=== PATIENT | male | born 1970 | race Caucasian/White ===

== ENCOUNTER → 2016-06-01 | Outpatient (CLI) | payer BC, MEDICARE ==
[2015-04-01 10:45] VITALS: BP 130/62
[~2016-06-01] MED LIST: BENA1TAB5 PO; CLON0.5T PO; DOXE50CA PO; FERR-26 PO; FLUO40CA2 PO; HYDR-2762 PO; INSU100C4 SQ; INSU100V13 SQ; LEVO100T PO; LEVO25TA2 PO; LITH150C PO; LITH450T PO; META800T21 PO; OXYC-244 PO; POTA20TA12 PO; SITA1TAB11 PO; TIZA4CAP3 PO; WARF2TAB7 PO; ZIPR20CA2 PO; ZIPR40CA2 PO; doxipen; doxipen PO; flexeril; geodon PO; hydrocodone
--- NOTE | 2016-06-02 13:56 | PAIN ---
DATE OF SERVICE: 06/01/2016 DIAGNOSES: Lumbar degenerative disk disease, lumbar spinal stenosis and spondylosis. HISTORY OF PRESENT ILLNESS: The patient is a 46-year-old male who returns for followup, status post medication management with oxycodone and Zanaflex. The patient reports he is doing very well with this, still has some days it worsen, most days doing well, reports about 80% improvement with medications on his own without side effects. The patient reports some worse pain with sitting across, low back into the hips primarily, but it is 8 on a scale of 10 with sitting. The patient reports no new motor or sensory deficits. No new bowel or bladder incontinence or other complaints. He has been doing very well on his medication regimen with oxycodone up to 4 days again without side effects and has had appropriate K-TRACS reporting today and appropriate urinalysis today. PHYSICAL EXAMINATION: VITAL SIGNS: The patient's blood pressure 134/88, pulse 66, respirations 18, temperature is 97.4 degrees Fahrenheit. Weight is 298 pounds. GENERAL: The patient is awake, alert, oriented, appropriate, very pleasant demeanor. HEENT: Head shows normocephalic, atraumatic. Extraocular movements are intact, symmetrical. Oral cavity, mucous membranes are moist and pink. Dentition is intact. NECK: Shows anterior throat supple without palpable lymphadenopathy. Swallow reflex is symmetrical. Neck shows full rotation and motion of cervical spine without difficulty or tenderness including extension and flexion. CHEST: Shows normal inspection. Breath sounds are clear to auscultation bilaterally. HEART: Shows S1, S2 clear. No murmurs auscultated. ABDOMEN: Soft, nontender, nondistended, obese without ___ rebound or guarding demonstrate. BACK: The patient's back shows spine grossly midline. ____ thoracic kyphosis. Mild flattening ____ lumbar lordotic curve. No previous bruises, lesions, rashes or scars noted. Lumbar paraspinous musculature appears roughly symmetrical on inspection. With palpation it is moderately tender in the middle ____ distribution of the paraspinous muscles bilaterally, but without radiation. No tenderness over the spinous process, sacrum or sacroiliac regions. The patient has good rotation and motion ____ extension and flexion without significant pain reported. Lower extremity show deep tendon reflexes 1+ in the patellar and tendo calcaneus tendons. Motor exam is strong with 5/5 dorsiflexion and extension, quadriceps and hamstring flexion is intact. Peripheral pulses are 1+ posterior tibial and dorsalis pedis pulses. No peripheral edema is noted bilaterally. Options were discussed with the patient. The patient's old chart was reviewed as his current medication regimen and updated. Current review of systems updated today as well. We will refill the patient's oxycodone 7.5 mg with instructions, side effects to be aware of, also Zanaflex 1-2 tablets 4 mg as needed up to 3 times daily. The patient was cautioned as to the side effects of the medications, was also encouraged to maintain hydration and avoid any constipation issues as he is not reporting any at this time, but also encouraged to increase heat and stretching with his low back and walking and stretching as well as tolerated and exercise as tolerated. The patient understands and agrees. We will follow up in approximately 90 days or sooner if necessary. KOFI BYRD MD DR: AIDEN/ritesh JOB#: [id number] / [id number]
== END | disposition home or self-care (01) ==
LOC: PNCL 11:10
PROVIDERS: ATTEND Anesthesiology
DX: M51.36 Other intervertebral disc degeneration, lumbar region (principal); M48.06 Spinal stenosis, lumbar region; M47.896 Other spondylosis, lumbar region
CPT/HCPCS: G0463

== ENCOUNTER → 2016-08-16 | Outpatient (CLI) | payer BC, MEDICARE ==
[2015-04-01 10:45] VITALS: BP 130/62
[~2016-08-16] MED LIST changes: -LEVO25TA2 PO; +LEVO25TA55 PO
--- NOTE | 2016-08-16 16:48 | KCIC ---
PROCEDURE MR of the right shoulder HISTORY Right shoulder pain. Limited range of motion and stiffness. TECHNIQUE Routine multiplanar sequences are obtained. COMPARISON None FINDINGS The acromioclavicular joint is mildly degenerative. There is mild to moderate motion degradation. Diffuse thickening and increased signal of the rotator cuff compatible with tendinosis. Small undersurface tear of the anterior supraspinatus tendon footprint about 30 percent deep and 12 mm AP diameter. No full-thickness rotator cuff tear. Mild partial tearing at the upper subscapularis tendon attachment. No significant subdeltoid bursal effusion. Trace glenohumeral joint fluid. Severe glenohumeral joint primary osteoarthritis. Tearing of the superior, posterior, anterior and probably inferior labrum. Biceps tendinosis with thickening and signal. Partial tearing at the bicipital groove entrance but no complete rupture. Small intraosseous cyst at the greater tuberosity. No evidence acute macro fracture or aggressive bone destruction. IMPRESSION 1. Rotator cuff tendinosis. Small partial undersurface tear of the anterior supraspinatus footprint. Partial tear of upper subscapularis tendon insertion. 2. Circumferential or nearly circumferential labral tear. 3. Severe primary osteoarthritis at the glenohumeral joint. 4. Biceps tendinosis with partial tear. Electronically signed by: Adam Mills MD (August 16, 2016 16:46:47)
== END | disposition home or self-care (01) ==
LOC: KCIC MRI 15:40
PROVIDERS: ATTEND Nurse Practitioner Family
DX: M19.011 Primary osteoarthritis, right shoulder (principal)
CPT/HCPCS: 73221

== ENCOUNTER → 2016-08-19 | Outpatient (CLI) | payer BC, MEDICARE ==
[2015-04-01 10:45] VITALS: BP 130/62
--- NOTE | 2016-08-19 11:54 | PAIN ---
DATE OF SERVICE: 08/19/2016 DIAGNOSES: Lumbar degenerative disk disease with lumbar spinal stenosis and spondylosis. HISTORY OF PRESENT ILLNESS: The patient is a 46-year-old male, who returns for followup status post medication management with both oxycodone and Zanaflex. The patient reports he is doing very well with this, been on very stable regimen, with some increased pain in his right shoulder. He is having then evaluated again with his orthopedic surgeon next week and they are potentially causing surgery depending on his MRI results, which he does not have back yet. The patient reports he is doing fairly well as his low back pain and his bilateral knee pain. The patient reports the pain is at 8-9 on a scale of 10, that is associated with shoulder, low back, pain about 2-3 on a scale 10 with medication. The patient reports no side effects with the medications, doing very well, staying hydrated, has actually lost 7 pounds since his last visit. He has been trying to eat smaller meals and ____ eats more specifically. The patient reports no new motor or sensory deficits, no new bowel or bladder incontinence or other complaints. Reports pain in his low back and legs, sharp shooting pain in his right shoulder, constant severe unbearable pain. PHYSICAL EXAMINATION: VITAL SIGNS: The patient's blood pressure 129/63, pulse 60, respirations are 18, temperature 98.2 degrees Fahrenheit, height is 5 feet 7 inches, weight is 285 pounds. GENERAL: The patient is awake, alert, oriented, appropriate, very pleasant demeanor. HEENT: Head shows normocephalic, atraumatic. Extraocular movements are intact and symmetrical. Oral cavity, mucous membranes are moist and pink. Dentition is intact. NECK: Shows anterior throat supple without palpable lymphadenopathy noted. Swallow reflex is symmetrical. CHEST: Shows normal on inspection. Breath sounds clear to auscultation bilaterally. HEART: Shows S1 and S2 clear. ABDOMEN: Soft, nontender, nondistended, obese, but without rebound or guarding demonstrated. BACK: Shows spine grossly midline. Slight exaggeration of thoracic kyphosis and mild flattening of lumbar lordotic curvature. Lumbar paraspinous muscle shows diffuse tenderness with palpation in the middle and lower lumbar distribution bilaterally without radiation. No tenderness over the sacrum and sacroiliac regions. The patient shows good rotational motion both laterally as well as extension and flexion of lumbar spine without difficulty. LOWER EXTREMITIES: Showed deep tendon reflexes 1+ in the patellar and tendo calcaneus tendons are equal. Motor exam is strong with 5/5 dorsiflexion, extension, quadriceps and hamstring flexion and equal. Options were discussed with the patient and the patient's old chart was reviewed as his current medication regimen updated. Current review of systems updated today as well. We will refill the patient's oxycodone as well as Zanaflex with instructions and side effects to aware. The patient has had appropriate K-TRACS reporting today as well as appropriate urinalysis to date. I encouraged to continue weight loss as well with the patient and he will follow up with his orthopedic surgery on Tuesday regarding his right shoulder and ____ surgery is being scheduled. KOFI BYRD MD DR: AIDEN/ritesh JOB#: [id number] / [id number]
== END | disposition home or self-care (01) ==
LOC: PNCL 10:04
PROVIDERS: ATTEND Anesthesiology
DX: M51.36 Other intervertebral disc degeneration, lumbar region (principal); M48.06 Spinal stenosis, lumbar region; M47.896 Other spondylosis, lumbar region
CPT/HCPCS: 99212

== ENCOUNTER → 2016-10-14 | Outpatient (CLI) | payer BC, MEDICARE ==
[2015-04-01 10:45] VITALS: BP 130/62
[~2016-10-14] MED LIST changes: +META-21 PO; -META800T21 PO; -OXYC-244 PO; +OXYC-327 PO
== END | disposition home or self-care (01) ==
LOC: PNCL 10:16
PROVIDERS: ATTEND Anesthesiology
DX: M48.06 Spinal stenosis, lumbar region (principal); M51.36 Other intervertebral disc degeneration, lumbar region
CPT/HCPCS: 99212

== ENCOUNTER → 2016-11-05 | Outpatient (CLI) | payer BC, MEDICARE ==
[2015-04-01 10:45] VITALS: BP 130/62
--- NOTE | 2016-11-05 13:57 | KCIC ---
Three-view left ankle radiographs 11/05/2016 CLINICAL HISTORY: Left ankle pain for last several days. AP, lateral and oblique radiographs of the left ankle were obtained. The left ankle mortise is intact. No fracture or dislocation is seen. Mild degenerative changes are seen involving the left ankle joint. Mild to moderate enthesophyte formation is seen involving the posterior left calcaneus. Calcification of the left posterior tibial artery is noted. IMPRESSION: Degenerative changes are seen on the left ankle as above. No acute osseous abnormality is seen. Electronically signed by: Kaveh Murdock MD (11/05/2016 1:54 PM) [facility]-KC[facility]
== END | disposition home or self-care (01) ==
LOC: KCIC 12:27
PROVIDERS: ATTEND Nurse Practitioner Family
DX: M19.072 Primary osteoarthritis, left ankle and foot (principal)
CPT/HCPCS: 73610

== ENCOUNTER → 2016-12-09 | Outpatient (CLI) | payer BC, MEDICARE ==
[2015-04-01 10:45] VITALS: BP 130/62
--- NOTE | 2016-12-09 18:18 | PAIN ---
DATE OF SERVICE: 12/09/2016 DIAGNOSES: Lumbar degenerative disk disease, lumbar spinal stenosis, lumbar spondylosis. HISTORY OF PRESENT ILLNESS: The patient is a 46-year-old male who returns for followup status post medication management ____ Zanaflex. The patient reports he has been doing quite well with this approximately ____ pounds. He feels better. He reports he is getting ready to have a left total knee replacement in the next 1 or 2 months. He has not scheduled this with his orthopedist, Dru. He is in the process of doing this. The patient reports that otherwise he is doing very well, he is getting around fairly well, his left knee has been giving some trouble, but otherwise his low back, mid back pain has been giving some problems but well controlled with the current medication regimen. The patient reports pain as a 9 on a scale of 10 at its worse mostly in the left knee, 8 on average, is about 7 on a scale of 10 at its least. The patient reports he does not sleep well at night, but reports that the knee has been most painful. His back does not usually awaken him from sleep, but he does report some cold on his knee and he changes positions. The patient reports he does not think that the pain is from his back as he ____ sleeping, but occasionally he awaken up with his knee, throbbing on the left side. The patient reports the pain in his back is tight stabbing and radiating constant. We discussed interventional techniques with the patient. He reports he has had these in the past. He is not interested in this as has done quite well on this medication regimen, has had appropriate K-TRACS reporting as well as appropriate urinalysis to date as well. PHYSICAL EXAMINATION: VITAL SIGNS: Today, the patient's blood pressure is 145/85, pulse 85, respirations are 18, temperature 98.3 degrees Fahrenheit, weight is 283 pounds. GENERAL: The patient is awake, alert, oriented, appropriate, very pleasant demeanor. HEENT: Head shows normocephalic, atraumatic. Extraocular movements are intact, symmetrical. Oral cavity, mucous membranes are moist and pink. Dentition is intact. NECK: Shows anterior throat supple. Swallow reflex is symmetrical. Neck shows full rotational motion of the cervical spine without difficulty or tenderness or limitation. CHEST: Shows normal on inspection. Breath sounds are clear to auscultation bilaterally. HEART: Shows S1 and S2 clear. No murmurs auscultated. ABDOMEN: Soft, obese, nontender, nondistended. No palpable organomegaly. No rebound or guarding demonstrated. BACK: Shows spine grossly midline. Normal appearing thoracic kyphosis and lumbar lordotic curvature. Lumbar paraspinous muscle shows some mild tenderness with palpation throughout the upper, middle and lower distribution, more prominent in lower distribution of the paraspinous muscles, again diffusely without radiation. No tenderness over the spinous processes, sacrum or sacroiliac regions. LOWER EXTREMITIES: Show deep tendon reflexes at 1+ in the patellar and tendo calcaneus tendons. Motor exam is strong with dorsiflexion and extension rated at 5/5 as quadriceps and hamstring flexion. Peripheral pulses are 1+ posterior tibial bilaterally. Options were discussed with the patient and the patient's old chart was reviewed as his current medication regimen updated. Current review of systems updated today as well. We will proceed with refilling the patient's oxycodone for a 2-month prescription, also Zanaflex with instructions, side effects to be aware of discussed with use of this medication. The patient also encouraged to increase his activity as tolerated. He was counseled as weight loss with better dietary habits. The patient reports he is making strides towards this, also hydration. Discussed the risk of constipation with his pain medication as well. The patient understands and will follow up as scheduled. KOFI BYRD MD DR: AIDEN/ritesh JOB#: [id number] / [id number]
== END | disposition home or self-care (01) ==
LOC: PNCL 11:17
PROVIDERS: ATTEND Anesthesiology
DX: M51.16 Intervertebral disc disorders with radiculopathy, lumbar region (principal); M48.06 Spinal stenosis, lumbar region; M47.9 Spondylosis, unspecified
CPT/HCPCS: 99212

== ENCOUNTER → 2016-12-21 | Outpatient (CLI) | payer BC, MEDICARE ==
[2015-04-01 10:45] VITALS: BP 130/62
--- NOTE | 2016-12-21 14:00 | EKG ---
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
[2016-12-21 14:14] LABS: BASO % 1 % (0-3); EOS % 2 % (0-3); HEMATOCRIT 41.8 % (39.0-53.0); HEMOGLOBIN 13.8 g/dL (13.0-17.5); LYMPH # 1.5 x10^3/uL (1.0-4.8); LYMPH % 29 % (24-48); MEAN CORPUSCULAR HEMOGLOBIN 28 pg (25-35); MEAN CORPUSCULAR HGB CONC 33 g/dL (31-37); MEAN CORPUSCULAR VOLUME 85 fL (79-100); MONO % 9 % (0-9); NEUT % 60 % (31-73); PLATELET COUNT 183 x10^3/uL (140-400); RED BLOOD COUNT 4.94 x10^6/uL (4.30-5.70); RED CELL DISTRIBUTION WIDTH 13.9 % (11.5-14.5); WHITE BLOOD COUNT 5.3 x10^3/uL (4.0-11.0)
[2016-12-21 14:18] LABS: ALBUMIN 3.9 g/dL (3.4-5.0); BILIRUBIN,URINE NEGATIVE (NEG); CALCIUM 9.6 mg/dL (8.5-10.1); CREATININE 0.9 mg/dL (0.7-1.3); GFR 90.4; GLUCOSE,URINE NEGATIVE (NEG); NITRITE,URINE NEGATIVE (NEG); POTASSIUM 3.5 mmol/L (3.5-5.1); PROTEIN,URINE NEGATIVE (NEG-TRACE); UROBILINOGEN,URINE 0.2 mg/dL (0.2 mg/dL)
[2016-12-21 14:25] LABS: BACTERIA,URINE 0 /HPF (0-FEW); RBC,URINE 0 /HPF (0-2); SQUAMOUS EPITHELIAL CELL,UR OCC /LPF; WBC,URINE 0 /HPF (0-4)
[2016-12-21 14:28] LABS: PROTHROMBIN TIME PATIENT 12.8 SEC (11.7-14.0)
--- NOTE | 2016-12-21 14:28 | RAD ---
Chest, 2 views, 12/21/2016: History: Preop evaluation for knee surgery Comparison is made to a study from 04/01/2015. The heart is at the upper limits of normal in size. The pulmonary vascularity is normal. No pulmonary infiltrates are seen. There is no evidence of pleural fluid. Mild spurring is present in the spine. IMPRESSION: No acute cardiopulmonary abnormality is detected.
== END | disposition home or self-care (01) ==
LOC: SURGPAT 13:09
PROVIDERS: ATTEND Orthopaedic Surgery
DX: Z01.818 Encounter for other preprocedural examination (principal); S83.422D Sprain of lateral collateral ligament of left knee, subsequent encounter; Z96.652 Presence of left artificial knee joint; X58.XXXD Exposure to other specified factors, subsequent encounter
CPT/HCPCS: 36415; 71020; 80048; 81001; 82040; 83036; 85025; 85610; 85651; 85730; 87641; 93005

== ENCOUNTER → 2017-01-03 | Outpatient (CLI) | payer BC, MEDICARE ==
[2015-04-01 10:45] VITALS: BP 130/62
[~2017-01-03] MED LIST changes: +CELE200C PO; +DEXAMETHASONE SOD PHOS 20 MG/5 ML VIAL. ONE; +GLYCOPYRROLATE 1 MG/5 ML VIAL. ONE; +LABETALOL 20 MG/4 ML DISP.SYRIN. ONE; +LIDOCAINE 2% PF Vial for OR 5 ML VIAL. ONE; +MIDAZOLAM HCL/PF 2 MG/2 ML VIAL. ONE; +NEOSTIGMINE METHYLSULFATE 5 MG/5 ML SYRINGE. ONE; +ONDANSETRON PF 4 MG/2 ML VIAL. ONE; +PROPOFOL 20 ML IV ONE; +SEVOFLURANE > 120 MINUTES. IH ONE; +VECURONIUM BOLUS 10 MG VIAL. IV ONE; +WARF-78 PO; +fentaNYL PF VIAL 250 MCG/5 ML VIAL ONE
--- NOTE | 2017-01-03 13:55 | CARD ---
APPROVED REPORT EXAM: Two-dimensional and M-mode echocardiogram with Doppler and color Doppler. Other Information Quality : GoodHR: 89bpm Rhythm : NSR INDICATION Pre-Op Cardiac clearance RISK FACTORS Hypertension Obesity 2D DIMENSIONS RVDd3.4 (2.9-3.5cm)Left Atrium(2D)3.7 (1.6-4.0cm) IVSd0.9 (0.7-1.1cm)Aortic Root(2D)3.4 (2.0-3.7cm) LVDd4.8 (3.9-5.9cm)LVOT Diameter2.5 (1.8-2.4cm) PWd0.9 (0.7-1.1cm)LVDs2.8 (2.5-4.0cm) FS (%) 42.4 %SV78.7 ml LVEF(%)73.0 (>50%) Aortic Valve AoV Peak Freddie.172.4cm/sAoV VTI25.5cm AO Peak GR.11.9mmHgLVOT Peak Freddie.109.8cm/s AO Mean GR.6mmHgAVA (VMAX)3.01cm2 Mitral Valve MV E Dzqighzx95.2cm/sMV E Peak Gr.10mmHg MV DECEL [id number] A Sspjuefn37.7cm/s MV E Mean Gr.2mmHgE/A Ratio0.7 MV A [id number] Pulmonary Valve PV Peak Bmwuyldk958.9cm/s Pulmonary Vein S1 Muvrttpt71.3cm/sD2 Mybgllab98.9cm/s PVa [id number] LEFT VENTRICLE The left ventricle is normal size. There is normal left ventricular wall thickness. The left ventricu lar systolic function is normal and the ejection fraction is within normal range. The Ejection Fracti on is 73 %. There is normal LV segmental wall motion. Transmitral Doppler flow pattern is Grade I-abn ormal relaxation pattern. RIGHT VENTRICLE The right ventricle is normal size. There is normal right ventricular wall thickness. The right ventr icular systolic function is normal. ATRIA The left atrium size is normal. The right atrium size is normal. The interatrial septum is intact wit h no evidence for an atrial septal defect or patent foramen ovale as noted on 2-D or Doppler imaging. AORTIC VALVE The aortic valve is normal in structure and function. The aortic valve is trileaflet. Doppler and Col or Flow revealed no significant aortic regurgitation. There is no significant aortic valvular stenosi s. MITRAL VALVE The mitral valve is normal in structure and function. There is no evidence of mitral valve prolapse. There is no mitral valve stenosis. Doppler and Color Flow revealed no mitral valve regurgitation note d. TRICUSPID VALVE Doppler and Color Flow revealed no tricuspid valve regurgitation noted. There is no pulmonary hyperte nsion. PULMONIC VALVE The pulmonic valve is not well visualized but appears to open adequately. Doppler and Color Flow reve aled no pulmonic valvular regurgitation. There is no pulmonic valvular stenosis by spectral Doppler. GREAT VESSELS The aortic root is normal in size. The ascending aorta is normal in size. The pulmonary artery is nor mal. The IVC is normal in size and collapses >50% with inspiration. PERICARDIAL EFFUSION There is no evidence of significant pericardial effusion. Critical Notification Critical Value: No <Conclusion> The left ventricular systolic function is normal and the ejection fraction is within normal range. The Ejection Fraction is 73 %. Transmitral Doppler flow pattern is Grade I-abnormal relaxation pattern. The left atrium size is normal. The right atrium size is normal. The aortic valve is normal in structure and function. The aortic valve is trileaflet. The mitral valve is normal in structure and function. Doppler and Color Flow revealed no tricuspid valve regurgitation noted. There is no pulmonary hypertension. The pulmonic valve is not well visualized but appears to open adequately. Doppler and Color Flow revealed no pulmonic valvular regurgitation. There is no pulmonic valvular stenosis by spectral Doppler. There is no evidence of significant pericardial effusion.
== END | disposition home or self-care (01) ==
LOC: ECHO 12:18
PROVIDERS: ATTEND Internal Medicine Cardiovascular Disease
DX: Z01.810 Encounter for preprocedural cardiovascular examination (principal); Z82.49 Family history of ischemic heart disease and other diseases of the circulatory system
CPT/HCPCS: 93306; J1100; J2250; J2405; J2704; J2710; J3010; J3490; J2001

== ENCOUNTER 2017-01-04 06:30 | Inpatient (IN) | payer BC, MEDICARE ==
[~2017-01-04] VITALS: Ht 170.2 cm; Wt 127.9 kg
[2017-01-04] VITALS (10 sets, daily range): BP systolic 97–145; BP diastolic 67–97
[~2017-01-04 06:30] MED LIST changes: -CELE200C PO; +CELECOXIB 200 MG CAPSULE. PO PRN; -DEXAMETHASONE SOD PHOS 20 MG/5 ML VIAL. ONE; -GLYCOPYRROLATE 1 MG/5 ML VIAL. ONE; +HYDROcodone/APAP 7.5/325MG 1 TAB TABLET PO PRN; -LABETALOL 20 MG/4 ML DISP.SYRIN. ONE; -LIDOCAINE 2% PF Vial for OR 5 ML VIAL. ONE; -MIDAZOLAM HCL/PF 2 MG/2 ML VIAL. ONE; +MORPHINE SULFATE 5 MG, KETOROLAC 30 MG, ROPIVacaine 0.5% PF 60 ML, EPINEPHrine 0.5 MG i... INT ART ONE; -NEOSTIGMINE METHYLSULFATE 5 MG/5 ML SYRINGE. ONE; -ONDANSETRON PF 4 MG/2 ML VIAL. ONE; -PROPOFOL 20 ML IV ONE; -SEVOFLURANE > 120 MINUTES. IH ONE; +TRANEXAMIC ACID 1,000 MG in IV NS 50ML -- 1ST BAG INJ ONE; -VECURONIUM BOLUS 10 MG VIAL. IV ONE; -WARF-78 PO; -fentaNYL PF VIAL 250 MCG/5 ML VIAL ONE
[2017-01-04] MEDS ORDERED: WARF-78 PO (06:51)
[2017-01-04] MEDS ORDERED: CELE200C PO (06:52)
[2017-01-04] MEDS ORDERED: MORPHINE SULFATE 2 MG/ML DISP.SYRIN. IV PRN (07:00)
[2017-01-04] MEDS ORDERED: IV RINGERS,LACTATED 1000ML 1,000 ML IV SCH (07:00)
[2017-01-04] MEDS ORDERED: PROCHLORPERAZINE 10 MG/2 ML VIAL. IV PRN (07:00)
[2017-01-04] MEDS ORDERED: ONDANSETRON PF 4 MG/2 ML VIAL. IV PRN (07:00)
[2017-01-04] MEDS ORDERED: LIDOCAINE 1% PF 2 ML VIAL. ID PRN (07:00)
[2017-01-04] MEDS ORDERED: HYDROmorphone 2 MG/ML VIAL IV PRN (07:00)
[2017-01-04] MEDS ORDERED: fentaNYL PF VIAL 100 MCG/2 ML VIAL IV PRN ×3 (07:00→10:15)
[2017-01-04 07:42] LABS: PROTHROMBIN TIME PATIENT 12.5 SEC (11.7-14.0)
[2017-01-04] MEDS ORDERED: TRANEXAMIC ACID 1,000 MG in IV NS 50ML -- 2ND BAG INJ ONE (08:00)
[2017-01-04] MEDS ORDERED: traMADol 50 MG TABLET PO PRN ×2 (10:15)
[2017-01-04] MEDS ORDERED: oxyCODONE/APAP 5/325 1 TAB TABLET PO PRN (10:15)
[2017-01-04] MEDS ORDERED: diphenhydrAMINE 50 MG/ML VIAL IV PRN (10:15)
[2017-01-04] MEDS ORDERED: 0.9 % SODIUM CHLORIDE 10 ML DISP.SYRIN. IV PRN (10:15)
[2017-01-04] MEDS ORDERED: ACETAMINOPHEN 325 MG TABLET. PO PRN (10:15)
[2017-01-04] MEDS ORDERED: DEXTROSE 50% 25 GM / 50ML DISP.SYRIN. IV PRN ×2 (10:15→18:45)
[2017-01-04] MEDS ORDERED: MORPHINE SULFATE 4 MG/ML DISP.SYRIN. IV PRN ×2 (10:15)
[2017-01-04] MEDS ORDERED: ZOLPIDEM 5 MG TABLET. PO PRN (10:15)
[2017-01-04] MEDS ORDERED: clonazePAM 0.5 MG TABLET PO PRN (10:15)
[2017-01-04] MEDS ORDERED: oxyCODONE/APAP 7.5/325 1 TAB TABLET PO PRN ×2 (10:15)
[2017-01-04] MEDS ORDERED: CALCIUM CARBONATE 500 MG TAB.CHEW PO PRN (10:15)
--- NOTE | 2017-01-04 10:38 | PDOC4 ---
Operative Note Operative Note Date of surgery: 01/04/2017 Preoperative diagnosis painful left unicondylar knee arthroplasty with lateral degenerative change and insufficient ACL Postoperative diagnosis: Same Procedure: Revision unicondylar left knee arthroplasty to total knee arthroplasty Surgeon: Margarita Assist: Anuradha Anesthesia: Gen. endotracheal Estimated blood loss: 350 mL Complications: None Specimens: Cartilage surfaces to pathology Operative indications: Patient reports increasing left knee pain and instability with a remote unicondylar knee arthroplasty with clinically signs of lateral compartment where on x-ray and ACL insufficiency on clinical exam. I had covered with him risks benefits postoperative course of the suggested conversion to a total knee arthroplasty in the rationale for that procedure. The possible infection nerve or blood vessel damage premature wear or loosening medical or other anesthetic complications among others associated with the procedure. All his questions were answered he wants proceed with surgical evaluation and treatment Operative text: Patient was identified procedure verified patient placed in the supine position on the operating table. After adequate amounts of general endotracheal anesthesia were administered a thigh tourniquet was placed on the left lower extremity and the left lower extremity was prepped and draped in standard sterile fashion. After timeout was performed patient procedure identified and verified, a midline incision was made along the previous incision medial parapatellar approach was carried out patella was everted fat pad was excised ACL insufficiency and lateral where were verified femur was drilled for the intramedullary guide which was placed in standard position with a standard distal cut after the femoral component was removed with the no significant bone loss. Sizing was carried out at a size 4 and alignment carried out according to the epicondylar axis to avoid any malrotation. AP lateral chamfer cuts were then made ACL and PCL were excised and tibial cut was made with the extra medullary cutting jig following removal of the medial tibial component. Again no significant tibial bone loss occurred removing the tibial component and the cut allowed for a 13 mm flexion and extension gaps that were well-balanced. A size 4 femoral component cruciate stabilized and a size 4 tibial component were placed and trial fit patella was medialized and reamed with a size 32 mm trial patella lateral patellar bone was excised and trimmed to avoid any impingement excellent alignment ligament balance and stability were observed throughout tibia was drilled and broached and the following [employer] components were cemented in place with polymethylmethacrylate cement consisting of a size 4 tibial baseplate a size 4 cruciate stabilized Oxinium femur and a 13 mm cruciate stabilized spacer and a 32 mm patellar button were cemented in place excess cement was curetted away knee was held in extension following additional trial verification thorough irrigation carried out normal saline solution and a cruciate stabilized 13 mm polyethylene was snapped in place excellent flexion and extension stability patellofemoral tracking and ligament balance were noted throughout. Hemovac drain and pain catheter were placed pain catheter mixture was injected throughout the joint capsule area retinaculum was closed with a combination of interrupted #2 Ethibond suture and reinforced with a running #1 PDS strata fix suture. Subcutaneous closure with buried Vicryl suture subcuticular closure with #3 Monocryl strata fix and a yeimy dressing was placed patient was returned to recovery room in stable condition having tolerated procedure well tourniquet was not used during the procedure. Ashely aceves was present for the procedure and assisted in prepping draping retraction and skin closure THEE GOMEZ MD Jan 04, 2017 10:35
[2017-01-04] MEDS: fentaNYL PF VIAL 100 MCG/2 ML VIAL IV PRN ×4 (10:56→11:42)
--- NOTE | 2017-01-04 11:06 | RAD ---
Examination: 2 views of the left knee. History: History of postoperative placement. Comparison: 10/20/2016 Findings: Total knee arthroplasty changes in normal alignment. A drain is identified in the knee joint. 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
[2017-01-04] MEDS ORDERED: INSULIN ASPART 100 UNIT/ML 10ML VIAL. SQ STA (11:15)
--- NOTE | 2017-01-04 11:56 | HP ---
ADMIT DATE: 01/04/2017 CHIEF COMPLAINT: Left knee pain and instability. HISTORY OF PRESENT ILLNESS: The patient had a unicondylar knee arthroplasty medially done about 10 years ago and has had increased pain recently and instability. He has been unresponsive to attempted brace treatment for the instability and is noted to have some lateral compartment wear present. PAST MEDICAL HISTORY: Significant for hypertension, obesity, bipolar disorder, anxiety, chronic back pain, obstructive sleep disorder, prediabetes. PAST SURGICAL HISTORY: Significant for bilateral unicondylar knee arthroplasties and tonsil and adenoidectomy as well as previous knee arthroscopy. FAMILY HISTORY: Significant for his father , had bipolar disorder, hypertension, heart disease and cancer; uncle with mental illness; and mother alive with DJD. SOCIAL HISTORY: He is an infrequent smoker. Denies drug use. , with 3 children and is on disability. MEDICATIONS: List is reviewed. ALLERGIES: He has no known drug allergies. REVIEW OF SYSTEMS: Denies any chest pain, shortness of breath, fever, chills, recent illness, radiating pain, numbness, tingling. Positive for some left elbow pain. PHYSICAL EXAMINATION: VITAL SIGNS: Per his admission sheet. HEENT: Atraumatic, normocephalic. HEART: Regular rate and rhythm. LUNGS: Clear to auscultation bilaterally. ABDOMEN: Obese, benign. EXTREMITIES: Examination of lower extremities reveals laxity of the ACL and lateral compartment tenderness on the left knee, slight MCL laxity on the right knee, full range of motion on both normal hip and ankle alignment and stability bilaterally with intact motor function, distal pulses, sensation, reflexes, skin in both lower extremities throughout. IMAGING: X-rays show some lateral compartment wear in the left knee and otherwise well positioned unicondylar knee arthroplasty. IMPRESSION: Left knee pain status post previous unicondylar arthroplasty with lateral compartment wear and ACL insufficiency. TREATMENT PLAN: I had previously gone over with him in the clinic treatment options associated with this and recommended conversion to a total knee arthroplasty. All his questions were answered regarding this procedure and he wishes to proceed with surgical evaluation and treatment with [facility] admission to follow. THEE GOMEZ MD DR: KADE/ritesh JOB#: [id number] / [id number] FABIO Salinas MD
[2017-01-04] MEDS: IV DEXTROSE 5 %-0.45 % NACL 1,000 ML IV SCH ×2 (13:07→22:00)
[2017-01-04] MEDS: tiZANidine 4 MG TABLET. PO SCH ×2 (13:07→21:42)
[2017-01-04] MEDS: HYDROcodone/APAP 7.5/325MG 1 TAB TABLET PO PRN ×3 (13:08→21:46)
[2017-01-04] MEDS ORDERED: WARFARIN 7.5 MG TABLET. PO ONE (16:00)
[2017-01-04] MEDS: FERROUS SULFATE 325 MG TABLET. PO SCH (16:40)
[2017-01-04] MEDS: KETOROLAC 30 MG, BUPIVACAINE MPF 0.25% 20 ML, EPINEPHrine 0.5 MG in TOTAL VOLUME SYRING... INT ART SCH (17:52)
[2017-01-04] MEDS: INSULIN ASPART 300 UNITS/3 ML INSULN.PEN SQ SCH (19:31)
[2017-01-04] MEDS ORDERED: NON FORMULARY ITEM (Sitagliptin Phos/Metformin Hcl (Janumet 50-1,000 Mg Tablet) 1 TAB) PO SCH (21:00)
[2017-01-04] MEDS: DOXEPIN 150 MG PO SCH (21:41)
[2017-01-04] MEDS: LITHIUM CARBONATE ER 300 MG TABLET.ER PO SCH (21:42)
[2017-01-04] MEDS: CELECOXIB 200 MG CAPSULE. PO SCH (21:42)
[2017-01-05 02:30] VITALS: BP 148/83
[2017-01-05] MEDS: HYDROcodone/APAP 10/325 1 TAB TABLET PO PRN ×4 (03:06→21:19)
[2017-01-05] MEDS: PROCHLORPERAZINE 10 MG/2 ML VIAL. IV PRN ×3 (04:05→12:34)
[2017-01-05 05:34] LABS: HEMATOCRIT 32.9 % (39.0-53.0); HEMOGLOBIN 11.5 g/dL (13.0-17.5)
[2017-01-05 05:39] LABS: INR 1.3 (0.8-1.1)
[2017-01-05] MEDS: KETOROLAC 30 MG, BUPIVACAINE MPF 0.25% 20 ML, EPINEPHrine 0.5 MG in TOTAL VOLUME SYRING... INT ART SCH (05:54)
[2017-01-05] MEDS ORDERED: MAGNESIUM HYDROXIDE 2,400 MG/30 ML ORAL.SUSP. PO PRN (06:00)
[2017-01-05 06:05] VITALS: BP 152/94
[2017-01-05 06:06] VITALS: BP 130/85
[2017-01-05] MEDS: LEVOTHYROXINE 100 MCG TABLET PO SCH (07:15)
[2017-01-05] MEDS: INSULIN ASPART 300 UNITS/3 ML INSULN.PEN SQ SCH ×3 (08:00→17:09)
[2017-01-05] MEDS: IV DEXTROSE 5 %-0.45 % NACL 1,000 ML IV SCH (08:00)
[2017-01-05] MEDS: FERROUS SULFATE 325 MG TABLET. PO SCH ×2 (08:30→17:00)
[2017-01-05] MEDS: CELECOXIB 200 MG CAPSULE. PO SCH ×2 (08:30→21:14)
[2017-01-05] MEDS: tiZANidine 4 MG TABLET. PO SCH ×3 (08:30→21:14)
[2017-01-05] MEDS: MULTIVITAMIN with MINERAL TABLET. PO SCH (08:31)
[2017-01-05] MEDS: SENNOSIDES/DOCUSATE 8.6/50MG TABLET. PO SCH (08:32)
[2017-01-05] MEDS ORDERED: LINAGLIPTIN 5 MG TABLET PO SCH (09:00)
[2017-01-05] MEDS ORDERED: ONDANSETRON ODT 4 MG TAB.RAPDIS. PO PRN (15:00)
[2017-01-05] MEDS ORDERED: BISACODYL 10 MG SUPP.RECT. PR PRN (16:00)
[2017-01-05] MEDS ORDERED: WARFARIN 5 MG TABLET. PO ONE (16:00)
--- NOTE | 2017-01-05 17:59 | PDOC ---
PROGRESS NOTES Subjective Subjective Problems overnight: Doing well pain controlled, he says he actually is getting around better now than from either of his previous partial knee replacements Objective Vital Signs Vital Signs Date Time Temp Pulse Resp B/P (MAP) Pulse Ox O2 Delivery O2 Flow Rate FiO2 01/05/17 13:30 16 Room Air 01/05/17 06:06 68 130/85 (100) 01/05/17 06:05 98.2 97 98.2 01/04/17 13:45 2.0 Physical Exam Incision clean dry intact excellent motion and good strength distal neurovascular status intact Labs Laboratory Tests Test 01/04/17 06:55 01/04/17 07:05 01/04/17 10:28 01/04/17 16:25 Prothrombin Time 12.5 SEC (11.7-14.0) Prothromb Time International Ratio 1.0 (0.8-1.1) Activated Partial Thromboplast Time 34 SEC (24-38) Glucose (Fingerstick) 164 mg/dL (70-99) 256 mg/dL (70-99) 363 mg/dL (70-99) Test 01/04/17 19:24 01/04/17 21:00 01/05/17 04:55 01/05/17 06:31 Glucose (Fingerstick) 291 mg/dL (70-99) 255 mg/dL (70-99) 186 mg/dL (70-99) Hemoglobin 11.5 g/dL (13.0-17.5) Hematocrit 32.9 % (39.0-53.0) Mean Corpuscular Hemoglobin Concent 35 g/dL (31-37) Prothrombin Time 15.0 SEC (11.7-14.0) Prothromb Time International Ratio 1.3 (0.8-1.1) Test 01/05/17 11:39 01/05/17 16:49 Glucose (Fingerstick) 237 mg/dL (70-99) 209 mg/dL (70-99) Laboratory Tests Test 01/04/17 19:24 01/04/17 21:00 01/05/17 04:55 01/05/17 06:31 Glucose (Fingerstick) 291 mg/dL (70-99) 255 mg/dL (70-99) 186 mg/dL (70-99) Hemoglobin 11.5 g/dL (13.0-17.5) Hematocrit 32.9 % (39.0-53.0) Mean Corpuscular Hemoglobin Concent 35 g/dL (31-37) Prothrombin Time 15.0 SEC (11.7-14.0) Prothromb Time International Ratio 1.3 (0.8-1.1) Test 01/05/17 11:39 01/05/17 16:49 Glucose (Fingerstick) 237 mg/dL (70-99) 209 mg/dL (70-99) Assessment Assessment POD# [1], S/P [revision unicondylar to total knee arthroplasty left] Problems: Plan Plan of Care Continue mobilize with physical therapy Coumadin per anticoagulation clinic Home when stable and safe with therapy with planned home health versus outpatient THEE GOMEZ MD Jan 05, 2017 17:59
[2017-01-05 18:35] VITALS: BP 136/93
[2017-01-05] MEDS: DOXEPIN 150 MG PO SCH (21:13)
[2017-01-05] MEDS: LITHIUM CARBONATE ER 300 MG TABLET.ER PO SCH (21:14)
[2017-01-06] MEDS: HYDROcodone/APAP 7.5/325MG 1 TAB TABLET PO PRN (01:16)
[2017-01-06 05:00] VITALS: BP 108/56
[2017-01-06 05:02] LABS: HEMOGLOBIN 10.8 g/dL (13.0-17.5)
[2017-01-06] MEDS: HYDROcodone/APAP 10/325 1 TAB TABLET PO PRN ×3 (05:05→12:03)
[2017-01-06 05:10] LABS: INR 1.3 (0.8-1.1); PROTHROMBIN TIME PATIENT 15.4 SEC (11.7-14.0)
[2017-01-06] MEDS: SENNOSIDES/DOCUSATE 8.6/50MG TABLET. PO SCH (07:29)
[2017-01-06] MEDS: FERROUS SULFATE 325 MG TABLET. PO SCH (07:52)
[2017-01-06] MEDS: CELECOXIB 200 MG CAPSULE. PO SCH (07:52)
[2017-01-06] MEDS: MULTIVITAMIN with MINERAL TABLET. PO SCH (07:52)
[2017-01-06] MEDS: LEVOTHYROXINE 100 MCG TABLET PO SCH (07:52)
[2017-01-06] MEDS: tiZANidine 4 MG TABLET. PO SCH ×2 (07:52→14:44)
[2017-01-06] MEDS: INSULIN ASPART 300 UNITS/3 ML INSULN.PEN SQ SCH ×2 (07:59→12:00)
[2017-01-06] MEDS ORDERED: FERR-26 PO (11:10)
[2017-01-06] MEDS ORDERED: SENN1TAB21 PO (11:11)
[2017-01-06] MEDS ORDERED: WARFARIN 7.5 MG TABLET. PO ONE (13:00)
[2017-01-06 13:09] VITALS: BP 105/68
--- NOTE | 2017-01-06 14:16 | PDOC ---
ORTHO PROGRESS NOTES Subjective Patient is doing well. Pain is controlled. He anticipates discharging home today. His pain management doctor, Dr. Anibal Johnson Already has scripts written for him. No concerns or questions Post-op Day: 2 (left total knee revision) Vitals Vital Signs Date Time Temp Pulse Resp B/P (MAP) Pulse Ox O2 Delivery O2 Flow Rate FiO2 01/06/17 13:09 97.3 74 18 105/68 (80) 99 Room Air 97.3 Labs Laboratory Tests Test 01/04/17 16:25 01/04/17 19:24 01/04/17 21:00 01/05/17 04:55 Glucose (Fingerstick) 363 mg/dL (70-99) 291 mg/dL (70-99) 255 mg/dL (70-99) Hemoglobin 11.5 g/dL (13.0-17.5) Hematocrit 32.9 % (39.0-53.0) Mean Corpuscular Hemoglobin Concent 35 g/dL (31-37) Prothrombin Time 15.0 SEC (11.7-14.0) Prothromb Time International Ratio 1.3 (0.8-1.1) Test 01/05/17 06:31 01/05/17 11:39 01/05/17 16:49 01/05/17 20:54 Glucose (Fingerstick) 186 mg/dL (70-99) 237 mg/dL (70-99) 209 mg/dL (70-99) 230 mg/dL (70-99) Test 01/06/17 04:44 01/06/17 06:48 01/06/17 11:58 Hemoglobin 10.8 g/dL (13.0-17.5) Hematocrit 32.0 % (39.0-53.0) Mean Corpuscular Hemoglobin Concent 34 g/dL (31-37) Prothrombin Time 15.4 SEC (11.7-14.0) Prothromb Time International Ratio 1.3 (0.8-1.1) Glucose (Fingerstick) 197 mg/dL (70-99) 190 mg/dL (70-99) Laboratory Tests Test 01/05/17 16:49 01/05/17 20:54 01/06/17 04:44 01/06/17 06:48 Glucose (Fingerstick) 209 mg/dL (70-99) 230 mg/dL (70-99) 197 mg/dL (70-99) Hemoglobin 10.8 g/dL (13.0-17.5) Hematocrit 32.0 % (39.0-53.0) Mean Corpuscular Hemoglobin Concent 34 g/dL (31-37) Prothrombin Time 15.4 SEC (11.7-14.0) Prothromb Time International Ratio 1.3 (0.8-1.1) Test 01/06/17 11:58 Glucose (Fingerstick) 190 mg/dL (70-99) Notes patient is awake and alert sitting up in bed. Breathing unlabored, no acute distress. Incision covered with dressing, dressing is intact no drainage. Moderate localized edema. Neurovascular intact left lower extremity Problems: (1) History of arthroplasty of left knee (2) Degenerative arthritis of left knee Assessment and Plan Home today Pain med scripts per Dr. Johnson already written Follow up two weeks Problem Qualifiers (1) Degenerative arthritis of left knee: Osteoarthritis type: primary Qualified Codes: M17.12 - Unilateral primary osteoarthritis, left knee AARON BECKER APRN Jan 06, 2017 14:16
--- NOTE | 2017-01-07 08:21 | PATHOLOGY ---
PATHOLOGY REPORT * * * * * * * * FINAL DIAGNOSIS: "Left knee bone and tissue", removal: - Degenerative osteoarthritis. ([facility]; 01/06/2017) REPORT ELECTRONICALLY SIGNED BY: Raymond Rivera M.D. DATE/TIME: 01/07/2017 08:20 * * * * * * * * GROSS PATHOLOGY: Received in formalin labeled "Anastacia Reyes Jr., left knee bone and tissue," are multiple segments of bone, including tibial plateau, measuring 13.2 x 12.0 x 2.1 cm in aggregate dimensions admixed with soft tissue; meniscus is present. Upon extensive sectioning, eburnation of the articulating surfaces is not grossly evident. Reflow Operator sections of bone and soft tissue are submitted in cassette A1, following decalcification. ([facility]; 01/05/2017) INITIAL CPT CODE(S): A; 35744, 00524 Professional services [place] [facility] [place] [address] Technical services performed by [facility] at [address] [place] [address]. SPECIMEN(S) RECEIVED: A.Left knee bone and tissue CLINICAL HISTORY: Left knee pain and instability PATIENT: ANASTACIA REYES JR /AGE: 12 1970 (Age: 46) PATIENT #: [id number] ALT CASE #: SPECIMEN COLLECTION DATE: 01/04/2017 SPECIMEN RECEIVED DATE: 01/04/2017 [facility] - [address] [place] [address] - PHONE: [phone] * * * END OF REPORT * * *
== END 2017-01-06 15:11 | disposition home or self-care (01) | DRG 467 ==
LOC: OPSVCIP 06:30 → 4 SOUTHEST 12:11
PROVIDERS: ADMIT Orthopaedic Surgery; ATTEND Orthopaedic Surgery
PROC: 0SRD0J9 Replacement of Left Knee Joint with Synthetic Substitute, Cemented, Open Approach (ICD-10-PCS; 2017-01-04)
PROC: 0SPD0JZ Removal of Synthetic Substitute from Left Knee Joint, Open Approach (ICD-10-PCS; principal; 2017-01-04 07:30)
DX: M17.12 Unilateral primary osteoarthritis, left knee (principal); Z68.41 Body mass index [BMI] 40.0-44.9, adult; I10 Essential (primary) hypertension; F17.200 Nicotine dependence, unspecified, uncomplicated; F31.9 Bipolar disorder, unspecified; Z80.9 Family history of malignant neoplasm, unspecified; Z82.49 Family history of ischemic heart disease and other diseases of the circulatory system; E66.9 Obesity, unspecified; F41.9 Anxiety disorder, unspecified; G47.9 Sleep disorder, unspecified; G89.29 Other chronic pain
CPT/HCPCS: 36415; 73560; 82962; 85014; 85018; 85610; 85730; 86850; 86900; 86901; 88305; 88311; C1713; J0171; J0690; J0780; J1815; J1885; J2270; J2795; J3010; J3490; J7030; J7120; Q0162; 97116; 97150; 97530; C1769

== ENCOUNTER → 2017-02-03 | Outpatient (CLI) | payer BC, MEDICARE ==
[2017-01-06 13:09] VITALS: BP 105/68
[~2017-02-03] MED LIST changes: +CELE200C PO; -CELECOXIB 200 MG CAPSULE. PO PRN; -HYDROcodone/APAP 7.5/325MG 1 TAB TABLET PO PRN; -MORPHINE SULFATE 5 MG, KETOROLAC 30 MG, ROPIVacaine 0.5% PF 60 ML, EPINEPHrine 0.5 MG i... INT ART ONE; +SENN1TAB21 PO; -TRANEXAMIC ACID 1,000 MG in IV NS 50ML -- 1ST BAG INJ ONE; +WARF-78 PO
--- NOTE | 2017-02-03 20:30 | PAIN ---
DATE OF SERVICE: 02/03/2017 DIAGNOSES: Lumbar spinal stenosis with degenerative disk disease and lumbar spondylosis. HISTORY OF PRESENT ILLNESS: The patient is a 46-year-old male, who returns for followup status post medication management with oxycodone 7.5 mg and Zanaflex. The patient about 3 weeks ago had his left knee replaced and is doing quite well. He has had good recovery. We covered his pain medication for his postop period, which he reports worked fairly well. Reports still significant pain in the low back, mid back, and upper back, but is an 8 on a scale of 10 at its worst, 6 on average, is a 5 at its least, and is a 5 today. The patient reports it is tingling, constant, severe. Again, his knee is feeling much better and he has got good rehab and increased use and motion of it. The patient reports no new motor or sensory deficits, no new bowel or bladder incontinence or other complaints. The patient has been on very stable regimen with his medications, but reports that the oxycodone is not helping quite as much as it used to, is about a 50%; however, normally it be about a 70-80% level. PHYSICAL EXAMINATION: VITAL SIGNS: The patient's blood pressure 132/82, pulse 81, respirations 18, temperature 97.4 degrees Fahrenheit, height is 5 feet 7 inches, weighs 270 pounds. GENERAL: The patient is awake, alert, oriented, appropriate, very pleasant demeanor. HEENT: Shows normocephalic, atraumatic. Extraocular movements are intact and symmetrical. Oral cavity shows mucous membranes moist and pink. Dentition is intact. NECK: Shows anterior throat supple without palpable lymphadenopathy noted. Swallow reflex is symmetrical. CHEST: Shows normal on inspection. Breath sounds are clear to auscultation bilaterally. HEART: Shows S1 and S2 clear. ABDOMEN: Soft, nontender, nondistended. No palpable organomegaly. There is no rebound or guarding demonstrated. BACK: Shows spine grossly in midline. Normal appearing thoracic kyphosis, lumbar lordotic curvature. Paraspinous musculature in the lumbar distribution is moderately tender with palpation, but only diffusely, but firm musculature bilaterally and tender in middle and lower distribution, more than the upper distribution of paraspinous muscles in the lumbar distribution. No tenderness over the spinous processes, sacrum or sacroiliac regions. LOWER EXTREMITIES: Showed deep tendon reflexes 1+ in the patellar and tendo calcaneus tendons. Well healed surgical scar is noted over the left knee. Motor exam is approximately 4 on a scale of 5 on the left with some pain reported with his left knee with quadriceps and hamstring flexion, but intact 5/5 on the right. Peripheral pulses are 1+ posterior tibial and dorsalis pedis pulses. No peripheral edema is noted. No clubbing, no cyanosis. Options were discussed with the patient. The patient's old chart was reviewed as was his current medication regimen and updated. Current review of systems is updated today as well. We will refill the patient's medications, but change to hydrocodone as he seems to be developing some physiologic tolerance to the oxycodone. The patient was given instruction as well as side effects to be aware of with the medication, also refill Zanaflex with instructions and side effects discussed as well. The patient is encouraged to increase activity, stretching and strengthening exercises, also encourage weight loss and offered to set up for physical therapy or water therapy. The patient would like to wait on this and see what he can do on his own first. We will have him followup, was given a 2-month prescription. We will have him follow up in 2 months as scheduled or sooner if necessary. KOFI BYRD MD DR: AIDEN/ritesh JOB#: [id number] / [id number]
== END | disposition home or self-care (01) ==
LOC: PNCL 11:05
PROVIDERS: ATTEND Anesthesiology
DX: M51.16 Intervertebral disc disorders with radiculopathy, lumbar region (principal); M47.896 Other spondylosis, lumbar region; M48.061 Spinal stenosis, lumbar region without neurogenic claudication
CPT/HCPCS: 99212

== ENCOUNTER → 2017-03-31 | Outpatient (CLI) | payer BC, MEDICARE ==
--- NOTE | 2017-04-01 02:13 | PAIN ---
DATE OF SERVICE: 03/31/2017 PROGRESS NOTE FOR PAIN CLINIC DIAGNOSES: Lumbar degenerative disk disease, lumbar spinal stenosis and lumbar spondylosis. HISTORY OF PRESENT ILLNESS: The patient is a 47-year-old male who returns for followup status post medication management with hydrocodone. The patient reports he has been doing fairly well with this but over the past month or so, the pain has been increased significantly without as much decrease in pain with the use of the medication. The patient appears to be developing some physiologic tolerance to it. Reports that he is still taking the medication but is not doing really well, only about a 30%-40% decrease in pain whereas normally 50 or better. The patient reports still pain in the low back, bilateral lower extremities, hips as well as the base of neck and shoulders. He reports waking her sleep about 4 times at night now when he lays on his right side, left side, back or on his stomach. The patient reports that the pain is 8 on a scale 10 at its worst, 8 on average and 8 at its least and is 8 today. The patient reports sharp, aching, radiating and constant and becoming more constant in the low back, especially. The patient reports no new motor or sensory deficits and no new bowel or bladder incontinence or other complaints. PHYSICAL EXAMINATION: VITAL SIGNS: The patient's blood pressure 173/107, pulse 78, respirations are 20, temperature 97.7 degrees Fahrenheit, 5 feet 7 inches and weight is 273 pounds. GENERAL: The patient is awake, alert, oriented, appropriate and very pleasant demeanor. HEENT: Head shows normocephalic and atraumatic. Extraocular movements are intact, symmetrical. Oral cavity: Mucous membranes moist and pink. Dentition is intact. NECK: Shows anterior throat supple without palpable lymphadenopathy is noted. Swallow reflex symmetrical. CHEST: Shows normal with inspection. Breath sounds clear to auscultation bilaterally. HEART: Shows S1 and S2 clear. No murmurs auscultated. ABDOMEN: Obese, soft, nontender and nondistended. No palpable organomegaly is noted. No rebound or guarding demonstrated. BACK: Shows spine grossly in the midline. Cervical paraspinous muscle shows some moderate tenderness with palpation but is symmetrical. Good rotational motion of cervical spine, however, both laterally as well as extension and flexion without difficulty. Thoracic paraspinous musculature is supple without significant tenderness. Lumbar paraspinous musculature, however, shows significant tenderness in the upper, middle and lower distribution of the paraspinous muscles bilaterally without radiation, without trigger points but diffusely tender to moderate extent. The patient shows some mild tenderness over the sacrum and now the sacroiliac regions. Good rotational motion both laterally as well as extension and flexion without exacerbation of pain significantly. LOWER EXTREMITIES: Show deep tendon reflexes 1+ in the patellar and tendo-calcaneus tendons. Motor exam is 5/5 with dorsiflexion, extension, quadriceps and hamstring flexion and are symmetrical. Peripheral pulses are 1+. No edema bilaterally. Options were discussed with the patient. The patient's old chart was used as well as his current medication regimen updated. Current review of systems updated today as well and we will change the patient's hydrocodone to oxycodone 7.5 mg. He tolerated this very well in the past and seems to be developing some physiologic tolerance to the hydrocodone. We will change the medication and the patient was given instruction as well as side effects to be aware of with the medication. Also discussed his blood pressure is significantly high and has been on previous visit and he will follow up with his primary care physician regarding this as well. The patient was encouraged to increase activity, also discussed some weight loss techniques with diet and exercise. Encouraged the patient to walk daily if possible as he normally does this but is not recently because of the increased pain. The patient will follow up in roughly 2 months was given 2-month prescription for refill and follow up sooner if necessary. KOFI BYRD MD DR: AIDEN/ritesh JOB#: [id number] / [id number]
== END | disposition home or self-care (01) ==
LOC: PNCL 10:24
PROVIDERS: ATTEND Anesthesiology
DX: M51.36 Other intervertebral disc degeneration, lumbar region (principal); M48.061 Spinal stenosis, lumbar region without neurogenic claudication; M47.896 Other spondylosis, lumbar region
CPT/HCPCS: G0463

== ENCOUNTER → 2017-05-26 | Outpatient (CLI) | payer BC, MEDICARE | END | disposition home or self-care (01) | LOC: PNCL 10:59 | DX: M51.36 Other intervertebral disc degeneration, lumbar region (principal); M48.061 Spinal stenosis, lumbar region without neurogenic claudication; M47.896 Other spondylosis, lumbar region | CPT/HCPCS: 99212 ==

== ENCOUNTER → 2017-07-21 | Outpatient (CLI) | payer BC, MEDICARE | END | disposition home or self-care (01) | LOC: PNCL 11:28 | DX: M51.36 Other intervertebral disc degeneration, lumbar region (principal); M48.061 Spinal stenosis, lumbar region without neurogenic claudication; M47.896 Other spondylosis, lumbar region | CPT/HCPCS: 99212 ==

== ENCOUNTER → 2017-09-15 | Outpatient (CLI) | payer BC, MEDICARE | END | disposition home or self-care (01) | LOC: PNCL 11:19 | DX: M51.36 Other intervertebral disc degeneration, lumbar region (principal); M48.061 Spinal stenosis, lumbar region without neurogenic claudication; M47.896 Other spondylosis, lumbar region | CPT/HCPCS: 99212 ==

== ENCOUNTER → 2017-11-10 | Outpatient (CLI) | payer BC, MEDICARE | END | disposition home or self-care (01) | LOC: PNCL 11:28 | DX: M51.36 Other intervertebral disc degeneration, lumbar region (principal); M47.896 Other spondylosis, lumbar region; M48.061 Spinal stenosis, lumbar region without neurogenic claudication; I10 Essential (primary) hypertension; E11.9 Type 2 diabetes mellitus without complications; F32.9 Major depressive disorder, single episode, unspecified; F41.9 Anxiety disorder, unspecified; Z87.891 Personal history of nicotine dependence; Z96.652 Presence of left artificial knee joint; Z90.49 Acquired absence of other specified parts of digestive tract; Z80.8 Family history of malignant neoplasm of other organs or systems | CPT/HCPCS: G0463 ==

== ENCOUNTER → 2018-01-05 | Outpatient (CLI) | payer BC, MEDICARE ==
[~2018-01-05] MED LIST changes: -FERR-26 PO; +FERR325T14 PO; +LISI2.5T PO; -WARF2TAB7 PO; +WARF2TAB96 PO
--- NOTE | 2018-01-05 13:58 | PAIN ---
DATE OF SERVICE: 01/05/2018 PROGRESS NOTE FOR PAIN CLINIC DIAGNOSES: Lumbar spondylosis, lumbar spinal stenosis and lumbar degenerative disk disease. HISTORY OF PRESENT ILLNESS: The patient is a 47-year-old male who returns for followup status post medication management with hydrocodone and also Zanaflex and Lidoderm patches. The patient reports he is doing quite well with this, about a 75% improvement overall and sometimes better than that even 80%-85% on some days. Recently has had some rainy weather and the patient has had increased pain in the joints and his low back as well as hips. The patient also has gained some weight since the last visit and is somewhat disappointed about that. The patient reports his pain is mainly in the low back, mid back and at the bilateral lower extremities and in the knees and hips as well with sharp pain that is tight, shooting, cramping, stabbing and becoming more constant, more significant over time with weightbearing and worse with standing, walking and changing positions. The patient rates the pain as a 9 on a scale of 10 at its worst, 7 on average, 6 at its least and is a 7 today. The patient reports no new motor or sensory deficits, much better with sitting or lying down, sleeps 6-7 hours a night, does not awaken him from sleep mostly. The patient reports all of his joints are aching as with some rainy weather again, otherwise doing fairly well. No side effects with the medication and no constipation, itching, nausea or sedation. PHYSICAL EXAMINATION: VITAL SIGNS: The patient's blood pressure 114/76, pulse 66, respirations 16, temperature 97.6 degrees Fahrenheit, height is 5 feet 7 inches and weight is 279 pounds. GENERAL: The patient is awake, alert, oriented, appropriate and very pleasant demeanor. HEENT: Head shows normocephalic and atraumatic. Extraocular movements intact and symmetrical. Oral cavity: Mucous membranes moist and pink. Dentition is intact. NECK: Shows anterior throat supple without palpable lymphadenopathy noted. Swallow reflex is symmetrical. CHEST: Shows normal on inspection. Breath sounds clear to auscultation bilaterally. HEART: Shows S1 and S2 clear. No murmurs auscultated. ABDOMEN: Obese, soft, nontender and nondistended. No palpable organomegaly is noted. No rebound or guarding demonstrated. BACK: The patient's back shows spine grossly in the midline. Slight exaggeration of the thoracic kyphosis and some mild flattening of lumbar lordotic curvature. Lumbar paraspinous muscle shows symmetrical on inspection and palpation shows some moderate tenderness bilaterally but only diffusely without radiation. EXTREMITIES: The patient's lower extremities show deep tendon reflexes at 1+ in the patellar and tendo-calcaneus tendons are equal. Motor exam is strong with approximately 4 on a scale of 5 but equal and symmetrical dorsiflexion, extension, quadriceps and hamstring flexion. Peripheral pulses are 1+. No peripheral edema is noted. Options were discussed with the patient. The patient's old chart was reviewed as well as his current medication regimen updated. Current review of systems updated today as well. We will proceed with a refill of the patient's hydrocodone for 2 months prescription as well as Zanaflex and Lidoderm patches as he does well with these on his low back. The patient had appropriate K-TRACS reporting as well as appropriate urinalysis to date. The patient will follow up in approximately 2 months as scheduled, was given instructions as well as side effects to be aware of each of the medications. KOFI BYRD MD DR: AIDEN/ritesh JOB#: [id number] / [id number]
== END | disposition home or self-care (01) ==
LOC: PNCL 11:26
PROVIDERS: ATTEND Anesthesiology
DX: M51.36 Other intervertebral disc degeneration, lumbar region (principal); M48.061 Spinal stenosis, lumbar region without neurogenic claudication; M47.896 Other spondylosis, lumbar region; I10 Essential (primary) hypertension; E11.9 Type 2 diabetes mellitus without complications; M19.011 Primary osteoarthritis, right shoulder; M19.072 Primary osteoarthritis, left ankle and foot; E03.9 Hypothyroidism, unspecified; Z88.8 Allergy status to other drugs, medicaments and biological substances; Z96.652 Presence of left artificial knee joint; Z87.891 Personal history of nicotine dependence; Z82.49 Family history of ischemic heart disease and other diseases of the circulatory system; Z80.8 Family history of malignant neoplasm of other organs or systems
CPT/HCPCS: 99212

== ENCOUNTER → 2018-01-30 | Outpatient (CLI) | payer BC, MEDICARE ==
[2018-01-30 13:54] LABS: BF COLOR YELLOW; BF SOURCE SYNOVIAL
[2018-01-30 13:55] LABS: BF CLARITY HAZY; BF MON % 100 %; BF RBC COUNT 3250 /cmm; BF WBC COUNT 40 /cmm
== END | disposition home or self-care (01) ==
LOC: SPEC 12:28
PROVIDERS: ATTEND Orthopaedic Surgery
DX: M25.562 Pain in left knee (principal)
CPT/HCPCS: 87071; 87075; 89050

== ENCOUNTER → 2018-02-24 | Outpatient (CLI) | payer BC, MEDICARE ==
--- NOTE | 2018-02-24 13:48 | EKG ---
[facility] [address] [place] [address] Test Date: 2018-02-24 Test Time: 13:55:59 Pat Name: ANASTACIA RESENDEZ Department: Room: Gender: M Siebel Administrator: : 1970 Requested By: THEE GOMEZ Order Number: [id number] Reading MD: Mateusz Rodrigez MD Measurements Intervals [facility] Rate: 65 P: 35 [place]: 162 QRS: -24 QRSD: 92 T: 22 QT: 392 QTc: 408 Interpretive Statements SINUS RHYTHM Electronically Signed On 02-27-2018 14:16:11 HEALTH CLINICIAN by Mateusz Rodrigez MD
[2018-02-24 14:01] LABS: BASO % 1 % (0-3); EOS # 0.1 x10^3/uL (0.0-0.7); EOS % 2 % (0-3); HEMATOCRIT 38.4 % (39.0-53.0); HEMOGLOBIN 13.4 g/dL (13.0-17.5); LYMPH % 38 % (24-48); MEAN CORPUSCULAR HEMOGLOBIN 29 pg (25-35); MEAN CORPUSCULAR HGB CONC 35 g/dL (31-37); MEAN CORPUSCULAR VOLUME 83 fL (79-100); MONO # 0.4 x10^3/uL (0.0-1.1); MONO % 8 % (0-9); NEUT # 2.7 x10^3uL (1.8-7.7); NEUT % 51 % (31-73); PLATELET COUNT 217 x10^3/uL (140-400); RED BLOOD COUNT 4.66 x10^6/uL (4.30-5.70); RED CELL DISTRIBUTION WIDTH 13.5 % (11.5-14.5); WHITE BLOOD COUNT 5.2 x10^3/uL (4.0-11.0)
[2018-02-24 14:04] LABS: BILIRUBIN,URINE NEGATIVE (NEG); CLARITY,URINE CLEAR; COLOR,URINE YELLOW; NITRITE,URINE NEGATIVE (NEG); PROTEIN,URINE 100 mg/dL (NEG-TRACE)
[2018-02-24 14:10] LABS: PROTHROMBIN TIME PATIENT 13.3 SEC (11.7-14.0)
[2018-02-24 14:16] LABS: ALBUMIN 3.7 g/dL (3.4-5.0); CALCIUM 9.2 mg/dL (8.5-10.1); GFR 79.8; POTASSIUM 3.4 mmol/L (3.5-5.1)
[2018-02-24 14:27] LABS: BACTERIA,URINE 0 /HPF (0-FEW); RBC,URINE 0 /HPF (0-2); SQUAMOUS EPITHELIAL CELL,UR OCC /LPF; WBC,URINE RARE /HPF (0-4)
[2018-02-24 14:28] LABS: HYALINE CASTS, URINE OCCASIONAL /HPF
--- NOTE | 2018-02-24 17:16 | RAD ---
PA and lateral chest radiograph. History: Preoperative left knee surgery, hypertension, diabetes. Comparison: December 21, 2016. Findings: Cardiomediastinal silhouette is at upper limits of normal for size. Bilateral lung baig appear clear without evidence of infiltrate, effusion, or pneumothorax. Impression: 1. No acute cardiopulmonary process. Electronically signed by: Adam Church MD (02/24/2018 5:12 PM) [place] [id number]
== END | disposition home or self-care (01) ==
LOC: SURGPAT 12:33
PROVIDERS: ATTEND Orthopaedic Surgery
DX: Z01.818 Encounter for other preprocedural examination (principal)
CPT/HCPCS: 36415; 71046; 80048; 81001; 82040; 85025; 85610; 85651; 85730; 87641; 93005

== ENCOUNTER → 2018-02-24 | Outpatient (CLI) | payer BC, MEDICARE ==
--- NOTE | 2018-02-24 22:35 | PAIN ---
DATE OF SERVICE: 02/24/2018 PROGRESS NOTE FOR PAIN CLINIC DIAGNOSES: Lumbar degenerative disk disease, lumbar spinal stenosis and lumbar spondylosis. HISTORY OF PRESENT ILLNESS: The patient is a 47-year-old male who returns for followup status post medication management with both Lidoderm patches, Zanaflex and oxycodone 7.5 mg. The patient reports he is doing very well with this, has been on very stable regimen without side effects with about 80% improvement overall, still some low back pain and bilateral lower extremity pain. The patient is having knee surgery next week as his left knee prosthesis is from the tibial component as he is having a revision of this next week. The patient reports the pain in his low back and also, his left knee has constant tingling, aching, sharp, dull but again very controlled significantly by the medication management again without side effects. The patient reports no new motor or sensory deficits and rates his pain as a 9 on a scale of 10 at its worst, 8 on average, 6 at its least and is a 6 today; better with sitting or getting off of his back and his feet. It awakens him from sleep very rarely, usually sleeps through the night about 8 hours. The patient reports no new motor or sensory deficits and no new bowel or bladder incontinence or other complaints. The patient reports the medications allow him to increase his activities of daily living, except for his knee and he has been walking more, tried to exercise some as he has been trying to lose some weight but was not having much success at this point. The patient reports no new changes or other complaints. PHYSICAL EXAMINATION: VITAL SIGNS: The patient's blood pressure is 147/105, pulse 80, respirations 18 and temperature 98.4 degrees Fahrenheit. Height is 5 feet 7 inches and weighs 281 pounds. GENERAL: The patient is awake, alert, oriented, appropriate and very pleasant demeanor. HEENT: Head shows normocephalic and atraumatic. Extraocular movements are intact and symmetrical. Oral cavity: Mucous membranes are moist and pink. Dentition is intact. NECK: Shows anterior throat supple without palpable lymphadenopathy noted. Swallow reflex symmetrical. CHEST: Shows normal on inspection. Breath sounds clear to auscultation bilaterally. HEART: Shows S1 and S2 clear. No murmurs auscultated. ABDOMEN: Obese, soft, nontender and nondistended. No palpable organomegaly is noted. No rebound and guarding demonstrated. BACK: Shows spine grossly in the midline. Normal appearing thoracic kyphosis and lumbar lordotic curvature. Lumbar paraspinous muscle shows symmetrical on inspection, on palpation shows some moderate tenderness bilaterally diffusely but without radiation, without trigger points. The patient has good rotational motion of lumbar spine, both laterally as well as extension and flexion. No tenderness over the sacrum or sacroiliac regions. EXTREMITIES: Lower extremities show deep tendon reflexes at 1+ in the patellar and tendo-calcaneus tendons. Well-healed surgical scar is noted, especially over the left knee, which is nontender with palpation. Peripheral pulses are 1+ posterior tibia. No peripheral edema is noted. Motor exam is strong with approximately 5/5 dorsiflexion, extension and equal bilaterally. Options were discussed with the patient. The patient's old chart was reviewed as well as his current medication regimen updated. Current review of systems updated today as well. We will refill the patient's oxycodone as well as Zanaflex and Lidoderm patches. Also add oxycodone 10 mg 30 tablets for postoperative pain as he is having his knee revision next Tuesday. The patient was given instructions as well as side effects to be aware of with each of the medication. The patient had appropriate K-TRACS reporting as well as appropriate urinalysis to date and we will refill this for 2 months. The patient will follow up as scheduled in 2 months or sooner as necessary. KOFI BYRD MD DR: AIDEN/ritesh JOB#: [id number] / [id number]
== END | disposition home or self-care (01) ==
LOC: PNCL 11:28
PROVIDERS: ATTEND Anesthesiology
DX: M51.36 Other intervertebral disc degeneration, lumbar region (principal); M48.061 Spinal stenosis, lumbar region without neurogenic claudication; M47.896 Other spondylosis, lumbar region
CPT/HCPCS: 99212

== ENCOUNTER → 2018-04-21 | Outpatient (CLI) | payer BC, MEDICARE ==
[~2018-04-21] MED LIST changes: +DAPA5TAB PO; -HYDR-2762 PO; +HYDR-2765 PO; +LITH300T3 PO; +MELO15TA6 PO; -OXYC-327 PO; +OXYC10TA PO; +OXYC1TAB19 PO; +OXYC1TAB8 PO; -SENN1TAB21 PO; +SENN1TAB62 PO; +WARF-31 PO
--- NOTE | 2018-04-21 18:02 | PAIN ---
DATE OF SERVICE: 04/21/2018 DIAGNOSES: Lumbar degenerative disk disease, lumbar spinal stenosis and lumbar spondylosis. HISTORY OF PRESENT ILLNESS: The patient is a 48-year-old male who returns for followup status post medication management with both oxycodone and tizanidine as well as Lidoderm patches. The patient reports he is doing very well, was on a stable regimen. He is scheduled to have his knee replaced after last visit; however, was unable to do so because his blood sugar was too high and his A1c was too high. He is having that reevaluated and will wait on any future surgical interventions secondary to his diabetes, not been in excellent control. The patient will keep us posted on this. The patient reports otherwise he is doing very well, had been on very stable regimen with his oxycodone and tizanidine as well as Lidoderm patches. The patient reports some increased pain in the base of the neck and shoulders, mostly his right shoulder, which he has been told needs surgery as well, but otherwise doing fairly well. No side effects with his medication. The patient reports overall about 80% improvement with his medications without significant side effects. The patient reports no new motor or sensory deficits, no new changes. The patient rates his pain is a 10 on a scale of 10 at its worst, 7 on average, 7 at its least, described as sharp, stabbing, radiating, constant in the base of neck and shoulders on the right side and also significant pain in the right knee, again needing surgery, but waiting for a better diabetic control. PHYSICAL EXAMINATION: VITAL SIGNS: The patient's blood pressure is 148/98, pulse 79, respirations are 16, temperature is 97.8 degrees Fahrenheit, height is 5 feet 7 inches, weight is 283 pounds. GENERAL: The patient is awake, alert, oriented, appropriate, very pleasant demeanor. HEENT: Shows normocephalic, atraumatic. Extraocular movements are intact and symmetrical. Oral cavity: Mucous membranes are moist and pink. Dentition is intact. NECK: Shows anterior throat supple without palpable lymphadenopathy noted. Swallow reflex is symmetrical. CHEST: Shows normal on inspection. Breath sounds are clear to auscultation bilaterally. HEART: Shows S1, S2 clear. No murmurs auscultated. ABDOMEN: Obese, soft, nontender, nondistended. No palpable organomegaly is noted. No rebound or guarding demonstrated. BACK: Shows spine grossly in the midline, slight exaggerated thoracic kyphosis and minor flattening of lumbar lordotic curvature. Lumbar paraspinous muscle shows symmetrical on inspection. On palpation shows some moderate tenderness diffusely bilaterally, but only diffusely without radiation. The patient shows good rotational motion of the lumbar spine without significant increase in pain. EXTREMITIES: The patient's lower extremities show deep tendon reflexes 1+ in the patellar and tendo calcaneus tendons are equal. Motor exam is strong with approximately 4 on a scale of 5, but equal and symmetrical dorsiflexion, extension, quadriceps and hamstring flexion bilaterally. Peripheral pulses are 1+ posterior tibia. No peripheral edema is noted. Options were discussed with the patient. The patient's old chart was reviewed as his current medication regimen updated. Current review of systems is updated today as well and we will refill the patient's oxycodone as well as Zanaflex and Lidoderm patches for a 2-month period. He has had appropriate K-TRACS reporting as well as appropriate urinalysis to date. We will update his narcotic contract today with new copies given to the patient as well, also urinalysis today as routine screening. The patient will return to the clinic in approximately 2 months or sooner as necessary. KOFI BYRD MD DR: AIDEN/ritesh JOB#: [id number] / [id number]
== END | disposition home or self-care (01) ==
LOC: PNCL 10:05
PROVIDERS: ATTEND Anesthesiology
DX: M51.36 Other intervertebral disc degeneration, lumbar region (principal); M48.061 Spinal stenosis, lumbar region without neurogenic claudication; M47.816 Spondylosis without myelopathy or radiculopathy, lumbar region; E11.9 Type 2 diabetes mellitus without complications; M25.561 Pain in right knee; Z79.899 Other long term (current) drug therapy
CPT/HCPCS: G0463

== ENCOUNTER → 2018-06-16 | Outpatient (CLI) | payer BC, MEDICARE ==
--- NOTE | 2018-06-16 23:48 | PAIN ---
DATE OF SERVICE: 06/16/2018 PROGRESS NOTE FOR PAIN CLINIC DIAGNOSES: Lumbar degenerative disk disease, lumbar spinal stenosis and lumbar spondylosis. HISTORY OF PRESENT ILLNESS: The patient is a 48-year-old male who returns for followup status post medication management with oxycodone as well as tizanidine and Lidoderm patches. The patient is doing very well with this. He reports he has had some increased pain over the past few weeks but relates most of these being responsible with recent weather changes that we had and precipitation patterns as these do affect him traditionally. The patient reports otherwise he is doing very with the medication and generally gets about a 70% improvement overall, although again the last few weeks has been more pain in the base of the neck and shoulders and claims the pain in the low back, mid back radiating in the bilateral lower extremities. The patient reports it is 10 on scale 10 at its worst, 8-9 on average, 7 at its least and is 8 today. The patient reports it is tight, stabbing, cramping and becoming more constant and more severe at times. Again, still reduced significantly with the medication but only about 50% level over the past few weeks in stead of more like 70% generally. The patient reports Lidoderm patches do help quite a bit, especially putting on the back in the shoulders and then upper back and lower neck area as well as the lumbar distribution. The patient reports pain in the knees, elbows and shoulders with some arthritic changes as well. Again, worse with recent weather and precipitation. The patient reports it is better at night. It does not awaken him from generally, sleeping about 7 hours a night most times. No new motor or sensory deficits and no new bowel or bladder incontinence. Again, no side effects to his medication and has been on a very stable regimen. PHYSICAL EXAMINATION: VITAL SIGNS: The patient's blood pressure 148/104, pulse 87, respirations 18 and temperature 98.2 degrees Fahrenheit. Height is 5 feet 7 inches and weighs 276 pounds. GENERAL: The patient awake, alert, oriented, appropriate and very pleasant demeanor. HEENT: Head shows normocephalic and atraumatic. Extraocular movements are intact and symmetrical. Oral cavity, mucous membranes are moist and pink. Dentition is intact. NECK: Shows anterior throat supple without palpable lymphadenopathy noted. Swallow reflex symmetrical. CHEST: Shows normal on inspection. Breath sounds clear to auscultation bilaterally. HEART: Shows S1 and S2 clear. No murmurs noted. ABDOMEN: Obese, soft, nontender and nondistended. No palpable organomegaly is noted. No rebound or guarding demonstrated. BACK: Shows spine grossly in the night, slight exaggeration of the thoracic kyphosis and normal cervical lordotic curvature and some flattening of lumbar lordotic curvature as well. Cervical paraspinous musculature symmetrical on inspection and with palpation shows some moderate tenderness diffusely throughout the upper, middle and lower distribution of the paraspinous muscles and into the superior medial and lateral trapezius bilaterally but only diffusely without trigger points. The patient has good rotational motion of the cervical spine, both laterally as well as extension and flexion without significant limitation or pain. Low back shows paraspinous muscular symmetrical on inspection with palpation shows some diffuse tenderness again mainly in the middle and lower distribution of the lumbar paraspinous muscles without radiation, without trigger points. No tenderness over the spinous processes, sacrum or sacroiliac regions. The patient has good rotation of motion both laterally, greater than 10 degrees right and left as well as extension greater than 10 degrees, forward flexion 45 degrees without significant pain reported. EXTREMITIES: The patient's lower extremities show deep tendon reflexes 1+ in the patellar and tendo-calcaneus tendons. Upper extremities are 2+ biceps and triceps tendons. Roving Winder strength is strong at 5/5 and equal. Lower extremities showed approximately 4 on a scale 5 but symmetrical dorsiflexion and extension. Peripheral pulses are 1+ posterior tibial, 2+ radial. No peripheral edema is noted bilaterally in the upper or lower extremities. Options were discussed with the patient. The patient's old chart was reviewed as well as current medication regimen updated. Current review of systems updated today as well and we will refill the patient's oxycodone as well as Lidoderm patches and tizanidine for 2-month prescription. The patient has had appropriate K-TRACS reporting as well as appropriate urinalysis to date. We will have urinalysis done today as routine screening and also reviewed the patient's narcotic contract as done previously. The patient will follow up approximately 2 months or sooner if necessary. The patient was given instructions as well as side effects to be aware with the medications. Also, the patient will continue with weight loss techniques and he had lost about 9 pounds since his last visit and is encouraged by this and we instructed him to do some different exercises, stretching and offered pool therapy and we would like to await until the weather is warmer for this. Also with the patient's blood pressure discussed, covering this with his primary physician as well as it was elevated and has been in the past also. The patient understands and agrees and we will follow up in approximately 2 months or sooner as necessary. KOFI BYRD MD DR: AIDEN/ritesh JOB#: [id number] / [id number]
== END | disposition home or self-care (01) ==
LOC: PNCL 10:05
PROVIDERS: ATTEND Anesthesiology
DX: M51.36 Other intervertebral disc degeneration, lumbar region (principal); M48.061 Spinal stenosis, lumbar region without neurogenic claudication; M47.816 Spondylosis without myelopathy or radiculopathy, lumbar region; M40.294 Other kyphosis, thoracic region
CPT/HCPCS: G0463

== ENCOUNTER → 2018-07-24 | Outpatient (CLI) | payer BC, MEDICARE ==
[~2018-07-24] MED LIST changes: +BUPIVACAINE MPF 0.25% 10 ML VIAL. ONE; +IOHEXOL 180 MG/ML 10 ML VIAL. ONE; +methylPREDNISolone ACETATE 40 MG/ML VIAL. ONE
--- NOTE | 2018-07-25 03:23 | PAIN ---
DATE OF SERVICE: 07/24/2018 DIAGNOSES: 1. Lumbar degenerative disk disease with lumbar spinal stenosis and lumbar spondylosis. 2. Right shoulder joint pain with right biceps tendinitis. HISTORY OF PRESENT ILLNESS: The patient is a 48-year-old male who returns for followup status post medication management, last seen on 06/16/2018. The patient did very well with the oxycodone regimen, has been taking and Zanaflex; however, he has seen his orthopedic surgeon for right shoulder pain and was recommending a biceps tendon injection on the right side. He has significant pain with lifting items, rotation and movement of the shoulder, especially reaching forward or to the side, but not posteriorly. The patient reports it has flared up over the past several weeks, has been getting worse. Again, he has seen his orthopedic surgeon, Dr. Madhav Avila, recommending conservative treatment at this time and bicipital tendon injection. The patient reports doing well with his medication regimen, which does help the pain in the shoulder some, but it is much better for his low back. The patient reports no new motor or sensory deficits, no new bowel or bladder incontinence or any other complaints. PHYSICAL EXAMINATION: VITAL SIGNS: The patient's blood pressure is 125/101, pulse is 70, respirations are 18, temperature is 98.0 degrees Fahrenheit, height is 5 feet 7 inches, weight is 278 pounds. The patient rates his pain as 9 on a scale of 10 at its worse in the shoulder, 8 on average and 7 at its least in the last week. He described it as sharp, tight, shooting and constant. GENERAL: The patient is awake, alert, oriented, appropriate, very pleasant demeanor. HEENT: Normocephalic, atraumatic. Extraocular movements are intact and symmetrical. Oral cavity, mucosa is moist and pink. Dentition is intact. NECK: Shows anterior throat supple without palpable lymphadenopathy noted. Swallow reflex is symmetrical. CHEST: Shows normal on inspection. Breath sounds are clear to auscultation bilaterally. HEAR: Sounds S1, S2 clear. No murmur is auscultated. ABDOMEN: Soft, nontender, nondistended. No palpable organomegaly is noted. No rebound or guarding is demonstrated. BACK: Shows spine grossly in the midline. Normal-appearing cervical lordotic curvature, thoracic kyphotic curvature slightly exaggerated and lumbar lordotic curvature is flattened to a moderate extent. EXTREMITIES: The patient's upper extremities show deep tendon reflexes 2+ at the biceps and triceps tendons. Motor exam is strong with document control manager strength rated at 5/5 as is biceps and triceps flexion bilaterally. The patient's peripheral pulses are 2+ in radial distribution. No peripheral edema is noted bilaterally. The patient's right shoulder shows significant tenderness over the anterior aspect of the humerus in the bicipital tendon groove and inferior to this about 5 cm, but not into the biceps muscle itself. Mild tenderness over the acromioclavicular joint on the right side ____ with deep palpation. The patient does have good rotational motion with some pain with abduction as well as forward reaching and with resisted biceps flexion significant pain in the anterior aspect of the anterior shoulder on the right. Left side shows full range of motion, good strength 5/5 without pain reported. Options were discussed with the patient. The patient's old chart was reviewed as was current medication regimen updated . Current review of systems update today as well. We will proceed with the right biceps tendon injection under sterile prep and drape using fluoroscopic guidance. Risks were discussed including but not limited to bleeding, infection, possibility of intravascular injection sequellae, spread of local anesthetic and numbness, side effects of steroid medication and poor results regarding pain control. The patient understands and wished to proceed. The patient will return to clinic in approximately 2 weeks, regularly scheduled for medication refill. We will review his shoulder pain at that time and further evaluate. DIAGNOSIS: Right biceps tendinitis. PROCEDURE: Right biceps tendon injection under fluoroscopic guidance under sterile prep and drape using local anesthetic. MEDICATION INJECTED: A total of 40 mg Depo-Medrol plus 3 mL of 0.25% bupivacaine and 1 mL of contrast. CONDITION AT DISCHARGE: Stable. The patient tolerated the procedure well, had no complications. KOFI BYRD MD DR: AIDEN/ritesh JOB#: [id number] / [id number]
== END | disposition home or self-care (01) ==
LOC: PNCL 09:23
PROVIDERS: ATTEND Anesthesiology
DX: M75.21 Bicipital tendinitis, right shoulder (principal); M51.36 Other intervertebral disc degeneration, lumbar region; M48.061 Spinal stenosis, lumbar region without neurogenic claudication; M47.816 Spondylosis without myelopathy or radiculopathy, lumbar region; Z88.8 Allergy status to other drugs, medicaments and biological substances
CPT/HCPCS: 20550; 77002; J1030; J3490; Q9965; 20605

== ENCOUNTER → 2018-08-08 | Outpatient (CLI) | payer BC, MEDICARE ==
[~2018-08-08] MED LIST changes: -BUPIVACAINE MPF 0.25% 10 ML VIAL. ONE; -IOHEXOL 180 MG/ML 10 ML VIAL. ONE; -methylPREDNISolone ACETATE 40 MG/ML VIAL. ONE
[2018-08-08 13:54] LABS: BILIRUBIN,URINE NEGATIVE (NEG); CLARITY,URINE CLEAR; COLOR,URINE YELLOW; NITRITE,URINE NEGATIVE (NEG); PH,URINE 6.5; PROTEIN,URINE 30 mg/dL (NEG-TRACE)
[2018-08-08 13:59] LABS: BACTERIA,URINE 0 /HPF (0-FEW); RBC,URINE 0 /HPF (0-2); SQUAMOUS EPITHELIAL CELL,UR OCC /LPF; WBC,URINE 0 /HPF (0-4)
[2018-08-08 14:15] LABS: BASO % 1 % (0-3); EOS # 0.2 x10^3/uL (0.0-0.7); EOS % 3 % (0-3); HEMATOCRIT 41.1 % (39.0-53.0); HEMOGLOBIN 13.6 g/dL (13.0-17.5); LYMPH # 1.6 x10^3/uL (1.0-4.8); LYMPH % 24 % (24-48); MEAN CORPUSCULAR HEMOGLOBIN 28 pg (25-35); MEAN CORPUSCULAR HGB CONC 33 g/dL (31-37); MEAN CORPUSCULAR VOLUME 84 fL (79-100); MONO # 0.4 x10^3/uL (0.0-1.1); MONO % 6 % (0-9); NEUT # 4.4 x10^3uL (1.8-7.7); NEUT % 67 % (31-73); PLATELET COUNT 216 x10^3/uL (140-400); RED BLOOD COUNT 4.91 x10^6/uL (4.30-5.70); RED CELL DISTRIBUTION WIDTH 14.5 % (11.5-14.5); WHITE BLOOD COUNT 6.6 x10^3/uL (4.0-11.0)
[2018-08-08 14:22] LABS: PROTHROMBIN TIME PATIENT 12.5 SEC (11.7-14.0)
[2018-08-08 14:38] LABS: ALBUMIN 3.7 g/dL (3.4-5.0); CALCIUM 9.2 mg/dL (8.5-10.1); GFR 79.4; POTASSIUM 3.5 mmol/L (3.5-5.1)
[2018-08-10 03:10] LABS: HEMOGLOBIN A1C 7.7 % (4.8-5.6)
== END | disposition home or self-care (01) ==
LOC: SURGPAT 13:21
PROVIDERS: ATTEND Orthopaedic Surgery
DX: Z01.818 Encounter for other preprocedural examination (principal)
CPT/HCPCS: 36415; 80048; 81001; 82040; 83036; 85025; 85610; 85651; 85730; 87641

== ENCOUNTER → 2018-08-11 | Outpatient (CLI) | payer BC, MEDICARE ==
--- NOTE | 2018-08-12 00:48 | PAIN ---
DATE OF SERVICE: 08/11/2018 PROGRESS NOTE FOR PAIN CLINIC DIAGNOSES: Lumbar degenerative disk disease with lumbar spinal stenosis and lumbar spondylosis. HISTORY OF PRESENT ILLNESS: The patient is a 48-year-old male who returns for followup status post medication management with oxycodone and Zanaflex, 7.5 mg oxycodone and 4 mg of Zanaflex. The patient reports he has been on a very stable regimen. He still has some significant pain. We tried a biceps tendon injection on his last visit on the right, which helped for a few days, but then the pain returned significantly. The patient reports he does not wish any further injections at this time, doing well with his medication regimen; he is on a very stable regimen. He rates his pain as a 9 on a scale of 10 at its worst, 7 on average, 6 at its least and is a 7 today. The patient reports it is tingling, stabbing in the back, sharp type, shooting at times in the lower extremities. He also has some pain in the left knee where he was having revision on his left knee surgery coming up later this month as well. The patient reports no new bowel or bladder incontinence, no new changes. Better with lying down or sleeping. The patient reports he is trying to be more active, but his knee is limiting him severely. He has put on some weight since his last visit and we discussed this in detail as well. PHYSICAL EXAMINATION: VITAL SIGNS: The patient's blood pressure is 145/91, pulse 70, respirations 18 and temperature 97.8 degrees Fahrenheit. Height 5 feet 7 inches, weight is 280 pounds. GENERAL: The patient is awake, alert, oriented and appropriate. He has a very pleasant demeanor. HEENT EXAMINATION: Shows normocephalic, atraumatic. Extraocular movements are intact and symmetrical. Oral cavity, mucous membranes are moist and pink. Dentition is intact. NECK: Shows anterior throat supple, without palpable lymphadenopathy noted. Swallow reflex is symmetrical. CHEST: Shows normal on inspection. Breath sounds are clear to auscultation bilaterally. HEART: Shows S1, S2 clear. ABDOMEN: Obese, soft, nontender and nondistended. No palpable organomegaly is noted. No rebound or guarding demonstrated. BACK: Shows spine grossly in the midline. Slightly exaggerated thoracic kyphosis and some flattening of the lumbar lordotic curvature. Lumbar paraspinous muscle shows symmetrical on inspection. With palpation, it shows some moderate tenderness throughout the upper, middle and lower distribution of the paraspinous muscles diffusely, but without radiation. The patient has good rotational motion, both laterally as well as extension and flexion of the lumbar spine, without significant limitation or pain reported. EXTREMITIES: The patient's lower extremities show deep tendon reflexes at 1+ in the patellar and tendo calcaneus tendons. Motor exam is 5/5 with dorsiflexion and extension. Peripheral pulses are 1+ posterior tibial. Upper extremities show some mild tenderness still with palpation over the right biceps tendon, but not the left. The patient shows full rotational motion of the right shoulder, without significant limitation. Some pain reported with resistance in biceps flexion on the right side, but less than on previous exam. Options were discussed with the patient. The patient's old chart was reviewed as was his current medication regimen updated. Current review of systems updated today as well. He had appropriate K-TRACS reporting as well as appropriate urinalysis to date. We will refill the patient's oxycodone and Zanaflex for a 2-month period. The patient was given instruction as well as side effects to be aware of each of the medications. We also discussed weight loss and this may be difficult with the upcoming knee surgery; however, discussed that this is significantly increasing, as he is up 2 pounds from his last visit and we will try to get more functional after his knee surgery and rehabilitation as well. The patient will follow up in approximately 2 months as scheduled. He was counseled on activity level as well as side effects to be aware of and again, dietary recommendations and activity recommendations. KOFI BYRD MD DR: AIDEN/ritesh JOB#: [id number] / [id number]
== END | disposition home or self-care (01) ==
LOC: PNCL 10:30
PROVIDERS: ATTEND Anesthesiology
DX: M51.36 Other intervertebral disc degeneration, lumbar region (principal); M48.061 Spinal stenosis, lumbar region without neurogenic claudication; M47.816 Spondylosis without myelopathy or radiculopathy, lumbar region
CPT/HCPCS: G0463

== ENCOUNTER 2018-08-22 05:44 | Inpatient (IN) | payer BC, MEDICARE ==
[~2018-08-22] VITALS: Ht 170.2 cm; Wt 125.2 kg
[2018-08-22] VITALS (8 sets, daily range): BP systolic 146–175; BP diastolic 84–115
[~2018-08-22 05:44] MED LIST changes: -MELO15TA6 PO; -OXYC10TA PO; -OXYC1TAB8 PO; -WARF-31 PO
[2018-08-22] MEDS ORDERED: ceFAZolin SODIUM 3 GM in IV DEXTROSE 5% 100ML 100 ML IV PRN (06:00)
[2018-08-22] MEDS ORDERED: HYDROcodone/APAP 7.5/325MG 1 TAB TABLET PO PRN (06:00)
[2018-08-22] MEDS ORDERED: CELECOXIB 100 MG CAPSULE. PO PRN (06:00)
[2018-08-22] MEDS ORDERED: MORPHINE SULFATE 5 MG, KETOROLAC 30MG VIAL 30 MG, ROPIVacaine 0.5% PF 60 ML, EPINEPHrin... INT ART ONE ×5 (06:00)
[2018-08-22] MEDS ORDERED: TRANEXAMIC ACID 1,000 MG in IV NS 50ML -- 1ST BAG INJ ONE (06:00)
[2018-08-22] MEDS ORDERED: WARF-78 PO (06:27)
[2018-08-22] MEDS ORDERED: MELO15TA6 PO (06:28)
[2018-08-22] MEDS ORDERED: ROCURONIUM 50 MG/5 ML VIAL. ONE (06:45)
[2018-08-22] MEDS ORDERED: LIDOCAINE 2% PF 5 ML VIAL. ONE (06:46)
[2018-08-22] MEDS ORDERED: PROPOFOL 20 ML IV ONE (06:46)
[2018-08-22] MEDS ORDERED: fentaNYL PF VIAL 100 MCG/2 ML VIAL ONE ×2 (06:46→08:05)
[2018-08-22] MEDS ORDERED: ONDANSETRON PF 4 MG/2 ML VIAL. ONE (06:46)
[2018-08-22] MEDS ORDERED: PHENYLEPHRINE in 0.9% NACL PF 1 MG/10 ML SYRINGE. IV ONE (06:46)
[2018-08-22] MEDS ORDERED: DEXAMETHASONE SOD PHOS 4 MG/ML VIAL ONE (06:46)
[2018-08-22] MEDS ORDERED: SEVOFLURANE > 120 MINUTES. IH ONE ×2 (06:46→08:09)
[2018-08-22] MEDS ORDERED: LIDOCAINE 1% PF 2 ML VIAL. ID PRN (07:00)
[2018-08-22] MEDS ORDERED: IV RINGERS,LACTATED 1000ML 1,000 ML IV SCH (07:00)
[2018-08-22] MEDS ORDERED: MORPHINE SULFATE 2 MG/ML VIAL. IV PRN ×2 (07:00→07:45)
[2018-08-22] MEDS ORDERED: HYDROmorphone 2 MG/ML VIAL IV PRN (07:00)
[2018-08-22] MEDS ORDERED: PROCHLORPERAZINE 10 MG/2 ML VIAL. IV PRN (07:00)
[2018-08-22] MEDS ORDERED: fentaNYL PF VIAL 100 MCG/2 ML VIAL IV PRN ×3 (07:00→07:45)
[2018-08-22] MEDS ORDERED: ONDANSETRON PF 4 MG/2 ML VIAL. IV PRN (07:00)
[2018-08-22 07:08] LABS: PROTHROMBIN TIME PATIENT 12.9 SEC (11.7-14.0)
[2018-08-22] MEDS ORDERED: ePHEDrine PF IN SALINE 50 MG/10 ML SYRINGE. IV ONE (07:15)
[2018-08-22] MEDS ORDERED: MIDAZOLAM HCL/PF 2 MG/2 ML VIAL. ONE (07:16)
[2018-08-22] MEDS ORDERED: SUCCINYLCHOLINE 200 MG/10 ML VIAL. ONE (07:35)
[2018-08-22] MEDS ORDERED: ZOLPIDEM 5 MG TABLET. PO PRN (07:45)
[2018-08-22] MEDS ORDERED: oxyCODONE IR 5 MG TABLET PO PRN (07:45)
[2018-08-22] MEDS ORDERED: DEXTROSE 50% 25 GM / 50ML DISP.SYRIN. IV PRN (07:45)
[2018-08-22] MEDS ORDERED: diphenhydrAMINE 50 MG/ML VIAL IV PRN (07:45)
[2018-08-22] MEDS ORDERED: CALCIUM CARBONATE 500 MG TAB.CHEW PO PRN (07:45)
[2018-08-22] MEDS ORDERED: 0.9 % SODIUM CHLORIDE 10 ML DISP.SYRIN. IV PRN (07:45)
[2018-08-22] MEDS ORDERED: PROCHLORPERAZINE 5 MG TABLET. PO PRN (07:45)
[2018-08-22] MEDS ORDERED: TRANEXAMIC ACID 1,000 MG in IV NS 50ML -- 2ND BAG INJ ONE (08:00)
[2018-08-22] MEDS ORDERED: FAMOTIDINE 20 MG/2 ML VIAL ONE (08:01)
[2018-08-22] MEDS ORDERED: IV NORMAL SALINE 1000ML BAG 1,000 ML IV SCH (09:00)
[2018-08-22] MEDS ORDERED: GLYCOPYRROLATE 1 MG/5 ML VIAL. ONE (09:20)
[2018-08-22] MEDS ORDERED: NEOSTIGMINE METHYLSULFATE 5 MG/5 ML SYRINGE. ONE (09:20)
--- NOTE | 2018-08-22 09:32 | HP ---
ADMIT DATE: 08/22/2018 PREOPERATIVE HISTORY AND PHYSICAL CHIEF COMPLAINT: Painful left total knee arthroplasty. HISTORY OF PRESENT ILLNESS: The patient was previously remotely revised from a unicondylar arthroplasty to a total knee replacement. Recently, he began having more pain and a bone scan showed lucency around the tibial components. Aspiration revealed no evidence of any infection. His surgery was initially delayed due to getting his hemoglobin A1c under control, which is now the case. He also has pain management issues and takes pain medicine on a regular basis prescribed by Dr. Johnson. PAST MEDICAL HISTORY: Significant for hypertension; depression, bipolar; anxiety; chronic back pain; obstructive sleep apnea; diabetes, now better controlled. PAST SURGICAL HISTORY: Tonsillectomy and adenoidectomy, right total knee arthroplasty, left knee unicondylar arthroplasty and then revision. FAMILY HISTORY: Arthritis in his mother. Father is , both bipolar disease, hypertension, heart disease and cancer. Mental illness in an uncle. SOCIAL HISTORY: Smokes occasionally, an occasional cigar. Denies alcohol or drug use. Used to chew tobacco, but quit. MEDICATIONS: List is reviewed. ALLERGIES: He has no known drug allergies. REVIEW OF SYSTEMS: Denies any chest pain, shortness of breath, fever, chills, radiating pain in the extremities, numbness, tingling or other constitutional symptoms. PHYSICAL EXAMINATION: VITAL SIGNS: Per admission sheet. Temp afebrile. HEENT: Atraumatic, normocephalic. HEART: Regular rate and rhythm. LUNGS: Clear to auscultation bilaterally. ABDOMEN: Benign. EXTREMITIES: Examination of the left knee reveals good patellofemoral tracking, ligament stability, full range of motion. He has pain on weightbearing, centered primarily over the proximal tibia. No redness, warmth or erythema. Incision is otherwise well-healed. He has a well-healed arthroplasty incision of the right total knee. Good ligament balance, patellofemoral tracking. Normal hip and ankle stability and alignment bilaterally with intact motor function, distal pulses, sensation, reflexes, skin in both lower extremities throughout. PREVIOUS IMAGING STUDIES: Show the bone scan suspicious for tibial component loosening. Again, previous aspiration showed no concern for an infectious etiology. IMPRESSION: Loose tibial component, total knee arthroplasty, left. TREATMENT PLAN: I had gone over with him previously the risks, benefits, postoperative course of revision including the possibility of continued pain, nerve or blood vessel damage, bleeding, infection, medical or other anesthetic complications among others. He wished to proceed with surgical evaluation and treatment with joint center admission plan to follow today. THEE GOMEZ MD DR: KADE/ritesh JOB#: [id number] / [id number]
--- NOTE | 2018-08-22 11:08 | RAD ---
Two-view left knee dated 08/22/2018. Comparison made to 01/30/2018. Clinical indications: Postop knee replacement. FINDINGS: Interval revision of left knee arthroplasty. Femoral component is stable. There is been replacement with a long stem tibial component. Postsurgical changes of the patella. There is diffuse soft tissue swelling and soft tissue gas with suprapatellar drain in place. No periprosthetic fracture or malalignment IMPRESSION: Interval revision of left knee arthroplasty Electronically signed by: Adam Dejesus MD (08/22/2018 11:05 AM) [id number]
[2018-08-22] MEDS ORDERED: INSULIN LISPRO 100 UNIT/ML 3ML VIAL. SQ ONE (12:00)
[2018-08-22] MEDS: INSULIN LISPRO 300 UNITS/3 ML INSULN.PEN. SQ SCH ×2 (12:00→16:33)
[2018-08-22] MEDS: ONDANSETRON PF 4 MG/2 ML VIAL. IV SCH ×3 (12:00→23:49)
[2018-08-22] MEDS: ONDANSETRON ODT 4 MG TAB.RAPDIS. PO SCH ×2 (12:00→17:53)
[2018-08-22] MEDS: oxyCODONE IR 5 MG TABLET PO PRN ×2 (13:13→17:12)
[2018-08-22] MEDS ORDERED: clonazePAM 1 MG TABLET PO PRN (13:15)
--- NOTE | 2018-08-22 13:15 | NUR ---
received from recovery. his blood pressure is elevated; states he has not needed to take his bp last few days; but it is elevated here. he is rating his pain "7". medicated with marielena IR 10 mg to see if helps with blood pressure. home medications renewed (lisinopril) and will be given . he has good pulses, sensation and rom in lower extremities. he has gotten up to void; states he voided large amount
[2018-08-22] MEDS ORDERED: SENNOSIDES/DOCUSATE 8.6/50MG TABLET. PO PRN (13:30)
[2018-08-22] MEDS ORDERED: tiZANidine 4 MG TABLET. PO PRN (13:30)
--- NOTE | 2018-08-22 15:40 | PDOC4 ---
Operative Note Operative Note Date of surgery: 08/22/2018 Preoperative diagnosis: Loose tibial component left total knee arthroplasty Postoperative diagnosis: Same Operative procedure: Revision tibial component left total knee arthroplasty Surgeon: Margarita Anesthesia: GenBear Estimated blood loss: 50 mL Complications: None Operative indications: Please see my preoperative history and physical for detailed operative indications and note that he apparently by bone scan and symptoms has a loose tibial component without evidence of infection. We had talked about risks benefits postoperative course of possible revision and the use of a more constrained stemmed type implant possibility of infection nerve or blood vessel damage continued pain medical or other anesthetic complications among others all his questions were answered he wishes to proceed with surgical evaluation and treatment. Operative text: Patient identified procedure verified patient placed in the supine position on the operating table. After adequate amounts of general anesthesia were administered a tourniquet was placed on the thigh and the left lower extremity was prepped and draped in standard sterile fashion. After timeout was performed patient procedure identified and verified the left or extremity was exsanguinated by Esmarch bandage tourniquet inflated to 350 mmHg a midline incision was made with a medial parapatellar approach. Patella was everted femoral component was noted to be well fixed he did have some synovial irritation which was excised and the tibial component was gently removed with an osteotome after adequate exposure and minimal bone involvement noted. An intramedullary guide was used to do a cleanup cut and a size 4 tibial tray trial was selected and provided excellent balance in flexion extension and varus valgus. Sclerotic bone medially was drilled for better cement penetration thorough irrigation carried out normal saline solution bleeding points controlled by electrocautery in the capsule and a size 4 Legion revision stem with 120 mm stem extension was assembled on the back table and cemented in place with polymethylmethacrylate cement, excess cement was removed and a size 15 posterior stabilized polyethylene insert was locked into place and again excellent range of motion ligament balance patellofemoral tracking were observed pain catheter mixture was injected throughout the joint capsule pain catheter and Hemovac drain were placed retinacular closure accomplished with #2 Ethibond suture and running PDS strata fix suture. Subcutaneous closure with buried Vicryl suture subcuticular 30 strata fix Monocryl and Acticoat with a yeimy dressing were applied patient was returned recovery room in stable condition having tolerated procedure well toes were noted be warm pink following deflation of the tourniquet THEE GOMEZ MD August 22, 2018 15:40
[2018-08-22] MEDS ORDERED: WARFARIN 7.5 MG TABLET. PO ONE (16:00)
[2018-08-22] MEDS: metFORMIN 500 MG TABLET PO SCH (16:27)
[2018-08-22] MEDS: FERROUS SULFATE 325 MG TABLET. PO SCH (16:27)
--- NOTE | 2018-08-22 17:53 | NUR ---
Zofran held, no nausea or vomiting noted
[2018-08-22] MEDS: KETOROLAC 30MG VIAL 30 MG, BUPIVACAINE MPF 0.25% 20 ML, EPINEPHrine 0.5 MG in TOTAL VOL... INT ART SCH (18:21)
[2018-08-22] MEDS: LITHIUM CARBONATE 300 MG CAPSULE PO SCH (20:42)
[2018-08-22] MEDS ORDERED: DOXEPIN HCL 25 MG CAPSULE. PO SCH (21:00)
[2018-08-22] MEDS ORDERED: NON FORMULARY ITEM (Sitagliptin Phos/Metformin Hcl (Janumet 50-1,000 Mg Tablet) 1 TAB) PO SCH (21:00)
[2018-08-23 03:07] VITALS: BP 139/90
[2018-08-23] MEDS: KETOROLAC 30MG VIAL 30 MG, BUPIVACAINE MPF 0.25% 20 ML, EPINEPHrine 0.5 MG in TOTAL VOL... INT ART SCH (05:47)
[2018-08-23] MEDS: traMADol 50 MG TABLET PO SCH ×3 (05:53→17:39)
[2018-08-23] MEDS ORDERED: MAGNESIUM HYDROXIDE 2,400 MG/30 ML ORAL.SUSP. PO PRN (06:00)
[2018-08-23] MEDS: ONDANSETRON ODT 4 MG TAB.RAPDIS. PO SCH ×2 (06:00)
[2018-08-23] MEDS: ONDANSETRON PF 4 MG/2 ML VIAL. IV SCH (06:00)
[2018-08-23] MEDS ORDERED: GABAPENTIN 100 MG CAPSULE. PO SCH (06:00)
[2018-08-23 06:30] VITALS: BP 138/90
[2018-08-23] MEDS: LEVOTHYROXINE 100 MCG TABLET PO SCH (07:22)
--- NOTE | 2018-08-23 07:42 | PDOC ---
ORTHO PROGRESS NOTES Subjective Patient states feeling well with no complaints at this time. Post-op Day: 1 Procedure Revision of Left knee tibial component Total Knee Arthroplasty. Vitals Vital Signs Date Time Temp Pulse Resp B/P (MAP) Pulse Ox O2 Delivery O2 Flow Rate FiO2 08/23/18 06:30 98.0 63 20 138/90 (106) 96 Room Air 98.0 08/22/18 18:15 2.0 Labs Laboratory Tests Test 08/22/18 06:30 08/22/18 10:55 08/22/18 16:12 08/22/18 20:47 Prothrombin Time 12.9 SEC (11.7-14.0) Prothromb Time International Ratio 1.0 (0.8-1.1) Activated Partial Thromboplast Time 34 SEC (24-38) Glucose (Fingerstick) 275 mg/dL (70-99) 244 mg/dL (70-99) 167 mg/dL (70-99) Test 08/23/18 06:34 Glucose (Fingerstick) 107 mg/dL (70-99) Laboratory Tests Test 08/22/18 10:55 08/22/18 16:12 08/22/18 20:47 08/23/18 06:34 Glucose (Fingerstick) 275 mg/dL (70-99) 244 mg/dL (70-99) 167 mg/dL (70-99) 107 mg/dL (70-99) Notes awake and alert sitting up in chair at bedside Assessment and Plan 1st day postop with minimal complaint of pain motor and sensory intact distally dressing dry and intact PT today VALENTINA MELGOZA APRN August 23, 2018 07:42
[2018-08-23 07:53] VITALS: BP 174/109
[2018-08-23] MEDS: LINAGLIPTIN 5 MG TABLET PO SCH (07:56)
[2018-08-23] MEDS: FERROUS SULFATE 325 MG TABLET. PO SCH ×2 (07:56→16:40)
[2018-08-23] MEDS: metFORMIN 500 MG TABLET PO SCH ×2 (07:56→16:40)
[2018-08-23] MEDS: MELOXICAM 7.5 MG TABLET PO SCH (07:56)
[2018-08-23] MEDS: LITHIUM CARBONATE 300 MG CAPSULE PO SCH ×2 (07:56→20:39)
[2018-08-23] MEDS: MULTIVITAMIN with MINERAL TABLET. PO SCH (07:56)
[2018-08-23] MEDS: ACETAMINOPHEN 500 MG TABLET PO SCH ×3 (07:56→20:40)
[2018-08-23] MEDS: INSULIN LISPRO 300 UNITS/3 ML INSULN.PEN. SQ SCH ×3 (07:57→16:45)
[2018-08-23] MEDS: LISINOPRIL 5 MG TABLET. PO SCH (07:57)
[2018-08-23] MEDS ORDERED: SENNOSIDES/DOCUSATE 8.6/50MG TABLET. PO SCH (09:00)
[2018-08-23] MEDS: oxyCODONE IR 5 MG TABLET PO PRN ×3 (09:05→17:39)
--- NOTE | 2018-08-23 09:18 | NUR ---
FOUND IAC CATHETER ON FLOOR, WIRE STILL ATTACHED TO KNEE WILL DISCONTINUE ORDERED
[2018-08-23 09:26] LABS: HEMATOCRIT 40.2 % (39.0-53.0)
[2018-08-23 09:35] LABS: PROTHROMBIN TIME PATIENT 16.3 SEC (11.7-14.0)
--- NOTE | 2018-08-23 10:57 | NUR ---
Pharmacy Warfarin Dosing Note S: Pharmacy consulted to assist with anticoagulation therapy started 08/22/18 O: DIPTIANASTACIA is a 48 year old M with TKA, left LABS: Last INR: 1.3 Last HGB: 13.0 Last HCT: 40.2 Last PLT: - Last dose of 7.5 mg given on 08/22/18 at 1628 Vitamin K given: N Ongoing Drug Interactions: Synthroid A:INR of 1.3 is below desired range. Target range for this patient is: 1.6 - 2.5 P: Warfarin dose: 4 mg Today at 1600 Bridge Therapy: None Next INR due 08/23/18 Pharmacy anticoagulation service will continue to follow. NAHID TOM [facility], 08/23/18 [id number]
[2018-08-23] MEDS ORDERED: ONDANSETRON ODT 4 MG TAB.RAPDIS. PO PRN (12:00)
[2018-08-23] MEDS ORDERED: ONDANSETRON PF 4 MG/2 ML VIAL. IV PRN (12:00)
[2018-08-23 12:27] VITALS: BP 178/119
[2018-08-23 12:28] VITALS: BP_SYST 137; BP_SYST 171; BP_DIAS 110; BP_DIAS 91
--- NOTE | 2018-08-23 12:29 | NUR ---
BLOOD PRESSURE RECHECKED IMPROVED WITH BP CUFF ADJUSTMENT
--- NOTE | 2018-08-23 12:52 | NUR ---
ENCOURAGED TO ELEVATE BLE & APPLY ICE ORDERED
--- NOTE | 2018-08-23 13:04 | NUR ---
DR. GOMEZ HERE TO SEE PT/SPOUSE, OK WITH DISMISSAL TOMORROW, PRESCRIPTION GIVEN TO SPOUSE FOR FILLING, OXYCODONE 10MG 1 PO Q4H PRN PAIN, COPY PLACED IN CHART
--- NOTE | 2018-08-23 15:31 | NUR ---
HEMOVAC & IAC DISCONTINUED PER ORDER, TOLERATED PROCEDURE WELL
[2018-08-23] MEDS ORDERED: WARFARIN 4 MG TABLET. PO ONE (16:00)
[2018-08-23] MEDS ORDERED: BISACODYL 10 MG SUPP.RECT. PR PRN (16:00)
[2018-08-23 17:40] VITALS: BP 102/72
--- NOTE | 2018-08-23 18:19 | PDOC ---
PROGRESS NOTES Subjective Subjective Problems overnight: Doing much better, he says even with surgical pain the knee feels much better getting up and around already Objective Vital Signs Vital Signs Date Time Temp Pulse Resp B/P (MAP) Pulse Ox O2 Delivery O2 Flow Rate FiO2 08/23/18 17:40 97.8 68 16 102/72 (82) 95 Room Air 97.8 08/22/18 18:15 2.0 Physical Exam Lizet dressing intact he has excellent range of motion and excellent stability intact distal neurovascular status Labs Laboratory Tests Test 08/22/18 06:30 08/22/18 10:55 08/22/18 16:12 08/22/18 20:47 Prothrombin Time 12.9 SEC (11.7-14.0) Prothromb Time International Ratio 1.0 (0.8-1.1) Activated Partial Thromboplast Time 34 SEC (24-38) Glucose (Fingerstick) 275 mg/dL (70-99) 244 mg/dL (70-99) 167 mg/dL (70-99) Test 08/23/18 06:34 08/23/18 08:43 08/23/18 11:37 08/23/18 16:09 Glucose (Fingerstick) 107 mg/dL (70-99) 166 mg/dL (70-99) 167 mg/dL (70-99) Hemoglobin 13.0 g/dL (13.0-17.5) Hematocrit 40.2 % (39.0-53.0) Mean Corpuscular Hemoglobin Concent 32 g/dL (31-37) Prothrombin Time 16.3 SEC (11.7-14.0) Prothromb Time International Ratio 1.3 (0.8-1.1) Laboratory Tests Test 08/22/18 20:47 08/23/18 06:34 08/23/18 08:43 08/23/18 11:37 Glucose (Fingerstick) 167 mg/dL (70-99) 107 mg/dL (70-99) 166 mg/dL (70-99) Hemoglobin 13.0 g/dL (13.0-17.5) Hematocrit 40.2 % (39.0-53.0) Mean Corpuscular Hemoglobin Concent 32 g/dL (31-37) Prothrombin Time 16.3 SEC (11.7-14.0) Prothromb Time International Ratio 1.3 (0.8-1.1) Test 08/23/18 16:09 Glucose (Fingerstick) 167 mg/dL (70-99) Imaging Postop x-rays show excellent alignment of the stemmed revision tibial prosthesis Assessment Assessment POD# [1], S/P [revision tibial component left knee] Plan Plan of Care Continue mobilize with physical therapy Coumadin anticoagulation Anticipate discharge tomorrow, Percocet prescription written THEE GOMEZ MD August 23, 2018 18:19
[2018-08-23] MEDS ORDERED: DOXEPIN 150 MG PO SCH (21:00)
[2018-08-24] MEDS: oxyCODONE IR 5 MG TABLET PO PRN ×3 (03:03→16:47)
[2018-08-24] MEDS: ACETAMINOPHEN 500 MG TABLET PO SCH ×4 (03:03→18:50)
[2018-08-24 06:00] VITALS: BP 131/94
[2018-08-24] MEDS: traMADol 50 MG TABLET PO SCH ×4 (06:16→18:00)
[2018-08-24] MEDS: LEVOTHYROXINE 100 MCG TABLET PO SCH (06:16)
[2018-08-24] MEDS: INSULIN LISPRO 300 UNITS/3 ML INSULN.PEN. SQ SCH ×3 (07:27→16:55)
[2018-08-24 08:08] LABS: HEMATOCRIT 39.5 % (39.0-53.0); HEMOGLOBIN 13.2 g/dL (13.0-17.5)
[2018-08-24 08:19] LABS: PROTHROMBIN TIME PATIENT 16.4 SEC (11.7-14.0)
[2018-08-24] MEDS: metFORMIN 500 MG TABLET PO SCH ×2 (08:19→16:55)
[2018-08-24] MEDS: LITHIUM CARBONATE 300 MG CAPSULE PO SCH (08:20)
[2018-08-24] MEDS: LINAGLIPTIN 5 MG TABLET PO SCH (08:20)
[2018-08-24] MEDS: FERROUS SULFATE 325 MG TABLET. PO SCH ×2 (08:20→16:55)
[2018-08-24] MEDS: MELOXICAM 7.5 MG TABLET PO SCH (08:20)
[2018-08-24] MEDS: MULTIVITAMIN with MINERAL TABLET. PO SCH (08:21)
[2018-08-24] MEDS: LISINOPRIL 5 MG TABLET. PO SCH (08:22)
--- NOTE | 2018-08-24 09:45 | NUR ---
Jude is looking forward to going home today after therapy. he has good motion sensation and pulses in bilateral lower extremities. he is rating his back pain an "8" and his knee a three. ice applied. playing on his laptop.
--- NOTE | 2018-08-24 10:26 | NUR ---
Pharmacy Warfarin Dosing Note S:Pharmacy consulted to assist with anticoagulation therapy started 08/22/18 with target INR: 1.6 - 2.5 O:DIPTIANASTACIA Jacome is a 48 year old M with TKA left LABS: Last INR: 1.4 Last HGB: 13.2 Last HCT: 39.5 Last PLT: - Last dose of 4 mg given on 08/23/18 at 1604 Previous Regimen: Vitamin K given: N Drug Interaction Changes: Ongoing Drug Interactions: Synthroid A:INR of 1.4 is below desired range. Target range for this patient is: 1.6 - 2.5 P: Warfarin dose: 5 mg Prior to Discharge Bridge Therapy: None Next INR due 08/28/18 Pharmacy anticoagulation service will continue to follow. DARRIN [facility], 08/24/18 [id number]
[2018-08-24 12:08] VITALS: BP 131/93
[2018-08-24] MEDS ORDERED: OXYC10TA PO (12:55)
[2018-08-24] MEDS ORDERED: WARF-31 PO (12:55)
[2018-08-24] MEDS ORDERED: WARFARIN 5 MG TABLET. PO ONE (14:00)
--- NOTE | 2018-08-24 16:56 | NUR ---
RESTING IN BED. AWAITING DISMISSAL. AT BEDSIDE. STATES HE WEILL EAT AT HOME AND DOESNT WANT ANYTHING EXCEPT PAIN MEDICATION. ORIGINAL yeimy DRESSING REMOVED AND NEW DRESSING APPLIED- GREEN LIGHT ON. CLEANSED WITH CHLOR PREP PRIOR TO APPLYING CHLOR PREP.
--- NOTE | 2018-08-24 19:04 | NUR ---
reviewed discharge instructions with kassie and . reviewed incisional care, follow up and medications and restrictions to activities of daily living.
--- NOTE | 2018-08-24 20:12 | SNU/HH DC ---
DISCHARGE WITH HOME HEALTH DISCHARGE INFORMATION: Condition on Discharge: Stable CODE STATUS: Code Status: Full HOME HEALTH: Face to Face: I certify this patient is under my care and that I, or a nurse practitioner or physician's medical claims assistant working with me, had a face to face encounter that meets the physician face to face encounter requirements with this patient on [08/23/18]. Medical Complications: S/P Joint Replacement Retirement For: Assess/Skilled Observatio RN For Eval/Treatment: Yes Physical Therapy For: Evalulation/Treatment Pt Meets Homebound Status: Limited distance walking POST DISCHARGE ORDERS: Activity Instructions for Disc: Walk in house, Other, see below Weight Bearing Status after Di: No restrictions, Full weight bearing, As tolerated Bathing Instructions: Shower-keep dressing dry, No Tub Bath until see DIET AFTER DISCHARGE: ADA Wound/Incision Care: Ice to area for comfort, Keep wound/cast CDI, Routine catheter care, Other, see below Other wound/incision instructi: remove battery pack tuesday, August 29; remove batteries unscrew tubing tape CHECKS AFTER DISCHARGE: Checks after discharge: Check blood press - daily Comment: PT/INR to be drawn every Tuesday starting 08/28 FOLLOW-UP: Follow Up With: call [phone] for a 2 week post appt with Dr. Avila Warfarin Follow UP: [facility] manage/monitor coumadin ??? call [phone] TREATMENT/EQUIPMENT ORDERS: Adaptive Equipment Issued: None CERTIFICATION STATEMENT: Certification Statement: Certification Statement: Based on the above finding, I certify that this patient is confined to the home and needs intermittent fci care, physical therapy and/or speech therapy, or continues to need occupational therapy.~ This patient is under my care, and I have initiated the establishment of the plan of care.~ This patient will be followed by myself or a community physician who will periodically review the plan of care. Home Meds Reported Medications Oxycodone Hcl (OXYCODONE HCL IMMED.RELEASE) 10 Mg Tablet, 10 MG PO PRN Q4HRS PRN for PAIN, #80 TAB 0 Refills 08/24/18 Warfarin Sodium (WARFARIN SODIUM) 5 Mg Tablet, 5 MG PO DAILY for BLOOD THINNER, #30 TAB 08/24/18 Meloxicam (MOBIC) 15 Mg Tablet, 1 TAB PO DAILY for for surgery, #30 TAB 1 Refill 08/22/18 Warfarin Sodium (COUMADIN) 5 Mg Tablet, 5 MG PO ONCE for blood thinner, #30 TAB 08/22/18 [place] Carbonate (LITHIUM CARBONATE) 300 Mg Tablet, 1 TAB PO BID for BIPOLAR, #60 TAB 1 Refill 08/08/18 Lisinopril (LISINOPRIL) 2.5 Mg Tablet, 5 MG PO DAILY for FOR HYPERTENSION, #30 TAB 0 Refills 05/26/17 Oxycodone/Apap 7.5-325 (PERCOCET 7.5-325 MG TABLET ) 1 Each Tablet, 1 TAB PO PRN Q6HRS PRN for PAIN, TAB 0 Refills 08/25/15 Tizanidine Hcl (ZANAFLEX) 4 Mg Capsule, 1 CAP PO TID PRN for MUSCLE SPASTICITY, #90 CAP 08/25/15 Sitagliptin Phos/Metformin Hcl (JANUMET 50-1,000 MG TABLET) 1 Each Tablet, 1 TAB PO BID for diabetes 01/17/15 Levothyroxine Sodium (SYNTHROID) 100 Mcg Tablet, 100 MCG PO DAILYAC for THYROID 01/17/15 Doxepin Hcl (DOXEPIN HCL) 50 Mg Capsule, 300 MG PO HS for sleep/anxiety 01/17/15 Clonazepam (KLONOPIN) 0.5 Mg Tablet, 1 MG PO PRN DAILY PRN for ANXIETY / AGITATION 03/15/13 THEE AVILA MD August 24, 2018 20:12
--- NOTE | 2018-08-24 20:34 | NUR ---
Final review of discharge meds/orders done w/ patient and spouse. Escorted by SHIV Orr per w/c to private vehicle. Patient in good spirits, ambulates well and has his valuables.
--- NOTE | 2018-08-29 09:48 | DS ---
DATE OF DISCHARGE: 08/24/2018 PRINCIPAL DIAGNOSES: Loose tibial component, left total knee arthroplasty. SURGICAL PROCEDURE: Includes revision tibial component, left total knee arthroplasty. DISPOSITION MEDICATIONS: Include oxycodone 10 mg p.o. q. 4 hours p.r.n. pain, dispensed #80. Warfarin as directed by anticoagulation clinic, current dose 5 mg p.o. daily. Resume home medications. ACTIVITY: Weightbearing as tolerated, standard total knee protocol, maintain DEANA dressing. DISCHARGE INSTRUCTIONS: Report any redness, drainage, fever, chills, drainage outside the dressing, uncontrolled pain or other problems. Follow up with Dr. Avila 2 weeks. BRIEF DESCRIPTION OF HOSPITAL COURSE: The patient underwent an uncomplicated tibial component revision of a total knee arthroplasty that was loose. No signs of infection were noted. He actually noticed some immediate pain relief, getting up and around with the revision. He advanced through physical therapy with safe activities of daily living and was discharged home on postoperative day #2 in stable condition. THEE AVILA MD DR: KADE/nts JOB#: [id number] / [id number]
[2018-09-18] MEDS ORDERED: OXYC1TAB8 PO (16:22)
== END 2018-08-24 20:40 | disposition home health service (06) | DRG 468 ==
LOC: OPSVCIP 05:44 → 4 SOUTHEST 12:29
PROVIDERS: ADMIT Orthopaedic Surgery; ATTEND Orthopaedic Surgery
PROC: 0SWW0JZ Revision of Synthetic Substitute in Left Knee Joint, Tibial Surface, Open Approach (ICD-10-PCS; principal; 2018-08-22 07:30)
DX: T84.033A Mechanical loosening of internal left knee prosthetic joint, initial encounter (principal); I10 Essential (primary) hypertension; G47.33 Obstructive sleep apnea (adult) (pediatric); F31.9 Bipolar disorder, unspecified; F41.9 Anxiety disorder, unspecified; G89.29 Other chronic pain; E11.9 Type 2 diabetes mellitus without complications; F17.290 Nicotine dependence, other tobacco product, uncomplicated; Z96.651 Presence of right artificial knee joint; Y83.1 Surgical operation with implant of artificial internal device as the cause of abnormal reaction of the patient, or of later complication, without mention of misadventure at the time of the procedure; Y92.89 Other specified places as the place of occurrence of the external cause; Z82.61 Family history of arthritis; Z82.49 Family history of ischemic heart disease and other diseases of the circulatory system
CPT/HCPCS: 36415; 73560; 82962; 85014; 85018; 85610; 85730; 86850; 86900; 86901; A7015; C1713; C1776; J0171; J0330; J0696; J1100; J1815; J1885; J2001; J2250; J2270; J2370; J2405; J2704; J2710; J2795; J3010; J3490; J7030; J7120; Q0162; 97116; 97150; 97530; 97535; C1769

== ENCOUNTER 2018-09-19 09:03 | Inpatient (IN) | payer BC, MEDICARE ==
[~2018-09-19] VITALS: Ht 170.2 cm; Wt 122.5 kg
[~2018-09-19 09:03] MED LIST changes: +IV RINGERS,LACTATED 1000ML 1,000 ML IV SCH; +MELO15TA6 PO; +MORPHINE SULFATE 2 MG/ML VIAL. IV PRN; +ONDANSETRON PF 4 MG/2 ML VIAL. IV PRN; +OXYC10TA PO; +OXYC1TAB8 PO; +WARF-31 PO; +fentaNYL PF VIAL 100 MCG/2 ML VIAL IV PRN
[2018-09-19] MEDS ORDERED: ONDANSETRON PF 4 MG/2 ML VIAL. ONE (10:29)
[2018-09-19] MEDS ORDERED: MIDAZOLAM HCL/PF 2 MG/2 ML VIAL. ONE (10:29)
[2018-09-19] MEDS ORDERED: FAMOTIDINE 20 MG/2 ML VIAL ONE (10:29)
[2018-09-19] MEDS ORDERED: LIDOCAINE 2% PF 5 ML VIAL. ONE (10:29)
[2018-09-19] MEDS ORDERED: PROPOFOL 20 ML IV ONE (10:29)
[2018-09-19] MEDS ORDERED: fentaNYL PF VIAL 100 MCG/2 ML VIAL ONE ×3 (10:29→13:38)
[2018-09-19] MEDS ORDERED: VANCOMYCIN 1 GM VIAL. ONE ×2 (10:46→11:20)
[2018-09-19] MEDS ORDERED: DEXAMETHASONE SOD PHOS 4 MG/ML VIAL ONE (11:13)
[2018-09-19] MEDS ORDERED: ROCURONIUM 50 MG/5 ML VIAL. ONE (11:14)
[2018-09-19] MEDS ORDERED: KETAMINE HCL IN NACL, ISO-OSM 50 MG/5 ML SYRINGE ONE (11:43)
[2018-09-19] MEDS ORDERED: METOPROLOL TARTRATE 5 MG/5 ML VIAL. IVP ONE (11:55)
[2018-09-19] MEDS ORDERED: hydrALAZINE 20 MG/ML VIAL. ONE (12:39)
[2018-09-19] MEDS ORDERED: NEOSTIGMINE METHYLSULFATE 5 MG/5 ML SYRINGE. ONE (12:45)
[2018-09-19] MEDS ORDERED: GLYCOPYRROLATE 1 MG/5 ML VIAL. ONE (12:45)
[2018-09-19] MEDS ORDERED: SEVOFLURANE > 120 MINUTES. IH ONE (13:19)
[2018-09-19] MEDS ORDERED: PROCHLORPERAZINE 10 MG/2 ML VIAL. ONE (13:37)
[2018-09-19] MEDS: fentaNYL PF VIAL 100 MCG/2 ML VIAL IV PRN ×3 (13:45→14:30)
[2018-09-19] MEDS: PROCHLORPERAZINE 10 MG/2 ML VIAL. IV PRN ×2 (13:45→14:45)
[2018-09-19] MEDS ORDERED: PROCHLORPERAZINE 5 MG TABLET. PO PRN (14:30)
[2018-09-19] MEDS ORDERED: MORPHINE SULFATE 2 MG/ML VIAL. IV PRN (14:30)
[2018-09-19] MEDS ORDERED: oxyCODONE/APAP 7.5/325 1 TAB TABLET PO PRN (14:30)
[2018-09-19] MEDS ORDERED: diphenhydrAMINE 50 MG/ML VIAL IV PRN (14:30)
[2018-09-19] MEDS ORDERED: DEXTROSE 50% 25 GM / 50ML DISP.SYRIN. IV PRN (14:30)
[2018-09-19] MEDS ORDERED: fentaNYL PF VIAL 100 MCG/2 ML VIAL IV PRN (14:30)
[2018-09-19] MEDS ORDERED: 0.9 % SODIUM CHLORIDE 10 ML DISP.SYRIN. IV PRN (14:30)
[2018-09-19] MEDS ORDERED: ZOLPIDEM 5 MG TABLET. PO PRN (14:30)
[2018-09-19] MEDS ORDERED: CALCIUM CARBONATE 500 MG TAB.CHEW PO PRN (14:30)
[2018-09-19] MEDS ORDERED: HYDROmorphone 2 MG/ML VIAL ONE ×2 (14:38→14:41)
[2018-09-19] MEDS: HYDROmorphone 2 MG/ML VIAL IV PRN ×2 (14:45→16:35)
--- NOTE | 2018-09-19 17:43 | PDOC4 ---
Operative Note Operative Note Date of surgery: 09/19/2018 Preoperative diagnosis: Recent right knee drainage status post initial healing of a surgery for revision tibial component for loosening Postoperative diagnosis: Concern for potential infection and joint involvement Operative procedure: Irrigation debridement and polyethylene exchange left knee Surgeon: Margarita Assist: Anuradha Anesthesia: Gen. Estimated blood loss: 75 mL Complications: None Intraoperative cultures and Gram stain sent, preliminary Gram stain results noting no organisms on either fluid or tissue culture, moderate white blood cells noted in fluid minimal in tissue, some red blood cells noted in both Operative indications: Chang is a 48-year-old male that underwent revision of a tibial component for aseptic loosening and seemed to be healing up relatively uneventfully aside from a small area of scab that occasionally had some small amount of serous drainage. He indicated that it was healing well until his dog jumped on it and seemed to open it up more. Careful wound care was administered and despite ongoing wound care and dressing management he seemed to develop more drainage and I went over with him the desirability of operative exploration and appropriate treatment. We discussed possible seriousness of prosthetic joint infection and possible treatment options associated depending on intraoperative findings. All his questions were answered he wishes to proceed with surgical evaluation and treatment which was set up urgently based on his most recent clinic evaluation. Operative text: Patient was identified procedure verified patient placed in the supine position on the operating table. After adequate amounts of general anesthesia were administered the left lower extremity was prepped and draped in standard sterile fashion. After timeout was performed patient procedure identified and verified the knee joint was first aspirated through a lateral suprapatellar site unrelated to the distal anterior midline incision. Some cloudy concerning appearing fluid was aspirated and sent for initial Gram stain and culture as he was on no preoperative antibiotic nor had he received any other than perioperatively at the time of this index revision procedure. I decided at this point to completely explore debride and perform a polyethylene exchange therefore anterior incision was opened and a medial parapatellar approach was carried out arthrotomy closure was all intact superiorly and the only evidence of potential communication was at the very distal aspect of his wound where there was some fat necrosis and some reactive synovitis throughout the joint capsule that was extensively debrided. No evidence of any bony involvement or softening components were well placed and solidly fixated. Deep tissue was taken for culture from the post area of the distal femur around the femoral implant and likewise sent for Gram stain. Polyethylene was removed to allow access to the posterior aspect of the joint and gutter areas patellar component was well fixated and no abnormal wear noted on any of the components. The size and thickness of the component was noted has a size 3 to 4:15 millimeters thick polyethylene articulating surface. After extensive debridement bleeding points controlled by electrocautery and thorough irrigation with bactisure and then with normal saline solution, a replacement polyethylene component was mistakenly selected for a Legion tibia but obviously did not lock appropriately due to its differing mechanism and the correct journey 2 polyethylene component size 3 to 4:15 millimeters thickness was selected to match the tibial component and was installed without difficulty. A total of 1 g of vancomycin powder was sprinkled throughout the knee joint as well as 1 g vancomycin administered intravenously after cultures were sent. Intraoperative culture results were noted prior to the polyethylene exchange procedure. A Hemovac drain was placed and retinacular closure accomplished with interrupted #1 PDS suture and reinforced with running #1 PDS strata fix suture. Subcutaneous closure with 2-0 PDS suture skin closure with yasmeen. Lizet dressing with Actico at was placed and patient was returned recovery room in stable condition having tolerated procedure well. Anuradha aceves was present for the procedure assisted in the prepping draping retraction and skin closure THEE GOMEZ MD Sep 19, 2018 17:43
[2018-09-19] MEDS ORDERED: INSULIN LISPRO 100 UNIT/ML 3ML VIAL for OP,RR ONLY. SQ PRN (17:45)
[2018-09-19 18:00] VITALS: BP 147/76
[2018-09-19] MEDS: ONDANSETRON ODT 4 MG TAB.RAPDIS. PO SCH (18:00)
--- NOTE | 2018-09-19 18:00 | NUR ---
Pt. here from PACU via bed, at bedside. Rates pain at 4/10, states 4 is tolerable. LLE drsg CDI, Hemovac in tact, Lizet drsg intact.
[2018-09-19] MEDS ORDERED: IV NORMAL SALINE 1000ML BAG 1,000 ML IV SCH (19:00)
[2018-09-19 19:20] VITALS: BP 131/74
[2018-09-19] MEDS: ONDANSETRON PF 4 MG/2 ML VIAL. IV SCH (19:23)
[2018-09-19] MEDS: tiZANidine 4 MG TABLET. PO PRN (19:39)
[2018-09-19] MEDS: clonazePAM 1 MG TABLET PO PRN (21:20)
[2018-09-19] MEDS: LITHIUM CARBONATE 300 MG CAPSULE PO SCH (21:20)
[2018-09-19] MEDS: DOXEPIN HCL 150 MG PO SCH (21:20)
[2018-09-19] MEDS: oxyCODONE IR 5 MG TABLET PO PRN (22:57)
[2018-09-19] MEDS ORDERED: VANCOMYCIN 1 GM in IV NORMAL SALINE 250ML 250 ML IV ONE (23:00)
[2018-09-19 23:18] VITALS: BP 131/72
[2018-09-20] MEDS: oxyCODONE IR 5 MG TABLET PO PRN ×5 (02:43→22:58)
[2018-09-20 03:34] VITALS: BP 156/98
[2018-09-20 04:55] LABS: PROTHROMBIN TIME PATIENT 24.4 SEC (11.7-14.0)
[2018-09-20] MEDS: ONDANSETRON ODT 4 MG TAB.RAPDIS. PO SCH ×3 (05:51→12:00)
[2018-09-20] MEDS: LEVOTHYROXINE 100 MCG TABLET PO SCH (05:51)
[2018-09-20] MEDS ORDERED: MAGNESIUM HYDROXIDE 2,400 MG/30 ML ORAL.SUSP. PO PRN (06:00)
[2018-09-20] MEDS: ONDANSETRON PF 4 MG/2 ML VIAL. IV SCH ×3 (06:00→12:00)
[2018-09-20 07:00] VITALS: BP 157/96
[2018-09-20] MEDS: ACETAMINOPHEN 500 MG TABLET PO SCH ×3 (07:46→20:39)
[2018-09-20] MEDS: MULTIVITAMIN with MINERAL TABLET. PO SCH (07:48)
[2018-09-20] MEDS: MELOXICAM 7.5 MG TABLET PO SCH (07:48)
[2018-09-20] MEDS: LINAGLIPTIN 5 MG TABLET PO SCH (07:48)
[2018-09-20] MEDS: LISINOPRIL 5 MG TABLET. PO SCH (07:48)
[2018-09-20] MEDS: LITHIUM CARBONATE 300 MG CAPSULE PO SCH ×2 (07:48→20:39)
[2018-09-20] MEDS: metFORMIN 500 MG TABLET PO SCH ×2 (07:49→17:49)
[2018-09-20] MEDS: FERROUS SULFATE 325 MG TABLET. PO SCH ×2 (07:49→17:49)
[2018-09-20] MEDS: SENNOSIDES/DOCUSATE 8.6/50MG TABLET. PO SCH (07:49)
--- NOTE | 2018-09-20 09:38 | PDOC ---
Infectious Disease Note Vital Sign Vital Signs Vital Signs Date Time Temp Pulse Resp B/P (MAP) Pulse Ox O2 Delivery O2 Flow Rate FiO2 09/20/18 07:48 84 157/96 09/20/18 07:43 Room Air 09/20/18 07:00 99.1 18 98 99.1 09/19/18 14:45 8.0 Labs Lab Laboratory Tests Test 09/19/18 17:39 09/19/18 21:03 09/20/18 02:50 09/20/18 07:33 Glucose (Fingerstick) 314 mg/dL (70-99) 313 mg/dL (70-99) 190 mg/dL (70-99) Prothrombin Time 24.4 SEC (11.7-14.0) Prothromb Time International Ratio 2.2 (0.8-1.1) Micro Microbiology 09/19/18 Gram Stain - Final, Complete 09/19/18 Gram Stain - Final, Complete Objective Assessment Left TKA infection s/p I and D, polyexchange 09/19/18 HTN DM Hypothyroidism Obesity Plan Plan of Care vanc and zosyn check cultures d/w pt and in detail RUTH DOUGLASS MD Sep 20, 2018 09:38
[2018-09-20] MEDS ORDERED: VANCOMYCIN 2 GM in IV NORMAL SALINE 500ML BAG 500 ML IV ONE (10:00)
[2018-09-20 10:17] LABS: BASO % 0 % (0-3); EOS % 0 % (0-3); HEMATOCRIT 31.8 % (39.0-53.0); HEMOGLOBIN 10.6 g/dL (13.0-17.5); LYMPH # 1.3 x10^3/uL (1.0-4.8); LYMPH % 20 % (24-48); MEAN CORPUSCULAR HEMOGLOBIN 27 pg (25-35); MEAN CORPUSCULAR HGB CONC 33 g/dL (31-37); MEAN CORPUSCULAR VOLUME 81 fL (79-100); MONO # 0.5 x10^3/uL (0.0-1.1); MONO % 8 % (0-9); NEUT # 4.8 x10^3uL (1.8-7.7); NEUT % 72 % (31-73); PLATELET COUNT 431 x10^3/uL (140-400); RED BLOOD COUNT 3.93 x10^6/uL (4.30-5.70); RED CELL DISTRIBUTION WIDTH 14.2 % (11.5-14.5); WHITE BLOOD COUNT 6.7 x10^3/uL (4.0-11.0)
[2018-09-20 10:23] LABS: ALBUMIN 2.7 g/dL (3.4-5.0); ALBUMIN/GLOBULIN RATIO 0.6 (1.0-1.7); CALCIUM 9.4 mg/dL (8.5-10.1); GFR 79.4; POTASSIUM 3.9 mmol/L (3.5-5.1); TOTAL BILIRUBIN 0.5 mg/dL (0.2-1.0); TOTAL PROTEIN 6.9 g/dL (6.4-8.2)
[2018-09-20 11:00] VITALS: BP 159/104
--- NOTE | 2018-09-20 11:18 | NUR ---
SW following for discharge planning. Discussed with RN, pt is from home with and [facility]. RN advised no SW needs at this time. SW will continue to follow.
[2018-09-20] MEDS ORDERED: ONDANSETRON ODT 4 MG TAB.RAPDIS. PO PRN (12:00)
[2018-09-20] MEDS ORDERED: ONDANSETRON PF 4 MG/2 ML VIAL. IV PRN (12:00)
[2018-09-20] MEDS: VANCOMYCIN PER PHARMACY MC PRN (13:13)
--- NOTE | 2018-09-20 13:13 | NUR ---
Pharmacy Vancomycin Dosing Note S: Consulted to monitor and dose vancomycin started 09/19/18. O: FLORECITAYVONNEFLORECITAANASTACIA is a 48 year old M with , INFECTED KNEE . Other Antibiotics: ZOSYN LABS: Last BUN: 12 Last Creatinine: 1.0 Creatinine Clearance: > 100 mL/min Last WBC: 6.7 Tmax (past 24 hours): 99.1 Vancomycin Dosing: Dosing Weight: Actual Target Trough: 10-20 A: Based on: VANCO dosing guidelines P: 1. Begin Vancomycin 2000mg LOAD dose, then 1750 mg IV q12h 2. Follow up Trough level on 09/22/18 at 0030 3. Pharmacy will continue to monitor, follow and adjust therapy as needed. TAWNY SCHAEFER [facility], 09/20/18 [id number]
[2018-09-20] MEDS: PIPERACILLIN/TAZOBACTAM 3.375 GM in IV NORMAL SALINE 50ML 50 ML IV SCH ×3 (14:31→22:59)
[2018-09-20 15:00] VITALS: BP 159/104
[2018-09-20] MEDS ORDERED: BISACODYL 10 MG SUPP.RECT. PR PRN (16:00)
[2018-09-20] MEDS: tiZANidine 4 MG TABLET. PO PRN (17:54)
--- NOTE | 2018-09-20 18:54 | PDOC ---
PROGRESS NOTES Subjective Subjective Problems overnight: Knee is mildly sore but getting up and around reasonably well Objective Vital Signs Vital Signs Date Time Temp Pulse Resp B/P (MAP) Pulse Ox O2 Delivery O2 Flow Rate FiO2 09/20/18 17:54 Room Air 09/20/18 15:00 99.0 88 18 159/104 (122) 99 99.0 09/19/18 14:45 8.0 Physical Exam Dressings are intact distal neurovascular status intact he has good stability Labs Laboratory Tests Test 09/19/18 17:39 09/19/18 21:03 09/20/18 02:45 09/20/18 02:50 Glucose (Fingerstick) 314 mg/dL (70-99) 313 mg/dL (70-99) Nasal Screen MRSA (PCR) Positive (Negative) White Blood Count 6.7 x10^3/uL (4.0-11.0) Red Blood Count 3.93 x10^6/uL (4.30-5.70) Hemoglobin 10.6 g/dL (13.0-17.5) Hematocrit 31.8 % (39.0-53.0) Mean Corpuscular Volume 81 fL (79-100) Mean Corpuscular Hemoglobin 27 pg (25-35) Mean Corpuscular Hemoglobin Concent 33 g/dL (31-37) Red Cell Distribution Width 14.2 % (11.5-14.5) Platelet Count 431 x10^3/uL (140-400) Neutrophils (%) (Auto) 72 % (31-73) Lymphocytes (%) (Auto) 20 % (24-48) Monocytes (%) (Auto) 8 % (0-9) Eosinophils (%) (Auto) 0 % (0-3) Basophils (%) (Auto) 0 % (0-3) Neutrophils # (Auto) 4.8 x10^3uL (1.8-7.7) Lymphocytes # (Auto) 1.3 x10^3/uL (1.0-4.8) Monocytes # (Auto) 0.5 x10^3/uL (0.0-1.1) Eosinophils # (Auto) 0.0 x10^3/uL (0.0-0.7) Basophils # (Auto) 0.0 x10^3/uL (0.0-0.2) Prothrombin Time 24.4 SEC (11.7-14.0) Prothromb Time International Ratio 2.2 (0.8-1.1) Sodium Level 136 mmol/L (136-145) Potassium Level 3.9 mmol/L (3.5-5.1) Chloride Level 100 mmol/L (98-107) Carbon Dioxide Level 22 mmol/L (21-32) Anion Gap 14 (6-14) Blood Urea Nitrogen 12 mg/dL (8-26) Creatinine 1.0 mg/dL (0.7-1.3) Estimated GFR (Cockcroft-Gault) 79.4 BUN/Creatinine Ratio 12 (6-20) Glucose Level 251 mg/dL (70-99) Calcium Level 9.4 mg/dL (8.5-10.1) Total Bilirubin 0.5 mg/dL (0.2-1.0) Aspartate Amino Transf (AST/SGOT) 11 U/L (15-37) Alanine Aminotransferase (ALT/SGPT) 16 U/L (16-63) Alkaline Phosphatase 128 U/L (46-116) Total Protein 6.9 g/dL (6.4-8.2) Albumin 2.7 g/dL (3.4-5.0) Albumin/Globulin Ratio 0.6 (1.0-1.7) Test 09/20/18 07:33 09/20/18 11:37 09/20/18 16:48 Glucose (Fingerstick) 190 mg/dL (70-99) 223 mg/dL (70-99) 248 mg/dL (70-99) Laboratory Tests Test 09/19/18 21:03 09/20/18 02:45 09/20/18 02:50 09/20/18 07:33 Glucose (Fingerstick) 313 mg/dL (70-99) 190 mg/dL (70-99) Nasal Screen MRSA (PCR) Positive (Negative) White Blood Count 6.7 x10^3/uL (4.0-11.0) Red Blood Count 3.93 x10^6/uL (4.30-5.70) Hemoglobin 10.6 g/dL (13.0-17.5) Hematocrit 31.8 % (39.0-53.0) Mean Corpuscular Volume 81 fL (79-100) Mean Corpuscular Hemoglobin 27 pg (25-35) Mean Corpuscular Hemoglobin Concent 33 g/dL (31-37) Red Cell Distribution Width 14.2 % (11.5-14.5) Platelet Count 431 x10^3/uL (140-400) Neutrophils (%) (Auto) 72 % (31-73) Lymphocytes (%) (Auto) 20 % (24-48) Monocytes (%) (Auto) 8 % (0-9) Eosinophils (%) (Auto) 0 % (0-3) Basophils (%) (Auto) 0 % (0-3) Neutrophils # (Auto) 4.8 x10^3uL (1.8-7.7) Lymphocytes # (Auto) 1.3 x10^3/uL (1.0-4.8) Monocytes # (Auto) 0.5 x10^3/uL (0.0-1.1) Eosinophils # (Auto) 0.0 x10^3/uL (0.0-0.7) Basophils # (Auto) 0.0 x10^3/uL (0.0-0.2) Prothrombin Time 24.4 SEC (11.7-14.0) Prothromb Time International Ratio 2.2 (0.8-1.1) Sodium Level 136 mmol/L (136-145) Potassium Level 3.9 mmol/L (3.5-5.1) Chloride Level 100 mmol/L (98-107) Carbon Dioxide Level 22 mmol/L (21-32) Anion Gap 14 (6-14) Blood Urea Nitrogen 12 mg/dL (8-26) Creatinine 1.0 mg/dL (0.7-1.3) Estimated GFR (Cockcroft-Gault) 79.4 BUN/Creatinine Ratio 12 (6-20) Glucose Level 251 mg/dL (70-99) Calcium Level 9.4 mg/dL (8.5-10.1) Total Bilirubin 0.5 mg/dL (0.2-1.0) Aspartate Amino Transf (AST/SGOT) 11 U/L (15-37) Alanine Aminotransferase (ALT/SGPT) 16 U/L (16-63) Alkaline Phosphatase 128 U/L (46-116) Total Protein 6.9 g/dL (6.4-8.2) Albumin 2.7 g/dL (3.4-5.0) Albumin/Globulin Ratio 0.6 (1.0-1.7) Test 09/20/18 11:37 09/20/18 16:48 Glucose (Fingerstick) 223 mg/dL (70-99) 248 mg/dL (70-99) Assessment Assessment POD# [1], S/P [irrigation debridement of knee with exchange of polyethylene spacer] Plan Plan of Care Gram stains negative for any organisms cultures pending, appreciate infectious disease consult noted vancomycin and Zosyn in the interim pending culture results mobilize as tolerated standard total knee protocol weightbearing as tolerated THEE GOMEZ MD Sep 20, 2018 18:54
[2018-09-20 19:00] VITALS: BP 147/89
[2018-09-20] MEDS: DOXEPIN HCL 150 MG PO SCH (20:40)
--- NOTE | 2018-09-20 21:55 | CONS ---
DATE OF CONSULTATION: 09/20/2018 REQUESTING PHYSICIAN: Dr. Avila. REASON FOR CONSULTATION: Infected total knee arthroplasty. HISTORY OF PRESENT ILLNESS: This is a 48-year-old gentleman with a history of multiple medical problems who has had knee replacement done on the left knee 1-1/2 years ago. The patient had pain and loosening and required revision of the knee on 08/22/2018, the revision of the tibial component of the left total knee done. The patient subsequently, in just a couple of days or so, he started draining and he continued to drain from the knee. Hence, the patient was taken to surgery yesterday and I and D and poly exchange was done. Evidently, it was cloudy sticky fluid. So far, Gram stain is negative. The patient is not on any antibiotics. The patient denied any fever. Denied any nausea, vomiting, diarrhea, chest pain, shortness of breath, abdominal pain, urinary symptoms or bowel symptoms. PAST MEDICAL HISTORY: Positive for diabetes mellitus, hypertension, hypothyroidism, osteoarthritis, bipolar disorder, obstructive sleep apnea, has had tonsillectomy, adenoidectomy. He has had right total knee arthroplasty in the past and the left total knee arthroplasty with revision done as I mentioned in the HPI. SOCIAL HISTORY: Smokes occasionally cigar. No alcohol use or drug use. ALLERGIES: No known drug allergies. CURRENT MEDICATIONS: Reviewed. REVIEW OF SYSTEMS: As per HPI, all other systems reviewed are negative. PHYSICAL EXAMINATION: GENERAL: Alert and oriented gentleman, not in any distress. VITAL SIGNS: Stable, T-max is 99.1. HEENT: NAD. NECK: Supple, no JVP, no lymphadenopathy. LUNGS: Clear. HEART: S1, S2 regular. ABDOMEN: Benign. EXTREMITIES: No edema, cyanosis. SKIN: Unremarkable. Post-surgical dressing not opened on the left knee. NEUROLOGIC: The patient is neurologically alert, awake and appropriate. No focal neurologic deficit. LABORATORY DATA: Only hemoglobin was done, but the prior creatinine has been normal and Gram stain from the knee is so far negative. X-ray reviewed. IMPRESSION: 1. Left total knee arthroplasty revision on 08/22/2018, status post drainage and now incision and drainage on 09/19/2018 with poly exchange. 2. Diabetes. 3. Hypertension. 4. Hypothyroidism. 5. Osteoarthritis. RECOMMENDATIONS: We will get CBC and CMP. We will initiate vancomycin and Zosyn, supportive care and detailed discussion done with the patient and the patient's at the bedside. Informed that so far culture and Gram stain is negative. We will wait and we will discuss and decide the long-term strategy after the cultures at least for a couple of days and discussion with Dr. Avila. Supportive care and we will continue to follow. Thank you very much, Dr. Avila, for giving me the opportunity to participate in this patient's care. RUTH DOUGLASS MD DR: LEAH/ritesh JOB#: [id number] / [id number]
--- NOTE | 2018-09-20 22:00 | NUR ---
Hemovac was d/c'd. Pt. began to bleed, pressure was applied for 5 minutes. Dressing was CDI. Will continue to monitor.
[2018-09-20 23:00] VITALS: BP 120/73
[2018-09-21] MEDS: VANCOMYCIN 1.75 GM in IV NORMAL SALINE 500ML BAG 500 ML IV SCH ×2 (00:52→14:18)
[2018-09-21] MEDS: oxyCODONE IR 5 MG TABLET PO PRN ×5 (02:54→21:39)
[2018-09-21 03:00] VITALS: BP 134/78
[2018-09-21] MEDS: ACETAMINOPHEN 500 MG TABLET PO SCH ×4 (03:00→21:38)
[2018-09-21 04:30] LABS: HEMATOCRIT 30.7 % (39.0-53.0); HEMOGLOBIN 10.2 g/dL (13.0-17.5)
[2018-09-21 04:34] LABS: PROTHROMBIN TIME PATIENT 24.2 SEC (11.7-14.0)
[2018-09-21] MEDS: LEVOTHYROXINE 100 MCG TABLET PO SCH (06:14)
[2018-09-21] MEDS: tiZANidine 4 MG TABLET. PO PRN (06:14)
[2018-09-21] MEDS: PIPERACILLIN/TAZOBACTAM 3.375 GM in IV NORMAL SALINE 50ML 50 ML IV SCH ×3 (06:15→18:44)
[2018-09-21 07:00] VITALS: BP 136/82
[2018-09-21] MEDS: clonazePAM 1 MG TABLET PO PRN (07:08)
[2018-09-21] MEDS: LINAGLIPTIN 5 MG TABLET PO SCH (07:48)
[2018-09-21] MEDS: MULTIVITAMIN with MINERAL TABLET. PO SCH (07:48)
[2018-09-21] MEDS: MELOXICAM 7.5 MG TABLET PO SCH (07:48)
[2018-09-21] MEDS: FERROUS SULFATE 325 MG TABLET. PO SCH ×2 (07:49→17:00)
[2018-09-21] MEDS: LITHIUM CARBONATE 300 MG CAPSULE PO SCH ×2 (07:49→21:38)
[2018-09-21] MEDS: metFORMIN 500 MG TABLET PO SCH ×2 (07:49→17:22)
[2018-09-21] MEDS: LISINOPRIL 5 MG TABLET. PO SCH (07:49)
[2018-09-21] MEDS: SENNOSIDES/DOCUSATE 8.6/50MG TABLET. PO SCH (07:50)
--- NOTE | 2018-09-21 08:51 | PDOC ---
Infectious Disease Note Subjective Subjective pt is feeling much better ROS ROS no n/v/d/sob/fever Vital Sign Vital Signs Vital Signs Date Time Temp Pulse Resp B/P (MAP) Pulse Ox O2 Delivery O2 Flow Rate FiO2 09/21/18 07:50 Room Air 09/21/18 07:49 86 134/78 09/21/18 07:00 98.2 18 100 98.2 Physical Exam PHYSICAL EXAM GENERAL: Alert and oriented gentleman, not in any distress. VITAL SIGNS: Stable, HEENT: NAD. NECK: Supple, no JVP, no lymphadenopathy. LUNGS: Clear. HEART: S1, S2 regular. ABDOMEN: Benign. EXTREMITIES: No edema, cyanosis. SKIN: Unremarkable. Post-surgical dressing not opened on the left knee. NEUROLOGIC: The patient is neurologically alert, awake and appropriate. No focal neurologic deficit. Labs Lab Laboratory Tests Test 09/20/18 11:37 09/20/18 16:48 09/20/18 20:27 09/21/18 04:00 Glucose (Fingerstick) 223 mg/dL (70-99) 248 mg/dL (70-99) 283 mg/dL (70-99) Hemoglobin 10.2 g/dL (13.0-17.5) Hematocrit 30.7 % (39.0-53.0) Mean Corpuscular Hemoglobin Concent 33 g/dL (31-37) Prothrombin Time 24.2 SEC (11.7-14.0) Prothromb Time International Ratio 2.2 (0.8-1.1) Test 09/21/18 07:13 Glucose (Fingerstick) 163 mg/dL (70-99) Micro culture neg so far Objective Assessment 1. Left total knee arthroplasty revision on 08/22/2018, status post drainage and now incision and drainage on 09/19/2018 with poly exchange. 2. Diabetes. 3. Hypertension. 4. Hypothyroidism. 5. Osteoarthritis. Plan Plan of Care vanc and zosyn check cultures d/w pt and in detail fungal and AFB stain and culture added RUTH DOUGLASS MD Sep 21, 2018 08:51
--- NOTE | 2018-09-21 09:31 | NUR ---
IP: Pt is again mrsa screen + requiring contact precautions.
[2018-09-21 11:00] VITALS: BP 133/76
--- NOTE | 2018-09-21 11:57 | NUR ---
SW following for discharge planning. Discussed with RN, pt is from home, needing a PICC line as will need IV abx at discharge, but not sure which ones yet. Currently on vanco and zosyn. Pt has [facility] already. SW will continue to follow.
[2018-09-21] MEDS: VANCOMYCIN PER PHARMACY MC PRN (14:18)
[2018-09-21] MEDS ORDERED: CONTRAST GIVEN. MC PRN (14:30)
[2018-09-21 15:00] VITALS: BP 137/82
[2018-09-21 19:00] VITALS: BP 157/89
[2018-09-21] MEDS: DOXEPIN HCL 150 MG PO SCH (21:00)
--- NOTE | 2018-09-21 21:26 | PDOC ---
PROGRESS NOTES Subjective Subjective Problems overnight: Pain controlled getting up and around reasonably well Objective Vital Signs Vital Signs Date Time Temp Pulse Resp B/P (MAP) Pulse Ox O2 Delivery O2 Flow Rate FiO2 09/21/18 19:00 98.5 88 18 157/89 (111) 96 Room Air 98.5 09/19/18 14:45 8.0 Physical Exam No drainage noted on yeimy dressing no surrounding redness mild swelling as expected distal neurovascular status intact Labs Laboratory Tests Test 09/20/18 02:45 09/20/18 02:50 09/20/18 07:33 09/20/18 11:37 Nasal Screen MRSA (PCR) Positive (Negative) White Blood Count 6.7 x10^3/uL (4.0-11.0) Red Blood Count 3.93 x10^6/uL (4.30-5.70) Hemoglobin 10.6 g/dL (13.0-17.5) Hematocrit 31.8 % (39.0-53.0) Mean Corpuscular Volume 81 fL (79-100) Mean Corpuscular Hemoglobin 27 pg (25-35) Mean Corpuscular Hemoglobin Concent 33 g/dL (31-37) Red Cell Distribution Width 14.2 % (11.5-14.5) Platelet Count 431 x10^3/uL (140-400) Neutrophils (%) (Auto) 72 % (31-73) Lymphocytes (%) (Auto) 20 % (24-48) Monocytes (%) (Auto) 8 % (0-9) Eosinophils (%) (Auto) 0 % (0-3) Basophils (%) (Auto) 0 % (0-3) Neutrophils # (Auto) 4.8 x10^3uL (1.8-7.7) Lymphocytes # (Auto) 1.3 x10^3/uL (1.0-4.8) Monocytes # (Auto) 0.5 x10^3/uL (0.0-1.1) Eosinophils # (Auto) 0.0 x10^3/uL (0.0-0.7) Basophils # (Auto) 0.0 x10^3/uL (0.0-0.2) Prothrombin Time 24.4 SEC (11.7-14.0) Prothromb Time International Ratio 2.2 (0.8-1.1) Sodium Level 136 mmol/L (136-145) Potassium Level 3.9 mmol/L (3.5-5.1) Chloride Level 100 mmol/L (98-107) Carbon Dioxide Level 22 mmol/L (21-32) Anion Gap 14 (6-14) Blood Urea Nitrogen 12 mg/dL (8-26) Creatinine 1.0 mg/dL (0.7-1.3) Estimated GFR (Cockcroft-Gault) 79.4 BUN/Creatinine Ratio 12 (6-20) Glucose Level 251 mg/dL (70-99) Calcium Level 9.4 mg/dL (8.5-10.1) Total Bilirubin 0.5 mg/dL (0.2-1.0) Aspartate Amino Transf (AST/SGOT) 11 U/L (15-37) Alanine Aminotransferase (ALT/SGPT) 16 U/L (16-63) Alkaline Phosphatase 128 U/L (46-116) Total Protein 6.9 g/dL (6.4-8.2) Albumin 2.7 g/dL (3.4-5.0) Albumin/Globulin Ratio 0.6 (1.0-1.7) Glucose (Fingerstick) 190 mg/dL (70-99) 223 mg/dL (70-99) Test 09/20/18 16:48 09/20/18 20:27 09/21/18 04:00 09/21/18 07:13 Glucose (Fingerstick) 248 mg/dL (70-99) 283 mg/dL (70-99) 163 mg/dL (70-99) Hemoglobin 10.2 g/dL (13.0-17.5) Hematocrit 30.7 % (39.0-53.0) Mean Corpuscular Hemoglobin Concent 33 g/dL (31-37) Prothrombin Time 24.2 SEC (11.7-14.0) Prothromb Time International Ratio 2.2 (0.8-1.1) Test 09/21/18 11:38 09/21/18 16:38 09/21/18 20:34 Glucose (Fingerstick) 183 mg/dL (70-99) 162 mg/dL (70-99) 165 mg/dL (70-99) Laboratory Tests Test 09/21/18 04:00 09/21/18 07:13 09/21/18 11:38 09/21/18 16:38 Hemoglobin 10.2 g/dL (13.0-17.5) Hematocrit 30.7 % (39.0-53.0) Mean Corpuscular Hemoglobin Concent 33 g/dL (31-37) Prothrombin Time 24.2 SEC (11.7-14.0) Prothromb Time International Ratio 2.2 (0.8-1.1) Glucose (Fingerstick) 163 mg/dL (70-99) 183 mg/dL (70-99) 162 mg/dL (70-99) Test 09/21/18 20:34 Glucose (Fingerstick) 165 mg/dL (70-99) Assessment Assessment POD# [2], S/P [irrigation debridement with polyethylene exchange] Plan Plan of Care Cultures no growth to date AFB and fungal added continue current antibiotics Weightbearing as tolerated standard total knee activity level THEE GOMEZ MD Sep 21, 2018 21:26
[2018-09-21] MEDS: LACTOBACILLUS RHAMNOSUS GG 1 CAPSULE. PO SCH (21:38)
[2018-09-21 23:00] VITALS: BP 114/79
[2018-09-22] MEDS: PIPERACILLIN/TAZOBACTAM 3.375 GM in IV NORMAL SALINE 50ML 50 ML IV SCH ×4 (00:10→12:10)
[2018-09-22 01:07] LABS: VANC TR 20.9 mcg/mL (10.0-20.0)
--- NOTE | 2018-09-22 01:29 | NUR ---
Pharmacy contacted re: vancomycin trough result and vancomycin dose verified at this time w/ pharmacist.
[2018-09-22] MEDS: VANCOMYCIN 1.75 GM in IV NORMAL SALINE 500ML BAG 500 ML IV SCH (01:34)
[2018-09-22 03:00] VITALS: BP 147/94
[2018-09-22] MEDS: ACETAMINOPHEN 500 MG TABLET PO SCH ×3 (03:00→15:00)
[2018-09-22] MEDS: VANCOMYCIN PER PHARMACY MC PRN (03:17)
--- NOTE | 2018-09-22 03:19 | NUR ---
Pharmacy Vancomycin Dosing Note S: Consulted to monitor and dose vancomycin started 09/19/18. O: DIPTIANASTACIA is a 48 year old M with , INFECTED KNEE . Other Antibiotics: ZOSYN LABS: Last BUN: 12 Last Creatinine: 1.0 Creatinine Clearance: > 100 mL/min Last WBC: 6.7 Last Procalcitonin: Tmax (past 24 hours): 99.1 Microbiology: I/O: 180/- Drug Levels: Last Trough level: 20.9 on 09/22/18 at 0030 Last dose given 09/21/18 at 1418 Vancomycin Dosing: Dosing Weight: Actual Target Trough: 10-20 A: Based on: Trough, Actual Wt and CrCl P: 1. 09/22/18 0230 Continue Vancomycin 1750 mg IV q12h 2. Follow up Trough level on 09/23/18 at 1230 3. Pharmacy will continue to monitor, follow and adjust therapy as needed. DAREN WEBBER RPH, 09/22/18 0319 Signed: 09/22/18 at 0320 by DAREN WEBBER RPH PHA
[2018-09-22] MEDS: LEVOTHYROXINE 100 MCG TABLET PO SCH (05:21)
[2018-09-22] MEDS: oxyCODONE IR 5 MG TABLET PO PRN ×3 (05:23→15:38)
[2018-09-22 07:00] VITALS: BP 137/115
[2018-09-22 07:15] LABS: HEMATOCRIT 31.4 % (39.0-53.0); HEMOGLOBIN 10.4 g/dL (13.0-17.5)
[2018-09-22 07:29] LABS: PROTHROMBIN TIME PATIENT 19.4 SEC (11.7-14.0)
[2018-09-22] MEDS: FERROUS SULFATE 325 MG TABLET. PO SCH (08:39)
[2018-09-22] MEDS: MELOXICAM 7.5 MG TABLET PO SCH (08:39)
[2018-09-22] MEDS: LACTOBACILLUS RHAMNOSUS GG 1 CAPSULE. PO SCH (08:39)
[2018-09-22] MEDS: metFORMIN 500 MG TABLET PO SCH (08:40)
[2018-09-22] MEDS: SENNOSIDES/DOCUSATE 8.6/50MG TABLET. PO SCH (08:41)
[2018-09-22] MEDS: MULTIVITAMIN with MINERAL TABLET. PO SCH (08:41)
[2018-09-22] MEDS: LISINOPRIL 5 MG TABLET. PO SCH (08:41)
[2018-09-22] MEDS: LINAGLIPTIN 5 MG TABLET PO SCH (08:41)
[2018-09-22] MEDS: LITHIUM CARBONATE 300 MG CAPSULE PO SCH (08:41)
[2018-09-22 11:00] VITALS: BP 146/92
--- NOTE | 2018-09-22 11:00 | PDOC ---
Infectious Disease Note Subjective Subjective pt is feeling much better ROS ROS no n/v/d/ Vital Sign Vital Signs Vital Signs Date Time Temp Pulse Resp B/P (MAP) Pulse Ox O2 Delivery O2 Flow Rate FiO2 09/22/18 09:41 Room Air 09/22/18 08:41 71 137/115 09/22/18 07:00 97.9 18 100 97.9 Physical Exam PHYSICAL EXAM GENERAL: Alert and oriented gentleman, not in any distress. VITAL SIGNS: Stable, HEENT: NAD. NECK: Supple, no JVP, no lymphadenopathy. LUNGS: Clear. HEART: S1, S2 regular. ABDOMEN: Benign. EXTREMITIES: No edema, cyanosis. SKIN: Unremarkable. Post-surgical dressing not opened on the left knee. NEUROLOGIC: The patient is neurologically alert, awake and appropriate. No focal neurologic deficit. Labs Lab Laboratory Tests Test 09/21/18 11:38 09/21/18 16:38 09/21/18 20:34 09/21/18 23:05 Glucose (Fingerstick) 183 mg/dL (70-99) 162 mg/dL (70-99) 165 mg/dL (70-99) 184 mg/dL (70-99) Test 09/22/18 00:30 09/22/18 06:20 09/22/18 07:48 Vancomycin Level Trough 20.9 mcg/mL (10.0-20.0) Vancomycin Last Dose Date Vancomycin Last Dose Time 1300 Hemoglobin 10.4 g/dL (13.0-17.5) Hematocrit 31.4 % (39.0-53.0) Mean Corpuscular Hemoglobin Concent 33 g/dL (31-37) Prothrombin Time 19.4 SEC (11.7-14.0) Prothromb Time International Ratio 1.7 (0.8-1.1) Glucose (Fingerstick) 170 mg/dL (70-99) Micro culture neg so far Objective Assessment 1. Left total knee arthroplasty revision on 08/22/2018, status post drainage and now incision and drainage on 09/19/2018 with poly exchange. 2. Diabetes. 3. Hypertension. 4. Hypothyroidism. 5. Osteoarthritis. Plan Plan of Care vanc and zosyn,,, change to dapto and invanz ( pt and and mother RN, understands PSA is not covered, she said it did not smell like psa, and is comfortable not covering for her convenience for not doing 4 times a day zosyn ) check cultures d/w pt and in detail fungal and AFB stain and culture added picc complications and failure possibility discussed wkly cbc, bun/cr, sed rate, cpk, fax to [id number] f/u with me in 2 wks RUTH DOUGLASS MD Sep 22, 2018 11:00
--- NOTE | 2018-09-22 11:30 | NUR ---
SW following for discharge planning. Discussed with RN, pt is likely discharging today. Getting a PICC line, needing home infusion. SW met with pt and pt's family, they are agreeable to home infusion and do not have a preference of which agency, just "however takes the insurance and whoever answers first". SW phoned and faxed referral to [facility], they will run benefits to determine if pt will have a copay. SW will continue to follow.
[2018-09-22] MEDS ORDERED: LIDOCAINE WITH 8.4% SOD BICARB 3 ML DISP.SYRIN. ONE (13:04)
[2018-09-22] MEDS ORDERED: LIDOCAINE WITH 8.4% SOD BICARB 3 ML DISP.SYRIN. INJ ONE (13:30)
[2018-09-22] MEDS ORDERED: ERTAPENEM 1GM IVPB (GENERIC) 50 ML IV ONE (14:00)
--- NOTE | 2018-09-22 14:05 | NUR ---
SW following. Pt is covered at 100% for home infusion. Manny will come by before 153 to do the teaching. [facility] Cayla VELAZQUEZ to meet with pt prior to going home. No further SW needs. Addendum: 09/22/18 at 1610 by MONAE GAONA SW Pt does not need home health after discharge. [facility] to provide IV abx when pt gets home today. RN notified.
[2018-09-22] MEDS ORDERED: NORMAL SALINE IV SCH (14:30)
[2018-09-22] MEDS ORDERED: DAPTOMYCIN IV SCH (14:30)
[2018-09-22 15:00] VITALS: BP 171/101
[2018-09-22] MEDS ORDERED: OXYC10TA PO (15:19)
--- NOTE | 2018-09-22 15:21 | DISCH ---
DISCHARGE INSTRUCTIONS Condition on Discharge Condition on Discharge: Stable Activity After Discharge Activity Instructions for Disc: Walk in house, Other, see below Bathing Instructions: Shower-keep dressing dry Lifting Instructions after Dis: No heavy lifting, No pulling or pushing, Do not lift >10 pounds Exercise Instruction after Dis: Exercise per therapy Driving Instructions after Dis: Do not drive Weight Bearing Status after Di: As tolerated Diet after Discharge Diet after Discharge: Diabetic No Calorie Level Diet Texture: Regular Wound Incision Care Wound/Incision Care: Ice to area for comfort, Do not change dressing (maintain yeimy dressing, call if saturated), Routine catheter care, Other, see below Wound Care Equipment: Dressings Contacting the [facility] after DC Call your doctor for: Concerns you may have Follow-Up Follow up with: Dr. Avila 10 days Treatment/Equipment after DC Adaptive Equipment Issued: None THEE AVILA MD Sep 22, 2018 15:21
--- NOTE | 2018-09-22 15:45 | SNU/HH DC ---
DISCHARGE WITH HOME HEALTH DISCHARGE INFORMATION: Discharge Date: Sep 22, 2018 Final Diagnosis: Status post irrigation debridement of knee wound Condition on Discharge: Stable CODE STATUS: Code Status: Full HOME HEALTH: Face to Face: I certify this patient is under my care and that I, or a nurse practitioner or physician's tax accounting assistant working with me, had a face to face encounter that meets the physician face to face encounter requirements with this patient on [09/22/18]. Medical Complications: DM, S/P Joint Replacement RN For Eval/Treatment: Yes Physical Therapy For: Evalulation/Treatment Pt Meets Homebound Status: Limited distance walking POST DISCHARGE ORDERS: Activity Instructions for Disc: Walk in house, Other, see below Weight Bearing Status after Di: As tolerated Bathing Instructions: Shower-keep dressing dry DIET AFTER DISCHARGE: ADA Wound/Incision Care: Ice to area for comfort, Do not change dressing (maintain yeimy dressing, call if saturated) FOLLOW-UP: Follow up with: Dr. Avila 10 days TREATMENT/EQUIPMENT ORDERS: Adaptive Equipment Issued: None CERTIFICATION STATEMENT: Certification Statement: Certification Statement: Based on the above finding, I certify that this patient is confined to the home and needs intermittent shelter care, physical therapy and/or speech therapy, or continues to need occupational therapy.~ This patient is under my care, and I have initiated the establishment of the plan of care.~ This patient will be followed by myself or a community physician who will periodically review the plan of care. Home Meds Active Scripts Oxycodone Hcl (OXYCODONE HCL IMMED.RELEASE) 10 Mg Tablet, 10 MG PO PRN Q4HRS PRN for PAIN, #60 TAB 0 Refills Prov:THEE AVILA MD 09/22/18 Reported Medications Oxycodone Hcl/Acetaminophen (OXYCODON-ACETAMINOPHEN 7.5-325) 1 Each Tablet, 1 EACH PO PRN Q6HRS PRN for PAIN, TAB 0 Refills 09/18/18 Warfarin Sodium (WARFARIN SODIUM) 5 Mg Tablet, 5 MG PO DAILY for BLOOD THINNER, #30 TAB 08/24/18 Meloxicam (MOBIC) 15 Mg Tablet, 1 TAB PO DAILY for for surgery, #30 TAB 1 Refill 08/22/18 [place] Carbonate (LITHIUM CARBONATE) 300 Mg Tablet, 1 TAB PO BID for BIPOLAR, #60 TAB 1 Refill 08/08/18 Lisinopril (LISINOPRIL) 2.5 Mg Tablet, 5 MG PO DAILY for FOR HYPERTENSION, #30 TAB 0 Refills 05/26/17 Tizanidine Hcl (ZANAFLEX) 4 Mg Capsule, 1 CAP PO TID PRN for MUSCLE SPASTICITY, #90 CAP 08/25/15 Sitagliptin Phos/Metformin Hcl (JANUMET 50-1,000 MG TABLET) 1 Each Tablet, 1 TAB PO BID for diabetes 01/17/15 Levothyroxine Sodium (SYNTHROID) 100 Mcg Tablet, 100 MCG PO DAILYAC for THYROID 01/17/15 Doxepin Hcl (DOXEPIN HCL) 50 Mg Capsule, 300 MG PO HS for sleep/anxiety 01/17/15 Clonazepam (KLONOPIN) 0.5 Mg Tablet, 1 MG PO PRN DAILY PRN for ANXIETY / AGITATION 03/15/13 THEE AVILA MD Sep 22, 2018 15:45
--- NOTE | 2018-09-22 16:03 | RAD ---
Exam: Fluoroscopic and ultrasound guided right percutaneous inserted central venous catheter placement 09/22/2018 3:59 PM .Indication: intermediate antibiotics Technique: Informed oral and written consent were obtained. The right upper extremity was prepped and draped using sterile barrier technique. All elements of maximal sterile barrier technique including the use of a cap, mask, sterile gown, sterile gloves, large sterile sheet, appropriate hand hygiene, and 2% chlorhexidine for cutaneous antisepsis (or acceptable alternative antiseptic per current guidelines) were followed for this procedure.. Real-time ultrasound demonstrated a patent right basilic vein. The right upper extremity was prepped and draped in usual sterile fashion. 1% lidocaine used for local anesthesia. Using real-time ultrasound guidance the access needle percutaneously punctured the selected vein. Reference ultrasound images were saved to the medical record. A guidewire was advanced through the needle to the cavoatrial junction, and a peel-away sheath placed. The catheter was cut to length and inserted through the peel-away sheath such that its tip is at the cavoatrial junction. The wire and sheath were removed, and the catheter secured in place, and a sterile dressing was applied. Catheter was found to flush and aspirate normally. No immediate complications are identified. FLUORO TIME: 0.3 DOSE AREA PRODUCT: 1 Gycm2. Impression: Ultrasound and fluoroscopically guided placement of a right upper extremity PICC line.
[2018-09-22] MEDS ORDERED: VANCOMYCIN 1.5 GM in IV NORMAL SALINE 500ML BAG 500 ML IV SCH (17:00)
== END 2018-09-22 17:50 | disposition home or self-care (01) | DRG 486 ==
LOC: OPSVCIP 09:03 → 4 NORTH 18:00
PROVIDERS: ADMIT Orthopaedic Surgery; ATTEND Orthopaedic Surgery
PROC: 0SUW09Z Supplement Left Knee Joint, Tibial Surface with Liner, Open Approach (ICD-10-PCS; 2018-09-19)
PROC: 0SPD09Z Removal of Liner from Left Knee Joint, Open Approach (ICD-10-PCS; principal; 2018-09-19 11:00)
PROC: 02HV33Z Insertion of Infusion Device into Superior Vena Cava, Percutaneous Approach (ICD-10-PCS; 2018-09-22)
PROC: B5181ZA Fluoroscopy of Superior Vena Cava using Low Osmolar Contrast, Guidance (ICD-10-PCS; 2018-09-22)
PROC: B548ZZA Ultrasonography of Superior Vena Cava, Guidance (ICD-10-PCS; 2018-09-22)
DX: T84.54XA Infection and inflammatory reaction due to internal left knee prosthesis, initial encounter (principal); Z68.41 Body mass index [BMI] 40.0-44.9, adult; E03.9 Hypothyroidism, unspecified; E11.9 Type 2 diabetes mellitus without complications; E66.9 Obesity, unspecified; F17.200 Nicotine dependence, unspecified, uncomplicated; F31.9 Bipolar disorder, unspecified; G47.33 Obstructive sleep apnea (adult) (pediatric); I10 Essential (primary) hypertension; M19.90 Unspecified osteoarthritis, unspecified site; Y83.1 Surgical operation with implant of artificial internal device as the cause of abnormal reaction of the patient, or of later complication, without mention of misadventure at the time of the procedure; Z96.653 Presence of artificial knee joint, bilateral
CPT/HCPCS: 36415; 36569; 76937; 77001; 80053; 80202; 82962; 85014; 85018; 85025; 85610; 87071; 87075; 87102; 87116; 87641; A7015; C1713; C1751; C1776; C1892; J0360; J0780; J0878; J1100; J1170; J1335; J1815; J2001; J2250; J2270; J2405; J2543; J2704; J2710; J3010; J3370; J3490; J7030; J7040; J7050; J7120; Q0162; 97110; 97116; 97535; A4461; C1769

== ENCOUNTER → 2018-10-05 | Outpatient (CLI) | payer BC, MEDICARE ==
[2018-09-22 15:00] VITALS: BP 171/101
[~2018-10-05] MED LIST changes: -IV RINGERS,LACTATED 1000ML 1,000 ML IV SCH; -MORPHINE SULFATE 2 MG/ML VIAL. IV PRN; -ONDANSETRON PF 4 MG/2 ML VIAL. IV PRN; -fentaNYL PF VIAL 100 MCG/2 ML VIAL IV PRN
--- NOTE | 2018-10-05 16:09 | PAIN ---
DATE OF SERVICE: 10/05/2018 DIAGNOSES: Lumbar degenerative disk disease, lumbar spondylosis and spinal stenosis. HISTORY OF PRESENT ILLNESS: The patient is a 48-year-old male who returns for followup status post medication management with oxycodone and Zanaflex. The patient reports he is doing fairly well, just had a knee revision last month on his left knee, still with some pain with that, but has been doing rehabilitation with it very well, on physical therapy. The patient reports good results. He still has a PICC line in his right arm for antibiotics, but otherwise doing fairly well. The patient reports his pain is fairly well controlled, however, with the medication oxycodone without significant side effects. The patient has been on very stable regimen with this. He has gotten over the pain from his surgery for the most part. The patient reports his pain is still aching and tingling, neck and shoulders, upper back, mid back, low back, bilateral lower extremities, again the left knee joint. The patient reports it is sharp and shooting, tingling at times, radiating at times as well, better with sitting or lying down, does not awaken him from sleep at night. The patient rates his pain over the past week as a 10 on a scale of 10 at its worst, 7 on average, 5 at its least and is a 7 today. The patient reports no new motor or sensory deficits, no new side effects from medication. PHYSICAL EXAMINATION: VITAL SIGNS: The patient's blood pressure is 129/80, pulse 84, respirations 18, temperature is 98.1 degrees Fahrenheit. Height is 5 feet 7 inches, weighs 259 pounds. GENERAL: The patient is awake, alert, oriented, appropriate, very pleasant demeanor. HEENT: Head shows normocephalic, atraumatic. Extraocular movements are intact and symmetrical. Oral cavity, mucous membranes are moist and pink. Dentition is intact. NECK: Shows anterior throat supple. CHEST: Shows normal on inspection. Breath sounds are clear bilaterally. HEART: Shows S1, S2 clear. ABDOMEN: Obese, soft, nontender, nondistended. No palpable organomegaly is noted. No rebound or guarding demonstrated. BACK: Shows spine grossly in the midline. Normal appearing thoracic kyphosis and minor flattening of lumbar lordotic curvature. Lumbar paraspinous muscle shows symmetrical, but with palpation shows some moderate tenderness throughout the upper, middle and lower distribution of paraspinous muscles diffusely without radiation. The patient's lower extremitas show deep tendon reflexes at 1+ in the patellar tendons. The patient has well-healing surgical scar over the left knee with approximately 1+ edema on the left ankle, but not the right. Motor exam is strong with 5/5 dorsiflexion and extension. Options were discussed with the patient. The patient's old chart was reviewed as his current medication regimen updated. Current review of systems updated today as well. We will refill the patient's oxycodone and Zanaflex for 2-month prescription. The patient has had appropriate K-TRACS reporting as well as appropriate urinalysis to date and we have made this a 2-month refill prescription. The patient was given instruction as well as side effects to be aware of each of the medications and will follow up in approximately 2 months or sooner as necessary. KOFI BYRD MD DR: AIDEN/ritesh JOB#: [id number] / [id number]
== END | disposition home or self-care (01) ==
LOC: PNCL 11:27
PROVIDERS: ATTEND Anesthesiology
DX: M51.36 Other intervertebral disc degeneration, lumbar region (principal); M47.816 Spondylosis without myelopathy or radiculopathy, lumbar region; M48.061 Spinal stenosis, lumbar region without neurogenic claudication; M40.294 Other kyphosis, thoracic region; E66.9 Obesity, unspecified; Z79.2 Long term (current) use of antibiotics
CPT/HCPCS: G0463

== ENCOUNTER → 2018-11-24 | Outpatient (CLI) | payer BC, MEDICARE ==
--- NOTE | 2018-11-24 13:01 | PAIN ---
DATE OF SERVICE: 11/24/2018 PROGRESS NOTE FOR PAIN CLINIC PREOPERATIVE DIAGNOSES: Lumbar degenerative disk disease, lumbar spinal stenosis, and lumbar spondylosis. HISTORY OF PRESENT ILLNESS: The patient is a 48-year-old male who returns for followup status post medication management with oxycodone and Zanaflex. The patient reports he is doing very well with this and has been on a very stable regimen. He reports about 75% improvement in pain or more at times. The patient has had some increased pain in his left knee, however, which has been healing after a total knee replacement and he had some residual infection leftover. He was on a PICC line initially, this has been discontinued now. He is still taking the oral antibiotics. He still reports a fair amount of warmth and swelling sensation in the left knee. The patient reports no new motor or sensory deficits, no new bowel or bladder incontinence, and no side effects with medication. The patient reports he has been losing some weight, still he is down about 3-4 pounds from his last visit but since about the past 4 months, he has been about 20 pounds down. The patient reports his pain is a 10 on a scale of 10 at its worst and primarily with his left knee, 7 on average, 7 at its least, and is a 7 today. The patient reports it is sharp and aching in the low back as it was previously, but he has been able to increase his activity with the help of the medication. Oxycodone significantly decreasing the pain again without any significant side effects. The patient reports he is sleeping better at night and again, his left knee has the worst pain. PHYSICAL EXAMINATION: VITAL SIGNS: The patient's blood pressure is 147/103, pulse 81, respirations are 16, temperature is 97.6 degrees Fahrenheit, height is 5 feet 7 inches, and weight is 257 pounds. GENERAL: The patient is awake, alert, oriented, appropriate, and very pleasant demeanor. HEENT: Exam shows normocephalic and atraumatic. Extraocular movements are intact and symmetrical. Oral cavity shows mucous membranes are moist and pink. NECK: Shows anterior throat supple without palpable lymphadenopathy noted. Swallow reflex symmetrical. CHEST: Shows normal on inspection. Breath sounds are clear bilaterally. HEART: Shows S1 and S2 clear. ABDOMEN: Obese but soft, nontender, and nondistended. BACK: Shows spine grossly in the midline, slight exaggerated thoracic kyphosis, and some minor flattening of lumbar lordotic curvature. Lumbar paraspinous muscle shows symmetrical on inspection with some diffuse tenderness throughout the upper, middle, and lower distribution of paraspinous muscles, but is roughly symmetrical without evidence of atrophy or hypertrophy. The patient has good rotational motion of lumbar spine, both laterally as well as extension and flexion without significant increase in pain. EXTREMITIES: Lower extremities show deep tendon reflexes 1+ in the patellar and tendo-calcaneus tendons. Well-healing surgical scars noted over the left knee and well-healed surgical scars over the right knee. There is some mild swelling both medially and laterally in the knee compartment itself with examination, which is moderately tender with palpation, even with light palpation on both medial and lateral aspect of the left knee. No discharge is noted, no significant erythema, and no temperature difference to touch between the left and the right lower extremities or knees as well. Motor exam is strong with dorsiflexion and extension, rated at 5/5 and equal. Peripheral pulses are 1+ posterior tibial. No peripheral edema is noted bilaterally. Options were discussed with the patient. The patient's old chart was reviewed. His current medication regimen updated. Current review of systems updated today as well. We will refill the patient's medication for 2-month period. The patient had appropriate K-TRACS reporting as well as appropriate urinalysis to date. We will refill the patient's medication for 2-month period. Also, we renewed the patient's narcotic agreement today. The patient is given a copy of this as well and also urinalysis today as routine screening. The patient will return to the clinic in approximately 2 months or sooner as necessary. He was given instructions as well as side effects to be aware of with the medications. KOFI BYRD MD DR: AIDEN/ritesh JOB#: [id number] / [id number]
== END | disposition home or self-care (01) ==
LOC: PNCL 10:43
PROVIDERS: ATTEND Anesthesiology
DX: M51.16 Intervertebral disc disorders with radiculopathy, lumbar region (principal); M47.26 Other spondylosis with radiculopathy, lumbar region; M40.294 Other kyphosis, thoracic region; M40.46 Postural lordosis, lumbar region
CPT/HCPCS: G0463

== ENCOUNTER → 2019-01-19 | Outpatient (CLI) | payer BC, MEDICARE ==
--- NOTE | 2019-01-19 11:22 | PAIN ---
DATE OF SERVICE: 01/19/2019 PROGRESS NOTE FOR PAIN CLINIC DIAGNOSES: Lumbar degenerative disk disease, lumbar spinal stenosis and lumbar spondylosis. HISTORY OF PRESENT ILLNESS: The patient is a 48-year-old male who returns for followup status post medication management with both oxycodone and Zanaflex. The patient reports he has been doing very well with this, he has been on a very stable regimen. He has actually lost about 10 pounds since the last visit and he is trying to lose weight and is feeling better with lower weights. The patient reports he still has some significant pain in low back and into the lower extremities, mostly on the left side but present bilaterally, also some pain in the knees with recent joint effusion on the left side and after knee surgery. The patient reports no new motor or sensory deficits, no new bowel or bladder incontinence or other complaints. The patient reports his pain is in the last week at its worst was 9 on a scale of 10, 7 on average, 6 at its least and is a 6 today. The patient reports it is sharp, radiating, constant, severe at times, worse with walking, standing, changing positions, better with sitting or lying down, does not awaken him from sleep at night. The patient has been functioning well without any specific side effects and reports his reduction in pain with medications alone is about 70%. PHYSICAL EXAMINATION: VITAL SIGNS: The patient's blood pressure 154/100, pulse 81, respirations 16, temperature 98.6 degrees Fahrenheit, height is 5 feet 7 inches, weight is 249 pounds. GENERAL: The patient is awake, alert, oriented, appropriate, very pleasant demeanor. HEENT: Shows normocephalic, atraumatic. Extraocular movements are intact and symmetrical. Oral cavity: Mucous membranes moist and pink. Dentition is intact. NECK: Shows anterior throat supple without palpable lymphadenopathy noted. Swallow reflex symmetrical. CHEST: Shows normal on inspection. Breath sounds clear bilaterally. HEART: Shows S1, S2 clear. No murmurs auscultated. ABDOMEN: Soft, obese, nontender, nondistended. BACK: Shows spine grossly in the midline. Slight exaggeration of thoracic kyphosis and minor flattening of lumbar lordotic curvature. Lumbar paraspinous muscle shows symmetrical on inspection and palpation shows some moderate tenderness diffusely throughout the upper, middle and lower distribution of paraspinous muscles without radiation. The patient has good rotational motion of lumbar spine, both laterally as well as extension and flexion without difficulty. EXTREMITIES: Lower extremities show deep tendon reflexes 1+ in the patellar and tendo calcaneus tendons are equal. Motor exam is strong with approximately 4 on a scale of 5, but symmetrical and equal with dorsiflexion, extension, quadriceps and hamstring flexion. Peripheral pulses are 1+ posterior tibia. No peripheral edema is noted. Options were discussed with the patient. The patient's old chart was reviewed as his current medication regimen updated. Current review of systems updated today as well. We will refill the patient's oxycodone as well as Zanaflex. The patient has had appropriate K-TRACS reporting as well as appropriate urinalysis to date. We will refill this for 2-month period. The patient was given instruction as well as side effects to be aware of each of the medications. We will follow up in approximately 2 months or sooner as necessary. KOFI BYRD MD DR: AIDEN/ritesh JOB#: [id number] / [id number]
== END | disposition home or self-care (01) ==
LOC: PNCL 09:46
PROVIDERS: ATTEND Anesthesiology
DX: M51.36 Other intervertebral disc degeneration, lumbar region (principal); M48.061 Spinal stenosis, lumbar region without neurogenic claudication; M47.816 Spondylosis without myelopathy or radiculopathy, lumbar region; E66.9 Obesity, unspecified
CPT/HCPCS: G0463

== ENCOUNTER → 2019-04-25 | Outpatient (CLI) | payer BC, MEDICARE ==
[2019-04-06 01:25] VITALS: BP 175/92
[~2019-04-25] MED LIST changes: +CLONAZEPAM1 MG PO; +DOXE150C2 PO; +LEVO100T5 PO; +LIDO700A21 TP; +LISI-338 PO; +LITH300C PO; +TIZA4TAB2 PO
== END ==
LOC: OPS 09:42 → MERGE 09:42
PROVIDERS: ATTEND Internal Medicine Infectious Disease
DX: Z45.2 Encounter for adjustment and management of vascular access device (principal)
CPT/HCPCS: 36589

== ENCOUNTER → 2019-04-25 | Outpatient (CLI) | payer BC, MEDICARE ==
[2019-04-06 01:25] VITALS: BP 175/92
--- NOTE | 2019-04-25 10:55 | NUR ---
5F POWERLINE MANUALLY REMOVED BEDSIDE. VENOUS MANUAL PRESSURE FOR 5 MINUTES. HEMOSTASIS ACHIEVED AND STERILE DRESSING APPLIED. RN TO GIVE PATIENT POST CARE INSTRUCTIONS.
--- NOTE | 2019-04-25 11:06 | NUR ---
Tunneled powerline pulled. Post care instructions reviewed with patient and mother. Pt ambulated to exit.
== END ==
LOC: MERGE 10:25 → INTRAD 10:25
PROVIDERS: ATTEND Internal Medicine Infectious Disease
DX: Z45.2 Encounter for adjustment and management of vascular access device (principal)
CPT/HCPCS: 36589

== ENCOUNTER → 2019-05-25 | Outpatient (CLI) | payer BC, MEDICARE ==
[2019-05-25 10:20] LABS: BASO % 1 % (0-3); EOS # 0.2 x10^3/uL (0.0-0.7); EOS % 3 % (0-3); HEMOGLOBIN 11.8 g/dL (13.0-17.5); LYMPH # 1.2 x10^3/uL (1.0-4.8); LYMPH % 21 % (24-48); MEAN CORPUSCULAR HEMOGLOBIN 24 pg (25-35); MEAN CORPUSCULAR HGB CONC 32 g/dL (31-37); MEAN CORPUSCULAR VOLUME 75 fL (79-100); MONO # 0.3 x10^3/uL (0.0-1.1); MONO % 6 % (0-9); NEUT % 70 % (31-73); PLATELET COUNT 313 x10^3/uL (140-400); RED BLOOD COUNT 4.91 x10^6/uL (4.30-5.70); RED CELL DISTRIBUTION WIDTH 17.4 % (11.5-14.5); WHITE BLOOD COUNT 5.8 x10^3/uL (4.0-11.0)
[2019-05-25 10:25] LABS: CALCIUM 9.5 mg/dL (8.5-10.1); GFR 79.1; POTASSIUM 3.6 mmol/L (3.5-5.1)
[2019-05-25 10:35] LABS: PROTHROMBIN TIME PATIENT 14.1 SEC (11.7-14.0)
--- NOTE | 2019-05-25 10:42 | EKG ---
[facility] [address] [place] [address] Test Date: 2019-05-25 Test Time: 10:17:08 Pat Name: ANASTACIA RESENDEZ Department: Room: Gender: Cumulative Effects Analyst: Sofie REESE : 1970 Requested By: THEE GOMEZ Order Number: [id number] Reading MD: Measurements Intervals [place] Rate: 83 P: 31 W[place]: 142 QRS: -34 QRSD: 88 T: 23 QT: 360 QTc: 424 Interpretive Statements SINUS RHYTHM ABNORMAL LEFT AXIS DEVIATION R-S TRANSITION ZONE IN V LEADS DISPLACED TO THE LEFT LEFT ANTERIOR FASCICULAR BLOCK QRS(T) CONTOUR ABNORMALITY CONSIDER ANTEROSEPTAL MYOCARDIAL DAMAGE ABNORMAL ECG RI6.01 No previous ECG available for comparison
--- NOTE | 2019-05-25 14:26 | RAD ---
CHEST PA LATERAL History: Preop right knee surgery Comparison: February 24, 2018 Findings: 2 views of the chest are submitted. There is no infiltrate, pneumothorax, or effusion. Pericardial cardiac silhouette is within normal limits in size. There is mild thoracic spondylosis. Impression: 1. There is no radiographic evidence of acute cardiopulmonary disease. Electronically signed by: Scottie Wright MD (05/25/2019 2:24 PM) [id number]
[2019-05-26 03:08] LABS: HEMOGLOBIN A1C 6.2 % (4.8-5.6)
--- NOTE | 2019-05-28 15:25 | NUR ---
Called patient and explained his MRSA positive results. Confirmed he understands the treatment for MRSA. He will also schedule an appointment to see his PCP regarding his vitamin D level.
== END | disposition home or self-care (01) ==
LOC: SURGPAT 09:05
PROVIDERS: ATTEND Orthopaedic Surgery
DX: Z01.818 Encounter for other preprocedural examination (principal); T84.54XA Infection and inflammatory reaction due to internal left knee prosthesis, initial encounter; I44.4 Left anterior fascicular block
CPT/HCPCS: 36415; 71046; 80048; 82040; 82306; 83036; 85025; 85610; 85651; 85730; 86140; 87641; 93005

== ENCOUNTER → 2019-06-04 | Outpatient (CLI) | payer BC, MEDICARE ==
[2019-04-06 01:25] VITALS: BP 175/92
--- NOTE | 2019-06-04 20:39 | PAIN ---
DATE OF SERVICE: 06/04/2019 PROGRESS NOTE FOR PAIN CLINIC DIAGNOSES: Lumbar degenerative disk disease, lumbar spinal stenosis and lumbar spondylosis. HISTORY OF PRESENT ILLNESS: The patient is a 57-year-old male who returns for followup status post medication management as noted. The patient reports good decrease in pain about 70%-75% improvement with the medications, still using Lidoderm patches on his back. The patient reports he is going on for another knee revision tomorrow on his left knee. We discussed covering the pain medication for the postoperative pain as well. The patient reports otherwise doing well. No new side effects, no constipation. Rates his pain as a 10 on a scale of 10 at its worst in the past week, but mainly from his left knee, 9 on average, 5 at its least and is a 5 today. The patient reports again no side effects with the medication, but looking forward to getting his knee feeling better, so he can be more ambulatory and active. The patient has lost some weight, is down to 243 pounds today and is trying to do this in hopes of rehabing his knee better as well. The patient reports no new motor or sensory deficits, describes the pain as aching and dull, sharp and shooting in the left knee, also dull and aching in the low back and some in the mid back, which is tight, burning as well. The patient's old chart was reviewed as his current medication regimen updated. PHYSICAL EXAMINATION: VITAL SIGNS: The patient's blood pressure 140/88, pulse 69, respirations 18, temperature 98.2 degrees Fahrenheit, height is 5 feet 7 inches, weight is 243 pounds. GENERAL: The patient is awake, alert, oriented, appropriate, very pleasant demeanor. HEENT: Head shows normocephalic, atraumatic. Extraocular movements are intact and symmetrical. Oral cavity shows mucous membranes moist and pink. Dentition is intact. NECK: Shows anterior throat supple without palpable lymphadenopathy noted. Swallow reflex symmetrical. CHEST: Shows normal with inspection. Breath sounds are clear to auscultation bilaterally. HEART: Shows S1, S2 clear. ABDOMEN: Obese, soft, nontender, nondistended. No palpable organomegaly is noted. No rebound or guarding demonstrated. BACK: The patient's back shows spine grossly in midline, some moderate increase in thoracic kyphosis, but some flattening of lumbar lordotic curvature as well. The patient shows good rotational motion of lumbar spine, both laterally as well as extension and flexion. With palpation, there is some moderate tenderness diffusely, but only in the low lumbar distribution without atrophy, hypertrophy, without asymmetry or trigger points. EXTREMITIES: The patient's lower extremities show deep tendon reflexes 1+ in the patellar and tendo calcaneus tendons. Some significant tenderness with palpation over the left knee; however, and with passive and active motion the left knee joint shows very tender, and also has a swollen appearance compared to the right knee without specific edema. Peripheral pulses are 1+ posterior tibia. No peripheral edema is noted. EXTREMITIES: Lower extremity motor is approximately 4 on a scale of 5 on the left and 5/5 on the right. PLAN: Options were discussed with the patient. The patient's old chart was reviewed as her current medication regimen updated. Current review of systems updated today as well. We will refill the patient's medication with addition of oxycodone 10 mg for postoperative pain, 30 tablets with instructions and side effects to be aware of with all the medications. The patient had appropriate K-TRACS reporting as well as appropriate urinalysis to date. We will refill this for 2-month period. The patient will return at that time or sooner as necessary. KOFI BYRD MD DR: AIDEN/ritesh JOB#: [id number] / [id number]
== END ==
LOC: MERGE 13:20 → PNCL 14:03
PROVIDERS: ATTEND Anesthesiology
DX: Z01.818 Encounter for other preprocedural examination (principal); M51.36 Other intervertebral disc degeneration, lumbar region; M47.816 Spondylosis without myelopathy or radiculopathy, lumbar region; M48.061 Spinal stenosis, lumbar region without neurogenic claudication
CPT/HCPCS: G0463

== ENCOUNTER 2019-06-05 07:59 | Inpatient (IN) | payer BC, MEDICARE ==
[~2019-06-05] VITALS: Ht 170.2 cm; Wt 123.7 kg
[2019-06-05] VITALS (13 sets, daily range): BP systolic 135–149; BP diastolic 74–100
[~2019-06-05 07:59] MED LIST changes: +ACETAMINOPHEN 500 MG TABLET PO PRN; +GABAPENTIN 300 MG CAPSULE. PO PRN; +HYDROmorphone 2 MG/ML VIAL IV PRN; +IV RINGERS,LACTATED 1000ML 1,000 ML IV SCH; +MELOXICAM 7.5 MG TABLET PO PRN; +MORPHINE SULFATE 2 MG/ML VIAL. IV PRN; +MORPHINE SULFATE 5 MG, KETOROLAC 30MG VIAL 30 MG, ROPIVacaine 0.5% PF 60 ML, EPINEPHrin... INT ART ONE; +ONDANSETRON PF 4 MG/2 ML VIAL. IV PRN; +PROCHLORPERAZINE 10 MG/2 ML VIAL. IV PRN; +TRANEXAMIC ACID 1,000 MG in IV NS 50ML -- 1ST BAG INJ ONE; +VANCOMYCIN 1 GM in IV NORMAL SALINE 250ML 250 ML IV ONE; +VANCOMYCIN 1GM IVPB FOR OMNI 250 ML IV PRN; +fentaNYL PF VIAL 100 MCG/2 ML VIAL IV PRN
[2019-06-05] MEDS ORDERED: TRANEXAMIC ACID 1,000 MG in IV NS 50ML -- 2ND BAG INJ ONE (08:00)
[2019-06-05] MEDS ORDERED: fentaNYL PF VIAL 100 MCG/2 ML VIAL ONE ×3 (08:48→18:27)
[2019-06-05] MEDS ORDERED: LIDOCAINE 2% PF 5 ML VIAL. ONE (08:48)
[2019-06-05] MEDS ORDERED: PROPOFOL 20 ML IV ONE ×2 (08:48→11:43)
[2019-06-05] MEDS ORDERED: ONDANSETRON PF 4 MG/2 ML VIAL. ONE (08:48)
[2019-06-05] MEDS ORDERED: DEXAMETHASONE SOD PHOS 4 MG/ML VIAL ONE (08:48)
[2019-06-05] MEDS: INSULIN LISPRO 100 UNIT/ML 3ML VIAL for OP,RR ONLY. SQ PRN ×2 (08:55→18:48)
[2019-06-05] MEDS ORDERED: INSULIN LISPRO 100 UNIT/ML 3ML VIAL for OP,RR ONLY. SQ ONE (09:00)
[2019-06-05 09:18] LABS: PROTHROMBIN TIME PATIENT 12.9 SEC (11.7-14.0)
[2019-06-05] MEDS ORDERED: KETAMINE HCL IN NACL, ISO-OSM 50 MG/5 ML SYRINGE ONE (11:30)
[2019-06-05] MEDS ORDERED: KETOROLAC 30 MG/ML VIAL. ONE (11:41)
[2019-06-05] MEDS ORDERED: hydrALAZINE 20 MG/ML VIAL. ONE (11:42)
[2019-06-05] MEDS ORDERED: SEVOFLURANE > 120 MINUTES. IH ONE (11:47)
[2019-06-05] MEDS ORDERED: VANCOMYCIN 1 GM VIAL. ONE ×3 (14:03)
[2019-06-05] MEDS ORDERED: ALBUMIN HUMAN 5% 500 ML IV ONE (14:12)
[2019-06-05] MEDS ORDERED: ePHEDrine PF IN SALINE 50 MG/10 ML SYRINGE. IV ONE (14:47)
[2019-06-05] MEDS ORDERED: WARFARIN 7.5 MG TABLET. PO ONE (16:00)
[2019-06-05] MEDS ORDERED: VANCOMYCIN 1 GM in IV NORMAL SALINE 250ML 250 ML IV ONE (17:30)
[2019-06-05] MEDS ORDERED: PROCHLORPERAZINE 10 MG/2 ML VIAL. ONE (18:28)
[2019-06-05] MEDS ORDERED: MORPHINE SULFATE 2 MG/ML VIAL. ONE (18:28)
[2019-06-05 19:02] LABS: BASO % 0 % (0-3); EOS % 0 % (0-3); HEMATOCRIT 29.9 % (39.0-53.0); HEMOGLOBIN 9.7 g/dL (13.0-17.5); LYMPH # 0.7 x10^3/uL (1.0-4.8); LYMPH % 10 % (24-48); MEAN CORPUSCULAR HEMOGLOBIN 24 pg (25-35); MEAN CORPUSCULAR HGB CONC 33 g/dL (31-37); MEAN CORPUSCULAR VOLUME 75 fL (79-100); MONO # 0.2 x10^3/uL (0.0-1.1); MONO % 2 % (0-9); NEUT # 6.4 x10^3/uL (1.8-7.7); NEUT % 87 % (31-73); PLATELET COUNT 264 x10^3/uL (140-400); RED BLOOD COUNT 3.99 x10^6/uL (4.30-5.70); RED CELL DISTRIBUTION WIDTH 16.7 % (11.5-14.5); WHITE BLOOD COUNT 7.3 x10^3/uL (4.0-11.0)
[2019-06-05 19:36] LABS: % LYMPHS 10 % (24-48); % SEGS 90 % (35-66); HYPOCHROMIA SLIGHT; PLT ESTIMATE ADEQUATE (ADEQUATE)
[2019-06-05] MEDS: IV NORMAL SALINE 1000ML BAG 1,000 ML IV SCH (19:39)
[2019-06-05] MEDS ORDERED: PROCHLORPERAZINE 5 MG TABLET. PO PRN (19:45)
[2019-06-05] MEDS ORDERED: diphenhydrAMINE 50 MG/ML VIAL IV PRN (19:45)
[2019-06-05] MEDS ORDERED: DEXTROSE 50% 25 GM / 50ML DISP.SYRIN. IV PRN (19:45)
[2019-06-05] MEDS ORDERED: oxyCODONE IR 5 MG TABLET PO PRN (19:45)
[2019-06-05] MEDS ORDERED: 0.9 % SODIUM CHLORIDE 10 ML DISP.SYRIN. IV PRN (19:45)
[2019-06-05] MEDS ORDERED: CALCIUM CARBONATE 500 MG TAB.CHEW PO PRN (19:45)
[2019-06-05] MEDS ORDERED: fentaNYL PF VIAL 100 MCG/2 ML VIAL IV PRN ×2 (19:45)
[2019-06-05] MEDS ORDERED: ZOLPIDEM 5 MG TABLET. PO PRN (19:45)
[2019-06-05] MEDS ORDERED: tiZANidine 4 MG TABLET. PO PRN (19:45)
--- NOTE | 2019-06-05 19:50 | NUR ---
pt. arrived on floor at 1950 by bed from PACU. Pt. is A&Ox4 and on room air. Pt. states he is not having any pain at the moment. Admission assessment done at this time. is at bedside. Call light within reach and bed in lowest position. Will continue to monitor.
--- NOTE | 2019-06-05 20:54 | PDOC4 ---
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 The left lower extremity was prepped and draped in standard sterile fashion with a thigh tourniquet. After timeout was performed patient procedure identified and verified the left lower extremity was exsanguinated by Esmarch bandage tourniquet inflated to 350 mmHg and a midline incision was made with a medial parapatellar approach and extensive scar tissue was excised around the patella. There was no evidence of any cloudiness of the joint fluid and initially on broaching the joint a swab of the joint fluid was sent for intraoperative evaluation and culture, and noted to have no organisms seen under Gram stain rare white blood cells plentiful red blood cells. The antibiotic spacers were removed piecemeal by splitting them atraumatically as possible with an osteotome and he was noted to have significant erosion of the lateral femoral condyle as he appeared to be actually moving between the distal femur and the femoral component of the antibiotic spacer. He also was noted to have a crack in the lateral epicondyles initially nondisplaced. Tibial component and tibial cement were removed by drilling and backslapping the cement and the interface of the bone tissue was thoroughly removed and sent for culture of deep tissue separately labeled for the tibia and the femur. After thorough de bridement tibia was sized at a size 3 and tibia was reamed to 12 mm to approximately 160 mm depth providing excellent stability and the size 3 tibial component was well aligned and clean up cuts were made superiorly using the tibial cutting guide with good contact around the tibial bone. Furthermore with the tibial component aligned a sagittal saw was used to prepare for the tibial alignment splines rather than impacting the guide potentially causing a fracture. The distal femur was then prepared with an intramedullary guide over the top of a 15 mm x 120 mm stem that was optimally positioned using the [employer] offset blade grader operator. Rotation was established with the epicondylar axis as reference and due to the bone loss at the distal femur and a 5 mm wedge was required distally on the lateral component 10 mm wedge was required at the posterior condyle laterally and a 5 mm wedge medial condyle attached to the size 5 Legion femoral trial. Ligament balancing carried out with a 15 mm spacer noting excellent ligament balance side to side in in flexion extension following the 4 mm lateral translation of the femoral component with the offset blade grader operator placement trial. The patella was prepared by excising surrounding very thick scar tissue and synovium. A resurfacing 29 mm patella was prepared drilled and trial fit with good tracking. The trial components were all removed thorough irrigation carried out normal saline solution and bleeding points were controlled by electrocautery. The following total knee components were cemented with polymethylmethacrylate cement containing 1 g per packet of cement vancomycin consisting of a size 3 Legion revision tibial baseplate with a straight 12 x 160 mm press-fit stem, and a Legion Oxinium constrained femoral component with a 5 mm distal bike 10 mm posterior lateral femoral wedge and a 5 mm posterior medial femoral wedge with an offset 4 mm blade grader operator with a straight 12 mm x 160 mm Legion press-fit stem. When attempting to trial the articular insert it was noted that the tibial component appeared to be significantly malrotated and in order to remove the tibial component and reposition the femoral component had to be removed and cement retained was removed from the femoral component and it was thoroughly irrigated in Bactisure solution and then thoroughly rinsed. The tibial tray was removed with a minimal amount of bony compromise and adherent cement removed component with a osteotome as replacement components were not available. The tibial stem remained thoroughly fixed and could not be removed without bony destruction yet the Matthew taper was dislodged to allow repositioning of the tibia and re-cementing. It was found that an area of very hard bone impacted the tibial alignment spline medially and resulted in the malrotation. This was corrected by referencing a drop renetta and verifying the tibial guide and alignment using the sagittal saw again to remove the offending bone and make room for the alignment splines in acceptable tibial rotation. After thorough irrigation of the knee with back to assure and 2 L of normal saline solution the tibia was re-cemented and impacted into place to engage the Matthew taper of the tibial stem. The distal femur was then separately cemented with vancomycin infused polymethylmethacrylate cement while holding the lateral epicondyle fracture in place with bone holding forceps. The patella was likewise cemented medially with a 29 mm resurfacing patella with polymethylmethacrylate cement and a buttress plate was placed with a 6 hole one third semitubular plate which was formed to stabilize the lateral condyle fracture with 23.5 screws placed along the shaft to avoid contact with the [place] stem and a locking hole was placed distally to further stabilize the fracture fragment in addition to the buttressing. Excellent and rotation and alignment were noted with a 15 mm Esther II constrained articular insert trial which was then switched out for a 15 mm Esther II constrained articular insert which was locked in place after thorough irrigation with normal saline solution and pulse lavage. Excellent stability throughout full range of motion and rotation equal to the contralateral extremity were noted meticulous closure was accomplished of the retinaculum after the joint capsule and surrounding subcutaneous tissues were infused with the pain catheter mixture. Interrupted Ethibond suture was used backed up with #1 PDS strata fix in a running fashion for a watertight closure. Subcutaneous closure with buried Vicryl suture with #1 PDS strata fix suture in a running fashion. Subcutaneous closure with buried Vicryl suture and meticulous skin closure accomplished with nylon suture 2-0 in a vertical mattress fashion. I elected to place a wound VAC with an Acticoat skin layer. The lateral incision from the operative reduction of fracture was closed at the fascial layer with #1 PDS strata fix suture subcutaneous closure with buried Vicryl and skin closure with yasmeen sterile dressings were applied. Toes were warm and pink following deflation of the tourniquet intraoperatively at about 1- 1/2 hours tourniquet time and patient was returned recovery room in stable condition having tolerated procedure well. Brian Marie nurse practitioner was present for the procedure and assisted in the patient positioning prepping draping retraction and wound closure. THEE GOMEZ MD Jun 05, 2019 20:54
[2019-06-05] MEDS ORDERED: NON FORMULARY ITEM (Sitagliptin Phos/Metformin Hcl (Janumet 50-1,000 Mg Tablet) 1 TAB) PO SCH (21:00)
--- NOTE | 2019-06-05 23:24 | RAD ---
Two-view left knee dated 06/05/2019. Comparison made to August 22, 2018. CLINICAL INDICATION: Postop fracture. FINDINGS: AP and lateral views obtained. There is been interval revision total knee arthroplasty. Femoral and tibial components intact. There is a lateral plate at the distal femur. Alignment anatomic. No periprosthetic fracture. There is diffuse soft tissue swelling and soft tissue gas with overlying skin yasmeen. IMPRESSION: Postop revision of total knee arthroplasty. Electronically signed by: Adam Dejesus MD (06/05/2019 11:22 PM) [id number]
[2019-06-06] VITALS (7 sets, daily range): BP systolic 106–145; BP diastolic 52–89
[2019-06-06] MEDS ORDERED: ONDANSETRON PF 4 MG/2 ML VIAL. IV SCH
[2019-06-06] MEDS: MORPHINE SULFATE 4 MG/ML VIAL. IV PRN (01:12)
[2019-06-06] MEDS: DOXEPIN HCL 150 MG PO SCH ×2 (01:22→21:24)
[2019-06-06] MEDS ORDERED: WARFARIN 7.5 MG TABLET. PO ONE (01:30)
[2019-06-06] MEDS: oxyCODONE IR 5 MG TABLET PO PRN ×2 (01:49→13:52)
--- NOTE | 2019-06-06 02:19 | NUR ---
Pharmacy Warfarin Dosing Note S:Pharmacy consulted to assist with anticoagulation therapy started 06/06/19 with target INR: 1.6 - 2.5 O:DIPTIANASTACIA is a 49 year old M with TOTAL LEFT KNEE POST-OP LABS: Last INR: 1.0 Last HGB: 9.7 Last HCT: 29.9 Last PLT: 264 Last dose of given on 06/06/19 at 0130 Previous Regimen: Vitamin K given: Drug Interaction Changes: Ongoing Drug Interactions: A:INR of 1.0 is below desired range. Target range for this patient is: 1.6 - 2.5 P: Warfarin dose: 7.5 mg 06/06/19 0130 Bridge Therapy: N/A Next INR due 06/06/19 0900 Pharmacy anticoagulation service will continue to follow. DAREN WEBBER RPH, 06/06/19 0219 Signed: 06/06/19 at 0221 by DAREN WEBBER RPH PHA
[2019-06-06] MEDS: GABAPENTIN 100 MG CAPSULE. PO SCH ×3 (05:14→21:22)
[2019-06-06] MEDS: traMADol 50 MG TABLET PO SCH ×3 (05:15→17:24)
[2019-06-06 05:29] LABS: HEMATOCRIT 26.8 % (39.0-53.0); HEMOGLOBIN 8.9 g/dL (13.0-17.5)
[2019-06-06 05:36] LABS: PROTHROMBIN TIME PATIENT 14.5 SEC (11.7-14.0)
[2019-06-06] MEDS ORDERED: MAGNESIUM HYDROXIDE 2,400 MG/30 ML ORAL.SUSP. PO PRN (06:00)
[2019-06-06] MEDS: ONDANSETRON ODT 4 MG TAB.RAPDIS. PO SCH ×4 (06:00→17:24)
--- NOTE | 2019-06-06 08:07 | PDOC ---
ORTHO PROGRESS NOTES Subjective Patient states pain not too bad this morning. Asking for breakfast Post-op Day: 1 Procedure Removal of antibiotic spacer, with operative reduction and internal fixation of lateral epicondyle fracture, Insertion of stemmed tibial and femoral components with reimplantation resu rfacing patella component Vitals Vital Signs Date Time Temp Pulse Resp B/P (MAP) Pulse Ox O2 Delivery O2 Flow Rate FiO2 06/06/19 07:04 97.8 69 18 106/52 (70) 100 Room Air 97.8 06/05/19 18:45 8 Labs Laboratory Tests Test 06/05/19 08:25 06/05/19 18:45 06/05/19 18:55 06/05/19 21:04 Prothrombin Time 12.9 SEC (11.7-14.0) Prothromb Time International Ratio 1.0 (0.8-1.1) Activated Partial Thromboplast Time 31 SEC (24-38) Glucose (Fingerstick) 151 mg/dL (70-99) 270 mg/dL (70-99) 248 mg/dL (70-99) White Blood Count 7.3 x10^3/uL (4.0-11.0) Red Blood Count 3.99 x10^6/uL (4.30-5.70) Hemoglobin 9.7 g/dL (13.0-17.5) Hematocrit 29.9 % (39.0-53.0) Mean Corpuscular Volume 75 fL (79-100) Mean Corpuscular Hemoglobin 24 pg (25-35) Mean Corpuscular Hemoglobin Concent 33 g/dL (31-37) Red Cell Distribution Width 16.7 % (11.5-14.5) Platelet Count 264 x10^3/uL (140-400) Neutrophils (%) (Auto) 87 % (31-73) Lymphocytes (%) (Auto) 10 % (24-48) Monocytes (%) (Auto) 2 % (0-9) Eosinophils (%) (Auto) 0 % (0-3) Basophils (%) (Auto) 0 % (0-3) Neutrophils # (Auto) 6.4 x10^3/uL (1.8-7.7) Lymphocytes # (Auto) 0.7 x10^3/uL (1.0-4.8) Monocytes # (Auto) 0.2 x10^3/uL (0.0-1.1) Eosinophils # (Auto) 0.0 x10^3/uL (0.0-0.7) Basophils # (Auto) 0.0 x10^3/uL (0.0-0.2) Segmented Neutrophils % 90 % (35-66) Lymphocytes % 10 % (24-48) Platelet Estimate Adequate (ADEQUATE) Hypochromasia Slight Test 06/06/19 04:40 Hemoglobin 8.9 g/dL (13.0-17.5) Hematocrit 26.8 % (39.0-53.0) Mean Corpuscular Hemoglobin Concent 33 g/dL (31-37) Prothrombin Time 14.5 SEC (11.7-14.0) Prothromb Time International Ratio 1.2 (0.8-1.1) Laboratory Tests Test 06/05/19 08:25 06/05/19 18:45 06/05/19 18:55 06/05/19 21:04 Prothrombin Time 12.9 SEC (11.7-14.0) Prothromb Time International Ratio 1.0 (0.8-1.1) Activated Partial Thromboplast Time 31 SEC (24-38) Glucose (Fingerstick) 151 mg/dL (70-99) 270 mg/dL (70-99) 248 mg/dL (70-99) White Blood Count 7.3 x10^3/uL (4.0-11.0) Red Blood Count 3.99 x10^6/uL (4.30-5.70) Hemoglobin 9.7 g/dL (13.0-17.5) Hematocrit 29.9 % (39.0-53.0) Mean Corpuscular Volume 75 fL (79-100) Mean Corpuscular Hemoglobin 24 pg (25-35) Mean Corpuscular Hemoglobin Concent 33 g/dL (31-37) Red Cell Distribution Width 16.7 % (11.5-14.5) Platelet Count 264 x10^3/uL (140-400) Neutrophils (%) (Auto) 87 % (31-73) Lymphocytes (%) (Auto) 10 % (24-48) Monocytes (%) (Auto) 2 % (0-9) Eosinophils (%) (Auto) 0 % (0-3) Basophils (%) (Auto) 0 % (0-3) Neutrophils # (Auto) 6.4 x10^3/uL (1.8-7.7) Lymphocytes # (Auto) 0.7 x10^3/uL (1.0-4.8) Monocytes # (Auto) 0.2 x10^3/uL (0.0-1.1) Eosinophils # (Auto) 0.0 x10^3/uL (0.0-0.7) Basophils # (Auto) 0.0 x10^3/uL (0.0-0.2) Segmented Neutrophils % 90 % (35-66) Lymphocytes % 10 % (24-48) Platelet Estimate Adequate (ADEQUATE) Hypochromasia Slight Test 06/06/19 04:40 Hemoglobin 8.9 g/dL (13.0-17.5) Hematocrit 26.8 % (39.0-53.0) Mean Corpuscular Hemoglobin Concent 33 g/dL (31-37) Prothrombin Time 14.5 SEC (11.7-14.0) Prothromb Time International Ratio 1.2 (0.8-1.1) Notes awake and alert sitting up in bed asking for breakfast Assessment and Plan POD # 1 with above listed procedure motor and sensation intact distally calf soft and nontender dressing dry and intact Per RN Hgb 8.4 this morning encourage fluids and redraw Hgb tommorrow Will verify WB status with VALENTINA Lazaro APRN Jun 06, 2019 08:06
[2019-06-06] MEDS: LITHIUM CARBONATE 150 MG CAPSULE. PO SCH ×2 (08:49→21:23)
[2019-06-06] MEDS: SENNOSIDES/DOCUSATE 8.6/50MG TABLET. PO SCH (08:49)
[2019-06-06] MEDS: clonazePAM 0.5 MG TABLET PO SCH ×2 (08:49→21:22)
[2019-06-06] MEDS: ACETAMINOPHEN 500 MG TABLET PO SCH ×3 (08:50→21:23)
[2019-06-06] MEDS: MELOXICAM 7.5 MG TABLET PO SCH (08:50)
[2019-06-06] MEDS: MULTIVITAMIN with MINERAL TABLET. PO SCH (08:50)
[2019-06-06] MEDS: LISINOPRIL 5 MG TABLET. PO SCH (08:50)
[2019-06-06] MEDS: LINAGLIPTIN 5 MG TABLET PO SCH (08:50)
[2019-06-06] MEDS: FERROUS SULFATE 325 MG TABLET. PO SCH ×2 (08:50→17:16)
[2019-06-06] MEDS: metFORMIN 500 MG TABLET PO SCH ×2 (08:51→17:15)
--- NOTE | 2019-06-06 09:21 | NUR ---
IP: Pt has had a hx of mrsa since 2014 with most recent being a + mrsa screen on 05/25/19. Pt to be in contact precautions until there are 2 negative screens 7 days apart.
[2019-06-06] MEDS ORDERED: ONDANSETRON ODT 4 MG TAB.RAPDIS. PO PRN (12:00)
[2019-06-06] MEDS ORDERED: ONDANSETRON PF 4 MG/2 ML VIAL. IV PRN (12:00)
--- NOTE | 2019-06-06 12:35 | NUR ---
SW following. Discussed with RN, pt is from home with . PT/OT ordered. RN advised no SW needs at this time. SW will continue to follow for any discharge planning needs.
--- NOTE | 2019-06-06 14:52 | NUR ---
Pharmacy Warfarin Dosing Note S:Pharmacy consulted to assist with anticoagulation therapy started 06/06/19 with target INR: 1.6 - 2.5 O:ANASTACIA RESENDEZ Naa is a 49 year old M with TKA removal of abx spacer, fracture repair LABS: Last INR: 1.2 Last HGB: 8.9 Last HCT: 26.8 Last PLT: 264 Last dose of 7.5 mg given on 06/06/19 at 0130 Drug Interaction Changes: New Interacting Drug Ongoing Drug Interactions: Meloxicam A:INR of 1.2 is below desired range. Target range for this patient is: 1.6 - 2.5 P: Warfarin dose: 5 mg Today at 1600 Bridge Therapy: None Next INR due 06/07/19 Pharmacy anticoagulation service will continue to follow. [facility], 06/06/19 [id number]
[2019-06-06] MEDS ORDERED: BISACODYL 10 MG SUPP.RECT. PR PRN (16:00)
[2019-06-06] MEDS ORDERED: WARFARIN 5 MG TABLET. PO ONE (16:00)
[2019-06-06] MEDS ORDERED: ANTI-COAG MONITOR BY PHARMACY. MC PRN (16:00)
--- NOTE | 2019-06-06 16:59 | PDOC ---
PROGRESS NOTES Subjective Subjective Problems overnight: Patient is ambulating weightbearing as tolerated and has been walking with walker assistance. He does have some but controllable pain and getting around better than prior to the reimplantation Objective Vital Signs Vital Signs Date Time Temp Pulse Resp B/P (MAP) Pulse Ox O2 Delivery O2 Flow Rate FiO2 06/06/19 15:15 97.7 95 20 134/82 (99) 95 Room Air 97.7 06/05/19 18:45 8 Physical Exam On exam wound VAC is intact with no drainage lateral incision dressing intact Distal neurovascular status intact excellent range of motion and patellofemoral tracking Labs Laboratory Tests Test 06/05/19 08:25 06/05/19 18:45 06/05/19 18:55 06/05/19 21:04 Prothrombin Time 12.9 SEC (11.7-14.0) Prothromb Time International Ratio 1.0 (0.8-1.1) Activated Partial Thromboplast Time 31 SEC (24-38) Glucose (Fingerstick) 151 mg/dL (70-99) 270 mg/dL (70-99) 248 mg/dL (70-99) White Blood Count 7.3 x10^3/uL (4.0-11.0) Red Blood Count 3.99 x10^6/uL (4.30-5.70) Hemoglobin 9.7 g/dL (13.0-17.5) Hematocrit 29.9 % (39.0-53.0) Mean Corpuscular Volume 75 fL (79-100) Mean Corpuscular Hemoglobin 24 pg (25-35) Mean Corpuscular Hemoglobin Concent 33 g/dL (31-37) Red Cell Distribution Width 16.7 % (11.5-14.5) Platelet Count 264 x10^3/uL (140-400) Neutrophils (%) (Auto) 87 % (31-73) Lymphocytes (%) (Auto) 10 % (24-48) Monocytes (%) (Auto) 2 % (0-9) Eosinophils (%) (Auto) 0 % (0-3) Basophils (%) (Auto) 0 % (0-3) Neutrophils # (Auto) 6.4 x10^3/uL (1.8-7.7) Lymphocytes # (Auto) 0.7 x10^3/uL (1.0-4.8) Monocytes # (Auto) 0.2 x10^3/uL (0.0-1.1) Eosinophils # (Auto) 0.0 x10^3/uL (0.0-0.7) Basophils # (Auto) 0.0 x10^3/uL (0.0-0.2) Segmented Neutrophils % 90 % (35-66) Lymphocytes % 10 % (24-48) Platelet Estimate Adequate (ADEQUATE) Hypochromasia Slight Test 06/06/19 04:40 06/06/19 08:06 06/06/19 11:44 06/06/19 16:52 Hemoglobin 8.9 g/dL (13.0-17.5) Hematocrit 26.8 % (39.0-53.0) Mean Corpuscular Hemoglobin Concent 33 g/dL (31-37) Prothrombin Time 14.5 SEC (11.7-14.0) Prothromb Time International Ratio 1.2 (0.8-1.1) Glucose (Fingerstick) 167 mg/dL (70-99) 145 mg/dL (70-99) 150 mg/dL (70-99) Laboratory Tests Test 06/05/19 18:45 06/05/19 18:55 06/05/19 21:04 06/06/19 04:40 Glucose (Fingerstick) 270 mg/dL (70-99) 248 mg/dL (70-99) White Blood Count 7.3 x10^3/uL (4.0-11.0) Red Blood Count 3.99 x10^6/uL (4.30-5.70) Hemoglobin 9.7 g/dL (13.0-17.5) 8.9 g/dL (13.0-17.5) Hematocrit 29.9 % (39.0-53.0) 26.8 % (39.0-53.0) Mean Corpuscular Volume 75 fL (79-100) Mean Corpuscular Hemoglobin 24 pg (25-35) Mean Corpuscular Hemoglobin Concent 33 g/dL (31-37) 33 g/dL (31-37) Red Cell Distribution Width 16.7 % (11.5-14.5) Platelet Count 264 x10^3/uL (140-400) Neutrophils (%) (Auto) 87 % (31-73) Lymphocytes (%) (Auto) 10 % (24-48) Monocytes (%) (Auto) 2 % (0-9) Eosinophils (%) (Auto) 0 % (0-3) Basophils (%) (Auto) 0 % (0-3) Neutrophils # (Auto) 6.4 x10^3/uL (1.8-7.7) Lymphocytes # (Auto) 0.7 x10^3/uL (1.0-4.8) Monocytes # (Auto) 0.2 x10^3/uL (0.0-1.1) Eosinophils # (Auto) 0.0 x10^3/uL (0.0-0.7) Basophils # (Auto) 0.0 x10^3/uL (0.0-0.2) Segmented Neutrophils % 90 % (35-66) Lymphocytes % 10 % (24-48) Platelet Estimate Adequate (ADEQUATE) Hypochromasia Slight Prothrombin Time 14.5 SEC (11.7-14.0) Prothromb Time International Ratio 1.2 (0.8-1.1) Test 06/06/19 08:06 06/06/19 11:44 06/06/19 16:52 Glucose (Fingerstick) 167 mg/dL (70-99) 145 mg/dL (70-99) 150 mg/dL (70-99) Imaging Postop x-rays show excellent alignment of reimplanted total knee hardware and plate and screw fixation lateral femoral epicondyle area Assessment Assessment POD# 1 ORIF lateral epicondyle fracture and reimplantation total knee arthroplasty hardware with a long complicated procedure Plan Plan of Care I went over with he and his mom again how the procedure went the fact that he can continue weightbearing as tolerated, I obtained an infectious disease consultation for some proposed continuation of his antibiotics and the very short-term and pending ID consultation pharmacy will manage vancomycin. He can continue weightbearing as tolerated with walker support at present. Ultimately continue his wound VAC while he is in the hospital transitioning to a Prevena unit on discharge Hemoglobin 9.7 immediately postop and 8.9 today vital signs and clinical picture is stable continue to observe THEE GOMEZ MD Jun 06, 2019 16:58
[2019-06-06] MEDS: VANCOMYCIN PER PHARMACY MC PRN (17:01)
--- NOTE | 2019-06-06 17:05 | NUR ---
Pharmacy Vancomycin Dosing Note S:Consulted to monitor and dose vancomycin started 06/06/19. O:DIPTIANASTACIA Jacome is a 49 year old M with possible TKA infection Height: 5 feet, 7 inches Weight: 116.3 kg Berry Body Weight: 66.10 Adjusted Body Weight: 86.18 Dosing Weight: Actual LABS: Last WBC: 7.3 Tmax (past 24 hours): 97.7 Microbiology: pending I/O: Vancomycin Dosing: Loading Dose: x1 Dosing Weight: Actual Target Trough: 15-20 A: Based on: dosing during last admit P: 1. Begin Vancomycin 1500 mg IV q24h 2. Follow up Trough level on 06/09/19 at 1700 3. Pharmacy will continue to monitor, follow and adjust therapy as needed. Adamaris Watters RPH, 06/06/19 [id number]
[2019-06-06] MEDS: VANCOMYCIN 1.5 GM in IV NORMAL SALINE 500ML BAG 500 ML IV SCH (17:17)
[2019-06-06] MEDS: IV NORMAL SALINE 1000ML BAG 1,000 ML IV SCH (19:39)
[2019-06-06] MEDS: MEROPENEM 1 GM in IV NORMAL SALINE 100ML 100 ML IV SCH (21:23)
[2019-06-06] MEDS: MORPHINE SULFATE 2 MG/ML VIAL. IV PRN (21:35)
[2019-06-07] MEDS: ACETAMINOPHEN 500 MG TABLET PO SCH ×4 (02:30→23:28)
[2019-06-07] MEDS: MORPHINE SULFATE 2 MG/ML VIAL. IV PRN ×2 (04:28→05:59)
[2019-06-07 05:57] LABS: BASO % 1 % (0-3); EOS # 0.5 x10^3/uL (0.0-0.7); EOS % 10 % (0-3); HEMATOCRIT 25.4 % (39.0-53.0); HEMOGLOBIN 8.1 g/dL (13.0-17.5); LYMPH # 0.9 x10^3/uL (1.0-4.8); LYMPH % 19 % (24-48); MEAN CORPUSCULAR HEMOGLOBIN 24 pg (25-35); MEAN CORPUSCULAR HGB CONC 32 g/dL (31-37); MEAN CORPUSCULAR VOLUME 76 fL (79-100); MONO # 0.4 x10^3/uL (0.0-1.1); MONO % 8 % (0-9); NEUT % 62 % (31-73); PLATELET COUNT 207 x10^3/uL (140-400); RED BLOOD COUNT 3.36 x10^6/uL (4.30-5.70); WHITE BLOOD COUNT 4.8 x10^3/uL (4.0-11.0)
[2019-06-07] MEDS: traMADol 50 MG TABLET PO SCH ×4 (05:58→18:02)
[2019-06-07] MEDS: GABAPENTIN 100 MG CAPSULE. PO SCH ×3 (05:58→23:30)
[2019-06-07] MEDS: MEROPENEM 1 GM in IV NORMAL SALINE 100ML 100 ML IV SCH ×2 (05:59→14:13)
[2019-06-07 06:28] LABS: ALBUMIN 2.9 g/dL (3.4-5.0); ALBUMIN/GLOBULIN RATIO 0.9 (1.0-1.7); CALCIUM 8.4 mg/dL (8.5-10.1); CREATININE 1.1 mg/dL (0.7-1.3); GFR 70.9; POTASSIUM 3.3 mmol/L (3.5-5.1); TOTAL BILIRUBIN 0.2 mg/dL (0.2-1.0); TOTAL PROTEIN 6.2 g/dL (6.4-8.2)
[2019-06-07 07:00] VITALS: BP 173/88
[2019-06-07] MEDS: LISINOPRIL 5 MG TABLET. PO SCH (08:53)
[2019-06-07] MEDS: LITHIUM CARBONATE 150 MG CAPSULE. PO SCH ×2 (08:53→23:28)
[2019-06-07] MEDS: SENNOSIDES/DOCUSATE 8.6/50MG TABLET. PO SCH (08:53)
[2019-06-07] MEDS: LINAGLIPTIN 5 MG TABLET PO SCH (08:53)
[2019-06-07] MEDS: MULTIVITAMIN with MINERAL TABLET. PO SCH (08:54)
[2019-06-07] MEDS: FERROUS SULFATE 325 MG TABLET. PO SCH ×2 (08:54→16:20)
[2019-06-07] MEDS: MELOXICAM 7.5 MG TABLET PO SCH (08:54)
[2019-06-07] MEDS: clonazePAM 0.5 MG TABLET PO SCH ×2 (08:54→23:28)
[2019-06-07] MEDS: metFORMIN 500 MG TABLET PO SCH ×2 (08:54→16:20)
[2019-06-07] MEDS: oxyCODONE IR 5 MG TABLET PO PRN ×3 (09:00→19:55)
[2019-06-07] MEDS: VANCOMYCIN PER PHARMACY MC PRN (09:36)
--- NOTE | 2019-06-07 09:40 | NUR ---
Pharmacy Warfarin Dosing Note S:Pharmacy consulted to assist with anticoagulation therapy started 06/06/19 with target INR: 1.6 - 2.5 O:ANASTACIA RESENDEZ Naa is a 49 year old M with TKA removal of abx spacer, fracture repair LABS: Last INR: 1.5 Last HGB: 8.1 Last HCT: 25.4 Last PLT: 207 Last dose of 5 mg given on 06/06/19 at 1503 Drug Interaction Changes: Same Interacting Drug Ongoing Drug Interactions: Meloxicam A:INR of 1.5 is below desired range. Target range for this patient is: 1.6 - 2.5 P: Warfarin dose: 3 mg Today at 1600 Bridge Therapy: None Next INR due 282/0 Pharmacy anticoagulation service will continue to follow. VIVIEN TAN RPH, 06/07/19 0123
--- NOTE | 2019-06-07 09:42 | NUR ---
SW following. Discussed with RN. PT/OT recommending home with home health. Pt has had [facility] in the past, and had [facility] for IV abx last admission. Pt not ready for discharge today. Maria Teresa Kulkarni RN to see pt re home health. SW will continue to follow.
--- NOTE | 2019-06-07 10:47 | PDOC ---
Infectious Disease Note Subjective: Subjective Pt seen and examined ID consult dictated D/W Mother at bedside Cult from 06/05 neg so far Pt underwent synovasure at Dr De La Rosa office as below faxed results reviewed 05/12/19 Results - Left Knee Synovasure Alpha Defnsin PJI: Negative Hemoglobin SF - normal CRP - SF 32.4 RBC [id number] Total Nucleated Cell Count 161 - Neutrophils 40.9% - Mononuclear Cells 59.1% Microbial ID Panel P. Acnes: Negative Staph Panel: Negative Maricruz Panel: Negative Enterococcus Panel: Negative Fluid Culture Screen: Preliminary Results - No growth to date Vital Signs: Vital Signs Vital Signs Date Time Temp Pulse Resp B/P (MAP) Pulse Ox O2 Delivery O2 Flow Rate FiO2 06/07/19 10:00 Room Air 06/07/19 08:53 93 173/88 06/07/19 07:00 98.3 18 96 98.3 Medications: Inpatient Meds: Current Medications Medications (Trade) Dose Ordered Sig/Edilma Start Time Stop Time Status Last Admin Dose Admin Acetaminophen (Tylenol) 1,000 mg Q6H 06/06/19 09:00 06/07/19 09:00 1,000 MG Albumin Human 500 ml @ As Directed STK-MED ONCE 06/05/19 14:12 06/05/19 14:12 DC Bisacodyl (Dulcolax Supp) 10 mg 1X PRN PRN 06/06/19 16:00 06/07/19 15:59 Calcium Carbonate/ Glycine (Tums) 500 mg PRN QID PRN 06/05/19 19:45 Clonazepam (KlonoPIN) 1 mg BID 06/06/19 09:00 06/07/19 08:54 1 MG Dexamethasone Sodium Phosphate (Decadron) 4 mg STK-MED ONCE 06/05/19 08:48 06/05/19 08:48 DC Dextrose (Dextrose 50%-Water Syringe) 12.5 gm PRN Q15MIN PRN 06/05/19 19:45 Diphenhydramine HCl (Benadryl) 25 mg PRN Q6HRS PRN 06/05/19 19:45 Ephedrine Sulfate (ePHEDrine PF IN SALINE SYRINGE) 50 mg STK-MED ONCE 06/05/19 14:47 06/05/19 14:47 DC Fentanyl Citrate (Fentanyl 2ml Vial) 50 mcg PRN Q1HR PRN 06/05/19 19:45 Ferrous Sulfate (Feosol) 325 mg BIDWMEALS 06/06/19 08:00 06/07/19 08:54 325 MG Gabapentin (Neurontin) 100 mg Q8HRS 06/06/19 06:00 06/07/19 05:58 100 MG Hydralazine HCl (Apresoline Inj) 20 mg STK-MED ONCE 06/05/19 11:42 06/05/19 11:42 DC Hydromorphone HCl (Dilaudid) 0.5 mg PRN Q10MIN PRN 06/05/19 07:00 06/06/19 06:59 DC Info (Anti-Coagulation Monitoring By Pharmacy) 1 each PRN DAILY PRN 06/06/19 16:00 06/06/19 14:48 DC Insulin Human Lispro (HumaLOG VIAL for OP,RR ONLY) 100 unit STK-MED ONCE 06/05/19 09:00 06/07/19 08:19 DC Ketamine HCl (Ketamine) 50 mg STK-MED ONCE 06/05/19 11:30 06/05/19 11:30 DC Ketorolac Tromethamine (Toradol 30mg Vial) 30 mg STK-MED ONCE 06/05/19 11:41 06/05/19 11:42 DC Lactobacillus Rhamnosus (Culturelle) 1 cap BID 06/07/19 21:00 Lidocaine HCl (Lidocaine Pf 2% Vial) 5 ml STK-MED ONCE 06/05/19 08:48 06/05/19 08:48 DC Linagliptin (Tradjenta) 5 mg DAILY08 06/06/19 08:00 06/07/19 08:53 5 MG Lisinopril (Prinivil) 5 mg DAILY 06/06/19 09:00 06/07/19 08:53 5 MG Lynden Carbonate (Lynden Carbonate) 300 mg BID 06/06/19 09:00 06/07/19 08:53 300 MG Magnesium Hydroxide (Milk Of Magnesia) 2,400 mg 1X PRN PRN 06/06/19 06:00 06/07/19 05:59 DC Meloxicam (Mobic) 15 mg DAILY 06/06/19 09:00 06/07/19 08:54 15 MG Meropenem 1 gm/ Sodium Chloride 100 ml @ 200 mls/hr Q8HRS 06/06/19 22:00 06/07/19 05:59 200 MLS/HR Metformin HCl (Glucophage) 1,000 mg BIDWMEALS 06/06/19 08:00 06/07/19 08:54 1,000 MG Morphine Sulfate (Morphine Sulfate) 4 mg PRN Q1HR PRN 06/05/19 19:45 06/06/19 01:12 4 MG Morphine Sulfate 5 mg/Ketorolac Tromethamine 30 mg/Ropivacaine 60 ml/Epinephrine HCl 0.5 mg/Sodium Chloride 100 ml @ 100 mls/hr 1X ONCE 06/05/19 06:00 06/05/19 06:59 DC 06/05/19 11:32 Multivitamins (Thera M Plus) 1 tab DAILY 06/06/19 09:00 06/07/19 08:54 1 TAB Non-Formulary Medication (Doxepin Hcl ) 300 mg HS 06/06/19 01:30 06/06/19 21:24 300 MG Non-Formulary Medication (Sitagliptin Phos/Metformin Hcl (Janumet 50-1,000 Mg Tablet)) 1 tab BID 06/05/19 21:00 UNV Ondansetron HCl (Zofran Odt) 4 mg PRN Q6HRS PRN 06/06/19 12:00 Ondansetron HCl (Zofran) 4 mg PRN Q6HRS PRN 06/06/19 12:00 Oxycodone HCl (Roxicodone) 10 mg PRN Q4HRS PRN 06/05/19 19:45 06/07/19 09:00 10 MG Oxycodone/ Acetaminophen (Percocet 7.5/ 325) 1 tab PRN Q6HRS PRN 06/05/19 19:45 Prochlorperazine Edisylate (Compazine) 10 mg STK-MED ONCE 06/05/19 18:28 06/05/19 18:28 DC Prochlorperazine Maleate (Compazine) 10 mg PRN Q4HRS PRN 06/05/19 19:45 Propofol 20 ml @ As Directed STK-MED ONCE 06/05/19 11:43 06/05/19 11:43 DC Ringer's Solution 1,000 ml @ 30 mls/hr Q24H 06/05/19 07:00 06/05/19 18:59 DC 06/05/19 08:49 30 MLS/HR Senna/Docusate Sodium (Senna Plus) 1 tab DAILY 06/06/19 09:00 06/07/19 08:53 1 TAB Sevoflurane (Ultane) 90 ml STK-MED ONCE 06/05/19 11:47 06/05/19 11:47 DC Sodium Chloride (Normal Saline Flush) 10 ml QSHIFT PRN 06/05/19 19:45 Tizanidine HCl (Zanaflex) 4 mg PRN TID PRN 06/05/19 19:45 06/06/19 05:15 4 MG Tramadol HCl (Ultram) 50 mg Q6H 06/06/19 06:00 06/07/19 05:58 50 MG Tranexamic Acid 1000 mg/Sodium Chloride 60 ml @ 60 mls/hr 1X PERIOP ONCE 06/05/19 08:00 06/05/19 08:59 DC 06/05/19 17:12 60 MLS/HR Vancomycin HCl (Vanco Per Pharmacy) 1 each PRN DAILY PRN 06/06/19 17:00 06/07/19 09:36 1 EACH Vancomycin HCl (Vancomycin Trough Level) 1 each 1X ONCE 06/09/19 17:00 06/09/19 17:01 Vancomycin HCl (Vancomycin) 1 gm STK-MED ONCE 06/05/19 14:03 06/05/19 14:03 DC 06/05/19 14:09 1 GM Vancomycin HCl 1.5 gm/Sodium Chloride 500 ml @ 250 mls/hr Q24H 06/06/19 17:30 06/06/19 17:17 250 MLS/HR Vancomycin HCl 1 gm/Sodium Chloride 250 ml @ 250 mls/hr 1X ONCE 06/05/19 01:00 06/06/19 01:11 DC 06/06/19 01:22 250 MLS/HR Warfarin Sodium (Coumadin Per Pharmacy) 1 each PRN DAILY PRN 06/05/19 19:45 06/07/19 09:40 1 EACH Warfarin Sodium (Coumadin) 3 mg 1X WARF ONCE 06/07/19 16:00 06/07/19 16:01 Zolpidem Tartrate (Ambien) 5 mg PRN QHS PRN 06/05/19 19:45 Labs: Lab Laboratory Tests Test 06/06/19 11:44 06/06/19 16:52 06/06/19 20:20 06/07/19 05:10 Glucose (Fingerstick) 145 mg/dL (70-99) 150 mg/dL (70-99) 165 mg/dL (70-99) White Blood Count 4.8 x10^3/uL (4.0-11.0) Red Blood Count 3.36 x10^6/uL (4.30-5.70) Hemoglobin 8.1 g/dL (13.0-17.5) Hematocrit 25.4 % (39.0-53.0) Mean Corpuscular Volume 76 fL (79-100) Mean Corpuscular Hemoglobin 24 pg (25-35) Mean Corpuscular Hemoglobin Concent 32 g/dL (31-37) Red Cell Distribution Width 17.0 % (11.5-14.5) Platelet Count 207 x10^3/uL (140-400) Neutrophils (%) (Auto) 62 % (31-73) Lymphocytes (%) (Auto) 19 % (24-48) Monocytes (%) (Auto) 8 % (0-9) Eosinophils (%) (Auto) 10 % (0-3) Basophils (%) (Auto) 1 % (0-3) Neutrophils # (Auto) 3.0 x10^3/uL (1.8-7.7) Lymphocytes # (Auto) 0.9 x10^3/uL (1.0-4.8) Monocytes # (Auto) 0.4 x10^3/uL (0.0-1.1) Eosinophils # (Auto) 0.5 x10^3/uL (0.0-0.7) Basophils # (Auto) 0.0 x10^3/uL (0.0-0.2) Prothrombin Time 18.0 SEC (11.7-14.0) Prothromb Time International Ratio 1.5 (0.8-1.1) Sodium Level 143 mmol/L (136-145) Potassium Level 3.3 mmol/L (3.5-5.1) Chloride Level 107 mmol/L (98-107) Carbon Dioxide Level 25 mmol/L (21-32) Anion Gap 11 (6-14) Blood Urea Nitrogen 12 mg/dL (8-26) Creatinine 1.1 mg/dL (0.7-1.3) Estimated GFR (Cockcroft-Gault) 70.9 BUN/Creatinine Ratio 11 (6-20) Glucose Level 188 mg/dL (70-99) Calcium Level 8.4 mg/dL (8.5-10.1) Total Bilirubin 0.2 mg/dL (0.2-1.0) Aspartate Amino Transf (AST/SGOT) 10 U/L (15-37) Alanine Aminotransferase (ALT/SGPT) 13 U/L (16-63) Alkaline Phosphatase 78 U/L (46-116) Total Protein 6.2 g/dL (6.4-8.2) Albumin 2.9 g/dL (3.4-5.0) Albumin/Globulin Ratio 0.9 (1.0-1.7) Test 06/07/19 08:06 Glucose (Fingerstick) 134 mg/dL (70-99) Objective: Assessment: S/P Lt knee revision arthroplasty 06/05 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
[2019-06-07 11:00] VITALS: BP 138/43
--- NOTE | 2019-06-07 12:25 | CONS ---
DATE OF CONSULTATION: 06/07/2019 REFERRING PHYSICIAN: Madhav Avila M.D. REASON FOR CONSULTATION Lt Knee revision arthroplasty HPI: Pt well known to our team from previous hospitalization had Left knee prosthetic joint infection status post removal of total knee arthroplasty components with insertion of antibiotic spacer and extensive debridement on 03/13/2019. Intraoperatively, he was treated with vancomycin and tobramycin. Intraoperative cultures remain negative. Swab cultures on 03/11/2019 grew E. faecalis, ampicillin sensitive. Synovial fluid cultures done on 03/07 grew MRSE tetracycline resistant. The patient was discharged home on IV vancomycin and ampicillin, started on 03/17/2019 which he completed on 04/25/2019. The patient had wound VAC in place, which was continued per pt till May 10 2009 He had some kind of an allergic reaction to the local wound treatment after his last visit with some excoriation. He had a cortisol application per wound team physicians, it ultimately healed. He had synovial aspirate done on 05/[address] Avila's office, which has been reported negative per mother and the patient at bedside today. I do not have official results for review at this time. On 06/05/2019 , patient underwent removal of antibiotic spacer, operative reduction and internal fixation of lateral epicondyle fracture, and insertion of stemmed tibial and femoral components with reimplantation resurfacing patellar component on 06/05/2019, which he tolerated well. The patient was started on IV vancomycin. His white count was 7.3 on 06/05/2019, hemoglobin of 9.7, platelets of 264, neutrophil count of 87. CRP was done as outpatient on 05/25 which was 20.4. Last ESR was 21 on 05/25/2019. MRSA nasal screen was positive. Wound cultures were done on 06/05, which shows no organisms, no WBCs seen, many RBCs seen on Gram stain. Intraoperative note reviewed. There were no organisms seen in the Gram stain, rare WBCs, plentiful RBCs. The antibiotic spacers were removed piecemeal. He was noted to have a crack in the lateral epicondyle initially nondisplaced. The patient was started on IV vancomycin empirically. Yesterday, I started him on meropenem. Today, the patient has no complaints. He is ambulating and weightbearing as tolerated. He denies any fevers, chills, nausea, vomiting, diarrhea, abdominal pain, headache, or rash. His pain is under good control with pain medication. He denies any rash. Wound VAC is intact. No drainage. No numbness or tingling. No back pain. No tinnitus or vertigo. No hearing problems. Appetite is good. PAST MEDICAL HISTORY: Diabetes, hypertension, hypothyroidism, osteoarthritis, bipolar disorder, ANALIA, status post tonsillectomy, status post adenoidectomy, right total knee arthroplasty in the past, left knee total arthroplasty on 08/22/2018 status post I and D with polyethylene exchange on 09/19/2018. Cultures from January and 09/2018 negative including AFB and fungal. Left knee total arthroplasty done in 01/2018. History of fall on 02/11/2019 with dislocation of the patellar component of the left knee arthroplasty from the posterior aspect of the patella with surrounding soft tissue swelling and large suprapatellar effusion. Synovial fluid aspirate at Dr. Avila's office on 03/07 with growth of methicillin-resistant Staphylococcus epidermidis, tetracycline resistant. Swab culture during his hospitalization on 03/11/2019 grew E. faecalis, ampicillin sensitive. On 03/13/2019 status post removal of total left knee arthroplasty components with insertion of antibiotic spacer and extensive debridement. Intraoperative vancomycin and tobramycin placement. Intraoperative cultures negative including AFB. ESR was 75, down to 21 on 05/25/2019. SOCIAL HISTORY: Smokes occasional cigar. No alcohol, no drug use. , lives with . ALLERGIES: No known drug allergies. CURRENT MEDICATIONS: Vancomycin and meropenem. Other medications were reviewed in the medication list. REVIEW OF SYSTEMS: Negative except for above in HPI. PHYSICAL EXAMINATION: VITAL SIGNS: Temperature 98.3, pulse 93, respiratory rate 18, blood pressure 173/88, oxygen saturation 96% on room air. GENERAL: Alert and oriented x 3 male in no acute distress, comfortable, working on his computer, mother at bedside. HEENT: Normocephalic, atraumatic, anicteric, and edentulous. No thrush. No oropharyngeal exudate or erythema. NECK: Supple, no JVD, no lymphadenopathy, no thyromegaly. LUNGS: Clear bilaterally. No wheezing. HEART: S1 and S2. No gallops, murmurs, or rubs. ABDOMEN: Soft, nontender, nondistended, no rebound, no guarding. EXTREMITIES: Left knee with wound VAC in place. Mild swelling. Wound VAC not taken down. Dressing intact. No leakage. No surrounding erythema, no purulence. NEUROLOGIC: Alert and oriented x 3, grossly nonfocal. DERMATOLOGIC: Warm and dry. No generalized rash. PIV site looks okay. PSYCHIATRIC: Cooperative, appropriate mood and affect. LABORATORY DATA: WBC 4.8, hemoglobin 8.1, hematocrit 25.4, platelets 207, lymphocytes 19, neutrophil percent 62, ESR 21 on 05/25/2018. Sodium 143, potassium 3.3, chloride 107, bicarb 25, BUN 12, creatinine 1.1, glucose 134, calcium 8.4, total bili 2.2. LFTs: AST and ALT within normal limits. Albumin 2.9. Nasal screen on 05/25/2018, MRSA PCR positive. MICROBIOLOGY: Gram stain, no WBC's, no organisms seen, plentiful RBCs. Culture pending at this time from 06/05/2019. IMAGING: Postoperative knee x-ray on 06/05 shows postoperative revision of left knee arthroplasty. Alignment anatomic. No periprosthetic fracture. There is lateral plate of the distal femur. There is diffuse soft tissue swelling and soft tissue gas with overlying skin yasmeen. Interval revision of total knee arthroplasties noted. Chest x-ray on 05/25/2019, there is no radiographic abnormality. IMPRESSION: Lt aurora revision arthtoplasty 06/05 cults negative Status post 06/05/2019 removal of antibiotic spacer. Operative reduction and internal fixation of lateral epicondyle fracture and insertion of stemmed tibial and femoral components with reimplantation resurfacing patellar component, cultures negative so far. Left knee prosthetic joint infection. Synovial cultures positive for methicillin-resistant Staphylococcus epidermidis on 03/07/2019, tetracycline resistant, swab cultures on 03/11/2019 grew Enterobacter faecalis, ampicillin sensitive. Left prosthetic joint infection status post explant on 03/13/2019, The patient was treated for 6 weeks of IV vancomycin and ampicillin. treated with IV antibiotics. Last dose was on 04/25/2019. Wound dehiscence with wound VAC management up until approximately the end of 04/2019 through wound team with excoriation due to allergic component from wound dressing resolved prior to admission. History of fall with dislocation of the patellar component of left knee arthroplasty from the posterior aspect of patella on 02/11/2019 Status post 08/22/2018, incision and drainage on 09/19/2018 with polyethylene exchange. Cultures from 09/2018 remain negative including acid-fast bacilli, fungal. Left total knee arthroplasty in 01/2018. Diabetes. Bipolar disorder. Anemia. Obstructive sleep apnea. Hypertension. Osteoarthritis. RECOMMENDATIONS: 1. Continue empiric IV vancomycin and meropenem. 2. Monitor renal functions closely. 3. Follow up intraoperative cultures. 4. Continue supportive care. 5. Wound care per Orthopedics. 6. Wound VAC care per Orthopedics. 7. Antimicrobial toxicities explained to the patient. 8. Discussed with the mother at bedside also. 9. We will have nurse call Dr. Avila's office to obtain synovial aspirate results, which were done on 05/07/2019 in outpatient clinic for our review. Thank you, Dr. Avila, for consulting Infectious Disease to participate in this patient's care. If you have any questions, do not hesitate to contact me. KYLAH DOUGLASS MD DR: SREEDHAR/ritesh JOB#: [id number] / [id number] LIAM
[2019-06-07] MEDS ORDERED: LIDOCAINE (700MG/PATCH) PATCH. TD SCH (13:00)
[2019-06-07] MEDS: LIDOCAINE (700MG/PATCH) PATCH. TD SCH (14:12)
[2019-06-07 15:00] VITALS: BP 130/76
[2019-06-07] MEDS ORDERED: WARFARIN 3 MG TABLET. PO ONE (16:00)
[2019-06-07] MEDS: VANCOMYCIN 1.5 GM in IV NORMAL SALINE 500ML BAG 500 ML IV SCH (18:01)
[2019-06-07] MEDS: MORPHINE SULFATE 4 MG/ML VIAL. IV PRN (18:02)
--- NOTE | 2019-06-07 18:02 | PDOC ---
ORTHO PROGRESS NOTES Subjective Patient alert and indicates feeling better today. Pain controlled. Good appetite Post-op Day: 2 Procedure Removal of antibiotic spacer, with operative reduction and internal fixation of lateral epicondyle fracture, Insertion of stemmed tibial and femoral components with reimplantation resurfacing patella component Vitals Vital Signs Date Time Temp Pulse Resp B/P (MAP) Pulse Ox O2 Delivery O2 Flow Rate FiO2 06/07/19 15:12 Room Air 06/07/19 15:00 98.2 96 16 130/76 (94) 100 98.2 06/07/19 14:12 8.0 Labs Laboratory Tests Test 06/05/19 18:45 06/05/19 18:55 06/05/19 21:04 06/06/19 04:40 Glucose (Fingerstick) 270 mg/dL (70-99) 248 mg/dL (70-99) White Blood Count 7.3 x10^3/uL (4.0-11.0) Red Blood Count 3.99 x10^6/uL (4.30-5.70) Hemoglobin 9.7 g/dL (13.0-17.5) 8.9 g/dL (13.0-17.5) Hematocrit 29.9 % (39.0-53.0) 26.8 % (39.0-53.0) Mean Corpuscular Volume 75 fL (79-100) Mean Corpuscular Hemoglobin 24 pg (25-35) Mean Corpuscular Hemoglobin Concent 33 g/dL (31-37) 33 g/dL (31-37) Red Cell Distribution Width 16.7 % (11.5-14.5) Platelet Count 264 x10^3/uL (140-400) Neutrophils (%) (Auto) 87 % (31-73) Lymphocytes (%) (Auto) 10 % (24-48) Monocytes (%) (Auto) 2 % (0-9) Eosinophils (%) (Auto) 0 % (0-3) Basophils (%) (Auto) 0 % (0-3) Neutrophils # (Auto) 6.4 x10^3/uL (1.8-7.7) Lymphocytes # (Auto) 0.7 x10^3/uL (1.0-4.8) Monocytes # (Auto) 0.2 x10^3/uL (0.0-1.1) Eosinophils # (Auto) 0.0 x10^3/uL (0.0-0.7) Basophils # (Auto) 0.0 x10^3/uL (0.0-0.2) Segmented Neutrophils % 90 % (35-66) Lymphocytes % 10 % (24-48) Platelet Estimate Adequate (ADEQUATE) Hypochromasia Slight Prothrombin Time 14.5 SEC (11.7-14.0) Prothromb Time International Ratio 1.2 (0.8-1.1) Test 06/06/19 08:06 06/06/19 11:44 06/06/19 16:52 06/06/19 20:20 Glucose (Fingerstick) 167 mg/dL (70-99) 145 mg/dL (70-99) 150 mg/dL (70-99) 165 mg/dL (70-99) Test 06/07/19 05:10 06/07/19 08:06 06/07/19 11:36 White Blood Count 4.8 x10^3/uL (4.0-11.0) Red Blood Count 3.36 x10^6/uL (4.30-5.70) Hemoglobin 8.1 g/dL (13.0-17.5) Hematocrit 25.4 % (39.0-53.0) Mean Corpuscular Volume 76 fL (79-100) Mean Corpuscular Hemoglobin 24 pg (25-35) Mean Corpuscular Hemoglobin Concent 32 g/dL (31-37) Red Cell Distribution Width 17.0 % (11.5-14.5) Platelet Count 207 x10^3/uL (140-400) Neutrophils (%) (Auto) 62 % (31-73) Lymphocytes (%) (Auto) 19 % (24-48) Monocytes (%) (Auto) 8 % (0-9) Eosinophils (%) (Auto) 10 % (0-3) Basophils (%) (Auto) 1 % (0-3) Neutrophils # (Auto) 3.0 x10^3/uL (1.8-7.7) Lymphocytes # (Auto) 0.9 x10^3/uL (1.0-4.8) Monocytes # (Auto) 0.4 x10^3/uL (0.0-1.1) Eosinophils # (Auto) 0.5 x10^3/uL (0.0-0.7) Basophils # (Auto) 0.0 x10^3/uL (0.0-0.2) Prothrombin Time 18.0 SEC (11.7-14.0) Prothromb Time International Ratio 1.5 (0.8-1.1) Sodium Level 143 mmol/L (136-145) Potassium Level 3.3 mmol/L (3.5-5.1) Chloride Level 107 mmol/L (98-107) Carbon Dioxide Level 25 mmol/L (21-32) Anion Gap 11 (6-14) Blood Urea Nitrogen 12 mg/dL (8-26) Creatinine 1.1 mg/dL (0.7-1.3) Estimated GFR (Cockcroft-Gault) 70.9 BUN/Creatinine Ratio 11 (6-20) Glucose Level 188 mg/dL (70-99) Calcium Level 8.4 mg/dL (8.5-10.1) Total Bilirubin 0.2 mg/dL (0.2-1.0) Aspartate Amino Transf (AST/SGOT) 10 U/L (15-37) Alanine Aminotransferase (ALT/SGPT) 13 U/L (16-63) Alkaline Phosphatase 78 U/L (46-116) Total Protein 6.2 g/dL (6.4-8.2) Albumin 2.9 g/dL (3.4-5.0) Albumin/Globulin Ratio 0.9 (1.0-1.7) Glucose (Fingerstick) 134 mg/dL (70-99) 143 mg/dL (70-99) Laboratory Tests Test 06/06/19 20:20 06/07/19 05:10 06/07/19 08:06 06/07/19 11:36 Glucose (Fingerstick) 165 mg/dL (70-99) 134 mg/dL (70-99) 143 mg/dL (70-99) White Blood Count 4.8 x10^3/uL (4.0-11.0) Red Blood Count 3.36 x10^6/uL (4.30-5.70) Hemoglobin 8.1 g/dL (13.0-17.5) Hematocrit 25.4 % (39.0-53.0) Mean Corpuscular Volume 76 fL (79-100) Mean Corpuscular Hemoglobin 24 pg (25-35) Mean Corpuscular Hemoglobin Concent 32 g/dL (31-37) Red Cell Distribution Width 17.0 % (11.5-14.5) Platelet Count 207 x10^3/uL (140-400) Neutrophils (%) (Auto) 62 % (31-73) Lymphocytes (%) (Auto) 19 % (24-48) Monocytes (%) (Auto) 8 % (0-9) Eosinophils (%) (Auto) 10 % (0-3) Basophils (%) (Auto) 1 % (0-3) Neutrophils # (Auto) 3.0 x10^3/uL (1.8-7.7) Lymphocytes # (Auto) 0.9 x10^3/uL (1.0-4.8) Monocytes # (Auto) 0.4 x10^3/uL (0.0-1.1) Eosinophils # (Auto) 0.5 x10^3/uL (0.0-0.7) Basophils # (Auto) 0.0 x10^3/uL (0.0-0.2) Prothrombin Time 18.0 SEC (11.7-14.0) Prothromb Time International Ratio 1.5 (0.8-1.1) Sodium Level 143 mmol/L (136-145) Potassium Level 3.3 mmol/L (3.5-5.1) Chloride Level 107 mmol/L (98-107) Carbon Dioxide Level 25 mmol/L (21-32) Anion Gap 11 (6-14) Blood Urea Nitrogen 12 mg/dL (8-26) Creatinine 1.1 mg/dL (0.7-1.3) Estimated GFR (Cockcroft-Gault) 70.9 BUN/Creatinine Ratio 11 (6-20) Glucose Level 188 mg/dL (70-99) Calcium Level 8.4 mg/dL (8.5-10.1) Total Bilirubin 0.2 mg/dL (0.2-1.0) Aspartate Amino Transf (AST/SGOT) 10 U/L (15-37) Alanine Aminotransferase (ALT/SGPT) 13 U/L (16-63) Alkaline Phosphatase 78 U/L (46-116) Total Protein 6.2 g/dL (6.4-8.2) Albumin 2.9 g/dL (3.4-5.0) Albumin/Globulin Ratio 0.9 (1.0-1.7) X-Rays [id number] [place] [address] IMAGING REPORT Signed PATIENT: ANASTACIA RESENDEZ ACCOUNT: [id number] : 1970 LOCATION: [address] [place] [address] AGE: 49 SEX: M EXAM STATUS: ADM IN ORD. PHYSICIAN: THEE GOMEZ MD REASON: POST OP 432 PROCEDURE: KNEE LEFT 2V Two-view left knee dated 06/05/2019. Comparison made to August 22, 2018. CLINICAL INDICATION: Postop fracture. FINDINGS: AP and lateral views obtained. There is been interval revision total knee arthroplasty. Femoral and tibial components intact. There is a lateral plate at the distal femur. Alignment anatomic. No periprosthetic fracture. There is diffuse soft tissue swelling and soft tissue gas with overlying skin yasmeen. IMPRESSION: Postop revision of total knee arthroplasty. Electronically signed by: Adam Dejesus MD (06/05/2019 11:22 PM) [id number] DICTATED and SIGNED BY: ADAM DEJESUS MD DATE: 06/05/192321 Notes Pt is A&Ox3 sitting comfortably in bed, eating breakfast. LEFT knee no currently immoblized. Wound vac is in place over anterior incision. No external drainage, blistering, erythema, induration, or other signs of infection. Mild swelling. Calf nontender bilaterally with neg drake's sign bilaterally. No distress. Breathing comfortably. Mood is euthymic . Problems: (1) Periprosthetic fracture around internal prosthetic knee joint (2) S/P revision of total knee (3) History of arthroplasty of left knee Assessment and Plan Continue current treatment plan and medications. Continue wound vac. ICS, WBAT LEFT knee with walker. Continue OT/PT Problem Qualifiers (1) S/P revision of total knee: Laterality: left Qualified Codes: Z96.652 - Presence of left artificial knee joint VALENTINA MCKAY Jr. PAC Jun 07, 2019 6:02 pm
[2019-06-07 19:00] VITALS: BP 152/74
[2019-06-07] MEDS: IV NORMAL SALINE 1000ML BAG 1,000 ML IV SCH (19:39)
[2019-06-07] MEDS: LACTOBACILLUS RHAMNOSUS GG 1 CAPSULE. PO SCH (23:27)
[2019-06-07] MEDS: oxyCODONE/APAP 7.5/325 1 TAB TABLET PO PRN (23:27)
[2019-06-07] MEDS: DOXEPIN HCL 150 MG PO SCH (23:29)
[2019-06-08] VITALS: BP 152/92
[2019-06-08] MEDS: traMADol 50 MG TABLET PO SCH ×3 (00:12→11:59)
[2019-06-08] MEDS: MORPHINE SULFATE 4 MG/ML VIAL. IV PRN (00:12)
[2019-06-08] MEDS: MEROPENEM 1 GM in IV NORMAL SALINE 100ML 100 ML IV SCH ×3 (02:08→13:45)
[2019-06-08 03:00] VITALS: BP 151/93
[2019-06-08] MEDS: ACETAMINOPHEN 500 MG TABLET PO SCH ×3 (03:00→15:00)
[2019-06-08] MEDS: GABAPENTIN 100 MG CAPSULE. PO SCH ×2 (06:33→13:47)
[2019-06-08] MEDS: oxyCODONE IR 5 MG TABLET PO PRN (06:34)
[2019-06-08 07:00] VITALS: BP 154/97
--- NOTE | 2019-06-08 07:10 | PDOC ---
PROGRESS NOTES Subjective Subjective Problems overnight: Chang states that the knee is overall doing well. His biggest problem was antibiotic yesterday where he got multiple sticks trying to get an IV unsuccessfully Objective Vital Signs Vital Signs Date Time Temp Pulse Resp B/P (MAP) Pulse Ox O2 Delivery O2 Flow Rate FiO2 06/08/19 06:34 16 06/08/19 04:26 Room Air 8.0 06/08/19 03:00 98.9 92 151/93 (112) 95 98.9 Physical Exam Wound VAC is intact has no drainage whatsoever dressing from the lateral incision intact good range of motion and stability patellofemoral tracking distal neurovascular status intact Labs Laboratory Tests Test 06/06/19 08:06 06/06/19 11:44 06/06/19 16:52 06/06/19 20:20 Glucose (Fingerstick) 167 mg/dL (70-99) 145 mg/dL (70-99) 150 mg/dL (70-99) 165 mg/dL (70-99) Test 06/07/19 05:10 06/07/19 08:06 06/07/19 11:36 06/07/19 20:15 White Blood Count 4.8 x10^3/uL (4.0-11.0) Red Blood Count 3.36 x10^6/uL (4.30-5.70) Hemoglobin 8.1 g/dL (13.0-17.5) Hematocrit 25.4 % (39.0-53.0) Mean Corpuscular Volume 76 fL (79-100) Mean Corpuscular Hemoglobin 24 pg (25-35) Mean Corpuscular Hemoglobin Concent 32 g/dL (31-37) Red Cell Distribution Width 17.0 % (11.5-14.5) Platelet Count 207 x10^3/uL (140-400) Neutrophils (%) (Auto) 62 % (31-73) Lymphocytes (%) (Auto) 19 % (24-48) Monocytes (%) (Auto) 8 % (0-9) Eosinophils (%) (Auto) 10 % (0-3) Basophils (%) (Auto) 1 % (0-3) Neutrophils # (Auto) 3.0 x10^3/uL (1.8-7.7) Lymphocytes # (Auto) 0.9 x10^3/uL (1.0-4.8) Monocytes # (Auto) 0.4 x10^3/uL (0.0-1.1) Eosinophils # (Auto) 0.5 x10^3/uL (0.0-0.7) Basophils # (Auto) 0.0 x10^3/uL (0.0-0.2) Prothrombin Time 18.0 SEC (11.7-14.0) Prothromb Time International Ratio 1.5 (0.8-1.1) Sodium Level 143 mmol/L (136-145) Potassium Level 3.3 mmol/L (3.5-5.1) Chloride Level 107 mmol/L (98-107) Carbon Dioxide Level 25 mmol/L (21-32) Anion Gap 11 (6-14) Blood Urea Nitrogen 12 mg/dL (8-26) Creatinine 1.1 mg/dL (0.7-1.3) Estimated GFR (Cockcroft-Gault) 70.9 BUN/Creatinine Ratio 11 (6-20) Glucose Level 188 mg/dL (70-99) Calcium Level 8.4 mg/dL (8.5-10.1) Total Bilirubin 0.2 mg/dL (0.2-1.0) Aspartate Amino Transf (AST/SGOT) 10 U/L (15-37) Alanine Aminotransferase (ALT/SGPT) 13 U/L (16-63) Alkaline Phosphatase 78 U/L (46-116) Total Protein 6.2 g/dL (6.4-8.2) Albumin 2.9 g/dL (3.4-5.0) Albumin/Globulin Ratio 0.9 (1.0-1.7) Glucose (Fingerstick) 134 mg/dL (70-99) 143 mg/dL (70-99) 143 mg/dL (70-99) Laboratory Tests Test 06/07/19 08:06 06/07/19 11:36 06/07/19 20:15 Glucose (Fingerstick) 134 mg/dL (70-99) 143 mg/dL (70-99) 143 mg/dL (70-99) Assessment Assessment POD# 3 reimplantation of total knee arthroplasty stemmed with fixation of latera l femoral condyle fracture Plan Plan of Care Intraoperative cultures remain pending Patient strongly prefers oral antibiotics for home as he would rather not have a PICC line Plan discussion later with infectious disease on treatment options He has a contract with pain management for oxycodone which is currently controlling his pain THEE GOMEZ MD Jun 08, 2019 07:10
--- NOTE | 2019-06-08 07:59 | SNU/HH DC ---
DISCHARGE WITH HOME HEALTH DISCHARGE INFORMATION: Condition on Discharge: Stable CODE STATUS: Code Status: Full HOME HEALTH: Face to Face: I certify this patient is under my care and that I, or a nurse practitioner or physician's energy assistant working with me, had a face to face encounter that meets the physician face to face encounter requirements with this patient on [06/08/19]. Medical Complications: S/P Joint Replacement Group Home For: Wound Vac RN For Eval/Treatment: Yes Physical Therapy For: Evalulation/Treatment Pt Meets Homebound Status: Limited distance walking POST DISCHARGE ORDERS: Activity Instructions for Disc: Activity as tolerated Weight Bearing Status after Di: As tolerated Bathing Instructions: Shower-keep dressing dry DIET AFTER DISCHARGE: ADA Wound/Incision Care: Ice to area for comfort, Do not change dressing (maintain Prevena dressing call if drainage increasing) TREATMENT/EQUIPMENT ORDERS: Adaptive Equipment Issued: None CERTIFICATION STATEMENT: Certification Statement: Certification Statement: Based on the above finding, I certify that this patient is confined to the home and needs intermittent nursing home care, physical therapy and/or speech therapy, or continues to need occupational therapy.~ This patient is under my care, and I have initiated the establishment of the plan of care.~ This patient will be followed by myself or a community physician who will periodically review the plan of care. Home Meds Reported Medications Lidocaine (Lidocaine PATCH ) 1 Each Adh..patch, 1 EACH TP DAILY for FOR LOCAL PAIN, PATCH REMOVE AFTER 12 HOURS 03/12/19 Lisinopril (LISINOPRIL) 5 Mg Tablet, 1 TAB PO DAILY for HTN, #30 TAB 5 Refills 03/12/19 Oxycodone/Apap 7.5-325 (PERCOCET 7.5-325 MG TABLET ) 1 Each Tablet, 1 TAB PO PRN Q6HRS PRN for PAIN, TAB 0 Refills 03/12/19 Clonazepam (CLONAZEPAM) 1 Mg Tablet, 1 MG PO BID for FOR ANXIETY, TAB 03/12/19 [place] Carbonate (LITHIUM CARBONATE) 300 Mg Tablet, 1 TAB PO BID for BIPOLAR, #60 TAB 1 Refill 08/08/18 Tizanidine Hcl (ZANAFLEX) 4 Mg Capsule, 1 CAP PO TID PRN for MUSCLE SPASTICITY, #90 CAP 08/25/15 Sitagliptin Phos/Metformin Hcl (JANUMET 50-1,000 MG TABLET) 1 Each Tablet, 1 TAB PO BID for diabetes 01/17/15 Doxepin Hcl (DOXEPIN HCL) 50 Mg Capsule, 300 MG PO HS for sleep/anxiety 01/17/15 Discontinued Reported Medications Sitagliptin Phos/Metformin Hcl (JANUMET 50-1,000 MG TABLET) 1 Each Tablet, 1 TAB PO BID for dm, #60 TAB 5 Refills 03/12/19 THEE GOMEZ MD Jun 08, 2019 07:59
[2019-06-08 08:14] LABS: PROTHROMBIN TIME PATIENT 17.6 SEC (11.7-14.0)
[2019-06-08] MEDS: LITHIUM CARBONATE 150 MG CAPSULE. PO SCH (08:46)
[2019-06-08] MEDS: LACTOBACILLUS RHAMNOSUS GG 1 CAPSULE. PO SCH (08:46)
[2019-06-08] MEDS: clonazePAM 0.5 MG TABLET PO SCH (08:46)
[2019-06-08] MEDS: MELOXICAM 7.5 MG TABLET PO SCH (08:47)
[2019-06-08] MEDS: SENNOSIDES/DOCUSATE 8.6/50MG TABLET. PO SCH (08:47)
[2019-06-08] MEDS: MULTIVITAMIN with MINERAL TABLET. PO SCH (08:47)
[2019-06-08] MEDS: LISINOPRIL 5 MG TABLET. PO SCH (08:47)
[2019-06-08] MEDS: LINAGLIPTIN 5 MG TABLET PO SCH (08:47)
[2019-06-08] MEDS: metFORMIN 500 MG TABLET PO SCH (08:47)
[2019-06-08] MEDS: oxyCODONE/APAP 7.5/325 1 TAB TABLET PO PRN (08:48)
[2019-06-08] MEDS: FERROUS SULFATE 325 MG TABLET. PO SCH (08:48)
[2019-06-08] MEDS: LIDOCAINE (700MG/PATCH) PATCH. TD SCH (08:49)
[2019-06-08] MEDS ORDERED: LIDOCAINE (700MG/PATCH) PATCH. TD SCH (09:00)
--- NOTE | 2019-06-08 09:38 | PDOC ---
Infectious Disease Note Subjective: Subjective Pt says feels much better ,eager to go home today postop pain is under control no issues with vac ROS: ROS no f/c/n/v/d/abdo pain Vital Signs: Vital Signs Vital Signs Date Time Temp Pulse Resp B/P (MAP) Pulse Ox O2 Delivery O2 Flow Rate FiO2 06/08/19 08:48 Room Air 06/08/19 08:47 79 154/97 06/08/19 07:00 98.3 16 100 98.3 06/08/19 04:26 8.0 Physical Exam: PHYSICAL EXAM GENERAL: Alert and oriented x 3 male in no acute distress, comfortable, working on his computer, mother at bedside. HEENT: Normocephalic, atraumatic, anicteric, and edentulous. No thrush. No oropharyngeal exudate or erythema. NECK: Supple, no JVD, no lymphadenopathy, no thyromegaly. LUNGS: Clear bilaterally. No wheezing. HEART: S1 and S2. No gallops, murmurs, or rubs. ABDOMEN: Soft, nontender, nondistended, no rebound, no guarding. EXTREMITIES: Left knee with wound VAC in place. Mild swelling. Wound VAC not taken down. Dressing intact. No leakage. No surrounding erythema, no purulence. NEUROLOGIC: Alert and oriented x 3, grossly nonfocal. DERMATOLOGIC: Warm and dry. No generalized rash. PIV site looks okay. PSYCHIATRIC: Cooperative, appropriate mood and affect. Medications: Inpatient Meds: Current Medications Medications (Trade) Dose Ordered Sig/[facility] Start Time Stop Time Status Last Admin Dose Admin Acetaminophen (Tylenol) 1,000 mg Q6H 06/06/19 09:00 06/07/19 23:28 1,000 MG Albumin Human 500 ml @ As Directed STK-MED ONCE 06/05/19 14:12 06/05/19 14:12 DC Bisacodyl (Dulcolax Supp) 10 mg 1X PRN PRN 06/06/19 16:00 06/07/19 15:59 DC Calcium Carbonate/ Glycine (Tums) 500 mg PRN QID PRN 06/05/19 19:45 Clonazepam (KlonoPIN) 1 mg BID 06/06/19 09:00 06/08/19 08:46 1 MG Dexamethasone Sodium Phosphate (Decadron) 4 mg STK-MED ONCE 06/05/19 08:48 06/05/19 08:48 DC Dextrose (Dextrose 50%-Water Syringe) 12.5 gm PRN Q15MIN PRN 06/05/19 19:45 Diphenhydramine HCl (Benadryl) 25 mg PRN Q6HRS PRN 06/05/19 19:45 Ephedrine Sulfate (ePHEDrine PF IN SALINE SYRINGE) 50 mg STK-MED ONCE 06/05/19 14:47 06/05/19 14:47 DC Fentanyl Citrate (Fentanyl 2ml Vial) 50 mcg PRN Q1HR PRN 06/05/19 19:45 Ferrous Sulfate (Feosol) 325 mg BIDWMEALS 06/06/19 08:00 06/08/19 08:48 325 MG Gabapentin (Neurontin) 100 mg Q8HRS 06/06/19 06:00 06/08/19 06:33 100 MG Hydralazine HCl (Apresoline Inj) 20 mg STK-MED ONCE 06/05/19 11:42 06/05/19 11:42 DC Hydromorphone HCl (Dilaudid) 0.5 mg PRN Q10MIN PRN 06/05/19 07:00 06/06/19 06:59 DC Info (Anti-Coagulation Monitoring By Pharmacy) 1 each PRN DAILY PRN 06/06/19 16:00 06/06/19 14:48 DC Insulin Human Lispro (HumaLOG VIAL for OP,RR ONLY) 100 unit STK-MED ONCE 06/05/19 09:00 06/07/19 08:19 DC Ketamine HCl (Ketamine) 50 mg STK-MED ONCE 06/05/19 11:30 06/05/19 11:30 DC Ketorolac Tromethamine (Toradol 30mg Vial) 30 mg STK-MED ONCE 06/05/19 11:41 06/05/19 11:42 DC Lactobacillus Rhamnosus (Culturelle) 1 cap BID 06/07/19 21:00 06/08/19 08:46 1 CAP Lidocaine (Lidoderm) 2 patch DAILY 06/07/19 14:00 06/07/19 14:12 2 PATCH Lidocaine HCl (Lidocaine Pf 2% Vial) 5 ml STK-MED ONCE 06/05/19 08:48 06/05/19 08:48 DC Linagliptin (Tradjenta) 5 mg DAILY08 06/06/19 08:00 06/08/19 08:47 5 MG Lisinopril (Prinivil) 5 mg DAILY 06/06/19 09:00 06/08/19 08:47 5 MG [place] Carbonate ([place] Carbonate) 300 mg BID 06/06/19 09:00 06/08/19 08:46 300 MG Magnesium Hydroxide (Milk Of Magnesia) 2,400 mg 1X PRN PRN 06/06/19 06:00 06/07/19 05:59 DC Meloxicam (Mobic) 15 mg DAILY 06/06/19 09:00 06/08/19 08:47 15 MG Meropenem 1 gm/ Sodium Chloride 100 ml @ 200 mls/hr Q8HRS 06/06/19 22:00 06/08/19 06:35 200 MLS/HR Metformin HCl (Glucophage) 1,000 mg BIDWMEALS 06/06/19 08:00 06/08/19 08:47 1,000 MG Miscellaneous (Lidoderm Patch Removal) 1 ea QHS 06/08/19 21:00 Morphine Sulfate (Morphine Sulfate) 4 mg PRN Q1HR PRN 06/05/19 19:45 06/08/19 00:12 4 MG Morphine Sulfate 5 mg/Ketorolac Tromethamine 30 mg/Ropivacaine 60 ml/Epinephrine HCl 0.5 mg/Sodium Chloride 100 ml @ 100 mls/hr 1X ONCE 06/05/19 06:00 06/05/19 06:59 DC 06/05/19 11:32 Multivitamins (Thera M Plus) 1 tab DAILY 06/06/19 09:00 06/08/19 08:47 1 TAB Non-Formulary Medication (Doxepin Hcl ) 300 mg HS 06/06/19 01:30 06/07/19 23:29 300 MG Non-Formulary Medication (Sitagliptin Phos/Metformin Hcl (Janumet 50-1,000 Mg Tablet)) 1 tab BID 06/05/19 21:00 UNV Ondansetron HCl (Zofran Odt) 4 mg PRN Q6HRS PRN 06/06/19 12:00 Ondansetron HCl (Zofran) 4 mg PRN Q6HRS PRN 06/06/19 12:00 Oxycodone HCl (Roxicodone) 10 mg PRN Q4HRS PRN 06/05/19 19:45 06/08/19 06:34 10 MG Oxycodone/ Acetaminophen (Percocet 7.5/ 325) 1 tab PRN Q6HRS PRN 06/05/19 19:45 06/08/19 08:48 1 TAB Prochlorperazine Edisylate (Compazine) 10 mg STK-MED ONCE 06/05/19 18:28 06/05/19 18:28 DC Prochlorperazine Maleate (Compazine) 10 mg PRN Q4HRS PRN 06/05/19 19:45 Propofol 20 ml @ As Directed STK-MED ONCE 06/05/19 11:43 06/05/19 11:43 DC Ringer's Solution 1,000 ml @ 30 mls/hr Q24H 06/05/19 07:00 06/05/19 18:59 DC 06/05/19 08:49 30 MLS/HR Senna/Docusate Sodium (Senna Plus) 1 tab DAILY 06/06/19 09:00 06/08/19 08:47 1 TAB Sevoflurane (Ultane) 90 ml STK-MED ONCE 06/05/19 11:47 06/05/19 11:47 DC Sodium Chloride (Normal Saline Flush) 10 ml QSHIFT PRN 06/05/19 19:45 Tizanidine HCl (Zanaflex) 4 mg PRN TID PRN 06/05/19 19:45 06/06/19 05:15 4 MG Tramadol HCl (Ultram) 50 mg Q6H 06/06/19 06:00 06/08/19 06:33 50 MG Tranexamic Acid 1000 mg/Sodium Chloride 60 ml @ 60 mls/hr 1X PERIOP ONCE 06/05/19 08:00 06/05/19 08:59 DC 06/05/19 17:12 60 MLS/HR Vancomycin HCl (Vanco Per Pharmacy) 1 each PRN DAILY PRN 06/06/19 17:00 06/07/19 09:36 1 EACH Vancomycin HCl (Vancomycin Trough Level) 1 each 1X ONCE 06/09/19 22:30 06/09/19 22:31 Vancomycin HCl (Vancomycin) 1 gm STK-MED ONCE 06/05/19 14:03 2/25/20 14:03 DC 06/05/19 14:09 1 GM Vancomycin HCl 1.5 gm/Sodium Chloride 500 ml @ 250 mls/hr Q24H 06/06/19 17:30 06/07/19 18:01 250 MLS/HR Vancomycin HCl 1 gm/Sodium Chloride 250 ml @ 250 mls/hr 1X ONCE 06/05/19 01:00 06/06/19 01:11 DC 06/06/19 01:22 250 MLS/HR Warfarin Sodium (Coumadin Per Pharmacy) 1 each PRN DAILY PRN 06/05/19 19:45 06/07/19 09:40 1 EACH Warfarin Sodium (Coumadin) 3 mg 1X WARF ONCE 06/07/19 16:00 06/07/19 16:01 DC 06/07/19 16:20 3 MG Zolpidem Tartrate (Ambien) 5 mg PRN QHS PRN 06/05/19 19:45 Labs: Lab Laboratory Tests Test 06/07/19 11:36 06/07/19 20:15 06/08/19 07:35 Glucose (Fingerstick) 143 mg/dL (70-99) 143 mg/dL (70-99) Prothrombin Time 17.6 SEC (11.7-14.0) Prothromb Time International Ratio 1.5 (0.8-1.1) Objective: Assessment: Lt aurora revision arthtoplasty 06/05 cults negative Status post 06/05/2019 removal of antibiotic spacer. Operative reduction and internal fixation of lateral epicondyle fracture and insertion of stemmed tibial and femoral components with reimplantation resurfacing patellar component, cultures negative so far. - Left knee prosthetic joint infection. Synovial cultures positive for methicillin-resistant Staphylococcus epidermidis on 03/07/2019, tetracycline resistant, swab cultures on 03/11/2019 grew Enterobacter faecalis, ampicillin sensitive. Left prosthetic joint infection status post explant on 03/13/2019, The patient was treated for 6 weeks of IV vancomycin and ampicillin. treated with IV antibiotics. Last dose was on 04/25/2019. Wound dehiscence with wound VAC management up until approximately the end of 04/2019 through wound team with excoriation due to allergic component from wound dressing resolved prior to admission. History of fall with dislocation of the patellar component of left knee arthroplasty from the posterior aspect of patella on 02/11/2019 Left total knee arthroplasty in 01/2018. Status post 08/22/2018, incision and drainage on 09/19/2018 with polyethylene exchange. Cultures from 09/2018 remain negative including acid-fast bacilli, fungal. Diabetes. Bipolar disorder. Anemia. Obstructive sleep apnea. Hypertension. Osteoarthritis. Plan: Plan of Care DC IV Vanc and merrem d/w Dr Avila ok to dc on augmentin 875mgpo bid and doxycycline 100 mg po bid empiriically for now script in chart s/e of antibiotic discussed wound care and activity per ortho f/u intraop cultures rationale for above d/w pt and mother f/u ID Clinic in 2 weeks d/w DR Avila D/W Mother D/W Nursing staff KYLAH DOUGLASS MD Jun 08, 2019 09:38
[2019-06-08 10:11] LABS: HEMATOCRIT 23.8 % (39.0-53.0); HEMOGLOBIN 7.6 g/dL (13.0-17.5)
[2019-06-08 11:00] VITALS: BP 164/93
--- NOTE | 2019-06-08 11:36 | NUR ---
SW following. Discussed with RN, wound vac, IV abx, cultures pending. Apparently pt does not want to do IV abx upon discharge. [facility] can accept pt back for home health at discharge. SW will continue to follow for abx plan.
--- NOTE | 2019-06-08 15:20 | NUR ---
Wound Care Pt seen for wound vac removal and Prevena placement, per Dr. Avila's order. Vac dressing removed, L knee incision line well approximated, scant serosanguinous drainage present, incision cleaned with chloroprep and dried. Skin prep applied to periwound, Prevena placed over anterior knee incision, vac with strong seal, left lateral incision line dressed with Acticoat, gauze and tegaderm. Instructions to leave dressings in place until next Tuesday and follow up with Dr. Avila, as ordered, and to call Ortho office with any Prevena problems, pt and mother v/u. Hospital consignmt vac taken to [facility] for cleaning.
--- NOTE | 2019-06-08 15:37 | NUR ---
Pt. discharged to home with Rx and [employer] in tact, pt and family verbalized understanding of discharge instructions.
[2019-06-08] MEDS ORDERED: WARFARIN 4 MG TABLET. PO ONE (16:00)
[2019-06-08] MEDS ORDERED: PATCH REMOVAL. MC SCH (21:00)
== END 2019-06-08 15:40 | disposition home health service (06) | DRG 467 ==
LOC: SURG 07:59 → 4 NORTH 22:14
PROVIDERS: ADMIT Orthopaedic Surgery; ATTEND Orthopaedic Surgery
PROC: 0SPD0JZ Removal of Synthetic Substitute from Left Knee Joint, Open Approach (ICD-10-PCS; 2019-06-05)
PROC: 0SRD0JA Replacement of Left Knee Joint with Synthetic Substitute, Uncemented, Open Approach (ICD-10-PCS; 2019-06-05)
PROC: 0SPD08Z Removal of Spacer from Left Knee Joint, Open Approach (ICD-10-PCS; principal; 2019-06-05 10:00)
DX: T84.54XA Infection and inflammatory reaction due to internal left knee prosthesis, initial encounter (principal); T81.31XA Disruption of external operation (surgical) wound, not elsewhere classified, initial encounter; D64.9 Anemia, unspecified; E03.9 Hypothyroidism, unspecified; E11.9 Type 2 diabetes mellitus without complications; F17.290 Nicotine dependence, other tobacco product, uncomplicated; F31.9 Bipolar disorder, unspecified; G47.33 Obstructive sleep apnea (adult) (pediatric); I10 Essential (primary) hypertension; M19.90 Unspecified osteoarthritis, unspecified site; Y83.8 Other surgical procedures as the cause of abnormal reaction of the patient, or of later complication, without mention of misadventure at the time of the procedure; Y92.89 Other specified places as the place of occurrence of the external cause
CPT/HCPCS: 36415; 73560; 76000; 80053; 82962; 85007; 85014; 85018; 85025; 85610; 85730; 86850; 86900; 86901; 87071; 87075; 87116; C1713; C1894; J0171; J0360; J0780; J1100; J1815; J1885; J2001; J2185; J2270; J2405; J2704; J2795; J3010; J3370; J7030; J7040; J7050; P9045; 97110; 97116; C1769; G0378; Q0162

== ENCOUNTER 2019-07-12 07:46 | Day surgery (SDC) | payer BC, MEDICARE ==
[~2019-07-12 07:46] MED LIST changes: -HEPARIN PF 500 UNIT/5 ML DISP.SYRIN. IVP ONE; -LIDOCAINE 1%/EPI 1:100,000 20 ML VIAL. ONE; -VANC750F IV
[2019-07-12] MEDS ORDERED: PROPOFOL 20 ML IV ONE ×2 (07:50→11:41)
[2019-07-12] MEDS ORDERED: LIDOCAINE 2% PF 5 ML VIAL. ONE (07:50)
[2019-07-12] MEDS ORDERED: fentaNYL PF VIAL 100 MCG/2 ML VIAL ONE ×2 (07:50→11:44)
[2019-07-12] MEDS ORDERED: INSULIN LISPRO 100 UNIT/ML 3ML VIAL for OP,RR ONLY. SQ PRN (08:30)
[2019-07-12] MEDS ORDERED: IV RINGERS,LACTATED 1000ML 1,000 ML IV SCH (08:45)
[2019-07-12] MEDS ORDERED: VANCOMYCIN 1GM IVPB FOR OMNI 250 ML IV PRN (09:00)
[2019-07-12] MEDS ORDERED: ONDANSETRON PF 4 MG/2 ML VIAL. ONE (09:15)
[2019-07-12] MEDS ORDERED: SEVOFLURANE 31 TO 60 MINUTES. IH ONE (09:15)
[2019-07-12] MEDS ORDERED: DEXAMETHASONE SOD PHOS 4 MG/ML VIAL ONE (09:15)
--- NOTE | 2019-07-12 12:49 | NUR ---
SS following for discharge planning. SS received script for IV antibiotics for home infusions. SS spoke with Dr. Blake and Elizabeth Reyes, . Elizabeth requesting home infusions with [facility], ; fax [phone]. SS phoned and faxed script and referral to [facility]. SS will continue to follow.
[2019-07-12 14:06] VITALS: BP 156/100
[2019-07-12] MEDS ORDERED: oxyCODONE/APAP 7.5/325 1 TAB TABLET PO ONE ×2 (14:30)
[2019-07-12] MEDS ORDERED: VANC750F IV (14:34)
--- NOTE | 2019-07-12 14:55 | DISCH ---
DISCHARGE INSTRUCTIONS Condition on Discharge Condition on Discharge: Stable Activity After Discharge Activity Instructions for Disc: Activity as tolerated Bathing Instructions: Shower-keep dressing dry Lifting Instructions after Dis: No heavy lifting Exercise Instruction after Dis: Exercise per therapy Driving Instructions after Dis: Do not drive Weight Bearing Status after Di: As tolerated Diet after Discharge Diet after Discharge: Diabetic No Calorie Level Diet Texture: Regular Wound Incision Care Wound/Incision Care: Ice to area for comfort, Do not change dressing (keep wound VAC dressing intact for 1 week change canisters if necessary) Wound Care Equipment: Wound vac Contacting the [facility]Bear after DC Call your doctor for: Concerns you may have Follow-Up Follow up with: Dr. Avila 10 days Treatment/Equipment after DC Adaptive Equipment Issued: None THEE AVILA MD Jul 12, 2019 14:55
--- NOTE | 2019-07-12 15:28 | PDOC4 ---
Operative Note Operative Note Date of surgery: 07/12/2019 Preoperative diagnosis: Left knee wound drainage with history reimplantation total knee arthroplasty Postoperative diagnosis: Same with small superior defect in joint capsule communicating with wound Operative procedure: Irrigation debridement of left knee with polyethylene spacer exchange Surgeon: Margarita Assist: Jay Ortiz mobile sales assistant Anesthesia: Gen. Estimated blood loss: 300 mL Complications: None Cultures: Intraoperative deep tissue cultures sent for aerobic anaerobic Gram stain and acid-fast and fungal cultures Operative indications: Chang has a complicated history but most recently underwent reimplantation of a total knee arthroplasty following removal of an antibiotic spacer and reported relief of his pain and good stability getting around well he's never been febrile but has been developing increasing drainage initially treated with a wound VAC postoperatively and then discontinued and continue follow at the wound care clinic and based on his ongoing drainage I had undergone a aspiration of his knee joint which showed a white cell count of slightly in excess of 2000 and no organisms identified however the aspirate was positive for alpha defensin. Based on these results I discussed with him my recommendation for irrigation debridement and a planned polyethylene exchange due to the presence of this 1 marker for possible infection and the severe consequences possible with deep infection. He reluctantly agreed to proceed as an outpatient and insisted on a tunnel catheter versus a PICC line and reported significant problems with previous antibiotics. I talked to him about the severe consequences of infection and the recommendation of exploration of the knee with cultures likely longer term intravenous antibiotics and ongoing wound care. All his questions were answered he wishes to proceed with surgical evaluation and treatment. Operative text: Patient was identified procedure verified patient placed in the supine position on the operating table. After adequate amounts of general anesthesia were administered the left lower extremity was prepped and draped in standard sterile fashion with a thigh tourniquet and after timeout was performed patient procedure identified and verified a midline incision was made from the distal open wound throughout the extent of his previously superiorly healed incision. There was a small opening in the quadriceps tendon medially that did communicate with the joint. This was connected with a medial parapatellar approach and deep tissue cultures were obtained at the edge of the implant and the polyethylene was removed and very thorough debridement of the joint synovium and bursal tissues and bleeding points controlled by electrocautery. Thorough irrigation was carried out with bactisure for a total of 1 L and a total of 5 L of additional normal saline solution. A 21 mm thickness polyethylene component was replaced corresponding to the size 3 tibial component and resulted in excellent stability in both flexion and extension with full range of motion and the retinaculum was repaired with interrupted #1 PDS suture and a total of 2 running #1 PDS strata fix sutures that were started from proximally and distally in the closure. Subcutaneous closure with buried 2-0 PDS suture and skin closure with a combination of nylon suture in a tension relieving fashion over his initial wound and mattress fashion to daria skin edges and superiorly where there was little tissue tension closed with yasmeen. A Telfa skin barrier layer was then placed with a wound VAC and patient was returned to recovery room in stable condition having tolerated the procedure well and at his request sent to interventional radiology for a tunnel catheter placement to accommodate his expected intravenous antibiotics THEE GOMEZ MD Jul 12, 2019 15:28
--- NOTE | 2019-07-20 21:14 | HP ---
ADMIT DATE: 07/12/2019 HISTORY OF PRESENT ILLNESS: The patient underwent reimplantation of a left total knee arthroplasty after antibiotic spacer removal and was continued on some postoperative antibiotics. Due to the complexity of this procedure, I had requested a wound VAC immediately postoperatively due to some distal drainage. This was not initially implemented by the wound care clinic, but on his followup on 06/18/2019, they did arrange for it to be put on. He developed some separation of the skin and came in about a week ago to the clinic with packing after removal of wound VAC and continued persistent drainage since that time, culminating in a wound care visit today where he continued to have drainage that appeared to be superiorly in his bursa area, which was able to be probed and that did not seem to probe into the joint. However, I did do a Synovasure aspiration on the knee joint and it subsequently did show a positive alpha defensin although low white blood cell count right about 1999. However, just given his concern and ongoing drainage, I elected to bring him in today for an irrigation and debridement of his left knee. PAST MEDICAL HISTORY: Hypertension, depression, bipolar disease, prediabetes, obesity. PAST SURGICAL HISTORY: Partial right knee replacement bilaterally, revision to a total knee arthroplasty and subsequent explantation with reimplantation noted above. FAMILY HISTORY: Arthritis in his mother, and cancer, heart disease, hypertension, bipolar disorder in his dad, some mental illness in an uncle. Family history of lung cancer as well. SOCIAL HISTORY: He is a former smoker and quit a few months ago. No alcohol or drug use. He is disabled. He is and has good family support. MEDICATIONS: List is reviewed. ALLERGIES: He has no known drug allergies. REVIEW OF SYSTEMS: Significant for the ongoing knee drainage. His knee, otherwise, feels good. He is getting up and around well. Denies any fever, chills or significant radiating pain, focal weakness, numbness, tingling. PHYSICAL EXAMINATION: VITAL SIGNS: Per admission sheet. HEENT: Atraumatic, normocephalic. HEART: Regular rate and rhythm. LUNGS: Clear to auscultation bilaterally. ABDOMEN: Benign. EXTREMITIES: Examination of the left knee reveals about a 1 x 1 cm wide x 2.5 cm area long area of the tunnels and to the prepatellar bursa. No obvious communication with the knee joint. However, he continues to have significant drainage and I cannot really rule out some communication somewhere in the capsular area. He has excellent patellar tracking, excellent stability, ligament balance. Distal pulses, sensation are intact. Normal examination of the contralateral knee, bilateral hips and ankles. LABORATORY DATA: Shows a white blood cell count just slightly excess of 2000, positive alpha defensin test and previous labs showed sedimentation rate elevated from his previous measurements. IMPRESSION: Persistent left knee drainage following reimplantation procedure with laboratory testing as above. TREATMENT PLAN: I had gone over with he and his mom the concern for the ongoing drainage and my recommendation for exploration, washout, deep cultures and likely polyethylene exchange in the knee due to the possibility of developing infection if he has a drainage path out. There is certainly a path in as well. He does agree to proceed and verbalizes understanding of the rationale and informed consent was obtained. We will therefore plan on surgical treatment as above today. THEE GOMEZ MD DR: KADE/ritesh JOB#: [id number] / [id number]
== END 2019-07-12 15:14 | disposition home or self-care (01) ==
LOC: SURG 07:46
PROVIDERS: ATTEND Orthopaedic Surgery
DX: T84.54XA Infection and inflammatory reaction due to internal left knee prosthesis, initial encounter (principal); E11.9 Type 2 diabetes mellitus without complications; I10 Essential (primary) hypertension; E66.9 Obesity, unspecified; F17.210 Nicotine dependence, cigarettes, uncomplicated; Z79.84 Long term (current) use of oral hypoglycemic drugs; Z79.2 Long term (current) use of antibiotics; Z79.899 Other long term (current) drug therapy; Z68.35 Body mass index [BMI] 35.0-35.9, adult; Y83.8 Other surgical procedures as the cause of abnormal reaction of the patient, or of later complication, without mention of misadventure at the time of the procedure; Y92.89 Other specified places as the place of occurrence of the external cause; Z91.041 Radiographic dye allergy status
CPT/HCPCS: 27486; 82962; 87071; 87075; 87102; 87116; A7015; J1100; J2405; J2704; J3010; J3370; J7030; J7120; A4461; C1769

== ENCOUNTER → 2019-07-12 | Outpatient (CLI) | payer BC, MEDICARE ==
[~2019-07-12] MED LIST changes: -ACETAMINOPHEN 500 MG TABLET PO PRN; -GABAPENTIN 300 MG CAPSULE. PO PRN; +HEPARIN PF 500 UNIT/5 ML DISP.SYRIN. IVP ONE; -HYDROmorphone 2 MG/ML VIAL IV PRN; -IV RINGERS,LACTATED 1000ML 1,000 ML IV SCH; +LIDOCAINE 1%/EPI 1:100,000 20 ML VIAL. ONE; -MELOXICAM 7.5 MG TABLET PO PRN; -MORPHINE SULFATE 2 MG/ML VIAL. IV PRN; -MORPHINE SULFATE 5 MG, KETOROLAC 30MG VIAL 30 MG, ROPIVacaine 0.5% PF 60 ML, EPINEPHrin... INT ART ONE; -ONDANSETRON PF 4 MG/2 ML VIAL. IV PRN; -PROCHLORPERAZINE 10 MG/2 ML VIAL. IV PRN; -TRANEXAMIC ACID 1,000 MG in IV NS 50ML -- 1ST BAG INJ ONE; +VANC750F IV; -VANCOMYCIN 1 GM in IV NORMAL SALINE 250ML 250 ML IV ONE; -VANCOMYCIN 1GM IVPB FOR OMNI 250 ML IV PRN; -fentaNYL PF VIAL 100 MCG/2 ML VIAL IV PRN
[2019-07-12 08:23] VITALS: BP 121/73
--- NOTE | 2019-07-12 12:43 | PDOC ---
Infectious Disease Note Objective Assessment Left TKA suspected infection, had mechanical defect in fascia s/p I and D 4/ Plan Plan of Care dawna and reid d/w pt in detail d/w mother in detail d/w Dr Avila f/u in 2 wks RUTH DOUGLASS MD Jul 12, 2019 12:43
[2019-07-12] MEDS: LIDOCAINE 1%/EPI 1:100,000 20 ML VIAL. INJ ONE (13:15)
[2019-07-12] MEDS: HEPARIN PF 500 UNIT/5 ML DISP.SYRIN. IVP PRN (13:25)
--- NOTE | 2019-07-12 13:50 | CONS ---
DATE OF CONSULTATION: 07/12/2019 REQUESTING PHYSICIAN: Dr. Avila. REASON FOR CONSULTATION: Antibiotic management for suspected total knee arthroplasty infection. HISTORY OF PRESENT ILLNESS: This is a 49-year-old gentleman who is very well known to us. The patient was admitted by Dr. Avila for surgery after having persistent drainage from the incision of the left total knee and he also outpatient on putting a needle into the joint and cell count was done, which was 625 nucleated cells, 22,000 RBC, but he sent alpha-defensin test, which was positive hence for some reason, I do not know whether he had done another cell count, but he told me verbally that it was 2100 WBC in the knee. With that cell count and alpha-defensin positive and persistent drainage, he decided to take the patient into the surgery today. He found in the surgery, there was facial defect, small hole or opening that was connecting into the joint. There was no purulence seen. There was no other abnormality detected. Revision was done with I and D and new polyethylene exchange. Right now, I am seeing him in the recovery room. He denies any nausea, vomiting, diarrhea, chest pain, shortness of breath, abdominal pain, urinary symptoms or bowel symptoms. The patient had been on oral antibiotics. Now, we are going to convert into IV for him to be aggressively treated with vancomycin and Zosyn. PAST MEDICAL HISTORY: Positive for diabetes mellitus, hypertension, hypothyroidism, osteoarthritis, bipolar disorder, obstructive sleep apnea, has had tonsillectomy, adenoidectomy. On 08/22/2018, the patient had revision of the tibial component of the left total knee arthroplasty for loose tibial component. Then on 09/19/2018, he had irrigation and debridement and polyethylene exchange of the left knee done. Then on 03/13/2019, patient had removal of the total knee arthroplasty done with debridement and antibiotic spacer was placed on 03/13/2019 of the left knee. On 06/05/2019, the patient had removal of the antibiotic spacer, operative reduction and internal fixation of the lateral epicondyle fracture and insertion of the stem tibial and femoral component with reimplantation resurfacing patellar component was done and now I and D and repair of the facial defect was done with poly exchange on 07/12/2019. SOCIAL HISTORY: Negative for smoking, alcohol, illicit drug use. ALLERGIES: The patient had difficulty tolerating daptomycin. He was able to do much better with vancomycin and he refuses to take daptomycin. REVIEW OF SYSTEMS: As per HPI, all other systems reviewed are negative. PHYSICAL EXAMINATION: GENERAL: Alert, oriented gentleman, not in distress. VITAL SIGNS: Stable, afebrile. HEENT: NAD. NECK: Supple, no JVP, no lymphadenopathy. LUNGS: Clear. HEART: S1, S2 regular. ABDOMEN: Benign. EXTREMITIES: No edema, cyanosis. SKIN: Unremarkable. Post-surgical dressing on the left knee, it was not opened. NEUROLOGIC: The patient is alert, awake and appropriate. No focal neurologic deficit. LABORATORY DATA: White count on 06/29/2019 was 5.6, hemoglobin 9.0, platelets are normal. Sed rate on 06/29/2019 was 42, BUN and creatinine has been normal. On 07/10/2019, synovial fluid showed 625 nucleated cells and 22,000 RBC and the culture was done on 07/10/[address] Avila has been so far negative. The patient's culture from 06/05/2019 had been negative. The patient's culture from 03/13/2019 had been negative. The patient's superficial culture from 03/11/2019 had Enterococcus and the patient's culture from 09/19/2018 had been negative. The patient had ultrasound of the knee showed medial superficial complex fluid collection measuring up to 4.4 cm done on 06/29/2019 and the knee x-ray was in May, which was post-revision total knee arthroplasty. IMPRESSION: 1. Left total knee arthroplasty. Mechanical failure with facial defect and persistent leakage, revision I and D done and polyethylene exchange done, although suspected infection with alpha-defensin positive cultures remain so far negative. It was decided by Dr. Avila with me that we will treat aggressively for 6 weeks with broad coverage. 2. Diabetes. 3. Hypertension. 4. Hypothyroidism. 5. Osteoarthritis. 6. Bipolar disorder. 7. Obstructive sleep apnea. RECOMMENDATIONS: Recommend vancomycin and Zosyn since he cannot tolerate daptomycin. A very detailed discussion was done with the patient's mother who is a retired RN for very close monitoring with vancomycin toxicity with any change in his fluid balance can cause renal failure, which was clearly discussed. He refuses to take daptomycin hence do not have a choice but to use vancomycin. She is going to closely monitor the lab work and his daily intake and output. I am going to initially do twice a week vancomycin trough and once stable then we will change to once a week. Rest of the lab would include CBC and chemistry, which will be once a week. Supportive care. We will follow the cultures and we will see him in 2 weeks in the office. Again very detailed discussion done with the patient and the patient's mother including since he has had multiple surgeries on the knee, encouraged him to have a second opinion also they should be welcomed to obtain on Infectious Disease as well as orthopedic surgery. Because with multiple surgeries the bad outcome like amputation is a possibility that again was clearly discussed with them. Thank you very much, Dr. Avila, for giving me the opportunity to participate in this patient's care. RUTH DOUGLASS MD DR: LEAH/ritesh JOB#: [id number] / [id number]
--- NOTE | 2019-07-12 14:56 | RAD ---
07/12/2019 Procedure: Ultrasound and fluoroscopically guided placement of tunnel central venous catheter. 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 Discussion of the risks included, but was not limited to, those that are most frequent and those that are rare but possibly severe or life-threatening, as well as the possibility of unforeseen complications. Sterility: All elements of maximal sterile barrier technique including the use of a cap, mask, sterile gown, sterile gloves, large sterile sheet, appropriate hand hygiene, and 2% chlorhexidine for cutaneous antisepsis (or acceptable alternative antiseptic per current guidelines) were followed for this procedure. Technique and Findings: Following informed consent, the patient was prepped and draped in the usual sterile fashion. Ultrasound interrogation of the right neck revealed patency and compressibility of the right internal jugular vein. A 21-gauge micropuncture was then used to gain access to this vein under ultrasound guidance. A hard copy ultrasound image was recorded. The needle was exchanged over a wire for a sheath. A small incision was made several centimeters inferior to the right clavicle. A power line was trimmed to length, advanced from the small skin incision to the venotomy site, and then advanced through a peel-away sheath to the level of the cavoatrial junction. Catheter was found to flush and aspirate normally. Catheter was secured in place with 2-0 Prolene suture and a sterile dressing was applied. Catheter was packed with heparin per protocol. The neck dermatotomy was closed with Dermabond. No immediate complications were identified. Impression: Successful ultrasound and fluoroscopically guided placement of a right internal jugular tunneled central venous catheter
== END | disposition home or self-care (01) ==
LOC: INTRAD 09:55
PROVIDERS: ATTEND Orthopaedic Surgery
DX: Z45.2 Encounter for adjustment and management of vascular access device (principal); Z91.041 Radiographic dye allergy status
CPT/HCPCS: 36558; 76937; 77001; C1751; C1892; J1642; J3490

== ENCOUNTER → 2019-07-19 | Outpatient (CLI) | payer BC, MEDICARE ==
[2019-07-12 08:23] VITALS: BP 121/73
[~2019-07-19] MED LIST changes: +VANC750F IV
[2019-07-19 09:58] LABS: VANC TR 7.7 mcg/mL (10.0-20.0)
== END ==
LOC: LAB 09:30
PROVIDERS: ATTEND Internal Medicine Infectious Disease
DX: Z51.81 Encounter for therapeutic drug level monitoring (principal); M01.X62 Direct infection of left knee in infectious and parasitic diseases classified elsewhere
CPT/HCPCS: 36415; 80202

== ENCOUNTER → 2019-07-23 | Outpatient (CLI) | payer BC, MEDICARE ==
[~2019-07-23] VITALS: Ht 170.2 cm; Wt 108.9 kg
[~2019-07-23] MED LIST changes: +[UNRECOGNIZED DRUG - CODE] IV
[2019-07-23 14:42] VITALS: BP 132/65
--- NOTE | 2019-07-23 14:55 | PDOC ---
Infectious Disease Note Subjective Subjective Seen in outpatient at [facility] F/C/S/N/V/D/SOA/rash Has chronic back pain Leg has a dull ache and occ pain to 5 or 7 depending on activity Has been draining bloody fluid over the weekend into vac. Canister was changed and has slowed considerable Appetite ok He does not feel ill ROS ROS o/w neg Physical Exam PHYSICAL EXAM GENERAL: Alert and oriented x 3 male in no acute distress, comfortable, working on his computer, mother at bedside. HEENT: Normocephalic, atraumatic, anicteric NECK: Supple, no JVD, no lymphadenopathy, no thyromegaly. LUNGS: Clear bilaterally. No wheezing. HEART: S1 and S2. No gallops, murmurs, or rubs. ABDOMEN: Soft, nontender, nondistended, no rebound, no guarding. mild obese EXTREMITIES: Left knee with wound VAC in place. Mild swelling. Wound VAC not taken down. Dressing intact. No leakage. No surrounding erythema, NEUROLOGIC: Alert and oriented x 3, grossly nonfocal. DERMATOLOGIC: Warm and dry. No generalized rash. PIV site looks okay. PSYCHIATRIC: Cooperative, appropriate mood and affect. PICC to Right chest is clean Labs Lab Laboratory Tests Test 07/23/19 13:00 Hemoglobin 6.3 g/dL (13.0-17.5) Vanc 11.2. Cr 1 Glucose 192 LFTs - ok WBC 4.9/ plat 398 Sed rat 86 Objective Assessment Left TKA suspected infection, had mechanical defect in fascia s/p I and D 07/11 - cults neg report Invosure was + Anemia - likely sec to draining into vac - Currently with min fluid Lt aurora revision arthtoplasty 06/05 cults negative Status post 06/05/2019 removal of antibiotic spacer. Operative reduction and internal fixation of lateral epicondyle fracture and insertion of stemmed tibial and femoral components with reimplantation resurfacing patellar component, cultures negative so far. - Left knee prosthetic joint infection. Synovial cultures positive for methicillin-resistant Staphylococcus epidermidis on 03/07/2019, tetracycline resistant, swab cultures on 03/11/2019 grew Enterobacter faecalis, ampicillin sensitive. Left prosthetic joint infection status post explant on 03/13/2019, The patient was treated for 6 weeks of IV vancomycin and ampicillin. treated with IV antibiotics. Last dose was on 04/25/2019. Wound dehiscence with wound VAC management up until approximately the end of 04/2019 through wound team with excoriation due to allergic component from wound dressing resolved prior to admission. History of fall with dislocation of the patellar component of left knee arthroplasty from the posterior aspect of patella on 02/11/2019 Left total knee arthroplasty in 01/2018. Status post 08/22/2018, incision and drainage on 09/19/2018 with polyethylene exchange. Cultures from 09/2018 remain negative including acid-fast bacilli, fungal. Diabetes. Bipolar disorder. Anemia. Obstructive sleep apnea. Hypertension. Osteoarthritis. Plan Plan of Care Transtuse 1 unit PRBCs today Cont Vanc and Zosyn Repeat H/H 07/24 F/u with Dr. Blake 07/25 D/w mother VELIA NATH MD Jul 23, 2019 14:55
[2019-07-23 16:05] VITALS: BP 145/82
[2019-07-23 17:05] VITALS: BP 159/88
[2019-07-23 17:45] VITALS: BP 165/93
== END | disposition home or self-care (01) ==
LOC: LAB 12:49
PROVIDERS: ATTEND Internal Medicine Infectious Disease
DX: D64.9 Anemia, unspecified (principal); G47.39 Other sleep apnea; I10 Essential (primary) hypertension; M19.90 Unspecified osteoarthritis, unspecified site; F31.9 Bipolar disorder, unspecified; Z98.890 Other specified postprocedural states; Z79.899 Other long term (current) drug therapy; Z79.2 Long term (current) use of antibiotics; Z91.041 Radiographic dye allergy status; Z88.8 Allergy status to other drugs, medicaments and biological substances
CPT/HCPCS: 36415; 36430; 85018; 86850; 86900; 86901; 86920; P9016

== ENCOUNTER 2019-07-27 08:12 | Inpatient (IN) | payer BC, MEDICARE ==
[~2019-07-27] VITALS: Ht 170.2 cm; Wt 117.0 kg
[2019-07-27] MEDS ORDERED: ONDANSETRON PF 4 MG/2 ML VIAL. IVP ONE (09:15)
[2019-07-27 09:27] LABS: BASO % 1 % (0-3); EOS % 0 % (0-3); HEMATOCRIT 29.1 % (39.0-53.0); HEMOGLOBIN 9.1 g/dL (13.0-17.5); LYMPH % 16 % (24-48); MEAN CORPUSCULAR HEMOGLOBIN 23 pg (25-35); MEAN CORPUSCULAR HGB CONC 31 g/dL (31-37); MEAN CORPUSCULAR VOLUME 74 fL (79-100); MONO # 0.5 x10^3/uL (0.0-1.1); MONO % 8 % (0-9); NEUT # 4.5 x10^3/uL (1.8-7.7); NEUT % 75 % (31-73); PLATELET COUNT 439 x10^3/uL (140-400); RED BLOOD COUNT 3.92 x10^6/uL (4.30-5.70); RED CELL DISTRIBUTION WIDTH 18.1 % (11.5-14.5)
[2019-07-27 09:43] LABS: ALBUMIN/GLOBULIN RATIO 0.7 (1.0-1.7); CALCIUM 9.2 mg/dL (8.5-10.1); CREATININE 1.1 mg/dL (0.7-1.3); GFR 70.9; TOTAL BILIRUBIN 0.8 mg/dL (0.2-1.0); TOTAL PROTEIN 7.6 g/dL (6.4-8.2)
[2019-07-27 09:54] LABS: POTASSIUM 2.5 mmol/L (3.5-5.1)
[2019-07-27] MEDS ORDERED: POTASSIUM CHLORIDE 10 MEQ TABLET.ER. PO ONE (10:15)
[2019-07-27] MEDS ORDERED: METOCLOPRAMIDE HCL 10 MG/2 ML VIAL. IVP ONE (10:15)
--- NOTE | 2019-07-27 10:40 | RAD ---
Acute Abdominal Series: Technique: PA view of the chest and supine and upright views of the abdomen were obtained. History: Nausea vomiting and abdominal pain. Comparison: None. Findings: The lungs and pleural margins are clear. There is air scattered throughout portions the colon. There is a paucity small bowel gas. There is no free air. Impression: Nonobstructive bowel gas pattern. Electronically signed by: Gage Faith III, MD (07/27/2019 10:37 AM) [id number]
--- NOTE | 2019-07-27 10:46 | PHYS DOC ---
Past Medical History Past Medical History: Anxiety, Bipolar, Depression, Diabetes-Type II, Hypertension Additional Past Medical Histor: chronic back pain Past Surgical History: Knee Replacement Additional Past Surgical Histo: cardiac cath, skin cancer removal Smoking Status: Light Tobacco Smoker Alcohol Use: None Drug Use: None General Adult EDM: Chief Complaint: NAUSEA/VOMITING HPI: HPI: Patient is a 49 year old male who presents to ER today for evaluation of nausea and vomiting since earlier this morning. Patient denies any fever, no abdominal pain, no cough, no chest pain. Patient is currently under IV antibiotic at home due to infection in his left prosthesis knee joint. Patient also will receive blood transfusion last Tuesday. Patient denies any rectal bleeding, no vomiting blood. Patient denied being on blood thinners at this time. Review of Systems: Review of Systems: Constitutional: Denies fever or chills. [] Eyes: Denies change in visual acuity. [] HENT: Denies nasal congestion or sore throat. [] Respiratory: Denies cough or shortness of breath. [] Cardiovascular: Denies chest pain or edema. [] GI: Denies abdominal pain, Positive for nausea, vomiting , no bloody stools or diarrhea. [] : Denies dysuria. [] Musculoskeletal: Denies back pain or joint pain. [] Integument: Denies rash. [] Neurologic: Denies headache, focal weakness or sensory changes. [] Endocrine: Denies polyuria or polydipsia. [] Lymphatic: Denies swollen glands. [] Psychiatric: Denies depression or anxiety. [] Heart Score: Risk Factors: Risk Factors: DM, Current or recent (<one month) smoker, HTN, HLP, family history of CAD, obesity. Risk Scores: Score 0 - 3: 2.5% MACE over next 6 weeks - Discharge Home Score 4 - 6: 20.3% MACE over next 6 weeks - Admit for Clinical Observation Score 7 - 10: 72.7% MACE over next 6 weeks - Early Invasive Strategies Current Medications: Current Medications Medications (Trade) Dose Ordered Sig/Edilma Start Time Stop Time Status Last Admin Dose Admin Metoclopramide HCl (Reglan Vial) 10 mg 1X ONCE 07/27/19 10:15 07/27/19 10:16 DC 07/27/19 10:17 10 MG Ondansetron HCl (Zofran) 8 mg 1X ONCE 07/27/19 09:15 07/27/19 09:16 DC 07/27/19 08:58 8 MG Potassium Chloride (Klor-Con) 80 meq 1X ONCE 07/27/19 10:15 07/27/19 10:16 DC 07/27/19 10:09 80 MEQ Allergies: Allergies: Allergies Coded Allergies Type Severity Reaction Last Updated Verified daptomycin Allergy Intermediate chills, nausea 07/23/19 Yes I S O L A T I O N *CONTACT* Allergy Unknown 07/12/19 Yes No Known Medication Allergies Allergy Unknown 07/23/19 Yes Physical Exam: PE: Constitutional: Well developed, well nourished, no acute distress, non-toxic appearance. [] HENT: Normocephalic, atraumatic, bilateral external ears normal, oropharynx moist, no oral exudates, nose normal. [] Eyes: PERRLA, EOMI, conjunctiva normal, no discharge. [] Neck: Normal range of motion, no tenderness, supple, no stridor. [] Cardiovascular:Heart rate regular rhythm, no murmur [] Lungs & Thorax: Bilateral breath sounds clear to auscultation [] Abdomen: Bowel sounds normal, soft, no tenderness, no masses, no pulsatile masses. [] Skin: Warm, dry, no erythema, no rash. [] Back: No tenderness, no CVA tenderness. [] Extremities: No tenderness, no cyanosis, no clubbing, ROM intact, no edema. Left knee with open wound, clear drainage present. Neurologic: Alert and oriented X 3, normal motor function, normal sensory function, no focal deficits noted. [] Psychologic: Affect normal, judgement normal, mood normal. [] Current Patient Data: Labs: Laboratory Tests Test 07/27/19 08:25 White Blood Count 6.0 x10^3/uL (4.0-11.0) Red Blood Count 3.92 x10^6/uL (4.30-5.70) L Hemoglobin 9.1 g/dL (13.0-17.5) L Hematocrit 29.1 % (39.0-53.0) L Mean Corpuscular Volume 74 fL (79-100) L Mean Corpuscular Hemoglobin 23 pg (25-35) L Mean Corpuscular Hemoglobin Concent 31 g/dL (31-37) Red Cell Distribution Width 18.1 % (11.5-14.5) H Platelet Count 439 x10^3/uL (140-400) H Neutrophils (%) (Auto) 75 % (31-73) H Lymphocytes (%) (Auto) 16 % (24-48) L Monocytes (%) (Auto) 8 % (0-9) Eosinophils (%) (Auto) 0 % (0-3) Basophils (%) (Auto) 1 % (0-3) Neutrophils # (Auto) 4.5 x10^3/uL (1.8-7.7) Lymphocytes # (Auto) 1.0 x10^3/uL (1.0-4.8) Monocytes # (Auto) 0.5 x10^3/uL (0.0-1.1) Eosinophils # (Auto) 0.0 x10^3/uL (0.0-0.7) Basophils # (Auto) 0.0 x10^3/uL (0.0-0.2) Sodium Level 138 mmol/L (136-145) Potassium Level 2.5 mmol/L (3.5-5.1) *L Chloride Level 100 mmol/L (98-107) Carbon Dioxide Level 19 mmol/L (21-32) L Anion Gap 19 (6-14) H Blood Urea Nitrogen 3 mg/dL (8-26) L Creatinine 1.1 mg/dL (0.7-1.3) Estimated GFR (Cockcroft-Gault) 70.9 BUN/Creatinine Ratio 3 (6-20) L Glucose Level 201 mg/dL (70-99) H Calcium Level 9.2 mg/dL (8.5-10.1) Total Bilirubin 0.8 mg/dL (0.2-1.0) Aspartate Amino Transferase (AST) 11 U/L (15-37) L Alanine Aminotransferase (ALT) 14 U/L (16-63) L Alkaline Phosphatase 122 U/L (46-116) H Total Protein 7.6 g/dL (6.4-8.2) Albumin 3.0 g/dL (3.4-5.0) L Albumin/Globulin Ratio 0.7 (1.0-1.7) L Lipase 99 U/L (73-393) Laboratory Tests 07/27/19 08:25 Laboratory Tests 07/27/19 08:25 Vital Signs: Vital Signs Date Time Temp Pulse Resp B/P (MAP) Pulse Ox O2 Delivery O2 Flow Rate FiO2 07/27/19 09:00 99.1 87 18 191/100 (130) 100 Room Air 99.1 EKG: EKG: [] Radiology/Procedures: Radiology/Procedures: [][facility] [address] [place] [address] IMAGING REPORT Signed PATIENT: ANASTACIA RESENDEZCCOUNT: [id number] : 1970 LOCATION: ER AGE: 49 SEX: M EXAM STATUS: REG ER ORD. PHYSICIAN: NEETU JEREZ DO REASON: nausea, vomiting, abdominal pain PROCEDURE: ACUTE ABDOMEN SERIES Acute Abdominal Series: Technique: PA view of the chest and supine and upright views of the abdomen were obtained. History: Nausea vomiting and abdominal pain. Comparison: None. Findings: The lungs and pleural margins are clear. There is air scattered throughout portions the colon. There is a paucity small bowel gas. There is no free air. Impression: Nonobstructive bowel gas pattern. Electronically signed by: Gina Mcintosh III, MD (07/27/2019 10:37 AM) [id number] DICTATED and SIGNED BY: GINA MCINTOSH III, MD DATE: 07/27/19 1037 Course & Med Decision Making: Course & Med Decision Making Pertinent Labs and Imaging studies reviewed. (See chart for details) Patient was found to have low potassium level. Patient was given 80 MEQ OF KCL PO. He continues to have nausea/vomiting. will admit him to the hospital, orthopedic surgeon, Dr. Avila was contacted about left knee prosthesis wound, will see patient in the hospital. Dragon Disclaimer: Dragon Disclaimer: This electronic medical record was generated, in whole or in part, using a voice recognition dictation system. Departure Departure Impression: Primary Impression: Hypokalemia Additional Impressions: Nausea & vomiting Infection of prosthetic left knee joint Disposition: ADMITTED INPATIENT Admitting Physician: SHANTELLE (Dr. Griffiths) Condition: STABLE Referrals: BAMBI SHEA APRN (PCP) NEETU JEREZ DO Jul 27, 2019 10:46
[2019-07-27] MEDS ORDERED: ONDANSETRON PF 4 MG/2 ML VIAL. IV PRN ×2 (11:15→14:30)
[2019-07-27] MEDS ORDERED: POTASSIUM CL 20MEQ D5-0.45NACL 1,000 ML IV ONE (11:15)
[2019-07-27 12:00] VITALS: BP 159/109
--- NOTE | 2019-07-27 13:12 | PDOC1 ---
History and Physical Date of Admission Date of Admission DATE: 07/27/19 TIME: 13:12 Identification/Chief Complaint Chief Complaint Left knee pain Source Source: Patient History of Present Illness History of Present Illness Mr Reyes is a 49yo M w/ PMHx Anxiety, Bipolar, Depression, Diabetes-Type II, Hypertension, chronic back pain, and left TKR with prior revision who presents to ED 07/27/2019 c/o nausea and vomiting since 07/25 in the afternoon. Patient denies any fever, no abdominal pain, no cough, no chest pain. Patient is currently under IV antibiotic at home due to infection in his left prosthetic knee joint and also c/o leaking from his left knee. Potassium 2.5 in ED. Admitted for further care. Past Medical History Cardiovascular: HTN Heme/Onc: No pertinent hx Hepatobiliary: No pertinent hx Psych: No pertinent hx, Bipolar, Other Musculoskeletal: low back pain Rheumatologic: No pertinent hx Endocrine: Hypothyroidism Past Surgical History Past Surgical History: Total knee replacement Family History Family History: No Significant Social History Smoke: No ALCOHOL: none Drugs: None Current Problem List Problem List Problems Medical Problems: (1) Hypokalemia Status: Acute (2) Infection of prosthetic left knee joint Status: Acute (3) Nausea & vomiting Status: Acute Current Medications Current Medications Current Medications Ondansetron HCl (Zofran) 8 mg 1X ONCE IVP Last administered on 07/27/19at 08:58; Start 07/27/19 at 09:15; Stop 07/27/19 at 09:16; Status DC Potassium Chloride (Klor-Con) 80 meq 1X ONCE PO Last administered on 07/27/19at 10:09; Start 07/27/19 at 10:15; Stop 07/27/19 at 10:16; Status DC Metoclopramide HCl (Reglan Vial) 10 mg 1X ONCE IVP Last administered on 07/27/19at 10:17; Start 07/27/19 at 10:15; Stop 07/27/19 at 10:16; Status DC Ondansetron HCl (Zofran) 4 mg PRN Q8HRS PRN IV NAUSEA/VOMITING; Start 07/27/19 at 11:15; Stop 07/28/19 at 11:14 Potassium Chloride/Dextrose/ Sod Cl 1,000 ml @ 80 mls/hr 1X ONCE IV ; Start 07/27/19 at 11:15; Stop 07/27/19 at 23:44 Active Scripts Active Reported Piperacil-Tazobact 4.5 Gm Vial (Piperacillin Sodium/Tazobactam) 4.5 Gm Vial.port 4.5 Gm IV TID Vancomycin 750 Mg/150 Ml Bag (Vancomycin In Dextrose,Iso-Osm) 750 Mg/150 Ml Froz.piggy 750 Mg IV BID Lidocaine PATCH (Lidocaine) 1 Each Adh..patch 1 Each TP DAILY REMOVE AFTER 12 HOURS Lisinopril 5 Mg Tablet 1 Tab PO DAILY Percocet 7.5-325 Mg Tablet (Oxycodone/Acetaminophen) 1 Each Tablet 1 Tab PO PRN Q6HRS PRN Clonazepam 1 Mg Tablet 1 Mg PO BID [place] Carbonate 300 Mg Tablet 1 Tab PO BID Zanaflex (Tizanidine Hcl) 4 Mg Capsule 1 Cap PO TID PRN Janumet 50-1,000 Mg Tablet (Sitagliptin Phos/Metformin Hcl) 1 Each Tablet 1 Tab PO BID Doxepin Hcl 50 Mg Capsule 300 Mg PO HS Allergies Allergies: Coded Allergies: daptomycin (Verified Allergy, Intermediate, chills, nausea , 07/23/19) I S O L A T I O N *CONTACT* (Verified Allergy, Unknown, 07/12/19) mrsa No Known Medication Allergies (Verified Allergy, Unknown, 07/23/19) ketamine (Verified Allergy, Unknown, 07/27/19) ROS General: No: Chills, Night Sweats, Fatigue, Malaise, Appetite, Other PSYCHOLOGICAL ROS: No: Anxiety, Behavioral Disorder, Concentration difficultie, Decreased libido, Depression, Disorientation, Hallucinations, Hostility, Irritablity, Memory difficulties, Mood Swings, Obsessive thoughts, Physical abuse, Sexual abuse, Sleep disturbances, Suicidal ideation, Other Eyes: No Blurry vision, No Decreased vision, No Double vision, No Dry eyes, No Excessive tearing, No Eye Pain, No Itchy Eyes, No Loss of vision, No Photophobia, No Scotomata, No Uses contacts, No Uses glasses, No Other HEENT: No: Heacaches, Visual Changes, Hearing change, Nasal congestion, Nasal discharge, Oral lesions, Sinus pain, Sore Throat, Epistaxis, Sneezing, Snoring, Tinnitus, Vertigo, Vocal changes, Other ALLERGY AND IMMUNOLOGY: No: Hives, Insect Bite Sensitivity, Itchy/Watery Eyes, Nasal Congestion, Post Nasal Drip, Seasonal Allergies, Other Hematological and Lymphatic: No: Bleeding Problems, Blood Clots, Blood Transfusions, Brusing, Night Sweats, Pallor, Swollen Lymph Nodes, Other ENDOCRINE: No: Breast Changes, Galactorrhea, Hair Pattern Changes, Hot Flashes, Malaise/lethargy, Mood Swings, Palpitations, Polydipsia/polyuria, Skin Changes, Temperature Intolerance, Unexpected Weight Changes, Other Breast: No New/Changing Breast Lumps, No Nipple changes, No Nipple discharge, No Other Respiratory: No: Cough, Hemoptysis, Orthopnea, Pleuritic Pain, Shortness of breath, SOB with excertion, Sputum Changes, Stridor, Tachypnea, Wheezing, Other Cardiovascular: No Chest Pain, No Palpitations, No Orthopnea, No Paroxysmal Noc. Dyspnea, No Edema, No Lt Headedness, No Other Gastrointestinal: Yes Nausea, Yes Vomiting; No Abdominal Pain, No Diarrhea, No Constipation, No Melena, No Hematochezia, No Other Genitourinary: No Dysuria, No Frequency, No Incontinence, No Hematuria, No Retention, No Discharge, No Urgency, No Pain, No Flank Pain, No Other, No , No , No , No , No , No , No Musculoskeletal: Yes Gait Disturbance, Yes Joint Pain; No Joint Stiffness, No Joint Swelling, No Muscle Pain, No Muscular Weakness, No Pain In:, No Swelling In:, No Other Neurological: No Behavorial Changes, No Bowel/Bladder ControlChng, No Confusion, No Dizziness, No Gait Disturbance, No Headaches, No Impaired Coord/balance, No Memory Loss, No Numbness/Tingling, No Seizures, No Speech Problems, No Tremors, No Visual Changes, No Weakness, No Other Skin: No Dry Skin, No Eczema, No Hair Changes, No Lumps, No Mole Changes, No Mottling, No Nail Changes, No Pruritus, No Rash, No Skin Lesion Changes, No Other, No Acne Physical Exam General: Alert, Oriented X3, Cooperative, No acute distress HEENT: Atraumatic, PERRLA, EOMI, Mucous membr. moist/pink Lungs: Clear to auscultation, Normal air movement Heart: S1S2, RRR, no thrills, no rubs, no gallops, no murmurs Abdomen: Normal bowel sounds, Soft, No tenderness, No hepatosplenomegaly, No masses Rectal Exam: not examined Extremities: No clubbing, No cyanosis, No edema, Normal pulses Skin: Other (Left knee with fluid) Neuro: Normal speech, Strength at 5/5 X4 ext, Normal tone, Sensation intact, Cranial nerves 3-12 NL, Reflexes 2+ Psych/Mental Status: Mental status NL, Mood NL Vitals Vitals Vital Signs Date Time Temp Pulse Resp B/P (MAP) Pulse Ox O2 Delivery O2 Flow Rate FiO2 07/27/19 12:00 93 20 168/95 (119) 07/27/19 11:00 100 Room Air 07/27/19 09:00 99.1 99.1 Labs Labs Laboratory Tests Test 07/27/19 08:25 White Blood Count 6.0 x10^3/uL (4.0-11.0) Red Blood Count 3.92 x10^6/uL (4.30-5.70) Hemoglobin 9.1 g/dL (13.0-17.5) Hematocrit 29.1 % (39.0-53.0) Mean Corpuscular Volume 74 fL (79-100) Mean Corpuscular Hemoglobin 23 pg (25-35) Mean Corpuscular Hemoglobin Concent 31 g/dL (31-37) Red Cell Distribution Width 18.1 % (11.5-14.5) Platelet Count 439 x10^3/uL (140-400) Neutrophils (%) (Auto) 75 % (31-73) Lymphocytes (%) (Auto) 16 % (24-48) Monocytes (%) (Auto) 8 % (0-9) Eosinophils (%) (Auto) 0 % (0-3) Basophils (%) (Auto) 1 % (0-3) Neutrophils # (Auto) 4.5 x10^3/uL (1.8-7.7) Lymphocytes # (Auto) 1.0 x10^3/uL (1.0-4.8) Monocytes # (Auto) 0.5 x10^3/uL (0.0-1.1) Eosinophils # (Auto) 0.0 x10^3/uL (0.0-0.7) Basophils # (Auto) 0.0 x10^3/uL (0.0-0.2) Sodium Level 138 mmol/L (136-145) Potassium Level 2.5 mmol/L (3.5-5.1) Chloride Level 100 mmol/L (98-107) Carbon Dioxide Level 19 mmol/L (21-32) Anion Gap 19 (6-14) Blood Urea Nitrogen 3 mg/dL (8-26) Creatinine 1.1 mg/dL (0.7-1.3) Estimated GFR (Cockcroft-Gault) 70.9 BUN/Creatinine Ratio 3 (6-20) Glucose Level 201 mg/dL (70-99) Calcium Level 9.2 mg/dL (8.5-10.1) Total Bilirubin 0.8 mg/dL (0.2-1.0) Aspartate Amino Transf (AST/SGOT) 11 U/L (15-37) Alanine Aminotransferase (ALT/SGPT) 14 U/L (16-63) Alkaline Phosphatase 122 U/L (46-116) Total Protein 7.6 g/dL (6.4-8.2) Albumin 3.0 g/dL (3.4-5.0) Albumin/Globulin Ratio 0.7 (1.0-1.7) Lipase 99 U/L (73-393) Laboratory Tests Test 07/27/19 08:25 White Blood Count 6.0 x10^3/uL (4.0-11.0) Red Blood Count 3.92 x10^6/uL (4.30-5.70) Hemoglobin 9.1 g/dL (13.0-17.5) Hematocrit 29.1 % (39.0-53.0) Mean Corpuscular Volume 74 fL (79-100) Mean Corpuscular Hemoglobin 23 pg (25-35) Mean Corpuscular Hemoglobin Concent 31 g/dL (31-37) Red Cell Distribution Width 18.1 % (11.5-14.5) Platelet Count 439 x10^3/uL (140-400) Neutrophils (%) (Auto) 75 % (31-73) Lymphocytes (%) (Auto) 16 % (24-48) Monocytes (%) (Auto) 8 % (0-9) Eosinophils (%) (Auto) 0 % (0-3) Basophils (%) (Auto) 1 % (0-3) Neutrophils # (Auto) 4.5 x10^3/uL (1.8-7.7) Lymphocytes # (Auto) 1.0 x10^3/uL (1.0-4.8) Monocytes # (Auto) 0.5 x10^3/uL (0.0-1.1) Eosinophils # (Auto) 0.0 x10^3/uL (0.0-0.7) Basophils # (Auto) 0.0 x10^3/uL (0.0-0.2) Sodium Level 138 mmol/L (136-145) Potassium Level 2.5 mmol/L (3.5-5.1) Chloride Level 100 mmol/L (98-107) Carbon Dioxide Level 19 mmol/L (21-32) Anion Gap 19 (6-14) Blood Urea Nitrogen 3 mg/dL (8-26) Creatinine 1.1 mg/dL (0.7-1.3) Estimated GFR (Cockcroft-Gault) 70.9 BUN/Creatinine Ratio 3 (6-20) Glucose Level 201 mg/dL (70-99) Calcium Level 9.2 mg/dL (8.5-10.1) Total Bilirubin 0.8 mg/dL (0.2-1.0) Aspartate Amino Transf (AST/SGOT) 11 U/L (15-37) Alanine Aminotransferase (ALT/SGPT) 14 U/L (16-63) Alkaline Phosphatase 122 U/L (46-116) Total Protein 7.6 g/dL (6.4-8.2) Albumin 3.0 g/dL (3.4-5.0) Albumin/Globulin Ratio 0.7 (1.0-1.7) Lipase 99 U/L (73-393) VTE Prophylaxis Ordered VTE Prophylaxis Devices: Yes VTE Pharmacological Prophylaxi: Yes Assessment/Plan Assessment/Plan A/P: Intractable nausea and vomiting - requiring IV antiemetics. Will continue Hypokalemia - will replace and check mag Anxiety, Bipolar, Depression - will check lithium level given his potassium level and cont meds Diabetes-Type II - basal bolus insulin while inpatient Hypertension - cont lisinopril Chronic back pain - will cont meds Left knee pain - s/p TKR, now with need for likely repeat revision. Would await K at least greater than 3 prior to surgical correction, otherwise no further testing needed FEN - NPO PPX - lovenox FULL CODE Dispo - inpatient MILAD BUSBY MD Jul 27, 2019 13:12
[2019-07-27] MEDS ORDERED: DEXTROSE 50% 25 GM / 50ML DISP.SYRIN. IV PRN (14:30)
[2019-07-27 15:39] VITALS: BP 174/98
[2019-07-27] MEDS ORDERED: clonazePAM 0.5 MG TABLET PO PRN (15:45)
[2019-07-27] MEDS ORDERED: METOCLOPRAMIDE HCL 10 MG/2 ML VIAL. IVP PRN (16:30)
[2019-07-27] MEDS ORDERED: ALTEPLASE 1MG SYRINGE. INT CAT ONE (16:30)
[2019-07-27 17:11] LABS: LI < 0.2 mmol/L (0.6-1.2)
[2019-07-27] MEDS ORDERED: POTASSIUM CHLORIDE 20 MEQ TABLET.ER. PO ONE (17:30)
[2019-07-27] MEDS: POTASSIUM CHLORIDE 10MEQ 100 ML IV SCH ×2 (17:54→19:14)
[2019-07-27] MEDS: oxyCODONE/APAP 7.5/325 1 TAB TABLET PO PRN (17:57)
[2019-07-27] MEDS ORDERED: MAGNESIUM SULFATE 2GM 50 ML IV ONE (18:00)
[2019-07-27] MEDS: INSULIN LISPRO 300 UNITS/3 ML VIAL. SQ SCH ×2 (18:01→22:06)
[2019-07-27] MEDS ORDERED: PIP/TAZO PER PHARMACY MC PRN (18:45)
[2019-07-27] MEDS: VANCOMYCIN PER PHARMACY MC PRN (19:31)
--- NOTE | 2019-07-27 19:31 | NUR ---
Pharmacy Vancomycin Dosing Note S:Consulted to monitor and dose vancomycin started 07/27/19. O:DIPTIANASTACIA Jacome is a 49 year old M with a long-term knee infection. Height: 5 feet, 7 inches Weight: 109.0 kg Dosing Weight: Actual Other Antibiotics: ZOSYN 3.375G IV Q6HRS LABS: Last BUN: 3 Last Creatinine: 1.1 Creatinine Clearance: 94 mL/min Last WBC: 6 Tmax (past 24 hours): 99.1 Microbiology: N/A I/O: Drug Levels: Last Trough level: 11.4 on 07/26/19 at 0915 Last dose given at A: Per patient report, he has been receiving vancomycin 750 mg IV q 12hrs as a home infusion. A trough yesterday was within goal range. His SCr is 1.1 with an eCrCl of 94 ml/min. Will initiate patient reported dose and recheck a VT prior to fourth dose of admission: P: 1. Initiate Vancomycin 750 mg IV q12h (patient's reported home dosing) 2. Follow up Trough level on 07/29/19 at 0830 3. Pharmacy will continue to monitor, follow and adjust therapy as needed. NAHID TOM [facility], 07/27/19 1938
[2019-07-27 19:50] VITALS: BP 159/95
[2019-07-27] MEDS ORDERED: [UNRECOGNIZED DRUG - OTHER] IV SCH (21:00)
[2019-07-27] MEDS ORDERED: VANCOMYCIN IV SCH (21:00)
[2019-07-27] MEDS ORDERED: DEXTROSE IV SCH (21:00)
[2019-07-27] MEDS ORDERED: [UNRECOGNIZED DRUG - OTHER] IV SCH (21:00)
[2019-07-27] MEDS ORDERED: DOXEPIN HCL 25 MG CAPSULE. PO SCH (21:00)
[2019-07-27] MEDS: LITHIUM CARBONATE ER 300 MG TABLET.ER PO SCH (22:14)
[2019-07-27] MEDS: VANCOMYCIN 750 MG in IV NORMAL SALINE 250ML 250 ML IV SCH (22:15)
[2019-07-27 23:28] VITALS: BP_SYST 131; BP_SYST 165; BP_DIAS 67; BP_DIAS 96
[2019-07-28] VITALS (14 sets, daily range): BP systolic 124–177; BP diastolic 72–100
[2019-07-28] MEDS: oxyCODONE/APAP 7.5/325 1 TAB TABLET PO PRN ×2 (00:26→12:29)
[2019-07-28] MEDS: PIPERACILLIN/TAZOBACTAM 3.375 GM in IV NORMAL SALINE 50ML 50 ML IV SCH ×4 (00:27→18:39)
[2019-07-28] MEDS: tiZANidine 4 MG TABLET. PO PRN ×2 (03:12→14:48)
--- NOTE | 2019-07-28 03:22 | NUR ---
This RN took over care for this patient.
[2019-07-28] MEDS ORDERED: LIDOCAINE 2% PF 5 ML VIAL. ONE (06:47)
[2019-07-28] MEDS ORDERED: PROPOFOL 20 ML IV ONE (06:47)
[2019-07-28 06:57] LABS: CALCIUM 8.5 mg/dL (8.5-10.1); CREATININE 0.9 mg/dL (0.7-1.3); GFR 89.3; POTASSIUM 3.4 mmol/L (3.5-5.1)
[2019-07-28] MEDS: INSULIN LISPRO 300 UNITS/3 ML VIAL. SQ SCH ×4 (07:30→21:00)
--- NOTE | 2019-07-28 07:59 | NUR ---
patient left for surgery at 0757 hours.
[2019-07-28] MEDS: POTASSIUM CHLORIDE 20 MEQ TABLET.ER. PO SCH (08:00)
[2019-07-28] MEDS: LISINOPRIL 5 MG TABLET. PO SCH (09:00)
[2019-07-28] MEDS ORDERED: POTASSIUM CHLORIDE 20MEQ 100 ML IV ONE (09:30)
[2019-07-28] MEDS ORDERED: VANCOMYCIN 1 GM VIAL. ONE (09:30)
[2019-07-28] MEDS ORDERED: MAGNESIUM SULFATE 4GM 100 ML IV ONE (09:30)
--- NOTE | 2019-07-28 12:16 | PDOC ---
PROGRESS NOTES Chief Complaint Chief Complaint A/P: Intractable nausea and vomiting - requiring IV antiemetics. Will continue Hypokalemia - will replace Hypomagnesemia will replace Anxiety, Bipolar, Depression - will check lithium level given his potassium level and cont meds Diabetes-Type II - basal bolus insulin while inpatient Hypertension - cont lisinopril Chronic back pain - will cont meds Left knee pain - s/p TKR, now with need for likely repeat revision. Would await K at least greater than 3 prior to surgical correction, otherwise no further testing needed FEN - NPO PPX - lovenox FULL CODE Dispo - inpatient History of Present Illness History of Present Illness Seen postop. No acute events reported overnight, case discussed with nursing staff patient in no acute distress no complaints during my visit Vitals Vitals Vital Signs Date Time Temp Pulse Resp B/P (MAP) Pulse Ox O2 Delivery O2 Flow Rate FiO2 07/28/19 11:20 78 18 136/84 98 Room Air 07/28/19 11:05 97.6 97.6 07/28/19 10:50 8 Physical Exam General: Alert, Oriented X3, Cooperative, No acute distress Lungs: Clear Abdomen: Normal bowel sounds, Soft, No tenderness, No hepatosplenomegaly, No masses Extremities: No clubbing, No cyanosis, No edema, Normal pulses Skin: Other (Left knee with fluid) Labs LABS Laboratory Tests Test 07/27/19 16:20 07/27/19 16:30 07/27/19 20:59 07/28/19 05:40 Potassium Level 2.8 mmol/L (3.5-5.1) 3.4 mmol/L (3.5-5.1) Magnesium Level 1.7 mg/dL (1.8-2.4) Frisbee Level < 0.2 mmol/L (0.6-1.2) Frisbee Last Dose Date 07/26/19 Frisbee Last Dose Time 0900 Glucose (Fingerstick) 160 mg/dL (70-99) 164 mg/dL (70-99) Sodium Level 142 mmol/L (136-145) Chloride Level 106 mmol/L (98-107) Carbon Dioxide Level 24 mmol/L (21-32) Anion Gap 12 (6-14) Blood Urea Nitrogen 3 mg/dL (8-26) Creatinine 0.9 mg/dL (0.7-1.3) Estimated GFR (Cockcroft-Gault) 89.3 Glucose Level 181 mg/dL (70-99) Calcium Level 8.5 mg/dL (8.5-10.1) Test 07/28/19 07:45 07/28/19 10:56 07/28/19 11:50 Glucose (Fingerstick) 196 mg/dL (70-99) 197 mg/dL (70-99) 195 mg/dL (70-99) Assessment and Plan Assessmemt and Plan Problems Medical Problems: (1) Hypokalemia Status: Acute (2) Infection of prosthetic left knee joint Status: Acute (3) Nausea & vomiting Status: Acute Comment Review of Relevant I have reviewed the following items blaze (where applicable) has been applied. Labs Laboratory Tests Test 07/27/19 08:25 07/27/19 16:20 07/27/19 16:30 07/27/19 20:59 White Blood Count 6.0 x10^3/uL (4.0-11.0) Red Blood Count 3.92 x10^6/uL (4.30-5.70) Hemoglobin 9.1 g/dL (13.0-17.5) Hematocrit 29.1 % (39.0-53.0) Mean Corpuscular Volume 74 fL (79-100) Mean Corpuscular Hemoglobin 23 pg (25-35) Mean Corpuscular Hemoglobin Concent 31 g/dL (31-37) Red Cell Distribution Width 18.1 % (11.5-14.5) Platelet Count 439 x10^3/uL (140-400) Neutrophils (%) (Auto) 75 % (31-73) Lymphocytes (%) (Auto) 16 % (24-48) Monocytes (%) (Auto) 8 % (0-9) Eosinophils (%) (Auto) 0 % (0-3) Basophils (%) (Auto) 1 % (0-3) Neutrophils # (Auto) 4.5 x10^3/uL (1.8-7.7) Lymphocytes # (Auto) 1.0 x10^3/uL (1.0-4.8) Monocytes # (Auto) 0.5 x10^3/uL (0.0-1.1) Eosinophils # (Auto) 0.0 x10^3/uL (0.0-0.7) Basophils # (Auto) 0.0 x10^3/uL (0.0-0.2) Sodium Level 138 mmol/L (136-145) Potassium Level 2.5 mmol/L (3.5-5.1) 2.8 mmol/L (3.5-5.1) Chloride Level 100 mmol/L (98-107) Carbon Dioxide Level 19 mmol/L (21-32) Anion Gap 19 (6-14) Blood Urea Nitrogen 3 mg/dL (8-26) Creatinine 1.1 mg/dL (0.7-1.3) Estimated GFR (Cockcroft-Gault) 70.9 BUN/Creatinine Ratio 3 (6-20) Glucose Level 201 mg/dL (70-99) Calcium Level 9.2 mg/dL (8.5-10.1) Total Bilirubin 0.8 mg/dL (0.2-1.0) Aspartate Amino Transf (AST/SGOT) 11 U/L (15-37) Alanine Aminotransferase (ALT/SGPT) 14 U/L (16-63) Alkaline Phosphatase 122 U/L (46-116) Total Protein 7.6 g/dL (6.4-8.2) Albumin 3.0 g/dL (3.4-5.0) Albumin/Globulin Ratio 0.7 (1.0-1.7) Lipase 99 U/L (73-393) Magnesium Level 1.7 mg/dL (1.8-2.4) Frisbee Level < 0.2 mmol/L (0.6-1.2) Frisbee Last Dose Date 07/26/19 Frisbee Last Dose Time 0900 Glucose (Fingerstick) 160 mg/dL (70-99) 164 mg/dL (70-99) Test 07/28/19 05:40 07/28/19 07:45 07/28/19 10:56 07/28/19 11:50 Sodium Level 142 mmol/L (136-145) Potassium Level 3.4 mmol/L (3.5-5.1) Chloride Level 106 mmol/L (98-107) Carbon Dioxide Level 24 mmol/L (21-32) Anion Gap 12 (6-14) Blood Urea Nitrogen 3 mg/dL (8-26) Creatinine 0.9 mg/dL (0.7-1.3) Estimated GFR (Cockcroft-Gault) 89.3 Glucose Level 181 mg/dL (70-99) Calcium Level 8.5 mg/dL (8.5-10.1) Glucose (Fingerstick) 196 mg/dL (70-99) 197 mg/dL (70-99) 195 mg/dL (70-99) Laboratory Tests Test 07/27/19 16:20 07/27/19 16:30 07/27/19 20:59 07/28/19 05:40 Potassium Level 2.8 mmol/L (3.5-5.1) 3.4 mmol/L (3.5-5.1) Magnesium Level 1.7 mg/dL (1.8-2.4) Frisbee Level < 0.2 mmol/L (0.6-1.2) Frisbee Last Dose Date 07/26/19 Frisbee Last Dose Time 0900 Glucose (Fingerstick) 160 mg/dL (70-99) 164 mg/dL (70-99) Sodium Level 142 mmol/L (136-145) Chloride Level 106 mmol/L (98-107) Carbon Dioxide Level 24 mmol/L (21-32) Anion Gap 12 (6-14) Blood Urea Nitrogen 3 mg/dL (8-26) Creatinine 0.9 mg/dL (0.7-1.3) Estimated GFR (Cockcroft-Gault) 89.3 Glucose Level 181 mg/dL (70-99) Calcium Level 8.5 mg/dL (8.5-10.1) Test 07/28/19 07:45 07/28/19 10:56 07/28/19 11:50 Glucose (Fingerstick) 196 mg/dL (70-99) 197 mg/dL (70-99) 195 mg/dL (70-99) Medications Current Medications Ondansetron HCl (Zofran) 8 mg 1X ONCE IVP Last administered on 07/27/19at 08:58; Start 07/27/19 at 09:15; Stop 07/27/19 at 09:16; Status DC Potassium Chloride (Klor-Con) 80 meq 1X ONCE PO Last administered on 07/27/19at 10:09; Start 07/27/19 at 10:15; Stop 07/27/19 at 10:16; Status DC Metoclopramide HCl (Reglan Vial) 10 mg 1X ONCE IVP Last administered on 07/27/19at 10:17; Start 07/27/19 at 10:15; Stop 07/27/19 at 10:16; Status DC Ondansetron HCl (Zofran) 4 mg PRN Q8HRS PRN IV NAUSEA/VOMITING Last administered on 07/27/19at 13:39; Start 07/27/19 at 11:15; Stop 07/27/19 at 14:32; Status DC Potassium Chloride/Dextrose/ Sod Cl 1,000 ml @ 80 mls/hr 1X ONCE IV Last administered on 07/27/19at 13:41; Start 07/27/19 at 11:15; Stop 07/27/19 at 23:45; Status DC Ondansetron HCl (Zofran) 4 mg PRN Q4HRS PRN IV NAUSEA/VOMITING, 1ST CHOICE; Start 07/27/19 at 14:30 Lisinopril (Prinivil) 5 mg DAILY PO ; Start 07/28/19 at 09:00 Oxycodone/ Acetaminophen (Percocet 7.5/ 325) 1 tab PRN Q6HRS PRN PO PAIN Last administered on 07/28/19at 00:26; Start 07/27/19 at 14:30 Doxepin HCl (SINEquan) 300 mg QHS PO Last administered on 07/27/19at 22:15; Start 07/27/19 at 21:00 Insulin Human Lispro (HumaLOG) 0-7 UNITS TIDACHC SQ Last administered on 07/27/19at 18:01; Start 07/27/19 at 16:30 Dextrose (Dextrose 50%-Water Syringe) 12.5 gm PRN Q15MIN PRN IV SEE COMMENTS; Start 07/27/19 at 14:30 Clonazepam (KlonoPIN) 1 mg PRN Q12HRS PRN PO ANXIETY / AGITATION; Start 07/27/19 at 15:45 Frisbee Carbonate (Lithobid) 300 mg BID PO Last administered on 07/27/19at 22:14; Start 07/27/19 at 21:00 Tizanidine HCl (Zanaflex) 4 mg PRN Q6HRS PRN PO MUSCLE SPASMS Last administered on 07/28/19at 03:12; Start 07/27/19 at 15:45 Enoxaparin Sodium (Lovenox 40mg Syringe) 40 mg Q24H SQ ; Start 07/28/19 at 16:00 Alteplase, Recombinant (Cathflo For Central Catheter Clearance) 1 mg 1X ONCE INT CAT ; Start 07/27/19 at 16:30; Stop 07/27/19 at 16:31; Status DC Metoclopramide HCl (Reglan Vial) 5 mg PRN Q6HRS PRN IVP NAUSEA/VOMITING, 2ND CHOICE; Start 07/27/19 at 16:30 Magnesium Sulfate 50 ml @ 25 mls/hr 1X ONCE IV Last administered on 07/27/19at 17:55; Start 07/27/19 at 18:00; Stop 07/27/19 at 19:59; Status DC Potassium Chloride (Klor-Con) 40 meq 1X ONCE PO Last administered on 07/27/19at 18:29; Start 07/27/19 at 17:30; Stop 07/27/19 at 17:31; Status DC Potassium Chloride (Klor-Con) 20 meq DAILYWBKFT PO ; Start 07/28/19 at 08:00 Potassium Chloride/Water 100 ml @ 100 mls/hr Q1H IV Last administered on 07/27/19at 19:14; Start 07/27/19 at 18:00; Stop 07/27/19 at 19:59; Status DC Non-Formulary Medication (Piperacillin Sodium/Tazobactam (Piperacil-Tazobact 4.5 Gm Vial)) 4.5 gm TID IV ; Start 07/27/19 at 21:00; Status UNV Non-Formulary Medication (Vancomycin In Dextrose,Iso-Osm (Vancomycin 750 Mg/150 Ml Bag)) 750 mg BID IV ; Start 07/27/19 at 21:00; Status UNV Piperacillin Sod/ Tazobactam Sod (Zosyn Per Pharmacy) 1 each PRN DAILY PRN MC SEE COMMENTS; Start 07/27/19 at 18:45 Vancomycin HCl (Vanco Per Pharmacy) 1 each PRN DAILY PRN MC SEE COMMENTS Last administered on 07/27/19at 19:31; Start 07/27/19 at 18:45 Piperacillin Sod/ Tazobactam Sod 3.375 gm/Sodium Chloride 50 ml @ 100 mls/hr Q6HRS IV Last administered on 07/28/19at 05:38; Start 07/28/19 at 00:00 Vancomycin HCl 750 mg/Sodium Chloride 250 ml @ 250 mls/hr Q12H IV Last administered on 07/27/19at 22:15; Start 07/27/19 at 21:00 Vancomycin HCl (Vancomycin Trough Level) 1 each 1X ONCE MC ; Start 07/29/19 at 08:30; Stop 07/29/19 at 08:31 Propofol 20 ml @ As Directed STK-MED ONCE IV ; Start 07/28/19 at 06:47; Stop 07/28/19 at 06:48; Status DC Lidocaine HCl (Lidocaine Pf 2% Vial) 5 ml STK-MED ONCE .ROUTE ; Start 07/28/19 at 06:47; Stop 07/28/19 at 06:48; Status DC Vancomycin HCl (Vancomycin) 1 gm STK-MED ONCE .ROUTE Last administered on 07/28/19at 09:35; Start 07/28/19 at 09:30; Stop 07/28/19 at 09:31; Status DC Magnesium Sulfate 100 ml @ 25 mls/hr 1X ONCE IV ; Start 07/28/19 at 09:30; Stop 07/28/19 at 13:29 Potassium Chloride/Water 100 ml @ 50 mls/hr 1X ONCE IV ; Start 07/28/19 at 09:30; Stop 07/28/19 at 11:29; Status DC Active Scripts Active Reported Piperacil-Tazobact 4.5 Gm Vial (Piperacillin Sodium/Tazobactam) 4.5 Gm Vial.port 4.5 Gm IV TID Vancomycin 750 Mg/150 Ml Bag (Vancomycin In Dextrose,Iso-Osm) 750 Mg/150 Ml Froz.piggy 750 Mg IV BID Lidocaine PATCH (Lidocaine) 1 Each Adh..patch 1 Each TP DAILY REMOVE AFTER 12 HOURS Lisinopril 5 Mg Tablet 1 Tab PO DAILY Percocet 7.5-325 Mg Tablet (Oxycodone/Acetaminophen) 1 Each Tablet 1 Tab PO PRN Q6HRS PRN Clonazepam 1 Mg Tablet 1 Mg PO BID Frisbee Carbonate 300 Mg Tablet 1 Tab PO BID Zanaflex (Tizanidine Hcl) 4 Mg Capsule 1 Cap PO TID PRN Janumet 50-1,000 Mg Tablet (Sitagliptin Phos/Metformin Hcl) 1 Each Tablet 1 Tab PO BID Doxepin Hcl 50 Mg Capsule 300 Mg PO HS Vitals/I & O Vital Sign - Last 24 Hours 07/27/19 07/27/19 07/27/19 07/27/19 14:00 15:39 17:57 19:00 Temp 98.6 98.6 Pulse 91 Resp 16 B/P (MAP) 174/98 (123) Pulse Ox 100 O2 Delivery Room Air Room Air Room Air Room Air 07/27/19 07/27/19 07/27/19 07/28/19 19:50 21:15 23:28 03:27 Temp 98.8 99.1 98.3 98.8 99.1 98.3 Pulse 102 93 91 Resp 20 20 20 B/P (MAP) 159/95 (116) 165/96 (119) 177/100 (125) Pulse Ox 99 99 100 O2 Delivery Room Air Room Air Room Air Room Air 07/28/19 07/28/19 07/28/19 07/28/19 07:20 10:50 10:50 11:05 Temp 98.3 97.6 97.6 98.3 97.6 97.6 Pulse 71 81 71 Resp 16 16 16 B/P (MAP) 144/84 (104) 157/91 145/94 Pulse Ox 99 99 100 O2 Delivery Room Air Mask Simple Mask Room Air O2 Flow Rate 8 8 07/28/19 07/28/19 11:16 11:20 Pulse 78 Resp 18 B/P (MAP) 136/84 Pulse Ox 98 O2 Delivery Room Air Room Air Intake and Output 07/27/19 07/27/19 07/28/19 15:00 23:00 07:00 Intake Total 0 ml Output Total 3 ml Balance -3 ml JACOB PAYNE MD Jul 28, 2019 12:16
[2019-07-28] MEDS: LITHIUM CARBONATE ER 300 MG TABLET.ER PO SCH ×2 (12:28→21:24)
[2019-07-28] MEDS: VANCOMYCIN 750 MG in IV NORMAL SALINE 250ML 250 ML IV SCH ×2 (12:30→21:25)
[2019-07-28] MEDS: VANCOMYCIN PER PHARMACY MC PRN (12:53)
[2019-07-28 13:06] LABS: BF COLOR RED; BF SOURCE SYNOVIAL
[2019-07-28 13:07] LABS: BF CLARITY CLOUDY; BF PMN % 100 %; BF RBC COUNT 112500 /cmm (Not Established); BF WBC COUNT 9750 /cmm (Not Established)
--- NOTE | 2019-07-28 14:04 | PDOC ---
Infectious Disease Note Subjective Subjective Known to our service for treatment of left TKA suspected infection. See full consult from 07/11 and last follow-up note from 07/22 for further details. He is awaiting to see THAO calvillo for second opinion. Patient says his knee ws feeling better when he decided to do some cleaning. He thinks he may have overdone it as later in the day his left knee started to hurt, swell and leak some. He was seen by Dr. Avila. Synovial fluid cloudy, cell count 9750, RBC 11,2500. cultures pending He underwent I and D with wound vac placement this morning (op report not available) He remains on vancomycin and Zosyn Currently he is feeling alright, pain controlled. He had some N/V a couple of days ago that has since settled down. He denies change of diet, diarrhea/constipation or cramps. De denies F/C/S/aches ROS ROS per HPI Vital Sign Vital Signs Vital Signs Date Time Temp Pulse Resp B/P (MAP) Pulse Ox O2 Delivery O2 Flow Rate FiO2 07/28/19 12:30 97.6 80 16 151/93 (112) 99 Room Air 97.6 07/28/19 10:50 8 Physical Exam PHYSICAL EXAM GENERAL: Propped up in bed, lalert and joking HENMT: SEVERIANO, Oral cavity clear, no thrush NECK: Supple LINGS: CTAB HEART: S1, S2 ABDOMEN: Obese, soft, nontender, bowel sounds present EXT: Unremarkable. Left knee bandaged. Hinge brace in place. SKIN: Warm to touch. 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 oriented x 3 Right chest CVC without signs of complications Labs Lab Laboratory Tests Test 07/27/19 16:20 07/27/19 16:30 07/27/19 20:59 07/28/19 05:40 Potassium Level 2.8 mmol/L (3.5-5.1) 3.4 mmol/L (3.5-5.1) Magnesium Level 1.7 mg/dL (1.8-2.4) [place] Level < 0.2 mmol/L (0.6-1.2) [place] Last Dose Date 07/26/19 [place] Last Dose Time 0900 Glucose (Fingerstick) 160 mg/dL (70-99) 164 mg/dL (70-99) Sodium Level 142 mmol/L (136-145) Chloride Level 106 mmol/L (98-107) Carbon Dioxide Level 24 mmol/L (21-32) Anion Gap 12 (6-14) Blood Urea Nitrogen 3 mg/dL (8-26) Creatinine 0.9 mg/dL (0.7-1.3) Estimated GFR (Cockcroft-Gault) 89.3 Glucose Level 181 mg/dL (70-99) Calcium Level 8.5 mg/dL (8.5-10.1) Test 07/28/19 07:45 07/28/19 09:18 07/28/19 10:56 07/28/19 11:50 Glucose (Fingerstick) 196 mg/dL (70-99) 197 mg/dL (70-99) 195 mg/dL (70-99) Body Fluid Source Synovial Body Fluid Color Red Body Fluid Clarity Cloudy Body Fluid Nucleated Cells 9750 /cmm (Not Established) Body Fluid Polymorphonuclear Cells 100 % Body Fluid Total RBCs Counted 645304 /cmm (Not Objective Assessment N/V h/o left TKA suspected infection, had mechanical defect in fascia s/p I and D 07/11 - cults neg report Invosure was + h/o left knee revision arthtoplasty 06/05 cults negative -Status post 06/05/2019 removal of antibiotic spacer. Operative reduction and internal fixation of lateral epicondyle fracture and insertion of stemmed tibial and femoral components with reimplantation resurfacing patellar component, cultures neg h/o left knee prosthetic joint infection. Synovial cultures positive MRSE, 03/07/2019, (tetracycline-R) and swab cultures on 03/11/2019 grew Enterobacter faecalis, ampicillin sensitive. s/p explantation on 03/13/2019. Com[pleted 6 weeks IV vancomycin and a mpicillin. Last dose was on 04/25/2019. h/o wound dehiscence with wound VAC management up until approximately the end of 04/2019 through wound team with excoriation due to allergic component from wound dressing resolved prior to admission. History of fall with dislocation of the patellar component of left knee arthroplasty from the posterior aspect of patella on 02/11/2019 Left total knee arthroplasty in 01/2018. Status post 08/22/2018, incision and drainage on 09/19/2018 with polyethylene exchange. Cultures from 09/2018 remain negative including acid-fast bacilli, fungal. Abx intolerance to daptomycin h/o MRSA in nares Diabetes. Bipolar disorder. Anemia. Obstructive sleep apnea. Hypertension. Osteoarthritis. Plan Plan of Care vanc and Zosyn Monitor renal function closely Last trough 16.4 on 07/25. f/u labs and cultures Supportive care Thank you D/w nursing D/w Dr. Avila Seen on Tuesday and felt better after PRBCs Sed rate had improved 07/25 and Hgb stable but began to feel ill with N/V about noon and did not keep appt in office. Office recommended admit but did not report until 07/26. States vac began to leak more and his mother removed the vac 07/25. He did not have any F/c/s/SOA/Diarrhea/Rash and no other ill contacts. He did not have increasing pain in his knee but he presented because of nausea/vomiting. WBC nml and no fever at time of admit Given improved sed rate on 07/25, I cont the Vanc and Zosyn. He is now post op knee surgery but unclear of indication. Awaiting Op note [facility] has records and in process of review per Mr. Reyes and he is awaiting appt NICOLE YOUNG APRN Jul 28, 2019 14:04 VELIA NATH MD Jul 28, 2019 16:51
[2019-07-28] MEDS ORDERED: IV NORMAL SALINE 1000ML BAG 1,000 ML IV SCH (15:37)
[2019-07-28] MEDS ORDERED: fentaNYL PF VIAL 100 MCG/2 ML VIAL IVP PRN (15:45)
[2019-07-28] MEDS ORDERED: MORPHINE SULFATE 2 MG/ML VIAL. IVP PRN (15:45)
[2019-07-28] MEDS ORDERED: 0.9 % SODIUM CHLORIDE 10 ML DISP.SYRIN. IV PRN (15:45)
[2019-07-28] MEDS ORDERED: diphenhydrAMINE 50 MG/ML VIAL IVP PRN (15:45)
[2019-07-28] MEDS ORDERED: CALCIUM CARBONATE 500 MG TAB.CHEW PO PRN (15:45)
[2019-07-28] MEDS ORDERED: DEXTROSE 50% 25 GM / 50ML DISP.SYRIN. IV PRN (15:45)
[2019-07-28] MEDS ORDERED: ZOLPIDEM 5 MG TABLET. PO PRN (15:45)
[2019-07-28] MEDS ORDERED: oxyCODONE IR 5 MG TABLET PO PRN (15:45)
[2019-07-28] MEDS: FERROUS SULFATE 325 MG TABLET. PO SCH (16:57)
[2019-07-28] MEDS: ENOXAPARIN 40 MG/0.4 ML SYRINGE. SQ SCH (16:57)
[2019-07-28] MEDS: ONDANSETRON PF 4 MG/2 ML VIAL. IVP SCH (17:32)
[2019-07-28] MEDS: ONDANSETRON ODT 4 MG TAB.RAPDIS. PO SCH (17:32)
[2019-07-28] MEDS: oxyCODONE IR 5 MG TABLET PO PRN ×2 (18:46→22:51)
--- NOTE | 2019-07-28 19:28 | CONS ---
DATE OF CONSULTATION: 07/27/2019 ORTHOPEDIC CONSULTATION REQUESTING PHYSICIAN: Dr. Griffiths. REASON FOR CONSULTATION: Left knee drainage. HISTORY OF PRESENT ILLNESS: The patient is a 49-year-old male familiar to me from a complicated history of a unicondylar knee arthroplasty done elsewhere that had painfully loosened, was thought to be aseptic in nature. He had undergone due to progression of his arthritis and his pain, conversion to a total knee arthroplasty and somewhat remotely from that procedure as I recall approximately about a year out, developed infection necessitating an explantation of his implant, implantation of antibiotic spacer and had undergone reimplantation recently. He after that procedure, unfortunately had some ongoing drainage and underwent a recent procedure of irrigation and debridement, polyethylene exchange and was doing quite well for a limited amount of time after that procedure. He said the knee felt so good. He was out, underwent quite a bit more activity on one day and had significant swelling and presented to the Wound Clinic with a very swollen knee and drainage. He was initially placed in a postoperative wound VAC after this procedure with no drainage up to that point, but then began to develop additional drainage after the severe episode of swelling and that drainage has continued to this point over about a week period of time. I was actually scheduled to see him in the Wound Clinic the day of admission for evaluation and consideration of ongoing treatment option when he came into the Emergency Department because he was vomiting the night before and was admitted with hypokalemia and the above ongoing drainage from his left knee and was currently undergoing IV antibiotics as he did not have a specific organism growth on cultures, but he did have a positive Synovasure result on aspiration. PAST MEDICAL HISTORY: Significant for hypertension, bipolar disorder, hypothyroidism, low back pain, obesity. PAST SURGICAL HISTORY: The knee surgeries as detailed above. FAMILY HISTORY: Denies any significant family history. SOCIAL HISTORY: Denies smoking, alcohol or drug use. He is helped significantly by his mom who is active in his care. REVIEW OF SYSTEMS: He denies any chest pain or shortness of breath, has had the nausea and vomiting reported as above and the drainage, but no fever, chills and very little knee pain. No focal weakness, numbness, tingling or other constitutional symptoms. PHYSICAL EXAMINATION: On examination of the left knee, the superior part of his incision appears to be healed. The lower part of his midline incision is about 1 cm and has some exudate noted. There is no significant redness or erythema surrounding the wound or the remainder of the incision. Extensor mechanism is intact. He has good ligament stability to the knee and range of motion is not limited. Normal examination of the contralateral knee, bilateral hips and ankles. Intact motor function, distal pulses, sensation, reflexes in both lower extremities throughout. Skin significant for the midline knee wound on the left as noted above. IMPRESSION: History of reimplantation, total knee prosthesis, with wound drainage as above. TREATMENT PLAN: I went over with the patient and his mom the rationale for exploration of his knee at this point because I am concerned with ongoing drainage being a path for potential infection and given the sudden onset of his drainage after the skin and capsule being closed, the possibility of disruption just due to the increased activities that he has had, and we did talk about the seriousness of this if it does develop deep infection that we would certainly want to treat it early and aggressively. We did talk about possible surgical risk and the need if he continues to have poor wound healing, drainage, coverage of additional surgical procedures, even reimplantation or even amputation if infection develops and cannot be cleared. All his questions were answered. He does wish to proceed with surgical evaluation and treatment, which will occur as soon as his electrolytes are corrected as his potassium is currently too low to reasonably support surgical treatment and is being corrected at present. THEE GOMEZ MD DR: KADE/ritesh JOB#: [id number] / [id number]
[2019-07-28] MEDS: LACTOBACILLUS RHAMNOSUS GG 1 CAPSULE. PO SCH (21:00)
[2019-07-28] MEDS: DOXEPIN 150 MG PO SCH (21:29)
[2019-07-29] MEDS: PIPERACILLIN/TAZOBACTAM 3.375 GM in IV NORMAL SALINE 50ML 50 ML IV SCH ×5 (02:34→23:26)
[2019-07-29] MEDS: tiZANidine 4 MG TABLET. PO PRN ×3 (02:37→21:19)
[2019-07-29] MEDS: oxyCODONE IR 5 MG TABLET PO PRN ×4 (02:53→21:20)
[2019-07-29 03:00] VITALS: BP 153/83
[2019-07-29] MEDS ORDERED: MAGNESIUM HYDROXIDE 2,400 MG/30 ML ORAL.SUSP. PO PRN (06:00)
[2019-07-29] MEDS: ONDANSETRON PF 4 MG/2 ML VIAL. IVP SCH ×3 (06:00→12:00)
[2019-07-29] MEDS: ONDANSETRON ODT 4 MG TAB.RAPDIS. PO SCH ×3 (06:00→12:00)
[2019-07-29 07:00] VITALS: BP 148/93
[2019-07-29] MEDS: INSULIN LISPRO 300 UNITS/3 ML VIAL. SQ SCH ×4 (07:30→21:00)
[2019-07-29] MEDS: MULTIVITAMIN with MINERAL TABLET. PO SCH (08:50)
[2019-07-29] MEDS: FERROUS SULFATE 325 MG TABLET. PO SCH ×2 (08:50→17:10)
[2019-07-29] MEDS: LITHIUM CARBONATE ER 300 MG TABLET.ER PO SCH ×2 (08:50→21:14)
[2019-07-29] MEDS: LACTOBACILLUS RHAMNOSUS GG 1 CAPSULE. PO SCH ×2 (08:50→21:14)
[2019-07-29] MEDS: POTASSIUM CHLORIDE 20 MEQ TABLET.ER. PO SCH (08:51)
[2019-07-29] MEDS: LISINOPRIL 5 MG TABLET. PO SCH (08:51)
[2019-07-29] MEDS: ACETAMINOPHEN 500 MG TABLET PO SCH ×3 (08:51→21:00)
[2019-07-29] MEDS: SENNOSIDES/DOCUSATE 8.6/50MG TABLET. PO SCH (08:51)
[2019-07-29 09:33] LABS: VANC TR 12.8 mcg/mL (10.0-20.0)
[2019-07-29] MEDS: VANCOMYCIN PER PHARMACY MC PRN (09:55)
--- NOTE | 2019-07-29 09:57 | NUR ---
Pharmacy Vancomycin Dosing Note S: Consulted to monitor and dose vancomycin started 07/27/19. O: DIPTIANASTACIA Jacome is a 49 year old M with long-term knee infection. Other Antibiotics: ZOSYN 3.375G IV Q6HRS LABS: Last BUN: 3 Last Creatinine: 0.9 Creatinine Clearance: > 100 mL/min Last WBC: 6 Last Procalcitonin: - Tmax (past 24 hours): 97.6 Microbiology: N/A I/O: 760/350 Drug Levels: Last Trough level: 12.8 on 07/29/19 at 0905 Last dose given 07/28/19 at 2125 Vancomycin Dosing: Dosing Weight: Actual Target Trough: 10-20 A: Based on: trough P: 1. Continue Vancomycin 750 mg IV q12h 2. Follow up Trough level in 5-7 days as needed 3. Pharmacy will continue to monitor, follow and adjust therapy as needed. Adamaris Watters RPH, 07/29/19 [id number]
[2019-07-29 11:00] VITALS: BP 152/83
--- NOTE | 2019-07-29 11:24 | PDOC4 ---
Operative Note Operative Note Date of surgery: 07/28/2019 Preoperative diagnosis: Wound dehiscence left knee Postoperative diagnosis: Same Operative procedure: Irrigation debridement left knee with arthrotomy Surgeon: Margarita Anesthesia: General Estimated blood loss: Less than 100 cc Complications: None Operative indications: Please see my dictated orthopedic consult for detailed operative indications, note that patient had undergone irrigation debridement with polyethylene exchange after reimplantation of his total knee arthroplasty as he had some persistent drainage with negative cultures and a positive SynovaSure alpha defensin test and excellent closure was achieved. He was started on empiric antibiotics and remained with a wound VAC and boundary layer that initially exhibited no drainage. Although he was told to really take it easy on his activity he indicated that the knee felt so good that he got up and around on it a lot and was cleaning around the house and outside apparently and on that next Tuesday had very severe swelling of the knee sutures had gapped open somewhat distally and he had developed more drainage. Initially this was treated with a wound VAC and on the day I was to reassess him in the wound care clinic he had developed nausea and vomiting and was admitted through the emergency department. I had gone over with him my concern with the open wound potentially increasing his risk for persistent infection and my recommendation for surgical exploration. He agrees to proceed with that pending correction of his hypokalemia. Operative text: Patient was identified procedure verified patient placed in the supine position on the operating table. After adequate amounts of general anesthesia were administered the left knee was prepped and draped in the standard sterile fashion with a thigh tourniquet. After timeout was performed patient procedure identified and verified a midline incision was extended superiorly to the gapped open wound distally. There was no evidence of gross compromise of the retinacular closure but he did have somewhat of a knee effusion the area outside the retinaculum was thoroughly debrided of some proteinaceous material and I prepped the superior laterally with a ChloraPrep and aspirated the knee joint. Joint fluid appeared to be slightly hemosiderin tinged more so than any cloudiness but it was sent over for aerobic anaerobic cultures Gram stain and cell count intraoperatively. Given the possibility of contamination I elected to perform an arthrotomy and no gross involvement was noted intra-articular nevertheless the polyethylene was dislodged and thorough irrigation was carried out with pulse lavage containing 2 L of bactisure followed by a total of 3 L of normal saline solution. Polyethylene was reinserted and locked and arthrotomy was closed with a total of two #1 PDS sutures running from each direction. Bleeding points controlled by electrocautery and meticulous skin closure after additional thorough irrigation accomplished with 2-0 and 3-0 nylon suture in a vertical mattress fashion to achieve skin eversion which was assisted by some tension relieving #2 nylon trauma sutures that were later removed after the mattress sutures achieved closure. A wound VAC was placed with a boundary layer and achieved excellent suction. A postoperative hinged brace was locked in extension and placed on the leg and patient was returned to recovery room in stable condition having tolerated the procedure well THEE GOMEZ MD Jul 29, 2019 11:24
--- NOTE | 2019-07-29 11:26 | PDOC ---
PROGRESS NOTES Subjective Subjective Problems overnight: Getting up and around well, has minimal pain Objective Vital Signs Vital Signs Date Time Temp Pulse Resp B/P (MAP) Pulse Ox O2 Delivery O2 Flow Rate FiO2 07/29/19 08:51 77 153/83 07/29/19 07:00 97.6 18 97 Room Air 97.6 07/28/19 10:50 8 Physical Exam Wound VAC intact and very minimal drainage, distal neurovascular status intact Labs Laboratory Tests Test 07/27/19 16:20 07/27/19 16:30 07/27/19 20:59 07/28/19 05:40 Potassium Level 2.8 mmol/L (3.5-5.1) 3.4 mmol/L (3.5-5.1) Magnesium Level 1.7 mg/dL (1.8-2.4) [place] Level < 0.2 mmol/L (0.6-1.2) [place] Last Dose Date 07/26/19 [place] Last Dose Time 0900 Glucose (Fingerstick) 160 mg/dL (70-99) 164 mg/dL (70-99) Sodium Level 142 mmol/L (136-145) [place] Level 106 mmol/L (98-107) Carbon Dioxide Level 24 mmol/L (21-32) Anion Gap 12 (6-14) Blood Urea Nitrogen 3 mg/dL (8-26) Creatinine 0.9 mg/dL (0.7-1.3) Estimated GFR (Cockcroft-Gault) 89.3 Glucose Level 181 mg/dL (70-99) Calcium Level 8.5 mg/dL (8.5-10.1) Test 07/28/19 07:45 07/28/19 09:18 07/28/19 10:56 07/28/19 11:50 Glucose (Fingerstick) 196 mg/dL (70-99) 197 mg/dL (70-99) 195 mg/dL (70-99) Body Fluid Source Synovial Body Fluid Color Red Body Fluid Clarity Cloudy Body Fluid Nucleated Cells 9750 /cmm (Not Established) Body Fluid Polymorphonuclear Cells 100 % Body Fluid Total RBCs Counted 833410 /cmm (Not Test 07/28/19 16:32 07/28/19 20:53 07/29/19 08:48 07/29/19 09:05 Glucose (Fingerstick) 252 mg/dL (70-99) 153 mg/dL (70-99) 150 mg/dL (70-99) Vancomycin Level Trough 12.8 mcg/mL (10.0-20.0) Vancomycin Last Dose Date 07/28/19 Vancomycin Last Dose Time 2100 Laboratory Tests Test 07/28/19 11:50 07/28/19 16:32 07/28/19 20:53 07/29/19 08:48 Glucose (Fingerstick) 195 mg/dL (70-99) 252 mg/dL (70-99) 153 mg/dL (70-99) 150 mg/dL (70-99) Test 07/29/19 09:05 Vancomycin Level Trough 12.8 mcg/mL (10.0-20.0) Vancomycin Last Dose Date 07/28/19 Vancomycin Last Dose Time 2100 Assessment Assessment POD#1 irrigation debridement exploration left knee Plan Plan of Care Continue antibiotics per infectious disease Weightbearing as tolerated with knees locked in extension I emphasized again to the patient that we want him up and around for basic acti vities but otherwise elevation and rest to minimize swelling and allow the wound to heal without significant additional stress THEE GOMEZ MD Jul 29, 2019 11:26
--- NOTE | 2019-07-29 11:53 | PDOC ---
Infectious Disease Note Subjective Subjective Patient is walking with a walker, bearing weight as tolerated Denies pain/fever/chills Ate 75% breakfast ROS ROS per HPI Vital Sign Vital Signs Vital Signs Date Time Temp Pulse Resp B/P (MAP) Pulse Ox O2 Delivery O2 Flow Rate FiO2 07/29/19 08:51 77 153/83 07/29/19 07:00 97.6 18 97 Room Air 97.6 07/28/19 10:50 8 Physical Exam PHYSICAL EXAM GENERAL: walking back to bed HENMT: SEVERIANO, Oral cavity clear, no thrush NECK: Supple LINGS: CTAB HEART: S1, S2 ABDOMEN: Obese, soft, nontender, bowel sounds present EXT: Unremarkable. Wound vac left knee with hinge brace in place. SKIN: Warm to touch. 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 Intra-op cultures pending h/o left TKA suspected infection, had mechanical defect in fascia s/p I and D 07/11 - cults neg report Invosure was +. h/o left knee revision arthtoplasty 06/05 cults negative -Status post 06/05/2019 removal of antibiotic spacer. Operative reduction and internal fixation of lateral epicondyle fracture and insertion of stemmed tibial and femoral components with reimplantation resurfacing patellar component, culture s neg h/o left knee prosthetic joint infection. Synovial cultures positive MRSE, 03/07/2019, (tetracycline-R) and swab cultures on 03/11/2019 grew Enterobacter faecalis, ampicillin sensitive. s/p explantation on 03/13/2019. Com[pleted 6 weeks IV vancomycin and ampicillin. Last dose was on 04/25/2019. h/o wound dehiscence with wound VAC management up until approximately the end of 04/2019 through wound team with excoriation due to allergic component from wound dressing resolved prior to admission. History of fall with dislocation of the patellar component of left knee arthroplasty from the posterior aspect of patella on 02/11/2019 Left total knee arthroplasty in 01/2018. Status post 08/22/2018, incision and drainage on 09/19/2018 with polyethylene exchange. Cultures from 09/2018 remain negative including acid-fast bacilli, fungal. Abx intolerance to daptomycin h/o MRSA in nares Diabetes. Bipolar disorder. Anemia. Obstructive sleep apnea. Hypertension. Osteoarthritis. Plan Plan of Care vanc and Zosyn Monitor renal function closely Last trough 12.8 on 07/28. Probiotics f/u intra-op cultures fom 07/27 Supportive care [facility] has records and in process of review per Mr. Reyes and he is awaiting appt D/w Dr. Avila No F/c/s/n/V/D/SOA/rash Line ok. Appetite ok Feeling better. Min pain. op note reviewed. Cults pending. pharmacy managing abx F/u labs Attending Co-Sign Attending Co-Sign The patient was seen and interviewed as well as examined at the bedside. The chart was reviewed. The case was discussed. Agree with the plan of care. NICOLE YOUNG APRN Jul 29, 2019 11:53 VELIA NATH MD Jul 29, 2019 15:40
[2019-07-29] MEDS ORDERED: ONDANSETRON ODT 4 MG TAB.RAPDIS. PO PRN (12:00)
--- NOTE | 2019-07-29 12:24 | PDOC ---
PROGRESS NOTES Chief Complaint Chief Complaint A/P: Intractable nausea and vomiting - requiring IV antiemetics. Will continue Hypokalemia - will replace Hypomagnesemia will replace Anxiety, Bipolar, Depression - will check lithium level given his potassium level and cont meds Diabetes-Type II - basal bolus insulin while inpatient Hypertension - cont lisinopril Chronic back pain - will cont meds Left knee pain - s/p TKR, now with need for likely repeat revision. Patient has had multiple procedures as follows: h/o left TKA suspected infection, had mechanical defect in fascia s/p I and D 07/11 - cults neg report Invosure was +. h/o left knee revision arthtoplasty 06/05 cults negative -Status post 06/05/2019 removal of antibiotic spacer. Operative reduction and internal fixation of lateral epicondyle fracture and insertion of stemmed tibial and femoral components with reimplantation resurfacing patellar component, cultures neg h/o left knee prosthetic joint infection. Synovial cultures positive MRSE, 03/07/2019, (tetracycline-R) and swab cultures on 03/11/2019 grew Enterobacter faecalis, ampicillin sensitive. s/p explantation on 03/13/2019. Com[pleted 6 weeks IV vancomycin and ampicillin. Last dose was on 04/25/2019. h/o wound dehiscence with wound VAC management up until approximately the end of 04/2019 through wound team with excoriation due to allergic component from wound dressing resolved prior to admission. History of fall with dislocation of the patellar component of left knee arthroplasty from the posterior aspect of patella on 02/11/2019 Left total knee arthroplasty in 01/2018. Status post 08/22/2018, incision and drainage on 09/19/2018 with polyethylene exchange. Cultures from 09/2018 remain negative including acid-fast bacilli, fungal. Plan: follow recommendations from ID senior wind energy consultant regarding antibiotic therapy FEN - ADA PPX - lovenox FULL CODE Dispo - inpatient History of Present Illness History of Present Illness No acute events reported overnight, case discussed with nursing staff patient in no acute distress no complaints during my visit Vitals Vitals Vital Signs Date Time Temp Pulse Resp B/P (MAP) Pulse Ox O2 Delivery O2 Flow Rate FiO2 07/29/19 08:51 77 153/83 07/29/19 07:00 97.6 18 97 Room Air 97.6 07/28/19 10:50 8 Physical Exam Physical Exam GENERAL: walking back to bed HENMT: SEVERIANO, Oral cavity clear, no thrush NECK: Supple LINGS: CTAB HEART: S1, S2 ABDOMEN: Obese, soft, nontender, bowel sounds present EXT: Unremarkable. Wound vac left knee with hinge brace in place. SKIN: Warm to touch. 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 and oriented x 3 Right chest CVC without signs of complications General: Alert, Oriented X3, Cooperative, No acute distress Lungs: Clear Abdomen: Normal bowel sounds, Soft, No tenderness, No hepatosplenomegaly, No masses Extremities: No clubbing, No cyanosis, No edema, Normal pulses Skin: Other (Left knee with fluid) Labs LABS Laboratory Tests Test 07/28/19 16:32 07/28/19 20:53 07/29/19 08:48 07/29/19 09:05 Glucose (Fingerstick) 252 mg/dL (70-99) 153 mg/dL (70-99) 150 mg/dL (70-99) Vancomycin Level Trough 12.8 mcg/mL (10.0-20.0) Vancomycin Last Dose Date 07/28/19 Vancomycin Last Dose Time 2100 Test 07/29/19 11:28 Glucose (Fingerstick) 141 mg/dL (70-99) Assessment and Plan Assessmemt and Plan Problems Medical Problems: (1) Hypokalemia Status: Acute (2) Infection of prosthetic left knee joint Status: Acute (3) Nausea & vomiting Status: Acute Comment Review of Relevant I have reviewed the following items blaze (where applicable) has been applied. Labs Laboratory Tests Test 07/27/19 16:20 07/27/19 16:30 07/27/19 20:59 07/28/19 05:40 Potassium Level 2.8 mmol/L (3.5-5.1) 3.4 mmol/L (3.5-5.1) Magnesium Level 1.7 mg/dL (1.8-2.4) Shelton Level < 0.2 mmol/L (0.6-1.2) Shelton Last Dose Date 07/26/19 Shelton Last Dose Time 0900 Glucose (Fingerstick) 160 mg/dL (70-99) 164 mg/dL (70-99) Sodium Level 142 mmol/L (136-145) Chloride Level 106 mmol/L (98-107) Carbon Dioxide Level 24 mmol/L (21-32) Anion Gap 12 (6-14) Blood Urea Nitrogen 3 mg/dL (8-26) Creatinine 0.9 mg/dL (0.7-1.3) Estimated GFR (Cockcroft-Gault) 89.3 Glucose Level 181 mg/dL (70-99) Calcium Level 8.5 mg/dL (8.5-10.1) Test 07/28/19 07:45 07/28/19 09:18 07/28/19 10:56 07/28/19 11:50 Glucose (Fingerstick) 196 mg/dL (70-99) 197 mg/dL (70-99) 195 mg/dL (70-99) Body Fluid Source Synovial Body Fluid Color Red Body Fluid Clarity Cloudy Body Fluid Nucleated Cells 9750 /cmm (Not Established) Body Fluid Polymorphonuclear Cells 100 % Body Fluid Total RBCs Counted 121741 /cmm (Not Test 07/28/19 16:32 07/28/19 20:53 07/29/19 08:48 07/29/19 09:05 Glucose (Fingerstick) 252 mg/dL (70-99) 153 mg/dL (70-99) 150 mg/dL (70-99) Vancomycin Level Trough 12.8 mcg/mL (10.0-20.0) Vancomycin Last Dose Date 07/28/19 Vancomycin Last Dose Time 2100 Test 07/29/19 11:28 Glucose (Fingerstick) 141 mg/dL (70-99) Laboratory Tests Test 07/28/19 16:32 07/28/19 20:53 07/29/19 08:48 07/29/19 09:05 Glucose (Fingerstick) 252 mg/dL (70-99) 153 mg/dL (70-99) 150 mg/dL (70-99) Vancomycin Level Trough 12.8 mcg/mL (10.0-20.0) Vancomycin Last Dose Date 07/28/19 Vancomycin Last Dose Time 2100 Test 07/29/19 11:28 Glucose (Fingerstick) 141 mg/dL (70-99) Medications Current Medications Ondansetron HCl (Zofran) 8 mg 1X ONCE IVP Last administered on 07/27/19at 08:58; Start 07/27/19 at 09:15; Stop 07/27/19 at 09:16; Status DC Potassium Chloride (Klor-Con) 80 meq 1X ONCE PO Last administered on 07/27/19at 10:09; Start 07/27/19 at 10:15; Stop 07/27/19 at 10:16; Status DC Metoclopramide HCl (Reglan Vial) 10 mg 1X ONCE IVP Last administered on 07/27/19at 10:17; Start 07/27/19 at 10:15; Stop 07/27/19 at 10:16; Status DC Ondansetron HCl (Zofran) 4 mg PRN Q8HRS PRN IV NAUSEA/VOMITING Last administered on 07/27/19at 13:39; Start 07/27/19 at 11:15; Stop 07/27/19 at 14:32; Status DC Potassium Chloride/Dextrose/ Sod Cl 1,000 ml @ 80 mls/hr 1X ONCE IV Last administered on 07/27/19at 13:41; Start 07/27/19 at 11:15; Stop 07/27/19 at 23:45; Status DC Ondansetron HCl (Zofran) 4 mg PRN Q4HRS PRN IV NAUSEA/VOMITING, 1ST CHOICE; Start 07/27/19 at 14:30; Status Cancel Lisinopril (Prinivil) 5 mg DAILY PO Last administered on 07/29/19at 08:51; Start 07/28/19 at 09:00 Oxycodone/ Acetaminophen (Percocet 7.5/ 325) 1 tab PRN Q6HRS PRN PO PAIN Last administered on 07/28/19at 12:29; Start 07/27/19 at 14:30; Stop 07/28/19 at 15:50; Status DC Doxepin HCl (SINEquan) 300 mg QHS PO Last administered on 07/27/19at 22:15; Start 07/27/19 at 21:00; Stop 07/28/19 at 16:11; Status DC Insulin Human Lispro (HumaLOG) 0-7 UNITS TIDACHC SQ Last administered on 07/28/19at 17:06; Start 07/27/19 at 16:30 Dextrose (Dextrose 50%-Water Syringe) 12.5 gm PRN Q15MIN PRN IV SEE COMMENTS; Start 07/27/19 at 14:30 Clonazepam (KlonoPIN) 1 mg PRN Q12HRS PRN PO ANXIETY / AGITATION; Start 07/27/19 at 15:45 [place] Carbonate (Lithobid) 300 mg BID PO Last administered on 07/29/19at 08:50; Start 07/27/19 at 21:00 Tizanidine HCl (Zanaflex) 4 mg PRN Q6HRS PRN PO MUSCLE SPASMS Last administered on 07/29/19at 02:37; Start 07/27/19 at 15:45 Enoxaparin Sodium (Lovenox 40mg Syringe) 40 mg Q24H SQ Last administered on 07/28/19at 16:57; Start 07/28/19 at 16:00 Alteplase, Recombinant (Cathflo For Central Catheter Clearance) 1 mg 1X ONCE INT CAT ; Start 07/27/19 at 16:30; Stop 07/27/19 at 16:31; Status DC Metoclopramide HCl (Reglan Vial) 5 mg PRN Q6HRS PRN IVP NAUSEA/VOMITING, 2ND CHOICE; Start 07/27/19 at 16:30 Magnesium Sulfate 50 ml @ 25 mls/hr 1X ONCE IV Last administered on 07/27/19at 17:55; Start 07/27/19 at 18:00; Stop 07/27/19 at 19:59; Status DC Potassium Chloride (Klor-Con) 40 meq 1X ONCE PO Last administered on 07/27/19at 18:29; Start 07/27/19 at 17:30; Stop 07/27/19 at 17:31; Status DC Potassium Chloride (Klor-Con) 20 meq DAILYWBKFT PO Last administered on 07/29/19at 08:51; Start 07/28/19 at 08:00 Potassium Chloride/Water 100 ml @ 100 mls/hr Q1H IV Last administered on 07/27/19at 19:14; Start 07/27/19 at 18:00; Stop 07/27/19 at 19:59; Status DC Non-Formulary Medication (Piperacillin Sodium/Tazobactam (Piperacil-Tazobact 4.5 Gm Vial)) 4.5 gm TID IV ; Start 07/27/19 at 21:00; Status UNV Non-Formulary Medication (Vancomycin In Dextrose,Iso-Osm (Vancomycin 750 Mg/150 Ml Bag)) 750 mg BID IV ; Start 07/27/19 at 21:00; Status UNV Piperacillin Sod/ Tazobactam Sod (Zosyn Per Pharmacy) 1 each PRN DAILY PRN MC SEE COMMENTS; Start 07/27/19 at 18:45 Vancomycin HCl (Vanco Per Pharmacy) 1 each PRN DAILY PRN MC SEE COMMENTS Last administered on 07/29/19at 09:55; Start 07/27/19 at 18:45 Piperacillin Sod/ Tazobactam Sod 3.375 gm/Sodium Chloride 50 ml @ 100 mls/hr Q6HRS IV Last administered on 07/29/19at 05:52; Start 07/28/19 at 00:00 Vancomycin HCl 750 mg/Sodium Chloride 250 ml @ 250 mls/hr Q12H IV Last administered on 07/28/19at 21:25; Start 07/27/19 at 21:00 Vancomycin HCl (Vancomycin Trough Level) 1 each 1X ONCE MC ; Start 07/29/19 at 08:30; Stop 07/29/19 at 08:31; Status DC Propofol 20 ml @ As Directed STK-MED ONCE IV ; Start 07/28/19 at 06:47; Stop 07/28/19 at 06:48; Status DC Lidocaine HCl (Lidocaine Pf 2% Vial) 5 ml STK-MED ONCE .ROUTE ; Start 07/28/19 at 06:47; Stop 07/28/19 at 06:48; Status DC Vancomycin HCl (Vancomycin) 1 gm STK-MED ONCE .ROUTE Last administered on 07/28/19at 09:35; Start 07/28/19 at 09:30; Stop 07/28/19 at 09:31; Status DC Magnesium Sulfate 100 ml @ 25 mls/hr 1X ONCE IV Last administered on 07/28/19at 16:56; Start 07/28/19 at 09:30; Stop 07/28/19 at 13:29; Status DC Potassium Chloride/Water 100 ml @ 50 mls/hr 1X ONCE IV Last administered on 07/28/19at 12:30; Start 07/28/19 at 09:30; Stop 07/28/19 at 11:29; Status DC Lactobacillus Rhamnosus (Culturelle) 1 cap BID PO Last administered on 07/29/19at 08:50; Start 07/28/19 at 21:00 Morphine Sulfate (Morphine Sulfate) 2 mg PRN Q1HR PRN IVP PAIN; Start 07/28/19 at 15:45 Fentanyl Citrate (Fentanyl 2ml Vial) 25 mcg PRN Q1HR PRN IVP PAIN, 2nd CHOICE; Start 07/28/19 at 15:45 Diphenhydramine HCl (Benadryl) 25 mg PRN Q6HRS PRN IVP ITCHING; Start 07/28/19 at 15:45 Multivitamins (Thera M Plus) 1 tab DAILY PO Last administered on 07/29/19at 08:50; Start 07/29/19 at 09:00 Senna/Docusate Sodium (Senna Plus) 1 tab DAILY PO Last administered on 07/29/19at 08:51; Start 07/29/19 at 09:00 Ferrous Sulfate (Feosol) 325 mg BIDWMEALS PO Last administered on 07/29/19at 08:50; Start 07/28/19 at 17:00 Sodium Chloride 1,000 ml @ 40 mls/hr Q24H IV ; Start 07/28/19 at 15:37 Magnesium Hydroxide (Milk Of Magnesia) 2,400 mg 1X PRN PRN PO CONSTIPATION; Start 07/29/19 at 06:00; Stop 07/30/19 at 05:59 Bisacodyl (Dulcolax Supp) 10 mg 1X PRN PRN NE CONSTIPATION; Start 07/29/19 at 16:00; Stop 07/30/19 at 15:59 Zolpidem Tartrate (Ambien) 5 mg PRN QHS PRN PO INSOMNIA, MAY REPEAT IN 1HR; Start 07/28/19 at 15:45 Calcium Carbonate/ Glycine (Tums) 500 mg PRN QID PRN PO INDIGESTION; Start 07/28/19 at 15:45 Sodium Chloride (Normal Saline Flush) 10 ml QSHIFT PRN IV AFTER MEDS AND BLOOD DRAWS; Start 07/28/19 at 15:45 Acetaminophen (Tylenol) 1,000 mg Q6H PO Last administered on 07/29/19at 08:51; Start 07/29/19 at 09:00 Ondansetron HCl (Zofran) 4 mg Q6HRS IVP ; Start 07/28/19 at 18:00; Stop 07/29/19 at 12:01; Status DC Ondansetron HCl (Zofran Odt) 4 mg Q6HRS PO ; Start 07/28/19 at 18:00; Stop 07/29/19 at 12:01; Status DC Ondansetron HCl (Zofran) 4 mg PRN Q6HRS PRN IVP Nausea/vomiting, 1st choice; Start 07/29/19 at 12:00 Ondansetron HCl (Zofran Odt) 4 mg PRN Q6HRS PRN PO Nausea/vomiting, 1st choice; Start 07/29/19 at 12:00 Oxycodone HCl (Roxicodone) 5 mg PRN Q4HRS PRN PO Pain score 4-6; Start 07/28/19 at 15:45 Oxycodone HCl (Roxicodone) 10 mg PRN Q4HRS PRN PO Pain score 7-10 Last administered on 07/29/19at 02:53; Start 07/28/19 at 15:45 Dextrose (Dextrose 50%-Water Syringe) 12.5 gm PRN Q15MIN PRN IV SEE COMMENTS; Start 07/28/19 at 15:45; Status Cancel Non-Formulary Medication 2 ea QHS PO Last administered on 07/28/19at 21:29; Start 07/28/19 at 16:11 Active Scripts Active Reported Piperacil-Tazobact 4.5 Gm Vial (Piperacillin Sodium/Tazobactam) 4.5 Gm Vial.port 4.5 Gm IV TID Vancomycin 750 Mg/150 Ml Bag (Vancomycin In Dextrose,Iso-Osm) 750 Mg/150 Ml Froz.piggy 750 Mg IV BID Lidocaine PATCH (Lidocaine) 1 Each Adh..patch 1 Each TP DAILY REMOVE AFTER 12 HOURS Lisinopril 5 Mg Tablet 1 Tab PO DAILY Percocet 7.5-325 Mg Tablet (Oxycodone/Acetaminophen) 1 Each Tablet 1 Tab PO PRN Q6HRS PRN Clonazepam 1 Mg Tablet 1 Mg PO BID Shelton Carbonate 300 Mg Tablet 1 Tab PO BID Zanaflex (Tizanidine Hcl) 4 Mg Capsule 1 Cap PO TID PRN Janumet 50-1,000 Mg Tablet (Sitagliptin Phos/Metformin Hcl) 1 Each Tablet 1 Tab PO BID Doxepin Hcl 50 Mg Capsule 300 Mg PO HS Vitals/I & O Vital Sign - Last 24 Hours 07/28/19 07/28/19 07/28/1918/20 12:29 12:30 13:00 13:29 Temp 97.6 97.4 97.6 97.4 Pulse 80 72 Resp 16 16 B/P (MAP) 151/93 (112) 156/92 (113) Pulse Ox 100 99 100 O2 Delivery Room Air Room Air Room Air Room Air 07/28/19 07/28/19 07/28/19 07/28/19 13:30 13:30 14:30 15:17 Temp 97.2 98.2 97.9 98.2 97.2 98.2 97.9 98.2 Pulse 76 76 69 68 Resp 16 16 14 16 B/P (MAP) 150/86 (107) 150/86 (107) 141/90 (107) 148/82 (104) Pulse Ox 99 99 100 99 O2 Delivery Room Air Room Air Room Air Room Air 07/28/19 07/28/19 07/28/19 07/28/19 15:31 18:46 19:00 19:50 Temp 97.9 97.9 97.9 97.9 Pulse 68 82 Resp 14 18 B/P (MAP) 150/86 (107) 124/72 (89) Pulse Ox 100 94 O2 Delivery Room Air Room Air Room Air Room Air 07/28/19 07/28/19 07/28/19 07/28/19 22:51 22:55 23:00 23:51 Temp 97.9 97.9 Pulse 71 Resp 18 B/P (MAP) 167/92 (117) Pulse Ox 94 O2 Delivery Room Air Room Air Room Air Room Air 07/29/19 07/29/19 07/29/19 07/29/19 02:53 03:00 07:00 08:51 Temp 97.9 97.6 97.9 97.6 Pulse 77 77 77 Resp 18 18 B/P (MAP) 153/83 (106) 148/93 (111) 153/83 Pulse Ox 93 97 O2 Delivery Room Air Room Air Room Air Intake and Output 07/28/19 07/28/19 07/29/19 14:59 22:59 06:59 Intake Total 200 ml 560 ml Output Total 100 ml 250 ml Balance 100 ml 560 ml -250 ml JACOB PAYNE MD Jul 29, 2019 12:23
[2019-07-29] MEDS: VANCOMYCIN 750 MG in IV NORMAL SALINE 250ML 250 ML IV SCH ×2 (12:40→21:11)
[2019-07-29 15:00] VITALS: BP 144/84
[2019-07-29] MEDS ORDERED: BISACODYL 10 MG SUPP.RECT. PR PRN (16:00)
[2019-07-29] MEDS: ENOXAPARIN 40 MG/0.4 ML SYRINGE. SQ SCH (17:10)
[2019-07-29] MEDS: ONDANSETRON PF 4 MG/2 ML VIAL. IVP PRN ×2 (17:14→21:29)
[2019-07-29 19:00] VITALS: BP 157/78
[2019-07-29] MEDS: DOXEPIN 150 MG PO SCH (21:15)
[2019-07-29 23:00] VITALS: BP 139/79
[2019-07-30] MEDS: oxyCODONE IR 5 MG TABLET PO PRN ×3 (02:19→11:26)
[2019-07-30 03:00] VITALS: BP 154/84
[2019-07-30] MEDS: PIPERACILLIN/TAZOBACTAM 3.375 GM in IV NORMAL SALINE 50ML 50 ML IV SCH ×2 (06:29→11:21)
[2019-07-30] MEDS: ACETAMINOPHEN 650 MG/20.3 ML SOLUTION. PO SCH ×2 (06:30→11:23)
[2019-07-30 06:58] LABS: BASO # 0.1 x10^3/uL (0.0-0.2); BASO % 1 % (0-3); EOS # 0.3 x10^3/uL (0.0-0.7); EOS % 5 % (0-3); HEMATOCRIT 23.2 % (39.0-53.0); HEMOGLOBIN 7.3 g/dL (13.0-17.5); LYMPH # 1.6 x10^3/uL (1.0-4.8); LYMPH % 30 % (24-48); MEAN CORPUSCULAR HEMOGLOBIN 23 pg (25-35); MEAN CORPUSCULAR HGB CONC 32 g/dL (31-37); MEAN CORPUSCULAR VOLUME 73 fL (79-100); MONO # 0.4 x10^3/uL (0.0-1.1); MONO % 8 % (0-9); NEUT % 55 % (31-73); PLATELET COUNT 336 x10^3/uL (140-400); RED BLOOD COUNT 3.18 x10^6/uL (4.30-5.70); RED CELL DISTRIBUTION WIDTH 18.1 % (11.5-14.5); WHITE BLOOD COUNT 5.4 x10^3/uL (4.0-11.0)
[2019-07-30 07:00] VITALS: BP 167/89
[2019-07-30 07:06] LABS: CREATININE 1.1 mg/dL (0.7-1.3); GFR 70.9
[2019-07-30] MEDS: INSULIN LISPRO 300 UNITS/3 ML VIAL. SQ SCH ×2 (07:30→11:21)
[2019-07-30] MEDS: POTASSIUM CHLORIDE 20 MEQ TABLET.ER. PO SCH (07:56)
[2019-07-30] MEDS: LITHIUM CARBONATE ER 300 MG TABLET.ER PO SCH (07:56)
[2019-07-30] MEDS: LISINOPRIL 5 MG TABLET. PO SCH (07:57)
[2019-07-30] MEDS: MULTIVITAMIN with MINERAL TABLET. PO SCH (07:57)
[2019-07-30] MEDS: FERROUS SULFATE 325 MG TABLET. PO SCH (07:57)
[2019-07-30] MEDS: LACTOBACILLUS RHAMNOSUS GG 1 CAPSULE. PO SCH (07:57)
[2019-07-30] MEDS: tiZANidine 4 MG TABLET. PO PRN (08:01)
[2019-07-30] MEDS: SENNOSIDES/DOCUSATE 8.6/50MG TABLET. PO SCH (08:41)
[2019-07-30] MEDS: VANCOMYCIN 750 MG in IV NORMAL SALINE 250ML 250 ML IV SCH (08:41)
--- NOTE | 2019-07-30 09:53 | PDOC ---
Infectious Disease Note Subjective Subjective Patient is walking with a walker, bearing weight as tolerated Denies pain/fever/chills ROS ROS no n/v//d Vital Sign Vital Signs Vital Signs Date Time Temp Pulse Resp B/P (MAP) Pulse Ox O2 Delivery O2 Flow Rate FiO2 07/30/19 08:00 Room Air 07/30/19 07:57 69 167/89 07/30/19 07:31 100 07/30/19 07:00 97.8 16 97.8 Physical Exam PHYSICAL EXAM GENERAL: walking back to bed HENMT: SEVERIANO, Oral cavity clear, no thrush NECK: Supple LINGS: CTAB HEART: S1, S2 ABDOMEN: Obese, soft, nontender, bowel sounds present EXT: Unremarkable. Wound vac left knee with hinge brace in place. SKIN: Warm to touch. 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 x 3 Right chest CVC without signs of complications Labs Lab Laboratory Tests Test 07/29/19 11:28 07/29/19 17:21 07/29/19 20:31 07/30/19 06:38 Glucose (Fingerstick) 141 mg/dL (70-99) 140 mg/dL (70-99) 118 mg/dL (70-99) White Blood Count 5.4 x10^3/uL (4.0-11.0) Red Blood Count 3.18 x10^6/uL (4.30-5.70) Hemoglobin 7.3 g/dL (13.0-17.5) Hematocrit 23.2 % (39.0-53.0) Mean Corpuscular Volume 73 fL (79-100) Mean Corpuscular Hemoglobin 23 pg (25-35) Mean Corpuscular Hemoglobin Concent 32 g/dL (31-37) Red Cell Distribution Width 18.1 % (11.5-14.5) Platelet Count 336 x10^3/uL (140-400) Neutrophils (%) (Auto) 55 % (31-73) Lymphocytes (%) (Auto) 30 % (24-48) Monocytes (%) (Auto) 8 % (0-9) Eosinophils (%) (Auto) 5 % (0-3) Basophils (%) (Auto) 1 % (0-3) Neutrophils # (Auto) 3.0 x10^3/uL (1.8-7.7) Lymphocytes # (Auto) 1.6 x10^3/uL (1.0-4.8) Monocytes # (Auto) 0.4 x10^3/uL (0.0-1.1) Eosinophils # (Auto) 0.3 x10^3/uL (0.0-0.7) Basophils # (Auto) 0.1 x10^3/uL (0.0-0.2) Creatinine 1.1 mg/dL (0.7-1.3) Estimated GFR (Cockcroft-Gault) 70.9 Test 07/30/19 06:47 Glucose (Fingerstick) 134 mg/dL (70-99) Micro culture neg so far culture neg from 07/11 surgery, pt did have coag neg staph from out side culture Dr Avila send it from his office even though PCR (? ) was neg Objective Assessment N/V - better Developed increase pain, swelling and leakage after spending time on feet cleaning s/p irrigation, debridement & exploration on 07/27. Intra-op cultures pending h/o left TKA suspected infection, had mechanical defect in fascia s/p I and D 07/11 - cults neg report Invosure was +. h/o left knee revision arthtoplasty 06/05 cults negative -Status post 06/05/2019 removal of antibiotic spacer. Operative reduction and internal fixation of lateral epicondyle fracture and insertion of stemmed tibial and femoral components with reimplantation resurfacing patellar component, cultures neg h/o left knee prosthetic joint infection. Synovial cultures positive MRSE, 03/07/2019, (tetracycline-R) and swab cultures on 03/11/2019 grew Enterobacter faecalis, ampicillin sensitive. s/p explantation on 03/13/2019. Com[pleted 6 weeks IV vancomycin and am picillin. Last dose was on 04/25/2019. h/o wound dehiscence with wound VAC management up until approximately the end of 04/2019 through wound team with excoriation due to allergic component from wound dressing resolved prior to admission. History of fall with dislocation of the patellar component of left knee arthroplasty from the posterior aspect of patella on 02/11/2019 Left total knee arthroplasty in 01/2018. Status post 08/22/2018, incision and drainage on 09/19/2018 with polyethylene exchange. Cultures from 09/2018 remain negative including acid-fast bacilli, fungal. Abx intolerance to daptomycin h/o MRSA in nares Diabetes. Bipolar disorder. Anemia. Obstructive sleep apnea. Hypertension. Osteoarthritis. Plan Plan of Care vanc and Zosyn Monitor renal function closely Last trough 12.8 on 07/28. Probiotics f/u intra-op cultures fom 07/27 [facility] has records and in process of review per Mr. Reyes and he is awaiting appt again in detail discussion done with pt about his knee, multiple surgeries, culture neg at least here, with coag neg staph at out side lab from Dr De La Rosa office [facility] is pending, pt need that, bad out come ie amputation is possible also antibiotics related complications and picc related complications discussed in detail iv antibiotics 6 wks from 07/11, unless culture is positive from 07/27 and then chronic suppression RUTH DOUGLASS MD Jul 30, 2019 09:52
[2019-07-30 11:00] VITALS: BP 125/79
[2019-07-30] MEDS: VANCOMYCIN PER PHARMACY MC PRN (11:27)
--- NOTE | 2019-07-30 12:35 | PDOC ---
[facility] PROGRESS NOTE Chief Complaint Chief Complaint Intractable nausea and vomiting - requiring IV antiemetics. Will continue Hypokalemia - will replace Hypomagnesemia will replace Anxiety, Bipolar, Depression - will check lithium level given his potassium level and cont meds Diabetes-Type II - basal bolus insulin while inpatient Hypertension - cont lisinopril Chronic back pain - will cont meds Left knee pain - s/p TKR, now with need for likely repeat revision. Patient has had multiple procedures as follows: h/o left TKA suspected infection, had mechanical defect in fascia s/p I and D 07/11 - cults neg report Invosure was +. h/o left knee revision arthtoplasty 06/05 cults negative -Status post 06/05/2019 removal of antibiotic spacer. Operative reduction and internal fixation of lateral epicondyle fracture and insertion of stemmed tibial and femoral components with reimplantation resurfacing patellar component, cultures neg h/o left knee prosthetic joint infection. Synovial cultures positive MRSE, 03/07/2019, (tetracycline-R) and swab cultures on 03/11/2019 grew Enterobacter faecalis, ampicillin sensitive. s/p explantation on 03/13/2019. Com[pleted 6 weeks IV vancomycin and ampicillin. Last dose was on 04/25/2019. h/o wound dehiscence with wound VAC management up until approximately the end of 04/2019 through wound team with excoriation due to allergic component from wound dressing resolved prior to admission. History of fall with dislocation of the patellar component of left knee arthroplasty from the posterior aspect of patella on 02/11/2019 Left total knee arthroplasty in 01/2018. Status post 08/22/2018, incision and drainage on 09/19/2018 with polyethylene exchange. Cultures from 09/2018 remain negative including acid-fast bacilli, fungal. Plan: follow recommendations from ID workforce consultant regarding antibiotic therapy FEN - ADA PPX - lovenox FULL CODE Dispo - inpatient History of Present Illness History of Present Illness 07-30-2019 Patient seen and examined Currently getting IV vancomycin Has a wound VAC Has a brace on the right knee as well No acute events reported overnight, case discussed with nursing staff patient in no acute distress no complaints during my visit Vitals/I&O Vitals/I&O: Vital Signs Date Time Temp Pulse Resp B/P (MAP) Pulse Ox O2 Delivery O2 Flow Rate FiO2 07/30/19 11:26 100 Room Air 07/30/19 11:00 97.5 56 17 125/79 (94) 97.5 I & O 07/29/19 07/29/19 07/30/19 15:00 23:00 07:00 Intake Total 120 ml 490 ml 340 ml Output Total 250 ml Balance -130 ml 490 ml 340 ml Physical Exam Physical Exam: GENERAL: walking back to bed HENMT: SEVERIANO, Oral cavity clear, no thrush NECK: Supple LINGS: CTAB HEART: S1, S2 ABDOMEN: Obese, soft, nontender, bowel sounds present EXT: Unremarkable. Wound vac left knee with hinge brace in place. SKIN: Warm to touch. No signs of rash TRICOT KNITTER: Alert and oriented x 3 Right chest CVC without signs of complications General: Alert, Oriented X3, Cooperative, No acute distress Lungs: Clear Abdomen: Normal bowel sounds, Soft, No tenderness, No hepatosplenomegaly, No masses Extremities: No clubbing, No cyanosis, No edema, Normal pulses Skin: Other (Left knee with fluid) Labs Labs: Laboratory Tests Test 07/29/19 17:21 07/29/19 20:31 07/30/19 06:38 07/30/19 06:47 Glucose (Fingerstick) 140 mg/dL (70-99) 118 mg/dL (70-99) 134 mg/dL (70-99) White Blood Count 5.4 x10^3/uL (4.0-11.0) Red Blood Count 3.18 x10^6/uL (4.30-5.70) Hemoglobin 7.3 g/dL (13.0-17.5) Hematocrit 23.2 % (39.0-53.0) Mean Corpuscular Volume 73 fL (79-100) Mean Corpuscular Hemoglobin 23 pg (25-35) Mean Corpuscular Hemoglobin Concent 32 g/dL (31-37) Red Cell Distribution Width 18.1 % (11.5-14.5) Platelet Count 336 x10^3/uL (140-400) Neutrophils (%) (Auto) 55 % (31-73) Lymphocytes (%) (Auto) 30 % (24-48) Monocytes (%) (Auto) 8 % (0-9) Eosinophils (%) (Auto) 5 % (0-3) Basophils (%) (Auto) 1 % (0-3) Neutrophils # (Auto) 3.0 x10^3/uL (1.8-7.7) Lymphocytes # (Auto) 1.6 x10^3/uL (1.0-4.8) Monocytes # (Auto) 0.4 x10^3/uL (0.0-1.1) Eosinophils # (Auto) 0.3 x10^3/uL (0.0-0.7) Basophils # (Auto) 0.1 x10^3/uL (0.0-0.2) Creatinine 1.1 mg/dL (0.7-1.3) Estimated GFR (Cockcroft-Gault) 70.9 Test 07/30/19 11:04 Glucose (Fingerstick) 168 mg/dL (70-99) Assessment and Plan Assessmemt and Plan Problems Medical Problems: (1) Hypokalemia Status: Acute (2) Infection of prosthetic left knee joint Status: Acute (3) Nausea & vomiting Status: Acute Intractable nausea and vomiting - requiring IV antiemetics. Will continue Hypokalemia - will replace Hypomagnesemia will replace Anxiety, Bipolar, Depression - will check lithium level given his potassium level and cont meds Diabetes-Type II - basal bolus insulin while inpatient Hypertension - cont lisinopril Chronic back pain - will cont meds Left knee pain - s/p TKR, now with need for likely repeat revision. Patient has had multiple procedures as follows: h/o left TKA suspected infection, had mechanical defect in fascia s/p I and D 07/11 - cults neg report Invosure was +. h/o left knee revision arthtoplasty 06/05 cults negative -Status post 06/05/2019 removal of antibiotic spacer. Operative reduction and internal fixation of lateral epicondyle fracture and insertion of stemmed tibial and femoral components with reimplantation resurfacing patellar component, cultures neg h/o left knee prosthetic joint infection. Synovial cultures positive MRSE, 03/07/2019, (tetracycline-R) and swab cultures on 03/11/2019 grew Enterobacter faecalis, ampicillin sensitive. s/p explantation on 03/13/2019. Com[pleted 6 weeks IV vancomycin and ampicillin. Last dose was on 04/25/2019. h/o wound dehiscence with wound VAC management up until approximately the end of 04/2019 through wound team with excoriation due to allergic component from wound dressing resolved prior to admission. History of fall with dislocation of the patellar component of left knee arthro plasty from the posterior aspect of patella on 02/11/2019 Left total knee arthroplasty in 01/2018. Status post 08/22/2018, incision and drainage on 09/19/2018 with polyethylene exchange. Cultures from 09/2018 remain negative including acid-fast bacilli, f ungal. Plan: Wound care IV antibiotics Trend labs Home meds DVT prophylaxis Full follow recommendations from ID workforce consultant regarding antibiotic therapy Comment Review of Relevant I have reviewed the following items blaze (where applicable) has been applied. Medications: Current Medications Medications (Trade) Dose Ordered Sig/Edilma Route PRN Reason Start Time Stop Time Status Last Admin Dose Admin Acetaminophen (Tylenol) 1,000 mg Q6HRS PO 07/30/19 06:00 07/30/19 06:30 VISHAL KATZ III DO Jul 30, 2019 12:35
--- NOTE | 2019-07-30 14:06 | NUR ---
SANDOVAL following. Discussed with RN, pt discharging home today with [facility], which pt was current with prior to this admission. SANDOVAL spoke with pt's mother, who reported they do not need home health as she does all pt's infusions and wound care/ wound vac as she is a retired RN. SANDOVAL faxed scripts and discharge paperwork to [facility]. Discharge being coordinated between pt's mother and RN. RN notified of no home health needed and of scripts faxed to [facility]. SANDOVAL will continue to follow should any other needs arise. Addendum: 07/30/19 at 1617 by MONAE NICK SANDOVAL contacted [facility] to ensure pt everything was received and had been arranged. Rosa at [facility] confirmed everything had been taken care of and they had spoken with pt's mother. No further SW needs. Pt discharged home.
[2019-07-30 14:35] VITALS: BP 136/93
[2019-07-30] MEDS: ENOXAPARIN 40 MG/0.4 ML SYRINGE. SQ SCH (16:00)
--- NOTE | 2019-07-30 16:20 | NUR ---
Patient left around 1615 with his mom. Discharge instructions addressed with his mom over the phone and him in person. Right chest Groshan cath intact and working properly. Wound vac working properly and switched to home wound vac upon transfer to car. Scripts given to the patient for vanco, zokalynn, labs, and a follow up appointment. Meds from med room that he brought from home were given back to the patient. No concerns noted upon discharge.
== END 2019-07-30 16:15 | disposition home or self-care (01) | DRG 486 ==
LOC: ER 08:12 → 4 NORTH 11:00 → ER 12:10
PROVIDERS: ADMIT Internal Medicine; ATTEND Internal Medicine
PROC: 0SBD0ZZ Excision of Left Knee Joint, Open Approach (ICD-10-PCS; principal; 2019-07-28 08:00)
DX: T84.54XA Infection and inflammatory reaction due to internal left knee prosthesis, initial encounter (principal); T81.30XA Disruption of wound, unspecified, initial encounter; Z68.41 Body mass index [BMI] 40.0-44.9, adult; D64.9 Anemia, unspecified; E03.9 Hypothyroidism, unspecified; E11.9 Type 2 diabetes mellitus without complications; E83.42 Hypomagnesemia; E87.6 Hypokalemia; F31.9 Bipolar disorder, unspecified; F41.9 Anxiety disorder, unspecified; G47.33 Obstructive sleep apnea (adult) (pediatric); G89.29 Other chronic pain; I10 Essential (primary) hypertension; M19.90 Unspecified osteoarthritis, unspecified site; Y83.1 Surgical operation with implant of artificial internal device as the cause of abnormal reaction of the patient, or of later complication, without mention of misadventure at the time of the procedure; Z85.828 Personal history of other malignant neoplasm of skin; Z86.14 Personal history of Methicillin resistant Staphylococcus aureus infection; Z87.891 Personal history of nicotine dependence; E66.9 Obesity, unspecified; M54.5 Low back pain; Z88.8 Allergy status to other drugs, medicaments and biological substances; Z79.899 Other long term (current) drug therapy
CPT/HCPCS: 36415; 74022; 80048; 80053; 80178; 80202; 82565; 82962; 83690; 83735; 84132; 85025; 87071; 87075; 87102; 89050; J1200; J1650; J1815; J2405; J2543; J2704; J2765; J2997; J3370; J3475; J3480; J3490; J7030; J7050; J7120; 97116-GP; A4461; G0378

== ENCOUNTER → 2019-08-01 | Outpatient (CLI) | payer BC, MEDICARE ==
[2019-07-30 14:35] VITALS: BP 136/93
--- NOTE | 2019-08-01 11:20 | PAIN ---
DATE OF SERVICE: 08/01/2019 PROGRESS NOTE FOR PAIN CLINIC DIAGNOSES: Lumbar degenerative disk disease, lumbar spinal stenosis and lumbar spondylosis. HISTORY OF PRESENT ILLNESS: The patient is a 49-year-old male who returns for followup status post medication management with oxycodone as well as Zanaflex and Lidoderm patches. The patient reports he is doing fairly well with the medication regimen and has a good decrease in pain by about 75-80%. The patient reports he has had some increased pain lately and he did have surgery on his left knee with a knee replacement. He has since had an infection. He now has a drain in it with also IV antibiotics he is taking only was hospitalized last week for IV antibiotic starting and drain placement for the knee with I and D. The patient reports he is feeling better in the knee, but is still keeping it straight. He has a brace on it with a drain in as well. Today, the patient reports otherwise pain is fairly well controlled from his low back and his medication standpoint by about 75-80% is noted. The patient reports his pain is a 9 on a scale of 10 at its worst over the past week. This generally with his left knee, 7 on average, 6 at its least and with his back and is a 6 today. The patient reports no new motor or sensory deficits, does not aware of bother him from sleep. He is sleeping at night even with the knee pain. PHYSICAL EXAMINATION: VITAL SIGNS: The patient's blood pressure 109/63, pulse 63, respirations 18, temperature 97.7 degrees Fahrenheit, height 5 feet 7 inches, weight is 253 pounds. GENERAL: The patient is awake, alert, oriented, appropriate, very pleasant demeanor. HEENT: Head shows normocephalic, atraumatic. Extraocular movements are intact and symmetrical. Oral cavity: Mucous membranes moist and pink. Dentition is intact. NECK: Shows anterior throat supple without palpable lymphadenopathy noted. Swallow reflex symmetrical. CHEST: Shows normal on inspection. Breath sounds clear bilaterally. HEART: Shows S1, S2 clear. ABDOMEN: Obese, soft, nontender, nondistended. BACK: Shows spine grossly in the midline. Normal appearing thoracic kyphosis and lumbar lordotic curvature slightly flattened. Lumbar paraspinous muscle shows symmetrical on inspection, on palpation shows some moderate tenderness diffusely bilaterally going diffusely without significant radiation. The patient has good rotational motion of lumbar spine with some mild tenderness with extension, but not with forward flexion, right or left lateral rotation. EXTREMITIES: The patient's lower extremities shows well-healed surgical scarring on the right knee as well as fresher surgical scars on the left with a brace in place as well as a surgical drain. The patient has the brace on the left knee, keeping it in a straight position. Dorsiflexion and extension is strong and equal at 5/5 bilaterally. Right quadriceps and hamstring flexion is 5/5. Left side is not evaluated secondary to brace on the patient's leg. Peripheral pulses, however, are easily palpable at 1+ posterior tibial. No peripheral edema is noted bilaterally. Options were discussed with the patient. The patient's old chart was reviewed as his current medication regimen updated. Current review of systems updated today as well and we will refill the patient's oxycodone as well as Lidoderm patches and Zanaflex. The patient was given instruction as well as side effects of these medications. The patient has had appropriate K-TRACS reporting as well as appropriate urinalysis to date and we will refill the patient's medications for 2-month period. The patient was given instruction as well as side effects to be aware of with all the medications and will follow up in approximately 2 months or sooner as necessary. KOFI BYRD MD DR: AIDEN/ritesh JOB#: [id number] / [id number]
== END | disposition home or self-care (01) ==
LOC: PNCL 09:59
PROVIDERS: ATTEND Anesthesiology
DX: M51.36 Other intervertebral disc degeneration, lumbar region (principal); M48.061 Spinal stenosis, lumbar region without neurogenic claudication; M47.816 Spondylosis without myelopathy or radiculopathy, lumbar region
CPT/HCPCS: G0463

== ENCOUNTER 2019-09-08 18:52 | Emergency (ER) | payer BC, MEDICARE ==
[2019-08-09 18:11] VITALS: BP 200/96
[~2019-09-08 18:52] MED LIST changes: +LEVO-101 PO; -LEVO100T PO; -WARF-78 PO; +WARF5TAB2 PO
[2019-09-08] MEDS ORDERED: IV NORMAL SALINE 1000ML BAG 1,000 ML IV ONE (19:30)
[2019-09-08] MEDS ORDERED: ONDANSETRON PF 4 MG/2 ML VIAL. IVP ONE (20:00)
[2019-09-16] MEDS ORDERED: POTA20TA4 PO (14:06)
[2019-09-16] MEDS ORDERED: ALBU2.5V8 NEB (14:06)
[2019-09-16] MEDS ORDERED: DOCU-153 PO (14:06)
[2019-09-16] MEDS ORDERED: LACT1CAP19 PO (14:06)
[2019-09-16] MEDS ORDERED: INSU100I11 SQ (14:06)
[2019-09-16] MEDS ORDERED: PANT40TA77 PO (14:06)
== END 2019-09-08 19:51 | disposition left against medical advice (07) ==
LOC: ER 18:52
DX: R11.2 Nausea with vomiting, unspecified (principal); R19.7 Diarrhea, unspecified; Z53.21 Procedure and treatment not carried out due to patient leaving prior to being seen by health care provider

== ENCOUNTER 2019-09-10 09:27 | Inpatient (IN) | payer BC, MEDICARE ==
[2019-09-10] VITALS (11 sets, daily range): BP systolic 137–176; BP diastolic 78–104
[~2019-09-10] VITALS: Ht 170.2 cm; Wt 103.4 kg
[2019-09-10 10:15] LABS: BASO # 0.1 x10^3/uL (0.0-0.2); BASO % 1 % (0-3); EOS % 0 % (0-3); HEMATOCRIT 36.6 % (39.0-53.0); HEMOGLOBIN 11.6 g/dL (13.0-17.5); LYMPH # 0.8 x10^3/uL (1.0-4.8); LYMPH % 7 % (24-48); MEAN CORPUSCULAR HEMOGLOBIN 22 pg (25-35); MEAN CORPUSCULAR HGB CONC 32 g/dL (31-37); MEAN CORPUSCULAR VOLUME 70 fL (79-100); MONO % 9 % (0-9); NEUT # 9.3 x10^3/uL (1.8-7.7); NEUT % 83 % (31-73); PLATELET COUNT 323 x10^3/uL (140-400); RED BLOOD COUNT 5.24 x10^6/uL (4.30-5.70); RED CELL DISTRIBUTION WIDTH 19.8 % (11.5-14.5); WHITE BLOOD COUNT 11.2 x10^3/uL (4.0-11.0)
[2019-09-10 10:34] LABS: ALBUMIN 2.6 g/dL (3.4-5.0); ALBUMIN/GLOBULIN RATIO 0.6 (1.0-1.7); CREATININE 2.2 mg/dL (0.7-1.3); GFR 31.8; POTASSIUM 3.2 mmol/L (3.5-5.1); TOTAL BILIRUBIN 0.8 mg/dL (0.2-1.0); TOTAL PROTEIN 7.2 g/dL (6.4-8.2)
--- NOTE | 2019-09-10 10:40 | RAD ---
Chest radiograph 09/10/2019 10:18 AM INDICATION: Shortness of breath COMPARISON: 05/25/2019 TECHNIQUE: Frontal and lateral views of the chest are provided. FINDINGS: The cardiomediastinal silhouette is within normal limits. Right IJ central venous catheter is identified with the distal tip projecting over the proximal superior vena cava. There are no pleural effusions. There is no pulmonary vascular congestion. There is no pneumothorax. The lungs are clear. No significant osseous abnormality is identified. IMPRESSION: No acute cardiopulmonary process. Electronically signed by: Angie Arvizu MD (09/10/2019 10:37 AM) [id number]
[2019-09-10 10:45] LABS: ANISOCYTOSIS SLIGHT; PLT ESTIMATE ADEQUATE (ADEQUATE)
[2019-09-10 10:46] LABS: MICROCYTOSIS SLIGHT
[2019-09-10 10:49] LABS: LI < 0.2 mmol/L (0.6-1.2)
[2019-09-10] MEDS ORDERED: IV NORMAL SALINE 1000ML BAG 1,000 ML IV ONE (11:00)
[2019-09-10] MEDS ORDERED: ONDANSETRON PF 4 MG/2 ML VIAL. IVP ONE (11:00)
--- NOTE | 2019-09-10 11:47 | RAD ---
Study: CT abdomen/pelvis without intravenous contrast Indication: Vomiting for the past 2 weeks Comparison: None. Technique: Helical CT imaging performed of the abdomen and pelvis without the use of intravenous contrast. Sagittal and coronal reformats were obtained. One or more of the following individualized dose reduction techniques were utilized for this examination: 1. Automated exposure control 2. Adjustment of the mA and/or kV according to patient size 3. Use of iterative reconstruction technique. Findings: Inherently limited evaluation without intravenous contrast. Additionally, the study is degraded by motion artifact. Chest: Ill-defined infiltrates involving the visualized lingula and left lower lobe. There also is the suggestion of less pronounced infiltrates within the right middle lobe and medial right lower lobe. Circumferential thickening of the distal esophageal wall. There appears to be some fluid within the distal esophageal lumen. Calcific coronary artery disease. Liver: Low-attenuation of the hepatic parenchyma relative to the spleen suggesting a degree of hepatic steatosis. Gallbladder/Biliary Tree: Much of the gallbladder is filled with radiodense gallstones. Noting motion artifact the gallbladder wall does not appear overtly thickened. No definite radiodense stone within the common duct. Pancreas: Inflammatory changes surrounding the pancreas greatest along the body and tail. No discrete fluid collection. Limited assessment for pancreatic necrosis without intravenous contrast. Spleen: Upper limits of normal craniocaudal dimension of the spleen measuring just over 13 cm. Adrenal Glands: Within normal limits. Kidneys/Ureters/Bladder: Small exophytic focus off the medial aspect of the left lower kidney, image 46 series 2, with intrinsic increased density compatible with mineralization. On image 46 this measures 1 cm. Punctate nonobstructing intrarenal stone at the upper pole of the right kidney. No hydroureteronephrosis. Mildly distended urinary bladder without wall thickening. Reproductive Organs: The prostate is prominent size at 5 cm transverse. Mineralization along the left lateral aspect of the prostate. Colon: Mild wall thickening of the colon just distal to the splenic flexure is favored reactive from pancreatitis. Ileocecal valve is located within the left lower quadrant. Mild to moderate volume of formed stool within the proximal colon. Appendix: A portion of the appendix is believed to be seen on image 56 series 2 and is unremarkable. Small Bowel: Nonobstructed. Mild reactive inflammatory changes along the second portion of the duodenum. Stomach: Mildly distended without discrete abnormality. Vasculature: Nonaneurysmal aorta. Mild scattered calcific atherosclerosis. Lymph Nodes: Within normal limits for size. Peritoneum and Body Wall: Inflammatory changes extend from the pancreas to involve the upper/central mesentery. Surgical changes and a small amount of fluid extend along the left paracolic gutter. Bones: No acute or aggressive osseous process. Scattered degenerative changes seen to the greatest degree at L5-S1 more so than L4-L5. Grade 1 anterolisthesis of L4 on L5. Miscellaneous: None. Impression: 1. Degraded study secondary to motion artifact. 2. Peripancreatic inflammatory changes compatible with acute pancreatitis. No fluid collection is identified. No obvious focal parenchymal hypoattenuation to suggest pancreatic necrosis noting the absence of intravenous contrast. Note is made that much of the gallbladder lumen is filled with gallstones and though no stone is definitively seen within the common bile duct, gallstone pancreatitis remains a consideration. 3. Ill-defined infiltrates involving the visualized left lower lung more so than the right. Sequela of aspiration or an atypical pneumonia could have this appearance. 4. Partially mineralized nodule off the medial pole of the left kidney measuring around 1 cm. A calcified cyst would be the most likely etiology but no comparison studies are available to determine stability. Consider 3-6 month ultrasound follow-up to assess for any change. 5. Punctate nonobstructing intrarenal stone at the upper pole of the right kidney. 6. Additional chronic observations as detailed above. Electronically signed by: ELIANE SHARMA MD (09/10/2019 11:44 AM) [id number]
--- NOTE | 2019-09-10 12:45 | RAD ---
ABDOMEN LTD History: Abdominal pain. Elevated for cholecystitis / Spl. Instructions: / History: Comparison: CT September 10, 2019. Technique: Transabdominal ultrasound images are obtained of the right upper quadrant. Findings: Edematous appearance of the pancreas. Liver is increased in echogenicity. Right hepatic lobe measures 17.8 cm. Portal flow is hepatopedal. Cholelithiasis. No gallbladder wall thickening. No pericholecystic fluid. Common bile duct measures 5 mm in diameter. The right kidney measures 4.7 x 5.9 x 4.5 cm. No hydronephrosis. Visualized portions of the aorta and IVC have normal caliber. IMPRESSION: 1. Cholelithiasis. 2. Edematous pancreas compatible with known pancreatitis. 3. Increased hepatic echotexture, may indicate steatosis. Electronically signed by: Shamar Raines DO (09/10/2019 12:42 PM) [id number]
--- NOTE | 2019-09-10 13:05 | PDOC1 ---
History and Physical Date of Admission Date of Admission DATE: 09/10/19 TIME: 13:01 Identification/Chief Complaint Chief Complaint seen in er with 2 wk history of nausea, worse for last 2 days, now with epigastric discomfort, glucose > 700 Past Medical History Past Medical History PMH: PMH: HTN, ANALIA, DM, hypothyroidism, bipolar, MRSA tonsillectomy, bilateral knee replacements, left knee I&D, vascetomy, cardiac cath FH: Family History: No GI cancers, pancreatitis, and GB disease Social History: Smoke: <1 pack per day (occasional cigar - none in three months) ALCOHOL: rare Drugs: None Cardiovascular: HTN Heme/Onc: No pertinent hx Hepatobiliary: No pertinent hx Psych: No pertinent hx, Bipolar, Other Musculoskeletal: low back pain Rheumatologic: No pertinent hx Endocrine: Hypothyroidism Past Surgical History Past Surgical History: Total knee replacement Family History Family History: No Significant, High Cholestrol, Hypertension Social History Smoke: <1 pack per day ALCOHOL: occassional Drugs: None Current Medications Current Medications Current Medications Sodium Chloride 1,000 ml @ 0 mls/hr 1X ONCE IV Last administered on 09/10/19at 11:06; Start 09/10/19 at 11:00; Stop 09/10/19 at 11:01; Status DC Ondansetron HCl (Zofran) 4 mg 1X ONCE IVP Last administered on 09/10/19at 11:06; Start 09/10/19 at 11:00; Stop 09/10/19 at 11:01; Status DC Active Scripts Active Reported Piperacil-Tazobact 4.5 Gm Vial (Piperacillin Sodium/Tazobactam) 4.5 Gm Vial.port 3.375 Gm IV Q6HRS Vancomycin 750 Mg/150 Ml Bag (Vancomycin In Dextrose,Iso-Osm) 750 Mg/150 Ml Froz.piggy 1 Gm IV BID Lidocaine PATCH (Lidocaine) 1 Each Adh..patch 1 Each TP DAILY REMOVE AFTER 12 HOURS Lisinopril 5 Mg Tablet 1 Tab PO DAILY Percocet 7.5-325 Mg Tablet (Oxycodone/Acetaminophen) 1 Each Tablet 1 Tab PO PRN Q6HRS PRN Clonazepam 1 Mg Tablet 1 Mg PO BID [place] Carbonate 300 Mg Tablet 1 Tab PO BID Zanaflex (Tizanidine Hcl) 4 Mg Capsule 1 Cap PO TID PRN Janumet 50-1,000 Mg Tablet (Sitagliptin Phos/Metformin Hcl) 1 Each Tablet 1 Tab PO BID Doxepin Hcl 50 Mg Capsule 300 Mg PO HS Allergies Allergies: Coded Allergies: daptomycin (Verified Allergy, Intermediate, chills, nausea , 08/09/19) I S O L A T I O N *CONTACT* (Verified Allergy, Unknown, Unknown, 08/14/19) mrsa No Known Medication Allergies (Verified Allergy, Unknown, Unknown, 08/14/19) ketamine (Verified Allergy, Unknown, Unknown, 08/14/19) ROS General: YES: Fatigue; No: Chills, Night Sweats, Malaise, Appetite, Other PSYCHOLOGICAL ROS: No: Anxiety, Behavioral Disorder, Concentration difficultie, Decreased libido, Depression, Disorientation, Hallucinations, Hostility, Irritablity, Memory difficulties, Mood Swings, Obsessive thoughts, Physical abuse, Sexual abuse, Sleep disturbances, Suicidal ideation, Other Eyes: Yes Blurry vision; No Decreased vision, No Double vision, No Dry eyes, No Excessive tearing, No Eye Pain, No Itchy Eyes, No Loss of vision, No Photophobia, No Scotomata, No Uses contacts, No Uses glasses, No Other HEENT: No: Heacaches, Visual Changes, Hearing change, Nasal congestion, Nasal discharge, Oral lesions, Sinus pain, Sore Throat, Epistaxis, Sneezing, Snoring, Tinnitus, Vertigo, Vocal changes, Other Hematological and Lymphatic: No: Bleeding Problems, Blood Clots, Blood Transfusions, Brusing, Night Sweats, Pallor, Swollen Lymph Nodes, Other Cardiovascular: No Chest Pain, No Palpitations, No Orthopnea, No Paroxysmal Noc. Dyspnea, No Edema, No Lt Headedness, No Other Gastrointestinal: Yes Nausea, Yes Vomiting, Yes Abdominal Pain Genitourinary: No Dysuria, No Frequency, No Incontinence, No Hematuria, No Retention, No Discharge, No Urgency, No Pain, No Flank Pain, No Other, No , No , No , No , No , No , No Musculoskeletal: Yes Joint Stiffness; No Gait Disturbance, No Joint Pain, No Joint Swelling, No Muscle Pain, No Muscular Weakness, No Pain In:, No Swelling In:, No Other Skin: Yes Dry Skin Physical Exam General: Alert, Oriented X3, Cooperative, mild distress HEENT: Other (mucous membranes dry) Lungs: Clear to auscultation, Normal air movement Heart: RRR Breasts: Not examined Abdomen: No hepatosplenomegaly, Other (ruq tender) Rectal Exam: not examined Extremities: No cyanosis Neuro: Normal speech, Cranial nerves 3-12 NL Psych/Mental Status: Mental status NL, Mood NL Vitals Vitals Vital Signs Date Time Temp Pulse Resp B/P (MAP) Pulse Ox O2 Delivery O2 Flow Rate FiO2 09/10/19 09:38 98.6 106 14 150/81 (104) 96 Room Air 98.6 Labs Labs Laboratory Tests Test 09/10/19 10:05 White Blood Count 11.2 x10^3/uL (4.0-11.0) Red Blood Count 5.24 x10^6/uL (4.30-5.70) Hemoglobin 11.6 g/dL (13.0-17.5) Hematocrit 36.6 % (39.0-53.0) Mean Corpuscular Volume 70 fL (79-100) Mean Corpuscular Hemoglobin 22 pg (25-35) Mean Corpuscular Hemoglobin Concent 32 g/dL (31-37) Red Cell Distribution Width 19.8 % (11.5-14.5) Platelet Count 323 x10^3/uL (140-400) Neutrophils (%) (Auto) 83 % (31-73) Lymphocytes (%) (Auto) 7 % (24-48) Monocytes (%) (Auto) 9 % (0-9) Eosinophils (%) (Auto) 0 % (0-3) Basophils (%) (Auto) 1 % (0-3) Neutrophils # (Auto) 9.3 x10^3/uL (1.8-7.7) Lymphocytes # (Auto) 0.8 x10^3/uL (1.0-4.8) Monocytes # (Auto) 1.0 x10^3/uL (0.0-1.1) Eosinophils # (Auto) 0.0 x10^3/uL (0.0-0.7) Basophils # (Auto) 0.1 x10^3/uL (0.0-0.2) Platelet Estimate Adequate (ADEQUATE) Anisocytosis Slight Microcytosis Slight Sodium Level 128 mmol/L (136-145) Potassium Level 3.2 mmol/L (3.5-5.1) Chloride Level 84 mmol/L (98-107) Carbon Dioxide Level 28 mmol/L (21-32) Anion Gap 16 (6-14) Blood Urea Nitrogen 44 mg/dL (8-26) Creatinine 2.2 mg/dL (0.7-1.3) Estimated GFR (Cockcroft-Gault) 31.8 BUN/Creatinine Ratio 20 (6-20) Glucose Level 711 mg/dL (70-99) Calcium Level 9.0 mg/dL (8.5-10.1) Total Bilirubin 0.8 mg/dL (0.2-1.0) Aspartate Amino Transf (AST/SGOT) 22 U/L (15-37) Alanine Aminotransferase (ALT/SGPT) 31 U/L (16-63) Alkaline Phosphatase 211 U/L (46-116) Total Protein 7.2 g/dL (6.4-8.2) Albumin 2.6 g/dL (3.4-5.0) Albumin/Globulin Ratio 0.6 (1.0-1.7) Lipase 746 U/L (73-393) [place] Level < 0.2 mmol/L (0.6-1.2) [place] Last Dose Date Unknown [place] Last Dose Time Unknown Laboratory Tests Test 09/10/19 10:05 White Blood Count 11.2 x10^3/uL (4.0-11.0) Red Blood Count 5.24 x10^6/uL (4.30-5.70) Hemoglobin 11.6 g/dL (13.0-17.5) Hematocrit 36.6 % (39.0-53.0) Mean Corpuscular Volume 70 fL (79-100) Mean Corpuscular Hemoglobin 22 pg (25-35) Mean Corpuscular Hemoglobin Concent 32 g/dL (31-37) Red Cell Distribution Width 19.8 % (11.5-14.5) Platelet Count 323 x10^3/uL (140-400) Neutrophils (%) (Auto) 83 % (31-73) Lymphocytes (%) (Auto) 7 % (24-48) Monocytes (%) (Auto) 9 % (0-9) Eosinophils (%) (Auto) 0 % (0-3) Basophils (%) (Auto) 1 % (0-3) Neutrophils # (Auto) 9.3 x10^3/uL (1.8-7.7) Lymphocytes # (Auto) 0.8 x10^3/uL (1.0-4.8) Monocytes # (Auto) 1.0 x10^3/uL (0.0-1.1) Eosinophils # (Auto) 0.0 x10^3/uL (0.0-0.7) Basophils # (Auto) 0.1 x10^3/uL (0.0-0.2) Platelet Estimate Adequate (ADEQUATE) Anisocytosis Slight Microcytosis Slight Sodium Level 128 mmol/L (136-145) Potassium Level 3.2 mmol/L (3.5-5.1) Chloride Level 84 mmol/L (98-107) Carbon Dioxide Level 28 mmol/L (21-32) Anion Gap 16 (6-14) Blood Urea Nitrogen 44 mg/dL (8-26) Creatinine 2.2 mg/dL (0.7-1.3) Estimated GFR (Cockcroft-Gault) 31.8 BUN/Creatinine Ratio 20 (6-20) Glucose Level 711 mg/dL (70-99) Calcium Level 9.0 mg/dL (8.5-10.1) Total Bilirubin 0.8 mg/dL (0.2-1.0) Aspartate Amino Transf (AST/SGOT) 22 U/L (15-37) Alanine Aminotransferase (ALT/SGPT) 31 U/L (16-63) Alkaline Phosphatase 211 U/L (46-116) Total Protein 7.2 g/dL (6.4-8.2) Albumin 2.6 g/dL (3.4-5.0) Albumin/Globulin Ratio 0.6 (1.0-1.7) Lipase 746 U/L (73-393) [place] Level < 0.2 mmol/L (0.6-1.2) [place] Last Dose Date Unknown [place] Last Dose Time Unknown Images Images Mitral Valve MV E Velocity 60.2cm/s MV E Peak Gr. 10mmHg MV DECEL TIME 379ms MV A Velocity 82.7cm/s MV E Mean Gr. 2mmHg E/A Ratio 0.7 MV A Duration 101ms Pulmonary Valve PV Peak Velocity 118.9cm/s Pulmonary Vein S1 Velocity 66.3cm/s D2 Velocity 38.9cm/s PVa duration 55msec LEFT VENTRICLE The left ventricle is normal size. There is normal left ventricular wall thickness. The left ventricular systolic function is normal and the ejection fraction is within normal range. The Ejection Fraction is 73 %. There is normal LV segmental wall motion. Transmitral Doppler flow pattern is Grade I-abnormal relaxation pattern. RIGHT VENTRICLE The right ventricle is normal size. There is normal right ventricular wall thickness. The right ventricular systolic function is normal. ATRIA The left atrium size is normal. The right atrium size is normal. The interatrial septum is intact with no evidence for an atrial septal defect or patent foramen ovale as noted on 2-D or Doppler imaging. AORTIC VALVE The aortic valve is normal in structure and function. The aortic valve is trileaflet. Doppler and Color Flow revealed no significant aortic regurgitation. There is no significant aortic valvular stenosis. MITRAL VALVE The mitral valve is normal in structure and function. There is no evidence of mitral valve prolapse. There is no mitral valve stenosis. Doppler and Color Flow revealed no mitral valve regurgitation noted. TRICUSPID VALVE Doppler and Color Flow revealed no tricuspid valve regurgitation noted. There is no pulmonary hypertension. PULMONIC VALVE The pulmonic valve is not well visualized but appears to open adequately. Doppler and Color Flow revealed no pulmonic valvular regurgitation. There is no pulmonic valvular stenosis by spectral Doppler. GREAT VESSELS The aortic root is normal in size. The ascending aorta is normal in size. The pulmonary artery is normal. The IVC is normal in size and collapses >50% with inspiration. PERICARDIAL EFFUSION There is no evidence of significant pericardial effusion. Critical Notification Critical Value: No <Conclusion> The left ventricular systolic function is normal and the ejection fraction is within normal range. The Ejection Fraction is 73 %. Transmitral Doppler flow pattern is Grade I-abnormal relaxation pattern. The left atrium size is normal. The right atrium size is normal. The aortic valve is normal in structure and function. The aortic valve is trileaflet. The mitral valve is normal in structure and function. Doppler and Color Flow revealed no tricuspid valve regurgitation noted. There is no pulmonary hypertension. The pulmonic valve is not well visualized but appears to open adequately. Doppler and Color Flow revealed no pulmonic valvular regurgitation. There is no pulmonic valvular stenosis by spectral Doppler. There is no evidence of significant pericardial effusion. ABDOMEN LTD History: Abdominal pain. Elevated for cholecystitis / Spl. Instructions: / History: Comparison: CT September 10, 2019. Technique: Transabdominal ultrasound images are obtained of the right upper quadrant. Findings: Edematous appearance of the pancreas. Liver is increased in echogenicity. Right hepatic lobe measures 17.8 cm. Portal flow is hepatopedal. Cholelithiasis. No gallbladder wall thickening. No pericholecystic fluid. Common bile duct measures 5 mm in diameter. The right kidney measures 4.7 x 5.9 x 4.5 cm. No hydronephrosis. Visualized portions of the aorta and IVC have normal caliber. IMPRESSION: 1. Cholelithiasis. 2. Edematous pancreas compatible with known pancreatitis. 3. Increased hepatic echotexture, may indicate steatosis. Electronically signed by: Shamar Raines DO (09/10/2019 12:42 PM) [id number] Study: CT abdomen/pelvis without intravenous contrast Indication: Vomiting for the past 2 weeks Comparison: None. Technique: Helical CT imaging performed of the abdomen and pelvis without the use of intravenous contrast. Sagittal and coronal reformats were obtained. One or more of the following individualized dose reduction techniques were utilized for this examination: 1. Automated exposure control 2. Adjustment of the mA and/or kV according to patient size 3. Use of iterative reconstruction technique. Findings: Inherently limited evaluation without intravenous contrast. Additionally, the study is degraded by motion artifact. Chest: Ill-defined infiltrates involving the visualized lingula and left lower lobe. There also is the suggestion of less pronounced infiltrates within the right middle lobe and medial right lower lobe. Circumferential thickening of the distal esophageal wall. There appears to be some fluid within the distal esophageal lumen. Calcific coronary artery disease. Liver: Low-attenuation of the hepatic parenchyma relative to the spleen suggesting a degree of hepatic steatosis. Gallbladder/Biliary Tree: Much of the gallbladder is filled with radiodense gallstones. Noting motion artifact the gallbladder wall does not appear overtly thickened. No definite radiodense stone within the common duct. Pancreas: Inflammatory changes surrounding the pancreas greatest along the body and tail. No discrete fluid collection. Limited assessment for pancreatic necrosis without intravenous contrast. Spleen: Upper limits of normal craniocaudal dimension of the spleen measuring just over 13 cm. Adrenal Glands: Within normal limits. Kidneys/Ureters/Bladder: Small exophytic focus off the medial aspect of the left lower kidney, image 46 series 2, with intrinsic increased density compatible with mineralization. On image 46 this measures 1 cm. Punctate nonobstructing intrarenal stone at the upper pole of the right kidney. No hydroureteronephrosis. Mildly distended urinary bladder without wall thickening. Reproductive Organs: The prostate is prominent size at 5 cm transverse. Mineralization along the left lateral aspect of the prostate. Colon: Mild wall thickening of the colon just distal to the splenic flexure is favored reactive from pancreatitis. Ileocecal valve is located within the left lower quadrant. Mild to moderate volume of formed stool within the proximal colon. Appendix: A portion of the appendix is believed to be seen on image 56 series 2 and is unremarkable. Small Bowel: Nonobstructed. Mild reactive inflammatory changes along the second portion of the duodenum. Stomach: Mildly distended without discrete abnormality. Vasculature: Nonaneurysmal aorta. Mild scattered calcific atherosclerosis. Lymph Nodes: Within normal limits for size. Peritoneum and Body Wall: Inflammatory changes extend from the pancreas to involve the upper/central mesentery. Surgical changes and a small amount of fluid extend along the left paracolic gutter. Bones: No acute or aggressive osseous process. Scattered degenerative changes seen to the greatest degree at L5-S1 more so than L4-L5. Grade 1 anterolisthesis of L4 on L5. Miscellaneous: None. Impression: 1. Degraded study secondary to motion artifact. 2. Peripancreatic inflammatory changes compatible with acute pancreatitis. No fluid collection is identified. No obvious focal parenchymal hypoattenuation to suggest pancreatic necrosis noting the absence of intravenous contrast. Note is made that much of the gallbladder lumen is filled with gallstones and though no stone is definitively seen within the common bile duct, gallstone pancreatitis remains a consideration. 3. Ill-defined infiltrates involving the visualized left lower lung more so than the right. Sequela of aspiration or an atypical pneumonia could have this appearance. 4. Partially mineralized nodule off the medial pole of the left kidney measuring around 1 cm. A calcified cyst would be the most likely etiology but no comparison studies are available to determine stability. Consider 3-6 month ultrasound follow-up to assess for any change. 5. Punctate nonobstructing intrarenal stone at the upper pole of the right kidney. 6. Additional chronic observations as detailed above. Electronically signed by: ELIANE SHARMA MD (09/10/2019 11:44 AM) [id number] DICTATED and SIGNED BY: ELIANE SHARMA MD DATE: 09/10/19 1144 VTE Prophylaxis Ordered VTE Prophylaxis Devices: No VTE Pharmacological Prophylaxi: Yes Assessment/Plan Assessment/Plan impression 1 Peripancreatic inflammatory changes compatible with acute pancreatitis. much of the gallbladder lumen is filled with gallstones and though no stone is definitively seen within the common bile duct, gallstone pancreatitis remains a consideration. 2. Ill-defined infiltrates involving the visualized left lower lung more so than the right. Sequela of aspiration or an atypical pneumonia may have this appearance. 3. mineralized nodule off the medial pole of the left kidney measuring around 1cm //calcified cyst would be the most likely etiology 4. hyperglycemia, uncontrolled nonketotic // diabetes 5. morbid obesity 6. intractable nausea, vomiting 7. JAQUAN 8. Pseudohyponatremia plan ADMIT CONSULT GI Consult gen surgery NPO PULM CONSULT emperic iv zosyn Nephrology consult insulin drip protocol ICU BED iv zofran 4 mg q 4 hrs prn IV FLUID SUPPORT 46 min cc time Justicifation of Admission Dx: Justifications for Admission: Justification of Admission Dx: Yes Comminuty Aquired Pneumonia: Hemodynamic Instability Acute Renal Failure: RF Can't Be Managed Outpt Sepsis: Dehydration Diabetic Urgency: Diabetic Urgency JAMAL MORRIS MD Sep 10, 2019 13:05
[2019-09-10] MEDS ORDERED: DEXTROSE 50% 25 GM / 50ML DISP.SYRIN. IV PRN ×2 (13:15→21:15)
[2019-09-10] MEDS ORDERED: 0.9 % SODIUM CHLORIDE 10 ML DISP.SYRIN. IV PRN (13:15)
[2019-09-10] MEDS ORDERED: ACETAMINOPHEN 650 MG SUPP.RECT. PR PRN (13:15)
[2019-09-10] MEDS ORDERED: DOCUSATE SODIUM 100 MG CAPSULE. PO PRN (13:15)
[2019-09-10] MEDS ORDERED: cloNIDine HCL 0.1 MG TABLET PO PRN (13:15)
[2019-09-10] MEDS ORDERED: IV DEXTROSE 5% 250 ML BAG. IV PRN (13:15)
[2019-09-10] MEDS ORDERED: INSULIN REGULAR IV ONE (13:47)
[2019-09-10] MEDS: IV NORMAL SALINE 1000ML BAG 1,000 ML IV SCH ×2 (13:52→15:01)
[2019-09-10] MEDS: ONDANSETRON PF 4 MG/2 ML VIAL. IV PRN (13:53)
--- NOTE | 2019-09-10 14:38 | PDOC2 ---
GI CONSULT Reason For Consult: gallstone pancreatitis HPI: HPI: 49 y/o male seen in ER. Ill with vomiting x 2 weeks. Denies precipitating events. Sometimes able to hold food or liquids down later in the day but not able to eat much. Describes emesis as "liquid" and usually occurs a couple hours after eating. Fairly constant nausea. Saw a little red blood in emesis yesterday - bleeding has not recurred. Does not have abdominal pain. No diarrhea, hematochezia, or melena. Hasn't stooled since last Tuesday or . Denies constipation. Thinks he's lost a lot of weight in the past few weeks. Voice is hoarse - started today or yesterday. H/o reflux/heartburn in his 20s when he chewed tobacco and didn't spit it all out. Had an EGD then that was reportedly normal. No previous colonoscopy. Denies GB, liver, pancreas, or PUD history. Chronic back pain on Percocet w/ occasional ibuprofen. A1c 6.2 in 05/2019 - hasn't been checking glucose regularly at home lately w/ illness. Chronic microcytic anemia noted on review of chart - iron profile c/w ACD in 2018. Notable labs today include glucose >700 and Cr 2.2. PMH: PMH: HTN, ANALIA, DM, hypothyroidism, bipolar, MRSA tonsillectomy, bilateral knee replacements, left knee I&D, vascetomy, cardiac cath FH: Family History: No pertinent hx (denies GI cancers, pancreatitis, and GB disease) Social History: Smoke: <1 pack per day (occasional cigar - none in three months) ALCOHOL: rare Drugs: None ROS: GEN: Denies fevers, chills, sweats HEENT: +hoarseness CV: Denies chest pain RESP: Denies shortness of air, cough GI: Per HPI : +dark urine ENDO: +weight loss NEURO: Denies confusion, dizziness MSK: +chronic back pain SKIN: Denies jaundice, pruritus Vitals: Vitals: Vital Signs Date Time Temp Pulse Resp B/P (MAP) Pulse Ox O2 Delivery O2 Flow Rate FiO2 09/10/19 09:38 98.6 106 14 150/81 (104) 96 Room Air 98.6 Labs: Labs: Laboratory Tests Test 6/1/20 10:05 09/10/19 13:32 White Blood Count 11.2 x10^3/uL (4.0-11.0) Red Blood Count 5.24 x10^6/uL (4.30-5.70) Hemoglobin 11.6 g/dL (13.0-17.5) Hematocrit 36.6 % (39.0-53.0) Mean Corpuscular Volume 70 fL (79-100) Mean Corpuscular Hemoglobin 22 pg (25-35) Mean Corpuscular Hemoglobin Concent 32 g/dL (31-37) Red Cell Distribution Width 19.8 % (11.5-14.5) Platelet Count 323 x10^3/uL (140-400) Neutrophils (%) (Auto) 83 % (31-73) Lymphocytes (%) (Auto) 7 % (24-48) Monocytes (%) (Auto) 9 % (0-9) Eosinophils (%) (Auto) 0 % (0-3) Basophils (%) (Auto) 1 % (0-3) Neutrophils # (Auto) 9.3 x10^3/uL (1.8-7.7) Lymphocytes # (Auto) 0.8 x10^3/uL (1.0-4.8) Monocytes # (Auto) 1.0 x10^3/uL (0.0-1.1) Eosinophils # (Auto) 0.0 x10^3/uL (0.0-0.7) Basophils # (Auto) 0.1 x10^3/uL (0.0-0.2) Platelet Estimate Adequate (ADEQUATE) Anisocytosis Slight Microcytosis Slight Sodium Level 128 mmol/L (136-145) Potassium Level 3.2 mmol/L (3.5-5.1) Chloride Level 84 mmol/L (98-107) Carbon Dioxide Level 28 mmol/L (21-32) Anion Gap 16 (6-14) Blood Urea Nitrogen 44 mg/dL (8-26) Creatinine 2.2 mg/dL (0.7-1.3) Estimated GFR (Cockcroft-Gault) 31.8 BUN/Creatinine Ratio 20 (6-20) Glucose Level 711 mg/dL (70-99) Calcium Level 9.0 mg/dL (8.5-10.1) Total Bilirubin 0.8 mg/dL (0.2-1.0) Aspartate Amino Transf (AST/SGOT) 22 U/L (15-37) Alanine Aminotransferase (ALT/SGPT) 31 U/L (16-63) Alkaline Phosphatase 211 U/L (46-116) Total Protein 7.2 g/dL (6.4-8.2) Albumin 2.6 g/dL (3.4-5.0) Albumin/Globulin Ratio 0.6 (1.0-1.7) Lipase 746 U/L (73-393) Ajo Level < 0.2 mmol/L (0.6-1.2) Ajo Last Dose Date Unknown [place]jo Last Dose Time Unknown Glucose (Fingerstick) 553 mg/dL (70-99) Allergies: Coded Allergies: daptomycin (Verified Allergy, Intermediate, chills, nausea , 08/09/19) I S O L A T I O N *CONTACT* (Verified Allergy, Unknown, Unknown, 08/14/19) mrsa No Known Medication Allergies (Verified Allergy, Unknown, Unknown, 08/14/19) ketamine (Verified Allergy, Unknown, Unknown, 08/14/19) Medications: Current Medications Medications (Trade) Dose Ordered Sig/Edilma Route PRN Reason Start Time Stop Time Status Last Admin Dose Admin Sodium Chloride 1,000 ml @ 0 mls/hr 1X ONCE IV 09/10/19 11:00 09/10/19 11:01 DC 09/10/19 11:06 Ondansetron HCl (Zofran) 4 mg 1X ONCE IVP 09/10/19 11:00 09/10/19 11:01 DC 09/10/19 11:06 Sodium Chloride (Normal Saline Flush) 3 ml QSHIFT PRN IV AFTER MEDS AND BLOOD DRAWS 09/10/19 13:15 09/10/19 13:54 Sodium Chloride 1,000 ml @ 100 mls/hr Q10H IV 09/10/19 13:05 09/10/19 13:52 Ondansetron HCl (Zofran) 4 mg PRN Q4HRS PRN IV NAUSEA/VOMITING 09/10/19 13:15 09/10/19 13:53 Imaging: Imaging: CXR 09/10/19 IMPRESSION: No acute cardiopulmonary process. CT A/P 09/09 Findings: Inherently limited evaluation without intravenous contrast. Additionally, the study is degraded by motion artifact. Chest: Ill-defined infiltrates involving the visualized lingula and left lower lobe. There also is the suggestion of less pronounced infiltrates within the right middle lobe and medial right lower lobe. Circumferential thickening of the distal esophageal wall. There appears to be some fluid within the distal esophageal lumen. Calcific coronary artery disease. Liver: Low-attenuation of the hepatic parenchyma relative to the spleen suggesting a degree of hepatic steatosis. Gallbladder/Biliary Tree: Much of the gallbladder is filled with radiodense gallstones. Noting motion artifact the gallbladder wall does not appear overtly thickened. No definite radiodense stone within the common duct. Pancreas: Inflammatory changes surrounding the pancreas greatest along the body and tail. No discrete fluid collection. Limited assessment for pancreatic necrosis without intravenous contrast. Spleen: Upper limits of normal craniocaudal dimension of the spleen measuring just over 13 cm. Adrenal Glands: Within normal limits. Kidneys/Ureters/Bladder: Small exophytic focus off the medial aspect of the left lower kidney, image 46 series 2, with intrinsic increased density compatible with mineralization. On image 46 this measures 1 cm. Punctate nonobstructing intrarenal stone at the upper pole of the right kidney. No hydroureteronephrosis. Mildly distended urinary bladder without wall thickening. Reproductive Organs: The prostate is prominent size at 5 cm transverse. Mineralization along the left lateral aspect of the prostate. Colon: Mild wall thickening of the colon just distal to the splenic flexure is favored reactive from pancreatitis. Ileocecal valve is located within the left lower quadrant. Mild to moderate volume of formed stool within the proximal colon. Appendix: A portion of the appendix is believed to be seen on image 56 series 2 and is unremarkable. Small Bowel: Nonobstructed. Mild reactive inflammatory changes along the second portion of the duodenum. Stomach: Mildly distended without discrete abnormality. Vasculature: Nonaneurysmal aorta. Mild scattered calcific atherosclerosis. Lymph Nodes: Within normal limits for size. Peritoneum and Body Wall: Inflammatory changes extend from the pancreas toinvolve the upper/central mesentery. Surgical changes and a small amount of fluid extend along the left paracolic gutter. Bones: No acute or aggressive osseous process. Scattered degenerative changes seen to the greatest degree at L5-S1 more so than L4-L5. Grade 1 anterolisthesis of L4 on L5. Miscellaneous: None. Impression: 1. Degraded study secondary to motion artifact. 2. Peripancreatic inflammatory changes compatible with acute pancreatitis. No fluid collection is identified. No obvious focal parenchymal hypoattenuation to suggest pancreatic necrosis noting the absence of intravenous contrast. Note is made that much of the gallbladderlumen is filled with gallstones and though no stone is definitively seen within the common bile duct, gallstone pancreatitis remains a consideration. 3. Ill-defined infiltrates involving the visualized left lower lung more so than the right. Sequela of aspiration or an atypical pneumonia could have this appearance. 4. Partially mineralized nodule off the medial pole of the left kidney measuring around 1 cm. A calcified cyst would be the most likely etiology but no comparison studies are available to determine stability. Consider 3-6 month ultrasound follow-up to assess for any change. 5. Punctate nonobstructing intrarenal stone at the upper pole of the right kidney. 6. Additional chronic observations as detailed above. RUQ US 09/09 Findings: Edematous appearance of the pancreas. Liver is increased in echogenicity. Right hepatic lobe measures 17.8 cm. Portal flow is hepatopedal. Cholelithiasis. No gallbladder wall thickening. No pericholecystic fluid. Common bile duct measures 5 mm in diameter. The right kidney measures 4.7 x 5.9 x 4.5 cm. No hydronephrosis. Visualized portions of the aorta and IVC have normal caliber. IMPRESSION: 1. Cholelithiasis. 2. Edematous pancreas compatible with known pancreatitis. 3. Increased hepatic echotexture, may indicate steatosis. PE: GEN: NAD HEENT: Atraumatic, PERRL - voice is hoarse LUNGS: clear anteriorly HEART: borderlien tachcyardic ABD: quiet, round, soft, perhaps very mildly tender in epigastrium EXTREMITY: No edema SKIN: No rashes, no jaundice NEURO/PSYCH: A & O 3 A/P: A/P: N/v ACD, hyperglycemia/DM, JAQUAN, hyponatremia, hypokalemia ?pancreatitis, cholelithiasis - denies abdominal pain H/o GERD - none since quit chewing tobacco in his 20s CRC screen - none Hepatic steatosis Chronic pain on Percocet -- Will review w/ Dr. Marrero - n/v main symptom - imaging notes possible pancreatitis and cholelithiasis. 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 Would benefit from outpt 'scopes. Defer glucose control to Dr. Walter. ADAN PEREZ Sep 10, 2019 14:38
[2019-09-10] MEDS: INSULIN REGULAR VIAL 100 UNIT in IV NORMAL SALINE 100ML 100 ML IV PRN ×2 (15:01→21:21)
[2019-09-10 15:33] LABS: BILIRUBIN,URINE NEGATIVE (NEG); CLARITY,URINE CLEAR; COLOR,URINE YELLOW; NITRITE,URINE NEGATIVE (NEG); PH,URINE 5.5 (<5.0-8.0); PROTEIN,URINE 100 mg/dL (NEG-TRACE); UROBILINOGEN,URINE 0.2 mg/dL (0.2 mg/dL)
--- NOTE | 2019-09-10 15:42 | PHYS DOC ---
Past Medical History Past Medical History: Anxiety, Bipolar, Depression, Diabetes-Type II, Hypertension, Other Additional Past Medical Histor: chronic back pain Past Surgical History: Knee Replacement, Other Additional Past Surgical Histo: cardiac cath, skin cancer removal, L KNEE SCOPE Smoking Status: Light Tobacco Smoker Additional Information: CIGAR Alcohol Use: Rarely Drug Use: None General Adult EDM: Chief Complaint: NAUSEA/VOMITING/DIARRHA HPI: HPI: Patient is a 49 year old male who presents with nausea, vomiting, fatigue. Patient states that he is had vomiting for the last 2 weeks. He has had significant decrease in appetite since that started. He denies any abdominal pain with it. He has not had any diarrhea, melena, hemoptysis. He did develop a strained voice and rhinorrhea today. He did not previously have these. He has not found anything that makes his symptoms any better. Review of Systems: Review of Systems: General: Denies fever, chills, sweats. Reports fatigue Eyes: Denies drainage, blurred vision HENT: Reports rhinorrhea, strained voice Respiratory: Denies cough, shortness of breath, wheezing Cardiac: Denies edema, palpitations, chest pain GI: Denies abdominal pain.reports N/V MSK: Denies back pain, neck pain Skin: Denies rash, jaundice Neuro: Denies headache, dizziness Psychiatric: Denies SI/HI Heart Score: Risk Factors: Risk Factors: DM, Current or recent (<one month) smoker, HTN, HLP, family history of CAD, obesity. Risk Scores: Score 0 - 3: 2.5% MACE over next 6 weeks - Discharge Home Score 4 - 6: 20.3% MACE over next 6 weeks - Admit for Clinical Observation Score 7 - 10: 72.7% MACE over next 6 weeks - Early Invasive Strategies Current Medications: Current Medications Medications (Trade) Dose Ordered Sig/Edilma Start Time Stop Time Status Last Admin Dose Admin Ondansetron HCl (Zofran) 4 mg 1X ONCE 09/10/19 11:00 09/10/19 11:01 DC 09/10/19 11:06 4 MG Sodium Chloride 1,000 ml @ 0 mls/hr 1X ONCE 09/10/19 11:00 09/10/19 11:01 DC 09/10/19 11:06 1,000 MLS/HR Allergies: Allergies: Allergies Coded Allergies Type Severity Reaction Last Updated Verified daptomycin Allergy Intermediate chills, nausea 08/09/19 Yes I S O L A T I O N *CONTACT* Allergy Unknown Unknown 08/14/19 Yes No Known Medication Allergies Allergy Unknown Unknown 08/14/19 Yes ketamine Allergy Unknown Unknown 08/14/19 Yes Physical Exam: PE: Constitutional: Well developed, well nourished, Cooperative, NAD, non-toxic appearing HEENT: Normocephalic, atraumatic, oropharynx moist, EOMI, PERRL, no drainage from eyes, normal conjunctiva, strained voice Neck: Supple, normal range of motion, no stridor Cardiovascular: RRR, 2+ radial pulses bilaterally, no edema Respiratory: CTA bilaterally, no respiratory distress, no wheezing/crackles Abdomen: Soft, nontender, nondistended, no masses Skin: Warm, dry, intact Extremities: No obvious deformities Neurologic: Alert and Oriented x3, motor and sensory function grossly normal, no focal deficits Psychologic: Normal affect, normal judgment, normal mood. No SI/HI Current Patient Data: Labs: Laboratory Tests Test 09/10/19 10:05 09/10/19 13:32 09/10/19 14:55 White Blood Count 11.2 x10^3/uL (4.0-11.0) H Red Blood Count 5.24 x10^6/uL (4.30-5.70) Hemoglobin 11.6 g/dL (13.0-17.5) L Hematocrit 36.6 % (39.0-53.0) L Mean Corpuscular Volume 70 fL (79-100) L Mean Corpuscular Hemoglobin 22 pg (25-35) L Mean Corpuscular Hemoglobin Concent 32 g/dL (31-37) Red Cell Distribution Width 19.8 % (11.5-14.5) H Platelet Count 323 x10^3/uL (140-400) Neutrophils (%) (Auto) 83 % (31-73) H Lymphocytes (%) (Auto) 7 % (24-48) L Monocytes (%) (Auto) 9 % (0-9) Eosinophils (%) (Auto) 0 % (0-3) Basophils (%) (Auto) 1 % (0-3) Neutrophils # (Auto) 9.3 x10^3/uL (1.8-7.7) H Lymphocytes # (Auto) 0.8 x10^3/uL (1.0-4.8) L Monocytes # (Auto) 1.0 x10^3/uL (0.0-1.1) Eosinophils # (Auto) 0.0 x10^3/uL (0.0-0.7) Basophils # (Auto) 0.1 x10^3/uL (0.0-0.2) Platelet Estimate Adequate (ADEQUATE) Anisocytosis Slight Microcytosis Slight Sodium Level 128 mmol/L (136-145) L Potassium Level 3.2 mmol/L (3.5-5.1) L Chloride Level 84 mmol/L (98-107) L Carbon Dioxide Level 28 mmol/L (21-32) Anion Gap 16 (6-14) H Blood Urea Nitrogen 44 mg/dL (8-26) H Creatinine 2.2 mg/dL (0.7-1.3) H Estimated GFR (Cockcroft-Gault) 31.8 BUN/Creatinine Ratio 20 (6-20) Glucose Level 711 mg/dL (70-99) *H Calcium Level 9.0 mg/dL (8.5-10.1) Total Bilirubin 0.8 mg/dL (0.2-1.0) Aspartate Amino Transferase (AST) 22 U/L (15-37) Alanine Aminotransferase (ALT) 31 U/L (16-63) Alkaline Phosphatase 211 U/L (46-116) H Total Protein 7.2 g/dL (6.4-8.2) Albumin 2.6 g/dL (3.4-5.0) L Albumin/Globulin Ratio 0.6 (1.0-1.7) L Lipase 746 U/L (73-393) H [place] Level < 0.2 mmol/L (0.6-1.2) L [place] Last Dose Date Unknown [place] Last Dose Time Unknown Glucose (Fingerstick) 553 mg/dL (70-99) *H 555 mg/dL (70-99) *H Laboratory Tests 09/10/19 10:05 Laboratory Tests 09/10/19 10:05 Vital Signs: Vital Signs Date Time Temp Pulse Resp B/P (MAP) Pulse Ox O2 Delivery O2 Flow Rate FiO2 09/10/19 14:00 100 39 98 Nasal Cannula 3.0 09/10/19 09:38 98.6 98.6 EKG: EKG: [] Radiology/Procedures: Radiology/Procedures: [] Course & Med Decision Making: Course & Med Decision Making Pertinent Labs and Imaging studies reviewed. (See chart for details) Patient is a 49-year-old male who presents the emergency room complaining of nausea and vomiting for the last 2 weeks. Patient has a nontender abdomen, however given repetitive episodes of vomiting will order a CT abdomen pelvis to evaluate for pathology including obstruction, pancreatitis, cholecystitis, gas troenteritis, colitis. Abdominal labs including CBC, BMP, UA, lipase, LFTs were ordered. Patient has an elevated lipase. CT shows pancreatitis as well as concern for multiple gallstones. Ultrasound was ordered of the gallbladder to further evaluate for possible cholecystitis. Patient has a significantly elevated glucose. He will be given fluids here in the emergency room to help with dehydration and hyperglycemia. Patient will be admitted for further evaluation. Dragon Disclaimer: Dragon Disclaimer: This electronic medical record was generated, in whole or in part, using a voice recognition dictation system. Departure Departure Impression: Primary Impression: Pancreatitis Additional Impressions: Acute kidney injury Dehydration Disposition: ADMITTED INPATIENT Condition: STABLE Referrals: BAMBI SHEA APRN (PCP) AALIYAH CHAVEZ MD Sep 10, 2019 15:41
[2019-09-10] MEDS ORDERED: PROCHLORPERAZINE 10 MG/2 ML VIAL. IV PRN (15:45)
[2019-09-10] MEDS: ENOXAPARIN 40 MG/0.4 ML SYRINGE. SQ SCH (15:50)
[2019-09-10] MEDS: PIPERACILLIN/TAZOBACTAM 3.375 GM in IV NORMAL SALINE 50ML 50 ML IV SCH (15:51)
[2019-09-10] MEDS ORDERED: IPRATRPIUM/ALBUTEROL 0.5/2.5MG 3 ML NEBU. NEB SCH (16:00)
[2019-09-10 16:14] LABS: BACTERIA,URINE 0 /HPF (0-FEW); RBC,URINE RARE /HPF (0-2); SQUAMOUS EPITHELIAL CELL,UR MOD /LPF; YEAST,URINE PRESENT /HPF
[2019-09-10 17:42] LABS: ALBUMIN 2.5 g/dL (3.4-5.0); CALCIUM 8.9 mg/dL (8.5-10.1); GFR 35.5; PHOSPHORUS 2.3 mg/dL (2.6-4.7)
[2019-09-10 17:45] LABS: POTASSIUM 2.6 mmol/L (3.5-5.1)
--- NOTE | 2019-09-10 17:45 | NUR ---
critical K+ 2.6 reported to MARCUS Carmona
[2019-09-10] MEDS ORDERED: POTASSIUM PHOS,M-BASIC-D-BASIC 13.6 MMOL in IV NORMAL SALINE 250ML 250 ML IV ONE (18:00)
[2019-09-10] MEDS: POTASSIUM CHLORIDE 20MEQ 100 ML IV SCH ×3 (18:20→21:20)
--- NOTE | 2019-09-10 18:26 | NUR ---
Pt admitted to 265 via ADY bentley RN at approximately 1430. Pt admitted to Dr Walter for acute pancreatitis, hyperglycemia. Several consults- calls placed to services. Upon admission, pt A&Ox4, all VSS, complaints of throat soreness and voice is hoarse. Pt blood sugar via fingerstick 555 on arrival, insulin gtt started per glucostabilizer protocol, see IV spreadsheet. Pt noted to have R chest CL from [facility]- pt states was placed several wks ago after several complications with a L total knee replacement- requiring group home IV antibiotics. RN unable to get blood return from either lumen, flushes well. L knee noted to have bandage from recent I&D 07/12/19. Dressing changed, incision pictured. Critical lab value received at 1745, potassium level of 2.6. Dr Walter notified, orders received to replace electrolytes per ICU electrolyte protocol. Pt still on insulin gtt with hourly finger checks, resting peacefully.
[2019-09-10] MEDS ORDERED: ALBUTEROL SULFATE 2.5 MG/3 ML NEBU. NEB PRN (20:00)
[2019-09-10 21:16] LABS: ALBUMIN 2.5 g/dL (3.4-5.0); CALCIUM 8.9 mg/dL (8.5-10.1); CREATININE 1.9 mg/dL (0.7-1.3); GFR 37.7; PHOSPHORUS 2.7 mg/dL (2.6-4.7); POTASSIUM 3.6 mmol/L (3.5-5.1)
[2019-09-11] VITALS (22 sets, daily range): BP systolic 137–181; BP diastolic 74–102
[2019-09-11] MEDS: PIPERACILLIN/TAZOBACTAM 3.375 GM in IV NORMAL SALINE 50ML 50 ML IV SCH ×5 (00:11→23:41)
[2019-09-11] MEDS: IV NORMAL SALINE 1000ML BAG 1,000 ML IV SCH ×2 (03:22→16:01)
[2019-09-11] MEDS: ONDANSETRON PF 4 MG/2 ML VIAL. IV PRN ×3 (03:22→23:41)
[2019-09-11] MEDS: hydrALAZINE 20 MG/ML VIAL. IVP PRN (03:23)
[2019-09-11 04:38] LABS: BASO % 0 % (0-3); EOS % 0 % (0-3); HEMATOCRIT 35.3 % (39.0-53.0); HEMOGLOBIN 11.4 g/dL (13.0-17.5); LYMPH # 1.7 x10^3/uL (1.0-4.8); LYMPH % 14 % (24-48); MEAN CORPUSCULAR HEMOGLOBIN 22 pg (25-35); MEAN CORPUSCULAR HGB CONC 32 g/dL (31-37); MEAN CORPUSCULAR VOLUME 70 fL (79-100); MONO # 1.2 x10^3/uL (0.0-1.1); MONO % 10 % (0-9); NEUT # 9.6 x10^3/uL (1.8-7.7); NEUT % 76 % (31-73); PLATELET COUNT 387 x10^3/uL (140-400); RED BLOOD COUNT 5.08 x10^6/uL (4.30-5.70); RED CELL DISTRIBUTION WIDTH 20.3 % (11.5-14.5); WHITE BLOOD COUNT 12.6 x10^3/uL (4.0-11.0)
[2019-09-11 04:47] LABS: ALBUMIN 2.5 g/dL (3.4-5.0); ALBUMIN/GLOBULIN RATIO 0.5 (1.0-1.7); CALCIUM 8.9 mg/dL (8.5-10.1); CREATININE 2.1 mg/dL (0.7-1.3); GFR 33.6; POTASSIUM 3.1 mmol/L (3.5-5.1); TOTAL BILIRUBIN 0.7 mg/dL (0.2-1.0); TOTAL PROTEIN 7.1 g/dL (6.4-8.2)
[2019-09-11] MEDS: INSULIN LISPRO 300 UNITS/3 ML VIAL. SQ SCH ×4 (08:00→21:15)
[2019-09-11] MEDS: POTASSIUM CHLORIDE 20MEQ 100 ML IV SCH ×2 (08:11→10:05)
[2019-09-11] MEDS: PANTOPRAZOLE IV PUSH 40 MG VIAL. IVP SCH (08:12)
[2019-09-11] MEDS ORDERED: LISINOPRIL 5 MG TABLET. PO PRN (09:45)
[2019-09-11] MEDS ORDERED: tiZANidine 4 MG TABLET. PO PRN (09:45)
--- NOTE | 2019-09-11 09:59 | PDOC2 ---
CONSULT Date of Consult Date of Consult DATE: 09/11/19 TIME: 09:44 Reason for Consult Reason for Consult: JAQUAN Referring Physician Referring Physician: Jose Angel Source Source: Chart review History of Present Illness Reason for Visit: Patient is a 49 year old CM who presents with nausea, vomiting, fatigue. He has had vomiting for the last 2 weeks and significant decrease in appetite since that started. He denies any abdominal pain , no diarrhea, melena He noticed a little red blood in emesis yesterday - bleeding has not recurred. He is c/o rhinorrhea and hoarse voice No cough , fever, chills . Denies CP or SOB . Denies urinary complaints , No UTI symptoms. No Hx of Nephrolithiasis Currently state have some nausea, bringing up phlegm but no vomiting . He takes Advil 400 mg at bedtime for head ache at least 3-4 times per week . No other OTC supplements Denies hx of DR. He has a wound on his Lt Knee- states at least since May of this year but started having issues since his knee replacement last year . Most recently on Doxy and Clinda at home . Past Medical History Cardiovascular: HTN Heme/Onc: No pertinent hx Hepatobiliary: No pertinent hx Psych: No pertinent hx, Bipolar, Other Musculoskeletal: low back pain Rheumatologic: No pertinent hx Endocrine: Hypothyroidism Past Surgical History Past Surgical History: Total knee replacement Family History Family History: No Significant, High Cholestrol, Hypertension Social History <1 pack per day ALCOHOL: occassional Drugs: None Current Problem List Problem List Problems Medical Problems: (1) Acute kidney injury Status: Acute (2) Dehydration Status: Acute Current Medications Current Medications Current Medications Sodium Chloride 1,000 ml @ 0 mls/hr 1X ONCE IV Last administered on 09/10/19at 11:06; Start 09/10/19 at 11:00; Stop 09/10/19 at 11:01; Status DC Ondansetron HCl (Zofran) 4 mg 1X ONCE IVP Last administered on 09/10/19at 11:06; Start 09/10/19 at 11:00; Stop 09/10/19 at 11:01; Status DC Sodium Chloride (Normal Saline Flush) 3 ml QSHIFT PRN IV AFTER MEDS AND BLOOD DRAWS Last administered on 09/10/19at 13:54; Start 09/10/19 at 13:15 Sodium Chloride 1,000 ml @ 100 mls/hr Q10H IV Last administered on 09/11/19at 03:22; Start 09/10/19 at 13:05 Ondansetron HCl (Zofran) 4 mg PRN Q4HRS PRN IV NAUSEA/VOMITING Last administered on 09/11/19at 03:22; Start 09/10/19 at 13:15 Acetaminophen (Tylenol Supp) 650 mg PRN Q4HRS PRN UT TEMP OVER 100.4F OR MILD PAIN; Start 09/10/19 at 13:15 Clonidine HCl (Catapres) 0.1 mg PRN Q6HRS PRN PO SBP>160 OR DBP>90; Start 09/10/19 at 13:15 Docusate Sodium (Colace) 100 mg PRN BID PRN PO HARD STOOLS; Start 09/10/19 at 13:15 Albuterol/ Ipratropium (Duoneb) 3 ml Q4HRS NEB ; Start 09/10/19 at 16:00; Stop 09/10/19 at 19:57; Status DC Enoxaparin Sodium (Lovenox 40mg Syringe) 40 mg Q24H SQ Last administered on 09/10/19at 15:50; Start 09/10/19 at 15:00 Piperacillin Sod/ Tazobactam Sod 3.375 gm/Sodium Chloride 50 ml @ 100 mls/hr Q6HRS IV Last administered on 09/11/19at 06:04; Start 09/10/19 at 16:00 Insulin Human Regular 100 unit/ Sodium Chloride 101 ml @ 0 mls/hr CONT PRN IV SEE I/O RECORD Last administered on 09/10/19at 21:21; Start 09/10/19 at 13:15 Dextrose (Dextrose 50%-Water Syringe) 12.5 gm PRN Q15MIN PRN IV LOW BLOOD SUGAR; Start 09/10/19 at 13:15; Stop 09/10/19 at 21:06; Status DC Dextrose (Iv Dextrose 5%) 250 ml PRN Q15MIN PRN IV LOW BLOOD SUGAR; Start 09/10/19 at 13:15 Insulin Human Regular 0 ml @ As Directed STK-MED ONCE IV ; Start 09/10/19 at 13:47; Stop 09/10/19 at 13:47; Status DC Pantoprazole Sodium (PROTONIX VIAL for IV PUSH) 40 mg DAILYAC IVP Last administered on 09/11/19at 08:12; Start 09/11/19 at 07:30 Prochlorperazine Edisylate (Compazine) 10 mg PRN Q6HRS PRN IV NAUSEA/VOMITING- 2ND CHOICE Last administered on 09/10/19at 15:53; Start 09/10/19 at 15:45 Hydralazine HCl (Apresoline Inj) 10 mg PRN Q4HRS PRN IVP ELEVATED BP, SEE COMMENTS Last administered on 09/11/19at 03:23; Start 09/10/19 at 15:45 Potassium Chloride/Water 100 ml @ 100 mls/hr Q1H IV Last administered on 09/10/19at 21:20; Start 09/10/19 at 18:00; Stop 09/10/19 at 20:59; Status DC Potassium Phosphate 13.6 mmol/Sodium Chloride 254.5333 ml @ 62.5 mls/hr 1X ONCE IV Last administered on 09/10/19at 18:24; Start 09/10/19 at 18:00; Stop 09/10/19 at 22:04; Status DC Albuterol Sulfate (Ventolin Neb Soln) 2.5 mg PRN Q4HRS PRN NEB WHEEZING; Start 09/10/19 at 20:00 Insulin Human Lispro (HumaLOG) 0-7 UNITS TIDWMEALS SQ ; Start 09/11/19 at 08:00 Dextrose (Dextrose 50%-Water Syringe) 12.5 gm PRN Q15MIN PRN IV SEE COMMENTS; Start 09/10/19 at 21:15 Potassium Chloride/Water 100 ml @ 100 mls/hr Q1H IV Last administered on 09/11/19at 08:11; Start 09/11/19 at 07:00; Stop 09/11/19 at 08:59; Status DC Lidocaine (Lidoderm) 1 patch DAILY TP ; Start 09/12/19 at 09:00; Status UNV Lisinopril (Prinivil) 5 mg DAILY PRN PO hypertension; Start 09/11/19 at 09:45; Status UNV Oxycodone/ Acetaminophen (Percocet 7.5/ 325) 1 tab PRN Q6HRS PRN PO PAIN; Start 09/11/19 at 09:45; Status UNV Non-Formulary Medication (Clonazepam ) 1 mg BID PO ; Start 09/11/19 at 21:00; Status UNV Non-Formulary Medication (Doxepin Hcl ) 300 mg HS PO ; Start 09/11/19 at 21:00; Status UNV Non-Formulary Medication ([place] Carbonate ) 1 tab BID PO ; Start 09/11/19 at 21:00; Status UNV Non-Formulary Medication (Sitagliptin Phos/Metformin Hcl (Janumet 50-1,000 Mg Tablet)) 1 tab BID PO ; Start 09/11/19 at 21:00; Status UNV Non-Formulary Medication (Tizanidine Hcl (Zanaflex)) 1 cap TID PRN PO MUSCLE SPASTICITY; Start 09/11/19 at 09:45; Status UNV Active Scripts Active Reported Lidocaine PATCH (Lidocaine) 1 Each Adh..patch 1 Each TP DAILY REMOVE AFTER 12 HOURS Lisinopril 5 Mg Tablet 1 Tab PO DAILY PRN Percocet 7.5-325 Mg Tablet (Oxycodone/Acetaminophen) 1 Each Tablet 1 Tab PO PRN Q6HRS PRN Clonazepam 1 Mg Tablet 1 Mg PO BID [place] Carbonate 300 Mg Tablet 1 Tab PO BID Zanaflex (Tizanidine Hcl) 4 Mg Capsule 1 Cap PO TID PRN Janumet 50-1,000 Mg Tablet (Sitagliptin Phos/Metformin Hcl) 1 Each Tablet 1 Tab PO BID Doxepin Hcl 50 Mg Capsule 300 Mg PO HS Allergies Allergies: Coded Allergies: daptomycin (Verified Allergy, Intermediate, chills, nausea , 08/09/19) I S O L A T I O N *CONTACT* (Verified Allergy, Unknown, Unknown, 08/14/19) mrsa No Known Medication Allergies (Verified Allergy, Unknown, Unknown, 08/14/19) ketamine (Verified Allergy, Unknown, Unknown, 08/14/19) ROS Review of System Per HPI Physical Exam Physical Exam General: NAD HEENT: OM dry Neck Supple Lungs: Clear to auscultation, Non labored Heart: RRR Abdomen: soft Extremities: No cyanosis, No LE edema Neuro: Grossly normal Psych/Mental Status: Mental status NL, Mood NL No barr, No SP or CVA tenderness Vital Signs Vital Signs Date Time Temp Pulse Resp B/P (MAP) Pulse Ox O2 Delivery O2 Flow Rate FiO2 09/11/19 06:00 107 18 152/85 (107) 97 Room Air 09/11/19 04:00 98.6 98.6 09/10/19 14:00 3.0 Assessment & Plan JAQUAN - ATN 2/2 dehydration- Intractable N/V Vomiting Good UOP, UA -no e/o GN Supportive care, IVF, Strict I/O, avoid nephrotoxins HypoKalemia- Replace HypoNatremia- Na corrects for Glucose (700's) at presentation Renal Cyst - Lt kidney per CT report - Partially mineralized nodule off the medial pole of the left kidney measuring around 1 cm. A calcified cyst would be the most likely etiology Consider 3-6 month ultrasound follow-up to assess for any change. Punctate nonobstructing intrarenal stone at the upper pole of the right kidney Acute pancreatitis - Non alcoholic, GI following Cholelithiasis - gallbladder lumen is filled with gallstones on CT Ill-defined infiltrates involving the visualized left lower lung more so than the right. Sequela of aspiration or an atypical pneumonia may have this appearance DM - Uncontrolled , No Diabetic Retinopathy per history UA with Overt proteinuria, suspect 2/2 DM , On Low dose Lisinopril per home meds HTN - antihypertensives Hx of Bipolar- Per Home list on [place], levels <0.2 Labs Labs Laboratory Tests Test 09/10/19 10:05 09/10/19 13:32 09/10/19 14:55 09/10/19 15:00 White Blood Count 11.2 x10^3/uL (4.0-11.0) Red Blood Count 5.24 x10^6/uL (4.30-5.70) Hemoglobin 11.6 g/dL (13.0-17.5) Hematocrit 36.6 % (39.0-53.0) Mean Corpuscular Volume 70 fL (79-100) Mean Corpuscular Hemoglobin 22 pg (25-35) Mean Corpuscular Hemoglobin Concent 32 g/dL (31-37) Red Cell Distribution Width 19.8 % (11.5-14.5) Platelet Count 323 x10^3/uL (140-400) Neutrophils (%) (Auto) 83 % (31-73) Lymphocytes (%) (Auto) 7 % (24-48) Monocytes (%) (Auto) 9 % (0-9) Eosinophils (%) (Auto) 0 % (0-3) Basophils (%) (Auto) 1 % (0-3) Neutrophils # (Auto) 9.3 x10^3/uL (1.8-7.7) Lymphocytes # (Auto) 0.8 x10^3/uL (1.0-4.8) Monocytes # (Auto) 1.0 x10^3/uL (0.0-1.1) Eosinophils # (Auto) 0.0 x10^3/uL (0.0-0.7) Basophils # (Auto) 0.1 x10^3/uL (0.0-0.2) Platelet Estimate Adequate (ADEQUATE) Anisocytosis Slight Microcytosis Slight Sodium Level 128 mmol/L (136-145) Potassium Level 3.2 mmol/L (3.5-5.1) Chloride Level 84 mmol/L (98-107) Carbon Dioxide Level 28 mmol/L (21-32) Anion Gap 16 (6-14) Blood Urea Nitrogen 44 mg/dL (8-26) Creatinine 2.2 mg/dL (0.7-1.3) Estimated GFR (Cockcroft-Gault) 31.8 BUN/Creatinine Ratio 20 (6-20) Glucose Level 711 mg/dL (70-99) Calcium Level 9.0 mg/dL (8.5-10.1) Total Bilirubin 0.8 mg/dL (0.2-1.0) Aspartate Amino Transf (AST/SGOT) 22 U/L (15-37) Alanine Aminotransferase (ALT/SGPT) 31 U/L (16-63) Alkaline Phosphatase 211 U/L (46-116) Total Protein 7.2 g/dL (6.4-8.2) Albumin 2.6 g/dL (3.4-5.0) Albumin/Globulin Ratio 0.6 (1.0-1.7) Lipase 746 U/L (73-393) [place] Level < 0.2 mmol/L (0.6-1.2) [place] Last Dose Date Unknown [place] Last Dose Time Unknown Glucose (Fingerstick) 553 mg/dL (70-99) 555 mg/dL (70-99) Urine Collection Type Unknown Urine Color Yellow Urine Clarity Clear Urine pH 5.5 (<5.0-8.0) Urine Specific [place] >=1.030 (1.000-1.030) Urine Protein 100 mg/dL (NEG-TRACE) Urine Glucose (UA) >=1000 mg/dL (NEG) Urine Ketones (Stick) 15 mg/dL (NEG) Urine Blood Trace (NEG) Urine Nitrite Negative (NEG) Urine Bilirubin Negative (NEG) Urine Urobilinogen Dipstick 0.2 mg/dL (0.2 mg/dL) Urine Leukocyte Esterase Negative (NEG) Urine RBC Rare /HPF (0-2) Urine WBC 1-4 /HPF (0-4) Urine Squamous Epithelial Cells Mod /LPF Urine Bacteria 0 /HPF (0-FEW) Urine Yeast Present /HPF Test 09/10/19 16:11 09/10/19 17:10 09/10/19 19:05 09/10/19 20:10 Glucose (Fingerstick) 448 mg/dL (70-99) 181 mg/dL (70-99) 168 mg/dL (70-99) Sodium Level 135 mmol/L (136-145) Potassium Level 2.6 mmol/L (3.5-5.1) Chloride Level 92 mmol/L (98-107) Carbon Dioxide Level 32 mmol/L (21-32) Anion Gap 11 (6-14) Blood Urea Nitrogen 40 mg/dL (8-26) Creatinine 2.0 mg/dL (0.7-1.3) Estimated GFR (Cockcroft-Gault) 35.5 Glucose Level 369 mg/dL (70-99) Calcium Level 8.9 mg/dL (8.5-10.1) Phosphorus Level 2.3 mg/dL (2.6-4.7) Magnesium Level 2.5 mg/dL (1.8-2.4) Albumin 2.5 g/dL (3.4-5.0) Test 09/10/19 20:45 09/10/19 21:23 09/10/19 22:31 09/10/19 23:26 Sodium Level 137 mmol/L (136-145) Potassium Level 3.6 mmol/L (3.5-5.1) Chloride Level 95 mmol/L (98-107) Carbon Dioxide Level 33 mmol/L (21-32) Anion Gap 9 (6-14) Blood Urea Nitrogen 42 mg/dL (8-26) Creatinine 1.9 mg/dL (0.7-1.3) Estimated GFR (Cockcroft-Gault) 37.7 Glucose Level 167 mg/dL (70-99) Calcium Level 8.9 mg/dL (8.5-10.1) Phosphorus Level 2.7 mg/dL (2.6-4.7) Albumin 2.5 g/dL (3.4-5.0) Glucose (Fingerstick) 143 mg/dL (70-99) 159 mg/dL (70-99) 156 mg/dL (70-99) Test 09/11/19 00:31 09/11/19 01:38 09/11/19 02:39 09/11/19 03:37 Glucose (Fingerstick) 198 mg/dL (70-99) 121 mg/dL (70-99) 79 mg/dL (70-99) 159 mg/dL (70-99) Test 09/11/19 04:14 09/11/19 06:02 09/11/19 07:07 09/11/19 08:09 White Blood Count 12.6 x10^3/uL (4.0-11.0) Red Blood Count 5.08 x10^6/uL (4.30-5.70) Hemoglobin 11.4 g/dL (13.0-17.5) Hematocrit 35.3 % (39.0-53.0) Mean Corpuscular Volume 70 fL (79-100) Mean Corpuscular Hemoglobin 22 pg (25-35) Mean Corpuscular Hemoglobin Concent 32 g/dL (31-37) Red Cell Distribution Width 20.3 % (11.5-14.5) Platelet Count 387 x10^3/uL (140-400) Neutrophils (%) (Auto) 76 % (31-73) Lymphocytes (%) (Auto) 14 % (24-48) Monocytes (%) (Auto) 10 % (0-9) Eosinophils (%) (Auto) 0 % (0-3) Basophils (%) (Auto) 0 % (0-3) Neutrophils # (Auto) 9.6 x10^3/uL (1.8-7.7) Lymphocytes # (Auto) 1.7 x10^3/uL (1.0-4.8) Monocytes # (Auto) 1.2 x10^3/uL (0.0-1.1) Eosinophils # (Auto) 0.0 x10^3/uL (0.0-0.7) Basophils # (Auto) 0.0 x10^3/uL (0.0-0.2) Sodium Level 139 mmol/L (136-145) Potassium Level 3.1 mmol/L (3.5-5.1) Chloride Level 97 mmol/L (98-107) Carbon Dioxide Level 27 mmol/L (21-32) Anion Gap 15 (6-14) Blood Urea Nitrogen 42 mg/dL (8-26) Creatinine 2.1 mg/dL (0.7-1.3) Estimated GFR (Cockcroft-Gault) 33.6 BUN/Creatinine Ratio 20 (6-20) Glucose Level 126 mg/dL (70-99) Calcium Level 8.9 mg/dL (8.5-10.1) Total Bilirubin 0.7 mg/dL (0.2-1.0) Aspartate Amino Transf (AST/SGOT) 30 U/L (15-37) Alanine Aminotransferase (ALT/SGPT) 27 U/L (16-63) Alkaline Phosphatase 192 U/L (46-116) Total Protein 7.1 g/dL (6.4-8.2) Albumin 2.5 g/dL (3.4-5.0) Albumin/Globulin Ratio 0.5 (1.0-1.7) Glucose (Fingerstick) 116 mg/dL (70-99) 128 mg/dL (70-99) 152 mg/dL (70-99) Test 09/11/19 09:11 Glucose (Fingerstick) 155 mg/dL (70-99) Laboratory Tests Test 09/10/19 10:05 09/10/19 13:32 09/10/19 14:55 09/10/19 15:00 White Blood Count 11.2 x10^3/uL (4.0-11.0) Red Blood Count 5.24 x10^6/uL (4.30-5.70) Hemoglobin 11.6 g/dL (13.0-17.5) Hematocrit 36.6 % (39.0-53.0) Mean Corpuscular Volume 70 fL (79-100) Mean Corpuscular Hemoglobin 22 pg (25-35) Mean Corpuscular Hemoglobin Concent 32 g/dL (31-37) Red Cell Distribution Width 19.8 % (11.5-14.5) Platelet Count 323 x10^3/uL (140-400) Neutrophils (%) (Auto) 83 % (31-73) Lymphocytes (%) (Auto) 7 % (24-48) Monocytes (%) (Auto) 9 % (0-9) Eosinophils (%) (Auto) 0 % (0-3) Basophils (%) (Auto) 1 % (0-3) Neutrophils # (Auto) 9.3 x10^3/uL (1.8-7.7) Lymphocytes # (Auto) 0.8 x10^3/uL (1.0-4.8) Monocytes # (Auto) 1.0 x10^3/uL (0.0-1.1) Eosinophils # (Auto) 0.0 x10^3/uL (0.0-0.7) Basophils # (Auto) 0.1 x10^3/uL (0.0-0.2) Platelet Estimate Adequate (ADEQUATE) Anisocytosis Slight Microcytosis Slight Sodium Level 128 mmol/L (136-145) Potassium Level 3.2 mmol/L (3.5-5.1) Chloride Level 84 mmol/L (98-107) Carbon Dioxide Level 28 mmol/L (21-32) Anion Gap 16 (6-14) Blood Urea Nitrogen 44 mg/dL (8-26) Creatinine 2.2 mg/dL (0.7-1.3) Estimated GFR (Cockcroft-Gault) 31.8 BUN/Creatinine Ratio 20 (6-20) Glucose Level 711 mg/dL (70-99) Calcium Level 9.0 mg/dL (8.5-10.1) Total Bilirubin 0.8 mg/dL (0.2-1.0) Aspartate Amino Transf (AST/SGOT) 22 U/L (15-37) Alanine Aminotransferase (ALT/SGPT) 31 U/L (16-63) Alkaline Phosphatase 211 U/L (46-116) Total Protein 7.2 g/dL (6.4-8.2) Albumin 2.6 g/dL (3.4-5.0) Albumin/Globulin Ratio 0.6 (1.0-1.7) Lipase 746 U/L (73-393) [place] Level < 0.2 mmol/L (0.6-1.2) [place] Last Dose Date Unknown [place] Last Dose Time Unknown Glucose (Fingerstick) 553 mg/dL (70-99) 555 mg/dL (70-99) Urine Collection Type Unknown Urine Color Yellow Urine Clarity Clear Urine pH 5.5 (<5.0-8.0) Urine Specific [place] >=1.030 (1.000-1.030) Urine Protein 100 mg/dL (NEG-TRACE) Urine Glucose (UA) >=1000 mg/dL (NEG) Urine Ketones (Stick) 15 mg/dL (NEG) Urine Blood Trace (NEG) Urine Nitrite Negative (NEG) Urine Bilirubin Negative (NEG) Urine Urobilinogen Dipstick 0.2 mg/dL (0.2 mg/dL) Urine Leukocyte Esterase Negative (NEG) Urine RBC Rare /HPF (0-2) Urine WBC 1-4 /HPF (0-4) Urine Squamous Epithelial Cells Mod /LPF Urine Bacteria 0 /HPF (0-FEW) Urine Yeast Present /HPF Test 09/10/19 16:11 09/10/19 17:10 09/10/19 19:05 09/10/19 20:10 Glucose (Fingerstick) 448 mg/dL (70-99) 181 mg/dL (70-99) 168 mg/dL (70-99) Sodium Level 135 mmol/L (136-145) Potassium Level 2.6 mmol/L (3.5-5.1) Chloride Level 92 mmol/L (98-107) Carbon Dioxide Level 32 mmol/L (21-32) Anion Gap 11 (6-14) Blood Urea Nitrogen 40 mg/dL (8-26) Creatinine 2.0 mg/dL (0.7-1.3) Estimated GFR (Cockcroft-Gault) 35.5 Glucose Level 369 mg/dL (70-99) Calcium Level 8.9 mg/dL (8.5-10.1) Phosphorus Level 2.3 mg/dL (2.6-4.7) Magnesium Level 2.5 mg/dL (1.8-2.4) Albumin 2.5 g/dL (3.4-5.0) Test 09/10/19 20:45 09/10/19 21:23 09/10/19 22:31 6/1/20 23:26 Sodium Level 137 mmol/L (136-145) Potassium Level 3.6 mmol/L (3.5-5.1) Chloride Level 95 mmol/L (98-107) Carbon Dioxide Level 33 mmol/L (21-32) Anion Gap 9 (6-14) Blood Urea Nitrogen 42 mg/dL (8-26) Creatinine 1.9 mg/dL (0.7-1.3) Estimated GFR (Cockcroft-Gault) 37.7 Glucose Level 167 mg/dL (70-99) Calcium Level 8.9 mg/dL (8.5-10.1) Phosphorus Level 2.7 mg/dL (2.6-4.7) Albumin 2.5 g/dL (3.4-5.0) Glucose (Fingerstick) 143 mg/dL (70-99) 159 mg/dL (70-99) 156 mg/dL (70-99) Test 09/11/19 00:31 09/11/19 01:38 09/11/19 02:39 09/11/19 03:37 Glucose (Fingerstick) 198 mg/dL (70-99) 121 mg/dL (70-99) 79 mg/dL (70-99) 159 mg/dL (70-99) Test 09/11/19 04:14 09/11/19 06:02 09/11/19 07:07 09/11/19 08:09 White Blood Count 12.6 x10^3/uL (4.0-11.0) Red Blood Count 5.08 x10^6/uL (4.30-5.70) Hemoglobin 11.4 g/dL (13.0-17.5) Hematocrit 35.3 % (39.0-53.0) Mean Corpuscular Volume 70 fL (79-100) Mean Corpuscular Hemoglobin 22 pg (25-35) Mean Corpuscular Hemoglobin Concent 32 g/dL (31-37) Red Cell Distribution Width 20.3 % (11.5-14.5) Platelet Count 387 x10^3/uL (140-400) Neutrophils (%) (Auto) 76 % (31-73) Lymphocytes (%) (Auto) 14 % (24-48) Monocytes (%) (Auto) 10 % (0-9) Eosinophils (%) (Auto) 0 % (0-3) Basophils (%) (Auto) 0 % (0-3) Neutrophils # (Auto) 9.6 x10^3/uL (1.8-7.7) Lymphocytes # (Auto) 1.7 x10^3/uL (1.0-4.8) Monocytes # (Auto) 1.2 x10^3/uL (0.0-1.1) Eosinophils # (Auto) 0.0 x10^3/uL (0.0-0.7) Basophils # (Auto) 0.0 x10^3/uL (0.0-0.2) Sodium Level 139 mmol/L (136-145) Potassium Level 3.1 mmol/L (3.5-5.1) Chloride Level 97 mmol/L (98-107) Carbon Dioxide Level 27 mmol/L (21-32) Anion Gap 15 (6-14) Blood Urea Nitrogen 42 mg/dL (8-26) Creatinine 2.1 mg/dL (0.7-1.3) Estimated GFR (Cockcroft-Gault) 33.6 BUN/Creatinine Ratio 20 (6-20) Glucose Level 126 mg/dL (70-99) Calcium Level 8.9 mg/dL (8.5-10.1) Total Bilirubin 0.7 mg/dL (0.2-1.0) Aspartate Amino Transf (AST/SGOT) 30 U/L (15-37) Alanine Aminotransferase (ALT/SGPT) 27 U/L (16-63) Alkaline Phosphatase 192 U/L (46-116) Total Protein 7.1 g/dL (6.4-8.2) Albumin 2.5 g/dL (3.4-5.0) Albumin/Globulin Ratio 0.5 (1.0-1.7) Glucose (Fingerstick) 116 mg/dL (70-99) 128 mg/dL (70-99) 152 mg/dL (70-99) Test 09/11/19 09:11 Glucose (Fingerstick) 155 mg/dL (70-99) Review All relevant outside records, renal labs, imaging studies, telemetry/EKG's were reviewed. Images Images US abdomen- Liver is increased in echogenicity. Right hepatic lobe measures 17.8 cm. Portal flow is hepatopedal. Cholelithiasis. No gallbladder wall thickening. No pericholecystic fluid. Common bile duct measures 5 mm in diameter. The right kidney measures 4.7 x 5.9 x 4.[address] abdomen/Pelvis w/o Contrast-- Chest: Ill-defined infiltrates involving the visualized lingula and left lower lobe. There also is the suggestion of less pronounced infiltrates within the right middle lobe and medial right lower lobe. Circumferential thickening of the distal esophageal wall. There appears to be some fluid within the distal esophageal lumen. Calcific coronary artery disease. Liver: Low-attenuation of the hepatic parenchyma relative to the spleen suggesting a degree of hepatic steatosis. Gallbladder/Biliary Tree: Much of the gallbladder is filled with radiodense gallstones. Noting motion artifact the gallbladder wall does not appear overtly thickened. No definite radiodense stone within the common duct. Pancreas: Inflammatory changes surrounding the pancreas greatest along the body and tail. No discrete fluid collection. Limited assessment for pancreatic necrosis without intravenous contrast. Spleen: Upper limits of normal craniocaudal dimension of the spleen measuring just over 13 cm. Adrenal Glands: Within normal limits. Kidneys/Ureters/Bladder: Small exophytic focus off the medial aspect of the left lower kidney, image 46 series 2, with intrinsic increased density compatible with mineralization. On image 46 this measures 1 cm. Punctate nonobstructing intrarenal stone at the upper pole of the right kidney. No hydroureteronephrosis. Mildly distended urinary bladder without wall thickening. Reproductive Organs: The prostate is prominent size at 5 cm transverse. Mineralization along the left lateral aspect of the prostate. Colon: Mild wall thickening of the colon just distal to the splenic flexure is favored reactive from pancreatitis. Ileocecal valve is located within the left lower quadrant. Mild to moderate volume of formed stool within the proximal colon. Appendix: A portion of the appendix is believed to be seen on image 56 series 2 and is unremarkable. Small Bowel: Nonobstructed. Mild reactive inflammatory changes along the second portion of the duodenum. Stomach: Mildly distended without discrete abnormality. Vasculature: Nonaneurysmal aorta. Mild scattered calcific atherosclerosis. Lymph Nodes: Within normal limits for size. Peritoneum and Body Wall: Inflammatory changes extend from the pancreas to involve the upper/central mesentery. Surgical changes and a small amount of fluid extend along the left paracolic gutter. Bones: No acute or aggressive osseous process. Scattered degenerative changes seen to the greatest degree at L5-S1 more so than L4-L5. Grade 1 anterolisthesis of L4 on L5. Miscellaneous: None. Impression: 1. Degraded study secondary to motion artifact. 2. Peripancreatic inflammatory changes compatible with acute pancreatitis. No fluid collection is identified. No obvious focal parenchymal hypoattenuation to suggest pancreatic necrosis noting the absence of intravenous contrast. Note is made that much of the gallbladder lumen is filled with gallstones and though no stone is definitively seen within the common bile duct, gallstone pancreatitis remains a consideration. 3. Ill-defined infiltrates involving the visualized left lower lung more so than the right. Sequela of aspiration or an atypical pneumonia could have this appearance. 4. Partially mineralized nodule off the medial pole of the left kidney measuring around 1 cm. A calcified cyst would be the most likely etiology but no comparison studies are available to determine stability. Consider 3-6 month ultrasound follow-up to assess for any change. 5. Punctate nonobstructing intrarenal stone at the upper pole of the right kidney. 6. Additional chronic observations as detailed above. NIALL PAINTER MD Sep 11, 2019 09:59
[2019-09-11] MEDS ORDERED: metFORMIN 500 MG TABLET PO SCH (10:00)
[2019-09-11] MEDS: LINAGLIPTIN 5 MG TABLET PO SCH (10:00)
[2019-09-11] MEDS: oxyCODONE/APAP 7.5/325 1 TAB TABLET PO PRN ×2 (10:04→16:01)
[2019-09-11] MEDS: LIDOCAINE (700MG/PATCH) PATCH. TP SCH (10:04)
[2019-09-11] MEDS: clonazePAM 0.5 MG TABLET PO SCH ×2 (10:04→21:10)
[2019-09-11] MEDS: LITHIUM CARBONATE ER 300 MG TABLET.ER PO SCH ×2 (10:04→21:10)
--- NOTE | 2019-09-11 10:28 | PDOC ---
Subjective: Subjective: Seen earlier this morning - Dr. Melton, nurse, and pt's mother present. Mother relates he DID have right-sided pain - he says no longer has pain. Ongoing nausea but wants something to drink - Dr. Melton d/w surgery - plans for clear liquids. Coughing up phlegm. Objective: Vital Signs: Vital Signs Date Time Temp Pulse Resp B/P (MAP) Pulse Ox O2 Delivery O2 Flow Rate FiO2 09/11/19 06:00 107 18 152/85 (107) 97 Room Air 09/11/19 04:00 98.6 98.6 09/10/19 14:00 3.0 Labs: Laboratory Tests Test 09/10/19 13:32 09/10/19 14:55 09/10/19 15:00 09/10/19 16:11 Glucose (Fingerstick) 553 mg/dL 555 mg/dL 448 mg/dL Urine Collection Type Unknown Urine Color Yellow Urine Clarity Clear Urine pH 5.5 Urine Specific [place] >=1.030 Urine Protein 100 mg/dL Urine Glucose (UA) >=1000 mg/dL Urine Ketones (Stick) 15 mg/dL Urine Blood Trace Urine Nitrite Negative Urine Bilirubin Negative Urine Urobilinogen Dipstick 0.2 mg/dL Urine Leukocyte Esterase Negative Urine RBC Rare /HPF Urine WBC 1-4 /HPF Urine Squamous Epithelial Cells Mod /LPF Urine Bacteria 0 /HPF Urine Yeast Present /HPF Test 09/10/19 17:10 09/10/19 19:05 09/10/19 20:10 09/10/19 20:45 Sodium Level 135 mmol/L 137 mmol/L Potassium Level 2.6 mmol/L 3.6 mmol/L Chloride Level 92 mmol/L 95 mmol/L Carbon Dioxide Level 32 mmol/L 33 mmol/L Anion Gap 11 9 Blood Urea Nitrogen 40 mg/dL 42 mg/dL Creatinine 2.0 mg/dL 1.9 mg/dL Estimated GFR (Cockcroft-Gault) 35.5 37.7 Glucose Level 369 mg/dL 167 mg/dL Calcium Level 8.9 mg/dL 8.9 mg/dL Phosphorus Level 2.3 mg/dL 2.7 mg/dL Magnesium Level 2.5 mg/dL Albumin 2.5 g/dL 2.5 g/dL Glucose (Fingerstick) 181 mg/dL 168 mg/dL Test 09/10/19 21:23 6/1/20 22:31 09/10/19 23:26 09/11/19 00:31 Glucose (Fingerstick) 143 mg/dL 159 mg/dL 156 mg/dL 198 mg/dL Test 09/11/19 01:38 09/11/19 02:39 09/11/19 03:37 09/11/19 04:14 Glucose (Fingerstick) 121 mg/dL 79 mg/dL 159 mg/dL White Blood Count 12.6 x10^3/uL Red Blood Count 5.08 x10^6/uL Hemoglobin 11.4 g/dL Hematocrit 35.3 % Mean Corpuscular Volume 70 fL Mean Corpuscular Hemoglobin 22 pg Mean Corpuscular Hemoglobin Concent 32 g/dL Red Cell Distribution Width 20.3 % Platelet Count 387 x10^3/uL Neutrophils (%) (Auto) 76 % Lymphocytes (%) (Auto) 14 % Monocytes (%) (Auto) 10 % Eosinophils (%) (Auto) 0 % Basophils (%) (Auto) 0 % Neutrophils # (Auto) 9.6 x10^3/uL Lymphocytes # (Auto) 1.7 x10^3/uL Monocytes # (Auto) 1.2 x10^3/uL Eosinophils # (Auto) 0.0 x10^3/uL Basophils # (Auto) 0.0 x10^3/uL Sodium Level 139 mmol/L Potassium Level 3.1 mmol/L Chloride Level 97 mmol/L Carbon Dioxide Level 27 mmol/L Anion Gap 15 Blood Urea Nitrogen 42 mg/dL Creatinine 2.1 mg/dL Estimated GFR (Cockcroft-Gault) 33.6 BUN/Creatinine Ratio 20 Glucose Level 126 mg/dL Calcium Level 8.9 mg/dL Total Bilirubin 0.7 mg/dL Aspartate Amino Transf (AST/SGOT) 30 U/L Alanine Aminotransferase (ALT/SGPT) 27 U/L Alkaline Phosphatase 192 U/L Total Protein 7.1 g/dL Albumin 2.5 g/dL Albumin/Globulin Ratio 0.5 Triglycerides Level 143 mg/dL Test 09/11/19 06:02 09/11/19 07:07 09/11/19 08:09 09/11/19 09:11 Glucose (Fingerstick) 116 mg/dL 128 mg/dL 152 mg/dL 155 mg/dL Test 09/11/19 10:09 Glucose (Fingerstick) 151 mg/dL PE: GEN: NAD LUNGS: clear anteriorly HEART: tachycardic ABD: soft, non-tender NEURO/PSYCH: A & O 3 A/P: N/v DM, ACD, JAQUAN, hypokalemia Pancreatitis, cholelithiasis Chronic pain -- Family relates h/o pain. Plans for clears as above. 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 Justicifation of Admission Dx: Justifications for Admission: Justification of Admission Dx: Yes Comminuty Aquired Pneumonia: Hemodynamic Instability Acute Renal Failure: RF Can't Be Managed Outpt Sepsis: Dehydration ADAN PEREZ Sep 11, 2019 10:28
--- NOTE | 2019-09-11 10:42 | PDOC ---
[facility] PROGRESS NOTE Chief Complaint Chief Complaint 1 Peripancreatic inflammatory changes compatible with acute pancreatitis. much of the gallbladder lumen is filled with gallstones and though no stone is definitively seen within the common bile duct, gallstone pancreatitis remains a consideration. 2. Ill-defined infiltrates involving the visualized left lower lung more so than the right. Sequela of aspiration or an atypical pneumonia may have this a ppearance. 3. mineralized nodule off the medial pole of the left kidney measuring around 1cm //calcified cyst would be the most likely etiology 4. hyperglycemia, uncontrolled nonketotic // diabetes 5. morbid obesity 6. intractable nausea, vomiting 7. JAQUAN 8. Pseudohyponatremia History of Present Illness History of Present Illness 09/11/2019 Patient seen and examined His mother is here helping (MARCUS Johnson) Discussed with RN Chart reviewed Called Dr. Isidro We have all agreed to put the patient on a clear liquid diet so he can take his home meds especially his psych meds Glucose is doing better at 120 Lipase was only 700 Patient clinically is doing okay but little depressed We are also going to consult infectious disease and orthopedics (he has a chronic knee infection and recent knee surgery) GI nurse practitioner Amelia just arrived to examine the patient as well Vitals/I&O Vitals/I&O: Vital Signs Date Time Temp Pulse Resp B/P (MAP) Pulse Ox O2 Delivery O2 Flow Rate FiO2 09/11/19 06:00 107 18 152/85 (107) 97 Room Air 09/11/19 04:00 98.6 98.6 09/10/19 14:00 3.0 I & O 09/10/19 09/10/19 09/11/19 15:00 23:00 07:00 Intake Total 1000 ml 170 ml 1339.4 ml Output Total 2510 ml Balance 1000 ml -2340 ml 1339.4 ml Physical Exam General: Alert, Oriented X3, Cooperative, Other (Seems a little sad but this is often his baseline) Heart: Regular rate, Normal S1 Lungs: Clear Abdomen: No hepatosplenomegaly, Other (ruq tender) Extremities: No cyanosis Skin: No rashes Labs Labs: Laboratory Tests Test 09/10/19 13:32 09/10/19 14:55 09/10/19 15:00 09/10/19 16:11 Glucose (Fingerstick) 553 mg/dL (70-99) 555 mg/dL (70-99) 448 mg/dL (70-99) Urine Collection Type Unknown Urine Color Yellow Urine Clarity Clear Urine pH 5.5 (<5.0-8.0) Urine Specific [place] >=1.030 (1.000-1.030) Urine Protein 100 mg/dL (NEG-TRACE) Urine Glucose (UA) >=1000 mg/dL (NEG) Urine Ketones (Stick) 15 mg/dL (NEG) Urine Blood Trace (NEG) Urine Nitrite Negative (NEG) Urine Bilirubin Negative (NEG) Urine Urobilinogen Dipstick 0.2 mg/dL (0.2 mg/dL) Urine Leukocyte Esterase Negative (NEG) Urine RBC Rare /HPF (0-2) Urine WBC 1-4 /HPF (0-4) Urine Squamous Epithelial Cells Mod /LPF Urine Bacteria 0 /HPF (0-FEW) Urine Yeast Present /HPF Test 09/10/19 17:10 09/10/19 19:05 09/10/19 20:10 09/10/19 20:45 Sodium Level 135 mmol/L (136-145) 137 mmol/L (136-145) Potassium Level 2.6 mmol/L (3.5-5.1) 3.6 mmol/L (3.5-5.1) Chloride Level 92 mmol/L (98-107) 95 mmol/L (98-107) Carbon Dioxide Level 32 mmol/L (21-32) 33 mmol/L (21-32) Anion Gap 11 (6-14) 9 (6-14) Blood Urea Nitrogen 40 mg/dL (8-26) 42 mg/dL (8-26) Creatinine 2.0 mg/dL (0.7-1.3) 1.9 mg/dL (0.7-1.3) Estimated GFR (Cockcroft-Gault) 35.5 37.7 Glucose Level 369 mg/dL (70-99) 167 mg/dL (70-99) Calcium Level 8.9 mg/dL (8.5-10.1) 8.9 mg/dL (8.5-10.1) Phosphorus Level 2.3 mg/dL (2.6-4.7) 2.7 mg/dL (2.6-4.7) Magnesium Level 2.5 mg/dL (1.8-2.4) Albumin 2.5 g/dL (3.4-5.0) 2.5 g/dL (3.4-5.0) Glucose (Fingerstick) 181 mg/dL (70-99) 168 mg/dL (70-99) Test 09/10/19 21:23 09/10/19 22:31 09/10/19 23:26 09/11/19 00:31 Glucose (Fingerstick) 143 mg/dL (70-99) 159 mg/dL (70-99) 156 mg/dL (70-99) 198 mg/dL (70-99) Test 09/11/19 01:38 09/11/19 02:39 09/11/19 03:37 09/11/19 04:14 Glucose (Fingerstick) 121 mg/dL (70-99) 79 mg/dL (70-99) 159 mg/dL (70-99) White Blood Count 12.6 x10^3/uL (4.0-11.0) Red Blood Count 5.08 x10^6/uL (4.30-5.70) Hemoglobin 11.4 g/dL (13.0-17.5) Hematocrit 35.3 % (39.0-53.0) Mean Corpuscular Volume 70 fL (79-100) Mean Corpuscular Hemoglobin 22 pg (25-35) Mean Corpuscular Hemoglobin Concent 32 g/dL (31-37) Red Cell Distribution Width 20.3 % (11.5-14.5) Platelet Count 387 x10^3/uL (140-400) Neutrophils (%) (Auto) 76 % (31-73) Lymphocytes (%) (Auto) 14 % (24-48) Monocytes (%) (Auto) 10 % (0-9) Eosinophils (%) (Auto) 0 % (0-3) Basophils (%) (Auto) 0 % (0-3) Neutrophils # (Auto) 9.6 x10^3/uL (1.8-7.7) Lymphocytes # (Auto) 1.7 x10^3/uL (1.0-4.8) Monocytes # (Auto) 1.2 x10^3/uL (0.0-1.1) Eosinophils # (Auto) 0.0 x10^3/uL (0.0-0.7) Basophils # (Auto) 0.0 x10^3/uL (0.0-0.2) Sodium Level 139 mmol/L (136-145) Potassium Level 3.1 mmol/L (3.5-5.1) Chloride Level 97 mmol/L (98-107) Carbon Dioxide Level 27 mmol/L (21-32) Anion Gap 15 (6-14) Blood Urea Nitrogen 42 mg/dL (8-26) Creatinine 2.1 mg/dL (0.7-1.3) Estimated GFR (Cockcroft-Gault) 33.6 BUN/Creatinine Ratio 20 (6-20) Glucose Level 126 mg/dL (70-99) Calcium Level 8.9 mg/dL (8.5-10.1) Total Bilirubin 0.7 mg/dL (0.2-1.0) Aspartate Amino Transf (AST/SGOT) 30 U/L (15-37) Alanine Aminotransferase (ALT/SGPT) 27 U/L (16-63) Alkaline Phosphatase 192 U/L (46-116) Total Protein 7.1 g/dL (6.4-8.2) Albumin 2.5 g/dL (3.4-5.0) Albumin/Globulin Ratio 0.5 (1.0-1.7) Triglycerides Level 143 mg/dL (0-150) Test 09/11/19 06:02 09/11/19 07:07 09/11/19 08:09 09/11/19 09:11 Glucose (Fingerstick) 116 mg/dL (70-99) 128 mg/dL (70-99) 152 mg/dL (70-99) 155 mg/dL (70-99) Test 09/11/19 10:09 Glucose (Fingerstick) 151 mg/dL (70-99) Review of Systems Review of Systems: Complains of hunger Assessment and Plan Assessmemt and Plan Problems Medical Problems: (1) Acute kidney injury Status: Acute (2) Dehydration Status: Acut Pancreatitis Hyperglycemia Gallstones Obese Intractable nausea vomiting Acute kidney injury Abnormal chest x-ray ( Ill-defined infiltrates involving the visualized left lower lung more so than the right. Sequela of aspiration or an atypical pneumonia may have this appearance.) Diabetes Pseudohyponatremia History of bipolar History of recent knee surgery Plan We have consulted GI general surgery infectious disease pulmonary nephrology and orthopedics Clear liquid diet IV Zosyn Trend his lipase levels Insulin drip protocol ICU BED PRN Zofran IV fluids Home meds DVT prophylaxis Full code Discussed at length with his mother and nurses and other physicians Total time 36 Comment Review of Relevant I have reviewed the following items blaze (where applicable) has been applied. Medications: Current Medications Medications (Trade) Dose Ordered Sig/Edilma Route PRN Reason Start Time Stop Time Status Last Admin Dose Admin Sodium Chloride 1,000 ml @ 0 mls/hr 1X ONCE IV 09/10/19 11:00 09/10/19 11:01 DC 09/10/19 11:06 Ondansetron HCl (Zofran) 4 mg 1X ONCE IVP 09/10/19 11:00 09/10/19 11:01 DC 09/10/19 11:06 Sodium Chloride (Normal Saline Flush) 3 ml QSHIFT PRN IV AFTER MEDS AND BLOOD DRAWS 09/10/19 13:15 09/10/19 13:54 Sodium Chloride 1,000 ml @ 100 mls/hr Q10H IV 09/10/19 13:05 09/11/19 03:22 Ondansetron HCl (Zofran) 4 mg PRN Q4HRS PRN IV NAUSEA/VOMITING 09/10/19 13:15 09/11/19 10:16 Enoxaparin Sodium (Lovenox 40mg Syringe) 40 mg Q24H SQ 09/10/19 15:00 09/10/19 15:50 Piperacillin Sod/ Tazobactam Sod 3.375 gm/Sodium Chloride 50 ml @ 100 mls/hr Q6HRS IV 09/10/19 16:00 09/11/19 06:04 Insulin Human Regular 100 unit/ Sodium Chloride 101 ml @ 0 mls/hr CONT PRN IV SEE I/O RECORD 09/10/19 13:15 09/10/19 21:21 Pantoprazole Sodium (PROTONIX VIAL for IV PUSH) 40 mg DAILYAC IVP 09/11/19 07:30 09/11/19 08:12 Prochlorperazine Edisylate (Compazine) 10 mg PRN Q6HRS PRN IV NAUSEA/VOMITING- 2ND CHOICE 09/10/19 15:45 09/10/19 15:53 Hydralazine HCl (Apresoline Inj) 10 mg PRN Q4HRS PRN IVP ELEVATED BP, SEE COMMENTS 09/10/19 15:45 09/11/19 03:23 Potassium Chloride/Water 100 ml @ 100 mls/hr Q1H IV 09/10/19 18:00 09/10/19 20:59 DC 09/10/19 21:20 Potassium Phosphate 13.6 mmol/Sodium Chloride 254.5333 ml @ 62.5 mls/hr 1X ONCE IV 09/10/19 18:00 09/10/19 22:04 DC 09/10/19 18:24 Potassium Chloride/Water 100 ml @ 100 mls/hr Q1H IV 09/11/19 07:00 09/11/19 08:59 DC 09/11/19 10:05 Lidocaine (Lidoderm) 1 patch DAILY TP 09/11/19 10:00 09/11/19 10:04 Oxycodone/ Acetaminophen (Percocet 7.5/ 325) 1 tab PRN Q6HRS PRN PO MODERATE TO SEVERE PAIN 09/11/19 09:45 09/11/19 10:04 Clonazepam (KlonoPIN) 1 mg BID PO 09/11/19 10:00 09/11/19 10:04 [place] Pena Carbonate (Lithobid) 300 mg BID PO 09/11/19 10:00 09/11/19 10:04 Justicifation of Admission Dx: Justifications for Admission: Justification of Admission Dx: Yes Comminuty Aquired Pneumonia: Hemodynamic Instability Acute Renal Failure: RF Can't Be Managed Outpt Sepsis: Dehydration VISHAL KATZ III DO Sep 11, 2019 10:42
--- NOTE | 2019-09-11 10:58 | NUR ---
SS following for discharge planning. SS reviewed pt chart and discussed with pt RN. Pt is from home with family. Family provides care at home. Pt is currently on room air. Per RN, pt admitted with nausea, vomiting, and high blood sugar. Pt on antibiotics. Currently awaiting consults. SS will continue to follow for discharge planning.
[2019-09-11] MEDS ORDERED: CLIN300C8 PO (11:36)
[2019-09-11] MEDS ORDERED: DOXY100C2 PO (11:36)
--- NOTE | 2019-09-11 11:41 | PDOC ---
Infectious Disease Note Vital Sign Vital Signs Vital Signs Date Time Temp Pulse Resp B/P (MAP) Pulse Ox O2 Delivery O2 Flow Rate FiO2 09/11/19 08:00 Room Air 09/11/19 06:00 107 18 152/85 (107) 97 09/11/19 04:00 98.6 98.6 09/10/19 14:00 3.0 Labs Lab Laboratory Tests Test 09/10/19 13:32 09/10/19 14:55 09/10/19 15:00 09/10/19 16:11 Glucose (Fingerstick) 553 mg/dL (70-99) 555 mg/dL (70-99) 448 mg/dL (70-99) Urine Collection Type Unknown Urine Color Yellow Urine Clarity Clear Urine pH 5.5 (<5.0-8.0) Urine Specific [place] >=1.030 (1.000-1.030) Urine Protein 100 mg/dL (NEG-TRACE) Urine Glucose (UA) >=1000 mg/dL (NEG) Urine Ketones (Stick) 15 mg/dL (NEG) Urine Blood Trace (NEG) Urine Nitrite Negative (NEG) Urine Bilirubin Negative (NEG) Urine Urobilinogen Dipstick 0.2 mg/dL (0.2 mg/dL) Urine Leukocyte Esterase Negative (NEG) Urine RBC Rare /HPF (0-2) Urine WBC 1-4 /HPF (0-4) Urine Squamous Epithelial Cells Mod /LPF Urine Bacteria 0 /HPF (0-FEW) Urine Yeast Present /HPF Test 09/10/19 17:10 09/10/19 19:05 09/10/19 20:10 09/10/19 20:45 Sodium Level 135 mmol/L (136-145) 137 mmol/L (136-145) Potassium Level 2.6 mmol/L (3.5-5.1) 3.6 mmol/L (3.5-5.1) Chloride Level 92 mmol/L (98-107) 95 mmol/L (98-107) Carbon Dioxide Level 32 mmol/L (21-32) 33 mmol/L (21-32) Anion Gap 11 (6-14) 9 (6-14) Blood Urea Nitrogen 40 mg/dL (8-26) 42 mg/dL (8-26) Creatinine 2.0 mg/dL (0.7-1.3) 1.9 mg/dL (0.7-1.3) Estimated GFR (Cockcroft-Gault) 35.5 37.7 Glucose Level 369 mg/dL (70-99) 167 mg/dL (70-99) Calcium Level 8.9 mg/dL (8.5-10.1) 8.9 mg/dL (8.5-10.1) Phosphorus Level 2.3 mg/dL (2.6-4.7) 2.7 mg/dL (2.6-4.7) Magnesium Level 2.5 mg/dL (1.8-2.4) Albumin 2.5 g/dL (3.4-5.0) 2.5 g/dL (3.4-5.0) Glucose (Fingerstick) 181 mg/dL (70-99) 168 mg/dL (70-99) Test 09/10/19 21:23 09/10/19 22:31 09/10/19 23:26 09/11/19 00:31 Glucose (Fingerstick) 143 mg/dL (70-99) 159 mg/dL (70-99) 156 mg/dL (70-99) 198 mg/dL (70-99) Test 09/11/19 01:38 09/11/19 02:39 09/11/19 03:37 09/11/19 04:14 Glucose (Fingerstick) 121 mg/dL (70-99) 79 mg/dL (70-99) 159 mg/dL (70-99) White Blood Count 12.6 x10^3/uL (4.0-11.0) Red Blood Count 5.08 x10^6/uL (4.30-5.70) Hemoglobin 11.4 g/dL (13.0-17.5) Hematocrit 35.3 % (39.0-53.0) Mean Corpuscular Volume 70 fL (79-100) Mean Corpuscular Hemoglobin 22 pg (25-35) Mean Corpuscular Hemoglobin Concent 32 g/dL (31-37) Red Cell Distribution Width 20.3 % (11.5-14.5) Platelet Count 387 x10^3/uL (140-400) Neutrophils (%) (Auto) 76 % (31-73) Lymphocytes (%) (Auto) 14 % (24-48) Monocytes (%) (Auto) 10 % (0-9) Eosinophils (%) (Auto) 0 % (0-3) Basophils (%) (Auto) 0 % (0-3) Neutrophils # (Auto) 9.6 x10^3/uL (1.8-7.7) Lymphocytes # (Auto) 1.7 x10^3/uL (1.0-4.8) Monocytes # (Auto) 1.2 x10^3/uL (0.0-1.1) Eosinophils # (Auto) 0.0 x10^3/uL (0.0-0.7) Basophils # (Auto) 0.0 x10^3/uL (0.0-0.2) Sodium Level 139 mmol/L (136-145) Potassium Level 3.1 mmol/L (3.5-5.1) Chloride Level 97 mmol/L (98-107) Carbon Dioxide Level 27 mmol/L (21-32) Anion Gap 15 (6-14) Blood Urea Nitrogen 42 mg/dL (8-26) Creatinine 2.1 mg/dL (0.7-1.3) Estimated GFR (Cockcroft-Gault) 33.6 BUN/Creatinine Ratio 20 (6-20) Glucose Level 126 mg/dL (70-99) Calcium Level 8.9 mg/dL (8.5-10.1) Total Bilirubin 0.7 mg/dL (0.2-1.0) Aspartate Amino Transf (AST/SGOT) 30 U/L (15-37) Alanine Aminotransferase (ALT/SGPT) 27 U/L (16-63) Alkaline Phosphatase 192 U/L (46-116) Total Protein 7.1 g/dL (6.4-8.2) Albumin 2.5 g/dL (3.4-5.0) Albumin/Globulin Ratio 0.5 (1.0-1.7) Triglycerides Level 143 mg/dL (0-150) Test 09/11/19 06:02 09/11/19 07:07 09/11/19 08:09 09/11/19 09:11 Glucose (Fingerstick) 116 mg/dL (70-99) 128 mg/dL (70-99) 152 mg/dL (70-99) 155 mg/dL (70-99) Test 09/11/19 10:09 09/11/19 11:11 Glucose (Fingerstick) 151 mg/dL (70-99) 163 mg/dL (70-99) Objective Assessment pt seen, consult dictated Plan Plan of Care / RUTH DOUGLASS MD Sep 11, 2019 11:41
--- NOTE | 2019-09-11 12:02 | CONS ---
DATE OF CONSULTATION: PULMONARY CONSULTATION ATTENDING PHYSICIAN: Dr. Walter. REASON FOR CONSULTATION: Abnormal CT chest. HISTORY OF PRESENT ILLNESS: The patient is a 49-year-old male who is obese with a BMI of 32.5. He was brought into the hospital with nausea, vomiting and some fatigue. Apparently, vomiting has been reported for the last 2 weeks. The patient was found to have acute pancreatitis. He underwent imaging study and I have reviewed the patient's CT abdomen, which showed lower sections of the lungs. There were some mild infiltrates, partly ground glass, involving the left lower lobe. His CT abdomen also showed peripancreatic inflammatory changes consistent with acute pancreatitis. The patient states that he has a cough with some brown sputum production. At times, he is unable to a separate emesis from coughing. The mother was on the phone available and she said that he had some sputum blue brown as well. The patient has some mild exertional dyspnea in the last few weeks. He is a nonsmoker. No chest pains. No headaches. No focal weakness. No dysuria. I have been asked to see him for further evaluation. He is currently on room air. GI has been following him. He is currently on Zosyn. PAST MEDICAL HISTORY: Significant for history of bipolar disorder, depression, type 2 diabetes, hypertension, anxiety, chronic back pain. PAST SURGICAL HISTORY: Cardiac catheterization, skin cancer removal, left knee scope. SOCIAL HISTORY: Denies significant tobacco history. ALLERGIES: DAPTOMYCIN, KETAMINE. MEDICATIONS: Reviewed as listed in the MRAD including Zosyn. REVIEW OF SYSTEMS: Ten-point system obtained. Pertinent positives discussed in my history of present illness, otherwise noncontributory. All systems that were negative were reviewed as well. FAMILY HISTORY: Noncontributory to lungs. PHYSICAL EXAMINATION: VITAL SIGNS: Reviewed. Blood pressure 152/85, pulse ox 97% on room air. He is afebrile. NECK: Supple. LUNGS: Clear. CARDIOVASCULAR: With a regular rate. ABDOMEN: Soft, obese. EXTREMITIES: With no pitting edema. LABORATORY DATA: Reviewed. White cell count of 12.6, hemoglobin 11.4, platelets are 387. His BUN and creatinine is 42 and 2.1. His lipase is 746. His glucose on admission was 711. IMPRESSION: 1. Abnormal CT of the abdomen with lower sections of the lungs showing some inflammatory changes involving the left lower lobe. This could be a combination of atelectasis from the abdominal process versus possibility of pneumonitis. The patient has been complaining of some cough with some brownish sputum. 2. No significant tobacco history. 3. Acute pancreatitis, being followed by GI. He is a nonalcoholic. Likely etiology appears to be gallstone pancreatitis. 4. Acute kidney injury, probably on chronic kidney disease. 5. Hyperglycemia, present on admission, improving. RECOMMENDATIONS: 1. Pulmonary status appears to be overall stable. 2. Continue with present Zosyn. 3. Follow GI recommendations. 4. DVT prophylaxis with Lovenox. 5. Discussed with the patient's mother and RN and will be following him. HAMMAD MORILLO MD DR: KYUNG/ritesh JOB#: [id number] / [id number]
--- NOTE | 2019-09-11 12:38 | CONS ---
DATE OF CONSULTATION: 09/11/2019 REQUESTING PHYSICIAN: Dr. Melton. REASON FOR CONSULTATION: Antibiotic management. HISTORY OF PRESENT ILLNESS: This is a 49-year-old gentleman who is very well known to us. The patient had multiple surgeries done on to the left knee and infection and just recently, the patient had finished 6 weeks of IV and he is on oral clindamycin chronic suppressive therapy. The patient came in with about 1 week or so history of nausea, vomiting, not much of abdominal pain. He said just nausea, vomiting and was found to have pancreatitis. The patient does have a gallbladder and gallstones. The patient does not drink alcohol. The patient has been started with conservative therapy. The patient is n.p.o. and he was taking doxycycline that has been changed to Zosyn right now. The patient is alert, awake and appropriate. Denies anymore, nausea, vomiting, or diarrhea. Denies any chest pain, shortness of breath, or abdominal pain. Knee has been feeling good he says. There is a small dehisced wound, which is healing from secondary intention. PAST MEDICAL HISTORY: Positive for diabetes mellitus, hypertension, hypothyroidism, osteoarthritis, bipolar disorder, obstructive sleep apnea, has had tonsillectomy, adenoidectomy. On 08/22/2018, the patient had revision of the tibial component of the left total knee arthroplasty for loose tibial component. Then, on 09/19/2018, he had irrigation and debridement and polyethylene exchange done. Then on 03/13/2019, he had removal of the total knee arthroplasty done with debridement and antibiotic spacer. On 06/05/2019, the patient had removal of the antibiotic spacer, operative reduction and internal fixation of the lateral epicondyle fracture, and insertion of the stem tibial and femoral component with reimplantation of the resurfacing patellar component was done and now again I and D done on 07/12/2019 with a repair of the facial defect and poly exchange, and again he had another surgery done on 07/28/2019. SOCIAL HISTORY: Negative for smoking, alcohol, or illicit drug use. ALLERGIES: No known drug allergies, although he cannot tolerate daptomycin. REVIEW OF SYSTEMS: As per HPI, all other systems reviewed are negative. PHYSICAL EXAMINATION: GENERAL: Alert, oriented gentleman, not in distress. VITAL SIGNS: Stable, afebrile. HEENT: NAD. NECK: Supple, no JVP, no lymphadenopathy. LUNGS: Clear. HEART: S1, S2 regular. ABDOMEN: Benign. EXTREMITIES: No edema, cyanosis. SKIN: Unremarkable except left knee, there is a small wound on to the knee which appears clean, healthy, red granulation tissue and no drainage. NEUROLOGIC: The patient is alert, awake and appropriate. No focal neurologic deficit. LABORATORY DATA: White count is 12.6, hemoglobin 11.4, platelets are normal. His BUN and creatinine is 42 and 2.1. IMPRESSION: 1. Nausea, vomiting, and pancreatitis, unclear etiology. May have been gallstone or CBD stone causing blockage. I have asked for triglyceride levels. The patient does not drink alcohol. 2. Left total knee arthroplasty infection with the last culture only positive was from Dr. Avila's office, which was sent into some outside lab and has coagulase negative Staphylococcus, which was oxacillin resistant and tetracycline resistant. Hence, the patient is on clindamycin. Unfortunately, not a good drug but not much options. 3. Chest x-ray is normal, but the CT showing possible infiltrate, may have aspirated. 4. Diabetes. 5. Hypertension. 6. Bipolar disorder. 7. Renal insufficiency. RECOMMENDATIONS: Zosyn can be switched over to clindamycin, supportive care, hydration. We will continue to follow. Thank you very much, Dr. Melton, for giving me the opportunity to participate in this patient's care. RUTH DOUGLASS MD DR: LEAH/ritesh JOB#: [id number] / [id number]
[2019-09-11 14:24] LABS: CREATININE,RANDOM URINE 91.4 mg/dL (Not Establ.)
--- NOTE | 2019-09-11 15:52 | PDOC2 ---
CONSULT Date of Consult Date of Consult DATE: 09/11/19 TIME: 15:49 History of Present Illness Reason for Visit: The patient is a 49 year old male who was admitted with nausea and vomiting for the last couple of weeks. He reports developing some upper abdominal pain as well, but currently he is pain free. His ER evaluation is consistent with pancreatitis and marked hyperglycemia. Past Medical History Cardiovascular: HTN Heme/Onc: No pertinent hx Hepatobiliary: No pertinent hx Psych: No pertinent hx, Bipolar, Other Musculoskeletal: low back pain Rheumatologic: No pertinent hx Endocrine: Hypothyroidism Past Surgical History Past Surgical History: Total knee replacement Family History Family History: No Significant, High Cholestrol, Hypertension Social History <1 pack per day ALCOHOL: occassional Drugs: None Current Problem List Problem List Problems Medical Problems: (1) Acute kidney injury Status: Acute (2) Dehydration Status: Acute Current Medications Current Medications Current Medications Sodium Chloride 1,000 ml @ 0 mls/hr 1X ONCE IV Last administered on 09/10/19at 11:06; Start 09/10/19 at 11:00; Stop 09/10/19 at 11:01; Status DC Ondansetron HCl (Zofran) 4 mg 1X ONCE IVP Last administered on 09/10/19at 11:06; Start 09/10/19 at 11:00; Stop 09/10/19 at 11:01; Status DC Sodium Chloride (Normal Saline Flush) 3 ml QSHIFT PRN IV AFTER MEDS AND BLOOD DRAWS Last administered on 09/10/19at 13:54; Start 09/10/19 at 13:15 Sodium Chloride 1,000 ml @ 100 mls/hr Q10H IV Last administered on 09/11/19at 03:22; Start 09/10/19 at 13:05 Ondansetron HCl (Zofran) 4 mg PRN Q4HRS PRN IV NAUSEA/VOMITING Last administered on 09/11/19at 10:16; Start 09/10/19 at 13:15 Acetaminophen (Tylenol Supp) 650 mg PRN Q4HRS PRN MN TEMP OVER 100.4F OR MILD PAIN; Start 09/10/19 at 13:15 Clonidine HCl (Catapres) 0.1 mg PRN Q6HRS PRN PO SBP>160 OR DBP>90; Start 09/10/19 at 13:15 Docusate Sodium (Colace) 100 mg PRN BID PRN PO HARD STOOLS; Start 09/10/19 at 13:15 Albuterol/ Ipratropium (Duoneb) 3 ml Q4HRS NEB ; Start 09/10/19 at 16:00; Stop 09/10/19 at 19:57; Status DC Enoxaparin Sodium (Lovenox 40mg Syringe) 40 mg Q24H SQ Last administered on 09/10/19at 15:50; Start 09/10/19 at 15:00 Piperacillin Sod/ Tazobactam Sod 3.375 gm/Sodium Chloride 50 ml @ 100 mls/hr Q6HRS IV Last administered on 09/11/19at 12:12; Start 09/10/19 at 16:00 Insulin Human Regular 100 unit/ Sodium Chloride 101 ml @ 0 mls/hr CONT PRN IV SEE I/O RECORD Last administered on 09/10/19at 21:21; Start 09/10/19 at 13:15 Dextrose (Dextrose 50%-Water Syringe) 12.5 gm PRN Q15MIN PRN IV LOW BLOOD SUGAR; Start 09/10/19 at 13:15; Stop 09/10/19 at 21:06; Status DC Dextrose (Iv Dextrose 5%) 250 ml PRN Q15MIN PRN IV LOW BLOOD SUGAR; Start 09/10/19 at 13:15 Insulin Human Regular 0 ml @ As Directed STK-MED ONCE IV ; Start 09/10/19 at 13:47; Stop 09/10/19 at 13:47; Status DC Pantoprazole Sodium (PROTONIX VIAL for IV PUSH) 40 mg DAILYAC IVP Last administered on 09/11/19at 08:12; Start 09/11/19 at 07:30 Prochlorperazine Edisylate (Compazine) 10 mg PRN Q6HRS PRN IV NAUSEA/VOMITING- 2ND CHOICE Last administered on 09/10/19at 15:53; Start 09/10/19 at 15:45 Hydralazine HCl (Apresoline Inj) 10 mg PRN Q4HRS PRN IVP ELEVATED BP, SEE COMMENTS Last administered on 09/11/19at 03:23; Start 09/10/19 at 15:45 Potassium Chloride/Water 100 ml @ 100 mls/hr Q1H IV Last administered on 09/10/19at 21:20; Start 09/10/19 at 18:00; Stop 09/10/19 at 20:59; Status DC Potassium Phosphate 13.6 mmol/Sodium Chloride 254.5333 ml @ 62.5 mls/hr 1X ONCE IV Last administered on 09/10/19at 18:24; Start 09/10/19 at 18:00; Stop 09/10/19 at 22:04; Status DC Albuterol Sulfate (Ventolin Neb Soln) 2.5 mg PRN Q4HRS PRN NEB WHEEZING; Start 09/10/19 at 20:00 Insulin Human Lispro (HumaLOG) 0-7 UNITS TIDWMEALS SQ ; Start 09/11/19 at 08:00 Dextrose (Dextrose 50%-Water Syringe) 12.5 gm PRN Q15MIN PRN IV SEE COMMENTS; Start 09/10/19 at 21:15 Potassium Chloride/Water 100 ml @ 100 mls/hr Q1H IV Last administered on 09/11/19at 10:05; Start 09/11/19 at 07:00; Stop 09/11/19 at 08:59; Status DC Lidocaine (Lidoderm) 1 patch DAILY TP Last administered on 09/11/19at 10:04; Start 09/11/19 at 10:00 Lisinopril (Prinivil) 5 mg PRN DAILY PRN PO hypertension Last administered on 09/11/19at 12:14; Start 09/11/19 at 09:45 Oxycodone/ Acetaminophen (Percocet 7.5/ 325) 1 tab PRN Q6HRS PRN PO MODERATE TO SEVERE PAIN Last administered on 09/11/19at 10:04; Start 09/11/19 at 09:45 Clonazepam (KlonoPIN) 1 mg BID PO Last administered on 09/11/19at 10:04; Start 09/11/19 at 10:00 Doxepin HCl (SINEquan) 300 mg QHS PO ; Start 09/11/19 at 21:00; Status Cancel [place]ll Carbonate (Lithobid) 300 mg BID PO Last administered on 09/11/19at 10:04; Start 09/11/19 at 10:00 Metformin HCl (Glucophage) 1,000 mg BIDWMEALS PO ; Start 09/11/19 at 10:00; Stop 09/11/19 at 12:45; Status DC Tizanidine HCl (Zanaflex) 1 mg PRN TID PRN PO MUSCLE SPASTICITY; Start 09/11/19 at 09:45 Linagliptin (Tradjenta) 5 mg DAILY PO ; Start 09/11/19 at 10:00 Miscellaneous (Lidoderm Patch Removal) 1 ea QHS MC ; Start 09/11/19 at 21:00 Non-Formulary Medication 2 ea QHS PO ; Start 09/11/19 at 21:00 Active Scripts Active Reported Doxycycline Hyclate 100 Mg Capsule 100 Mg PO BID Clindamycin Hcl 300 Mg Capsule 600 Mg PO BID Lidocaine PATCH (Lidocaine) 1 Each Adh..patch 1 Each TP DAILY REMOVE AFTER 12 HOURS Lisinopril 5 Mg Tablet 1 Tab PO DAILY PRN Percocet 7.5-325 Mg Tablet (Oxycodone/Acetaminophen) 1 Each Tablet 1 Tab PO PRN Q6HRS PRN Clonazepam 1 Mg Tablet 1 Mg PO BID Luttrell Carbonate 300 Mg Tablet 1 Tab PO BID Zanaflex (Tizanidine Hcl) 4 Mg Capsule 1 Cap PO TID PRN Janumet 50-1,000 Mg Tablet (Sitagliptin Phos/Metformin Hcl) 1 Each Tablet 1 Tab PO BID Doxepin Hcl 50 Mg Capsule 300 Mg PO HS Allergies Allergies: Coded Allergies: daptomycin (Verified Allergy, Intermediate, chills, nausea , 08/09/19) I S O L A T I O N *CONTACT* (Verified Allergy, Unknown, Unknown, 08/14/19) mrsa No Known Medication Allergies (Verified Allergy, Unknown, Unknown, 08/14/19) ketamine (Verified Allergy, Unknown, Unknown, 08/14/19) ROS General: No: Chills, Night Sweats, Fatigue, Malaise, Appetite, Other PSYCHOLOGICAL ROS: No: Anxiety, Behavioral Disorder, Concentration difficultie, Decreased libido, Depression, Disorientation, Hallucinations, Hostility, Irritablity, Memory difficulties, Mood Swings, Obsessive thoughts, Physical abuse, Sexual abuse, Sleep disturbances, Suicidal ideation, Other HEENT: No: Heacaches, Visual Changes, Hearing change, Nasal congestion, Nasal discharge, Oral lesions, Sinus pain, Sore Throat, Epistaxis, Sneezing, Snoring, Tinnitus, Vertigo, Vocal changes, Other ALLERGY AND IMMUNOLOGY: No: Hives, Insect Bite Sensitivity, Itchy/Watery Eyes, Nasal Congestion, Post Nasal Drip, Seasonal Allergies, Other Hematological and Lymphatic: No: Bleeding Problems, Blood Clots, Blood Transfusions, Brusing, Night Sweats, Pallor, Swollen Lymph Nodes, Other Respiratory: YES: Cough, Hemoptysis, Orthopnea, Pleuritic Pain, Shortness of breath, SOB with excertion, Sputum Changes, Stridor, Tachypnea, Wheezing, Other Cardiovascular: No Chest Pain, No Palpitations, No Orthopnea, No Paroxysmal Noc. Dyspnea, No Edema, No Lt Headedness, No Other Gastrointestinal: Yes Nausea Genitourinary: No Dysuria, No Frequency, No Incontinence, No Hematuria, No Rete ntion, No Discharge, No Urgency, No Pain, No Flank Pain, No Other, No , No , No , No , No , No , No Musculoskeletal: No Gait Disturbance, No Joint Pain, No Joint Stiffness, No Joint Swelling, No Muscle Pain, No Muscular Weakness, No Pain In:, No Swelling In:, No Other Neurological: No Behavorial Changes, No Bowel/Bladder ControlChng, No Confusion, No Dizziness, No Gait Disturbance, No Headaches, No Impaired Coord/balance, No Memory Loss, No Numbness/Tingling, No Seizures, No Speech Problems, No Tremors, No Visual Changes, No Weakness, No Other Skin: No Dry Skin, No Eczema, No Hair Changes, No Lumps, No Mole Changes, No Mottling, No Nail Changes, No Pruritus, No Rash, No Skin Lesion Changes, No Other, No Acne Physical Exam General: Alert, Oriented X3, Cooperative HEENT: Atraumatic Lungs: Clear to auscultation Abdomen: Soft, No tenderness Extremities: No clubbing, No cyanosis Skin: No rashes Neuro: Normal speech Vitals VITALS Vital Signs Date Time Temp Pulse Resp B/P (MAP) Pulse Ox O2 Delivery O2 Flow Rate FiO2 09/11/19 14:00 104 20 137/95 (109) 97 Room Air 09/11/19 13:00 98.5 98.5 09/10/19 14:00 3.0 Labs Labs Laboratory Tests Test 09/10/19 10:05 09/10/19 13:32 09/10/19 14:55 09/10/19 15:00 White Blood Count 11.2 x10^3/uL (4.0-11.0) Red Blood Count 5.24 x10^6/uL (4.30-5.70) Hemoglobin 11.6 g/dL (13.0-17.5) Hematocrit 36.6 % (39.0-53.0) Mean Corpuscular Volume 70 fL (79-100) Mean Corpuscular Hemoglobin 22 pg (25-35) Mean Corpuscular Hemoglobin Concent 32 g/dL (31-37) Red Cell Distribution Width 19.8 % (11.5-14.5) Platelet Count 323 x10^3/uL (140-400) Neutrophils (%) (Auto) 83 % (31-73) Lymphocytes (%) (Auto) 7 % (24-48) Monocytes (%) (Auto) 9 % (0-9) Eosinophils (%) (Auto) 0 % (0-3) Basophils (%) (Auto) 1 % (0-3) Neutrophils # (Auto) 9.3 x10^3/uL (1.8-7.7) Lymphocytes # (Auto) 0.8 x10^3/uL (1.0-4.8) Monocytes # (Auto) 1.0 x10^3/uL (0.0-1.1) Eosinophils # (Auto) 0.0 x10^3/uL (0.0-0.7) Basophils # (Auto) 0.1 x10^3/uL (0.0-0.2) Platelet Estimate Adequate (ADEQUATE) Anisocytosis Slight Microcytosis Slight Sodium Level 128 mmol/L (136-145) Potassium Level 3.2 mmol/L (3.5-5.1) Chloride Level 84 mmol/L (98-107) Carbon Dioxide Level 28 mmol/L (21-32) Anion Gap 16 (6-14) Blood Urea Nitrogen 44 mg/dL (8-26) Creatinine 2.2 mg/dL (0.7-1.3) Estimated GFR (Cockcroft-Gault) 31.8 BUN/Creatinine Ratio 20 (6-20) Glucose Level 711 mg/dL (70-99) Calcium Level 9.0 mg/dL (8.5-10.1) Total Bilirubin 0.8 mg/dL (0.2-1.0) Aspartate Amino Transf (AST/SGOT) 22 U/L (15-37) Alanine Aminotransferase (ALT/SGPT) 31 U/L (16-63) Alkaline Phosphatase 211 U/L (46-116) Total Protein 7.2 g/dL (6.4-8.2) Albumin 2.6 g/dL (3.4-5.0) Albumin/Globulin Ratio 0.6 (1.0-1.7) Lipase 746 U/L (73-393) Luttrell Level < 0.2 mmol/L (0.6-1.2) Luttrell Last Dose Date Unknown [place]ll Last Dose Time Unknown Glucose (Fingerstick) 553 mg/dL (70-99) 555 mg/dL (70-99) Urine Collection Type Unknown Urine Color Yellow Urine Clarity Clear Urine pH 5.5 (<5.0-8.0) Urine Specific [place] >=1.030 (1.000-1.030) Urine Protein 100 mg/dL (NEG-TRACE) Urine Glucose (UA) >=1000 mg/dL (NEG) Urine Ketones (Stick) 15 mg/dL (NEG) Urine Blood Trace (NEG) Urine Nitrite Negative (NEG) Urine Bilirubin Negative (NEG) Urine Urobilinogen Dipstick 0.2 mg/dL (0.2 mg/dL) Urine Leukocyte Esterase Negative (NEG) Urine RBC Rare /HPF (0-2) Urine WBC 1-4 /HPF (0-4) Urine Squamous Epithelial Cells Mod /LPF Urine Bacteria 0 /HPF (0-FEW) Urine Yeast Present /HPF Test 09/10/19 16:11 09/10/19 17:10 09/10/19 19:05 09/10/19 20:10 Glucose (Fingerstick) 448 mg/dL (70-99) 181 mg/dL (70-99) 168 mg/dL (70-99) Sodium Level 135 mmol/L (136-145) Potassium Level 2.6 mmol/L (3.5-5.1) Chloride Level 92 mmol/L (98-107) Carbon Dioxide Level 32 mmol/L (21-32) Anion Gap 11 (6-14) Blood Urea Nitrogen 40 mg/dL (8-26) Creatinine 2.0 mg/dL (0.7-1.3) Estimated GFR (Cockcroft-Gault) 35.5 Glucose Level 369 mg/dL (70-99) Calcium Level 8.9 mg/dL (8.5-10.1) Phosphorus Level 2.3 mg/dL (2.6-4.7) Magnesium Level 2.5 mg/dL (1.8-2.4) Albumin 2.5 g/dL (3.4-5.0) Test 09/10/19 20:45 09/10/19 21:23 09/10/19 22:31 09/10/19 23:26 Sodium Level 137 mmol/L (136-145) Potassium Level 3.6 mmol/L (3.5-5.1) Chloride Level 95 mmol/L (98-107) Carbon Dioxide Level 33 mmol/L (21-32) Anion Gap 9 (6-14) Blood Urea Nitrogen 42 mg/dL (8-26) Creatinine 1.9 mg/dL (0.7-1.3) Estimated GFR (Cockcroft-Gault) 37.7 Glucose Level 167 mg/dL (70-99) Calcium Level 8.9 mg/dL (8.5-10.1) Phosphorus Level 2.7 mg/dL (2.6-4.7) Albumin 2.5 g/dL (3.4-5.0) Glucose (Fingerstick) 143 mg/dL (70-99) 159 mg/dL (70-99) 156 mg/dL (70-99) Test 09/11/19 00:31 09/11/19 01:38 09/11/19 02:39 09/11/19 03:37 Glucose (Fingerstick) 198 mg/dL (70-99) 121 mg/dL (70-99) 79 mg/dL (70-99) 159 mg/dL (70-99) Test 09/11/19 04:14 09/11/19 06:02 09/11/19 07:07 09/11/19 08:09 White Blood Count 12.6 x10^3/uL (4.0-11.0) Red Blood Count 5.08 x10^6/uL (4.30-5.70) Hemoglobin 11.4 g/dL (13.0-17.5) Hematocrit 35.3 % (39.0-53.0) Mean Corpuscular Volume 70 fL (79-100) Mean Corpuscular Hemoglobin 22 pg (25-35) Mean Corpuscular Hemoglobin Concent 32 g/dL (31-37) Red Cell Distribution Width 20.3 % (11.5-14.5) Platelet Count 387 x10^3/uL (140-400) Neutrophils (%) (Auto) 76 % (31-73) Lymphocytes (%) (Auto) 14 % (24-48) Monocytes (%) (Auto) 10 % (0-9) Eosinophils (%) (Auto) 0 % (0-3) Basophils (%) (Auto) 0 % (0-3) Neutrophils # (Auto) 9.6 x10^3/uL (1.8-7.7) Lymphocytes # (Auto) 1.7 x10^3/uL (1.0-4.8) Monocytes # (Auto) 1.2 x10^3/uL (0.0-1.1) Eosinophils # (Auto) 0.0 x10^3/uL (0.0-0.7) Basophils # (Auto) 0.0 x10^3/uL (0.0-0.2) Sodium Level 139 mmol/L (136-145) Potassium Level 3.1 mmol/L (3.5-5.1) Chloride Level 97 mmol/L (98-107) Carbon Dioxide Level 27 mmol/L (21-32) Anion Gap 15 (6-14) Blood Urea Nitrogen 42 mg/dL (8-26) Creatinine 2.1 mg/dL (0.7-1.3) Estimated GFR (Cockcroft-Gault) 33.6 BUN/Creatinine Ratio 20 (6-20) Glucose Level 126 mg/dL (70-99) Calcium Level 8.9 mg/dL (8.5-10.1) Total Bilirubin 0.7 mg/dL (0.2-1.0) Aspartate Amino Transf (AST/SGOT) 30 U/L (15-37) Alanine Aminotransferase (ALT/SGPT) 27 U/L (16-63) Alkaline Phosphatase 192 U/L (46-116) Total Protein 7.1 g/dL (6.4-8.2) Albumin 2.5 g/dL (3.4-5.0) Albumin/Globulin Ratio 0.5 (1.0-1.7) Triglycerides Level 143 mg/dL (0-150) Glucose (Fingerstick) 116 mg/dL (70-99) 128 mg/dL (70-99) 152 mg/dL (70-99) Test 09/11/19 09:11 09/11/19 10:09 09/11/19 11:11 09/11/19 12:16 Glucose (Fingerstick) 155 mg/dL (70-99) 151 mg/dL (70-99) 163 mg/dL (70-99) 152 mg/dL (70-99) Test 09/11/19 13:43 Urine Random Creatinine 91.4 mg/dL (Not Establ.) Urine Random Total Protein 124.0 mg/dL (Not Establ.) Urine Protein/Creatinine Ratio 1357 mg/g (0-200) Laboratory Tests Test 09/10/19 16:11 09/10/19 17:10 09/10/19 19:05 09/10/19 20:10 Glucose (Fingerstick) 448 mg/dL (70-99) 181 mg/dL (70-99) 168 mg/dL (70-99) Sodium Level 135 mmol/L (136-145) Potassium Level 2.6 mmol/L (3.5-5.1) Chloride Level 92 mmol/L (98-107) Carbon Dioxide Level 32 mmol/L (21-32) Anion Gap 11 (6-14) Blood Urea Nitrogen 40 mg/dL (8-26) Creatinine 2.0 mg/dL (0.7-1.3) Estimated GFR (Cockcroft-Gault) 35.5 Glucose Level 369 mg/dL (70-99) Calcium Level 8.9 mg/dL (8.5-10.1) Phosphorus Level 2.3 mg/dL (2.6-4.7) Magnesium Level 2.5 mg/dL (1.8-2.4) Albumin 2.5 g/dL (3.4-5.0) Test 09/10/19 20:45 09/10/19 21:23 09/10/19 22:31 09/10/19 23:26 Sodium Level 137 mmol/L (136-145) Potassium Level 3.6 mmol/L (3.5-5.1) Chloride Level 95 mmol/L (98-107) Carbon Dioxide Level 33 mmol/L (21-32) Anion Gap 9 (6-14) Blood Urea Nitrogen 42 mg/dL (8-26) Creatinine 1.9 mg/dL (0.7-1.3) Estimated GFR (Cockcroft-Gault) 37.7 Glucose Level 167 mg/dL (70-99) Calcium Level 8.9 mg/dL (8.5-10.1) Phosphorus Level 2.7 mg/dL (2.6-4.7) Albumin 2.5 g/dL (3.4-5.0) Glucose (Fingerstick) 143 mg/dL (70-99) 159 mg/dL (70-99) 156 mg/dL (70-99) Test 09/11/19 00:31 09/11/19 01:38 09/11/19 02:39 09/11/19 03:37 Glucose (Fingerstick) 198 mg/dL (70-99) 121 mg/dL (70-99) 79 mg/dL (70-99) 159 mg/dL (70-99) Test 09/11/19 04:14 09/11/19 06:02 09/11/19 07:07 09/11/19 08:09 White Blood Count 12.6 x10^3/uL (4.0-11.0) Red Blood Count 5.08 x10^6/uL (4.30-5.70) Hemoglobin 11.4 g/dL (13.0-17.5) Hematocrit 35.3 % (39.0-53.0) Mean Corpuscular Volume 70 fL (79-100) Mean Corpuscular Hemoglobin 22 pg (25-35) Mean Corpuscular Hemoglobin Concent 32 g/dL (31-37) Red Cell Distribution Width 20.3 % (11.5-14.5) Platelet Count 387 x10^3/uL (140-400) Neutrophils (%) (Auto) 76 % (31-73) Lymphocytes (%) (Auto) 14 % (24-48) Monocytes (%) (Auto) 10 % (0-9) Eosinophils (%) (Auto) 0 % (0-3) Basophils (%) (Auto) 0 % (0-3) Neutrophils # (Auto) 9.6 x10^3/uL (1.8-7.7) Lymphocytes # (Auto) 1.7 x10^3/uL (1.0-4.8) Monocytes # (Auto) 1.2 x10^3/uL (0.0-1.1) Eosinophils # (Auto) 0.0 x10^3/uL (0.0-0.7) Basophils # (Auto) 0.0 x10^3/uL (0.0-0.2) Sodium Level 139 mmol/L (136-145) Potassium Level 3.1 mmol/L (3.5-5.1) Chloride Level 97 mmol/L (98-107) Carbon Dioxide Level 27 mmol/L (21-32) Anion Gap 15 (6-14) Blood Urea Nitrogen 42 mg/dL (8-26) Creatinine 2.1 mg/dL (0.7-1.3) Estimated GFR (Cockcroft-Gault) 33.6 BUN/Creatinine Ratio 20 (6-20) Glucose Level 126 mg/dL (70-99) Calcium Level 8.9 mg/dL (8.5-10.1) Total Bilirubin 0.7 mg/dL (0.2-1.0) Aspartate Amino Transf (AST/SGOT) 30 U/L (15-37) Alanine Aminotransferase (ALT/SGPT) 27 U/L (16-63) Alkaline Phosphatase 192 U/L (46-116) Total Protein 7.1 g/dL (6.4-8.2) Albumin 2.5 g/dL (3.4-5.0) Albumin/Globulin Ratio 0.5 (1.0-1.7) Triglycerides Level 143 mg/dL (0-150) Glucose (Fingerstick) 116 mg/dL (70-99) 128 mg/dL (70-99) 152 mg/dL (70-99) Test 09/11/19 09:11 09/11/19 10:09 09/11/19 11:11 09/11/19 12:16 Glucose (Fingerstick) 155 mg/dL (70-99) 151 mg/dL (70-99) 163 mg/dL (70-99) 152 mg/dL (70-99) Test 09/11/19 13:43 Urine Random Creatinine 91.4 mg/dL (Not Establ.) Urine Random Total Protein 124.0 mg/dL (Not Establ.) Urine Protein/Creatinine Ratio 1357 mg/g (0-200) Images Images CT abdomen/pelvis: Impression: 1. Degraded study secondary to motion artifact. 2. Peripancreatic inflammatory changes compatible with acute pancreatitis. No fluid collection is identified. No obvious focal parenchymal hypoattenuation to suggest pancreatic necrosis noting the absence of intravenous contrast. Note is made that much of the gallbladder lumen is filled with gallstones and though no stone is definitively seen within the common bile duct, gallstone pancreatitis remains a consideration. 3. Ill-defined infiltrates involving the visualized left lower lung more so than the right. Sequela of aspiration or an atypical pneumonia could have this appearance. 4. Partially mineralized nodule off the medial pole of the left kidney measuring around 1 cm. A calcified cyst would be the most likely etiology but no comparison studies are available to determine stability. Consider 3-6 month ultrasound follow-up to assess for any change. 5. Punctate nonobstructing intrarenal stone at the upper pole of the right kidney. 6. Additional chronic observations as detailed above. Electronically signed by: ELIANE SHARMA MD (09/10/2019 11:44 AM) [id number] Assessment/Plan Assessment/Plan Pancreatitis, gallstones, diabetes; recommend supportive care, hydration, pain control, control of diabetes; would recommend lap itzel when pancreatitis improves; will recheck lipase in am TOMMY THOMPSON MD Sep 11, 2019 15:52
[2019-09-11] MEDS: ENOXAPARIN 40 MG/0.4 ML SYRINGE. SQ SCH (16:02)
--- NOTE | 2019-09-11 16:10 | NUR ---
Wound Care Wound Type/Assessment: L knee dehisced surgical incision-wound bed is slightly dry, pink and red with some granulation tissue present, with a small epithelialized island centrally, edges slightly rolled, periwound clear and intact. Treatment Recommendations/Plan: saline moistened collagen (left in room), cover with contact layer or vasoline gauze, then cover with ABD or gauze and tape, change every 2-3 days. Education provided: to pt re: dressing changes, as well as, blood sugar control. Offloading surface/device: N/A Recommended Referrals/Tests: N/A Discharge Recommendations for dressings: see treatment plan above, or defer to Dr. Avila if he has other recs.
[2019-09-11] MEDS: PATCH REMOVAL. MC SCH (21:00)
[2019-09-11] MEDS ORDERED: DOXEPIN HCL 25 MG CAPSULE. PO SCH (21:00)
[2019-09-11] MEDS: DOXEPIN 150 MG PO SCH (21:10)
--- NOTE | 2019-09-11 21:47 | CONS ---
DATE OF CONSULTATION: 09/11/2019 REQUESTING PHYSICIAN: Dr. Ramiro Walter. REASON FOR CONSULTATION: Left knee wound. HISTORY OF PRESENT ILLNESS: The patient is a 49-year-old male familiar to me from previous knee arthroplasty revision and subsequent difficulties with some wound drainage and healing problems requiring irrigation and debridement. He was undergoing ongoing wound care from me, but was unable to make his recent appointment since he was sick and throwing up. He had been undergoing [id number] localized dressing changes at home and indicates that overall with regard to the knee that he has had much less drainage, little pain and overall felt that was doing well, but he has had vomiting and some nausea really for the past couple of weeks. It is much more severe over the past several days where he has lost maybe 20 pounds and I really cannot stop the nausea and vomiting despite medications. He presented with an extremely elevated glucose measurement and diagnosed with pancreatitis. PAST MEDICAL HISTORY: Significant for bipolar history of methicillin-resistant Staphylococcus aureus, hypertension, hypothyroidism, diabetes mellitus. PAST SURGICAL HISTORY: Knee replacement, vasectomy, cardiac catheterization, tonsillectomy. FAMILY HISTORY: Pancreatic and gallbladder disease. SOCIAL HISTORY: He has not smoked for 3 months, prior to that was 1 pack per day smoker. Rare alcohol use. Denies drug use. MEDICATIONS: List is reviewed. ALLERGIES: INCLUDE DAPTOMYCIN AND KETAMINE. REVIEW OF SYSTEMS: Significant for the recent vomiting. He denies any fever or chills. No knee pain, decreasing drainage is noted above. PHYSICAL EXAMINATION: GENERAL: Pleasant, cooperative 49-year-old male, but he just appears weak and in poor health. EXTREMITIES: Examination of his left knee; distal portion of his incision is filling in and actually granulating in quite well from the sides with skin. The area of his granulation tissue looks healthy and there was only a slight tinge of bloody drainage. The rest of incision is well healed. Knee is stable. Distal neurovascular status is intact. IMPRESSION: 1. Left knee wound with ongoing wound care. 2. Admission for pancreatitis. TREATMENT PLAN: At this point, his wound is coming along so well with the current [id number] dressing changes. Keeping it debrided and granulating well, I think we should keep on with this and happy for a wound care to follow him along in the hospital as well and continue his [id number] dressing changes twice daily at the present time. THEE GOMEZ MD DR: KADE/ritesh JOB#: [id number] / [id number]
[2019-09-12] VITALS (11 sets, daily range): BP systolic 145–171; BP diastolic 68–104
[2019-09-12] MEDS: IV NORMAL SALINE 1000ML BAG 1,000 ML IV SCH ×2 (01:47→15:48)
[2019-09-12 04:38] LABS: CALCIUM 8.5 mg/dL (8.5-10.1); CREATININE 2.1 mg/dL (0.7-1.3); GFR 33.6; POTASSIUM 3.6 mmol/L (3.5-5.1)
[2019-09-12] MEDS: PIPERACILLIN/TAZOBACTAM 3.375 GM in IV NORMAL SALINE 50ML 50 ML IV SCH ×4 (05:34→23:11)
[2019-09-12] MEDS: oxyCODONE/APAP 7.5/325 1 TAB TABLET PO PRN ×2 (05:40→11:29)
--- NOTE | 2019-09-12 07:20 | NUR ---
IP: Pts hx of mrsa is nasal screens. Please initiate Nozin/CHG protocol and remove from contact precautions.
[2019-09-12] MEDS: clonazePAM 0.5 MG TABLET PO SCH ×2 (07:53→20:48)
[2019-09-12] MEDS: LITHIUM CARBONATE ER 300 MG TABLET.ER PO SCH ×2 (07:56→20:48)
[2019-09-12] MEDS: LINAGLIPTIN 5 MG TABLET PO SCH (07:56)
[2019-09-12] MEDS: PANTOPRAZOLE IV PUSH 40 MG VIAL. IVP SCH (07:56)
[2019-09-12] MEDS: LIDOCAINE (700MG/PATCH) PATCH. TP SCH (07:57)
[2019-09-12] MEDS: INSULIN LISPRO 300 UNITS/3 ML VIAL. SQ SCH ×4 (07:58→21:00)
--- NOTE | 2019-09-12 08:25 | PDOC ---
[facility] PROGRESS NOTE Chief Complaint Chief Complaint 1 Peripancreatic inflammatory changes compatible with acute pancreatitis. much of the gallbladder lumen is filled with gallstones and though no stone is definitively seen within the common bile duct, gallstone pancreatitis remains a consideration. 2. Ill-defined infiltrates involving the visualized left lower lung more so than the right. Sequela of aspiration or an atypical pneumonia may have this a ppearance. 3. mineralized nodule off the medial pole of the left kidney measuring around 1cm //calcified cyst would be the most likely etiology 4. hyperglycemia, uncontrolled nonketotic // diabetes 5. morbid obesity 6. intractable nausea, vomiting 7. JAQUAN 8. Pseudohyponatremia History of Present Illness History of Present Illness 09/12/2019 Patient seen and examined in the ICU Chart reviewed Lipase is down into the 400s from the 700s Clinically he looks better 09/11/2019 Patient seen and examined His mother is here helping (MARCUS Johnson) Discussed with RN Chart reviewed Called Dr. Isidro We have all agreed to put the patient on a clear liquid diet so he can take his home meds especially his psych meds Glucose is doing better at 120 Lipase was only 700 Patient clinically is doing okay but little depressed We are also going to consult infectious disease and orthopedics (he has a chronic knee infection and recent knee surgery) GI nurse practitioner Amelia just arrived to examine the patient as well Vitals/I&O Vitals/I&O: Vital Signs Date Time Temp Pulse Resp B/P (MAP) Pulse Ox O2 Delivery O2 Flow Rate FiO2 09/12/19 07:19 20 99 Room Air 09/12/19 07:00 95 152/85 (107) 09/12/19 04:30 98.2 98.2 I & O 09/11/19 09/11/19 09/12/19 15:00 23:00 07:00 Intake Total 150 ml Output Total 300 ml Balance -150 ml Physical Exam General: Alert, Oriented X3, Cooperative Heart: Regular rate, Normal S1 Lungs: Clear Abdomen: Soft, No tenderness Extremities: No clubbing, No cyanosis Skin: No rashes Labs Labs: Laboratory Tests Test 09/11/19 09:11 09/11/19 10:09 09/11/19 11:11 09/11/19 12:16 Glucose (Fingerstick) 155 mg/dL (70-99) 151 mg/dL (70-99) 163 mg/dL (70-99) 152 mg/dL (70-99) Test 09/11/19 13:43 09/11/19 17:04 09/11/19 21:08 09/12/19 03:57 Urine Random Creatinine 91.4 mg/dL (Not Establ.) Urine Random Total Protein 124.0 mg/dL (Not Establ.) Urine Protein/Creatinine Ratio 1357 mg/g (0-200) Glucose (Fingerstick) 271 mg/dL (70-99) 228 mg/dL (70-99) Sodium Level 139 mmol/L (136-145) Potassium Level 3.6 mmol/L (3.5-5.1) Chloride Level 100 mmol/L (98-107) Carbon Dioxide Level 24 mmol/L (21-32) Anion Gap 15 (6-14) Blood Urea Nitrogen 38 mg/dL (8-26) Creatinine 2.1 mg/dL (0.7-1.3) Estimated GFR (Cockcroft-Gault) 33.6 Glucose Level 206 mg/dL (70-99) Calcium Level 8.5 mg/dL (8.5-10.1) Lipase 479 U/L (73-393) Test 09/12/19 07:53 Glucose (Fingerstick) 242 mg/dL (70-99) Assessment and Plan Assessmemt and Plan Problems Medical Problems: (1) Acute kidney injury Status: Acute (2) Dehydration Status: Acute Pancreatitis Hyperglycemia Gallstones Obese Intractable nausea vomiting Acute kidney injury Abnormal chest x-ray ( Ill-defined infiltrates involving the visualized left lower lung more so than the right. Sequela of aspiration or an atypical pneumonia may have this appearance.) Diabetes Pseudohyponatremia History of bipolar History of recent knee surgery Plan GI general surgery infectious disease pulmonary nephrology and orthopedics following Clear liquid diet IV Zosyn Trend his lipase levels (they are down) Dr. Alcantara recommends lap itzel soon once clinically stable and I think he probably is at this point Insulin protocol PRN Zofran IV fluids Home meds DVT prophylaxis Full code Appreciate subspecialist input Comment Review of Relevant I have reviewed the following items blaze (where applicable) has been applied. Medications: Current Medications Medications (Trade) Dose Ordered Sig/Edilma Route PRN Reason Start Time Stop Time Status Last Admin Dose Admin Lidocaine (Lidoderm) 1 patch DAILY TP 09/11/19 10:00 09/12/19 07:57 Lisinopril (Prinivil) 5 mg PRN DAILY PRN PO hypertension 09/11/19 09:45 09/11/19 12:14 Oxycodone/ Acetaminophen (Percocet 7.5/ 325) 1 tab PRN Q6HRS PRN PO MODERATE TO SEVERE PAIN 09/11/19 09:45 09/12/19 05:40 Clonazepam (KlonoPIN) 1 mg BID PO 09/11/19 10:00 09/12/19 07:53 [place] Carbonate (Lithobid) 300 mg BID PO 09/11/19 10:00 09/12/19 07:56 Linagliptin (Tradjenta) 5 mg DAILY PO 09/11/19 10:00 09/12/19 07:56 Miscellaneous (Lidoderm Patch Removal) 1 ea QHS MC 09/11/19 21:00 09/11/19 21:00 Non-Formulary Medication 2 ea QHS PO 09/11/19 21:00 09/11/19 21:10 Insulin Human Lispro (HumaLOG) 0-7 UNITS QIDACHS SQ 09/11/19 21:00 09/12/19 07:58 Justicifation of Admission Dx: Justifications for Admission: Justification of Admission Dx: Yes Comminuty Aquired Pneumonia: Hemodynamic Instability Acute Renal Failure: RF Can't Be Managed Outpt Sepsis: Dehydration VISHAL KATZ III DO Sep 12, 2019 08:25
--- NOTE | 2019-09-12 09:14 | PDOC ---
SUBJECTIVE ROS Denies N/V, c/o Back pain OBJECTIVE Vital Signs Vital Signs Date Time Temp Pulse Resp B/P (MAP) Pulse Ox O2 Delivery O2 Flow Rate FiO2 09/12/19 09:00 99 18 150/79 (102) 96 Room Air 09/12/19 08:00 98.5 98.5 I & 0 Intake and Output 09/12/19 07:00 Intake Total 150 ml Output Total 300 ml Balance -150 ml Intake Oral 150 ml Output Urine Total 300 ml # Voids 4 # Bowel Movements 4 PHYSICAL EXAM Physical Exam General: NAD HEENT: OM dry Neck Supple Lungs: Clear to auscultation, Non labored Heart: RRR Abdomen: soft Extremities: No cyanosis, No LE edema Neuro: Grossly normal Psych/Mental Status: Mental status NL, Mood NL No barr, No SP or CVA tenderness DIAGNOSIS/ASSESSMENT Assessment & Plan JAQUAN - ATN 2/2 dehydration- Intractable N/V Vomiting Good UOP, UA -no e/o GN , stable renal function Supportive care, IVF, Strict I/O, avoid nephrotoxins HypoKalemia- resolved Renal Cyst - Lt kidney per CT report - Partially mineralized nodule off the medial pole of the left kidney measuring around 1 cm. A calcified cyst would be the most likely etiology Consider 3-6 month ultrasound follow-up to assess for any change. Punctate nonobstructing intrarenal stone at the upper pole of the right kidney Acute pancreatitis - Non alcoholic, GI following Cholelithiasis - gallbladder lumen is filled with gallstones on CT DM - Uncontrolled , No Diabetic Retinopathy per history UA with Overt proteinuria, suspect 2/2 DM , On Low dose Lisinopril per home meds , Pr/Cr Non nephrotic 1.3 gms HTN - antihypertensives Hx of Bipolar- Per Home list on [place], levels <0.2 COMMENT/RELEVANT DATA Meds Current Medications Medications (Trade) Dose Ordered Sig/Edilma Start Time Stop Time Status Last Admin Dose Admin Acetaminophen (Tylenol Supp) 650 mg PRN Q4HRS PRN 09/10/19 13:15 Albuterol Sulfate (Ventolin Neb Soln) 2.5 mg PRN Q4HRS PRN 09/10/19 20:00 Albuterol/ Ipratropium (Duoneb) 3 ml Q4HRS 09/10/19 16:00 09/10/19 19:57 DC Clonazepam (KlonoPIN) 1 mg BID 09/11/19 10:00 09/12/19 07:53 1 MG Clonidine HCl (Catapres) 0.1 mg PRN Q6HRS PRN 09/10/19 13:15 Dextrose (Dextrose 50%-Water Syringe) 12.5 gm PRN Q15MIN PRN 09/10/19 21:15 Dextrose (Iv Dextrose 5%) 250 ml PRN Q15MIN PRN 09/10/19 13:15 Docusate Sodium (Colace) 100 mg PRN BID PRN 09/10/19 13:15 Doxepin HCl (SINEquan) 300 mg QHS 09/11/19 21:00 Cancel Enoxaparin Sodium (Lovenox 40mg Syringe) 40 mg Q24H 09/10/19 15:00 09/11/19 16:02 40 MG Hydralazine HCl (Apresoline Inj) 10 mg PRN Q4HRS PRN 09/10/19 15:45 09/11/19 03:23 10 MG Insulin Human Lispro (HumaLOG) 0-7 UNITS QIDACHS 09/11/19 21:00 09/12/19 07:58 2 UNITS Insulin Human Regular 0 ml @ As Directed STK-MED ONCE 09/10/19 13:47 09/10/19 13:47 DC Insulin Human Regular 100 unit/ Sodium Chloride 101 ml @ 0 mls/hr CONT PRN 09/10/19 13:15 09/10/19 21:21 5.4 MLS/HR Lidocaine (Lidoderm) 1 patch DAILY 09/11/19 10:00 09/12/19 07:57 1 PATCH Linagliptin (Tradjenta) 5 mg DAILY 09/11/19 10:00 09/12/19 07:56 5 MG Lisinopril (Prinivil) 5 mg PRN DAILY PRN 09/11/19 09:45 09/11/19 12:14 5 MG [place] Carbonate (Lithobid) 300 mg BID 09/11/19 10:00 09/12/19 07:56 300 MG Metformin HCl (Glucophage) 1,000 mg BIDWMEALS 09/11/19 10:00 09/11/19 12:45 DC Miscellaneous (Lidoderm Patch Removal) 1 ea QHS 09/11/19 21:00 09/11/19 21:00 1 EA Non-Formulary Medication 2 ea QHS 09/11/19 21:00 09/11/19 21:10 2 EA Ondansetron HCl (Zofran) 4 mg PRN Q4HRS PRN 09/10/19 13:15 09/11/19 23:41 4 MG Oxycodone/ Acetaminophen (Percocet 7.5/ 325) 1 tab PRN Q6HRS PRN 09/11/19 09:45 09/12/19 05:40 1 TAB Pantoprazole Sodium (PROTONIX VIAL for IV PUSH) 40 mg DAILYAC 09/11/19 07:30 09/12/19 07:56 40 MG Piperacillin Sod/ Tazobactam Sod 3.375 gm/Sodium Chloride 50 ml @ 100 mls/hr Q6HRS 09/10/19 16:00 09/12/19 05:34 100 MLS/HR Potassium Chloride/Water 100 ml @ 100 mls/hr Q1H 09/11/19 07:00 09/11/19 08:59 DC 09/11/19 10:05 100 MLS/HR Potassium Phosphate 13.6 mmol/Sodium Chloride 254.5333 ml @ 62.5 mls/hr 1X ONCE 09/10/19 18:00 09/10/19 22:04 DC 09/10/19 18:24 62.5 MLS/HR Prochlorperazine Edisylate (Compazine) 10 mg PRN Q6HRS PRN 09/10/19 15:45 09/10/19 15:53 10 MG Sodium Chloride 1,000 ml @ 100 mls/hr Q10H 09/10/19 13:05 09/12/19 01:47 100 MLS/HR Sodium Chloride (Normal Saline Flush) 3 ml QSHIFT PRN 09/10/19 13:15 09/10/19 13:54 3 ML Tizanidine HCl (Zanaflex) 1 mg PRN TID PRN 09/11/19 09:45 Lab Laboratory Tests Test 09/11/19 10:09 09/11/19 11:11 09/11/19 12:16 09/11/19 13:43 Glucose (Fingerstick) 151 mg/dL (70-99) 163 mg/dL (70-99) 152 mg/dL (70-99) Urine Random Creatinine 91.4 mg/dL (Not Establ.) Urine Random Total Protein 124.0 mg/dL (Not Establ.) Urine Protein/Creatinine Ratio 1357 mg/g (0-200) Test 09/11/19 17:04 09/11/19 21:08 09/12/19 03:57 09/12/19 07:53 Glucose (Fingerstick) 271 mg/dL (70-99) 228 mg/dL (70-99) 242 mg/dL (70-99) Sodium Level 139 mmol/L (136-145) Potassium Level 3.6 mmol/L (3.5-5.1) Chloride Level 100 mmol/L (98-107) Carbon Dioxide Level 24 mmol/L (21-32) Anion Gap 15 (6-14) Blood Urea Nitrogen 38 mg/dL (8-26) Creatinine 2.1 mg/dL (0.7-1.3) Estimated GFR (Cockcroft-Gault) 33.6 Glucose Level 206 mg/dL (70-99) Calcium Level 8.5 mg/dL (8.5-10.1) Lipase 479 U/L (73-393) Results All relevant outside records, renal labs, imaging studies, telemetry/EKG's were reviewed. Justicifation of Admission Dx: Justifications for Admission: Justification of Admission Dx: Yes Comminuty Aquired Pneumonia: Hemodynamic Instability Acute Renal Failure: RF Can't Be Managed Outpt Sepsis: Dehydration NIALL PAINTER MD Sep 12, 2019 09:14
--- NOTE | 2019-09-12 10:14 | PDOC ---
Subjective: Subjective: Chronic back pain bothering him today. No nausea, tolerating clears. Objective: Vital Signs: Vital Signs Date Time Temp Pulse Resp B/P (MAP) Pulse Ox O2 Delivery O2 Flow Rate FiO2 09/12/19 09:00 99 18 150/79 (102) 96 Room Air 09/12/19 08:00 98.5 98.5 Labs: Laboratory Tests Test 09/11/19 11:11 09/11/19 12:16 09/11/19 13:43 09/11/19 17:04 Glucose (Fingerstick) 163 mg/dL 152 mg/dL 271 mg/dL Urine Random Creatinine 91.4 mg/dL Urine Random Total Protein 124.0 mg/dL Urine Protein/Creatinine Ratio 1357 mg/g Test 09/11/19 21:08 09/12/19 03:57 09/12/19 07:53 Glucose (Fingerstick) 228 mg/dL 242 mg/dL Sodium Level 139 mmol/L Potassium Level 3.6 mmol/L Chloride Level 100 mmol/L Carbon Dioxide Level 24 mmol/L Anion Gap 15 Blood Urea Nitrogen 38 mg/dL Creatinine 2.1 mg/dL Estimated GFR (Cockcroft-Gault) 33.6 Glucose Level 206 mg/dL Calcium Level 8.5 mg/dL Lipase 479 U/L Imaging: [facility] Bedside Swallow Eval Bedside swallow eval completed. See full rpt in interventions. IMPRESSIONS: No evidence of dysphagia or aspiration. Low suspicion of silent aspiration. Pt denies hx of frequent respiratory infections. Could consider further eval of swallow w/ imaging if desired, following any surgery related to current acute pancreatitis. RECOMMENDATIONS: Diet as indicated per MD. General precautions. LUZ Cabrera. PE: GEN: NAD LUNGS: CTAB HEART: RRR ABD: S/ND/NT NEURO/PSYCH: A & O 3 A/P: Gallstone pancreatitis DM, JAQUAN, chronic pain -- Defer diet/timing of cholecystectomy to surgery. Justicifation of Admission Dx: Justifications for Admission: Justification of Admission Dx: Yes Comminuty Aquired Pneumonia: Hemodynamic Instability Acute Renal Failure: RF Can't Be Managed Outpt Sepsis: Dehydration ADAN PEREZ Sep 12, 2019 10:14
--- NOTE | 2019-09-12 11:16 | PDOC ---
PULMONARY PROGRESS NOTES Subjective no soa Vitals Vital Signs Date Time Temp Pulse Resp B/P (MAP) Pulse Ox O2 Delivery O2 Flow Rate FiO2 09/12/19 09:00 99 18 150/79 (102) 96 Room Air 09/12/19 08:00 98.5 98.5 General: Alert, No acute distress Lungs: Clear Cardiovascular: S1 Abdomen: Soft Neuro Exam: Alert Extremities: No Edema Skin: Warm Labs Laboratory Tests Test 09/10/19 13:32 09/10/19 14:55 09/10/19 15:00 09/10/19 16:11 Glucose (Fingerstick) 553 mg/dL (70-99) 555 mg/dL (70-99) 448 mg/dL (70-99) Urine Collection Type Unknown Urine Color Yellow Urine Clarity Clear Urine pH 5.5 (<5.0-8.0) Urine Specific [place] >=1.030 (1.000-1.030) Urine Protein 100 mg/dL (NEG-TRACE) Urine Glucose (UA) >=1000 mg/dL (NEG) Urine Ketones (Stick) 15 mg/dL (NEG) Urine Blood Trace (NEG) Urine Nitrite Negative (NEG) Urine Bilirubin Negative (NEG) Urine Urobilinogen Dipstick 0.2 mg/dL (0.2 mg/dL) Urine Leukocyte Esterase Negative (NEG) Urine RBC Rare /HPF (0-2) Urine WBC 1-4 /HPF (0-4) Urine Squamous Epithelial Cells Mod /LPF Urine Bacteria 0 /HPF (0-FEW) Urine Yeast Present /HPF Test 09/10/19 17:10 09/10/19 19:05 09/10/19 20:10 09/10/19 20:45 Sodium Level 135 mmol/L (136-145) 137 mmol/L (136-145) Potassium Level 2.6 mmol/L (3.5-5.1) 3.6 mmol/L (3.5-5.1) Chloride Level 92 mmol/L (98-107) 95 mmol/L (98-107) Carbon Dioxide Level 32 mmol/L (21-32) 33 mmol/L (21-32) Anion Gap 11 (6-14) 9 (6-14) Blood Urea Nitrogen 40 mg/dL (8-26) 42 mg/dL (8-26) Creatinine 2.0 mg/dL (0.7-1.3) 1.9 mg/dL (0.7-1.3) Estimated GFR (Cockcroft-Gault) 35.5 37.7 Glucose Level 369 mg/dL (70-99) 167 mg/dL (70-99) Calcium Level 8.9 mg/dL (8.5-10.1) 8.9 mg/dL (8.5-10.1) Phosphorus Level 2.3 mg/dL (2.6-4.7) 2.7 mg/dL (2.6-4.7) Magnesium Level 2.5 mg/dL (1.8-2.4) Albumin 2.5 g/dL (3.4-5.0) 2.5 g/dL (3.4-5.0) Glucose (Fingerstick) 181 mg/dL (70-99) 168 mg/dL (70-99) Test 09/10/19 21:23 09/10/19 22:31 09/10/19 23:26 09/11/19 00:31 Glucose (Fingerstick) 143 mg/dL (70-99) 159 mg/dL (70-99) 156 mg/dL (70-99) 198 mg/dL (70-99) Test 09/11/19 01:38 09/11/19 02:39 09/11/19 03:37 09/11/19 04:14 Glucose (Fingerstick) 121 mg/dL (70-99) 79 mg/dL (70-99) 159 mg/dL (70-99) White Blood Count 12.6 x10^3/uL (4.0-11.0) Red Blood Count 5.08 x10^6/uL (4.30-5.70) Hemoglobin 11.4 g/dL (13.0-17.5) Hematocrit 35.3 % (39.0-53.0) Mean Corpuscular Volume 70 fL (79-100) Mean Corpuscular Hemoglobin 22 pg (25-35) Mean Corpuscular Hemoglobin Concent 32 g/dL (31-37) Red Cell Distribution Width 20.3 % (11.5-14.5) Platelet Count 387 x10^3/uL (140-400) Neutrophils (%) (Auto) 76 % (31-73) Lymphocytes (%) (Auto) 14 % (24-48) Monocytes (%) (Auto) 10 % (0-9) Eosinophils (%) (Auto) 0 % (0-3) Basophils (%) (Auto) 0 % (0-3) Neutrophils # (Auto) 9.6 x10^3/uL (1.8-7.7) Lymphocytes # (Auto) 1.7 x10^3/uL (1.0-4.8) Monocytes # (Auto) 1.2 x10^3/uL (0.0-1.1) Eosinophils # (Auto) 0.0 x10^3/uL (0.0-0.7) Basophils # (Auto) 0.0 x10^3/uL (0.0-0.2) Sodium Level 139 mmol/L (136-145) Potassium Level 3.1 mmol/L (3.5-5.1) Chloride Level 97 mmol/L (98-107) Carbon Dioxide Level 27 mmol/L (21-32) Anion Gap 15 (6-14) Blood Urea Nitrogen 42 mg/dL (8-26) Creatinine 2.1 mg/dL (0.7-1.3) Estimated GFR (Cockcroft-Gault) 33.6 BUN/Creatinine Ratio 20 (6-20) Glucose Level 126 mg/dL (70-99) Calcium Level 8.9 mg/dL (8.5-10.1) Total Bilirubin 0.7 mg/dL (0.2-1.0) Aspartate Amino Transf (AST/SGOT) 30 U/L (15-37) Alanine Aminotransferase (ALT/SGPT) 27 U/L (16-63) Alkaline Phosphatase 192 U/L (46-116) Total Protein 7.1 g/dL (6.4-8.2) Albumin 2.5 g/dL (3.4-5.0) Albumin/Globulin Ratio 0.5 (1.0-1.7) Triglycerides Level 143 mg/dL (0-150) Test 09/11/19 06:02 09/11/19 07:07 09/11/19 08:09 09/11/19 09:11 Glucose (Fingerstick) 116 mg/dL (70-99) 128 mg/dL (70-99) 152 mg/dL (70-99) 155 mg/dL (70-99) Test 09/11/19 10:09 09/11/19 11:11 09/11/19 12:16 09/11/19 13:43 Glucose (Fingerstick) 151 mg/dL (70-99) 163 mg/dL (70-99) 152 mg/dL (70-99) Urine Random Creatinine 91.4 mg/dL (Not Establ.) Urine Random Total Protein 124.0 mg/dL (Not Establ.) Urine Protein/Creatinine Ratio 1357 mg/g (0-200) Test 09/11/19 17:04 09/11/19 21:08 09/12/19 03:57 09/12/19 07:53 Glucose (Fingerstick) 271 mg/dL (70-99) 228 mg/dL (70-99) 242 mg/dL (70-99) Sodium Level 139 mmol/L (136-145) Potassium Level 3.6 mmol/L (3.5-5.1) Chloride Level 100 mmol/L (98-107) Carbon Dioxide Level 24 mmol/L (21-32) Anion Gap 15 (6-14) Blood Urea Nitrogen 38 mg/dL (8-26) Creatinine 2.1 mg/dL (0.7-1.3) Estimated GFR (Cockcroft-Gault) 33.6 Glucose Level 206 mg/dL (70-99) Calcium Level 8.5 mg/dL (8.5-10.1) Lipase 479 U/L (73-393) Laboratory Tests Test 09/11/19 12:16 09/11/19 13:43 09/11/19 17:04 09/11/19 21:08 Glucose (Fingerstick) 152 mg/dL (70-99) 271 mg/dL (70-99) 228 mg/dL (70-99) Urine Random Creatinine 91.4 mg/dL (Not Establ.) Urine Random Total Protein 124.0 mg/dL (Not Establ.) Urine Protein/Creatinine Ratio 1357 mg/g (0-200) Test 09/12/19 03:57 09/12/19 07:53 Sodium Level 139 mmol/L (136-145) Potassium Level 3.6 mmol/L (3.5-5.1) Chloride Level 100 mmol/L (98-107) Carbon Dioxide Level 24 mmol/L (21-32) Anion Gap 15 (6-14) Blood Urea Nitrogen 38 mg/dL (8-26) Creatinine 2.1 mg/dL (0.7-1.3) Estimated GFR (Cockcroft-Gault) 33.6 Glucose Level 206 mg/dL (70-99) Calcium Level 8.5 mg/dL (8.5-10.1) Lipase 479 U/L (73-393) Glucose (Fingerstick) 242 mg/dL (70-99) Medications Active Scripts Medications Dose Route/Sig Max Daily Dose Days Date Category Dose Instructions Doxycycline Hyclate 100 Mg Capsule 100 Mg PO BID 09/11/19 Reported Clindamycin Hcl 300 Mg Capsule 600 Mg PO BID 09/11/19 Reported Lidocaine PATCH (Lidocaine) 1 Each Adh..patch 1 Each TP DAILY 03/12/19 Reported REMOVE AFTER 12 HOURS Lisinopril 5 Mg Tablet 1 Tab PO DAILY PRN 03/12/19 Reported Percocet 7.5-325 Mg Tablet (Oxycodone/Acetaminophen) 1 Each Tablet 1 Tab PO PRN Q6HRS PRN 03/12/19 Reported Clonazepam 1 Mg Tablet 1 Mg PO BID 03/12/19 Reported [place] Carbonate 300 Mg Tablet 1 Tab PO BID 08/08/18 Reported Zanaflex (Tizanidine Hcl) 4 Mg Capsule 1 Cap PO TID PRN 08/25/15 Reported Janumet 50-1,000 Mg Tablet (Sitagliptin Phos/Metformin Hcl) 1 Each Tablet 1 Tab PO BID 01/17/15 Reported Doxepin Hcl 50 Mg Capsule 300 Mg PO HS 01/17/15 Reported Impression . 1. Abnormal CT of the abdomen with lower sections of the lungs showing some inflammatory changes involving the left lower lobe. This could be a combination of atelectasis from the abdominal process versus possibility of pneumonitis. The patient has been complaining of some cough with some brownish sputum. 2. No significant tobacco history. 3. Acute pancreatitis, being followed by GI. He is a nonalcoholic. Likely etiology appears to be gallstone pancreatitis. 4. Acute kidney injury, probably on chronic kidney disease. 5. Hyperglycemia, present on admission, improving. Plan . 1. Pulmonary status appears to be overall stable. 2. Continue with present Zosyn. 3. Follow GI recommendations. 4. DVT prophylaxis with Lovenox. 5. Discussed with the patient's mother and RN and will be following him. HAMMAD MORILLO MD Sep 12, 2019 11:16
--- NOTE | 2019-09-12 11:47 | PDOC ---
Infectious Disease Note Subjective Subjective Feeling better. No nausea vomiting diarrhea or abdominal pain ROS ROS No fever no problem with the knee Vital Sign Vital Signs Vital Signs Date Time Temp Pulse Resp B/P (MAP) Pulse Ox O2 Delivery O2 Flow Rate FiO2 09/12/19 11:29 20 93 Room Air 3.0 09/12/19 09:00 99 150/79 (102) 09/12/19 08:00 98.5 98.5 Physical Exam PHYSICAL EXAM GENERAL: Alert, oriented gentleman, not in distress. VITAL SIGNS: Stable, afebrile. HEENT: NAD. NECK: Supple, no JVP, no lymphadenopathy. LUNGS: Clear. HEART: S1, S2 regular. ABDOMEN: Benign. EXTREMITIES: No edema, cyanosis. SKIN: Unremarkable except left knee, there is a small wound on to the knee which appears clean, healthy, red granulation tissue and no drainage. NEUROLOGIC: The patient is alert, awake and appropriate. No focal neurologic deficit. Labs Lab Laboratory Tests Test 09/11/19 12:16 09/11/19 13:43 09/11/19 17:04 09/11/19 21:08 Glucose (Fingerstick) 152 mg/dL (70-99) 271 mg/dL (70-99) 228 mg/dL (70-99) Urine Random Creatinine 91.4 mg/dL (Not Establ.) Urine Random Total Protein 124.0 mg/dL (Not Establ.) Urine Protein/Creatinine Ratio 1357 mg/g (0-200) Test 09/12/19 03:57 09/12/19 07:53 Sodium Level 139 mmol/L (136-145) Potassium Level 3.6 mmol/L (3.5-5.1) Chloride Level 100 mmol/L (98-107) Carbon Dioxide Level 24 mmol/L (21-32) Anion Gap 15 (6-14) Blood Urea Nitrogen 38 mg/dL (8-26) Creatinine 2.1 mg/dL (0.7-1.3) Estimated GFR (Cockcroft-Gault) 33.6 Glucose Level 206 mg/dL (70-99) Calcium Level 8.5 mg/dL (8.5-10.1) Lipase 479 U/L (73-393) Glucose (Fingerstick) 242 mg/dL (70-99) Micro Microbiology 09/10/19 Blood Culture - Preliminary, Resulted NO GROWTH AFTER 1 DAY Objective Assessment IMPRESSION: 1. Nausea, vomiting, and pancreatitis, unclear etiology. May have been gallstone or CBD stone causing blockage. I have asked for triglyceride levels. The patient does not drink alcohol. 2. Left total knee arthroplasty infection with the last culture only positive was from Dr. Avila's office, which was sent into some outside lab and has coagulase negative Staphylococcus, which was oxacillin resistant and tetracycline resistant. Hence, the patient is on clindamycin. Unfortunately, not a good drug but not much options. 3. Chest x-ray is normal, but the CT showing possible infiltrate, may have aspirated. 4. Diabetes. 5. Hypertension. 6. Bipolar disorder. 7. Renal insufficiency. Plan Plan of Care Continue supportive care. Continue local wound care on the knee. And now patient can be switched over to p.o. clindamycin RUTH DOUGLASS MD Sep 12, 2019 11:47
--- NOTE | 2019-09-12 14:53 | NUR ---
SS following up with discharge planning. SS reviewed pt chart and discussed with pt RN. Pt is currently on room air and IV Zosyn. Pt declining PT/OT. Pt has tentative surgery scheduled for 09/13/2019. Pt COVID19 pending. SS will continue to follow for discharge planning.
--- NOTE | 2019-09-12 15:04 | PDOC ---
PROGRESS NOTES Subjective Subjective Doing "ok", not much pain Objective Objective Vital Signs Date Time Temp Pulse Resp B/P (MAP) Pulse Ox O2 Delivery O2 Flow Rate FiO2 09/12/19 12:29 18 98 Room Air 09/12/19 12:00 98.2 96 159/85 (109) 98.2 09/12/19 11:29 3.0 Intake and Output 09/12/19 07:00 Intake Total 150 ml Output Total 300 ml Balance -150 ml Intake Oral 150 ml Output Urine Total 300 ml # Voids 4 # Bowel Movements 4 Physical Exam Abdomen: Soft, No tenderness Heart: Regular rate Extremities: No clubbing, No cyanosis General: Alert, Oriented X3 Psych/Mental Status: Mental status NL Assessment Assessment Problems Medical Problems: (1) Acute kidney injury Status: Acute (2) Dehydration Status: Acute Plan Plan of Care Lipase coming down, will recheck in AM; poss lap itzel in next 24-48 hour pending OR availability Comment Review of Relevant I have reviewed the following items blaze (where applicable) has been applied. Labs Laboratory Tests Test 09/10/19 16:11 09/10/19 17:10 09/10/19 19:05 09/10/19 20:10 Glucose (Fingerstick) 448 mg/dL (70-99) 181 mg/dL (70-99) 168 mg/dL (70-99) Sodium Level 135 mmol/L (136-145) Potassium Level 2.6 mmol/L (3.5-5.1) Chloride Level 92 mmol/L (98-107) Carbon Dioxide Level 32 mmol/L (21-32) Anion Gap 11 (6-14) Blood Urea Nitrogen 40 mg/dL (8-26) Creatinine 2.0 mg/dL (0.7-1.3) Estimated GFR (Cockcroft-Gault) 35.5 Glucose Level 369 mg/dL (70-99) Calcium Level 8.9 mg/dL (8.5-10.1) Phosphorus Level 2.3 mg/dL (2.6-4.7) Magnesium Level 2.5 mg/dL (1.8-2.4) Albumin 2.5 g/dL (3.4-5.0) Test 09/10/19 20:45 09/10/19 21:23 09/10/19 22:31 09/10/19 23:26 Sodium Level 137 mmol/L (136-145) Potassium Level 3.6 mmol/L (3.5-5.1) Chloride Level 95 mmol/L (98-107) Carbon Dioxide Level 33 mmol/L (21-32) Anion Gap 9 (6-14) Blood Urea Nitrogen 42 mg/dL (8-26) Creatinine 1.9 mg/dL (0.7-1.3) Estimated GFR (Cockcroft-Gault) 37.7 Glucose Level 167 mg/dL (70-99) Calcium Level 8.9 mg/dL (8.5-10.1) Phosphorus Level 2.7 mg/dL (2.6-4.7) Albumin 2.5 g/dL (3.4-5.0) Glucose (Fingerstick) 143 mg/dL (70-99) 159 mg/dL (70-99) 156 mg/dL (70-99) Test 09/11/19 00:31 09/11/19 01:38 09/11/19 02:39 09/11/19 03:37 Glucose (Fingerstick) 198 mg/dL (70-99) 121 mg/dL (70-99) 79 mg/dL (70-99) 159 mg/dL (70-99) Test 09/11/19 04:14 09/11/19 06:02 09/11/19 07:07 09/11/19 08:09 White Blood Count 12.6 x10^3/uL (4.0-11.0) Red Blood Count 5.08 x10^6/uL (4.30-5.70) Hemoglobin 11.4 g/dL (13.0-17.5) Hematocrit 35.3 % (39.0-53.0) Mean Corpuscular Volume 70 fL (79-100) Mean Corpuscular Hemoglobin 22 pg (25-35) Mean Corpuscular Hemoglobin Concent 32 g/dL (31-37) Red Cell Distribution Width 20.3 % (11.5-14.5) Platelet Count 387 x10^3/uL (140-400) Neutrophils (%) (Auto) 76 % (31-73) Lymphocytes (%) (Auto) 14 % (24-48) Monocytes (%) (Auto) 10 % (0-9) Eosinophils (%) (Auto) 0 % (0-3) Basophils (%) (Auto) 0 % (0-3) Neutrophils # (Auto) 9.6 x10^3/uL (1.8-7.7) Lymphocytes # (Auto) 1.7 x10^3/uL (1.0-4.8) Monocytes # (Auto) 1.2 x10^3/uL (0.0-1.1) Eosinophils # (Auto) 0.0 x10^3/uL (0.0-0.7) Basophils # (Auto) 0.0 x10^3/uL (0.0-0.2) Sodium Level 139 mmol/L (136-145) Potassium Level 3.1 mmol/L (3.5-5.1) Chloride Level 97 mmol/L (98-107) Carbon Dioxide Level 27 mmol/L (21-32) Anion Gap 15 (6-14) Blood Urea Nitrogen 42 mg/dL (8-26) Creatinine 2.1 mg/dL (0.7-1.3) Estimated GFR (Cockcroft-Gault) 33.6 BUN/Creatinine Ratio 20 (6-20) Glucose Level 126 mg/dL (70-99) Calcium Level 8.9 mg/dL (8.5-10.1) Total Bilirubin 0.7 mg/dL (0.2-1.0) Aspartate Amino Transf (AST/SGOT) 30 U/L (15-37) Alanine Aminotransferase (ALT/SGPT) 27 U/L (16-63) Alkaline Phosphatase 192 U/L (46-116) Total Protein 7.1 g/dL (6.4-8.2) Albumin 2.5 g/dL (3.4-5.0) Albumin/Globulin Ratio 0.5 (1.0-1.7) Triglycerides Level 143 mg/dL (0-150) Glucose (Fingerstick) 116 mg/dL (70-99) 128 mg/dL (70-99) 152 mg/dL (70-99) Test 09/11/19 09:11 09/11/19 10:09 09/11/19 11:11 09/11/19 12:16 Glucose (Fingerstick) 155 mg/dL (70-99) 151 mg/dL (70-99) 163 mg/dL (70-99) 152 mg/dL (70-99) Test 09/11/19 13:43 09/11/19 17:04 09/11/19 21:08 09/12/19 03:57 Urine Random Creatinine 91.4 mg/dL (Not Establ.) Urine Random Total Protein 124.0 mg/dL (Not Establ.) Urine Protein/Creatinine Ratio 1357 mg/g (0-200) Glucose (Fingerstick) 271 mg/dL (70-99) 228 mg/dL (70-99) Sodium Level 139 mmol/L (136-145) Potassium Level 3.6 mmol/L (3.5-5.1) Chloride Level 100 mmol/L (98-107) Carbon Dioxide Level 24 mmol/L (21-32) Anion Gap 15 (6-14) Blood Urea Nitrogen 38 mg/dL (8-26) Creatinine 2.1 mg/dL (0.7-1.3) Estimated GFR (Cockcroft-Gault) 33.6 Glucose Level 206 mg/dL (70-99) Calcium Level 8.5 mg/dL (8.5-10.1) Lipase 479 U/L (73-393) Test 09/12/19 07:53 09/12/19 12:02 Glucose (Fingerstick) 242 mg/dL (70-99) 182 mg/dL (70-99) Laboratory Tests Test 09/11/19 17:04 09/11/19 21:08 09/12/19 03:57 09/12/19 07:53 Glucose (Fingerstick) 271 mg/dL (70-99) 228 mg/dL (70-99) 242 mg/dL (70-99) Sodium Level 139 mmol/L (136-145) Potassium Level 3.6 mmol/L (3.5-5.1) Chloride Level 100 mmol/L (98-107) Carbon Dioxide Level 24 mmol/L (21-32) Anion Gap 15 (6-14) Blood Urea Nitrogen 38 mg/dL (8-26) Creatinine 2.1 mg/dL (0.7-1.3) Estimated GFR (Cockcroft-Gault) 33.6 Glucose Level 206 mg/dL (70-99) Calcium Level 8.5 mg/dL (8.5-10.1) Lipase 479 U/L (73-393) Test 09/12/19 12:02 Glucose (Fingerstick) 182 mg/dL (70-99) Microbiology 09/10/19 Blood Culture - Preliminary, Resulted NO GROWTH AFTER 2 DAYS Medications Current Medications Sodium Chloride 1,000 ml @ 0 mls/hr 1X ONCE IV Last administered on 09/10/19at 11:06; Start 09/10/19 at 11:00; Stop 09/10/19 at 11:01; Status DC Ondansetron HCl (Zofran) 4 mg 1X ONCE IVP Last administered on 09/10/19at 11:06; Start 09/10/19 at 11:00; Stop 09/10/19 at 11:01; Status DC Sodium Chloride (Normal Saline Flush) 3 ml QSHIFT PRN IV AFTER MEDS AND BLOOD DRAWS Last administered on 09/10/19at 13:54; Start 09/10/19 at 13:15 Sodium Chloride 1,000 ml @ 100 mls/hr Q10H IV Last administered on 09/12/19at 01:47; Start 09/10/19 at 13:05 Ondansetron HCl (Zofran) 4 mg PRN Q4HRS PRN IV NAUSEA/VOMITING Last administered on 09/11/19at 23:41; Start 09/10/19 at 13:15 Acetaminophen (Tylenol Supp) 650 mg PRN Q4HRS PRN PA TEMP OVER 100.4F OR MILD PAIN; Start 09/10/19 at 13:15 Clonidine HCl (Catapres) 0.1 mg PRN Q6HRS PRN PO SBP>160 OR DBP>90; Start 09/10/19 at 13:15 Docusate Sodium (Colace) 100 mg PRN BID PRN PO HARD STOOLS; Start 09/10/19 at 13:15 Albuterol/ Ipratropium (Duoneb) 3 ml Q4HRS NEB ; Start 09/10/19 at 16:00; Stop 09/10/19 at 19:57; Status DC Enoxaparin Sodium (Lovenox 40mg Syringe) 40 mg Q24H SQ Last administered on 09/11/19at 16:02; Start 09/10/19 at 15:00 Piperacillin Sod/ Tazobactam Sod 3.375 gm/Sodium Chloride 50 ml @ 100 mls/hr Q6HRS IV Last administered on 09/12/19at 12:09; Start 09/10/19 at 16:00 Insulin Human Regular 100 unit/ Sodium Chloride 101 ml @ 0 mls/hr CONT PRN IV SEE I/O RECORD Last administered on 09/10/19at 21:21; Start 09/10/19 at 13:15 Dextrose (Dextrose 50%-Water Syringe) 12.5 gm PRN Q15MIN PRN IV LOW BLOOD SUGAR; Start 09/10/19 at 13:15; Stop 09/10/19 at 21:06; Status DC Dextrose (Iv Dextrose 5%) 250 ml PRN Q15MIN PRN IV LOW BLOOD SUGAR; Start 09/10/19 at 13:15 Insulin Human Regular 0 ml @ As Directed STK-MED ONCE IV ; Start 09/10/19 at 13:47; Stop 09/10/19 at 13:47; Status DC Pantoprazole Sodium (PROTONIX VIAL for IV PUSH) 40 mg DAILYAC IVP Last administered on 09/12/19at 07:56; Start 09/11/19 at 07:30; Stop 09/12/19 at 10:15; Status DC Prochlorperazine Edisylate (Compazine) 10 mg PRN Q6HRS PRN IV NAUSEA/VOMITING- 2ND CHOICE Last administered on 09/10/19at 15:53; Start 09/10/19 at 15:45 Hydralazine HCl (Apresoline Inj) 10 mg PRN Q4HRS PRN IVP ELEVATED BP, SEE COMMENTS Last administered on 09/11/19at 03:23; Start 09/10/19 at 15:45 Potassium Chloride/Water 100 ml @ 100 mls/hr Q1H IV Last administered on 09/10/19at 21:20; Start 09/10/19 at 18:00; Stop 09/10/19 at 20:59; Status DC Potassium Phosphate 13.6 mmol/Sodium Chloride 254.5333 ml @ 62.5 mls/hr 1X ONCE IV Last administered on 09/10/19at 18:24; Start 09/10/19 at 18:00; Stop 09/10/19 at 22:04; Status DC Albuterol Sulfate (Ventolin Neb Soln) 2.5 mg PRN Q4HRS PRN NEB WHEEZING; Start 09/10/19 at 20:00 Insulin Human Lispro (HumaLOG) 0-7 UNITS TIDWMEALS SQ Last administered on 09/11/19at 17:07; Start 09/11/19 at 08:00; Stop 09/11/19 at 18:15; Status DC Dextrose (Dextrose 50%-Water Syringe) 12.5 gm PRN Q15MIN PRN IV SEE COMMENTS; Start 09/10/19 at 21:15 Potassium Chloride/Water 100 ml @ 100 mls/hr Q1H IV Last administered on 09/11/19at 10:05; Start 09/11/19 at 07:00; Stop 09/11/19 at 08:59; Status DC Lidocaine (Lidoderm) 1 patch DAILY TP Last administered on 09/12/19 07:57; Start 09/11/19 at 10:00 Lisinopril (Prinivil) 5 mg PRN DAILY PRN PO hypertension Last administered on 09/11/19 12:14; Start 09/11/19 at 09:45 Oxycodone/ Acetaminophen (Percocet 7.5/ 325) 1 tab PRN Q6HRS PRN PO MODERATE TO SEVERE PAIN Last administered on 09/12/19 11:29; Start 09/11/19 at 09:45 Clonazepam (KlonoPIN) 1 mg BID PO Last administered on 09/12/19at 07:53; Start 09/11/19 at 10:00 Doxepin HCl (SINEquan) 300 mg QHS PO ; Start 09/11/19 at 21:00; Status Cancel Strawberry Carbonate (Lithobid) 300 mg BID PO Last administered on 09/12/19at 07:56; Start 09/11/19 at 10:00 Metformin HCl (Glucophage) 1,000 mg BIDWMEALS PO ; Start 09/11/19 at 10:00; Stop 09/11/19 at 12:45; Status DC Tizanidine HCl (Zanaflex) 1 mg PRN TID PRN PO MUSCLE SPASTICITY; Start 09/11/19 at 09:45 Linagliptin (Tradjenta) 5 mg DAILY PO Last administered on 09/12/19at 07:56; Start 09/11/19 at 10:00 Miscellaneous (Lidoderm Patch Removal) 1 ea QHS MC Last administered on 09/11/19at 21:00; Start 09/11/19 at 21:00 Non-Formulary Medication 2 ea QHS PO Last administered on 09/11/19at 21:10; Start 09/11/19 at 21:00 Insulin Human Lispro (HumaLOG) 0-7 UNITS QIDACHS SQ Last administered on 09/12/19at 07:58; Start 09/11/19 at 21:00 Pantoprazole Sodium (Protonix) 40 mg DAILYAC PO ; Start 09/13/19 at 07:30 Lactobacillus Rhamnosus (Culturelle) 1 cap BID PO ; Start 09/12/19 at 21:00 Active Scripts Active Reported Doxycycline Hyclate 100 Mg Capsule 100 Mg PO BID Clindamycin Hcl 300 Mg Capsule 600 Mg PO BID Lidocaine PATCH (Lidocaine) 1 Each Adh..patch 1 Each TP DAILY REMOVE AFTER 12 HOURS Lisinopril 5 Mg Tablet 1 Tab PO DAILY PRN Percocet 7.5-325 Mg Tablet (Oxycodone/Acetaminophen) 1 Each Tablet 1 Tab PO PRN Q6HRS PRN Clonazepam 1 Mg Tablet 1 Mg PO BID Strawberry Carbonate 300 Mg Tablet 1 Tab PO BID Zanaflex (Tizanidine Hcl) 4 Mg Capsule 1 Cap PO TID PRN Janumet 50-1,000 Mg Tablet (Sitagliptin Phos/Metformin Hcl) 1 Each Tablet 1 Tab PO BID Doxepin Hcl 50 Mg Capsule 300 Mg PO HS Vitals/I & O Vital Sign - Last 24 Hours 09/11/19 09/11/19 09/11/19 09/11/19 16:00 16:00 17:00 18:00 Pulse 102 102 102 Resp 20 B/P (MAP) 149/89 (109) 140/84 (102) 139/90 (106) Pulse Ox 97 97 97 O2 Delivery Room Air Room Air Room Air Room Air 09/11/19 09/11/19 09/11/19 09/11/19 19:45 20:25 23:36 23:51 Temp 98.2 97.7 98.2 97.7 Pulse 104 101 100 Resp 21 B/P (MAP) 145/77 (99) 144/74 (97) 140/98 (112) Pulse Ox 98 98 100 O2 Delivery Room Air Room Air Room Air Room Air 09/12/19 09/12/19 09/12/19 09/12/19 00:07 01:00 02:00 03:00 Pulse 100 96 98 Resp B/P (MAP) 147/87 (107) Pulse Ox 98 O2 Delivery Room Air Room Air Room Air 09/12/19 09/12/19 09/12/19 09/12/19 04:06 04:30 05:30 05:40 Temp 98.2 98.2 Pulse 98 98 Resp B/P (MAP) 145/84 (104) 150/90 (110) Pulse Ox 98 98 O2 Delivery Room Air Room Air Room Air Room Air 09/12/19 09/12/19 09/12/19 09/12/19 05:54 07:00 07:19 08:00 Pulse 98 95 Resp B/P (MAP) 158/86 (110) 152/85 (107) Pulse Ox 99 99 99 O2 Delivery Room Air Room Air Room Air Room Air 09/12/19 09/12/19 09/12/19 09/12/19 08:00 09:00 11:29 12:00 Temp 98.5 98.2 98.5 98.2 Pulse 95 99 96 Resp B/P (MAP) 145/82 (103) 150/79 (102) 159/85 (109) Pulse Ox 99 96 93 99 O2 Delivery Room Air Room Air Room Air Room Air O2 Flow Rate 3.0 09/12/19 12:29 Resp 18 Pulse Ox 98 O2 Delivery Room Air Intake and Output 09/11/19 09/11/19 09/12/19 15:00 23:00 07:00 Intake Total 150 ml Output Total 300 ml Balance -150 ml Nutrition Consultation Dietary Evaluation: Recommendations by RD: Dietary education by RD, Increase Calorie Intake, Protein supplementation Comments: Advance diet per surgery, goal diet caridac/ADA w/supplements per pt preference If unable to advance diet within 48-72 hrs, recommend nutrition support (dobhoff for TFs or PPN) Expected Outcomes/Goals: diet advancement Interpretation of weight loss: >7.5% in 3 months Malnutrition Findings: Food and Nutrition Intake (Sev: <50% est energy req 5days Weight Status: Obese TOMMY THOMPSON MD Sep 12, 2019 15:04
[2019-09-12] MEDS: ENOXAPARIN 40 MG/0.4 ML SYRINGE. SQ SCH (15:46)
[2019-09-12] MEDS: DOXEPIN 150 MG PO SCH (20:47)
[2019-09-12] MEDS: PATCH REMOVAL. MC SCH (20:48)
[2019-09-12] MEDS: LACTOBACILLUS RHAMNOSUS GG 1 CAPSULE. PO SCH (20:48)
[2019-09-12] MEDS: hydrALAZINE 20 MG/ML VIAL. IVP PRN (23:07)
[2019-09-13] MEDS: IV NORMAL SALINE 1000ML BAG 1,000 ML IV SCH ×2 (01:05→12:16)
[2019-09-13 03:00] VITALS: BP 146/92
[2019-09-13 04:33] LABS: BASO % 0 % (0-3); EOS % 0 % (0-3); HEMATOCRIT 31.5 % (39.0-53.0); HEMOGLOBIN 9.9 g/dL (13.0-17.5); LYMPH # 0.7 x10^3/uL (1.0-4.8); LYMPH % 8 % (24-48); MEAN CORPUSCULAR HEMOGLOBIN 22 pg (25-35); MEAN CORPUSCULAR HGB CONC 31 g/dL (31-37); MEAN CORPUSCULAR VOLUME 71 fL (79-100); MONO # 0.7 x10^3/uL (0.0-1.1); MONO % 8 % (0-9); NEUT # 6.6 x10^3/uL (1.8-7.7); NEUT % 83 % (31-73); PLATELET COUNT 278 x10^3/uL (140-400); RED BLOOD COUNT 4.47 x10^6/uL (4.30-5.70); RED CELL DISTRIBUTION WIDTH 20.1 % (11.5-14.5); WHITE BLOOD COUNT 7.9 x10^3/uL (4.0-11.0)
[2019-09-13 04:46] LABS: CALCIUM 8.8 mg/dL (8.5-10.1); CREATININE 1.6 mg/dL (0.7-1.3); POTASSIUM 3.6 mmol/L (3.5-5.1)
[2019-09-13] MEDS: PIPERACILLIN/TAZOBACTAM 3.375 GM in IV NORMAL SALINE 50ML 50 ML IV SCH ×3 (05:34→17:29)
[2019-09-13 07:00] VITALS: BP 162/103
[2019-09-13] MEDS: INSULIN LISPRO 300 UNITS/3 ML VIAL. SQ SCH ×4 (07:30→21:15)
[2019-09-13] MEDS: LIDOCAINE (700MG/PATCH) PATCH. TP SCH (09:00)
[2019-09-13] MEDS: LINAGLIPTIN 5 MG TABLET PO SCH (09:04)
[2019-09-13] MEDS: PANTOPRAZOLE 40 MG TABLET.DR. PO SCH (09:04)
[2019-09-13] MEDS: hydrALAZINE 20 MG/ML VIAL. IVP PRN (09:05)
--- NOTE | 2019-09-13 09:15 | NUR ---
SW following. Discussed with RN, pt possibly having a lap itzel today. SW will continue to follow.
--- NOTE | 2019-09-13 09:26 | PDOC ---
Infectious Disease Note Subjective Subjective Feeling better. No nausea vomiting diarrhea or abdominal pain GUEVARA WATERMAN Denies any knee pain or fever Vital Sign Vital Signs Vital Signs Date Time Temp Pulse Resp B/P (MAP) Pulse Ox O2 Delivery O2 Flow Rate FiO2 09/13/19 09:05 100 162/103 09/13/19 07:00 97.8 18 96 Room Air 97.8 09/12/19 11:29 3.0 Physical Exam PHYSICAL EXAM GENERAL: Alert, oriented gentleman, not in distress. VITAL SIGNS: Stable, afebrile. HEENT: NAD. NECK: Supple, no JVP, no lymphadenopathy. LUNGS: Clear. HEART: S1, S2 regular. ABDOMEN: Benign. EXTREMITIES: No edema, cyanosis. SKIN: Unremarkable except left knee, there is a small wound on to the knee which appears clean, healthy, red granulation tissue and no drainage. NEUROLOGIC: The patient is alert, awake and appropriate. No focal neurologic deficit. Labs Lab Laboratory Tests Test 09/12/19 12:02 09/12/19 18:07 09/13/19 03:55 09/13/19 07:11 Glucose (Fingerstick) 182 mg/dL (70-99) 191 mg/dL (70-99) 219 mg/dL (70-99) White Blood Count 7.9 x10^3/uL (4.0-11.0) Red Blood Count 4.47 x10^6/uL (4.30-5.70) Hemoglobin 9.9 g/dL (13.0-17.5) Hematocrit 31.5 % (39.0-53.0) Mean Corpuscular Volume 71 fL (79-100) Mean Corpuscular Hemoglobin 22 pg (25-35) Mean Corpuscular Hemoglobin Concent 31 g/dL (31-37) Red Cell Distribution Width 20.1 % (11.5-14.5) Platelet Count 278 x10^3/uL (140-400) Neutrophils (%) (Auto) 83 % (31-73) Lymphocytes (%) (Auto) 8 % (24-48) Monocytes (%) (Auto) 8 % (0-9) Eosinophils (%) (Auto) 0 % (0-3) Basophils (%) (Auto) 0 % (0-3) Neutrophils # (Auto) 6.6 x10^3/uL (1.8-7.7) Lymphocytes # (Auto) 0.7 x10^3/uL (1.0-4.8) Monocytes # (Auto) 0.7 x10^3/uL (0.0-1.1) Eosinophils # (Auto) 0.0 x10^3/uL (0.0-0.7) Basophils # (Auto) 0.0 x10^3/uL (0.0-0.2) Sodium Level 139 mmol/L (136-145) Potassium Level 3.6 mmol/L (3.5-5.1) Chloride Level 102 mmol/L (98-107) Carbon Dioxide Level 21 mmol/L (21-32) Anion Gap 16 (6-14) Blood Urea Nitrogen 23 mg/dL (8-26) Creatinine 1.6 mg/dL (0.7-1.3) Estimated GFR (Cockcroft-Gault) 46.0 Glucose Level 270 mg/dL (70-99) Calcium Level 8.8 mg/dL (8.5-10.1) Lipase 564 U/L (73-393) Micro Microbiology 09/10/19 Blood Culture - Preliminary, Resulted NO GROWTH AFTER 1 DAY Objective Assessment IMPRESSION: 1. Nausea, vomiting, and pancreatitis, unclear etiology. May have been gallstone or CBD stone causing blockage. I have asked for triglyceride levels. The patient does not drink alcohol. 2. Left total knee arthroplasty infection with the last culture only positive was from Dr. Avila's office, which was sent into some outside lab and has coagulase negative Staphylococcus, which was oxacillin resistant and tetracycline resistant. Hence, the patient is on clindamycin. Unfortunately, not a good drug but not much options. 3. Chest x-ray is normal, but the CT showing possible infiltrate, may have aspirated. 4. Diabetes. 5. Hypertension. 6. Bipolar disorder. 7. Renal insufficiency. Plan Plan of Care Continue supportive care. Continue local wound care on the knee. And now patient can be switched over to p.o. clindamycin Patient is n.p.o. for now and going for gallbladder surgery RUTH DOUGLASS MD Sep 13, 2019 09:26
--- NOTE | 2019-09-13 10:12 | PDOC ---
PROGRESS NOTES Chief Complaint Chief Complaint IMPRESSION 1 Peripancreatic inflammatory changes compatible with acute pancreatitis. much of the gallbladder lumen is filled with gallstones and though no stone is definitively seen within the common bile duct, gallstone pancreatitis remains a consideration. 2. Ill-defined infiltrates involving the visualized left lower lung more so than the right. Sequela of aspiration or an atypical pneumonia may have this appearance. 3. mineralized nodule off the medial pole of the left kidney measuring around 1cm //calcified cyst would be the most likely etiology 4. hyperglycemia, uncontrolled nonketotic // diabetes 5. morbid obesity 6. intractable nausea, vomiting 7. JAQUAN 8. Pseudohyponatremia History of Present Illness History of Present Illness 09/13/2019 Patient seen and examined Chart reviewed Lipase is down into the 400s from the 700s 09/11/2019 Patient seen and examined His mother is here helping (MARCUS Johnson) Discussed with RN Chart reviewed Called Dr. Isidro We have all agreed to put the patient on a clear liquid diet so he can take his home meds especially his psych meds Glucose is doing better at 120 Lipase was only 700 Patient clinically is doing okay but little depressed We are also going to consult infectious disease and orthopedics (he has a chronic knee infection and recent knee surgery) GI nurse practitioner Amelia just arrived to examine the patient as well Vitals Vitals Vital Signs Date Time Temp Pulse Resp B/P (MAP) Pulse Ox O2 Delivery O2 Flow Rate FiO2 09/13/19 09:05 100 162/103 09/13/19 07:00 97.8 18 96 Room Air 97.8 09/12/19 11:29 3.0 Physical Exam Physical Exam GENERAL: Alert, oriented gentleman, not in distress. VITAL SIGNS: Stable, afebrile. HEENT: NAD. NECK: Supple, no JVP, no lymphadenopathy. LUNGS: Clear. HEART: S1, S2 regular. ABDOMEN: Benign. EXTREMITIES: No edema, cyanosis. SKIN: Unremarkable except left knee, there is a small wound on to the knee which appears clean, healthy, red granulation tissue and no drainage. NEUROLOGIC: The patient is alert, awake and appropriate. No focal neurologic deficit. General: Alert, Oriented X3 Heart: Regular rate Lungs: Clear Abdomen: Soft, No tenderness Extremities: No clubbing, No cyanosis Skin: No rashes Labs LABS BRIANNE HAYNES MD,JAMAL Solorzano MD ORDERED: BCULT Procedure Result BLOOD CULTURE Preliminary NO GROWTH AFTER 2 DAYS Laboratory Tests Test 09/12/19 12:02 09/12/19 18:07 09/13/19 03:55 09/13/19 07:11 Glucose (Fingerstick) 182 mg/dL (70-99) 191 mg/dL (70-99) 219 mg/dL (70-99) White Blood Count 7.9 x10^3/uL (4.0-11.0) Red Blood Count 4.47 x10^6/uL (4.30-5.70) Hemoglobin 9.9 g/dL (13.0-17.5) Hematocrit 31.5 % (39.0-53.0) Mean Corpuscular Volume 71 fL (79-100) Mean Corpuscular Hemoglobin 22 pg (25-35) Mean Corpuscular Hemoglobin Concent 31 g/dL (31-37) Red Cell Distribution Width 20.1 % (11.5-14.5) Platelet Count 278 x10^3/uL (140-400) Neutrophils (%) (Auto) 83 % (31-73) Lymphocytes (%) (Auto) 8 % (24-48) Monocytes (%) (Auto) 8 % (0-9) Eosinophils (%) (Auto) 0 % (0-3) Basophils (%) (Auto) 0 % (0-3) Neutrophils # (Auto) 6.6 x10^3/uL (1.8-7.7) Lymphocytes # (Auto) 0.7 x10^3/uL (1.0-4.8) Monocytes # (Auto) 0.7 x10^3/uL (0.0-1.1) Eosinophils # (Auto) 0.0 x10^3/uL (0.0-0.7) Basophils # (Auto) 0.0 x10^3/uL (0.0-0.2) Sodium Level 139 mmol/L (136-145) Potassium Level 3.6 mmol/L (3.5-5.1) Chloride Level 102 mmol/L (98-107) Carbon Dioxide Level 21 mmol/L (21-32) Anion Gap 16 (6-14) Blood Urea Nitrogen 23 mg/dL (8-26) Creatinine 1.6 mg/dL (0.7-1.3) Estimated GFR (Cockcroft-Gault) 46.0 Glucose Level 270 mg/dL (70-99) Calcium Level 8.8 mg/dL (8.5-10.1) Lipase 564 U/L (73-393) Assessment and Plan Assessmemt and Plan Problems Medical Problems: (1) Acute kidney injury Status: Acute (2) Dehydration Status: Acute Comment Review of Relevant I have reviewed the following items blaze (where applicable) has been applied. Labs Laboratory Tests Test 09/11/19 11:11 09/11/19 12:16 09/11/19 13:43 09/11/19 17:04 Glucose (Fingerstick) 163 mg/dL (70-99) 152 mg/dL (70-99) 271 mg/dL (70-99) Urine Random Creatinine 91.4 mg/dL (Not Establ.) Urine Random Total Protein 124.0 mg/dL (Not Establ.) Urine Protein/Creatinine Ratio 1357 mg/g (0-200) Test 09/11/19 20:47 09/11/19 21:08 09/12/19 03:57 09/12/19 07:53 Coronavirus (COVID-19)(PCR) Not detected (NOT DETECT.) Glucose (Fingerstick) 228 mg/dL (70-99) 242 mg/dL (70-99) Sodium Level 139 mmol/L (136-145) Potassium Level 3.6 mmol/L (3.5-5.1) Chloride Level 100 mmol/L (98-107) Carbon Dioxide Level 24 mmol/L (21-32) Anion Gap 15 (6-14) Blood Urea Nitrogen 38 mg/dL (8-26) Creatinine 2.1 mg/dL (0.7-1.3) Estimated GFR (Cockcroft-Gault) 33.6 Glucose Level 206 mg/dL (70-99) Calcium Level 8.5 mg/dL (8.5-10.1) Lipase 479 U/L (73-393) Test 09/12/19 12:02 09/12/19 18:07 09/13/19 03:55 09/13/19 07:11 Glucose (Fingerstick) 182 mg/dL (70-99) 191 mg/dL (70-99) 219 mg/dL (70-99) White Blood Count 7.9 x10^3/uL (4.0-11.0) Red Blood Count 4.47 x10^6/uL (4.30-5.70) Hemoglobin 9.9 g/dL (13.0-17.5) Hematocrit 31.5 % (39.0-53.0) Mean Corpuscular Volume 71 fL (79-100) Mean Corpuscular Hemoglobin 22 pg (25-35) Mean Corpuscular Hemoglobin Concent 31 g/dL (31-37) Red Cell Distribution Width 20.1 % (11.5-14.5) Platelet Count 278 x10^3/uL (140-400) Neutrophils (%) (Auto) 83 % (31-73) Lymphocytes (%) (Auto) 8 % (24-48) Monocytes (%) (Auto) 8 % (0-9) Eosinophils (%) (Auto) 0 % (0-3) Basophils (%) (Auto) 0 % (0-3) Neutrophils # (Auto) 6.6 x10^3/uL (1.8-7.7) Lymphocytes # (Auto) 0.7 x10^3/uL (1.0-4.8) Monocytes # (Auto) 0.7 x10^3/uL (0.0-1.1) Eosinophils # (Auto) 0.0 x10^3/uL (0.0-0.7) Basophils # (Auto) 0.0 x10^3/uL (0.0-0.2) Sodium Level 139 mmol/L (136-145) Potassium Level 3.6 mmol/L (3.5-5.1) Chloride Level 102 mmol/L (98-107) Carbon Dioxide Level 21 mmol/L (21-32) Anion Gap 16 (6-14) Blood Urea Nitrogen 23 mg/dL (8-26) Creatinine 1.6 mg/dL (0.7-1.3) Estimated GFR (Cockcroft-Gault) 46.0 Glucose Level 270 mg/dL (70-99) Calcium Level 8.8 mg/dL (8.5-10.1) Lipase 564 U/L (73-393) Laboratory Tests Test 09/12/19 12:02 09/12/19 18:07 09/13/19 03:55 09/13/19 07:11 Glucose (Fingerstick) 182 mg/dL (70-99) 191 mg/dL (70-99) 219 mg/dL (70-99) White Blood Count 7.9 x10^3/uL (4.0-11.0) Red Blood Count 4.47 x10^6/uL (4.30-5.70) Hemoglobin 9.9 g/dL (13.0-17.5) Hematocrit 31.5 % (39.0-53.0) Mean Corpuscular Volume 71 fL (79-100) Mean Corpuscular Hemoglobin 22 pg (25-35) Mean Corpuscular Hemoglobin Concent 31 g/dL (31-37) Red Cell Distribution Width 20.1 % (11.5-14.5) Platelet Count 278 x10^3/uL (140-400) Neutrophils (%) (Auto) 83 % (31-73) Lymphocytes (%) (Auto) 8 % (24-48) Monocytes (%) (Auto) 8 % (0-9) Eosinophils (%) (Auto) 0 % (0-3) Basophils (%) (Auto) 0 % (0-3) Neutrophils # (Auto) 6.6 x10^3/uL (1.8-7.7) Lymphocytes # (Auto) 0.7 x10^3/uL (1.0-4.8) Monocytes # (Auto) 0.7 x10^3/uL (0.0-1.1) Eosinophils # (Auto) 0.0 x10^3/uL (0.0-0.7) Basophils # (Auto) 0.0 x10^3/uL (0.0-0.2) Sodium Level 139 mmol/L (136-145) Potassium Level 3.6 mmol/L (3.5-5.1) Chloride Level 102 mmol/L (98-107) Carbon Dioxide Level 21 mmol/L (21-32) Anion Gap 16 (6-14) Blood Urea Nitrogen 23 mg/dL (8-26) Creatinine 1.6 mg/dL (0.7-1.3) Estimated GFR (Cockcroft-Gault) 46.0 Glucose Level 270 mg/dL (70-99) Calcium Level 8.8 mg/dL (8.5-10.1) Lipase 564 U/L (73-393) Microbiology 09/10/19 Blood Culture - Preliminary, Resulted NO GROWTH AFTER 2 DAYS Medications Current Medications Sodium Chloride 1,000 ml @ 0 mls/hr 1X ONCE IV Last administered on 09/10/19at 11:06; Start 09/10/19 at 11:00; Stop 09/10/19 at 11:01; Status DC Ondansetron HCl (Zofran) 4 mg 1X ONCE IVP Last administered on 09/10/19at 11:06; Start 09/10/19 at 11:00; Stop 09/10/19 at 11:01; Status DC Sodium Chloride (Normal Saline Flush) 3 ml QSHIFT PRN IV AFTER MEDS AND BLOOD DRAWS Last administered on 09/10/19at 13:54; Start 09/10/19 at 13:15 Sodium Chloride 1,000 ml @ 100 mls/hr Q10H IV Last administered on 09/13/19at 01:05; Start 09/10/19 at 13:05 Ondansetron HCl (Zofran) 4 mg PRN Q4HRS PRN IV NAUSEA/VOMITING Last administ ered on 09/11/19at 23:41; Start 09/10/19 at 13:15 Acetaminophen (Tylenol Supp) 650 mg PRN Q4HRS PRN DE TEMP OVER 100.4F OR MILD PAIN; Start 09/10/19 at 13:15 Clonidine HCl (Catapres) 0.1 mg PRN Q6HRS PRN PO SBP>160 OR DBP>90; Start 09/10/19 at 13:15 Docusate Sodium (Colace) 100 mg PRN BID PRN PO HARD STOOLS; Start 09/10/19 at 13:15 Albuterol/ Ipratropium (Duoneb) 3 ml Q4HRS NEB ; Start 09/10/19 at 16:00; Stop 09/10/19 at 19:57; Status DC Enoxaparin Sodium (Lovenox 40mg Syringe) 40 mg Q24H SQ Last administered on 09/12/19at 15:46; Start 09/10/19 at 15:00 Piperacillin Sod/ Tazobactam Sod 3.375 gm/Sodium Chloride 50 ml @ 100 mls/hr Q6HRS IV Last administered on 09/13/19at 05:34; Start 09/10/19 at 16:00 Insulin Human Regular 100 unit/ Sodium Chloride 101 ml @ 0 mls/hr CONT PRN IV SEE I/O RECORD Last administered on 09/10/19at 21:21; Start 09/10/19 at 13:15 Dextrose (Dextrose 50%-Water Syringe) 12.5 gm PRN Q15MIN PRN IV LOW BLOOD SUGAR; Start 09/10/19 at 13:15; Stop 09/10/19 at 21:06; Status DC Dextrose (Iv Dextrose 5%) 250 ml PRN Q15MIN PRN IV LOW BLOOD SUGAR; Start 09/10/19 at 13:15 Insulin Human Regular 0 ml @ As Directed STK-MED ONCE IV ; Start 09/10/19 at 13:47; Stop 09/10/19 at 13:47; Status DC Pantoprazole Sodium (PROTONIX VIAL for IV PUSH) 40 mg DAILYAC IVP Last adm inistered on 09/12/19at 07:56; Start 09/11/19 at 07:30; Stop 09/12/19 at 10:15; Status DC Prochlorperazine Edisylate (Compazine) 10 mg PRN Q6HRS PRN IV NAUSEA/VOMITING- 2ND CHOICE Last administered on 09/10/19at 15:53; Start 09/10/19 at 15:45 Hydralazine HCl (Apresoline Inj) 10 mg PRN Q4HRS PRN IVP ELEVATED BP, SEE COMMENTS Last administered on 09/13/19at 09:05; Start 09/10/19 at 15:45 Potassium Chloride/Water 100 ml @ 100 mls/hr Q1H IV Last administered on 09/10/19at 21:20; Start 09/10/19 at 18:00; Stop 09/10/19 at 20:59; Status DC Potassium Phosphate 13.6 mmol/Sodium Chloride 254.5333 ml @ 62.5 mls/hr 1X ONCE IV Last administered on 09/10/19at 18:24; Start 09/10/19 at 18:00; Stop 09/10/19 at 22:04; Status DC Albuterol Sulfate (Ventolin Neb Soln) 2.5 mg PRN Q4HRS PRN NEB WHEEZING; Start 09/10/19 at 20:00 Insulin Human Lispro (HumaLOG) 0-7 UNITS TIDWMEALS SQ Last administered on 09/11/19at 17:07; Start 09/11/19 at 08:00; Stop 09/11/19 at 18:15; Status DC Dextrose (Dextrose 50%-Water Syringe) 12.5 gm PRN Q15MIN PRN IV SEE COMMENTS; Start 09/10/19 at 21:15 Potassium Chloride/Water 100 ml @ 100 mls/hr Q1H IV Last administered on 09/11/19at 10:05; Start 09/11/19 at 07:00; Stop 09/11/19 at 08:59; Status DC Lidocaine (Lidoderm) 1 patch DAILY TP Last administered on 09/12/19at 07:57; Start 09/11/19 at 10:00 Lisinopril (Prinivil) 5 mg PRN DAILY PRN PO hypertension Last administered on 09/11/19at 12:14; Start 09/11/19 at 09:45 Oxycodone/ Acetaminophen (Percocet 7.5/ 325) 1 tab PRN Q6HRS PRN PO MODERATE TO SEVERE PAIN Last administered on 09/12/19 11:29; Start 09/11/19 at 09:45 Clonazepam (KlonoPIN) 1 mg BID PO Last administered on 09/12/19 20:48; Start 09/11/19 at 10:00 Doxepin HCl (SINEquan) 300 mg QHS PO ; Start 09/11/19 at 21:00; Status Cancel [place] Carbonate (Lithobid) 300 mg BID PO Last administered on 09/12/19 20:48; Start 09/11/19 at 10:00 Metformin HCl (Glucophage) 1,000 mg BIDWMEALS PO ; Start 09/11/19 at 10:00; Stop 09/11/19 at 12:45; Status DC Tizanidine HCl (Zanaflex) 1 mg PRN TID PRN PO MUSCLE SPASTICITY; Start 09/11/19 at 09:45 Linagliptin (Tradjenta) 5 mg DAILY PO Last administered on 09/13/19 09:04; Start 09/11/19 at 10:00 Miscellaneous (Lidoderm Patch Removal) 1 ea QHS MC Last administered on 09/12/19 20:48; Start 09/11/19 at 21:00 Non-Formulary Medication 2 ea QHS PO Last administered on 09/12/19 20:47; Start 09/11/19 at 21:00 Insulin Human Lispro (HumaLOG) 0-7 UNITS QIDACHS SQ Last administered on 09/12/19 07:58; Start 09/11/19 at 21:00 Pantoprazole Sodium (Protonix) 40 mg DAILYAC PO Last administered on 09/13/19 09:04; Start 09/13/19 at 07:30 Lactobacillus Rhamnosus (Culturelle) 1 cap BID PO Last administered on 09/12/19 20:48; Start 09/12/19 at 21:00 Active Scripts Active Reported Doxycycline Hyclate 100 Mg Capsule 100 Mg PO BID Clindamycin Hcl 300 Mg Capsule 600 Mg PO BID Lidocaine PATCH (Lidocaine) 1 Each Adh..patch 1 Each TP DAILY REMOVE AFTER 12 HOURS Lisinopril 5 Mg Tablet 1 Tab PO DAILY PRN Percocet 7.5-325 Mg Tablet (Oxycodone/Acetaminophen) 1 Each Tablet 1 Tab PO PRN Q6HRS PRN Clonazepam 1 Mg Tablet 1 Mg PO BID [place] Carbonate 300 Mg Tablet 1 Tab PO BID Zanaflex (Tizanidine Hcl) 4 Mg Capsule 1 Cap PO TID PRN Janumet 50-1,000 Mg Tablet (Sitagliptin Phos/Metformin Hcl) 1 Each Tablet 1 Tab PO BID Doxepin Hcl 50 Mg Capsule 300 Mg PO HS Vitals/I & O Vital Sign - Last 24 Hours 09/12/19 09/12/19 09/12/19 09/12/19 11:29 12:00 12:29 15:00 Temp 98.2 97.8 98.2 97.8 Pulse 96 94 Resp 19 B/P (MAP) 159/85 (109) 157/68 (97) Pulse Ox 93 99 98 96 O2 Delivery Room Air Room Air Room Air Room Air O2 Flow Rate 3.0 09/12/19 09/12/19 09/12/19 09/12/19 16:12 19:00 23:00 23:07 Temp 98.0 98.9 98.0 98.9 Pulse 102 101 102 Resp 18 18 B/P (MAP) 171/95 (120) 171/104 (126) 171/95 Pulse Ox 93 94 O2 Delivery Room Air Room Air Room Air 09/13/19 09/13/19 09/13/19 03:00 07:00 09:05 Temp 98.5 97.8 98.5 97.8 Pulse 104 100 100 Resp 18 18 B/P (MAP) 146/92 (110) 162/103 (122) 162/103 Pulse Ox 95 96 O2 Delivery Room Air Room Air Intake and Output 09/12/19 09/12/19 09/13/19 14:59 22:59 06:59 Intake Total 50 ml 0 ml Output Total 0 ml Balance 50 ml 0 ml Nutrition Consultation Dietary Evaluation: Recommendations by RD: Dietary education by RD, Increase Calorie Intake, Protein supplementation Comments: Advance diet per surgery, goal diet caridac/ADA w/supplements per pt preference If unable to advance diet within 48-72 hrs, recommend nutrition support (dobhoff for TFs or PPN) Expected Outcomes/Goals: diet advancement Interpretation of weight loss: >7.5% in 3 months Malnutrition Findings: Food and Nutrition Intake (Sev: <50% est energy req 5days Weight Status: Obese JAMAL MORRIS MD Sep 13, 2019 10:12
--- NOTE | 2019-09-13 10:27 | PDOC ---
SUBJECTIVE ROS No complaints, states feeling hungry, NPO for possible surgery OBJECTIVE Vital Signs Vital Signs Date Time Temp Pulse Resp B/P (MAP) Pulse Ox O2 Delivery O2 Flow Rate FiO2 09/13/19 09:05 100 162/103 09/13/19 07:00 97.8 18 96 Room Air 97.8 09/12/19 11:29 3.0 I & 0 Intake and Output 09/13/19 07:00 Intake Total 50 ml Output Total 0 ml Balance 50 ml Intake Oral 50 ml Output Urine Total 0 ml # Voids 1 PHYSICAL EXAM Physical Exam General: NAD HEENT: OM moist Neck Supple Lungs: Clear to auscultation, Non labored Heart: RRR Abdomen: soft Extremities: No cyanosis, No LE edema Neuro: Grossly normal Psych/Mental Status: Mental status NL, Mood NL No barr, No SP or CVA tenderness DIAGNOSIS/ASSESSMENT Assessment & Plan JAQUAN - ATN 2/2 dehydration- Intractable N/V Vomiting Good UOP, UA -no e/o GN , improving renal function Supportive care, Strict I/O, avoid nephrotoxins HypoKalemia- resolved Renal Cyst - Lt kidney per CT report - Partially mineralized nodule off the medial pole of the left kidney measuring around 1 cm. A calcified cyst would be the most likely etiology Consider 3-6 month ultra sound follow-up to assess for any change. Punctate nonobstructing intrarenal stone at the upper pole of the right kidney Acute pancreatitis - Non alcoholic, GI following Cholelithiasis - gallbladder lumen is filled with gallstones on CT , GS plannin g surgery DM - Uncontrolled , No Diabetic Retinopathy per history UA with Overt proteinuria, suspect 2/2 DM , On Low dose Lisinopril per home meds , Pr/Cr Non nephrotic 1.3 gms HTN - antihypertensives Anemia- Hgb dropped since presentation , per primary Hx of Bipolar- Per Home list on [place], levels <0.2 COMMENT/RELEVANT DATA Meds Current Medications Medications (Trade) Dose Ordered Sig/Edilma Start Time Stop Time Status Last Admin Dose Admin Acetaminophen (Tylenol Supp) 650 mg PRN Q4HRS PRN 09/10/19 13:15 Albuterol Sulfate (Ventolin Neb Soln) 2.5 mg PRN Q4HRS PRN 09/10/19 20:00 Albuterol/ Ipratropium (Duoneb) 3 ml Q4HRS 09/10/19 16:00 09/10/19 19:57 DC Clonazepam (KlonoPIN) 1 mg BID 09/11/19 10:00 09/12/19 20:48 1 MG Clonidine HCl (Catapres) 0.1 mg PRN Q6HRS PRN 09/10/19 13:15 Dextrose (Dextrose 50%-Water Syringe) 12.5 gm PRN Q15MIN PRN 09/10/19 21:15 Dextrose (Iv Dextrose 5%) 250 ml PRN Q15MIN PRN 09/10/19 13:15 Docusate Sodium (Colace) 100 mg PRN BID PRN 09/10/19 13:15 Doxepin HCl (SINEquan) 300 mg QHS 09/11/19 21:00 Cancel Enoxaparin Sodium (Lovenox 40mg Syringe) 40 mg Q24H 09/10/19 15:00 09/12/19 15:46 40 MG Hydralazine HCl (Apresoline Inj) 10 mg PRN Q4HRS PRN 09/10/19 15:45 09/13/19 09:05 10 MG Insulin Human Lispro (HumaLOG) 0-7 UNITS QIDACHS 09/11/19 21:00 09/12/19 07:58 2 UNITS Insulin Human Regular 0 ml @ As Directed STK-MED ONCE 09/10/19 13:47 09/10/19 13:47 DC Insulin Human Regular 100 unit/ Sodium Chloride 101 ml @ 0 mls/hr CONT PRN 09/10/19 13:15 09/10/19 21:21 5.4 MLS/HR Lactobacillus Rhamnosus (Culturelle) 1 cap BID 09/12/19 21:00 09/12/19 20:48 1 CAP Lidocaine (Lidoderm) 1 patch DAILY 09/11/19 10:00 09/12/19 07:57 1 PATCH Linagliptin (Tradjenta) 5 mg DAILY 09/11/19 10:00 09/13/19 09:04 5 MG Lisinopril (Prinivil) 5 mg PRN DAILY PRN 09/11/19 09:45 09/11/19 12:14 5 MG [place] Carbonate (Lithobid) 300 mg BID 09/11/19 10:00 09/12/19 20:48 300 MG Metformin HCl (Glucophage) 1,000 mg BIDWMEALS 09/11/19 10:00 09/11/19 12:45 DC Miscellaneous (Lidoderm Patch Removal) 1 ea QHS 09/11/19 21:00 09/12/19 20:48 1 EA Non-Formulary Medication 2 ea QHS 09/11/19 21:00 09/12/19 20:47 2 EA Ondansetron HCl (Zofran) 4 mg PRN Q4HRS PRN 09/10/19 13:15 09/11/19 23:41 4 MG Oxycodone/ Acetaminophen (Percocet 7.5/ 325) 1 tab PRN Q6HRS PRN 09/11/19 09:45 09/12/19 11:29 1 TAB Pantoprazole Sodium (PROTONIX VIAL for IV PUSH) 40 mg DAILYAC 09/11/19 07:30 09/12/19 10:15 DC 09/12/19 07:56 40 MG Pantoprazole Sodium (Protonix) 40 mg DAILYAC 09/13/19 07:30 09/13/19 09:04 40 MG Piperacillin Sod/ Tazobactam Sod 3.375 gm/Sodium Chloride 50 ml @ 100 mls/hr Q6HRS 09/10/19 16:00 09/13/19 05:34 100 MLS/HR Potassium Chloride/Water 100 ml @ 100 mls/hr Q1H 09/11/19 07:00 09/11/19 08:59 DC 09/11/19 10:05 100 MLS/HR Potassium Phosphate 13.6 mmol/Sodium Chloride 254.5333 ml @ 62.5 mls/hr 1X ONCE 09/10/19 18:00 09/10/19 22:04 DC 09/10/19 18:24 62.5 MLS/HR Prochlorperazine Edisylate (Compazine) 10 mg PRN Q6HRS PRN 09/10/19 15:45 09/10/19 15:53 10 MG Sodium Chloride 1,000 ml @ 100 mls/hr Q10H 09/10/19 13:05 09/13/19 01:05 100 MLS/HR Sodium Chloride (Normal Saline Flush) 3 ml QSHIFT PRN 09/10/19 13:15 09/10/19 13:54 3 ML Tizanidine HCl (Zanaflex) 1 mg PRN TID PRN 09/11/19 09:45 Lab Laboratory Tests Test 09/12/19 12:02 09/12/19 18:07 09/13/19 03:55 09/13/19 07:11 Glucose (Fingerstick) 182 mg/dL (70-99) 191 mg/dL (70-99) 219 mg/dL (70-99) White Blood Count 7.9 x10^3/uL (4.0-11.0) Red Blood Count 4.47 x10^6/uL (4.30-5.70) Hemoglobin 9.9 g/dL (13.0-17.5) Hematocrit 31.5 % (39.0-53.0) Mean Corpuscular Volume 71 fL (79-100) Mean Corpuscular Hemoglobin 22 pg (25-35) Mean Corpuscular Hemoglobin Concent 31 g/dL (31-37) Red Cell Distribution Width 20.1 % (11.5-14.5) Platelet Count 278 x10^3/uL (140-400) Neutrophils (%) (Auto) 83 % (31-73) Lymphocytes (%) (Auto) 8 % (24-48) Monocytes (%) (Auto) 8 % (0-9) Eosinophils (%) (Auto) 0 % (0-3) Basophils (%) (Auto) 0 % (0-3) Neutrophils # (Auto) 6.6 x10^3/uL (1.8-7.7) Lymphocytes # (Auto) 0.7 x10^3/uL (1.0-4.8) Monocytes # (Auto) 0.7 x10^3/uL (0.0-1.1) Eosinophils # (Auto) 0.0 x10^3/uL (0.0-0.7) Basophils # (Auto) 0.0 x10^3/uL (0.0-0.2) Sodium Level 139 mmol/L (136-145) Potassium Level 3.6 mmol/L (3.5-5.1) Chloride Level 102 mmol/L (98-107) Carbon Dioxide Level 21 mmol/L (21-32) Anion Gap 16 (6-14) Blood Urea Nitrogen 23 mg/dL (8-26) Creatinine 1.6 mg/dL (0.7-1.3) Estimated GFR (Cockcroft-Gault) 46.0 Glucose Level 270 mg/dL (70-99) Calcium Level 8.8 mg/dL (8.5-10.1) Lipase 564 U/L (73-393) Results All relevant outside records, renal labs, imaging studies, telemetry/EKG's were reviewed. Justicifation of Admission Dx: Justifications for Admission: Justification of Admission Dx: Yes Comminuty Aquired Pneumonia: Hemodynamic Instability Acute Renal Failure: RF Can't Be Managed Outpt Sepsis: Dehydration NIALL PAINTER MD Sep 13, 2019 10:27
--- NOTE | 2019-09-13 10:31 | PDOC ---
PULMONARY PROGRESS NOTES Subjective no soa Vitals Vital Signs Date Time Temp Pulse Resp B/P (MAP) Pulse Ox O2 Delivery O2 Flow Rate FiO2 09/13/19 09:05 100 162/103 09/13/19 07:00 97.8 18 96 Room Air 97.8 09/12/19 11:29 3.0 General: Alert, No acute distress Lungs: Clear Cardiovascular: S1 Abdomen: Soft Neuro Exam: Alert Extremities: No Edema Skin: Warm Labs Laboratory Tests Test 09/11/19 11:11 09/11/19 12:16 09/11/19 13:43 09/11/19 17:04 Glucose (Fingerstick) 163 mg/dL (70-99) 152 mg/dL (70-99) 271 mg/dL (70-99) Urine Random Creatinine 91.4 mg/dL (Not Establ.) Urine Random Total Protein 124.0 mg/dL (Not Establ.) Urine Protein/Creatinine Ratio 1357 mg/g (0-200) Test 09/11/19 20:47 09/11/19 21:08 09/12/19 03:57 09/12/19 07:53 Coronavirus (COVID-19)(PCR) Not detected (NOT DETECT.) Glucose (Fingerstick) 228 mg/dL (70-99) 242 mg/dL (70-99) Sodium Level 139 mmol/L (136-145) Potassium Level 3.6 mmol/L (3.5-5.1) Chloride Level 100 mmol/L (98-107) Carbon Dioxide Level 24 mmol/L (21-32) Anion Gap 15 (6-14) Blood Urea Nitrogen 38 mg/dL (8-26) Creatinine 2.1 mg/dL (0.7-1.3) Estimated GFR (Cockcroft-Gault) 33.6 Glucose Level 206 mg/dL (70-99) Calcium Level 8.5 mg/dL (8.5-10.1) Lipase 479 U/L (73-393) Test 09/12/19 12:02 09/12/19 18:07 09/13/19 03:55 09/13/19 07:11 Glucose (Fingerstick) 182 mg/dL (70-99) 191 mg/dL (70-99) 219 mg/dL (70-99) White Blood Count 7.9 x10^3/uL (4.0-11.0) Red Blood Count 4.47 x10^6/uL (4.30-5.70) Hemoglobin 9.9 g/dL (13.0-17.5) Hematocrit 31.5 % (39.0-53.0) Mean Corpuscular Volume 71 fL (79-100) Mean Corpuscular Hemoglobin 22 pg (25-35) Mean Corpuscular Hemoglobin Concent 31 g/dL (31-37) Red Cell Distribution Width 20.1 % (11.5-14.5) Platelet Count 278 x10^3/uL (140-400) Neutrophils (%) (Auto) 83 % (31-73) Lymphocytes (%) (Auto) 8 % (24-48) Monocytes (%) (Auto) 8 % (0-9) Eosinophils (%) (Auto) 0 % (0-3) Basophils (%) (Auto) 0 % (0-3) Neutrophils # (Auto) 6.6 x10^3/uL (1.8-7.7) Lymphocytes # (Auto) 0.7 x10^3/uL (1.0-4.8) Monocytes # (Auto) 0.7 x10^3/uL (0.0-1.1) Eosinophils # (Auto) 0.0 x10^3/uL (0.0-0.7) Basophils # (Auto) 0.0 x10^3/uL (0.0-0.2) Sodium Level 139 mmol/L (136-145) Potassium Level 3.6 mmol/L (3.5-5.1) Chloride Level 102 mmol/L (98-107) Carbon Dioxide Level 21 mmol/L (21-32) Anion Gap 16 (6-14) Blood Urea Nitrogen 23 mg/dL (8-26) Creatinine 1.6 mg/dL (0.7-1.3) Estimated GFR (Cockcroft-Gault) 46.0 Glucose Level 270 mg/dL (70-99) Calcium Level 8.8 mg/dL (8.5-10.1) Lipase 564 U/L (73-393) Laboratory Tests Test 09/12/19 12:02 09/12/19 18:07 09/13/19 03:55 09/13/19 07:11 Glucose (Fingerstick) 182 mg/dL (70-99) 191 mg/dL (70-99) 219 mg/dL (70-99) White Blood Count 7.9 x10^3/uL (4.0-11.0) Red Blood Count 4.47 x10^6/uL (4.30-5.70) Hemoglobin 9.9 g/dL (13.0-17.5) Hematocrit 31.5 % (39.0-53.0) Mean Corpuscular Volume 71 fL (79-100) Mean Corpuscular Hemoglobin 22 pg (25-35) Mean Corpuscular Hemoglobin Concent 31 g/dL (31-37) Red Cell Distribution Width 20.1 % (11.5-14.5) Platelet Count 278 x10^3/uL (140-400) Neutrophils (%) (Auto) 83 % (31-73) Lymphocytes (%) (Auto) 8 % (24-48) Monocytes (%) (Auto) 8 % (0-9) Eosinophils (%) (Auto) 0 % (0-3) Basophils (%) (Auto) 0 % (0-3) Neutrophils # (Auto) 6.6 x10^3/uL (1.8-7.7) Lymphocytes # (Auto) 0.7 x10^3/uL (1.0-4.8) Monocytes # (Auto) 0.7 x10^3/uL (0.0-1.1) Eosinophils # (Auto) 0.0 x10^3/uL (0.0-0.7) Basophils # (Auto) 0.0 x10^3/uL (0.0-0.2) Sodium Level 139 mmol/L (136-145) Potassium Level 3.6 mmol/L (3.5-5.1) Chloride Level 102 mmol/L (98-107) Carbon Dioxide Level 21 mmol/L (21-32) Anion Gap 16 (6-14) Blood Urea Nitrogen 23 mg/dL (8-26) Creatinine 1.6 mg/dL (0.7-1.3) Estimated GFR (Cockcroft-Gault) 46.0 Glucose Level 270 mg/dL (70-99) Calcium Level 8.8 mg/dL (8.5-10.1) Lipase 564 U/L (73-393) Medications Active Scripts Medications Dose Route/Sig Max Daily Dose Days Date Category Dose Instructions Doxycycline Hyclate 100 Mg Capsule 100 Mg PO BID 09/11/19 Reported Clindamycin Hcl 300 Mg Capsule 600 Mg PO BID 09/11/19 Reported Lidocaine PATCH (Lidocaine) 1 Each Adh..patch 1 Each TP DAILY 03/12/19 Reported REMOVE AFTER 12 HOURS Lisinopril 5 Mg Tablet 1 Tab PO DAILY PRN 03/12/19 Reported Percocet 7.5-325 Mg Tablet (Oxycodone/Acetaminophen) 1 Each Tablet 1 Tab PO PRN Q6HRS PRN 03/12/19 Reported Clonazepam 1 Mg Tablet 1 Mg PO BID 03/12/19 Reported [place] Carbonate 300 Mg Tablet 1 Tab PO BID 08/08/18 Reported Zanaflex (Tizanidine Hcl) 4 Mg Capsule 1 Cap PO TID PRN 08/25/15 Reported Janumet 50-1,000 Mg Tablet (Sitagliptin Phos/Metformin Hcl) 1 Each Tablet 1 Tab PO BID 01/17/15 Reported Doxepin Hcl 50 Mg Capsule 300 Mg PO HS 01/17/15 Reported Impression . 1. Abnormal CT of the abdomen with lower sections of the lungs showing some inflammatory changes involving the left lower lobe. This could be a combination of atelectasis from the abdominal process versus possibility of pneumonitis. The patient has been complaining of some cough with some brownish sputum. 2. No significant tobacco history. 3. Acute pancreatitis, being followed by GI. He is a nonalcoholic. Likely etiology appears to be gallstone pancreatitis. 4. Acute kidney injury, probably on chronic kidney disease. 5. Hyperglycemia, present on admission, improving. Plan . 1. Pulmonary status appears to be overall stable. 2. Continue with present Zosyn. 3. Follow GI recommendations. 4. DVT prophylaxis with Lovenox. 5. Discussed with the patient's mother and RN and will be following him. 6. f/u GI rec regarding pancreatitis. ? cholicystectomy HAMMAD MORILLO MD Sep 13, 2019 10:31
--- NOTE | 2019-09-13 10:52 | PDOC ---
Subjective: Subjective: No n/v, no abd pain. Hungry - has been NPO, thinks might go to OR today. Objective: Objective: D/w nurse - family has called a lot wondering about surgery plans. Vital Signs: Vital Signs Date Time Temp Pulse Resp B/P (MAP) Pulse Ox O2 Delivery O2 Flow Rate FiO2 09/13/19 09:05 100 162/103 09/13/19 08:00 Room Air 09/13/19 07:00 97.8 18 96 97.8 09/12/19 11:29 3.0 Labs: Laboratory Tests Test 09/12/19 12:02 09/12/19 18:07 09/13/19 03:55 09/13/19 07:11 Glucose (Fingerstick) 182 mg/dL 191 mg/dL 219 mg/dL White Blood Count 7.9 x10^3/uL Red Blood Count 4.47 x10^6/uL Hemoglobin 9.9 g/dL Hematocrit 31.5 % Mean Corpuscular Volume 71 fL Mean Corpuscular Hemoglobin 22 pg Mean Corpuscular Hemoglobin Concent 31 g/dL Red Cell Distribution Width 20.1 % Platelet Count 278 x10^3/uL Neutrophils (%) (Auto) 83 % Lymphocytes (%) (Auto) 8 % Monocytes (%) (Auto) 8 % Eosinophils (%) (Auto) 0 % Basophils (%) (Auto) 0 % Neutrophils # (Auto) 6.6 x10^3/uL Lymphocytes # (Auto) 0.7 x10^3/uL Monocytes # (Auto) 0.7 x10^3/uL Eosinophils # (Auto) 0.0 x10^3/uL Basophils # (Auto) 0.0 x10^3/uL Sodium Level 139 mmol/L Potassium Level 3.6 mmol/L Chloride Level 102 mmol/L Carbon Dioxide Level 21 mmol/L Anion Gap 16 Blood Urea Nitrogen 23 mg/dL Creatinine 1.6 mg/dL Estimated GFR (Cockcroft-Gault) 46.0 Glucose Level 270 mg/dL Calcium Level 8.8 mg/dL Lipase 564 U/L PE: GEN: NAD LUNGS: CTAB HEART: mildly tachcycardic ABD: S/ND/NT NEURO/PSYCH: A & O 3 A/P: Gallstone pancreatitis DM, JAQUAN - better COVID-19 negative -- Lipase remains slightly elevated but symptoms much improved. Timing of cholecystectomy per surgery. Justicifation of Admission Dx: Justifications for Admission: Justification of Admission Dx: Yes Comminuty Aquired Pneumonia: Hemodynamic Instability Acute Renal Failure: RF Can't Be Managed Outpt Sepsis: Dehydration ADAN PEREZ Sep 13, 2019 10:52
[2019-09-13 11:00] VITALS: BP 154/84
[2019-09-13] MEDS: LACTOBACILLUS RHAMNOSUS GG 1 CAPSULE. PO SCH ×2 (12:11→21:06)
[2019-09-13] MEDS: LITHIUM CARBONATE ER 300 MG TABLET.ER PO SCH ×2 (12:11→21:06)
[2019-09-13] MEDS: clonazePAM 0.5 MG TABLET PO SCH ×2 (12:11→21:06)
[2019-09-13] MEDS ORDERED: IOHEXOL 240 MG/ML 50ML VIAL. PO ONE (13:30)
[2019-09-13] MEDS ORDERED: IOHEXOL 300 MG/ML 100ML VIAL. IV ONE (13:30)
[2019-09-13] MEDS ORDERED: CONTRAST GIVEN. MC PRN (13:45)
[2019-09-13 15:00] VITALS: BP 154/82
[2019-09-13] MEDS: ENOXAPARIN 40 MG/0.4 ML SYRINGE. SQ SCH (15:00)
--- NOTE | 2019-09-13 16:25 | RAD ---
EXAM: CT Abdomen and Pelvis with IV contrast INDICATION: Reason: pancreatitis / Spl. Instructions: omni 300 60ml omni 240 30ml / History: TECHNIQUE: Multi-detector row CT images were acquired from the lung bases through the abdomen and pelvis with the use of IV contrast. Sagittal and coronal images were acquired from the transaxial data. All CT scans performed at this facility utilize dose optimization techniques as appropriate to the exam, including the following: Automated exposure control and adjustment of the mA and/or KV according to patient size (this includes techniques or standardized protocols for targeted exams where dose is indication/reason for exam). IV CONTRAST: Administered ORAL CONTRAST: administered COMPARISON: Contrast-enhanced abdomen pelvis CT of 09/10/2019. FINDINGS: LOWER CHEST: Patchy ill-defined ground glass opacities in the left lung are again evident. Distal thoracic esophagus shows mild wall thickening. LIVER: Unremarkable BILIARY SYSTEM: Gallbladder is mildly distended and half filled with multiple tiny stones, similar to prior. No gallbladder wall thickening or pericholecystic stranding shown on CT. Bile ducts are not dilated. PANCREAS: Diffuse peripancreatic soft tissue stranding and mild diffuse pancreatic parenchymal edema is evident. No interval development of a fluid collection or abnormal parenchymal soft tissue gas. With IV contrast, there is relative hypoenhancement in the pancreatic neck. SPLEEN: Unremarkable ADRENALS: Unremarkable KIDNEYS & URETERS: Nonobstructing superior pole right 2 mm nephrolithiasis. Similar-appearing rim calcified exophytic lesion in the midpole left kidney, likely representing a benign, Bosniak 2 cyst. This requires no additional follow-up. Stable lateral midpole left renal fat-containing 1.3 cm mass compatible with an angiomyolipoma. No evidence of acute hemorrhage. Mild bilateral perirenal soft tissue stranding. No hydronephrosis or hydroureter. No ureteral stones identified. BLADDER: Mildly distended. Otherwise unremarkable REPRODUCTIVE ORGANS: Unremarkable GASTROINTESTINAL: The stomach, small bowel, and colon are unremarkable. The appendix is normal. MESENTERY/PERITONEUM/RETROPERITONEUM: No free air, significant free fluid or organized fluid collection. VASCULAR: No vascular thrombosis, aneurysm or occlusion is identified. There is calcification in the splenic artery that likely contributes to artifactual hypodensity in the splenic artery. Images were not acquired in the arterial phase to assess for flow-limiting stenosis or occlusion in the arterial vessels. There are no secondary findings suspicious for active arterial extravasation. LYMPH NODES: Mildly reactive periaortic upper abdominal lymph nodes and mildly enlarged periportal lymph nodes, measuring up to 12 mm. OSSEOUS & SOFT TISSUES: Similar degenerative changes in the lumbar spine with varying degrees of minimal listhesis as described 3 days ago. No acute superimposed findings. IMPRESSION 1. Acute pancreatitis with probable edema at the pancreatic neck. No definite findings of parenchymal necrosis and no evidence of abscess formation on contrast enhanced imaging. 2. Similar patchy airspace opacities in the left lung, favored sequelae of aspiration or atypical pneumonia. Electronically signed by: Davidson Sauer MD (09/13/2019 4:22 PM) [id number]
[2019-09-13] MEDS: guaiFENesin DM 200MG/20MG 10 ML SYRUP PO PRN (17:29)
[2019-09-13] MEDS: oxyCODONE/APAP 7.5/325 1 TAB TABLET PO PRN (17:30)
--- NOTE | 2019-09-13 17:31 | PDOC ---
PROGRESS NOTES Subjective Subjective feels ok, denies pain Objective Objective Vital Signs Date Time Temp Pulse Resp B/P (MAP) Pulse Ox O2 Delivery O2 Flow Rate FiO2 09/13/19 15:00 97.9 98 18 154/82 (106) 99 Room Air 97.9 09/12/19 11:29 3.0 Intake and Output 09/13/19 07:00 Intake Total 50 ml Output Total 0 ml Balance 50 ml Intake Oral 50 ml Output Urine Total 0 ml # Voids 1 Physical Exam Abdomen: Soft, No tenderness Heart: Regular rate General: Alert, Oriented X3 Lungs: Clear to auscultation Assessment Assessment Problems Medical Problems: (1) Acute kidney injury Status: Acute (2) Dehydration Status: Acute Plan Plan of Care Lipase bumped a bit, CT obtained to reassess pancreas; some continue inflammation, no pseudocyst, no necrosis. Will plan lap itzel tomorrow Comment Review of Relevant I have reviewed the following items blaze (where applicable) has been applied. Labs Laboratory Tests Test 09/11/19 20:47 09/11/19 21:08 09/12/19 03:57 09/12/19 07:53 Coronavirus (COVID-19)(PCR) Not detected (NOT DETECT.) Glucose (Fingerstick) 228 mg/dL (70-99) 242 mg/dL (70-99) Sodium Level 139 mmol/L (136-145) Potassium Level 3.6 mmol/L (3.5-5.1) Chloride Level 100 mmol/L (98-107) Carbon Dioxide Level 24 mmol/L (21-32) Anion Gap 15 (6-14) Blood Urea Nitrogen 38 mg/dL (8-26) Creatinine 2.1 mg/dL (0.7-1.3) Estimated GFR (Cockcroft-Gault) 33.6 Glucose Level 206 mg/dL (70-99) Calcium Level 8.5 mg/dL (8.5-10.1) Lipase 479 U/L (73-393) Test 09/12/19 12:02 09/12/19 18:07 09/13/19 03:55 09/13/19 07:11 Glucose (Fingerstick) 182 mg/dL (70-99) 191 mg/dL (70-99) 219 mg/dL (70-99) White Blood Count 7.9 x10^3/uL (4.0-11.0) Red Blood Count 4.47 x10^6/uL (4.30-5.70) Hemoglobin 9.9 g/dL (13.0-17.5) Hematocrit 31.5 % (39.0-53.0) Mean Corpuscular Volume 71 fL (79-100) Mean Corpuscular Hemoglobin 22 pg (25-35) Mean Corpuscular Hemoglobin Concent 31 g/dL (31-37) Red Cell Distribution Width 20.1 % (11.5-14.5) Platelet Count 278 x10^3/uL (140-400) Neutrophils (%) (Auto) 83 % (31-73) Lymphocytes (%) (Auto) 8 % (24-48) Monocytes (%) (Auto) 8 % (0-9) Eosinophils (%) (Auto) 0 % (0-3) Basophils (%) (Auto) 0 % (0-3) Neutrophils # (Auto) 6.6 x10^3/uL (1.8-7.7) Lymphocytes # (Auto) 0.7 x10^3/uL (1.0-4.8) Monocytes # (Auto) 0.7 x10^3/uL (0.0-1.1) Eosinophils # (Auto) 0.0 x10^3/uL (0.0-0.7) Basophils # (Auto) 0.0 x10^3/uL (0.0-0.2) Sodium Level 139 mmol/L (136-145) Potassium Level 3.6 mmol/L (3.5-5.1) Chloride Level 102 mmol/L (98-107) Carbon Dioxide Level 21 mmol/L (21-32) Anion Gap 16 (6-14) Blood Urea Nitrogen 23 mg/dL (8-26) Creatinine 1.6 mg/dL (0.7-1.3) Estimated GFR (Cockcroft-Gault) 46.0 Glucose Level 270 mg/dL (70-99) Calcium Level 8.8 mg/dL (8.5-10.1) Lipase 564 U/L (73-393) Test 09/13/19 11:49 09/13/19 16:39 Glucose (Fingerstick) 219 mg/dL (70-99) 224 mg/dL (70-99) Laboratory Tests Test 09/12/19 18:07 09/13/19 03:55 09/13/19 07:11 09/13/19 11:49 Glucose (Fingerstick) 191 mg/dL (70-99) 219 mg/dL (70-99) 219 mg/dL (70-99) White Blood Count 7.9 x10^3/uL (4.0-11.0) Red Blood Count 4.47 x10^6/uL (4.30-5.70) Hemoglobin 9.9 g/dL (13.0-17.5) Hematocrit 31.5 % (39.0-53.0) Mean Corpuscular Volume 71 fL (79-100) Mean Corpuscular Hemoglobin 22 pg (25-35) Mean Corpuscular Hemoglobin Concent 31 g/dL (31-37) Red Cell Distribution Width 20.1 % (11.5-14.5) Platelet Count 278 x10^3/uL (140-400) Neutrophils (%) (Auto) 83 % (31-73) Lymphocytes (%) (Auto) 8 % (24-48) Monocytes (%) (Auto) 8 % (0-9) Eosinophils (%) (Auto) 0 % (0-3) Basophils (%) (Auto) 0 % (0-3) Neutrophils # (Auto) 6.6 x10^3/uL (1.8-7.7) Lymphocytes # (Auto) 0.7 x10^3/uL (1.0-4.8) Monocytes # (Auto) 0.7 x10^3/uL (0.0-1.1) Eosinophils # (Auto) 0.0 x10^3/uL (0.0-0.7) Basophils # (Auto) 0.0 x10^3/uL (0.0-0.2) Sodium Level 139 mmol/L (136-145) Potassium Level 3.6 mmol/L (3.5-5.1) Chloride Level 102 mmol/L (98-107) Carbon Dioxide Level 21 mmol/L (21-32) Anion Gap 16 (6-14) Blood Urea Nitrogen 23 mg/dL (8-26) Creatinine 1.6 mg/dL (0.7-1.3) Estimated GFR (Cockcroft-Gault) 46.0 Glucose Level 270 mg/dL (70-99) Calcium Level 8.8 mg/dL (8.5-10.1) Lipase 564 U/L (73-393) Test 09/13/19 16:39 Glucose (Fingerstick) 224 mg/dL (70-99) Microbiology 09/10/19 Blood Culture - Preliminary, Resulted NO GROWTH AFTER 3 DAYS Medications Current Medications Sodium Chloride 1,000 ml @ 0 mls/hr 1X ONCE IV Last administered on 09/10/19at 11:06; Start 09/10/19 at 11:00; Stop 09/10/19 at 11:01; Status DC Ondansetron HCl (Zofran) 4 mg 1X ONCE IVP Last administered on 09/10/19at 11:06; Start 09/10/19 at 11:00; Stop 09/10/19 at 11:01; Status DC Sodium Chloride (Normal Saline Flush) 3 ml QSHIFT PRN IV AFTER MEDS AND BLOOD DRAWS Last administered on 09/10/19at 13:54; Start 09/10/19 at 13:15 Sodium Chloride 1,000 ml @ 100 mls/hr Q10H IV Last administered on 09/13/19at 12:16; Start 09/10/19 at 13:05 Ondansetron HCl (Zofran) 4 mg PRN Q4HRS PRN IV NAUSEA/VOMITING Last ad ministered on 09/11/19at 23:41; Start 09/10/19 at 13:15 Acetaminophen (Tylenol Supp) 650 mg PRN Q4HRS PRN CO TEMP OVER 100.4F OR MILD PAIN; Start 09/10/19 at 13:15 Clonidine HCl (Catapres) 0.1 mg PRN Q6HRS PRN PO SBP>160 OR DBP>90; Start 09/10/19 at 13:15 Docusate Sodium (Colace) 100 mg PRN BID PRN PO HARD STOOLS; Start 09/10/19 at 13:15 Albuterol/ Ipratropium (Duoneb) 3 ml Q4HRS NEB ; Start 09/10/19 at 16:00; Stop 09/10/19 at 19:57; Status DC Enoxaparin Sodium (Lovenox 40mg Syringe) 40 mg Q24H SQ Last administered on 09/12/19at 15:46; Start 09/10/19 at 15:00 Piperacillin Sod/ Tazobactam Sod 3.375 gm/Sodium Chloride 50 ml @ 100 mls/hr Q6 HRS IV Last administered on 09/13/19at 12:11; Start 09/10/19 at 16:00 Insulin Human Regular 100 unit/ Sodium Chloride 101 ml @ 0 mls/hr CONT PRN IV SEE I/O RECORD Last administered on 09/10/19at 21:21; Start 09/10/19 at 13:15 Dextrose (Dextrose 50%-Water Syringe) 12.5 gm PRN Q15MIN PRN IV LOW BLOOD SUGAR; Start 09/10/19 at 13:15; Stop 09/10/19 at 21:06; Status DC Dextrose (Iv Dextrose 5%) 250 ml PRN Q15MIN PRN IV LOW BLOOD SUGAR; Start 09/10/19 at 13:15 Insulin Human Regular 0 ml @ As Directed STK-MED ONCE IV ; Start 09/10/19 at 13:47; Stop 09/10/19 at 13:47; Status DC Pantoprazole Sodium (PROTONIX VIAL for IV PUSH) 40 mg DAILYAC IVP Last administered on 09/12/19at 07:56; Start 09/11/19 at 07:30; Stop 09/12/19 at 10:15; Status DC Prochlorperazine Edisylate (Compazine) 10 mg PRN Q6HRS PRN IV NAUSEA/VOMITING- 2ND CHOICE Last administered on 09/10/19at 15:53; Start 09/10/19 at 15:45 Hydralazine HCl (Apresoline Inj) 10 mg PRN Q4HRS PRN IVP ELEVATED BP, SEE COMMENTS Last administered on 09/13/19at 09:05; Start 09/10/19 at 15:45 Potassium Chloride/Water 100 ml @ 100 mls/hr Q1H IV Last administered on 09/10/19at 21:20; Start 09/10/19 at 18:00; Stop 09/10/19 at 20:59; Status DC Potassium Phosphate 13.6 mmol/Sodium Chloride 254.5333 ml @ 62.5 mls/hr 1X ONCE IV Last administered on 09/10/19at 18:24; Start 09/10/19 at 18:00; Stop 09/10/19 at 22:04; Status DC Albuterol Sulfate (Ventolin Neb Soln) 2.5 mg PRN Q4HRS PRN NEB WHEEZING; Start 09/10/19 at 20:00 Insulin Human Lispro (HumaLOG) 0-7 UNITS TIDWMEALS SQ Last administered on 09/11/19at 17:07; Start 09/11/19 at 08:00; Stop 09/11/19 at 18:15; Status DC Dextrose (Dextrose 50%-Water Syringe) 12.5 gm PRN Q15MIN PRN IV SEE COMMENTS; Start 09/10/19 at 21:15 Potassium Chloride/Water 100 ml @ 100 mls/hr Q1H IV Last administered on 09/11/19at 10:05; Start 09/11/19 at 07:00; Stop 09/11/19 at 08:59; Status DC Lidocaine (Lidoderm) 1 patch DAILY TP Last administered on 09/12/19at 07:57; Start 09/11/19 at 10:00 Lisinopril (Prinivil) 5 mg PRN DAILY PRN PO hypertension Last administered on 09/11/19at 12:14; Start 09/11/19 at 09:45 Oxycodone/ Acetaminophen (Percocet 7.5/ 325) 1 tab PRN Q6HRS PRN PO MODERATE TO SEVERE PAIN Last administered on 09/12/19at 11:29; Start 09/11/19 at 09:45 Clonazepam (KlonoPIN) 1 mg BID PO Last administered on 09/13/19at 12:11; Start 09/11/19 at 10:00 Doxepin HCl (SINEquan) 300 mg QHS PO ; Start 09/11/19 at 21:00; Status Cancel [place] Carbonate (Lithobid) 300 mg BID PO Last administered on 09/13/19at 12:11; Start 09/11/19 at 10:00 Metformin HCl (Glucophage) 1,000 mg BIDWMEALS PO ; Start 09/11/19 at 10:00; Stop 09/11/19 at 12:45; Status DC Tizanidine HCl (Zanaflex) 1 mg PRN TID PRN PO MUSCLE SPASTICITY Last adminis tered on 09/13/19at 12:11; Start 09/11/19 at 09:45 Linagliptin (Tradjenta) 5 mg DAILY PO Last administered on 09/13/19at 09:04; Sta rt 09/11/19 at 10:00 Miscellaneous (Lidoderm Patch Removal) 1 ea QHS MC Last administered on 09/12/19at 20:48; Start 09/11/19 at 21:00 Non-Formulary Medication 2 ea QHS PO Last administered on 09/12/19at 20:47; Start 09/11/19 at 21:00 Insulin Human Lispro (HumaLOG) 0-7 UNITS QIDACHS SQ Last administered on 09/13/19at 12:15; Start 09/11/19 at 21:00 Pantoprazole Sodium (Protonix) 40 mg DAILYAC PO Last administered on 09/13/19at 09:04; Start 09/13/19 at 07:30 Lactobacillus Rhamnosus (Culturelle) 1 cap BID PO Last administered on 09/13/19at 12:11; Start 09/12/19 at 21:00 Guaifenesin (Robitussin Dm) 10 ml PRN Q4HRS PRN PO COUGH; Start 09/13/19 at 13 :00 Iohexol (Omnipaque 240 Mg/ml) 30 ml 1X ONCE PO Last administered on 09/13/19at 13:30; Start 09/13/19 at 13:30; Stop 09/13/19 at 13:31; Status DC Iohexol (Omnipaque 300 Mg/ml) 60 ml 1X ONCE IV Last administered on 09/13/19at 13:30; Start 09/13/19 at 13:30; Stop 09/13/19 at 13:31; Status DC Info (CONTRAST GIVEN -- Rx MONITORING) 1 each PRN DAILY PRN MC SEE COMMENTS; Start 09/13/19 at 13:45; Stop 09/15/19 at 13:44 Active Scripts Active Reported Doxycycline Hyclate 100 Mg Capsule 100 Mg PO BID Clindamycin Hcl 300 Mg Capsule 600 Mg PO BID Lidocaine PATCH (Lidocaine) 1 Each Adh..patch 1 Each TP DAILY REMOVE AFTER 12 HOURS Lisinopril 5 Mg Tablet 1 Tab PO DAILY PRN Percocet 7.5-325 Mg Tablet (Oxycodone/Acetaminophen) 1 Each Tablet 1 Tab PO PRN Q6HRS PRN Clonazepam 1 Mg Tablet 1 Mg PO BID [place] Carbonate 300 Mg Tablet 1 Tab PO BID Zanaflex (Tizanidine Hcl) 4 Mg Capsule 1 Cap PO TID PRN Janumet 50-1,000 Mg Tablet (Sitagliptin Phos/Metformin Hcl) 1 Each Tablet 1 Tab PO BID Doxepin Hcl 50 Mg Capsule 300 Mg PO HS Vitals/I & O Vital Sign - Last 24 Hours 09/12/19 09/12/19 09/12/19 09/13/19 19:00 23:00 23:07 03:00 Temp 98.0 98.9 98.5 98.0 98.9 98.5 Pulse 102 101 102 104 Resp 18 18 18 B/P (MAP) 171/95 (120) 171/104 (126) 171/95 146/92 (110) Pulse Ox 93 94 95 O2 Delivery Room Air Room Air Room Air 09/13/19 09/13/19 09/13/19 09/13/19 07:00 08:00 09:05 11:00 Temp 97.8 97.9 97.8 97.9 Pulse 100 100 107 Resp 18 18 B/P (MAP) 162/103 (122) 162/103 154/84 (107) Pulse Ox 96 99 O2 Delivery Room Air Room Air Room Air 09/13/19 15:00 Temp 97.9 97.9 Pulse 98 Resp 18 B/P (MAP) 154/82 (106) Pulse Ox 99 O2 Delivery Room Air Intake and Output 09/12/19 09/12/19 09/13/19 15:00 23:00 07:00 Intake Total 50 ml 0 ml Output Total 0 ml Balance 50 ml 0 ml Nutrition Consultation Dietary Evaluation: Recommendations by RD: Dietary education by RD, Increase Calorie Intake, Protein supplementation Comments: Advance diet per surgery, goal diet caridac/ADA w/supplements per pt preference REC short-term non-oral nutrition (PPN or dobhoff/TFs) if unable to advance diet REC Juaquin, MVI for wound healing (dehisced incision) Expected Outcomes/Goals: diet advancement - not met, goal ongoing Interpretation of weight loss: >7.5% in 3 months Malnutrition Findings: Food and Nutrition Intake (Sev: <50% est energy req 5days Weight Status: Obese TOMMY THOMPSON MD Sep 13, 2019 17:31
--- NOTE | 2019-09-13 17:36 | NUR ---
lovebreonnax held, possible surgery tomorrow
[2019-09-13 19:00] VITALS: BP 174/94
[2019-09-13] MEDS: PATCH REMOVAL. MC SCH (21:00)
[2019-09-13] MEDS: DOXEPIN 150 MG PO SCH (21:06)
[2019-09-13 23:00] VITALS: BP 152/88
[2019-09-14] VITALS (12 sets, daily range): BP systolic 146–172; BP diastolic 83–102
[2019-09-14] MEDS: PIPERACILLIN/TAZOBACTAM 3.375 GM in IV NORMAL SALINE 50ML 50 ML IV SCH ×5 (00:05→23:59)
[2019-09-14] MEDS: IV NORMAL SALINE 1000ML BAG 1,000 ML IV SCH ×3 (02:05→17:05)
[2019-09-14 04:34] LABS: BASO % 0 % (0-3); EOS # 0.2 x10^3/uL (0.0-0.7); EOS % 2 % (0-3); HEMATOCRIT 29.7 % (39.0-53.0); HEMOGLOBIN 9.3 g/dL (13.0-17.5); LYMPH # 0.7 x10^3/uL (1.0-4.8); LYMPH % 10 % (24-48); MEAN CORPUSCULAR HEMOGLOBIN 22 pg (25-35); MEAN CORPUSCULAR HGB CONC 31 g/dL (31-37); MEAN CORPUSCULAR VOLUME 71 fL (79-100); MONO # 0.8 x10^3/uL (0.0-1.1); MONO % 11 % (0-9); NEUT # 5.7 x10^3/uL (1.8-7.7); NEUT % 77 % (31-73); PLATELET COUNT 256 x10^3/uL (140-400); RED BLOOD COUNT 4.18 x10^6/uL (4.30-5.70); RED CELL DISTRIBUTION WIDTH 20.2 % (11.5-14.5); WHITE BLOOD COUNT 7.4 x10^3/uL (4.0-11.0)
[2019-09-14 05:09] LABS: CALCIUM 8.4 mg/dL (8.5-10.1); CREATININE 1.2 mg/dL (0.7-1.3); GFR 64.1; POTASSIUM 3.2 mmol/L (3.5-5.1)
[2019-09-14] MEDS ORDERED: ROCURONIUM 50 MG/5 ML VIAL. ONE ×2 (07:14→07:26)
[2019-09-14] MEDS ORDERED: LIDOCAINE 2% PF 5 ML VIAL. ONE (07:15)
[2019-09-14] MEDS ORDERED: DEXAMETHASONE SOD PHOS 4 MG/ML VIAL ONE (07:15)
[2019-09-14] MEDS ORDERED: SEVOFLURANE > 120 MINUTES. IH ONE (07:15)
[2019-09-14] MEDS ORDERED: PROPOFOL 10 MG/ML (20ML) VIAL. IV ONE (07:15)
[2019-09-14] MEDS ORDERED: ONDANSETRON PF 4 MG/2 ML VIAL. ONE (07:15)
--- NOTE | 2019-09-14 07:15 | NUR ---
Patient left for surgery at approximately 0710.
[2019-09-14] MEDS ORDERED: SURGICEL HEMOSTAT 4X8 EACH. ONE (07:17)
[2019-09-14] MEDS ORDERED: IOHEXOL 300 MG/ML 50 ML VIAL. ONE (07:17)
[2019-09-14] MEDS ORDERED: BUPIVACAINE MPF 0.5% 30 ML VIAL. ONE (07:17)
[2019-09-14] MEDS ORDERED: IV RINGERS,LACTATED 1000ML 1,000 ML IV SCH (07:21)
[2019-09-14] MEDS ORDERED: fentaNYL PF VIAL 100 MCG/2 ML VIAL ONE ×2 (07:27→08:55)
[2019-09-14] MEDS: INSULIN LISPRO 300 UNITS/3 ML VIAL. SQ SCH ×4 (07:30→21:00)
[2019-09-14] MEDS ORDERED: HYDROmorphone 2 MG/ML VIAL IV PRN (07:30)
[2019-09-14] MEDS ORDERED: ONDANSETRON PF 4 MG/2 ML VIAL. IV PRN (07:30)
[2019-09-14] MEDS ORDERED: MORPHINE SULFATE 2 MG/ML VIAL. IV PRN (07:30)
[2019-09-14] MEDS ORDERED: fentaNYL PF VIAL 100 MCG/2 ML VIAL IV PRN ×2 (07:30)
[2019-09-14] MEDS ORDERED: PROCHLORPERAZINE 10 MG/2 ML VIAL. IV PRN (07:30)
[2019-09-14] MEDS ORDERED: GLYCOPYRROLATE 1 MG/5 ML VIAL. ONE (07:31)
[2019-09-14] MEDS ORDERED: NEOSTIGMINE METHYLSULFATE 5 MG/5 ML SYRINGE. ONE (07:31)
[2019-09-14] MEDS ORDERED: PHENYLEPHRINE in 0.9% NACL PF 1 MG/10 ML SYRINGE. IV ONE (08:13)
[2019-09-14] MEDS ORDERED: ePHEDrine PF IN SALINE 50 MG/10 ML SYRINGE. IV ONE (08:16)
[2019-09-14] MEDS ORDERED: VASOPRESSIN 20 UNIT/ML VIAL. ONE (08:17)
--- NOTE | 2019-09-14 08:26 | PDOC ---
Infectious Disease Note Subjective Subjective Feeling better. No nausea vomiting diarrhea or abdominal pain Vital Sign Vital Signs Vital Signs Date Time Temp Pulse Resp B/P (MAP) Pulse Ox O2 Delivery O2 Flow Rate FiO2 09/14/19 03:00 98.0 89 18 172/90 (117) 97 Room Air 98.0 Physical Exam PHYSICAL EXAM GENERAL: Alert, oriented gentleman, not in distress. VITAL SIGNS: Stable, afebrile. HEENT: NAD. NECK: Supple, no JVP, no lymphadenopathy. LUNGS: Clear. HEART: S1, S2 regular. ABDOMEN: Benign. EXTREMITIES: No edema, cyanosis. SKIN: Unremarkable except left knee, there is a small wound on to the knee which appears clean, healthy, red granulation tissue and no drainage. NEUROLOGIC: The patient is alert, awake and appropriate. No focal neurologic deficit. Labs Lab Laboratory Tests Test 09/13/19 11:49 09/13/19 16:39 09/13/19 20:20 09/14/19 03:35 Glucose (Fingerstick) 219 mg/dL (70-99) 224 mg/dL (70-99) 240 mg/dL (70-99) White Blood Count 7.4 x10^3/uL (4.0-11.0) Red Blood Count 4.18 x10^6/uL (4.30-5.70) Hemoglobin 9.3 g/dL (13.0-17.5) Hematocrit 29.7 % (39.0-53.0) Mean Corpuscular Volume 71 fL (79-100) Mean Corpuscular Hemoglobin 22 pg (25-35) Mean Corpuscular Hemoglobin Concent 31 g/dL (31-37) Red Cell Distribution Width 20.2 % (11.5-14.5) Platelet Count 256 x10^3/uL (140-400) Neutrophils (%) (Auto) 77 % (31-73) Lymphocytes (%) (Auto) 10 % (24-48) Monocytes (%) (Auto) 11 % (0-9) Eosinophils (%) (Auto) 2 % (0-3) Basophils (%) (Auto) 0 % (0-3) Neutrophils # (Auto) 5.7 x10^3/uL (1.8-7.7) Lymphocytes # (Auto) 0.7 x10^3/uL (1.0-4.8) Monocytes # (Auto) 0.8 x10^3/uL (0.0-1.1) Eosinophils # (Auto) 0.2 x10^3/uL (0.0-0.7) Basophils # (Auto) 0.0 x10^3/uL (0.0-0.2) Sodium Level 142 mmol/L (136-145) Potassium Level 3.2 mmol/L (3.5-5.1) Chloride Level 105 mmol/L (98-107) Carbon Dioxide Level 22 mmol/L (21-32) Anion Gap 15 (6-14) Blood Urea Nitrogen 13 mg/dL (8-26) Creatinine 1.2 mg/dL (0.7-1.3) Estimated GFR (Cockcroft-Gault) 64.1 Glucose Level 217 mg/dL (70-99) Calcium Level 8.4 mg/dL (8.5-10.1) Lipase 421 U/L (73-393) Test 09/14/19 07:22 Glucose (Fingerstick) 191 mg/dL (70-99) Micro Microbiology 09/10/19 Blood Culture - Preliminary, Resulted NO GROWTH AFTER 1 DAY Objective Assessment IMPRESSION: 1. Nausea, vomiting, and pancreatitis, unclear etiology. May have been gallstone or CBD stone causing blockage. I have asked for triglyceride levels. The patient does not drink alcohol. 2. Left total knee arthroplasty infection with the last culture only positive was from Dr. Avila's office, which was sent into some outside lab and has coagulase negative Staphylococcus, which was oxacillin resistant and tetracycline resistant. Hence, the patient is on clindamycin. Unfortunately, not a good drug but not much options. 3. Chest x-ray is normal, but the CT showing possible infiltrate, may have aspirated. 4. Diabetes. 5. Hypertension. 6. Bipolar disorder. 7. Renal insufficiency. Plan Plan of Care Continue supportive care. Continue local wound care on the knee. And now patient can be switched over to p.o. clindamycin Patient is n.p.o. for now and going for gallbladder surgery RUTH DOUGLASS MD Sep 14, 2019 08:26
--- NOTE | 2019-09-14 09:03 | PDOC4 ---
Operative Note Operative Note Operative Note: Preoperative Diagnosis: Gallstone pancreatitis Postoperative Diagnosis: Same Procedure: Laparoscopic cholecystectomy with intraoperative cholangiogram Surgeons: [employer]: Aron WING Anesthesia: Gen. Estimated Blood Loss: 10 mL Specimen: Gallbladder to pathology Drains: None Complications: None Indications: The patient is a 49-year-old male who was admitted with prominent vomiting and abdominal pain. His evaluation is consistent with gallstone pancreatitis. Surgical treatment was offered by means of a laparoscopic chol ecystectomy. The risks of surgery were discussed which include bleeding, infection, bile duct injury, bile leak, pain, the potential for additional surgeries or procedures. The patient understands and would like to proceed. Description: The patient was taken to the operating room and laid supine on the operating table. General anesthesia was performed. The abdomen was prepped with ChloraPrep and draped in a standard surgical fashion. A small supraumbilical incision was made with a scalpel. The Veress needle was then inserted and a pneumoperitoneum was then created. A 5 mm trocar was then inserted and the laparoscope was introduced. In the upper midabdomen an 11 mm trocar was inserted and in the right upper quadrant two 5 mm trocars were inserted. The gallbladder was retracted cephalad. The cystic duct was dissected free from surrounding tissues. One clip was placed on the duct near the gallbladder junction. An opening was made in the duct and a cholangiocatheter placed within and secured with a clip. Using contrast dye and fluoroscopy an intraoperative cholangiogram was performed that appeared unremarkable. The clip and catheter were then withdrawn. Three clips were placed on the cystic duct and it was divided. The cystic artery was then tiffany ntified, dissected free, doubly clipped and divided as well. The gallbladder was then mobilized away from the liver with cautery. The gallbladder was then placed in an endoscopic bag and extracted at the superior trocar site. The fascia there was closed with an 0 PDS sutures. All blood and irrigation fluid was suctioned and hemostasis was good. The remaining ports were removed and the pneumoperitoneum was relieved. The skin incisions were injected with half percent Marcaine with epinephrine, and all were closed using 4-0 Monocryl suture. Steri-Strips and dressings were then applied. The patient tolerated the procedure well and was sent to the recovery room in stable condition. At the end of the case all counts were correct. TOMMY THOMPSON MD Sep 14, 2019 09:03
--- NOTE | 2019-09-14 09:10 | PDOC ---
PROGRESS NOTES Chief Complaint Chief Complaint IMPRESSION 1 Peripancreatic inflammatory changes compatible with acute pancreatitis. much of the gallbladder lumen is filled with gallstones and though no stone is definitively seen within the common bile duct, gallstone pancreatitis remains a consideration. 2. Ill-defined infiltrates involving the visualized left lower lung more so than the right. Sequela of aspiration or an atypical pneumonia may have this appearance. 3. mineralized nodule off the medial pole of the left kidney measuring around 1cm //calcified cyst would be the most likely etiology 4. hyperglycemia, uncontrolled nonketotic // diabetes 5. morbid obesity 6. intractable nausea, vomiting 7. JAQUAN 8. Pseudohyponatremia History of Present Illness History of Present Illness 09/14/2019 Patient seen and examined Chart reviewed Lipase is down into the 400s from the 700s n.p.o. for now and going for gallbladder surgery // Laparoscopic cholecystectomy with intraoperative cholangiogram Operative Note Operative Note Operative Note Operative Note: Preoperative Diagnosis: Gallstone pancreatitis Postoperative Diagnosis: Same Procedure: Laparoscopic cholecystectomy with intraoperative cholangiogram Surgeons: [facility] [employer] Representative: Aron WING Anesthesia: Gen. Estimated Blood Loss: 10 mL Specimen: Gallbladder to pathology Drains: None Complications: None Indications: The patient is a 49-year-old male who was admitted with prominent vomiting and abdominal pain. 09/11/2019 Patient seen and examined His mother is here helping (MARCUS Johnson) Discussed with RN Chart reviewed Called Dr. Isidro We have all agreed to put the patient on a clear liquid diet so he can take his home meds especially his psych meds Glucose is doing better at 120 Lipase was only 700 Patient clinically is doing okay but little depressed We are also going to consult infectious disease and orthopedics (he has a chronic knee infection and recent knee surgery) GI nurse practitioner Amelia just arrived to examine the patient as well Vitals Vitals Vital Signs Date Time Temp Pulse Resp B/P (MAP) Pulse Ox O2 Delivery O2 Flow Rate FiO2 09/14/19 07:45 98.0 89 15 149/86 97 Room Air 3.0 98.0 Physical Exam Physical Exam GENERAL: Alert, oriented gentleman, not in distress. VITAL SIGNS: Stable, afebrile. HEENT: NAD. NECK: Supple, no JVP, no lymphadenopathy. LUNGS: Clear. HEART: S1, S2 regular. ABDOMEN: Benign. EXTREMITIES: No edema, cyanosis. SKIN: Unremarkable except left knee, there is a small wound on to the knee which appears clean, healthy, red granulation tissue and no drainage. NEUROLOGIC: The patient is alert, awake and appropriate. No focal neurologic deficit. General: Alert, Oriented X3 Heart: Regular rate Lungs: Clear Abdomen: Soft, No tenderness Extremities: No clubbing, No cyanosis Skin: No rashes Labs LABS Laboratory Tests Test 09/13/19 11:49 09/13/19 16:39 09/13/19 20:20 09/14/19 03:35 Glucose (Fingerstick) 219 mg/dL (70-99) 224 mg/dL (70-99) 240 mg/dL (70-99) White Blood Count 7.4 x10^3/uL (4.0-11.0) Red Blood Count 4.18 x10^6/uL (4.30-5.70) Hemoglobin 9.3 g/dL (13.0-17.5) Hematocrit 29.7 % (39.0-53.0) Mean Corpuscular Volume 71 fL (79-100) Mean Corpuscular Hemoglobin 22 pg (25-35) Mean Corpuscular Hemoglobin Concent 31 g/dL (31-37) Red Cell Distribution Width 20.2 % (11.5-14.5) Platelet Count 256 x10^3/uL (140-400) Neutrophils (%) (Auto) 77 % (31-73) Lymphocytes (%) (Auto) 10 % (24-48) Monocytes (%) (Auto) 11 % (0-9) Eosinophils (%) (Auto) 2 % (0-3) Basophils (%) (Auto) 0 % (0-3) Neutrophils # (Auto) 5.7 x10^3/uL (1.8-7.7) Lymphocytes # (Auto) 0.7 x10^3/uL (1.0-4.8) Monocytes # (Auto) 0.8 x10^3/uL (0.0-1.1) Eosinophils # (Auto) 0.2 x10^3/uL (0.0-0.7) Basophils # (Auto) 0.0 x10^3/uL (0.0-0.2) Sodium Level 142 mmol/L (136-145) Potassium Level 3.2 mmol/L (3.5-5.1) Chloride Level 105 mmol/L (98-107) Carbon Dioxide Level 22 mmol/L (21-32) Anion Gap 15 (6-14) Blood Urea Nitrogen 13 mg/dL (8-26) Creatinine 1.2 mg/dL (0.7-1.3) Estimated GFR (Cockcroft-Gault) 64.1 Glucose Level 217 mg/dL (70-99) Calcium Level 8.4 mg/dL (8.5-10.1) Lipase 421 U/L (73-393) Test 09/14/19 07:22 Glucose (Fingerstick) 191 mg/dL (70-99) Assessment and Plan Assessmemt and Plan Problems Medical Problems: (1) Acute kidney injury Status: Acute (2) Dehydration Status: Acute Comment Review of Relevant I have reviewed the following items blaze (where applicable) has been applied. Labs Laboratory Tests Test 09/12/19 12:02 09/12/19 18:07 09/13/19 03:55 09/13/19 07:11 Glucose (Fingerstick) 182 mg/dL (70-99) 191 mg/dL (70-99) 219 mg/dL (70-99) White Blood Count 7.9 x10^3/uL (4.0-11.0) Red Blood Count 4.47 x10^6/uL (4.30-5.70) Hemoglobin 9.9 g/dL (13.0-17.5) Hematocrit 31.5 % (39.0-53.0) Mean Corpuscular Volume 71 fL (79-100) Mean Corpuscular Hemoglobin 22 pg (25-35) Mean Corpuscular Hemoglobin Concent 31 g/dL (31-37) Red Cell Distribution Width 20.1 % (11.5-14.5) Platelet Count 278 x10^3/uL (140-400) Neutrophils (%) (Auto) 83 % (31-73) Lymphocytes (%) (Auto) 8 % (24-48) Monocytes (%) (Auto) 8 % (0-9) Eosinophils (%) (Auto) 0 % (0-3) Basophils (%) (Auto) 0 % (0-3) Neutrophils # (Auto) 6.6 x10^3/uL (1.8-7.7) Lymphocytes # (Auto) 0.7 x10^3/uL (1.0-4.8) Monocytes # (Auto) 0.7 x10^3/uL (0.0-1.1) Eosinophils # (Auto) 0.0 x10^3/uL (0.0-0.7) Basophils # (Auto) 0.0 x10^3/uL (0.0-0.2) Sodium Level 139 mmol/L (136-145) Potassium Level 3.6 mmol/L (3.5-5.1) Chloride Level 102 mmol/L (98-107) Carbon Dioxide Level 21 mmol/L (21-32) Anion Gap 16 (6-14) Blood Urea Nitrogen 23 mg/dL (8-26) Creatinine 1.6 mg/dL (0.7-1.3) Estimated GFR (Cockcroft-Gault) 46.0 Glucose Level 270 mg/dL (70-99) Calcium Level 8.8 mg/dL (8.5-10.1) Lipase 564 U/L (73-393) Test 09/13/19 11:49 09/13/19 16:39 09/13/19 20:20 09/14/19 03:35 Glucose (Fingerstick) 219 mg/dL (70-99) 224 mg/dL (70-99) 240 mg/dL (70-99) White Blood Count 7.4 x10^3/uL (4.0-11.0) Red Blood Count 4.18 x10^6/uL (4.30-5.70) Hemoglobin 9.3 g/dL (13.0-17.5) Hematocrit 29.7 % (39.0-53.0) Mean Corpuscular Volume 71 fL (79-100) Mean Corpuscular Hemoglobin 22 pg (25-35) Mean Corpuscular Hemoglobin Concent 31 g/dL (31-37) Red Cell Distribution Width 20.2 % (11.5-14.5) Platelet Count 256 x10^3/uL (140-400) Neutrophils (%) (Auto) 77 % (31-73) Lymphocytes (%) (Auto) 10 % (24-48) Monocytes (%) (Auto) 11 % (0-9) Eosinophils (%) (Auto) 2 % (0-3) Basophils (%) (Auto) 0 % (0-3) Neutrophils # (Auto) 5.7 x10^3/uL (1.8-7.7) Lymphocytes # (Auto) 0.7 x10^3/uL (1.0-4.8) Monocytes # (Auto) 0.8 x10^3/uL (0.0-1.1) Eosinophils # (Auto) 0.2 x10^3/uL (0.0-0.7) Basophils # (Auto) 0.0 x10^3/uL (0.0-0.2) Sodium Level 142 mmol/L (136-145) Potassium Level 3.2 mmol/L (3.5-5.1) Chloride Level 105 mmol/L (98-107) Carbon Dioxide Level 22 mmol/L (21-32) Anion Gap 15 (6-14) Blood Urea Nitrogen 13 mg/dL (8-26) Creatinine 1.2 mg/dL (0.7-1.3) Estimated GFR (Cockcroft-Gault) 64.1 Glucose Level 217 mg/dL (70-99) Calcium Level 8.4 mg/dL (8.5-10.1) Lipase 421 U/L (73-393) Test 09/14/19 07:22 Glucose (Fingerstick) 191 mg/dL (70-99) Laboratory Tests Test 09/13/19 11:49 09/13/19 16:39 09/13/19 20:20 09/14/19 03:35 Glucose (Fingerstick) 219 mg/dL (70-99) 224 mg/dL (70-99) 240 mg/dL (70-99) White Blood Count 7.4 x10^3/uL (4.0-11.0) Red Blood Count 4.18 x10^6/uL (4.30-5.70) Hemoglobin 9.3 g/dL (13.0-17.5) Hematocrit 29.7 % (39.0-53.0) Mean Corpuscular Volume 71 fL (79-100) Mean Corpuscular Hemoglobin 22 pg (25-35) Mean Corpuscular Hemoglobin Concent 31 g/dL (31-37) Red Cell Distribution Width 20.2 % (11.5-14.5) Platelet Count 256 x10^3/uL (140-400) Neutrophils (%) (Auto) 77 % (31-73) Lymphocytes (%) (Auto) 10 % (24-48) Monocytes (%) (Auto) 11 % (0-9) Eosinophils (%) (Auto) 2 % (0-3) Basophils (%) (Auto) 0 % (0-3) Neutrophils # (Auto) 5.7 x10^3/uL (1.8-7.7) Lymphocytes # (Auto) 0.7 x10^3/uL (1.0-4.8) Monocytes # (Auto) 0.8 x10^3/uL (0.0-1.1) Eosinophils # (Auto) 0.2 x10^3/uL (0.0-0.7) Basophils # (Auto) 0.0 x10^3/uL (0.0-0.2) Sodium Level 142 mmol/L (136-145) Potassium Level 3.2 mmol/L (3.5-5.1) Chloride Level 105 mmol/L (98-107) Carbon Dioxide Level 22 mmol/L (21-32) Anion Gap 15 (6-14) Blood Urea Nitrogen 13 mg/dL (8-26) Creatinine 1.2 mg/dL (0.7-1.3) Estimated GFR (Cockcroft-Gault) 64.1 Glucose Level 217 mg/dL (70-99) Calcium Level 8.4 mg/dL (8.5-10.1) Lipase 421 U/L (73-393) Test 09/14/19 07:22 Glucose (Fingerstick) 191 mg/dL (70-99) Microbiology 09/10/19 Blood Culture - Preliminary, Resulted NO GROWTH AFTER 3 DAYS Medications Current Medications Sodium Chloride 1,000 ml @ 0 mls/hr 1X ONCE IV Last administered on 09/10/19at 11:06; Start 09/10/19 at 11:00; Stop 09/10/19 at 11:01; Status DC Ondansetron HCl (Zofran) 4 mg 1X ONCE IVP Last administered on 09/10/19at 11:06; Start 09/10/19 at 11:00; Stop 09/10/19 at 11:01; Status DC Sodium Chloride (Normal Saline Flush) 3 ml QSHIFT PRN IV AFTER MEDS AND BLOOD DRAWS Last administered on 09/10/19at 13:54; Start 09/10/19 at 13:15 Sodium Chloride 1,000 ml @ 100 mls/hr Q10H IV Last administered on 09/14/19at 02:05; Start 09/10/19 at 13:05 Ondansetron HCl (Zofran) 4 mg PRN Q4HRS PRN IV NAUSEA/VOMITING Last administered on 09/11/19at 23:41; Start 09/10/19 at 13:15 Acetaminophen (Tylenol Supp) 650 mg PRN Q4HRS PRN PA TEMP OVER 100.4F OR MILD PAIN; Start 09/10/19 at 13:15 Clonidine HCl (Catapres) 0.1 mg PRN Q6HRS PRN PO SBP>160 OR DBP>90; Start 09/10/19 at 13:15 Docusate Sodium (Colace) 100 mg PRN BID PRN PO HARD STOOLS; Start 09/10/19 at 13:15 Albuterol/ Ipratropium (Duoneb) 3 ml Q4HRS NEB ; Start 09/10/19 at 16:00; Stop 09/10/19 at 19:57; Status DC Enoxaparin Sodium (Lovenox 40mg Syringe) 40 mg Q24H SQ Last administered on 09/12/19at 15:46; Start 09/10/19 at 15:00 Piperacillin Sod/ Tazobactam Sod 3.375 gm/Sodium Chloride 50 ml @ 100 mls/hr Q6HRS IV Last administered on 09/14/19at 06:16; Start 09/10/19 at 16:00 Insulin Human Regular 100 unit/ Sodium Chloride 101 ml @ 0 mls/hr CONT PRN IV SEE I/O RECORD Last administered on 09/10/19at 21:21; Start 09/10/19 at 13:15 Dextrose (Dextrose 50%-Water Syringe) 12.5 gm PRN Q15MIN PRN IV LOW BLOOD SUGAR; Start 09/10/19 at 13:15; Stop 09/10/19 at 21:06; Status DC Dextrose (Iv Dextrose 5%) 250 ml PRN Q15MIN PRN IV LOW BLOOD SUGAR; Start 09/10/19 at 13:15 Insulin Human Regular 0 ml @ As Directed STK-MED ONCE IV ; Start 09/10/19 at 13:47; Stop 09/10/19 at 13:47; Status DC Pantoprazole Sodium (PROTONIX VIAL for IV PUSH) 40 mg DAILYAC IVP Last administered on 09/12/19at 07:56; Start 09/11/19 at 07:30; Stop 09/12/19 at 10:15; Status DC Prochlorperazine Edisylate (Compazine) 10 mg PRN Q6HRS PRN IV NAUSEA/VOMITING- 2ND CHOICE Last administered on 09/10/19at 15:53; Start 09/10/19 at 15:45 Hydralazine HCl (Apresoline Inj) 10 mg PRN Q4HRS PRN IVP ELEVATED BP, SEE COMMENTS Last administered on 09/13/19at 09:05; Start 09/10/19 at 15:45 Potassium Chloride/Water 100 ml @ 100 mls/hr Q1H IV Last administered on 09/10/19at 21:20; Start 09/10/19 at 18:00; Stop 09/10/19 at 20:59; Status DC Potassium Phosphate 13.6 mmol/Sodium Chloride 254.5333 ml @ 62.5 mls/hr 1X ONCE IV Last administered on 09/10/19at 18:24; Start 09/10/19 at 18:00; Stop 09/10/19 at 22:04; Status DC Albuterol Sulfate (Ventolin Neb Soln) 2.5 mg PRN Q4HRS PRN NEB WHEEZING; Start 09/10/19 at 20:00 Insulin Human Lispro (HumaLOG) 0-7 UNITS TIDWMEALS SQ Last administered on 09/11/19at 17:07; Start 09/11/19 at 08:00; Stop 09/11/19 at 18:15; Status DC Dextrose (Dextrose 50%-Water Syringe) 12.5 gm PRN Q15MIN PRN IV SEE COMMENTS; Start 09/10/19 at 21:15 Potassium Chloride/Water 100 ml @ 100 mls/hr Q1H IV Last administered on 09/11/19at 10:05; Start 09/11/19 at 07:00; Stop 09/11/19 at 08:59; Status DC Lidocaine (Lidoderm) 1 patch DAILY TP Last administered on 09/12/19at 07:57; Start 09/11/19 at 10:00 Lisinopril (Prinivil) 5 mg PRN DAILY PRN PO hypertension Last administered on 09/11/19 12:14; Start 09/11/19 at 09:45 Oxycodone/ Acetaminophen (Percocet 7.5/ 325) 1 tab PRN Q6HRS PRN PO MODERATE TO SEVERE PAIN Last administered on 09/13/19 17:30; Start 09/11/19 at 09:45; Stop 09/14/19 at 09:07; Status DC Clonazepam (KlonoPIN) 1 mg BID PO Last administered on 09/13/19 21:06; Start 09/11/19 at 10:00 Doxepin HCl (SINEquan) 300 mg QHS PO ; Start 09/11/19 at 21:00; Status Cancel [place] Carbonate (Lithobid) 300 mg BID PO Last administered on 09/13/19 21:06; Start 09/11/19 at 10:00 Metformin HCl (Glucophage) 1,000 mg BIDWMEALS PO ; Start 09/11/19 at 10:00; Stop 09/11/19 at 12:45; Status DC Tizanidine HCl (Zanaflex) 1 mg PRN TID PRN PO MUSCLE SPASTICITY Last administered on 09/13/19 12:11; Start 09/11/19 at 09:45 Linagliptin (Tradjenta) 5 mg DAILY PO Last administered on 09/13/19 09:04; Start 09/11/19 at 10:00 Miscellaneous (Lidoderm Patch Removal) 1 ea QHS MC Last administered on 09/13/19 21:00; Start 09/11/19 at 21:00 Non-Formulary Medication 2 ea QHS PO Last administered on 09/13/19 21:06; Start 09/11/19 at 21:00 Insulin Human Lispro (HumaLOG) 0-7 UNITS QIDACHS SQ Last administered on 09/13/19 21:15; Start 09/11/19 at 21:00 Pantoprazole Sodium (Protonix) 40 mg DAILYAC PO Last administered on 09/13/19 09:04; Start 09/13/19 at 07:30 Lactobacillus Rhamnosus (Culturelle) 1 cap BID PO Last administered on 6/4/20at 21:06; Start 09/12/19 at 21:00 Guaifenesin (Robitussin Dm) 10 ml PRN Q4HRS PRN PO COUGH Last administered on 09/13/19at 17:29; Start 09/13/19 at 13:00 Iohexol (Omnipaque 240 Mg/ml) 30 ml 1X ONCE PO Last administered on 09/13/19at 13:30; Start 09/13/19 at 13:30; Stop 09/13/19 at 13:31; Status DC Iohexol (Omnipaque 300 Mg/ml) 60 ml 1X ONCE IV Last administered on 09/13/19at 13:30; Start 09/13/19 at 13:30; Stop 09/13/19 at 13:31; Status DC Info (CONTRAST GIVEN -- Rx MONITORING) 1 each PRN DAILY PRN MC SEE COMMENTS; Start 09/13/19 at 13:45; Stop 09/15/19 at 13:44 Rocuronium [place] (Zemuron) 50 mg STK-MED ONCE .ROUTE ; Start 09/14/19 at 07:14; Stop 09/14/19 at 07:15; Status DC Sevoflurane (Ultane) 90 ml STK-MED ONCE IH ; Start 09/14/19 at 07:15; Stop 09/14/19 at 07:15; Status DC Propofol (Diprivan) 200 mg STK-MED ONCE IV ; Start 09/14/19 at 07:15; Stop 09/14/19 at 07:15; Status DC Ondansetron HCl (Zofran) 4 mg STK-MED ONCE .ROUTE ; Start 09/14/19 at 07:15; Stop 09/14/19 at 07:15; Status DC Lidocaine HCl (Lidocaine Pf 2% Vial) 5 ml STK-MED ONCE .ROUTE ; Start 09/14/19 at 07:15; Stop 09/14/19 at 07:15; Status DC Dexamethasone Sodium Phosphate (Decadron) 4 mg STK-MED ONCE .ROUTE ; Start 09/14/19 at 07:15; Stop 09/14/19 at 07:15; Status DC Iohexol (Omnipaque 300 Mg/ml) 50 ml STK-MED ONCE .ROUTE Last administered on 09/14/19at 08:11; Start 09/14/19 at 07:17; Stop 09/14/19 at 07:17; Status DC Cellulose (Surgicel Hemostat 4x8) 1 each STK-MED ONCE .ROUTE ; Start 09/14/19 at 07:17; Stop 09/14/19 at 07:17; Status DC Bupivacaine HCl (Sensorcaine Mpf 0.5%) 30 ml STK-MED ONCE .ROUTE Last administered on 09/14/19at 08:06; Start 09/14/19 at 07:17; Stop 09/14/19 at 07:18; Status DC Ondansetron HCl (Zofran) 4 mg PRN Q6HRS PRN IV NAUSEA/VOMITING; Start 09/14/19 at 07:30; Stop 09/15/19 at 07:29 Fentanyl Citrate (Fentanyl 2ml Vial) 25 mcg PRN Q5MIN PRN IV MILD PAIN 1-3; Start 09/14/19 at 07:30; Stop 09/15/19 at 07:29 Fentanyl Citrate (Fentanyl 2ml Vial) 50 mcg PRN Q5MIN PRN IV MODERATE TO SEVERE PAIN; Start 09/14/19 at 07:30; Stop 09/15/19 at 07:29 Morphine Sulfate (Morphine Sulfate) 1 mg PRN Q10MIN PRN IV SEVERE PAIN 7-10; Start 09/14/19 at 07:30; Stop 09/15/19 at 07:29 Ringer's Solution 1,000 ml @ 30 mls/hr Q24H IV ; Start 09/14/19 at 07:21; Stop 09/14/19 at 19:20 Hydromorphone HCl (Dilaudid) 0.5 mg PRN Q10MIN PRN IV SEV PAIN, Second choice; Start 09/14/19 at 07:30; Stop 09/15/19 at 07:29 Prochlorperazine Edisylate (Compazine) 5 mg PACU PRN PRN IV NAUSEA, MRX1; Start 09/14/19 at 07:30; Stop 09/15/19 at 07:29 Rocuronium [place] (Zemuron) 50 mg STK-MED ONCE .ROUTE ; Start 09/14/19 at 07:26; Stop 09/14/19 at 07:27; Status DC Fentanyl Citrate (Fentanyl 2ml Vial) 100 mcg STK-MED ONCE .ROUTE ; Start 09/14/19 at 07:27; Stop 09/14/19 at 07:27; Status DC Glycopyrrolate (Robinul) 1 mg STK-MED ONCE .ROUTE ; Start 09/14/19 at 07:31; Stop 09/14/19 at 07:32; Status DC Neostigmine [place] (Neostigmine Methylsulfate) 5 mg STK-MED ONCE .ROUTE ; Start 09/14/19 at 07:31; Stop 09/14/19 at 07:32; Status DC Phenylephrine HCl (PHENYLEPHRINE in 0.9% NACL PF) 1 mg STK-MED ONCE IV ; Start 09/14/19 at 08:13; Stop 09/14/19 at 08:13; Status DC Ephedrine Sulfate (ePHEDrine PF IN SALINE SYRINGE) 50 mg STK-MED ONCE IV ; Start 09/14/19 at 08:16; Stop 09/14/19 at 08:16; Status DC Vasopressin (Vasostrict) 20 unit STK-MED ONCE .ROUTE ; Start 09/14/19 at 08:17; Stop 09/14/19 at 08:18; Status DC Fentanyl Citrate (Fentanyl 2ml Vial) 100 mcg STK-MED ONCE .ROUTE ; Start 09/14/19 at 08:55; Stop 09/14/19 at 08:55; Status DC Oxycodone/ Acetaminophen (Percocet 5/325) 1 tab PRN Q4HRS PRN PO PAIN; Start 09/14/19 at 09:15 Oxycodone/ Acetaminophen (Percocet 5/325) 2 tab PRN Q4HRS PRN PO SEVERE PAIN; Start 09/14/19 at 09:15 Active Scripts Active Reported Doxycycline Hyclate 100 Mg Capsule 100 Mg PO BID Clindamycin Hcl 300 Mg Capsule 600 Mg PO BID Lidocaine PATCH (Lidocaine) 1 Each Adh..patch 1 Each TP DAILY REMOVE AFTER 12 HOURS Lisinopril 5 Mg Tablet 1 Tab PO DAILY PRN Percocet 7.5-325 Mg Tablet (Oxycodone/Acetaminophen) 1 Each Tablet 1 Tab PO PRN Q6HRS PRN Clonazepam 1 Mg Tablet 1 Mg PO BID [place] Carbonate 300 Mg Tablet 1 Tab PO BID Zanaflex (Tizanidine Hcl) 4 Mg Capsule 1 Cap PO TID PRN Janumet 50-1,000 Mg Tablet (Sitagliptin Phos/Metformin Hcl) 1 Each Tablet 1 Tab PO BID Doxepin Hcl 50 Mg Capsule 300 Mg PO HS Vitals/I & O Vital Sign - Last 24 Hours 09/13/19 09/13/19 09/13/19 09/13/19 11:00 15:00 17:30 18:30 Temp 97.9 97.9 97.9 97.9 Pulse 107 98 Resp 18 18 B/P (MAP) 154/84 (107) 154/82 (106) Pulse Ox 99 99 O2 Delivery Room Air Room Air Room Air Room Air 09/13/19 09/13/19 09/14/19 09/14/19 19:00 23:00 03:00 07:45 Temp 98.6 98.1 98.0 98.0 98.6 98.1 98.0 98.0 Pulse 94 96 89 89 Resp 18 18 18 15 B/P (MAP) 174/94 (120) 152/88 (109) 172/90 (117) 149/86 Pulse Ox 96 96 97 97 O2 Delivery Room Air Room Air Room Air Room Air O2 Flow Rate 3.0 Intake and Output 09/13/19 09/13/19 09/14/19 15:00 23:00 07:00 Intake Total 800 ml 2640 ml Balance 800 ml 2640 ml Nutrition Consultation Dietary Evaluation: Recommendations by RD: Dietary education by RD, Increase Calorie Intake, Protein supplementation Comments: Advance diet per surgery, goal diet caridac/ADA w/supplements per pt preference REC short-term non-oral nutrition (PPN or dobhoff/TFs) if unable to advance diet REC J[place], MVI for wound healing (dehisced incision) Expected Outcomes/Goals: diet advancement - not met, goal ongoing Interpretation of weight loss: >7.5% in 3 months Malnutrition Findings: Food and Nutrition Intake (Sev: <50% est energy req 5days Weight Status: Obese JAMAL MORRIS MD Sep 14, 2019 09:10
[2019-09-14] MEDS ORDERED: oxyCODONE/APAP 5/325 1 TAB TABLET PO PRN (09:15)
[2019-09-14] MEDS ORDERED: INSULIN LISPRO 100 UNIT/ML 3ML VIAL for OP,RR ONLY. SQ PRN (09:45)
--- NOTE | 2019-09-14 10:35 | PDOC ---
Objective: Vital Signs: Vital Signs Date Time Temp Pulse Resp B/P (MAP) Pulse Ox O2 Delivery O2 Flow Rate FiO2 09/14/19 09:55 98.6 97 18 144/75 100 Nasal Cannula 2 98.6 Labs: Laboratory Tests Test 09/13/19 11:49 09/13/19 16:39 09/13/19 20:20 09/14/19 03:35 Glucose (Fingerstick) 219 mg/dL 224 mg/dL 240 mg/dL White Blood Count 7.4 x10^3/uL Red Blood Count 4.18 x10^6/uL Hemoglobin 9.3 g/dL Hematocrit 29.7 % Mean Corpuscular Volume 71 fL Mean Corpuscular Hemoglobin 22 pg Mean Corpuscular Hemoglobin Concent 31 g/dL Red Cell Distribution Width 20.2 % Platelet Count 256 x10^3/uL Neutrophils (%) (Auto) 77 % Lymphocytes (%) (Auto) 10 % Monocytes (%) (Auto) 11 % Eosinophils (%) (Auto) 2 % Basophils (%) (Auto) 0 % Neutrophils # (Auto) 5.7 x10^3/uL Lymphocytes # (Auto) 0.7 x10^3/uL Monocytes # (Auto) 0.8 x10^3/uL Eosinophils # (Auto) 0.2 x10^3/uL Basophils # (Auto) 0.0 x10^3/uL Sodium Level 142 mmol/L Potassium Level 3.2 mmol/L Chloride Level 105 mmol/L Carbon Dioxide Level 22 mmol/L Anion Gap 15 Blood Urea Nitrogen 13 mg/dL Creatinine 1.2 mg/dL Estimated GFR (Cockcroft-Gault) 64.1 Glucose Level 217 mg/dL Calcium Level 8.4 mg/dL Lipase 421 U/L Test 09/14/19 07:22 09/14/19 09:28 Glucose (Fingerstick) 191 mg/dL 216 mg/dL Imaging: CT A/P 09/12 IMPRESSION 1. Acute pancreatitis with probable edema at the pancreatic neck. No definite findings of parenchymal necrosis and no evidence of abscess formation on contrast enhanced imaging. 2. Similar patchy airspace opacities in the left lung, favored sequelae of aspiration or atypical pneumonia. IOC 09/13 pending PE: out of room A/P: Gallstone pancreatitis -- Out for cholecystectomy, will follow. Justicifation of Admission Dx: Justifications for Admission: Justification of Admission Dx: Yes Comminuty Aquired Pneumonia: Hemodynamic Instability Acute Renal Failure: RF Can't Be Managed Outpt Sepsis: Dehydration ADAN PEREZ Sep 14, 2019 10:35
--- NOTE | 2019-09-14 10:37 | NUR ---
Patient returned from surgery at approximately 1021.
--- NOTE | 2019-09-14 10:55 | PDOC ---
SUBJECTIVE ROS stable OBJECTIVE Vital Signs Vital Signs Date Time Temp Pulse Resp B/P (MAP) Pulse Ox O2 Delivery O2 Flow Rate FiO2 09/14/19 10:21 98.1 101 20 160/91 (114) 100 Room Air 98.1 09/14/19 09:55 2 I & 0 Intake and Output 09/14/19 07:00 Intake Total 3440 ml Balance 3440 ml Intake Oral 1040 ml IV Total 1200 ml Other 1200 ml # Voids 1 PHYSICAL EXAM Physical Exam General: NAD HEENT: OM moist Neck Supple Lungs: Clear to auscultation, Non labored Heart: RRR Abdomen: soft Extremities: No cyanosis, No LE edema Neuro: Grossly normal Psych/Mental Status: Mental status NL, Mood NL No barr, No SP or CVA tenderness DIAGNOSIS/ASSESSMENT Assessment & Plan JAQUAN - ATN 2/2 dehydration- Intractable N/V Vomiting Good UOP, improving renal function- peaked at 2.2 --> Cr 1.2 Supportive care, Strict I/O, avoid nephrotoxins HypoKalemia-Replace Renal Cyst - Lt kidney per CT report - Partially mineralized nodule off the medial pole of the left kidney measuring around 1 cm. A calcified cyst would be the most likely etiology Consider 3-6 month ultrasound follow-up to assess for any change. Punctate nonobstructing intrarenal stone at the upper pole of the right kidney Acute Gall stone pancreatitis - Non alcoholic, GI following Cholelithiasis - s/p Laparoscopic cholecystectomy with intraoperative cholangiogram earlier today DM - Uncontrolled , No Diabetic Retinopathy per history UA with Overt proteinuria, suspect 2/2 DM , On Low dose Lisinopril per home meds , Pr/Cr Non nephrotic 1.3 gms HTN - antihypertensives Anemia- Hgb dropped since presentation , per primary Hx of Bipolar- Per Home list on [place], levels <0.2 COMMENT/RELEVANT DATA Meds Current Medications Medications (Trade) Dose Ordered Sig/[place]il[place] Start Time Stop Time Status Last Admin Dose Admin Acetaminophen (Tylenol Supp) 650 mg PRN Q4HRS PRN 09/10/19 13:15 Albuterol Sulfate (Ventolin Neb Soln) 2.5 mg PRN Q4HRS PRN 09/10/19 20:00 Albuterol/ Ipratropium (Duoneb) 3 ml Q4HRS 09/10/19 16:00 09/10/19 19:57 DC Bupivacaine HCl (Sensorcaine Mpf 0.5%) 30 ml STK-MED ONCE 09/14/19 07:17 09/14/19 07:18 DC 09/14/19 08:06 10 ML Cellulose (Surgicel Hemostat 4x8) 1 each STK-MED ONCE 09/14/19 07:17 09/14/19 07:17 DC Clonazepam (KlonoPIN) 1 mg BID 09/11/19 10:00 09/13/19 21:06 1 MG Clonidine HCl (Catapres) 0.1 mg PRN Q6HRS PRN 09/10/19 13:15 Dexamethasone Sodium Phosphate (Decadron) 4 mg STK-MED ONCE 09/14/19 07:15 09/14/19 07:15 DC Dextrose (Dextrose 50%-Water Syringe) 12.5 gm PRN Q15MIN PRN 09/10/19 21:15 Dextrose (Iv Dextrose 5%) 250 ml PRN Q15MIN PRN 09/10/19 13:15 Docusate Sodium (Colace) 100 mg PRN BID PRN 09/10/19 13:15 Doxepin HCl (SINEquan) 300 mg QHS 09/11/19 21:00 Cancel Enoxaparin Sodium (Lovenox 40mg Syringe) 40 mg Q24H 09/10/19 15:00 09/12/19 15:46 40 MG Ephedrine Sulfate (ePHEDrine PF IN SALINE SYRINGE) 50 mg STK-MED ONCE 09/14/19 08:16 09/14/19 08:16 DC Fentanyl Citrate (Fentanyl 2ml Vial) 100 mcg STK-MED ONCE 09/14/19 08:55 09/14/19 08:55 DC Glycopyrrolate (Robinul) 1 mg STK-MED ONCE 09/14/19 07:31 09/14/19 07:32 DC Guaifenesin (Robitussin Dm) 10 ml PRN Q4HRS PRN 09/13/19 13:00 09/13/19 17:29 10 ML Hydralazine HCl (Apresoline Inj) 10 mg PRN Q4HRS PRN 09/10/19 15:45 09/13/19 09:05 10 MG Hydromorphone HCl (Dilaudid) 0.5 mg PRN Q10MIN PRN 09/14/19 07:30 09/15/19 07:29 Info (CONTRAST GIVEN -- Rx MONITORING) 1 each PRN DAILY PRN 09/13/19 13:45 09/15/19 13:44 Insulin Human Lispro (HumaLOG VIAL for OP,RR ONLY) 0-10 units PRN Q1HR PRN 09/14/19 09:45 09/15/19 09:44 09/14/19 09:45 6 UNIT Insulin Human Lispro (HumaLOG) 0-7 UNITS QIDACHS 09/11/19 21:00 09/13/19 21:15 2 UNITS Insulin Human Regular 0 ml @ As Directed STK-MED ONCE 09/10/19 13:47 09/10/19 13:47 DC Insulin Human Regular 100 unit/ Sodium Chloride 101 ml @ 0 mls/hr CONT PRN 09/10/19 13:15 09/10/19 21:21 5.4 MLS/HR Iohexol (Omnipaque 240 Mg/ml) 30 ml 1X ONCE 09/13/19 13:30 09/13/19 13:31 DC 09/13/19 13:30 30 ML Iohexol (Omnipaque 300 Mg/ml) 50 ml STK-MED ONCE 09/14/19 07:17 09/14/19 07:17 DC 09/14/19 08:11 2 ML Lactobacillus Rhamnosus (Culturelle) 1 cap BID 09/12/19 21:00 09/13/19 21:06 1 CAP Lidocaine (Lidoderm) 1 patch DAILY 09/11/19 10:00 09/12/19 07:57 1 PATCH Lidocaine HCl (Lidocaine Pf 2% Vial) 5 ml STK-MED ONCE 09/14/19 07:15 09/14/19 07:15 DC Linagliptin (Tradjenta) 5 mg DAILY 09/11/19 10:00 09/13/19 09:04 5 MG Lisinopril (Prinivil) 5 mg PRN DAILY PRN 09/11/19 09:45 09/11/19 12:14 5 MG [place] Carbonate (Lithobid) 300 mg BID 09/11/19 10:00 09/13/19 21:06 300 MG Metformin HCl (Glucophage) 1,000 mg BIDWMEALS 09/11/19 10:00 09/11/19 12:45 DC Miscellaneous (Lidoderm Patch Removal) 1 ea QHS 09/11/19 21:00 09/13/19 21:00 1 EA Morphine Sulfate (Morphine Sulfate) 1 mg PRN Q10MIN PRN 09/14/19 07:30 09/15/19 07:29 Neostigmine [place] (Neostigmine Methylsulfate) 5 mg STK-MED ONCE 09/14/19 07:31 09/14/19 07:32 DC Non-Formulary Medication 2 ea QHS 09/11/19 21:00 09/13/19 21:06 2 EA Ondansetron HCl (Zofran) 4 mg PRN Q6HRS PRN 09/14/19 07:30 09/15/19 07:29 Oxycodone/ Acetaminophen (Percocet 5/325) 2 tab PRN Q4HRS PRN 09/14/19 09:15 Oxycodone/ Acetaminophen (Percocet 7.5/ 325) 1 tab PRN Q6HRS PRN 09/11/19 09:45 09/14/19 09:07 DC 09/13/19 17:30 1 TAB Pantoprazole Sodium (PROTONIX VIAL for IV PUSH) 40 mg DAILYAC 09/11/19 07:30 09/12/19 10:15 DC 09/12/19 07:56 40 MG Pantoprazole Sodium (Protonix) 40 mg DAILYAC 09/13/19 07:30 09/13/19 09:04 40 MG Phenylephrine HCl (PHENYLEPHRINE in 0.9% NACL PF) 1 mg STK-MED ONCE 09/14/19 08:13 09/14/19 08:13 DC Piperacillin Sod/ Tazobactam Sod 3.375 gm/Sodium Chloride 50 ml @ 100 mls/hr Q6HRS 09/10/19 16:00 09/14/19 06:16 100 MLS/HR Potassium Chloride/Water 100 ml @ 100 mls/hr Q1H 09/11/19 07:00 09/11/19 08:59 DC 09/11/19 10:05 100 MLS/HR Potassium Phosphate 13.6 mmol/Sodium Chloride 254.5333 ml @ 62.5 mls/hr 1X ONCE 09/10/19 18:00 09/10/19 22:04 DC 09/10/19 18:24 62.5 MLS/HR Prochlorperazine Edisylate (Compazine) 5 mg PACU PRN PRN 09/14/19 07:30 09/15/19 07:29 Propofol (Diprivan) 200 mg STK-MED ONCE 09/14/19 07:15 09/14/19 07:15 DC Ringer's Solution 1,000 ml @ 30 mls/hr Q24H 09/14/19 07:21 09/14/19 19:20 Rocuronium [place] (Zemuron) 50 mg STK-MED ONCE 09/14/19 07:26 09/14/19 07:27 DC Sevoflurane (Ultane) 90 ml STK-MED ONCE 09/14/19 07:15 09/14/19 07:15 DC Sodium Chloride 1,000 ml @ 100 mls/hr Q10H 09/10/19 13:05 09/14/19 02:05 100 MLS/HR Sodium Chloride (Normal Saline Flush) 3 ml QSHIFT PRN 09/10/19 13:15 09/10/19 13:54 3 ML Tizanidine HCl (Zanaflex) 1 mg PRN TID PRN 09/11/19 09:45 09/13/19 12:11 1 MG Vasopressin (Vasostrict) 20 unit STK-MED ONCE 09/14/19 08:17 09/14/19 08:18 DC Lab Laboratory Tests Test 09/13/19 11:49 09/13/19 16:39 09/13/19 20:20 09/14/19 03:35 Glucose (Fingerstick) 219 mg/dL (70-99) 224 mg/dL (70-99) 240 mg/dL (70-99) White Blood Count 7.4 x10^3/uL (4.0-11.0) Red Blood Count 4.18 x10^6/uL (4.30-5.70) Hemoglobin 9.3 g/dL (13.0-17.5) Hematocrit 29.7 % (39.0-53.0) Mean Corpuscular Volume 71 fL (79-100) Mean Corpuscular Hemoglobin 22 pg (25-35) Mean Corpuscular Hemoglobin Concent 31 g/dL (31-37) Red Cell Distribution Width 20.2 % (11.5-14.5) Platelet Count 256 x10^3/uL (140-400) Neutrophils (%) (Auto) 77 % (31-73) Lymphocytes (%) (Auto) 10 % (24-48) Monocytes (%) (Auto) 11 % (0-9) Eosinophils (%) (Auto) 2 % (0-3) Basophils (%) (Auto) 0 % (0-3) Neutrophils # (Auto) 5.7 x10^3/uL (1.8-7.7) Lymphocytes # (Auto) 0.7 x10^3/uL (1.0-4.8) Monocytes # (Auto) 0.8 x10^3/uL (0.0-1.1) Eosinophils # (Auto) 0.2 x10^3/uL (0.0-0.7) Basophils # (Auto) 0.0 x10^3/uL (0.0-0.2) Sodium Level 142 mmol/L (136-145) Potassium Level 3.2 mmol/L (3.5-5.1) Chloride Level 105 mmol/L (98-107) Carbon Dioxide Level 22 mmol/L (21-32) Anion Gap 15 (6-14) Blood Urea Nitrogen 13 mg/dL (8-26) Creatinine 1.2 mg/dL (0.7-1.3) Estimated GFR (Cockcroft-Gault) 64.1 Glucose Level 217 mg/dL (70-99) Calcium Level 8.4 mg/dL (8.5-10.1) Lipase 421 U/L (73-393) Test 09/14/19 07:22 09/14/19 09:28 Glucose (Fingerstick) 191 mg/dL (70-99) 216 mg/dL (70-99) Results All relevant outside records, renal labs, imaging studies, telemetry/EKG's were reviewed. Justicifation of Admission Dx: Justifications for Admission: Justification of Admission Dx: Yes Comminuty Aquired Pneumonia: Hemodynamic Instability Acute Renal Failure: RF Can't Be Managed Outpt Sepsis: Dehydration NIALL PAINTER MD Sep 14, 2019 10:55
[2019-09-14] MEDS: LACTOBACILLUS RHAMNOSUS GG 1 CAPSULE. PO SCH ×2 (11:15→21:15)
[2019-09-14] MEDS: PANTOPRAZOLE 40 MG TABLET.DR. PO SCH (11:15)
[2019-09-14] MEDS: clonazePAM 0.5 MG TABLET PO SCH ×2 (11:15→21:15)
[2019-09-14] MEDS: LITHIUM CARBONATE ER 300 MG TABLET.ER PO SCH ×2 (11:16→21:15)
[2019-09-14] MEDS: LIDOCAINE (700MG/PATCH) PATCH. TP SCH (11:16)
[2019-09-14] MEDS: LINAGLIPTIN 5 MG TABLET PO SCH (11:16)
[2019-09-14] MEDS: oxyCODONE/APAP 5/325 1 TAB TABLET PO PRN ×2 (11:18→18:02)
[2019-09-14] MEDS: guaiFENesin DM 200MG/20MG 10 ML SYRUP PO PRN (11:25)
--- NOTE | 2019-09-14 11:36 | NUR ---
SW following. Chart reviewed, pt had surgery this morning. Pt on clear liquid diet. Abx can be switched to orals. SW will continue to follow for any discharge planning needs.
--- NOTE | 2019-09-14 13:15 | RAD ---
Intraoperative cholangiogram. INDICATION: Cholecystectomy. COMPARISON: Abdomen pelvis CT with IV contrast of 09/13/2019. FINDINGS: 2 intraoperative views of the right upper quadrant abdomen during cholangiography were obtained. Total fluoroscopy time was 0.2 minutes. They show cannulation of the cystic duct stump. Injection of contrast into the hepatobiliary tree showing no filling defects suspicious for retained stone in the common bile duct. There is drainage of contrast material into the duodenum. IMPRESSION: No residual filling defects in the hepatobiliary tree following cholecystectomy and no evidence of biliary obstruction or extravasation of injected contrast. Electronically signed by: Davidson Sauer MD (09/14/2019 1:12 PM) [id number]
[2019-09-14] MEDS: ENOXAPARIN 40 MG/0.4 ML SYRINGE. SQ SCH (15:00)
[2019-09-14] MEDS: PATCH REMOVAL. MC SCH (21:00)
--- NOTE | 2019-09-14 21:00 | NUR ---
No lidoderm patch on to remove
[2019-09-14] MEDS: DOXEPIN 150 MG PO SCH (21:14)
[2019-09-15 03:00] VITALS: BP 169/96
[2019-09-15] MEDS: PIPERACILLIN/TAZOBACTAM 3.375 GM in IV NORMAL SALINE 50ML 50 ML IV SCH (06:02)
[2019-09-15 07:00] VITALS: BP 136/97
[2019-09-15] MEDS: LIDOCAINE (700MG/PATCH) PATCH. TP SCH (07:44)
[2019-09-15] MEDS: PANTOPRAZOLE 40 MG TABLET.DR. PO SCH (09:02)
[2019-09-15] MEDS: LINAGLIPTIN 5 MG TABLET PO SCH (09:02)
[2019-09-15] MEDS: LACTOBACILLUS RHAMNOSUS GG 1 CAPSULE. PO SCH ×2 (09:02→21:15)
[2019-09-15] MEDS: clonazePAM 0.5 MG TABLET PO SCH ×2 (09:02→21:15)
[2019-09-15] MEDS: LITHIUM CARBONATE ER 300 MG TABLET.ER PO SCH ×2 (09:03→21:15)
[2019-09-15] MEDS: oxyCODONE/APAP 5/325 1 TAB TABLET PO PRN (09:03)
[2019-09-15] MEDS: INSULIN LISPRO 300 UNITS/3 ML VIAL. SQ SCH ×4 (09:11→21:00)
[2019-09-15] MEDS: IV NORMAL SALINE 1000ML BAG 1,000 ML IV SCH ×3 (09:11→22:48)
[2019-09-15 11:00] VITALS: BP 147/100
--- NOTE | 2019-09-15 11:05 | PDOC ---
PROGRESS NOTES Chief Complaint Chief Complaint IMPRESSION 1 Peripancreatic inflammatory changes compatible with acute pancreatitis. much of the gallbladder lumen is filled with gallstones and though no stone is definitively seen within the common bile duct, gallstone pancreatitis remains a consideration. 2. Ill-defined infiltrates involving the visualized left lower lung more so than the right. Sequela of aspiration or an atypical pneumonia may have this appearance. 3. mineralized nodule off the medial pole of the left kidney measuring around 1cm //calcified cyst would be the most likely etiology 4. hyperglycemia, uncontrolled nonketotic // diabetes 5. morbid obesity 6. intractable nausea, vomiting 7. JAQUAN 8. Pseudohyponatremia 9. hypokalemia, on replacement History of Present Illness History of Present Illness 09/15/2019 Patient seen and examined Chart reviewed Lipase is down into the 400s from the 700s 09/13 Laparoscopic cholecystectomy with intraoperative cholangiogram D./W RN Operative Note Operative Note Operative Note Operative Note: Preoperative Diagnosis: Gallstone pancreatitis Postoperative Diagnosis: Same Procedure: Laparoscopic cholecystectomy with intraoperative cholangiogram Surgeons: Quinton Maintenance Trainer: Aron WING Anesthesia: Gen. Estimated Blood Loss: 10 mL Specimen: Gallbladder to pathology Drains: None Complications: None Indications: The patient is a 49-year-old male who was admitted with prominent vomiting and abdominal pain. 09/11/2019 Patient seen and examined His mother is here helping (MARCUS Johnson) Discussed with RN Chart reviewed Called Dr. Isidro We have all agreed to put the patient on a clear liquid diet so he can take his home meds especially his psych meds Glucose is doing better at 120 Lipase was only 700 Patient clinically is doing okay but little depressed We are also going to consult infectious disease and orthopedics (he has a chronic knee infection and recent knee surgery) GI nurse practitioner Amelia just arrived to examine the patient as well Vitals Vitals Vital Signs Date Time Temp Pulse Resp B/P (MAP) Pulse Ox O2 Delivery O2 Flow Rate FiO2 09/15/19 10:03 Room Air 09/15/19 07:00 98.0 100 20 136/97 (110) 100 98.0 09/14/19 09:55 2 Physical Exam Physical Exam GENERAL: Alert, oriented gentleman, not in distress. VITAL SIGNS: Stable, afebrile. HEENT: NAD. NECK: Supple, no JVP, no lymphadenopathy. LUNGS: Clear. HEART: S1, S2 regular. ABDOMEN: Benign. EXTREMITIES: No edema, cyanosis. SKIN: Unremarkable except left knee, there is a small wound on to the knee which appears clean, healthy, red granulation tissue and no drainage. NEUROLOGIC: The patient is alert, awake and appropriate. No focal neurologic deficit. General: Alert, Oriented X3 Heart: Regular rate Lungs: Clear Abdomen: Soft, No tenderness Extremities: No clubbing, No cyanosis Skin: No rashes Labs LABS Laboratory Tests Test 09/14/19 11:27 09/14/19 16:37 09/14/19 21:02 09/15/19 07:26 Glucose (Fingerstick) 227 mg/dL (70-99) 203 mg/dL (70-99) 180 mg/dL (70-99) 174 mg/dL (70-99) Assessment and Plan Assessmemt and Plan Problems Medical Problems: (1) Acute kidney injury Status: Acute (2) Dehydration Status: Acute Comment Review of Relevant I have reviewed the following items blaze (where applicable) has been applied. Labs Laboratory Tests Test 09/13/19 11:49 09/13/19 16:39 09/13/19 20:20 09/14/19 03:35 Glucose (Fingerstick) 219 mg/dL (70-99) 224 mg/dL (70-99) 240 mg/dL (70-99) White Blood Count 7.4 x10^3/uL (4.0-11.0) Red Blood Count 4.18 x10^6/uL (4.30-5.70) Hemoglobin 9.3 g/dL (13.0-17.5) Hematocrit 29.7 % (39.0-53.0) Mean Corpuscular Volume 71 fL (79-100) Mean Corpuscular Hemoglobin 22 pg (25-35) Mean Corpuscular Hemoglobin Concent 31 g/dL (31-37) Red Cell Distribution Width 20.2 % (11.5-14.5) Platelet Count 256 x10^3/uL (140-400) Neutrophils (%) (Auto) 77 % (31-73) Lymphocytes (%) (Auto) 10 % (24-48) Monocytes (%) (Auto) 11 % (0-9) Eosinophils (%) (Auto) 2 % (0-3) Basophils (%) (Auto) 0 % (0-3) Neutrophils # (Auto) 5.7 x10^3/uL (1.8-7.7) Lymphocytes # (Auto) 0.7 x10^3/uL (1.0-4.8) Monocytes # (Auto) 0.8 x10^3/uL (0.0-1.1) Eosinophils # (Auto) 0.2 x10^3/uL (0.0-0.7) Basophils # (Auto) 0.0 x10^3/uL (0.0-0.2) Sodium Level 142 mmol/L (136-145) Potassium Level 3.2 mmol/L (3.5-5.1) Chloride Level 105 mmol/L (98-107) Carbon Dioxide Level 22 mmol/L (21-32) Anion Gap 15 (6-14) Blood Urea Nitrogen 13 mg/dL (8-26) Creatinine 1.2 mg/dL (0.7-1.3) Estimated GFR (Cockcroft-Gault) 64.1 Glucose Level 217 mg/dL (70-99) Calcium Level 8.4 mg/dL (8.5-10.1) Lipase 421 U/L (73-393) Test 09/14/19 07:22 09/14/19 09:28 09/14/19 11:27 09/14/19 16:37 Glucose (Fingerstick) 191 mg/dL (70-99) 216 mg/dL (70-99) 227 mg/dL (70-99) 203 mg/dL (70-99) Test 09/14/19 21:02 09/15/19 07:26 Glucose (Fingerstick) 180 mg/dL (70-99) 174 mg/dL (70-99) Laboratory Tests Test 09/14/19 11:27 09/14/19 16:37 09/14/19 21:02 09/15/19 07:26 Glucose (Fingerstick) 227 mg/dL (70-99) 203 mg/dL (70-99) 180 mg/dL (70-99) 174 mg/dL (70-99) Microbiology 09/10/19 Blood Culture - Preliminary, Resulted NO GROWTH AFTER 4 DAYS Medications Current Medications Sodium Chloride 1,000 ml @ 0 mls/hr 1X ONCE IV Last administered on 09/10/19at 11:06; Start 09/10/19 at 11:00; Stop 09/10/19 at 11:01; Status DC Ondansetron HCl (Zofran) 4 mg 1X ONCE IVP Last administered on 09/10/19at 11:06; Start 09/10/19 at 11:00; Stop 09/10/19 at 11:01; Status DC Sodium Chloride (Normal Saline Flush) 3 ml QSHIFT PRN IV AFTER MEDS AND BLOOD DRAWS Last administered on 09/10/19at 13:54; Start 09/10/19 at 13:15 Sodium Chloride 1,000 ml @ 100 mls/hr Q10H IV Last administered on 09/15/19at 09:11; Start 09/10/19 at 13:05 Ondansetron HCl (Zofran) 4 mg PRN Q4HRS PRN IV NAUSEA/VOMITING Last administered on 09/11/19at 23:41; Start 09/10/19 at 13:15 Acetaminophen (Tylenol Supp) 650 mg PRN Q4HRS PRN TX TEMP OVER 100.4F OR MILD PAIN; Start 09/10/19 at 13:15 Clonidine HCl (Catapres) 0.1 mg PRN Q6HRS PRN PO SBP>160 OR DBP>90; Start 09/10/19 at 13:15 Docusate Sodium (Colace) 100 mg PRN BID PRN PO HARD STOOLS; Start 09/10/19 at 13 :15 Albuterol/ Ipratropium (Duoneb) 3 ml Q4HRS NEB ; Start 09/10/19 at 16:00; Stop 09/10/19 at 19:57; Status DC Enoxaparin Sodium (Lovenox 40mg Syringe) 40 mg Q24H SQ Last administered on 09/12/19at 15:46; Start 09/10/19 at 15:00 Piperacillin Sod/ Tazobactam Sod 3.375 gm/Sodium Chloride 50 ml @ 100 mls/hr Q6HRS IV Last administered on 09/15/19at 06:02; Start 09/10/19 at 16:00; Stop 09/15/19 at 10:48; Status DC Insulin Human Regular 100 unit/ Sodium Chloride 101 ml @ 0 mls/hr CONT PRN IV SEE I/O RECORD Last administered on 09/10/19at 21:21; Start 09/10/19 at 13:15 Dextrose (Dextrose 50%-Water Syringe) 12.5 gm PRN Q15MIN PRN IV LOW BLOOD S UGAR; Start 09/10/19 at 13:15; Stop 09/10/19 at 21:06; Status DC Dextrose (Iv Dextrose 5%) 250 ml PRN Q15MIN PRN IV LOW BLOOD SUGAR; Start 09/10/19 at 13:15 Insulin Human Regular 0 ml @ As Directed STK-MED ONCE IV ; Start 09/10/19 at 13:47; Stop 09/10/19 at 13:47; Status DC Pantoprazole Sodium (PROTONIX VIAL for IV PUSH) 40 mg DAILYAC IVP Last administered on 09/12/19at 07:56; Start 09/11/19 at 07:30; Stop 09/12/19 at 10:15; Status DC Prochlorperazine Edisylate (Compazine) 10 mg PRN Q6HRS PRN IV NAUSEA/VOMITING- 2ND CHOICE Last administered on 09/10/19at 15:53; Start 09/10/19 at 15:45 Hydralazine HCl (Apresoline Inj) 10 mg PRN Q4HRS PRN IVP ELEVATED BP, SEE COMMENTS Last administered on 09/13/19at 09:05; Start 09/10/19 at 15:45 Potassium Chloride/Water 100 ml @ 100 mls/hr Q1H IV Last administered on 09/10/19at 21:20; Start 09/10/19 at 18:00; Stop 09/10/19 at 20:59; Status DC Potassium Phosphate 13.6 mmol/Sodium Chloride 254.5333 ml @ 62.5 mls/hr 1X ONCE IV Last administered on 09/10/19at 18:24; Start 09/10/19 at 18:00; Stop 09/10/19 at 22:04; Status DC Albuterol Sulfate (Ventolin Neb Soln) 2.5 mg PRN Q4HRS PRN NEB WHEEZING; Start 09/10/19 at 20:00 Insulin Human Lispro (HumaLOG) 0-7 UNITS TIDWMEALS SQ Last administered on 09/11/19at 17:07; Start 09/11/19 at 08:00; Stop 09/11/19 at 18:15; Status DC Dextrose (Dextrose 50%-Water Syringe) 12.5 gm PRN Q15MIN PRN IV SEE COMMENTS; Start 09/10/19 at 21:15 Potassium Chloride/Water 100 ml @ 100 mls/hr Q1H IV Last administered on 09/11/19at 10:05; Start 09/11/19 at 07:00; Stop 09/11/19 at 08:59; Status DC Lidocaine (Lidoderm) 1 patch DAILY TP Last administered on 09/12/19at 07:57; Start 09/11/19 at 10:00 Lisinopril (Prinivil) 5 mg PRN DAILY PRN PO hypertension Last administered on 09/11/19at 12:14; Start 09/11/19 at 09:45 Oxycodone/ Acetaminophen (Percocet 7.5/ 325) 1 tab PRN Q6HRS PRN PO MODERATE TO SEVERE PAIN Last administered on 09/13/19at 17:30; Start 09/11/19 at 09:45; Stop 09/14/19 at 09:07; Status DC Clonazepam (KlonoPIN) 1 mg BID PO Last administered on 09/15/19 09:02; Start 09/11/19 at 10:00 Doxepin HCl (SINEquan) 300 mg QHS PO ; Start 09/11/19 at 21:00; Status Cancel [place] Carbonate (Lithobid) 300 mg BID PO Last administered on 09/15/19at 09:03; Start 09/11/19 at 10:00 Metformin HCl (Glucophage) 1,000 mg BIDWMEALS PO ; Start 09/11/19 at 10:00; Stop 09/11/19 at 12:45; Status DC Tizanidine HCl (Zanaflex) 1 mg PRN TID PRN PO MUSCLE SPASTICITY Last administered on 09/13/19at 12:11; Start 09/11/19 at 09:45 Linagliptin (Tradjenta) 5 mg DAILY PO Last administered on 09/15/19at 09:02; Start 09/11/19 at 10:00 Miscellaneous (Lidoderm Patch Removal) 1 ea QHS MC Last administered on 09/13/19at 21:00; Start 09/11/19 at 21:00 Non-Formulary Medication 2 ea QHS PO Last administered on 09/14/19at 21:14; Start 09/11/19 at 21:00 Insulin Human Lispro (HumaLOG) 0-7 UNITS QIDACHS SQ Last administered on 09/15/19at 09:11; Start 09/11/19 at 21:00 Pantoprazole Sodium (Protonix) 40 mg DAILYAC PO Last administered on 09/15/19at 09:02; Start 09/13/19 at 07:30 Lactobacillus Rhamnosus (Culturelle) 1 cap BID PO Last administered on 09/15/19at 09:02; Start 09/12/19 at 21:00 Guaifenesin (Robitussin Dm) 10 ml PRN Q4HRS PRN PO COUGH Last administered on 09/14/19 11:25; Start 09/13/19 at 13:00 Iohexol (Omnipaque 240 Mg/ml) 30 ml 1X ONCE PO Last administered on 09/13/19at 13:30; Start 09/13/19 at 13:30; Stop 09/13/19 at 13:31; Status DC Iohexol (Omnipaque 300 Mg/ml) 60 ml 1X ONCE IV Last administered on 09/13/19at 13:30; Start 09/13/19 at 13:30; Stop 09/13/19 at 13:31; Status DC Info (CONTRAST GIVEN -- Rx MONITORING) 1 each PRN DAILY PRN MC SEE COMMENTS; Start 09/13/19 at 13:45; Stop 09/15/19 at 13:44 Rocuronium [place] (Zemuron) 50 mg STK-MED ONCE .ROUTE ; Start 09/14/19 at 07:14; Stop 09/14/19 at 07:15; Status DC Sevoflurane (Ultane) 90 ml STK-MED ONCE IH ; Start 09/14/19 at 07:15; Stop 0 at 07:15; Status DC Propofol (Diprivan) 200 mg STK-MED ONCE IV ; Start 09/14/19 at 07:15; Stop 09/14/19 at 07:15; Status DC Ondansetron HCl (Zofran) 4 mg STK-MED ONCE .ROUTE ; Start 09/14/19 at 07:15; Stop 09/14/19 at 07:15; Status DC Lidocaine HCl (Lidocaine Pf 2% Vial) 5 ml STK-MED ONCE .ROUTE ; Start 09/14/19 at 07:15; Stop 09/14/19 at 07:15; Status DC Dexamethasone Sodium Phosphate (Decadron) 4 mg STK-MED ONCE .ROUTE ; Start 09/14/19 at 07:15; Stop 09/14/19 at 07:15; Status DC Iohexol (Omnipaque 300 Mg/ml) 50 ml STK-MED ONCE .ROUTE Last administered on 09/14/19at 08:11; Start 09/14/19 at 07:17; Stop 09/14/19 at 07:17; Status DC Cellulose (Surgicel Hemostat 4x8) 1 each STK-MED ONCE .ROUTE ; Start 09/14/19 at 07:17; Stop 09/14/19 at 07:17; Status DC Bupivacaine HCl (Sensorcaine Mpf 0.5%) 30 ml STK-MED ONCE .ROUTE Last administered on 09/14/19at 08:06; Start 09/14/19 at 07:17; Stop 09/14/19 at 07:18; Status DC Ondansetron HCl (Zofran) 4 mg PRN Q6HRS PRN IV NAUSEA/VOMITING; Start 09/14/19 at 07:30; Stop 09/15/19 at 07:29; Status DC Fentanyl Citrate (Fentanyl 2ml Vial) 25 mcg PRN Q5MIN PRN IV MILD PAIN 1-3; Start 09/14/19 at 07:30; Stop 09/15/19 at 07:29; Status DC Fentanyl Citrate (Fentanyl 2ml Vial) 50 mcg PRN Q5MIN PRN IV MODERATE TO SEVERE PAIN; Start 09/14/19 at 07:30; Stop 09/15/19 at 07:29; Status DC Morphine Sulfate (Morphine Sulfate) 1 mg PRN Q10MIN PRN IV SEVERE PAIN 7-10; Start 09/14/19 at 07:30; Stop 09/15/19 at 07:29; Status DC Ringer's Solution 1,000 ml @ 30 mls/hr Q24H IV ; Start 09/14/19 at 07:21; Stop 09/14/19 at 19:20; Status DC Hydromorphone HCl (Dilaudid) 0.5 mg PRN Q10MIN PRN IV SEV PAIN, Second choice; Start 09/14/19 at 07:30; Stop 09/15/19 at 07:29; Status DC Prochlorperazine Edisylate (Compazine) 5 mg PACU PRN PRN IV NAUSEA, MRX1; Start 09/14/19 at 07:30; Stop 09/15/19 at 07:29; Status DC Rocuronium [place] (Zemuron) 50 mg STK-MED ONCE .ROUTE ; Start 09/14/19 at 07:26; Stop 09/14/19 at 07:27; Status DC Fentanyl Citrate (Fentanyl 2ml Vial) 100 mcg STK-MED ONCE .ROUTE ; Start 09/14/19 at 07:27; Stop 09/14/19 at 07:27; Status DC Glycopyrrolate (Robinul) 1 mg STK-MED ONCE .ROUTE ; Start 09/14/19 at 07:31; Stop 09/14/19 at 07:32; Status DC Neostigmine [place] (Neostigmine Methylsulfate) 5 mg STK-MED ONCE .ROUTE ; Start 09/14/19 at 07:31; Stop 09/14/19 at 07:32; Status DC Phenylephrine HCl (PHENYLEPHRINE in 0.9% NACL PF) 1 mg STK-MED ONCE IV ; Start 09/14/19 at 08:13; Stop 09/14/19 at 08:13; Status DC Ephedrine Sulfate (ePHEDrine PF IN SALINE SYRINGE) 50 mg STK-MED ONCE IV ; Start 09/14/19 at 08:16; Stop 09/14/19 at 08:16; Status DC Vasopressin (Vasostrict) 20 unit STK-MED ONCE .ROUTE ; Start 09/14/19 at 08:17; Stop 09/14/19 at 08:18; Status DC Fentanyl Citrate (Fentanyl 2ml Vial) 100 mcg STK-MED ONCE .ROUTE ; Start 09/14/19 at 08:55; Stop 09/14/19 at 08:55; Status DC Oxycodone/ Acetaminophen (Percocet 5/325) 1 tab PRN Q4HRS PRN PO MODERATE PAIN Last administered on 09/14/19at 21:26; Start 09/14/19 at 09:15 Oxycodone/ Acetaminophen (Percocet 5/325) 2 tab PRN Q4HRS PRN PO SEVERE PAIN Last administered on 09/15/19at 09:03; Start 09/14/19 at 09:15 Insulin Human Lispro (HumaLOG VIAL for OP,RR ONLY) 0-10 units PRN Q1HR PRN SQ PER PROTOCOL Last administered on 09/14/19at 09:45; Start 09/14/19 at 09:45; Stop 09/15/19 at 09:44; Status DC Active Scripts Active Reported Doxycycline Hyclate 100 Mg Capsule 100 Mg PO BID Clindamycin Hcl 300 Mg Capsule 600 Mg PO BID Lidocaine PATCH (Lidocaine) 1 Each Adh..patch 1 Each TP DAILY REMOVE AFTER 12 HOURS Lisinopril 5 Mg Tablet 1 Tab PO DAILY PRN Percocet 7.5-325 Mg Tablet (Oxycodone/Acetaminophen) 1 Each Tablet 1 Tab PO PRN Q6HRS PRN Clonazepam 1 Mg Tablet 1 Mg PO BID [place] Carbonate 300 Mg Tablet 1 Tab PO BID Zanaflex (Tizanidine Hcl) 4 Mg Capsule 1 Cap PO TID PRN Janumet 50-1,000 Mg Tablet (Sitagliptin Phos/Metformin Hcl) 1 Each Tablet 1 Tab PO BID Doxepin Hcl 50 Mg Capsule 300 Mg PO HS Vitals/I & O Vital Sign - Last 24 Hours 09/14/19 09/14/19 09/14/19 09/14/19 11:15 11:18 11:22 12:00 Pulse 106 108 101 B/P (MAP) 159/83 (108) 161/95 (117) 162/102 (122) Pulse Ox 99 91 99 O2 Delivery Room Air Room Air Nasal Cannula Room Air 09/14/19 09/14/19 09/14/19 09/14/19 12:18 12:30 13:30 14:25 Pulse 99 99 99 B/P (MAP) 155/98 (117) 146/95 (112) 154/95 (114) Pulse Ox 95 97 99 100 O2 Delivery Nasal Cannula Room Air Room Air 09/14/19 09/14/19 09/14/19 09/14/19 18:02 19:00 19:02 19:50 Temp 97.5 97.5 Pulse 99 Resp 16 B/P (MAP) 147/99 (115) Pulse Ox 100 O2 Delivery Room Air Room Air Room Air 09/14/19 09/14/19 09/14/1909/14/20 21:26 22:26 23:00 03:00 Temp 98.3 97.8 98.3 97.8 Pulse 93 90 Resp 20 20 16 18 B/P (MAP) 149/92 (111) 169/96 (120) Pulse Ox 95 100 O2 Delivery Room Air Room Air 09/15/19 09/15/19 09/15/19 09/15/19 07:00 08:00 09:03 10:03 Temp 98.0 98.0 Pulse 100 Resp 20 B/P (MAP) 136/97 (110) Pulse Ox 100 O2 Delivery Room Air Room Air Room Air Intake and Output 09/14/19 09/14/19 09/15/19 15:00 23:00 07:00 Intake Total 950 ml 1660 ml Output Total 410 ml 700 ml Balance 540 ml 960 ml Nutrition Consultation Dietary Evaluation: Recommendations by RD: Dietary education by RD, Increase Calorie Intake, Protein supplementation Comments: Advance diet per surgery, goal diet caridac/ADA w/supplements per pt preference REC short-term non-oral nutrition (PPN or dobhoff/TFs) if unable to advance diet REC J[place]quin, MVI for wound healing (dehisced incision) Expected Outcomes/Goals: diet advancement - not met, goal ongoing Interpretation of weight loss: >7.5% in 3 months Malnutrition Findings: Food and Nutrition Intake (Sev: <50% est energy req 5days Weight Status: Obese JAMAL MORRIS MD Sep 15, 2019 11:05
--- NOTE | 2019-09-15 11:08 | PDOC ---
Infectious Disease Note Subjective Subjective s/p lap itzel yesterday Brief episode N/V this morning Denies BM Denies F/C/pain/SOA/cough ROS ROS as mentioned above Vital Sign Vital Signs Vital Signs Date Time Temp Pulse Resp B/P (MAP) Pulse Ox O2 Delivery O2 Flow Rate FiO2 09/15/19 10:03 Room Air 09/15/19 07:00 98.0 100 20 136/97 (110) 100 98.0 09/14/19 09:55 2 Physical Exam PHYSICAL EXAM GENERAL: Sitting on the side of the bed, alert in NAD HENT: Oral cavity clear NECK: Supple LUNGS: Clear. HEART: S1, S2 regular. ABDOMEN: Obese,soft, nontender. dressing dry EXTREMITIES: No edema, cyanosis. SKIN: Unremarkable except left knee, there is a small wound on to the knee which appears clean, healthy, red granulation tissue and no drainage. NEUROLOGIC: Alert and appropriate. No focal neurologic deficit. Right-sided CVC without signs of complications Labs Lab Laboratory Tests Test 09/14/19 11:27 09/14/19 16:37 09/14/19 21:02 09/15/19 07:26 Glucose (Fingerstick) 227 mg/dL (70-99) 203 mg/dL (70-99) 180 mg/dL (70-99) 174 mg/dL (70-99) Micro Microbiology 09/10/19 Blood Culture - Preliminary, Resulted NO GROWTH AFTER 4 DAYS Objective Assessment 1. Nausea, vomiting, and pancreatitis, unclear etiology. May have been gallstone or CBD stone causing blockage. s/p lap cholecystectomy, 09/13 2. Left total knee arthroplasty infection with the last culture only positive was from Dr. Avila's office, which was sent into some outside lab and has coagulase negative Staphylococcus, which was oxacillin resistant and tetracycline resistant. Hence, the patient is on clindamycin. Unfortunately, not a good drug but not much options. 3. Chest x-ray is normal, but the CT showing possible infiltrate, may have aspirated. 4. Diabetes. 5. Hypertension. 6. Bipolar disorder. 7. Renal insufficiency. Plan Plan of Care Switch Zosyn back to chronic po clindamyicin 600mg po BID Abx side effects including risk of developing C. diff infection discussed Continue probiotics Local wound care on the knee. Patient seen. Chart reviewed in detail. Case discussed with WIRE HARNESS ASSEMBLER. I agree with above plan.cor-formulated with WIRE HARNESS ASSEMBLER NICOLE YOUNG APRN Sep 15, 2019 11:08 RACHEL NIELSEN MD Sep 15, 2019 22:52
--- NOTE | 2019-09-15 11:31 | PDOC ---
PULMONARY PROGRESS NOTES Subjective POD #1 S/P vianey Denies SOB, report mild cough Vitals Vital Signs Date Time Temp Pulse Resp B/P (MAP) Pulse Ox O2 Delivery O2 Flow Rate FiO2 09/15/19 10:03 Room Air 09/15/19 07:00 98.0 100 20 136/97 (110) 100 98.0 09/14/19 09:55 2 ROS: No Chest Pain, No Abdominal Pain, No Increase Cough General: Alert, No acute distress Lungs: Clear Cardiovascular: S1 Abdomen: Soft, Other (surgical sites, CDI) Neuro Exam: Alert Extremities: No Edema Skin: Warm Labs Laboratory Tests Test 09/13/19 11:49 09/13/19 16:39 09/13/19 20:20 09/14/19 03:35 Glucose (Fingerstick) 219 mg/dL (70-99) 224 mg/dL (70-99) 240 mg/dL (70-99) White Blood Count 7.4 x10^3/uL (4.0-11.0) Red Blood Count 4.18 x10^6/uL (4.30-5.70) Hemoglobin 9.3 g/dL (13.0-17.5) Hematocrit 29.7 % (39.0-53.0) Mean Corpuscular Volume 71 fL (79-100) Mean Corpuscular Hemoglobin 22 pg (25-35) Mean Corpuscular Hemoglobin Concent 31 g/dL (31-37) Red Cell Distribution Width 20.2 % (11.5-14.5) Platelet Count 256 x10^3/uL (140-400) Neutrophils (%) (Auto) 77 % (31-73) Lymphocytes (%) (Auto) 10 % (24-48) Monocytes (%) (Auto) 11 % (0-9) Eosinophils (%) (Auto) 2 % (0-3) Basophils (%) (Auto) 0 % (0-3) Neutrophils # (Auto) 5.7 x10^3/uL (1.8-7.7) Lymphocytes # (Auto) 0.7 x10^3/uL (1.0-4.8) Monocytes # (Auto) 0.8 x10^3/uL (0.0-1.1) Eosinophils # (Auto) 0.2 x10^3/uL (0.0-0.7) Basophils # (Auto) 0.0 x10^3/uL (0.0-0.2) Sodium Level 142 mmol/L (136-145) Potassium Level 3.2 mmol/L (3.5-5.1) Chloride Level 105 mmol/L (98-107) Carbon Dioxide Level 22 mmol/L (21-32) Anion Gap 15 (6-14) Blood Urea Nitrogen 13 mg/dL (8-26) Creatinine 1.2 mg/dL (0.7-1.3) Estimated GFR (Cockcroft-Gault) 64.1 Glucose Level 217 mg/dL (70-99) Calcium Level 8.4 mg/dL (8.5-10.1) Lipase 421 U/L (73-393) Test 09/14/19 07:22 09/14/19 09:28 09/14/19 11:27 09/14/19 16:37 Glucose (Fingerstick) 191 mg/dL (70-99) 216 mg/dL (70-99) 227 mg/dL (70-99) 203 mg/dL (70-99) Test 09/14/19 21:02 09/15/19 07:26 Glucose (Fingerstick) 180 mg/dL (70-99) 174 mg/dL (70-99) Laboratory Tests Test 09/14/19 16:37 09/14/19 21:02 09/15/19 07:26 Glucose (Fingerstick) 203 mg/dL (70-99) 180 mg/dL (70-99) 174 mg/dL (70-99) Medications Active Scripts Medications Dose Route/Sig Max Daily Dose Days Date Category Dose Instructions Doxycycline Hyclate 100 Mg Capsule 100 Mg PO BID 09/11/19 Reported Clindamycin Hcl 300 Mg Capsule 600 Mg PO BID 09/11/19 Reported Lidocaine PATCH (Lidocaine) 1 Each Adh..patch 1 Each TP DAILY 03/12/19 Reported REMOVE AFTER 12 HOURS Lisinopril 5 Mg Tablet 1 Tab PO DAILY PRN 03/12/19 Reported Percocet 7.5-325 Mg Tablet (Oxycodone/Acetaminophen) 1 Each Tablet 1 Tab PO PRN Q6HRS PRN 03/12/19 Reported Clonazepam 1 Mg Tablet 1 Mg PO BID 03/12/19 Reported [place] Carbonate 300 Mg Tablet 1 Tab PO BID 08/08/18 Reported Zanaflex (Tizanidine Hcl) 4 Mg Capsule 1 Cap PO TID PRN 08/25/15 Reported Janumet 50-1,000 Mg Tablet (Sitagliptin Phos/Metformin Hcl) 1 Each Tablet 1 Tab PO BID 01/17/15 Reported Doxepin Hcl 50 Mg Capsule 300 Mg PO HS 01/17/15 Reported Impression . 1. Abnormal CT of the abdomen with lower sections of the lungs showing some inflammatory changes involving the left lower lobe. This could be a combination of atelectasis from the abdominal process versus possibility of pneumonitis. The patient has been complaining of some cough with some brownish sputum. 2. No significant tobacco history. 3. Acute pancreatitis, being followed by GI. He is a nonalcoholic. Likely etiology appears to be gallstone pancreatitis. 4. Acute kidney injury, probably on chronic kidney disease. 5. Hyperglycemia, present on admission, improving. Plan . Pulmonary status appears to be overall stable, remains on room air Continue ABX per ID Follow GI recommendations. Follow surgery recs --S/P choly DVT prophylaxis with Lovenox. Discussed with HAMMAD CANAS MD Sep 15, 2019 11:31
--- NOTE | 2019-09-15 11:46 | PDOC ---
G I PROGRESS NOTE Subjective No complaints. Tolerating diet. Physical Exam Lungs clear. RRR Abdomen soft, tender only at port sites. Review of Relevant I have reviewed the following items blaze (where applicable) has been applied. Labs Laboratory Tests Test 09/13/19 11:49 09/13/19 16:39 09/13/19 20:20 09/14/19 03:35 Glucose (Fingerstick) 219 mg/dL (70-99) 224 mg/dL (70-99) 240 mg/dL (70-99) White Blood Count 7.4 x10^3/uL (4.0-11.0) Red Blood Count 4.18 x10^6/uL (4.30-5.70) Hemoglobin 9.3 g/dL (13.0-17.5) Hematocrit 29.7 % (39.0-53.0) Mean Corpuscular Volume 71 fL (79-100) Mean Corpuscular Hemoglobin 22 pg (25-35) Mean Corpuscular Hemoglobin Concent 31 g/dL (31-37) Red Cell Distribution Width 20.2 % (11.5-14.5) Platelet Count 256 x10^3/uL (140-400) Neutrophils (%) (Auto) 77 % (31-73) Lymphocytes (%) (Auto) 10 % (24-48) Monocytes (%) (Auto) 11 % (0-9) Eosinophils (%) (Auto) 2 % (0-3) Basophils (%) (Auto) 0 % (0-3) Neutrophils # (Auto) 5.7 x10^3/uL (1.8-7.7) Lymphocytes # (Auto) 0.7 x10^3/uL (1.0-4.8) Monocytes # (Auto) 0.8 x10^3/uL (0.0-1.1) Eosinophils # (Auto) 0.2 x10^3/uL (0.0-0.7) Basophils # (Auto) 0.0 x10^3/uL (0.0-0.2) Sodium Level 142 mmol/L (136-145) Potassium Level 3.2 mmol/L (3.5-5.1) Chloride Level 105 mmol/L (98-107) Carbon Dioxide Level 22 mmol/L (21-32) Anion Gap 15 (6-14) Blood Urea Nitrogen 13 mg/dL (8-26) Creatinine 1.2 mg/dL (0.7-1.3) Estimated GFR (Cockcroft-Gault) 64.1 Glucose Level 217 mg/dL (70-99) Calcium Level 8.4 mg/dL (8.5-10.1) Lipase 421 U/L (73-393) Test 09/14/19 07:22 09/14/19 09:28 09/14/19 11:27 09/14/19 16:37 Glucose (Fingerstick) 191 mg/dL (70-99) 216 mg/dL (70-99) 227 mg/dL (70-99) 203 mg/dL (70-99) Test 09/14/19 21:02 09/15/19 07:26 09/15/19 11:41 Glucose (Fingerstick) 180 mg/dL (70-99) 174 mg/dL (70-99) 207 mg/dL (70-99) Laboratory Tests Test 09/14/19 16:37 09/14/19 21:02 09/15/19 07:26 09/15/19 11:41 Glucose (Fingerstick) 203 mg/dL (70-99) 180 mg/dL (70-99) 174 mg/dL (70-99) 207 mg/dL (70-99) Microbiology 09/10/19 Blood Culture - Preliminary, Resulted NO GROWTH AFTER 4 DAYS Vitals/I & O Vital Sign - Last 24 Hours 09/14/19 09/14/19 09/14/19 09/14/19 12:00 12:18 12:30 13:30 Pulse 101 99 99 B/P (MAP) 162/102 (122) 155/98 (117) 146/95 (112) Pulse Ox 99 95 97 99 O2 Delivery Room Air Nasal Cannula Room Air Room Air 09/14/19 09/14/19 09/14/19 09/14/19 14:25 18:02 19:00 19:02 Temp 97.5 97.5 Pulse 99 99 Resp 16 B/P (MAP) 154/95 (114) 147/99 (115) Pulse Ox 100 100 O2 Delivery Room Air Room Air 09/14/19 09/14/19 09/14/19 09/14/19 19:50 21:26 22:26 23:00 Temp 98.3 98.3 Pulse 93 Resp 20 20 16 B/P (MAP) 149/92 (111) Pulse Ox 95 O2 Delivery Room Air Room Air Room Air 09/15/19 09/15/19 09/15/19 09/15/19 03:00 07:00 08:00 09:03 Temp 97.8 98.0 97.8 98.0 Pulse 90 100 Resp 18 20 B/P (MAP) 169/96 (120) 136/97 (110) Pulse Ox 100 100 O2 Delivery Room Air Room Air 09/15/19 10:03 O2 Delivery Room Air Intake and Output 09/14/19 09/14/19 09/15/19 15:00 23:00 07:00 Intake Total 950 ml 1660 ml Output Total 410 ml 700 ml Balance 540 ml 960 ml Problem List Problems Medical Problems: (1) Acute kidney injury Status: Acute (2) Dehydration Status: Acute Assessment Gallstones, maybe secondary pancreatitis, now post-itzel and doing well. Plan of Care Note Continue post-op care. In future needs outpatient 'scopes. Justicifation of Admission Dx: Justifications for Admission: Justification of Admission Dx: Yes Comminuty Aquired Pneumonia: Hemodynamic Instability Acute Renal Failure: RF Can't Be Managed Outpt Sepsis: Dehydration Comments: Gallstone pancreatitis, post-cholecystectomy. BRIANNE HAYNES MD Sep 15, 2019 11:46
--- NOTE | 2019-09-15 12:19 | PDOC ---
Renal-Progress Notes Subjective Notes Notes NO NEW COMPLAINTS History of Present Illness Hx of present illness STABLE Vitals Vitals Vital Signs Date Time Temp Pulse Resp B/P (MAP) Pulse Ox O2 Delivery O2 Flow Rate FiO2 09/15/19 10:03 Room Air 09/15/19 07:00 98.0 100 20 136/97 (110) 100 98.0 09/14/19 09:55 2 Weight Weight [ ] I.O. Intake and Output Intake and Output 09/15/19 07:00 Intake Total 2610 ml Output Total 1110 ml Balance 1500 ml Intake Oral 360 ml IV Total 1950 ml Other 300 ml Output Urine Total 1100 ml Estimated Blood Loss 10 ml Labs Labs Laboratory Tests Test 09/14/19 16:37 09/14/19 21:02 09/15/19 07:26 09/15/19 11:41 Glucose (Fingerstick) 203 mg/dL (70-99) 180 mg/dL (70-99) 174 mg/dL (70-99) 207 mg/dL (70-99) Micro Micro Microbiology 09/10/19 Blood Culture - Preliminary, Resulted NO GROWTH AFTER 4 DAYS Review of Systems Constitutional: yes: alert Ears/Nose/Throat: Yes: no symptom reported Eyes: Yes: no symptom reported Pulmonary: Yes no symptom reported Gastrointestional: Yes: constipation Musculoskeletal: Yes: muscle pain Skin: Yes no symptom reported Psychiatric/Neurological: Yes: no symptom reported Endocrine: Yes: no symptom reported Physical Exam General Appearance: no apparent distress Skin: warm Respiratory: decreased breath sounds Heart: S1S2 Abdomen: soft, bowel sounds present Genitourinary: bladder flat Neurology: alert, oriented Assessment Assessment IMP JAQUAN - RESOLVED LEFT RENAL CYST-PROB CALCIFIED-F/U IN 6 MONTHS HYPOKALEMIA BIPOLAR DM II HTN PLAN REPLACE K CONT HYDRATION ELIZABETH ORTIZ MD Sep 15, 2019 12:19
--- NOTE | 2019-09-15 12:19 | PDOC ---
PROGRESS NOTES Subjective Subjective looks well Objective Objective Vital Signs Date Time Temp Pulse Resp B/P (MAP) Pulse Ox O2 Delivery O2 Flow Rate FiO2 09/15/19 10:03 Room Air 09/15/19 07:00 98.0 100 20 136/97 (110) 100 98.0 09/14/19 09:55 2 Intake and Output 09/15/19 07:00 Intake Total 2610 ml Output Total 1110 ml Balance 1500 ml Intake Oral 360 ml IV Total 1950 ml Other 300 ml Output Urine Total 1100 ml Estimated Blood Loss 10 ml Physical Exam Abdomen: Soft Assessment Assessment Problems Medical Problems: (1) Acute kidney injury Status: Acute (2) Dehydration Status: Acute Plan Plan of Care Doing well; stable for discharge from surgery standpoint Comment Review of Relevant I have reviewed the following items blaze (where applicable) has been applied. Labs Laboratory Tests Test 09/13/19 16:39 09/13/19 20:20 09/14/19 03:35 09/14/19 07:22 Glucose (Fingerstick) 224 mg/dL (70-99) 240 mg/dL (70-99) 191 mg/dL (70-99) White Blood Count 7.4 x10^3/uL (4.0-11.0) Red Blood Count 4.18 x10^6/uL (4.30-5.70) Hemoglobin 9.3 g/dL (13.0-17.5) Hematocrit 29.7 % (39.0-53.0) Mean Corpuscular Volume 71 fL (79-100) Mean Corpuscular Hemoglobin 22 pg (25-35) Mean Corpuscular Hemoglobin Concent 31 g/dL (31-37) Red Cell Distribution Width 20.2 % (11.5-14.5) Platelet Count 256 x10^3/uL (140-400) Neutrophils (%) (Auto) 77 % (31-73) Lymphocytes (%) (Auto) 10 % (24-48) Monocytes (%) (Auto) 11 % (0-9) Eosinophils (%) (Auto) 2 % (0-3) Basophils (%) (Auto) 0 % (0-3) Neutrophils # (Auto) 5.7 x10^3/uL (1.8-7.7) Lymphocytes # (Auto) 0.7 x10^3/uL (1.0-4.8) Monocytes # (Auto) 0.8 x10^3/uL (0.0-1.1) Eosinophils # (Auto) 0.2 x10^3/uL (0.0-0.7) Basophils # (Auto) 0.0 x10^3/uL (0.0-0.2) Sodium Level 142 mmol/L (136-145) Potassium Level 3.2 mmol/L (3.5-5.1) Chloride Level 105 mmol/L (98-107) Carbon Dioxide Level 22 mmol/L (21-32) Anion Gap 15 (6-14) Blood Urea Nitrogen 13 mg/dL (8-26) Creatinine 1.2 mg/dL (0.7-1.3) Estimated GFR (Cockcroft-Gault) 64.1 Glucose Level 217 mg/dL (70-99) Calcium Level 8.4 mg/dL (8.5-10.1) Lipase 421 U/L (73-393) Test 09/14/19 09:28 09/14/19 11:27 09/14/19 16:37 09/14/19 21:02 Glucose (Fingerstick) 216 mg/dL (70-99) 227 mg/dL (70-99) 203 mg/dL (70-99) 180 mg/dL (70-99) Test 09/15/19 07:26 09/15/19 11:41 Glucose (Fingerstick) 174 mg/dL (70-99) 207 mg/dL (70-99) Laboratory Tests Test 09/14/19 16:37 09/14/19 21:02 09/15/19 07:26 09/15/19 11:41 Glucose (Fingerstick) 203 mg/dL (70-99) 180 mg/dL (70-99) 174 mg/dL (70-99) 207 mg/dL (70-99) Microbiology 09/10/19 Blood Culture - Preliminary, Resulted NO GROWTH AFTER 4 DAYS Medications Current Medications Sodium Chloride 1,000 ml @ 0 mls/hr 1X ONCE IV Last administered on 09/10/19at 11:06; Start 09/10/19 at 11:00; Stop 09/10/19 at 11:01; Status DC Ondansetron HCl (Zofran) 4 mg 1X ONCE IVP Last administered on 09/10/19at 11:06; Start 09/10/19 at 11:00; Stop 09/10/19 at 11:01; Status DC Sodium Chloride (Normal Saline Flush) 3 ml QSHIFT PRN IV AFTER MEDS AND BLOOD DRAWS Last administered on 09/10/19at 13:54; Start 09/10/19 at 13:15 Sodium Chloride 1,000 ml @ 100 mls/hr Q10H IV Last administered on 09/15/19at 09:11; Start 09/10/19 at 13:05 Ondansetron HCl (Zofran) 4 mg PRN Q4HRS PRN IV NAUSEA/VOMITING Last administered on 09/11/19at 23:41; Start 09/10/19 at 13:15 Acetaminophen (Tylenol Supp) 650 mg PRN Q4HRS PRN WI TEMP OVER 100.4F OR MILD PAIN; Start 09/10/19 at 13:15 Clonidine HCl (Catapres) 0.1 mg PRN Q6HRS PRN PO SBP>160 OR DBP>90; Start 09/10/19 at 13:15 Docusate Sodium (Colace) 100 mg PRN BID PRN PO HARD STOOLS; Start 09/10/19 at 13:15 Albuterol/ Ipratropium (Duoneb) 3 ml Q4HRS NEB ; Start 09/10/19 at 16:00; Stop 09/10/19 at 19:57; Status DC Enoxaparin Sodium (Lovenox 40mg Syringe) 40 mg Q24H SQ Last administered on 09/12/19at 15:46; Start 09/10/19 at 15:00 Piperacillin Sod/ Tazobactam Sod 3.375 gm/Sodium Chloride 50 ml @ 100 mls/hr Q6HRS IV Last administered on 09/15/19at 06:02; Start 09/10/19 at 16:00; Stop 09/15/19 at 10:48; Status DC Insulin Human Regular 100 unit/ Sodium Chloride 101 ml @ 0 mls/hr CONT PRN IV SEE I/O RECORD Last administered on 09/10/19at 21:21; Start 09/10/19 at 13:15 Dextrose (Dextrose 50%-Water Syringe) 12.5 gm PRN Q15MIN PRN IV LOW BLOOD SUGAR; Start 09/10/19 at 13:15; Stop 09/10/19 at 21:06; Status DC Dextrose (Iv Dextrose 5%) 250 ml PRN Q15MIN PRN IV LOW BLOOD SUGAR; Start 09/10/19 at 13:15 Insulin Human Regular 0 ml @ As Directed STK-MED ONCE IV ; Start 09/10/19 at 13:47; Stop 09/10/19 at 13:47; Status DC Pantoprazole Sodium (PROTONIX VIAL for IV PUSH) 40 mg DAILYAC IVP Last administered on 09/12/19at 07:56; Start 09/11/19 at 07:30; Stop 09/12/19 at 10:15; Status DC Prochlorperazine Edisylate (Compazine) 10 mg PRN Q6HRS PRN IV NAUSEA/VOMITING- 2ND CHOICE Last administered on 09/10/19at 15:53; Start 09/10/19 at 15:45 Hydralazine HCl (Apresoline Inj) 10 mg PRN Q4HRS PRN IVP ELEVATED BP, SEE COMMENTS Last administered on 09/13/19at 09:05; Start 09/10/19 at 15:45 Potassium Chloride/Water 100 ml @ 100 mls/hr Q1H IV Last administered on 09/10/19at 21:20; Start 09/10/19 at 18:00; Stop 09/10/19 at 20:59; Status DC Potassium Phosphate 13.6 mmol/Sodium Chloride 254.5333 ml @ 62.5 mls/hr 1X ONCE IV Last administered on 09/10/19at 18:24; Start 09/10/19 at 18:00; Stop 09/10/19 at 22:04; Status DC Albuterol Sulfate (Ventolin Neb Soln) 2.5 mg PRN Q4HRS PRN NEB WHEEZING; Start 09/10/19 at 20:00 Insulin Human Lispro (HumaLOG) 0-7 UNITS TIDWMEALS SQ Last administered on 09/11/19at 17:07; Start 09/11/19 at 08:00; Stop 09/11/19 at 18:15; Status DC Dextrose (Dextrose 50%-Water Syringe) 12.5 gm PRN Q15MIN PRN IV SEE COMMENTS; Start 09/10/19 at 21:15 Potassium Chloride/Water 100 ml @ 100 mls/hr Q1H IV Last administered on 09/11/19 10:05; Start 09/11/19 at 07:00; Stop 09/11/19 at 08:59; Status DC Lidocaine (Lidoderm) 1 patch DAILY TP Last administered on 09/12/19 07:57; Start 09/11/19 at 10:00 Lisinopril (Prinivil) 5 mg PRN DAILY PRN PO hypertension Last administered on 12:14; Start 09/11/19 at 09:45 Oxycodone/ Acetaminophen (Percocet 7.5/ 325) 1 tab PRN Q6HRS PRN PO MODERATE TO SEVERE PAIN Last administered on 09/13/19 17:30; Start 09/11/19 at 09:45; Stop 09/14/19 at 09:07; Status DC Clonazepam (KlonoPIN) 1 mg BID PO Last administered on 09/15/19 09:02; Start 09/11/19 at 10:00 Doxepin HCl (SINEquan) 300 mg QHS PO ; Start 09/11/19 at 21:00; Status Cancel [place] Carbonate (Lithobid) 300 mg BID PO Last administered on 09/15/19 09:03; Start 09/11/19 at 10:00 Metformin HCl (Glucophage) 1,000 mg BIDWMEALS PO ; Start 09/11/19 at 10:00; Stop 09/11/19 at 12:45; Status DC Tizanidine HCl (Zanaflex) 1 mg PRN TID PRN PO MUSCLE SPASTICITY Last administered on 09/13/19 12:11; Start 09/11/19 at 09:45 Linagliptin (Tradjenta) 5 mg DAILY PO Last administered on 09/15/19 09:02; Start 09/11/19 at 10:00 Miscellaneous (Lidoderm Patch Removal) 1 ea QHS MC Last administered on 09/13/19 21:00; Start 09/11/19 at 21:00 Non-Formulary Medication 2 ea QHS PO Last administered on 09/14/19 21:14; Start 09/11/19 at 21:00 Insulin Human Lispro (HumaLOG) 0-7 UNITS QIDACHS SQ Last administered on 09/15/19 09:11; Start 09/11/19 at 21:00 Pantoprazole Sodium (Protonix) 40 mg DAILYAC PO Last administered on 09/15/19at 09:02; Start 09/13/19 at 07:30 Lactobacillus Rhamnosus (Culturelle) 1 cap BID PO Last administered on 09/15/19at 09:02; Start 09/12/19 at 21:00 Guaifenesin (Robitussin Dm) 10 ml PRN Q4HRS PRN PO COUGH Last administered on 09/14/19at 11:25; Start 09/13/19 at 13:00 Iohexol (Omnipaque 240 Mg/ml) 30 ml 1X ONCE PO Last administered on 09/13/19at 13:30; Start 09/13/19 at 13:30; Stop 09/13/19 at 13:31; Status DC Iohexol (Omnipaque 300 Mg/ml) 60 ml 1X ONCE IV Last administered on 09/13/19at 13:30; Start 09/13/19 at 13:30; Stop 09/13/19 at 13:31; Status DC Info (CONTRAST GIVEN -- Rx MONITORING) 1 each PRN DAILY PRN MC SEE COMMENTS; Start 09/13/19 at 13:45; Stop 09/15/19 at 13:44 Rocuronium [place] (Zemuron) 50 mg STK-MED ONCE .ROUTE ; Start 09/14/19 at 07:14; Stop 09/14/19 at 07:15; Status DC Sevoflurane (Ultane) 90 ml STK-MED ONCE IH ; Start 09/14/19 at 07:15; Stop 09/14/19 at 07:15; Status DC Propofol (Diprivan) 200 mg STK-MED ONCE IV ; Start 09/14/19 at 07:15; Stop 09/14/19 at 07:15; Status DC Ondansetron HCl (Zofran) 4 mg STK-MED ONCE .ROUTE ; Start 09/14/19 at 07:15; Stop 09/14/19 at 07:15; Status DC Lidocaine HCl (Lidocaine Pf 2% Vial) 5 ml STK-MED ONCE .ROUTE ; Start 09/14/19 at 07:15; Stop 09/14/19 at 07:15; Status DC Dexamethasone Sodium Phosphate (Decadron) 4 mg STK-MED ONCE .ROUTE ; Start 09/14/19 at 07:15; Stop 09/14/19 at 07:15; Status DC Iohexol (Omnipaque 300 Mg/ml) 50 ml STK-MED ONCE .ROUTE Last administered on 09/14/19at 08:11; Start 09/14/19 at 07:17; Stop 09/14/19 at 07:17; Status DC Cellulose (Surgicel Hemostat 4x8) 1 each STK-MED ONCE .ROUTE ; Start 09/14/19 at 07:17; Stop 09/14/19 at 07:17; Status DC Bupivacaine HCl (Sensorcaine Mpf 0.5%) 30 ml STK-MED ONCE .ROUTE Last administered on 09/14/19at 08:06; Start 09/14/19 at 07:17; Stop 09/14/19 at 07:18; Status DC Ondansetron HCl (Zofran) 4 mg PRN Q6HRS PRN IV NAUSEA/VOMITING; Start 09/14/19 at 07:30; Stop 09/15/19 at 07:29; Status DC Fentanyl Citrate (Fentanyl 2ml Vial) 25 mcg PRN Q5MIN PRN IV MILD PAIN 1-3; Start 09/14/19 at 07:30; Stop 09/15/19 at 07:29; Status DC Fentanyl Citrate (Fentanyl 2ml Vial) 50 mcg PRN Q5MIN PRN IV MODERATE TO SEVERE PAIN; Start 09/14/19 at 07:30; Stop 09/15/19 at 07:29; Status DC Morphine Sulfate (Morphine Sulfate) 1 mg PRN Q10MIN PRN IV SEVERE PAIN 7-10; Start 09/14/19 at 07:30; Stop 09/15/19 at 07:29; Status DC Ringer's Solution 1,000 ml @ 30 mls/hr Q24H IV ; Start 09/14/19 at 07:21; Stop 09/14/19 at 19:20; Status DC Hydromorphone HCl (Dilaudid) 0.5 mg PRN Q10MIN PRN IV SEV PAIN, Second choice; Start 09/14/19 at 07:30; Stop 09/15/19 at 07:29; Status DC Prochlorperazine Edisylate (Compazine) 5 mg PACU PRN PRN IV NAUSEA, MRX1; Start 09/14/19 at 07:30; Stop 09/15/19 at 07:29; Status DC Rocuronium [place] (Zemuron) 50 mg STK-MED ONCE .ROUTE ; Start 09/14/19 at 07:26; Stop 09/14/19 at 07:27; Status DC Fentanyl Citrate (Fentanyl 2ml Vial) 100 mcg STK-MED ONCE .ROUTE ; Start 09/14/19 at 07:27; Stop 09/14/19 at 07:27; Status DC Glycopyrrolate (Robinul) 1 mg STK-MED ONCE .ROUTE ; Start 09/14/19 at 07:31; Stop 09/14/19 at 07:32; Status DC Neostigmine Spring (Neostigmine Methylsulfate) 5 mg STK-MED ONCE .ROUTE ; Start 09/14/19 at 07:31; Stop 09/14/19 at 07:32; Status DC Phenylephrine HCl (PHENYLEPHRINE in 0.9% NACL PF) 1 mg STK-MED ONCE IV ; Start 09/14/19 at 08:13; Stop 09/14/19 at 08:13; Status DC Ephedrine Sulfate (ePHEDrine PF IN SALINE SYRINGE) 50 mg STK-MED ONCE IV ; Start 09/14/19 at 08:16; Stop 09/14/19 at 08:16; Status DC Vasopressin (Vasostrict) 20 unit STK-MED ONCE .ROUTE ; Start 09/14/19 at 08:17; Stop 09/14/19 at 08:18; Status DC Fentanyl Citrate (Fentanyl 2ml Vial) 100 mcg STK-MED ONCE .ROUTE ; Start 09/14/19 at 08:55; Stop 09/14/19 at 08:55; Status DC Oxycodone/ Acetaminophen (Percocet 5/325) 1 tab PRN Q4HRS PRN PO MODERATE PAIN Last administered on 09/14/19at 21:26; Start 09/14/19 at 09:15 Oxycodone/ Acetaminophen (Percocet 5/325) 2 tab PRN Q4HRS PRN PO SEVERE PAIN Last administered on 09/15/19at 09:03; Start 09/14/19 at 09:15 Insulin Human Lispro (HumaLOG VIAL for OP,RR ONLY) 0-10 units PRN Q1HR PRN SQ PER PROTOCOL Last administered on 09/14/19at 09:45; Start 09/14/19 at 09:45; Stop 09/15/19 at 09:44; Status DC Clindamycin HCl (Cleocin) 600 mg BID PO ; Start 09/15/19 at 12:00 Active Scripts Active Reported Doxycycline Hyclate 100 Mg Capsule 100 Mg PO BID Clindamycin Hcl 300 Mg Capsule 600 Mg PO BID Lidocaine PATCH (Lidocaine) 1 Each Adh..patch 1 Each TP DAILY REMOVE AFTER 12 HOURS Lisinopril 5 Mg Tablet 1 Tab PO DAILY PRN Percocet 7.5-325 Mg Tablet (Oxycodone/Acetaminophen) 1 Each Tablet 1 Tab PO PRN Q6HRS PRN Clonazepam 1 Mg Tablet 1 Mg PO BID [place] Carbonate 300 Mg Tablet 1 Tab PO BID Zanaflex (Tizanidine Hcl) 4 Mg Capsule 1 Cap PO TID PRN Janumet 50-1,000 Mg Tablet (Sitagliptin Phos/Metformin Hcl) 1 Each Tablet 1 Tab PO BID Doxepin Hcl 50 Mg Capsule 300 Mg PO HS Vitals/I & O Vital Sign - Last 24 Hours 09/14/19 09/14/19 09/14/19 09/14/19 12:18 12:30 13:30 14:25 Pulse 99 99 99 B/P (MAP) 155/98 (117) 146/95 (112) 154/95 (114) Pulse Ox 95 97 99 100 O2 Delivery Nasal Cannula Room Air Room Air 09/14/19 09/14/19 09/14/19 09/14/19 18:02 19:00 19:02 19:50 Temp 97.5 97.5 Pulse 99 Resp 16 B/P (MAP) 147/99 (115) Pulse Ox 100 O2 Delivery Room Air Room Air Room Air 09/14/19 09/14/19 09/14/19 09/15/19 21:26 22:26 23:00 03:00 Temp 98.3 97.8 98.3 97.8 Pulse 93 90 Resp 20 20 16 18 B/P (MAP) 149/92 (111) 169/96 (120) Pulse Ox 95 100 O2 Delivery Room Air Room Air 09/15/19 09/15/19 09/15/19 09/15/19 07:00 08:00 09:03 10:03 Temp 98.0 98.0 Pulse 100 Resp 20 B/P (MAP) 136/97 (110) Pulse Ox 100 O2 Delivery Room Air Room Air Room Air Intake and Output 09/14/19 09/14/19 09/15/19 15:00 23:00 07:00 Intake Total 950 ml 1660 ml Output Total 410 ml 700 ml Balance 540 ml 960 ml Nutrition Consultation Dietary Evaluation: Recommendations by RD: Dietary education by RD, Increase Calorie Intake, Protein supplementation Comments: Advance diet per surgery, goal diet caridac/ADA w/supplements per pt preference REC short-term non-oral nutrition (PPN or dobhoff/TFs) if unable to advance diet REC [place], MVI for wound healing (dehisced incision) Expected Outcomes/Goals: diet advancement - not met, goal ongoing Interpretation of weight loss: >7.5% in 3 months Malnutrition Findings: Food and Nutrition Intake (Sev: <50% est energy req 5days Weight Status: Obese TOMMY THOMPSON MD Sep 15, 2019 12:19
[2019-09-15] MEDS ORDERED: POTASSIUM CHLORIDE 20 MEQ TABLET.ER. PO ONE (12:30)
[2019-09-15] MEDS: CLINDAMYCIN HCL 150 MG CAPSULE. PO SCH ×2 (12:50→21:14)
[2019-09-15 15:00] VITALS: BP 158/88
[2019-09-15] MEDS: ENOXAPARIN 40 MG/0.4 ML SYRINGE. SQ SCH (16:01)
--- NOTE | 2019-09-15 17:51 | NUR ---
patient refused lidocaine patch. Patient did not eat much of dinner. No insulin administered. Will continue to monitor.
[2019-09-15] MEDS: ONDANSETRON PF 4 MG/2 ML VIAL. IV PRN (18:22)
[2019-09-15 19:00] VITALS: BP 171/96
[2019-09-15] MEDS: PATCH REMOVAL. MC SCH (21:00)
--- NOTE | 2019-09-15 21:09 | NUR ---
patch came off during surgery.
--- NOTE | 2019-09-15 21:11 | NUR ---
Patch was not administered. Pt thought it fell off
[2019-09-15] MEDS: DOXEPIN 150 MG PO SCH (21:13)
[2019-09-15 23:00] VITALS: BP 137/74
[2019-09-16 03:00] VITALS: BP 137/83
[2019-09-16 07:00] VITALS: BP 152/93
[2019-09-16 07:14] LABS: CALCIUM 8.4 mg/dL (8.5-10.1); CREATININE 1.1 mg/dL (0.7-1.3); GFR 70.9; POTASSIUM 3.1 mmol/L (3.5-5.1)
[2019-09-16 07:15] LABS: MAGNESIUM 1.1 mg/dL (1.8-2.4)
[2019-09-16] MEDS: PANTOPRAZOLE 40 MG TABLET.DR. PO SCH (08:07)
[2019-09-16] MEDS: LACTOBACILLUS RHAMNOSUS GG 1 CAPSULE. PO SCH (08:07)
[2019-09-16] MEDS: clonazePAM 0.5 MG TABLET PO SCH (08:07)
[2019-09-16] MEDS: LIDOCAINE (700MG/PATCH) PATCH. TP SCH (08:07)
[2019-09-16] MEDS: LINAGLIPTIN 5 MG TABLET PO SCH (08:07)
[2019-09-16] MEDS: LITHIUM CARBONATE ER 300 MG TABLET.ER PO SCH (08:07)
[2019-09-16] MEDS: oxyCODONE/APAP 5/325 1 TAB TABLET PO PRN (08:08)
[2019-09-16] MEDS: INSULIN LISPRO 300 UNITS/3 ML VIAL. SQ SCH ×2 (08:14→12:05)
[2019-09-16] MEDS: IV NORMAL SALINE 1000ML BAG 1,000 ML IV SCH (09:05)
[2019-09-16] MEDS: CLINDAMYCIN HCL 150 MG CAPSULE. PO SCH (09:28)
--- NOTE | 2019-09-16 09:29 | PDOC ---
Infectious Disease Note Subjective Subjective Has a little bit metallic taste in mouth N/V settling down Eating + BM Developed a nonpruritic rash over the shoulders/chest area that is now going away Denies F/C/pain/SOA/cough ROS ROS as mentioned above Vital Sign Vital Signs Vital Signs Date Time Temp Pulse Resp B/P (MAP) Pulse Ox O2 Delivery O2 Flow Rate FiO2 09/16/19 08:08 Room Air 09/16/19 07:00 97.3 102 18 152/93 (112) 98 97.3 Physical Exam PHYSICAL EXAM GENERAL: Lying down, alert, appears comfortable HENT: Oral cavity clear NECK: Supple LUNGS: Clear. HEART: S1, S2 regular. ABDOMEN: Obese,soft, nontender. dressing dry EXTREMITIES: No edema, cyanosis. SKIN: Warm to touch. Mild rash over the shoulders A small wound on left knee, granulating, no drainage. NEUROLOGIC: Alert and appropriate. No focal neurologic deficit. Right-sided CVC without signs of complications Labs Lab Laboratory Tests Test 09/15/19 11:41 09/15/19 16:52 09/15/19 20:16 09/16/19 06:15 Glucose (Fingerstick) 207 mg/dL (70-99) 156 mg/dL (70-99) 182 mg/dL (70-99) Sodium Level 141 mmol/L (136-145) Potassium Level 3.1 mmol/L (3.5-5.1) Chloride Level 104 mmol/L (98-107) Carbon Dioxide Level 25 mmol/L (21-32) Anion Gap 12 (6-14) Blood Urea Nitrogen 6 mg/dL (8-26) Creatinine 1.1 mg/dL (0.7-1.3) Estimated GFR (Cockcroft-Gault) 70.9 Glucose Level 243 mg/dL (70-99) Calcium Level 8.4 mg/dL (8.5-10.1) Magnesium Level 1.1 mg/dL (1.8-2.4) Test 09/16/19 07:39 Glucose (Fingerstick) 235 mg/dL (70-99) Micro Microbiology 09/10/19 Blood Culture - Preliminary, Resulted NO GROWTH AFTER 5 DAYS Objective Assessment 1. Nausea, vomiting, and pancreatitis, unclear etiology. May have been gallstone or CBD stone causing blockage. s/p lap cholecystectomy, 09/13 2. Left total knee arthroplasty infection with the last culture only positive was from Dr. Avila's office, which was sent into some outside lab and has coagulase negative Staphylococcus, which was oxacillin resistant and tetracycline resistant. Hence, the patient is on clindamycin. Unfortunately, not a good drug but not much options. 3. Chest x-ray is normal, but the CT showing possible infiltrate, may have aspirated. 4. Diabetes. 5. Hypertension. 6. Bipolar disorder. 7. Renal insufficiency. Plan Plan of Care Continue chronic po clindamyicin 600mg po BID Abx side effects including risk of developing C. diff infection discussed Continue probiotics Local wound care on the knee. Follow-up with in 2 weeks Office # [phone] D/w nursing Patient seen. Chart reviewed. Case discussed with CHERRY CUTTER. Agree with above plan/. NICOLE YOUNG APRN Sep 16, 2019 09:28 RACHEL NIELSEN MD Sep 16, 2019 20:48
--- NOTE | 2019-09-16 09:53 | PDOC ---
PULMONARY PROGRESS NOTES Subjective POD #2 S/P choly Denies SOB,denies cough, ready to D/C home today Vitals Vital Signs Date Time Temp Pulse Resp B/P (MAP) Pulse Ox O2 Delivery O2 Flow Rate FiO2 09/16/19 08:08 Room Air 09/16/19 07:00 97.3 102 18 152/93 (112) 98 97.3 ROS: No Nausea, No Chest Pain, No Abdominal Pain, No Increase Cough General: Alert, No acute distress Lungs: Clear Cardiovascular: S1 Abdomen: Soft, Other (surgical sites, CDI) Neuro Exam: Alert Extremities: No Edema Skin: Warm, Dry Labs Laboratory Tests Test 09/14/19 11:27 09/14/19 16:37 09/14/19 21:02 09/15/19 07:26 Glucose (Fingerstick) 227 mg/dL (70-99) 203 mg/dL (70-99) 180 mg/dL (70-99) 174 mg/dL (70-99) Test 09/15/19 11:41 09/15/19 16:52 09/15/19 20:16 09/16/19 06:15 Glucose (Fingerstick) 207 mg/dL (70-99) 156 mg/dL (70-99) 182 mg/dL (70-99) Sodium Level 141 mmol/L (136-145) Potassium Level 3.1 mmol/L (3.5-5.1) Chloride Level 104 mmol/L (98-107) Carbon Dioxide Level 25 mmol/L (21-32) Anion Gap 12 (6-14) Blood Urea Nitrogen 6 mg/dL (8-26) Creatinine 1.1 mg/dL (0.7-1.3) Estimated GFR (Cockcroft-Gault) 70.9 Glucose Level 243 mg/dL (70-99) Calcium Level 8.4 mg/dL (8.5-10.1) Magnesium Level 1.1 mg/dL (1.8-2.4) Test 09/16/19 07:39 Glucose (Fingerstick) 235 mg/dL (70-99) Laboratory Tests Test 09/15/19 11:41 09/15/19 16:52 09/15/19 20:16 09/16/19 06:15 Glucose (Fingerstick) 207 mg/dL (70-99) 156 mg/dL (70-99) 182 mg/dL (70-99) Sodium Level 141 mmol/L (136-145) Potassium Level 3.1 mmol/L (3.5-5.1) Chloride Level 104 mmol/L (98-107) Carbon Dioxide Level 25 mmol/L (21-32) Anion Gap 12 (6-14) Blood Urea Nitrogen 6 mg/dL (8-26) Creatinine 1.1 mg/dL (0.7-1.3) Estimated GFR (Cockcroft-Gault) 70.9 Glucose Level 243 mg/dL (70-99) Calcium Level 8.4 mg/dL (8.5-10.1) Magnesium Level 1.1 mg/dL (1.8-2.4) Test 09/16/19 07:39 Glucose (Fingerstick) 235 mg/dL (70-99) Medications Active Scripts Medications Dose Route/Sig Max Daily Dose Days Date Category Dose Instructions Doxycycline Hyclate 100 Mg Capsule 100 Mg PO BID 09/11/19 Reported Clindamycin Hcl 300 Mg Capsule 600 Mg PO BID 09/11/19 Reported Lidocaine PATCH (Lidocaine) 1 Each Adh..patch 1 Each TP DAILY 03/12/19 Reported REMOVE AFTER 12 HOURS Lisinopril 5 Mg Tablet 1 Tab PO DAILY PRN 03/12/19 Reported Percocet 7.5-325 Mg Tablet (Oxycodone/Acetaminophen) 1 Each Tablet 1 Tab PO PRN Q6HRS PRN 03/12/19 Reported Clonazepam 1 Mg Tablet 1 Mg PO BID 03/12/19 Reported Luana Carbonate 300 Mg Tablet 1 Tab PO BID 08/08/18 Reported Zanaflex (Tizanidine Hcl) 4 Mg Capsule 1 Cap PO TID PRN 08/25/15 Reported Janumet 50-1,000 Mg Tablet (Sitagliptin Phos/Metformin Hcl) 1 Each Tablet 1 Tab PO BID 01/17/15 Reported Doxepin Hcl 50 Mg Capsule 300 Mg PO HS 01/17/15 Reported Impression . 1. Abnormal CT of the abdomen with lower sections of the lungs showing some inflammatory changes involving the left lower lobe. This could be a combination of atelectasis from the abdominal process versus possibility of pneumonitis. The patient has been complaining of some cough with some brownish sputum. 2. No significant tobacco history. 3. Acute pancreatitis, being followed by GI. He is a nonalcoholic. Likely etiology appears to be gallstone pancreatitis-- S/P choly 4. Acute kidney injury, probably on chronic kidney disease-- resolved 5. Hyperglycemia, present on admission, improving. Plan . Pt. pulmonary status remains stable, remains on room air Continue ABX per ID Follow nephrology recs Follow surgery recs --S/P choly DVT prophylaxis with Lovenox. Discussed with RN Ok to D/C home from our standpoint HAMMAD MORILLO MD Sep 16, 2019 09:53
[2019-09-16 10:51] VITALS: BP 155/93
--- NOTE | 2019-09-16 11:23 | PDOC ---
PROGRESS NOTES Chief Complaint Chief Complaint discharge dx 1 Peripancreatic inflammatory changes compatible with acute pancreatitis. much of the gallbladder lumen is filled with gallstones and though no stone is definitively seen within the common bile duct, gallstone pancreatitis remains a consideration. 2. Ill-defined infiltrates involving the visualized left lower lung more so than the right. Sequela of aspiration or an atypical pneumonia may have this appearance. 3. mineralized nodule off the medial pole of the left kidney measuring around 1cm //calcified cyst would be the most likely etiology 4. hyperglycemia, uncontrolled nonketotic // diabetes 5. morbid obesity 6. intractable nausea, vomiting 7. JAQUAN 8. Pseudohyponatremia 9. hypokalemia, on replacement, PERSISTENT, REPLACING Continue chronic po clindamyicin 600mg po BID History of Present Illness History of Present Illness 09/16/2019 Patient seen and examined Chart reviewed Lipase is down into the 400s from the 700s 6/5 Laparoscopic cholecystectomy with intraoperative cholangiogram miah well POD # 2 67 Continue chronic po clindamyicin 600mg po BID D./W RN D/C PLANNING 34 MIN Operative Note Operative Note Operative Note Operative Note: Preoperative Diagnosis: Gallstone pancreatitis Postoperative Diagnosis: Same Procedure: Laparoscopic cholecystectomy with intraoperative cholangiogram 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 Estimated Blood Loss: 10 mL Specimen: Gallbladder to pathology Drains: None Complications: None Indications: The patient is a 49-year-old male who was admitted with prominent vomiting and abdominal pain. 09/11/2019 Patient seen and examined His mother is here helping (MARCUS Johnson) Discussed with RN Chart reviewed Called Dr. Isidro We have all agreed to put the patient on a clear liquid diet so he can take his home meds especially his psych meds Glucose is doing better at 120 Lipase was only 700 Patient clinically is doing okay but little depressed We are also going to consult infectious disease and orthopedics (he has a chronic knee infection and recent knee surgery) GI nurse practitioner Amelia just arrived to examine the patient as well Vitals Vitals Vital Signs Date Time Temp Pulse Resp B/P (MAP) Pulse Ox O2 Delivery O2 Flow Rate FiO2 09/16/19 10:51 99.0 105 18 155/93 (113) 96 Room Air 99.0 Physical Exam Physical Exam GENERAL: Lying down, alert, appears comfortable HENT: Oral cavity clear NECK: Supple LUNGS: Clear. HEART: S1, S2 regular. ABDOMEN: Obese,soft, nontender. dressing dry EXTREMITIES: No edema, cyanosis. SKIN: Warm to touch. Mild rash over the shoulders A small wound on left knee, granulating, no drainage. NEUROLOGIC: Alert and appropriate. No focal neurologic deficit. Right-sided CVC without signs of complications General: Alert, Oriented X3, Cooperative, No acute distress Heart: Regular rate, Normal S1, Normal S2, No murmurs Lungs: Clear Abdomen: Normal bowel sounds, Soft Extremities: No clubbing, No cyanosis, No edema Skin: No rashes Labs LABS Laboratory Tests Test 09/15/19 11:41 09/15/19 16:52 09/15/19 20:16 09/16/19 06:15 Glucose (Fingerstick) 207 mg/dL (70-99) 156 mg/dL (70-99) 182 mg/dL (70-99) Sodium Level 141 mmol/L (136-145) Potassium Level 3.1 mmol/L (3.5-5.1) Chloride Level 104 mmol/L (98-107) Carbon Dioxide Level 25 mmol/L (21-32) Anion Gap 12 (6-14) Blood Urea Nitrogen 6 mg/dL (8-26) Creatinine 1.1 mg/dL (0.7-1.3) Estimated GFR (Cockcroft-Gault) 70.9 Glucose Level 243 mg/dL (70-99) Calcium Level 8.4 mg/dL (8.5-10.1) Magnesium Level 1.1 mg/dL (1.8-2.4) Test 09/16/19 07:39 Glucose (Fingerstick) 235 mg/dL (70-99) Assessment and Plan Assessmemt and Plan Problems Medical Problems: (1) Acute kidney injury Status: Acute (2) Dehydration Status: Acute Comment Review of Relevant I have reviewed the following items blaze (where applicable) has been applied. Labs Laboratory Tests Test 09/14/19 11:27 09/14/19 16:37 09/14/19 21:02 09/15/19 07:26 Glucose (Fingerstick) 227 mg/dL (70-99) 203 mg/dL (70-99) 180 mg/dL (70-99) 174 mg/dL (70-99) Test 09/15/19 11:41 09/15/19 16:52 09/15/19 20:16 09/16/19 06:15 Glucose (Fingerstick) 207 mg/dL (70-99) 156 mg/dL (70-99) 182 mg/dL (70-99) Sodium Level 141 mmol/L (136-145) Potassium Level 3.1 mmol/L (3.5-5.1) Chloride Level 104 mmol/L (98-107) Carbon Dioxide Level 25 mmol/L (21-32) Anion Gap 12 (6-14) Blood Urea Nitrogen 6 mg/dL (8-26) Creatinine 1.1 mg/dL (0.7-1.3) Estimated GFR (Cockcroft-Gault) 70.9 Glucose Level 243 mg/dL (70-99) Calcium Level 8.4 mg/dL (8.5-10.1) Magnesium Level 1.1 mg/dL (1.8-2.4) Test 09/16/19 07:39 Glucose (Fingerstick) 235 mg/dL (70-99) Laboratory Tests Test 09/15/19 11:41 09/15/19 16:52 09/15/19 20:16 09/16/19 06:15 Glucose (Fingerstick) 207 mg/dL (70-99) 156 mg/dL (70-99) 182 mg/dL (70-99) Sodium Level 141 mmol/L (136-145) Potassium Level 3.1 mmol/L (3.5-5.1) Chloride Level 104 mmol/L (98-107) Carbon Dioxide Level 25 mmol/L (21-32) Anion Gap 12 (6-14) Blood Urea Nitrogen 6 mg/dL (8-26) Creatinine 1.1 mg/dL (0.7-1.3) Estimated GFR (Cockcroft-Gault) 70.9 Glucose Level 243 mg/dL (70-99) Calcium Level 8.4 mg/dL (8.5-10.1) Magnesium Level 1.1 mg/dL (1.8-2.4) Test 09/16/19 07:39 Glucose (Fingerstick) 235 mg/dL (70-99) Microbiology 09/10/19 Blood Culture - Final, Complete NO GROWTH AFTER 5 DAYS Medications Current Medications Sodium Chloride 1,000 ml @ 0 mls/hr 1X ONCE IV Last administered on 09/10/19at 11:06; Start 09/10/19 at 11:00; Stop 09/10/19 at 11:01; Status DC Ondansetron HCl (Zofran) 4 mg 1X ONCE IVP Last administered on 09/10/19at 11:06; Start 09/10/19 at 11:00; Stop 09/10/19 at 11:01; Status DC Sodium Chloride (Normal Saline Flush) 3 ml QSHIFT PRN IV AFTER MEDS AND BLOOD DRAWS Last administered on 09/10/19at 13:54; Start 09/10/19 at 13:15 Sodium Chloride 1,000 ml @ 100 mls/hr Q10H IV Last administered on 09/15/19at 09:11; Start 09/10/19 at 13:05 Ondansetron HCl (Zofran) 4 mg PRN Q4HRS PRN IV NAUSEA/VOMITING Last adm inistered on 09/15/19at 18:22; Start 09/10/19 at 13:15 Acetaminophen (Tylenol Supp) 650 mg PRN Q4HRS PRN IA TEMP OVER 100.4F OR MILD PAIN; Start 09/10/19 at 13:15 Clonidine HCl (Catapres) 0.1 mg PRN Q6HRS PRN PO SBP>160 OR DBP>90; Start 09/10/19 at 13:15 Docusate Sodium (Colace) 100 mg PRN BID PRN PO HARD STOOLS; Start 09/10/19 at 13:15 Albuterol/ Ipratropium (Duoneb) 3 ml Q4HRS NEB ; Start 09/10/19 at 16:00; Stop 09/10/19 at 19:57; Status DC Enoxaparin Sodium (Lovenox 40mg Syringe) 40 mg Q24H SQ Last administered on 09/15/19at 16:01; Start 09/10/19 at 15:00 Piperacillin Sod/ Tazobactam Sod 3.375 gm/Sodium Chloride 50 ml @ 100 mls/hr Q6HRS IV Last administered on 09/15/19at 06:02; Start 09/10/19 at 16:00; Stop 09/15/19 at 10:48; Status DC Insulin Human Regular 100 unit/ Sodium Chloride 101 ml @ 0 mls/hr CONT PRN IV SEE I/O RECORD Last administered on 09/10/19at 21:21; Start 09/10/19 at 13:15 Dextrose (Dextrose 50%-Water Syringe) 12.5 gm PRN Q15MIN PRN IV LOW BLOOD SUGAR; Start 09/10/19 at 13:15; Stop 09/10/19 at 21:06; Status DC Dextrose (Iv Dextrose 5%) 250 ml PRN Q15MIN PRN IV LOW BLOOD SUGAR; Start 09/10/19 at 13:15; Status Cancel Insulin Human Regular 0 ml @ As Directed STK-MED ONCE IV ; Start 09/10/19 at 13:47; Stop 09/10/19 at 13:47; Status DC Pantoprazole Sodium (PROTONIX VIAL for IV PUSH) 40 mg DAILYAC IVP Last administered on 09/12/19at 07:56; Start 09/11/19 at 07:30; Stop 09/12/19 at 10:15; Status DC Prochlorperazine Edisylate (Compazine) 10 mg PRN Q6HRS PRN IV NAUSEA/VOMITING- 2ND CHOICE Last administered on 09/10/19at 15:53; Start 09/10/19 at 15:45 Hydralazine HCl (Apresoline Inj) 10 mg PRN Q4HRS PRN IVP ELEVATED BP, SEE COMMENTS Last administered on 09/13/19at 09:05; Start 09/10/19 at 15:45 Potassium Chloride/Water 100 ml @ 100 mls/hr Q1H IV Last administered on 09/10/19at 21:20; Start 09/10/19 at 18:00; Stop 09/10/19 at 20:59; Status DC Potassium Phosphate 13.6 mmol/Sodium Chloride 254.5333 ml @ 62.5 mls/hr 1X ONCE IV Last administered on 09/10/19at 18:24; Start 09/10/19 at 18:00; Stop 09/10/19 at 22:04; Status DC Albuterol Sulfate (Ventolin Neb Soln) 2.5 mg PRN Q4HRS PRN NEB WHEEZING; Start 09/10/19 at 20:00 Insulin Human Lispro (HumaLOG) 0-7 UNITS TIDWMEALS SQ Last administered on 09/11/19 17:07; Start 09/11/19 at 08:00; Stop 09/11/19 at 18:15; Status DC Dextrose (Dextrose 50%-Water Syringe) 12.5 gm PRN Q15MIN PRN IV SEE COMMENTS; Start 09/10/19 at 21:15 Potassium Chloride/Water 100 ml @ 100 mls/hr Q1H IV Last administered on 09/11/19 10:05; Start 09/11/19 at 07:00; Stop 09/11/19 at 08:59; Status DC Lidocaine (Lidoderm) 1 patch DAILY TP Last administered on 09/16/19 08:07; Start 09/11/19 at 10:00 Lisinopril (Prinivil) 5 mg PRN DAILY PRN PO hypertension Last administered on 09/11/19 12:14; Start 09/11/19 at 09:45 Oxycodone/ Acetaminophen (Percocet 7.5/ 325) 1 tab PRN Q6HRS PRN PO MODERATE TO SEVERE PAIN Last administered on 09/13/19 17:30; Start 09/11/19 at 09:45; Stop 09/14/19 at 09:07; Status DC Clonazepam (KlonoPIN) 1 mg BID PO Last administered on 09/16/19 08:07; Start 09/11/19 at 10:00 Doxepin HCl (SINEquan) 300 mg QHS PO ; Start 09/11/19 at 21:00; Status Cancel Rarden Carbonate (Lithobid) 300 mg BID PO Last administered on 09/16/19 08:07; Start 09/11/19 at 10:00 Metformin HCl (Glucophage) 1,000 mg BIDWMEALS PO ; Start 09/11/19 at 10:00; Stop 09/11/19 at 12:45; Status DC Tizanidine HCl (Zanaflex) 1 mg PRN TID PRN PO MUSCLE SPASTICITY Last administered on 09/13/19 12:11; Start 09/11/19 at 09:45 Linagliptin (Tradjenta) 5 mg DAILY PO Last administered on 09/16/19 08:07; Start 09/11/19 at 10:00 Miscellaneous (Lidoderm Patch Removal) 1 ea QHS MC Last administered on 09/13/19 21:00; Start 09/11/19 at 21:00 Non-Formulary Medication 2 ea QHS PO Last administered on 09/15/19 21:13; Start 09/11/19 at 21:00 Insulin Human Lispro (HumaLOG) 0-7 UNITS QIDACHS SQ Last administered on 09/16/19 08:14; Start 09/11/19 at 21:00 Pantoprazole Sodium (Protonix) 40 mg DAILYAC PO Last administered on 09/16/19 08:07; Start 09/13/19 at 07:30 Lactobacillus Rhamnosus (Culturelle) 1 cap BID PO Last administered on 09/16/19 08:07; Start 09/12/19 at 21:00 Guaifenesin (Robitussin Dm) 10 ml PRN Q4HRS PRN PO COUGH Last administered on 09/14/19 11:25; Start 09/13/19 at 13:00 Iohexol (Omnipaque 240 Mg/ml) 30 ml 1X ONCE PO Last administered on 09/13/19 13:30; Start 09/13/19 at 13:30; Stop 09/13/19 at 13:31; Status DC Iohexol (Omnipaque 300 Mg/ml) 60 ml 1X ONCE IV Last administered on 09/13/19 13:30; Start 09/13/19 at 13:30; Stop 09/13/19 at 13:31; Status DC Info (CONTRAST GIVEN -- Rx MONITORING) 1 each PRN DAILY PRN MC SEE COMMENTS; Start 09/13/19 at 13:45; Stop 09/15/19 at 13:44; Status DC Rocuronium Hailey (Zemuron) 50 mg STK-MED ONCE .ROUTE ; Start 09/14/19 at 07:14; Stop 09/14/19 at 07:15; Status DC Sevoflurane (Ultane) 90 ml STK-MED ONCE IH ; Start 09/14/19 at 07:15; Stop 09/14/19 at 07:15; Status DC Propofol (Diprivan) 200 mg STK-MED ONCE IV ; Start 09/14/19 at 07:15; Stop 09/14/19 at 07:15; Status DC Ondansetron HCl (Zofran) 4 mg STK-MED ONCE .ROUTE ; Start 09/14/19 at 07:15; Stop 09/14/19 at 07:15; Status DC Lidocaine HCl (Lidocaine Pf 2% Vial) 5 ml STK-MED ONCE .ROUTE ; Start 09/14/19 at 07:15; Stop 09/14/19 at 07:15; Status DC Dexamethasone Sodium Phosphate (Decadron) 4 mg STK-MED ONCE .ROUTE ; Start 09/14/19 at 07:15; Stop 09/14/19 at 07:15; Status DC Iohexol (Omnipaque 300 Mg/ml) 50 ml STK-MED ONCE .ROUTE Last administered on 09/14/19at 08:11; Start 09/14/19 at 07:17; Stop 09/14/19 at 07:17; Status DC Cellulose (Surgicel Hemostat 4x8) 1 each STK-MED ONCE .ROUTE ; Start 09/14/19 at 07:17; Stop 09/14/19 at 07:17; Status DC Bupivacaine HCl (Sensorcaine Mpf 0.5%) 30 ml STK-MED ONCE .ROUTE Last administered on 09/14/19at 08:06; Start 09/14/19 at 07:17; Stop 09/14/19 at 07:18; Status DC Ondansetron HCl (Zofran) 4 mg PRN Q6HRS PRN IV NAUSEA/VOMITING; Start 09/14/19 at 07:30; Stop 09/15/19 at 07:29; Status DC Fentanyl Citrate (Fentanyl 2ml Vial) 25 mcg PRN Q5MIN PRN IV MILD PAIN 1-3; Start 09/14/19 at 07:30; Stop 09/15/19 at 07:29; Status DC Fentanyl Citrate (Fentanyl 2ml Vial) 50 mcg PRN Q5MIN PRN IV MODERATE TO SEVERE PAIN; Start 09/14/19 at 07:30; Stop 09/15/19 at 07:29; Status DC Morphine Sulfate (Morphine Sulfate) 1 mg PRN Q10MIN PRN IV SEVERE PAIN 7-10; Start 09/14/19 at 07:30; Stop 09/15/19 at 07:29; Status DC Ringer's Solution 1,000 ml @ 30 mls/hr Q24H IV ; Start 09/14/19 at 07:21; Stop 09/14/19 at 19:20; Status DC Hydromorphone HCl (Dilaudid) 0.5 mg PRN Q10MIN PRN IV SEV PAIN, Second choice; Start 09/14/19 at 07:30; Stop 09/15/19 at 07:29; Status DC Prochlorperazine Edisylate (Compazine) 5 mg PACU PRN PRN IV NAUSEA, MRX1; Start 09/14/19 at 07:30; Stop 09/15/19 at 07:29; Status DC Rocuronium Hailey (Zemuron) 50 mg STK-MED ONCE .ROUTE ; Start 09/14/19 at 07:26; Stop 09/14/19 at 07:27; Status DC Fentanyl Citrate (Fentanyl 2ml Vial) 100 mcg STK-MED ONCE .ROUTE ; Start 09/14/19 at 07:27; Stop 09/14/19 at 07:27; Status DC Glycopyrrolate (Robinul) 1 mg STK-MED ONCE .ROUTE ; Start 09/14/19 at 07:31; Stop 09/14/19 at 07:32; Status DC Neostigmine Hailey (Neostigmine Methylsulfate) 5 mg STK-MED ONCE .ROUTE ; Start 09/14/19 at 07:31; Stop 09/14/19 at 07:32; Status DC Phenylephrine HCl (PHENYLEPHRINE in 0.9% NACL PF) 1 mg STK-MED ONCE IV ; Start 09/14/19 at 08:13; Stop 09/14/19 at 08:13; Status DC Ephedrine Sulfate (ePHEDrine PF IN SALINE SYRINGE) 50 mg STK-MED ONCE IV ; Start 09/14/19 at 08:16; Stop 09/14/19 at 08:16; Status DC Vasopressin (Vasostrict) 20 unit STK-MED ONCE .ROUTE ; Start 09/14/19 at 08:17; Stop 09/14/19 at 08:18; Status DC Fentanyl Citrate (Fentanyl 2ml Vial) 100 mcg STK-MED ONCE .ROUTE ; Start 09/14/19 at 08:55; Stop 09/14/19 at 08:55; Status DC Oxycodone/ Acetaminophen (Percocet 5/325) 1 tab PRN Q4HRS PRN PO MODERATE PAIN Last administered on 09/14/19at 21:26; Start 09/14/19 at 09:15 Oxycodone/ Acetaminophen (Percocet 5/325) 2 tab PRN Q4HRS PRN PO SEVERE PAIN Last administered on 09/16/19at 08:08; Start 09/14/19 at 09:15 Insulin Human Lispro (HumaLOG VIAL for OP,RR ONLY) 0-10 units PRN Q1HR PRN SQ PER PROTOCOL Last administered on 09/14/19at 09:45; Start 09/14/19 at 09:45; Stop 09/15/19 at 09:44; Status DC Clindamycin HCl (Cleocin) 600 mg BID PO Last administered on 09/16/19at 09:28; Start 09/15/19 at 12:00 Potassium Chloride (Klor-Con) 20 meq 1X ONCE PO Last administered on 09/15/19at 12:50; Start 09/15/19 at 12:30; Stop 09/15/19 at 12:31; Status DC Active Scripts Active Reported Doxycycline Hyclate 100 Mg Capsule 100 Mg PO BID Clindamycin Hcl 300 Mg Capsule 600 Mg PO BID Lidocaine PATCH (Lidocaine) 1 Each Adh..patch 1 Each TP DAILY REMOVE AFTER 12 HOURS Lisinopril 5 Mg Tablet 1 Tab PO DAILY PRN Percocet 7.5-325 Mg Tablet (Oxycodone/Acetaminophen) 1 Each Tablet 1 Tab PO PRN Q6HRS PRN Clonazepam 1 Mg Tablet 1 Mg PO BID Rarden Carbonate 300 Mg Tablet 1 Tab PO BID Zanaflex (Tizanidine Hcl) 4 Mg Capsule 1 Cap PO TID PRN Janumet 50-1,000 Mg Tablet (Sitagliptin Phos/Metformin Hcl) 1 Each Tablet 1 Tab PO BID Doxepin Hcl 50 Mg Capsule 300 Mg PO HS Vitals/I & O Vital Sign - Last 24 Hours 09/15/19 09/15/19 09/15/19 09/16/19 15:00 19:00 23:00 03:00 Temp 98.4 98.4 98.2 98.8 98.4 98.4 98.2 98.8 Pulse 99 101 105 98 Resp 18 20 18 20 B/P (MAP) 158/88 (111) 171/96 (121) 137/74 (95) 137/83 (101) Pulse Ox 100 99 94 98 O2 Delivery Room Air Room Air Room Air 09/16/19 09/16/19 09/16/19 09/16/19 07:00 07:46 08:08 09:10 Temp 97.3 97.3 Pulse 102 Resp 18 B/P (MAP) 152/93 (112) Pulse Ox 98 O2 Delivery Room Air Room Air Room Air Room Air 09/16/19 10:51 Temp 99.0 99.0 Pulse 105 Resp 18 B/P (MAP) 155/93 (113) Pulse Ox 96 O2 Delivery Room Air Intake and Output 09/15/19 09/15/19 09/16/19 15:00 23:00 07:00 Intake Total 400 ml 120 ml Balance 400 ml 120 ml Nutrition Consultation Dietary Evaluation: Recommendations by RD: Dietary education by RD, Increase Calorie Intake, Protein supplementation Comments: Advance diet per surgery, goal diet caridac/ADA w/supplements per pt preference REC short-term non-oral nutrition (PPN or dobhoff/TFs) if unable to advance diet REC Juaquin, MVI for wound healing (dehisced incision) Expected Outcomes/Goals: diet advancement - not met, goal ongoing Interpretation of weight loss: >7.5% in 3 months Malnutrition Findings: Food and Nutrition Intake (Sev: <50% est energy req 5days Weight Status: Obese JAMAL MORRIS MD Sep 16, 2019 11:23
[2019-09-16] MEDS ORDERED: POTASSIUM CHLORIDE 20 MEQ TABLET.ER. PO ONE (11:30)
--- NOTE | 2019-09-16 11:57 | PDOC ---
Renal-Progress Notes Subjective Notes Notes NO NEW COMPLAINTS History of Present Illness Hx of present illness STABLE Vitals Vitals Vital Signs Date Time Temp Pulse Resp B/P (MAP) Pulse Ox O2 Delivery O2 Flow Rate FiO2 09/16/19 10:51 99.0 105 18 155/93 (113) 96 Room Air 99.0 Weight Weight [ ] I.O. Intake and Output Intake and Output 09/16/19 07:00 Intake Total 520 ml Balance 520 ml Intake Oral 520 ml # Voids 3 Labs Labs Laboratory Tests Test 09/15/19 16:52 09/15/19 20:16 09/16/19 06:15 09/16/19 07:39 Glucose (Fingerstick) 156 mg/dL (70-99) 182 mg/dL (70-99) 235 mg/dL (70-99) Sodium Level 141 mmol/L (136-145) Potassium Level 3.1 mmol/L (3.5-5.1) Chloride Level 104 mmol/L (98-107) Carbon Dioxide Level 25 mmol/L (21-32) Anion Gap 12 (6-14) Blood Urea Nitrogen 6 mg/dL (8-26) Creatinine 1.1 mg/dL (0.7-1.3) Estimated GFR (Cockcroft-Gault) 70.9 Glucose Level 243 mg/dL (70-99) Calcium Level 8.4 mg/dL (8.5-10.1) Magnesium Level 1.1 mg/dL (1.8-2.4) Test 09/16/19 11:38 Glucose (Fingerstick) 206 mg/dL (70-99) Micro Micro Microbiology 09/10/19 Blood Culture - Final, Complete NO GROWTH AFTER 5 DAYS Review of Systems Constitutional: yes: alert Ears/Nose/Throat: Yes: no symptom reported Eyes: Yes: no symptom reported Pulmonary: Yes no symptom reported Gastrointestional: Yes: constipation Musculoskeletal: Yes: muscle pain Skin: Yes no symptom reported Psychiatric/Neurological: Yes: no symptom reported Endocrine: Yes: no symptom reported Physical Exam General Appearance: no apparent distress Skin: warm Respiratory: decreased breath sounds Heart: S1S2 Abdomen: soft, bowel sounds present Genitourinary: bladder flat Neurology: alert, oriented Assessment Assessment IMP JAQUAN - RESOLVED LEFT RENAL CYST-PROB CALCIFIED-F/U IN 6 MONTHS HYPOKALEMIA HYPOMAGNESEMIA BIPOLAR DM II HTN PLAN REPLACE K AND MG DECREASE IVF ENC PO ELIZABETH ORTIZ MD Sep 16, 2019 11:57
[2019-09-16] MEDS ORDERED: MAGNESIUM SULFATE 2GM 50 ML IV ONE (13:00)
--- NOTE | 2019-09-16 14:00 | PDOC3 ---
Discharge Summary Date of Admission: Sep 10, 2019 Date of Discharge: Sep 16, 2019 Follow-Up: 3-5 days Admitting Diagnosis comment: discharge dx 1 Peripancreatic inflammatory changes compatible with acute pancreatitis. much of the gallbladder lumen is filled with gallstones and though no stone is definitively seen within the common bile duct, gallstone pancreatitis remains a consideration. 2. Ill-defined infiltrates involving the visualized left lower lung more so than the right. Sequela of aspiration or an atypical pneumonia may have this appearance. 3. mineralized nodule off the medial pole of the left kidney measuring around 1cm //calcified cyst would be the most likely etiology 4. hyperglycemia, uncontrolled nonketotic // diabetes 5. morbid obesity 6. intractable nausea, vomiting 7. JAQUAN 8. Pseudohyponatremia 9. hypokalemia, on replacement, PERSISTENT, REPLACING Continue chronic po clindamyicin 600mg po BID History of Present Illness History of Present Illness 09/16/2019 Patient seen and examined Chart reviewed 09/13 Laparoscopic cholecystectomy with intraoperative cholangiogram miah well POD # 2 09/15 Continue chronic po clindamyicin 600mg po BID D./W RN D/C PLANNING 34 MIN Operative Note Operative Note Operative Note Operative Note: Preoperative Diagnosis: Gallstone pancreatitis Postoperative Diagnosis: Same Procedure: Laparoscopic cholecystectomy with intraoperative cholangiogram Surgeons: [employer] Specialist: Aron WING Anesthesia: Gen. Estimated Blood Loss: 10 mL Specimen: Gallbladder to pathology Drains: None Complications: None Indications: The patient is a 49-year-old male who was admitted with prominent vomiting and abdominal pain. 09/11/2019 Patient seen and examined His mother is here helping (MARCUS Johnson) Discussed with RN Chart reviewed Called Dr. Isidro We have all agreed to put the patient on a clear liquid diet so he can take his home meds especially his psych meds Glucose is doing better at 120 Lipase was only 700 Patient clinically is doing okay but little depressed We are also going to consult infectious disease and orthopedics (he has a chronic knee infection and recent knee surgery) GI nurse practitioner Amelia just arrived to examine the patient as well Vitals Vitals Vital Signs Date Time Temp Pulse Resp B/P (MAP) Pulse Ox O2 Delivery O2 Flow Rate FiO2 09/16/19 10:51 99.0 105 18 155/93 (113) 96 Room Air 99.0 Physical Exam Physical Exam GENERAL: Lying down, alert, appears comfortable HENT: Oral cavity clear NECK: Supple LUNGS: Clear. HEART: S1, S2 regular. ABDOMEN: Obese,soft, nontender. dressing dry EXTREMITIES: No edema, cyanosis. SKIN: Warm to touch. Mild rash over the shoulders A small wound on left knee, granulating, no drainage. NEUROLOGIC: Alert and appropriate. No focal neurologic deficit. Right-sided CVC without signs of complications General: Alert, Oriented X3, Cooperative, No acute distress Heart: Regular rate, Normal S1, Normal S2, No murmurs Lungs: Clear Abdomen: Normal bowel sounds, Soft Extremities: No clubbing, No cyanosis, No edema Skin: No rashes FINAL DIAGNOSIS Problems Medical Problems: (1) Acute kidney injury Status: Acute (2) Dehydration Status: Acute Brief Hospital Course Mr. Aggarwal is a 49 old [sex] who presented with [ GALLSTONE PANCREATITIS] CONDITION AT DISCHARGE: Improved Discharge Medications Current Medications Sodium Chloride 1,000 ml @ 0 mls/hr 1X ONCE IV Last administered on 09/10/19at 11:06; Start 09/10/19 at 11:00; Stop 09/10/19 at 11:01; Status DC Ondansetron HCl (Zofran) 4 mg 1X ONCE IVP Last administered on 09/10/19at 11:06; Start 09/10/19 at 11:00; Stop 09/10/19 at 11:01; Status DC Sodium Chloride (Normal Saline Flush) 3 ml QSHIFT PRN IV AFTER MEDS AND BLOOD DRAWS Last administered on 09/10/19at 13:54; Start 09/10/19 at 13:15 Sodium Chloride 1,000 ml @ 60 mls/hr [id number] IV Last administered on 09/15/19at 09:11; Start 09/10/19 at 13:05 Ondansetron HCl (Zofran) 4 mg PRN Q4HRS PRN IV NAUSEA/VOMITING Last admin istered on 09/15/19at 18:22; Start 09/10/19 at 13:15 Acetaminophen (Tylenol Supp) 650 mg PRN Q4HRS PRN CA TEMP OVER 100.4F OR MILD PAIN; Start 09/10/19 at 13:15 Clonidine HCl (Catapres) 0.1 mg PRN Q6HRS PRN PO SBP>160 OR DBP>90; Start 09/10/19 at 13:15 Docusate Sodium (Colace) 100 mg PRN BID PRN PO HARD STOOLS; Start 09/10/19 at 13:15 Albuterol/ Ipratropium (Duoneb) 3 ml Q4HRS NEB ; Start 09/10/19 at 16:00; Stop 09/10/19 at 19:57; Status DC Enoxaparin Sodium (Lovenox 40mg Syringe) 40 mg Q24H SQ Last administered on 09/15/19at 16:01; Start 09/10/19 at 15:00 Piperacillin Sod/ Tazobactam Sod 3.375 gm/Sodium Chloride 50 ml @ 100 mls/hr Q6HRS IV Last administered on 09/15/19at 06:02; Start 09/10/19 at 16:00; Stop 09/15/19 at 10:48; Status DC Insulin Human Regular 100 unit/ Sodium Chloride 101 ml @ 0 mls/hr CONT PRN IV SEE I/O RECORD Last administered on 09/10/19at 21:21; Start 09/10/19 at 13:15 Dextrose (Dextrose 50%-Water Syringe) 12.5 gm PRN Q15MIN PRN IV LOW BLOOD SUGAR; Start 09/10/19 at 13:15; Stop 09/10/19 at 21:06; Status DC Dextrose (Iv Dextrose 5%) 250 ml PRN Q15MIN PRN IV LOW BLOOD SUGAR; Start 09/10/19 at 13:15; Status Cancel Insulin Human Regular 0 ml @ As Directed STK-MED ONCE IV ; Start 09/10/19 at 13:47; Stop 09/10/19 at 13:47; Status DC Pantoprazole Sodium (PROTONIX VIAL for IV PUSH) 40 mg DAILYAC IVP Last administered on 09/12/19at 07:56; Start 09/11/19 at 07:30; Stop 09/12/19 at 10:15; Status DC Prochlorperazine Edisylate (Compazine) 10 mg PRN Q6HRS PRN IV NAUSEA/VOMITING- 2ND CHOICE Last administered on 09/10/19at 15:53; Start 09/10/19 at 15:45 Hydralazine HCl (Apresoline Inj) 10 mg PRN Q4HRS PRN IVP ELEVATED BP, SEE COMMENTS Last administered on 09/13/19 09:05; Start 09/10/19 at 15:45 Potassium Chloride/Water 100 ml @ 100 mls/hr Q1H IV Last administered on at 21:20; Start 09/10/19 at 18:00; Stop 09/10/19 at 20:59; Status DC Potassium Phosphate 13.6 mmol/Sodium Chloride 254.5333 ml @ 62.5 mls/hr 1X ONCE IV Last administered on 09/10/19at 18:24; Start 09/10/19 at 18:00; Stop 09/10/19 at 22:04; Status DC Albuterol Sulfate (Ventolin Neb Soln) 2.5 mg PRN Q4HRS PRN NEB WHEEZING; Start 09/10/19 at 20:00 Insulin Human Lispro (HumaLOG) 0-7 UNITS TIDWMEALS SQ Last administered on 09/11/19at 17:07; Start 09/11/19 at 08:00; Stop 09/11/19 at 18:15; Status DC Dextrose (Dextrose 50%-Water Syringe) 12.5 gm PRN Q15MIN PRN IV SEE COMMENTS; Start 09/10/19 at 21:15 Potassium Chloride/Water 100 ml @ 100 mls/hr Q1H IV Last administered on 09/11/19at 10:05; Start 09/11/19 at 07:00; Stop 09/11/19 at 08:59; Status DC Lidocaine (Lidoderm) 1 patch DAILY TP Last administered on 09/16/19at 08:07; Start 09/11/19 at 10:00 Lisinopril (Prinivil) 5 mg PRN DAILY PRN PO hypertension Last administered on 09/11/19at 12:14; Start 09/11/19 at 09:45 Oxycodone/ Acetaminophen (Percocet 7.5/ 325) 1 tab PRN Q6HRS PRN PO MODERATE TO SEVERE PAIN Last administered on 09/13/19at 17:30; Start 09/11/19 at 09:45; Stop 09/14/19 at 09:07; Status DC Clonazepam (KlonoPIN) 1 mg BID PO Last administered on 09/16/19at 08:07; Start 09/11/19 at 10:00 Doxepin HCl (SINEquan) 300 mg QHS PO ; Start 09/11/19 at 21:00; Status Cancel [place] Carbonate (Lithobid) 300 mg BID PO Last administered on 09/16/19 08:07; Start 09/11/19 at 10:00 Metformin HCl (Glucophage) 1,000 mg BIDWMEALS PO ; Start 09/11/19 at 10:00; Stop 09/11/19 at 12:45; Status DC Tizanidine HCl (Zanaflex) 1 mg PRN TID PRN PO MUSCLE SPASTICITY Last administered on 09/13/19 12:11; Start 09/11/19 at 09:45 Linagliptin (Tradjenta) 5 mg DAILY PO Last administered on 09/16/19 08:07; Start 09/11/19 at 10:00 Miscellaneous (Lidoderm Patch Removal) 1 ea QHS MC Last administered on 09/13/19 21:00; Start 09/11/19 at 21:00 Non-Formulary Medication 2 ea QHS PO Last administered on 09/15/19 21:13; Start 09/11/19 at 21:00 Insulin Human Lispro (HumaLOG) 0-7 UNITS QIDACHS SQ Last administered on 09/16/19 12:05; Start 09/11/19 at 21:00 Pantoprazole Sodium (Protonix) 40 mg DAILYAC PO Last administered on 09/16/19 08:07; Start 09/13/19 at 07:30 Lactobacillus Rhamnosus (Culturelle) 1 cap BID PO Last administered on 09/16/19 08:07; Start 09/12/19 at 21:00 Guaifenesin (Robitussin Dm) 10 ml PRN Q4HRS PRN PO COUGH Last administered on 09/14/19 11:25; Start 09/13/19 at 13:00 Iohexol (Omnipaque 240 Mg/ml) 30 ml 1X ONCE PO Last administered on 09/13/19 13:30; Start 09/13/19 at 13:30; Stop 09/13/19 at 13:31; Status DC Iohexol (Omnipaque 300 Mg/ml) 60 ml 1X ONCE IV Last administered on 6/4/20at 13:30; Start 09/13/19 at 13:30; Stop 09/13/19 at 13:31; Status DC Info (CONTRAST GIVEN -- Rx MONITORING) 1 each PRN DAILY PRN MC SEE COMMENTS; Start 09/13/19 at 13:45; Stop 09/15/19 at 13:44; Status DC Rocuronium [place] (Zemuron) 50 mg STK-MED ONCE .ROUTE ; Start 09/14/19 at 07:14; Stop 09/14/19 at 07:15; Status DC Sevoflurane (Ultane) 90 ml STK-MED ONCE IH ; Start 09/14/19 at 07:15; Stop 09/14/19 at 07:15; Status DC Propofol (Diprivan) 200 mg STK-MED ONCE IV ; Start 09/14/19 at 07:15; Stop 09/14/19 at 07:15; Status DC Ondansetron HCl (Zofran) 4 mg STK-MED ONCE .ROUTE ; Start 09/14/19 at 07:15; Stop 09/14/19 at 07:15; Status DC Lidocaine HCl (Lidocaine Pf 2% Vial) 5 ml STK-MED ONCE .ROUTE ; Start 09/14/19 at 07:15; Stop 09/14/19 at 07:15; Status DC Dexamethasone Sodium Phosphate (Decadron) 4 mg STK-MED ONCE .ROUTE ; Start 09/14/19 at 07:15; Stop 09/14/19 at 07:15; Status DC Iohexol (Omnipaque 300 Mg/ml) 50 ml STK-MED ONCE .ROUTE Last administered on 09/14/19at 08:11; Start 09/14/19 at 07:17; Stop 09/14/19 at 07:17; Status DC Cellulose (Surgicel Hemostat 4x8) 1 each STK-MED ONCE .ROUTE ; Start 09/14/19 at 07:17; Stop 09/14/19 at 07:17; Status DC Bupivacaine HCl (Sensorcaine Mpf 0.5%) 30 ml STK-MED ONCE .ROUTE Last administered on 09/14/19at 08:06; Start 09/14/19 at 07:17; Stop 09/14/19 at 07:18; Status DC Ondansetron HCl (Zofran) 4 mg PRN Q6HRS PRN IV NAUSEA/VOMITING; Start 09/14/19 at 07:30; Stop 09/15/19 at 07:29; Status DC Fentanyl Citrate (Fentanyl 2ml Vial) 25 mcg PRN Q5MIN PRN IV MILD PAIN 1-3; Start 09/14/19 at 07:30; Stop 09/15/19 at 07:29; Status DC Fentanyl Citrate (Fentanyl 2ml Vial) 50 mcg PRN Q5MIN PRN IV MODERATE TO SEVERE PAIN; Start 09/14/19 at 07:30; Stop 09/15/19 at 07:29; Status DC Morphine Sulfate (Morphine Sulfate) 1 mg PRN Q10MIN PRN IV SEVERE PAIN 7-10; Start 09/14/19 at 07:30; Stop 09/15/19 at 07:29; Status DC Ringer's Solution 1,000 ml @ 30 mls/hr Q24H IV ; Start 09/14/19 at 07:21; Stop 09/14/19 at 19:20; Status DC Hydromorphone HCl (Dilaudid) 0.5 mg PRN Q10MIN PRN IV SEV PAIN, Second choice; Start 09/14/19 at 07:30; Stop 09/15/19 at 07:29; Status DC Prochlorperazine Edisylate (Compazine) 5 mg PACU PRN PRN IV NAUSEA, MRX1; Start 09/14/19 at 07:30; Stop 09/15/19 at 07:29; Status DC Rocuronium [place] (Zemuron) 50 mg STK-MED ONCE .ROUTE ; Start 09/14/19 at 07:26; Stop 09/14/19 at 07:27; Status DC Fentanyl Citrate (Fentanyl 2ml Vial) 100 mcg STK-MED ONCE .ROUTE ; Start 09/14/19 at 07:27; Stop 09/14/19 at 07:27; Status DC Glycopyrrolate (Robinul) 1 mg STK-MED ONCE .ROUTE ; Start 09/14/19 at 07:31; Stop 09/14/19 at 07:32; Status DC Neostigmine [place] (Neostigmine Methylsulfate) 5 mg STK-MED ONCE .ROUTE ; Start 09/14/19 at 07:31; Stop 09/14/19 at 07:32; Status DC Phenylephrine HCl (PHENYLEPHRINE in 0.9% NACL PF) 1 mg STK-MED ONCE IV ; Start 09/14/19 at 08:13; Stop 09/14/19 at 08:13; Status DC Ephedrine Sulfate (ePHEDrine PF IN SALINE SYRINGE) 50 mg STK-MED ONCE IV ; Start 09/14/19 at 08:16; Stop 09/14/19 at 08:16; Status DC Vasopressin (Vasostrict) 20 unit STK-MED ONCE .ROUTE ; Start 09/14/19 at 08:17; Stop 09/14/19 at 08:18; Status DC Fentanyl Citrate (Fentanyl 2ml Vial) 100 mcg STK-MED ONCE .ROUTE ; Start 09/14/19 at 08:55; Stop 09/14/19 at 08:55; Status DC Oxycodone/ Acetaminophen (Percocet 5/325) 1 tab PRN Q4HRS PRN PO MODERATE PAIN Last administered on 09/14/19at 21:26; Start 09/14/19 at 09:15 Oxycodone/ Acetaminophen (Percocet 5/325) 2 tab PRN Q4HRS PRN PO SEVERE PAIN Last administered on 09/16/19at 08:08; Start 09/14/19 at 09:15 Insulin Human Lispro (HumaLOG VIAL for OP,RR ONLY) 0-10 units PRN Q1HR PRN SQ PER PROTOCOL Last administered on 09/14/19at 09:45; Start 09/14/19 at 09:45; Stop 09/15/19 at 09:44; Status DC Clindamycin HCl (Cleocin) 600 mg BID PO Last administered on 09/16/19at 09:28; Start 09/15/19 at 12:00 Potassium Chloride (Klor-Con) 20 meq 1X ONCE PO Last administered on 09/15/19at 12:50; Start 09/15/19 at 12:30; Stop 09/15/19 at 12:31; Status DC Potassium Chloride (Klor-Con) 40 meq 1X ONCE PO Last administered on 09/16/19at 12:01; Start 09/16/19 at 11:30; Stop 09/16/19 at 11:31; Status DC Potassium Chloride (Klor-Con) 20 meq DAILYWBKFT PO ; Start 09/17/19 at 08:00 Magnesium Sulfate 50 ml @ 25 mls/hr 1X ONCE IV Last administered on 09/16/19at 12:20; Start 09/16/19 at 13:00; Stop 09/16/19 at 14:59 Active Scripts Active Reported Doxycycline Hyclate 100 Mg Capsule 100 Mg PO BID Clindamycin Hcl 300 Mg Capsule 600 Mg PO BID Lidocaine PATCH (Lidocaine) 1 Each Adh..patch 1 Each TP DAILY REMOVE AFTER 12 HOURS Lisinopril 5 Mg Tablet 1 Tab PO DAILY PRN Percocet 7.5-325 Mg Tablet (Oxycodone/Acetaminophen) 1 Each Tablet 1 Tab PO PRN Q6HRS PRN Clonazepam 1 Mg Tablet 1 Mg PO BID Paton Carbonate 300 Mg Tablet 1 Tab PO BID Zanaflex (Tizanidine Hcl) 4 Mg Capsule 1 Cap PO TID PRN Janumet 50-1,000 Mg Tablet (Sitagliptin Phos/Metformin Hcl) 1 Each Tablet 1 Tab PO BID Doxepin Hcl 50 Mg Capsule 300 Mg PO HS Vital Signs Vital Signs Date Time Temp Pulse Resp B/P (MAP) Pulse Ox O2 Delivery O2 Flow Rate FiO2 09/16/19 10:51 99.0 105 18 155/93 (113) 96 Room Air 99.0 Labs Laboratory Tests Test 09/14/19 16:37 09/14/19 21:02 09/15/19 07:26 09/15/19 11:41 Glucose (Fingerstick) 203 mg/dL (70-99) 180 mg/dL (70-99) 174 mg/dL (70-99) 207 mg/dL (70-99) Test 09/15/19 16:52 09/15/19 20:16 09/16/19 06:15 09/16/19 07:39 Glucose (Fingerstick) 156 mg/dL (70-99) 182 mg/dL (70-99) 235 mg/dL (70-99) Sodium Level 141 mmol/L (136-145) Potassium Level 3.1 mmol/L (3.5-5.1) Chloride Level 104 mmol/L (98-107) Carbon Dioxide Level 25 mmol/L (21-32) Anion Gap 12 (6-14) Blood Urea Nitrogen 6 mg/dL (8-26) Creatinine 1.1 mg/dL (0.7-1.3) Estimated GFR (Cockcroft-Gault) 70.9 Glucose Level 243 mg/dL (70-99) Calcium Level 8.4 mg/dL (8.5-10.1) Magnesium Level 1.1 mg/dL (1.8-2.4) Test 09/16/19 11:38 Glucose (Fingerstick) 206 mg/dL (70-99) Laboratory Tests Test 09/15/19 16:52 09/15/19 20:16 09/16/19 06:15 09/16/19 07:39 Glucose (Fingerstick) 156 mg/dL (70-99) 182 mg/dL (70-99) 235 mg/dL (70-99) Sodium Level 141 mmol/L (136-145) Potassium Level 3.1 mmol/L (3.5-5.1) Chloride Level 104 mmol/L (98-107) Carbon Dioxide Level 25 mmol/L (21-32) Anion Gap 12 (6-14) Blood Urea Nitrogen 6 mg/dL (8-26) Creatinine 1.1 mg/dL (0.7-1.3) Estimated GFR (Cockcroft-Gault) 70.9 Glucose Level 243 mg/dL (70-99) Calcium Level 8.4 mg/dL (8.5-10.1) Magnesium Level 1.1 mg/dL (1.8-2.4) Test 09/16/19 11:38 Glucose (Fingerstick) 206 mg/dL (70-99) Allergies Allergies Coded Allergies Type Severity Reaction Last Updated Verified daptomycin Allergy Intermediate chills, nausea 08/09/19 Yes ketamine Allergy Intermediate 09/13/19 Yes I S O L A T I O N *CONTACT* Allergy Unknown Unknown 08/14/19 Yes No Known Medication Allergies Allergy Unknown Unknown 08/14/19 Yes Disposition/Orders: D/C to Home Justicifation of Admission Dx: Justifications for Admission: Justification of Admission Dx: Yes Comminuty Aquired Pneumonia: Hemodynamic Instability Acute Renal Failure: RF Can't Be Managed Outpt Sepsis: Dehydration JAMAL MORRIS MD Sep 16, 2019 14:00
[2019-09-16] MEDS ORDERED: DOCU-153 PO (14:06)
[2019-09-16] MEDS ORDERED: INSU100I11 SQ (14:06)
[2019-09-16] MEDS ORDERED: POTA20TA4 PO (14:06)
[2019-09-16] MEDS ORDERED: LACT1CAP19 PO (14:06)
[2019-09-16] MEDS ORDERED: PANT40TA77 PO (14:06)
[2019-09-16] MEDS ORDERED: ALBU2.5V8 NEB (14:06)
--- NOTE | 2019-09-16 14:08 | DISCH ---
DISCHARGE INSTRUCTIONS Condition on Discharge Condition on Discharge: Stable Activity After Discharge Activity Instructions for Disc: Activity as tolerated Bathing Instructions: Shower-keep dressing dry, No Tub Bath until see Lifting Instructions after Dis: No heavy lifting Exercise Instruction after Dis: Exercise per therapy, Progress as tolerated Driving Instructions after Dis: Do not drive Weight Bearing Status after Di: As tolerated Diet after Discharge Diet after Discharge: Diabetic No Calorie Level Diet Texture: Regular Swallowing Supervision: None needed Wound Incision Care Wound/Incision Care: Ice to area for comfort, Do not change dressing Wound Care Equipment: Wound vac Checks after Discharge Checks after discharge: Check blood press - daily Contacting the after DC Call your doctor for: If your condition worsens Treatment/Equipment after DC Adaptive Equipment Issued: None Warfarin Follow-Up Warfarin Follow UP: SEE DR DOUGLASS IN 2 WEEKS, SURGERY 1-2 WEEKS JAMAL MORRIS MD Sep 16, 2019 14:08
[2019-09-16 15:00] VITALS: BP 145/90
--- NOTE | 2019-09-16 16:09 | NUR ---
Pt discharged home with self care. Discharge instructions and prescriptions discussed. Pt verbalized understanding. Telfa island dressings removed. Steri strips intact. PICC dressing changed. Wound pics taken of knee and dressing changed. Pt packed belongings himself. Assisted to wheelchair and was taken to ed entrance and secured in car with family.
[2019-09-17] MEDS ORDERED: POTASSIUM CHLORIDE 20 MEQ TABLET.ER. PO SCH (08:00)
--- NOTE | 2019-09-17 16:06 | PATHOLOGY ---
[facility] Accession Number: [id number] . 01 Material submitted: . gallbladder - GALLBLADDER AND CONTENTS . 01 Clinical history: . Cholelithiasis . 02 Diagnosis: Gallbladder, laparoscopic cholecystectomy: - Cholelithiasis. - Chronic cholecystitis. . ([facility]; 09/17/2019) [facility] 09/17/2019 1039 Local . 02 Comment: There is no evidence of malignancy. . ([facility]:mm; 09/17/2019) . 02 Electronically signed: . Darnell Leon MD, Pathologist NPI- [id number] . 01 Gross description: . The specimen is received in formalin, labeled "Chang Reyes Jr., gallbladder and contents". Received is an intact gallbladder measuring 14.8 x 5.4 x 3.2 cm in greatest dimensions displaying a bile-stained serosal surface. Opening the specimen reveals a velvety, bile-stained mucosa with a gallbladder wall thickness of 0.1 cm. Calculi are present displaying a black and multifaceted appearance, and no masses or lesions are noted grossly. Highway Administrative Engineer sections, to include the proximal margin, are submitted in cassette A1. ([facility]; 09/14/2019) [facility]/QA 09/14/2019 1549 Local . 02 Pathologist provided ICD-10: K80.10 . 02 CPT . 448539 Specimen Comment: A courtesy copy of this report has been sent to [phone], [phone] Specimen Comment: [phone], Specimen Comment: Report sent to ,DR MORRIS / DR SHEA Performed at: [address], [place] [id number] MD Glenn Field MD Phone: [phone] Performed at: [address] [id number] MD Darnell Leon MD Phone: [phone]
== END 2019-09-16 15:50 | disposition home or self-care (01) | DRG 853 ==
LOC: ER 09:27 → OBSVTOIN 12:46 → CVICU 12:46 → 4 NORTH 09-12 15:12
PROVIDERS: ADMIT Family Medicine; ATTEND Family Medicine
PROC: BF121ZZ Fluoroscopy of Gallbladder using Low Osmolar Contrast (ICD-10-PCS; 2019-09-14)
PROC: 0FT44ZZ Resection of Gallbladder, Percutaneous Endoscopic Approach (ICD-10-PCS; principal; 2019-09-14 07:30)
DX: A41.9 Sepsis, unspecified organism (principal); J18.9 Pneumonia, unspecified organism; K85.10 Biliary acute pancreatitis without necrosis or infection; K80.10 Calculus of gallbladder with chronic cholecystitis without obstruction; T81.30XA Disruption of wound, unspecified, initial encounter; N17.9 Acute kidney failure, unspecified; E72.51 Non-ketotic hyperglycinemia; F41.9 Anxiety disorder, unspecified; M19.90 Unspecified osteoarthritis, unspecified site; F31.9 Bipolar disorder, unspecified; G89.29 Other chronic pain; E11.65 Type 2 diabetes mellitus with hyperglycemia; E66.01 Morbid (severe) obesity due to excess calories; E83.42 Hypomagnesemia; E86.0 Dehydration; E87.6 Hypokalemia; F17.210 Nicotine dependence, cigarettes, uncomplicated; G47.33 Obstructive sleep apnea (adult) (pediatric); I12.9 Hypertensive chronic kidney disease with stage 1 through stage 4 chronic kidney disease, or unspecified chronic kidney disease; K21.9 Gastro-esophageal reflux disease without esophagitis; N20.0 Calculus of kidney; I10 Essential (primary) hypertension; N28.1 Cyst of kidney, acquired; D50.9 Iron deficiency anemia, unspecified; E03.9 Hypothyroidism, unspecified; Z96.653 Presence of artificial knee joint, bilateral; Z20.828 Contact with and (suspected) exposure to other viral communicable diseases; Y83.8 Other surgical procedures as the cause of abnormal reaction of the patient, or of later complication, without mention of misadventure at the time of the procedure; Z68.35 Body mass index [BMI] 35.0-35.9, adult; Z79.891 Long term (current) use of opiate analgesic; Y92.89 Other specified places as the place of occurrence of the external cause; Z85.828 Personal history of other malignant neoplasm of skin; Z86.14 Personal history of Methicillin resistant Staphylococcus aureus infection; Z88.8 Allergy status to other drugs, medicaments and biological substances; Z82.49 Family history of ischemic heart disease and other diseases of the circulatory system
CPT/HCPCS: 36415; 71046; 74176; 74177; 74300; 76705; 80048; 80053; 80069; 80178; 81001; 82570; 82962; 83690; 83735; 84156; 84478; 85025; 87040; 94760; 96374; A7015; C9113; J0360; J0780; J1100; J1650; J1815; J2370; J2405; J2543; J2704; J2710; J3010; J3475; J3480; J3490; J7030; J7050; Q9966; Q9967; 92610-GN; 97530-GP; 99285-25; G0378; U0003-CS

== ENCOUNTER 2019-09-25 10:45 | Outpatient (CLI) | payer BC, MEDICARE ==
[~2019-09-25] VITALS: Ht 170.2 cm; Wt 90.7 kg
[~2019-09-25 10:45] MED LIST changes: +ALBU2.5V8 NEB; +CLIN300C8 PO; +DOCU-153 PO; +DOXY100C2 PO; +INSU100I11 SQ; +LACT1CAP19 PO; +PANT40TA77 PO; +POTA20TA4 PO
[2019-09-25 11:05] VITALS: BP 140/91
[2019-09-25] MEDS ORDERED: LIDOCAINE WITH 8.4% SOD BICARB 3 ML DISP.SYRIN. ONE (11:26)
[2019-09-25 11:40] VITALS: BP 124/77
[2019-09-25] MEDS ORDERED: LIDOCAINE WITH 8.4% SOD BICARB 3 ML DISP.SYRIN. IJ ONE (11:45)
[2019-09-25 11:47] VITALS: BP 124/77
--- NOTE | 2019-09-25 12:07 | NUR ---
Discharge Note: ANASTACIA RESENDEZ Discharge instructions and discharge home medications reviewed with Patient and mother,a copy given. All questions have been answered and understanding verbalized. The following instructions and handouts were given: incision care. Discontinued lines and drains: right chest power line removed in IR. Patient discharged to home with mother via personal vehicle.
--- NOTE | 2019-09-26 07:44 | RAD ---
09/26/2019 5:39 AM Removal of right internal jugular tunneled central line Indication: No longer requires central venous access Discussion: The risks and benefits of the procedure were discussed the patient. Informed consent was obtained. A timeout procedure was performed. The right chest was prepped and draped using maximum sterile barrier technique. All elements of maximal sterile barrier technique including the use of a cap, mask, sterile gown, sterile gloves, large sterile sheet, appropriate hand hygiene, and 2% chlorhexidine for cutaneous antisepsis (or acceptable alternative antiseptic per current guidelines) were followed for this procedure. Fluoroscopic evaluation demonstrates the right sided power line to be in normal position. Catheter was removed with traction the fluoroscopy. The catheter was removed intact. Manual pressure was held. A sterile dressing was applied. No immediate complications were identified. Fluoroscopy time: 0.5 minutes Dose area product 1 Gycm2 Impression: Removal of right internal jugular tunnel central venous catheter
== END 2019-09-25 12:10 | disposition home or self-care (01) ==
LOC: INTRAD 10:45
PROVIDERS: ATTEND Internal Medicine Infectious Disease
DX: Z45.2 Encounter for adjustment and management of vascular access device (principal)
CPT/HCPCS: 36589; 77001

== ENCOUNTER → 2019-10-11 | Outpatient (CLI) | payer BC, MEDICARE ==
[2019-09-25 11:47] VITALS: BP 124/77
--- NOTE | 2019-10-11 11:41 | PAIN ---
DATE OF SERVICE: 10/11/2019 PROGRESS NOTE FOR PAIN CLINIC DIAGNOSES: Lumbar degenerative disk disease, lumbar spinal stenosis and lumbar spondylosis. HISTORY OF PRESENT ILLNESS: The patient is a 49-year-old male who returns for followup status post medication management with oxycodone, Zanaflex and Lidoderm patches. The patient reports he is doing very well with this, has been on a very stable regimen. He has recently had his gallbladder removed and has had lost several pounds. The patient weighing in at 194 pounds today, most recent visit was at 253 pounds. The patient reports he feels somewhat better with his back also because of the lot of weight loss, but this has been fairly difficult getting his diet back up to a normal range, he is basically eating only very small solid foods and clear liquids at this time on the broth and jello. The patient reports otherwise doing fairly well and slowly is recovering and reports he does feel somewhat better. The patient reports the medication oxycodone is taking care of the rest of the pain for the most part and rates about 80% improvement overall without any significant side effects. The patient is maintaining hydration and has been staying fairly active, still weak from his surgery, but the patient reports he is recovering. The patient reports his pain at 8 on a scale of 10 at its worst in the past week, 7 on average, 6 at its least and is a 6 today in the low back itself and mid back, also in the bilateral knees. The patient reports some tingling pain that becomes constant with activity, but is manageable with the medications and again with some weight loss. He does feel somewhat better. PHYSICAL EXAMINATION: VITAL SIGNS: The patient's blood pressure 122/90, pulse 105, respirations 18, temperature 97.8 degrees Fahrenheit, height is 5 feet 7 inches, weight is 194 pounds. GENERAL: The patient is awake, alert, oriented, appropriate, very pleasant demeanor. HEENT: Shows normocephalic, atraumatic. Extraocular movements are intact and symmetrical. Oral cavity: Mucous membranes moist and pink. Dentition is intact. NECK: Shows anterior throat supple without palpable lymphadenopathy noted. Swallow reflex is symmetrical. Neck shows full rotational motion of cervical spine, both laterally as well as extension and flexion without significant difficulty. CHEST: Shows normal on inspection. Breath sounds clear to auscultation bilaterally. HEART: Shows S1, S2 clear. No murmurs auscultated. ABDOMEN: Soft, nontender, nondistended. No palpable organomegaly is noted. No rebound or guarding demonstrated. BACK: Shows spine grossly in the midline. Slight exaggeration of thoracic kyphosis and minor flattening of lumbar lordotic curvature. Lumbar and thoracic paraspinous muscle shows symmetrical on inspection, with palpation shows some moderate tenderness diffusely bilaterally going diffusely without significant radiation. The patient has good rotational motion of lumbar spine, both laterally as well as extension and flexion without significant difficulty, but with moderate tenderness in the low lumbar distribution, but without trigger points or radiation. PLAN: Options were discussed with the patient. The patient's old chart was reviewed as his current medication regimen updated, current review of systems updated today as well and we will proceed with refill of the patient's medication. He has had appropriate K-TRACS reporting as well as appropriate urinalysis, has been on very stable regimen at this point, we will refill for 2-month period of oxycodone as well as Zanaflex and Lidoderm patches. The patient was given instruction as well as side effects to be aware of each of the medications and will follow up in approximately 2 months or sooner if necessary. KOFI BYRD MD DR: AIDEN/ritesh JOB#: [id number] / [id number]
== END | disposition home or self-care (01) ==
LOC: PNCL 10:32
PROVIDERS: ATTEND Anesthesiology
DX: M48.061 Spinal stenosis, lumbar region without neurogenic claudication (principal); M51.36 Other intervertebral disc degeneration, lumbar region; M47.896 Other spondylosis, lumbar region; Z79.899 Other long term (current) drug therapy
CPT/HCPCS: G0463

== ENCOUNTER 2019-10-30 10:01 | Inpatient (IN) | payer BC, MEDICARE ==
[2019-10-30] VITALS (9 sets, daily range): BP systolic 93–119; BP diastolic 53–86
[~2019-10-30] VITALS: Ht 170.2 cm; Wt 94.8 kg
[2019-10-30] MEDS ORDERED: NOREPINEPHRINE VIAL 8 MG in IV DEXTROSE 5% 250 ML IV ONE (10:25)
[2019-10-30] MEDS ORDERED: SUCCINYLCHOLINE 200 MG/10 ML VIAL. IV ONE (10:30)
[2019-10-30] MEDS ORDERED: MIDAZOLAM HCL 50 MG in IV NORMAL SALINE 50ML 50 ML IV ONE (10:30)
[2019-10-30] MEDS ORDERED: ETOMIDATE 20 MG/10 ML VIAL. IV ONE (10:30)
[2019-10-30] MEDS ORDERED: MIDAZOLAM 100mg/100ml NS BAG 100 ML IV ONE (10:30)
[2019-10-30] MEDS ORDERED: ROCURONIUM 50 MG/5 ML VIAL. IV ONE ×2 (10:45)
[2019-10-30] MEDS ORDERED: IV NORMAL SALINE 1000ML BAG 1,000 ML IV ONE ×3 (10:45→12:15)
[2019-10-30 10:46] LABS: BASO % 0 % (0-3); EOS % 0 % (0-3); HEMATOCRIT 40.2 % (39.0-53.0); HEMOGLOBIN 12.5 g/dL (13.0-17.5); LYMPH # 1.2 x10^3/uL (1.0-4.8); LYMPH % 11 % (24-48); MEAN CORPUSCULAR HEMOGLOBIN 23 pg (25-35); MEAN CORPUSCULAR HGB CONC 31 g/dL (31-37); MEAN CORPUSCULAR VOLUME 75 fL (79-100); MONO # 0.6 x10^3/uL (0.0-1.1); MONO % 5 % (0-9); NEUT # 9.2 x10^3/uL (1.8-7.7); NEUT % 84 % (31-73); PLATELET COUNT 314 x10^3/uL (140-400); RED BLOOD COUNT 5.37 x10^6/uL (4.30-5.70); RED CELL DISTRIBUTION WIDTH 21.2 % (11.5-14.5)
[2019-10-30] MEDS ORDERED: PIPERACILLIN/TAZOBACTAM 3.375 GM in IV NORMAL SALINE 50ML 50 ML IV ONE (11:00)
[2019-10-30 11:10] LABS: ALBUMIN 2.2 g/dL (3.4-5.0); ALBUMIN/GLOBULIN RATIO 0.5 (1.0-1.7); CALCIUM 8.6 mg/dL (8.5-10.1); GFR 22.3; MAGNESIUM 2.4 mg/dL (1.8-2.4); TOTAL BILIRUBIN 0.8 mg/dL (0.2-1.0); TOTAL PROTEIN 6.3 g/dL (6.4-8.2)
[2019-10-30 11:14] LABS: POTASSIUM 2.3 mmol/L (3.5-5.1)
--- NOTE | 2019-10-30 11:15 | RAD ---
Chest radiograph 10/30/2019 10:35 AM INDICATION: Post intubation, respiratory distress COMPARISON: 09/10/2019 TECHNIQUE: Frontal and lateral views of the chest are provided. FINDINGS: The cardiomediastinal silhouette is within normal limits. Endotracheal tube is at the level of court with the distal tip projecting over the right mainstem bronchus. This may be retracted 3 cm. Nasogastric tube is in satisfactory position with the distal tip projecting over the stomach lumen. Left subclavian central venous catheter is identified at the distal tip projecting over the distal superior vena cava. There are no pleural effusions. There is no pulmonary vascular congestion. There is no pneumothorax. The lungs are clear. No significant osseous abnormality is identified. IMPRESSION: Endotracheal tube is identified with the distal tip terminating at the level of the court. This may be retracted 3 cm. No acute cardiopulmonary process. FOR INTERNAL CODING PURPOSES Critical result: Findings discussed with NEETU JEREZ at 10/30/2019 11:07 AM. RESULT CODE: (C) Electronically signed by: Angie Arvizu MD (10/30/2019 11:11 AM) [id number]
--- NOTE | 2019-10-30 11:27 | PHYS DOC ---
Past Medical History Past Medical History: Anxiety, Bipolar, Depression, Diabetes-Type II, Hypertension, Other Additional Past Medical Histor: chronic back pain Past Surgical History: Cholecystectomy, Knee Replacement, Other Additional Past Surgical Histo: cardiac cath, skin cancer removal, L KNEE SCOPE Smoking Status: Light Tobacco Smoker Alcohol Use: Rarely Drug Use: None General Adult EDM: Chief Complaint: ALTERED MENTAL STATUS HPI: HPI: Patient is a 49 year old male who was brought here by EMS from home with altered mental status, respiratory distress, elevated blood sugar. Per family report patient had not been doing well since he had his gallbladder taken out 6 weeks ago. He had trouble swallowing, loss of appetite, associate with nausea and vomiting. His blood sugar has been under control. Patient has history of hypertension and diabetes. Patient is on insulin. Patient declined to seek medical attention with his deteriorated condition. Over the weekend he became weaker, became hallucinated, his blood sugar has been elevated. His mother who worked as an ICU nurse in the past, instructed him to take his insulin. Last night he was confused, his blood sugar was elevated as well but he declined medical attention. This morning when his mom came by to check on him, patient was very confused, having trouble breathing, his blood sugar was elevated again. Therefore EMS was brought to take him here for evaluation. Review of Systems: Review of Systems: Not able to obtain due to condition Heart Score: Risk Factors: Risk Factors: DM, Current or recent (<one month) smoker, HTN, HLP, family history of CAD, obesity. Risk Scores: Score 0 - 3: 2.5% MACE over next 6 weeks - Discharge Home Score 4 - 6: 20.3% MACE over next 6 weeks - Admit for Clinical Observation Score 7 - 10: 72.7% MACE over next 6 weeks - Early Invasive Strategies Current Medications: Current Medications Medications (Trade) Dose Ordered Sig/Edilma Start Time Stop Time Status Last Admin Dose Admin Etomidate (Amidate) 20 mg 1X ONCE 10/30/19 10:30 10/30/19 10:32 DC 10/30/19 10:38 20 MG Midazolam HCl 100 ml @ 1 mls/hr 1X ONCE 10/30/19 10:30 11/03/19 14:29 10/30/19 10:40 5 MLS/HR Midazolam HCl 50 mg/Sodium Chloride 50 ml @ 0 mls/hr 1X ONCE 10/30/19 10:30 10/30/19 10:31 UNV Norepinephrine Bitartrate 8 mg/ Dextrose 258 ml @ 13.177 mls/ hr 1X ONCE 10/30/19 10:25 10/31/19 05:59 10/30/19 10:39 13.177 MLS/HR Piperacillin Sod/ Tazobactam Sod 3.375 gm/Sodium Chloride 50 ml @ 100 mls/hr 1X ONCE 10/30/19 11:00 10/30/19 11:29 10/30/19 10:42 100 MLS/HR Rocuronium Killdeer (Zemuron) 50 mg 1X ONCE 10/30/19 10:45 10/30/19 10:46 DC Sodium Chloride 1,000 ml @ 1,000 mls/hr 1X ONCE 10/30/19 10:45 10/30/19 11:44 10/30/19 10:43 1,000 MLS/HR Succinylcholine Chloride (Anectine) 100 mg 1X ONCE 10/30/19 10:30 10/30/19 10:32 DC 10/30/19 10:38 100 MG Allergies: Allergies: Allergies Coded Allergies Type Severity Reaction Last Updated Verified daptomycin Allergy Intermediate chills, nausea 08/09/19 Yes ketamine Allergy Intermediate 09/13/19 Yes I S O L A T I O N *CONTACT* Allergy Unknown Unknown 08/14/19 Yes Physical Exam: PE: Constitutional: In severe distress, toxic appearing, HENT: Normocephalic, atraumatic, bilateral external ears normal, oropharynx very dry , nose normal. [] Eyes: Pupils are sluggish , conjunctiva normal, no discharge. [] Neck: Normal range of motion, , supple, no stridor. [] Cardiovascular: Sinus tachycardia, regular rhythm, no murmur [] Lungs & Thorax: In severe respiratory distress, agonal breathing, decreased bilateral breath sounds to auscultation [] Abdomen: Bowel sounds normal, soft, no tenderness, no masses, no pulsatile masses. [] Skin: Warm, dry, no erythema, no rash. [] Back: Atraumatic Extremities: Atraumatic, no edema Neurologic: Unresponsive to pain or verbal stimuli, Psychologic: Not able to evaluate due to condition. Current Patient Data: Labs: Laboratory Tests Test 10/30/19 10:17 White Blood Count 11.0 x10^3/uL (4.0-11.0) Red Blood Count 5.37 x10^6/uL (4.30-5.70) Hemoglobin 12.5 g/dL (13.0-17.5) L Hematocrit 40.2 % (39.0-53.0) Mean Corpuscular Volume 75 fL (79-100) L Mean Corpuscular Hemoglobin 23 pg (25-35) L Mean Corpuscular Hemoglobin Concent 31 g/dL (31-37) Red Cell Distribution Width 21.2 % (11.5-14.5) H Platelet Count 314 x10^3/uL (140-400) Neutrophils (%) (Auto) 84 % (31-73) H Lymphocytes (%) (Auto) 11 % (24-48) L Monocytes (%) (Auto) 5 % (0-9) Eosinophils (%) (Auto) 0 % (0-3) Basophils (%) (Auto) 0 % (0-3) Neutrophils # (Auto) 9.2 x10^3/uL (1.8-7.7) H Lymphocytes # (Auto) 1.2 x10^3/uL (1.0-4.8) Monocytes # (Auto) 0.6 x10^3/uL (0.0-1.1) Eosinophils # (Auto) 0.0 x10^3/uL (0.0-0.7) Basophils # (Auto) 0.0 x10^3/uL (0.0-0.2) Platelet Estimate Pending Sodium Level 137 mmol/L (136-145) Potassium Level 2.3 mmol/L (3.5-5.1) *L Chloride Level 90 mmol/L (98-107) L Carbon Dioxide Level 13 mmol/L (21-32) L Anion Gap 34 (6-14) H Blood Urea Nitrogen 37 mg/dL (8-26) H Creatinine 3.0 mg/dL (0.7-1.3) H Estimated GFR (Cockcroft-Gault) 22.3 BUN/Creatinine Ratio 12 (6-20) Glucose Level 545 mg/dL (70-99) *H Lactic Acid Level 12.4 mmol/L (0.4-2.0) *H Calcium Level 8.6 mg/dL (8.5-10.1) Magnesium Level 2.4 mg/dL (1.8-2.4) Total Bilirubin 0.8 mg/dL (0.2-1.0) Aspartate Amino Transferase (AST) 47 U/L (15-37) H Alanine Aminotransferase (ALT) Pending Alkaline Phosphatase 311 U/L (46-116) H SW-Oir-F-Type Natriuretic Peptide 88814 pg/mL (0-124) H Total Protein 6.3 g/dL (6.4-8.2) L Albumin 2.2 g/dL (3.4-5.0) L Albumin/Globulin Ratio 0.5 (1.0-1.7) L Lipase 173 U/L (73-393) Laboratory Tests 10/30/19 10:17 Laboratory Tests 10/30/19 10:17 Vital Signs: Laboratory Tests Test 10/30/19 10:17 10/30/19 10:28 10/30/19 10:45 10/30/19 11:35 White Blood Count 11.0 x10^3/uL Red Blood Count 5.37 x10^6/uL Hemoglobin 12.5 g/dL Hematocrit 40.2 % Mean Corpuscular Volume 75 fL Mean Corpuscular Hemoglobin 23 pg Mean Corpuscular Hemoglobin Concent 31 g/dL Red Cell Distribution Width 21.2 % Platelet Count 314 x10^3/uL Neutrophils (%) (Auto) 84 % Lymphocytes (%) (Auto) 11 % Monocytes (%) (Auto) 5 % Eosinophils (%) (Auto) 0 % Basophils (%) (Auto) 0 % Neutrophils # (Auto) 9.2 x10^3/uL Lymphocytes # (Auto) 1.2 x10^3/uL Monocytes # (Auto) 0.6 x10^3/uL Eosinophils # (Auto) 0.0 x10^3/uL Basophils # (Auto) 0.0 x10^3/uL Platelet Estimate Adequate Anisocytosis Slight Microcytosis Slight Sodium Level 137 mmol/L Potassium Level 2.3 mmol/L Chloride Level 90 mmol/L Carbon Dioxide Level 13 mmol/L Anion Gap 34 Blood Urea Nitrogen 37 mg/dL Creatinine 3.0 mg/dL Estimated GFR (Cockcroft-Gault) 22.3 BUN/Creatinine Ratio 12 Glucose Level 545 mg/dL Lactic Acid Level 12.4 mmol/L Calcium Level 8.6 mg/dL Magnesium Level 2.4 mg/dL Total Bilirubin 0.8 mg/dL Aspartate Amino Transf (AST/SGOT) 47 U/L Alanine Aminotransferase (ALT/SGPT) 38 U/L Alkaline Phosphatase 311 U/L Troponin I Quantitative 0.130 ng/mL VW-Wqt-Q-Type Natriuretic Peptide 73823 pg/mL Total Protein 6.3 g/dL Albumin 2.2 g/dL Albumin/Globulin Ratio 0.5 Lipase 173 U/L Urine Collection Type U cath Urine Color Yolanda Urine Clarity Clear Urine pH Urine Specific Blunt Urine Protein mg/dL Urine Glucose (UA) mg/dL Urine Ketones (Stick) mg/dL Urine Blood Urine Nitrite Urine Bilirubin Urine Urobilinogen Dipstick mg/dL Urine Leukocyte Esterase Urine RBC 6-10 /HPF Urine WBC 11-20 /HPF Urine Squamous Epithelial Cells Occ /LPF Urine Amorphous Sediment Present /HPF Urine Bacteria 0 /HPF Urine Hyaline Casts Few /HPF Urine Mucus Slight /LPF Acetone Level Sm pos O2 Saturation 99 % Arterial Blood pH 7.36 Arterial Blood pCO2 at Patient Temp 24 mmHg Arterial Blood pO2 at Patient Temp 324 mmHg Arterial Blood HCO3 14 mmol/L Arterial Blood Base Excess -10 mmol/L FiO2 60% vent Test 10/30/19 11:50 10/30/19 13:46 10/30/19 14:08 10/30/19 14:50 Prothrombin Time 49.5 SEC Prothromb Time International Ratio 5.3 Activated Partial Thromboplast Time 42 SEC Glucose (Fingerstick) 429 mg/dL 376 mg/dL Lactic Acid Level 5.8 mmol/L Current Medications Medications (Trade) Dose Ordered Sig/Edilma Route PRN Reason Start Time Stop Time Status Last Admin Dose Admin Midazolam HCl 100 ml @ 1 mls/hr 1X ONCE IV 10/30/19 10:30 11/03/19 14:29 10/30/19 10:40 Midazolam HCl 50 mg/Sodium Chloride 50 ml @ 0 mls/hr 1X ONCE IV 10/30/19 10:30 10/30/19 10:31 UNV Etomidate (Amidate) 20 mg 1X ONCE IV 10/30/19 10:30 10/30/19 10:32 DC 10/30/19 10:38 Succinylcholine Chloride (Anectine) 100 mg 1X ONCE IV 10/30/19 10:30 10/30/19 10:32 DC 10/30/19 10:38 Norepinephrine Bitartrate 8 mg/ Dextrose 258 ml @ 13.177 mls/ hr 1X ONCE IV 10/30/19 10:25 10/31/19 05:59 10/30/19 10:39 Piperacillin Sod/ Tazobactam Sod 3.375 gm/Sodium Chloride 50 ml @ 100 mls/hr 1X ONCE IV 10/30/19 11:00 10/30/19 11:29 DC 10/30/19 10:42 Rocuronium Killdeer (Zemuron) 10 mg 1X ONCE IV 10/30/19 10:45 10/30/19 10:46 Cancel Sodium Chloride 1,000 ml @ 1,000 mls/hr 1X ONCE IV 10/30/19 10:45 10/30/19 11:44 DC 10/30/19 10:43 Sodium Chloride 1,000 ml @ 1,000 mls/hr 1X ONCE IV 10/30/19 10:45 10/30/19 11:44 DC 10/30/19 10:43 Rocuronium Killdeer (Zemuron) 50 mg 1X ONCE IV 10/30/19 10:45 10/30/19 10:46 DC 10/30/19 10:45 EKG: EKG: EKG was done at 1039, heart rate of 112 bpm, sinus tachycardia, no ST segment elevation [] Radiology/Procedures: Radiology/Procedures: [][facility] [address] [place] [address] IMAGING REPORT Signed PATIENT: [facility] [id number] : 1970 LOCATION: ER AGE: 49 SEX: M EXAM STATUS: REG ER ORD. PHYSICIAN: NEETU JEREZ DO REASON: post intubation, respiratory distress PROCEDURE: CHEST AP ONLY Chest radiograph 10/30/2019 10:35 AM INDICATION: Post intubation, respiratory distress COMPARISON: 09/10/2019 TECHNIQUE: Frontal and lateral views of the chest are provided. FINDINGS: The cardiomediastinal silhouette is within normal limits. Endotracheal tube is at the level of court with the distal tip projecting over the right mainstem bronchus. This may be retracted 3 cm. Nasogastric tube is in satisfactory position with the distal tip projecting over the stomach lumen. Left subclavian central venous catheter is identified at the distal tip projecting over the distal superior vena cava. There are no pleural effusions. There is no pulmonary vascular congestion. There is no pneumothorax. The lungs are clear. No significant osseous abnormality is identified. IMPRESSION: Endotracheal tube is identified with the distal tip terminating at the level of the court. This may be retracted 3 cm. No acute cardiopulmonary process. FOR INTERNAL CODING PURPOSES Critical result: Findings discussed with NEETU JEREZ at 10/30/2019 11:07 AM. RESULT CODE: (C) Electronically signed by: Madeline Shell MD (10/30/2019 11:11 AM) [id number] DICTATED and SIGNED BY: MADELINE SHELL MD DATE: 10/30/19 1111 Intubation: Indication: Respiratory failure Consent: Unable to give consent due to emergent nature. Medications Used: see nursing note Procedure: The patient was placed in the appropriate position. Intubation was performed , CORD VISUALIZATION BY USING GLIDE SCOPE, ET TUBE # 7.5 was used. ET tube was secured 24 at lip Initial confirmation of placement included bilateral breath sounds, tube fogging, adequate chest rise, adequate pulse oximetry reading. A chest x-ray to verify correct placement of the tube showed appropriate tube position, ET tube was pulled back 3 cm. The patient tolerated the procedure well. Complications: none. Central Venous Catheter placement: Indication: Vascular access Consent: The procedure was done emergently, no consent was obtained. Procedure: The patient was positioned appropriately and the skin over the left chest was prepped and draped in a sterile fashion. No local anesthesia was used. Ultrasound guidance was not utilized. A large bore needle was used to identify the vein. A guide wire was then inserted into the vein through the needle. A triple lumen catheter, 7 FR, was then inserted into the vessel over the guide wire using the Seldinger technique. All ports showed good, free f lowing blood return and were flushed with saline solution. The catheter was then securely fastened to the skin with sutures and covered with a sterile dressing. A post procedure X-ray was ordered. The patient tolerated the procedure well. Complications: none. [] Course & Med Decision Making: Course & Med Decision Making Pertinent Labs and Imaging studies reviewed. (See chart for details) COVID-19 CRITERIA: The patient was evaluated during the global COVID-19 pandemic, and that diagnosis was suspected/considered upon their initial presentation. Their evaluation, treatment and testing was consistent with current guidelines for patients who present with complaints or symptoms that may be related to COVID-19. Patient is a 49-year-old male with history of diabetic was brought here emergently by EMS with respiratory distress and altered mental status elevated blood sugar. Patient was unresponsive on arrival to ER, he was hypotensive, in respiratory distress. Peripheral IV was established, he was given IV fluid, he was intubated urgently by this physician. After intubation, a central venous catheter was placed on the left subclavian vein by this physician. Norepine phrine was initiated. Patient was in severe sepsis, he was given IV fluid accordingly, he was given first dose of Zosyn in the ER. Patient was found to have low potassium. Patient was given potassium supplement in the ER, insulin drip was initiated for DKA. Dr. Melton, hospitalist on-call was called to admit. Patient's mom and were updated about his critical condition. Patient has been in and out of the hospital recently, suspect Covic 19 infection as well. Critical care time was [60] minutes which includes time at bedside, spent in discussion of patient's care with specialist and/or family members, with interpretation of laboratory and/or radiological studies and is exclusive of procedures. Dragon Disclaimer: Dragon Disclaimer: This electronic medical record was generated, in whole or in part, using a voice recognition dictation system. Departure Departure Impression: Primary Impression: DKA (diabetic ketoacidoses) Additional Impressions: Respiratory failure Severe sepsis Hypokalemia Suspected 2018-nCoV infection Disposition: ADMITTED INPATIENT Admitting Physician: [facility] (DR. MELTON) Condition: CRITICAL Referrals: BAMBI SHEA APRN (PCP) Justicifation of Admission Dx: Justifications for Admission: Justification of Admission Dx: Yes Comminuty Aquired Pneumonia: Hemodynamic Instability Acute Renal Failure: RF Can't Be Managed Outpt Sepsis: Altered Mental Status DKA: DKA NEETU JEREZ DO Oct 30, 2019 11:27
[2019-10-30 11:40] LABS: BASE EXCESS ABG -10 mmol/L (-3-3); HCO3 ABG 14 mmol/L (21-28); PCO2 ABG 24 mmHg (35-46); PO2 ABG 324 mmHg (75-108); SAT O2 ABG 99 % (92-99)
[2019-10-30] MEDS: POTASSIUM CHLORIDE 20MEQ 100 ML IV SCH ×2 (11:48→12:56)
[2019-10-30 11:53] LABS: CLARITY,URINE CLEAR
[2019-10-30 11:55] LABS: FIO2 ABG 60% VENT
[2019-10-30] MEDS ORDERED: INSULIN,REGULAR 100 UNIT DRIP 100 ML IV ONE (12:00)
[2019-10-30 12:01] LABS: SQUAMOUS EPITHELIAL CELL,UR OCC /LPF
[2019-10-30 12:02] LABS: AMORPHOUS SEDIMENT,UR PRESENT /HPF; HYALINE CASTS, URINE FEW /HPF
[2019-10-30 12:03] LABS: BACTERIA,URINE 0 /HPF (0-FEW)
[2019-10-30 12:04] LABS: COLOR,URINE AMBER
[2019-10-30 12:19] LABS: PROTHROMBIN TIME PATIENT 49.5 SEC (11.7-14.0)
[2019-10-30] MEDS ORDERED: ONDANSETRON PF 4 MG/2 ML VIAL. IV PRN (12:30)
[2019-10-30 12:56] LABS: ANISOCYTOSIS SLIGHT; MICROCYTOSIS SLIGHT; PLT ESTIMATE ADEQUATE (ADEQUATE)
--- NOTE | 2019-10-30 13:43 | PDOC1 ---
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 with presence of antibiotic-impregnated cement spacer (15) Periprosthetic fracture around internal prosthetic knee joint (16) Pancreatitis (17) Hypokalemia (18) DKA (diabetic ketoacidoses) (19) Respiratory failure (20) Severe sepsis (21) Suspected 2019-nCoV infection Chief Complain: Mental status change not eating well hyperglycemia History of Present Illness: HPI: This is a middle-aged male well-known to my service He had a recent lap itzel His mother is an RN who used to work in our ICU Today the patient has become extremely critically ill He is not eating well His glucose is quite high His blood pressure is quite low We had to give him IV Levophed here in the ER to get his pressures up His potassium was low at 2.3 The ER physician also placed a left subclavian central line It appears the patient is quite septic and has DKA He is getting admitted to the ICU with DKA protocol and we will also be ruling out COVID-19 It should be noted that the patient has now been intubated and we have him on a Versed drip Past Medical/Surgical History: PMH/PSH: Past Medical History: Anxiety, Bipolar, Depression, Diabetes-Type II, Hypertension, Other Additional Past Medical Histor: chronic back pain Past Surgical History: Cholecystectomy, Knee Replacement, Other Additional Past Surgical Histo: cardiac cath, skin cancer removal, L KNEE SCOPE Smoking Status: Light Tobacco Smoker Alcohol Use: Rarely Allergies: Allergies: Coded Allergies: daptomycin (Verified Allergy, Intermediate, chills, nausea , 08/09/19) ketamine (Verified Allergy, Intermediate, 09/13/19) I S O L A T I O N *CONTACT* (Verified Allergy, Unknown, Unknown, 08/14/19) mrsa Family History: Family History: Hypertension Diabetes Social History: Social History: He does not drink smoke or take drugs I believe he lives at home with his mother Current Medications: Current Medications Current Medications Midazolam HCl 100 ml @ 1 mls/hr 1X ONCE IV Last administered on 10/30/19at 10:40; Start 10/30/19 at 10:30; Stop 11/03/19 at 14:29 Midazolam HCl 50 mg/Sodium Chloride 50 ml @ 0 mls/hr 1X ONCE IV ; Start 10/30/19 at 10:30; Stop 10/30/19 at 10:31; Status UNV Etomidate (Amidate) 20 mg 1X ONCE IV Last administered on 10/30/19at 10:38; Start 10/30/19 at 10:30; Stop 10/30/19 at 10:32; Status DC Succinylcholine Chloride (Anectine) 100 mg 1X ONCE IV Last administered on 10/30/19at 10:38; Start 10/30/19 at 10:30; Stop 10/30/19 at 10:32; Status DC Norepinephrine Bitartrate 8 mg/ Dextrose 258 ml @ 13.177 mls/ hr 1X ONCE IV Last administered on 10/30/19at 10:39; Start 10/30/19 at 10:25; Stop 10/31/19 at 05:59 Piperacillin Sod/ Tazobactam Sod 3.375 gm/Sodium Chloride 50 ml @ 100 mls/hr 1X ONCE IV Last administered on 10/30/19at 10:42; Start 10/30/19 at 11:00; Stop 10/30/19 at 11:29; Status DC Rocuronium [place] (Zemuron) 10 mg 1X ONCE IV ; Start 10/30/19 at 10:45; Stop 10/30/19 at 10:46; Status Cancel Sodium Chloride 1,000 ml @ 1,000 mls/hr 1X ONCE IV Last administered on 10/30/19at 10:43; Start 10/30/19 at 10:45; Stop 10/30/19 at 11:44; Status DC Sodium Chloride 1,000 ml @ 1,000 mls/hr 1X ONCE IV Last administered on 10/30/19at 10:43; Start 10/30/19 at 10:45; Stop 10/30/19 at 11:44; Status DC Rocuronium [place] (Zemuron) 50 mg 1X ONCE IV Last administered on 10/30/19at 10:45; Start 10/30/19 at 10:45; Stop 10/30/19 at 10:46; Status DC Potassium Chloride/Water 100 ml @ 100 mls/hr Q1H IV Last administered on 10/30/19at 12:56; Start 10/30/19 at 12:00; Stop 10/30/19 at 13:59 Insulin Human Regular 100 ml @ 0 mls/hr 1X ONCE IV Last administered on 10/30/19at 12:55; Start 10/30/19 at 12:00; Stop 10/30/19 at 12:01; Status DC Sodium Chloride 1,000 ml @ 1,000 mls/hr 1X ONCE IV Last administered on 10/30/19at 12:45; Start 10/30/19 at 12:15; Stop 10/30/19 at 13:14; Status DC Ondansetron HCl (Zofran) 4 mg PRN Q8HRS PRN IV NAUSEA/VOMITING; Start 10/30/19 at 12:30; Stop 10/31/19 at 12:29 Sodium Chloride 1,000 ml @ 125 mls/hr Q8H IV ; Start 10/30/19 at 12:25; Stop 10/31/19 at 12:24 Active Scripts Active Humalog (Insulin Lispro) 100 Unit/1 Ml Insuln.pen 0 Units SQ QIDACHS 14 Days Culturelle (Lactobacillus Rhamnosus Gg) 1 Each Cap.sprink 1 Cap PO BID 30 Days Pantoprazole Sodium (Pantoprazole Sodium) 40 Mg Tablet.dr 40 Mg PO DAILYAC 30 Days Dok (Docusate Sodium) 100 Mg Capsule 100 Mg PO PRN BID PRN 30 Days Klor-Con M20 (Potassium Chloride) 20 Meq Tab.er.prt 20 Meq PO DAILYWBKFT 14 Days Proair Hfa (Albuterol Sulfate) 8.5 Gm Hfa.aer.ad 2.5 Mg NEB PRN Q4HRS PRN 14 Days Reported Clindamycin Hcl 300 Mg Capsule 600 Mg PO BID Lidocaine PATCH (Lidocaine) 1 Each Adh..patch 1 Each TP DAILY REMOVE AFTER 12 HOURS Lisinopril 5 Mg Tablet 1 Tab PO DAILY PRN Clonazepam 1 Mg Tablet 1 Mg PO BID Alex Carbonate 300 Mg Tablet 1 Tab PO BID Zanaflex (Tizanidine Hcl) 4 Mg Capsule 1 Cap PO TID PRN Janumet 50-1,000 Mg Tablet (Sitagliptin Phos/Metformin Hcl) 1 Each Tablet 1 Tab PO BID Doxepin Hcl 50 Mg Capsule 300 Mg PO HS ROS: Review of Systems Unable to obtain the patient is intubated Physical Exam: Vital Signs: Vital Signs Date Time Temp Pulse Resp B/P (MAP) Pulse Ox O2 Delivery O2 Flow Rate FiO2 10/30/19 13:15 100 Ventilator 10/30/19 12:58 118 22 10/30/19 11:03 97.5 97.5 10/30/19 10:01 40/39 (39) 15.0 Physcial Exam: GEN: Intubated and sedated HEENT: Normal cephalic, atraumatic, external auditory canals are patent EYES: No scleral icterus MUSCULOSKELETAL: Well developed , well nourished, good range of motion ENDOCRINE: No thyromegaly was palpated LYMPHATICS: No cervical chain or axillary nodes were noted HEMATOPOIETIC: No bruising NECK: Supple, no JVD, no thyromegaly was noted LUNGS: He has some fine bibasilar crackles HEART: RRR, S!, S2 present. Tachycardic at times ABDOMEN: Soft, nontender decreased bowel sounds EXTREMITIES: Without clubbing, cyanosis, or edema. Pedal pulses intact. Neg ative Homans sign NEUROLOGIC: Sedated PSYCHIATRIC: Sedated SKIN: No ulcerations or rashes, good skin turgor, no jaundice VASCULAR: Good capillary refill, neurovascular bundle appears to be intact Labs: Labs: Laboratory Tests Test 10/30/19 10:17 10/30/19 10:28 10/30/19 10:45 10/30/19 11:35 White Blood Count 11.0 x10^3/uL (4.0-11.0) Red Blood Count 5.37 x10^6/uL (4.30-5.70) Hemoglobin 12.5 g/dL (13.0-17.5) Hematocrit 40.2 % (39.0-53.0) Mean Corpuscular Volume 75 fL (79-100) Mean Corpuscular Hemoglobin 23 pg (25-35) Mean Corpuscular Hemoglobin Concent 31 g/dL (31-37) Red Cell Distribution Width 21.2 % (11.5-14.5) Platelet Count 314 x10^3/uL (140-400) Neutrophils (%) (Auto) 84 % (31-73) Lymphocytes (%) (Auto) 11 % (24-48) Monocytes (%) (Auto) 5 % (0-9) Eosinophils (%) (Auto) 0 % (0-3) Basophils (%) (Auto) 0 % (0-3) Neutrophils # (Auto) 9.2 x10^3/uL (1.8-7.7) Lymphocytes # (Auto) 1.2 x10^3/uL (1.0-4.8) Monocytes # (Auto) 0.6 x10^3/uL (0.0-1.1) Eosinophils # (Auto) 0.0 x10^3/uL (0.0-0.7) Basophils # (Auto) 0.0 x10^3/uL (0.0-0.2) Platelet Estimate Adequate (ADEQUATE) Anisocytosis Slight Microcytosis Slight Sodium Level 137 mmol/L (136-145) Potassium Level 2.3 mmol/L (3.5-5.1) Chloride Level 90 mmol/L (98-107) Carbon Dioxide Level 13 mmol/L (21-32) Anion Gap 34 (6-14) Blood Urea Nitrogen 37 mg/dL (8-26) Creatinine 3.0 mg/dL (0.7-1.3) Estimated GFR (Cockcroft-Gault) 22.3 BUN/Creatinine Ratio 12 (6-20) Glucose Level 545 mg/dL (70-99) Lactic Acid Level 12.4 mmol/L (0.4-2.0) Calcium Level 8.6 mg/dL (8.5-10.1) Magnesium Level 2.4 mg/dL (1.8-2.4) Total Bilirubin 0.8 mg/dL (0.2-1.0) Aspartate Amino Transf (AST/SGOT) 47 U/L (15-37) Alanine Aminotransferase (ALT/SGPT) 38 U/L (16-63) Alkaline Phosphatase 311 U/L (46-116) Troponin I Quantitative 0.130 ng/mL (0.000-0.055) PL-Cjr-N-Type Natriuretic Peptide 28174 pg/mL (0-124) Total Protein 6.3 g/dL (6.4-8.2) Albumin 2.2 g/dL (3.4-5.0) Albumin/Globulin Ratio 0.5 (1.0-1.7) Lipase 173 U/L (73-393) Urine Collection Type U cath Urine Color Yolanda Urine Clarity Clear Urine pH (<5.0-8.0) Urine Specific [place] (1.000-1.030) Urine Protein mg/dL (NEG-TRACE) Urine Glucose (UA) mg/dL (NEG) Urine Ketones (Stick) mg/dL (NEG) Urine Blood (NEG) Urine Nitrite (NEG) Urine Bilirubin (NEG) Urine Urobilinogen Dipstick mg/dL (0.2 mg/dL) Urine Leukocyte Esterase (NEG) Urine RBC 6-10 /HPF (0-2) Urine WBC 11-20 /HPF (0-4) Urine Squamous Epithelial Cells Occ /LPF Urine Amorphous Sediment Present /HPF Urine Bacteria 0 /HPF (0-FEW) Urine Hyaline Casts Few /HPF Urine Mucus Slight /LPF Acetone Level Sm pos (NEG) O2 Saturation 99 % (92-99) Arterial Blood pH 7.36 (7.35-7.45) Arterial Blood pCO2 at Patient Temp 24 mmHg (35-46) Arterial Blood pO2 at Patient Temp 324 mmHg (75-108) Arterial Blood HCO3 14 mmol/L (21-28) Arterial Blood Base Excess -10 mmol/L (-3-3) FiO2 60% vent Test 10/30/19 11:50 Prothrombin Time 49.5 SEC (11.7-14.0) Prothromb Time International Ratio 5.3 (0.8-1.1) Activated Partial Thromboplast Time 42 SEC (24-38) Laboratory Tests Test 10/30/19 10:17 10/30/19 10:28 10/30/19 10:45 10/30/19 11:35 White Blood Count 11.0 x10^3/uL (4.0-11.0) Red Blood Count 5.37 x10^6/uL (4.30-5.70) Hemoglobin 12.5 g/dL (13.0-17.5) Hematocrit 40.2 % (39.0-53.0) Mean Corpuscular Volume 75 fL (79-100) Mean Corpuscular Hemoglobin 23 pg (25-35) Mean Corpuscular Hemoglobin Concent 31 g/dL (31-37) Red Cell Distribution Width 21.2 % (11.5-14.5) Platelet Count 314 x10^3/uL (140-400) Neutrophils (%) (Auto) 84 % (31-73) Lymphocytes (%) (Auto) 11 % (24-48) Monocytes (%) (Auto) 5 % (0-9) Eosinophils (%) (Auto) 0 % (0-3) Basophils (%) (Auto) 0 % (0-3) Neutrophils # (Auto) 9.2 x10^3/uL (1.8-7.7) Lymphocytes # (Auto) 1.2 x10^3/uL (1.0-4.8) Monocytes # (Auto) 0.6 x10^3/uL (0.0-1.1) Eosinophils # (Auto) 0.0 x10^3/uL (0.0-0.7) Basophils # (Auto) 0.0 x10^3/uL (0.0-0.2) Platelet Estimate Adequate (ADEQUATE) Anisocytosis Slight Microcytosis Slight Sodium Level 137 mmol/L (136-145) Potassium Level 2.3 mmol/L (3.5-5.1) Chloride Level 90 mmol/L (98-107) Carbon Dioxide Level 13 mmol/L (21-32) Anion Gap 34 (6-14) Blood Urea Nitrogen 37 mg/dL (8-26) Creatinine 3.0 mg/dL (0.7-1.3) Estimated GFR (Cockcroft-Gault) 22.3 BUN/Creatinine Ratio 12 (6-20) Glucose Level 545 mg/dL (70-99) Lactic Acid Level 12.4 mmol/L (0.4-2.0) Calcium Level 8.6 mg/dL (8.5-10.1) Magnesium Level 2.4 mg/dL (1.8-2.4) Total Bilirubin 0.8 mg/dL (0.2-1.0) Aspartate Amino Transf (AST/SGOT) 47 U/L (15-37) Alanine Aminotransferase (ALT/SGPT) 38 U/L (16-63) Alkaline Phosphatase 311 U/L (46-116) Troponin I Quantitative 0.130 ng/mL (0.000-0.055) SC-Icq-S-Type Natriuretic Peptide 02054 pg/mL (0-124) Total Protein 6.3 g/dL (6.4-8.2) Albumin 2.2 g/dL (3.4-5.0) Albumin/Globulin Ratio 0.5 (1.0-1.7) Lipase 173 U/L (73-393) Urine Collection Type U cath Urine Color Yolanda Urine Clarity Clear Urine pH (<5.0-8.0) Urine Specific [place] (1.000-1.030) Urine Protein mg/dL (NEG-TRACE) Urine Glucose (UA) mg/dL (NEG) Urine Ketones (Stick) mg/dL (NEG) Urine Blood (NEG) Urine Nitrite (NEG) Urine Bilirubin (NEG) Urine Urobilinogen Dipstick mg/dL (0.2 mg/dL) Urine Leukocyte Esterase (NEG) Urine RBC 6-10 /HPF (0-2) Urine WBC 11-20 /HPF (0-4) Urine Squamous Epithelial Cells Occ /LPF Urine Amorphous Sediment Present /HPF Urine Bacteria 0 /HPF (0-FEW) Urine Hyaline Casts Few /HPF Urine Mucus Slight /LPF Acetone Level Sm pos (NEG) O2 Saturation 99 % (92-99) Arterial Blood pH 7.36 (7.35-7.45) Arterial Blood pCO2 at Patient Temp 24 mmHg (35-46) Arterial Blood pO2 at Patient Temp 324 mmHg (75-108) Arterial Blood HCO3 14 mmol/L (21-28) Arterial Blood Base Excess -10 mmol/L (-3-3) FiO2 60% vent Test 10/30/19 11:50 Prothrombin Time 49.5 SEC (11.7-14.0) Prothromb Time International Ratio 5.3 (0.8-1.1) Activated Partial Thromboplast Time 42 SEC (24-38) Images: Images Chest x-ray does not show any acute disease endotracheal tube is identified with the distal tip terminating at the level of the court. This may be retracted 3 cm. Assessment/Plan Assessment/Plan Respiratory failure Sepsis DKA Critical hypotension Possible COVID-19 Plan ICU monitoring IV fluids IV insulin DKA protocol Consult pulmonary Consult infectious disease Replace his potassium Continue sedation with levo fed Trend labs Vent weaning Home meds if possible DVT prophylaxis Full code Prognosis extremely guarded at best Justicifation of Admission Dx: Justifications for Admission: Justification of Admission Dx: Yes Comminuty Aquired Pneumonia: Hemodynamic Instability Acute Renal Failure: RF Can't Be Managed Outpt Sepsis: Altered Mental Status DKA: DKA VISHAL KATZ III DO Oct 30, 2019 13:43
[2019-10-30] MEDS ORDERED: fentaNYL PF VIAL 100 MCG/2 ML VIAL IV PRN (15:00)
[2019-10-30] MEDS ORDERED: IV NORMAL SALINE 500ML BAG 500 ML IV PRN (15:00)
[2019-10-30] MEDS ORDERED: ATROPINE 0.5 MG/5 ML DISP.SYRINGE. IV PRN (15:00)
[2019-10-30] MEDS: DEXMEDETOMIDINE 400 MCG in IV NORMAL SALINE 100ML 96 ML IV PRN ×2 (15:13→20:04)
[2019-10-30] MEDS: IV NORMAL SALINE 1000ML BAG 1,000 ML IV SCH ×2 (15:20→20:25)
[2019-10-30] MEDS: MIDAZOLAM 100mg/100ml NS BAG 100 ML IV PRN (17:03)
[2019-10-30] MEDS ORDERED: PHYTONADIONE 10 MG/ML AMPUL. SQ ONE (18:45)
[2019-10-30] MEDS ORDERED: PANTOPRAZOLE IV PUSH 40 MG VIAL. IVP ONE (18:45)
[2019-10-30 18:56] LABS: CALCIUM 7.8 mg/dL (8.5-10.1); CREATININE 1.9 mg/dL (0.7-1.3); GFR 37.7; MAGNESIUM 2.1 mg/dL (1.8-2.4); PHOSPHORUS 1.4 mg/dL (2.6-4.7)
[2019-10-30 18:57] LABS: POTASSIUM 2.2 mmol/L (3.5-5.1)
--- NOTE | 2019-10-30 19:26 | NUR ---
Patient arrived on unit at 1830 accompanied by ED RN and RT. Patient intubated/sedated, withdrawing to pain. Stat labs and blood glucose ordered and drawn upon arrival, insulin gtt turned off temporarily for blood glucose of 74. D51/2 NS initiated and electrolytes ordered per DKA protocol. OG connected to suction, had brownish blood tinged gastric contents, notified Dr. Walter of blood in gastric contents, received the order to give Protonix IV push, Vitamin K SQ and recheck INR in the morning. MD aware of positive sepsis screen. Family was notified of admission by ED RN.
[2019-10-30] MEDS: IV DEXTROSE 5 %-0.45 % NACL 1,000 ML IV SCH ×2 (19:30→23:30)
--- NOTE | 2019-10-30 21:28 | PDOC ---
FOLLOW UP Brief Hematology-Oncology Note: Noted consult for elevated INR. Patient is a 49 year old male with type 2 diabetes who has been admitted with acute respiratory failure requiring intubation and mechanical ventilation, septic shock and diabetic ketoacidosis. He is not on anticoagulation and has no hx of liver disease or alcohol abuse. INR was noted to be elevated at presentation at 5.3. Hb, platelets are close to prior baseline. Noted nursing note documenting brownish gastric secretions concerning for GI bleed. Suspect DIC vs COVID19 related coagulopathy. Recommendations: - Monitor hemodynamic status closely - Hb Hct every 12 hrs - Agree with VItamin K - Check fibrinogen, d-dimer, INR with mixing studies and APTT with AM labs - Check peripheral smear to evaluate for microangiopathic hemolytic anemia - Maintain low threshold for evaluation of VTE if respiratory status does not improve - If clinically significant bleeding is noted, keep fibrinogen above 100 mg/dl with 5 units cryoprecipitate as needed - Full consult to follow Ant Wilkinson MD Hematology-Oncology Ph: [phone] - OLGA WILKINSON MD Oct 30, 2019 21:28
[2019-10-30] MEDS ORDERED: DAPTOmycin (GENERIC) IVPB 540 MG in IV NORMAL SALINE 50ML 50 ML IV ONE (22:00)
[2019-10-30] MEDS: POTASSIUM PHOS,M-BASIC-D-BASIC 13.6 MMOL in IV NORMAL SALINE 250ML 250 ML IV SCH ×2 (22:00→23:10)
[2019-10-30] MEDS: PIPERACILLIN/TAZOBACTAM 2.25 GM in IV NORMAL SALINE 50ML 50 ML IV SCH (23:55)
[2019-10-31] VITALS (24 sets, daily range): BP systolic 96–140; BP diastolic 71–100
[2019-10-31] MEDS: DEXMEDETOMIDINE 400 MCG in IV NORMAL SALINE 100ML 96 ML IV PRN ×5 (00:10→19:46)
[2019-10-31] MEDS: POTASSIUM CHLORIDE 20MEQ 100 ML IV SCH ×11 (00:12→23:45)
[2019-10-31] MEDS: IV DEXTROSE 5 %-0.45 % NACL 1,000 ML IV SCH ×6 (02:03→22:57)
[2019-10-31 02:30] LABS: CREATININE 1.6 mg/dL (0.7-1.3); MAGNESIUM 1.9 mg/dL (1.8-2.4); PHOSPHORUS 2.6 mg/dL (2.6-4.7); POTASSIUM 3.4 mmol/L (3.5-5.1)
[2019-10-31] MEDS ORDERED: DEXTROSE 50% 25 GM / 50ML DISP.SYRIN. IV PRN (02:30)
[2019-10-31 02:37] LABS: D-DIMER 0.93 ug/mlFEU (0.00-0.50)
--- NOTE | 2019-10-31 02:38 | EKG ---
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
[2019-10-31 02:39] LABS: PROTHROMBIN TIME PATIENT 41.4 SEC (11.7-14.0)
[2019-10-31] MEDS: MIDAZOLAM 100mg/100ml NS BAG 100 ML IV PRN ×2 (02:57→13:34)
[2019-10-31] MEDS: PIPERACILLIN/TAZOBACTAM 2.25 GM in IV NORMAL SALINE 50ML 50 ML IV SCH ×2 (06:07→12:28)
[2019-10-31 06:32] LABS: CREATININE 1.6 mg/dL (0.7-1.3); MAGNESIUM 1.9 mg/dL (1.8-2.4); PHOSPHORUS 3.5 mg/dL (2.6-4.7); POTASSIUM 3.9 mmol/L (3.5-5.1)
--- NOTE | 2019-10-31 06:44 | RAD ---
EXAM: PORTABLE CHEST 1V INDICATION: Reason: Recheck on ETT 116 / Spl. Instructions: / History: . TECHNIQUE: Single view COMPARISON: Chest x-ray 10/30/2019 at 10:43 AM FINDINGS: Patient remains intubated with the ET tube has been slightly retracted, now 5 [address]. Left subclavian approach central line remains present with the tip near the cavoatrial junction. Enteric tube passes below the diaphragms similar to prior. The heart size is normal. The great vessels appear unremarkable. There is no hilar or mediastinal mass. The lungs are clear. There is no pleural effusion or pneumothorax. There are no significant osseous abnormalities. IMPRESSION: Interval repositioning of the endotracheal tube now [address] No acute superimposed process. Electronically signed by: Davidson Sauer MD (10/31/2019 6:41 AM) [facility] [place]
[2019-10-31] MEDS: IV NORMAL SALINE 1000ML BAG 1,000 ML IV SCH (07:03)
[2019-10-31] MEDS ORDERED: PANTOPRAZOLE IV PUSH 40 MG VIAL. IVP SCH (07:30)
[2019-10-31 07:31] LABS: BASO % 0 % (0-3); EOS % 0 % (0-3); HEMATOCRIT 34.3 % (39.0-53.0); HEMOGLOBIN 11.2 g/dL (13.0-17.5); LYMPH # 1.5 x10^3/uL (1.0-4.8); LYMPH % 21 % (24-48); MEAN CORPUSCULAR HEMOGLOBIN 24 pg (25-35); MEAN CORPUSCULAR HGB CONC 33 g/dL (31-37); MEAN CORPUSCULAR VOLUME 73 fL (79-100); MONO # 0.5 x10^3/uL (0.0-1.1); MONO % 7 % (0-9); NEUT # 5.2 x10^3/uL (1.8-7.7); NEUT % 73 % (31-73); PLATELET COUNT 219 x10^3/uL (140-400); RED BLOOD COUNT 4.74 x10^6/uL (4.30-5.70); WHITE BLOOD COUNT 7.1 x10^3/uL (4.0-11.0)
[2019-10-31] MEDS: INSULIN REGULAR VIAL 100 UNIT in IV NORMAL SALINE 100ML 100 ML IV PRN (07:48)
--- NOTE | 2019-10-31 08:00 | NUR ---
Spoke in length with patient's regarding admission questions, apparently patient has had nausea/vomiting since his cholecystectomy. He has had very poor nutritional intake due to vomiting, which has caused dysphagia, therefore he has not taken PO medications. Apparently he has refused to come into the hospital for quite a while until family made him. According to her, he had lost approximately 70 pounds before his cholecystectomy and at a follow up visit on 10/11/19, he weighed 194 lbs and obviously continues to lose weight.
[2019-10-31 08:42] LABS: BASE EXCESS ABG -4 mmol/L (-3-3); HCO3 ABG 17 mmol/L (21-28); PCO2 ABG 22 mmHg (35-46); PO2 ABG 200 mmHg (75-108); SAT O2 ABG 99 % (92-99)
[2019-10-31 08:50] LABS: FIO2 ABG 40 VENT
[2019-10-31 09:09] LABS: CORRECTED PCO2 ABG 22 mmHg; CORRECTED PO2 ABG 204 mmHg
--- NOTE | 2019-10-31 09:47 | PDOC ---
Infectious Disease Note Vital Signs: Vital Signs Vital Signs Date Time Temp Pulse Resp B/P (MAP) Pulse Ox O2 Delivery O2 Flow Rate FiO2 10/31/19 09:00 110 22 112/83 (93) 100 Ventilator 10/31/19 08:00 100.1 100.1 10/31/19 06:08 15.0 Medications: Inpatient Meds: Current Medications Medications (Trade) Dose Ordered Sig/Edilma Start Time Stop Time Status Last Admin Dose Admin Atropine Sulfate (ATROPINE 0.5mg SYRINGE) 0.5 mg PRN Q5MIN PRN 10/30/19 15:00 Daptomycin 540 mg/ Sodium Chloride 50 ml @ 100 mls/hr ONCE ONCE 10/30/19 22:00 10/30/19 22:29 DC 10/30/19 22:09 100 MLS/HR Dexmedetomidine HCl 400 mcg/ Sodium Chloride 100 ml @ 0 mls/hr CONT PRN 10/30/19 15:00 10/31/19 04:47 20 MLS/HR Dextrose (Dextrose 50%-Water Syringe) 25 gm PRN Q10MIN PRN 10/31/19 02:30 10/31/19 02:39 25 GM Dextrose/Sodium Chloride 1,000 ml @ 250 mls/hr Q4H 10/30/19 19:30 10/31/19 07:23 250 MLS/HR Etomidate (Amidate) 20 mg 1X ONCE 10/30/19 10:30 10/30/19 10:32 DC 10/30/19 10:38 20 MG Fentanyl Citrate 30 ml @ 0 mls/hr CONT PRN 10/30/19 19:00 10/31/19 06:08 2.5 MLS/HR Fentanyl Citrate (Fentanyl 2ml Vial) 25 mcg PRN Q1HR PRN 10/30/19 15:00 UNV Insulin Human Regular 100 ml @ 0 mls/hr 1X ONCE 10/30/19 12:00 10/30/19 12:01 DC 10/30/19 12:55 9.7 MLS/HR Insulin Human Regular 100 unit/ Sodium Chloride 101 ml @ 0 mls/hr CONT PRN 10/31/19 03:15 10/31/19 07:48 3.131 MLS/HR Lorazepam (Ativan Inj) 0.5 mg PRN Q2HRS PRN 10/30/19 15:00 UNV Midazolam HCl 100 ml @ 1 mls/hr CONT PRN 10/30/19 17:00 10/31/19 02:57 1 MLS/HR Midazolam HCl 50 mg/Sodium Chloride 50 ml @ 0 mls/hr 1X ONCE 10/30/19 10:30 10/30/19 10:31 UNV Norepinephrine Bitartrate 8 mg/ Dextrose 258 ml @ 17.554 mls/ hr CONT PRN 10/30/19 22:15 Ondansetron HCl (Zofran) 4 mg PRN Q8HRS PRN 10/30/19 12:30 10/31/19 12:29 Pantoprazole Sodium (PROTONIX VIAL for IV PUSH) 40 mg 1X ONCE 10/30/19 18:45 10/30/19 18:47 DC 10/30/19 22:00 40 MG Phytonadione (Vitamin K Ampule) 5 mg 1X ONCE 10/30/19 18:45 10/30/19 18:47 DC 10/30/19 20:01 5 MG Piperacillin Sod/ Tazobactam Sod 2.25 gm/Sodium Chloride 50 ml @ 100 mls/hr Q6HRS 10/31/19 00:00 10/31/19 06:07 100 MLS/HR Piperacillin Sod/ Tazobactam Sod 3.375 gm/Sodium Chloride 50 ml @ 100 mls/hr 1X ONCE 10/30/19 11:00 10/30/19 11:29 DC 10/30/19 10:42 100 MLS/HR Potassium Chloride/Water 100 ml @ 100 mls/hr Q1H 10/31/19 07:30 10/31/19 09:29 DC 10/31/19 08:27 100 MLS/HR Potassium Phosphate 13.6 mmol/Sodium Chloride 254.5333 ml @ 127.... Q2H 10/30/19 20:00 10/30/19 23:59 DC 10/30/19 22:00 127.267 MLS/HR Rocuronium [place] (Zemuron) 50 mg 1X ONCE 10/30/19 10:45 10/30/19 10:46 DC 10/30/19 10:45 50 MG Sodium Chloride 500 ml @ 500 mls/hr 1X PRN PRN 10/30/19 15:00 Succinylcholine Chloride (Anectine) 100 mg 1X ONCE 10/30/19 10:30 10/30/19 10:32 DC 10/30/19 10:38 100 MG Labs: Lab Laboratory Tests Test 10/30/19 10:17 10/30/19 10:28 10/30/19 10:45 10/30/19 11:35 White Blood Count 11.0 x10^3/uL (4.0-11.0) Red Blood Count 5.37 x10^6/uL (4.30-5.70) Hemoglobin 12.5 g/dL (13.0-17.5) Hematocrit 40.2 % (39.0-53.0) Mean Corpuscular Volume 75 fL (79-100) Mean Corpuscular Hemoglobin 23 pg (25-35) Mean Corpuscular Hemoglobin Concent 31 g/dL (31-37) Red Cell Distribution Width 21.2 % (11.5-14.5) Platelet Count 314 x10^3/uL (140-400) Neutrophils (%) (Auto) 84 % (31-73) Lymphocytes (%) (Auto) 11 % (24-48) Monocytes (%) (Auto) 5 % (0-9) Eosinophils (%) (Auto) 0 % (0-3) Basophils (%) (Auto) 0 % (0-3) Neutrophils # (Auto) 9.2 x10^3/uL (1.8-7.7) Lymphocytes # (Auto) 1.2 x10^3/uL (1.0-4.8) Monocytes # (Auto) 0.6 x10^3/uL (0.0-1.1) Eosinophils # (Auto) 0.0 x10^3/uL (0.0-0.7) Basophils # (Auto) 0.0 x10^3/uL (0.0-0.2) Platelet Estimate Adequate (ADEQUATE) Anisocytosis Slight Microcytosis Slight Sodium Level 137 mmol/L (136-145) Potassium Level 2.3 mmol/L (3.5-5.1) Chloride Level 90 mmol/L (98-107) Carbon Dioxide Level 13 mmol/L (21-32) Anion Gap 34 (6-14) Blood Urea Nitrogen 37 mg/dL (8-26) Creatinine 3.0 mg/dL (0.7-1.3) Estimated GFR (Cockcroft-Gault) 22.3 BUN/Creatinine Ratio 12 (6-20) Glucose Level 545 mg/dL (70-99) Lactic Acid Level 12.4 mmol/L (0.4-2.0) Calcium Level 8.6 mg/dL (8.5-10.1) Magnesium Level 2.4 mg/dL (1.8-2.4) Total Bilirubin 0.8 mg/dL (0.2-1.0) Aspartate Amino Transf (AST/SGOT) 47 U/L (15-37) Alanine Aminotransferase (ALT/SGPT) 38 U/L (16-63) Alkaline Phosphatase 311 U/L (46-116) Troponin I Quantitative 0.130 ng/mL (0.000-0.055) [id number]-Type Natriuretic Peptide 25036 pg/mL (0-124) Total Protein 6.3 g/dL (6.4-8.2) Albumin 2.2 g/dL (3.4-5.0) Albumin/Globulin Ratio 0.5 (1.0-1.7) Lipase 173 U/L (73-393) Urine Collection Type U cath Urine Color Yolanda Urine Clarity Clear Urine pH (<5.0-8.0) Urine Specific [place] (1.000-1.030) Urine Protein mg/dL (NEG-TRACE) Urine Glucose (UA) mg/dL (NEG) Urine Ketones (Stick) mg/dL (NEG) Urine Blood (NEG) Urine Nitrite (NEG) Urine Bilirubin (NEG) Urine Urobilinogen Dipstick mg/dL (0.2 mg/dL) Urine Leukocyte Esterase (NEG) Urine RBC 6-10 /HPF (0-2) Urine WBC 11-20 /HPF (0-4) Urine Squamous Epithelial Cells Occ /LPF Urine Amorphous Sediment Present /HPF Urine Bacteria 0 /HPF (0-FEW) Urine Hyaline Casts Few /HPF Urine Mucus Slight /LPF Acetone Level Sm pos (NEG) O2 Saturation 99 % (92-99) Arterial Blood pH 7.36 (7.35-7.45) Arterial Blood pCO2 at Patient Temp 24 mmHg (35-46) Arterial Blood pO2 at Patient Temp 324 mmHg (75-108) Arterial Blood HCO3 14 mmol/L (21-28) Arterial Blood Base Excess -10 mmol/L (-3-3) FiO2 60% vent Test 10/30/19 11:50 10/30/19 13:46 10/30/19 14:08 10/30/19 14:50 Prothrombin Time 49.5 SEC (11.7-14.0) Prothromb Time International Ratio 5.3 (0.8-1.1) Activated Partial Thromboplast Time 42 SEC (24-38) Glucose (Fingerstick) 429 mg/dL (70-99) 376 mg/dL (70-99) Lactic Acid Level 5.8 mmol/L (0.4-2.0) Test 10/30/19 15:56 10/30/19 17:00 10/30/19 18:15 10/30/19 18:25 Glucose (Fingerstick) 303 mg/dL (70-99) 254 mg/dL (70-99) 74 mg/dL (70-99) Sodium Level 144 mmol/L (136-145) Potassium Level 2.2 mmol/L (3.5-5.1) Chloride Level 105 mmol/L (98-107) Carbon Dioxide Level 23 mmol/L (21-32) Anion Gap 16 (6-14) Blood Urea Nitrogen 34 mg/dL (8-26) Creatinine 1.9 mg/dL (0.7-1.3) Estimated GFR (Cockcroft-Gault) 37.7 Glucose Level 77 mg/dL (70-99) Calcium Level 7.8 mg/dL (8.5-10.1) Phosphorus Level 1.4 mg/dL (2.6-4.7) Magnesium Level 2.1 mg/dL (1.8-2.4) Test 10/30/19 20:12 10/30/19 21:19 10/30/19 22:24 10/30/19 23:32 Glucose (Fingerstick) 258 mg/dL (70-99) 158 mg/dL (70-99) 174 mg/dL (70-99) 177 mg/dL (70-99) Test 10/31/19 00:45 10/31/19 01:59 10/31/19 02:00 10/31/19 02:22 Glucose (Fingerstick) 141 mg/dL (70-99) 58 mg/dL (70-99) 47 mg/dL (70-99) Prothrombin Time 41.4 SEC (11.7-14.0) Prothromb Time International Ratio 4.2 (0.8-1.1) Activated Partial Thromboplast Time 56 SEC (24-38) Fibrinogen 431 mg/dL (200-440) D-Dimer (Enedelia) 0.93 ug/mlFEU (0.00-0.50) Sodium Level 146 mmol/L (136-145) Potassium Level 3.4 mmol/L (3.5-5.1) Chloride Level 110 mmol/L (98-107) Carbon Dioxide Level 20 mmol/L (21-32) Anion Gap 16 (6-14) Blood Urea Nitrogen 30 mg/dL (8-26) Creatinine 1.6 mg/dL (0.7-1.3) Estimated GFR (Cockcroft-Gault) 46.0 Glucose Level 35 mg/dL (70-99) Calcium Level 7.0 mg/dL (8.5-10.1) Phosphorus Level 2.6 mg/dL (2.6-4.7) Magnesium Level 1.9 mg/dL (1.8-2.4) Test 10/31/19 02:43 10/31/19 03:48 10/31/19 04:56 10/31/19 06:00 Glucose (Fingerstick) 115 mg/dL (70-99) 129 mg/dL (70-99) 157 mg/dL (70-99) White Blood Count 7.1 x10^3/uL (4.0-11.0) Red Blood Count 4.74 x10^6/uL (4.30-5.70) Hemoglobin 11.2 g/dL (13.0-17.5) Hematocrit 34.3 % (39.0-53.0) Mean Corpuscular Volume 73 fL (79-100) Mean Corpuscular Hemoglobin 24 pg (25-35) Mean Corpuscular Hemoglobin Concent 33 g/dL (31-37) Red Cell Distribution Width 22.0 % (11.5-14.5) Platelet Count 219 x10^3/uL (140-400) Neutrophils (%) (Auto) 73 % (31-73) Lymphocytes (%) (Auto) 21 % (24-48) Monocytes (%) (Auto) 7 % (0-9) Eosinophils (%) (Auto) 0 % (0-3) Basophils (%) (Auto) 0 % (0-3) Neutrophils # (Auto) 5.2 x10^3/uL (1.8-7.7) Lymphocytes # (Auto) 1.5 x10^3/uL (1.0-4.8) Monocytes # (Auto) 0.5 x10^3/uL (0.0-1.1) Eosinophils # (Auto) 0.0 x10^3/uL (0.0-0.7) Basophils # (Auto) 0.0 x10^3/uL (0.0-0.2) Sodium Level 141 mmol/L (136-145) Potassium Level 3.9 mmol/L (3.5-5.1) Chloride Level 104 mmol/L (98-107) Carbon Dioxide Level 18 mmol/L (21-32) Anion Gap 19 (6-14) Blood Urea Nitrogen 31 mg/dL (8-26) Creatinine 1.6 mg/dL (0.7-1.3) Estimated GFR (Cockcroft-Gault) 46.0 Glucose Level 307 mg/dL (70-99) Calcium Level 7.0 mg/dL (8.5-10.1) Phosphorus Level 3.5 mg/dL (2.6-4.7) Magnesium Level 1.9 mg/dL (1.8-2.4) Test 10/31/19 06:04 10/31/19 07:42 10/31/19 08:00 10/31/19 09:18 Glucose (Fingerstick) 291 mg/dL (70-99) 216 mg/dL (70-99) 298 mg/dL (70-99) O2 Saturation 99 % (92-99) Arterial Blood pH 7.52 (7.35-7.45) Arterial Blood pH (Temp corrected) 7.50 Arterial Blood pCO2 at Patient Temp 22 mmHg (35-46) Arterial Blood pCO2 (Temp correct) 22 mmHg Arterial Blood pO2 at Patient Temp 200 mmHg (75-108) Arterial Blood pO2 (Temp corrected) 204 mmHg Arterial Blood HCO3 17 mmol/L (21-28) Arterial Blood Base Excess -4 mmol/L (-3-3) FiO2 40 vent Objective: Assessment: Pt seen and examined ID consult dictated IMP Septic shock DKA Acute hypoxic resp failure Nausea and vomiting coagulopathy recent lap itzel GPC bacteremia 3 bottles H/O LTKA infection JAQUAN on CKD COVID suspect H/O intolerance to dapto with nausea ,has recieved it multiple times for prolonged periods Plan: Plan of Care cont zosyn s/p one dose of dapto f/u gpc in bc obtain ct abdomen and pelvis without critically ill d/w rn total cct 40 mins Thank you [id number] KYLAH DOUGLASS MD Oct 31, 2019 09:47
[2019-10-31 10:28] LABS: CREATININE 1.7 mg/dL (0.7-1.3); GFR 42.9; MAGNESIUM 1.8 mg/dL (1.8-2.4); PHOSPHORUS 1.8 mg/dL (2.6-4.7); POTASSIUM 3.3 mmol/L (3.5-5.1)
[2019-10-31] MEDS: POTASSIUM PHOS,M-BASIC-D-BASIC 13.6 MMOL in IV NORMAL SALINE 250ML 250 ML IV SCH ×2 (11:20→13:18)
--- NOTE | 2019-10-31 11:57 | PDOC ---
PULMONARY PROGRESS NOTES Vitals Vital Signs Date Time Temp Pulse Resp B/P (MAP) Pulse Ox O2 Delivery O2 Flow Rate FiO2 10/31/19 11:23 100 Ventilator 10/31/19 11:00 132 18 113/79 (90) 10/31/19 08:00 100.1 100.1 10/31/19 06:08 15.0 General: Alert, No acute distress Lungs: Clear Cardiovascular: S1 Abdomen: Soft, Other Extremities: No Edema Labs Laboratory Tests Test 10/30/19 10:17 10/30/19 10:28 10/30/19 10:45 10/30/19 11:35 White Blood Count 11.0 x10^3/uL (4.0-11.0) Red Blood Count 5.37 x10^6/uL (4.30-5.70) Hemoglobin 12.5 g/dL (13.0-17.5) Hematocrit 40.2 % (39.0-53.0) Mean Corpuscular Volume 75 fL (79-100) Mean Corpuscular Hemoglobin 23 pg (25-35) Mean Corpuscular Hemoglobin Concent 31 g/dL (31-37) Red Cell Distribution Width 21.2 % (11.5-14.5) Platelet Count 314 x10^3/uL (140-400) Neutrophils (%) (Auto) 84 % (31-73) Lymphocytes (%) (Auto) 11 % (24-48) Monocytes (%) (Auto) 5 % (0-9) Eosinophils (%) (Auto) 0 % (0-3) Basophils (%) (Auto) 0 % (0-3) Neutrophils # (Auto) 9.2 x10^3/uL (1.8-7.7) Lymphocytes # (Auto) 1.2 x10^3/uL (1.0-4.8) Monocytes # (Auto) 0.6 x10^3/uL (0.0-1.1) Eosinophils # (Auto) 0.0 x10^3/uL (0.0-0.7) Basophils # (Auto) 0.0 x10^3/uL (0.0-0.2) Platelet Estimate Adequate (ADEQUATE) Anisocytosis Slight Microcytosis Slight Sodium Level 137 mmol/L (136-145) Potassium Level 2.3 mmol/L (3.5-5.1) Chloride Level 90 mmol/L (98-107) Carbon Dioxide Level 13 mmol/L (21-32) Anion Gap 34 (6-14) Blood Urea Nitrogen 37 mg/dL (8-26) Creatinine 3.0 mg/dL (0.7-1.3) Estimated GFR (Cockcroft-Gault) 22.3 BUN/Creatinine Ratio 12 (6-20) Glucose Level 545 mg/dL (70-99) Lactic Acid Level 12.4 mmol/L (0.4-2.0) Calcium Level 8.6 mg/dL (8.5-10.1) Magnesium Level 2.4 mg/dL (1.8-2.4) Total Bilirubin 0.8 mg/dL (0.2-1.0) Aspartate Amino Transf (AST/SGOT) 47 U/L (15-37) Alanine Aminotransferase (ALT/SGPT) 38 U/L (16-63) Alkaline Phosphatase 311 U/L (46-116) Troponin I Quantitative 0.130 ng/mL (0.000-0.055) KN-Ruq-K-Type Natriuretic Peptide 28932 pg/mL (0-124) Total Protein 6.3 g/dL (6.4-8.2) Albumin 2.2 g/dL (3.4-5.0) Albumin/Globulin Ratio 0.5 (1.0-1.7) Lipase 173 U/L (73-393) Urine Collection Type U cath Urine Color Yolanda Urine Clarity Clear Urine pH (<5.0-8.0) Urine Specific [place] (1.000-1.030) Urine Protein mg/dL (NEG-TRACE) Urine Glucose (UA) mg/dL (NEG) Urine Ketones (Stick) mg/dL (NEG) Urine Blood (NEG) Urine Nitrite (NEG) Urine Bilirubin (NEG) Urine Urobilinogen Dipstick mg/dL (0.2 mg/dL) Urine Leukocyte Esterase (NEG) Urine RBC 6-10 /HPF (0-2) Urine WBC 11-20 /HPF (0-4) Urine Squamous Epithelial Cells Occ /LPF Urine Amorphous Sediment Present /HPF Urine Bacteria 0 /HPF (0-FEW) Urine Hyaline Casts Few /HPF Urine Mucus Slight /LPF Acetone Level Sm pos (NEG) O2 Saturation 99 % (92-99) Arterial Blood pH 7.36 (7.35-7.45) Arterial Blood pCO2 at Patient Temp 24 mmHg (35-46) Arterial Blood pO2 at Patient Temp 324 mmHg (75-108) Arterial Blood HCO3 14 mmol/L (21-28) Arterial Blood Base Excess -10 mmol/L (-3-3) FiO2 60% vent Test 10/30/19 11:50 10/30/19 13:46 10/30/19 14:08 10/30/19 14:50 Prothrombin Time 49.5 SEC (11.7-14.0) Prothromb Time International Ratio 5.3 (0.8-1.1) Activated Partial Thromboplast Time 42 SEC (24-38) Glucose (Fingerstick) 429 mg/dL (70-99) 376 mg/dL (70-99) Lactic Acid Level 5.8 mmol/L (0.4-2.0) Test 10/30/19 15:56 10/30/19 17:00 10/30/19 18:15 10/30/19 18:25 Glucose (Fingerstick) 303 mg/dL (70-99) 254 mg/dL (70-99) 74 mg/dL (70-99) Sodium Level 144 mmol/L (136-145) Potassium Level 2.2 mmol/L (3.5-5.1) Chloride Level 105 mmol/L (98-107) Carbon Dioxide Level 23 mmol/L (21-32) Anion Gap 16 (6-14) Blood Urea Nitrogen 34 mg/dL (8-26) Creatinine 1.9 mg/dL (0.7-1.3) Estimated GFR (Cockcroft-Gault) 37.7 Glucose Level 77 mg/dL (70-99) Calcium Level 7.8 mg/dL (8.5-10.1) Phosphorus Level 1.4 mg/dL (2.6-4.7) Magnesium Level 2.1 mg/dL (1.8-2.4) Test 10/30/19 20:12 10/30/19 21:19 10/30/19 22:24 10/30/19 23:32 Glucose (Fingerstick) 258 mg/dL (70-99) 158 mg/dL (70-99) 174 mg/dL (70-99) 177 mg/dL (70-99) Test 10/31/19 00:45 10/31/19 01:59 10/31/19 02:00 10/31/19 02:22 Glucose (Fingerstick) 141 mg/dL (70-99) 58 mg/dL (70-99) 47 mg/dL (70-99) Prothrombin Time 41.4 SEC (11.7-14.0) Prothromb Time International Ratio 4.2 (0.8-1.1) Activated Partial Thromboplast Time 56 SEC (24-38) Fibrinogen 431 mg/dL (200-440) D-Dimer (Enedelia) 0.93 ug/mlFEU (0.00-0.50) Sodium Level 146 mmol/L (136-145) Potassium Level 3.4 mmol/L (3.5-5.1) Chloride Level 110 mmol/L (98-107) Carbon Dioxide Level 20 mmol/L (21-32) Anion Gap 16 (6-14) Blood Urea Nitrogen 30 mg/dL (8-26) Creatinine 1.6 mg/dL (0.7-1.3) Estimated GFR (Cockcroft-Gault) 46.0 Glucose Level 35 mg/dL (70-99) Calcium Level 7.0 mg/dL (8.5-10.1) Phosphorus Level 2.6 mg/dL (2.6-4.7) Magnesium Level 1.9 mg/dL (1.8-2.4) Test 10/31/19 02:43 10/31/19 03:48 10/31/19 04:56 10/31/19 06:00 Glucose (Fingerstick) 115 mg/dL (70-99) 129 mg/dL (70-99) 157 mg/dL (70-99) White Blood Count 7.1 x10^3/uL (4.0-11.0) Red Blood Count 4.74 x10^6/uL (4.30-5.70) Hemoglobin 11.2 g/dL (13.0-17.5) Hematocrit 34.3 % (39.0-53.0) Mean Corpuscular Volume 73 fL (79-100) Mean Corpuscular Hemoglobin 24 pg (25-35) Mean Corpuscular Hemoglobin Concent 33 g/dL (31-37) Red Cell Distribution Width 22.0 % (11.5-14.5) Platelet Count 219 x10^3/uL (140-400) Neutrophils (%) (Auto) 73 % (31-73) Lymphocytes (%) (Auto) 21 % (24-48) Monocytes (%) (Auto) 7 % (0-9) Eosinophils (%) (Auto) 0 % (0-3) Basophils (%) (Auto) 0 % (0-3) Neutrophils # (Auto) 5.2 x10^3/uL (1.8-7.7) Lymphocytes # (Auto) 1.5 x10^3/uL (1.0-4.8) Monocytes # (Auto) 0.5 x10^3/uL (0.0-1.1) Eosinophils # (Auto) 0.0 x10^3/uL (0.0-0.7) Basophils # (Auto) 0.0 x10^3/uL (0.0-0.2) Sodium Level 141 mmol/L (136-145) Potassium Level 3.9 mmol/L (3.5-5.1) Chloride Level 104 mmol/L (98-107) Carbon Dioxide Level 18 mmol/L (21-32) Anion Gap 19 (6-14) Blood Urea Nitrogen 31 mg/dL (8-26) Creatinine 1.6 mg/dL (0.7-1.3) Estimated GFR (Cockcroft-Gault) 46.0 Glucose Level 307 mg/dL (70-99) Calcium Level 7.0 mg/dL (8.5-10.1) Phosphorus Level 3.5 mg/dL (2.6-4.7) Magnesium Level 1.9 mg/dL (1.8-2.4) Test 10/31/19 06:04 10/31/19 07:42 10/31/19 08:00 10/31/19 09:18 Glucose (Fingerstick) 291 mg/dL (70-99) 216 mg/dL (70-99) 298 mg/dL (70-99) O2 Saturation 99 % (92-99) Arterial Blood pH 7.52 (7.35-7.45) Arterial Blood pH (Temp corrected) 7.50 Arterial Blood pCO2 at Patient Temp 22 mmHg (35-46) Arterial Blood pCO2 (Temp correct) 22 mmHg Arterial Blood pO2 at Patient Temp 200 mmHg (75-108) Arterial Blood pO2 (Temp corrected) 204 mmHg Arterial Blood HCO3 17 mmol/L (21-28) Arterial Blood Base Excess -4 mmol/L (-3-3) FiO2 40 vent Test 10/31/19 10:05 10/31/19 10:07 Sodium Level 143 mmol/L (136-145) Potassium Level 3.3 mmol/L (3.5-5.1) Chloride Level 108 mmol/L (98-107) Carbon Dioxide Level 20 mmol/L (21-32) Anion Gap 15 (6-14) Blood Urea Nitrogen 28 mg/dL (8-26) Creatinine 1.7 mg/dL (0.7-1.3) Estimated GFR (Cockcroft-Gault) 42.9 Glucose Level 290 mg/dL (70-99) Calcium Level 7.0 mg/dL (8.5-10.1) Phosphorus Level 1.8 mg/dL (2.6-4.7) Magnesium Level 1.8 mg/dL (1.8-2.4) Glucose (Fingerstick) 255 mg/dL (70-99) Laboratory Tests Test 10/30/19 13:46 10/30/19 14:08 10/30/19 14:50 10/30/19 15:56 Glucose (Fingerstick) 429 mg/dL (70-99) 376 mg/dL (70-99) 303 mg/dL (70-99) Lactic Acid Level 5.8 mmol/L (0.4-2.0) Test 10/30/19 17:00 10/30/19 18:15 10/30/19 18:25 10/30/19 20:12 Glucose (Fingerstick) 254 mg/dL (70-99) 74 mg/dL (70-99) 258 mg/dL (70-99) Sodium Level 144 mmol/L (136-145) Potassium Level 2.2 mmol/L (3.5-5.1) Chloride Level 105 mmol/L (98-107) Carbon Dioxide Level 23 mmol/L (21-32) Anion Gap 16 (6-14) Blood Urea Nitrogen 34 mg/dL (8-26) Creatinine 1.9 mg/dL (0.7-1.3) Estimated GFR (Cockcroft-Gault) 37.7 Glucose Level 77 mg/dL (70-99) Calcium Level 7.8 mg/dL (8.5-10.1) Phosphorus Level 1.4 mg/dL (2.6-4.7) Magnesium Level 2.1 mg/dL (1.8-2.4) Test 10/30/19 21:19 10/30/19 22:24 10/30/19 23:32 10/31/19 00:45 Glucose (Fingerstick) 158 mg/dL (70-99) 174 mg/dL (70-99) 177 mg/dL (70-99) 141 mg/dL (70-99) Test 10/31/19 01:59 10/31/19 02:00 10/31/19 02:22 10/31/19 02:43 Glucose (Fingerstick) 58 mg/dL (70-99) 47 mg/dL (70-99) 115 mg/dL (70-99) Prothrombin Time 41.4 SEC (11.7-14.0) Prothromb Time International Ratio 4.2 (0.8-1.1) Activated Partial Thromboplast Time 56 SEC (24-38) Fibrinogen 431 mg/dL (200-440) D-Dimer (Enedelia) 0.93 ug/mlFEU (0.00-0.50) Sodium Level 146 mmol/L (136-145) Potassium Level 3.4 mmol/L (3.5-5.1) Chloride Level 110 mmol/L (98-107) Carbon Dioxide Level 20 mmol/L (21-32) Anion Gap 16 (6-14) Blood Urea Nitrogen 30 mg/dL (8-26) Creatinine 1.6 mg/dL (0.7-1.3) Estimated GFR (Cockcroft-Gault) 46.0 Glucose Level 35 mg/dL (70-99) Calcium Level 7.0 mg/dL (8.5-10.1) Phosphorus Level 2.6 mg/dL (2.6-4.7) Magnesium Level 1.9 mg/dL (1.8-2.4) Test 10/31/19 03:48 10/31/19 04:56 10/31/19 06:00 10/31/19 06:04 Glucose (Fingerstick) 129 mg/dL (70-99) 157 mg/dL (70-99) 291 mg/dL (70-99) White Blood Count 7.1 x10^3/uL (4.0-11.0) Red Blood Count 4.74 x10^6/uL (4.30-5.70) Hemoglobin 11.2 g/dL (13.0-17.5) Hematocrit 34.3 % (39.0-53.0) Mean Corpuscular Volume 73 fL (79-100) Mean Corpuscular Hemoglobin 24 pg (25-35) Mean Corpuscular Hemoglobin Concent 33 g/dL (31-37) Red Cell Distribution Width 22.0 % (11.5-14.5) Platelet Count 219 x10^3/uL (140-400) Neutrophils (%) (Auto) 73 % (31-73) Lymphocytes (%) (Auto) 21 % (24-48) Monocytes (%) (Auto) 7 % (0-9) Eosinophils (%) (Auto) 0 % (0-3) Basophils (%) (Auto) 0 % (0-3) Neutrophils # (Auto) 5.2 x10^3/uL (1.8-7.7) Lymphocytes # (Auto) 1.5 x10^3/uL (1.0-4.8) Monocytes # (Auto) 0.5 x10^3/uL (0.0-1.1) Eosinophils # (Auto) 0.0 x10^3/uL (0.0-0.7) Basophils # (Auto) 0.0 x10^3/uL (0.0-0.2) Sodium Level 141 mmol/L (136-145) Potassium Level 3.9 mmol/L (3.5-5.1) Chloride Level 104 mmol/L (98-107) Carbon Dioxide Level 18 mmol/L (21-32) Anion Gap 19 (6-14) Blood Urea Nitrogen 31 mg/dL (8-26) Creatinine 1.6 mg/dL (0.7-1.3) Estimated GFR (Cockcroft-Gault) 46.0 Glucose Level 307 mg/dL (70-99) Calcium Level 7.0 mg/dL (8.5-10.1) Phosphorus Level 3.5 mg/dL (2.6-4.7) Magnesium Level 1.9 mg/dL (1.8-2.4) Test 10/31/19 07:42 10/31/19 08:00 10/31/19 09:18 10/31/19 10:05 Glucose (Fingerstick) 216 mg/dL (70-99) 298 mg/dL (70-99) O2 Saturation 99 % (92-99) Arterial Blood pH 7.52 (7.35-7.45) Arterial Blood pH (Temp corrected) 7.50 Arterial Blood pCO2 at Patient Temp 22 mmHg (35-46) Arterial Blood pCO2 (Temp correct) 22 mmHg Arterial Blood pO2 at Patient Temp 200 mmHg (75-108) Arterial Blood pO2 (Temp corrected) 204 mmHg Arterial Blood HCO3 17 mmol/L (21-28) Arterial Blood Base Excess -4 mmol/L (-3-3) FiO2 40 vent Sodium Level 143 mmol/L (136-145) Potassium Level 3.3 mmol/L (3.5-5.1) Chloride Level 108 mmol/L (98-107) Carbon Dioxide Level 20 mmol/L (21-32) Anion Gap 15 (6-14) Blood Urea Nitrogen 28 mg/dL (8-26) Creatinine 1.7 mg/dL (0.7-1.3) Estimated GFR (Cockcroft-Gault) 42.9 Glucose Level 290 mg/dL (70-99) Calcium Level 7.0 mg/dL (8.5-10.1) Phosphorus Level 1.8 mg/dL (2.6-4.7) Magnesium Level 1.8 mg/dL (1.8-2.4) Test 10/31/19 10:07 Glucose (Fingerstick) 255 mg/dL (70-99) Medications Active Scripts Medications Dose Route/Sig Max Daily Dose Days Date Category Dose Instructions Humalog (Insulin Lispro) 100 Unit/1 Ml Insuln.pen 0 Units SQ QIDACHS 14 09/16/19 Rx Culturelle (Lactobacillus Rhamnosus Gg) 1 Each Cap.sprink 1 Cap PO BID 30 09/16/19 Rx Pantoprazole Sodium (Pantoprazole Sodium) 40 Mg Tablet.dr 40 Mg PO DAILYAC 30 09/16/19 Rx Dok (Docusate Sodium) 100 Mg Capsule 100 Mg PO PRN BID PRN 30 09/16/19 Rx Klor-Con M20 (Potassium Chloride) 20 Meq Tab.er.prt 20 Meq PO DAILYWBKFT 14 09/16/19 Rx Proair Hfa (Albuterol Sulfate) 8.5 Gm Hfa.aer.ad 2.5 Mg NEB PRN Q4HRS PRN 14 09/16/19 Rx Clindamycin Hcl 300 Mg Capsule 600 Mg PO BID 09/11/19 Reported Lidocaine PATCH (Lidocaine) 1 Each Adh..patch 1 Each TP DAILY 03/12/19 Reported REMOVE AFTER 12 HOURS Lisinopril 5 Mg Tablet 1 Tab PO DAILY PRN 03/12/19 Reported Clonazepam 1 Mg Tablet 1 Mg PO BID 03/12/19 Reported Buhl Carbonate 300 Mg Tablet 1 Tab PO BID 08/08/18 Reported Zanaflex (Tizanidine Hcl) 4 Mg Capsule 1 Cap PO TID PRN 08/25/15 Reported Janumet 50-1,000 Mg Tablet (Sitagliptin Phos/Metformin Hcl) 1 Each Tablet 1 Tab PO BID 01/17/15 Reported Doxepin Hcl 50 Mg Capsule 300 Mg PO HS 01/17/15 Reported Impression . Full note dictated Acute respiratory failure secondary to DKA, septic shock. Continue current support KUNAL MAYORGA MD Oct 31, 2019 11:57
[2019-10-31] MEDS ORDERED: PHYTONADIONE 10 MG/ML AMPUL. SQ ONE (12:00)
--- NOTE | 2019-10-31 12:07 | PDOC2 ---
GI CONSULT Reason For Consult: GI bleed, n/v HPI: HPI: 49 y/o male who we saw last month w/ n/v, hyperglycemia (h/o DM), and gallstone pancreatitis. S/p cholecystectomy on 09/14/19 - path w/ cholelithiasis and chronic cholecystitis. IOC normal. Review of notes and d/w nurse indicate ongoing n/v since surgery. To ER yesterday w/ AMS and resp distress. Noted w/ hyperglycemia, hypokalemia, lactic acidosis, and coagulopathy. Currently intubated and sedated in ICU, COVID-19 test pending. Nurse reports some dark blood-tinged contents from NG tube. Per last encounter, h/o reflux in his 20s when he chewed tobacco. Past EGD reportedly normal, no colonoscopy. No liver or PUD history. H/o chronic pain on Percocet and ibuprofen. Chronic microcytic anemia - iron studies c/w ACD. PMH: PMH: HTN, ANALIA, DM, hypothyroidism, bipolar, MRSA, pancreatitis tonsillectomy, bilateral knee replacement, left knee I&D, vasectomy, cardiac cath, cholecystectomy FH: Family History: No pertinent hx (per last encounter denied GI cancers, pancreatitis, GB disease) Social History: Smoke: <1 pack per day ALCOHOL: rare Drugs: None ROS: unable to obtain Vitals: Vitals: Vital Signs Date Time Temp Pulse Resp B/P (MAP) Pulse Ox O2 Delivery O2 Flow Rate FiO2 10/31/19 11:23 100 Ventilator 10/31/19 11:00 132 18 113/79 (90) 10/31/19 08:00 100.1 100.1 10/31/19 06:08 15.0 Labs: Labs: Laboratory Tests Test 10/30/19 13:46 10/30/19 14:08 10/30/19 14:50 10/30/19 15:56 Glucose (Fingerstick) 429 mg/dL (70-99) 376 mg/dL (70-99) 303 mg/dL (70-99) Lactic Acid Level 5.8 mmol/L (0.4-2.0) Test 10/30/19 17:00 10/30/19 18:15 10/30/19 18:25 10/30/19 20:12 Glucose (Fingerstick) 254 mg/dL (70-99) 74 mg/dL (70-99) 258 mg/dL (70-99) Sodium Level 144 mmol/L (136-145) Potassium Level 2.2 mmol/L (3.5-5.1) Chloride Level 105 mmol/L (98-107) Carbon Dioxide Level 23 mmol/L (21-32) Anion Gap 16 (6-14) Blood Urea Nitrogen 34 mg/dL (8-26) Creatinine 1.9 mg/dL (0.7-1.3) Estimated GFR (Cockcroft-Gault) 37.7 Glucose Level 77 mg/dL (70-99) Calcium Level 7.8 mg/dL (8.5-10.1) Phosphorus Level 1.4 mg/dL (2.6-4.7) Magnesium Level 2.1 mg/dL (1.8-2.4) Test 10/30/19 21:19 10/30/19 22:24 10/30/19 23:32 10/31/19 00:45 Glucose (Fingerstick) 158 mg/dL (70-99) 174 mg/dL (70-99) 177 mg/dL (70-99) 141 mg/dL (70-99) Test 10/31/19 01:59 10/31/19 02:00 10/31/19 02:22 10/31/19 02:43 Glucose (Fingerstick) 58 mg/dL (70-99) 47 mg/dL (70-99) 115 mg/dL (70-99) Prothrombin Time 41.4 SEC (11.7-14.0) Prothromb Time International Ratio 4.2 (0.8-1.1) Activated Partial Thromboplast Time 56 SEC (24-38) Fibrinogen 431 mg/dL (200-440) D-Dimer (Enedelia) 0.93 ug/mlFEU (0.00-0.50) Sodium Level 146 mmol/L (136-145) Potassium Level 3.4 mmol/L (3.5-5.1) Chloride Level 110 mmol/L (98-107) Carbon Dioxide Level 20 mmol/L (21-32) Anion Gap 16 (6-14) Blood Urea Nitrogen 30 mg/dL (8-26) Creatinine 1.6 mg/dL (0.7-1.3) Estimated GFR (Cockcroft-Gault) 46.0 Glucose Level 35 mg/dL (70-99) Calcium Level 7.0 mg/dL (8.5-10.1) Phosphorus Level 2.6 mg/dL (2.6-4.7) Magnesium Level 1.9 mg/dL (1.8-2.4) Test 10/31/19 03:48 10/31/19 04:56 10/31/19 06:00 10/31/19 06:04 Glucose (Fingerstick) 129 mg/dL (70-99) 157 mg/dL (70-99) 291 mg/dL (70-99) White Blood Count 7.1 x10^3/uL (4.0-11.0) Red Blood Count 4.74 x10^6/uL (4.30-5.70) Hemoglobin 11.2 g/dL (13.0-17.5) Hematocrit 34.3 % (39.0-53.0) Mean Corpuscular Volume 73 fL (79-100) Mean Corpuscular Hemoglobin 24 pg (25-35) Mean Corpuscular Hemoglobin Concent 33 g/dL (31-37) Red Cell Distribution Width 22.0 % (11.5-14.5) Platelet Count 219 x10^3/uL (140-400) Neutrophils (%) (Auto) 73 % (31-73) Lymphocytes (%) (Auto) 21 % (24-48) Monocytes (%) (Auto) 7 % (0-9) Eosinophils (%) (Auto) 0 % (0-3) Basophils (%) (Auto) 0 % (0-3) Neutrophils # (Auto) 5.2 x10^3/uL (1.8-7.7) Lymphocytes # (Auto) 1.5 x10^3/uL (1.0-4.8) Monocytes # (Auto) 0.5 x10^3/uL (0.0-1.1) Eosinophils # (Auto) 0.0 x10^3/uL (0.0-0.7) Basophils # (Auto) 0.0 x10^3/uL (0.0-0.2) Sodium Level 141 mmol/L (136-145) Potassium Level 3.9 mmol/L (3.5-5.1) Chloride Level 104 mmol/L (98-107) Carbon Dioxide Level 18 mmol/L (21-32) Anion Gap 19 (6-14) Blood Urea Nitrogen 31 mg/dL (8-26) Creatinine 1.6 mg/dL (0.7-1.3) Estimated GFR (Cockcroft-Gault) 46.0 Glucose Level 307 mg/dL (70-99) Calcium Level 7.0 mg/dL (8.5-10.1) Phosphorus Level 3.5 mg/dL (2.6-4.7) Magnesium Level 1.9 mg/dL (1.8-2.4) Test 10/31/19 07:42 10/31/19 08:00 10/31/19 09:18 10/31/19 10:05 Glucose (Fingerstick) 216 mg/dL (70-99) 298 mg/dL (70-99) O2 Saturation 99 % (92-99) Arterial Blood pH 7.52 (7.35-7.45) Arterial Blood pH (Temp corrected) 7.50 Arterial Blood pCO2 at Patient Temp 22 mmHg (35-46) Arterial Blood pCO2 (Temp correct) 22 mmHg Arterial Blood pO2 at Patient Temp 200 mmHg (75-108) Arterial Blood pO2 (Temp corrected) 204 mmHg Arterial Blood HCO3 17 mmol/L (21-28) Arterial Blood Base Excess -4 mmol/L (-3-3) FiO2 40 vent Sodium Level 143 mmol/L (136-145) Potassium Level 3.3 mmol/L (3.5-5.1) Chloride Level 108 mmol/L (98-107) Carbon Dioxide Level 20 mmol/L (21-32) Anion Gap 15 (6-14) Blood Urea Nitrogen 28 mg/dL (8-26) Creatinine 1.7 mg/dL (0.7-1.3) Estimated GFR (Cockcroft-Gault) 42.9 Glucose Level 290 mg/dL (70-99) Calcium Level 7.0 mg/dL (8.5-10.1) Phosphorus Level 1.8 mg/dL (2.6-4.7) Magnesium Level 1.8 mg/dL (1.8-2.4) Test 10/31/19 10:07 Glucose (Fingerstick) 255 mg/dL (70-99) URINE CULTURE Final Final No Growth on 10/31/19 at 0849 BLOOD CULTURE Final GRAM POSITIVE COCCI IN CHAINS, SUGGESTIVE OF STREP, Allergies: Coded Allergies: daptomycin (Verified Allergy, Intermediate, chills, nausea , 08/09/19) ketamine (Verified Allergy, Intermediate, 09/13/19) I S O L A T I O N *CONTACT* (Verified Allergy, Unknown, Unknown, 08/14/19) mrsa Medications: Current Medications Medications (Trade) Dose Ordered Sig/Edilma Route PRN Reason Start Time Stop Time Status Last Admin Dose Admin Potassium Chloride/Water 100 ml @ 100 mls/hr Q1H IV 10/30/19 12:00 10/30/19 13:59 DC 10/30/19 12:56 Insulin Human Regular 100 ml @ 0 mls/hr 1X ONCE IV 10/30/19 12:00 10/30/19 12:01 DC 10/30/19 12:55 Sodium Chloride 1,000 ml @ 1,000 mls/hr 1X ONCE IV 10/30/19 12:15 10/30/19 13:14 DC 10/30/19 12:45 Sodium Chloride 1,000 ml @ 125 mls/hr Q8H IV 10/30/19 12:25 10/31/19 07:13 DC 10/30/19 15:20 Dexmedetomidine HCl 400 mcg/ Sodium Chloride 100 ml @ 0 mls/hr CONT PRN IV SEE COMMENTS 10/30/19 15:00 10/31/19 10:23 Midazolam HCl 100 ml @ 1 mls/hr CONT PRN IV SEE COMMENTS 10/30/19 17:00 10/31/19 02:57 Pantoprazole Sodium (PROTONIX VIAL for IV PUSH) 40 mg DAILYAC IVP 10/31/19 07:30 10/31/19 07:23 Pantoprazole Sodium (PROTONIX VIAL for IV PUSH) 40 mg 1X ONCE IVP 10/30/19 18:45 10/30/19 18:47 DC 10/30/19 22:00 Phytonadione (Vitamin K Ampule) 5 mg 1X ONCE SQ 10/30/19 18:45 10/30/19 18:47 DC 10/30/19 20:01 Fentanyl Citrate 30 ml @ 0 mls/hr CONT PRN IV SEE PROTOCOL 10/30/19 19:00 10/31/19 06:08 Dextrose/Sodium Chloride 1,000 ml @ 250 mls/hr Q4H IV 10/30/19 19:30 10/31/19 07:23 Potassium Phosphate 13.6 mmol/Sodium Chloride 254.5333 ml @ 127.... Q2H IV 10/30/19 20:00 10/30/19 23:59 DC 10/30/19 22:00 Piperacillin Sod/ Tazobactam Sod 2.25 gm/Sodium Chloride 50 ml @ 100 mls/hr Q6HRS IV 10/31/19 00:00 10/31/19 06:07 Daptomycin 540 mg/ Sodium Chloride 50 ml @ 100 mls/hr ONCE ONCE IV 10/30/19 22:00 10/30/19 22:29 DC 10/30/19 22:09 Potassium Chloride/Water 100 ml @ 100 mls/hr Q1H IV 10/30/19 23:30 10/31/19 02:29 DC 10/31/19 01:30 Dextrose (Dextrose 50%-Water Syringe) 25 gm PRN Q10MIN PRN IV HYPOGLYCEMIA 10/31/19 02:30 10/31/19 02:39 Potassium Chloride/Water 100 ml @ 100 mls/hr Q1H IV 10/31/19 03:30 10/31/19 05:29 DC 10/31/19 04:39 Insulin Human Regular 100 unit/ Sodium Chloride 101 ml @ 0 mls/hr CONT PRN IV SEE I/O RECORD 10/31/19 03:15 10/31/19 07:48 Potassium Chloride/Water 100 ml @ 100 mls/hr Q1H IV 10/31/19 07:30 10/31/19 09:29 DC 10/31/19 08:27 Potassium Phosphate 13.6 mmol/Sodium Chloride 254.5333 ml @ 127.... Q2H IV 10/31/19 11:00 10/31/19 14:59 10/31/19 11:20 Imaging: Imaging: CXR 10/30 IMPRESSION: Interval repositioning of the endotracheal tube now [address]. No acute superimposed process. CXR 10/29 IMPRESSION: Endotracheal tube is identified with the distal tip terminating at the level of the court. This may be retracted 3 cm. No acute cardiopulmonary process. PE: GEN: intubated - nurses and RT transporting to HEENT: Atraumatic LUNGS: coarse HEART: tachycardic ABD: soft NEURO/PSYCH: sedated A/P: A/P: Chronic n/v, AMS Resp failure, GPC bacteremia, hyperglycemia/DM, lactic acidosis, coagulopathy, JAQUAN Recent cholecystectomy for gallstone pancreatitis Coffee-ground emesis (from NGT) - Hgb stable H/o GERD Chronic microcytic anemia/ACD CRC screen - none Chronic pain R/o COVID-19 -- Increase PPI to BID. Give more vit K. Await CT. ADAN PEREZ Oct 31, 2019 12:07
--- NOTE | 2019-10-31 12:45 | PDOC ---
[facility] PROGRESS NOTE Chief Complaint Chief Complaint Sepsis respiratory failure DKA History of Present Illness History of Present Illness 10/31/2019 Patient seen and examined in the [place] [id number] ICU He is in respiratory isolation on the ventilator Assist control with 35% FiO2 He is also on IV Levophed and remains critically ill His mother Elizabeth just called me I went through all of the details of his case so far with her (she used to work here in our ICU) Discussed with RN Chart reviewed Vitals/I&O Vitals/I&O: Vital Signs Date Time Temp Pulse Resp B/P (MAP) Pulse Ox O2 Delivery O2 Flow Rate FiO2 10/31/19 11:23 100 Ventilator 10/31/19 11:00 132 18 113/79 (90) 10/31/19 08:00 100.1 100.1 10/31/19 06:08 15.0 I & O 0 10/30/19 10/30/19 10/31/19 15:00 23:00 07:00 Intake Total 2250 ml 1100 ml 2948.5 ml Output Total 240 ml 290 ml Balance 2250 ml 860 ml 2658.5 ml Physical Exam General: Other (Sedated with Versed and Precedex on the ventilator) Heart: Other (Tachycardic) Lungs: Crackles Abdomen: No hepatosplenomegaly Extremities: No clubbing Skin: No rashes Labs Labs: Laboratory Tests Test 10/30/19 13:46 10/30/19 14:08 10/30/19 14:50 10/30/19 15:56 Glucose (Fingerstick) 429 mg/dL (70-99) 376 mg/dL (70-99) 303 mg/dL (70-99) Lactic Acid Level 5.8 mmol/L (0.4-2.0) Test 10/30/19 17:00 10/30/19 18:15 10/30/19 18:25 10/30/19 20:12 Glucose (Fingerstick) 254 mg/dL (70-99) 74 mg/dL (70-99) 258 mg/dL (70-99) Sodium Level 144 mmol/L (136-145) Potassium Level 2.2 mmol/L (3.5-5.1) Chloride Level 105 mmol/L (98-107) Carbon Dioxide Level 23 mmol/L (21-32) Anion Gap 16 (6-14) Blood Urea Nitrogen 34 mg/dL (8-26) Creatinine 1.9 mg/dL (0.7-1.3) Estimated GFR (Cockcroft-Gault) 37.7 Glucose Level 77 mg/dL (70-99) Calcium Level 7.8 mg/dL (8.5-10.1) Phosphorus Level 1.4 mg/dL (2.6-4.7) Magnesium Level 2.1 mg/dL (1.8-2.4) Test 10/30/19 21:19 10/30/19 22:24 10/30/19 23:32 10/31/19 00:45 Glucose (Fingerstick) 158 mg/dL (70-99) 174 mg/dL (70-99) 177 mg/dL (70-99) 141 mg/dL (70-99) Test 10/31/19 01:59 10/31/19 02:00 10/31/19 02:22 10/31/19 02:43 Glucose (Fingerstick) 58 mg/dL (70-99) 47 mg/dL (70-99) 115 mg/dL (70-99) Prothrombin Time 41.4 SEC (11.7-14.0) Prothromb Time International Ratio 4.2 (0.8-1.1) Activated Partial Thromboplast Time 56 SEC (24-38) Fibrinogen 431 mg/dL (200-440) D-Dimer (Enedelia) 0.93 ug/mlFEU (0.00-0.50) Sodium Level 146 mmol/L (136-145) Potassium Level 3.4 mmol/L (3.5-5.1) Chloride Level 110 mmol/L (98-107) Carbon Dioxide Level 20 mmol/L (21-32) Anion Gap 16 (6-14) Blood Urea Nitrogen 30 mg/dL (8-26) Creatinine 1.6 mg/dL (0.7-1.3) Estimated GFR (Cockcroft-Gault) 46.0 Glucose Level 35 mg/dL (70-99) Calcium Level 7.0 mg/dL (8.5-10.1) Phosphorus Level 2.6 mg/dL (2.6-4.7) Magnesium Level 1.9 mg/dL (1.8-2.4) Test 10/31/19 03:48 10/31/19 04:56 10/31/19 06:00 10/31/19 06:04 Glucose (Fingerstick) 129 mg/dL (70-99) 157 mg/dL (70-99) 291 mg/dL (70-99) White Blood Count 7.1 x10^3/uL (4.0-11.0) Red Blood Count 4.74 x10^6/uL (4.30-5.70) Hemoglobin 11.2 g/dL (13.0-17.5) Hematocrit 34.3 % (39.0-53.0) Mean Corpuscular Volume 73 fL (79-100) Mean Corpuscular Hemoglobin 24 pg (25-35) Mean Corpuscular Hemoglobin Concent 33 g/dL (31-37) Red Cell Distribution Width 22.0 % (11.5-14.5) Platelet Count 219 x10^3/uL (140-400) Neutrophils (%) (Auto) 73 % (31-73) Lymphocytes (%) (Auto) 21 % (24-48) Monocytes (%) (Auto) 7 % (0-9) Eosinophils (%) (Auto) 0 % (0-3) Basophils (%) (Auto) 0 % (0-3) Neutrophils # (Auto) 5.2 x10^3/uL (1.8-7.7) Lymphocytes # (Auto) 1.5 x10^3/uL (1.0-4.8) Monocytes # (Auto) 0.5 x10^3/uL (0.0-1.1) Eosinophils # (Auto) 0.0 x10^3/uL (0.0-0.7) Basophils # (Auto) 0.0 x10^3/uL (0.0-0.2) Sodium Level 141 mmol/L (136-145) Potassium Level 3.9 mmol/L (3.5-5.1) Chloride Level 104 mmol/L (98-107) Carbon Dioxide Level 18 mmol/L (21-32) Anion Gap 19 (6-14) Blood Urea Nitrogen 31 mg/dL (8-26) Creatinine 1.6 mg/dL (0.7-1.3) Estimated GFR (Cockcroft-Gault) 46.0 Glucose Level 307 mg/dL (70-99) Calcium Level 7.0 mg/dL (8.5-10.1) Phosphorus Level 3.5 mg/dL (2.6-4.7) Magnesium Level 1.9 mg/dL (1.8-2.4) Test 10/31/19 07:42 10/31/19 08:00 10/31/19 09:18 10/31/19 10:05 Glucose (Fingerstick) 216 mg/dL (70-99) 298 mg/dL (70-99) O2 Saturation 99 % (92-99) Arterial Blood pH 7.52 (7.35-7.45) Arterial Blood pH (Temp corrected) 7.50 Arterial Blood pCO2 at Patient Temp 22 mmHg (35-46) Arterial Blood pCO2 (Temp correct) 22 mmHg Arterial Blood pO2 at Patient Temp 200 mmHg (75-108) Arterial Blood pO2 (Temp corrected) 204 mmHg Arterial Blood HCO3 17 mmol/L (21-28) Arterial Blood Base Excess -4 mmol/L (-3-3) FiO2 40 vent Sodium Level 143 mmol/L (136-145) Potassium Level 3.3 mmol/L (3.5-5.1) Chloride Level 108 mmol/L (98-107) Carbon Dioxide Level 20 mmol/L (21-32) Anion Gap 15 (6-14) Blood Urea Nitrogen 28 mg/dL (8-26) Creatinine 1.7 mg/dL (0.7-1.3) Estimated GFR (Cockcroft-Gault) 42.9 Glucose Level 290 mg/dL (70-99) Calcium Level 7.0 mg/dL (8.5-10.1) Phosphorus Level 1.8 mg/dL (2.6-4.7) Magnesium Level 1.8 mg/dL (1.8-2.4) Test 10/31/19 10:07 10/31/19 12:09 Glucose (Fingerstick) 255 mg/dL (70-99) 123 mg/dL (70-99) Assessment and Plan Assessmemt and Plan Problems Medical Problems: (1) DKA (diabetic ketoacidoses) Status: Acute (2) Hypokalemia Status: Acute (3) Respiratory failure Status: Acute (4) Severe sepsis Status: Acute (5) Suspected 2019-nCoV infection Status: Acute Respiratory failure Sepsis DKA Critical hypotension Possible COVID-19 Plan ICU monitoring Trying to titrate off the Levophed IV fluids IV insulin DKA protocol Infectious disease and pulmonary are following I also consulted hematology and GI Replace his potassium Continue sedation with levo fed Trend labs Vent weaning Home meds if possible DVT prophylaxis Full code Prognosis extremely guarded at best Total time 34-minute Comment Review of Relevant I have reviewed the following items blaze (where applicable) has been applied. Medications: Current Medications Medications (Trade) Dose Ordered Sig/Edilma Route PRN Reason Start Time Stop Time Status Last Admin Dose Admin Dexmedetomidine HCl 400 mcg/ Sodium Chloride 100 ml @ 0 mls/hr CONT PRN IV SEE COMMENTS 10/30/19 15:00 10/31/19 10:23 Midazolam HCl 100 ml @ 1 mls/hr CONT PRN IV SEE COMMENTS 10/30/19 17:00 10/31/19 02:57 Pantoprazole Sodium (PROTONIX VIAL for IV PUSH) 40 mg DAILYAC IVP 10/31/19 07:30 10/31/19 11:55 DC 10/31/19 07:23 Pantoprazole Sodium (PROTONIX VIAL for IV PUSH) 40 mg 1X ONCE IVP 10/30/19 18:45 10/30/19 18:47 DC 10/30/19 22:00 Phytonadione (Vitamin K Ampule) 5 mg 1X ONCE SQ 10/30/19 18:45 10/30/19 18:47 DC 10/30/19 20:01 Fentanyl Citrate 30 ml @ 0 mls/hr CONT PRN IV SEE PROTOCOL 10/30/19 19:00 10/31/19 06:08 Dextrose/Sodium Chloride 1,000 ml @ 250 mls/hr Q4H IV 10/30/19 19:30 10/31/19 07:23 Potassium Phosphate 13.6 mmol/Sodium Chloride 254.5333 ml @ 127.... Q2H IV 10/30/19 20:00 10/30/19 23:59 DC 10/30/19 22:00 Piperacillin Sod/ Tazobactam Sod 2.25 gm/Sodium Chloride 50 ml @ 100 mls/hr Q6HRS IV 10/31/19 00:00 10/31/19 12:28 Daptomycin 540 mg/ Sodium Chloride 50 ml @ 100 mls/hr ONCE ONCE IV 10/30/19 22:00 10/30/19 22:29 DC 10/30/19 22:09 Potassium Chloride/Water 100 ml @ 100 mls/hr Q1H IV 10/30/19 23:30 10/31/19 02:29 DC 10/31/19 01:30 Dextrose (Dextrose 50%-Water Syringe) 25 gm PRN Q10MIN PRN IV HYPOGLYCEMIA 10/31/19 02:30 10/31/19 02:39 Potassium Chloride/Water 100 ml @ 100 mls/hr Q1H IV 10/31/19 03:30 10/31/19 05:29 DC 10/31/19 04:39 Insulin Human Regular 100 unit/ Sodium Chloride 101 ml @ 0 mls/hr CONT PRN IV SEE I/O RECORD 10/31/19 03:15 10/31/19 07:48 Potassium Chloride/Water 100 ml @ 100 mls/hr Q1H IV 10/31/19 07:30 10/31/19 09:29 DC 10/31/19 08:27 Potassium Phosphate 13.6 mmol/Sodium Chloride 254.5333 ml @ 127.... Q2H IV 10/31/19 11:00 10/31/19 14:59 10/31/19 11:20 Phytonadione (Vitamin K Ampule) 10 mg 1X ONCE SQ 10/31/19 12:00 10/31/19 12:01 DC 10/31/19 12:29 Justicifation of Admission Dx: Justifications for Admission: Justification of Admission Dx: Yes Comminuty Aquired Pneumonia: Hemodynamic Instability Acute Renal Failure: RF Can't Be Managed Outpt Sepsis: Altered Mental Status DKA: DKA VISHAL KATZ III DO Oct 31, 2019 12:45
--- NOTE | 2019-10-31 12:48 | RAD ---
EXAM: CT ABDOMEN/PELVIS WITHOUT CONTRAST. HISTORY: Nausea and vomiting, recent cholecystectomy. TECHNIQUE: Computed tomography of the abdomen and pelvis was performed without intravenous contrast. One or more of the following individualized dose reduction techniques were utilized for this examination: 1. Automated exposure control. 2. Adjustment of the mA and/or kV according to patient size. 3. Use of iterative reconstruction technique. COMPARISON: 09/13/2019. FINDINGS: Lung windows through the visualized portions of the bases reveal a small to moderate left pneumothorax anteriorly. There is mild dependent atelectasis. A small amount of pneumoperitoneum is likely included in this small hiatus hernia.. Bone windows reveal no suspicious lesions. A nasogastric tube has its tip in the distal stomach. A fluid collection along the anterior aspect of the pancreatic body measures 6.3 x 4.2 cm and is consistent with a pseudocyst. It exerts mass effect on the body of the stomach. Another fluid collection along the medial aspect of the hepatic caudate lobe measures 5.7 x 3.0 cm and may reflect another pseudocyst. The gallbladder is surgically absent. The liver, spleen, and adrenal glands are unremarkable. There are no pathologically enlarged lymph nodes. The bladder is decompressed by a Strange catheter. There is mild wall thickening along the ascending colon. There is no small bowel obstruction. A rim calcified nodule medially along left renal interpolar region measures 10 x 7 mm. The right kidney is unremarkable. IMPRESSION: 1. Small moderate left pneumothorax, incompletely evaluated. 2. Interval development of a 6.3 cm pseudocyst along the pancreatic body. 3. Another 6 cm fluid collection along the medial aspect of the hepatic caudate lobe also likely reflects a pseudocyst. 4. Right colonic wall thickening. Correlate for colitis. 5. A rim calcified 10 mm mass along the left kidney medially may be a complicated cyst but is indeterminate. Sonographic follow-up could be performed in 6 months. These findings were called to Rosa by Valente Cox on 10/31/2019 at 12:45 PM. Electronically signed by: Aracelis Cox MD (10/31/2019 12:45 PM) [id number]
--- NOTE | 2019-10-31 13:10 | CONS ---
DATE OF CONSULTATION: 10/31/2019 REFERRING PHYSICIAN: Dr. Melton. REASON FOR CONSULTATION: Antibiotic management. HISTORY OF PRESENT ILLNESS: A 49-year-old male brought to the ER from home with respiratory distress and altered mental status. The patient is intubated, currently in ICU. History obtained from chart and medical staff. The patient underwent a laparoscopic cholecystectomy on 09/14/2019 after which he has not been feeling well. He has trouble swallowing, off of appetite, associated nausea and vomiting. The patient declined to seek medical attention despite ongoing symptoms. Over the weekend, he became weaker, had blood sugars which were elevated with hallucination. Upon arrival to the ER, he had trouble breathing. He was intubated, started on pressors. He had lactic acidosis. Potassium was 2.3. He had JAQUAN, hyperglycemia, DKA, metabolic acidosis, and abnormal LFTs. Lipase of 173. He underwent chest x-ray, which showed endotracheal tube is in its place. He underwent a left central line placement. His INR was high. White count was 11; hemoglobin of 12.5, later 11.2; and platelets of 314. INR was 5.3, today morning is 4.2. Fibrinogen is 431. D-dimer is 0.93. UA showed 11-20 wbc's, leukocyte esterase not performed. Urine cultures and blood cultures were done, which are pending at this time. He has mall acetone. The patient was started on Zosyn. Last night, I started him on empiric daptomycin. The patient has history of intolerance to daptomycin, not true allergy with nausea and vomiting in the past, but he had been treated with a prolonged daptomycin as outpatient for knee infection last year. REVIEW OF SYSTEMS: Unable to obtain due to above condition. PAST MEDICAL HISTORY: Anxiety, bipolar, depression, diabetes, hypertension, chronic back pain, and cholecystectomy in 09/2019. Left total knee arthroplasty infection with last culture positive with Dr. Avila's office, which was sent to outside lab with coagulase negative Staph, which was oxacillin resistant, tetracycline resistant. The patient had been on clindamycin, doxycycline as outpatient, diabetes, renal insufficiency, skin cancer removal, cardiac catheterization, multiple surgeries left knee, and right total knee arthroplasty. SOCIAL HISTORY: Light tobacco smoker, ETOH rarely. , lives with . Mother is involved in his care, who is an ICU nurse. ALLERGIES: KETAMINE, DAPTOMYCIN, INTERMEDIATE OCCASIONAL CHILLS AND NAUSEA, BUT HAS TOLERATED THAT WELL IN THE PAST. FAMILY HISTORY: As per HPI. CURRENT MEDICATIONS: Pantoprazole, insulin, piperacillin, norepinephrine, dextrose, fentanyl, midazolam, atropine, ondansetron, midazolam, and one-time dose of daptomycin. PHYSICAL EXAMINATION: VITAL SIGNS: Temperature 100.1, pulse 110, respiratory rate 22, blood pressure 112/82, and oxygen saturation 100% on FiO2 ventilated. GENERAL: Intubated, sedated. HEENT: Normocephalic, atraumatic, anicteric. NECK: Supple, no JVD, no lymphadenopathy, no thyromegaly. LUNGS: Decreased breath sounds at the bases, otherwise, clear. HEART: S1, S2, tachycardia. No murmurs. ABDOMEN: Soft, nontender, bowel sounds present. EXTREMITIES: No cyanosis, no clubbing, no edema. Negative Nestor's sign. MUSCULOSKELETAL: Previous left knee surgery. Incision scar intact. No effusion. No surrounding erythema, no fluctuance. Nestor's negative. DERMATOLOGIC: Warm, dry. No generalized rash. NEUROLOGIC: Sedated. PSYCHIATRIC: Sedated. LINES: Left central line looks clean. PIV looks clean. LABORATORY DATA: WBC 7.1, hemoglobin 11.2, hematocrit 34.3, platelets 219, and lymphocytes 21. Sodium 141, potassium 3.9, chloride 104, bicarbonate 18, BUN 31, creatinine 1.6, glucose 307, magnesium 1.9, calcium 7.0. Acetone small. UA: 11-20 wbc's, leukocyte esterase is not done. INR 4.2, was 5.3, PTT 56. Fibrinogen 431. D-dimer 0.93. COVID-19 pending. MICROBIOLOGY: Urine culture and blood culture pending. IMAGING: Chest x-ray, negative. IMPRESSION: 1. Severe sepsis. Source GI vs other 2. Altered mental status POA 3. Acute hypoxic respiratory failure, status post intubation in ED. 4. Suspect COVID. 5. Lactic acidosis. 6. Acute kidney injury with underlying CKD. 7. Lymphopenia. 8. Diabetic ketoacidosis. 9. Coagulopathy. 10. Encephalopathy. 11. Nausea and vomiting, chronically since last surgery with gallbladder. 12. Recent Pancreatitis, status post laparoscopic cholecystectomy on 09/14/2019. 13. 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 Currently well healed. 14. Diabetes. 15. Hypertension. 16. Bipolar disorder. 17. Possible gastrointestinal bleed. 18. Intolerance to Daptomycin with nausea, tolerated it twice for weeks in the past Last year. RECOMMENDATIONS: 1. Continue Zosyn. We will need renal dosing. 2. Status post one dose of daptomycin yesterday as not much choices due to JAQUAN.. The patient has tolerated it well in the past, had intolerance with nausea and nonspecific chills. 3. Follow up COVID. 4. Maintain isolation, pending COVID results. 5. Follow up cultures and labs. 6. Obtain CT abdomen without. May need CT Chest. 7. Continue supportive care. 8. Condition critical. Discussed with nursing staff. Thank you, Dr. Melton, for consulting Infectious Disease to participate in this patient's care. If you have any questions, do not hesitate to contact me. KYLAH DOUGLASS MD DR: SREEDHAR/ritesh JOB#: [id number] / [id number] LIAM
--- NOTE | 2019-10-31 13:28 | NUR ---
Summary of shift so far: Patient's , Anusha, was updated on patient's condition via telephone contact. Patient went to CT, critical results called to Dr. Foy regarding pneumothorax, no new orders given. Also notified Dr. Chris Blake ([place]) about fever of 102.[address] results, order received to start Zyvox q [address] Marrero and Dr. Johnston of consult. Currently continuing DKA protocol.
--- NOTE | 2019-10-31 13:55 | CONS ---
DATE OF CONSULTATION: 10/31/2019 ATTENDING PHYSICIAN: Alvaro Melton DO REASON FOR CONSULTATION: The patient seen in pulmonary consultation at the request of Dr. Melton for vent management and acute respiratory failure, septic shock. HISTORY OF PRESENT ILLNESS: The patient is a 49-year-old that was brought to the Emergency Room with decreased mental status change, respiratory distress, elevated blood sugars. The patient has comorbidities including anxiety, bipolar disorder, depression, diabetes, hypertension. He last was hospitalized back in early part of September. At that time, he underwent cholecystectomy. The patient was treated for pancreatitis at this time. He was seen in consultation for abnormal CT chest revealing some inflammatory changes in the left lower lobe along with some atelectasis. The patient presents now with altered mental status. Labs were reviewed. Arterial blood gas revealed a pH of 7.36, PaCO2 of 24, pO2 of 324. This was after being intubated. White count was within normal range. His INR was elevated. D-dimer was elevated 0.93. Acetone level was positive. UA was noted. The patient was initially treated for DKA along with possible sepsis. He has been seen in consult by Infectious Disease Service and is currently being treated with Zosyn. He was given 1 dose of daptomycin. His blood cultures so far has revealed gram-positive cocci. He is to undergo CT abdomen and pelvis. PAST MEDICAL HISTORY: As indicated above in history of bipolar disorder, depression, type 2 diabetes, hypertension, anxiety, chronic back pain. PAST SURGICAL HISTORY: During his last hospitalization, he had a cholecystectomy. Otherwise, he has had previous cardiac catheterization and some skin cancers resected. SOCIAL HISTORY: He continues to smoke. ALLERGIES: DAPTOMYCIN AND KETAMINE. CURRENT MEDICATIONS: List was reviewed. REVIEW OF SYSTEMS: Unobtainable secondary to the patient's condition. FAMILY HISTORY: Noncontributory in this matter. PHYSICAL EXAMINATION: VITAL SIGNS: Stable. O2 saturation was greater than 92%. T-max today was 100.1. LUNGS: With scattered rhonchi. CARDIOVASCULAR: Regular rate and rhythm with S1, S2, no S3. ABDOMEN: Soft, nontender, nondistended. EXTREMITIES: No clubbing, cyanosis or edema. NEUROLOGIC: The patient was sedated. LABORATORY DATA: Reviewed as indicated above. Chest x-ray was likewise reviewed. There is no infiltrates, no consolidation, no effusion. IMPRESSION: 1. Acute hypoxemic respiratory failure secondary to acute metabolic acidosis. 2. Diabetic ketoacidosis. 3. Septic shock. 4. Bacteremia, gram-positive cocci, 1/3 bottles. 5. Recent laparoscopic cholecystectomy. 6. Acute on chronic kidney injury. 7. COVID-19, suspect. 8. Tobacco dependent. 9. Chronic obstructive pulmonary disease, unknown FEV1. PLAN: 1. The patient presents with complex medical decision making. He is currently in the intensive care unit receiving support with IV antibiotics, IV Levophed, IV fluids and mechanical support. We will continue current minute ventilation. 2. The patient will undergo CT abdomen and pelvis. 3. Follow up on blood cultures. 4. DVT and GI prophylaxis. Total cumulative critical care time of 50 minutes reviewing data, labs, chest x-ray and formulating the plan. KUNAL MAYORGA MD DR: JESUS/ritesh JOB#: [id number] / [id number]
[2019-10-31] MEDS: NOREPINEPHRINE VIAL 8 MG in IV DEXTROSE 5% 250 ML IV PRN (14:23)
--- NOTE | 2019-10-31 15:42 | NUR ---
SS following for discharge planning. SS reviewed pt chart and discussed with pt RN. pt is from home with family and is currently on the vent. Pt on IV Zosyn and IV Zyvox. COVID19 pending. SS will continue to follow for discharge planning.
[2019-10-31 15:58] LABS: CALCIUM 6.5 mg/dL (8.5-10.1); CREATININE 1.4 mg/dL (0.7-1.3); GFR 53.6; MAGNESIUM 1.6 mg/dL (1.8-2.4); PHOSPHORUS 3.8 mg/dL (2.6-4.7); POTASSIUM 3.5 mmol/L (3.5-5.1)
[2019-10-31] MEDS: ACETAMINOPHEN 650 MG SUPP.RECT. PR PRN (16:04)
[2019-10-31] MEDS ORDERED: MAGNESIUM SULFATE 4GM 100 ML IV ONE (18:00)
[2019-10-31] MEDS ORDERED: PIPERACILLIN/TAZOBACTAM 3.375 GM in IV NORMAL SALINE 50ML 50 ML IV SCH (18:00)
[2019-10-31] MEDS: PANTOPRAZOLE IV PUSH 40 MG VIAL. IVP SCH (19:06)
[2019-10-31 21:42] LABS: CALCIUM 6.9 mg/dL (8.5-10.1); CREATININE 1.4 mg/dL (0.7-1.3); GFR 53.6; MAGNESIUM 2.5 mg/dL (1.8-2.4); PHOSPHORUS 2.6 mg/dL (2.6-4.7)
--- NOTE | 2019-10-31 22:15 | PDOC2 ---
CONSULT Date of Consult Date of Consult DATE: 10/31/19 TIME: 08:02 Reason for Consult Reason for Consult: Coagulopathy Referring Physician Referring Physician: Dr Walter Identification/Chief Complaint Chief Complaint Septic shock Problems: (1) Elevated INR (2) Severe sepsis (3) DKA (diabetic ketoacidoses) Source Source: Chart review History of Present Illness Reason for Visit: Mr Aggarwal is a 49 year old male who has been admitted to the hospital after presenting with altered mental status. He was found to be critically ill with septic shock, DKA and acute respiratory failure from metabolic acidosis and has been admitted to the ICU. He was intubated and sedated at the time of my visit and history was primarily obtained by chart review. He was recently hospitalized in September with presumed gall-stone pancreatitis and underwent a cholecystectomy. Since his hospitalization, he has received treatment for DKA and septic shock. Blood cultures have grown gram positive cocci. His lab studies have also shown elevated INR and hematology consultation has been requested for further recommendations on management. No significant hematocrit drop has been noted since his hospitalization but coffee grounds were documented in nursing note that commented on gastric contents that were suctioned. Past Medical History Cardiovascular: HTN Heme/Onc: No pertinent hx Hepatobiliary: No pertinent hx Psych: No pertinent hx, Bipolar, Other Rheumatologic: No pertinent hx Endocrine: Hypothyroidism Past Surgical History Past Surgical History: Total knee replacement Family History Family History: No Significant, High Cholestrol, Hypertension Social History <1 pack per day ALCOHOL: rare Drugs: None Current Problem List Problem List Problems Medical Problems: (1) DKA (diabetic ketoacidoses) Status: Acute (2) Hypokalemia Status: Acute (3) Respiratory failure Status: Acute (4) Severe sepsis Status: Acute (5) Suspected 2019-nCoV infection Status: Acute Current Medications Current Medications Current Medications Midazolam HCl 100 ml @ 1 mls/hr 1X ONCE IV Last administered on 10/30/19at 10:40; Start 10/30/19 at 10:30; Stop 11/03/19 at 14:29 Midazolam HCl 50 mg/Sodium Chloride 50 ml @ 0 mls/hr 1X ONCE IV ; Start 10/30/19 at 10:30; Stop 10/30/19 at 10:31; Status UNV Etomidate (Amidate) 20 mg 1X ONCE IV Last administered on 10/30/19at 10:38; Start 10/30/19 at 10:30; Stop 10/30/19 at 10:32; Status DC Succinylcholine Chloride (Anectine) 100 mg 1X ONCE IV Last administered on 10/30/19at 10:38; Start 10/30/19 at 10:30; Stop 10/30/19 at 10:32; Status DC Norepinephrine Bitartrate 8 mg/ Dextrose 258 ml @ 13.177 mls/ hr 1X ONCE IV Last administered on 10/30/19at 10:39; Start 10/30/19 at 10:25; Stop 10/31/19 at 05:59; Status DC Piperacillin Sod/ Tazobactam Sod 3.375 gm/Sodium Chloride 50 ml @ 100 mls/hr 1X ONCE IV Last administered on 10/30/19at 10:42; Start 10/30/19 at 11:00; Stop 10/30/19 at 11:29; Status DC Rocuronium [place] (Zemuron) 10 mg 1X ONCE IV ; Start 10/30/19 at 10:45; Stop 10/30/19 at 10:46; Status Cancel Sodium Chloride 1,000 ml @ 1,000 mls/hr 1X ONCE IV Last administered on 10/29at 10:43; Start 10/30/19 at 10:45; Stop 10/30/19 at 11:44; Status DC Sodium Chloride 1,000 ml @ 1,000 mls/hr 1X ONCE IV Last administered on 10/30/19at 10:43; Start 10/30/19 at 10:45; Stop 10/30/19 at 11:44; Status DC Rocuronium [place] (Zemuron) 50 mg 1X ONCE IV Last administered on 10/30/19at 10:45; Start 10/30/19 at 10:45; Stop 10/30/19 at 10:46; Status DC Potassium Chloride/Water 100 ml @ 100 mls/hr Q1H IV Last administered on 10/30/19at 12:56; Start 10/30/19 at 12:00; Stop 10/30/19 at 13:59; Status DC Insulin Human Regular 100 ml @ 0 mls/hr 1X ONCE IV Last administered on 10/30/19at 12:55; Start 10/30/19 at 12:00; Stop 10/30/19 at 12:01; Status DC Sodium Chloride 1,000 ml @ 1,000 mls/hr 1X ONCE IV Last administered on 10/30/19at 12:45; Start 10/30/19 at 12:15; Stop 10/30/19 at 13:14; Status DC Ondansetron HCl (Zofran) 4 mg PRN Q8HRS PRN IV NAUSEA/VOMITING; Start 10/30/19 at 12:30; Stop 10/31/19 at 12:29; Status DC Sodium Chloride 1,000 ml @ 125 mls/hr Q8H IV Last administered on 10/30/19at 15:20; Start 10/30/19 at 12:25; Stop 10/31/19 at 07:13; Status DC Dexmedetomidine HCl 400 mcg/ Sodium Chloride 100 ml @ 0 mls/hr CONT PRN IV SEE COMMENTS Last administered on 10/31/19at 19:46; Start 10/30/19 at 15:00 Fentanyl Citrate (Fentanyl 2ml Vial) 25 mcg PRN Q1HR PRN IV PAIN; Start 10/30/19 at 15:00; Status UNV Lorazepam (Ativan Inj) 0.5 mg PRN Q2HRS PRN IV AGITATION; Start 10/30/19 at 15:00; Status UNV Sodium Chloride 500 ml @ 500 mls/hr 1X PRN PRN IV COMMENTS; Start 10/30/19 at 15:00 Atropine Sulfate (ATROPINE 0.5mg SYRINGE) 0.5 mg PRN Q5MIN PRN IV SEE COMMENTS; Start 10/30/19 at 15:00 Midazolam HCl 100 ml @ 1 mls/hr CONT PRN IV SEE COMMENTS Last administered on 10/31/19at 13:34; Start 10/30/19 at 17:00 Pantoprazole Sodium (PROTONIX VIAL for IV PUSH) 40 mg DAILYAC IVP Last administered on 10/31/19at 07:23; Start 10/31/19 at 07:30; Stop 10/31/19 at 11:55; Status DC Pantoprazole Sodium (PROTONIX VIAL for IV PUSH) 40 mg 1X ONCE IVP Last administered on 10/30/19at 22:00; Start 10/30/19 at 18:45; Stop 10/30/19 at 18:47; Status DC Phytonadione (Vitamin K Ampule) 5 mg 1X ONCE SQ Last administered on 10/30/19at 20:01; Start 10/30/19 at 18:45; Stop 10/30/19 at 18:47; Status DC Fentanyl Citrate 30 ml @ 0 mls/hr CONT PRN IV SEE PROTOCOL Last administered on 10/31/19at 13:34; Start 10/30/19 at 19:00 Dextrose/Sodium Chloride 1,000 ml @ 250 mls/hr Q4H IV Last administered on 10/31/19at 18:06; Start 10/30/19 at 19:30 Potassium Phosphate 13.6 mmol/Sodium Chloride 254.5333 ml @ 127.... Q2H IV Last administered on 10/30/19at 22:00; Start 10/30/19 at 20:00; Stop 10/30/19 at 23:59; Status DC Piperacillin Sod/ Tazobactam Sod 2.25 gm/Sodium Chloride 50 ml @ 100 mls/hr Q6HRS IV Last administered on 10/31/19at 12:28; Start 10/31/19 at 00:00; Stop 10/31/19 at 14:01; Status DC Daptomycin 540 mg/ Sodium Chloride 50 ml @ 100 mls/hr ONCE ONCE IV Last administered on 10/30/19at 22:09; Start 10/30/19 at 22:00; Stop 10/30/19 at 22:29; Status DC Norepinephrine Bitartrate 8 mg/ Dextrose 258 ml @ 17.554 mls/ hr CONT PRN IV PER PROTOCOL Last administered on 10/31/19at 14:23; Start 10/30/19 at 22:15 Potassium Chloride/Water 100 ml @ 100 mls/hr Q1H IV Last administered on 10/31/19at 01:30; Start 10/30/19 at 23:30; Stop 10/31/19 at 02:29; Status DC Dextrose (Dextrose 50%-Water Syringe) 25 gm PRN Q10MIN PRN IV HYPOGLYCEMIA Last administered on 10/31/19at 02:39; Start 10/31/19 at 02:30 Potassium Chloride/Water 100 ml @ 100 mls/hr Q1H IV Last administered on 10/31/19at 04:39; Start 10/31/19 at 03:30; Stop 10/31/19 at 05:29; Status DC Insulin Human Regular 100 unit/ Sodium Chloride 101 ml @ 0 mls/hr CONT PRN IV SEE I/O RECORD Last administered on 10/31/19at 07:48; Start 10/31/19 at 03:15 Potassium Chloride/Water 100 ml @ 100 mls/hr Q1H IV Last administered on 10/31/19at 08:27; Start 10/31/19 at 07:30; Stop 10/31/19 at 09:29; Status DC Potassium Phosphate 13.6 mmol/Sodium Chloride 254.5333 ml @ 127.... Q2H IV Last administered on 10/31/19at 13:18; Start 10/31/19 at 11:00; Stop 10/31/19 at 14:59; Status DC Pantoprazole Sodium (PROTONIX VIAL for IV PUSH) 40 mg [id number] IVP Last administered on 10/31/19at 19:06; Start 10/31/19 at 18:00 Phytonadione (Vitamin K Ampule) 10 mg 1X ONCE SQ Last administered on 10/31/19at 12:29; Start 10/31/19 at 12:00; Stop 10/31/19 at 12:01; Status DC Linezolid/Dextrose 300 ml @ 300 mls/hr Q12HR IV Last administered on 10/31/19at 21:16; Start 10/31/19 at 14:00 Piperacillin Sod/ Tazobactam Sod 3.375 gm/Sodium Chloride 50 ml @ 100 mls/hr Q6HRS IV Last administered on 10/31/19at 18:06; Start 10/31/19 at 18:00; Stop 10/31/19 at 18:32; Status DC Acetaminophen (Tylenol Supp) 650 mg PRN Q6HRS PRN [place] MILD PAIN / TEMP > 100.3'F Last administered on 10/31/19at 16:04; Start 10/31/19 at 16:00 Potassium Chloride/Water 100 ml @ 100 mls/hr Q1H IV Last administered on 10/31/19at 19:07; Start 10/31/19 at 18:00; Stop 10/31/19 at 19:59; Status DC Magnesium Sulfate 100 ml @ 25 mls/hr 1X ONCE IV Last administered on 10/31/19at 18:07; Start 10/31/19 at 18:00; Stop 10/31/19 at 21:59; Status DC Meropenem 500 mg/ Sodium Chloride 50 ml @ 100 mls/hr Q6HRS IV ; Start 11/01/19 at 00:00 Potassium Chloride/Water 100 ml @ 100 mls/hr Q1H IV ; Start 10/31/19 at 22:00; Stop 10/31/19 at 23:59 Active Scripts Active Humalog (Insulin Lispro) 100 Unit/1 Ml Insuln.pen 0 Units SQ QIDACHS 14 Days Culturelle (Lactobacillus Rhamnosus Gg) 1 Each Cap.sprink 1 Cap PO BID 30 Days Pantoprazole Sodium (Pantoprazole Sodium) 40 Mg Tablet.dr 40 Mg PO DAILYAC 30 Days Dok (Docusate Sodium) 100 Mg Capsule 100 Mg PO PRN BID PRN 30 Days Klor-Con M20 (Potassium Chloride) 20 Meq Tab.er.prt 20 Meq PO DAILYWBKFT 14 Days Proair Hfa (Albuterol Sulfate) 8.5 Gm Hfa.aer.ad 2.5 Mg NEB PRN Q4HRS PRN 14 Days Reported Clindamycin Hcl 300 Mg Capsule 600 Mg PO BID Lidocaine PATCH (Lidocaine) 1 Each Adh..patch 1 Each TP DAILY REMOVE AFTER 12 HOURS Lisinopril 5 Mg Tablet 1 Tab PO DAILY PRN Clonazepam 1 Mg Tablet 1 Mg PO BID Carnuel Carbonate 300 Mg Tablet 1 Tab PO BID Zanaflex (Tizanidine Hcl) 4 Mg Capsule 1 Cap PO TID PRN Janumet 50-1,000 Mg Tablet (Sitagliptin Phos/Metformin Hcl) 1 Each Tablet 1 Tab PO BID Doxepin Hcl 50 Mg Capsule 300 Mg PO HS Allergies Allergies: Coded Allergies: daptomycin (Verified Allergy, Intermediate, chills, nausea , 08/09/19) ketamine (Verified Allergy, Intermediate, 09/13/19) I S O L A T I O N *CONTACT* (Verified Allergy, Unknown, Unknown, 08/14/19) mrsa ROS Review of System Unable to obtained due to patient's clinical status Physical Exam General: Other (Intubated and sedated) HEENT: Atraumatic Lungs: Clear to auscultation, Other (mechanical breath sounds) Heart: Regular rate Abdomen: Normal bowel sounds, Soft Extremities: No clubbing Skin: No rashes Neuro: Other (Unable to assess) Psych/Mental Status: Other (Unable to assess) MUSCULOSKELETAL: No swelling Vitals VITALS Vital Signs Date Time Temp Pulse Resp B/P (MAP) Pulse Ox O2 Delivery O2 Flow Rate FiO2 10/31/19 21:00 115 20 109/76 (87) 100 Ventilator 10/31/19 20:00 100.8 100.8 10/31/19 06:08 15.0 Labs Labs Laboratory Tests Test 10/30/19 10:17 10/30/19 10:28 10/30/19 10:45 10/30/19 11:35 White Blood Count 11.0 x10^3/uL (4.0-11.0) Red Blood Count 5.37 x10^6/uL (4.30-5.70) Hemoglobin 12.5 g/dL (13.0-17.5) Hematocrit 40.2 % (39.0-53.0) Mean Corpuscular Volume 75 fL (79-100) Mean Corpuscular Hemoglobin 23 pg (25-35) Mean Corpuscular Hemoglobin Concent 31 g/dL (31-37) Red Cell Distribution Width 21.2 % (11.5-14.5) Platelet Count 314 x10^3/uL (140-400) Neutrophils (%) (Auto) 84 % (31-73) Lymphocytes (%) (Auto) 11 % (24-48) Monocytes (%) (Auto) 5 % (0-9) Eosinophils (%) (Auto) 0 % (0-3) Basophils (%) (Auto) 0 % (0-3) Neutrophils # (Auto) 9.2 x10^3/uL (1.8-7.7) Lymphocytes # (Auto) 1.2 x10^3/uL (1.0-4.8) Monocytes # (Auto) 0.6 x10^3/uL (0.0-1.1) Eosinophils # (Auto) 0.0 x10^3/uL (0.0-0.7) Basophils # (Auto) 0.0 x10^3/uL (0.0-0.2) Platelet Estimate Adequate (ADEQUATE) Anisocytosis Slight Microcytosis Slight Sodium Level 137 mmol/L (136-145) Potassium Level 2.3 mmol/L (3.5-5.1) Chloride Level 90 mmol/L (98-107) Carbon Dioxide Level 13 mmol/L (21-32) Anion Gap 34 (6-14) Blood Urea Nitrogen 37 mg/dL (8-26) Creatinine 3.0 mg/dL (0.7-1.3) Estimated GFR (Cockcroft-Gault) 22.3 BUN/Creatinine Ratio 12 (6-20) Glucose Level 545 mg/dL (70-99) Lactic Acid Level 12.4 mmol/L (0.4-2.0) Calcium Level 8.6 mg/dL (8.5-10.1) Magnesium Level 2.4 mg/dL (1.8-2.4) Total Bilirubin 0.8 mg/dL (0.2-1.0) Aspartate Amino Transf (AST/SGOT) 47 U/L (15-37) Alanine Aminotransferase (ALT/SGPT) 38 U/L (16-63) Alkaline Phosphatase 311 U/L (46-116) Troponin I Quantitative 0.130 ng/mL (0.000-0.055) AP-Nam-D-Type Natriuretic Peptide 87147 pg/mL (0-124) Total Protein 6.3 g/dL (6.4-8.2) Albumin 2.2 g/dL (3.4-5.0) Albumin/Globulin Ratio 0.5 (1.0-1.7) Lipase 173 U/L (73-393) Coronavirus (PCR) Not detected (Not Detected) Urine Collection Type U cath Urine Color Yolanda Urine Clarity Clear Urine pH (<5.0-8.0) Urine Specific [place] (1.000-1.030) Urine Protein mg/dL (NEG-TRACE) Urine Glucose (UA) mg/dL (NEG) Urine Ketones (Stick) mg/dL (NEG) Urine Blood (NEG) Urine Nitrite (NEG) Urine Bilirubin (NEG) Urine Urobilinogen Dipstick mg/dL (0.2 mg/dL) Urine Leukocyte Esterase (NEG) Urine RBC 6-10 /HPF (0-2) Urine WBC 11-20 /HPF (0-4) Urine Squamous Epithelial Cells Occ /LPF Urine Amorphous Sediment Present /HPF Urine Bacteria 0 /HPF (0-FEW) Urine Hyaline Casts Few /HPF Urine Mucus Slight /LPF Acetone Level Sm pos (NEG) O2 Saturation 99 % (92-99) Arterial Blood pH 7.36 (7.35-7.45) Arterial Blood pCO2 at Patient Temp 24 mmHg (35-46) Arterial Blood pO2 at Patient Temp 324 mmHg (75-108) Arterial Blood HCO3 14 mmol/L (21-28) Arterial Blood Base Excess -10 mmol/L (-3-3) FiO2 60% vent Test 10/30/19 11:50 10/30/19 13:46 10/30/19 14:08 10/30/19 14:50 Prothrombin Time 49.5 SEC (11.7-14.0) Prothromb Time International Ratio 5.3 (0.8-1.1) Activated Partial Thromboplast Time 42 SEC (24-38) Glucose (Fingerstick) 429 mg/dL (70-99) 376 mg/dL (70-99) Lactic Acid Level 5.8 mmol/L (0.4-2.0) Test 10/30/19 15:56 10/30/19 17:00 10/30/19 18:15 10/30/19 18:25 Glucose (Fingerstick) 303 mg/dL (70-99) 254 mg/dL (70-99) 74 mg/dL (70-99) Sodium Level 144 mmol/L (136-145) Potassium Level 2.2 mmol/L (3.5-5.1) Chloride Level 105 mmol/L (98-107) Carbon Dioxide Level 23 mmol/L (21-32) Anion Gap 16 (6-14) Blood Urea Nitrogen 34 mg/dL (8-26) Creatinine 1.9 mg/dL (0.7-1.3) Estimated GFR (Cockcroft-Gault) 37.7 Glucose Level 77 mg/dL (70-99) Calcium Level 7.8 mg/dL (8.5-10.1) Phosphorus Level 1.4 mg/dL (2.6-4.7) Magnesium Level 2.1 mg/dL (1.8-2.4) Test 10/30/19 20:12 10/30/19 21:19 10/30/19 22:24 10/30/19 23:32 Glucose (Fingerstick) 258 mg/dL (70-99) 158 mg/dL (70-99) 174 mg/dL (70-99) 177 mg/dL (70-99) Test 10/31/19 00:45 10/31/19 01:59 10/31/19 02:00 10/31/19 02:22 Glucose (Fingerstick) 141 mg/dL (70-99) 58 mg/dL (70-99) 47 mg/dL (70-99) Prothrombin Time 41.4 SEC (11.7-14.0) Prothromb Time International Ratio 4.2 (0.8-1.1) Activated Partial Thromboplast Time 56 SEC (24-38) Fibrinogen 431 mg/dL (200-440) D-Dimer (Enedelia) 0.93 ug/mlFEU (0.00-0.50) Sodium Level 146 mmol/L (136-145) Potassium Level 3.4 mmol/L (3.5-5.1) Chloride Level 110 mmol/L (98-107) Carbon Dioxide Level 20 mmol/L (21-32) Anion Gap 16 (6-14) Blood Urea Nitrogen 30 mg/dL (8-26) Creatinine 1.6 mg/dL (0.7-1.3) Estimated GFR (Cockcroft-Gault) 46.0 Glucose Level 35 mg/dL (70-99) Calcium Level 7.0 mg/dL (8.5-10.1) Phosphorus Level 2.6 mg/dL (2.6-4.7) Magnesium Level 1.9 mg/dL (1.8-2.4) Test 10/31/19 02:43 10/31/19 03:48 10/31/19 04:56 10/31/19 06:00 Glucose (Fingerstick) 115 mg/dL (70-99) 129 mg/dL (70-99) 157 mg/dL (70-99) White Blood Count 7.1 x10^3/uL (4.0-11.0) Red Blood Count 4.74 x10^6/uL (4.30-5.70) Hemoglobin 11.2 g/dL (13.0-17.5) Hematocrit 34.3 % (39.0-53.0) Mean Corpuscular Volume 73 fL (79-100) Mean Corpuscular Hemoglobin 24 pg (25-35) Mean Corpuscular Hemoglobin Concent 33 g/dL (31-37) Red Cell Distribution Width 22.0 % (11.5-14.5) Platelet Count 219 x10^3/uL (140-400) Neutrophils (%) (Auto) 73 % (31-73) Lymphocytes (%) (Auto) 21 % (24-48) Monocytes (%) (Auto) 7 % (0-9) Eosinophils (%) (Auto) 0 % (0-3) Basophils (%) (Auto) 0 % (0-3) Neutrophils # (Auto) 5.2 x10^3/uL (1.8-7.7) Lymphocytes # (Auto) 1.5 x10^3/uL (1.0-4.8) Monocytes # (Auto) 0.5 x10^3/uL (0.0-1.1) Eosinophils # (Auto) 0.0 x10^3/uL (0.0-0.7) Basophils # (Auto) 0.0 x10^3/uL (0.0-0.2) Sodium Level 141 mmol/L (136-145) Potassium Level 3.9 mmol/L (3.5-5.1) Chloride Level 104 mmol/L (98-107) Carbon Dioxide Level 18 mmol/L (21-32) Anion Gap 19 (6-14) Blood Urea Nitrogen 31 mg/dL (8-26) Creatinine 1.6 mg/dL (0.7-1.3) Estimated GFR (Cockcroft-Gault) 46.0 Glucose Level 307 mg/dL (70-99) Calcium Level 7.0 mg/dL (8.5-10.1) Phosphorus Level 3.5 mg/dL (2.6-4.7) Magnesium Level 1.9 mg/dL (1.8-2.4) Test 10/31/19 06:04 10/31/19 07:42 10/31/19 08:00 10/31/19 09:18 Glucose (Fingerstick) 291 mg/dL (70-99) 216 mg/dL (70-99) 298 mg/dL (70-99) O2 Saturation 99 % (92-99) Arterial Blood pH 7.52 (7.35-7.45) Arterial Blood pH (Temp corrected) 7.50 Arterial Blood pCO2 at Patient Temp 22 mmHg (35-46) Arterial Blood pCO2 (Temp correct) 22 mmHg Arterial Blood pO2 at Patient Temp 200 mmHg (75-108) Arterial Blood pO2 (Temp corrected) 204 mmHg Arterial Blood HCO3 17 mmol/L (21-28) Arterial Blood Base Excess -4 mmol/L (-3-3) FiO2 40 vent Test 10/31/19 10:05 10/31/19 10:07 10/31/19 12:09 10/31/19 14:04 Sodium Level 143 mmol/L (136-145) Potassium Level 3.3 mmol/L (3.5-5.1) Chloride Level 108 mmol/L (98-107) Carbon Dioxide Level 20 mmol/L (21-32) Anion Gap 15 (6-14) Blood Urea Nitrogen 28 mg/dL (8-26) Creatinine 1.7 mg/dL (0.7-1.3) Estimated GFR (Cockcroft-Gault) 42.9 Glucose Level 290 mg/dL (70-99) Calcium Level 7.0 mg/dL (8.5-10.1) Phosphorus Level 1.8 mg/dL (2.6-4.7) Magnesium Level 1.8 mg/dL (1.8-2.4) Glucose (Fingerstick) 255 mg/dL (70-99) 123 mg/dL (70-99) 109 mg/dL (70-99) Test 10/31/19 15:39 10/31/19 15:40 10/31/19 18:22 10/31/19 19:55 Glucose (Fingerstick) 279 mg/dL (70-99) 248 mg/dL (70-99) 144 mg/dL (70-99) Sodium Level 142 mmol/L (136-145) Potassium Level 3.5 mmol/L (3.5-5.1) Chloride Level 108 mmol/L (98-107) Carbon Dioxide Level 21 mmol/L (21-32) Anion Gap 13 (6-14) Blood Urea Nitrogen 22 mg/dL (8-26) Creatinine 1.4 mg/dL (0.7-1.3) Estimated GFR (Cockcroft-Gault) 53.6 Glucose Level 311 mg/dL (70-99) Calcium Level 6.5 mg/dL (8.5-10.1) Phosphorus Level 3.8 mg/dL (2.6-4.7) Magnesium Level 1.6 mg/dL (1.8-2.4) Test 7/22/20 21:15 Sodium Level 145 mmol/L (136-145) Potassium Level 3.0 mmol/L (3.5-5.1) Chloride Level 110 mmol/L (98-107) Carbon Dioxide Level 20 mmol/L (21-32) Anion Gap 15 (6-14) Blood Urea Nitrogen 21 mg/dL (8-26) Creatinine 1.4 mg/dL (0.7-1.3) Estimated GFR (Cockcroft-Gault) 53.6 Glucose Level 102 mg/dL (70-99) Calcium Level 6.9 mg/dL (8.5-10.1) Phosphorus Level 2.6 mg/dL (2.6-4.7) Magnesium Level 2.5 mg/dL (1.8-2.4) Laboratory Tests Test 10/30/19 22:24 10/30/19 23:32 10/31/19 00:45 10/31/19 01:59 Glucose (Fingerstick) 174 mg/dL (70-99) 177 mg/dL (70-99) 141 mg/dL (70-99) 58 mg/dL (70-99) Test 10/31/19 02:00 10/31/19 02:22 10/31/19 02:43 10/31/19 03:48 Prothrombin Time 41.4 SEC (11.7-14.0) Prothromb Time International Ratio 4.2 (0.8-1.1) Activated Partial Thromboplast Time 56 SEC (24-38) Fibrinogen 431 mg/dL (200-440) D-Dimer (Enedelia) 0.93 ug/mlFEU (0.00-0.50) Sodium Level 146 mmol/L (136-145) Potassium Level 3.4 mmol/L (3.5-5.1) Chloride Level 110 mmol/L (98-107) Carbon Dioxide Level 20 mmol/L (21-32) Anion Gap 16 (6-14) Blood Urea Nitrogen 30 mg/dL (8-26) Creatinine 1.6 mg/dL (0.7-1.3) Estimated GFR (Cockcroft-Gault) 46.0 Glucose Level 35 mg/dL (70-99) Calcium Level 7.0 mg/dL (8.5-10.1) Phosphorus Level 2.6 mg/dL (2.6-4.7) Magnesium Level 1.9 mg/dL (1.8-2.4) Glucose (Fingerstick) 47 mg/dL (70-99) 115 mg/dL (70-99) 129 mg/dL (70-99) Test 10/31/19 04:56 10/31/19 06:00 10/31/19 06:04 10/31/19 07:42 Glucose (Fingerstick) 157 mg/dL (70-99) 291 mg/dL (70-99) 216 mg/dL (70-99) White Blood Count 7.1 x10^3/uL (4.0-11.0) Red Blood Count 4.74 x10^6/uL (4.30-5.70) Hemoglobin 11.2 g/dL (13.0-17.5) Hematocrit 34.3 % (39.0-53.0) Mean Corpuscular Volume 73 fL (79-100) Mean Corpuscular Hemoglobin 24 pg (25-35) Mean Corpuscular Hemoglobin Concent 33 g/dL (31-37) Red Cell Distribution Width 22.0 % (11.5-14.5) Platelet Count 219 x10^3/uL (140-400) Neutrophils (%) (Auto) 73 % (31-73) Lymphocytes (%) (Auto) 21 % (24-48) Monocytes (%) (Auto) 7 % (0-9) Eosinophils (%) (Auto) 0 % (0-3) Basophils (%) (Auto) 0 % (0-3) Neutrophils # (Auto) 5.2 x10^3/uL (1.8-7.7) Lymphocytes # (Auto) 1.5 x10^3/uL (1.0-4.8) Monocytes # (Auto) 0.5 x10^3/uL (0.0-1.1) Eosinophils # (Auto) 0.0 x10^3/uL (0.0-0.7) Basophils # (Auto) 0.0 x10^3/uL (0.0-0.2) Sodium Level 141 mmol/L (136-145) Potassium Level 3.9 mmol/L (3.5-5.1) Chloride Level 104 mmol/L (98-107) Carbon Dioxide Level 18 mmol/L (21-32) Anion Gap 19 (6-14) Blood Urea Nitrogen 31 mg/dL (8-26) Creatinine 1.6 mg/dL (0.7-1.3) Estimated GFR (Cockcroft-Gault) 46.0 Glucose Level 307 mg/dL (70-99) Calcium Level 7.0 mg/dL (8.5-10.1) Phosphorus Level 3.5 mg/dL (2.6-4.7) Magnesium Level 1.9 mg/dL (1.8-2.4) Test 10/31/19 08:00 10/31/19 09:18 10/31/19 10:05 10/31/19 10:07 O2 Saturation 99 % (92-99) Arterial Blood pH 7.52 (7.35-7.45) Arterial Blood pH (Temp corrected) 7.50 Arterial Blood pCO2 at Patient Temp 22 mmHg (35-46) Arterial Blood pCO2 (Temp correct) 22 mmHg Arterial Blood pO2 at Patient Temp 200 mmHg (75-108) Arterial Blood pO2 (Temp corrected) 204 mmHg Arterial Blood HCO3 17 mmol/L (21-28) Arterial Blood Base Excess -4 mmol/L (-3-3) FiO2 40 vent Glucose (Fingerstick) 298 mg/dL (70-99) 255 mg/dL (70-99) Sodium Level 143 mmol/L (136-145) Potassium Level 3.3 mmol/L (3.5-5.1) Chloride Level 108 mmol/L (98-107) Carbon Dioxide Level 20 mmol/L (21-32) Anion Gap 15 (6-14) Blood Urea Nitrogen 28 mg/dL (8-26) Creatinine 1.7 mg/dL (0.7-1.3) Estimated GFR (Cockcroft-Gault) 42.9 Glucose Level 290 mg/dL (70-99) Calcium Level 7.0 mg/dL (8.5-10.1) Phosphorus Level 1.8 mg/dL (2.6-4.7) Magnesium Level 1.8 mg/dL (1.8-2.4) Test 10/31/19 12:09 10/31/19 14:04 10/31/19 15:39 10/31/19 15:40 Glucose (Fingerstick) 123 mg/dL (70-99) 109 mg/dL (70-99) 279 mg/dL (70-99) Sodium Level 142 mmol/L (136-145) Potassium Level 3.5 mmol/L (3.5-5.1) Chloride Level 108 mmol/L (98-107) Carbon Dioxide Level 21 mmol/L (21-32) Anion Gap 13 (6-14) Blood Urea Nitrogen 22 mg/dL (8-26) Creatinine 1.4 mg/dL (0.7-1.3) Estimated GFR (Cockcroft-Gault) 53.6 Glucose Level 311 mg/dL (70-99) Calcium Level 6.5 mg/dL (8.5-10.1) Phosphorus Level 3.8 mg/dL (2.6-4.7) Magnesium Level 1.6 mg/dL (1.8-2.4) Test 10/31/19 18:22 10/31/19 19:55 10/31/19 21:15 Glucose (Fingerstick) 248 mg/dL (70-99) 144 mg/dL (70-99) Sodium Level 145 mmol/L (136-145) Potassium Level 3.0 mmol/L (3.5-5.1) Chloride Level 110 mmol/L (98-107) Carbon Dioxide Level 20 mmol/L (21-32) Anion Gap 15 (6-14) Blood Urea Nitrogen 21 mg/dL (8-26) Creatinine 1.4 mg/dL (0.7-1.3) Estimated GFR (Cockcroft-Gault) 53.6 Glucose Level 102 mg/dL (70-99) Calcium Level 6.9 mg/dL (8.5-10.1) Phosphorus Level 2.6 mg/dL (2.6-4.7) Magnesium Level 2.5 mg/dL (1.8-2.4) Assessment/Plan Assessment/Plan Assessment: Septic shock with GPC bacteremia Acute respiratory failure requiring MV DKA Elevated INR, likely secondary to DIC DM2 Recent gallstone pancreatitis complicated by pseudocyst Recommendations: - Monitor hemodynamic status closely - Hb Hct every 12 hrs - Agree with VItamin K - Check fibrinogen, d-dimer, INR with mixing studies and APTT with AM labs - Check peripheral smear to evaluate for microangiopathic hemolytic anemia - Maintain low threshold for evaluation of VTE if respiratory status does not improve - If clinically significant bleeding is noted, keep fibrinogen above 100 mg/dl with 5 units cryoprecipitate as needed Thank you for the consult. Ant Wilkinson MD Hematology-Oncology Ph: [phone] - OLGA WILKINSON MD Oct 31, 2019 22:15
[2019-10-31] MEDS: MEROPENEM 500 MG in IV NORMAL SALINE 50ML 50 ML IV SCH (23:40)
[2019-11-01] VITALS (25 sets, daily range): BP systolic 82–137; BP diastolic 61–96
[2019-11-01] MEDS: DEXMEDETOMIDINE 400 MCG in IV NORMAL SALINE 100ML 96 ML IV PRN ×5 (00:22→20:01)
[2019-11-01] MEDS: NOREPINEPHRINE VIAL 8 MG in IV DEXTROSE 5% 250 ML IV PRN (00:23)
[2019-11-01 01:45] LABS: CALCIUM 6.3 mg/dL (8.5-10.1); CREATININE 1.4 mg/dL (0.7-1.3); GFR 53.6; MAGNESIUM 2.1 mg/dL (1.8-2.4); PHOSPHORUS 2.3 mg/dL (2.6-4.7); POTASSIUM 3.9 mmol/L (3.5-5.1)
[2019-11-01] MEDS ORDERED: POTASSIUM PHOS,M-BASIC-D-BASIC 15 MMOL in IV NORMAL SALINE 250ML 250 ML IV ONE (02:45)
[2019-11-01] MEDS: POTASSIUM CHLORIDE 20MEQ 100 ML IV SCH ×2 (02:48→03:45)
[2019-11-01] MEDS: PANTOPRAZOLE IV PUSH 40 MG VIAL. IVP SCH ×2 (05:52→17:45)
--- NOTE | 2019-11-01 06:16 | RAD ---
EXAM: PORTABLE CHEST 1V INDICATION: Reason: L pneumothorax 116 / Spl. Instructions: / History: . TECHNIQUE: Single view COMPARISON: 10/31/2019 chest x-ray FINDINGS: Patient remains intubated with ET tube terminating 5.[address]. Enteric tube remains present passing below the diaphragms. Left subclavian approach central venous catheter with the tip near the cavoatrial junction is present. The heart size is normal. The great vessels appear unremarkable. There is no hilar or mediastinal mass. The lungs are slightly lower in volume but otherwise clear.. There is no pleural effusion or pneumothorax. There are no significant osseous abnormalities. IMPRESSION: Stable lines and tubes with slightly lower lung volumes are otherwise no acute cardiopulmonary process. No pneumothorax shown on this exam. Electronically signed by: Davidson Sauer MD (11/01/2019 6:14 AM) [facility] [place]
[2019-11-01 06:36] LABS: PROTHROMBIN TIME PATIENT 16.7 SEC (11.7-14.0)
[2019-11-01] MEDS: MEROPENEM 500 MG in IV NORMAL SALINE 50ML 50 ML IV SCH ×5 (07:06→23:29)
[2019-11-01 07:38] LABS: CALCIUM 6.2 mg/dL (8.5-10.1); CREATININE 1.2 mg/dL (0.7-1.3); GFR 64.1; MAGNESIUM 1.9 mg/dL (1.8-2.4); PHOSPHORUS 2.7 mg/dL (2.6-4.7); POTASSIUM 4.4 mmol/L (3.5-5.1)
[2019-11-01 07:41] LABS: BASE EXCESS ABG -5 mmol/L (-3-3); HCO3 ABG 18 mmol/L (21-28); PCO2 ABG 25 mmHg (35-46); PO2 ABG 138 mmHg (75-108); SAT O2 ABG 98 % (92-99)
--- NOTE | 2019-11-01 07:43 | PDOC ---
Infectious Disease Note Subjective: Subjective Patient intubated/sedated Low-dose pressors NG tube/ETT bloodstained secretion T-max 102 afebrile this morning Vital Signs: Vital Signs Vital Signs Date Time Temp Pulse Resp B/P (MAP) Pulse Ox O2 Delivery O2 Flow Rate FiO2 11/01/19 07:00 106 18 107/77 (87) 100 Ventilator 11/01/19 04:00 99.8 99.8 11/01/19 00:39 15.0 Physical Exam: PHYSICAL EXAM GENERAL: Intubated, sedated. HEENT: Normocephalic, atraumatic, NGT and ETT with bloodstained drainage NECK: Supple, no JVD, no lymphadenopathy, no thyromegaly. LUNGS: Decreased breath sounds at the bases, otherwise, clear. HEART: S1, S2, tachycardia. No murmurs. ABDOMEN: Soft, nontender, bowel sounds present. EXTREMITIES: No cyanosis, no clubbing, no edema. Negative Nestor's sign. MUSCULOSKELETAL: Previous left knee surgery. Incision scar intact. No effusion. No surrounding erythema, no fluctuance. Nestor's negative. DERMATOLOGIC: Warm, dry. No generalized rash. NEUROLOGIC: Sedated. PSYCHIATRIC: Sedated. LINES: Left central line looks clean. PIV looks clean. Medications: Inpatient Meds: Current Medications Medications (Trade) Dose Ordered Sig/Edilma Start Time Stop Time Status Last Admin Dose Admin Acetaminophen (Tylenol Supp) 650 mg PRN Q6HRS PRN 10/31/19 16:00 10/31/19 16:04 650 MG Atropine Sulfate (ATROPINE 0.5mg SYRINGE) 0.5 mg PRN Q5MIN PRN 10/30/19 15:00 Daptomycin 540 mg/ Sodium Chloride 50 ml @ 100 mls/hr ONCE ONCE 10/30/19 22:00 10/30/19 22:29 DC 10/30/19 22:09 100 MLS/HR Dexmedetomidine HCl 400 mcg/ Sodium Chloride 100 ml @ 0 mls/hr CONT PRN 10/30/19 15:00 11/01/19 04:52 20.3 MLS/HR Dextrose (Dextrose 50%-Water Syringe) 25 gm PRN Q10MIN PRN 10/31/19 02:30 10/31/19 02:39 25 GM Dextrose/Sodium Chloride 1,000 ml @ 250 mls/hr Q4H 10/30/19 19:30 10/31/19 02:03 250 MLS/HR Etomidate (Amidate) 20 mg 1X ONCE 10/30/19 10:30 10/30/19 10:32 DC 10/30/19 10:38 20 MG Fentanyl Citrate 30 ml @ 0 mls/hr CONT PRN 10/30/19 19:00 11/01/19 00:02 2.5 MLS/HR Fentanyl Citrate (Fentanyl 2ml Vial) 25 mcg PRN Q1HR PRN 10/30/19 15:00 UNV Insulin Human Regular 100 ml @ 0 mls/hr 1X ONCE 10/30/19 12:00 10/30/19 12:01 DC 10/30/19 12:55 9.7 MLS/HR Insulin Human Regular 100 unit/ Sodium Chloride 101 ml @ 0 mls/hr CONT PRN 10/31/19 03:15 10/31/19 07:48 3.131 MLS/HR Linezolid/Dextrose 300 ml @ 300 mls/hr Q12HR 10/31/19 14:00 10/31/19 21:16 300 MLS/HR Lorazepam (Ativan Inj) 0.5 mg PRN Q2HRS PRN 10/30/19 15:00 UNV Magnesium Sulfate 100 ml @ 25 mls/hr 1X ONCE 10/31/19 18:00 10/31/19 21:59 DC 10/31/19 18:07 25 MLS/HR Meropenem 500 mg/ Sodium Chloride 50 ml @ 100 mls/hr Q6HRS 11/01/19 00:00 11/01/19 07:06 100 MLS/HR Midazolam HCl 100 ml @ 1 mls/hr CONT PRN 10/30/19 17:00 11/01/19 00:00 10 MLS/HR Midazolam HCl 50 mg/Sodium Chloride 50 ml @ 0 mls/hr 1X ONCE 10/30/19 10:30 10/30/19 10:31 UNV Norepinephrine Bitartrate 8 mg/ Dextrose 258 ml @ 17.554 mls/ hr CONT PRN 10/30/19 22:15 11/01/19 00:23 17.554 MLS/HR Ondansetron HCl (Zofran) 4 mg PRN Q8HRS PRN 10/30/19 12:30 10/31/19 12:29 DC Pantoprazole Sodium (PROTONIX VIAL for IV PUSH) 40 mg [id number] 10/31/19 18:00 11/01/19 05:52 40 MG Phytonadione (Vitamin K Ampule) 10 mg 1X ONCE 10/31/19 12:00 10/31/19 12:01 DC 10/31/19 12:29 10 MG Piperacillin Sod/ Tazobactam Sod 2.25 gm/Sodium Chloride 50 ml @ 100 mls/hr Q6HRS 10/31/19 00:00 10/31/19 14:01 DC 10/31/19 12:28 100 MLS/HR Piperacillin Sod/ Tazobactam Sod 3.375 gm/Sodium Chloride 50 ml @ 100 mls/hr Q6HRS 10/31/19 18:00 10/31/19 18:32 DC 10/31/19 18:06 100 MLS/HR Potassium Chloride/Water 100 ml @ 100 mls/hr Q1H 11/01/19 02:45 11/01/19 04:44 DC 11/01/19 03:45 100 MLS/HR Potassium Phosphate 13.6 mmol/Sodium Chloride 254.5333 ml @ 127.... Q2H 10/31/19 11:00 10/31/19 14:59 DC 10/31/19 13:18 127.267 MLS/HR Potassium Phosphate 15 mmol/ Sodium Chloride 255 ml @ 62.5 mls/hr 1X ONCE 11/01/19 02:45 11/01/19 06:49 DC 11/01/19 02:48 62.5 MLS/HR Rocuronium [place] (Zemuron) 50 mg 1X ONCE 10/30/19 10:45 10/30/19 10:46 DC 10/30/19 10:45 50 MG Sodium Chloride 500 ml @ 500 mls/hr 1X PRN PRN 10/30/19 15:00 Succinylcholine Chloride (Anectine) 100 mg 1X ONCE 10/30/19 10:30 10/30/19 10:32 DC 10/30/19 10:38 100 MG Labs: Lab Laboratory Tests Test 10/31/19 07:42 10/31/19 08:00 10/31/19 09:18 10/31/19 10:05 Glucose (Fingerstick) 216 mg/dL (70-99) 298 mg/dL (70-99) O2 Saturation 99 % (92-99) Arterial Blood pH 7.52 (7.35-7.45) Arterial Blood pH (Temp corrected) 7.50 Arterial Blood pCO2 at Patient Temp 22 mmHg (35-46) Arterial Blood pCO2 (Temp correct) 22 mmHg Arterial Blood pO2 at Patient Temp 200 mmHg (75-108) Arterial Blood pO2 (Temp corrected) 204 mmHg Arterial Blood HCO3 17 mmol/L (21-28) Arterial Blood Base Excess -4 mmol/L (-3-3) FiO2 40 vent Sodium Level 143 mmol/L (136-145) Potassium Level 3.3 mmol/L (3.5-5.1) Chloride Level 108 mmol/L (98-107) Carbon Dioxide Level 20 mmol/L (21-32) Anion Gap 15 (6-14) Blood Urea Nitrogen 28 mg/dL (8-26) Creatinine 1.7 mg/dL (0.7-1.3) Estimated GFR (Cockcroft-Gault) 42.9 Glucose Level 290 mg/dL (70-99) Calcium Level 7.0 mg/dL (8.5-10.1) Phosphorus Level 1.8 mg/dL (2.6-4.7) Magnesium Level 1.8 mg/dL (1.8-2.4) Test 10/31/19 10:07 10/31/19 12:09 10/31/19 14:04 10/31/19 15:39 Glucose (Fingerstick) 255 mg/dL (70-99) 123 mg/dL (70-99) 109 mg/dL (70-99) 279 mg/dL (70-99) Test 10/31/19 15:40 10/31/19 18:22 10/31/19 19:55 10/31/19 21:15 Sodium Level 142 mmol/L (136-145) 145 mmol/L (136-145) Potassium Level 3.5 mmol/L (3.5-5.1) 3.0 mmol/L (3.5-5.1) Chloride Level 108 mmol/L (98-107) 110 mmol/L (98-107) Carbon Dioxide Level 21 mmol/L (21-32) 20 mmol/L (21-32) Anion Gap 13 (6-14) 15 (6-14) Blood Urea Nitrogen 22 mg/dL (8-26) 21 mg/dL (8-26) Creatinine 1.4 mg/dL (0.7-1.3) 1.4 mg/dL (0.7-1.3) Estimated GFR (Cockcroft-Gault) 53.6 53.6 Glucose Level 311 mg/dL (70-99) 102 mg/dL (70-99) Calcium Level 6.5 mg/dL (8.5-10.1) 6.9 mg/dL (8.5-10.1) Phosphorus Level 3.8 mg/dL (2.6-4.7) 2.6 mg/dL (2.6-4.7) Magnesium Level 1.6 mg/dL (1.8-2.4) 2.5 mg/dL (1.8-2.4) Glucose (Fingerstick) 248 mg/dL (70-99) 144 mg/dL (70-99) Test 10/31/19 21:21 10/31/19 22:54 11/01/19 00:13 11/01/19 01:25 Glucose (Fingerstick) 101 mg/dL (70-99) 156 mg/dL (70-99) 133 mg/dL (70-99) 142 mg/dL (70-99) Test 11/01/19 01:30 11/01/19 02:38 11/01/19 04:41 11/01/19 06:00 Sodium Level 143 mmol/L (136-145) Potassium Level 3.9 mmol/L (3.5-5.1) Chloride Level 110 mmol/L (98-107) Carbon Dioxide Level 23 mmol/L (21-32) Anion Gap 10 (6-14) Blood Urea Nitrogen 19 mg/dL (8-26) Creatinine 1.4 mg/dL (0.7-1.3) Estimated GFR (Cockcroft-Gault) 53.6 Glucose Level 147 mg/dL (70-99) Calcium Level 6.3 mg/dL (8.5-10.1) Phosphorus Level 2.3 mg/dL (2.6-4.7) Magnesium Level 2.1 mg/dL (1.8-2.4) Glucose (Fingerstick) 143 mg/dL (70-99) 115 mg/dL (70-99) Prothrombin Time 16.7 SEC (11.7-14.0) Prothromb Time International Ratio 1.4 (0.8-1.1) Objective: Assessment: 1. Severe sepsis. Source GI vs other 2. Altered mental status POA 3. Acute hypoxic respiratory failure, status post intubation in ED. Pneumothorax 4. COVID. Negative 5. Lactic acidosis. DKA 6. Acute kidney injury with underlying CKD. 7. Lymphopenia. 8. Diabetic ketoacidosis. 9. Coagulopathy. Status post vitamin K 10. Encephalopathy. 11. Nausea and vomiting, chronically since last surgery with gallbladder. GI bleed 12. Recent Pancreatitis, status post laparoscopic cholecystectomy on 09/14/2019. 13. 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 Currently well healed. 14. Diabetes. 15. Hypertension. 16. Bipolar disorder. 17. Possible gastrointestinal bleed. 18. Intolerance to Daptomycin with nausea, tolerated it twice for weeks in the past Last year. Gram-positive bacteremia 1 out of 4 bottles present on admission source likely GI Plan: Plan of Care Continue meropenem renal dose Continue linezolid 10/30 Status post one dose of daptomycin 10/29 Follow-up GPC in blood culture Follow-up repeat blood culture from 11/01/2011 Pulmonary ,hematology GI team following Monitor labs Continue supportive care. Critically ill Discussed with nursing staff. KYLAH DOUGLASS MD Nov 01, 2019 07:43
[2019-11-01 07:46] LABS: FIO2 ABG 30%
[2019-11-01] MEDS: IV DEXTROSE 5 %-0.45 % NACL 1,000 ML IV SCH ×3 (08:06→12:40)
[2019-11-01] MEDS ORDERED: POTASSIUM PHOS,M-BASIC-D-BASIC 13.6 MMOL in IV NORMAL SALINE 250ML 250 ML IV ONE ×2 (09:00→13:00)
--- NOTE | 2019-11-01 09:20 | PDOC ---
PULMONARY PROGRESS NOTES Subjective Patient sedated and on assist control ventilation uneventful evening Vitals Vital Signs Date Time Temp Pulse Resp B/P (MAP) Pulse Ox O2 Delivery O2 Flow Rate FiO2 11/01/19 07:29 100 Ventilator 11/01/19 07:00 106 18 107/77 (87) 11/01/19 04:00 99.8 99.8 11/01/19 00:39 15.0 Lungs: Crackles Cardiovascular: S1 Abdomen: Soft, Other Extremities: No Edema Skin: Warm Labs Laboratory Tests Test 10/30/19 10:17 10/30/19 10:28 10/30/19 10:45 10/30/19 11:35 White Blood Count 11.0 x10^3/uL (4.0-11.0) Red Blood Count 5.37 x10^6/uL (4.30-5.70) Hemoglobin 12.5 g/dL (13.0-17.5) Hematocrit 40.2 % (39.0-53.0) Mean Corpuscular Volume 75 fL (79-100) Mean Corpuscular Hemoglobin 23 pg (25-35) Mean Corpuscular Hemoglobin Concent 31 g/dL (31-37) Red Cell Distribution Width 21.2 % (11.5-14.5) Platelet Count 314 x10^3/uL (140-400) Neutrophils (%) (Auto) 84 % (31-73) Lymphocytes (%) (Auto) 11 % (24-48) Monocytes (%) (Auto) 5 % (0-9) Eosinophils (%) (Auto) 0 % (0-3) Basophils (%) (Auto) 0 % (0-3) Neutrophils # (Auto) 9.2 x10^3/uL (1.8-7.7) Lymphocytes # (Auto) 1.2 x10^3/uL (1.0-4.8) Monocytes # (Auto) 0.6 x10^3/uL (0.0-1.1) Eosinophils # (Auto) 0.0 x10^3/uL (0.0-0.7) Basophils # (Auto) 0.0 x10^3/uL (0.0-0.2) Platelet Estimate Adequate (ADEQUATE) Anisocytosis Slight Microcytosis Slight Sodium Level 137 mmol/L (136-145) Potassium Level 2.3 mmol/L (3.5-5.1) Chloride Level 90 mmol/L (98-107) Carbon Dioxide Level 13 mmol/L (21-32) Anion Gap 34 (6-14) Blood Urea Nitrogen 37 mg/dL (8-26) Creatinine 3.0 mg/dL (0.7-1.3) Estimated GFR (Cockcroft-Gault) 22.3 BUN/Creatinine Ratio 12 (6-20) Glucose Level 545 mg/dL (70-99) Lactic Acid Level 12.4 mmol/L (0.4-2.0) Calcium Level 8.6 mg/dL (8.5-10.1) Magnesium Level 2.4 mg/dL (1.8-2.4) Total Bilirubin 0.8 mg/dL (0.2-1.0) Aspartate Amino Transf (AST/SGOT) 47 U/L (15-37) Alanine Aminotransferase (ALT/SGPT) 38 U/L (16-63) Alkaline Phosphatase 311 U/L (46-116) Troponin I Quantitative 0.130 ng/mL (0.000-0.055) SU-Emi-N-Type Natriuretic Peptide 39149 pg/mL (0-124) Total Protein 6.3 g/dL (6.4-8.2) Albumin 2.2 g/dL (3.4-5.0) Albumin/Globulin Ratio 0.5 (1.0-1.7) Lipase 173 U/L (73-393) Coronavirus (PCR) Not detected (Not Detected) Urine Collection Type U cath Urine Color Yolanda Urine Clarity Clear Urine pH (<5.0-8.0) Urine Specific [place] (1.000-1.030) Urine Protein mg/dL (NEG-TRACE) Urine Glucose (UA) mg/dL (NEG) Urine Ketones (Stick) mg/dL (NEG) Urine Blood (NEG) Urine Nitrite (NEG) Urine Bilirubin (NEG) Urine Urobilinogen Dipstick mg/dL (0.2 mg/dL) Urine Leukocyte Esterase (NEG) Urine RBC 6-10 /HPF (0-2) Urine WBC 11-20 /HPF (0-4) Urine Squamous Epithelial Cells Occ /LPF Urine Amorphous Sediment Present /HPF Urine Bacteria 0 /HPF (0-FEW) Urine Hyaline Casts Few /HPF Urine Mucus Slight /LPF Acetone Level Sm pos (NEG) O2 Saturation 99 % (92-99) Arterial Blood pH 7.36 (7.35-7.45) Arterial Blood pCO2 at Patient Temp 24 mmHg (35-46) Arterial Blood pO2 at Patient Temp 324 mmHg (75-108) Arterial Blood HCO3 14 mmol/L (21-28) Arterial Blood Base Excess -10 mmol/L (-3-3) FiO2 60% vent Test 10/30/19 11:50 10/30/19 13:46 10/30/19 14:08 10/30/19 14:50 Prothrombin Time 49.5 SEC (11.7-14.0) Prothromb Time International Ratio 5.3 (0.8-1.1) Activated Partial Thromboplast Time 42 SEC (24-38) Glucose (Fingerstick) 429 mg/dL (70-99) 376 mg/dL (70-99) Lactic Acid Level 5.8 mmol/L (0.4-2.0) Test 10/30/19 15:56 10/30/19 17:00 10/30/19 18:15 10/30/19 18:25 Glucose (Fingerstick) 303 mg/dL (70-99) 254 mg/dL (70-99) 74 mg/dL (70-99) Sodium Level 144 mmol/L (136-145) Potassium Level 2.2 mmol/L (3.5-5.1) Chloride Level 105 mmol/L (98-107) Carbon Dioxide Level 23 mmol/L (21-32) Anion Gap 16 (6-14) Blood Urea Nitrogen 34 mg/dL (8-26) Creatinine 1.9 mg/dL (0.7-1.3) Estimated GFR (Cockcroft-Gault) 37.7 Glucose Level 77 mg/dL (70-99) Calcium Level 7.8 mg/dL (8.5-10.1) Phosphorus Level 1.4 mg/dL (2.6-4.7) Magnesium Level 2.1 mg/dL (1.8-2.4) Test 10/30/19 20:12 10/30/19 21:19 10/30/19 22:24 10/30/19 23:32 Glucose (Fingerstick) 258 mg/dL (70-99) 158 mg/dL (70-99) 174 mg/dL (70-99) 177 mg/dL (70-99) Test 10/31/19 00:45 10/31/19 01:59 10/31/19 02:00 10/31/19 02:22 Glucose (Fingerstick) 141 mg/dL (70-99) 58 mg/dL (70-99) 47 mg/dL (70-99) Prothrombin Time 41.4 SEC (11.7-14.0) Prothromb Time International Ratio 4.2 (0.8-1.1) Activated Partial Thromboplast Time 56 SEC (24-38) Fibrinogen 431 mg/dL (200-440) D-Dimer (Enedelia) 0.93 ug/mlFEU (0.00-0.50) Sodium Level 146 mmol/L (136-145) Potassium Level 3.4 mmol/L (3.5-5.1) Chloride Level 110 mmol/L (98-107) Carbon Dioxide Level 20 mmol/L (21-32) Anion Gap 16 (6-14) Blood Urea Nitrogen 30 mg/dL (8-26) Creatinine 1.6 mg/dL (0.7-1.3) Estimated GFR (Cockcroft-Gault) 46.0 Glucose Level 35 mg/dL (70-99) Calcium Level 7.0 mg/dL (8.5-10.1) Phosphorus Level 2.6 mg/dL (2.6-4.7) Magnesium Level 1.9 mg/dL (1.8-2.4) Test 10/31/19 02:43 10/31/19 03:48 10/31/19 04:56 10/31/19 06:00 Glucose (Fingerstick) 115 mg/dL (70-99) 129 mg/dL (70-99) 157 mg/dL (70-99) White Blood Count 7.1 x10^3/uL (4.0-11.0) Red Blood Count 4.74 x10^6/uL (4.30-5.70) Hemoglobin 11.2 g/dL (13.0-17.5) Hematocrit 34.3 % (39.0-53.0) Mean Corpuscular Volume 73 fL (79-100) Mean Corpuscular Hemoglobin 24 pg (25-35) Mean Corpuscular Hemoglobin Concent 33 g/dL (31-37) Red Cell Distribution Width 22.0 % (11.5-14.5) Platelet Count 219 x10^3/uL (140-400) Neutrophils (%) (Auto) 73 % (31-73) Lymphocytes (%) (Auto) 21 % (24-48) Monocytes (%) (Auto) 7 % (0-9) Eosinophils (%) (Auto) 0 % (0-3) Basophils (%) (Auto) 0 % (0-3) Neutrophils # (Auto) 5.2 x10^3/uL (1.8-7.7) Lymphocytes # (Auto) 1.5 x10^3/uL (1.0-4.8) Monocytes # (Auto) 0.5 x10^3/uL (0.0-1.1) Eosinophils # (Auto) 0.0 x10^3/uL (0.0-0.7) Basophils # (Auto) 0.0 x10^3/uL (0.0-0.2) Sodium Level 141 mmol/L (136-145) Potassium Level 3.9 mmol/L (3.5-5.1) Chloride Level 104 mmol/L (98-107) Carbon Dioxide Level 18 mmol/L (21-32) Anion Gap 19 (6-14) Blood Urea Nitrogen 31 mg/dL (8-26) Creatinine 1.6 mg/dL (0.7-1.3) Estimated GFR (Cockcroft-Gault) 46.0 Glucose Level 307 mg/dL (70-99) Calcium Level 7.0 mg/dL (8.5-10.1) Phosphorus Level 3.5 mg/dL (2.6-4.7) Magnesium Level 1.9 mg/dL (1.8-2.4) Test 10/31/19 06:04 10/31/19 07:42 10/31/19 08:00 10/31/19 09:18 Glucose (Fingerstick) 291 mg/dL (70-99) 216 mg/dL (70-99) 298 mg/dL (70-99) O2 Saturation 99 % (92-99) Arterial Blood pH 7.52 (7.35-7.45) Arterial Blood pH (Temp corrected) 7.50 Arterial Blood pCO2 at Patient Temp 22 mmHg (35-46) Arterial Blood pCO2 (Temp correct) 22 mmHg Arterial Blood pO2 at Patient Temp 200 mmHg (75-108) Arterial Blood pO2 (Temp corrected) 204 mmHg Arterial Blood HCO3 17 mmol/L (21-28) Arterial Blood Base Excess -4 mmol/L (-3-3) FiO2 40 vent Test 10/31/19 10:05 10/31/19 10:07 10/31/19 12:09 10/31/19 14:04 Sodium Level 143 mmol/L (136-145) Potassium Level 3.3 mmol/L (3.5-5.1) Chloride Level 108 mmol/L (98-107) Carbon Dioxide Level 20 mmol/L (21-32) Anion Gap 15 (6-14) Blood Urea Nitrogen 28 mg/dL (8-26) Creatinine 1.7 mg/dL (0.7-1.3) Estimated GFR (Cockcroft-Gault) 42.9 Glucose Level 290 mg/dL (70-99) Calcium Level 7.0 mg/dL (8.5-10.1) Phosphorus Level 1.8 mg/dL (2.6-4.7) Magnesium Level 1.8 mg/dL (1.8-2.4) Glucose (Fingerstick) 255 mg/dL (70-99) 123 mg/dL (70-99) 109 mg/dL (70-99) Test 10/31/19 15:39 10/31/19 15:40 10/31/19 18:22 10/31/19 19:55 Glucose (Fingerstick) 279 mg/dL (70-99) 248 mg/dL (70-99) 144 mg/dL (70-99) Sodium Level 142 mmol/L (136-145) Potassium Level 3.5 mmol/L (3.5-5.1) Chloride Level 108 mmol/L (98-107) Carbon Dioxide Level 21 mmol/L (21-32) Anion Gap 13 (6-14) Blood Urea Nitrogen 22 mg/dL (8-26) Creatinine 1.4 mg/dL (0.7-1.3) Estimated GFR (Cockcroft-Gault) 53.6 Glucose Level 311 mg/dL (70-99) Calcium Level 6.5 mg/dL (8.5-10.1) Phosphorus Level 3.8 mg/dL (2.6-4.7) Magnesium Level 1.6 mg/dL (1.8-2.4) Test 10/31/19 21:15 10/31/19 21:21 10/31/19 22:54 11/01/19 00:13 Sodium Level 145 mmol/L (136-145) Potassium Level 3.0 mmol/L (3.5-5.1) Chloride Level 110 mmol/L (98-107) Carbon Dioxide Level 20 mmol/L (21-32) Anion Gap 15 (6-14) Blood Urea Nitrogen 21 mg/dL (8-26) Creatinine 1.4 mg/dL (0.7-1.3) Estimated GFR (Cockcroft-Gault) 53.6 Glucose Level 102 mg/dL (70-99) Calcium Level 6.9 mg/dL (8.5-10.1) Phosphorus Level 2.6 mg/dL (2.6-4.7) Magnesium Level 2.5 mg/dL (1.8-2.4) Glucose (Fingerstick) 101 mg/dL (70-99) 156 mg/dL (70-99) 133 mg/dL (70-99) Test 11/01/19 01:25 11/01/19 01:30 11/01/19 02:38 11/01/19 04:41 Glucose (Fingerstick) 142 mg/dL (70-99) 143 mg/dL (70-99) 115 mg/dL (70-99) Sodium Level 143 mmol/L (136-145) Potassium Level 3.9 mmol/L (3.5-5.1) Chloride Level 110 mmol/L (98-107) Carbon Dioxide Level 23 mmol/L (21-32) Anion Gap 10 (6-14) Blood Urea Nitrogen 19 mg/dL (8-26) Creatinine 1.4 mg/dL (0.7-1.3) Estimated GFR (Cockcroft-Gault) 53.6 Glucose Level 147 mg/dL (70-99) Calcium Level 6.3 mg/dL (8.5-10.1) Phosphorus Level 2.3 mg/dL (2.6-4.7) Magnesium Level 2.1 mg/dL (1.8-2.4) Test 11/01/19 06:00 11/01/19 06:03 11/01/19 07:35 11/01/19 08:17 Prothrombin Time 16.7 SEC (11.7-14.0) Prothromb Time International Ratio 1.4 (0.8-1.1) Sodium Level 144 mmol/L (136-145) Potassium Level 4.4 mmol/L (3.5-5.1) Chloride Level 111 mmol/L (98-107) Carbon Dioxide Level 21 mmol/L (21-32) Anion Gap 12 (6-14) Blood Urea Nitrogen 17 mg/dL (8-26) Creatinine 1.2 mg/dL (0.7-1.3) Estimated GFR (Cockcroft-Gault) 64.1 Glucose Level 103 mg/dL (70-99) Calcium Level 6.2 mg/dL (8.5-10.1) Phosphorus Level 2.7 mg/dL (2.6-4.7) Magnesium Level 1.9 mg/dL (1.8-2.4) Glucose (Fingerstick) 92 mg/dL (70-99) 173 mg/dL (70-99) O2 Saturation 98 % (92-99) Arterial Blood pH 7.47 (7.35-7.45) Arterial Blood pCO2 at Patient Temp 25 mmHg (35-46) Arterial Blood pO2 at Patient Temp 138 mmHg (75-108) Arterial Blood HCO3 18 mmol/L (21-28) Arterial Blood Base Excess -5 mmol/L (-3-3) FiO2 30% Laboratory Tests Test 10/31/19 10:05 10/31/19 10:07 10/31/19 12:09 10/31/19 14:04 Sodium Level 143 mmol/L (136-145) Potassium Level 3.3 mmol/L (3.5-5.1) Chloride Level 108 mmol/L (98-107) Carbon Dioxide Level 20 mmol/L (21-32) Anion Gap 15 (6-14) Blood Urea Nitrogen 28 mg/dL (8-26) Creatinine 1.7 mg/dL (0.7-1.3) Estimated GFR (Cockcroft-Gault) 42.9 Glucose Level 290 mg/dL (70-99) Calcium Level 7.0 mg/dL (8.5-10.1) Phosphorus Level 1.8 mg/dL (2.6-4.7) Magnesium Level 1.8 mg/dL (1.8-2.4) Glucose (Fingerstick) 255 mg/dL (70-99) 123 mg/dL (70-99) 109 mg/dL (70-99) Test 10/31/19 15:39 10/31/19 15:40 10/31/19 18:22 10/31/19 19:55 Glucose (Fingerstick) 279 mg/dL (70-99) 248 mg/dL (70-99) 144 mg/dL (70-99) Sodium Level 142 mmol/L (136-145) Potassium Level 3.5 mmol/L (3.5-5.1) Chloride Level 108 mmol/L (98-107) Carbon Dioxide Level 21 mmol/L (21-32) Anion Gap 13 (6-14) Blood Urea Nitrogen 22 mg/dL (8-26) Creatinine 1.4 mg/dL (0.7-1.3) Estimated GFR (Cockcroft-Gault) 53.6 Glucose Level 311 mg/dL (70-99) Calcium Level 6.5 mg/dL (8.5-10.1) Phosphorus Level 3.8 mg/dL (2.6-4.7) Magnesium Level 1.6 mg/dL (1.8-2.4) Test 10/31/19 21:15 10/31/19 21:21 10/31/19 22:54 11/01/19 00:13 Sodium Level 145 mmol/L (136-145) Potassium Level 3.0 mmol/L (3.5-5.1) Chloride Level 110 mmol/L (98-107) Carbon Dioxide Level 20 mmol/L (21-32) Anion Gap 15 (6-14) Blood Urea Nitrogen 21 mg/dL (8-26) Creatinine 1.4 mg/dL (0.7-1.3) Estimated GFR (Cockcroft-Gault) 53.6 Glucose Level 102 mg/dL (70-99) Calcium Level 6.9 mg/dL (8.5-10.1) Phosphorus Level 2.6 mg/dL (2.6-4.7) Magnesium Level 2.5 mg/dL (1.8-2.4) Glucose (Fingerstick) 101 mg/dL (70-99) 156 mg/dL (70-99) 133 mg/dL (70-99) Test 11/01/19 01:25 11/01/19 01:30 11/01/19 02:38 11/01/19 04:41 Glucose (Fingerstick) 142 mg/dL (70-99) 143 mg/dL (70-99) 115 mg/dL (70-99) Sodium Level 143 mmol/L (136-145) Potassium Level 3.9 mmol/L (3.5-5.1) Chloride Level 110 mmol/L (98-107) Carbon Dioxide Level 23 mmol/L (21-32) Anion Gap 10 (6-14) Blood Urea Nitrogen 19 mg/dL (8-26) Creatinine 1.4 mg/dL (0.7-1.3) Estimated GFR (Cockcroft-Gault) 53.6 Glucose Level 147 mg/dL (70-99) Calcium Level 6.3 mg/dL (8.5-10.1) Phosphorus Level 2.3 mg/dL (2.6-4.7) Magnesium Level 2.1 mg/dL (1.8-2.4) Test 11/01/19 06:00 11/01/19 06:03 11/01/19 07:35 11/01/19 08:17 Prothrombin Time 16.7 SEC (11.7-14.0) Prothromb Time International Ratio 1.4 (0.8-1.1) Sodium Level 144 mmol/L (136-145) Potassium Level 4.4 mmol/L (3.5-5.1) Chloride Level 111 mmol/L (98-107) Carbon Dioxide Level 21 mmol/L (21-32) Anion Gap 12 (6-14) Blood Urea Nitrogen 17 mg/dL (8-26) Creatinine 1.2 mg/dL (0.7-1.3) Estimated GFR (Cockcroft-Gault) 64.1 Glucose Level 103 mg/dL (70-99) Calcium Level 6.2 mg/dL (8.5-10.1) Phosphorus Level 2.7 mg/dL (2.6-4.7) Magnesium Level 1.9 mg/dL (1.8-2.4) Glucose (Fingerstick) 92 mg/dL (70-99) 173 mg/dL (70-99) O2 Saturation 98 % (92-99) Arterial Blood pH 7.47 (7.35-7.45) Arterial Blood pCO2 at Patient Temp 25 mmHg (35-46) Arterial Blood pO2 at Patient Temp 138 mmHg (75-108) Arterial Blood HCO3 18 mmol/L (21-28) Arterial Blood Base Excess -5 mmol/L (-3-3) FiO2 30% Medications Active Scripts Medications Dose Route/Sig Max Daily Dose Days Date Category Dose Instructions Humalog (Insulin Lispro) 100 Unit/1 Ml Insuln.pen 0 Units SQ QIDACHS 14 09/16/19 Rx Culturelle (Lactobacillus Rhamnosus Gg) 1 Each Cap.sprink 1 Cap PO BID 30 09/16/19 Rx Pantoprazole Sodium (Pantoprazole Sodium) 40 Mg Tablet.dr 40 Mg PO DAILYAC 09/16/19 Rx Dok (Docusate Sodium) 100 Mg Capsule 100 Mg PO PRN BID PRN 30 09/16/19 Rx Klor-Con M20 (Potassium Chloride) 20 Meq Tab.er.prt 20 Meq PO DAILYWBKFT 09/16/19 Rx Proair Hfa (Albuterol Sulfate) 8.5 Gm Hfa.aer.ad 2.5 Mg NEB PRN Q4HRS PRN 14 09/16/19 Rx Clindamycin Hcl 300 Mg Capsule 600 Mg PO BID 09/11/19 Reported Lidocaine PATCH (Lidocaine) 1 Each Adh..patch 1 Each TP DAILY 03/12/19 Reported REMOVE AFTER 12 HOURS Lisinopril 5 Mg Tablet 1 Tab PO DAILY PRN 03/12/19 Reported Clonazepam 1 Mg Tablet 1 Mg PO BID 03/12/[address] [place] Carbonate 300 Mg Tablet 1 Tab PO BID 08/08/18 Reported Zanaflex (Tizanidine Hcl) 4 Mg Capsule 1 Cap PO TID PRN 08/25/15 Reported Janumet 50-1,000 Mg Tablet (Sitagliptin Phos/Metformin Hcl) 1 Each Tablet 1 Tab PO BID 01/17/15 Reported Doxepin Hcl 50 Mg Capsule 300 Mg PO HS 01/17/15 Reported Impression . IMPRESSION: 1. Acute hypoxemic respiratory failure secondary to acute metabolic acidosis. 2. Diabetic ketoacidosis. 3. Septic shock. 4. Bacteremia, gram-positive cocci, 1/3 bottles. 5. Recent laparoscopic cholecystectomy. 6. Acute on chronic kidney injury. 7. COVID-19, suspect. 8. Tobacco dependent. 9. Chronic obstructive pulmonary disease, unknown FEV1. 10. Small left-sided pneumo 11. New pseudocyst fluid collection, seen on CT abdomen, per GI. CT abdomen pelvis IMPRESSION: 1. Small moderate left pneumothorax, incompletely evaluated. 2. Interval development of a 6.3 cm pseudocyst along the pancreatic body. 3. Another 6 cm fluid collection along the medial aspect of the hepatic caudate lobe also likely reflects a pseudocyst. 4. Right colonic wall thickening. Correlate for colitis. 5. A rim calcified 10 mm mass along the left kidney medially may be a complicated cyst but is indeterminate. Sonographic follow-up could be performed in 6 months. Plan . Spoke with mother at the bedside ABG adequately compensated Patient clinically not ready for spontaneous breathing trial Follow GI input IV antibiotics Monitor blood sugars IV levo fed Monitor H&H No need to place chest tube at this time for pneumothorax, chest x-ray shows no pneumothorax Total cumulative critical care time of 30 minutes, reviewing data, chest x-ray, labs, formulating a plan The above was discussed with the mother at the bedside, she indicated that the patient has been sick at home for quite a long time, refused to come in for any assistance KUNAL MAYORGA MD Nov 01, 2019 09:20
[2019-11-01] MEDS: MIDAZOLAM 100mg/100ml NS BAG 100 ML IV PRN ×3 (10:10→20:00)
[2019-11-01 10:22] LABS: BASO % 0 % (0-3); EOS # 0.1 x10^3/uL (0.0-0.7); EOS % 1 % (0-3); HEMATOCRIT 29.4 % (39.0-53.0); HEMOGLOBIN 9.7 g/dL (13.0-17.5); LYMPH # 2.5 x10^3/uL (1.0-4.8); LYMPH % 39 % (24-48); MEAN CORPUSCULAR HEMOGLOBIN 25 pg (25-35); MEAN CORPUSCULAR HGB CONC 33 g/dL (31-37); MEAN CORPUSCULAR VOLUME 75 fL (79-100); MONO # 0.3 x10^3/uL (0.0-1.1); MONO % 5 % (0-9); NEUT # 3.4 x10^3/uL (1.8-7.7); NEUT % 54 % (31-73); PLATELET COUNT 144 x10^3/uL (140-400); RED BLOOD COUNT 3.94 x10^6/uL (4.30-5.70); RED CELL DISTRIBUTION WIDTH 22.3 % (11.5-14.5); WHITE BLOOD COUNT 6.3 x10^3/uL (4.0-11.0)
--- NOTE | 2019-11-01 10:35 | PDOC ---
Objective: Objective: D/w nurse - 500cc from yesterday, another 200 overnight - dark yesterday, now red. Says sick for a long while at home, couldn't be convinced to come to hospital. No stools/hematochezia/melena. Vital Signs: Vital Signs Date Time Temp Pulse Resp B/P (MAP) Pulse Ox O2 Delivery O2 Flow Rate FiO2 11/01/19 09:00 112 18 118/73 (88) 100 Ventilator 11/01/19 08:00 99.8 99.8 11/01/19 00:39 15.0 Labs: Laboratory Tests Test 10/31/19 12:09 10/31/19 14:04 10/31/19 15:39 10/31/19 15:40 Glucose (Fingerstick) 123 mg/dL 109 mg/dL 279 mg/dL Sodium Level 142 mmol/L Potassium Level 3.5 mmol/L Chloride Level 108 mmol/L Carbon Dioxide Level 21 mmol/L Anion Gap 13 Blood Urea Nitrogen 22 mg/dL Creatinine 1.4 mg/dL Estimated GFR (Cockcroft-Gault) 53.6 Glucose Level 311 mg/dL Calcium Level 6.5 mg/dL Phosphorus Level 3.8 mg/dL Magnesium Level 1.6 mg/dL Test 10/31/19 18:22 10/31/19 19:55 10/31/19 21:15 10/31/19 21:21 Glucose (Fingerstick) 248 mg/dL 144 mg/dL 101 mg/dL Sodium Level 145 mmol/L Potassium Level 3.0 mmol/L Chloride Level 110 mmol/L Carbon Dioxide Level 20 mmol/L Anion Gap 15 Blood Urea Nitrogen 21 mg/dL Creatinine 1.4 mg/dL Estimated GFR (Cockcroft-Gault) 53.6 Glucose Level 102 mg/dL Calcium Level 6.9 mg/dL Phosphorus Level 2.6 mg/dL Magnesium Level 2.5 mg/dL Test 10/31/19 22:54 11/01/19 00:13 11/01/19 01:25 11/01/19 01:30 Glucose (Fingerstick) 156 mg/dL 133 mg/dL 142 mg/dL Sodium Level 143 mmol/L Potassium Level 3.9 mmol/L Chloride Level 110 mmol/L Carbon Dioxide Level 23 mmol/L Anion Gap 10 Blood Urea Nitrogen 19 mg/dL Creatinine 1.4 mg/dL Estimated GFR (Cockcroft-Gault) 53.6 Glucose Level 147 mg/dL Calcium Level 6.3 mg/dL Phosphorus Level 2.3 mg/dL Magnesium Level 2.1 mg/dL Test 11/01/19 02:38 11/01/19 04:41 11/01/19 05:00 11/01/19 06:00 Glucose (Fingerstick) 143 mg/dL 115 mg/dL White Blood Count 6.3 x10^3/uL Red Blood Count 3.94 x10^6/uL Hemoglobin 9.7 g/dL Hematocrit 29.4 % Mean Corpuscular Volume 75 fL Mean Corpuscular Hemoglobin 25 pg Mean Corpuscular Hemoglobin Concent 33 g/dL Red Cell Distribution Width 22.3 % Platelet Count 144 x10^3/uL Neutrophils (%) (Auto) 54 % Lymphocytes (%) (Auto) 39 % Monocytes (%) (Auto) 5 % Eosinophils (%) (Auto) 1 % Basophils (%) (Auto) 0 % Neutrophils # (Auto) 3.4 x10^3/uL Lymphocytes # (Auto) 2.5 x10^3/uL Monocytes # (Auto) 0.3 x10^3/uL Eosinophils # (Auto) 0.1 x10^3/uL Basophils # (Auto) 0.0 x10^3/uL Prothrombin Time 16.7 SEC Prothromb Time International Ratio 1.4 Sodium Level 144 mmol/L Potassium Level 4.4 mmol/L Chloride Level 111 mmol/L Carbon Dioxide Level 21 mmol/L Anion Gap 12 Blood Urea Nitrogen 17 mg/dL Creatinine 1.2 mg/dL Estimated GFR (Cockcroft-Gault) 64.1 Glucose Level 103 mg/dL Calcium Level 6.2 mg/dL Phosphorus Level 2.7 mg/dL Magnesium Level 1.9 mg/dL Test 11/01/19 06:03 11/01/19 07:35 11/01/19 08:17 11/01/19 09:49 Glucose (Fingerstick) 92 mg/dL 173 mg/dL 284 mg/dL O2 Saturation 98 % Arterial Blood pH 7.47 Arterial Blood pCO2 at Patient Temp 25 mmHg Arterial Blood pO2 at Patient Temp 138 mmHg Arterial Blood HCO3 18 mmol/L Arterial Blood Base Excess -5 mmol/L FiO2 30% Imaging: CT A/P 10/30 IMPRESSION: 1. Small moderate left pneumothorax, incompletely evaluated. 2. Interval development of a 6.3 cm pseudocyst along the pancreatic body. 3. Another 6 cm fluid collection along the medial aspect of the hepatic caudate lobe also likely reflects a pseudocyst. 4. Right colonic wall thickening. Correlate for colitis. 5. A rim calcified 10 mm mass along the left kidney medially may be a complicated cyst but is indeterminate. Sonographic follow-up could be performed in 6 months. CXR 10/31 IMPRESSION: Stable lines and tubes with slightly lower lung volumes are otherwise no acute cardiopulmonary process. No pneumothorax shown on this exam. PE: GEN: intuabted LUNGS: vent, diminished HEART: tachycardic ABD: soft - NGT now reddish NEURO/PSYCH: sedated A/P: Resp failure, GPC bacteremia, DM Recent gallstone pancreatitis and cholecystectomy, no w/ pseudocyst/fluid collection Blood in OGT - chronic ACD, Hgb drifting but not below baseline Coagulopathy - much better COVID-19 negative 10/30 -- Continue PPI, monitor OG output and Hgb. Will review w/ Dr. Marrero. Justicifation of Admission Dx: Justifications for Admission: Justification of Admission Dx: Yes Comminuty Aquired Pneumonia: Hemodynamic Instability Acute Renal Failure: RF Can't Be Managed Outpt Sepsis: Altered Mental Status DKA: DKA ADAN PEREZ Nov 01, 2019 10:35
[2019-11-01 11:43] LABS: CALCIUM 6.1 mg/dL (8.5-10.1); CREATININE 1.2 mg/dL (0.7-1.3); GFR 64.1; MAGNESIUM 1.8 mg/dL (1.8-2.4); PHOSPHORUS 2.4 mg/dL (2.6-4.7)
[2019-11-01] MEDS: TPN PER PHARMACY MC PRN (12:02)
--- NOTE | 2019-11-01 12:09 | NUR ---
Pharmacy TPN Dosing Note S: FLORECITAYVONNEFLORECITAANASTACIA is a 49 year old M Currently receiving Central Continuous TPN started 11/01/19 B:Pertinent PMH: NPO, critical illness Height: 5 feet, 7 inches Weight: 71.0 kg Current diet: NPO LABS: Sodium: 141 Potassium: 4 Chloride: 110 Calcium: 6.1 Corrected Calcium: 7.54 Magnesium: 1.8 CO2: 17 SCr: 1.2 Glucose: 92-284 Albumin: 2.2 AST: 47 ALT: 38 TPN FORMULA: TPN TYPE: Central Continuous AMINO ACIDS: 75 gm DEXTROSE: 225 gm LIPIDS: 20 gm SODIUM ACETATE: 90 mEq POTASSIUM CHLORIDE: 50 mEq POTASSIUM PHOSPHATE: 13.6 mmol MAGNESIUM: 10 mEq CALCIUM: 10 mEq MULTIPLE VITAMIN: 10 ml TRACE ELEMENTS: 1 ml(s) TPN PLAN: Initiate TPN with macros per ground support equipment fitter rec's. Standard electrolytes except sodium as acetate salt form. Labs in AM. R: Begin TPN Will monitor electrolytes, glucose, and tolerance to TPN. Adamaris Watters RPH, 11/01/19 1210
--- NOTE | 2019-11-01 13:28 | PDOC ---
[facility] PROGRESS NOTE Chief Complaint Chief Complaint Sepsis respiratory failure DKA History of Present Illness History of Present Illness 11/01/2019 Patient seen and examined in ICU He is on the ventilator AC 18/500/30% FiO2, PEEP 5.3 Strange BSD NG tube intermittent suction He is also on IV Levophed and remains critically ill Discussed with RN and patient's mother Chart reviewed Vitals/I&O Vitals/I&O: Vital Signs Date Time Temp Pulse Resp B/P (MAP) Pulse Ox O2 Delivery O2 Flow Rate FiO2 11/01/19 12:00 100.7 114 18 104/76 (85) 100 Ventilator 100.7 11/01/19 00:39 15.0 I & O 10/31/19 10/31/19 11/01/19 15:00 23:00 07:00 Intake Total 806 ml 3676 ml 2844 ml Output Total 885 ml 1100 ml 1250 ml Balance -79 ml 2576 ml 1594 ml Physical Exam Physical Exam: GENERAL: Intubated, sedated. HEENT: Normocephalic, atraumatic, NGT and ETT with bloodstained drainage NECK: Supple, no JVD, no lymphadenopathy, no thyromegaly. LUNGS: Decreased breath sounds at the bases, otherwise, clear. HEART: S1, S2, tachycardia. No murmurs. ABDOMEN: Soft, nontender, bowel sounds present. EXTREMITIES: No cyanosis, no clubbing, no edema. Negative Netsor's sign. MUSCULOSKELETAL: Previous left knee surgery. Incision scar intact. No effusion. No surrounding erythema, no fluctuance. Nestor's negative. DERMATOLOGIC: Warm, dry. No generalized rash. NEUROLOGIC: Sedated. PSYCHIATRIC: Sedated. LINES: Left central line looks clean. PIV looks clean. General: Other (Intubated and sedated) Heart: Other (slightly tachycardic ) Lungs: Crackles Abdomen: Normal bowel sounds, Soft Extremities: No clubbing Skin: No rashes Labs Labs: Laboratory Tests Test 10/31/19 14:04 10/31/19 15:39 10/31/19 15:40 10/31/19 18:22 Glucose (Fingerstick) 109 mg/dL (70-99) 279 mg/dL (70-99) 248 mg/dL (70-99) Sodium Level 142 mmol/L (136-145) Potassium Level 3.5 mmol/L (3.5-5.1) Chloride Level 108 mmol/L (98-107) Carbon Dioxide Level 21 mmol/L (21-32) Anion Gap 13 (6-14) Blood Urea Nitrogen 22 mg/dL (8-26) Creatinine 1.4 mg/dL (0.7-1.3) Estimated GFR (Cockcroft-Gault) 53.6 Glucose Level 311 mg/dL (70-99) Calcium Level 6.5 mg/dL (8.5-10.1) Phosphorus Level 3.8 mg/dL (2.6-4.7) Magnesium Level 1.6 mg/dL (1.8-2.4) Test 10/31/19 19:55 10/31/19 21:15 10/31/19 21:21 10/31/19 22:54 Glucose (Fingerstick) 144 mg/dL (70-99) 101 mg/dL (70-99) 156 mg/dL (70-99) Sodium Level 145 mmol/L (136-145) Potassium Level 3.0 mmol/L (3.5-5.1) Chloride Level 110 mmol/L (98-107) Carbon Dioxide Level 20 mmol/L (21-32) Anion Gap 15 (6-14) Blood Urea Nitrogen 21 mg/dL (8-26) Creatinine 1.4 mg/dL (0.7-1.3) Estimated GFR (Cockcroft-Gault) 53.6 Glucose Level 102 mg/dL (70-99) Calcium Level 6.9 mg/dL (8.5-10.1) Phosphorus Level 2.6 mg/dL (2.6-4.7) Magnesium Level 2.5 mg/dL (1.8-2.4) Test 11/01/19 00:13 11/01/19 01:25 11/01/19 01:30 11/01/19 02:38 Glucose (Fingerstick) 133 mg/dL (70-99) 142 mg/dL (70-99) 143 mg/dL (70-99) Sodium Level 143 mmol/L (136-145) Potassium Level 3.9 mmol/L (3.5-5.1) Chloride Level 110 mmol/L (98-107) Carbon Dioxide Level 23 mmol/L (21-32) Anion Gap 10 (6-14) Blood Urea Nitrogen 19 mg/dL (8-26) Creatinine 1.4 mg/dL (0.7-1.3) Estimated GFR (Cockcroft-Gault) 53.6 Glucose Level 147 mg/dL (70-99) Calcium Level 6.3 mg/dL (8.5-10.1) Phosphorus Level 2.3 mg/dL (2.6-4.7) Magnesium Level 2.1 mg/dL (1.8-2.4) Test 11/01/19 04:41 11/01/19 05:00 11/01/19 06:00 11/01/19 06:03 Glucose (Fingerstick) 115 mg/dL (70-99) 92 mg/dL (70-99) White Blood Count 6.3 x10^3/uL (4.0-11.0) Red Blood Count 3.94 x10^6/uL (4.30-5.70) Hemoglobin 9.7 g/dL (13.0-17.5) Hematocrit 29.4 % (39.0-53.0) Mean Corpuscular Volume 75 fL (79-100) Mean Corpuscular Hemoglobin 25 pg (25-35) Mean Corpuscular Hemoglobin Concent 33 g/dL (31-37) Red Cell Distribution Width 22.3 % (11.5-14.5) Platelet Count 144 x10^3/uL (140-400) Neutrophils (%) (Auto) 54 % (31-73) Lymphocytes (%) (Auto) 39 % (24-48) Monocytes (%) (Auto) 5 % (0-9) Eosinophils (%) (Auto) 1 % (0-3) Basophils (%) (Auto) 0 % (0-3) Neutrophils # (Auto) 3.4 x10^3/uL (1.8-7.7) Lymphocytes # (Auto) 2.5 x10^3/uL (1.0-4.8) Monocytes # (Auto) 0.3 x10^3/uL (0.0-1.1) Eosinophils # (Auto) 0.1 x10^3/uL (0.0-0.7) Basophils # (Auto) 0.0 x10^3/uL (0.0-0.2) Prothrombin Time 16.7 SEC (11.7-14.0) Prothromb Time International Ratio 1.4 (0.8-1.1) Sodium Level 144 mmol/L (136-145) Potassium Level 4.4 mmol/L (3.5-5.1) Chloride Level 111 mmol/L (98-107) Carbon Dioxide Level 21 mmol/L (21-32) Anion Gap 12 (6-14) Blood Urea Nitrogen 17 mg/dL (8-26) Creatinine 1.2 mg/dL (0.7-1.3) Estimated GFR (Cockcroft-Gault) 64.1 Glucose Level 103 mg/dL (70-99) Calcium Level 6.2 mg/dL (8.5-10.1) Phosphorus Level 2.7 mg/dL (2.6-4.7) Magnesium Level 1.9 mg/dL (1.8-2.4) Test 11/01/19 07:35 11/01/19 08:17 11/01/19 09:49 11/01/19 11:07 O2 Saturation 98 % (92-99) Arterial Blood pH 7.47 (7.35-7.45) Arterial Blood pCO2 at Patient Temp 25 mmHg (35-46) Arterial Blood pO2 at Patient Temp 138 mmHg (75-108) Arterial Blood HCO3 18 mmol/L (21-28) Arterial Blood Base Excess -5 mmol/L (-3-3) FiO2 30% Glucose (Fingerstick) 173 mg/dL (70-99) 284 mg/dL (70-99) 189 mg/dL (70-99) Test 11/01/19 11:15 11/01/19 12:21 Sodium Level 141 mmol/L (136-145) Potassium Level 4.0 mmol/L (3.5-5.1) Chloride Level 110 mmol/L (98-107) Carbon Dioxide Level 17 mmol/L (21-32) Anion Gap 14 (6-14) Blood Urea Nitrogen 16 mg/dL (8-26) Creatinine 1.2 mg/dL (0.7-1.3) Estimated GFR (Cockcroft-Gault) 64.1 Glucose Level 254 mg/dL (70-99) Calcium Level 6.1 mg/dL (8.5-10.1) Phosphorus Level 2.4 mg/dL (2.6-4.7) Magnesium Level 1.8 mg/dL (1.8-2.4) Glucose (Fingerstick) 142 mg/dL (70-99) Assessment and Plan Assessmemt and Plan Problems Medical Problems: (1) DKA (diabetic ketoacidoses) Status: Acute (2) Hypokalemia Status: Acute (3) Respiratory failure Status: Acute (4) Severe sepsis Status: Acute (5) Suspected 2019-nCoV infection Status: Acute Assessment: Respiratory failure Sepsis DKA Critical hypotension Plan: ICU monitoring Trying to titrate off the Levophed Versed, fentanyl and precedex for sedation IV fluids IV Zyvox D/c DKA protocol Start scheduled insulin with moderate sliding scale Called pharm to start TPN Trend labs Vent weaning Home meds if possible DVT prophylaxis Infectious disease, pulmonary, hematology, and GI are following Consult ortho Full code He remains critically ill Total time 36 minutes Comment Review of Relevant I have reviewed the following items blaze (where applicable) has been applied. Medications: Current Medications Medications (Trade) Dose Ordered Sig/Edilma Route PRN Reason Start Time Stop Time Status Last Admin Dose Admin Pantoprazole Sodium (PROTONIX VIAL for IV PUSH) 40 mg [id number] IVP 10/31/19 18:00 11/01/19 05:52 Linezolid/Dextrose 300 ml @ 300 mls/hr Q12HR IV 10/31/19 14:00 11/01/19 09:00 Piperacillin Sod/ Tazobactam Sod 3.375 gm/Sodium Chloride 50 ml @ 100 mls/hr Q6HRS IV 10/31/19 18:00 10/31/19 18:32 DC 10/31/19 18:06 Acetaminophen (Tylenol Supp) 650 mg PRN Q6HRS PRN NC MILD PAIN / TEMP > 100.3'F 10/31/19 16:00 10/31/19 16:04 Potassium Chloride/Water 100 ml @ 100 mls/hr Q1H IV 10/31/19 18:00 10/31/19 19:59 DC 10/31/19 19:07 Magnesium Sulfate 100 ml @ 25 mls/hr 1X ONCE IV 10/31/19 18:00 10/31/19 21:59 DC 10/31/19 18:07 Meropenem 500 mg/ Sodium Chloride 50 ml @ 100 mls/hr Q6HRS IV 11/01/19 00:00 11/01/19 11:39 Potassium Chloride/Water 100 ml @ 100 mls/hr Q1H IV 10/31/19 22:00 10/31/19 23:59 DC 10/31/19 23:45 Potassium Chloride/Water 100 ml @ 100 mls/hr Q1H IV 11/01/19 02:45 11/01/19 04:44 DC 11/01/19 03:45 Potassium Phosphate 15 mmol/ Sodium Chloride 255 ml @ 62.5 mls/hr 1X ONCE IV 11/01/19 02:45 11/01/19 06:49 DC 11/01/19 02:48 Potassium Phosphate 13.6 mmol/Sodium Chloride 254.5333 ml @ 127.... 1X ONCE IV 11/01/19 09:00 11/01/19 10:59 DC 11/01/19 09:17 Info (Tpn Per Pharmacy) 1 each PRN DAILY PRN MC SEE COMMENTS 11/01/19 11:00 11/01/19 12:02 Potassium Phosphate 13.6 mmol/Sodium Chloride 254.5333 ml @ 127.... 1X ONCE IV 11/01/19 13:00 11/01/19 14:59 11/01/19 13:06 Justicifation of Admission Dx: Justifications for Admission: Justification of Admission Dx: Yes Comminuty Aquired Pneumonia: Hemodynamic Instability Acute Renal Failure: RF Can't Be Managed Outpt Sepsis: Altered Mental Status DKA: DKA VISHAL KATZ III DO Nov 01, 2019 13:27
--- NOTE | 2019-11-01 14:38 | NUR ---
SS following up with discharge planning. SS reviewed pt chart and discussed with pt RN. Pt remains on the vent at this time. COVID19 negative. Pt on IV Zyvox and IV Meropenem. Pt on TPN. SS will continue to follow for discharge planning.
[2019-11-01] MEDS: INSULIN REGULAR VIAL 100 UNIT in IV NORMAL SALINE 100ML 100 ML IV PRN (14:58)
[2019-11-01] MEDS: ACETAMINOPHEN 650 MG SUPP.RECT. PR PRN (16:09)
[2019-11-01 17:12] LABS: CALCIUM 6.1 mg/dL (8.5-10.1); CREATININE 1.1 mg/dL (0.7-1.3); GFR 70.9; MAGNESIUM 1.6 mg/dL (1.8-2.4); PHOSPHORUS 2.9 mg/dL (2.6-4.7); POTASSIUM 4.2 mmol/L (3.5-5.1)
[2019-11-01] MEDS ORDERED: DEXTROSE 50% 25 GM / 50ML DISP.SYRIN. IV PRN (17:30)
[2019-11-01] MEDS ORDERED: MAGNESIUM SULFATE 4GM 100 ML IV ONE (18:00)
[2019-11-01] MEDS ORDERED: INSULIN GLARGINE SYRINGE. SQ ONE (18:00)
[2019-11-01] MEDS ORDERED: IV NORMAL SALINE 1000ML BAG 1,000 ML IV SCH (18:00)
[2019-11-01] MEDS ORDERED: TOTAL PARENTERAL NUTRITION IV SCH ×10 (22:00)
[2019-11-01] MEDS ORDERED: [UNRECOGNIZED DRUG - OTHER] IV SCH ×10 (22:00)
[2019-11-01] MEDS ORDERED: AMINO ACID IV SCH ×10 (22:00)
[2019-11-01] MEDS ORDERED: DEXTROSE 70% IV SCH ×10 (22:00)
[2019-11-01] MEDS: INSULIN LISPRO 300 UNITS/3 ML VIAL. SQ SCH (23:29)
[2019-11-02] VITALS (23 sets, daily range): BP systolic 82–127; BP diastolic 63–87
[2019-11-02] MEDS: DEXMEDETOMIDINE 400 MCG in IV NORMAL SALINE 100ML 96 ML IV PRN ×4 (00:17→15:53)
[2019-11-02] MEDS: NOREPINEPHRINE VIAL 8 MG in IV DEXTROSE 5% 250 ML IV PRN (00:17)
[2019-11-02] MEDS: ACETAMINOPHEN 650 MG SUPP.RECT. PR PRN ×2 (03:54→18:09)
[2019-11-02] MEDS: INSULIN LISPRO 300 UNITS/3 ML VIAL. SQ SCH ×4 (06:00→23:42)
[2019-11-02] MEDS: PANTOPRAZOLE IV PUSH 40 MG VIAL. IVP SCH ×2 (06:02→18:24)
[2019-11-02] MEDS: MEROPENEM 500 MG in IV NORMAL SALINE 50ML 50 ML IV SCH ×3 (06:02→18:23)
[2019-11-02 06:12] LABS: BASO % 0 % (0-3); EOS # 0.2 x10^3/uL (0.0-0.7); EOS % 3 % (0-3); HEMATOCRIT 29.1 % (39.0-53.0); HEMOGLOBIN 9.3 g/dL (13.0-17.5); LYMPH # 2.3 x10^3/uL (1.0-4.8); LYMPH % 33 % (24-48); MEAN CORPUSCULAR HEMOGLOBIN 24 pg (25-35); MEAN CORPUSCULAR HGB CONC 32 g/dL (31-37); MEAN CORPUSCULAR VOLUME 75 fL (79-100); MONO # 0.2 x10^3/uL (0.0-1.1); MONO % 3 % (0-9); NEUT # 4.1 x10^3/uL (1.8-7.7); NEUT % 61 % (31-73); PLATELET COUNT 114 x10^3/uL (140-400); RED BLOOD COUNT 3.86 x10^6/uL (4.30-5.70); WHITE BLOOD COUNT 6.8 x10^3/uL (4.0-11.0)
[2019-11-02 06:25] LABS: CALCIUM 6.6 mg/dL (8.5-10.1); GFR 79.1; MAGNESIUM 1.9 mg/dL (1.8-2.4); PHOSPHORUS 2.1 mg/dL (2.6-4.7); POTASSIUM 4.9 mmol/L (3.5-5.1)
[2019-11-02] MEDS: MIDAZOLAM 100mg/100ml NS BAG 100 ML IV PRN (08:30)
[2019-11-02] MEDS: INSULIN GLARGINE SYRINGE. SQ SCH ×2 (08:36→21:29)
[2019-11-02 08:41] LABS: BASE EXCESS ABG -3 mmol/L (-3-3); CORRECTED PCO2 ABG 34 mmHg; CORRECTED PH ABG 7.42; CORRECTED PO2 ABG 145 mmHg; HCO3 ABG 21 mmol/L (21-28); PCO2 ABG 31 mmHg (35-46); PO2 ABG 132 mmHg (75-108); SAT O2 ABG 98 % (92-99)
[2019-11-02 08:46] LABS: FIO2 ABG 30
--- NOTE | 2019-11-02 08:49 | PDOC ---
Infectious Disease Note Subjective: Subjective Patient intubated/sedated Low-dose pressors NG tube/ETT T-max 101 On TPN Vital Signs: Vital Signs Vital Signs Date Time Temp Pulse Resp B/P (MAP) Pulse Ox O2 Delivery O2 Flow Rate FiO2 11/02/19 08:16 100 Ventilator 11/02/19 08:00 101.0 118 18 105/70 (82) 101.0 11/01/19 21:23 15.0 Physical Exam: PHYSICAL EXAM GENERAL: Intubated, sedated. HEENT: Normocephalic, atraumatic, NGT and ETT NECK: Supple, no JVD, no lymphadenopathy, no thyromegaly. LUNGS: Decreased breath sounds at the bases, otherwise, clear. HEART: S1, S2, tachycardia. No murmurs. ABDOMEN: Soft, nontender, bowel sounds present. EXTREMITIES: No cyanosis, no clubbing, no edema. Negative Nestor's sign. MUSCULOSKELETAL: Previous left knee surgery. Incision scar intact. No effusion. No surrounding erythema, no fluctuance. Nestor's negative. DERMATOLOGIC: Warm, dry. No generalized rash. NEUROLOGIC: Sedated. PSYCHIATRIC: Sedated. LINES: Left central line looks clean. PIV looks clean. Medications: Inpatient Meds: Current Medications Medications (Trade) Dose Ordered Sig/Edilma Start Time Stop Time Status Last Admin Dose Admin Acetaminophen (Tylenol Supp) 650 mg PRN Q6HRS PRN 10/31/19 16:00 11/02/19 03:54 650 MG Atropine Sulfate (ATROPINE 0.5mg SYRINGE) 0.5 mg PRN Q5MIN PRN 10/30/19 15:00 Daptomycin 540 mg/ Sodium Chloride 50 ml @ 100 mls/hr ONCE ONCE 10/30/19 22:00 10/30/19 22:29 DC 10/30/19 22:09 100 MLS/HR Dexmedetomidine HCl 400 mcg/ Sodium Chloride 100 ml @ 0 mls/hr CONT PRN 10/30/19 15:00 11/02/19 05:04 20 MLS/HR Dextrose (Dextrose 50%-Water Syringe) 12.5 gm PRN Q15MIN PRN 11/01/19 17:30 Dextrose/Sodium Chloride 1,000 ml @ 250 mls/hr Q4H 10/30/19 19:30 11/01/19 17:29 DC 11/01/19 12:40 250 MLS/HR Etomidate (Amidate) 20 mg 1X ONCE 10/30/19 10:30 10/30/19 10:32 DC 10/30/19 10:38 20 MG Fentanyl Citrate 30 ml @ 0 mls/hr CONT PRN 10/30/19 19:00 11/02/19 08:12 2.5 MLS/HR Fentanyl Citrate (Fentanyl 2ml Vial) 25 mcg PRN Q1HR PRN 10/30/19 15:00 UNV Info (Tpn Per Pharmacy) 1 each PRN DAILY PRN 11/01/19 11:00 11/01/19 12:02 1 EACH Insulin Glargine (Lantus Syringe) 20 unit BID 11/02/19 09:00 11/02/19 08:36 20 UNIT Insulin Human Lispro (HumaLOG) 0-7 UNITS Q6HRS 11/02/19 00:00 11/02/19 06:00 6 UNITS Insulin Human Regular 100 ml @ 0 mls/hr 1X ONCE 10/30/19 12:00 10/30/19 12:01 DC 10/30/19 12:55 9.7 MLS/HR Insulin Human Regular 100 unit/ Sodium Chloride 101 ml @ 0 mls/hr CONT PRN 10/31/19 03:15 11/01/19 14:58 2.02 MLS/HR Linezolid/Dextrose 300 ml @ 300 mls/hr Q12HR 10/31/19 14:00 11/02/19 08:13 300 MLS/HR Lorazepam (Ativan Inj) 0.5 mg PRN Q2HRS PRN 10/30/19 15:00 UNV Magnesium Sulfate 100 ml @ 25 mls/hr 1X ONCE 11/01/19 18:00 11/01/19 21:59 DC 11/01/19 17:46 25 MLS/HR Meropenem 500 mg/ Sodium Chloride 50 ml @ 100 mls/hr Q6HRS 11/01/19 00:00 11/02/19 06:02 100 MLS/HR Midazolam HCl 100 ml @ 1 mls/hr CONT PRN 10/30/19 17:00 11/02/19 08:30 10 MLS/HR Midazolam HCl 50 mg/Sodium Chloride 50 ml @ 0 mls/hr 1X ONCE 10/30/19 10:30 10/30/19 10:31 UNV Norepinephrine Bitartrate 8 mg/ Dextrose 258 ml @ 17.554 mls/ hr CONT PRN 10/30/19 22:15 11/02/19 00:17 12.288 MLS/HR Ondansetron HCl (Zofran) 4 mg PRN Q8HRS PRN 10/30/19 12:30 10/31/19 12:29 DC Pantoprazole Sodium (PROTONIX VIAL for IV PUSH) 40 mg [id number] 10/31/19 18:00 11/02/19 06:02 40 MG Phytonadione (Vitamin K Ampule) 10 mg 1X ONCE 10/31/19 12:00 10/31/19 12:01 DC 10/31/19 12:29 10 MG Piperacillin Sod/ Tazobactam Sod 2.25 gm/Sodium Chloride 50 ml @ 100 mls/hr Q6HRS 10/31/19 00:00 10/31/19 14:01 DC 10/31/19 12:28 100 MLS/HR Piperacillin Sod/ Tazobactam Sod 3.375 gm/Sodium Chloride 50 ml @ 100 mls/hr Q6HRS 10/31/19 18:00 10/31/19 18:32 DC 10/31/19 18:06 100 MLS/HR Potassium Chloride/Water 100 ml @ 100 mls/hr Q1H 11/01/19 02:45 11/01/19 04:44 DC 11/01/19 03:45 100 MLS/HR Potassium Phosphate 13.6 mmol/Sodium Chloride 254.5333 ml @ 127.... 1X ONCE 11/01/19 13:00 11/01/19 14:59 DC 11/01/19 13:06 127.267 MLS/HR Potassium Phosphate 15 mmol/ Sodium Chloride 255 ml @ 62.5 mls/hr 1X ONCE 11/01/19 02:45 11/01/19 06:49 DC 11/01/19 02:48 62.5 MLS/HR Rocuronium [place] (Zemuron) 50 mg 1X ONCE 10/30/19 10:45 10/30/19 10:46 DC 10/30/19 10:45 50 MG Sodium Acetate 90 meq/Potassium Chloride 50 meq/ Potassium Phosphate 13.6 mmol/Magnesium Sulfate 10 meq/ Calcium Gluconate 10 meq/ Multivitamins 10 ml/Chromium/ Copper/Manganese/ Seleni/Zn 1 ml/ Total Parenteral Nutrition/Amino Acids/Dextrose/ Fat Emulsion Intravenous 1,512 ml @ 63 mls/hr TPN CONT 11/01/19 22:00 11/02/19 21:59 11/01/19 21:26 63 MLS/HR Sodium Chloride 1,000 ml @ 125 mls/hr Q8H 11/01/19 18:00 Hold 11/01/19 17:45 125 MLS/HR Sodium Phosphate 15 mmol/Sodium Chloride 105 ml @ 105 mls/hr 1X ONCE 11/02/19 09:00 11/02/19 09:59 11/02/19 08:36 105 MLS/HR Succinylcholine Chloride (Anectine) 100 mg 1X ONCE 10/30/19 10:30 10/30/19 10:32 DC 10/30/19 10:38 100 MG Labs: Lab Laboratory Tests Test 11/01/19 09:49 11/01/19 11:07 11/01/19 11:15 11/01/19 12:21 Glucose (Fingerstick) 284 mg/dL (70-99) 189 mg/dL (70-99) 142 mg/dL (70-99) Sodium Level 141 mmol/L (136-145) Potassium Level 4.0 mmol/L (3.5-5.1) Chloride Level 110 mmol/L (98-107) Carbon Dioxide Level 17 mmol/L (21-32) Anion Gap 14 (6-14) Blood Urea Nitrogen 16 mg/dL (8-26) Creatinine 1.2 mg/dL (0.7-1.3) Estimated GFR (Cockcroft-Gault) 64.1 Glucose Level 254 mg/dL (70-99) Calcium Level 6.1 mg/dL (8.5-10.1) Phosphorus Level 2.4 mg/dL (2.6-4.7) Magnesium Level 1.8 mg/dL (1.8-2.4) Test 11/01/19 13:15 11/01/19 14:29 11/01/19 15:58 11/01/19 16:00 Glucose (Fingerstick) 141 mg/dL (70-99) 128 mg/dL (70-99) 131 mg/dL (70-99) Sodium Level 140 mmol/L (136-145) Potassium Level 4.2 mmol/L (3.5-5.1) Chloride Level 110 mmol/L (98-107) Carbon Dioxide Level 20 mmol/L (21-32) Anion Gap 10 (6-14) Blood Urea Nitrogen 14 mg/dL (8-26) Creatinine 1.1 mg/dL (0.7-1.3) Estimated GFR (Cockcroft-Gault) 70.9 Glucose Level 151 mg/dL (70-99) Calcium Level 6.1 mg/dL (8.5-10.1) Phosphorus Level 2.9 mg/dL (2.6-4.7) Magnesium Level 1.6 mg/dL (1.8-2.4) Test 11/01/19 19:18 11/01/19 20:20 11/01/19 23:24 11/02/19 05:57 Glucose (Fingerstick) 115 mg/dL (70-99) 104 mg/dL (70-99) 198 mg/dL (70-99) 265 mg/dL (70-99) Test 11/02/19 06:00 11/02/19 08:34 White Blood Count 6.8 x10^3/uL (4.0-11.0) Red Blood Count 3.86 x10^6/uL (4.30-5.70) Hemoglobin 9.3 g/dL (13.0-17.5) Hematocrit 29.1 % (39.0-53.0) Mean Corpuscular Volume 75 fL (79-100) Mean Corpuscular Hemoglobin 24 pg (25-35) Mean Corpuscular Hemoglobin Concent 32 g/dL (31-37) Red Cell Distribution Width 22.0 % (11.5-14.5) Platelet Count 114 x10^3/uL (140-400) Neutrophils (%) (Auto) 61 % (31-73) Lymphocytes (%) (Auto) 33 % (24-48) Monocytes (%) (Auto) 3 % (0-9) Eosinophils (%) (Auto) 3 % (0-3) Basophils (%) (Auto) 0 % (0-3) Neutrophils # (Auto) 4.1 x10^3/uL (1.8-7.7) Lymphocytes # (Auto) 2.3 x10^3/uL (1.0-4.8) Monocytes # (Auto) 0.2 x10^3/uL (0.0-1.1) Eosinophils # (Auto) 0.2 x10^3/uL (0.0-0.7) Basophils # (Auto) 0.0 x10^3/uL (0.0-0.2) Sodium Level 140 mmol/L (136-145) Potassium Level 4.9 mmol/L (3.5-5.1) Chloride Level 108 mmol/L (98-107) Carbon Dioxide Level 23 mmol/L (21-32) Anion Gap 9 (6-14) Blood Urea Nitrogen 14 mg/dL (8-26) Creatinine 1.0 mg/dL (0.7-1.3) Estimated GFR (Cockcroft-Gault) 79.1 Glucose Level 283 mg/dL (70-99) Calcium Level 6.6 mg/dL (8.5-10.1) Phosphorus Level 2.1 mg/dL (2.6-4.7) Magnesium Level 1.9 mg/dL (1.8-2.4) Triglycerides Level 133 mg/dL (0-150) Glucose (Fingerstick) 307 mg/dL (70-99) Objective: Assessment: Severe sepsis source likely GI Group B strep bacteremia source GI Encephalopathy present on admission Acute respiratory failure status post intubation in the ED, Pneumothorax Lactic acidosis. DKA Acute kidney injury with underlying CKD. Lymphopenia. Diabetic ketoacidosis. Coagulopathy. Status post vitamin K Nausea and vomiting, chronically since last surgery with gallbladder. GI bleed Recent Pancreatitis, status post laparoscopic cholecystectomy on 09/14/2019.;now with pseudocyst/fluid collection Weight loss due to poor p.o. 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 Currently well healed. Hypertension. Bipolar disorder. Intolerance to Daptomycin with nausea, tolerated it twice for weeks in the past Last year. Anemia Thrombocytopenia Abdominal CT on admission Plan: Plan of Care Continue meropenem Start clindamycin DC linezolid Repeat blood culture Pulmonary ,hematology GI team following Monitor labs Continue supportive care. Critically ill Discussed with mother at bedside at length Discussed with nursing staff. KYLAH DOUGLASS MD Nov 02, 2019 08:49
[2019-11-02] MEDS ORDERED: SODIUM PHOSPHATE 15 MMOL in IV NORMAL SALINE 100ML 100 ML IV ONE (09:00)
--- NOTE | 2019-11-02 09:21 | PDOC ---
PROGRESS NOTES Chief Complaint Chief Complaint impression Sepsis respiratory failure DKA Bacteremia, gram-positive cocci, 1/3 bottles. Recent laparoscopic cholecystectomy. Acute on chronic kidney injury. hypophosphatemia Elevated INR, likely secondary to DIC DM2 Small moderate left pneumothorax, incompletely evaluated. Interval development of a 6.3 cm pseudocyst along the pancreatic body. Another 6 cm fluid collection along the medial aspect of the hepatic caudate lobe also likely reflects a pseudocyst. Right colonic wall thickening. Correlate for colitis. rim calcified 10 mm mass along the left kidney medially may be a complicated cyst but is indeterminate. Sonographic follow-up could be performed in 6 months. Plan Continue meropenem iv Start clindamycin iv DC linezolid Repeat blood culture Pulmonary ,hematology GI following Source of bacteremia remains unclear consult DR Alcantara 35 min cc time Operative Note Operative Note Operative Note: Preoperative Diagnosis: Gallstone pancreatitis Postoperative Diagnosis: Same Procedure: Laparoscopic cholecystectomy with intraoperative cholangiogram Surgeons: Quinton Bean Dumper: Aron WING Anesthesia: Gen. Estimated Blood Loss: 10 mL Specimen: Gallbladder to pathology Drains: None Complications: None Indications: The patient is a 49-year-old male who was admitted with prominent vomiting and abdominal pain. History of Present Illness History of Present Illness 11/02/2019 Patient seen and examined in ICU He is on the ventilator AC 18/500/30% FiO2, PEEP 5.3 Strange BSD NG tube intermittent suction He is also on IV Levophed and remains critically ill Discussed with RN and patient's mother Chart reviewed Vitals Vitals Vital Signs Date Time Temp Pulse Resp B/P (MAP) Pulse Ox O2 Delivery O2 Flow Rate FiO2 11/02/19 09:04 100 Ventilator 11/02/19 08:00 101.0 118 18 105/70 (82) 101.0 11/01/19 21:23 15.0 Physical Exam Physical Exam GENERAL: Intubated, sedated. HEENT: Normocephalic, atraumatic, NGT and ETT with bloodstained drainage NECK: Supple, no JVD, no lymphadenopathy, no thyromegaly. LUNGS: Decreased breath sounds at the bases, otherwise, clear. HEART: S1, S2, tachycardia. No murmurs. ABDOMEN: Soft, nontender, bowel sounds present. EXTREMITIES: No cyanosis, no clubbing, no edema. Negative Nestor's sign. MUSCULOSKELETAL: Previous left knee surgery. Incision scar intact. No effusion. No surrounding erythema, no fluctuance. Nestor's negative. DERMATOLOGIC: Warm, dry. No generalized rash. NEUROLOGIC: Sedated. PSYCHIATRIC: Sedated. LINES: Left central line looks clean. PIV looks clean. General: Other (Intubated and sedated) Heart: Other (slightly tachycardic ) Lungs: Crackles Abdomen: Normal bowel sounds, Soft Extremities: No clubbing Skin: No rashes Labs LABS [facility] Accession Number: [id number] . 01 Material submitted: . gallbladder - GALLBLADDER AND CONTENTS . 01 Clinical history: . Cholelithiasis . 02 Diagnosis: Gallbladder, laparoscopic cholecystectomy: - Cholelithiasis. - Chronic cholecystitis. . (MINH:chepe; 09/17/2019) [facility] 09/17/2019 1039 [facility] . 02 Comment: There is no evidence of malignancy. . (MINH:chepe; 09/17/2019) . 02 Electronically signed: . Darnell Leon MD, Pathologist NPI- [id number] SEX: M EXAM STATUS: ADM IN ORD. PHYSICIAN: KYLAH DOUGLASS MD REASON: nausea and vomiting, recent lap itzel-PUI PROCEDURE: CT ABDOMEN PELVIS WO CONTRAST EXAM: CT ABDOMEN/PELVIS WITHOUT CONTRAST. HISTORY: Nausea and vomiting, recent cholecystectomy. TECHNIQUE: Computed tomography of the abdomen and pelvis was performed without intravenous contrast. One or more of the following individualized dose reduction techniques were utilized for this examination: 1. Automated exposure control. 2. Adjustment of the mA and/or kV according to patient size. 3. Use of iterative reconstruction technique. COMPARISON: 09/13/2019. FINDINGS: Lung windows through the visualized portions of the bases reveal a small to moderate left pneumothorax anteriorly. There is mild dependent atelectasis. A small amount of pneumoperitoneum is likely included in this small hiatus hernia.. Bone windows reveal no suspicious lesions. A nasogastric tube has its tip in the distal stomach. A fluid collection along the anterior aspect of the pancreatic body measures 6.3 x 4.2 cm and is consistent with a pseudocyst. It exerts mass effect on the body of the stomach. Another fluid collection along the medial aspect of the hepatic caudate lobe measures 5.7 x 3.0 cm and may reflect another pseudocyst. The gallbladder is surgically absent. The liver, spleen, and adrenal glands are unremarkable. There are no pathologically enlarged lymph nodes. The bladder is decompressed by a Strange catheter. There is mild wall thickening along the ascending colon. There is no small bowel obstruction. A rim calcified nodule medially along left renal interpolar region measures 10 x 7 mm. The right kidney is unremarkable. IMPRESSION: 1. Small moderate left pneumothorax, incompletely evaluated. 2. Interval development of a 6.3 cm pseudocyst along the pancreatic body. 3. Another 6 cm fluid collection along the medial aspect of the hepatic caudate lobe also likely reflects a pseudocyst. 4. Right colonic wall thickening. Correlate for colitis. 5. A rim calcified 10 mm mass along the left kidney medially may be a complicated cyst but is indeterminate. Sonographic follow-up could be performed in 6 months. These findings were called to Rosa by Valente Cox on 10/31/2019 at 12:45 PM. Electronically signed by: Aracelis Cox MD (10/31/2019 12:45 PM) [id number] DICTATED and SIGNED BY: ANGEL COX MD DATE: 10/31/19 1245 EXAM: PORTABLE CHEST 1V INDICATION: Reason: L pneumothorax 116 / Spl. Instructions: / History: . TECHNIQUE: Single view COMPARISON: 10/31/2019 chest x-ray FINDINGS: Patient remains intubated with ET tube terminating 5.[address]. Enteric tube remains present passing below the diaphragms. Left subclavian approach central venous catheter with the tip near the cavoatrial junction is present. The heart size is normal. The great vessels appear unremarkable. There is no hilar or mediastinal mass. The lungs are slightly lower in volume but otherwise clear.. There is no pleural effusion or pneumothorax. There are no significant osseous abnormalities. IMPRESSION: Stable lines and tubes with slightly lower lung volumes are otherwise no acute cardiopulmonary process. No pneumothorax shown on this exam. Electronically signed by: Karen Yepez MD (11/01/2019 6:14 AM) [place] DICTATED and SIGNED BY: KAREN YEPEZ MD DATE: 11/01/19613 Laboratory Tests Test 11/01/19 09:49 11/01/19 11:07 11/01/19 11:15 11/01/19 12:21 Glucose (Fingerstick) 284 mg/dL (70-99) 189 mg/dL (70-99) 142 mg/dL (70-99) Sodium Level 141 mmol/L (136-145) Potassium Level 4.0 mmol/L (3.5-5.1) Chloride Level 110 mmol/L (98-107) Carbon Dioxide Level 17 mmol/L (21-32) Anion Gap 14 (6-14) Blood Urea Nitrogen 16 mg/dL (8-26) Creatinine 1.2 mg/dL (0.7-1.3) Estimated GFR (Cockcroft-Gault) 64.1 Glucose Level 254 mg/dL (70-99) Calcium Level 6.1 mg/dL (8.5-10.1) Phosphorus Level 2.4 mg/dL (2.6-4.7) Magnesium Level 1.8 mg/dL (1.8-2.4) Test 11/01/19 13:15 11/01/19 14:29 11/01/19 15:58 11/01/19 16:00 Glucose (Fingerstick) 141 mg/dL (70-99) 128 mg/dL (70-99) 131 mg/dL (70-99) Sodium Level 140 mmol/L (136-145) Potassium Level 4.2 mmol/L (3.5-5.1) Chloride Level 110 mmol/L (98-107) Carbon Dioxide Level 20 mmol/L (21-32) Anion Gap 10 (6-14) Blood Urea Nitrogen 14 mg/dL (8-26) Creatinine 1.1 mg/dL (0.7-1.3) Estimated GFR (Cockcroft-Gault) 70.9 Glucose Level 151 mg/dL (70-99) Calcium Level 6.1 mg/dL (8.5-10.1) Phosphorus Level 2.9 mg/dL (2.6-4.7) Magnesium Level 1.6 mg/dL (1.8-2.4) Test 11/01/19 19:18 11/01/19 20:20 11/01/19 23:24 11/02/19 05:57 Glucose (Fingerstick) 115 mg/dL (70-99) 104 mg/dL (70-99) 198 mg/dL (70-99) 265 mg/dL (70-99) Test 11/02/19 06:00 11/02/19 08:30 11/02/19 08:34 White Blood Count 6.8 x10^3/uL (4.0-11.0) Red Blood Count 3.86 x10^6/uL (4.30-5.70) Hemoglobin 9.3 g/dL (13.0-17.5) Hematocrit 29.1 % (39.0-53.0) Mean Corpuscular Volume 75 fL (79-100) Mean Corpuscular Hemoglobin 24 pg (25-35) Mean Corpuscular Hemoglobin Concent 32 g/dL (31-37) Red Cell Distribution Width 22.0 % (11.5-14.5) Platelet Count 114 x10^3/uL (140-400) Neutrophils (%) (Auto) 61 % (31-73) Lymphocytes (%) (Auto) 33 % (24-48) Monocytes (%) (Auto) 3 % (0-9) Eosinophils (%) (Auto) 3 % (0-3) Basophils (%) (Auto) 0 % (0-3) Neutrophils # (Auto) 4.1 x10^3/uL (1.8-7.7) Lymphocytes # (Auto) 2.3 x10^3/uL (1.0-4.8) Monocytes # (Auto) 0.2 x10^3/uL (0.0-1.1) Eosinophils # (Auto) 0.2 x10^3/uL (0.0-0.7) Basophils # (Auto) 0.0 x10^3/uL (0.0-0.2) Sodium Level 140 mmol/L (136-145) Potassium Level 4.9 mmol/L (3.5-5.1) Chloride Level 108 mmol/L (98-107) Carbon Dioxide Level 23 mmol/L (21-32) Anion Gap 9 (6-14) Blood Urea Nitrogen 14 mg/dL (8-26) Creatinine 1.0 mg/dL (0.7-1.3) Estimated GFR (Cockcroft-Gault) 79.1 Glucose Level 283 mg/dL (70-99) Calcium Level 6.6 mg/dL (8.5-10.1) Phosphorus Level 2.1 mg/dL (2.6-4.7) Magnesium Level 1.9 mg/dL (1.8-2.4) Triglycerides Level 133 mg/dL (0-150) O2 Saturation 98 % (92-99) Arterial Blood pH 7.45 (7.35-7.45) Arterial Blood pH (Temp corrected) 7.42 Arterial Blood pCO2 at Patient Temp 31 mmHg (35-46) Arterial Blood pCO2 (Temp correct) 34 mmHg Arterial Blood pO2 at Patient Temp 132 mmHg (75-108) Arterial Blood pO2 (Temp corrected) 145 mmHg Arterial Blood HCO3 21 mmol/L (21-28) Arterial Blood Base Excess -3 mmol/L (-3-3) FiO2 30 Glucose (Fingerstick) 307 mg/dL (70-99) Assessment and Plan Assessmemt and Plan Problems Medical Problems: (1) DKA (diabetic ketoacidoses) Status: Acute (2) Hypokalemia Status: Acute (3) Respiratory failure Status: Acute (4) Severe sepsis Status: Acute (5) Suspected 2019-nCoV infection Status: Acute Comment Review of Relevant I have reviewed the following items blaze (where applicable) has been applied. Labs Laboratory Tests Test 10/31/19 10:05 10/31/19 10:07 10/31/19 12:09 10/31/19 14:04 Sodium Level 143 mmol/L (136-145) Potassium Level 3.3 mmol/L (3.5-5.1) Chloride Level 108 mmol/L (98-107) Carbon Dioxide Level 20 mmol/L (21-32) Anion Gap 15 (6-14) Blood Urea Nitrogen 28 mg/dL (8-26) Creatinine 1.7 mg/dL (0.7-1.3) Estimated GFR (Cockcroft-Gault) 42.9 Glucose Level 290 mg/dL (70-99) Calcium Level 7.0 mg/dL (8.5-10.1) Phosphorus Level 1.8 mg/dL (2.6-4.7) Magnesium Level 1.8 mg/dL (1.8-2.4) Glucose (Fingerstick) 255 mg/dL (70-99) 123 mg/dL (70-99) 109 mg/dL (70-99) Test 10/31/19 15:39 10/31/19 15:40 10/31/19 18:22 10/31/19 19:55 Glucose (Fingerstick) 279 mg/dL (70-99) 248 mg/dL (70-99) 144 mg/dL (70-99) Sodium Level 142 mmol/L (136-145) Potassium Level 3.5 mmol/L (3.5-5.1) Chloride Level 108 mmol/L (98-107) Carbon Dioxide Level 21 mmol/L (21-32) Anion Gap 13 (6-14) Blood Urea Nitrogen 22 mg/dL (8-26) Creatinine 1.4 mg/dL (0.7-1.3) Estimated GFR (Cockcroft-Gault) 53.6 Glucose Level 311 mg/dL (70-99) Calcium Level 6.5 mg/dL (8.5-10.1) Phosphorus Level 3.8 mg/dL (2.6-4.7) Magnesium Level 1.6 mg/dL (1.8-2.4) Test 10/31/19 21:15 10/31/19 21:21 10/31/19 22:54 11/01/19 00:13 Sodium Level 145 mmol/L (136-145) Potassium Level 3.0 mmol/L (3.5-5.1) Chloride Level 110 mmol/L (98-107) Carbon Dioxide Level 20 mmol/L (21-32) Anion Gap 15 (6-14) Blood Urea Nitrogen 21 mg/dL (8-26) Creatinine 1.4 mg/dL (0.7-1.3) Estimated GFR (Cockcroft-Gault) 53.6 Glucose Level 102 mg/dL (70-99) Calcium Level 6.9 mg/dL (8.5-10.1) Phosphorus Level 2.6 mg/dL (2.6-4.7) Magnesium Level 2.5 mg/dL (1.8-2.4) Glucose (Fingerstick) 101 mg/dL (70-99) 156 mg/dL (70-99) 133 mg/dL (70-99) Test 11/01/19 01:25 11/01/19 01:30 11/01/19 02:38 11/01/19 04:41 Glucose (Fingerstick) 142 mg/dL (70-99) 143 mg/dL (70-99) 115 mg/dL (70-99) Sodium Level 143 mmol/L (136-145) Potassium Level 3.9 mmol/L (3.5-5.1) Chloride Level 110 mmol/L (98-107) Carbon Dioxide Level 23 mmol/L (21-32) Anion Gap 10 (6-14) Blood Urea Nitrogen 19 mg/dL (8-26) Creatinine 1.4 mg/dL (0.7-1.3) Estimated GFR (Cockcroft-Gault) 53.6 Glucose Level 147 mg/dL (70-99) Calcium Level 6.3 mg/dL (8.5-10.1) Phosphorus Level 2.3 mg/dL (2.6-4.7) Magnesium Level 2.1 mg/dL (1.8-2.4) Test 11/01/19 05:00 11/01/19 06:00 11/01/19 06:03 11/01/19 07:35 White Blood Count 6.3 x10^3/uL (4.0-11.0) Red Blood Count 3.94 x10^6/uL (4.30-5.70) Hemoglobin 9.7 g/dL (13.0-17.5) Hematocrit 29.4 % (39.0-53.0) Mean Corpuscular Volume 75 fL (79-100) Mean Corpuscular Hemoglobin 25 pg (25-35) Mean Corpuscular Hemoglobin Concent 33 g/dL (31-37) Red Cell Distribution Width 22.3 % (11.5-14.5) Platelet Count 144 x10^3/uL (140-400) Neutrophils (%) (Auto) 54 % (31-73) Lymphocytes (%) (Auto) 39 % (24-48) Monocytes (%) (Auto) 5 % (0-9) Eosinophils (%) (Auto) 1 % (0-3) Basophils (%) (Auto) 0 % (0-3) Neutrophils # (Auto) 3.4 x10^3/uL (1.8-7.7) Lymphocytes # (Auto) 2.5 x10^3/uL (1.0-4.8) Monocytes # (Auto) 0.3 x10^3/uL (0.0-1.1) Eosinophils # (Auto) 0.1 x10^3/uL (0.0-0.7) Basophils # (Auto) 0.0 x10^3/uL (0.0-0.2) Prothrombin Time 16.7 SEC (11.7-14.0) Prothromb Time International Ratio 1.4 (0.8-1.1) Sodium Level 144 mmol/L (136-145) Potassium Level 4.4 mmol/L (3.5-5.1) Chloride Level 111 mmol/L (98-107) Carbon Dioxide Level 21 mmol/L (21-32) Anion Gap 12 (6-14) Blood Urea Nitrogen 17 mg/dL (8-26) Creatinine 1.2 mg/dL (0.7-1.3) Estimated GFR (Cockcroft-Gault) 64.1 Glucose Level 103 mg/dL (70-99) Calcium Level 6.2 mg/dL (8.5-10.1) Phosphorus Level 2.7 mg/dL (2.6-4.7) Magnesium Level 1.9 mg/dL (1.8-2.4) Glucose (Fingerstick) 92 mg/dL (70-99) O2 Saturation 98 % (92-99) Arterial Blood pH 7.47 (7.35-7.45) Arterial Blood pCO2 at Patient Temp 25 mmHg (35-46) Arterial Blood pO2 at Patient Temp 138 mmHg (75-108) Arterial Blood HCO3 18 mmol/L (21-28) Arterial Blood Base Excess -5 mmol/L (-3-3) FiO2 30% Test 11/01/19 08:17 11/01/19 09:49 11/01/19 11:07 11/01/19 11:15 Glucose (Fingerstick) 173 mg/dL (70-99) 284 mg/dL (70-99) 189 mg/dL (70-99) Sodium Level 141 mmol/L (136-145) Potassium Level 4.0 mmol/L (3.5-5.1) Chloride Level 110 mmol/L (98-107) Carbon Dioxide Level 17 mmol/L (21-32) Anion Gap 14 (6-14) Blood Urea Nitrogen 16 mg/dL (8-26) Creatinine 1.2 mg/dL (0.7-1.3) Estimated GFR (Cockcroft-Gault) 64.1 Glucose Level 254 mg/dL (70-99) Calcium Level 6.1 mg/dL (8.5-10.1) Phosphorus Level 2.4 mg/dL (2.6-4.7) Magnesium Level 1.8 mg/dL (1.8-2.4) Test 11/01/19 12:21 11/01/19 13:15 11/01/19 14:29 11/01/19 15:58 Glucose (Fingerstick) 142 mg/dL (70-99) 141 mg/dL (70-99) 128 mg/dL (70-99) 131 mg/dL (70-99) Test 11/01/19 16:00 11/01/19 19:18 11/01/19 20:20 11/01/19 23:24 Sodium Level 140 mmol/L (136-145) Potassium Level 4.2 mmol/L (3.5-5.1) Chloride Level 110 mmol/L (98-107) Carbon Dioxide Level 20 mmol/L (21-32) Anion Gap 10 (6-14) Blood Urea Nitrogen 14 mg/dL (8-26) Creatinine 1.1 mg/dL (0.7-1.3) Estimated GFR (Cockcroft-Gault) 70.9 Glucose Level 151 mg/dL (70-99) Calcium Level 6.1 mg/dL (8.5-10.1) Phosphorus Level 2.9 mg/dL (2.6-4.7) Magnesium Level 1.6 mg/dL (1.8-2.4) Glucose (Fingerstick) 115 mg/dL (70-99) 104 mg/dL (70-99) 198 mg/dL (70-99) Test 11/02/19 05:57 11/02/19 06:00 11/02/19 08:30 11/02/19 08:34 Glucose (Fingerstick) 265 mg/dL (70-99) 307 mg/dL (70-99) White Blood Count 6.8 x10^3/uL (4.0-11.0) Red Blood Count 3.86 x10^6/uL (4.30-5.70) Hemoglobin 9.3 g/dL (13.0-17.5) Hematocrit 29.1 % (39.0-53.0) Mean Corpuscular Volume 75 fL (79-100) Mean Corpuscular Hemoglobin 24 pg (25-35) Mean Corpuscular Hemoglobin Concent 32 g/dL (31-37) Red Cell Distribution Width 22.0 % (11.5-14.5) Platelet Count 114 x10^3/uL (140-400) Neutrophils (%) (Auto) 61 % (31-73) Lymphocytes (%) (Auto) 33 % (24-48) Monocytes (%) (Auto) 3 % (0-9) Eosinophils (%) (Auto) 3 % (0-3) Basophils (%) (Auto) 0 % (0-3) Neutrophils # (Auto) 4.1 x10^3/uL (1.8-7.7) Lymphocytes # (Auto) 2.3 x10^3/uL (1.0-4.8) Monocytes # (Auto) 0.2 x10^3/uL (0.0-1.1) Eosinophils # (Auto) 0.2 x10^3/uL (0.0-0.7) Basophils # (Auto) 0.0 x10^3/uL (0.0-0.2) Sodium Level 140 mmol/L (136-145) Potassium Level 4.9 mmol/L (3.5-5.1) Chloride Level 108 mmol/L (98-107) Carbon Dioxide Level 23 mmol/L (21-32) Anion Gap 9 (6-14) Blood Urea Nitrogen 14 mg/dL (8-26) Creatinine 1.0 mg/dL (0.7-1.3) Estimated GFR (Cockcroft-Gault) 79.1 Glucose Level 283 mg/dL (70-99) Calcium Level 6.6 mg/dL (8.5-10.1) Phosphorus Level 2.1 mg/dL (2.6-4.7) Magnesium Level 1.9 mg/dL (1.8-2.4) Triglycerides Level 133 mg/dL (0-150) O2 Saturation 98 % (92-99) Arterial Blood pH 7.45 (7.35-7.45) Arterial Blood pH (Temp corrected) 7.42 Arterial Blood pCO2 at Patient Temp 31 mmHg (35-46) Arterial Blood pCO2 (Temp correct) 34 mmHg Arterial Blood pO2 at Patient Temp 132 mmHg (75-108) Arterial Blood pO2 (Temp corrected) 145 mmHg Arterial Blood HCO3 21 mmol/L (21-28) Arterial Blood Base Excess -3 mmol/L (-3-3) FiO2 30 Laboratory Tests Test 11/01/19 09:49 11/01/19 11:07 11/01/19 11:15 11/01/19 12:21 Glucose (Fingerstick) 284 mg/dL (70-99) 189 mg/dL (70-99) 142 mg/dL (70-99) Sodium Level 141 mmol/L (136-145) Potassium Level 4.0 mmol/L (3.5-5.1) Chloride Level 110 mmol/L (98-107) Carbon Dioxide Level 17 mmol/L (21-32) Anion Gap 14 (6-14) Blood Urea Nitrogen 16 mg/dL (8-26) Creatinine 1.2 mg/dL (0.7-1.3) Estimated GFR (Cockcroft-Gault) 64.1 Glucose Level 254 mg/dL (70-99) Calcium Level 6.1 mg/dL (8.5-10.1) Phosphorus Level 2.4 mg/dL (2.6-4.7) Magnesium Level 1.8 mg/dL (1.8-2.4) Test 11/01/19 13:15 11/01/19 14:29 11/01/19 15:58 11/01/19 16:00 Glucose (Fingerstick) 141 mg/dL (70-99) 128 mg/dL (70-99) 131 mg/dL (70-99) Sodium Level 140 mmol/L (136-145) Potassium Level 4.2 mmol/L (3.5-5.1) Chloride Level 110 mmol/L (98-107) Carbon Dioxide Level 20 mmol/L (21-32) Anion Gap 10 (6-14) Blood Urea Nitrogen 14 mg/dL (8-26) Creatinine 1.1 mg/dL (0.7-1.3) Estimated GFR (Cockcroft-Gault) 70.9 Glucose Level 151 mg/dL (70-99) Calcium Level 6.1 mg/dL (8.5-10.1) Phosphorus Level 2.9 mg/dL (2.6-4.7) Magnesium Level 1.6 mg/dL (1.8-2.4) Test 11/01/19 19:18 11/01/19 20:20 11/01/19 23:24 11/02/19 05:57 Glucose (Fingerstick) 115 mg/dL (70-99) 104 mg/dL (70-99) 198 mg/dL (70-99) 265 mg/dL (70-99) Test 11/02/19 06:00 11/02/19 08:30 11/02/19 08:34 White Blood Count 6.8 x10^3/uL (4.0-11.0) Red Blood Count 3.86 x10^6/uL (4.30-5.70) Hemoglobin 9.3 g/dL (13.0-17.5) Hematocrit 29.1 % (39.0-53.0) Mean Corpuscular Volume 75 fL (79-100) Mean Corpuscular Hemoglobin 24 pg (25-35) Mean Corpuscular Hemoglobin Concent 32 g/dL (31-37) Red Cell Distribution Width 22.0 % (11.5-14.5) Platelet Count 114 x10^3/uL (140-400) Neutrophils (%) (Auto) 61 % (31-73) Lymphocytes (%) (Auto) 33 % (24-48) Monocytes (%) (Auto) 3 % (0-9) Eosinophils (%) (Auto) 3 % (0-3) Basophils (%) (Auto) 0 % (0-3) Neutrophils # (Auto) 4.1 x10^3/uL (1.8-7.7) Lymphocytes # (Auto) 2.3 x10^3/uL (1.0-4.8) Monocytes # (Auto) 0.2 x10^3/uL (0.0-1.1) Eosinophils # (Auto) 0.2 x10^3/uL (0.0-0.7) Basophils # (Auto) 0.0 x10^3/uL (0.0-0.2) Sodium Level 140 mmol/L (136-145) Potassium Level 4.9 mmol/L (3.5-5.1) Chloride Level 108 mmol/L (98-107) Carbon Dioxide Level 23 mmol/L (21-32) Anion Gap 9 (6-14) Blood Urea Nitrogen 14 mg/dL (8-26) Creatinine 1.0 mg/dL (0.7-1.3) Estimated GFR (Cockcroft-Gault) 79.1 Glucose Level 283 mg/dL (70-99) Calcium Level 6.6 mg/dL (8.5-10.1) Phosphorus Level 2.1 mg/dL (2.6-4.7) Magnesium Level 1.9 mg/dL (1.8-2.4) Triglycerides Level 133 mg/dL (0-150) O2 Saturation 98 % (92-99) Arterial Blood pH 7.45 (7.35-7.45) Arterial Blood pH (Temp corrected) 7.42 Arterial Blood pCO2 at Patient Temp 31 mmHg (35-46) Arterial Blood pCO2 (Temp correct) 34 mmHg Arterial Blood pO2 at Patient Temp 132 mmHg (75-108) Arterial Blood pO2 (Temp corrected) 145 mmHg Arterial Blood HCO3 21 mmol/L (21-28) Arterial Blood Base Excess -3 mmol/L (-3-3) FiO2 30 Glucose (Fingerstick) 307 mg/dL (70-99) Microbiology 11/01/19 Blood Culture - Final, Complete 10/30/19 Urine Culture - Final, Complete Medications Current Medications Midazolam HCl 100 ml @ 1 mls/hr 1X ONCE IV Last administered on 10/30/19at 10:40; Start 10/30/19 at 10:30; Stop 11/01/19 at 08:11; Status DC Midazolam HCl 50 mg/Sodium Chloride 50 ml @ 0 mls/hr 1X ONCE IV ; Start 10/30/19 at 10:30; Stop 10/30/19 at 10:31; Status UNV Etomidate (Amidate) 20 mg 1X ONCE IV Last administered on 10/30/19at 10:38; Start 10/30/19 at 10:30; Stop 10/30/19 at 10:32; Status DC Succinylcholine Chloride (Anectine) 100 mg 1X ONCE IV Last administered on 10/30/19at 10:38; Start 10/30/19 at 10:30; Stop 10/30/19 at 10:32; Status DC Norepinephrine Bitartrate 8 mg/ Dextrose 258 ml @ 13.177 mls/ hr 1X ONCE IV Last administered on 10/30/19at 10:39; Start 10/30/19 at 10:25; Stop 10/31/19 at 05:59; Status DC Piperacillin Sod/ Tazobactam Sod 3.375 gm/Sodium Chloride 50 ml @ 100 mls/hr 1X ONCE IV Last administered on 10/30/19at 10:42; Start 10/30/19 at 11:00; Stop 10/30/19 at 11:29; Status DC Rocuronium Bartlett (Zemuron) 10 mg 1X ONCE IV ; Start 10/30/19 at 10:45; Stop 10/30/19 at 10:46; Status Cancel Sodium Chloride 1,000 ml @ 1,000 mls/hr 1X ONCE IV Last administered on 10/30/19at 10:43; Start 10/30/19 at 10:45; Stop 10/30/19 at 11:44; Status DC Sodium Chloride 1,000 ml @ 1,000 mls/hr 1X ONCE IV Last administered on 10/30/19at 10:43; Start 10/30/19 at 10:45; Stop 10/30/19 at 11:44; Status DC Rocuronium Bartlett (Zemuron) 50 mg 1X ONCE IV Last administered on 10/30/19at 10:45; Start 10/30/19 at 10:45; Stop 10/30/19 at 10:46; Status DC Potassium Chloride/Water 100 ml @ 100 mls/hr Q1H IV Last administered on 10/30/19at 12:56; Start 10/30/19 at 12:00; Stop 10/30/19 at 13:59; Status DC Insulin Human Regular 100 ml @ 0 mls/hr 1X ONCE IV Last administered on 10/30/19at 12:55; Start 10/30/19 at 12:00; Stop 10/30/19 at 12:01; Status DC Sodium Chloride 1,000 ml @ 1,000 mls/hr 1X ONCE IV Last administered on 10/30/19at 12:45; Start 10/30/19 at 12:15; Stop 10/30/19 at 13:14; Status DC Ondansetron HCl (Zofran) 4 mg PRN Q8HRS PRN IV NAUSEA/VOMITING; Start 10/30/19 at 12:30; Stop 10/31/19 at 12:29; Status DC Sodium Chloride 1,000 ml @ 125 mls/hr Q8H IV Last administered on 10/30/19at 15:20; Start 10/30/19 at 12:25; Stop 10/31/19 at 07:13; Status DC Dexmedetomidine HCl 400 mcg/ Sodium Chloride 100 ml @ 0 mls/hr CONT PRN IV SEE COMMENTS Last administered on 11/02/19at 05:04; Start 10/30/19 at 15:00 Fentanyl Citrate (Fentanyl 2ml Vial) 25 mcg PRN Q1HR PRN IV PAIN; Start 10/30/19 at 15:00; Status UNV Lorazepam (Ativan Inj) 0.5 mg PRN Q2HRS PRN IV AGITATION; Start 10/30/19 at 15:00; Status UNV Sodium Chloride 500 ml @ 500 mls/hr 1X PRN PRN IV COMMENTS; Start 10/30/19 at 15:00 Atropine Sulfate (ATROPINE 0.5mg SYRINGE) 0.5 mg PRN Q5MIN PRN IV SEE COMMENTS; Start 10/30/19 at 15:00 Midazolam HCl 100 ml @ 1 mls/hr CONT PRN IV SEE COMMENTS Last administered on 11/02/19at 08:30; Start 10/30/19 at 17:00 Pantoprazole Sodium (PROTONIX VIAL for IV PUSH) 40 mg DAILYAC IVP Last administered on 10/31/19at 07:23; Start 10/31/19 at 07:30; Stop 10/31/19 at 11:55; Status DC Pantoprazole Sodium (PROTONIX VIAL for IV PUSH) 40 mg 1X ONCE IVP Last administered on 10/30/19at 22:00; Start 10/30/19 at 18:45; Stop 10/30/19 at 18:47; Status DC Phytonadione (Vitamin K Ampule) 5 mg 1X ONCE SQ Last administered on 10/30/19at 20:01; Start 10/30/19 at 18:45; Stop 10/30/19 at 18:47; Status DC Fentanyl Citrate 30 ml @ 0 mls/hr CONT PRN IV SEE PROTOCOL Last administered on 11/02/19at 08:12; Start 10/30/19 at 19:00 Dextrose/Sodium Chloride 1,000 ml @ 250 mls/hr Q4H IV Last administered on 11/01/19at 12:40; Start 10/30/19 at 19:30; Stop 11/01/19 at 17:29; Status DC Potassium Phosphate 13.6 mmol/Sodium Chloride 254.5333 ml @ 127.... Q2H IV Last administered on 10/30/19at 22:00; Start 10/30/19 at 20:00; Stop 10/30/19 at 23:59; Status DC Piperacillin Sod/ Tazobactam Sod 2.25 gm/Sodium Chloride 50 ml @ 100 mls/hr Q6HRS IV Last administered on 10/31/19at 12:28; Start 10/31/19 at 00:00; Stop 10/31/19 at 14:01; Status DC Daptomycin 540 mg/ Sodium Chloride 50 ml @ 100 mls/hr ONCE ONCE IV Last administered on 10/30/19at 22:09; Start 10/30/19 at 22:00; Stop 10/30/19 at 22:29; Status DC Norepinephrine Bitartrate 8 mg/ Dextrose 258 ml @ 17.554 mls/ hr CONT PRN IV PER PROTOCOL Last administered on 11/02/19at 00:17; Start 10/30/19 at 22:15 Potassium Chloride/Water 100 ml @ 100 mls/hr Q1H IV Last administered on 10/31/19at 01:30; Start 10/30/19 at 23:30; Stop 10/31/19 at 02:29; Status DC Dextrose (Dextrose 50%-Water Syringe) 25 gm PRN Q10MIN PRN IV HYPOGLYCEMIA Last administered on 10/31/19at 02:39; Start 10/31/19 at 02:30 Potassium Chloride/Water 100 ml @ 100 mls/hr Q1H IV Last administered on 10/31/19at 04:39; Start 10/31/19 at 03:30; Stop 10/31/19 at 05:29; Status DC Insulin Human Regular 100 unit/ Sodium Chloride 101 ml @ 0 mls/hr CONT PRN IV SEE I/O RECORD Last administered on 11/01/19at 14:58; Start 10/31/19 at 03:15 Potassium Chloride/Water 100 ml @ 100 mls/hr Q1H IV Last administered on 10/31/19at 08:27; Start 10/31/19 at 07:30; Stop 10/31/19 at 09:29; Status DC Potassium Phosphate 13.6 mmol/Sodium Chloride 254.5333 ml @ 127.... Q2H IV Last administered on 10/31/19at 13:18; Start 10/31/19 at 11:00; Stop 10/31/19 at 14:59; Status DC Pantoprazole Sodium (PROTONIX VIAL for IV PUSH) 40 mg [id number] IVP Last administered on 11/02/19at 06:02; Start 10/31/19 at 18:00 Phytonadione (Vitamin K Ampule) 10 mg 1X ONCE SQ Last administered on 10/31/19at 12:29; Start 10/31/19 at 12:00; Stop 10/31/19 at 12:01; Status DC Linezolid/Dextrose 300 ml @ 300 mls/hr Q12HR IV Last administered on 11/02/19at 08:13; Start 10/31/19 at 14:00; Stop 11/02/19 at 08:50; Status DC Piperacillin Sod/ Tazobactam Sod 3.375 gm/Sodium Chloride 50 ml @ 100 mls/hr Q 6HRS IV Last administered on 10/31/19at 18:06; Start 10/31/19 at 18:00; Stop 10/31/19 at 18:32; Status DC Acetaminophen (Tylenol Supp) 650 mg PRN Q6HRS PRN [place] MILD PAIN / TEMP > 100.3'F Last administered on 11/02/19at 03:54; Start 10/31/19 at 16:00 Potassium Chloride/Water 100 ml @ 100 mls/hr Q1H IV Last administered on 10/31/19at 19:07; Start 10/31/19 at 18:00; Stop 10/31/19 at 19:59; Status DC Magnesium Sulfate 100 ml @ 25 mls/hr 1X ONCE IV Last administered on 10/31/19at 18:07; Start 10/31/19 at 18:00; Stop 10/31/19 at 21:59; Status DC Meropenem 500 mg/ Sodium Chloride 50 ml @ 100 mls/hr Q6HRS IV Last administered on 11/02/19at 06:02; Start 11/01/19 at 00:00 Potassium Chloride/Water 100 ml @ 100 mls/hr Q1H IV Last administered on 10/31/19at 23:45; Start 10/31/19 at 22:00; Stop 10/31/19 at 23:59; Status DC Potassium Chloride/Water 100 ml @ 100 mls/hr Q1H IV Last administered on 11/01/19at 03:45; Start 11/01/19 at 02:45; Stop 11/01/19 at 04:44; Status DC Potassium Phosphate 15 mmol/ Sodium Chloride 255 ml @ 62.5 mls/hr 1X ONCE IV Last administered on 11/01/19at 02:48; Start 11/01/19 at 02:45; Stop 11/01/19 at 06:49; Status DC Potassium Phosphate 13.6 mmol/Sodium Chloride 254.5333 ml @ 127.... 1X ONCE IV Last administered on 11/01/19at 09:17; Start 11/01/19 at 09:00; Stop 11/01/19 at 10:59; Status DC Info (Tpn Per Pharmacy) 1 each PRN DAILY PRN MC SEE COMMENTS Last administered on 11/01/19at 12:02; Start 11/01/19 at 11:00 Sodium Acetate 90 meq/Potassium Chloride 50 meq/ Potassium Phosphate 13.6 mmol/Magnesium Sulfate 10 meq/ Calcium Gluconate 10 meq/ Multivitamins 10 ml/Chromium/ Copper/Manganese/ Seleni/Zn 1 ml/ Total Parenteral Nutrition/Amino Acids/Dextrose/ Fat Emulsion Intravenous 1,512 ml @ 63 mls/hr TPN CONT IV Last administered on 11/01/19at 21:26; Start 11/01/19 at 22:00; Stop 11/02/19 at 21:59 Potassium Phosphate 13.6 mmol/Sodium Chloride 254.5333 ml @ 127.... 1X ONCE IV Last administered on 11/01/19at 13:06; Start 11/01/19 at 13:00; Stop 11/01/19 at 14:59; Status DC Insulin Glargine (Lantus Syringe) 20 unit 1X ONCE SQ Last administered on 11/01/19at 17:45; Start 11/01/19 at 18:00; Stop 11/01/19 at 18:01; Status DC Insulin Glargine (Lantus Syringe) 20 unit BID SQ Last administered on 11/02/19at 08:36; Start 11/02/19 at 09:00 Insulin Human Lispro (HumaLOG) 0-7 UNITS Q6HRS SQ Last administered on 11/02/19at 06:00; Start 11/02/19 at 00:00 Dextrose (Dextrose 50%-Water Syringe) 12.5 gm PRN Q15MIN PRN IV SEE COMMENTS; Start 11/01/19 at 17:30 Magnesium Sulfate 100 ml @ 25 mls/hr 1X ONCE IV Last administered on 11/01/19at 17:46; Start 11/01/19 at 18:00; Stop 11/01/19 at 21:59; Status DC Sodium Chloride 1,000 ml @ 125 mls/hr Q8H IV Last administered on 11/01/19at 17:45; Start 11/01/19 at 18:00; Status Hold Sodium Phosphate 15 mmol/Sodium Chloride 105 ml @ 105 mls/hr 1X ONCE IV Last administered on 11/02/19at 08:36; Start 11/02/19 at 09:00; Stop 11/02/19 at 09:59 Active Scripts Active Humalog (Insulin Lispro) 100 Unit/1 Ml Insuln.pen 0 Units SQ QIDACHS 14 Days Culturelle (Lactobacillus Rhamnosus Gg) 1 Each Cap.sprink 1 Cap PO BID 30 Days Pantoprazole Sodium (Pantoprazole Sodium) 40 Mg Tablet.dr 40 Mg PO DAILYAC 30 Days Dok (Docusate Sodium) 100 Mg Capsule 100 Mg PO PRN BID PRN 30 Days Klor-Con M20 (Potassium Chloride) 20 Meq Tab.er.prt 20 Meq PO DAILYWBKFT 14 Days Proair Hfa (Albuterol Sulfate) 8.5 Gm Hfa.aer.ad 2.5 Mg NEB PRN Q4HRS PRN 14 Days Reported Clindamycin Hcl 300 Mg Capsule 600 Mg PO BID Lidocaine PATCH (Lidocaine) 1 Each Adh..patch 1 Each TP DAILY REMOVE AFTER 12 HOURS Lisinopril 5 Mg Tablet 1 Tab PO DAILY PRN Clonazepam 1 Mg Tablet 1 Mg PO BID [place] Carbonate 300 Mg Tablet 1 Tab PO BID Zanaflex (Tizanidine Hcl) 4 Mg Capsule 1 Cap PO TID PRN Janumet 50-1,000 Mg Tablet (Sitagliptin Phos/Metformin Hcl) 1 Each Tablet 1 Tab PO BID Doxepin Hcl 50 Mg Capsule 300 Mg PO HS Vitals/I & O Vital Sign - Last 24 Hours 11/01/19 11/01/19 11/01/19 11/01/19 10:00 11:00 11:33 12:00 Pulse 112 118 Resp 18 18 B/P (MAP) 128/75 (92) 99/70 (80) Pulse Ox 99 100 100 O2 Delivery Ventilator Ventilator Ventilator Mechanical Ventilator 11/01/19 11/01/19 11/01/19 11/01/19 12:00 13:00 13:19 14:30 Temp 100.7 100.7 Pulse 114 112 Resp 18 18 B/P (MAP) 104/76 (85) 82/61 (68) 96/61 (73) Pulse Ox 100 100 100 O2 Delivery Ventilator Ventilator Ventilator 11/01/19 11/01/19 11/01/19 11/01/19 15:00 16:00 16:00 16:46 Temp 100.4 100.4 Pulse 111 116 Resp 18 18 B/P (MAP) 99/76 (84) 94/71 (79) Pulse Ox 100 100 100 O2 Delivery Ventilator Ventilator Mechanical Ventilator Ventilator 11/01/19 11/01/19 11/01/19 11/01/19 17:00 18:00 19:00 20:00 Temp 99.3 99.3 Pulse 105 115 121 117 Resp 18 18 18 18 B/P (MAP) 112/82 (92) 105/63 (77) 118/81 (93) 96/72 (80) Pulse Ox 100 100 100 100 O2 Delivery Ventilator Ventilator Ventilator Ventilator 11/01/19 11/01/19 11/01/19 11/01/19 20:00 20:09 20:16 21:00 Pulse 112 Resp 20 B/P (MAP) 99/78 (85) Pulse Ox 100 100 100 O2 Delivery Mechanical Ventilator Ventilator Ventilator O2 Flow Rate 15.0 11/01/19 11/01/19 11/01/19 11/01/19 21:23 22:00 23:00 23:59 Pulse 109 110 Resp 19 18 B/P (MAP) 109/74 (86) 105/80 (88) Pulse Ox 100 100 100 O2 Delivery Ventilator Ventilator Mechanical Ventilator O2 Flow Rate 15.0 11/01/19 11/02/19 11/02/19 11/02/19 23:59 00:44 01:00 02:00 Temp 99.1 99.1 Pulse 108 119 123 Resp 18 18 18 B/P (MAP) 105/78 (87) 107/78 (88) 108/81 (90) Pulse Ox 100 100 100 100 O2 Delivery Ventilator Ventilator Ventilator Ventilator 11/02/19 11/02/19 11/02/19 11/02/19 03:00 03:57 04:00 04:00 Temp 101.0 101.0 Pulse 123 110 Resp 18 18 B/P (MAP) 103/81 (88) 101/76 (84) Pulse Ox 100 100 100 O2 Delivery Ventilator Ventilator Mechanical Ventilator Ventilator 11/02/19 11/02/19 11/02/19 11/02/19 05:00 06:00 07:00 08:00 Temp 100.1 100.1 Pulse 119 117 121 Resp 18 18 18 B/P (MAP) 106/81 (89) 108/77 (87) 101/73 (82) Pulse Ox 100 100 100 O2 Delivery Ventilator Ventilator Ventilator Mechanical Ventilator 11/02/19 11/02/19 11/02/19 11/02/19 08:00 08:12 08:16 09:04 Temp 101.0 101.0 Pulse 118 Resp 18 B/P (MAP) 105/70 (82) Pulse Ox 100 100 100 100 O2 Delivery Ventilator Ventilator Ventilator Ventilator Intake and Output 11/01/19 11/01/19 11/02/19 15:00 23:00 07:00 Intake Total 355 ml 3563 ml 1605 ml Output Total 790 ml 1175 ml 950 ml Balance -435 ml 2388 ml 655 ml Nutrition Consultation Dietary Evaluation: Recommendations by RD: Dietary education by RD, Increase Calorie Intake, PPN/TPN Comments: REC intiation of TPN within 24 - 48 hrs of intubation, recommend TPN per followin g dextrose, 75 g AA, 20 g lipids Expected Outcomes/Goals: Initiation of nutrition within 24 - 48 hrs of intubation Interpretation of weight loss: >7.5% in 3 months Malnutrition Findings: Food and Nutrition Intake (Sev: <50% est energy req 5days Weight Status: Appropriate Justicifation of Admission Dx: Justifications for Admission: Justification of Admission Dx: Yes Comminuty Aquired Pneumonia: Hemodynamic Instability Acute Renal Failure: RF Can't Be Managed Outpt Sepsis: Altered Mental Status DKA: DKA JAMAL MORRIS MD Nov 02, 2019 09:21
--- NOTE | 2019-11-02 10:34 | PDOC ---
Subjective: Subjective: Mother (who is a nurse) present. Reports vomiting at home since last discharge, couldn't swallow pills, also hurt to swallow. Objective: Objective: D/w nurse - stable GI-carnes. Tmax 101 On TPN. Vital Signs: Vital Signs Date Time Temp Pulse Resp B/P (MAP) Pulse Ox O2 Delivery O2 Flow Rate FiO2 11/02/19 10:00 100.7 110 18 112/79 (90) 96 Ventilator 100.7 11/01/19 21:23 15.0 Labs: Laboratory Tests Test 11/01/19 11:07 11/01/19 12:21 11/01/19 13:15 11/01/19 14:29 Glucose (Fingerstick) 189 mg/dL (70-99) 142 mg/dL (70-99) 141 mg/dL (70-99) 128 mg/dL (70-99) Test 11/01/19 15:58 11/01/19 19:18 11/01/19 20:20 11/01/19 23:24 Glucose (Fingerstick) 131 mg/dL (70-99) 115 mg/dL (70-99) 104 mg/dL (70-99) 198 mg/dL (70-99) Test 11/02/19 05:57 11/02/19 08:34 Glucose (Fingerstick) 265 mg/dL (70-99) 307 mg/dL (70-99) PE: GEN: intubated, appears chronically ill LUNGS: clear, vent HEART: mildly tachycardic ABD: quiet, soft NEURO/PSYCH: sedated A/P: BETA STREP GROUP B bacteremia, resp failure, DM Pancreatic pseudocyst/fluid collection Blood in OGT - resolved ACD -- Continue PPI. Will review swallowing issues noted by family prior to admission w/ Dr. Marrero. Justicifation of Admission Dx: Justifications for Admission: Justification of Admission Dx: Yes Comminuty Aquired Pneumonia: Hemodynamic Instability Acute Renal Failure: RF Can't Be Managed Outpt Sepsis: Altered Mental Status DKA: ADAN ESTRADA Nov 02, 2019 10:34
[2019-11-02 10:57] LABS: BILIRUBIN,URINE NEGATIVE (NEG); CLARITY,URINE CLEAR; COLOR,URINE YELLOW; NITRITE,URINE NEGATIVE (NEG); PH,URINE 6.5 (<5.0-8.0); PROTEIN,URINE NEGATIVE (NEG-TRACE); UROBILINOGEN,URINE 0.2 mg/dL (0.2 mg/dL)
[2019-11-02 11:28] LABS: BACTERIA,URINE 0 /HPF (0-FEW); SQUAMOUS EPITHELIAL CELL,UR OCC /LPF; YEAST,URINE PRESENT /HPF
--- NOTE | 2019-11-02 11:35 | PDOC ---
PULMONARY PROGRESS NOTES Subjective Patient sedated and on assist control ventilation uneventful night Vitals Vital Signs Date Time Temp Pulse Resp B/P (MAP) Pulse Ox O2 Delivery O2 Flow Rate FiO2 11/02/19 11:00 111 18 114/83 (93) 95 Ventilator 11/02/19 10:00 100.7 100.7 11/01/19 21:23 15.0 Lungs: Clear Cardiovascular: S1 Abdomen: Soft, Other Extremities: No Edema Skin: Warm Labs Laboratory Tests Test 10/31/19 12:09 10/31/19 14:04 10/31/19 15:39 10/31/19 15:40 Glucose (Fingerstick) 123 mg/dL (70-99) 109 mg/dL (70-99) 279 mg/dL (70-99) Sodium Level 142 mmol/L (136-145) Potassium Level 3.5 mmol/L (3.5-5.1) Chloride Level 108 mmol/L (98-107) Carbon Dioxide Level 21 mmol/L (21-32) Anion Gap 13 (6-14) Blood Urea Nitrogen 22 mg/dL (8-26) Creatinine 1.4 mg/dL (0.7-1.3) Estimated GFR (Cockcroft-Gault) 53.6 Glucose Level 311 mg/dL (70-99) Calcium Level 6.5 mg/dL (8.5-10.1) Phosphorus Level 3.8 mg/dL (2.6-4.7) Magnesium Level 1.6 mg/dL (1.8-2.4) Test 10/31/19 18:22 10/31/19 19:55 10/31/19 21:15 10/31/19 21:21 Glucose (Fingerstick) 248 mg/dL (70-99) 144 mg/dL (70-99) 101 mg/dL (70-99) Sodium Level 145 mmol/L (136-145) Potassium Level 3.0 mmol/L (3.5-5.1) Chloride Level 110 mmol/L (98-107) Carbon Dioxide Level 20 mmol/L (21-32) Anion Gap 15 (6-14) Blood Urea Nitrogen 21 mg/dL (8-26) Creatinine 1.4 mg/dL (0.7-1.3) Estimated GFR (Cockcroft-Gault) 53.6 Glucose Level 102 mg/dL (70-99) Calcium Level 6.9 mg/dL (8.5-10.1) Phosphorus Level 2.6 mg/dL (2.6-4.7) Magnesium Level 2.5 mg/dL (1.8-2.4) Test 10/31/19 22:54 11/01/19 00:13 11/01/19 01:25 11/01/19 01:30 Glucose (Fingerstick) 156 mg/dL (70-99) 133 mg/dL (70-99) 142 mg/dL (70-99) Sodium Level 143 mmol/L (136-145) Potassium Level 3.9 mmol/L (3.5-5.1) Chloride Level 110 mmol/L (98-107) Carbon Dioxide Level 23 mmol/L (21-32) Anion Gap 10 (6-14) Blood Urea Nitrogen 19 mg/dL (8-26) Creatinine 1.4 mg/dL (0.7-1.3) Estimated GFR (Cockcroft-Gault) 53.6 Glucose Level 147 mg/dL (70-99) Calcium Level 6.3 mg/dL (8.5-10.1) Phosphorus Level 2.3 mg/dL (2.6-4.7) Magnesium Level 2.1 mg/dL (1.8-2.4) Test 11/01/19 02:38 11/01/19 04:41 11/01/19 05:00 11/01/19 06:00 Glucose (Fingerstick) 143 mg/dL (70-99) 115 mg/dL (70-99) White Blood Count 6.3 x10^3/uL (4.0-11.0) Red Blood Count 3.94 x10^6/uL (4.30-5.70) Hemoglobin 9.7 g/dL (13.0-17.5) Hematocrit 29.4 % (39.0-53.0) Mean Corpuscular Volume 75 fL (79-100) Mean Corpuscular Hemoglobin 25 pg (25-35) Mean Corpuscular Hemoglobin Concent 33 g/dL (31-37) Red Cell Distribution Width 22.3 % (11.5-14.5) Platelet Count 144 x10^3/uL (140-400) Neutrophils (%) (Auto) 54 % (31-73) Lymphocytes (%) (Auto) 39 % (24-48) Monocytes (%) (Auto) 5 % (0-9) Eosinophils (%) (Auto) 1 % (0-3) Basophils (%) (Auto) 0 % (0-3) Neutrophils # (Auto) 3.4 x10^3/uL (1.8-7.7) Lymphocytes # (Auto) 2.5 x10^3/uL (1.0-4.8) Monocytes # (Auto) 0.3 x10^3/uL (0.0-1.1) Eosinophils # (Auto) 0.1 x10^3/uL (0.0-0.7) Basophils # (Auto) 0.0 x10^3/uL (0.0-0.2) Prothrombin Time 16.7 SEC (11.7-14.0) Prothromb Time International Ratio 1.4 (0.8-1.1) Sodium Level 144 mmol/L (136-145) Potassium Level 4.4 mmol/L (3.5-5.1) Chloride Level 111 mmol/L (98-107) Carbon Dioxide Level 21 mmol/L (21-32) Anion Gap 12 (6-14) Blood Urea Nitrogen 17 mg/dL (8-26) Creatinine 1.2 mg/dL (0.7-1.3) Estimated GFR (Cockcroft-Gault) 64.1 Glucose Level 103 mg/dL (70-99) Calcium Level 6.2 mg/dL (8.5-10.1) Phosphorus Level 2.7 mg/dL (2.6-4.7) Magnesium Level 1.9 mg/dL (1.8-2.4) Test 11/01/19 06:03 11/01/19 07:35 11/01/19 08:17 11/01/19 09:49 Glucose (Fingerstick) 92 mg/dL (70-99) 173 mg/dL (70-99) 284 mg/dL (70-99) O2 Saturation 98 % (92-99) Arterial Blood pH 7.47 (7.35-7.45) Arterial Blood pCO2 at Patient Temp 25 mmHg (35-46) Arterial Blood pO2 at Patient Temp 138 mmHg (75-108) Arterial Blood HCO3 18 mmol/L (21-28) Arterial Blood Base Excess -5 mmol/L (-3-3) FiO2 30% Test 11/01/19 11:07 11/01/19 11:15 11/01/19 12:21 11/01/19 13:15 Glucose (Fingerstick) 189 mg/dL (70-99) 142 mg/dL (70-99) 141 mg/dL (70-99) Sodium Level 141 mmol/L (136-145) Potassium Level 4.0 mmol/L (3.5-5.1) Chloride Level 110 mmol/L (98-107) Carbon Dioxide Level 17 mmol/L (21-32) Anion Gap 14 (6-14) Blood Urea Nitrogen 16 mg/dL (8-26) Creatinine 1.2 mg/dL (0.7-1.3) Estimated GFR (Cockcroft-Gault) 64.1 Glucose Level 254 mg/dL (70-99) Calcium Level 6.1 mg/dL (8.5-10.1) Phosphorus Level 2.4 mg/dL (2.6-4.7) Magnesium Level 1.8 mg/dL (1.8-2.4) Test 11/01/19 14:29 11/01/19 15:58 11/01/19 16:00 11/01/19 19:18 Glucose (Fingerstick) 128 mg/dL (70-99) 131 mg/dL (70-99) 115 mg/dL (70-99) Sodium Level 140 mmol/L (136-145) Potassium Level 4.2 mmol/L (3.5-5.1) Chloride Level 110 mmol/L (98-107) Carbon Dioxide Level 20 mmol/L (21-32) Anion Gap 10 (6-14) Blood Urea Nitrogen 14 mg/dL (8-26) Creatinine 1.1 mg/dL (0.7-1.3) Estimated GFR (Cockcroft-Gault) 70.9 Glucose Level 151 mg/dL (70-99) Calcium Level 6.1 mg/dL (8.5-10.1) Phosphorus Level 2.9 mg/dL (2.6-4.7) Magnesium Level 1.6 mg/dL (1.8-2.4) Test 11/01/19 20:20 11/01/19 23:24 7/24/20 05:57 11/02/19 06:00 Glucose (Fingerstick) 104 mg/dL (70-99) 198 mg/dL (70-99) 265 mg/dL (70-99) White Blood Count 6.8 x10^3/uL (4.0-11.0) Red Blood Count 3.86 x10^6/uL (4.30-5.70) Hemoglobin 9.3 g/dL (13.0-17.5) Hematocrit 29.1 % (39.0-53.0) Mean Corpuscular Volume 75 fL (79-100) Mean Corpuscular Hemoglobin 24 pg (25-35) Mean Corpuscular Hemoglobin Concent 32 g/dL (31-37) Red Cell Distribution Width 22.0 % (11.5-14.5) Platelet Count 114 x10^3/uL (140-400) Neutrophils (%) (Auto) 61 % (31-73) Lymphocytes (%) (Auto) 33 % (24-48) Monocytes (%) (Auto) 3 % (0-9) Eosinophils (%) (Auto) 3 % (0-3) Basophils (%) (Auto) 0 % (0-3) Neutrophils # (Auto) 4.1 x10^3/uL (1.8-7.7) Lymphocytes # (Auto) 2.3 x10^3/uL (1.0-4.8) Monocytes # (Auto) 0.2 x10^3/uL (0.0-1.1) Eosinophils # (Auto) 0.2 x10^3/uL (0.0-0.7) Basophils # (Auto) 0.0 x10^3/uL (0.0-0.2) Sodium Level 140 mmol/L (136-145) Potassium Level 4.9 mmol/L (3.5-5.1) Chloride Level 108 mmol/L (98-107) Carbon Dioxide Level 23 mmol/L (21-32) Anion Gap 9 (6-14) Blood Urea Nitrogen 14 mg/dL (8-26) Creatinine 1.0 mg/dL (0.7-1.3) Estimated GFR (Cockcroft-Gault) 79.1 Glucose Level 283 mg/dL (70-99) Calcium Level 6.6 mg/dL (8.5-10.1) Phosphorus Level 2.1 mg/dL (2.6-4.7) Magnesium Level 1.9 mg/dL (1.8-2.4) Triglycerides Level 133 mg/dL (0-150) Test 11/02/19 08:30 11/02/19 08:34 11/02/19 10:30 O2 Saturation 98 % (92-99) Arterial Blood pH 7.45 (7.35-7.45) Arterial Blood pH (Temp corrected) 7.42 Arterial Blood pCO2 at Patient Temp 31 mmHg (35-46) Arterial Blood pCO2 (Temp correct) 34 mmHg Arterial Blood pO2 at Patient Temp 132 mmHg (75-108) Arterial Blood pO2 (Temp corrected) 145 mmHg Arterial Blood HCO3 21 mmol/L (21-28) Arterial Blood Base Excess -3 mmol/L (-3-3) FiO2 30 Glucose (Fingerstick) 307 mg/dL (70-99) Urine Collection Type Unknown Urine Color Yellow Urine Clarity Clear Urine pH 6.5 (<5.0-8.0) Urine Specific [place] 1.020 (1.000-1.030) Urine Protein Negative mg/dL (NEG-TRACE) Urine Glucose (UA) >=1000 mg/dL (NEG) Urine Ketones (Stick) Negative mg/dL (NEG) Urine Blood Negative (NEG) Urine Nitrite Negative (NEG) Urine Bilirubin Negative (NEG) Urine Urobilinogen Dipstick 0.2 mg/dL (0.2 mg/dL) Urine Leukocyte Esterase Negative (NEG) Urine RBC 1-2 /HPF (0-2) Urine WBC 1-4 /HPF (0-4) Urine Squamous Epithelial Cells Occ /LPF Urine Bacteria 0 /HPF (0-FEW) Urine Yeast Present /HPF Laboratory Tests Test 11/01/19 12:21 11/01/19 13:15 11/01/19 14:29 11/01/19 15:58 Glucose (Fingerstick) 142 mg/dL (70-99) 141 mg/dL (70-99) 128 mg/dL (70-99) 131 mg/dL (70-99) Test 11/01/19 16:00 11/01/19 19:18 11/01/19 20:20 11/01/19 23:24 Sodium Level 140 mmol/L (136-145) Potassium Level 4.2 mmol/L (3.5-5.1) Chloride Level 110 mmol/L (98-107) Carbon Dioxide Level 20 mmol/L (21-32) Anion Gap 10 (6-14) Blood Urea Nitrogen 14 mg/dL (8-26) Creatinine 1.1 mg/dL (0.7-1.3) Estimated GFR (Cockcroft-Gault) 70.9 Glucose Level 151 mg/dL (70-99) Calcium Level 6.1 mg/dL (8.5-10.1) Phosphorus Level 2.9 mg/dL (2.6-4.7) Magnesium Level 1.6 mg/dL (1.8-2.4) Glucose (Fingerstick) 115 mg/dL (70-99) 104 mg/dL (70-99) 198 mg/dL (70-99) Test 11/02/19 05:57 11/02/19 06:00 11/02/19 08:30 11/02/19 08:34 Glucose (Fingerstick) 265 mg/dL (70-99) 307 mg/dL (70-99) White Blood Count 6.8 x10^3/uL (4.0-11.0) Red Blood Count 3.86 x10^6/uL (4.30-5.70) Hemoglobin 9.3 g/dL (13.0-17.5) Hematocrit 29.1 % (39.0-53.0) Mean Corpuscular Volume 75 fL (79-100) Mean Corpuscular Hemoglobin 24 pg (25-35) Mean Corpuscular Hemoglobin Concent 32 g/dL (31-37) Red Cell Distribution Width 22.0 % (11.5-14.5) Platelet Count 114 x10^3/uL (140-400) Neutrophils (%) (Auto) 61 % (31-73) Lymphocytes (%) (Auto) 33 % (24-48) Monocytes (%) (Auto) 3 % (0-9) Eosinophils (%) (Auto) 3 % (0-3) Basophils (%) (Auto) 0 % (0-3) Neutrophils # (Auto) 4.1 x10^3/uL (1.8-7.7) Lymphocytes # (Auto) 2.3 x10^3/uL (1.0-4.8) Monocytes # (Auto) 0.2 x10^3/uL (0.0-1.1) Eosinophils # (Auto) 0.2 x10^3/uL (0.0-0.7) Basophils # (Auto) 0.0 x10^3/uL (0.0-0.2) Sodium Level 140 mmol/L (136-145) Potassium Level 4.9 mmol/L (3.5-5.1) Chloride Level 108 mmol/L (98-107) Carbon Dioxide Level 23 mmol/L (21-32) Anion Gap 9 (6-14) Blood Urea Nitrogen 14 mg/dL (8-26) Creatinine 1.0 mg/dL (0.7-1.3) Estimated GFR (Cockcroft-Gault) 79.1 Glucose Level 283 mg/dL (70-99) Calcium Level 6.6 mg/dL (8.5-10.1) Phosphorus Level 2.1 mg/dL (2.6-4.7) Magnesium Level 1.9 mg/dL (1.8-2.4) Triglycerides Level 133 mg/dL (0-150) O2 Saturation 98 % (92-99) Arterial Blood pH 7.45 (7.35-7.45) Arterial Blood pH (Temp corrected) 7.42 Arterial Blood pCO2 at Patient Temp 31 mmHg (35-46) Arterial Blood pCO2 (Temp correct) 34 mmHg Arterial Blood pO2 at Patient Temp 132 mmHg (75-108) Arterial Blood pO2 (Temp corrected) 145 mmHg Arterial Blood HCO3 21 mmol/L (21-28) Arterial Blood Base Excess -3 mmol/L (-3-3) FiO2 30 Test 11/02/19 10:30 Urine Collection Type Unknown Urine Color Yellow Urine Clarity Clear Urine pH 6.5 (<5.0-8.0) Urine Specific [place] 1.020 (1.000-1.030) Urine Protein Negative mg/dL (NEG-TRACE) Urine Glucose (UA) >=1000 mg/dL (NEG) Urine Ketones (Stick) Negative mg/dL (NEG) Urine Blood Negative (NEG) Urine Nitrite Negative (NEG) Urine Bilirubin Negative (NEG) Urine Urobilinogen Dipstick 0.2 mg/dL (0.2 mg/dL) Urine Leukocyte Esterase Negative (NEG) Urine RBC 1-2 /HPF (0-2) Urine WBC 1-4 /HPF (0-4) Urine Squamous Epithelial Cells Occ /LPF Urine Bacteria 0 /HPF (0-FEW) Urine Yeast Present /HPF Medications Active Scripts Medications Dose Route/Sig Max Daily Dose Days Date Category Dose Instructions Humalog (Insulin Lispro) 100 Unit/1 Ml Insuln.pen 0 Units SQ QIDACHS 14 09/16/19 Rx Culturelle (Lactobacillus Rhamnosus Gg) 1 Each Cap.sprink 1 Cap PO BID 30 09/16/19 Rx Pantoprazole Sodium (Pantoprazole Sodium) 40 Mg Tablet.dr 40 Mg PO DAILYAC 30 09/16/19 Rx Dok (Docusate Sodium) 100 Mg Capsule 100 Mg PO PRN BID PRN 30 09/16/19 Rx Klor-Con M20 (Potassium Chloride) 20 Meq Tab.er.prt 20 Meq PO DAILYWBKFT 14 09/16/19 Rx Proair Hfa (Albuterol Sulfate) 8.5 Gm Hfa.aer.ad 2.5 Mg NEB PRN Q4HRS PRN 14 09/16/19 Rx Clindamycin Hcl 300 Mg Capsule 600 Mg PO BID 09/11/19 Reported Lidocaine PATCH (Lidocaine) 1 Each Adh..patch 1 Each TP DAILY 03/12/19 Reported REMOVE AFTER 12 HOURS Lisinopril 5 Mg Tablet 1 Tab PO DAILY PRN 03/12/19 Reported Clonazepam 1 Mg Tablet 1 Mg PO BID 03/12/19 Reported [place] Carbonate 300 Mg Tablet 1 Tab PO BID 08/08/18 Reported Zanaflex (Tizanidine Hcl) 4 Mg Capsule 1 Cap PO TID PRN 08/25/15 Reported Janumet 50-1,000 Mg Tablet (Sitagliptin Phos/Metformin Hcl) 1 Each Tablet 1 Tab PO BID 01/17/15 Reported Doxepin Hcl 50 Mg Capsule 300 Mg PO HS 01/17/15 Reported Comments cxr 10/31 reviewed. no ptx Impression . IMPRESSION: 1. Acute hypoxemic respiratory failure secondary to acute metabolic acidosis. 2. Diabetic ketoacidosis. 3. Septic shock. 4. Bacteremia, gram-positive cocci, 1/3 bottles. 5. Recent laparoscopic cholecystectomy. 6. Acute on chronic kidney injury. 7. COVID-19, suspect. 8. Tobacco dependent. 9. Chronic obstructive pulmonary disease, unknown FEV1. 10. Small left-sided pneumo small seen on ct abd, not seen on f/u cxr 10/31 11. New pseudocyst fluid collection, seen on CT abdomen, per GI. CT abdomen pelvis IMPRESSION: 1. Small moderate left pneumothorax, incompletely evaluated. 2. Interval development of a 6.3 cm pseudocyst along the pancreatic body. 3. Another 6 cm fluid collection along the medial aspect of the hepatic caudate lobe also likely reflects a pseudocyst. 4. Right colonic wall thickening. Correlate for colitis. 5. A rim calcified 10 mm mass along the left kidney medially may be a complicated cyst but is indeterminate. Sonographic follow-up could be performed in 6 months. Plan . Spoke with mother at the bedside AC mode ABG adequately compensated wean sedation spontaneous breathing trial in 24 hrs Follow GI input IV antibiotics Monitor blood sugars IV levo , wean dose Monitor H&H 10/31 chest x-ray shows no pneumothorax Total cumulative critical care time of 30 minutes, reviewing data, chest x-ray, labs, formulating a plan The above was discussed with the mother at the bedside, HAMMAD MORILLO MD Nov 02, 2019 11:35
[2019-11-02] MEDS: TPN PER PHARMACY MC PRN (12:04)
--- NOTE | 2019-11-02 12:15 | NUR ---
Pharmacy TPN Dosing Note S: FLORECITAYVONNEFLORECITAMarcelinaANASTACIA Edouard is a 49 year old M Currently receiving Central Continuous TPN started 11/01/19 B:Pertinent PMH: NPO, critical illness Height: 5 feet, 7 inches Weight: 84.0 kg Current diet: NPO LABS: Sodium: 140 Potassium: 4.9 Chloride: 108 Calcium: 6.6 Corrected Calcium: 8.04 Magnesium: 1.9 CO2: 23 SCr: 1 Glucose: 104-307 Albumin: 2.2 AST: 47 ALT: 38 TPN FORMULA: TPN TYPE: Central Continuous AMINO ACIDS: 75 gm DEXTROSE: 225 gm LIPIDS: 20 gm SODIUM CHLORIDE: - mEq SODIUM ACETATE: 70 mEq SODIUM PHOSPHATE: 18 mmol POTASSIUM CHLORIDE: 50 mEq POTASSIUM ACETATE: - mEq POTASSIUM PHOSPHATE: - mmol MAGNESIUM: 10 mEq CALCIUM: 10 mEq INSULIN: units MULTIPLE VITAMIN: 10 ml TRACE ELEMENTS: 1 ml(s) TPN PLAN: -Macros per collections rep rec's. -Phos low this AM at 2.1. 15 mmol sodium phos bolus given outside of TPN today. Potassium increased from 4 to 4.9. For these reasons will increase phos in TPN slightly and remove KPhos from TPN and change to sodium phos. Additionally, because changing to sodium phos will decrease sodium acetate concentration slightly to maintain about the same amount of sodium in TPN. -Insulin drip and additional insulin being given outside of TPN -BMP, Mag and Phos levels ordered for tomorrow with AM labs R: Continue TPN with adjustments to sodium acetate, increase in sodium phosphate and removal of potassium phosphate. Will monitor electrolytes, glucose, and tolerance to TPN. CHANDLER BRONSON [facility], 11/02/19 [id number]
[2019-11-02] MEDS: CLINDAMYCIN 600MG PREMIX 50 ML IV SCH ×2 (14:06→21:34)
--- NOTE | 2019-11-02 15:49 | NUR ---
SS following up with discharge planning. SS reviewed pt chart and discussed with pt RN. Pt remains on the vent at this time. Pt on IV Meropenem and Clindamycin. COVID19 negative. Pt on TPN. SS will continue to follow for discharge planning.
--- NOTE | 2019-11-02 16:10 | NUR ---
Patient transferred to room 107. Patient transferred without any issues. VSS upon getting settled in room.
[2019-11-02] MEDS ORDERED: AMINO ACID IV SCH ×10 (22:00)
[2019-11-02] MEDS ORDERED: DEXTROSE 70% IV SCH ×10 (22:00)
[2019-11-02] MEDS ORDERED: TOTAL PARENTERAL NUTRITION IV SCH ×10 (22:00)
[2019-11-02] MEDS ORDERED: [UNRECOGNIZED DRUG - OTHER] IV SCH ×10 (22:00)
[2019-11-03] VITALS (24 sets, daily range): BP systolic 95–121; BP diastolic 60–90
[2019-11-03] MEDS: MEROPENEM 500 MG in IV NORMAL SALINE 50ML 50 ML IV SCH ×5 (00:07→23:57)
[2019-11-03] MEDS: NOREPINEPHRINE VIAL 8 MG in IV DEXTROSE 5% 250 ML IV PRN (00:09)
[2019-11-03] MEDS: DEXMEDETOMIDINE 400 MCG in IV NORMAL SALINE 100ML 96 ML IV PRN ×2 (01:19→14:13)
[2019-11-03] MEDS: PANTOPRAZOLE IV PUSH 40 MG VIAL. IVP SCH ×2 (05:43→18:32)
[2019-11-03] MEDS: CLINDAMYCIN 600MG PREMIX 50 ML IV SCH ×3 (05:44→21:16)
[2019-11-03] MEDS: INSULIN LISPRO 300 UNITS/3 ML VIAL. SQ SCH ×4 (05:58→23:58)
[2019-11-03 06:19] LABS: CALCIUM 7.3 mg/dL (8.5-10.1); CREATININE 0.8 mg/dL (0.7-1.3); GFR 102.3; MAGNESIUM 1.8 mg/dL (1.8-2.4); POTASSIUM 4.3 mmol/L (3.5-5.1)
[2019-11-03 06:20] LABS: BASO % 0 % (0-3); EOS # 0.2 x10^3/uL (0.0-0.7); EOS % 3 % (0-3); HEMATOCRIT 26.9 % (39.0-53.0); HEMOGLOBIN 8.7 g/dL (13.0-17.5); LYMPH % 27 % (24-48); MEAN CORPUSCULAR HEMOGLOBIN 24 pg (25-35); MEAN CORPUSCULAR HGB CONC 32 g/dL (31-37); MEAN CORPUSCULAR VOLUME 75 fL (79-100); MONO # 0.3 x10^3/uL (0.0-1.1); MONO % 4 % (0-9); NEUT # 4.7 x10^3/uL (1.8-7.7); NEUT % 65 % (31-73); PLATELET COUNT 89 x10^3/uL (140-400); RED BLOOD COUNT 3.58 x10^6/uL (4.30-5.70); RED CELL DISTRIBUTION WIDTH 21.6 % (11.5-14.5); WHITE BLOOD COUNT 7.2 x10^3/uL (4.0-11.0)
--- NOTE | 2019-11-03 08:00 | PDOC ---
Infectious Disease Note Subjective: Subjective Patient intubated/sedated Low-dose pressors NG tube/ETT T-max 101 On TPN Vital Signs: Vital Signs Vital Signs Date Time Temp Pulse Resp B/P (MAP) Pulse Ox O2 Delivery O2 Flow Rate FiO2 11/03/19 07:49 18 100 Ventilator 11/03/19 07:00 102 104/72 (83) 11/03/19 04:00 98.3 98.3 11/02/19 20:24 15.0 Physical Exam: PHYSICAL EXAM GENERAL: Intubated, sedated. HEENT: Normocephalic, atraumatic, NGT and ETT NECK: Supple, no JVD, no lymphadenopathy, no thyromegaly. LUNGS: Decreased breath sounds at the bases, otherwise, clear. HEART: S1, S2, tachycardia. No murmurs. ABDOMEN: Soft, nontender, bowel sounds present. EXTREMITIES: No cyanosis, no clubbing, no edema. Negative Nestor's sign. MUSCULOSKELETAL: Previous left knee surgery. Incision scar intact. No effusion. No surrounding erythema, no fluctuance. Nestor's negative. DERMATOLOGIC: Warm, dry. No generalized rash. NEUROLOGIC: Sedated. PSYCHIATRIC: Sedated. LINES: Left central line looks clean. PIV looks clean. Medications: Inpatient Meds: Current Medications Medications (Trade) Dose Ordered Sig/Edilma Start Time Stop Time Status Last Admin Dose Admin Acetaminophen (Tylenol Supp) 650 mg PRN Q6HRS PRN 10/31/19 16:00 11/02/19 18:09 650 MG Atropine Sulfate (ATROPINE 0.5mg SYRINGE) 0.5 mg PRN Q5MIN PRN 10/30/19 15:00 Clindamycin Phosphate 50 ml @ 100 mls/hr Q8HRS 11/02/19 14:00 11/03/19 05:44 100 MLS/HR Daptomycin 540 mg/ Sodium Chloride 50 ml @ 100 mls/hr ONCE ONCE 10/30/19 22:00 10/30/19 22:29 DC 10/30/19 22:09 100 MLS/HR Dexmedetomidine HCl 400 mcg/ Sodium Chloride 100 ml @ 0 mls/hr CONT PRN 10/30/19 15:00 11/03/19 01:19 11.3 MLS/HR Dextrose (Dextrose 50%-Water Syringe) 12.5 gm PRN Q15MIN PRN 7/23/20 17:30 Dextrose/Sodium Chloride 1,000 ml @ 250 mls/hr Q4H 10/30/19 19:30 11/01/19 17:29 DC 11/01/19 12:40 250 MLS/HR Etomidate (Amidate) 20 mg 1X ONCE 10/30/19 10:30 10/30/19 10:32 DC 10/30/19 10:38 20 MG Fentanyl Citrate 30 ml @ 0 mls/hr CONT PRN 10/30/19 19:00 11/03/19 07:49 2.5 MLS/HR Fentanyl Citrate (Fentanyl 2ml Vial) 25 mcg PRN Q1HR PRN 10/30/19 15:00 UNV Info (Tpn Per Pharmacy) 1 each PRN DAILY PRN 11/01/19 11:00 11/02/19 12:04 1 EACH Insulin Glargine (Lantus Syringe) 20 unit BID 11/02/19 09:00 11/02/19 21:29 20 UNIT Insulin Human Lispro (HumaLOG) 0-7 UNITS Q6HRS 11/02/19 00:00 11/03/19 05:58 2 UNITS Insulin Human Regular 100 ml @ 0 mls/hr 1X ONCE 10/30/19 12:00 10/30/19 12:01 DC 10/30/19 12:55 9.7 MLS/HR Insulin Human Regular 100 unit/ Sodium Chloride 101 ml @ 0 mls/hr CONT PRN 10/31/19 03:15 11/01/19 14:58 2.02 MLS/HR Linezolid/Dextrose 300 ml @ 300 mls/hr Q12HR 10/31/19 14:00 11/02/19 08:50 DC 11/02/19 08:13 300 MLS/HR Lorazepam (Ativan Inj) 0.5 mg PRN Q2HRS PRN 10/30/19 15:00 UNV Magnesium Sulfate 100 ml @ 25 mls/hr 1X ONCE 11/01/19 18:00 11/01/19 21:59 DC 11/01/19 17:46 25 MLS/HR Meropenem 500 mg/ Sodium Chloride 50 ml @ 100 mls/hr Q6HRS 11/01/19 00:00 11/03/19 05:44 100 MLS/HR Midazolam HCl 100 ml @ 1 mls/hr CONT PRN 10/30/19 17:00 11/02/19 08:30 10 MLS/HR Midazolam HCl 50 mg/Sodium Chloride 50 ml @ 0 mls/hr 1X ONCE 10/30/19 10:30 10/30/19 10:31 UNV Norepinephrine Bitartrate 8 mg/ Dextrose 258 ml @ 17.554 mls/ hr CONT PRN 10/30/19 22:15 11/03/19 00:09 10.1 MLS/HR Ondansetron HCl (Zofran) 4 mg PRN Q8HRS PRN 10/30/19 12:30 10/31/19 12:29 DC Pantoprazole Sodium (PROTONIX VIAL for IV PUSH) 40 mg [id number] 10/31/19 18:00 11/03/19 05:43 40 MG Phytonadione (Vitamin K Ampule) 10 mg 1X ONCE 10/31/19 12:00 10/31/19 12:01 DC 10/31/19 12:29 10 MG Piperacillin Sod/ Tazobactam Sod 2.25 gm/Sodium Chloride 50 ml @ 100 mls/hr Q6HRS 10/31/19 00:00 10/31/19 14:01 DC 10/31/19 12:28 100 MLS/HR Piperacillin Sod/ Tazobactam Sod 3.375 gm/Sodium Chloride 50 ml @ 100 mls/hr Q6HRS 10/31/19 18:00 10/31/19 18:32 DC 10/31/19 18:06 100 MLS/HR Potassium Chloride/Water 100 ml @ 100 mls/hr Q1H 11/01/19 02:45 11/01/19 04:44 DC 11/01/19 03:45 100 MLS/HR Potassium Phosphate 13.6 mmol/Sodium Chloride 254.5333 ml @ 127.... 1X ONCE 11/01/19 13:00 11/01/19 14:59 DC 11/01/19 13:06 127.267 MLS/HR Potassium Phosphate 15 mmol/ Sodium Chloride 255 ml @ 62.5 mls/hr 1X ONCE 11/01/19 02:45 11/01/19 06:49 DC 11/01/19 02:48 62.5 MLS/HR Rocuronium [place] (Zemuron) 50 mg 1X ONCE 10/30/19 10:45 10/30/19 10:46 DC 10/30/19 10:45 50 MG Sodium Acetate 70 meq/Sodium Phosphate 18 mmol/ Potassium Chloride 50 meq/ Magnesium Sulfate 10 meq/Calcium Gluconate 10 meq/ Multivitamins 10 ml/Chromium/ Copper/Manganese/ Seleni/Zn 1 ml/ Total Parenteral Nutrition/Amino Acids/Dextrose/ Fat Emulsion Intravenous 1,512 ml @ 63 mls/hr TPN CONT 11/02/19 22:00 11/03/19 21:59 11/02/19 21:48 63 MLS/HR Sodium Acetate 90 meq/Potassium Chloride 50 meq/ Potassium Phosphate 13.6 mmol/Magnesium Sulfate 10 meq/ Calcium Gluconate 10 meq/ Multivitamins 10 ml/Chromium/ Copper/Manganese/ Seleni/Zn 1 ml/ Total Parenteral Nutrition/Amino Acids/Dextrose/ Fat Emulsion Intravenous 1,512 ml @ 63 mls/hr TPN CONT 11/01/19 22:00 11/02/19 21:59 DC 11/01/19 21:26 63 MLS/HR Sodium Chloride 1,000 ml @ 125 mls/hr Q8H 11/01/19 18:00 Hold 11/01/19 17:45 125 MLS/HR Sodium Phosphate 15 mmol/Sodium Chloride 105 ml @ 105 mls/hr 1X ONCE 11/02/19 09:00 11/02/19 09:59 DC 11/02/19 08:36 105 MLS/HR Succinylcholine Chloride (Anectine) 100 mg 1X ONCE 10/30/19 10:30 10/30/19 10:32 DC 10/30/19 10:38 100 MG Labs: Lab Laboratory Tests Test 11/02/19 08:30 11/02/19 08:34 11/02/19 10:30 11/02/19 12:38 O2 Saturation 98 % (92-99) Arterial Blood pH 7.45 (7.35-7.45) Arterial Blood pH (Temp corrected) 7.42 Arterial Blood pCO2 at Patient Temp 31 mmHg (35-46) Arterial Blood pCO2 (Temp correct) 34 mmHg Arterial Blood pO2 at Patient Temp 132 mmHg (75-108) Arterial Blood pO2 (Temp corrected) 145 mmHg Arterial Blood HCO3 21 mmol/L (21-28) Arterial Blood Base Excess -3 mmol/L (-3-3) FiO2 30 Glucose (Fingerstick) 307 mg/dL (70-99) 339 mg/dL (70-99) Urine Collection Type Unknown Urine Color Yellow Urine Clarity Clear Urine pH 6.5 (<5.0-8.0) Urine Specific [place] 1.020 (1.000-1.030) Urine Protein Negative mg/dL (NEG-TRACE) Urine Glucose (UA) >=1000 mg/dL (NEG) Urine Ketones (Stick) Negative mg/dL (NEG) Urine Blood Negative (NEG) Urine Nitrite Negative (NEG) Urine Bilirubin Negative (NEG) Urine Urobilinogen Dipstick 0.2 mg/dL (0.2 mg/dL) Urine Leukocyte Esterase Negative (NEG) Urine RBC 1-2 /HPF (0-2) Urine WBC 1-4 /HPF (0-4) Urine Squamous Epithelial Cells Occ /LPF Urine Bacteria 0 /HPF (0-FEW) Urine Yeast Present /HPF Test 11/02/19 18:12 11/02/19 23:41 11/03/19 05:58 11/03/19 06:00 Glucose (Fingerstick) 283 mg/dL (70-99) 261 mg/dL (70-99) 240 mg/dL (70-99) White Blood Count 7.2 x10^3/uL (4.0-11.0) Red Blood Count 3.58 x10^6/uL (4.30-5.70) Hemoglobin 8.7 g/dL (13.0-17.5) Hematocrit 26.9 % (39.0-53.0) Mean Corpuscular Volume 75 fL (79-100) Mean Corpuscular Hemoglobin 24 pg (25-35) Mean Corpuscular Hemoglobin Concent 32 g/dL (31-37) Red Cell Distribution Width 21.6 % (11.5-14.5) Platelet Count 89 x10^3/uL (140-400) Neutrophils (%) (Auto) 65 % (31-73) Lymphocytes (%) (Auto) 27 % (24-48) Monocytes (%) (Auto) 4 % (0-9) Eosinophils (%) (Auto) 3 % (0-3) Basophils (%) (Auto) 0 % (0-3) Neutrophils # (Auto) 4.7 x10^3/uL (1.8-7.7) Lymphocytes # (Auto) 2.0 x10^3/uL (1.0-4.8) Monocytes # (Auto) 0.3 x10^3/uL (0.0-1.1) Eosinophils # (Auto) 0.2 x10^3/uL (0.0-0.7) Basophils # (Auto) 0.0 x10^3/uL (0.0-0.2) Sodium Level 144 mmol/L (136-145) Potassium Level 4.3 mmol/L (3.5-5.1) Chloride Level 111 mmol/L (98-107) Carbon Dioxide Level 27 mmol/L (21-32) Anion Gap 6 (6-14) Blood Urea Nitrogen 13 mg/dL (8-26) Creatinine 0.8 mg/dL (0.7-1.3) Estimated GFR (Cockcroft-Gault) 102.3 Glucose Level 254 mg/dL (70-99) Calcium Level 7.3 mg/dL (8.5-10.1) Phosphorus Level 2.0 mg/dL (2.6-4.7) Magnesium Level 1.8 mg/dL (1.8-2.4) Objective: Assessment: Septic shock POA from strep group B bacteremia Group B strep bacteremia POA source likely GI TSS Encephalopathy present on admission Acute respiratory failure status post intubation in the ED, Pneumothorax stable Lactic acidosis. Likely factorial Diabetic ketoacidosis. Acute kidney injury with underlying CKD. Lymphopenia. Coagulopathy. Status post vitamin K Nausea and vomiting, chronically since last surgery with gallbladder. GI bleed Recent Pancreatitis, status post laparoscopic cholecystectomy on 09/14/2019.;now with pseudocyst/fluid collection Weight loss due to poor p.o. 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 Currently well healed. Hypertension. Bipolar disorder. Anemia Thrombocytopenia High BNP and troponin leak Intolerance to Daptomycin with nausea, tolerated it twice for weeks in the past Last year. on chronic suppressive clindamycin Plan: Plan of Care Continue meropenem and clindamycin (11/01) off linezolid f/u repeat blood culture Pulmonary ,hematology GI team following Monitor labs Continue supportive care. Critically ill Discussed with at bedside at length Discussed with nursing staff. KYLAH DOUGLASS MD Nov 03, 2019 08:00
[2019-11-03 08:46] LABS: BASE EXCESS ABG 1 mmol/L (-3-3); CORRECTED PCO2 ABG 34 mmHg; CORRECTED PH ABG 7.46; CORRECTED PO2 ABG 115 mmHg; HCO3 ABG 24 mmol/L (21-28); PCO2 ABG 34 mmHg (35-46); PO2 ABG 113 mmHg (75-108); SAT O2 ABG 98 % (92-99)
--- NOTE | 2019-11-03 09:10 | PDOC2 ---
CONSULT Date of Consult Date of Consult DATE: 11/03/19 TIME: 09:06 Reason for Consult Reason for Consult: Pancreatic cyst with sepsis Referring Physician Referring Physician: Linh Identification/Chief Complaint Chief Complaint Patient intubated and sedated Source Source: Caregiver, Chart review History of Present Illness Reason for Visit: 49-year-old male recently hospitalized with gallstone pancreatitis underwent cholecystectomy at that time early September returns now with overwhelming sepsis and pancreatic cyst likely early pseudocyst by CT scan. Patient currently intubated and sedated is at bedside Past Medical History Cardiovascular: HTN Heme/Onc: No pertinent hx Hepatobiliary: No pertinent hx Psych: No pertinent hx, Bipolar, Other Rheumatologic: No pertinent hx Endocrine: Hypothyroidism Past Surgical History Past Surgical History: Cholecystectomy, Total knee replacement Family History Family History: No Significant, High Cholestrol, Hypertension Social History <1 pack per day ALCOHOL: rare Drugs: None Current Problem List Problem List Problems Medical Problems: (1) DKA (diabetic ketoacidoses) Status: Acute (2) Hypokalemia Status: Acute (3) Respiratory failure Status: Acute (4) Severe sepsis Status: Acute (5) Suspected 2019-nCoV infection Status: Acute Current Medications Current Medications Current Medications Midazolam HCl 100 ml @ 1 mls/hr 1X ONCE IV Last administered on 10/30/19at 10:40; Start 10/30/19 at 10:30; Stop 11/01/19 at 08:11; Status DC Midazolam HCl 50 mg/Sodium Chloride 50 ml @ 0 mls/hr 1X ONCE IV ; Start 10/30/19 at 10:30; Stop 10/30/19 at 10:31; Status UNV Etomidate (Amidate) 20 mg 1X ONCE IV Last administered on 10/30/19at 10:38; Start 10/30/19 at 10:30; Stop 10/30/19 at 10:32; Status DC Succinylcholine Chloride (Anectine) 100 mg 1X ONCE IV Last administered on 10/30/19at 10:38; Start 10/30/19 at 10:30; Stop 10/30/19 at 10:32; Status DC Norepinephrine Bitartrate 8 mg/ Dextrose 258 ml @ 13.177 mls/ hr 1X ONCE IV Last administered on 10/30/19at 10:39; Start 10/30/19 at 10:25; Stop 10/31/19 at 05:59; Status DC Piperacillin Sod/ Tazobactam Sod 3.375 gm/Sodium Chloride 50 ml @ 100 mls/hr 1X ONCE IV Last administered on 10/30/19at 10:42; Start 10/30/19 at 11:00; Stop 10/30/19 at 11:29; Status DC Rocuronium [place] (Zemuron) 10 mg 1X ONCE IV ; Start 10/30/19 at 10:45; Stop 10/30/19 at 10:46; Status Cancel Sodium Chloride 1,000 ml @ 1,000 mls/hr 1X ONCE IV Last administered on 10/30/19at 10:43; Start 10/30/19 at 10:45; Stop 10/30/19 at 11:44; Status DC Sodium Chloride 1,000 ml @ 1,000 mls/hr 1X ONCE IV Last administered on 10/30/19at 10:43; Start 10/30/19 at 10:45; Stop 10/30/19 at 11:44; Status DC Rocuronium [place] (Zemuron) 50 mg 1X ONCE IV Last administered on 10/30/19at 10:45; Start 10/30/19 at 10:45; Stop 10/30/19 at 10:46; Status DC Potassium Chloride/Water 100 ml @ 100 mls/hr Q1H IV Last administered on 10/30/19at 12:56; Start 10/30/19 at 12:00; Stop 10/30/19 at 13:59; Status DC Insulin Human Regular 100 ml @ 0 mls/hr 1X ONCE IV Last administered on 10/30/19at 12:55; Start 10/30/19 at 12:00; Stop 10/30/19 at 12:01; Status DC Sodium Chloride 1,000 ml @ 1,000 mls/hr 1X ONCE IV Last administered on 10/30/19at 12:45; Start 10/30/19 at 12:15; Stop 10/30/19 at 13:14; Status DC Ondansetron HCl (Zofran) 4 mg PRN Q8HRS PRN IV NAUSEA/VOMITING; Start 10/30/19 at 12:30; Stop 10/31/19 at 12:29; Status DC Sodium Chloride 1,000 ml @ 125 mls/hr Q8H IV Last administered on 10/30/19at 15:20; Start 10/30/19 at 12:25; Stop 10/31/19 at 07:13; Status DC Dexmedetomidine HCl 400 mcg/ Sodium Chloride 100 ml @ 0 mls/hr CONT PRN IV SEE COMMENTS Last administered on 11/03/19at 01:19; Start 10/30/19 at 15:00 Fentanyl Citrate (Fentanyl 2ml Vial) 25 mcg PRN Q1HR PRN IV PAIN; Start 10/30/19 at 15:00; Status UNV Lorazepam (Ativan Inj) 0.5 mg PRN Q2HRS PRN IV AGITATION; Start 10/30/19 at 15:00; Status UNV Sodium Chloride 500 ml @ 500 mls/hr 1X PRN PRN IV COMMENTS; Start 10/30/19 at 15:00 Atropine Sulfate (ATROPINE 0.5mg SYRINGE) 0.5 mg PRN Q5MIN PRN IV SEE COMMENTS; Start 10/30/19 at 15:00 Midazolam HCl 100 ml @ 1 mls/hr CONT PRN IV SEE COMMENTS Last administered on 11/02/19at 08:30; Start 10/30/19 at 17:00 Pantoprazole Sodium (PROTONIX VIAL for IV PUSH) 40 mg DAILYAC IVP Last ad ministered on 10/31/19at 07:23; Start 10/31/19 at 07:30; Stop 10/31/19 at 11:55; Status DC Pantoprazole Sodium (PROTONIX VIAL for IV PUSH) 40 mg 1X ONCE IVP Last administered on 10/30/19at 22:00; Start 10/30/19 at 18:45; Stop 10/30/19 at 18:47; Status DC Phytonadione (Vitamin K Ampule) 5 mg 1X ONCE SQ Last administered on 10/30/19at 20:01; Start 10/30/19 at 18:45; Stop 10/30/19 at 18:47; Status DC Fentanyl Citrate 30 ml @ 0 mls/hr CONT PRN IV SEE PROTOCOL Last administered on 11/03/19at 07:49; Start 10/30/19 at 19:00 Dextrose/Sodium Chloride 1,000 ml @ 250 mls/hr Q4H IV Last administered on 11/01/19at 12:40; Start 10/30/19 at 19:30; Stop 11/01/19 at 17:29; Status DC Potassium Phosphate 13.6 mmol/Sodium Chloride 254.5333 ml @ 127.... Q2H IV Last administered on 10/30/19at 22:00; Start 10/30/19 at 20:00; Stop 10/30/19 at 23:59; Status DC Piperacillin Sod/ Tazobactam Sod 2.25 gm/Sodium Chloride 50 ml @ 100 mls/hr Q6HRS IV Last administered on 10/31/19at 12:28; Start 10/31/19 at 00:00; Stop 10/31/19 at 14:01; Status DC Daptomycin 540 mg/ Sodium Chloride 50 ml @ 100 mls/hr ONCE ONCE IV Last administered on 10/30/19at 22:09; Start 10/30/19 at 22:00; Stop 10/30/19 at 22:29; Status DC Norepinephrine Bitartrate 8 mg/ Dextrose 258 ml @ 17.554 mls/ hr CONT PRN IV PER PROTOCOL Last administered on 11/03/19at 00:09; Start 10/30/19 at 22:15 Potassium Chloride/Water 100 ml @ 100 mls/hr Q1H IV Last administered on 10/31/19at 01:30; Start 10/30/19 at 23:30; Stop 10/31/19 at 02:29; Status DC Dextrose (Dextrose 50%-Water Syringe) 25 gm PRN Q10MIN PRN IV HYPOGLYCEMIA Last administered on 10/31/19at 02:39; Start 10/31/19 at 02:30 Potassium Chloride/Water 100 ml @ 100 mls/hr Q1H IV Last administered on 10/31/19at 04:39; Start 10/31/19 at 03:30; Stop 10/31/19 at 05:29; Status DC Insulin Human Regular 100 unit/ Sodium Chloride 101 ml @ 0 mls/hr CONT PRN IV SEE I/O RECORD Last administered on 11/01/19at 14:58; Start 10/31/19 at 03:15 Potassium Chloride/Water 100 ml @ 100 mls/hr Q1H IV Last administered on 10/31/19at 08:27; Start 10/31/19 at 07:30; Stop 10/31/19 at 09:29; Status DC Potassium Phosphate 13.6 mmol/Sodium Chloride 254.5333 ml @ 127.... Q2H IV Last administered on 10/31/19at 13:18; Start 10/31/19 at 11:00; Stop 10/31/19 at 14:59; Status DC Pantoprazole Sodium (PROTONIX VIAL for IV PUSH) 40 mg [id number] IVP Last administered on 11/03/19at 05:43; Start 10/31/19 at 18:00 Phytonadione (Vitamin K Ampule) 10 mg 1X ONCE SQ Last administered on 10/31/19at 12:29; Start 10/31/19 at 12:00; Stop 10/31/19 at 12:01; Status DC Linezolid/Dextrose 300 ml @ 300 mls/hr Q12HR IV Last administered on 11/02/19at 08:13; Start 10/31/19 at 14:00; Stop 11/02/19 at 08:50; Status DC Piperacillin Sod/ Tazobactam Sod 3.375 gm/Sodium Chloride 50 ml @ 100 mls/hr Q6HRS IV Last administered on 10/31/19at 18:06; Start 10/31/19 at 18:00; Stop 10/31/19 at 18:32; Status DC Acetaminophen (Tylenol Supp) 650 mg PRN Q6HRS PRN IA MILD PAIN / TEMP > 100.3'F Last administered on 11/02/19at 18:09; Start 10/31/19 at 16:00 Potassium Chloride/Water 100 ml @ 100 mls/hr Q1H IV Last administered on 10/31/19at 19:07; Start 10/31/19 at 18:00; Stop 10/31/19 at 19:59; Status DC Magnesium Sulfate 100 ml @ 25 mls/hr 1X ONCE IV Last administered on 10/31/19at 18:07; Start 10/31/19 at 18:00; Stop 10/31/19 at 21:59; Status DC Meropenem 500 mg/ Sodium Chloride 50 ml @ 100 mls/hr Q6HRS IV Last administered on 11/03/19at 05:44; Start 11/01/19 at 00:00 Potassium Chloride/Water 100 ml @ 100 mls/hr Q1H IV Last administered on 10/31/19at 23:45; Start 10/31/19 at 22:00; Stop 10/31/19 at 23:59; Status DC Potassium Chloride/Water 100 ml @ 100 mls/hr Q1H IV Last administered on 11/01/19at 03:45; Start 11/01/19 at 02:45; Stop 11/01/19 at 04:44; Status DC Potassium Phosphate 15 mmol/ Sodium Chloride 255 ml @ 62.5 mls/hr 1X ONCE IV Last administered on 11/01/19at 02:48; Start 11/01/19 at 02:45; Stop 11/01/19 at 06:49; Status DC Potassium Phosphate 13.6 mmol/Sodium Chloride 254.5333 ml @ 127.... 1X ONCE IV Last administered on 11/01/19at 09:17; Start 11/01/19 at 09:00; Stop 11/01/19 at 10:59; Status DC Info (Tpn Per Pharmacy) 1 each PRN DAILY PRN MC SEE COMMENTS Last administered on 11/02/19at 12:04; Start 11/01/19 at 11:00 Sodium Acetate 90 meq/Potassium Chloride 50 meq/ Potassium Phosphate 13.6 mmol/Magnesium Sulfate 10 meq/ Calcium Gluconate 10 meq/ Multivitamins 10 ml/Chromium/ Copper/Manganese/ Seleni/Zn 1 ml/ Total Parenteral Nutrition/Amino Acids/Dextrose/ Fat Emulsion Intravenous 1,512 ml @ 63 mls/hr TPN CONT IV Last administered on 11/01/19at 21:26; Start 11/01/19 at 22:00; Stop 11/02/19 at 21:59; Status DC Potassium Phosphate 13.6 mmol/Sodium Chloride 254.5333 ml @ 127.... 1X ONCE IV Last administered on 11/01/19at 13:06; Start 11/01/19 at 13:00; Stop 11/01/19 at 14:59; Status DC Insulin Glargine (Lantus Syringe) 20 unit 1X ONCE SQ Last administered on 11/01/19at 17:45; Start 11/01/19 at 18:00; Stop 11/01/19 at 18:01; Status DC Insulin Glargine (Lantus Syringe) 20 unit BID SQ Last administered on 11/02/19at 21:29; Start 11/02/19 at 09:00 Insulin Human Lispro (HumaLOG) 0-7 UNITS Q6HRS SQ Last administered on 11/03/19at 05:58; Start 11/02/19 at 00:00 Dextrose (Dextrose 50%-Water Syringe) 12.5 gm PRN Q15MIN PRN IV SEE COMMENTS; Start 11/01/19 at 17:30 Magnesium Sulfate 100 ml @ 25 mls/hr 1X ONCE IV Last administered on 11/01/19at 17:46; Start 11/01/19 at 18:00; Stop 11/01/19 at 21:59; Status DC Sodium Chloride 1,000 ml @ 125 mls/hr Q8H IV Last administered on 11/01/19at 17:45; Start 11/01/19 at 18:00; Status Hold Sodium Phosphate 15 mmol/Sodium Chloride 105 ml @ 105 mls/hr 1X ONCE IV Last administered on 11/02/19at 08:36; Start 11/02/19 at 09:00; Stop 11/02/19 at 09:59; Status DC Clindamycin Phosphate 50 ml @ 100 mls/hr Q8HRS IV Last administered on 11/03/19at 05:44; Start 11/02/19 at 14:00 Sodium Acetate 70 meq/Sodium Phosphate 18 mmol/ Potassium Chloride 50 meq/ Magnesium Sulfate 10 meq/Calcium Gluconate 10 meq/ Multivitamins 10 ml/Chromium/ Copper/Manganese/ Seleni/Zn 1 ml/ Total Parenteral Nutrition/Amino Acids/Dextrose/ Fat Emulsion Intravenous 1,512 ml @ 63 mls/hr TPN CONT IV Last administered on 11/02/19at 21:48; Start 11/02/19 at 22:00; Stop 11/03/19 at 21:59 Active Scripts Active Humalog (Insulin Lispro) 100 Unit/1 Ml Insuln.pen 0 Units SQ QIDACHS 14 Days Culturelle (Lactobacillus Rhamnosus Gg) 1 Each Cap.sprink 1 Cap PO BID 30 Days Pantoprazole Sodium (Pantoprazole Sodium) 40 Mg Tablet.dr 40 Mg PO DAILYAC 30 Days Dok (Docusate Sodium) 100 Mg Capsule 100 Mg PO PRN BID PRN 30 Days Klor-Con M20 (Potassium Chloride) 20 Meq Tab.er.prt 20 Meq PO DAILYWBKFT 14 Days Proair Hfa (Albuterol Sulfate) 8.5 Gm Hfa.aer.ad 2.5 Mg NEB PRN Q4HRS PRN 14 Days Reported Clindamycin Hcl 300 Mg Capsule 600 Mg PO BID Lidocaine PATCH (Lidocaine) 1 Each Adh..patch 1 Each TP DAILY REMOVE AFTER 12 HOURS Lisinopril 5 Mg Tablet 1 Tab PO DAILY PRN Clonazepam 1 Mg Tablet 1 Mg PO BID [place] Carbonate 300 Mg Tablet 1 Tab PO BID Zanaflex (Tizanidine Hcl) 4 Mg Capsule 1 Cap PO TID PRN Janumet 50-1,000 Mg Tablet (Sitagliptin Phos/Metformin Hcl) 1 Each Tablet 1 Tab PO BID Doxepin Hcl 50 Mg Capsule 300 Mg PO HS Allergies Allergies: Coded Allergies: daptomycin (Verified Allergy, Intermediate, chills, nausea , 08/09/19) ketamine (Verified Allergy, Intermediate, 09/13/19) I S O L A T I O N *CONTACT* (Verified Allergy, Unknown, Unknown, 08/14/19) mrsa ROS Gastrointestinal: Yes Abdominal Pain Physical Exam General: Other (Sedated and intubated on ventilator) Heart: Regular rate Abdomen: Soft Extremities: Other (Mild generalized edema) Skin: No significant lesion Vitals VITALS Vital Signs Date Time Temp Pulse Resp B/P (MAP) Pulse Ox O2 Delivery O2 Flow Rate FiO2 11/03/19 08:32 100 Ventilator 11/03/19 08:00 99.4 105 18 111/84 (93) 99.4 11/02/19 20:24 15.0 Labs Labs Laboratory Tests Test 11/01/19 09:49 11/01/19 11:07 11/01/19 11:15 11/01/19 12:21 Glucose (Fingerstick) 284 mg/dL (70-99) 189 mg/dL (70-99) 142 mg/dL (70-99) Sodium Level 141 mmol/L (136-145) Potassium Level 4.0 mmol/L (3.5-5.1) Chloride Level 110 mmol/L (98-107) Carbon Dioxide Level 17 mmol/L (21-32) Anion Gap 14 (6-14) Blood Urea Nitrogen 16 mg/dL (8-26) Creatinine 1.2 mg/dL (0.7-1.3) Estimated GFR (Cockcroft-Gault) 64.1 Glucose Level 254 mg/dL (70-99) Calcium Level 6.1 mg/dL (8.5-10.1) Phosphorus Level 2.4 mg/dL (2.6-4.7) Magnesium Level 1.8 mg/dL (1.8-2.4) Test 11/01/19 13:15 11/01/19 14:29 11/01/19 15:58 11/01/19 16:00 Glucose (Fingerstick) 141 mg/dL (70-99) 128 mg/dL (70-99) 131 mg/dL (70-99) Sodium Level 140 mmol/L (136-145) Potassium Level 4.2 mmol/L (3.5-5.1) Chloride Level 110 mmol/L (98-107) Carbon Dioxide Level 20 mmol/L (21-32) Anion Gap 10 (6-14) Blood Urea Nitrogen 14 mg/dL (8-26) Creatinine 1.1 mg/dL (0.7-1.3) Estimated GFR (Cockcroft-Gault) 70.9 Glucose Level 151 mg/dL (70-99) Calcium Level 6.1 mg/dL (8.5-10.1) Phosphorus Level 2.9 mg/dL (2.6-4.7) Magnesium Level 1.6 mg/dL (1.8-2.4) Test 11/01/19 19:18 11/01/19 20:20 11/01/19 23:24 11/02/19 05:57 Glucose (Fingerstick) 115 mg/dL (70-99) 104 mg/dL (70-99) 198 mg/dL (70-99) 265 mg/dL (70-99) Test 11/02/19 06:00 11/02/19 08:30 11/02/19 08:34 11/02/19 10:30 White Blood Count 6.8 x10^3/uL (4.0-11.0) Red Blood Count 3.86 x10^6/uL (4.30-5.70) Hemoglobin 9.3 g/dL (13.0-17.5) Hematocrit 29.1 % (39.0-53.0) Mean Corpuscular Volume 75 fL (79-100) Mean Corpuscular Hemoglobin 24 pg (25-35) Mean Corpuscular Hemoglobin Concent 32 g/dL (31-37) Red Cell Distribution Width 22.0 % (11.5-14.5) Platelet Count 114 x10^3/uL (140-400) Neutrophils (%) (Auto) 61 % (31-73) Lymphocytes (%) (Auto) 33 % (24-48) Monocytes (%) (Auto) 3 % (0-9) Eosinophils (%) (Auto) 3 % (0-3) Basophils (%) (Auto) 0 % (0-3) Neutrophils # (Auto) 4.1 x10^3/uL (1.8-7.7) Lymphocytes # (Auto) 2.3 x10^3/uL (1.0-4.8) Monocytes # (Auto) 0.2 x10^3/uL (0.0-1.1) Eosinophils # (Auto) 0.2 x10^3/uL (0.0-0.7) Basophils # (Auto) 0.0 x10^3/uL (0.0-0.2) Sodium Level 140 mmol/L (136-145) Potassium Level 4.9 mmol/L (3.5-5.1) Chloride Level 108 mmol/L (98-107) Carbon Dioxide Level 23 mmol/L (21-32) Anion Gap 9 (6-14) Blood Urea Nitrogen 14 mg/dL (8-26) Creatinine 1.0 mg/dL (0.7-1.3) Estimated GFR (Cockcroft-Gault) 79.1 Glucose Level 283 mg/dL (70-99) Calcium Level 6.6 mg/dL (8.5-10.1) Phosphorus Level 2.1 mg/dL (2.6-4.7) Magnesium Level 1.9 mg/dL (1.8-2.4) Triglycerides Level 133 mg/dL (0-150) O2 Saturation 98 % (92-99) Arterial Blood pH 7.45 (7.35-7.45) Arterial Blood pH (Temp corrected) 7.42 Arterial Blood pCO2 at Patient Temp 31 mmHg (35-46) Arterial Blood pCO2 (Temp correct) 34 mmHg Arterial Blood pO2 at Patient Temp 132 mmHg (75-108) Arterial Blood pO2 (Temp corrected) 145 mmHg Arterial Blood HCO3 21 mmol/L (21-28) Arterial Blood Base Excess -3 mmol/L (-3-3) FiO2 30 Glucose (Fingerstick) 307 mg/dL (70-99) Urine Collection Type Unknown Urine Color Yellow Urine Clarity Clear Urine pH 6.5 (<5.0-8.0) Urine Specific [place] 1.020 (1.000-1.030) Urine Protein Negative mg/dL (NEG-TRACE) Urine Glucose (UA) >=1000 mg/dL (NEG) Urine Ketones (Stick) Negative mg/dL (NEG) Urine Blood Negative (NEG) Urine Nitrite Negative (NEG) Urine Bilirubin Negative (NEG) Urine Urobilinogen Dipstick 0.2 mg/dL (0.2 mg/dL) Urine Leukocyte Esterase Negative (NEG) Urine RBC 1-2 /HPF (0-2) Urine WBC 1-4 /HPF (0-4) Urine Squamous Epithelial Cells Occ /LPF Urine Bacteria 0 /HPF (0-FEW) Urine Yeast Present /HPF Test 11/02/19 12:38 11/02/19 18:12 11/02/19 23:41 11/03/19 05:58 Glucose (Fingerstick) 339 mg/dL (70-99) 283 mg/dL (70-99) 261 mg/dL (70-99) 240 mg/dL (70-99) Test 11/03/19 06:00 White Blood Count 7.2 x10^3/uL (4.0-11.0) Red Blood Count 3.58 x10^6/uL (4.30-5.70) Hemoglobin 8.7 g/dL (13.0-17.5) Hematocrit 26.9 % (39.0-53.0) Mean Corpuscular Volume 75 fL (79-100) Mean Corpuscular Hemoglobin 24 pg (25-35) Mean Corpuscular Hemoglobin Concent 32 g/dL (31-37) Red Cell Distribution Width 21.6 % (11.5-14.5) Platelet Count 89 x10^3/uL (140-400) Neutrophils (%) (Auto) 65 % (31-73) Lymphocytes (%) (Auto) 27 % (24-48) Monocytes (%) (Auto) 4 % (0-9) Eosinophils (%) (Auto) 3 % (0-3) Basophils (%) (Auto) 0 % (0-3) Neutrophils # (Auto) 4.7 x10^3/uL (1.8-7.7) Lymphocytes # (Auto) 2.0 x10^3/uL (1.0-4.8) Monocytes # (Auto) 0.3 x10^3/uL (0.0-1.1) Eosinophils # (Auto) 0.2 x10^3/uL (0.0-0.7) Basophils # (Auto) 0.0 x10^3/uL (0.0-0.2) Sodium Level 144 mmol/L (136-145) Potassium Level 4.3 mmol/L (3.5-5.1) Chloride Level 111 mmol/L (98-107) Carbon Dioxide Level 27 mmol/L (21-32) Anion Gap 6 (6-14) Blood Urea Nitrogen 13 mg/dL (8-26) Creatinine 0.8 mg/dL (0.7-1.3) Estimated GFR (Cockcroft-Gault) 102.3 Glucose Level 254 mg/dL (70-99) Calcium Level 7.3 mg/dL (8.5-10.1) Phosphorus Level 2.0 mg/dL (2.6-4.7) Magnesium Level 1.8 mg/dL (1.8-2.4) Laboratory Tests Test 11/02/19 10:30 11/02/19 12:38 11/02/19 18:12 11/02/19 23:41 Urine Collection Type Unknown Urine Color Yellow Urine Clarity Clear Urine pH 6.5 (<5.0-8.0) Urine Specific [place] 1.020 (1.000-1.030) Urine Protein Negative mg/dL (NEG-TRACE) Urine Glucose (UA) >=1000 mg/dL (NEG) Urine Ketones (Stick) Negative mg/dL (NEG) Urine Blood Negative (NEG) Urine Nitrite Negative (NEG) Urine Bilirubin Negative (NEG) Urine Urobilinogen Dipstick 0.2 mg/dL (0.2 mg/dL) Urine Leukocyte Esterase Negative (NEG) Urine RBC 1-2 /HPF (0-2) Urine WBC 1-4 /HPF (0-4) Urine Squamous Epithelial Cells Occ /LPF Urine Bacteria 0 /HPF (0-FEW) Urine Yeast Present /HPF Glucose (Fingerstick) 339 mg/dL (70-99) 283 mg/dL (70-99) 261 mg/dL (70-99) Test 11/03/19 05:58 11/03/19 06:00 Glucose (Fingerstick) 240 mg/dL (70-99) White Blood Count 7.2 x10^3/uL (4.0-11.0) Red Blood Count 3.58 x10^6/uL (4.30-5.70) Hemoglobin 8.7 g/dL (13.0-17.5) Hematocrit 26.9 % (39.0-53.0) Mean Corpuscular Volume 75 fL (79-100) Mean Corpuscular Hemoglobin 24 pg (25-35) Mean Corpuscular Hemoglobin Concent 32 g/dL (31-37) Red Cell Distribution Width 21.6 % (11.5-14.5) Platelet Count 89 x10^3/uL (140-400) Neutrophils (%) (Auto) 65 % (31-73) Lymphocytes (%) (Auto) 27 % (24-48) Monocytes (%) (Auto) 4 % (0-9) Eosinophils (%) (Auto) 3 % (0-3) Basophils (%) (Auto) 0 % (0-3) Neutrophils # (Auto) 4.7 x10^3/uL (1.8-7.7) Lymphocytes # (Auto) 2.0 x10^3/uL (1.0-4.8) Monocytes # (Auto) 0.3 x10^3/uL (0.0-1.1) Eosinophils # (Auto) 0.2 x10^3/uL (0.0-0.7) Basophils # (Auto) 0.0 x10^3/uL (0.0-0.2) Sodium Level 144 mmol/L (136-145) Potassium Level 4.3 mmol/L (3.5-5.1) Chloride Level 111 mmol/L (98-107) Carbon Dioxide Level 27 mmol/L (21-32) Anion Gap 6 (6-14) Blood Urea Nitrogen 13 mg/dL (8-26) Creatinine 0.8 mg/dL (0.7-1.3) Estimated GFR (Cockcroft-Gault) 102.3 Glucose Level 254 mg/dL (70-99) Calcium Level 7.3 mg/dL (8.5-10.1) Phosphorus Level 2.0 mg/dL (2.6-4.7) Magnesium Level 1.8 mg/dL (1.8-2.4) Images Images CT as in history of present illness Assessment/Plan Assessment/Plan Sepsis with respiratory failure Evolving pancreatic pseudocyst At this juncture treat medically as per infectious disease May need drainage of pancreatic cyst if condition fails to improve will follow JAMAL ARREDONDO MD Nov 03, 2019 09:10
[2019-11-03 09:11] LABS: FIO2 ABG 30
--- NOTE | 2019-11-03 09:35 | PDOC ---
PROGRESS NOTES Chief Complaint Chief Complaint impression Sepsis respiratory failure DKA Bacteremia, gram-positive cocci, 1/3 bottles. Recent laparoscopic cholecystectomy. Acute on chronic kidney injury. hypophosphatemia Elevated INR, likely secondary to DIC DM2 Small moderate left pneumothorax, incompletely evaluated. Interval development of a 6.3 cm pseudocyst along the pancreatic body. Another 6 cm fluid collection along the medial aspect of the hepatic caudate lobe also likely reflects a pseudocyst. Right colonic wall thickening. Correlate for colitis. rim calcified 10 mm mass along the left kidney medially may be a complicated cyst but is indeterminate. Sonographic follow-up could be performed in 6 months. severe protein-caloric malnutrition Plan Continue meropenem iv Start clindamycin iv DC linezolid Repeat blood culture Pulmonary ,hematology GI following Source of bacteremia remains unclear consult DR Alcantara consider TPN May need drainage of pancreatic cyst if condition fails to improve 38 min cc time SOURCE: BLOOD ENTR: 11/01/19-[address]: VISHAL KATZ III DO [facility]: RUTH DOUGLASS MD,ELIZABETH ROBERTS,KAMERON MAYORGA,KUNAL SHEA,BAMBI HAYNES,BRIANNE Santiago MD ORDERED: BCULT Procedure Result BLOOD CULTURE Final GRAM POSITIVE COCCI IN 1 OF 2 BOTTLES OF A SINGLE SET COLLECTED 11/01/19. CALLED TO DEMETRIA OLIVERA IN ICU 11/02/19 AT 0745 BY Jesus SCHROEDER. CULTURE HAS BEEN SENT FOR FURTHER IDENTIFICATION. Operative Note Operative Note Operative Note: Preoperative Diagnosis: Gallstone pancreatitis Postoperative Diagnosis: Same Procedure: Laparoscopic cholecystectomy with intraoperative cholangiogram Surgeons: Quinton Body Straightener: Aron WING Anesthesia: Gen. Estimated Blood Loss: 10 mL Specimen: Gallbladder to pathology Drains: None Complications: None Indications: The patient is a 49-year-old male who was admitted with prominent vomiting and abdominal pain. History of Present Illness History of Present Illness 11/03/2019 Patient seen and examined in ICU He is on the ventilator AC 18/500/30% FiO2, PEEP 5.3 Strange BSD NG tube intermittent suction remains critically ill Discussed with RN and patient's mother Chart reviewed Vitals Vitals Vital Signs Date Time Temp Pulse Resp B/P (MAP) Pulse Ox O2 Delivery O2 Flow Rate FiO2 11/03/19 09:00 106 16 110/80 (90) 100 Ventilator 11/03/19 08:00 99.4 99.4 11/02/19 20:24 15.0 Physical Exam Physical Exam GENERAL: Intubated, sedated. HEENT: Normocephalic, atraumatic, NGT and ETT NECK: Supple, no JVD, no lymphadenopathy, no thyromegaly. LUNGS: Decreased breath sounds at the bases, otherwise, clear. HEART: S1, S2, tachycardia. No murmurs. ABDOMEN: Soft, nontender, bowel sounds present. EXTREMITIES: No cyanosis, no clubbing, no edema. Negative Nestor's sign. MUSCULOSKELETAL: Previous left knee surgery. Incision scar intact. No effusion. No surrounding erythema, no fluctuance. Nestor's negative. DERMATOLOGIC: Warm, dry. No generalized rash. NEUROLOGIC: Sedated. PSYCHIATRIC: Sedated. LINES: Left central line looks clean. PIV looks clean. General: Cooperative, Other (Sedated and intubated on ventilator) Heart: Regular rate Lungs: Clear Abdomen: Soft Extremities: Other (Mild generalized edema) Skin: No significant lesion Labs LABS Material submitted: . gallbladder - GALLBLADDER AND CONTENTS . 01 Clinical history: . Cholelithiasis . 02 Diagnosis: Gallbladder, laparoscopic cholecystectomy: - Cholelithiasis. - Chronic cholecystitis. . ([facility]:mm; 09/17/2019) [facility] 09/17/2019 1039 Local . 02 Comment: There is no evidence of malignancy. . ([facility]:mm; 09/17/2019) . 02 Electronically signed: . Darnell Leon MD, Pathologist NPI- [id number] SEX: M EXAM STATUS: ADM IN ORD. PHYSICIAN: KYLAH DOUGLASS MD REASON: nausea and vomiting, recent lap itzel-PUI PROCEDURE: CT ABDOMEN PELVIS WO CONTRAST EXAM: CT ABDOMEN/PELVIS WITHOUT CONTRAST. HISTORY: Nausea and vomiting, recent cholecystectomy. TECHNIQUE: Computed tomography of the abdomen and pelvis was performed without intravenous contrast. One or more of the following individualized dose reduction techniques were utilized for this examination: 1. Automated exposure control. 2. Adjustment of the mA and/or kV according to patient size. 3. Use of iterative reconstruction technique. COMPARISON: 09/13/2019. FINDINGS: Lung windows through the visualized portions of the bases reveal a small to moderate left pneumothorax anteriorly. There is mild dependent atelectasis. A small amount of pneumoperitoneum is likely included in this small hiatus hernia.. Bone windows reveal no suspicious lesions. A nasogastric tube has its tip in the distal stomach. A fluid collection along the anterior aspect of the pancreatic body measures 6.3 x 4.2 cm and is consistent with a pseudocyst. It exerts mass effect on the body of the stomach. Another fluid collection along the medial aspect of the hepatic caudate lobe measures 5.7 x 3.0 cm and may reflect another pseudocyst. The gallbladder is surgically absent. The liver, spleen, and adrenal glands are unremarkable. There are no pathologically enlarged lymph nodes. The bladder is decompressed by a Strange catheter. There is mild wall thickening along the ascending colon. There is no small bowel obstruction. A rim calcified nodule medially along left renal interpolar region measures 10 x 7 mm. The right kidney is unremarkable. IMPRESSION: 1. Small moderate left pneumothorax, incompletely evaluated. 2. Interval development of a 6.3 cm pseudocyst along the pancreatic body. 3. Another 6 cm fluid collection along the medial aspect of the hepatic caudate lobe also likely reflects a pseudocyst. 4. Right colonic wall thickening. Correlate for colitis. 5. A rim calcified 10 mm mass along the left kidney medially may be a complicated cyst but is indeterminate. Sonographic follow-up could be performed in 6 months. These findings were called to Rosa by Valente Cox on 10/31/2019 at 12:45 PM. Electronically signed by: Aracelis Cox MD (10/31/2019 12:45 PM) [id number] DICTATED and SIGNED BY: ANGEL COX MD DATE: 10/31/191244 EXAM: PORTABLE CHEST 1V INDICATION: Reason: L pneumothorax 116 / Spl. Instructions: / History: . TECHNIQUE: Single view COMPARISON: 10/31/2019 chest x-ray FINDINGS: Patient remains intubated with ET tube terminating 5.[address]. Enteric tube remains present passing below the diaphragms. Left subclavian approach central venous catheter with the tip near the cavoatrial junction is present. The heart size is normal. The great vessels appear unremarkable. There is no hilar or mediastinal mass. The lungs are slightly lower in volume but otherwise clear.. There is no pleural effusion or pneumothorax. There are no significant osseous abnormalities. IMPRESSION: Stable lines and tubes with slightly lower lung volumes are otherwise no acute cardiopulmonary process. No pneumothorax shown on this exam. Electronically signed by: Davidson Yepez MD (11/01/2019 6:14 AM) [facility] DICTATED and SIGNED BY: DAVIDSON YEPEZ MD DATE: 11/01/19613 KUNAL MAYORGA MD, SANDRA Y APRN THOMPSON, MICHAEL F MD ORDERED: KEN CULT - LC Procedure Result BLOOD CULTURE LC Preliminary Preliminary GRAM POSITIVE COCCI FINAL ID= [STAPHYLOCOCCUS HAEMOLYTICUS] STAPHYLOCOCCUS HAEMOLYTICUS Unless otherwise specified, Testing Performed by: [address] [address] For Inquires, the Physician may contact the Microbiology department at [phone] Laboratory Tests Test 11/02/19 10:30 11/02/19 12:38 11/02/19 18:12 11/02/19 23:41 Urine Collection Type Unknown Urine Color Yellow Urine Clarity Clear Urine pH 6.5 (<5.0-8.0) Urine Specific [place] 1.020 (1.000-1.030) Urine Protein Negative mg/dL (NEG-TRACE) Urine Glucose (UA) >=1000 mg/dL (NEG) Urine Ketones (Stick) Negative mg/dL (NEG) Urine Blood Negative (NEG) Urine Nitrite Negative (NEG) Urine Bilirubin Negative (NEG) Urine Urobilinogen Dipstick 0.2 mg/dL (0.2 mg/dL) Urine Leukocyte Esterase Negative (NEG) Urine RBC 1-2 /HPF (0-2) Urine WBC 1-4 /HPF (0-4) Urine Squamous Epithelial Cells Occ /LPF Urine Bacteria 0 /HPF (0-FEW) Urine Yeast Present /HPF Glucose (Fingerstick) 339 mg/dL (70-99) 283 mg/dL (70-99) 261 mg/dL (70-99) Test 11/03/19 05:58 11/03/19 06:00 11/03/19 08:00 Glucose (Fingerstick) 240 mg/dL (70-99) White Blood Count 7.2 x10^3/uL (4.0-11.0) Red Blood Count 3.58 x10^6/uL (4.30-5.70) Hemoglobin 8.7 g/dL (13.0-17.5) Hematocrit 26.9 % (39.0-53.0) Mean Corpuscular Volume 75 fL (79-100) Mean Corpuscular Hemoglobin 24 pg (25-35) Mean Corpuscular Hemoglobin Concent 32 g/dL (31-37) Red Cell Distribution Width 21.6 % (11.5-14.5) Platelet Count 89 x10^3/uL (140-400) Neutrophils (%) (Auto) 65 % (31-73) Lymphocytes (%) (Auto) 27 % (24-48) Monocytes (%) (Auto) 4 % (0-9) Eosinophils (%) (Auto) 3 % (0-3) Basophils (%) (Auto) 0 % (0-3) Neutrophils # (Auto) 4.7 x10^3/uL (1.8-7.7) Lymphocytes # (Auto) 2.0 x10^3/uL (1.0-4.8) Monocytes # (Auto) 0.3 x10^3/uL (0.0-1.1) Eosinophils # (Auto) 0.2 x10^3/uL (0.0-0.7) Basophils # (Auto) 0.0 x10^3/uL (0.0-0.2) Sodium Level 144 mmol/L (136-145) Potassium Level 4.3 mmol/L (3.5-5.1) Chloride Level 111 mmol/L (98-107) Carbon Dioxide Level 27 mmol/L (21-32) Anion Gap 6 (6-14) Blood Urea Nitrogen 13 mg/dL (8-26) Creatinine 0.8 mg/dL (0.7-1.3) Estimated GFR (Cockcroft-Gault) 102.3 Glucose Level 254 mg/dL (70-99) Calcium Level 7.3 mg/dL (8.5-10.1) Phosphorus Level 2.0 mg/dL (2.6-4.7) Magnesium Level 1.8 mg/dL (1.8-2.4) O2 Saturation 98 % (92-99) Arterial Blood pH 7.47 (7.35-7.45) Arterial Blood pH (Temp corrected) 7.46 Arterial Blood pCO2 at Patient Temp 34 mmHg (35-46) Arterial Blood pCO2 (Temp correct) 34 mmHg Arterial Blood pO2 at Patient Temp 113 mmHg (75-108) Arterial Blood pO2 (Temp corrected) 115 mmHg Arterial Blood HCO3 24 mmol/L (21-28) Arterial Blood Base Excess 1 mmol/L (-3-3) FiO2 30 Assessment and Plan Assessmemt and Plan Problems Medical Problems: (1) DKA (diabetic ketoacidoses) Status: Acute (2) Hypokalemia Status: Acute (3) Respiratory failure Status: Acute (4) Severe sepsis Status: Acute (5) Suspected 2019-nCoV infection Status: Acute Comment Review of Relevant I have reviewed the following items blaze (where applicable) has been applied. Labs Laboratory Tests Test 11/01/19 09:49 11/01/19 11:07 11/01/19 11:15 11/01/19 12:21 Glucose (Fingerstick) 284 mg/dL (70-99) 189 mg/dL (70-99) 142 mg/dL (70-99) Sodium Level 141 mmol/L (136-145) Potassium Level 4.0 mmol/L (3.5-5.1) Chloride Level 110 mmol/L (98-107) Carbon Dioxide Level 17 mmol/L (21-32) Anion Gap 14 (6-14) Blood Urea Nitrogen 16 mg/dL (8-26) Creatinine 1.2 mg/dL (0.7-1.3) Estimated GFR (Cockcroft-Gault) 64.1 Glucose Level 254 mg/dL (70-99) Calcium Level 6.1 mg/dL (8.5-10.1) Phosphorus Level 2.4 mg/dL (2.6-4.7) Magnesium Level 1.8 mg/dL (1.8-2.4) Test 11/01/19 13:15 11/01/19 14:29 11/01/19 15:58 11/01/19 16:00 Glucose (Fingerstick) 141 mg/dL (70-99) 128 mg/dL (70-99) 131 mg/dL (70-99) Sodium Level 140 mmol/L (136-145) Potassium Level 4.2 mmol/L (3.5-5.1) Chloride Level 110 mmol/L (98-107) Carbon Dioxide Level 20 mmol/L (21-32) Anion Gap 10 (6-14) Blood Urea Nitrogen 14 mg/dL (8-26) Creatinine 1.1 mg/dL (0.7-1.3) Estimated GFR (Cockcroft-Gault) 70.9 Glucose Level 151 mg/dL (70-99) Calcium Level 6.1 mg/dL (8.5-10.1) Phosphorus Level 2.9 mg/dL (2.6-4.7) Magnesium Level 1.6 mg/dL (1.8-2.4) Test 11/01/19 19:18 11/01/19 20:20 11/01/19 23:24 11/02/19 05:57 Glucose (Fingerstick) 115 mg/dL (70-99) 104 mg/dL (70-99) 198 mg/dL (70-99) 265 mg/dL (70-99) Test 11/02/19 06:00 11/02/19 08:30 11/02/19 08:34 11/02/19 10:30 White Blood Count 6.8 x10^3/uL (4.0-11.0) Red Blood Count 3.86 x10^6/uL (4.30-5.70) Hemoglobin 9.3 g/dL (13.0-17.5) Hematocrit 29.1 % (39.0-53.0) Mean Corpuscular Volume 75 fL (79-100) Mean Corpuscular Hemoglobin 24 pg (25-35) Mean Corpuscular Hemoglobin Concent 32 g/dL (31-37) Red Cell Distribution Width 22.0 % (11.5-14.5) Platelet Count 114 x10^3/uL (140-400) Neutrophils (%) (Auto) 61 % (31-73) Lymphocytes (%) (Auto) 33 % (24-48) Monocytes (%) (Auto) 3 % (0-9) Eosinophils (%) (Auto) 3 % (0-3) Basophils (%) (Auto) 0 % (0-3) Neutrophils # (Auto) 4.1 x10^3/uL (1.8-7.7) Lymphocytes # (Auto) 2.3 x10^3/uL (1.0-4.8) Monocytes # (Auto) 0.2 x10^3/uL (0.0-1.1) Eosinophils # (Auto) 0.2 x10^3/uL (0.0-0.7) Basophils # (Auto) 0.0 x10^3/uL (0.0-0.2) Sodium Level 140 mmol/L (136-145) Potassium Level 4.9 mmol/L (3.5-5.1) Chloride Level 108 mmol/L (98-107) Carbon Dioxide Level 23 mmol/L (21-32) Anion Gap 9 (6-14) Blood Urea Nitrogen 14 mg/dL (8-26) Creatinine 1.0 mg/dL (0.7-1.3) Estimated GFR (Cockcroft-Gault) 79.1 Glucose Level 283 mg/dL (70-99) Calcium Level 6.6 mg/dL (8.5-10.1) Phosphorus Level 2.1 mg/dL (2.6-4.7) Magnesium Level 1.9 mg/dL (1.8-2.4) Triglycerides Level 133 mg/dL (0-150) O2 Saturation 98 % (92-99) Arterial Blood pH 7.45 (7.35-7.45) Arterial Blood pH (Temp corrected) 7.42 Arterial Blood pCO2 at Patient Temp 31 mmHg (35-46) Arterial Blood pCO2 (Temp correct) 34 mmHg Arterial Blood pO2 at Patient Temp 132 mmHg (75-108) Arterial Blood pO2 (Temp corrected) 145 mmHg Arterial Blood HCO3 21 mmol/L (21-28) Arterial Blood Base Excess -3 mmol/L (-3-3) FiO2 30 Glucose (Fingerstick) 307 mg/dL (70-99) Urine Collection Type Unknown Urine Color Yellow Urine Clarity Clear Urine pH 6.5 (<5.0-8.0) Urine Specific [place] 1.020 (1.000-1.030) Urine Protein Negative mg/dL (NEG-TRACE) Urine Glucose (UA) >=1000 mg/dL (NEG) Urine Ketones (Stick) Negative mg/dL (NEG) Urine Blood Negative (NEG) Urine Nitrite Negative (NEG) Urine Bilirubin Negative (NEG) Urine Urobilinogen Dipstick 0.2 mg/dL (0.2 mg/dL) Urine Leukocyte Esterase Negative (NEG) Urine RBC 1-2 /HPF (0-2) Urine WBC 1-4 /HPF (0-4) Urine Squamous Epithelial Cells Occ /LPF Urine Bacteria 0 /HPF (0-FEW) Urine Yeast Present /HPF Test 11/02/19 12:38 11/02/19 18:12 11/02/19 23:41 11/03/19 05:58 Glucose (Fingerstick) 339 mg/dL (70-99) 283 mg/dL (70-99) 261 mg/dL (70-99) 240 mg/dL (70-99) Test 11/03/19 06:00 11/03/19 08:00 White Blood Count 7.2 x10^3/uL (4.0-11.0) Red Blood Count 3.58 x10^6/uL (4.30-5.70) Hemoglobin 8.7 g/dL (13.0-17.5) Hematocrit 26.9 % (39.0-53.0) Mean Corpuscular Volume 75 fL (79-100) Mean Corpuscular Hemoglobin 24 pg (25-35) Mean Corpuscular Hemoglobin Concent 32 g/dL (31-37) Red Cell Distribution Width 21.6 % (11.5-14.5) Platelet Count 89 x10^3/uL (140-400) Neutrophils (%) (Auto) 65 % (31-73) Lymphocytes (%) (Auto) 27 % (24-48) Monocytes (%) (Auto) 4 % (0-9) Eosinophils (%) (Auto) 3 % (0-3) Basophils (%) (Auto) 0 % (0-3) Neutrophils # (Auto) 4.7 x10^3/uL (1.8-7.7) Lymphocytes # (Auto) 2.0 x10^3/uL (1.0-4.8) Monocytes # (Auto) 0.3 x10^3/uL (0.0-1.1) Eosinophils # (Auto) 0.2 x10^3/uL (0.0-0.7) Basophils # (Auto) 0.0 x10^3/uL (0.0-0.2) Sodium Level 144 mmol/L (136-145) Potassium Level 4.3 mmol/L (3.5-5.1) Chloride Level 111 mmol/L (98-107) Carbon Dioxide Level 27 mmol/L (21-32) Anion Gap 6 (6-14) Blood Urea Nitrogen 13 mg/dL (8-26) Creatinine 0.8 mg/dL (0.7-1.3) Estimated GFR (Cockcroft-Gault) 102.3 Glucose Level 254 mg/dL (70-99) Calcium Level 7.3 mg/dL (8.5-10.1) Phosphorus Level 2.0 mg/dL (2.6-4.7) Magnesium Level 1.8 mg/dL (1.8-2.4) O2 Saturation 98 % (92-99) Arterial Blood pH 7.47 (7.35-7.45) Arterial Blood pH (Temp corrected) 7.46 Arterial Blood pCO2 at Patient Temp 34 mmHg (35-46) Arterial Blood pCO2 (Temp correct) 34 mmHg Arterial Blood pO2 at Patient Temp 113 mmHg (75-108) Arterial Blood pO2 (Temp corrected) 115 mmHg Arterial Blood HCO3 24 mmol/L (21-28) Arterial Blood Base Excess 1 mmol/L (-3-3) FiO2 30 Laboratory Tests Test 11/02/19 10:30 11/02/19 12:38 11/02/19 18:12 11/02/19 23:41 Urine Collection Type Unknown Urine Color Yellow Urine Clarity Clear Urine pH 6.5 (<5.0-8.0) Urine Specific [place] 1.020 (1.000-1.030) Urine Protein Negative mg/dL (NEG-TRACE) Urine Glucose (UA) >=1000 mg/dL (NEG) Urine Ketones (Stick) Negative mg/dL (NEG) Urine Blood Negative (NEG) Urine Nitrite Negative (NEG) Urine Bilirubin Negative (NEG) Urine Urobilinogen Dipstick 0.2 mg/dL (0.2 mg/dL) Urine Leukocyte Esterase Negative (NEG) Urine RBC 1-2 /HPF (0-2) Urine WBC 1-4 /HPF (0-4) Urine Squamous Epithelial Cells Occ /LPF Urine Bacteria 0 /HPF (0-FEW) Urine Yeast Present /HPF Glucose (Fingerstick) 339 mg/dL (70-99) 283 mg/dL (70-99) 261 mg/dL (70-99) Test 11/03/19 05:58 11/03/19 06:00 11/03/19 08:00 Glucose (Fingerstick) 240 mg/dL (70-99) White Blood Count 7.2 x10^3/uL (4.0-11.0) Red Blood Count 3.58 x10^6/uL (4.30-5.70) Hemoglobin 8.7 g/dL (13.0-17.5) Hematocrit 26.9 % (39.0-53.0) Mean Corpuscular Volume 75 fL (79-100) Mean Corpuscular Hemoglobin 24 pg (25-35) Mean Corpuscular Hemoglobin Concent 32 g/dL (31-37) Red Cell Distribution Width 21.6 % (11.5-14.5) Platelet Count 89 x10^3/uL (140-400) Neutrophils (%) (Auto) 65 % (31-73) Lymphocytes (%) (Auto) 27 % (24-48) Monocytes (%) (Auto) 4 % (0-9) Eosinophils (%) (Auto) 3 % (0-3) Basophils (%) (Auto) 0 % (0-3) Neutrophils # (Auto) 4.7 x10^3/uL (1.8-7.7) Lymphocytes # (Auto) 2.0 x10^3/uL (1.0-4.8) Monocytes # (Auto) 0.3 x10^3/uL (0.0-1.1) Eosinophils # (Auto) 0.2 x10^3/uL (0.0-0.7) Basophils # (Auto) 0.0 x10^3/uL (0.0-0.2) Sodium Level 144 mmol/L (136-145) Potassium Level 4.3 mmol/L (3.5-5.1) Chloride Level 111 mmol/L (98-107) Carbon Dioxide Level 27 mmol/L (21-32) Anion Gap 6 (6-14) Blood Urea Nitrogen 13 mg/dL (8-26) Creatinine 0.8 mg/dL (0.7-1.3) Estimated GFR (Cockcroft-Gault) 102.3 Glucose Level 254 mg/dL (70-99) Calcium Level 7.3 mg/dL (8.5-10.1) Phosphorus Level 2.0 mg/dL (2.6-4.7) Magnesium Level 1.8 mg/dL (1.8-2.4) O2 Saturation 98 % (92-99) Arterial Blood pH 7.47 (7.35-7.45) Arterial Blood pH (Temp corrected) 7.46 Arterial Blood pCO2 at Patient Temp 34 mmHg (35-46) Arterial Blood pCO2 (Temp correct) 34 mmHg Arterial Blood pO2 at Patient Temp 113 mmHg (75-108) Arterial Blood pO2 (Temp corrected) 115 mmHg Arterial Blood HCO3 24 mmol/L (21-28) Arterial Blood Base Excess 1 mmol/L (-3-3) FiO2 30 Microbiology 11/01/19 Blood Culture - Final, Complete 10/30/19 Urine Culture - Final, Complete Medications Current Medications Midazolam HCl 100 ml @ 1 mls/hr 1X ONCE IV Last administered on 10/30/19at 10:40; Start 10/30/19 at 10:30; Stop 11/01/19 at 08:11; Status DC Midazolam HCl 50 mg/Sodium Chloride 50 ml @ 0 mls/hr 1X ONCE IV ; Start 10/30/19 at 10:30; Stop 10/30/19 at 10:31; Status UNV Etomidate (Amidate) 20 mg 1X ONCE IV Last administered on 10/30/19at 10:38; Start 10/30/19 at 10:30; Stop 10/30/19 at 10:32; Status DC Succinylcholine Chloride (Anectine) 100 mg 1X ONCE IV Last administered on 10/30/19at 10:38; Start 10/30/19 at 10:30; Stop 10/30/19 at 10:32; Status DC Norepinephrine Bitartrate 8 mg/ Dextrose 258 ml @ 13.177 mls/ hr 1X ONCE IV Last administered on 10/30/19at 10:39; Start 10/30/19 at 10:25; Stop 10/31/19 at 05:59; Status DC Piperacillin Sod/ Tazobactam Sod 3.375 gm/Sodium Chloride 50 ml @ 100 mls/hr 1X ONCE IV Last administered on 10/30/19at 10:42; Start 10/30/19 at 11:00; Stop 10/30/19 at 11:29; Status DC Rocuronium [place] (Zemuron) 10 mg 1X ONCE IV ; Start 10/30/19 at 10:45; Stop 10/30/19 at 10:46; Status Cancel Sodium Chloride 1,000 ml @ 1,000 mls/hr 1X ONCE IV Last administered on 10/30/19at 10:43; Start 10/30/19 at 10:45; Stop 10/30/19 at 11:44; Status DC Sodium Chloride 1,000 ml @ 1,000 mls/hr 1X ONCE IV Last administered on 10/30/19at 10:43; Start 10/30/19 at 10:45; Stop 10/30/19 at 11:44; Status DC Rocuronium [place] (Zemuron) 50 mg 1X ONCE IV Last administered on 10/30/19at 10:45; Start 10/30/19 at 10:45; Stop 10/30/19 at 10:46; Status DC Potassium Chloride/Water 100 ml @ 100 mls/hr Q1H IV Last administered on 10/30/19at 12:56; Start 10/30/19 at 12:00; Stop 10/30/19 at 13:59; Status DC Insulin Human Regular 100 ml @ 0 mls/hr 1X ONCE IV Last administered on 10/30/19at 12:55; Start 10/30/19 at 12:00; Stop 10/30/19 at 12:01; Status DC Sodium Chloride 1,000 ml @ 1,000 mls/hr 1X ONCE IV Last administered on 10/30/19at 12:45; Start 10/30/19 at 12:15; Stop 10/30/19 at 13:14; Status DC Ondansetron HCl (Zofran) 4 mg PRN Q8HRS PRN IV NAUSEA/VOMITING; Start 10/30/19 at 12:30; Stop 10/31/19 at 12:29; Status DC Sodium Chloride 1,000 ml @ 125 mls/hr Q8H IV Last administered on 10/30/19at 15:20; Start 10/30/19 at 12:25; Stop 10/31/19 at 07:13; Status DC Dexmedetomidine HCl 400 mcg/ Sodium Chloride 100 ml @ 0 mls/hr CONT PRN IV SEE COMMENTS Last administered on 11/03/19at 01:19; Start 10/30/19 at 15:00 Fentanyl Citrate (Fentanyl 2ml Vial) 25 mcg PRN Q1HR PRN IV PAIN; Start 10/30/19 at 15:00; Status UNV Lorazepam (Ativan Inj) 0.5 mg PRN Q2HRS PRN IV AGITATION; Start 10/30/19 at 15:00; Status UNV Sodium Chloride 500 ml @ 500 mls/hr 1X PRN PRN IV COMMENTS; Start 10/30/19 at 15:00 Atropine Sulfate (ATROPINE 0.5mg SYRINGE) 0.5 mg PRN Q5MIN PRN IV SEE COMMENTS; Start 10/30/19 at 15:00 Midazolam HCl 100 ml @ 1 mls/hr CONT PRN IV SEE COMMENTS Last administered on 11/02/19at 08:30; Start 10/30/19 at 17:00 Pantoprazole Sodium (PROTONIX VIAL for IV PUSH) 40 mg DAILYAC IVP Last administered on 10/31/19at 07:23; Start 10/31/19 at 07:30; Stop 10/31/19 at 11:55; Status DC Pantoprazole Sodium (PROTONIX VIAL for IV PUSH) 40 mg 1X ONCE IVP Last admini stered on 10/30/19at 22:00; Start 10/30/19 at 18:45; Stop 10/30/19 at 18:47; Status DC Phytonadione (Vitamin K Ampule) 5 mg 1X ONCE SQ Last administered on 10/30/19at 20:01; Start 10/30/19 at 18:45; Stop 10/30/19 at 18:47; Status DC Fentanyl Citrate 30 ml @ 0 mls/hr CONT PRN IV SEE PROTOCOL Last administered on 11/03/19at 07:49; Start 10/30/19 at 19:00 Dextrose/Sodium Chloride 1,000 ml @ 250 mls/hr Q4H IV Last administered on 11/01/19at 12:40; Start 10/30/19 at 19:30; Stop 11/01/19 at 17:29; Status DC Potassium Phosphate 13.6 mmol/Sodium Chloride 254.5333 ml @ 127.... Q2H IV Last administered on 10/30/19at 22:00; Start 10/30/19 at 20:00; Stop 10/30/19 at 23:59; Status DC Piperacillin Sod/ Tazobactam Sod 2.25 gm/Sodium Chloride 50 ml @ 100 mls/hr Q6HRS IV Last administered on 10/31/19at 12:28; Start 10/31/19 at 00:00; Stop 10/31/19 at 14:01; Status DC Daptomycin 540 mg/ Sodium Chloride 50 ml @ 100 mls/hr ONCE ONCE IV Last administered on 10/30/19at 22:09; Start 10/30/19 at 22:00; Stop 10/30/19 at 22: 29; Status DC Norepinephrine Bitartrate 8 mg/ Dextrose 258 ml @ 17.554 mls/ hr CONT PRN IV PER PROTOCOL Last administered on 11/03/19at 00:09; Start 10/30/19 at 22:15 Potassium Chloride/Water 100 ml @ 100 mls/hr Q1H IV Last administered on 10/31/19at 01:30; Start 10/30/19 at 23:30; Stop 10/31/19 at 02:29; Status DC Dextrose (Dextrose 50%-Water Syringe) 25 gm PRN Q10MIN PRN IV HYPOGLYCEMIA Last administered on 10/31/19at 02:39; Start 10/31/19 at 02:30 Potassium Chloride/Water 100 ml @ 100 mls/hr Q1H IV Last administered on 10/31/19at 04:39; Start 10/31/19 at 03:30; Stop 10/31/19 at 05:29; Status DC Insulin Human Regular 100 unit/ Sodium Chloride 101 ml @ 0 mls/hr CONT PRN IV SEE I/O RECORD Last administered on 11/01/19at 14:58; Start 10/31/19 at 03:15 Potassium Chloride/Water 100 ml @ 100 mls/hr Q1H IV Last administered on 10/31/19at 08:27; Start 10/31/19 at 07:30; Stop 10/31/19 at 09:29; Status DC Potassium Phosphate 13.6 mmol/Sodium Chloride 254.5333 ml @ 127.... Q2H IV Last administered on 10/31/19at 13:18; Start 10/31/19 at 11:00; Stop 10/31/19 at 14:59; Status DC Pantoprazole Sodium (PROTONIX VIAL for IV PUSH) 40 mg [id number] IVP Last administered on 11/03/19at 05:43; Start 10/31/19 at 18:00 Phytonadione (Vitamin K Ampule) 10 mg 1X ONCE SQ Last administered on 10/31/19at 12:29; Start 10/31/19 at 12:00; Stop 10/31/19 at 12:01; Status DC Linezolid/Dextrose 300 ml @ 300 mls/hr Q12HR IV Last administered on 11/02/19at 08:13; Start 10/31/19 at 14:00; Stop 11/02/19 at 08:50; Status DC Piperacillin Sod/ Tazobactam Sod 3.375 gm/Sodium Chloride 50 ml @ 100 mls/hr Q6HRS IV Last administered on 10/31/19at 18:06; Start 10/31/19 at 18:00; Stop 10/31/19 at 18:32; Status DC Acetaminophen (Tylenol Supp) 650 mg PRN Q6HRS PRN CA MILD PAIN / TEMP > 100.3'F Last administered on 11/02/19at 18:09; Start 10/31/19 at 16:00 Potassium Chloride/Water 100 ml @ 100 mls/hr Q1H IV Last administered on 10/31/19at 19:07; Start 10/31/19 at 18:00; Stop 10/31/19 at 19:59; Status DC Magnesium Sulfate 100 ml @ 25 mls/hr 1X ONCE IV Last administered on 10/31/19at 18:07; Start 10/31/19 at 18:00; Stop 10/31/19 at 21:59; Status DC Meropenem 500 mg/ Sodium Chloride 50 ml @ 100 mls/hr Q6HRS IV Last administered on 11/03/19at 05:44; Start 11/01/19 at 00:00 Potassium Chloride/Water 100 ml @ 100 mls/hr Q1H IV Last administered on 10/31/19at 23:45; Start 10/31/19 at 22:00; Stop 10/31/19 at 23:59; Status DC Potassium Chloride/Water 100 ml @ 100 mls/hr Q1H IV Last administered on 11/01/19at 03:45; Start 11/01/19 at 02:45; Stop 11/01/19 at 04:44; Status DC Potassium Phosphate 15 mmol/ Sodium Chloride 255 ml @ 62.5 mls/hr 1X ONCE IV Last administered on 11/01/19at 02:48; Start 11/01/19 at 02:45; Stop 11/01/19 at 06:49; Status DC Potassium Phosphate 13.6 mmol/Sodium Chloride 254.5333 ml @ 127.... 1X ONCE IV Last administered on 11/01/19at 09:17; Start 11/01/19 at 09:00; Stop 11/01/19 at 10:59; Status DC Info (Tpn Per Pharmacy) 1 each PRN DAILY PRN MC SEE COMMENTS Last administered on 11/02/19at 12:04; Start 11/01/19 at 11:00 Sodium Acetate 90 meq/Potassium Chloride 50 meq/ Potassium Phosphate 13.6 mmol/Magnesium Sulfate 10 meq/ Calcium Gluconate 10 meq/ Multivitamins 10 ml/Chromium/ Copper/Manganese/ Seleni/Zn 1 ml/ Total Parenteral Nutrition/Amino Acids/Dextrose/ Fat Emulsion Intravenous 1,512 ml @ 63 mls/hr TPN CONT IV Last administered on 11/01/19at 21:26; Start 11/01/19 at 22:00; Stop 11/02/19 at 21:59; Status DC Potassium Phosphate 13.6 mmol/Sodium Chloride 254.5333 ml @ 127.... 1X ONCE IV Last administered on 11/01/19at 13:06; Start 11/01/19 at 13:00; Stop 11/01/19 at 14:59; Status DC Insulin Glargine (Lantus Syringe) 20 unit 1X ONCE SQ Last administered on 11/01/19at 17:45; Start 11/01/19 at 18:00; Stop 11/01/19 at 18:01; Status DC Insulin Glargine (Lantus Syringe) 20 unit BID SQ Last administered on 11/02/19at 21:29; Start 11/02/19 at 09:00 Insulin Human Lispro (HumaLOG) 0-7 UNITS Q6HRS SQ Last administered on 11/03/19at 05:58; Start 11/02/19 at 00:00 Dextrose (Dextrose 50%-Water Syringe) 12.5 gm PRN Q15MIN PRN IV SEE COMMENTS; Start 11/01/19 at 17:30 Magnesium Sulfate 100 ml @ 25 mls/hr 1X ONCE IV Last administered on 11/01/19at 17:46; Start 11/01/19 at 18:00; Stop 11/01/19 at 21:59; Status DC Sodium Chloride 1,000 ml @ 125 mls/hr Q8H IV Last administered on 11/01/19at 1 7:45; Start 11/01/19 at 18:00; Status Hold Sodium Phosphate 15 mmol/Sodium Chloride 105 ml @ 105 mls/hr 1X ONCE IV Last administered on 11/02/19at 08:36; Start 11/02/19 at 09:00; Stop 11/02/19 at 09:59; Status DC Clindamycin Phosphate 50 ml @ 100 mls/hr Q8HRS IV Last administered on 11/03/19at 05:44; Start 11/02/19 at 14:00 Sodium Acetate 70 meq/Sodium Phosphate 18 mmol/ Potassium Chloride 50 meq/ Magnesium Sulfate 10 meq/Calcium Gluconate 10 meq/ Multivitamins 10 ml/Chromium/ Copper/Manganese/ Seleni/Zn 1 ml/ Total Parenteral Nutrition/Amino Acids/Dextrose/ Fat Emulsion Intravenous 1,512 ml @ 63 mls/hr TPN CONT IV Last administered on 11/02/19at 21:48; Start 11/02/19 at 22:00; Stop 11/03/19 at 21:59 Active Scripts Active Humalog (Insulin Lispro) 100 Unit/1 Ml Insuln.pen 0 Units SQ QIDACHS 14 Days Culturelle (Lactobacillus Rhamnosus Gg) 1 Each Cap.sprink 1 Cap PO BID 30 Days Pantoprazole Sodium (Pantoprazole Sodium) 40 Mg Tablet.dr 40 Mg PO DAILYAC 30 Days Dok (Docusate Sodium) 100 Mg Capsule 100 Mg PO PRN BID PRN 30 Days Klor-Con M20 (Potassium Chloride) 20 Meq Tab.er.prt 20 Meq PO DAILYWBKFT 14 Days Proair Hfa (Albuterol Sulfate) 8.5 Gm Hfa.aer.ad 2.5 Mg NEB PRN Q4HRS PRN 14 Days Reported Clindamycin Hcl 300 Mg Capsule 600 Mg PO BID Lidocaine PATCH (Lidocaine) 1 Each Adh..patch 1 Each TP DAILY REMOVE AFTER 12 HOURS Lisinopril 5 Mg Tablet 1 Tab PO DAILY PRN Clonazepam 1 Mg Tablet 1 Mg PO BID [place] Carbonate 300 Mg Tablet 1 Tab PO BID Zanaflex (Tizanidine Hcl) 4 Mg Capsule 1 Cap PO TID PRN Janumet 50-1,000 Mg Tablet (Sitagliptin Phos/Metformin Hcl) 1 Each Tablet 1 Tab PO BID Doxepin Hcl 50 Mg Capsule 300 Mg PO HS Vitals/I & O Vital Sign - Last 24 Hours 11/02/19 11/02/19 11/02/19 11/02/19 10:00 11:00 12:00 12:00 Temp 100.7 100.4 100.7 100.4 Pulse 110 111 98 Resp 18 18 18 B/P (MAP) 112/79 (90) 114/83 (93) 109/79 (89) Pulse Ox 96 95 95 O2 Delivery Ventilator Ventilator Ventilator Mechanical Ventilator 11/02/19 11/02/19 11/02/19 11/02/19 12:01 13:00 14:00 15:00 Pulse 118 115 114 Resp 18 18 18 B/P (MAP) 105/83 (90) 82/64 (70) 102/78 (86) Pulse Ox 100 100 100 100 O2 Delivery Ventilator Ventilator Ventilator Ventilator 11/02/19 11/02/19 11/02/19 11/02/19 15:16 16:00 16:00 17:00 Temp 100.9 100.9 Pulse 104 110 Resp 18 18 B/P (MAP) 96/76 (83) 104/77 (86) Pulse Ox 100 100 100 O2 Delivery Ventilator Ventilator Mechanical Ventilator Ventilator 11/02/19 11/02/19 11/02/19 11/02/19 18:00 19:00 19:54 20:00 Pulse 102 103 Resp 18 18 B/P (MAP) 111/84 (93) 100/74 (83) Pulse Ox 100 100 100 O2 Delivery Ventilator Ventilator Mechanical Ventilator O2 Flow Rate 15.0 11/02/19 11/02/19 11/02/19 11/02/19 20:00 20:24 20:36 21:00 Temp 100.5 100.5 Pulse 103 101 Resp 18 18 B/P (MAP) 103/73 (83) 103/73 (83) Pulse Ox 100 100 100 100 O2 Delivery Ventilator Ventilator Ventilator O2 Flow Rate 15.0 11/02/19 11/02/19 11/02/19 11/03/19 22:00 23:00 23:50 00:00 Pulse 99 104 Resp 18 18 B/P (MAP) 82/63 (69) 84/65 (71) Pulse Ox 100 100 100 O2 Delivery Ventilator Ventilator Ventilator Mechanical Ventilator 11/03/19 11/03/19 11/03/19 11/03/19 00:00 01:00 02:00 03:00 Temp 97.7 97.7 Pulse 101 102 102 103 Resp 18 18 18 18 B/P (MAP) 95/60 (72) 111/81 (91) 105/80 (88) 104/75 (85) Pulse Ox 100 100 100 100 O2 Delivery Ventilator Ventilator Ventilator Ventilator 11/03/19 11/03/19 11/03/19 11/03/19 03:49 04:00 04:12 05:00 Temp 98.3 98.3 Pulse 108 101 Resp 18 18 B/P (MAP) 112/83 (93) 121/81 (94) Pulse Ox 100 100 100 O2 Delivery Ventilator Ventilator Mechanical Ventilator Ventilator 11/03/19 11/03/19 11/03/19 11/03/19 06:00 07:00 07:49 08:00 Temp 99.4 99.4 Pulse 101 102 105 Resp 18 18 18 18 B/P (MAP) 119/90 (100) 104/72 (83) 111/84 (93) Pulse Ox 100 100 100 100 O2 Delivery Ventilator Ventilator Ventilator Ventilator 11/03/19 11/03/19 11/03/19 11/03/19 08:00 08:23 08:32 09:00 Pulse 106 Resp 16 B/P (MAP) 110/80 (90) Pulse Ox 100 100 100 O2 Delivery Mechanical Ventilator Ventilator Ventilator Ventilator Intake and Output 11/02/19 11/02/19 11/03/19 15:00 23:00 07:00 Intake Total 350 ml 1424.6 ml 1029 ml Output Total 1915 ml 1280 ml 670 ml Balance -1565 ml 144.6 ml 359 ml Nutrition Consultation Dietary Evaluation: Recommendations by RD: Dietary education by RD, Increase Calorie Intake, PPN/TPN Comments: Continue w/TPN per following for nutrition support needs while intubated: 75g AA, 225g dextrose, 20g lipids Expected Outcomes/Goals: Initiation of nutrition within 24 - 48 hrs of intubation - met, new goal established New goal 11/01: TPN infusion to meet >65% est needs while intubated Interpretation of weight loss: >7.5% in 3 months Malnutrition Findings: Food and Nutrition Intake (Sev: <50% est energy req 5days Weight Status: Appropriate Justicifation of Admission Dx: Justifications for Admission: Justification of Admission Dx: Yes Comminuty Aquired Pneumonia: Hemodynamic Instability Acute Renal Failure: RF Can't Be Managed Outpt Sepsis: Altered Mental Status DKA: DKA JAMAL MORRIS MD Nov 03, 2019 09:35
[2019-11-03 09:52] LABS: ALBUMIN 1.5 g/dL (3.4-5.0); DIRECT BILIRUBIN 0.2 mg/dL (0.0-0.2); TOTAL BILIRUBIN 0.3 mg/dL (0.2-1.0); TOTAL PROTEIN 4.4 g/dL (6.4-8.2)
--- NOTE | 2019-11-03 10:21 | PDOC ---
PULMONARY PROGRESS NOTES Subjective Patient off sedation and on assist control ventilation. uneventful night Vitals Vital Signs Date Time Temp Pulse Resp B/P (MAP) Pulse Ox O2 Delivery O2 Flow Rate FiO2 11/03/19 09:00 106 16 110/80 (90) 100 Ventilator 11/03/19 08:00 99.4 99.4 11/02/19 20:24 15.0 Lungs: Clear Cardiovascular: S1 Abdomen: Soft, Other Extremities: No Edema Skin: Warm Labs Laboratory Tests Test 11/01/19 11:07 11/01/19 11:15 11/01/19 12:21 11/01/19 13:15 Glucose (Fingerstick) 189 mg/dL (70-99) 142 mg/dL (70-99) 141 mg/dL (70-99) Sodium Level 141 mmol/L (136-145) Potassium Level 4.0 mmol/L (3.5-5.1) Chloride Level 110 mmol/L (98-107) Carbon Dioxide Level 17 mmol/L (21-32) Anion Gap 14 (6-14) Blood Urea Nitrogen 16 mg/dL (8-26) Creatinine 1.2 mg/dL (0.7-1.3) Estimated GFR (Cockcroft-Gault) 64.1 Glucose Level 254 mg/dL (70-99) Calcium Level 6.1 mg/dL (8.5-10.1) Phosphorus Level 2.4 mg/dL (2.6-4.7) Magnesium Level 1.8 mg/dL (1.8-2.4) Test 11/01/19 14:29 11/01/19 15:58 11/01/19 16:00 11/01/19 19:18 Glucose (Fingerstick) 128 mg/dL (70-99) 131 mg/dL (70-99) 115 mg/dL (70-99) Sodium Level 140 mmol/L (136-145) Potassium Level 4.2 mmol/L (3.5-5.1) Chloride Level 110 mmol/L (98-107) Carbon Dioxide Level 20 mmol/L (21-32) Anion Gap 10 (6-14) Blood Urea Nitrogen 14 mg/dL (8-26) Creatinine 1.1 mg/dL (0.7-1.3) Estimated GFR (Cockcroft-Gault) 70.9 Glucose Level 151 mg/dL (70-99) Calcium Level 6.1 mg/dL (8.5-10.1) Phosphorus Level 2.9 mg/dL (2.6-4.7) Magnesium Level 1.6 mg/dL (1.8-2.4) Test 11/01/19 20:20 11/01/19 23:24 11/02/19 05:57 11/02/19 06:00 Glucose (Fingerstick) 104 mg/dL (70-99) 198 mg/dL (70-99) 265 mg/dL (70-99) White Blood Count 6.8 x10^3/uL (4.0-11.0) Red Blood Count 3.86 x10^6/uL (4.30-5.70) Hemoglobin 9.3 g/dL (13.0-17.5) Hematocrit 29.1 % (39.0-53.0) Mean Corpuscular Volume 75 fL (79-100) Mean Corpuscular Hemoglobin 24 pg (25-35) Mean Corpuscular Hemoglobin Concent 32 g/dL (31-37) Red Cell Distribution Width 22.0 % (11.5-14.5) Platelet Count 114 x10^3/uL (140-400) Neutrophils (%) (Auto) 61 % (31-73) Lymphocytes (%) (Auto) 33 % (24-48) Monocytes (%) (Auto) 3 % (0-9) Eosinophils (%) (Auto) 3 % (0-3) Basophils (%) (Auto) 0 % (0-3) Neutrophils # (Auto) 4.1 x10^3/uL (1.8-7.7) Lymphocytes # (Auto) 2.3 x10^3/uL (1.0-4.8) Monocytes # (Auto) 0.2 x10^3/uL (0.0-1.1) Eosinophils # (Auto) 0.2 x10^3/uL (0.0-0.7) Basophils # (Auto) 0.0 x10^3/uL (0.0-0.2) Sodium Level 140 mmol/L (136-145) Potassium Level 4.9 mmol/L (3.5-5.1) Chloride Level 108 mmol/L (98-107) Carbon Dioxide Level 23 mmol/L (21-32) Anion Gap 9 (6-14) Blood Urea Nitrogen 14 mg/dL (8-26) Creatinine 1.0 mg/dL (0.7-1.3) Estimated GFR (Cockcroft-Gault) 79.1 Glucose Level 283 mg/dL (70-99) Calcium Level 6.6 mg/dL (8.5-10.1) Phosphorus Level 2.1 mg/dL (2.6-4.7) Magnesium Level 1.9 mg/dL (1.8-2.4) Triglycerides Level 133 mg/dL (0-150) Test 11/02/19 08:30 11/02/19 08:34 11/02/19 10:30 11/02/19 12:38 O2 Saturation 98 % (92-99) Arterial Blood pH 7.45 (7.35-7.45) Arterial Blood pH (Temp corrected) 7.42 Arterial Blood pCO2 at Patient Temp 31 mmHg (35-46) Arterial Blood pCO2 (Temp correct) 34 mmHg Arterial Blood pO2 at Patient Temp 132 mmHg (75-108) Arterial Blood pO2 (Temp corrected) 145 mmHg Arterial Blood HCO3 21 mmol/L (21-28) Arterial Blood Base Excess -3 mmol/L (-3-3) FiO2 30 Glucose (Fingerstick) 307 mg/dL (70-99) 339 mg/dL (70-99) Urine Collection Type Unknown Urine Color Yellow Urine Clarity Clear Urine pH 6.5 (<5.0-8.0) Urine Specific [place] 1.020 (1.000-1.030) Urine Protein Negative mg/dL (NEG-TRACE) Urine Glucose (UA) >=1000 mg/dL (NEG) Urine Ketones (Stick) Negative mg/dL (NEG) Urine Blood Negative (NEG) Urine Nitrite Negative (NEG) Urine Bilirubin Negative (NEG) Urine Urobilinogen Dipstick 0.2 mg/dL (0.2 mg/dL) Urine Leukocyte Esterase Negative (NEG) Urine RBC 1-2 /HPF (0-2) Urine WBC 1-4 /HPF (0-4) Urine Squamous Epithelial Cells Occ /LPF Urine Bacteria 0 /HPF (0-FEW) Urine Yeast Present /HPF Test 11/02/19 18:12 11/02/19 23:41 11/03/19 05:58 11/03/19 06:00 Glucose (Fingerstick) 283 mg/dL (70-99) 261 mg/dL (70-99) 240 mg/dL (70-99) White Blood Count 7.2 x10^3/uL (4.0-11.0) Red Blood Count 3.58 x10^6/uL (4.30-5.70) Hemoglobin 8.7 g/dL (13.0-17.5) Hematocrit 26.9 % (39.0-53.0) Mean Corpuscular Volume 75 fL (79-100) Mean Corpuscular Hemoglobin 24 pg (25-35) Mean Corpuscular Hemoglobin Concent 32 g/dL (31-37) Red Cell Distribution Width 21.6 % (11.5-14.5) Platelet Count 89 x10^3/uL (140-400) Neutrophils (%) (Auto) 65 % (31-73) Lymphocytes (%) (Auto) 27 % (24-48) Monocytes (%) (Auto) 4 % (0-9) Eosinophils (%) (Auto) 3 % (0-3) Basophils (%) (Auto) 0 % (0-3) Neutrophils # (Auto) 4.7 x10^3/uL (1.8-7.7) Lymphocytes # (Auto) 2.0 x10^3/uL (1.0-4.8) Monocytes # (Auto) 0.3 x10^3/uL (0.0-1.1) Eosinophils # (Auto) 0.2 x10^3/uL (0.0-0.7) Basophils # (Auto) 0.0 x10^3/uL (0.0-0.2) Sodium Level 144 mmol/L (136-145) Potassium Level 4.3 mmol/L (3.5-5.1) Chloride Level 111 mmol/L (98-107) Carbon Dioxide Level 27 mmol/L (21-32) Anion Gap 6 (6-14) Blood Urea Nitrogen 13 mg/dL (8-26) Creatinine 0.8 mg/dL (0.7-1.3) Estimated GFR (Cockcroft-Gault) 102.3 Glucose Level 254 mg/dL (70-99) Calcium Level 7.3 mg/dL (8.5-10.1) Phosphorus Level 2.0 mg/dL (2.6-4.7) Magnesium Level 1.8 mg/dL (1.8-2.4) Total Bilirubin 0.3 mg/dL (0.2-1.0) Direct Bilirubin 0.2 mg/dL (0.0-0.2) Aspartate Amino Transf (AST/SGOT) 39 U/L (15-37) Alanine Aminotransferase (ALT/SGPT) 25 U/L (16-63) Alkaline Phosphatase 138 U/L (46-116) Total Protein 4.4 g/dL (6.4-8.2) Albumin 1.5 g/dL (3.4-5.0) Lipase 235 U/L (73-393) Test 11/03/19 08:00 O2 Saturation 98 % (92-99) Arterial Blood pH 7.47 (7.35-7.45) Arterial Blood pH (Temp corrected) 7.46 Arterial Blood pCO2 at Patient Temp 34 mmHg (35-46) Arterial Blood pCO2 (Temp correct) 34 mmHg Arterial Blood pO2 at Patient Temp 113 mmHg (75-108) Arterial Blood pO2 (Temp corrected) 115 mmHg Arterial Blood HCO3 24 mmol/L (21-28) Arterial Blood Base Excess 1 mmol/L (-3-3) FiO2 30 Laboratory Tests Test 11/02/19 10:30 11/02/19 12:38 11/02/19 18:12 11/02/19 23:41 Urine Collection Type Unknown Urine Color Yellow Urine Clarity Clear Urine pH 6.5 (<5.0-8.0) Urine Specific [place] 1.020 (1.000-1.030) Urine Protein Negative mg/dL (NEG-TRACE) Urine Glucose (UA) >=1000 mg/dL (NEG) Urine Ketones (Stick) Negative mg/dL (NEG) Urine Blood Negative (NEG) Urine Nitrite Negative (NEG) Urine Bilirubin Negative (NEG) Urine Urobilinogen Dipstick 0.2 mg/dL (0.2 mg/dL) Urine Leukocyte Esterase Negative (NEG) Urine RBC 1-2 /HPF (0-2) Urine WBC 1-4 /HPF (0-4) Urine Squamous Epithelial Cells Occ /LPF Urine Bacteria 0 /HPF (0-FEW) Urine Yeast Present /HPF Glucose (Fingerstick) 339 mg/dL (70-99) 283 mg/dL (70-99) 261 mg/dL (70-99) Test 11/03/19 05:58 11/03/19 06:00 11/03/19 08:00 Glucose (Fingerstick) 240 mg/dL (70-99) White Blood Count 7.2 x10^3/uL (4.0-11.0) Red Blood Count 3.58 x10^6/uL (4.30-5.70) Hemoglobin 8.7 g/dL (13.0-17.5) Hematocrit 26.9 % (39.0-53.0) Mean Corpuscular Volume 75 fL (79-100) Mean Corpuscular Hemoglobin 24 pg (25-35) Mean Corpuscular Hemoglobin Concent 32 g/dL (31-37) Red Cell Distribution Width 21.6 % (11.5-14.5) Platelet Count 89 x10^3/uL (140-400) Neutrophils (%) (Auto) 65 % (31-73) Lymphocytes (%) (Auto) 27 % (24-48) Monocytes (%) (Auto) 4 % (0-9) Eosinophils (%) (Auto) 3 % (0-3) Basophils (%) (Auto) 0 % (0-3) Neutrophils # (Auto) 4.7 x10^3/uL (1.8-7.7) Lymphocytes # (Auto) 2.0 x10^3/uL (1.0-4.8) Monocytes # (Auto) 0.3 x10^3/uL (0.0-1.1) Eosinophils # (Auto) 0.2 x10^3/uL (0.0-0.7) Basophils # (Auto) 0.0 x10^3/uL (0.0-0.2) Sodium Level 144 mmol/L (136-145) Potassium Level 4.3 mmol/L (3.5-5.1) Chloride Level 111 mmol/L (98-107) Carbon Dioxide Level 27 mmol/L (21-32) Anion Gap 6 (6-14) Blood Urea Nitrogen 13 mg/dL (8-26) Creatinine 0.8 mg/dL (0.7-1.3) Estimated GFR (Cockcroft-Gault) 102.3 Glucose Level 254 mg/dL (70-99) Calcium Level 7.3 mg/dL (8.5-10.1) Phosphorus Level 2.0 mg/dL (2.6-4.7) Magnesium Level 1.8 mg/dL (1.8-2.4) Total Bilirubin 0.3 mg/dL (0.2-1.0) Direct Bilirubin 0.2 mg/dL (0.0-0.2) Aspartate Amino Transf (AST/SGOT) 39 U/L (15-37) Alanine Aminotransferase (ALT/SGPT) 25 U/L (16-63) Alkaline Phosphatase 138 U/L (46-116) Total Protein 4.4 g/dL (6.4-8.2) Albumin 1.5 g/dL (3.4-5.0) Lipase 235 U/L (73-393) O2 Saturation 98 % (92-99) Arterial Blood pH 7.47 (7.35-7.45) Arterial Blood pH (Temp corrected) 7.46 Arterial Blood pCO2 at Patient Temp 34 mmHg (35-46) Arterial Blood pCO2 (Temp correct) 34 mmHg Arterial Blood pO2 at Patient Temp 113 mmHg (75-108) Arterial Blood pO2 (Temp corrected) 115 mmHg Arterial Blood HCO3 24 mmol/L (21-28) Arterial Blood Base Excess 1 mmol/L (-3-3) FiO2 30 Medications Active Scripts Medications Dose Route/Sig Max Daily Dose Days Date Category Dose Instructions Humalog (Insulin Lispro) 100 Unit/1 Ml Insuln.pen 0 Units SQ QIDACHS 09/16/19 Rx Culturelle (Lactobacillus Rhamnosus Gg) 1 Each Cap.sprink 1 Cap PO BID 09/16/19 Rx Pantoprazole Sodium (Pantoprazole Sodium) 40 Mg Tablet.dr 40 Mg PO DAILYAC 09/16/19 Rx Dok (Docusate Sodium) 100 Mg Capsule 100 Mg PO PRN BID PRN 30 09/16/19 Rx Klor-Con M20 (Potassium Chloride) 20 Meq Tab.er.prt 20 Meq PO DAILYWBKFT 09/16/19 Rx Proair Hfa (Albuterol Sulfate) 8.5 Gm Hfa.aer.ad 2.5 Mg NEB PRN Q4HRS PRN 09/16/19 Rx Clindamycin Hcl 300 Mg Capsule 600 Mg PO BID 09/11/19 Reported Lidocaine PATCH (Lidocaine) 1 Each Adh..patch 1 Each TP DAILY 03/12/19 Reported REMOVE AFTER 12 HOURS Lisinopril 5 Mg Tablet 1 Tab PO DAILY PRN 03/12/19 Reported Clonazepam 1 Mg Tablet 1 Mg PO BID 03/12/19 Reported [place] Carbonate 300 Mg Tablet 1 Tab PO BID 08/08/18 Reported Zanaflex (Tizanidine Hcl) 4 Mg Capsule 1 Cap PO TID PRN 08/25/15 Reported Janumet 50-1,000 Mg Tablet (Sitagliptin Phos/Metformin Hcl) 1 Each Tablet 1 Tab PO BID 01/17/15 Reported Doxepin Hcl 50 Mg Capsule 300 Mg PO HS 01/17/15 Reported Comments cxr 10/31 reviewed. no ptx Impression . IMPRESSION: 1. Acute hypoxemic respiratory failure secondary to acute metabolic acidosis. 2. Diabetic ketoacidosis. 3. Septic shock. 4. Bacteremia, gram-positive cocci, 1/3 bottles. 5. Recent laparoscopic cholecystectomy. 6. Acute on chronic kidney injury. 7. COVID-19, suspect. 8. Tobacco dependent. 9. Chronic obstructive pulmonary disease, unknown FEV1. 10. Small left-sided pneumo small seen on ct abd, not seen on f/u cxr 10/31 11. New pseudocyst fluid collection, seen on CT abdomen, per GI. CT abdomen pelvis IMPRESSION: 1. Small moderate left pneumothorax, incompletely evaluated. 2. Interval development of a 6.3 cm pseudocyst along the pancreatic body. 3. Another 6 cm fluid collection along the medial aspect of the hepatic caudate lobe also likely reflects a pseudocyst. 4. Right colonic wall thickening. Correlate for colitis. 5. A rim calcified 10 mm mass along the left kidney medially may be a complicated cyst but is indeterminate. Sonographic follow-up could be performed in 6 months. Plan . Spoke with at bedside ABG adequately compensated off sedation, not awake yet spontaneous breathing trial in 24 hrs once awake Follow GI input IV antibiotics Monitor blood sugars IV levo , wean dose Monitor H&H 10/31 chest x-ray shows no pneumothorax Total cumulative critical care time of 30 minutes, reviewing data, chest x-ray, labs, formulating a plan The above was discussed with the at the bedside, HAMMAD MORILLO MD Nov 03, 2019 10:21
[2019-11-03] MEDS: INSULIN GLARGINE SYRINGE. SQ SCH ×2 (10:46→21:16)
[2019-11-03] MEDS: TPN PER PHARMACY MC PRN ×2 (12:51→13:07)
--- NOTE | 2019-11-03 13:09 | NUR ---
Pharmacy TPN Dosing Note S: FLORECITAYVONNEFLORECITAANASTACIA is a 49 year old M Currently receiving Central Continuous TPN started 11/01/19 B:Pertinent PMH: NPO, critical illness Height: 5 feet, 7 inches Weight: 88.2 kg Current diet: NPO LABS: Sodium: 144 Potassium: 4.3 Chloride: 111 Calcium: 7.3 Corrected Calcium: 9.30 Magnesium: 1.8 CO2: 27 SCr: 0.8 Glucose: 240-254 Albumin: 1.5 AST: 39 ALT: 25 TPN FORMULA: TPN TYPE: Central Continuous AMINO ACIDS: 75 gm DEXTROSE: 225 gm LIPIDS: 20 gm SODIUM CHLORIDE: - mEq SODIUM ACETATE: 70 mEq SODIUM PHOSPHATE: 24 mmol POTASSIUM CHLORIDE: 50 mEq POTASSIUM ACETATE: - mEq POTASSIUM PHOSPHATE: - mmol MAGNESIUM: 16 mEq CALCIUM: 10 mEq INSULIN: units MULTIPLE VITAMIN: 10 ml TRACE ELEMENTS: 1 ml(s) TPN PLAN: Slightly increase magnesium and Na phos for low plasma mag, phos. Other labs stable, recheck in AM. R: Continue TPN ABOVE. Will monitor electrolytes, glucose, and tolerance to TPN. MICHAEL PEREIRA [facility], 11/03/19 [id number]
[2019-11-03] MEDS: ACETAMINOPHEN 650 MG SUPP.RECT. PR PRN (14:21)
[2019-11-03] MEDS ORDERED: AMINO ACID IV SCH ×10 (22:00)
[2019-11-03] MEDS ORDERED: TOTAL PARENTERAL NUTRITION IV SCH ×10 (22:00)
[2019-11-03] MEDS ORDERED: DEXTROSE 70% IV SCH ×10 (22:00)
[2019-11-03] MEDS ORDERED: [UNRECOGNIZED DRUG - OTHER] IV SCH ×10 (22:00)
[2019-11-04] VITALS (23 sets, daily range): BP systolic 90–146; BP diastolic 61–89
[2019-11-04] MEDS: DEXMEDETOMIDINE 400 MCG in IV NORMAL SALINE 100ML 96 ML IV PRN ×2 (00:01→06:04)
[2019-11-04] MEDS: ACETAMINOPHEN 650 MG SUPP.RECT. PR PRN (00:18)
[2019-11-04 05:22] LABS: BASO % 1 % (0-3); EOS # 0.2 x10^3/uL (0.0-0.7); EOS % 3 % (0-3); HEMATOCRIT 24.9 % (39.0-53.0); LYMPH # 1.5 x10^3/uL (1.0-4.8); LYMPH % 32 % (24-48); MEAN CORPUSCULAR HEMOGLOBIN 24 pg (25-35); MEAN CORPUSCULAR HGB CONC 32 g/dL (31-37); MEAN CORPUSCULAR VOLUME 75 fL (79-100); MONO # 0.5 x10^3/uL (0.0-1.1); MONO % 11 % (0-9); NEUT # 2.6 x10^3/uL (1.8-7.7); NEUT % 54 % (31-73); PLATELET COUNT 70 x10^3/uL (140-400); RED BLOOD COUNT 3.31 x10^6/uL (4.30-5.70); RED CELL DISTRIBUTION WIDTH 21.7 % (11.5-14.5); WHITE BLOOD COUNT 4.7 x10^3/uL (4.0-11.0)
[2019-11-04 05:44] LABS: ALBUMIN 1.5 g/dL (3.4-5.0); ALBUMIN/GLOBULIN RATIO 0.4 (1.0-1.7); CALCIUM 8.1 mg/dL (8.5-10.1); CREATININE 0.7 mg/dL (0.7-1.3); DIRECT BILIRUBIN 0.2 mg/dL (0.0-0.2); GFR 119.4; POTASSIUM 4.3 mmol/L (3.5-5.1); TOTAL BILIRUBIN 0.3 mg/dL (0.2-1.0); TOTAL PROTEIN 5.2 g/dL (6.4-8.2)
[2019-11-04] MEDS: CLINDAMYCIN 600MG PREMIX 50 ML IV SCH (06:05)
[2019-11-04] MEDS: MEROPENEM 500 MG in IV NORMAL SALINE 50ML 50 ML IV SCH ×4 (06:05→23:42)
[2019-11-04] MEDS: PANTOPRAZOLE IV PUSH 40 MG VIAL. IVP SCH (06:07)
[2019-11-04] MEDS: INSULIN LISPRO 300 UNITS/3 ML VIAL. SQ SCH ×4 (06:14→23:43)
--- NOTE | 2019-11-04 06:59 | PDOC ---
Infectious Disease Note Subjective: Subjective Patient intubated/sedated Remains febrile Off pressors since early a.m. NG tube/ETT On TPN Vital Signs: Vital Signs Vital Signs Date Time Temp Pulse Resp B/P (MAP) Pulse Ox O2 Delivery O2 Flow Rate FiO2 11/04/19 06:51 16 100 Ventilator 11/04/19 05:00 103 130/75 (93) 11/04/19 04:00 100.5 100.5 11/03/19 20:17 15.0 Physical Exam: PHYSICAL EXAM GENERAL: Intubated, sedated. HEENT: Normocephalic, atraumatic, NGT and ETT NECK: Supple, no JVD, no lymphadenopathy, no thyromegaly. LUNGS: Decreased breath sounds at the bases, otherwise, clear. HEART: S1, S2, tachycardia. No murmurs. ABDOMEN: Soft, nontender, bowel sounds present. EXTREMITIES: No cyanosis, no clubbing, no edema. Negative Nestor's sign. MUSCULOSKELETAL: Previous left knee surgery. Incision scar intact. No effusion. No surrounding erythema, no fluctuance. Nestor's negative. DERMATOLOGIC: Warm, dry. No generalized rash. NEUROLOGIC: Sedated. PSYCHIATRIC: Sedated. LINES: Left central line looks clean. PIV looks clean. Medications: Inpatient Meds: Current Medications Medications (Trade) Dose Ordered Sig/Edilma Start Time Stop Time Status Last Admin Dose Admin Acetaminophen (Tylenol Supp) 650 mg PRN Q6HRS PRN 10/31/19 16:00 11/04/19 00:18 650 MG Atropine Sulfate (ATROPINE 0.5mg SYRINGE) 0.5 mg PRN Q5MIN PRN 10/30/19 15:00 Clindamycin Phosphate 50 ml @ 100 mls/hr Q8HRS 11/02/19 14:00 11/04/19 06:05 100 MLS/HR Daptomycin 540 mg/ Sodium Chloride 50 ml @ 100 mls/hr ONCE ONCE 10/30/19 22:00 10/30/19 22:29 DC 10/30/19 22:09 100 MLS/HR Dexmedetomidine HCl 400 mcg/ Sodium Chloride 100 ml @ 0 mls/hr CONT PRN 10/30/19 15:00 11/04/19 06:04 11.3 MLS/HR Dextrose (Dextrose 50%-Water Syringe) 12.5 gm PRN Q15MIN PRN 11/01/19 17:30 Dextrose/Sodium Chloride 1,000 ml @ 250 mls/hr Q4H 10/30/19 19:30 11/01/19 17:29 DC 11/01/19 12:40 250 MLS/HR Etomidate (Amidate) 20 mg 1X ONCE 10/30/19 10:30 10/30/19 10:32 DC 10/30/19 10:38 20 MG Fentanyl Citrate 30 ml @ 0 mls/hr CONT PRN 10/30/19 19:00 11/04/19 06:15 2.5 MLS/HR Fentanyl Citrate (Fentanyl 2ml Vial) 25 mcg PRN Q1HR PRN 10/30/19 15:00 UNV Info (Tpn Per Pharmacy) 1 each PRN DAILY PRN 11/01/19 11:00 11/03/19 13:07 1 EACH Insulin Glargine (Lantus Syringe) 20 unit BID 11/02/19 09:00 11/03/19 21:16 20 UNIT Insulin Human Lispro (HumaLOG) 0-7 UNITS Q6HRS 11/02/19 00:00 11/04/19 06:14 4 UNITS Insulin Human Regular 100 ml @ 0 mls/hr 1X ONCE 10/30/19 12:00 10/30/19 12:01 DC 10/30/19 12:55 9.7 MLS/HR Insulin Human Regular 100 unit/ Sodium Chloride 101 ml @ 0 mls/hr CONT PRN 10/31/19 03:15 11/01/19 14:58 2.02 MLS/HR Linezolid/Dextrose 300 ml @ 300 mls/hr Q12HR 10/31/19 14:00 11/02/19 08:50 DC 11/02/19 08:13 300 MLS/HR Lorazepam (Ativan Inj) 0.5 mg PRN Q2HRS PRN 10/30/19 15:00 UNV Magnesium Sulfate 100 ml @ 25 mls/hr 1X ONCE 11/01/19 18:00 11/01/19 21:59 DC 11/01/19 17:46 25 MLS/HR Meropenem 500 mg/ Sodium Chloride 50 ml @ 100 mls/hr Q6HRS 11/01/19 00:00 11/04/19 06:05 100 MLS/HR Midazolam HCl 100 ml @ 1 mls/hr CONT PRN 10/30/19 17:00 11/02/19 08:30 10 MLS/HR Midazolam HCl 50 mg/Sodium Chloride 50 ml @ 0 mls/hr 1X ONCE 10/30/19 10:30 10/30/19 10:31 UNV Norepinephrine Bitartrate 8 mg/ Dextrose 258 ml @ 17.554 mls/ hr CONT PRN 10/30/19 22:15 11/03/19 00:09 10.1 MLS/HR Ondansetron HCl (Zofran) 4 mg PRN Q8HRS PRN 10/30/19 12:30 10/31/19 12:29 DC Pantoprazole Sodium (PROTONIX VIAL for IV PUSH) 40 mg [id number] 10/31/19 18:00 11/04/19 06:07 40 MG Phytonadione (Vitamin K Ampule) 10 mg 1X ONCE 10/31/19 12:00 10/31/19 12:01 DC 10/31/19 12:29 10 MG Piperacillin Sod/ Tazobactam Sod 2.25 gm/Sodium Chloride 50 ml @ 100 mls/hr Q6HRS 10/31/19 00:00 10/31/19 14:01 DC 10/31/19 12:28 100 MLS/HR Piperacillin Sod/ Tazobactam Sod 3.375 gm/Sodium Chloride 50 ml @ 100 mls/hr Q6HRS 10/31/19 18:00 10/31/19 18:32 DC 10/31/19 18:06 100 MLS/HR Potassium Chloride/Water 100 ml @ 100 mls/hr Q1H 11/01/19 02:45 11/01/19 04:44 DC 11/01/19 03:45 100 MLS/HR Potassium Phosphate 13.6 mmol/Sodium Chloride 254.5333 ml @ 127.... 1X ONCE 11/01/19 13:00 11/01/19 14:59 DC 11/01/19 13:06 127.267 MLS/HR Potassium Phosphate 15 mmol/ Sodium Chloride 255 ml @ 62.5 mls/hr 1X ONCE 11/01/19 02:45 11/01/19 06:49 DC 11/01/19 02:48 62.5 MLS/HR Rocuronium [place] (Zemuron) 50 mg 1X ONCE 10/30/19 10:45 10/30/19 10:46 DC 10/30/19 10:45 50 MG Sodium Acetate 70 meq/Sodium Phosphate 18 mmol/ Potassium Chloride 50 meq/ Magnesium Sulfate 10 meq/Calcium Gluconate 10 meq/ Multivitamins 10 ml/Chromium/ Copper/Manganese/ Seleni/Zn 1 ml/ Total Parenteral Nutrition/Amino Acids/Dextrose/ Fat Emulsion Intravenous 1,512 ml @ 63 mls/hr TPN CONT 11/02/19 22:00 11/03/19 21:59 DC 11/02/19 21:48 63 MLS/HR Sodium Acetate 70 meq/Sodium Phosphate 24 mmol/ Potassium Chloride 50 meq/ Magnesium Sulfate 16 meq/Calcium Gluconate 10 meq/ Multivitamins 10 ml/Chromium/ Copper/Manganese/ Seleni/Zn 1 ml/ Total Parenteral Nutrition/Amino Acids/Dextrose/ Fat Emulsion Intravenous 1,512 ml @ 63 mls/hr TPN CONT 11/03/19 22:00 11/04/19 21:59 11/03/19 21:17 63 MLS/HR Sodium Acetate 90 meq/Potassium Chloride 50 meq/ Potassium Phosphate 13.6 mmol/Magnesium Sulfate 10 meq/ Calcium Gluconate 10 meq/ Multivitamins 10 ml/Chromium/ Copper/Manganese/ Seleni/Zn 1 ml/ Total Parenteral Nutrition/Amino Acids/Dextrose/ Fat Emulsion Intravenous 1,512 ml @ 63 mls/hr TPN CONT 11/01/19 22:00 11/02/19 21:59 DC 11/01/19 21:26 63 MLS/HR Sodium Chloride 1,000 ml @ 125 mls/hr Q8H 11/01/19 18:00 Hold 11/01/19 17:45 125 MLS/HR Sodium Phosphate 15 mmol/Sodium Chloride 105 ml @ 105 mls/hr 1X ONCE 11/02/19 09:00 11/02/19 09:59 DC 11/02/19 08:36 105 MLS/HR Succinylcholine Chloride (Anectine) 100 mg 1X ONCE 10/30/19 10:30 10/30/19 10:32 DC 10/30/19 10:38 100 MG Labs: Lab Laboratory Tests Test 11/03/19 08:00 11/03/19 13:24 11/03/19 18:37 7/25/20 23:55 O2 Saturation 98 % (92-99) Arterial Blood pH 7.47 (7.35-7.45) Arterial Blood pH (Temp corrected) 7.46 Arterial Blood pCO2 at Patient Temp 34 mmHg (35-46) Arterial Blood pCO2 (Temp correct) 34 mmHg Arterial Blood pO2 at Patient Temp 113 mmHg (75-108) Arterial Blood pO2 (Temp corrected) 115 mmHg Arterial Blood HCO3 24 mmol/L (21-28) Arterial Blood Base Excess 1 mmol/L (-3-3) FiO2 30 Glucose (Fingerstick) 290 mg/dL (70-99) 294 mg/dL (70-99) 238 mg/dL (70-99) Test 11/04/19 04:40 11/04/19 06:12 White Blood Count 4.7 x10^3/uL (4.0-11.0) Red Blood Count 3.31 x10^6/uL (4.30-5.70) Hemoglobin 8.0 g/dL (13.0-17.5) Hematocrit 24.9 % (39.0-53.0) Mean Corpuscular Volume 75 fL (79-100) Mean Corpuscular Hemoglobin 24 pg (25-35) Mean Corpuscular Hemoglobin Concent 32 g/dL (31-37) Red Cell Distribution Width 21.7 % (11.5-14.5) Platelet Count 70 x10^3/uL (140-400) Neutrophils (%) (Auto) 54 % (31-73) Lymphocytes (%) (Auto) 32 % (24-48) Monocytes (%) (Auto) 11 % (0-9) Eosinophils (%) (Auto) 3 % (0-3) Basophils (%) (Auto) 1 % (0-3) Neutrophils # (Auto) 2.6 x10^3/uL (1.8-7.7) Lymphocytes # (Auto) 1.5 x10^3/uL (1.0-4.8) Monocytes # (Auto) 0.5 x10^3/uL (0.0-1.1) Eosinophils # (Auto) 0.2 x10^3/uL (0.0-0.7) Basophils # (Auto) 0.0 x10^3/uL (0.0-0.2) Sodium Level 147 mmol/L (136-145) Potassium Level 4.3 mmol/L (3.5-5.1) Chloride Level 113 mmol/L (98-107) Carbon Dioxide Level 26 mmol/L (21-32) Anion Gap 8 (6-14) Blood Urea Nitrogen 17 mg/dL (8-26) Creatinine 0.7 mg/dL (0.7-1.3) Estimated GFR (Cockcroft-Gault) 119.4 BUN/Creatinine Ratio 24 (6-20) Glucose Level 244 mg/dL (70-99) Calcium Level 8.1 mg/dL (8.5-10.1) Total Bilirubin 0.3 mg/dL (0.2-1.0) Direct Bilirubin 0.2 mg/dL (0.0-0.2) Aspartate Amino Transf (AST/SGOT) 98 U/L (15-37) Alanine Aminotransferase (ALT/SGPT) 52 U/L (16-63) Alkaline Phosphatase 150 U/L (46-116) Total Protein 5.2 g/dL (6.4-8.2) Albumin 1.5 g/dL (3.4-5.0) Albumin/Globulin Ratio 0.4 (1.0-1.7) Glucose (Fingerstick) 205 mg/dL (70-99) Objective: Assessment: Fever could be from underlying pancreatic pseudocyst Septic shock POA from strep group B bacteremia Group B strep bacteremia POA source likely GI Blood cultures 10/31 staph hemolyticus possible contaminant Encephalopathy present on admission Acute respiratory failure status post intubation in the ED, Pneumothorax stable Lactic acidosis. Likely factorial Diabetic ketoacidosis. Acute kidney injury with underlying CKD. Lymphopenia. Coagulopathy. Status post vitamin K Nausea and vomiting, chronically since last surgery with gallbladder. GI bleed Recent Pancreatitis, status post laparoscopic cholecystectomy on 09/14/2019.;now with pseudocyst/fluid collection Weight loss due to poor p.o. 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 Currently well healed. Hypertension. Bipolar disorder. Anemia Thrombocytopenia High BNP and troponin leak Intolerance to Daptomycin with nausea, tolerated it twice for weeks in the past Last year. on chronic suppressive clindamycin Plan: Plan of Care Continue meropenem DC clindamycin Start linezolid and micafungin f/u repeat blood culture Pulmonary ,hematology GI team following Monitor labs Continue supportive care. Critically ill Discussed with nursing staff. KLYAH DOUGLASS MD Nov 04, 2019 06:59
[2019-11-04 07:51] LABS: BASE EXCESS ABG 1 mmol/L (-3-3); HCO3 ABG 25 mmol/L (21-28); PCO2 ABG 33 mmHg (35-46); PO2 ABG 133 mmHg (75-108); SAT O2 ABG 98 % (92-99)
--- NOTE | 2019-11-04 07:51 | PDOC ---
PROGRESS NOTES Chief Complaint Chief Complaint impression Sepsis respiratory failure DKA Bacteremia, gram-positive cocci, 1/3 bottles. Recent laparoscopic cholecystectomy. Acute on chronic kidney injury. hypophosphatemia Elevated INR, likely secondary to DIC DM2 Small moderate left pneumothorax, incompletely evaluated. Interval development of a 6.3 cm pseudocyst along the pancreatic body. Another 6 cm fluid collection along the medial aspect of the hepatic caudate lobe also likely reflects a pseudocyst. Right colonic wall thickening. Correlate for colitis. rim calcified 10 mm mass along the left kidney medially may be a complicated cyst but is indeterminate. Sonographic follow-up could be performed in 6 months. severe protein-caloric malnutrition Plan Continue meropenem iv , ZYVOX , MICAFUNGIN Repeat blood culture Pulmonary ,hematology GI following Source of bacteremia remains unclear consult DR Alcantara TPN May need drainage of pancreatic cyst if condition fails to improve Dr. Alcantara will be in 11/04 to see 34 min cc time SOURCE: BLOOD ENTR: 11/01/19-[address]: VISHAL KATZ III DO [facility]: RUTH DOUGLASS MD,ELIZABETH ROBERTS,KAMERON MAYORGA,KUNAL SHEA,BAMBI HAYNES,BRIANNE Santiago MD ORDERED: BCULT Procedure Result BLOOD CULTURE Final GRAM POSITIVE COCCI IN 1 OF 2 BOTTLES OF A SINGLE SET COLLECTED 11/01/19. CALLED TO DEMETRIA OLIVERA IN ICU 11/02/19 AT 0745 BY Jesus SCHROEDER. CULTURE HAS BEEN SENT FOR FURTHER IDENTIFICATION. Operative Note Operative Note Operative Note: Preoperative Diagnosis: Gallstone pancreatitis Postoperative Diagnosis: Same Procedure: Laparoscopic cholecystectomy with intraoperative cholangiogram Surgeons: Quinton Redrying Machine Operator: Aron WING Anesthesia: Gen. Estimated Blood Loss: 10 mL Specimen: Gallbladder to pathology Drains: None Complications: None Indications: The patient is a 49-year-old male who was admitted with prominent vomiting and abdominal pain. History of Present Illness History of Present Illness 11/04/2019 Patient seen and examined in ICU He is on the ventilator AC 18/500/30% FiO2, PEEP 5.3 Strange BSD NG tube intermittent suction remains critically ill Discussed with RN and patient's mother Chart reviewed Vitals Vitals Vital Signs Date Time Temp Pulse Resp B/P (MAP) Pulse Ox O2 Delivery O2 Flow Rate FiO2 11/04/19 07:39 100 Ventilator 11/04/19 07:00 102 20 105/65 (78) 11/04/19 04:00 100.5 100.5 11/03/19 20:17 15.0 Physical Exam Physical Exam GENERAL: Intubated, sedated. HEENT: Normocephalic, atraumatic, NGT and ETT NECK: Supple, no JVD, no lymphadenopathy, no thyromegaly. LUNGS: Decreased breath sounds at the bases, otherwise, clear. HEART: S1, S2, tachycardia. No murmurs. ABDOMEN: Soft, nontender, bowel sounds present. EXTREMITIES: No cyanosis, no clubbing, no edema. Negative Nestor's sign. MUSCULOSKELETAL: Previous left knee surgery. Incision scar intact. No effusion. No surrounding erythema, no fluctuance. Nestor's negative. DERMATOLOGIC: Warm, dry. No generalized rash. NEUROLOGIC: Sedated. PSYCHIATRIC: Sedated. LINES: Left central line looks clean. PIV looks clean. General: Cooperative, Other (Sedated and intubated on ventilator) Heart: Regular rate Lungs: Clear Abdomen: Soft Extremities: Other (Mild generalized edema) Skin: No significant lesion Labs LABS Laboratory Tests Test 11/03/19 08:00 11/03/19 13:24 11/03/19 18:37 11/03/19 23:55 O2 Saturation 98 % (92-99) Arterial Blood pH 7.47 (7.35-7.45) Arterial Blood pH (Temp corrected) 7.46 Arterial Blood pCO2 at Patient Temp 34 mmHg (35-46) Arterial Blood pCO2 (Temp correct) 34 mmHg Arterial Blood pO2 at Patient Temp 113 mmHg (75-108) Arterial Blood pO2 (Temp corrected) 115 mmHg Arterial Blood HCO3 24 mmol/L (21-28) Arterial Blood Base Excess 1 mmol/L (-3-3) FiO2 30 Glucose (Fingerstick) 290 mg/dL (70-99) 294 mg/dL (70-99) 238 mg/dL (70-99) Test 11/04/19 04:40 11/04/19 06:12 White Blood Count 4.7 x10^3/uL (4.0-11.0) Red Blood Count 3.31 x10^6/uL (4.30-5.70) Hemoglobin 8.0 g/dL (13.0-17.5) Hematocrit 24.9 % (39.0-53.0) Mean Corpuscular Volume 75 fL (79-100) Mean Corpuscular Hemoglobin 24 pg (25-35) Mean Corpuscular Hemoglobin Concent 32 g/dL (31-37) Red Cell Distribution Width 21.7 % (11.5-14.5) Platelet Count 70 x10^3/uL (140-400) Neutrophils (%) (Auto) 54 % (31-73) Lymphocytes (%) (Auto) 32 % (24-48) Monocytes (%) (Auto) 11 % (0-9) Eosinophils (%) (Auto) 3 % (0-3) Basophils (%) (Auto) 1 % (0-3) Neutrophils # (Auto) 2.6 x10^3/uL (1.8-7.7) Lymphocytes # (Auto) 1.5 x10^3/uL (1.0-4.8) Monocytes # (Auto) 0.5 x10^3/uL (0.0-1.1) Eosinophils # (Auto) 0.2 x10^3/uL (0.0-0.7) Basophils # (Auto) 0.0 x10^3/uL (0.0-0.2) Sodium Level 147 mmol/L (136-145) Potassium Level 4.3 mmol/L (3.5-5.1) Chloride Level 113 mmol/L (98-107) Carbon Dioxide Level 26 mmol/L (21-32) Anion Gap 8 (6-14) Blood Urea Nitrogen 17 mg/dL (8-26) Creatinine 0.7 mg/dL (0.7-1.3) Estimated GFR (Cockcroft-Gault) 119.4 BUN/Creatinine Ratio 24 (6-20) Glucose Level 244 mg/dL (70-99) Calcium Level 8.1 mg/dL (8.5-10.1) Total Bilirubin 0.3 mg/dL (0.2-1.0) Direct Bilirubin 0.2 mg/dL (0.0-0.2) Aspartate Amino Transf (AST/SGOT) 98 U/L (15-37) Alanine Aminotransferase (ALT/SGPT) 52 U/L (16-63) Alkaline Phosphatase 150 U/L (46-116) Total Protein 5.2 g/dL (6.4-8.2) Albumin 1.5 g/dL (3.4-5.0) Albumin/Globulin Ratio 0.4 (1.0-1.7) Glucose (Fingerstick) 205 mg/dL (70-99) Assessment and Plan Assessmemt and Plan Problems Medical Problems: (1) DKA (diabetic ketoacidoses) Status: Acute (2) Hypokalemia Status: Acute (3) Respiratory failure Status: Acute (4) Severe sepsis Status: Acute (5) Suspected 2019-nCoV infection Status: Acute Comment Review of Relevant I have reviewed the following items blaze (where applicable) has been applied. Labs Laboratory Tests Test 11/02/19 08:30 11/02/19 08:34 11/02/19 10:30 11/02/19 12:38 O2 Saturation 98 % (92-99) Arterial Blood pH 7.45 (7.35-7.45) Arterial Blood pH (Temp corrected) 7.42 Arterial Blood pCO2 at Patient Temp 31 mmHg (35-46) Arterial Blood pCO2 (Temp correct) 34 mmHg Arterial Blood pO2 at Patient Temp 132 mmHg (75-108) Arterial Blood pO2 (Temp corrected) 145 mmHg Arterial Blood HCO3 21 mmol/L (21-28) Arterial Blood Base Excess -3 mmol/L (-3-3) FiO2 30 Glucose (Fingerstick) 307 mg/dL (70-99) 339 mg/dL (70-99) Urine Collection Type Unknown Urine Color Yellow Urine Clarity Clear Urine pH 6.5 (<5.0-8.0) Urine Specific [place] 1.020 (1.000-1.030) Urine Protein Negative mg/dL (NEG-TRACE) Urine Glucose (UA) >=1000 mg/dL (NEG) Urine Ketones (Stick) Negative mg/dL (NEG) Urine Blood Negative (NEG) Urine Nitrite Negative (NEG) Urine Bilirubin Negative (NEG) Urine Urobilinogen Dipstick 0.2 mg/dL (0.2 mg/dL) Urine Leukocyte Esterase Negative (NEG) Urine RBC 1-2 /HPF (0-2) Urine WBC 1-4 /HPF (0-4) Urine Squamous Epithelial Cells Occ /LPF Urine Bacteria 0 /HPF (0-FEW) Urine Yeast Present /HPF Test 11/02/19 18:12 11/02/19 23:41 11/03/19 05:58 11/03/19 06:00 Glucose (Fingerstick) 283 mg/dL (70-99) 261 mg/dL (70-99) 240 mg/dL (70-99) White Blood Count 7.2 x10^3/uL (4.0-11.0) Red Blood Count 3.58 x10^6/uL (4.30-5.70) Hemoglobin 8.7 g/dL (13.0-17.5) Hematocrit 26.9 % (39.0-53.0) Mean Corpuscular Volume 75 fL (79-100) Mean Corpuscular Hemoglobin 24 pg (25-35) Mean Corpuscular Hemoglobin Concent 32 g/dL (31-37) Red Cell Distribution Width 21.6 % (11.5-14.5) Platelet Count 89 x10^3/uL (140-400) Neutrophils (%) (Auto) 65 % (31-73) Lymphocytes (%) (Auto) 27 % (24-48) Monocytes (%) (Auto) 4 % (0-9) Eosinophils (%) (Auto) 3 % (0-3) Basophils (%) (Auto) 0 % (0-3) Neutrophils # (Auto) 4.7 x10^3/uL (1.8-7.7) Lymphocytes # (Auto) 2.0 x10^3/uL (1.0-4.8) Monocytes # (Auto) 0.3 x10^3/uL (0.0-1.1) Eosinophils # (Auto) 0.2 x10^3/uL (0.0-0.7) Basophils # (Auto) 0.0 x10^3/uL (0.0-0.2) Sodium Level 144 mmol/L (136-145) Potassium Level 4.3 mmol/L (3.5-5.1) Chloride Level 111 mmol/L (98-107) Carbon Dioxide Level 27 mmol/L (21-32) Anion Gap 6 (6-14) Blood Urea Nitrogen 13 mg/dL (8-26) Creatinine 0.8 mg/dL (0.7-1.3) Estimated GFR (Cockcroft-Gault) 102.3 Glucose Level 254 mg/dL (70-99) Calcium Level 7.3 mg/dL (8.5-10.1) Phosphorus Level 2.0 mg/dL (2.6-4.7) Magnesium Level 1.8 mg/dL (1.8-2.4) Total Bilirubin 0.3 mg/dL (0.2-1.0) Direct Bilirubin 0.2 mg/dL (0.0-0.2) Aspartate Amino Transf (AST/SGOT) 39 U/L (15-37) Alanine Aminotransferase (ALT/SGPT) 25 U/L (16-63) Alkaline Phosphatase 138 U/L (46-116) Total Protein 4.4 g/dL (6.4-8.2) Albumin 1.5 g/dL (3.4-5.0) Lipase 235 U/L (73-393) Test 11/03/19 08:00 11/03/19 13:24 11/03/19 18:37 11/03/19 23:55 O2 Saturation 98 % (92-99) Arterial Blood pH 7.47 (7.35-7.45) Arterial Blood pH (Temp corrected) 7.46 Arterial Blood pCO2 at Patient Temp 34 mmHg (35-46) Arterial Blood pCO2 (Temp correct) 34 mmHg Arterial Blood pO2 at Patient Temp 113 mmHg (75-108) Arterial Blood pO2 (Temp corrected) 115 mmHg Arterial Blood HCO3 24 mmol/L (21-28) Arterial Blood Base Excess 1 mmol/L (-3-3) FiO2 30 Glucose (Fingerstick) 290 mg/dL (70-99) 294 mg/dL (70-99) 238 mg/dL (70-99) Test 11/04/19 04:40 11/04/19 06:12 White Blood Count 4.7 x10^3/uL (4.0-11.0) Red Blood Count 3.31 x10^6/uL (4.30-5.70) Hemoglobin 8.0 g/dL (13.0-17.5) Hematocrit 24.9 % (39.0-53.0) Mean Corpuscular Volume 75 fL (79-100) Mean Corpuscular Hemoglobin 24 pg (25-35) Mean Corpuscular Hemoglobin Concent 32 g/dL (31-37) Red Cell Distribution Width 21.7 % (11.5-14.5) Platelet Count 70 x10^3/uL (140-400) Neutrophils (%) (Auto) 54 % (31-73) Lymphocytes (%) (Auto) 32 % (24-48) Monocytes (%) (Auto) 11 % (0-9) Eosinophils (%) (Auto) 3 % (0-3) Basophils (%) (Auto) 1 % (0-3) Neutrophils # (Auto) 2.6 x10^3/uL (1.8-7.7) Lymphocytes # (Auto) 1.5 x10^3/uL (1.0-4.8) Monocytes # (Auto) 0.5 x10^3/uL (0.0-1.1) Eosinophils # (Auto) 0.2 x10^3/uL (0.0-0.7) Basophils # (Auto) 0.0 x10^3/uL (0.0-0.2) Sodium Level 147 mmol/L (136-145) Potassium Level 4.3 mmol/L (3.5-5.1) Chloride Level 113 mmol/L (98-107) Carbon Dioxide Level 26 mmol/L (21-32) Anion Gap 8 (6-14) Blood Urea Nitrogen 17 mg/dL (8-26) Creatinine 0.7 mg/dL (0.7-1.3) Estimated GFR (Cockcroft-Gault) 119.4 BUN/Creatinine Ratio 24 (6-20) Glucose Level 244 mg/dL (70-99) Calcium Level 8.1 mg/dL (8.5-10.1) Total Bilirubin 0.3 mg/dL (0.2-1.0) Direct Bilirubin 0.2 mg/dL (0.0-0.2) Aspartate Amino Transf (AST/SGOT) 98 U/L (15-37) Alanine Aminotransferase (ALT/SGPT) 52 U/L (16-63) Alkaline Phosphatase 150 U/L (46-116) Total Protein 5.2 g/dL (6.4-8.2) Albumin 1.5 g/dL (3.4-5.0) Albumin/Globulin Ratio 0.4 (1.0-1.7) Glucose (Fingerstick) 205 mg/dL (70-99) Laboratory Tests Test 11/03/19 08:00 11/03/19 13:24 11/03/19 18:37 11/03/19 23:55 O2 Saturation 98 % (92-99) Arterial Blood pH 7.47 (7.35-7.45) Arterial Blood pH (Temp corrected) 7.46 Arterial Blood pCO2 at Patient Temp 34 mmHg (35-46) Arterial Blood pCO2 (Temp correct) 34 mmHg Arterial Blood pO2 at Patient Temp 113 mmHg (75-108) Arterial Blood pO2 (Temp corrected) 115 mmHg Arterial Blood HCO3 24 mmol/L (21-28) Arterial Blood Base Excess 1 mmol/L (-3-3) FiO2 30 Glucose (Fingerstick) 290 mg/dL (70-99) 294 mg/dL (70-99) 238 mg/dL (70-99) Test 11/04/19 04:40 11/04/19 06:12 White Blood Count 4.7 x10^3/uL (4.0-11.0) Red Blood Count 3.31 x10^6/uL (4.30-5.70) Hemoglobin 8.0 g/dL (13.0-17.5) Hematocrit 24.9 % (39.0-53.0) Mean Corpuscular Volume 75 fL (79-100) Mean Corpuscular Hemoglobin 24 pg (25-35) Mean Corpuscular Hemoglobin Concent 32 g/dL (31-37) Red Cell Distribution Width 21.7 % (11.5-14.5) Platelet Count 70 x10^3/uL (140-400) Neutrophils (%) (Auto) 54 % (31-73) Lymphocytes (%) (Auto) 32 % (24-48) Monocytes (%) (Auto) 11 % (0-9) Eosinophils (%) (Auto) 3 % (0-3) Basophils (%) (Auto) 1 % (0-3) Neutrophils # (Auto) 2.6 x10^3/uL (1.8-7.7) Lymphocytes # (Auto) 1.5 x10^3/uL (1.0-4.8) Monocytes # (Auto) 0.5 x10^3/uL (0.0-1.1) Eosinophils # (Auto) 0.2 x10^3/uL (0.0-0.7) Basophils # (Auto) 0.0 x10^3/uL (0.0-0.2) Sodium Level 147 mmol/L (136-145) Potassium Level 4.3 mmol/L (3.5-5.1) Chloride Level 113 mmol/L (98-107) Carbon Dioxide Level 26 mmol/L (21-32) Anion Gap 8 (6-14) Blood Urea Nitrogen 17 mg/dL (8-26) Creatinine 0.7 mg/dL (0.7-1.3) Estimated GFR (Cockcroft-Gault) 119.4 BUN/Creatinine Ratio 24 (6-20) Glucose Level 244 mg/dL (70-99) Calcium Level 8.1 mg/dL (8.5-10.1) Total Bilirubin 0.3 mg/dL (0.2-1.0) Direct Bilirubin 0.2 mg/dL (0.0-0.2) Aspartate Amino Transf (AST/SGOT) 98 U/L (15-37) Alanine Aminotransferase (ALT/SGPT) 52 U/L (16-63) Alkaline Phosphatase 150 U/L (46-116) Total Protein 5.2 g/dL (6.4-8.2) Albumin 1.5 g/dL (3.4-5.0) Albumin/Globulin Ratio 0.4 (1.0-1.7) Glucose (Fingerstick) 205 mg/dL (70-99) Microbiology 11/02/19 Blood Culture - Preliminary, Resulted NO GROWTH AFTER 1 DAY 10/30/19 Urine Culture - Final, Complete Medications Current Medications Midazolam HCl 100 ml @ 1 mls/hr 1X ONCE IV Last administered on 10/30/19at 10:40; Start 10/30/19 at 10:30; Stop 11/01/19 at 08:11; Status DC Midazolam HCl 50 mg/Sodium Chloride 50 ml @ 0 mls/hr 1X ONCE IV ; Start 10/30/19 at 10:30; Stop 10/30/19 at 10:31; Status UNV Etomidate (Amidate) 20 mg 1X ONCE IV Last administered on 10/30/19at 10:38; Start 10/30/19 at 10:30; Stop 10/30/19 at 10:32; Status DC Succinylcholine Chloride (Anectine) 100 mg 1X ONCE IV Last administered on 10/30/19at 10:38; Start 10/30/19 at 10:30; Stop 10/30/19 at 10:32; Status DC Norepinephrine Bitartrate 8 mg/ Dextrose 258 ml @ 13.177 mls/ hr 1X ONCE IV Last administered on 10/30/19at 10:39; Start 10/30/19 at 10:25; Stop 10/31/19 at 05:59; Status DC Piperacillin Sod/ Tazobactam Sod 3.375 gm/Sodium Chloride 50 ml @ 100 mls/hr 1X ONCE IV Last administered on 10/30/19at 10:42; Start 10/30/19 at 11:00; Stop 10/30/19 at 11:29; Status DC Rocuronium [place] (Zemuron) 10 mg 1X ONCE IV ; Start 10/30/19 at 10:45; Stop 10/30/19 at 10:46; Status Cancel Sodium Chloride 1,000 ml @ 1,000 mls/hr 1X ONCE IV Last administered on 10/30/19at 10:43; Start 10/30/19 at 10:45; Stop 10/30/19 at 11:44; Status DC Sodium Chloride 1,000 ml @ 1,000 mls/hr 1X ONCE IV Last administered on 10/30/19at 10:43; Start 10/30/19 at 10:45; Stop 10/30/19 at 11:44; Status DC Rocuronium [place] (Zemuron) 50 mg 1X ONCE IV Last administered on 10/30/19at 10:45; Start 10/30/19 at 10:45; Stop 10/30/19 at 10:46; Status DC Potassium Chloride/Water 100 ml @ 100 mls/hr Q1H IV Last administered on 10/30/19at 12:56; Start 10/30/19 at 12:00; Stop 10/30/19 at 13:59; Status DC Insulin Human Regular 100 ml @ 0 mls/hr 1X ONCE IV Last administered on 10/30/19at 12:55; Start 10/30/19 at 12:00; Stop 10/30/19 at 12:01; Status DC Sodium Chloride 1,000 ml @ 1,000 mls/hr 1X ONCE IV Last administered on 10/30/19at 12:45; Start 10/30/19 at 12:15; Stop 10/30/19 at 13:14; Status DC Ondansetron HCl (Zofran) 4 mg PRN Q8HRS PRN IV NAUSEA/VOMITING; Start 10/30/19 at 12:30; Stop 10/31/19 at 12:29; Status DC Sodium Chloride 1,000 ml @ 125 mls/hr Q8H IV Last administered on 10/30/19at 15:20; Start 10/30/19 at 12:25; Stop 10/31/19 at 07:13; Status DC Dexmedetomidine HCl 400 mcg/ Sodium Chloride 100 ml @ 0 mls/hr CONT PRN IV SEE COMMENTS Last administered on 11/04/19at 06:04; Start 10/30/19 at 15:00 Fentanyl Citrate (Fentanyl 2ml Vial) 25 mcg PRN Q1HR PRN IV PAIN; Start 10/30/19 at 15:00; Status UNV Lorazepam (Ativan Inj) 0.5 mg PRN Q2HRS PRN IV AGITATION; Start 10/30/19 at 15:00; Status UNV Sodium Chloride 500 ml @ 500 mls/hr 1X PRN PRN IV COMMENTS; Start 10/30/19 at 15:00 Atropine Sulfate (ATROPINE 0.5mg SYRINGE) 0.5 mg PRN Q5MIN PRN IV SEE COMMENTS; Start 10/30/19 at 15:00 Midazolam HCl 100 ml @ 1 mls/hr CONT PRN IV SEE COMMENTS Last administered on 11/02/19at 08:30; Start 10/30/19 at 17:00 Pantoprazole Sodium (PROTONIX VIAL for IV PUSH) 40 mg DAILYAC IVP Last administered on 10/31/19at 07:23; Start 10/31/19 at 07:30; Stop 10/31/19 at 11:55; Status DC Pantoprazole Sodium (PROTONIX VIAL for IV PUSH) 40 mg 1X ONCE IVP Last a dministered on 10/30/19at 22:00; Start 10/30/19 at 18:45; Stop 10/30/19 at 18:47; Status DC Phytonadione (Vitamin K Ampule) 5 mg 1X ONCE SQ Last administered on 10/30/19at 20:01; Start 10/30/19 at 18:45; Stop 10/30/19 at 18:47; Status DC Fentanyl Citrate 30 ml @ 0 mls/hr CONT PRN IV SEE PROTOCOL Last administered on 11/04/19at 06:15; Start 10/30/19 at 19:00 Dextrose/Sodium Chloride 1,000 ml @ 250 mls/hr Q4H IV Last administered on 11/01/19at 12:40; Start 10/30/19 at 19:30; Stop 11/01/19 at 17:29; Status DC Potassium Phosphate 13.6 mmol/Sodium Chloride 254.5333 ml @ 127.... Q2H IV Last administered on 10/30/19at 22:00; Start 10/30/19 at 20:00; Stop 10/30/19 at 23:59; Status DC Piperacillin Sod/ Tazobactam Sod 2.25 gm/Sodium Chloride 50 ml @ 100 mls/hr Q6HRS IV Last administered on 10/31/19at 12:28; Start 10/31/19 at 00:00; Stop 10/31/19 at 14:01; Status DC Daptomycin 540 mg/ Sodium Chloride 50 ml @ 100 mls/hr ONCE ONCE IV Last administered on 10/30/19at 22:09; Start 10/30/19 at 22:00; Stop 10/30/19 at 22:29; Status DC Norepinephrine Bitartrate 8 mg/ Dextrose 258 ml @ 17.554 mls/ hr CONT PRN IV PER PROTOCOL Last administered on 11/03/19at 00:09; Start 10/30/19 at 22:15 Potassium Chloride/Water 100 ml @ 100 mls/hr Q1H IV Last administered on 10/31/19at 01:30; Start 10/30/19 at 23:30; Stop 10/31/19 at 02:29; Status DC Dextrose (Dextrose 50%-Water Syringe) 25 gm PRN Q10MIN PRN IV HYPOGLYCEMIA Last administered on 10/31/19at 02:39; Start 10/31/19 at 02:30 Potassium Chloride/Water 100 ml @ 100 mls/hr Q1H IV Last administered on 10/31/19at 04:39; Start 10/31/19 at 03:30; Stop 10/31/19 at 05:29; Status DC Insulin Human Regular 100 unit/ Sodium Chloride 101 ml @ 0 mls/hr CONT PRN IV SEE I/O RECORD Last administered on 11/01/19at 14:58; Start 10/31/19 at 03:15 Potassium Chloride/Water 100 ml @ 100 mls/hr Q1H IV Last administered on 10/31/19at 08:27; Start 10/31/19 at 07:30; Stop 10/31/19 at 09:29; Status DC Potassium Phosphate 13.6 mmol/Sodium Chloride 254.5333 ml @ 127.... Q2H IV Last administered on 10/31/19at 13:18; Start 10/31/19 at 11:00; Stop 10/31/19 at 14:59; Status DC Pantoprazole Sodium (PROTONIX VIAL for IV PUSH) 40 mg [id number] IVP Last administered on 11/04/19at 06:07; Start 10/31/19 at 18:00 Phytonadione (Vitamin K Ampule) 10 mg 1X ONCE SQ Last administered on 10/31/19at 12:29; Start 10/31/19 at 12:00; Stop 10/31/19 at 12:01; Status DC Linezolid/Dextrose 300 ml @ 300 mls/hr Q12HR IV Last administered on 11/02/19at 08:13; Start 10/31/19 at 14:00; Stop 11/02/19 at 08:50; Status DC Piperacillin Sod/ Tazobactam Sod 3.375 gm/Sodium Chloride 50 ml @ 100 mls/hr Q6HRS IV Last administered on 10/31/19at 18:06; Start 10/31/19 at 18:00; Stop 10/31/19 at 18:32; Status DC Acetaminophen (Tylenol Supp) 650 mg PRN Q6HRS PRN [place] MILD PAIN / TEMP > 100.3'F Last administered on 11/04/19at 00:18; Start 10/31/19 at 16:00 Potassium Chloride/Water 100 ml @ 100 mls/hr Q1H IV Last administered on 10/31/19at 19:07; Start 10/31/19 at 18:00; Stop 10/31/19 at 19:59; Status DC Magnesium Sulfate 100 ml @ 25 mls/hr 1X ONCE IV Last administered on 10/31/19at 18:07; Start 10/31/19 at 18:00; Stop 10/31/19 at 21:59; Status DC Meropenem 500 mg/ Sodium Chloride 50 ml @ 100 mls/hr Q6HRS IV Last administered on 11/04/19at 06:05; Start 11/01/19 at 00:00 Potassium Chloride/Water 100 ml @ 100 mls/hr Q1H IV Last administered on 10/31/19at 23:45; Start 10/31/19 at 22:00; Stop 10/31/19 at 23:59; Status DC Potassium Chloride/Water 100 ml @ 100 mls/hr Q1H IV Last administered on 11/01/19at 03:45; Start 11/01/19 at 02:45; Stop 11/01/19 at 04:44; Status DC Potassium Phosphate 15 mmol/ Sodium Chloride 255 ml @ 62.5 mls/hr 1X ONCE IV Last administered on 11/01/19at 02:48; Start 11/01/19 at 02:45; Stop 11/01/19 at 06:49; Status DC Potassium Phosphate 13.6 mmol/Sodium Chloride 254.5333 ml @ 127.... 1X ONCE IV Last administered on 11/01/19at 09:17; Start 11/01/19 at 09:00; Stop 11/01/19 at 10:59; Status DC Info (Tpn Per Pharmacy) 1 each PRN DAILY PRN MC SEE COMMENTS Last administered on 11/03/19at 13:07; Start 11/01/19 at 11:00 Sodium Acetate 90 meq/Potassium Chloride 50 meq/ Potassium Phosphate 13.6 mmol/Magnesium Sulfate 10 meq/ Calcium Gluconate 10 meq/ Multivitamins 10 ml/Chromium/ Copper/Manganese/ Seleni/Zn 1 ml/ Total Parenteral Nutrition/Amino Acids/Dextrose/ Fat Emulsion Intravenous 1,512 ml @ 63 mls/hr TPN CONT IV Last administered on 11/01/19at 21:26; Start 11/01/19 at 22:00; Stop 11/02/19 at 21:59; Status DC Potassium Phosphate 13.6 mmol/Sodium Chloride 254.5333 ml @ 127.... 1X ONCE IV Last administered on 11/01/19at 13:06; Start 11/01/19 at 13:00; Stop 11/01/19 at 14:59; Status DC Insulin Glargine (Lantus Syringe) 20 unit 1X ONCE SQ Last administered on 11/01/19at 17:45; Start 11/01/19 at 18:00; Stop 11/01/19 at 18:01; Status DC Insulin Glargine (Lantus Syringe) 20 unit BID SQ Last administered on 11/03/19at 21:16; Start 11/02/19 at 09:00 Insulin Human Lispro (HumaLOG) 0-7 UNITS Q6HRS SQ Last administered on 11/04/19at 06:14; Start 11/02/19 at 00:00 Dextrose (Dextrose 50%-Water Syringe) 12.5 gm PRN Q15MIN PRN IV SEE COMMENTS; Start 11/01/19 at 17:30 Magnesium Sulfate 100 ml @ 25 mls/hr 1X ONCE IV Last administered on 11/01/19at 17:46; Start 11/01/19 at 18:00; Stop 11/01/19 at 21:59; Status DC Sodium Chloride 1,000 ml @ 125 mls/hr Q8H IV Last administered on 11/01/19at 17:45; Start 11/01/19 at 18:00; Status Hold Sodium Phosphate 15 mmol/Sodium Chloride 105 ml @ 105 mls/hr 1X ONCE IV Last administered on 11/02/19at 08:36; Start 11/02/19 at 09:00; Stop 11/02/19 at 09:59; Status DC Clindamycin Phosphate 50 ml @ 100 mls/hr Q8HRS IV Last administered on 11/04/19at 06:05; Start 11/02/19 at 14:00; Stop 11/04/19 at 06:59; Status DC Sodium Acetate 70 meq/Sodium Phosphate 18 mmol/ Potassium Chloride 50 meq/ Magnesium Sulfate 10 meq/Calcium Gluconate 10 meq/ Multivitamins 10 ml/Chromium/ Copper/Manganese/ Seleni/Zn 1 ml/ Total Parenteral Nutrition/Amino Acids/Dextrose/ Fat Emulsion Intravenous 1,512 ml @ 63 mls/hr TPN CONT IV Last administered on 11/02/19at 21:48; Start 11/02/19 at 22:00; Stop 11/03/19 at 21:59; Status DC Sodium Acetate 70 meq/Sodium Phosphate 24 mmol/ Potassium Chloride 50 meq/ Magnesium Sulfate 16 meq/Calcium Gluconate 10 meq/ Multivitamins 10 ml/Chromium/ Copper/Manganese/ Seleni/Zn 1 ml/ Total Parenteral Nutrition/Amino Acids/Dextrose/ Fat Emulsion Intravenous 1,512 ml @ 63 mls/hr TPN CONT IV Last administered on 11/03/19at 21:17; Start 11/03/19 at 22:00; Stop 11/04/19 at 21:59 Daptomycin 450 mg/ Sodium Chloride 50 ml @ 100 mls/hr Q24H IV ; Start 11/04/19 at 09:00; Stop 11/04/19 at 07:23; Status DC Micafungin Sodium 100 mg/Dextrose 100 ml @ 100 mls/hr Q24H IV ; Start 11/04/19 at 08:00 Linezolid/Dextrose 300 ml @ 300 mls/hr Q12HR IV ; Start 11/04/19 at 09:00 Active Scripts Active Humalog (Insulin Lispro) 100 Unit/1 Ml Insuln.pen 0 Units SQ QIDACHS 14 Days Culturelle (Lactobacillus Rhamnosus Gg) 1 Each Cap.sprink 1 Cap PO BID 30 Days Pantoprazole Sodium (Pantoprazole Sodium) 40 Mg Tablet.dr 40 Mg PO DAILYAC 30 Days Dok (Docusate Sodium) 100 Mg Capsule 100 Mg PO PRN BID PRN 30 Days Klor-Con M20 (Potassium Chloride) 20 Meq Tab.er.prt 20 Meq PO DAILYWBKFT 14 Days Proair Hfa (Albuterol Sulfate) 8.5 Gm Hfa.aer.ad 2.5 Mg NEB PRN Q4HRS PRN 14 Days Reported Clindamycin Hcl 300 Mg Capsule 600 Mg PO BID Lidocaine PATCH (Lidocaine) 1 Each Adh..patch 1 Each TP DAILY REMOVE AFTER 12 HOURS Lisinopril 5 Mg Tablet 1 Tab PO DAILY PRN Clonazepam 1 Mg Tablet 1 Mg PO BID [place] Carbonate 300 Mg Tablet 1 Tab PO BID Zanaflex (Tizanidine Hcl) 4 Mg Capsule 1 Cap PO TID PRN Janumet 50-1,000 Mg Tablet (Sitagliptin Phos/Metformin Hcl) 1 Each Tablet 1 Tab PO BID Doxepin Hcl 50 Mg Capsule 300 Mg PO HS Vitals/I & O Vital Sign - Last 24 Hours 11/03/19 11/03/19 11/03/19 11/03/19 08:00 08:00 08:23 08:32 Temp 99.4 99.4 Pulse 105 Resp 18 B/P (MAP) 111/84 (93) Pulse Ox 100 100 100 O2 Delivery Ventilator Mechanical Ventilator Ventilator Ventilator 11/03/19 11/03/19 11/03/19 11/03/19 09:00 10:00 11:00 11:36 Pulse 106 126 126 Resp 16 19 19 B/P (MAP) 110/80 (90) 120/88 (99) 120/84 (96) Pulse Ox 100 100 100 100 O2 Delivery Ventilator Ventilator Ventilator Ventilator 11/03/19 11/03/19 11/03/19 11/03/19 12:00 12:00 13:00 14:00 Temp 100.6 100.6 Pulse 130 128 136 Resp 16 16 20 B/P (MAP) 114/73 (87) 112/69 (83) 111/75 (87) Pulse Ox 100 100 100 O2 Delivery Mechanical Ventilator Ventilator Ventilator Ventilator 11/03/19 11/03/19 11/03/19 11/03/19 14:12 15:00 16:00 16:00 Temp 100.8 100.8 Pulse 128 118 Resp 17 20 B/P (MAP) 117/84 (95) 107/82 (90) Pulse Ox 100 100 100 O2 Delivery Ventilator Ventilator Ventilator Mechanical Ventilator 11/03/19 11/03/19 11/03/19 11/03/19 16:00 17:00 18:00 18:18 Pulse 109 106 Resp 16 16 B/P (MAP) 121/82 (95) 118/86 (97) Pulse Ox 100 100 100 100 O2 Delivery Ventilator Ventilator Ventilator Ventilator 11/03/19 11/03/19 11/03/19 11/03/19 19:00 19:45 19:47 20:00 Temp 98.7 98.7 Pulse 102 104 Resp 16 16 B/P (MAP) 95/60 (72) 102/69 (80) Pulse Ox 100 100 100 100 O2 Delivery Ventilator Ventilator Ventilator O2 Flow Rate 15.0 11/03/19 11/03/19 11/03/19 11/03/19 20:17 20:30 21:00 22:00 Pulse 100 96 Resp 16 16 B/P (MAP) 107/76 (86) 115/78 (90) Pulse Ox 100 100 100 O2 Delivery Mechanical Ventilator Ventilator Ventilator O2 Flow Rate 15.0 11/03/19 11/04/19 11/04/19 11/04/19 23:00 00:00 00:02 00:22 Temp 100.3 100.3 Pulse 94 97 Resp 16 16 B/P (MAP) 104/68 (80) 106/77 (87) Pulse Ox 100 100 100 O2 Delivery Ventilator Ventilator Mechanical Ventilator Ventilator 11/04/19 11/04/19 11/04/19 11/04/19 01:00 02:00 03:00 03:50 Pulse 98 94 98 Resp 16 16 16 B/P (MAP) 114/83 (93) 105/71 (82) 125/78 (94) Pulse Ox 100 100 100 100 O2 Delivery Ventilator Ventilator Ventilator Ventilator 11/04/19 11/04/19 11/04/19 11/04/19 04:00 04:00 05:00 06:15 Temp 100.5 100.5 Pulse 98 103 Resp 16 16 16 B/P (MAP) 118/78 (91) 130/75 (93) Pulse Ox 100 100 100 O2 Delivery Mechanical Ventilator Ventilator Ventilator Ventilator 11/04/19 11/04/19 11/04/19 06:51 07:00 07:39 Pulse 102 Resp 16 20 B/P (MAP) 105/65 (78) Pulse Ox 100 100 100 O2 Delivery Ventilator Ventilator Ventilator Intake and Output 11/03/19 11/03/19 11/04/19 15:00 23:00 07:00 Intake Total 100 ml 900 ml Output Total 685 ml 585 ml 575 ml Balance -685 ml -485 ml 325 ml Nutrition Consultation Dietary Evaluation: Recommendations by RD: Dietary education by RD, Increase Calorie Intake, PPN/TPN Comments: Continue w/TPN per following for nutrition support needs while intubated: 75g AA, 225g dextrose, 20g lipids Expected Outcomes/Goals: Initiation of nutrition within 24 - 48 hrs of intubation - met, new goal established New goal 11/01: TPN infusion to meet >65% est needs while intubated Interpretation of weight loss: >7.5% in 3 months Malnutrition Findings: Food and Nutrition Intake (Sev: <50% est energy req 5days Weight Status: Appropriate Justicifation of Admission Dx: Justifications for Admission: Justification of Admission Dx: Yes Comminuty Aquired Pneumonia: Hemodynamic Instability Acute Renal Failure: RF Can't Be Managed Outpt Sepsis: Altered Mental Status DKA: DKA JAMAL MORRIS MD Nov 04, 2019 07:51
[2019-11-04 07:54] LABS: FIO2 ABG 30
[2019-11-04] MEDS: MICAFUNGIN 100 MG in IV DEXTROSE 5% 100ML 100 ML IV SCH (08:17)
[2019-11-04] MEDS: INSULIN GLARGINE SYRINGE. SQ SCH ×2 (08:22→21:12)
[2019-11-04 08:42] LABS: MAGNESIUM 1.6 mg/dL (1.8-2.4); PHOSPHORUS 2.8 mg/dL (2.6-4.7)
[2019-11-04] MEDS ORDERED: DAPTOmycin (GENERIC) IVPB 450 MG in IV NORMAL SALINE 50ML 50 ML IV SCH (09:00)
[2019-11-04] MEDS: TPN PER PHARMACY MC PRN (09:00)
--- NOTE | 2019-11-04 09:03 | NUR ---
Pharmacy TPN Dosing Note S: FLORECITAPATTYANASTACIA is a 49 year old M Currently receiving Central Continuous TPN started 11/01/19 B:Pertinent PMH: NPO, critical illness Height: 5 feet, 7 inches Weight: 86.1 kg Current diet: NPO LABS: Sodium: 147 Potassium: 4.3 Chloride: 113 Calcium: 8.1 Corrected Calcium: 10.10 Magnesium: 1.8 CO2: 26 SCr: 0.7 Glucose: 205-244 Albumin: 1.5 AST: 98 ALT: 52 TPN FORMULA: TPN TYPE: Central Continuous AMINO ACIDS: 75 gm DEXTROSE: 225 gm LIPIDS: 20 gm SODIUM CHLORIDE: - mEq SODIUM ACETATE: 70 mEq SODIUM PHOSPHATE: 24 mmol POTASSIUM CHLORIDE: 50 mEq POTASSIUM ACETATE: - mEq POTASSIUM PHOSPHATE: - mmol MAGNESIUM: 16 mEq CALCIUM: 10 mEq INSULIN: units MULTIPLE VITAMIN: 10 ml TRACE ELEMENTS: 1 ml(s) TPN PLAN: Na trending up, no corresponding rise in BUN/SCr or ratio. Increased Na phos yesterday, also less intake. Will increase volume slightly and assess. No other changes. BMP/phos/mag in AM. R: Continue TPN ABOVE Will monitor electrolytes, glucose, and tolerance to TPN. MICHAEL PEREIRA [facility], 11/04/19 0938
--- NOTE | 2019-11-04 09:41 | PDOC ---
PULMONARY PROGRESS NOTES Subjective Patient off sedation and on cpap TRIAL doing well , fully awake Vitals Vital Signs Date Time Temp Pulse Resp B/P (MAP) Pulse Ox O2 Delivery O2 Flow Rate FiO2 11/04/19 09:00 98 11 135/82 (99) 100 Ventilator 11/04/19 08:00 100.7 100.7 11/03/19 20:17 15.0 General: Alert, No acute distress Lungs: Clear Cardiovascular: S1 Abdomen: Soft, Other Extremities: No Edema Skin: Warm Labs Laboratory Tests Test 11/02/19 10:30 11/02/19 12:38 11/02/19 18:12 11/02/19 23:41 Urine Collection Type Unknown Urine Color Yellow Urine Clarity Clear Urine pH 6.5 (<5.0-8.0) Urine Specific [place] 1.020 (1.000-1.030) Urine Protein Negative mg/dL (NEG-TRACE) Urine Glucose (UA) >=1000 mg/dL (NEG) Urine Ketones (Stick) Negative mg/dL (NEG) Urine Blood Negative (NEG) Urine Nitrite Negative (NEG) Urine Bilirubin Negative (NEG) Urine Urobilinogen Dipstick 0.2 mg/dL (0.2 mg/dL) Urine Leukocyte Esterase Negative (NEG) Urine RBC 1-2 /HPF (0-2) Urine WBC 1-4 /HPF (0-4) Urine Squamous Epithelial Cells Occ /LPF Urine Bacteria 0 /HPF (0-FEW) Urine Yeast Present /HPF Glucose (Fingerstick) 339 mg/dL (70-99) 283 mg/dL (70-99) 261 mg/dL (70-99) Test 11/03/19 05:58 11/03/19 06:00 11/03/19 08:00 11/03/19 13:24 Glucose (Fingerstick) 240 mg/dL (70-99) 290 mg/dL (70-99) White Blood Count 7.2 x10^3/uL (4.0-11.0) Red Blood Count 3.58 x10^6/uL (4.30-5.70) Hemoglobin 8.7 g/dL (13.0-17.5) Hematocrit 26.9 % (39.0-53.0) Mean Corpuscular Volume 75 fL (79-100) Mean Corpuscular Hemoglobin 24 pg (25-35) Mean Corpuscular Hemoglobin Concent 32 g/dL (31-37) Red Cell Distribution Width 21.6 % (11.5-14.5) Platelet Count 89 x10^3/uL (140-400) Neutrophils (%) (Auto) 65 % (31-73) Lymphocytes (%) (Auto) 27 % (24-48) Monocytes (%) (Auto) 4 % (0-9) Eosinophils (%) (Auto) 3 % (0-3) Basophils (%) (Auto) 0 % (0-3) Neutrophils # (Auto) 4.7 x10^3/uL (1.8-7.7) Lymphocytes # (Auto) 2.0 x10^3/uL (1.0-4.8) Monocytes # (Auto) 0.3 x10^3/uL (0.0-1.1) Eosinophils # (Auto) 0.2 x10^3/uL (0.0-0.7) Basophils # (Auto) 0.0 x10^3/uL (0.0-0.2) Sodium Level 144 mmol/L (136-145) Potassium Level 4.3 mmol/L (3.5-5.1) Chloride Level 111 mmol/L (98-107) Carbon Dioxide Level 27 mmol/L (21-32) Anion Gap 6 (6-14) Blood Urea Nitrogen 13 mg/dL (8-26) Creatinine 0.8 mg/dL (0.7-1.3) Estimated GFR (Cockcroft-Gault) 102.3 Glucose Level 254 mg/dL (70-99) Calcium Level 7.3 mg/dL (8.5-10.1) Phosphorus Level 2.0 mg/dL (2.6-4.7) Magnesium Level 1.8 mg/dL (1.8-2.4) Total Bilirubin 0.3 mg/dL (0.2-1.0) Direct Bilirubin 0.2 mg/dL (0.0-0.2) Aspartate Amino Transf (AST/SGOT) 39 U/L (15-37) Alanine Aminotransferase (ALT/SGPT) 25 U/L (16-63) Alkaline Phosphatase 138 U/L (46-116) Total Protein 4.4 g/dL (6.4-8.2) Albumin 1.5 g/dL (3.4-5.0) Lipase 235 U/L (73-393) O2 Saturation 98 % (92-99) Arterial Blood pH 7.47 (7.35-7.45) Arterial Blood pH (Temp corrected) 7.46 Arterial Blood pCO2 at Patient Temp 34 mmHg (35-46) Arterial Blood pCO2 (Temp correct) 34 mmHg Arterial Blood pO2 at Patient Temp 113 mmHg (75-108) Arterial Blood pO2 (Temp corrected) 115 mmHg Arterial Blood HCO3 24 mmol/L (21-28) Arterial Blood Base Excess 1 mmol/L (-3-3) FiO2 30 Test 11/03/19 18:37 11/03/19 23:55 11/04/19 04:40 11/04/19 06:12 Glucose (Fingerstick) 294 mg/dL (70-99) 238 mg/dL (70-99) 205 mg/dL (70-99) White Blood Count 4.7 x10^3/uL (4.0-11.0) Red Blood Count 3.31 x10^6/uL (4.30-5.70) Hemoglobin 8.0 g/dL (13.0-17.5) Hematocrit 24.9 % (39.0-53.0) Mean Corpuscular Volume 75 fL (79-100) Mean Corpuscular Hemoglobin 24 pg (25-35) Mean Corpuscular Hemoglobin Concent 32 g/dL (31-37) Red Cell Distribution Width 21.7 % (11.5-14.5) Platelet Count 70 x10^3/uL (140-400) Neutrophils (%) (Auto) 54 % (31-73) Lymphocytes (%) (Auto) 32 % (24-48) Monocytes (%) (Auto) 11 % (0-9) Eosinophils (%) (Auto) 3 % (0-3) Basophils (%) (Auto) 1 % (0-3) Neutrophils # (Auto) 2.6 x10^3/uL (1.8-7.7) Lymphocytes # (Auto) 1.5 x10^3/uL (1.0-4.8) Monocytes # (Auto) 0.5 x10^3/uL (0.0-1.1) Eosinophils # (Auto) 0.2 x10^3/uL (0.0-0.7) Basophils # (Auto) 0.0 x10^3/uL (0.0-0.2) Sodium Level 147 mmol/L (136-145) Potassium Level 4.3 mmol/L (3.5-5.1) Chloride Level 113 mmol/L (98-107) Carbon Dioxide Level 26 mmol/L (21-32) Anion Gap 8 (6-14) Blood Urea Nitrogen 17 mg/dL (8-26) Creatinine 0.7 mg/dL (0.7-1.3) Estimated GFR (Cockcroft-Gault) 119.4 BUN/Creatinine Ratio 24 (6-20) Glucose Level 244 mg/dL (70-99) Calcium Level 8.1 mg/dL (8.5-10.1) Phosphorus Level 2.8 mg/dL (2.6-4.7) Magnesium Level 1.6 mg/dL (1.8-2.4) Total Bilirubin 0.3 mg/dL (0.2-1.0) Direct Bilirubin 0.2 mg/dL (0.0-0.2) Aspartate Amino Transf (AST/SGOT) 98 U/L (15-37) Alanine Aminotransferase (ALT/SGPT) 52 U/L (16-63) Alkaline Phosphatase 150 U/L (46-116) Total Protein 5.2 g/dL (6.4-8.2) Albumin 1.5 g/dL (3.4-5.0) Albumin/Globulin Ratio 0.4 (1.0-1.7) Test 11/04/19 07:45 O2 Saturation 98 % (92-99) Arterial Blood pH 7.49 (7.35-7.45) Arterial Blood pCO2 at Patient Temp 33 mmHg (35-46) Arterial Blood pO2 at Patient Temp 133 mmHg (75-108) Arterial Blood HCO3 25 mmol/L (21-28) Arterial Blood Base Excess 1 mmol/L (-3-3) FiO2 30 Laboratory Tests Test 11/03/19 13:24 11/03/19 18:37 11/03/19 23:55 11/04/19 04:40 Glucose (Fingerstick) 290 mg/dL (70-99) 294 mg/dL (70-99) 238 mg/dL (70-99) White Blood Count 4.7 x10^3/uL (4.0-11.0) Red Blood Count 3.31 x10^6/uL (4.30-5.70) Hemoglobin 8.0 g/dL (13.0-17.5) Hematocrit 24.9 % (39.0-53.0) Mean Corpuscular Volume 75 fL (79-100) Mean Corpuscular Hemoglobin 24 pg (25-35) Mean Corpuscular Hemoglobin Concent 32 g/dL (31-37) Red Cell Distribution Width 21.7 % (11.5-14.5) Platelet Count 70 x10^3/uL (140-400) Neutrophils (%) (Auto) 54 % (31-73) Lymphocytes (%) (Auto) 32 % (24-48) Monocytes (%) (Auto) 11 % (0-9) Eosinophils (%) (Auto) 3 % (0-3) Basophils (%) (Auto) 1 % (0-3) Neutrophils # (Auto) 2.6 x10^3/uL (1.8-7.7) Lymphocytes # (Auto) 1.5 x10^3/uL (1.0-4.8) Monocytes # (Auto) 0.5 x10^3/uL (0.0-1.1) Eosinophils # (Auto) 0.2 x10^3/uL (0.0-0.7) Basophils # (Auto) 0.0 x10^3/uL (0.0-0.2) Sodium Level 147 mmol/L (136-145) Potassium Level 4.3 mmol/L (3.5-5.1) Chloride Level 113 mmol/L (98-107) Carbon Dioxide Level 26 mmol/L (21-32) Anion Gap 8 (6-14) Blood Urea Nitrogen 17 mg/dL (8-26) Creatinine 0.7 mg/dL (0.7-1.3) Estimated GFR (Cockcroft-Gault) 119.4 BUN/Creatinine Ratio 24 (6-20) Glucose Level 244 mg/dL (70-99) Calcium Level 8.1 mg/dL (8.5-10.1) Phosphorus Level 2.8 mg/dL (2.6-4.7) Magnesium Level 1.6 mg/dL (1.8-2.4) Total Bilirubin 0.3 mg/dL (0.2-1.0) Direct Bilirubin 0.2 mg/dL (0.0-0.2) Aspartate Amino Transf (AST/SGOT) 98 U/L (15-37) Alanine Aminotransferase (ALT/SGPT) 52 U/L (16-63) Alkaline Phosphatase 150 U/L (46-116) Total Protein 5.2 g/dL (6.4-8.2) Albumin 1.5 g/dL (3.4-5.0) Albumin/Globulin Ratio 0.4 (1.0-1.7) Test 11/04/19 06:12 11/04/19 07:45 Glucose (Fingerstick) 205 mg/dL (70-99) O2 Saturation 98 % (92-99) Arterial Blood pH 7.49 (7.35-7.45) Arterial Blood pCO2 at Patient Temp 33 mmHg (35-46) Arterial Blood pO2 at Patient Temp 133 mmHg (75-108) Arterial Blood HCO3 25 mmol/L (21-28) Arterial Blood Base Excess 1 mmol/L (-3-3) FiO2 30 Medications Active Scripts Medications Dose Route/Sig Max Daily Dose Days Date Category Dose Instructions Humalog (Insulin Lispro) 100 Unit/1 Ml Insuln.pen 0 Units SQ QIDACHS 14 09/16/19 Rx Culturelle (Lactobacillus Rhamnosus Gg) 1 Each Cap.sprink 1 Cap PO BID 30 09/16/19 Rx Pantoprazole Sodium (Pantoprazole Sodium) 40 Mg Tablet.dr 40 Mg PO DAILYAC 30 09/16/19 Rx Dok (Docusate Sodium) 100 Mg Capsule 100 Mg PO PRN BID PRN 30 09/16/19 Rx Klor-Con M20 (Potassium Chloride) 20 Meq Tab.er.prt 20 Meq PO DAILYWBKFT 14 09/16/19 Rx Proair Hfa (Albuterol Sulfate) 8.5 Gm Hfa.aer.ad 2.5 Mg NEB PRN Q4HRS PRN 14 09/16/19 Rx Clindamycin Hcl 300 Mg Capsule 600 Mg PO BID 09/11/19 Reported Lidocaine PATCH (Lidocaine) 1 Each Adh..patch 1 Each TP DAILY 03/12/19 Reported REMOVE AFTER 12 HOURS Lisinopril 5 Mg Tablet 1 Tab PO DAILY PRN 03/12/19 Reported Clonazepam 1 Mg Tablet 1 Mg PO BID 03/12/19 Reported [place] Carbonate 300 Mg Tablet 1 Tab PO BID 08/08/18 Reported Zanaflex (Tizanidine Hcl) 4 Mg Capsule 1 Cap PO TID PRN 08/25/15 Reported Janumet 50-1,000 Mg Tablet (Sitagliptin Phos/Metformin Hcl) 1 Each Tablet 1 Tab PO BID 01/17/15 Reported Doxepin Hcl 50 Mg Capsule 300 Mg PO HS 01/17/15 Reported Comments cxr 10/31 reviewed. no ptx Impression . IMPRESSION: 1. Acute hypoxemic respiratory failure secondary to acute metabolic acidosis. 2. Diabetic ketoacidosis. 3. Septic shock.resolved 4. Bacteremia, gram-positive cocci, / bottles. 5. Recent laparoscopic cholecystectomy. 6. Acute on chronic kidney injury. 7. COVID-19, suspect. 8. Tobacco dependent. 9. Chronic obstructive pulmonary disease, unknown FEV1. 10. Small left-sided pneumo small seen on ct abd, not seen on f/u cxr 10/31 11. New pseudocyst fluid collection, seen on CT abdomen, per GI. CT abdomen pelvis IMPRESSION: 1. Small moderate left pneumothorax, incompletely evaluated. 2. Interval development of a 6.3 cm pseudocyst along the pancreatic body. 3. Another 6 cm fluid collection along the medial aspect of the hepatic caudate lobe also likely reflects a pseudocyst. 4. Right colonic wall thickening. Correlate for colitis. 5. A rim calcified 10 mm mass along the left kidney medially may be a complicated cyst but is indeterminate. Sonographic follow-up could be performed in 6 months. Plan . Spoke with at bedside ABG adequate this am Doing well on CPAP trial proceed with extubation Follow GI input IV antibiotics Monitor blood sugars IV levo , wean dose Monitor H&H 10/31 chest x-ray shows no pneumothorax Total cumulative critical care time of 30 minutes, reviewing data, chest x-ray, labs, formulating a plan The above was discussed with the at the bedside, HAMMAD MORILLO MD Nov 04, 2019 09:41
--- NOTE | 2019-11-04 09:56 | NUR ---
Verbal order to extubate received at [address] Edwards. Patient extubated at 0945 to 2L NC.
--- NOTE | 2019-11-04 10:31 | PDOC ---
SURGICAL PROGRESS NOTE Subjective Patient sedated and ventilated Vital Signs Vital Signs Date Time Temp Pulse Resp B/P (MAP) Pulse Ox O2 Delivery O2 Flow Rate FiO2 11/04/19 09:00 98 11 135/82 (99) 100 Ventilator 11/04/19 08:00 100.7 100.7 11/03/19 20:17 15.0 I&O Intake and Output 11/04/19 07:00 Intake Total 1000 ml Output Total 1845 ml Balance -845 ml IV Total 1000 ml Output Urine Total 1845 ml PATIENT HAS A RUSSELL: Yes General: Other (Sedated and ventilated) Abdomen: Soft, No tenderness Labs Laboratory Tests Test 11/02/19 10:30 11/02/19 12:38 11/02/19 18:12 11/02/19 23:41 Urine Collection Type Unknown Urine Color Yellow Urine Clarity Clear Urine pH 6.5 (<5.0-8.0) Urine Specific [place] 1.020 (1.000-1.030) Urine Protein Negative mg/dL (NEG-TRACE) Urine Glucose (UA) >=1000 mg/dL (NEG) Urine Ketones (Stick) Negative mg/dL (NEG) Urine Blood Negative (NEG) Urine Nitrite Negative (NEG) Urine Bilirubin Negative (NEG) Urine Urobilinogen Dipstick 0.2 mg/dL (0.2 mg/dL) Urine Leukocyte Esterase Negative (NEG) Urine RBC 1-2 /HPF (0-2) Urine WBC 1-4 /HPF (0-4) Urine Squamous Epithelial Cells Occ /LPF Urine Bacteria 0 /HPF (0-FEW) Urine Yeast Present /HPF Glucose (Fingerstick) 339 mg/dL (70-99) 283 mg/dL (70-99) 261 mg/dL (70-99) Test 11/03/19 05:58 11/03/19 06:00 11/03/19 08:00 11/03/19 13:24 Glucose (Fingerstick) 240 mg/dL (70-99) 290 mg/dL (70-99) White Blood Count 7.2 x10^3/uL (4.0-11.0) Red Blood Count 3.58 x10^6/uL (4.30-5.70) Hemoglobin 8.7 g/dL (13.0-17.5) Hematocrit 26.9 % (39.0-53.0) Mean Corpuscular Volume 75 fL (79-100) Mean Corpuscular Hemoglobin 24 pg (25-35) Mean Corpuscular Hemoglobin Concent 32 g/dL (31-37) Red Cell Distribution Width 21.6 % (11.5-14.5) Platelet Count 89 x10^3/uL (140-400) Neutrophils (%) (Auto) 65 % (31-73) Lymphocytes (%) (Auto) 27 % (24-48) Monocytes (%) (Auto) 4 % (0-9) Eosinophils (%) (Auto) 3 % (0-3) Basophils (%) (Auto) 0 % (0-3) Neutrophils # (Auto) 4.7 x10^3/uL (1.8-7.7) Lymphocytes # (Auto) 2.0 x10^3/uL (1.0-4.8) Monocytes # (Auto) 0.3 x10^3/uL (0.0-1.1) Eosinophils # (Auto) 0.2 x10^3/uL (0.0-0.7) Basophils # (Auto) 0.0 x10^3/uL (0.0-0.2) Sodium Level 144 mmol/L (136-145) Potassium Level 4.3 mmol/L (3.5-5.1) Chloride Level 111 mmol/L (98-107) Carbon Dioxide Level 27 mmol/L (21-32) Anion Gap 6 (6-14) Blood Urea Nitrogen 13 mg/dL (8-26) Creatinine 0.8 mg/dL (0.7-1.3) Estimated GFR (Cockcroft-Gault) 102.3 Glucose Level 254 mg/dL (70-99) Calcium Level 7.3 mg/dL (8.5-10.1) Phosphorus Level 2.0 mg/dL (2.6-4.7) Magnesium Level 1.8 mg/dL (1.8-2.4) Total Bilirubin 0.3 mg/dL (0.2-1.0) Direct Bilirubin 0.2 mg/dL (0.0-0.2) Aspartate Amino Transf (AST/SGOT) 39 U/L (15-37) Alanine Aminotransferase (ALT/SGPT) 25 U/L (16-63) Alkaline Phosphatase 138 U/L (46-116) Total Protein 4.4 g/dL (6.4-8.2) Albumin 1.5 g/dL (3.4-5.0) Lipase 235 U/L (73-393) O2 Saturation 98 % (92-99) Arterial Blood pH 7.47 (7.35-7.45) Arterial Blood pH (Temp corrected) 7.46 Arterial Blood pCO2 at Patient Temp 34 mmHg (35-46) Arterial Blood pCO2 (Temp correct) 34 mmHg Arterial Blood pO2 at Patient Temp 113 mmHg (75-108) Arterial Blood pO2 (Temp corrected) 115 mmHg Arterial Blood HCO3 24 mmol/L (21-28) Arterial Blood Base Excess 1 mmol/L (-3-3) FiO2 30 Test 11/03/19 18:37 11/03/19 23:55 11/04/19 04:40 11/04/19 06:12 Glucose (Fingerstick) 294 mg/dL (70-99) 238 mg/dL (70-99) 205 mg/dL (70-99) White Blood Count 4.7 x10^3/uL (4.0-11.0) Red Blood Count 3.31 x10^6/uL (4.30-5.70) Hemoglobin 8.0 g/dL (13.0-17.5) Hematocrit 24.9 % (39.0-53.0) Mean Corpuscular Volume 75 fL (79-100) Mean Corpuscular Hemoglobin 24 pg (25-35) Mean Corpuscular Hemoglobin Concent 32 g/dL (31-37) Red Cell Distribution Width 21.7 % (11.5-14.5) Platelet Count 70 x10^3/uL (140-400) Neutrophils (%) (Auto) 54 % (31-73) Lymphocytes (%) (Auto) 32 % (24-48) Monocytes (%) (Auto) 11 % (0-9) Eosinophils (%) (Auto) 3 % (0-3) Basophils (%) (Auto) 1 % (0-3) Neutrophils # (Auto) 2.6 x10^3/uL (1.8-7.7) Lymphocytes # (Auto) 1.5 x10^3/uL (1.0-4.8) Monocytes # (Auto) 0.5 x10^3/uL (0.0-1.1) Eosinophils # (Auto) 0.2 x10^3/uL (0.0-0.7) Basophils # (Auto) 0.0 x10^3/uL (0.0-0.2) Sodium Level 147 mmol/L (136-145) Potassium Level 4.3 mmol/L (3.5-5.1) Chloride Level 113 mmol/L (98-107) Carbon Dioxide Level 26 mmol/L (21-32) Anion Gap 8 (6-14) Blood Urea Nitrogen 17 mg/dL (8-26) Creatinine 0.7 mg/dL (0.7-1.3) Estimated GFR (Cockcroft-Gault) 119.4 BUN/Creatinine Ratio 24 (6-20) Glucose Level 244 mg/dL (70-99) Calcium Level 8.1 mg/dL (8.5-10.1) Phosphorus Level 2.8 mg/dL (2.6-4.7) Magnesium Level 1.6 mg/dL (1.8-2.4) Total Bilirubin 0.3 mg/dL (0.2-1.0) Direct Bilirubin 0.2 mg/dL (0.0-0.2) Aspartate Amino Transf (AST/SGOT) 98 U/L (15-37) Alanine Aminotransferase (ALT/SGPT) 52 U/L (16-63) Alkaline Phosphatase 150 U/L (46-116) Total Protein 5.2 g/dL (6.4-8.2) Albumin 1.5 g/dL (3.4-5.0) Albumin/Globulin Ratio 0.4 (1.0-1.7) Test 11/04/19 07:45 O2 Saturation 98 % (92-99) Arterial Blood pH 7.49 (7.35-7.45) Arterial Blood pCO2 at Patient Temp 33 mmHg (35-46) Arterial Blood pO2 at Patient Temp 133 mmHg (75-108) Arterial Blood HCO3 25 mmol/L (21-28) Arterial Blood Base Excess 1 mmol/L (-3-3) FiO2 30 Laboratory Tests Test 11/03/19 13:24 11/03/19 18:37 11/03/19 23:55 11/04/19 04:40 Glucose (Fingerstick) 290 mg/dL (70-99) 294 mg/dL (70-99) 238 mg/dL (70-99) White Blood Count 4.7 x10^3/uL (4.0-11.0) Red Blood Count 3.31 x10^6/uL (4.30-5.70) Hemoglobin 8.0 g/dL (13.0-17.5) Hematocrit 24.9 % (39.0-53.0) Mean Corpuscular Volume 75 fL (79-100) Mean Corpuscular Hemoglobin 24 pg (25-35) Mean Corpuscular Hemoglobin Concent 32 g/dL (31-37) Red Cell Distribution Width 21.7 % (11.5-14.5) Platelet Count 70 x10^3/uL (140-400) Neutrophils (%) (Auto) 54 % (31-73) Lymphocytes (%) (Auto) 32 % (24-48) Monocytes (%) (Auto) 11 % (0-9) Eosinophils (%) (Auto) 3 % (0-3) Basophils (%) (Auto) 1 % (0-3) Neutrophils # (Auto) 2.6 x10^3/uL (1.8-7.7) Lymphocytes # (Auto) 1.5 x10^3/uL (1.0-4.8) Monocytes # (Auto) 0.5 x10^3/uL (0.0-1.1) Eosinophils # (Auto) 0.2 x10^3/uL (0.0-0.7) Basophils # (Auto) 0.0 x10^3/uL (0.0-0.2) Sodium Level 147 mmol/L (136-145) Potassium Level 4.3 mmol/L (3.5-5.1) Chloride Level 113 mmol/L (98-107) Carbon Dioxide Level 26 mmol/L (21-32) Anion Gap 8 (6-14) Blood Urea Nitrogen 17 mg/dL (8-26) Creatinine 0.7 mg/dL (0.7-1.3) Estimated GFR (Cockcroft-Gault) 119.4 BUN/Creatinine Ratio 24 (6-20) Glucose Level 244 mg/dL (70-99) Calcium Level 8.1 mg/dL (8.5-10.1) Phosphorus Level 2.8 mg/dL (2.6-4.7) Magnesium Level 1.6 mg/dL (1.8-2.4) Total Bilirubin 0.3 mg/dL (0.2-1.0) Direct Bilirubin 0.2 mg/dL (0.0-0.2) Aspartate Amino Transf (AST/SGOT) 98 U/L (15-37) Alanine Aminotransferase (ALT/SGPT) 52 U/L (16-63) Alkaline Phosphatase 150 U/L (46-116) Total Protein 5.2 g/dL (6.4-8.2) Albumin 1.5 g/dL (3.4-5.0) Albumin/Globulin Ratio 0.4 (1.0-1.7) Test 11/04/19 06:12 11/04/19 07:45 Glucose (Fingerstick) 205 mg/dL (70-99) O2 Saturation 98 % (92-99) Arterial Blood pH 7.49 (7.35-7.45) Arterial Blood pCO2 at Patient Temp 33 mmHg (35-46) Arterial Blood pO2 at Patient Temp 133 mmHg (75-108) Arterial Blood HCO3 25 mmol/L (21-28) Arterial Blood Base Excess 1 mmol/L (-3-3) FiO2 30 Problem List Problems Medical Problems: (1) DKA (diabetic ketoacidoses) Status: Acute (2) Hypokalemia Status: Acute (3) Respiratory failure Status: Acute (4) Severe sepsis Status: Acute (5) Suspected 2019-nCoV infection Status: Acute Assessment/Plan Sepsis unknown origin He is status post laparoscopic cholecystectomy by Dr. Alcantara who will be in tomorrow to see him No surgical recommendations at this time Justicifation of Admission Dx: Justifications for Admission: Justification of Admission Dx: Yes Comminuty Aquired Pneumonia: Hemodynamic Instability Acute Renal Failure: RF Can't Be Managed Outpt Sepsis: Altered Mental Status DKA: DKA JAMAL ARREDONDO MD Nov 04, 2019 10:30
[2019-11-04] MEDS ORDERED: DOCUSATE SODIUM 100 MG CAPSULE. PO PRN (16:30)
[2019-11-04] MEDS ORDERED: clonazePAM 0.5 MG TABLET PO PRN (16:30)
[2019-11-04] MEDS ORDERED: ALBUTEROL SULFATE 2.5 MG/3 ML NEBU. NEB PRN (16:30)
[2019-11-04] MEDS ORDERED: ACETAMINOPHEN 325 MG TABLET. PO PRN (16:30)
[2019-11-04] MEDS ORDERED: tiZANidine 4 MG TABLET. PO PRN (16:45)
[2019-11-04] MEDS: LITHIUM CARBONATE ER 300 MG TABLET.ER PO SCH ×2 (21:00→21:10)
[2019-11-04] MEDS: DOXEPIN 150 MG PO SCH ×2 (21:00→21:10)
[2019-11-04] MEDS: LACTOBACILLUS RHAMNOSUS GG 1 CAPSULE. PO SCH ×2 (21:00→21:10)
[2019-11-04] MEDS: NYSTATIN TOPICAL POWDER 15GM BOTTLE. TP SCH (21:10)
[2019-11-04] MEDS ORDERED: [UNRECOGNIZED DRUG - OTHER] IV SCH ×10 (22:00)
[2019-11-04] MEDS ORDERED: DEXTROSE 70% IV SCH ×10 (22:00)
[2019-11-04] MEDS ORDERED: AMINO ACID IV SCH ×10 (22:00)
[2019-11-04] MEDS ORDERED: TOTAL PARENTERAL NUTRITION IV SCH ×10 (22:00)
--- NOTE | 2019-11-04 22:00 | NUR ---
Patient given fluids ice chips throughout the day post extubation. This RN attempted to give 2100 meds with sips of water. Patient immediately coughed back up the water, pills, and what appears to be gastric content. Patient says he did not feel nauseous and that the sensation to throw up came on suddenly. Patient educated about holding off on additional PO fluids and having [employer] come in and further investigate swallowing ability.
[2019-11-05] VITALS (17 sets, daily range): BP systolic 132–164; BP diastolic 73–108
[2019-11-05] MEDS: MEROPENEM 500 MG in IV NORMAL SALINE 50ML 50 ML IV SCH ×4 (05:55→23:07)
[2019-11-05] MEDS: INSULIN LISPRO 300 UNITS/3 ML VIAL. SQ SCH ×3 (05:56→18:34)
[2019-11-05 06:36] LABS: BASO % 1 % (0-3); EOS % 1 % (0-3); HEMATOCRIT 25.2 % (39.0-53.0); HEMOGLOBIN 8.2 g/dL (13.0-17.5); LYMPH % 22 % (24-48); MEAN CORPUSCULAR HEMOGLOBIN 24 pg (25-35); MEAN CORPUSCULAR HGB CONC 32 g/dL (31-37); MEAN CORPUSCULAR VOLUME 75 fL (79-100); MONO # 0.5 x10^3/uL (0.0-1.1); MONO % 12 % (0-9); NEUT # 2.8 x10^3/uL (1.8-7.7); NEUT % 64 % (31-73); PLATELET COUNT 117 x10^3/uL (140-400); RED BLOOD COUNT 3.36 x10^6/uL (4.30-5.70); RED CELL DISTRIBUTION WIDTH 21.8 % (11.5-14.5); WHITE BLOOD COUNT 4.4 x10^3/uL (4.0-11.0)
[2019-11-05 06:52] LABS: ALBUMIN 1.7 g/dL (3.4-5.0); ALBUMIN/GLOBULIN RATIO 0.4 (1.0-1.7); CALCIUM 8.3 mg/dL (8.5-10.1); CREATININE 0.8 mg/dL (0.7-1.3); GFR 102.3; MAGNESIUM 1.8 mg/dL (1.8-2.4); PHOSPHORUS 4.1 mg/dL (2.6-4.7); POTASSIUM 4.3 mmol/L (3.5-5.1); TOTAL BILIRUBIN 0.4 mg/dL (0.2-1.0); TOTAL PROTEIN 5.7 g/dL (6.4-8.2)
--- NOTE | 2019-11-05 07:40 | PDOC ---
Infectious Disease Note Subjective Subjective Doing ok. Hungry. No pain No F/C/S/N/V/rash ROS ROS o/w neg Vital Sign Vital Signs Vital Signs Date Time Temp Pulse Resp B/P (MAP) Pulse Ox O2 Delivery O2 Flow Rate FiO2 11/05/19 06:00 114 16 149/88 (108) 98 Room Air 11/05/19 04:00 99.5 99.5 Physical Exam PHYSICAL EXAM GENERAL: Alert and sitting up in bed. NAD HEENT: Normocephalic, atraumatic, nml conj. OC/Op -clear NECK: Supple, no JVD, no lymphadenopathy, no thyromegaly. LUNGS: Decreased breath sounds at the bases, otherwise, clear. HEART: S1, S2, tachycardia. No murmurs. ABDOMEN: Soft, nontender, bowel sounds present. EXTREMITIES: No cyanosis, no clubbing, no edema. Negative Nestor's sign. MUSCULOSKELETAL: Previous left knee surgery. Incision scar intact. No effusion. No surrounding erythema, no fluctuance. Nestor's negative. DERMATOLOGIC: Warm, dry. No generalized rash. NEUROLOGIC: Sedated. PSYCHIATRIC: Sedated. LINES: Left central line looks clean. PIV looks clean. Labs Lab Laboratory Tests Test 11/04/19 07:45 11/04/19 13:10 11/04/19 17:54 11/04/19 21:07 O2 Saturation 98 % (92-99) Arterial Blood pH 7.49 (7.35-7.45) Arterial Blood pCO2 at Patient Temp 33 mmHg (35-46) Arterial Blood pO2 at Patient Temp 133 mmHg (75-108) Arterial Blood HCO3 25 mmol/L (21-28) Arterial Blood Base Excess 1 mmol/L (-3-3) FiO2 30 Glucose (Fingerstick) 245 mg/dL (70-99) 284 mg/dL (70-99) 266 mg/dL (70-99) Test 11/04/19 23:40 11/05/19 05:54 11/05/19 06:00 Glucose (Fingerstick) 312 mg/dL (70-99) 265 mg/dL (70-99) White Blood Count 4.4 x10^3/uL (4.0-11.0) Red Blood Count 3.36 x10^6/uL (4.30-5.70) Hemoglobin 8.2 g/dL (13.0-17.5) Hematocrit 25.2 % (39.0-53.0) Mean Corpuscular Volume 75 fL (79-100) Mean Corpuscular Hemoglobin 24 pg (25-35) Mean Corpuscular Hemoglobin Concent 32 g/dL (31-37) Red Cell Distribution Width 21.8 % (11.5-14.5) Platelet Count 117 x10^3/uL (140-400) Neutrophils (%) (Auto) 64 % (31-73) Lymphocytes (%) (Auto) 22 % (24-48) Monocytes (%) (Auto) 12 % (0-9) Eosinophils (%) (Auto) 1 % (0-3) Basophils (%) (Auto) 1 % (0-3) Neutrophils # (Auto) 2.8 x10^3/uL (1.8-7.7) Lymphocytes # (Auto) 1.0 x10^3/uL (1.0-4.8) Monocytes # (Auto) 0.5 x10^3/uL (0.0-1.1) Eosinophils # (Auto) 0.0 x10^3/uL (0.0-0.7) Basophils # (Auto) 0.0 x10^3/uL (0.0-0.2) Sodium Level 144 mmol/L (136-145) Potassium Level 4.3 mmol/L (3.5-5.1) Chloride Level 111 mmol/L (98-107) Carbon Dioxide Level 25 mmol/L (21-32) Anion Gap 8 (6-14) Blood Urea Nitrogen 20 mg/dL (8-26) Creatinine 0.8 mg/dL (0.7-1.3) Estimated GFR (Cockcroft-Gault) 102.3 BUN/Creatinine Ratio 25 (6-20) Glucose Level 265 mg/dL (70-99) Calcium Level 8.3 mg/dL (8.5-10.1) Phosphorus Level 4.1 mg/dL (2.6-4.7) Magnesium Level 1.8 mg/dL (1.8-2.4) Total Bilirubin 0.4 mg/dL (0.2-1.0) Aspartate Amino Transf (AST/SGOT) 98 U/L (15-37) Alanine Aminotransferase (ALT/SGPT) 86 U/L (16-63) Alkaline Phosphatase 166 U/L (46-116) Total Protein 5.7 g/dL (6.4-8.2) Albumin 1.7 g/dL (3.4-5.0) Albumin/Globulin Ratio 0.4 (1.0-1.7) Micro Microbiology 11/04/19 Blood Culture - Preliminary, Resulted NO GROWTH AFTER 1 DAY 10/30/19 Urine Culture - Final, Complete Objective Assessment Fever - low grade - could be from underlying pancreatic pseudocyst Septic shock POA from strep group B bacteremia Group B strep bacteremia 10/29 POA source likely GI Blood cultures 10/31 staph hemolyticus possible contaminant / Encephalopathy present on admission Acute respiratory failure status post intubation in the ED, Pneumothorax stable Lactic acidosis. Likely factorial Diabetic ketoacidosis. Acute kidney injury with underlying CKD.- better Lymphopenia. Coagulopathy. Status post vitamin K Nausea and vomiting, chronically since last surgery with gallbladder. GI bleed Recent Pancreatitis, status post laparoscopic cholecystectomy on 09/14/2019.;now with pseudocyst/fluid collection Weight loss due to poor p.o. 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 Currently well healed. Hypertension. Bipolar disorder. Anemia Thrombocytopenia High BNP and troponin leak Intolerance to Daptomycin with nausea, tolerated it twice for weeks in the past Last year. on chronic suppressive clindamycin Plan Plan of Care Continue meropenem 10/31 DC Daptomycin 11/03 (allergy) Start linezolid 11/03 and micafungin 11/03 f/u repeat blood culture Pulmonary ,hematology GI team following Monitor labs Continue supportive care. Will need to restart prophylactic abx at discharge Discussed with nursing staff. VELIA NATH MD Nov 05, 2019 07:40
[2019-11-05] MEDS: POTASSIUM CHLORIDE 20 MEQ TABLET.ER. PO SCH (08:00)
[2019-11-05] MEDS: INSULIN GLARGINE SYRINGE. SQ SCH ×2 (08:35→22:33)
[2019-11-05] MEDS: LACTOBACILLUS RHAMNOSUS GG 1 CAPSULE. PO SCH ×3 (09:03→22:28)
[2019-11-05] MEDS: PANTOPRAZOLE 40 MG TABLET.DR. PO SCH (09:03)
[2019-11-05] MEDS: LISINOPRIL 5 MG TABLET. PO SCH (09:03)
[2019-11-05] MEDS: LITHIUM CARBONATE ER 300 MG TABLET.ER PO SCH ×2 (09:03→21:00)
[2019-11-05] MEDS: MICAFUNGIN 100 MG in IV DEXTROSE 5% 100ML 100 ML IV SCH (09:19)
--- NOTE | 2019-11-05 09:39 | PDOC2 ---
CONSULT Date of Consult Date of Consult DATE: 11/05/19 TIME: 09:36 Reason for Consult Reason for Consult: Courtesy, history of multiple surgeries left knee with reimplantation left total knee most recently Referring Physician Referring Physician: Dr. Melton Past Medical History Cardiovascular: HTN Heme/Onc: No pertinent hx Hepatobiliary: No pertinent hx Psych: No pertinent hx, Bipolar, Other Rheumatologic: No pertinent hx Endocrine: Hypothyroidism Past Surgical History Past Surgical History: Cholecystectomy, Total knee replacement Family History Family History: No Significant, High Cholestrol, Hypertension Social History <1 pack per day ALCOHOL: rare Drugs: None Current Problem List Problem List Problems Medical Problems: (1) DKA (diabetic ketoacidoses) Status: Acute (2) Hypokalemia Status: Acute (3) Respiratory failure Status: Acute (4) Severe sepsis Status: Acute (5) Suspected 2019-nCoV infection Status: Acute Current Medications Current Medications Current Medications Midazolam HCl 100 ml @ 1 mls/hr 1X ONCE IV Last administered on 10/30/19at 10: 40; Start 10/30/19 at 10:30; Stop 11/01/19 at 08:11; Status DC Midazolam HCl 50 mg/Sodium Chloride 50 ml @ 0 mls/hr 1X ONCE IV ; Start 10/30/19 at 10:30; Stop 10/30/19 at 10:31; Status UNV Etomidate (Amidate) 20 mg 1X ONCE IV Last administered on 10/30/19at 10:38; Start 10/30/19 at 10:30; Stop 10/30/19 at 10:32; Status DC Succinylcholine Chloride (Anectine) 100 mg 1X ONCE IV Last administered on 10/30/19at 10:38; Start 10/30/19 at 10:30; Stop 10/30/19 at 10:32; Status DC Norepinephrine Bitartrate 8 mg/ Dextrose 258 ml @ 13.177 mls/ hr 1X ONCE IV Last administered on 10/30/19at 10:39; Start 10/30/19 at 10:25; Stop 10/31/19 at 05:59; Status DC Piperacillin Sod/ Tazobactam Sod 3.375 gm/Sodium Chloride 50 ml @ 100 mls/hr 1X ONCE IV Last administered on 10/30/19at 10:42; Start 10/30/19 at 11:00; Stop 10/30/19 at 11:29; Status DC Rocuronium [place] (Zemuron) 10 mg 1X ONCE IV ; Start 10/30/19 at 10:45; Stop 10/30/19 at 10:46; Status Cancel Sodium Chloride 1,000 ml @ 1,000 mls/hr 1X ONCE IV Last administered on 10/30/19at 10:43; Start 10/30/19 at 10:45; Stop 10/30/19 at 11:44; Status DC Sodium Chloride 1,000 ml @ 1,000 mls/hr 1X ONCE IV Last administered on 10/30/19at 10:43; Start 10/30/19 at 10:45; Stop 10/30/19 at 11:44; Status DC Rocuronium [place] (Zemuron) 50 mg 1X ONCE IV Last administered on 10/30/19at 10:45; Start 10/30/19 at 10:45; Stop 10/30/19 at 10:46; Status DC Potassium Chloride/Water 100 ml @ 100 mls/hr Q1H IV Last administered on 10/30/19at 12:56; Start 10/30/19 at 12:00; Stop 10/30/19 at 13:59; Status DC Insulin Human Regular 100 ml @ 0 mls/hr 1X ONCE IV Last administered on 10/30/19at 12:55; Start 10/30/19 at 12:00; Stop 10/30/19 at 12:01; Status DC Sodium Chloride 1,000 ml @ 1,000 mls/hr 1X ONCE IV Last administered on at 12:45; Start 10/30/19 at 12:15; Stop 10/30/19 at 13:14; Status DC Ondansetron HCl (Zofran) 4 mg PRN Q8HRS PRN IV NAUSEA/VOMITING; Start 10/30/19 at 12:30; Stop 10/31/19 at 12:29; Status DC Sodium Chloride 1,000 ml @ 125 mls/hr Q8H IV Last administered on 10/30/19at 15:20; Start 10/30/19 at 12:25; Stop 10/31/19 at 07:13; Status DC Dexmedetomidine HCl 400 mcg/ Sodium Chloride 100 ml @ 0 mls/hr CONT PRN IV SEE COMMENTS Last administered on 11/04/19at 06:04; Start 10/30/19 at 15:00 Fentanyl Citrate (Fentanyl 2ml Vial) 25 mcg PRN Q1HR PRN IV PAIN; Start 10/30/19 at 15:00; Status UNV Lorazepam (Ativan Inj) 0.5 mg PRN Q2HRS PRN IV AGITATION; Start 10/30/19 at 15:00; Status UNV Sodium Chloride 500 ml @ 500 mls/hr 1X PRN PRN IV COMMENTS; Start 10/30/19 at 15:00 Atropine Sulfate (ATROPINE 0.5mg SYRINGE) 0.5 mg PRN Q5MIN PRN IV SEE COMMENTS; Start 10/30/19 at 15:00 Midazolam HCl 100 ml @ 1 mls/hr CONT PRN IV SEE COMMENTS Last administered on 11/02/19at 08:30; Start 10/30/19 at 17:00 Pantoprazole Sodium (PROTONIX VIAL for IV PUSH) 40 mg DAILYAC IVP Last administered on 10/31/19at 07:23; Start 10/31/19 at 07:30; Stop 10/31/19 at 11:55; Status DC Pantoprazole Sodium (PROTONIX VIAL for IV PUSH) 40 mg 1X ONCE IVP Last administered on 10/30/19at 22:00; Start 10/30/19 at 18:45; Stop 10/30/19 at 18:47; Status DC Phytonadione (Vitamin K Ampule) 5 mg 1X ONCE SQ Last administered on 10/30/19at 20:01; Start 10/30/19 at 18:45; Stop 10/30/19 at 18:47; Status DC Fentanyl Citrate 30 ml @ 0 mls/hr CONT PRN IV SEE PROTOCOL Last administered on 11/04/19at 06:15; Start 10/30/19 at 19:00 Dextrose/Sodium Chloride 1,000 ml @ 250 mls/hr Q4H IV Last administered on 11/01/19at 12:40; Start 10/30/19 at 19:30; Stop 11/01/19 at 17:29; Status DC Potassium Phosphate 13.6 mmol/Sodium Chloride 254.5333 ml @ 127.... Q2H IV Last administered on 10/30/19at 22:00; Start 10/30/19 at 20:00; Stop 10/30/19 at 23:59; Status DC Piperacillin Sod/ Tazobactam Sod 2.25 gm/Sodium Chloride 50 ml @ 100 mls/hr Q6HRS IV Last administered on 10/31/19at 12:28; Start 10/31/19 at 00:00; Stop 10/31/19 at 14:01; Status DC Daptomycin 540 mg/ Sodium Chloride 50 ml @ 100 mls/hr ONCE ONCE IV Last administered on 10/30/19at 22:09; Start 10/30/19 at 22:00; Stop 10/30/19 at 22:29; Status DC Norepinephrine Bitartrate 8 mg/ Dextrose 258 ml @ 17.554 mls/ hr CONT PRN IV PER PROTOCOL Last administered on 11/03/19at 00:09; Start 10/30/19 at 22:15 Potassium Chloride/Water 100 ml @ 100 mls/hr Q1H IV Last administered on 10/31/19at 01:30; Start 10/30/19 at 23:30; Stop 10/31/19 at 02:29; Status DC Dextrose (Dextrose 50%-Water Syringe) 25 gm PRN Q10MIN PRN IV HYPOGLYCEMIA Last administered on 10/31/19at 02:39; Start 10/31/19 at 02:30 Potassium Chloride/Water 100 ml @ 100 mls/hr Q1H IV Last administered on 10/31/19at 04:39; Start 10/31/19 at 03:30; Stop 10/31/19 at 05:29; Status DC Insulin Human Regular 100 unit/ Sodium Chloride 101 ml @ 0 mls/hr CONT PRN IV SEE I/O RECORD Last administered on 11/01/19at 14:58; Start 10/31/19 at 03:15; Stop 11/04/19 at 08:38; Status DC Potassium Chloride/Water 100 ml @ 100 mls/hr Q1H IV Last administered on 10/31/19at 08:27; Start 10/31/19 at 07:30; Stop 10/31/19 at 09:29; Status DC Potassium Phosphate 13.6 mmol/Sodium Chloride 254.5333 ml @ 127.... Q2H IV Last administered on 10/31/19at 13:18; Start 10/31/19 at 11:00; Stop 10/31/19 at 14:59; Status DC Pantoprazole Sodium (PROTONIX VIAL for IV PUSH) 40 mg [id number] IVP Last administered on 11/04/19at 06:07; Start 10/31/19 at 18:00; Stop 11/04/19 at 16:29; Status DC Phytonadione (Vitamin K Ampule) 10 mg 1X ONCE SQ Last administered on 10/31/19at 12:29; Start 10/31/19 at 12:00; Stop 10/31/19 at 12:01; Status DC Linezolid/Dextrose 300 ml @ 300 mls/hr Q12HR IV Last administered on 11/02/19at 08:13; Start 10/31/19 at 14:00; Stop 11/02/19 at 08:50; Status DC Piperacillin Sod/ Tazobactam Sod 3.375 gm/Sodium Chloride 50 ml @ 100 mls/hr Q6HRS IV Last administered on 10/31/19at 18:06; Start 10/31/19 at 18:00; Stop 10/31/19 at 18:32; Status DC Acetaminophen (Tylenol Supp) 650 mg PRN Q6HRS PRN VT MILD PAIN / TEMP > 100.3'F Last administered on 11/04/19at 00:18; Start 10/31/19 at 16:00 Potassium Chloride/Water 100 ml @ 100 mls/hr Q1H IV Last administered on 10/31/19at 19:07; Start 10/31/19 at 18:00; Stop 10/31/19 at 19:59; Status DC Magnesium Sulfate 100 ml @ 25 mls/hr 1X ONCE IV Last administered on 10/31/19at 18:07; Start 10/31/19 at 18:00; Stop 10/31/19 at 21:59; Status DC Meropenem 500 mg/ Sodium Chloride 50 ml @ 100 mls/hr Q6HRS IV Last administered on 11/05/19at 05:55; Start 11/01/19 at 00:00 Potassium Chloride/Water 100 ml @ 100 mls/hr Q1H IV Last administered on 10/31/19at 23:45; Start 10/31/19 at 22:00; Stop 10/31/19 at 23:59; Status DC Potassium Chloride/Water 100 ml @ 100 mls/hr Q1H IV Last administered on 11/01/19at 03:45; Start 11/01/19 at 02:45; Stop 11/01/19 at 04:44; Status DC Potassium Phosphate 15 mmol/ Sodium Chloride 255 ml @ 62.5 mls/hr 1X ONCE IV Last administered on 11/01/19at 02:48; Start 11/01/19 at 02:45; Stop 11/01/19 at 06:49; Status DC Potassium Phosphate 13.6 mmol/Sodium Chloride 254.5333 ml @ 127.... 1X ONCE IV Last administered on 11/01/19at 09:17; Start 11/01/19 at 09:00; Stop 11/01/19 at 10:59; Status DC Info (Tpn Per Pharmacy) 1 each PRN DAILY PRN MC SEE COMMENTS Last administered on 11/04/19at 09:00; Start 11/01/19 at 11:00 Sodium Acetate 90 meq/Potassium Chloride 50 meq/ Potassium Phosphate 13.6 mmol/Magnesium Sulfate 10 meq/ Calcium Gluconate 10 meq/ Multivitamins 10 ml/Chromium/ Copper/Manganese/ Seleni/Zn 1 ml/ Total Parenteral Nutrition/Amino Acids/Dextrose/ Fat Emulsion Intravenous 1,512 ml @ 63 mls/hr TPN CONT IV Last administered on 11/01/19at 21:26; Start 11/01/19 at 22:00; Stop 11/02/19 at 21:59; Status DC Potassium Phosphate 13.6 mmol/Sodium Chloride 254.5333 ml @ 127.... 1X ONCE IV Last administered on 11/01/19at 13:06; Start 11/01/19 at 13:00; Stop 11/01/19 at 14:59; Status DC Insulin Glargine (Lantus Syringe) 20 unit 1X ONCE SQ Last administered on 11/01/19at 17:45; Start 11/01/19 at 18:00; Stop 11/01/19 at 18:01; Status DC Insulin Glargine (Lantus Syringe) 20 unit BID SQ Last administered on 11/05/19at 08:35; Start 11/02/19 at 09:00 Insulin Human Lispro (HumaLOG) 0-7 UNITS Q6HRS SQ Last administered on 11/05/19at 05:56; Start 11/02/19 at 00:00 Dextrose (Dextrose 50%-Water Syringe) 12.5 gm PRN Q15MIN PRN IV SEE COMMENTS; Start 11/01/19 at 17:30 Magnesium Sulfate 100 ml @ 25 mls/hr 1X ONCE IV Last administered on 11/01/19at 17:46; Start 11/01/19 at 18:00; Stop 11/01/19 at 21:59; Status DC Sodium Chloride 1,000 ml @ 125 mls/hr Q8H IV Last administered on 11/01/19at 17:45; Start 11/01/19 at 18:00; Status Hold Sodium Phosphate 15 mmol/Sodium Chloride 105 ml @ 105 mls/hr 1X ONCE IV Last administered on 11/02/19at 08:36; Start 11/02/19 at 09:00; Stop 11/02/19 at 09:59; Status DC Clindamycin Phosphate 50 ml @ 100 mls/hr Q8HRS IV Last administered on 11/04/19at 06:05; Start 11/02/19 at 14:00; Stop 11/04/19 at 06:59; Status DC Sodium Acetate 70 meq/Sodium Phosphate 18 mmol/ Potassium Chloride 50 meq/ Magnesium Sulfate 10 meq/Calcium Gluconate 10 meq/ Multivitamins 10 ml/Chromium/ Copper/Manganese/ Seleni/Zn 1 ml/ Total Parenteral Nutrition/Amino Acids/D extrose/ Fat Emulsion Intravenous 1,512 ml @ 63 mls/hr TPN CONT IV Last administered on 11/02/19at 21:48; Start 11/02/19 at 22:00; Stop 11/03/19 at 21:59; Status DC Sodium Acetate 70 meq/Sodium Phosphate 24 mmol/ Potassium Chloride 50 meq/ Magnesium Sulfate 16 meq/Calcium Gluconate 10 meq/ Multivitamins 10 ml/Chromium/ Copper/Manganese/ Seleni/Zn 1 ml/ Total Parenteral Nutrition/Amino Acids/Dextrose/ Fat Emulsion Intravenous 1,512 ml @ 63 mls/hr TPN CONT IV Last administered on 11/03/19at 21:17; Start 11/03/19 at 22:00; Stop 11/04/19 at 21:59; Status DC Daptomycin 450 mg/ Sodium Chloride 50 ml @ 100 mls/hr Q24H IV ; Start 11/04/19 at 09:00; Stop 11/04/19 at 07:23; Status DC Micafungin Sodium 100 mg/Dextrose 100 ml @ 100 mls/hr Q24H IV Last administ ered on 11/05/19at 09:19; Start 11/04/19 at 08:00 Linezolid/Dextrose 300 ml @ 300 mls/hr Q12HR IV Last administered on 11/05/19at 09:19; Start 11/04/19 at 09:00 Sodium Acetate 70 meq/Sodium Phosphate 24 mmol/ Potassium Chloride 50 meq/ Magnesium Sulfate 16 meq/Calcium Gluconate 10 meq/ Multivitamins 10 ml/Chromium/ Copper/Manganese/ Seleni/Zn 1 ml/ Total Parenteral Nutrition/Amino Acids/Dextrose/ Fat Emulsion Intravenous 1,800 ml @ 75 mls/hr TPN CONT IV Last administered on 11/04/19at 21:11; Start 11/04/19 at 22:00; Stop 11/05/19 at 21:59 Albuterol Sulfate (Ventolin Neb Soln) 2.5 mg PRN Q4HRS PRN NEB WHEEZING; Start 11/04/19 at 16:30 Docusate Sodium (Colace) 100 mg PRN BID PRN PO HARD STOOLS; Start 11/04/19 at 16:30 Lactobacillus Rhamnosus (Culturelle) 1 cap BID PO Last administered on 11/05/19at 09:03; Start 11/04/19 at 21:00 Lisinopril (Prinivil) 5 mg DAILY PO Last administered on 11/05/19at 09:03; Start 11/05/19 at 09:00 Pantoprazole Sodium (Protonix) 40 mg DAILYAC PO Last administered on 11/05/19at 09:03; Start 11/05/19 at 07:30 Potassium Chloride (Klor-Con) 20 meq DAILYWBKFT PO ; Start 11/05/19 at 08:00 Non-Formulary Medication (Doxepin Hcl ) 300 mg HS PO ; Start 11/04/19 at 21:00 [place] Carbonate (Lithobid) 300 mg BID PO Last administered on 11/05/19at 09:03; Start 11/04/19 at 21:00 Tizanidine HCl (Zanaflex) 4 mg PRN Q8HRS PRN PO MUSCLE SPASMS; Start 11/04/19 at 16:45 Clonazepam (KlonoPIN) 1 mg PRN BID PRN PO ANXIETY / AGITATION; Start 11/04/19 at 16:30 Acetaminophen (Tylenol) 650 mg PRN Q6HRS PRN PO MILD PAIN / TEMP > 100.3'F; Start 11/04/19 at 16:30 Nystatin (Nystop) 1 [place] BID TP Last administered on 11/04/19at 21:10; Start 11/04/19 at 21:00 Active Scripts Active Humalog (Insulin Lispro) 100 Unit/1 Ml Insuln.pen 0 Units SQ QIDACHS 14 Days Culturelle (Lactobacillus Rhamnosus Gg) 1 Each Cap.sprink 1 Cap PO BID 30 Days Pantoprazole Sodium (Pantoprazole Sodium) 40 Mg Tablet.dr 40 Mg PO DAILYAC 30 Days Dok (Docusate Sodium) 100 Mg Capsule 100 Mg PO PRN BID PRN 30 Days Klor-Con M20 (Potassium Chloride) 20 Meq Tab.er.prt 20 Meq PO DAILYWBKFT 14 Days Proair Hfa (Albuterol Sulfate) 8.5 Gm Hfa.aer.ad 2.5 Mg NEB PRN Q4HRS PRN 14 Days Reported Clindamycin Hcl 300 Mg Capsule 600 Mg PO BID Lidocaine PATCH (Lidocaine) 1 Each Adh..patch 1 Each TP DAILY REMOVE AFTER 12 HOURS Lisinopril 5 Mg Tablet 1 Tab PO DAILY Clonazepam 1 Mg Tablet 1 Mg PO BID [place] Carbonate 300 Mg Tablet 1 Tab PO BID Zanaflex (Tizanidine Hcl) 4 Mg Capsule 1 Cap PO TID PRN Janumet 50-1,000 Mg Tablet (Sitagliptin Phos/Metformin Hcl) 1 Each Tablet 1 Tab PO BID Doxepin Hcl 50 Mg Capsule 300 Mg PO HS Allergies Allergies: Coded Allergies: daptomycin (Verified Allergy, Intermediate, chills, nausea , 08/09/19) ketamine (Verified Allergy, Intermediate, 09/13/19) I S O L A T I O N *CONTACT* (Verified Allergy, Unknown, Unknown, 08/14/19) mrsa Physical Exam General: Other (Recently off ventilator and improved and talking but somewhat drained, says he wants to go home) MUSCULOSKELETAL: No joint tenderness (No redness or erythema of left knee, incision is well-healed and he has no pain or instability on easy range of motion), No deformity Vitals VITALS Vital Signs Date Time Temp Pulse Resp B/P (MAP) Pulse Ox O2 Delivery O2 Flow Rate FiO2 11/05/19 09:03 110 154/95 11/05/19 06:00 16 98 Room Air 11/05/19 04:00 99.5 99.5 Labs Labs Laboratory Tests Test 11/03/19 13:24 11/03/19 18:37 11/03/19 23:55 11/04/19 04:40 Glucose (Fingerstick) 290 mg/dL (70-99) 294 mg/dL (70-99) 238 mg/dL (70-99) White Blood Count 4.7 x10^3/uL (4.0-11.0) Red Blood Count 3.31 x10^6/uL (4.30-5.70) Hemoglobin 8.0 g/dL (13.0-17.5) Hematocrit 24.9 % (39.0-53.0) Mean Corpuscular Volume 75 fL (79-100) Mean Corpuscular Hemoglobin 24 pg (25-35) Mean Corpuscular Hemoglobin Concent 32 g/dL (31-37) Red Cell Distribution Width 21.7 % (11.5-14.5) Platelet Count 70 x10^3/uL (140-400) Neutrophils (%) (Auto) 54 % (31-73) Lymphocytes (%) (Auto) 32 % (24-48) Monocytes (%) (Auto) 11 % (0-9) Eosinophils (%) (Auto) 3 % (0-3) Basophils (%) (Auto) 1 % (0-3) Neutrophils # (Auto) 2.6 x10^3/uL (1.8-7.7) Lymphocytes # (Auto) 1.5 x10^3/uL (1.0-4.8) Monocytes # (Auto) 0.5 x10^3/uL (0.0-1.1) Eosinophils # (Auto) 0.2 x10^3/uL (0.0-0.7) Basophils # (Auto) 0.0 x10^3/uL (0.0-0.2) Sodium Level 147 mmol/L (136-145) Potassium Level 4.3 mmol/L (3.5-5.1) Chloride Level 113 mmol/L (98-107) Carbon Dioxide Level 26 mmol/L (21-32) Anion Gap 8 (6-14) Blood Urea Nitrogen 17 mg/dL (8-26) Creatinine 0.7 mg/dL (0.7-1.3) Estimated GFR (Cockcroft-Gault) 119.4 BUN/Creatinine Ratio 24 (6-20) Glucose Level 244 mg/dL (70-99) Calcium Level 8.1 mg/dL (8.5-10.1) Phosphorus Level 2.8 mg/dL (2.6-4.7) Magnesium Level 1.6 mg/dL (1.8-2.4) Total Bilirubin 0.3 mg/dL (0.2-1.0) Direct Bilirubin 0.2 mg/dL (0.0-0.2) Aspartate Amino Transf (AST/SGOT) 98 U/L (15-37) Alanine Aminotransferase (ALT/SGPT) 52 U/L (16-63) Alkaline Phosphatase 150 U/L (46-116) Total Protein 5.2 g/dL (6.4-8.2) Albumin 1.5 g/dL (3.4-5.0) Albumin/Globulin Ratio 0.4 (1.0-1.7) Test 11/04/19 06:12 11/04/19 07:45 11/04/19 13:10 11/04/19 17:54 Glucose (Fingerstick) 205 mg/dL (70-99) 245 mg/dL (70-99) 284 mg/dL (70-99) O2 Saturation 98 % (92-99) Arterial Blood pH 7.49 (7.35-7.45) Arterial Blood pCO2 at Patient Temp 33 mmHg (35-46) Arterial Blood pO2 at Patient Temp 133 mmHg (75-108) Arterial Blood HCO3 25 mmol/L (21-28) Arterial Blood Base Excess 1 mmol/L (-3-3) FiO2 30 Test 11/04/19 21:07 11/04/19 23:40 11/05/19 05:54 11/05/19 06:00 Glucose (Fingerstick) 266 mg/dL (70-99) 312 mg/dL (70-99) 265 mg/dL (70-99) White Blood Count 4.4 x10^3/uL (4.0-11.0) Red Blood Count 3.36 x10^6/uL (4.30-5.70) Hemoglobin 8.2 g/dL (13.0-17.5) Hematocrit 25.2 % (39.0-53.0) Mean Corpuscular Volume 75 fL (79-100) Mean Corpuscular Hemoglobin 24 pg (25-35) Mean Corpuscular Hemoglobin Concent 32 g/dL (31-37) Red Cell Distribution Width 21.8 % (11.5-14.5) Platelet Count 117 x10^3/uL (140-400) Neutrophils (%) (Auto) 64 % (31-73) Lymphocytes (%) (Auto) 22 % (24-48) Monocytes (%) (Auto) 12 % (0-9) Eosinophils (%) (Auto) 1 % (0-3) Basophils (%) (Auto) 1 % (0-3) Neutrophils # (Auto) 2.8 x10^3/uL (1.8-7.7) Lymphocytes # (Auto) 1.0 x10^3/uL (1.0-4.8) Monocytes # (Auto) 0.5 x10^3/uL (0.0-1.1) Eosinophils # (Auto) 0.0 x10^3/uL (0.0-0.7) Basophils # (Auto) 0.0 x10^3/uL (0.0-0.2) Sodium Level 144 mmol/L (136-145) Potassium Level 4.3 mmol/L (3.5-5.1) Chloride Level 111 mmol/L (98-107) Carbon Dioxide Level 25 mmol/L (21-32) Anion Gap 8 (6-14) Blood Urea Nitrogen 20 mg/dL (8-26) Creatinine 0.8 mg/dL (0.7-1.3) Estimated GFR (Cockcroft-Gault) 102.3 BUN/Creatinine Ratio 25 (6-20) Glucose Level 265 mg/dL (70-99) Calcium Level 8.3 mg/dL (8.5-10.1) Phosphorus Level 4.1 mg/dL (2.6-4.7) Magnesium Level 1.8 mg/dL (1.8-2.4) Total Bilirubin 0.4 mg/dL (0.2-1.0) Aspartate Amino Transf (AST/SGOT) 98 U/L (15-37) Alanine Aminotransferase (ALT/SGPT) 86 U/L (16-63) Alkaline Phosphatase 166 U/L (46-116) Total Protein 5.7 g/dL (6.4-8.2) Albumin 1.7 g/dL (3.4-5.0) Albumin/Globulin Ratio 0.4 (1.0-1.7) Laboratory Tests Test 11/04/19 13:10 11/04/19 17:54 11/04/19 21:07 11/04/19 23:40 Glucose (Fingerstick) 245 mg/dL (70-99) 284 mg/dL (70-99) 266 mg/dL (70-99) 312 mg/dL (70-99) Test 11/05/19 05:54 11/05/19 06:00 Glucose (Fingerstick) 265 mg/dL (70-99) White Blood Count 4.4 x10^3/uL (4.0-11.0) Red Blood Count 3.36 x10^6/uL (4.30-5.70) Hemoglobin 8.2 g/dL (13.0-17.5) Hematocrit 25.2 % (39.0-53.0) Mean Corpuscular Volume 75 fL (79-100) Mean Corpuscular Hemoglobin 24 pg (25-35) Mean Corpuscular Hemoglobin Concent 32 g/dL (31-37) Red Cell Distribution Width 21.8 % (11.5-14.5) Platelet Count 117 x10^3/uL (140-400) Neutrophils (%) (Auto) 64 % (31-73) Lymphocytes (%) (Auto) 22 % (24-48) Monocytes (%) (Auto) 12 % (0-9) Eosinophils (%) (Auto) 1 % (0-3) Basophils (%) (Auto) 1 % (0-3) Neutrophils # (Auto) 2.8 x10^3/uL (1.8-7.7) Lymphocytes # (Auto) 1.0 x10^3/uL (1.0-4.8) Monocytes # (Auto) 0.5 x10^3/uL (0.0-1.1) Eosinophils # (Auto) 0.0 x10^3/uL (0.0-0.7) Basophils # (Auto) 0.0 x10^3/uL (0.0-0.2) Sodium Level 144 mmol/L (136-145) Potassium Level 4.3 mmol/L (3.5-5.1) Chloride Level 111 mmol/L (98-107) Carbon Dioxide Level 25 mmol/L (21-32) Anion Gap 8 (6-14) Blood Urea Nitrogen 20 mg/dL (8-26) Creatinine 0.8 mg/dL (0.7-1.3) Estimated GFR (Cockcroft-Gault) 102.3 BUN/Creatinine Ratio 25 (6-20) Glucose Level 265 mg/dL (70-99) Calcium Level 8.3 mg/dL (8.5-10.1) Phosphorus Level 4.1 mg/dL (2.6-4.7) Magnesium Level 1.8 mg/dL (1.8-2.4) Total Bilirubin 0.4 mg/dL (0.2-1.0) Aspartate Amino Transf (AST/SGOT) 98 U/L (15-37) Alanine Aminotransferase (ALT/SGPT) 86 U/L (16-63) Alkaline Phosphatase 166 U/L (46-116) Total Protein 5.7 g/dL (6.4-8.2) Albumin 1.7 g/dL (3.4-5.0) Albumin/Globulin Ratio 0.4 (1.0-1.7) Assessment/Plan Assessment/Plan In terms of his left knee overall it appears well-healed reasonable range of motion patellofemoral tracking ligament balance distal neurovascular status intact Overall supportive care due to other medical issues, no current orthopedic intervention anticipated THEE GOMEZ MD Nov 05, 2019 09:39
--- NOTE | 2019-11-05 10:09 | PDOC ---
[employer] PROGRESS NOTE Chief Complaint Chief Complaint Sepsis respiratory failure DKA Bacteremia, gram-positive cocci, 1/3 bottles. Recent laparoscopic cholecystectomy about 6 weeks ago Acute on chronic kidney injury. hypophosphatemia Elevated INR, likely secondary to DIC DM2 Small moderate left pneumothorax, incompletely evaluated. Interval development of a 6.3 cm pseudocyst along the pancreatic body. Another 6 cm fluid collection along the medial aspect of the hepatic caudate lobe also likely reflects a pseudocyst. Right colonic wall thickening. Correlate for colitis. rim calcified 10 mm mass along the left kidney medially may be a complicated cyst but is indeterminate. Sonographic follow-up could be performed in 6 months. severe protein-caloric malnutrition Plan Continue meropenem iv , Zyvox , Micafungin Repeat blood culture Pulmonary ,hematology GI following Source of bacteremia remains unclear Appreciate surgery input TPN May need drainage of pancreatic cyst if condition fails to improve Dr. Alcantara will be in 11/04 to see 35 min critical care time SOURCE: BLOOD ENTR: 11/01/19-[address]: VISHAL KATZ III DO [facility]: RUTH DOUGLASS MD,ELIZABETH ROBERTS,KAMERON MAYORGA,KUNAL SHEA,BAMBI HAYNES,BRIANNE Santiago MD ORDERED: BCULT Procedure Result BLOOD CULTURE Final GRAM POSITIVE COCCI IN 1 OF 2 BOTTLES OF A SINGLE SET COLLECTED 11/01/19. CALLED TO DEMETRIA OLIVERA IN ICU 11/02/19 AT 0745 BY Jesus SCHROEDER. CULTURE HAS BEEN SENT FOR FURTHER IDENTIFICATION. Operative Note Operative Note Operative Note: Preoperative Diagnosis: Gallstone pancreatitis Postoperative Diagnosis: Same Procedure: Laparoscopic cholecystectomy with intraoperative cholangiogram Surgeons: Quinton Cubing Machine Tender: Aron WING Anesthesia: Gen. Estimated Blood Loss: 10 mL Specimen: Gallbladder to pathology Drains: None Complications: None Indications: The patient is a 49-year-old male who was admitted with prominent vomiting and abdominal pain. History of Present Illness History of Present Illness 11/05/2019 11/04/2019 Patient seen and examined in ICU Strange BSD NG tube intermittent suction remains critically ill Discussed with RN and patient's mother Chart reviewed Vitals/I&O Vitals/I&O: Vital Signs Date Time Temp Pulse Resp B/P (MAP) Pulse Ox O2 Delivery O2 Flow Rate FiO2 11/05/19 09:03 110 154/95 11/05/19 06:00 16 98 Room Air 11/05/19 04:00 99.5 99.5 I & O 11/04/19 11/04/19 11/05/19 15:00 23:00 07:00 Intake Total 61.87 ml 120 ml 1498 ml Output Total 310 ml 460 ml 1035 ml Balance -248.13 ml -340 ml 463 ml Physical Exam Physical Exam: GENERAL: Alert and sitting up in bed. NAD HEENT: Normocephalic, atraumatic, nml conj. OC/Op -clear NECK: Supple, no JVD, no lymphadenopathy, no thyromegaly. LUNGS: Decreased breath sounds at the bases, otherwise, clear. HEART: S1, S2, tachycardia. No murmurs. ABDOMEN: Soft, nontender, bowel sounds present. EXTREMITIES: No cyanosis, no clubbing, no edema. Negative Nestor's sign. MUSCULOSKELETAL: Previous left knee surgery. Incision scar intact. No effusion. No surrounding erythema, no fluctuance. Nestor's negative. DERMATOLOGIC: Warm, dry. No generalized rash. NEUROLOGIC: Sedated. PSYCHIATRIC: Sedated. LINES: Left central line looks clean. PIV looks clean. General: Other (Recently off ventilator and improved and talking but somewhat drained, says he wants to go home) Heart: Regular rate Lungs: Clear Abdomen: Soft, No tenderness Extremities: Other (Mild generalized edema) Skin: No significant lesion Labs Labs: Laboratory Tests Test 11/04/19 13:10 11/04/19 17:54 11/04/19 21:07 11/04/19 23:40 Glucose (Fingerstick) 245 mg/dL (70-99) 284 mg/dL (70-99) 266 mg/dL (70-99) 312 mg/dL (70-99) Test 11/05/19 05:54 11/05/19 06:00 Glucose (Fingerstick) 265 mg/dL (70-99) White Blood Count 4.4 x10^3/uL (4.0-11.0) Red Blood Count 3.36 x10^6/uL (4.30-5.70) Hemoglobin 8.2 g/dL (13.0-17.5) Hematocrit 25.2 % (39.0-53.0) Mean Corpuscular Volume 75 fL (79-100) Mean Corpuscular Hemoglobin 24 pg (25-35) Mean Corpuscular Hemoglobin Concent 32 g/dL (31-37) Red Cell Distribution Width 21.8 % (11.5-14.5) Platelet Count 117 x10^3/uL (140-400) Neutrophils (%) (Auto) 64 % (31-73) Lymphocytes (%) (Auto) 22 % (24-48) Monocytes (%) (Auto) 12 % (0-9) Eosinophils (%) (Auto) 1 % (0-3) Basophils (%) (Auto) 1 % (0-3) Neutrophils # (Auto) 2.8 x10^3/uL (1.8-7.7) Lymphocytes # (Auto) 1.0 x10^3/uL (1.0-4.8) Monocytes # (Auto) 0.5 x10^3/uL (0.0-1.1) Eosinophils # (Auto) 0.0 x10^3/uL (0.0-0.7) Basophils # (Auto) 0.0 x10^3/uL (0.0-0.2) Sodium Level 144 mmol/L (136-145) Potassium Level 4.3 mmol/L (3.5-5.1) Chloride Level 111 mmol/L (98-107) Carbon Dioxide Level 25 mmol/L (21-32) Anion Gap 8 (6-14) Blood Urea Nitrogen 20 mg/dL (8-26) Creatinine 0.8 mg/dL (0.7-1.3) Estimated GFR (Cockcroft-Gault) 102.3 BUN/Creatinine Ratio 25 (6-20) Glucose Level 265 mg/dL (70-99) Calcium Level 8.3 mg/dL (8.5-10.1) Phosphorus Level 4.1 mg/dL (2.6-4.7) Magnesium Level 1.8 mg/dL (1.8-2.4) Total Bilirubin 0.4 mg/dL (0.2-1.0) Aspartate Amino Transf (AST/SGOT) 98 U/L (15-37) Alanine Aminotransferase (ALT/SGPT) 86 U/L (16-63) Alkaline Phosphatase 166 U/L (46-116) Total Protein 5.7 g/dL (6.4-8.2) Albumin 1.7 g/dL (3.4-5.0) Albumin/Globulin Ratio 0.4 (1.0-1.7) Review of Systems Review of Systems: CONSTITUTIONAL: No fever or chills EYES: No recent changes SKIN: No rash or itching CARDIOVASCULAR: No chest pain, syncope, palpitations, or edema RESPIRATORY: No SOB or cough GASTROINTESTINAL: No nausea, vomiting or abdominal pain NEUROLOGICAL: No headaches or weakness ENDOCRINE: No cold or heat intolerance GENITOURINARY: No urgency or frequency of urination MUSCULOSKELETAL: No back pain or joint pain LYMPHATICS: No enlarged lymph nodes PSYCHIATRIC: No anxiety or depression Assessment and Plan Assessmemt and Plan Problems Medical Problems: (1) DKA (diabetic ketoacidoses) Status: Acute (2) Hypokalemia Status: Acute (3) Respiratory failure Status: Acute (4) Severe sepsis Status: Acute (5) Suspected 2019-nCoV infection Status: Acute Comment Review of Relevant I have reviewed the following items blaze (where applicable) has been applied. Medications: Current Medications Medications (Trade) Dose Ordered Sig/Edilma Route PRN Reason Start Time Stop Time Status Last Admin Dose Admin Sodium Acetate 70 meq/Sodium Phosphate 24 mmol/ Potassium Chloride 50 meq/ Magnesium Sulfate 16 meq/Calcium Gluconate 10 meq/ Multivitamins 10 ml/Chromium/ Copper/Manganese/ Seleni/Zn 1 ml/ Total Parenteral Nutrition/Amino Acids/Dextrose/ Fat Emulsion Intravenous 1,800 ml @ 75 mls/hr TPN CONT IV 11/04/19 22:00 11/05/19 21:59 11/04/19 21:11 Lactobacillus Rhamnosus (Culturelle) 1 cap BID PO 11/04/19 21:00 11/05/19 09:03 Lisinopril (Prinivil) 5 mg DAILY PO 11/05/19 09:00 11/05/19 09:03 Pantoprazole Sodium (Protonix) 40 mg DAILYAC PO 11/05/19 07:30 11/05/19 09:03 [place] Carbonate (Lithobid) 300 mg BID PO 11/04/19 21:00 11/05/19 09:03 Nystatin (Nystop) 1 elmer BID TP 11/04/19 21:00 11/04/19 21:10 Justicifation of Admission Dx: Justifications for Admission: Justification of Admission Dx: Yes Comminuty Aquired Pneumonia: Hemodynamic Instability Acute Renal Failure: RF Can't Be Managed Outpt Sepsis: Altered Mental Status DKA: CHRISTIE GARCIA MD Nov 05, 2019 10:09
--- NOTE | 2019-11-05 11:47 | PDOC ---
PULMONARY PROGRESS NOTES Subjective extubated 11/03 doing well ,on RA Vitals Vital Signs Date Time Temp Pulse Resp B/P (MAP) Pulse Ox O2 Delivery O2 Flow Rate FiO2 11/05/19 09:03 110 154/95 11/05/19 06:00 16 98 Room Air 11/05/19 04:00 99.5 99.5 General: Alert, No acute distress Lungs: Clear Cardiovascular: S1 Abdomen: Soft, Other Extremities: No Edema Skin: Warm Labs Laboratory Tests Test 11/03/19 13:24 11/03/19 18:37 11/03/19 23:55 11/04/19 04:40 Glucose (Fingerstick) 290 mg/dL (70-99) 294 mg/dL (70-99) 238 mg/dL (70-99) White Blood Count 4.7 x10^3/uL (4.0-11.0) Red Blood Count 3.31 x10^6/uL (4.30-5.70) Hemoglobin 8.0 g/dL (13.0-17.5) Hematocrit 24.9 % (39.0-53.0) Mean Corpuscular Volume 75 fL (79-100) Mean Corpuscular Hemoglobin 24 pg (25-35) Mean Corpuscular Hemoglobin Concent 32 g/dL (31-37) Red Cell Distribution Width 21.7 % (11.5-14.5) Platelet Count 70 x10^3/uL (140-400) Neutrophils (%) (Auto) 54 % (31-73) Lymphocytes (%) (Auto) 32 % (24-48) Monocytes (%) (Auto) 11 % (0-9) Eosinophils (%) (Auto) 3 % (0-3) Basophils (%) (Auto) 1 % (0-3) Neutrophils # (Auto) 2.6 x10^3/uL (1.8-7.7) Lymphocytes # (Auto) 1.5 x10^3/uL (1.0-4.8) Monocytes # (Auto) 0.5 x10^3/uL (0.0-1.1) Eosinophils # (Auto) 0.2 x10^3/uL (0.0-0.7) Basophils # (Auto) 0.0 x10^3/uL (0.0-0.2) Sodium Level 147 mmol/L (136-145) Potassium Level 4.3 mmol/L (3.5-5.1) Chloride Level 113 mmol/L (98-107) Carbon Dioxide Level 26 mmol/L (21-32) Anion Gap 8 (6-14) Blood Urea Nitrogen 17 mg/dL (8-26) Creatinine 0.7 mg/dL (0.7-1.3) Estimated GFR (Cockcroft-Gault) 119.4 BUN/Creatinine Ratio 24 (6-20) Glucose Level 244 mg/dL (70-99) Calcium Level 8.1 mg/dL (8.5-10.1) Phosphorus Level 2.8 mg/dL (2.6-4.7) Magnesium Level 1.6 mg/dL (1.8-2.4) Total Bilirubin 0.3 mg/dL (0.2-1.0) Direct Bilirubin 0.2 mg/dL (0.0-0.2) Aspartate Amino Transf (AST/SGOT) 98 U/L (15-37) Alanine Aminotransferase (ALT/SGPT) 52 U/L (16-63) Alkaline Phosphatase 150 U/L (46-116) Total Protein 5.2 g/dL (6.4-8.2) Albumin 1.5 g/dL (3.4-5.0) Albumin/Globulin Ratio 0.4 (1.0-1.7) Test 11/04/19 06:12 11/04/19 07:45 11/04/19 13:10 11/04/19 17:54 Glucose (Fingerstick) 205 mg/dL (70-99) 245 mg/dL (70-99) 284 mg/dL (70-99) O2 Saturation 98 % (92-99) Arterial Blood pH 7.49 (7.35-7.45) Arterial Blood pCO2 at Patient Temp 33 mmHg (35-46) Arterial Blood pO2 at Patient Temp 133 mmHg (75-108) Arterial Blood HCO3 25 mmol/L (21-28) Arterial Blood Base Excess 1 mmol/L (-3-3) FiO2 30 Test 11/04/19 21:07 11/04/19 23:40 11/05/19 05:54 11/05/19 06:00 Glucose (Fingerstick) 266 mg/dL (70-99) 312 mg/dL (70-99) 265 mg/dL (70-99) White Blood Count 4.4 x10^3/uL (4.0-11.0) Red Blood Count 3.36 x10^6/uL (4.30-5.70) Hemoglobin 8.2 g/dL (13.0-17.5) Hematocrit 25.2 % (39.0-53.0) Mean Corpuscular Volume 75 fL (79-100) Mean Corpuscular Hemoglobin 24 pg (25-35) Mean Corpuscular Hemoglobin Concent 32 g/dL (31-37) Red Cell Distribution Width 21.8 % (11.5-14.5) Platelet Count 117 x10^3/uL (140-400) Neutrophils (%) (Auto) 64 % (31-73) Lymphocytes (%) (Auto) 22 % (24-48) Monocytes (%) (Auto) 12 % (0-9) Eosinophils (%) (Auto) 1 % (0-3) Basophils (%) (Auto) 1 % (0-3) Neutrophils # (Auto) 2.8 x10^3/uL (1.8-7.7) Lymphocytes # (Auto) 1.0 x10^3/uL (1.0-4.8) Monocytes # (Auto) 0.5 x10^3/uL (0.0-1.1) Eosinophils # (Auto) 0.0 x10^3/uL (0.0-0.7) Basophils # (Auto) 0.0 x10^3/uL (0.0-0.2) Sodium Level 144 mmol/L (136-145) Potassium Level 4.3 mmol/L (3.5-5.1) Chloride Level 111 mmol/L (98-107) Carbon Dioxide Level 25 mmol/L (21-32) Anion Gap 8 (6-14) Blood Urea Nitrogen 20 mg/dL (8-26) Creatinine 0.8 mg/dL (0.7-1.3) Estimated GFR (Cockcroft-Gault) 102.3 BUN/Creatinine Ratio 25 (6-20) Glucose Level 265 mg/dL (70-99) Calcium Level 8.3 mg/dL (8.5-10.1) Phosphorus Level 4.1 mg/dL (2.6-4.7) Magnesium Level 1.8 mg/dL (1.8-2.4) Total Bilirubin 0.4 mg/dL (0.2-1.0) Aspartate Amino Transf (AST/SGOT) 98 U/L (15-37) Alanine Aminotransferase (ALT/SGPT) 86 U/L (16-63) Alkaline Phosphatase 166 U/L (46-116) Total Protein 5.7 g/dL (6.4-8.2) Albumin 1.7 g/dL (3.4-5.0) Albumin/Globulin Ratio 0.4 (1.0-1.7) Laboratory Tests Test 11/04/19 13:10 11/04/19 17:54 11/04/19 21:07 11/04/19 23:40 Glucose (Fingerstick) 245 mg/dL (70-99) 284 mg/dL (70-99) 266 mg/dL (70-99) 312 mg/dL (70-99) Test 11/05/19 05:54 11/05/19 06:00 Glucose (Fingerstick) 265 mg/dL (70-99) White Blood Count 4.4 x10^3/uL (4.0-11.0) Red Blood Count 3.36 x10^6/uL (4.30-5.70) Hemoglobin 8.2 g/dL (13.0-17.5) Hematocrit 25.2 % (39.0-53.0) Mean Corpuscular Volume 75 fL (79-100) Mean Corpuscular Hemoglobin 24 pg (25-35) Mean Corpuscular Hemoglobin Concent 32 g/dL (31-37) Red Cell Distribution Width 21.8 % (11.5-14.5) Platelet Count 117 x10^3/uL (140-400) Neutrophils (%) (Auto) 64 % (31-73) Lymphocytes (%) (Auto) 22 % (24-48) Monocytes (%) (Auto) 12 % (0-9) Eosinophils (%) (Auto) 1 % (0-3) Basophils (%) (Auto) 1 % (0-3) Neutrophils # (Auto) 2.8 x10^3/uL (1.8-7.7) Lymphocytes # (Auto) 1.0 x10^3/uL (1.0-4.8) Monocytes # (Auto) 0.5 x10^3/uL (0.0-1.1) Eosinophils # (Auto) 0.0 x10^3/uL (0.0-0.7) Basophils # (Auto) 0.0 x10^3/uL (0.0-0.2) Sodium Level 144 mmol/L (136-145) Potassium Level 4.3 mmol/L (3.5-5.1) Chloride Level 111 mmol/L (98-107) Carbon Dioxide Level 25 mmol/L (21-32) Anion Gap 8 (6-14) Blood Urea Nitrogen 20 mg/dL (8-26) Creatinine 0.8 mg/dL (0.7-1.3) Estimated GFR (Cockcroft-Gault) 102.3 BUN/Creatinine Ratio 25 (6-20) Glucose Level 265 mg/dL (70-99) Calcium Level 8.3 mg/dL (8.5-10.1) Phosphorus Level 4.1 mg/dL (2.6-4.7) Magnesium Level 1.8 mg/dL (1.8-2.4) Total Bilirubin 0.4 mg/dL (0.2-1.0) Aspartate Amino Transf (AST/SGOT) 98 U/L (15-37) Alanine Aminotransferase (ALT/SGPT) 86 U/L (16-63) Alkaline Phosphatase 166 U/L (46-116) Total Protein 5.7 g/dL (6.4-8.2) Albumin 1.7 g/dL (3.4-5.0) Albumin/Globulin Ratio 0.4 (1.0-1.7) Medications Active Scripts Medications Dose Route/Sig Max Daily Dose Days Date Category Dose Instructions Humalog (Insulin Lispro) 100 Unit/1 Ml Insuln.pen 0 Units SQ QIDACHS 14 09/16/19 Rx Culturelle (Lactobacillus Rhamnosus Gg) 1 Each Cap.sprink 1 Cap PO BID 30 09/16/19 Rx Pantoprazole Sodium (Pantoprazole Sodium) 40 Mg Tablet.dr 40 Mg PO DAILYAC 30 09/16/19 Rx Dok (Docusate Sodium) 100 Mg Capsule 100 Mg PO PRN BID PRN 30 09/16/19 Rx Klor-Con M20 (Potassium Chloride) 20 Meq Tab.er.prt 20 Meq PO DAILYWBKFT 14 09/16/19 Rx Proair Hfa (Albuterol Sulfate) 8.5 Gm Hfa.aer.ad 2.5 Mg NEB PRN Q4HRS PRN 14 09/16/19 Rx Clindamycin Hcl 300 Mg Capsule 600 Mg PO BID 09/11/19 Reported Lidocaine PATCH (Lidocaine) 1 Each Adh..patch 1 Each TP DAILY 03/12/19 Reported REMOVE AFTER 12 HOURS Lisinopril 5 Mg Tablet 1 Tab PO DAILY PRN 03/12/19 Reported Clonazepam 1 Mg Tablet 1 Mg PO BID 03/12/19 Reported [place] Carbonate 300 Mg Tablet 1 Tab PO BID 08/08/18 Reported Zanaflex (Tizanidine Hcl) 4 Mg Capsule 1 Cap PO TID PRN 08/25/15 Reported Janumet 50-1,000 Mg Tablet (Sitagliptin Phos/Metformin Hcl) 1 Each Tablet 1 Tab PO BID 01/17/15 Reported Doxepin Hcl 50 Mg Capsule 300 Mg PO HS 01/17/15 Reported Comments cxr 10/31 reviewed. no ptx BLOOD CULTURE LC Final Final GRAM POSITIVE COCCI FINAL ID= [STAPHYLOCOCCUS HAEMOLYTICUS MR] STAPHYLOCOCCUS HAEMOLYTICUS MR ANTIMICROBIAL SUSCEPTIBILITY Final Comment POS [place] TYPE 38 STAPHYLOCOCCUS HAEMOLYTICUS MR ANTIBIOTIC RESULT INTERPRETATION AZITHROMYCIN >4 R CLINDAMYCIN >4 R CIPROFLOXACIN >2 R DAPTOMYCIN <=0.5 S ERYTHROMYCIN >4 R GENTAMICIN >8 R LINEZOLID <=1 S LEVOFLOXACIN >4 R OXACILLIN >2 R PENICILLIN >2 R RIFAMPIN <=1 S TRIMETHOPRIM/SULFAMETHOXAZOLE >2/38 R TETRACYCLINE >8 R VANCOMYCIN 1 S Unless otherwise specified, Testing Performed by: [address] [address] For Inquires, the Physician may contact the Microbiology department at [phone] Impression . IMPRESSION: 1. Acute hypoxemic respiratory failure secondary to acute metabolic acidosis. extubated 11/03 2. Diabetic ketoacidosis. resolved 3. Septic shock.resolved 4. Bacteremia, gram-positive cocci, 1/ bottles. FINAL ID= [STAPHYLOCOCCUS HAEMOLYTICUS MR] 5. Recent laparoscopic cholecystectomy. 6. Acute on chronic kidney injury. 7. COVID-19, suspect. 8. Tobacco dependent. 9. Chronic obstructive pulmonary disease, unknown FEV1. 10. Small left-sided pneumo small seen on ct abd, not seen on f/u cxr 10/31 11. New pseudocyst fluid collection, seen on CT abdomen, per GI. CT abdomen pelvis IMPRESSION: 1. Small moderate left pneumothorax, incompletely evaluated. 2. Interval development of a 6.3 cm pseudocyst along the pancreatic body. 3. Another 6 cm fluid collection along the medial aspect of the hepatic caudate lobe also likely reflects a pseudocyst. 4. Right colonic wall thickening. Correlate for colitis. 5. A rim calcified 10 mm mass along the left kidney medially may be a complicated cyst but is indeterminate. Sonographic follow-up could be performed in 6 months. Plan . Spoke with at bedside Doing well since extubated transfer to floor PT/OT/ SPEECH consult Follow GI input IV antibiotics Monitor blood sugars IV levo ,off Monitor H&H 10/31 chest x-ray shows no pneumothorax HAMMAD MORILLO MD Nov 05, 2019 11:47
[2019-11-05] MEDS: NYSTATIN TOPICAL POWDER 15GM BOTTLE. TP SCH ×3 (11:49→23:06)
[2019-11-05] MEDS: TPN PER PHARMACY MC PRN (12:03)
--- NOTE | 2019-11-05 12:35 | PDOC ---
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 11/05/19 1235: SURGICAL PROGRESS NOTE Subjective awake, extubated, swallow eval, some abd pain Vital Signs Vital Signs Date Time Temp Pulse Resp B/P (MAP) Pulse Ox O2 Delivery O2 Flow Rate FiO2 11/05/19 09:03 110 154/95 11/05/19 06:00 16 98 Room Air 11/05/19 04:00 99.5 99.5 I&O Intake and Output 11/05/19 07:00 Intake Total 1679.87 ml Output Total 1805 ml Balance -125.13 ml Intake Oral 155 ml IV Total 1524.87 ml Output Urine Total 1805 ml General: Cooperative, No acute distress Abdomen: Soft, Other (mild LUQ TTP) Labs Laboratory Tests Test 11/03/19 13:24 11/03/19 18:37 11/03/19 23:55 11/04/19 04:40 Glucose (Fingerstick) 290 mg/dL (70-99) 294 mg/dL (70-99) 238 mg/dL (70-99) White Blood Count 4.7 x10^3/uL (4.0-11.0) Red Blood Count 3.31 x10^6/uL (4.30-5.70) Hemoglobin 8.0 g/dL (13.0-17.5) Hematocrit 24.9 % (39.0-53.0) Mean Corpuscular Volume 75 fL (79-100) Mean Corpuscular Hemoglobin 24 pg (25-35) Mean Corpuscular Hemoglobin Concent 32 g/dL (31-37) Red Cell Distribution Width 21.7 % (11.5-14.5) Platelet Count 70 x10^3/uL (140-400) Neutrophils (%) (Auto) 54 % (31-73) Lymphocytes (%) (Auto) 32 % (24-48) Monocytes (%) (Auto) 11 % (0-9) Eosinophils (%) (Auto) 3 % (0-3) Basophils (%) (Auto) 1 % (0-3) Neutrophils # (Auto) 2.6 x10^3/uL (1.8-7.7) Lymphocytes # (Auto) 1.5 x10^3/uL (1.0-4.8) Monocytes # (Auto) 0.5 x10^3/uL (0.0-1.1) Eosinophils # (Auto) 0.2 x10^3/uL (0.0-0.7) Basophils # (Auto) 0.0 x10^3/uL (0.0-0.2) Sodium Level 147 mmol/L (136-145) Potassium Level 4.3 mmol/L (3.5-5.1) Chloride Level 113 mmol/L (98-107) Carbon Dioxide Level 26 mmol/L (21-32) Anion Gap 8 (6-14) Blood Urea Nitrogen 17 mg/dL (8-26) Creatinine 0.7 mg/dL (0.7-1.3) Estimated GFR (Cockcroft-Gault) 119.4 BUN/Creatinine Ratio 24 (6-20) Glucose Level 244 mg/dL (70-99) Calcium Level 8.1 mg/dL (8.5-10.1) Phosphorus Level 2.8 mg/dL (2.6-4.7) Magnesium Level 1.6 mg/dL (1.8-2.4) Total Bilirubin 0.3 mg/dL (0.2-1.0) Direct Bilirubin 0.2 mg/dL (0.0-0.2) Aspartate Amino Transf (AST/SGOT) 98 U/L (15-37) Alanine Aminotransferase (ALT/SGPT) 52 U/L (16-63) Alkaline Phosphatase 150 U/L (46-116) Total Protein 5.2 g/dL (6.4-8.2) Albumin 1.5 g/dL (3.4-5.0) Albumin/Globulin Ratio 0.4 (1.0-1.7) Test 11/04/19 06:12 11/04/19 07:45 11/04/19 13:10 11/04/19 17:54 Glucose (Fingerstick) 205 mg/dL (70-99) 245 mg/dL (70-99) 284 mg/dL (70-99) O2 Saturation 98 % (92-99) Arterial Blood pH 7.49 (7.35-7.45) Arterial Blood pCO2 at Patient Temp 33 mmHg (35-46) Arterial Blood pO2 at Patient Temp 133 mmHg (75-108) Arterial Blood HCO3 25 mmol/L (21-28) Arterial Blood Base Excess 1 mmol/L (-3-3) FiO2 30 Test 7/26/20 21:07 11/04/19 23:40 11/05/19 05:54 11/05/19 06:00 Glucose (Fingerstick) 266 mg/dL (70-99) 312 mg/dL (70-99) 265 mg/dL (70-99) White Blood Count 4.4 x10^3/uL (4.0-11.0) Red Blood Count 3.36 x10^6/uL (4.30-5.70) Hemoglobin 8.2 g/dL (13.0-17.5) Hematocrit 25.2 % (39.0-53.0) Mean Corpuscular Volume 75 fL (79-100) Mean Corpuscular Hemoglobin 24 pg (25-35) Mean Corpuscular Hemoglobin Concent 32 g/dL (31-37) Red Cell Distribution Width 21.8 % (11.5-14.5) Platelet Count 117 x10^3/uL (140-400) Neutrophils (%) (Auto) 64 % (31-73) Lymphocytes (%) (Auto) 22 % (24-48) Monocytes (%) (Auto) 12 % (0-9) Eosinophils (%) (Auto) 1 % (0-3) Basophils (%) (Auto) 1 % (0-3) Neutrophils # (Auto) 2.8 x10^3/uL (1.8-7.7) Lymphocytes # (Auto) 1.0 x10^3/uL (1.0-4.8) Monocytes # (Auto) 0.5 x10^3/uL (0.0-1.1) Eosinophils # (Auto) 0.0 x10^3/uL (0.0-0.7) Basophils # (Auto) 0.0 x10^3/uL (0.0-0.2) Sodium Level 144 mmol/L (136-145) Potassium Level 4.3 mmol/L (3.5-5.1) Chloride Level 111 mmol/L (98-107) Carbon Dioxide Level 25 mmol/L (21-32) Anion Gap 8 (6-14) Blood Urea Nitrogen 20 mg/dL (8-26) Creatinine 0.8 mg/dL (0.7-1.3) Estimated GFR (Cockcroft-Gault) 102.3 BUN/Creatinine Ratio 25 (6-20) Glucose Level 265 mg/dL (70-99) Calcium Level 8.3 mg/dL (8.5-10.1) Phosphorus Level 4.1 mg/dL (2.6-4.7) Magnesium Level 1.8 mg/dL (1.8-2.4) Total Bilirubin 0.4 mg/dL (0.2-1.0) Aspartate Amino Transf (AST/SGOT) 98 U/L (15-37) Alanine Aminotransferase (ALT/SGPT) 86 U/L (16-63) Alkaline Phosphatase 166 U/L (46-116) Total Protein 5.7 g/dL (6.4-8.2) Albumin 1.7 g/dL (3.4-5.0) Albumin/Globulin Ratio 0.4 (1.0-1.7) Test 11/05/19 11:44 Glucose (Fingerstick) 288 mg/dL (70-99) Laboratory Tests Test 11/04/19 13:10 11/04/19 17:54 11/04/19 21:07 11/04/19 23:40 Glucose (Fingerstick) 245 mg/dL (70-99) 284 mg/dL (70-99) 266 mg/dL (70-99) 312 mg/dL (70-99) Test 11/05/19 05:54 11/05/19 06:00 11/05/19 11:44 Glucose (Fingerstick) 265 mg/dL (70-99) 288 mg/dL (70-99) White Blood Count 4.4 x10^3/uL (4.0-11.0) Red Blood Count 3.36 x10^6/uL (4.30-5.70) Hemoglobin 8.2 g/dL (13.0-17.5) Hematocrit 25.2 % (39.0-53.0) Mean Corpuscular Volume 75 fL (79-100) Mean Corpuscular Hemoglobin 24 pg (25-35) Mean Corpuscular Hemoglobin Concent 32 g/dL (31-37) Red Cell Distribution Width 21.8 % (11.5-14.5) Platelet Count 117 x10^3/uL (140-400) Neutrophils (%) (Auto) 64 % (31-73) Lymphocytes (%) (Auto) 22 % (24-48) Monocytes (%) (Auto) 12 % (0-9) Eosinophils (%) (Auto) 1 % (0-3) Basophils (%) (Auto) 1 % (0-3) Neutrophils # (Auto) 2.8 x10^3/uL (1.8-7.7) Lymphocytes # (Auto) 1.0 x10^3/uL (1.0-4.8) Monocytes # (Auto) 0.5 x10^3/uL (0.0-1.1) Eosinophils # (Auto) 0.0 x10^3/uL (0.0-0.7) Basophils # (Auto) 0.0 x10^3/uL (0.0-0.2) Sodium Level 144 mmol/L (136-145) Potassium Level 4.3 mmol/L (3.5-5.1) Chloride Level 111 mmol/L (98-107) Carbon Dioxide Level 25 mmol/L (21-32) Anion Gap 8 (6-14) Blood Urea Nitrogen 20 mg/dL (8-26) Creatinine 0.8 mg/dL (0.7-1.3) Estimated GFR (Cockcroft-Gault) 102.3 BUN/Creatinine Ratio 25 (6-20) Glucose Level 265 mg/dL (70-99) Calcium Level 8.3 mg/dL (8.5-10.1) Phosphorus Level 4.1 mg/dL (2.6-4.7) Magnesium Level 1.8 mg/dL (1.8-2.4) Total Bilirubin 0.4 mg/dL (0.2-1.0) Aspartate Amino Transf (AST/SGOT) 98 U/L (15-37) Alanine Aminotransferase (ALT/SGPT) 86 U/L (16-63) Alkaline Phosphatase 166 U/L (46-116) Total Protein 5.7 g/dL (6.4-8.2) Albumin 1.7 g/dL (3.4-5.0) Albumin/Globulin Ratio 0.4 (1.0-1.7) Problem List Problems Medical Problems: (1) DKA (diabetic ketoacidoses) Status: Acute (2) Hypokalemia Status: Acute (3) Respiratory failure Status: Acute (4) Severe sepsis Status: Acute (5) Suspected 2019-nCoV infection Status: Acute Assessment/Plan supportive measures will review with Dr Alcantara, no surgical indications at this time Justicifation of Admission Dx: Justifications for Admission: Justification of Admission Dx: Yes Comminuty Aquired Pneumonia: Hemodynamic Instability Acute Renal Failure: RF Can't Be Managed Outpt Sepsis: Altered Mental Status DKA: DKA TOMMY ALCANTARA MD 11/06/19 0737: SURGICAL PROGRESS NOTE Assessment/Plan Agree with above 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 Nov 05, 2019 12:35 TOMMY ALCANTARA MD Nov 06, 2019 07:37
--- NOTE | 2019-11-05 13:06 | NUR ---
Pharmacy TPN Dosing Note S: FLORECITAYVONNEFLORECITAMarcelinaANASTACIA Edouard is a 49 year old M Currently receiving Central Continuous TPN started 11/01/19 B:Pertinent PMH: NPO, critical illness Height: 5 feet, 7 inches Weight: 88.4 kg Current diet: NPO LABS: Sodium: 144 Potassium: 4.3 Chloride: 111 Calcium: 8.3 Corrected Calcium: 10.14 Magnesium: 1.8 CO2: 26 SCr: 0.7 Glucose: 288 Albumin: 1.7 AST: 98 ALT: 86 TPN FORMULA: TPN TYPE: Central Continuous AMINO ACIDS: 75 gm DEXTROSE: 225 gm LIPIDS: 20 gm SODIUM CHLORIDE: - mEq SODIUM ACETATE: 70 mEq SODIUM PHOSPHATE: 12 mmol POTASSIUM CHLORIDE: 50 mEq POTASSIUM ACETATE: - mEq POTASSIUM PHOSPHATE: - mmol MAGNESIUM: 16 mEq CALCIUM: 10 mEq INSULIN: 10 units MULTIPLE VITAMIN: 10 ml TRACE ELEMENTS: 1 ml(s) TPN PLAN: phosphate level increased, cut phosphate in 1/2, add 10 units insulin to tpn. R: Continue TPN AT SAME RATE Will monitor electrolytes, glucose, and tolerance to TPN. AXEL NATARAJAN [facility], 11/05/19 [id number]
--- NOTE | 2019-11-05 13:58 | PDOC ---
G I PROGRESS NOTE Subjective Awake. Orients? No real attempt to communicate clearly. Objective Per Mom, didn't really attempt to swallow during [employer] eval. Pocketed substance and spit out. Physical Exam Lungs clear anteriorly. RRR, tachy Abdomen soft, not apparently tender. Review of Relevant I have reviewed the following items blaze (where applicable) has been applied. Labs Laboratory Tests Test 11/03/19 18:37 11/03/19 23:55 11/04/19 04:40 11/04/19 06:12 Glucose (Fingerstick) 294 mg/dL (70-99) 238 mg/dL (70-99) 205 mg/dL (70-99) White Blood Count 4.7 x10^3/uL (4.0-11.0) Red Blood Count 3.31 x10^6/uL (4.30-5.70) Hemoglobin 8.0 g/dL (13.0-17.5) Hematocrit 24.9 % (39.0-53.0) Mean Corpuscular Volume 75 fL (79-100) Mean Corpuscular Hemoglobin 24 pg (25-35) Mean Corpuscular Hemoglobin Concent 32 g/dL (31-37) Red Cell Distribution Width 21.7 % (11.5-14.5) Platelet Count 70 x10^3/uL (140-400) Neutrophils (%) (Auto) 54 % (31-73) Lymphocytes (%) (Auto) 32 % (24-48) Monocytes (%) (Auto) 11 % (0-9) Eosinophils (%) (Auto) 3 % (0-3) Basophils (%) (Auto) 1 % (0-3) Neutrophils # (Auto) 2.6 x10^3/uL (1.8-7.7) Lymphocytes # (Auto) 1.5 x10^3/uL (1.0-4.8) Monocytes # (Auto) 0.5 x10^3/uL (0.0-1.1) Eosinophils # (Auto) 0.2 x10^3/uL (0.0-0.7) Basophils # (Auto) 0.0 x10^3/uL (0.0-0.2) Sodium Level 147 mmol/L (136-145) Potassium Level 4.3 mmol/L (3.5-5.1) Chloride Level 113 mmol/L (98-107) Carbon Dioxide Level 26 mmol/L (21-32) Anion Gap 8 (6-14) Blood Urea Nitrogen 17 mg/dL (8-26) Creatinine 0.7 mg/dL (0.7-1.3) Estimated GFR (Cockcroft-Gault) 119.4 BUN/Creatinine Ratio 24 (6-20) Glucose Level 244 mg/dL (70-99) Calcium Level 8.1 mg/dL (8.5-10.1) Phosphorus Level 2.8 mg/dL (2.6-4.7) Magnesium Level 1.6 mg/dL (1.8-2.4) Total Bilirubin 0.3 mg/dL (0.2-1.0) Direct Bilirubin 0.2 mg/dL (0.0-0.2) Aspartate Amino Transf (AST/SGOT) 98 U/L (15-37) Alanine Aminotransferase (ALT/SGPT) 52 U/L (16-63) Alkaline Phosphatase 150 U/L (46-116) Total Protein 5.2 g/dL (6.4-8.2) Albumin 1.5 g/dL (3.4-5.0) Albumin/Globulin Ratio 0.4 (1.0-1.7) Test 11/04/19 07:45 11/04/19 13:10 11/04/19 17:54 11/04/19 21:07 O2 Saturation 98 % (92-99) Arterial Blood pH 7.49 (7.35-7.45) Arterial Blood pCO2 at Patient Temp 33 mmHg (35-46) Arterial Blood pO2 at Patient Temp 133 mmHg (75-108) Arterial Blood HCO3 25 mmol/L (21-28) Arterial Blood Base Excess 1 mmol/L (-3-3) FiO2 30 Glucose (Fingerstick) 245 mg/dL (70-99) 284 mg/dL (70-99) 266 mg/dL (70-99) Test 11/04/19 23:40 11/05/19 05:54 11/05/19 06:00 11/05/19 11:44 Glucose (Fingerstick) 312 mg/dL (70-99) 265 mg/dL (70-99) 288 mg/dL (70-99) White Blood Count 4.4 x10^3/uL (4.0-11.0) Red Blood Count 3.36 x10^6/uL (4.30-5.70) Hemoglobin 8.2 g/dL (13.0-17.5) Hematocrit 25.2 % (39.0-53.0) Mean Corpuscular Volume 75 fL (79-100) Mean Corpuscular Hemoglobin 24 pg (25-35) Mean Corpuscular Hemoglobin Concent 32 g/dL (31-37) Red Cell Distribution Width 21.8 % (11.5-14.5) Platelet Count 117 x10^3/uL (140-400) Neutrophils (%) (Auto) 64 % (31-73) Lymphocytes (%) (Auto) 22 % (24-48) Monocytes (%) (Auto) 12 % (0-9) Eosinophils (%) (Auto) 1 % (0-3) Basophils (%) (Auto) 1 % (0-3) Neutrophils # (Auto) 2.8 x10^3/uL (1.8-7.7) Lymphocytes # (Auto) 1.0 x10^3/uL (1.0-4.8) Monocytes # (Auto) 0.5 x10^3/uL (0.0-1.1) Eosinophils # (Auto) 0.0 x10^3/uL (0.0-0.7) Basophils # (Auto) 0.0 x10^3/uL (0.0-0.2) Sodium Level 144 mmol/L (136-145) Potassium Level 4.3 mmol/L (3.5-5.1) Chloride Level 111 mmol/L (98-107) Carbon Dioxide Level 25 mmol/L (21-32) Anion Gap 8 (6-14) Blood Urea Nitrogen 20 mg/dL (8-26) Creatinine 0.8 mg/dL (0.7-1.3) Estimated GFR (Cockcroft-Gault) 102.3 BUN/Creatinine Ratio 25 (6-20) Glucose Level 265 mg/dL (70-99) Calcium Level 8.3 mg/dL (8.5-10.1) Phosphorus Level 4.1 mg/dL (2.6-4.7) Magnesium Level 1.8 mg/dL (1.8-2.4) Total Bilirubin 0.4 mg/dL (0.2-1.0) Aspartate Amino Transf (AST/SGOT) 98 U/L (15-37) Alanine Aminotransferase (ALT/SGPT) 86 U/L (16-63) Alkaline Phosphatase 166 U/L (46-116) Total Protein 5.7 g/dL (6.4-8.2) Albumin 1.7 g/dL (3.4-5.0) Albumin/Globulin Ratio 0.4 (1.0-1.7) Laboratory Tests Test 11/04/19 17:54 11/04/19 21:07 11/04/19 23:40 11/05/19 05:54 Glucose (Fingerstick) 284 mg/dL (70-99) 266 mg/dL (70-99) 312 mg/dL (70-99) 265 mg/dL (70-99) Test 11/05/19 06:00 11/05/19 11:44 White Blood Count 4.4 x10^3/uL (4.0-11.0) Red Blood Count 3.36 x10^6/uL (4.30-5.70) Hemoglobin 8.2 g/dL (13.0-17.5) Hematocrit 25.2 % (39.0-53.0) Mean Corpuscular Volume 75 fL (79-100) Mean Corpuscular Hemoglobin 24 pg (25-35) Mean Corpuscular Hemoglobin Concent 32 g/dL (31-37) Red Cell Distribution Width 21.8 % (11.5-14.5) Platelet Count 117 x10^3/uL (140-400) Neutrophils (%) (Auto) 64 % (31-73) Lymphocytes (%) (Auto) 22 % (24-48) Monocytes (%) (Auto) 12 % (0-9) Eosinophils (%) (Auto) 1 % (0-3) Basophils (%) (Auto) 1 % (0-3) Neutrophils # (Auto) 2.8 x10^3/uL (1.8-7.7) Lymphocytes # (Auto) 1.0 x10^3/uL (1.0-4.8) Monocytes # (Auto) 0.5 x10^3/uL (0.0-1.1) Eosinophils # (Auto) 0.0 x10^3/uL (0.0-0.7) Basophils # (Auto) 0.0 x10^3/uL (0.0-0.2) Sodium Level 144 mmol/L (136-145) Potassium Level 4.3 mmol/L (3.5-5.1) Chloride Level 111 mmol/L (98-107) Carbon Dioxide Level 25 mmol/L (21-32) Anion Gap 8 (6-14) Blood Urea Nitrogen 20 mg/dL (8-26) Creatinine 0.8 mg/dL (0.7-1.3) Estimated GFR (Cockcroft-Gault) 102.3 BUN/Creatinine Ratio 25 (6-20) Glucose Level 265 mg/dL (70-99) Calcium Level 8.3 mg/dL (8.5-10.1) Phosphorus Level 4.1 mg/dL (2.6-4.7) Magnesium Level 1.8 mg/dL (1.8-2.4) Total Bilirubin 0.4 mg/dL (0.2-1.0) Aspartate Amino Transf (AST/SGOT) 98 U/L (15-37) Alanine Aminotransferase (ALT/SGPT) 86 U/L (16-63) Alkaline Phosphatase 166 U/L (46-116) Total Protein 5.7 g/dL (6.4-8.2) Albumin 1.7 g/dL (3.4-5.0) Albumin/Globulin Ratio 0.4 (1.0-1.7) Glucose (Fingerstick) 288 mg/dL (70-99) Microbiology 11/04/19 Blood Culture - Preliminary, Resulted NO GROWTH AFTER 1 DAY 10/30/19 Urine Culture - Final, Complete Vitals/I & O Vital Sign - Last 24 Hours 11/04/19 11/04/19 11/04/19 11/04/19 14:00 15:00 16:00 16:00 Temp 98.1 98.1 Pulse 122 115 114 Resp 16 16 14 B/P (MAP) 118/75 (89) 124/81 (95) 111/74 (86) Pulse Ox 100 100 100 O2 Delivery Room Air Room Air Room Air Room Air 11/04/19 11/04/19 11/04/19 11/04/19 17:00 18:00 19:00 20:00 Temp 99.6 99.6 Pulse 116 116 121 116 Resp 14 16 16 16 B/P (MAP) 125/88 (100) 127/82 (97) 136/84 (101) 128/75 (92) Pulse Ox 100 97 98 98 O2 Delivery Room Air Room Air Room Air Room Air 11/04/19 11/04/19 11/04/19 11/04/19 20:00 21:00 22:00 23:00 Pulse 114 114 114 Resp 18 18 18 B/P (MAP) 135/84 (101) 140/89 (106) 146/88 (107) Pulse Ox 98 96 98 O2 Delivery Room Air Room Air Room Air Room Air 11/05/19 11/05/19 11/05/19 11/05/19 00:00 00:00 01:00 02:00 Temp 100.1 100.1 Pulse 115 116 116 Resp 16 18 16 B/P (MAP) 146/87 (106) 140/73 (95) 132/89 (103) Pulse Ox 97 98 98 O2 Delivery Room Air Room Air Room Air Room Air 11/05/19 11/05/19 11/05/19 11/05/19 03:00 04:00 04:00 05:00 Temp 99.5 99.5 Pulse 114 114 113 Resp 16 18 16 B/P (MAP) 154/94 (114) 159/90 (113) 164/94 (117) Pulse Ox 97 99 98 O2 Delivery Room Air Room Air Room Air Room Air 11/05/19 11/05/19 11/05/19 11/05/19 06:00 07:00 08:00 08:00 Temp 98.5 98.5 Pulse 114 112 110 Resp 16 20 16 B/P (MAP) 149/88 (108) 160/93 (115) 153/85 (107) Pulse Ox 98 98 99 O2 Delivery Room Air Room Air Room Air Room Air 11/05/19 11/05/19 11/05/19 11/05/19 09:00 09:03 10:00 11:00 Pulse 108 110 110 108 Resp 16 14 18 B/P (MAP) 154/95 (114) 154/95 147/87 (107) 156/96 (116) Pulse Ox 98 98 99 O2 Delivery Room Air Room Air Room Air 11/05/19 11/05/19 11/05/19 12:00 12:00 13:03 Temp 98.8 98.8 Pulse 110 Resp 20 16 B/P (MAP) 157/95 (115) 135/90 (105) Pulse Ox 99 98 O2 Delivery Room Air Room Air Room Air Intake and Output 11/04/19 11/04/19 11/05/19 15:00 23:00 07:00 Intake Total 61.87 ml 120 ml 1498 ml Output Total 310 ml 460 ml 1035 ml Balance -248.13 ml -340 ml 463 ml Problem List Problems Medical Problems: (1) DKA (diabetic ketoacidoses) Status: Acute (2) Hypokalemia Status: Acute (3) Respiratory failure Status: Acute (4) Severe sepsis Status: Acute (5) Suspected 2019-nCoV infection Status: Acute Assessment Group B strep bacteremia/sepsis, source unclear. Unclear just what GI issues really are. 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 No prior endoscopy we know of. Plan of Care Note Continue support, empiric PPI. Speech to re-eval? Once stronger and hopefully more communicative, explore any GI issues. Justicifation of Admission Dx: Justifications for Admission: Justification of Admission Dx: Yes Comminuty Aquired Pneumonia: Hemodynamic Instability Acute Renal Failure: RF Can't Be Managed Outpt Sepsis: Altered Mental Status DKA: DKA BRIANNE HAYNES MD Nov 05, 2019 13:57
--- NOTE | 2019-11-05 15:05 | NUR ---
1415 Condition improved able to down grade to med surg floor. VSS,extremely weak. PT/OT to initiate care/strengthening in am.Mother reports patient weaker over the course 3 mo w "numerous"medical issues. Overtly depressed. Is non communicative, does not answer mother. Cajoling unsuccessful,sanchez words by parent unsuccessful. Nods YES when questioned if he was down. Repositioned w assist q2H. Cont POC in prep for discharge
--- NOTE | 2019-11-05 15:15 | NUR ---
Transportation here. Assist move to new bed. Phone report,all meds personnel belongings moved w patient. Mother at bedside up to new room w patient
--- NOTE | 2019-11-05 15:19 | NUR ---
SS following up with discharge planning. SS reviewed pt chart and discussed with pt RN. Pt was extubated on 11/04/2019. Pt currently on room air. COVID19 negative. Pt currently NPO and on TPN. Pt on IV Micafungin, IV Meropenem, and IV Zyvox. Pt will need PT/OT orders to assess physical needs. Referral phoned and faxed to [facility], ; fax [phone], to check benefits if LTACH is needed. SS will continue to follow for discharge planning.
[2019-11-05] MEDS: DOXEPIN 150 MG PO SCH ×2 (21:00→22:28)
[2019-11-05] MEDS ORDERED: DEXTROSE 70% IV SCH ×11 (22:00)
[2019-11-05] MEDS ORDERED: [UNRECOGNIZED DRUG - OTHER] IV SCH ×11 (22:00)
[2019-11-05] MEDS ORDERED: AMINO ACID IV SCH ×11 (22:00)
[2019-11-05] MEDS ORDERED: TOTAL PARENTERAL NUTRITION IV SCH ×11 (22:00)
[2019-11-06] MEDS: INSULIN LISPRO 300 UNITS/3 ML VIAL. SQ SCH ×4 (00:23→18:00)
[2019-11-06 03:00] VITALS: BP 157/90
[2019-11-06 04:42] LABS: BASO # 0.1 x10^3/uL (0.0-0.2); BASO % 1 % (0-3); EOS # 0.1 x10^3/uL (0.0-0.7); EOS % 2 % (0-3); HEMATOCRIT 25.4 % (39.0-53.0); HEMOGLOBIN 8.3 g/dL (13.0-17.5); LYMPH # 1.1 x10^3/uL (1.0-4.8); LYMPH % 18 % (24-48); MEAN CORPUSCULAR HEMOGLOBIN 25 pg (25-35); MEAN CORPUSCULAR HGB CONC 33 g/dL (31-37); MEAN CORPUSCULAR VOLUME 75 fL (79-100); MONO # 0.7 x10^3/uL (0.0-1.1); MONO % 12 % (0-9); NEUT % 67 % (31-73); PLATELET COUNT 220 x10^3/uL (140-400); RED BLOOD COUNT 3.38 x10^6/uL (4.30-5.70)
[2019-11-06] MEDS: MEROPENEM 500 MG in IV NORMAL SALINE 50ML 50 ML IV SCH ×4 (05:07→17:44)
[2019-11-06] MEDS: PANTOPRAZOLE 40 MG TABLET.DR. PO SCH (05:32)
[2019-11-06 07:00] VITALS: BP 149/90
[2019-11-06] MEDS: POTASSIUM CHLORIDE 20 MEQ TABLET.ER. PO SCH (08:00)
[2019-11-06] MEDS: MICAFUNGIN 100 MG in IV DEXTROSE 5% 100ML 100 ML IV SCH (08:30)
--- NOTE | 2019-11-06 08:37 | NUR ---
Reweighed patient. Weight 94-8 kg with scd machine off of bed.
--- NOTE | 2019-11-06 08:50 | PDOC ---
PROGRESS NOTES Subjective Subjective denies abdominal pain Objective Objective Vital Signs Date Time Temp Pulse Resp B/P (MAP) Pulse Ox O2 Delivery O2 Flow Rate FiO2 11/06/19 07:00 98.0 108 20 149/90 (109) 100 Room Air 98.0 11/03/19 20:17 15.0 Intake and Output 11/06/19 07:00 Intake Total 1622 ml Output Total 850 ml Balance 772 ml Intake Oral 0 ml IV Total 1622 ml Output Urine Total 850 ml Physical Exam Abdomen: Soft, No tenderness Heart: Regular rate General: Alert, Oriented X3 Lungs: Clear to auscultation Neuro: Normal speech Assessment Assessment Problems Medical Problems: (1) DKA (diabetic ketoacidoses) Status: Acute (2) Hypokalemia Status: Acute (3) Respiratory failure Status: Acute (4) Severe sepsis Status: Acute (5) Suspected 2019-nCoV infection Status: Acute Plan Plan of Care Abdominal exam benign; 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 Comment Review of Relevant I have reviewed the following items blaze (where applicable) has been applied. Labs Laboratory Tests Test 11/04/19 13:10 11/04/19 17:54 11/04/19 21:07 11/04/19 23:40 Glucose (Fingerstick) 245 mg/dL (70-99) 284 mg/dL (70-99) 266 mg/dL (70-99) 312 mg/dL (70-99) Test 11/05/19 05:54 11/05/19 06:00 11/05/19 11:44 11/05/19 18:25 Glucose (Fingerstick) 265 mg/dL (70-99) 288 mg/dL (70-99) 257 mg/dL (70-99) White Blood Count 4.4 x10^3/uL (4.0-11.0) Red Blood Count 3.36 x10^6/uL (4.30-5.70) Hemoglobin 8.2 g/dL (13.0-17.5) Hematocrit 25.2 % (39.0-53.0) Mean Corpuscular Volume 75 fL (79-100) Mean Corpuscular Hemoglobin 24 pg (25-35) Mean Corpuscular Hemoglobin Concent 32 g/dL (31-37) Red Cell Distribution Width 21.8 % (11.5-14.5) Platelet Count 117 x10^3/uL (140-400) Neutrophils (%) (Auto) 64 % (31-73) Lymphocytes (%) (Auto) 22 % (24-48) Monocytes (%) (Auto) 12 % (0-9) Eosinophils (%) (Auto) 1 % (0-3) Basophils (%) (Auto) 1 % (0-3) Neutrophils # (Auto) 2.8 x10^3/uL (1.8-7.7) Lymphocytes # (Auto) 1.0 x10^3/uL (1.0-4.8) Monocytes # (Auto) 0.5 x10^3/uL (0.0-1.1) Eosinophils # (Auto) 0.0 x10^3/uL (0.0-0.7) Basophils # (Auto) 0.0 x10^3/uL (0.0-0.2) Sodium Level 144 mmol/L (136-145) Potassium Level 4.3 mmol/L (3.5-5.1) Chloride Level 111 mmol/L (98-107) Carbon Dioxide Level 25 mmol/L (21-32) Anion Gap 8 (6-14) Blood Urea Nitrogen 20 mg/dL (8-26) Creatinine 0.8 mg/dL (0.7-1.3) Estimated GFR (Cockcroft-Gault) 102.3 BUN/Creatinine Ratio 25 (6-20) Glucose Level 265 mg/dL (70-99) Calcium Level 8.3 mg/dL (8.5-10.1) Phosphorus Level 4.1 mg/dL (2.6-4.7) Magnesium Level 1.8 mg/dL (1.8-2.4) Total Bilirubin 0.4 mg/dL (0.2-1.0) Aspartate Amino Transf (AST/SGOT) 98 U/L (15-37) Alanine Aminotransferase (ALT/SGPT) 86 U/L (16-63) Alkaline Phosphatase 166 U/L (46-116) Total Protein 5.7 g/dL (6.4-8.2) Albumin 1.7 g/dL (3.4-5.0) Albumin/Globulin Ratio 0.4 (1.0-1.7) Test 11/06/19 00:20 11/06/19 03:40 11/06/19 05:25 Glucose (Fingerstick) 265 mg/dL (70-99) 231 mg/dL (70-99) White Blood Count 6.0 x10^3/uL (4.0-11.0) Red Blood Count 3.38 x10^6/uL (4.30-5.70) Hemoglobin 8.3 g/dL (13.0-17.5) Hematocrit 25.4 % (39.0-53.0) Mean Corpuscular Volume 75 fL (79-100) Mean Corpuscular Hemoglobin 25 pg (25-35) Mean Corpuscular Hemoglobin Concent 33 g/dL (31-37) Red Cell Distribution Width 22.0 % (11.5-14.5) Platelet Count 220 x10^3/uL (140-400) Neutrophils (%) (Auto) 67 % (31-73) Lymphocytes (%) (Auto) 18 % (24-48) Monocytes (%) (Auto) 12 % (0-9) Eosinophils (%) (Auto) 2 % (0-3) Basophils (%) (Auto) 1 % (0-3) Neutrophils # (Auto) 4.0 x10^3/uL (1.8-7.7) Lymphocytes # (Auto) 1.1 x10^3/uL (1.0-4.8) Monocytes # (Auto) 0.7 x10^3/uL (0.0-1.1) Eosinophils # (Auto) 0.1 x10^3/uL (0.0-0.7) Basophils # (Auto) 0.1 x10^3/uL (0.0-0.2) Laboratory Tests Test 11/05/19 11:44 11/05/19 18:25 11/06/19 00:20 11/06/19 03:40 Glucose (Fingerstick) 288 mg/dL (70-99) 257 mg/dL (70-99) 265 mg/dL (70-99) White Blood Count 6.0 x10^3/uL (4.0-11.0) Red Blood Count 3.38 x10^6/uL (4.30-5.70) Hemoglobin 8.3 g/dL (13.0-17.5) Hematocrit 25.4 % (39.0-53.0) Mean Corpuscular Volume 75 fL (79-100) Mean Corpuscular Hemoglobin 25 pg (25-35) Mean Corpuscular Hemoglobin Concent 33 g/dL (31-37) Red Cell Distribution Width 22.0 % (11.5-14.5) Platelet Count 220 x10^3/uL (140-400) Neutrophils (%) (Auto) 67 % (31-73) Lymphocytes (%) (Auto) 18 % (24-48) Monocytes (%) (Auto) 12 % (0-9) Eosinophils (%) (Auto) 2 % (0-3) Basophils (%) (Auto) 1 % (0-3) Neutrophils # (Auto) 4.0 x10^3/uL (1.8-7.7) Lymphocytes # (Auto) 1.1 x10^3/uL (1.0-4.8) Monocytes # (Auto) 0.7 x10^3/uL (0.0-1.1) Eosinophils # (Auto) 0.1 x10^3/uL (0.0-0.7) Basophils # (Auto) 0.1 x10^3/uL (0.0-0.2) Test 11/06/19 05:25 Glucose (Fingerstick) 231 mg/dL (70-99) Microbiology 11/04/19 Blood Culture - Preliminary, Resulted NO GROWTH AFTER 2 DAYS 10/30/19 Urine Culture - Final, Complete Medications Current Medications Midazolam HCl 100 ml @ 1 mls/hr 1X ONCE IV Last administered on 10/30/19at 10:40; Start 10/30/19 at 10:30; Stop 11/01/19 at 08:11; Status DC Midazolam HCl 50 mg/Sodium Chloride 50 ml @ 0 mls/hr 1X ONCE IV ; Start 10/30/19 at 10:30; Stop 10/30/19 at 10:31; Status UNV Etomidate (Amidate) 20 mg 1X ONCE IV Last administered on 10/30/19at 10:38; Start 10/30/19 at 10:30; Stop 10/30/19 at 10:32; Status DC Succinylcholine Chloride (Anectine) 100 mg 1X ONCE IV Last administered on 10/30/19at 10:38; Start 10/30/19 at 10:30; Stop 10/30/19 at 10:32; Status DC Norepinephrine Bitartrate 8 mg/ Dextrose 258 ml @ 13.177 mls/ hr 1X ONCE IV Last administered on 10/30/19at 10:39; Start 10/30/19 at 10:25; Stop 10/31/19 at 05:59; Status DC Piperacillin Sod/ Tazobactam Sod 3.375 gm/Sodium Chloride 50 ml @ 100 mls/hr 1X ONCE IV Last administered on 10/30/19at 10:42; Start 10/30/19 at 11:00; Stop 10/30/19 at 11:29; Status DC Rocuronium [place] (Zemuron) 10 mg 1X ONCE IV ; Start 10/30/19 at 10:45; Stop 10/30/19 at 10:46; Status Cancel Sodium Chloride 1,000 ml @ 1,000 mls/hr 1X ONCE IV Last administered on 10/30/19at 10:43; Start 10/30/19 at 10:45; Stop 10/30/19 at 11:44; Status DC Sodium Chloride 1,000 ml @ 1,000 mls/hr 1X ONCE IV Last administered on 10/30/19at 10:43; Start 10/30/19 at 10:45; Stop 10/30/19 at 11:44; Status DC Rocuronium [place] (Zemuron) 50 mg 1X ONCE IV Last administered on 10/30/19at 10:45; Start 10/30/19 at 10:45; Stop 10/30/19 at 10:46; Status DC Potassium Chloride/Water 100 ml @ 100 mls/hr Q1H IV Last administered on at 12:56; Start 10/30/19 at 12:00; Stop 10/30/19 at 13:59; Status DC Insulin Human Regular 100 ml @ 0 mls/hr 1X ONCE IV Last administered on 10/30/19at 12:55; Start 10/30/19 at 12:00; Stop 10/30/19 at 12:01; Status DC Sodium Chloride 1,000 ml @ 1,000 mls/hr 1X ONCE IV Last administered on 10/30/19at 12:45; Start 10/30/19 at 12:15; Stop 10/30/19 at 13:14; Status DC Ondansetron HCl (Zofran) 4 mg PRN Q8HRS PRN IV NAUSEA/VOMITING; Start 10/30/19 at 12:30; Stop 10/31/19 at 12:29; Status DC Sodium Chloride 1,000 ml @ 125 mls/hr Q8H IV Last administered on 10/30/19at 15:20; Start 10/30/19 at 12:25; Stop 10/31/19 at 07:13; Status DC Dexmedetomidine HCl 400 mcg/ Sodium Chloride 100 ml @ 0 mls/hr CONT PRN IV SEE COMMENTS Last administered on 11/04/19at 06:04; Start 10/30/19 at 15:00 Fentanyl Citrate (Fentanyl 2ml Vial) 25 mcg PRN Q1HR PRN IV PAIN; Start 10/30/19 at 15:00; Status UNV Lorazepam (Ativan Inj) 0.5 mg PRN Q2HRS PRN IV AGITATION; Start 10/30/19 at 15:00; Status UNV Sodium Chloride 500 ml @ 500 mls/hr 1X PRN PRN IV COMMENTS; Start 10/30/19 at 15:00 Atropine Sulfate (ATROPINE 0.5mg SYRINGE) 0.5 mg PRN Q5MIN PRN IV SEE COMMENTS; Start 10/30/19 at 15:00 Midazolam HCl 100 ml @ 1 mls/hr CONT PRN IV SEE COMMENTS Last administered on 11/02/19at 08:30; Start 10/30/19 at 17:00 Pantoprazole Sodium (PROTONIX VIAL for IV PUSH) 40 mg DAILYAC IVP Last administered on 10/31/19at 07:23; Start 10/31/19 at 07:30; Stop 10/31/19 at 11:55; Status DC Pantoprazole Sodium (PROTONIX VIAL for IV PUSH) 40 mg 1X ONCE IVP Last administered on 10/30/19at 22:00; Start 10/30/19 at 18:45; Stop 10/30/19 at 18:47; Status DC Phytonadione (Vitamin K Ampule) 5 mg 1X ONCE SQ Last administered on 10/30/19at 20:01; Start 10/30/19 at 18:45; Stop 10/30/19 at 18:47; Status DC Fentanyl Citrate 30 ml @ 0 mls/hr CONT PRN IV SEE PROTOCOL Last administered on 11/04/19at 06:15; Start 10/30/19 at 19:00 Dextrose/Sodium Chloride 1,000 ml @ 250 mls/hr Q4H IV Last administered on 11/01/19at 12:40; Start 10/30/19 at 19:30; Stop 11/01/19 at 17:29; Status DC Potassium Phosphate 13.6 mmol/Sodium Chloride 254.5333 ml @ 127.... Q2H IV Last administered on 10/30/19at 22:00; Start 10/30/19 at 20:00; Stop 10/30/19 at 23:59; Status DC Piperacillin Sod/ Tazobactam Sod 2.25 gm/Sodium Chloride 50 ml @ 100 mls/hr Q6HRS IV Last administered on 10/31/19at 12:28; Start 10/31/19 at 00:00; Stop 10/31/19 at 14:01; Status DC Daptomycin 540 mg/ Sodium Chloride 50 ml @ 100 mls/hr ONCE ONCE IV Last administered on 10/30/19at 22:09; Start 10/30/19 at 22:00; Stop 10/30/19 at 22:29; Status DC Norepinephrine Bitartrate 8 mg/ Dextrose 258 ml @ 17.554 mls/ hr CONT PRN IV PER PROTOCOL Last administered on 11/03/19at 00:09; Start 10/30/19 at 22:15 Potassium Chloride/Water 100 ml @ 100 mls/hr Q1H IV Last administered on 10/31/19at 01:30; Start 10/30/19 at 23:30; Stop 10/31/19 at 02:29; Status DC Dextrose (Dextrose 50%-Water Syringe) 25 gm PRN Q10MIN PRN IV HYPOGLYCEMIA Last administered on 10/31/19at 02:39; Start 10/31/19 at 02:30 Potassium Chloride/Water 100 ml @ 100 mls/hr Q1H IV Last administered on 10/31/19at 04:39; Start 10/31/19 at 03:30; Stop 10/31/19 at 05:29; Status DC Insulin Human Regular 100 unit/ Sodium Chloride 101 ml @ 0 mls/hr CONT PRN IV SEE I/O RECORD Last administered on 11/01/19at 14:58; Start 10/31/19 at 03:15; Stop 11/04/19 at 08:38; Status DC Potassium Chloride/Water 100 ml @ 100 mls/hr Q1H IV Last administered on 10/31/19at 08:27; Start 10/31/19 at 07:30; Stop 10/31/19 at 09:29; Status DC Potassium Phosphate 13.6 mmol/Sodium Chloride 254.5333 ml @ 127.... Q2H IV Last administered on 10/31/19at 13:18; Start 10/31/19 at 11:00; Stop 10/31/19 at 14:59; Status DC Pantoprazole Sodium (PROTONIX VIAL for IV PUSH) 40 mg [id number] IVP Last administered on 11/04/19at 06:07; Start 10/31/19 at 18:00; Stop 11/04/19 at 16:29; Status DC Phytonadione (Vitamin K Ampule) 10 mg 1X ONCE SQ Last administered on 10/31/19at 12:29; Start 10/31/19 at 12:00; Stop 10/31/19 at 12:01; Status DC Linezolid/Dextrose 300 ml @ 300 mls/hr Q12HR IV Last administered on 11/02/19at 08:13; Start 10/31/19 at 14:00; Stop 11/02/19 at 08:50; Status DC Piperacillin Sod/ Tazobactam Sod 3.375 gm/Sodium Chloride 50 ml @ 100 mls/hr Q6HRS IV Last administered on 10/31/19at 18:06; Start 10/31/19 at 18:00; Stop 10/31/19 at 18:32; Status DC Acetaminophen (Tylenol Supp) 650 mg PRN Q6HRS PRN PA MILD PAIN / TEMP > 100.3'F Last administered on 11/04/19at 00:18; Start 10/31/19 at 16:00 Potassium Chloride/Water 100 ml @ 100 mls/hr Q1H IV Last administered on 10/31/19at 19:07; Start 10/31/19 at 18:00; Stop 10/31/19 at 19:59; Status DC Magnesium Sulfate 100 ml @ 25 mls/hr 1X ONCE IV Last administered on 10/31/19at 18:07; Start 10/31/19 at 18:00; Stop 10/31/19 at 21:59; Status DC Meropenem 500 mg/ Sodium Chloride 50 ml @ 100 mls/hr Q6HRS IV Last administered on 11/06/19at 05:07; Start 11/01/19 at 00:00 Potassium Chloride/Water 100 ml @ 100 mls/hr Q1H IV Last administered on 10/31/19at 23:45; Start 10/31/19 at 22:00; Stop 10/31/19 at 23:59; Status DC Potassium Chloride/Water 100 ml @ 100 mls/hr Q1H IV Last administered on 11/01/19at 03:45; Start 11/01/19 at 02:45; Stop 11/01/19 at 04:44; Status DC Potassium Phosphate 15 mmol/ Sodium Chloride 255 ml @ 62.5 mls/hr 1X ONCE IV Last administered on 11/01/19at 02:48; Start 11/01/19 at 02:45; Stop 11/01/19 at 06:49; Status DC Potassium Phosphate 13.6 mmol/Sodium Chloride 254.5333 ml @ 127.... 1X ONCE IV Last administered on 11/01/19at 09:17; Start 11/01/19 at 09:00; Stop 11/01/19 at 10:59; Status DC Info (Tpn Per Pharmacy) 1 each PRN DAILY PRN MC SEE COMMENTS Last administered on 11/05/19at 12:03; Start 11/01/19 at 11:00 Sodium Acetate 90 meq/Potassium Chloride 50 meq/ Potassium Phosphate 13.6 mmol/Magnesium Sulfate 10 meq/ Calcium Gluconate 10 meq/ Multivitamins 10 ml/Chromium/ Copper/Manganese/ Seleni/Zn 1 ml/ Total Parenteral Nutrition/Amino Acids/Dextrose/ Fat Emulsion Intravenous 1,512 ml @ 63 mls/hr TPN CONT IV Last administered on 11/01/19at 21:26; Start 11/01/19 at 22:00; Stop 11/02/19 at 21:59; Status DC Potassium Phosphate 13.6 mmol/Sodium Chloride 254.5333 ml @ 127.... 1X ONCE IV Last administered on 11/01/19at 13:06; Start 11/01/19 at 13:00; Stop 11/01/19 at 14:59; Status DC Insulin Glargine (Lantus Syringe) 20 unit 1X ONCE SQ Last administered on 11/01/19at 17:45; Start 11/01/19 at 18:00; Stop 11/01/19 at 18:01; Status DC Insulin Glargine (Lantus Syringe) 20 unit BID SQ Last administered on 11/05/19at 22:33; Start 11/02/19 at 09:00 Insulin Human Lispro (HumaLOG) 0-7 UNITS Q6HRS SQ Last administered on 11/06/19at 05:32; Start 11/02/19 at 00:00 Dextrose (Dextrose 50%-Water Syringe) 12.5 gm PRN Q15MIN PRN IV SEE COMMENTS; Start 11/01/19 at 17:30 Magnesium Sulfate 100 ml @ 25 mls/hr 1X ONCE IV Last administered on 11/01/19at 17:46; Start 11/01/19 at 18:00; Stop 11/01/19 at 21:59; Status DC Sodium Chloride 1,000 ml @ 125 mls/hr Q8H IV Last administered on 11/01/19at 17:45; Start 11/01/19 at 18:00; Status Hold Sodium Phosphate 15 mmol/Sodium Chloride 105 ml @ 105 mls/hr 1X ONCE IV Last administered on 11/02/19at 08:36; Start 11/02/19 at 09:00; Stop 11/02/19 at 09:59; Status DC Clindamycin Phosphate 50 ml @ 100 mls/hr Q8HRS IV Last administered on 10/10 09/28at 06:05; Start 11/02/19 at 14:00; Stop 11/04/19 at 06:59; Status DC Sodium Acetate 70 meq/Sodium Phosphate 18 mmol/ Potassium Chloride 50 meq/ Magnesium Sulfate 10 meq/Calcium Gluconate 10 meq/ Multivitamins 10 ml/Chromium/ Copper/Manganese/ Seleni/Zn 1 ml/ Total Parenteral Nutrition/Amino Acids/Dextrose/ Fat Emulsion Intravenous 1,512 ml @ 63 mls/hr TPN CONT IV Last administered on 11/02/19at 21:48; Start 11/02/19 at 22:00; Stop 11/03/19 at 21:59; Status DC Sodium Acetate 70 meq/Sodium Phosphate 24 mmol/ Potassium Chloride 50 meq/ Magnesium Sulfate 16 meq/Calcium Gluconate 10 meq/ Multivitamins 10 ml/Chromium/ Copper/Manganese/ Seleni/Zn 1 ml/ Total Parenteral Nutrition/Amino Acids/Dextrose/ Fat Emulsion Intravenous 1,512 ml @ 63 mls/hr TPN CONT IV Last administered on 11/03/19at 21:17; Start 11/03/19 at 22:00; Stop 11/04/19 at 21:59; Status DC Daptomycin 450 mg/ Sodium Chloride 50 ml @ 100 mls/hr Q24H IV ; Start 11/04/19 at 09:00; Stop 11/04/19 at 07:23; Status DC Micafungin Sodium 100 mg/Dextrose 100 ml @ 100 mls/hr Q24H IV Last administered on 11/06/19at 08:30; Start 11/04/19 at 08:00 Linezolid/Dextrose 300 ml @ 300 mls/hr Q12HR IV Last administered on 11/05/19at 22:28; Start 11/04/19 at 09:00 Sodium Acetate 70 meq/Sodium Phosphate 24 mmol/ Potassium Chloride 50 meq/ Magnesium Sulfate 16 meq/Calcium Gluconate 10 meq/ Multivitamins 10 ml/Chromium/ Copper/Manganese/ Seleni/Zn 1 ml/ Total Parenteral Nutrition/Amino Acids/Dextrose/ Fat Emulsion Intravenous 1,800 ml @ 75 mls/hr TPN CONT IV Las t administered on 11/04/19at 21:11; Start 11/04/19 at 22:00; Stop 11/05/19 at 21:59; Status DC Albuterol Sulfate (Ventolin Neb Soln) 2.5 mg PRN Q4HRS PRN NEB WHEEZING; Start 11/04/19 at 16:30 Docusate Sodium (Colace) 100 mg PRN BID PRN PO HARD STOOLS; Start 11/04/19 at 16:30 Lactobacillus Rhamnosus (Culturelle) 1 cap BID PO Last administered on 11/05/19at 09:03; Start 11/04/19 at 21:00 Lisinopril (Prinivil) 5 mg DAILY PO Last administered on 11/05/19at 09:03; Start 11/05/19 at 09:00 Pantoprazole Sodium (Protonix) 40 mg DAILYAC PO Last administered on 11/05/19at 09:03; Start 11/05/19 at 07:30 Potassium Chloride (Klor-Con) 20 meq DAILYWBKFT PO ; Start 11/05/19 at 08:00 Non-Formulary Medication (Doxepin Hcl ) 300 mg HS PO ; Start 11/04/19 at 21:00 [place] Carbonate (Lithobid) 300 mg BID PO Last administered on 11/05/19at 09:03; Start 11/04/19 at 21:00 Tizanidine HCl (Zanaflex) 4 mg PRN Q8HRS PRN PO MUSCLE SPASMS; Start 11/04/19 at 16:45 Clonazepam (KlonoPIN) 1 mg PRN BID PRN PO ANXIETY / AGITATION; Start 11/04/19 at 16:30 Acetaminophen (Tylenol) 650 mg PRN Q6HRS PRN PO MILD PAIN / TEMP > 100.3'F; Start 11/04/19 at 16:30 Nystatin (Nystop) 1 elmer BID TP Last administered on 11/05/19at 23:06; Start 11/04/19 at 21:00 Sodium Acetate 70 meq/Sodium Phosphate 12 mmol/ Potassium Chloride 50 meq/ Magnesium Sulfate 16 meq/Calcium Gluconate 10 meq/ Multivitamins 10 ml/Chromium/ Copper/Manganese/ Seleni/Zn 1 ml/ Insulin Human Regular 10 unit/ Total Parenteral Nutrition/Amino Acids/Dextrose/ Fat Emulsion Intravenous 1,800 ml @ 75 mls/hr TPN CONT IV Last administered on 11/05/19at 22:32; Start 11/05/19 at 22:00; Stop 11/06/19 at 21:59 Active Scripts Active Humalog (Insulin Lispro) 100 Unit/1 Ml Insuln.pen 0 Units SQ QIDACHS 14 Days Culturelle (Lactobacillus Rhamnosus Gg) 1 Each Cap.sprink 1 Cap PO BID 30 Days Pantoprazole Sodium (Pantoprazole Sodium) 40 Mg Tablet.dr 40 Mg PO DAILYAC 30 Days Dok (Docusate Sodium) 100 Mg Capsule 100 Mg PO PRN BID PRN 30 Days Klor-Con M20 (Potassium Chloride) 20 Meq Tab.er.prt 20 Meq PO DAILYWBKFT 14 Days Proair Hfa (Albuterol Sulfate) 8.5 Gm Hfa.aer.ad 2.5 Mg NEB PRN Q4HRS PRN 14 D ays Reported Clindamycin Hcl 300 Mg Capsule 600 Mg PO BID Lidocaine PATCH (Lidocaine) 1 Each Adh..patch 1 Each TP DAILY REMOVE AFTER 12 HOURS Lisinopril 5 Mg Tablet 1 Tab PO DAILY Clonazepam 1 Mg Tablet 1 Mg PO BID [place] Carbonate 300 Mg Tablet 1 Tab PO BID Zanaflex (Tizanidine Hcl) 4 Mg Capsule 1 Cap PO TID PRN Janumet 50-1,000 Mg Tablet (Sitagliptin Phos/Metformin Hcl) 1 Each Tablet 1 Tab PO BID Doxepin Hcl 50 Mg Capsule 300 Mg PO HS Vitals/I & O Vital Sign - Last 24 Hours 11/05/19 11/05/19 11/05/19 11/05/19 09:00 09:03 10:00 11:00 Pulse 108 110 110 108 Resp 16 14 18 B/P (MAP) 154/95 (114) 154/95 147/87 (107) 156/96 (116) Pulse Ox 98 98 99 O2 Delivery Room Air Room Air Room Air 11/05/19 11/05/19 11/05/19 11/05/19 12:00 12:00 13:03 15:20 Temp 98.8 99.2 98.8 99.2 Pulse 110 113 Resp 20 16 18 B/P (MAP) 157/95 (115) 135/90 (105) 136/89 (105) Pulse Ox 99 98 94 O2 Delivery Room Air Room Air Room Air Room Air 11/05/19 11/05/19 11/05/19 11/06/19 19:00 20:00 23:00 03:00 Temp 99.2 99.1 98.8 99.2 99.1 98.8 Pulse 111 107 105 Resp 20 20 18 B/P (MAP) 148/98 (115) 138/108 (118) 157/90 (112) Pulse Ox 97 98 98 O2 Delivery Room Air Room Air Room Air Room Air 11/06/19 07:00 Temp 98.0 98.0 Pulse 108 Resp 20 B/P (MAP) 149/90 (109) Pulse Ox 100 O2 Delivery Room Air Intake and Output 11/05/19 11/05/19 11/06/19 15:00 23:00 07:00 Intake Total 1222 ml 0 ml 400 ml Output Total 550 ml 300 ml Balance 672 ml -300 ml 400 ml Justicifation of Admission Dx: Justifications for Admission: Justification of Admission Dx: Yes Comminuty Aquired Pneumonia: Hemodynamic Instability Acute Renal Failure: RF Can't Be Managed Outpt Sepsis: Altered Mental Status DKA: DKA Nutrition Consultation Dietary Evaluation: Recommendations by RD: Dietary education by RD, Increase Calorie Intake, PPN/TPN Comments: Continue w/TPN per following for nutrition support needs while intubated: 75g AA, 225g dextrose, 20g lipids Expected Outcomes/Goals: Initiation of nutrition within 24 - 48 hrs of intubation - met, new goal established New goal 11/01: TPN infusion to meet >65% est needs while intubated Interpretation of weight loss: >7.5% in 3 months Malnutrition Findings: Food and Nutrition Intake (Sev: <50% est energy req 5days Weight Status: Appropriate TOMMY THOMPSON MD Nov 06, 2019 08:50
[2019-11-06] MEDS: LISINOPRIL 5 MG TABLET. PO SCH (09:00)
[2019-11-06] MEDS: LITHIUM CARBONATE ER 300 MG TABLET.ER PO SCH ×2 (09:00→20:52)
[2019-11-06] MEDS: LACTOBACILLUS RHAMNOSUS GG 1 CAPSULE. PO SCH ×2 (09:00→20:52)
--- NOTE | 2019-11-06 09:18 | PDOC ---
PULMONARY PROGRESS NOTES Subjective extubated 11/03 doing well ,on RA Vitals Vital Signs Date Time Temp Pulse Resp B/P (MAP) Pulse Ox O2 Delivery O2 Flow Rate FiO2 11/06/19 07:00 98.0 108 20 149/90 (109) 100 Room Air 98.0 General: Alert, No acute distress Lungs: Clear Cardiovascular: S1 Abdomen: Soft, Other Extremities: No Edema Skin: Warm Labs Laboratory Tests Test 11/04/19 13:10 11/04/19 17:54 11/04/19 21:07 11/04/19 23:40 Glucose (Fingerstick) 245 mg/dL (70-99) 284 mg/dL (70-99) 266 mg/dL (70-99) 312 mg/dL (70-99) Test 11/05/19 05:54 11/05/19 06:00 11/05/19 11:44 11/05/19 18:25 Glucose (Fingerstick) 265 mg/dL (70-99) 288 mg/dL (70-99) 257 mg/dL (70-99) White Blood Count 4.4 x10^3/uL (4.0-11.0) Red Blood Count 3.36 x10^6/uL (4.30-5.70) Hemoglobin 8.2 g/dL (13.0-17.5) Hematocrit 25.2 % (39.0-53.0) Mean Corpuscular Volume 75 fL (79-100) Mean Corpuscular Hemoglobin 24 pg (25-35) Mean Corpuscular Hemoglobin Concent 32 g/dL (31-37) Red Cell Distribution Width 21.8 % (11.5-14.5) Platelet Count 117 x10^3/uL (140-400) Neutrophils (%) (Auto) 64 % (31-73) Lymphocytes (%) (Auto) 22 % (24-48) Monocytes (%) (Auto) 12 % (0-9) Eosinophils (%) (Auto) 1 % (0-3) Basophils (%) (Auto) 1 % (0-3) Neutrophils # (Auto) 2.8 x10^3/uL (1.8-7.7) Lymphocytes # (Auto) 1.0 x10^3/uL (1.0-4.8) Monocytes # (Auto) 0.5 x10^3/uL (0.0-1.1) Eosinophils # (Auto) 0.0 x10^3/uL (0.0-0.7) Basophils # (Auto) 0.0 x10^3/uL (0.0-0.2) Sodium Level 144 mmol/L (136-145) Potassium Level 4.3 mmol/L (3.5-5.1) Chloride Level 111 mmol/L (98-107) Carbon Dioxide Level 25 mmol/L (21-32) Anion Gap 8 (6-14) Blood Urea Nitrogen 20 mg/dL (8-26) Creatinine 0.8 mg/dL (0.7-1.3) Estimated GFR (Cockcroft-Gault) 102.3 BUN/Creatinine Ratio 25 (6-20) Glucose Level 265 mg/dL (70-99) Calcium Level 8.3 mg/dL (8.5-10.1) Phosphorus Level 4.1 mg/dL (2.6-4.7) Magnesium Level 1.8 mg/dL (1.8-2.4) Total Bilirubin 0.4 mg/dL (0.2-1.0) Aspartate Amino Transf (AST/SGOT) 98 U/L (15-37) Alanine Aminotransferase (ALT/SGPT) 86 U/L (16-63) Alkaline Phosphatase 166 U/L (46-116) Total Protein 5.7 g/dL (6.4-8.2) Albumin 1.7 g/dL (3.4-5.0) Albumin/Globulin Ratio 0.4 (1.0-1.7) Test 11/06/19 00:20 11/06/19 03:40 11/06/19 05:25 Glucose (Fingerstick) 265 mg/dL (70-99) 231 mg/dL (70-99) White Blood Count 6.0 x10^3/uL (4.0-11.0) Red Blood Count 3.38 x10^6/uL (4.30-5.70) Hemoglobin 8.3 g/dL (13.0-17.5) Hematocrit 25.4 % (39.0-53.0) Mean Corpuscular Volume 75 fL (79-100) Mean Corpuscular Hemoglobin 25 pg (25-35) Mean Corpuscular Hemoglobin Concent 33 g/dL (31-37) Red Cell Distribution Width 22.0 % (11.5-14.5) Platelet Count 220 x10^3/uL (140-400) Neutrophils (%) (Auto) 67 % (31-73) Lymphocytes (%) (Auto) 18 % (24-48) Monocytes (%) (Auto) 12 % (0-9) Eosinophils (%) (Auto) 2 % (0-3) Basophils (%) (Auto) 1 % (0-3) Neutrophils # (Auto) 4.0 x10^3/uL (1.8-7.7) Lymphocytes # (Auto) 1.1 x10^3/uL (1.0-4.8) Monocytes # (Auto) 0.7 x10^3/uL (0.0-1.1) Eosinophils # (Auto) 0.1 x10^3/uL (0.0-0.7) Basophils # (Auto) 0.1 x10^3/uL (0.0-0.2) Laboratory Tests Test 11/05/19 11:44 11/05/19 18:25 11/06/19 00:20 11/06/19 03:40 Glucose (Fingerstick) 288 mg/dL (70-99) 257 mg/dL (70-99) 265 mg/dL (70-99) White Blood Count 6.0 x10^3/uL (4.0-11.0) Red Blood Count 3.38 x10^6/uL (4.30-5.70) Hemoglobin 8.3 g/dL (13.0-17.5) Hematocrit 25.4 % (39.0-53.0) Mean Corpuscular Volume 75 fL (79-100) Mean Corpuscular Hemoglobin 25 pg (25-35) Mean Corpuscular Hemoglobin Concent 33 g/dL (31-37) Red Cell Distribution Width 22.0 % (11.5-14.5) Platelet Count 220 x10^3/uL (140-400) Neutrophils (%) (Auto) 67 % (31-73) Lymphocytes (%) (Auto) 18 % (24-48) Monocytes (%) (Auto) 12 % (0-9) Eosinophils (%) (Auto) 2 % (0-3) Basophils (%) (Auto) 1 % (0-3) Neutrophils # (Auto) 4.0 x10^3/uL (1.8-7.7) Lymphocytes # (Auto) 1.1 x10^3/uL (1.0-4.8) Monocytes # (Auto) 0.7 x10^3/uL (0.0-1.1) Eosinophils # (Auto) 0.1 x10^3/uL (0.0-0.7) Basophils # (Auto) 0.1 x10^3/uL (0.0-0.2) Test 11/06/19 05:25 Glucose (Fingerstick) 231 mg/dL (70-99) Medications Active Scripts Medications Dose Route/Sig Max Daily Dose Days Date Category Dose Instructions Humalog (Insulin Lispro) 100 Unit/1 Ml Insuln.pen 0 Units SQ QIDACHS 14 09/16/19 Rx Culturelle (Lactobacillus Rhamnosus Gg) 1 Each Cap.sprink 1 Cap PO BID 30 09/16/19 Rx Pantoprazole Sodium (Pantoprazole Sodium) 40 Mg Tablet.dr 40 Mg PO DAILYAC 30 09/16/19 Rx Dok (Docusate Sodium) 100 Mg Capsule 100 Mg PO PRN BID PRN 30 09/16/19 Rx Klor-Con M20 (Potassium Chloride) 20 Meq Tab.er.prt 20 Meq PO DAILYWBKFT 14 09/16/19 Rx Proair Hfa (Albuterol Sulfate) 8.5 Gm Hfa.aer.ad 2.5 Mg NEB PRN Q4HRS PRN 14 09/16/19 Rx Clindamycin Hcl 300 Mg Capsule 600 Mg PO BID 09/11/19 Reported Lidocaine PATCH (Lidocaine) 1 Each Adh..patch 1 Each TP DAILY 03/12/19 Reported REMOVE AFTER 12 HOURS Lisinopril 5 Mg Tablet 1 Tab PO DAILY PRN 03/12/19 Reported Clonazepam 1 Mg Tablet 1 Mg PO BID 03/12/19 Reported Gamaliel Carbonate 300 Mg Tablet 1 Tab PO BID 08/08/18 Reported Zanaflex (Tizanidine Hcl) 4 Mg Capsule 1 Cap PO TID PRN 08/25/15 Reported Janumet 50-1,000 Mg Tablet (Sitagliptin Phos/Metformin Hcl) 1 Each Tablet 1 Tab PO BID 10/9/15 Reported Doxepin Hcl 50 Mg Capsule 300 Mg PO HS 01/17/15 Reported Comments cxr 10/31 reviewed. no ptx BLOOD CULTURE LC Final Final GRAM POSITIVE COCCI FINAL ID= [STAPHYLOCOCCUS HAEMOLYTICUS MR] STAPHYLOCOCCUS HAEMOLYTICUS MR ANTIMICROBIAL SUSCEPTIBILITY Final Comment POS [place] TYPE 38 STAPHYLOCOCCUS HAEMOLYTICUS MR ANTIBIOTIC RESULT INTERPRETATION AZITHROMYCIN >4 R CLINDAMYCIN >4 R CIPROFLOXACIN >2 R DAPTOMYCIN <=0.5 S ERYTHROMYCIN >4 R GENTAMICIN >8 R LINEZOLID <=1 S LEVOFLOXACIN >4 R OXACILLIN >2 R PENICILLIN >2 R RIFAMPIN <=1 S TRIMETHOPRIM/SULFAMETHOXAZOLE >2/38 R TETRACYCLINE >8 R VANCOMYCIN 1 S Unless otherwise specified, Testing Performed by: [address] [address] For Inquires, the Physician may contact the Microbiology department at [phone] Impression . IMPRESSION: 1. Acute hypoxemic respiratory failure secondary to acute metabolic acidosis. extubated 11/03 2. Diabetic ketoacidosis. resolved 3. Septic shock.resolved 4. Bacteremia, gram-positive cocci, 1/3 bottles. FINAL ID= [STAPHYLOCOCCUS HAEMOLYTICUS MR] 5. Recent laparoscopic cholecystectomy. 6. Acute on chronic kidney injury. 7. COVID-19, suspect. 8. Tobacco dependent. 9. Chronic obstructive pulmonary disease, unknown FEV1. 10. Small left-sided pneumo small seen on ct abd, not seen on f/u cxr 10/31 11. New pseudocyst fluid collection, seen on CT abdomen, per GI. CT abdomen pelvis IMPRESSION: 1. Small moderate left pneumothorax, incompletely evaluated. 2. Interval development of a 6.3 cm pseudocyst along the pancreatic body. 3. Another 6 cm fluid collection along the medial aspect of the hepatic caudate lobe also likely reflects a pseudocyst. 4. Right colonic wall thickening. Correlate for colitis. 5. A rim calcified 10 mm mass along the left kidney medially may be a complicated cyst but is indeterminate. Sonographic follow-up could be performed in 6 months. Plan . Spoke with at bedside Doing well since extubated on RA PT/OT/ SPEECH consult Follow GI input antibiotics per ID Monitor blood sugars Monitor H&H 10/31 chest x-ray shows no pneumothorax stable pulmonary status. will see HAMMAD VASQUEZ MD Nov 06, 2019 09:18
--- NOTE | 2019-11-06 10:26 | PDOC ---
Infectious Disease Note Subjective Subjective Doing ok - bored Hungry. No pain No F/C/S/N/V/rash ROS ROS o/w neg Vital Sign Vital Signs Vital Signs Date Time Temp Pulse Resp B/P (MAP) Pulse Ox O2 Delivery O2 Flow Rate FiO2 11/06/19 07:00 98.0 108 20 149/90 (109) 100 Room Air 98.0 Physical Exam PHYSICAL EXAM GENERAL: Alert and sitting up in bed. NAD HEENT: Normocephalic, atraumatic, nml conj. OC/Op -clear NECK: Supple, no JVD, no lymphadenopathy, no thyromegaly. LUNGS: Decreased breath sounds at the bases, otherwise, clear. HEART: S1, S2, tachycardia. No murmurs. ABDOMEN: Soft, nontender, bowel sounds present. EXTREMITIES: No cyanosis, no clubbing, no edema. Negative Nestor's sign. MUSCULOSKELETAL: Previous left knee surgery. Incision scar intact. No effusion. No surrounding erythema, no fluctuance. Nestor's negative. DERMATOLOGIC: Warm, dry. No generalized rash. NEUROLOGIC: Sedated. PSYCHIATRIC: Sedated. LINES: Left central line looks clean. PIV looks clean. Labs Lab Laboratory Tests Test 11/05/19 11:44 11/05/19 18:25 11/06/19 00:20 11/06/19 03:40 Glucose (Fingerstick) 288 mg/dL (70-99) 257 mg/dL (70-99) 265 mg/dL (70-99) White Blood Count 6.0 x10^3/uL (4.0-11.0) Red Blood Count 3.38 x10^6/uL (4.30-5.70) Hemoglobin 8.3 g/dL (13.0-17.5) Hematocrit 25.4 % (39.0-53.0) Mean Corpuscular Volume 75 fL (79-100) Mean Corpuscular Hemoglobin 25 pg (25-35) Mean Corpuscular Hemoglobin Concent 33 g/dL (31-37) Red Cell Distribution Width 22.0 % (11.5-14.5) Platelet Count 220 x10^3/uL (140-400) Neutrophils (%) (Auto) 67 % (31-73) Lymphocytes (%) (Auto) 18 % (24-48) Monocytes (%) (Auto) 12 % (0-9) Eosinophils (%) (Auto) 2 % (0-3) Basophils (%) (Auto) 1 % (0-3) Neutrophils # (Auto) 4.0 x10^3/uL (1.8-7.7) Lymphocytes # (Auto) 1.1 x10^3/uL (1.0-4.8) Monocytes # (Auto) 0.7 x10^3/uL (0.0-1.1) Eosinophils # (Auto) 0.1 x10^3/uL (0.0-0.7) Basophils # (Auto) 0.1 x10^3/uL (0.0-0.2) Test 11/06/19 05:25 Glucose (Fingerstick) 231 mg/dL (70-99) Micro Microbiology 11/04/19 Blood Culture - Preliminary, Resulted NO GROWTH AFTER 1 DAY 10/30/19 Urine Culture - Final, Complete Objective Assessment Fever - better low grade - could be from underlying pancreatic pseudocyst Septic shock POA from strep group B bacteremia Group B strep bacteremia 10/29 POA source likely GI Blood cultures 10/31 staph hemolyticus possible contaminant / Encephalopathy present on admission Acute respiratory failure status post intubation in the ED, Pneumothorax stable Lactic acidosis. Likely factorial Diabetic ketoacidosis. Acute kidney injury with underlying CKD.- better Lymphopenia. Coagulopathy. Status post vitamin K Nausea and vomiting, chronically since last surgery with gallbladder. GI bleed Recent Pancreatitis, status post laparoscopic cholecystectomy on 09/14/2019.;now with pseudocyst/fluid collection Weight loss due to poor p.o. 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 Currently well healed. Hypertension. Bipolar disorder. Anemia Thrombocytopenia High BNP and troponin leak Intolerance to Daptomycin with nausea, tolerated it twice for weeks in the past Last year. on chronic suppressive clindamycin Plan Plan of Care Continue meropenem 10/31 Started linezolid 11/03 and micafungin 11/03 DC Daptomycin 11/03 (allergy) f/u repeat blood culture Pulmonary ,hematology GI team following Monitor labs Continue supportive care. Will need to restart prophylactic abx at discharge Discussed with nursing staff and family VELIA NATH MD Nov 06, 2019 10:26
[2019-11-06 11:00] VITALS: BP 142/100
--- NOTE | 2019-11-06 11:29 | PDOC ---
[employer] [facility] PROGRESS NOTE Chief Complaint Chief Complaint Sepsis respiratory failure DKA Bacteremia, gram-positive cocci, 1/3 bottles. Recent laparoscopic cholecystectomy about 6 weeks ago Acute on chronic kidney injury. hypophosphatemia Elevated INR, likely secondary to DIC DM2 Small moderate left pneumothorax, incompletely evaluated. Interval development of a 6.3 cm pseudocyst along the pancreatic body. Another 6 cm fluid collection along the medial aspect of the hepatic caudate lobe also likely reflects a pseudocyst. Right colonic wall thickening. Correlate for colitis. rim calcified 10 mm mass along the left kidney medially may be a complicated cyst but is indeterminate. Sonographic follow-up could be performed in 6 months. severe protein-caloric malnutrition Plan Continue meropenem iv , Zyvox , Micafungin Repeat blood culture Pulmonary ,hematology GI following Source of bacteremia remains unclear Appreciate surgery input TPN May need drainage of pancreatic cyst if condition fails to improve Dr. Alcantara will be in 11/04 to see 35 min critical care time SOURCE: BLOOD ENTR: 11/01/19-[address]: VISHAL KATZ III DO [facility]: RUTH DOUGLASS MD,ELIZABETH ROBERTS,KAMERON MAYORGA,KUNAL SHEA,BAMBI HAYNES,BRIANNE Santiago MD ORDERED: BCULT Procedure Result BLOOD CULTURE Final GRAM POSITIVE COCCI IN 1 OF 2 BOTTLES OF A SINGLE SET COLLECTED 11/01/19. CALLED TO DEMETRIA OLIVERA IN ICU 11/02/19 AT 0745 BY Jesus SCHROEDER. CULTURE HAS BEEN SENT FOR FURTHER IDENTIFICATION. Operative Note Operative Note Operative Note: Preoperative Diagnosis: Gallstone pancreatitis Postoperative Diagnosis: Same Procedure: Laparoscopic cholecystectomy with intraoperative cholangiogram Surgeons: [place] [employer] Officer: Aron WING Anesthesia: Gen. Estimated Blood Loss: 10 mL Specimen: Gallbladder to pathology Drains: None Complications: None Indications: The patient is a 49-year-old male who was admitted with prominent vomiting and abdominal pain. History of Present Illness History of Present Illness 11/06/2019 Patient seen and examined Resting in bed Discussed with RN and patient's mother Chart reviewed 11/04/2019 Patient seen and examined in ICU Strange BSD NG tube intermittent suction remains critically ill Discussed with RN and patient's mother Chart reviewed Vitals/I&O Vitals/I&O: Vital Signs Date Time Temp Pulse Resp B/P (MAP) Pulse Ox O2 Delivery O2 Flow Rate FiO2 11/06/19 09:00 108 149/90 11/06/19 07:00 98.0 20 100 Room Air 98.0 I & O 11/05/19 11/05/19 11/06/19 15:00 23:00 07:00 Intake Total 1222 ml 0 ml 400 ml Output Total 550 ml 300 ml Balance 672 ml -300 ml 400 ml Physical Exam Physical Exam: GENERAL: Alert and sitting up in bed. NAD HEENT: Normocephalic, atraumatic, nml conj. OC/Op -clear NECK: Supple, no lymphadenopathy, no thyromegaly. LUNGS: Decreased breath sounds at the bases, otherwise, clear. HEART: S1, S2, tachycardia. No murmurs. ABDOMEN: Soft, nontender. EXTREMITIES: No cyanosis, no clubbing, mild generalized edema. MUSCULOSKELETAL: Previous left knee surgery. Incision scar intact. No effusion. No surrounding erythema, no fluctuance. DERMATOLOGIC: Warm, dry. No generalized rash. NEUROLOGIC: Cooperative. Alert, oriented x1 General: Alert, Cooperative Heart: Normal S1, Normal S2 Lungs: Clear Abdomen: Soft, No tenderness Extremities: Other (Mild generalized edema) Skin: No rashes, No significant lesion Labs Labs: Laboratory Tests Test 11/05/19 11:44 11/05/19 18:25 11/06/19 00:20 11/06/19 03:40 Glucose (Fingerstick) 288 mg/dL (70-99) 257 mg/dL (70-99) 265 mg/dL (70-99) White Blood Count 6.0 x10^3/uL (4.0-11.0) Red Blood Count 3.38 x10^6/uL (4.30-5.70) Hemoglobin 8.3 g/dL (13.0-17.5) Hematocrit 25.4 % (39.0-53.0) Mean Corpuscular Volume 75 fL (79-100) Mean Corpuscular Hemoglobin 25 pg (25-35) Mean Corpuscular Hemoglobin Concent 33 g/dL (31-37) Red Cell Distribution Width 22.0 % (11.5-14.5) Platelet Count 220 x10^3/uL (140-400) Neutrophils (%) (Auto) 67 % (31-73) Lymphocytes (%) (Auto) 18 % (24-48) Monocytes (%) (Auto) 12 % (0-9) Eosinophils (%) (Auto) 2 % (0-3) Basophils (%) (Auto) 1 % (0-3) Neutrophils # (Auto) 4.0 x10^3/uL (1.8-7.7) Lymphocytes # (Auto) 1.1 x10^3/uL (1.0-4.8) Monocytes # (Auto) 0.7 x10^3/uL (0.0-1.1) Eosinophils # (Auto) 0.1 x10^3/uL (0.0-0.7) Basophils # (Auto) 0.1 x10^3/uL (0.0-0.2) Test 11/06/19 05:25 Glucose (Fingerstick) 231 mg/dL (70-99) Assessment and Plan Assessmemt and Plan Problems Medical Problems: (1) DKA (diabetic ketoacidoses) Status: Acute (2) Hypokalemia Status: Acute (3) Respiratory failure Status: Acute (4) Severe sepsis Status: Acute (5) Suspected 2019-nCoV infection Status: Acute ASSESSMENT Sepsis, resolved Respiratory failure, resolved DKA, resolved Bacteremia, gram-positive cocci, 1/2 bottles Recent laparoscopic cholecystectomy, 6 weeks ago Acute on chronic kidney injury. Hypophosphatemia Elevated INR, improved DM2 Interval development of a 6.3 cm pseudocyst along the pancreatic body. Another 6 cm fluid collection along the medial aspect of the hepatic caudate lobe, also likely reflects a pseudocyst. Right colonic wall thickening. Correlate for colitis. Rim calcified 10 mm mass along the left kidney medially may be a complicated cyst but is indeterminate. Sonographic follow-up could be performed in 6 months. Severe protein-caloric malnutrition PLAN I called and talked to the wound care team Continue current care Consult neurology Home meds if possible Awaiting repeat swallow eval tomorrow Trend labs IV antibiotics TPN PT/OT Appreciate subspecialist input DVT prophylaxis Full code Possible [facility] rehab eval Comment Review of Relevant I have reviewed the following items blaze (where applicable) has been applied. Medications: Current Medications Medications (Trade) Dose Ordered Sig/Edilma Route PRN Reason Start Time Stop Time Status Last Admin Dose Admin Sodium Acetate 70 meq/Sodium Phosphate 12 mmol/ Potassium Chloride 50 meq/ Magnesium Sulfate 16 meq/Calcium Gluconate 10 meq/ Multivitamins 10 ml/Chromium/ Copper/Manganese/ Seleni/Zn 1 ml/ Insulin Human Regular 10 unit/ Total Parenteral Nutrition/Amino Acids/Dextrose/ Fat Emulsion Intravenous 1,800 ml @ 75 mls/hr TPN CONT IV 11/05/19 22:00 11/06/19 21:59 11/05/19 22:32 Justicifation of Admission Dx: Justifications for Admission: Justification of Admission Dx: Yes Comminuty Aquired Pneumonia: Hemodynamic Instability Acute Renal Failure: RF Can't Be Managed Outpt Sepsis: Altered Mental Status DKA: DKA VISHAL KATZ III DO Nov 06, 2019 11:29
[2019-11-06] MEDS: INSULIN GLARGINE SYRINGE. SQ SCH ×2 (11:35→21:30)
[2019-11-06] MEDS: NYSTATIN TOPICAL POWDER 15GM BOTTLE. TP SCH ×2 (11:37→21:00)
--- NOTE | 2019-11-06 12:38 | PDOC ---
G I PROGRESS NOTE Subjective Vocalizes very little. Seems to deny pain. 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 Physical Exam Lungs clear anteriorly. RRR Abdomen soft, no apparent tenderness. Review of Relevant I have reviewed the following items blaze (where applicable) has been applied. Labs Laboratory Tests Test 11/04/19 13:10 11/04/19 17:54 11/04/19 21:07 11/04/19 23:40 Glucose (Fingerstick) 245 mg/dL (70-99) 284 mg/dL (70-99) 266 mg/dL (70-99) 312 mg/dL (70-99) Test 11/05/19 05:54 11/05/19 06:00 11/05/19 11:44 11/05/19 18:25 Glucose (Fingerstick) 265 mg/dL (70-99) 288 mg/dL (70-99) 257 mg/dL (70-99) White Blood Count 4.4 x10^3/uL (4.0-11.0) Red Blood Count 3.36 x10^6/uL (4.30-5.70) Hemoglobin 8.2 g/dL (13.0-17.5) Hematocrit 25.2 % (39.0-53.0) Mean Corpuscular Volume 75 fL (79-100) Mean Corpuscular Hemoglobin 24 pg (25-35) Mean Corpuscular Hemoglobin Concent 32 g/dL (31-37) Red Cell Distribution Width 21.8 % (11.5-14.5) Platelet Count 117 x10^3/uL (140-400) Neutrophils (%) (Auto) 64 % (31-73) Lymphocytes (%) (Auto) 22 % (24-48) Monocytes (%) (Auto) 12 % (0-9) Eosinophils (%) (Auto) 1 % (0-3) Basophils (%) (Auto) 1 % (0-3) Neutrophils # (Auto) 2.8 x10^3/uL (1.8-7.7) Lymphocytes # (Auto) 1.0 x10^3/uL (1.0-4.8) Monocytes # (Auto) 0.5 x10^3/uL (0.0-1.1) Eosinophils # (Auto) 0.0 x10^3/uL (0.0-0.7) Basophils # (Auto) 0.0 x10^3/uL (0.0-0.2) Sodium Level 144 mmol/L (136-145) Potassium Level 4.3 mmol/L (3.5-5.1) Chloride Level 111 mmol/L (98-107) Carbon Dioxide Level 25 mmol/L (21-32) Anion Gap 8 (6-14) Blood Urea Nitrogen 20 mg/dL (8-26) Creatinine 0.8 mg/dL (0.7-1.3) Estimated GFR (Cockcroft-Gault) 102.3 BUN/Creatinine Ratio 25 (6-20) Glucose Level 265 mg/dL (70-99) Calcium Level 8.3 mg/dL (8.5-10.1) Phosphorus Level 4.1 mg/dL (2.6-4.7) Magnesium Level 1.8 mg/dL (1.8-2.4) Total Bilirubin 0.4 mg/dL (0.2-1.0) Aspartate Amino Transf (AST/SGOT) 98 U/L (15-37) Alanine Aminotransferase (ALT/SGPT) 86 U/L (16-63) Alkaline Phosphatase 166 U/L (46-116) Total Protein 5.7 g/dL (6.4-8.2) Albumin 1.7 g/dL (3.4-5.0) Albumin/Globulin Ratio 0.4 (1.0-1.7) Test 11/06/19 00:20 11/06/19 03:40 11/06/19 05:25 11/06/19 11:22 Glucose (Fingerstick) 265 mg/dL (70-99) 231 mg/dL (70-99) 187 mg/dL (70-99) White Blood Count 6.0 x10^3/uL (4.0-11.0) Red Blood Count 3.38 x10^6/uL (4.30-5.70) Hemoglobin 8.3 g/dL (13.0-17.5) Hematocrit 25.4 % (39.0-53.0) Mean Corpuscular Volume 75 fL (79-100) Mean Corpuscular Hemoglobin 25 pg (25-35) Mean Corpuscular Hemoglobin Concent 33 g/dL (31-37) Red Cell Distribution Width 22.0 % (11.5-14.5) Platelet Count 220 x10^3/uL (140-400) Neutrophils (%) (Auto) 67 % (31-73) Lymphocytes (%) (Auto) 18 % (24-48) Monocytes (%) (Auto) 12 % (0-9) Eosinophils (%) (Auto) 2 % (0-3) Basophils (%) (Auto) 1 % (0-3) Neutrophils # (Auto) 4.0 x10^3/uL (1.8-7.7) Lymphocytes # (Auto) 1.1 x10^3/uL (1.0-4.8) Monocytes # (Auto) 0.7 x10^3/uL (0.0-1.1) Eosinophils # (Auto) 0.1 x10^3/uL (0.0-0.7) Basophils # (Auto) 0.1 x10^3/uL (0.0-0.2) Laboratory Tests Test 11/05/19 18:25 11/06/19 00:20 11/06/19 03:40 11/06/19 05:25 Glucose (Fingerstick) 257 mg/dL (70-99) 265 mg/dL (70-99) 231 mg/dL (70-99) White Blood Count 6.0 x10^3/uL (4.0-11.0) Red Blood Count 3.38 x10^6/uL (4.30-5.70) Hemoglobin 8.3 g/dL (13.0-17.5) Hematocrit 25.4 % (39.0-53.0) Mean Corpuscular Volume 75 fL (79-100) Mean Corpuscular Hemoglobin 25 pg (25-35) Mean Corpuscular Hemoglobin Concent 33 g/dL (31-37) Red Cell Distribution Width 22.0 % (11.5-14.5) Platelet Count 220 x10^3/uL (140-400) Neutrophils (%) (Auto) 67 % (31-73) Lymphocytes (%) (Auto) 18 % (24-48) Monocytes (%) (Auto) 12 % (0-9) Eosinophils (%) (Auto) 2 % (0-3) Basophils (%) (Auto) 1 % (0-3) Neutrophils # (Auto) 4.0 x10^3/uL (1.8-7.7) Lymphocytes # (Auto) 1.1 x10^3/uL (1.0-4.8) Monocytes # (Auto) 0.7 x10^3/uL (0.0-1.1) Eosinophils # (Auto) 0.1 x10^3/uL (0.0-0.7) Basophils # (Auto) 0.1 x10^3/uL (0.0-0.2) Test 11/06/19 11:22 Glucose (Fingerstick) 187 mg/dL (70-99) Microbiology 11/04/19 Blood Culture - Final, Complete 10/30/19 Urine Culture - Final, Complete Vitals/I & O Vital Sign - Last 24 Hours 11/05/19 11/05/19 11/05/19 11/05/19 13:03 15:20 19:00 20:00 Temp 99.2 99.2 99.2 99.2 Pulse 113 111 Resp 16 18 20 B/P (MAP) 135/90 (105) 136/89 (105) 148/98 (115) Pulse Ox 98 94 97 O2 Delivery Room Air Room Air Room Air Room Air 11/05/19 11/06/19 11/06/19 11/06/19 23:00 03:00 07:00 09:00 Temp 99.1 98.8 98.0 99.1 98.8 98.0 Pulse 107 105 108 108 Resp 20 18 20 B/P (MAP) 138/108 (118) 157/90 (112) 149/90 (109) 149/90 Pulse Ox 98 98 100 O2 Delivery Room Air Room Air Room Air Intake and Output 11/05/19 11/05/19 11/06/19 15:00 23:00 07:00 Intake Total 1222 ml 0 ml 400 ml Output Total 550 ml 300 ml Balance 672 ml -300 ml 400 ml Problem List Problems Medical Problems: (1) DKA (diabetic ketoacidoses) Status: Acute (2) Hypokalemia Status: Acute (3) Respiratory failure Status: Acute (4) Severe sepsis Status: Acute (5) Suspected 2019-nCoV infection Status: Acute Assessment Group B step sepsis, source? Swallowing issues--psych? Pancreatic pseudocysts post-biliary pancreatitis. S/p itzel. Microcytic anemia. Prior iron studies c/w ACD. Thalassemia? Plan of Care: Continue current Tx, Mgmt Plan of Care Note Psych eval? Monitor pseudocysts monthly; if do not resolve, will merit consideration of operative drainage. Continue PPI. Justicifation of Admission Dx: Justifications for Admission: Justification of Admission Dx: Yes Comminuty Aquired Pneumonia: Hemodynamic Instability Acute Renal Failure: RF Can't Be Managed Outpt Sepsis: Altered Mental Status DKA: DKA BRIANNE HAYNES MD Nov 06, 2019 12:38
[2019-11-06] MEDS: TPN PER PHARMACY MC PRN (12:48)
--- NOTE | 2019-11-06 12:51 | NUR ---
Pharmacy TPN Dosing Note S: FLORECITAYVONNEFLORECITAANASTACIA is a 49 year old M Currently receiving Central Continuous TPN started 11/01/19 B:Pertinent PMH: NPO, critical illness Height: 5 feet, 7 inches Weight: 94.8 kg Current diet: NPO LABS: Sodium: 144 Potassium: 4.3 Chloride: 111 Calcium: 8.3 Corrected Calcium: 10.14 Magnesium: 1.8 CO2: 26 SCr: 0.7 Glucose: 187-288 Albumin: 1.7 AST: 98 ALT: 86 TPN FORMULA: TPN TYPE: Central Continuous AMINO ACIDS: 75 gm DEXTROSE: 225 gm LIPIDS: 20 gm SODIUM ACETATE: 70 mEq SODIUM PHOSPHATE: 12 mmol POTASSIUM CHLORIDE: 50 mEq MAGNESIUM: 16 mEq CALCIUM: 10 mEq INSULIN: 15 units MULTIPLE VITAMIN: 10 ml TRACE ELEMENTS: 1 ml(s) TPN PLAN: No BMP today Continued elevated blood glucose - insulin increased to 15 units/bag Labs ordered R: Change TPN per plan and ordered formula. Will monitor electrolytes, glucose, and tolerance to TPN. Adamaris Watters [facility], 11/06/19 [id number]
--- NOTE | 2019-11-06 14:55 | NUR ---
SW following. Spoke with RN and reviewed chart. Pt failed his swallow study and is on TPN. Pt on IV abx x3 and has wound care needs. Spoke with pt's mother Elizabeth who is agreeable to referral to [facility]. SW completed Patient Choice of Vendor form. SANDOVAL coordinated care with Faiza from [facility] and requested that she submit for authorization. SW to continue following.
[2019-11-06 15:00] VITALS: BP 142/90
--- NOTE | 2019-11-06 16:26 | NUR ---
Wound Care Wound Type/Assessment: Stage II pressure ulcer to sacrum, pale pink with non-granulation red tissue, klarissa-wound is scar tissue Treatment Recommendations/Plan: Cleansed area and covered with calazime cream as pt is incontinent of liquid stool and foam dressing was saturated. Education provided: Educated pt and of PU prevention tecniques. Offloading surface/device: Pt turned to left side with wedge and heels floated on pillows Recommended Referrals/Tests: none Discharge Recommendations for dressings: Continue as above noted
[2019-11-06] MEDS ORDERED: hydrALAZINE 20 MG/ML VIAL. IVP PRN (17:00)
--- NOTE | 2019-11-06 18:12 | RAD ---
CT HEAD WO CONTRAST History: Reason: AMS, evaluate for stroke / Spl. Comparison: CT January 25, 2014 and MRI Technique: Noncontrast CT imaging was performed of the head. Exposure: One or more of the following individualized dose reduction techniques were utilized for this examination: 1. Automated exposure control 2. Adjustment of the mA and/or kV according to patient size 3. Use of iterative reconstruction technique. Findings: No intracranial hemorrhage. No mass effect. No hydrocephalus. Mild foci of decreased attenuation within the hemispheric white matter, most often due to chronic microvascular ischemia, unchanged. Imaged orbits are unremarkable. Imaged paranasal sinuses and mastoid air cells are clear. No acute calvarial fracture. Impression: 1. No acute intracranial abnormality. 2. Mild nonspecific white matter changes, most often due to chronic microvascular ischemia, unchanged. Electronically signed by: Shamar Raines DO (11/06/2019 6:09 PM) [facility]
[2019-11-06 19:00] VITALS: BP 138/97
--- NOTE | 2019-11-06 19:07 | CONS ---
DATE OF CONSULTATION: 11/06/2019 REFERRING PHYSICIAN: Dr. Melton. REASON FOR CONSULTATION: Evaluate for stroke. HISTORY OF PRESENT ILLNESS: The patient is a 49-year-old man admitted 10/30/2019 to [facility]. He was brought to the Emergency Room because of mental status change and shaking episode with possible seizure. He was found to have respiratory distress, elevated blood sugars and hypotension. He has had a prolonged hospital course. He was treated for diabetic ketoacidosis and possible sepsis. He had had a recent laparoscopic cholecystectomy. He had not been eating well. He was hypokalemic. He required intubation and ventilation, finally being extubated on 11/04/2019. His family and nurses were concerned that there was ____ at his left face and possibly he might have had a stroke. PAST MEDICAL HISTORY: 1. Anxiety disorder. 2. Bipolar disorder. 3. Depression. 4. Diabetes type 2. 5. Hypertension. 6. Chronic back pain. 7. Cholecystectomy. 8. Knee replacement. 9. Cardiac catheterization. 10. Skin cancer resection. 11. Left knee scope. 12. History of methicillin-resistant Staph aureus. 13. History of pancreatitis. ALLERGIES: DAPTOMYCIN AND KETAMINE. CURRENT MEDICATIONS: TPN, lisinopril 5 mg, potassium chloride 20 mEq, pantoprazole 40 mg, nystatin, lithium carbonate 300 mg twice per day, doxepin 300 mg at night, probiotics, tizanidine 4 mg every 8 hours as needed, Tylenol as needed, clonazepam 1 mg as needed, Colace 100 mg as needed, albuterol by nebulizer as needed, linezolid every 12 hours intravenous, micafungin 100 mg every 24 hours, insulins, meropenem 500 mg every 6 hours. FAMILY HISTORY: Hypertension and diabetes. SOCIAL HISTORY: He does not smoke tobacco, drink alcohol or use recreational drugs. REVIEW OF SYSTEMS: He is a limited historian. He does not complain of pain. He feels weak. He was generally slow with his cognition. He is edentulous. PHYSICAL EXAMINATION: VITAL SIGNS: The blood pressure was 142/90, pulse 101, respirations 18, temperature 97.4 degrees Fahrenheit. Oximetry was 97% on room air. His weight was 94.8 kilograms, height 67 inches with a calculated body mass index of 32.7. GENERAL: He was alert, awake and cooperative. Generally, he was slow to respond. His processing appeared extremely slow. He was hard of hearing. He appeared well groomed and well nourished. He was oriented to place and year, but not month. NEUROLOGIC: Examination of the cranial nerves revealed visual baig were full to confrontation. Extraocular movements were intact. The eyes were conjugate. Pursuit movements were smooth and saccadic eye movements were without dysmetria. Pupils are 3 mm. Facial sensation was intact bilaterally. Muscles of mastication appeared symmetrically powerful. Muscles of facial expression with smile revealed that he smiled well to the left, but there was a delay of initiation on the right. Eye closure was powerful bilaterally. Hearing was intact to finger rub. The palate arched symmetrically and the tongue was midline. Sternocleidomastoid and trapezius were powerful bilaterally. There was no nuchal rigidity. Muscle bulk was symmetric. Tone was not spastic or rigid. Power in the upper extremities was symmetric, but slightly weakened bilaterally. In the lower extremities, he was quite weak, having difficulty even raising his leg off the bed. Hip, knee and dorsi and plantar flexion were weak. Reflexes were 1/4 in the upper extremities, absent in knees and ankles. Toes were downgoing. Coordination testing with [id number] was slow, but without ataxia. Fine motor was slow, but fairly symmetric. He could not do [id number] due to weakness. Sensory exam revealed sensory shading in his legs to pain, cold thermal and vibration. Sensation was well perceived in the upper extremities to pain, light touch, proprioception, graphesthesia to cold thermal and vibration. He could not get the concept of graphesthesia. Gait was not testable. NECK: Auscultation of the carotid arteries did not reveal a bruit. HEART: Rhythm was regular without a murmur. EXTREMITIES: Peripheral pulses were symmetric. There was edema in the hands and the feet. There was no cyanosis. LABORATORY RESULTS: CBC was performed 11/06/2019 revealing a normal white blood cell count. Hemoglobin was low at 8.3, hematocrit 25.4 and platelet count was up to 220. Chemistries revealed normal sodium and potassium on 11/05/2019. Chloride was elevated at 111. BUN was 20 and creatinine 0.8 with a GFR that calculated at 102.3. Glucose was elevated to 265. Calcium was low at 8.3 with phosphorus and magnesium normal. Liver enzymes were elevated. Total protein was low at 5.7, albumin at 1.7. Serology revealed coronavirus was not detected on 10/30/2019. He had a small amount of acetone on 10/30/2019. Urinalysis performed on the revealed 6-10 red cells and 11-20 white cells with occasional squamous epithelial cells. PT/INR measured on 10/30/2019 was elevated to 5.3, is down to 1.4 on 11/01/2019. IMPRESSION: The patient is a 49-year-old man who appears encephalopathic. It is possible he may have had a stroke with delay of initiation of right smile. He is generally weak. I will reevaluate. We will obtain a CT scan of head. Dictation Ends Here SUNITHA MCKOY MD DR: CAROLYN/ritesh JOB#: [id number] / [id number] VIJAYA Rodrigez MD
[2019-11-06] MEDS: DOXEPIN 150 MG PO SCH (20:52)
[2019-11-06] MEDS ORDERED: TOTAL PARENTERAL NUTRITION IV SCH ×11 (22:00)
[2019-11-06] MEDS ORDERED: DEXTROSE 70% IV SCH ×11 (22:00)
[2019-11-06] MEDS ORDERED: AMINO ACID IV SCH ×11 (22:00)
[2019-11-06] MEDS ORDERED: [UNRECOGNIZED DRUG - OTHER] IV SCH ×11 (22:00)
[2019-11-06 23:00] VITALS: BP 160/103
[2019-11-07] MEDS: MEROPENEM 500 MG in IV NORMAL SALINE 50ML 50 ML IV SCH ×4 (00:35→18:26)
[2019-11-07] MEDS: INSULIN LISPRO 300 UNITS/3 ML VIAL. SQ SCH ×4 (00:42→18:00)
[2019-11-07 03:00] VITALS: BP 123/95
[2019-11-07 05:35] LABS: BASO # 0.1 x10^3/uL (0.0-0.2); BASO % 1 % (0-3); EOS # 0.2 x10^3/uL (0.0-0.7); EOS % 3 % (0-3); HEMATOCRIT 27.5 % (39.0-53.0); HEMOGLOBIN 8.7 g/dL (13.0-17.5); LYMPH # 1.1 x10^3/uL (1.0-4.8); LYMPH % 17 % (24-48); MEAN CORPUSCULAR HEMOGLOBIN 24 pg (25-35); MEAN CORPUSCULAR HGB CONC 32 g/dL (31-37); MEAN CORPUSCULAR VOLUME 76 fL (79-100); MONO # 0.8 x10^3/uL (0.0-1.1); MONO % 12 % (0-9); NEUT # 4.4 x10^3/uL (1.8-7.7); NEUT % 68 % (31-73); PLATELET COUNT 363 x10^3/uL (140-400); RED CELL DISTRIBUTION WIDTH 22.5 % (11.5-14.5); WHITE BLOOD COUNT 6.5 x10^3/uL (4.0-11.0)
[2019-11-07 05:44] LABS: ALBUMIN/GLOBULIN RATIO 0.5 (1.0-1.7); CALCIUM 8.4 mg/dL (8.5-10.1); CREATININE 0.9 mg/dL (0.7-1.3); GFR 89.3; MAGNESIUM 2.1 mg/dL (1.8-2.4); POTASSIUM 4.5 mmol/L (3.5-5.1); TOTAL BILIRUBIN 0.4 mg/dL (0.2-1.0); TOTAL PROTEIN 5.8 g/dL (6.4-8.2)
[2019-11-07] MEDS: PANTOPRAZOLE 40 MG TABLET.DR. PO SCH (07:30)
[2019-11-07 07:56] VITALS: BP 174/111
[2019-11-07] MEDS: POTASSIUM CHLORIDE 20 MEQ TABLET.ER. PO SCH (08:00)
[2019-11-07] MEDS: LISINOPRIL 5 MG TABLET. PO SCH (08:06)
[2019-11-07] MEDS: LITHIUM CARBONATE ER 300 MG TABLET.ER PO SCH ×2 (08:06→20:52)
[2019-11-07] MEDS: LACTOBACILLUS RHAMNOSUS GG 1 CAPSULE. PO SCH ×2 (08:06→20:52)
[2019-11-07] MEDS: MICAFUNGIN 100 MG in IV DEXTROSE 5% 100ML 100 ML IV SCH (08:19)
--- NOTE | 2019-11-07 08:46 | PDOC ---
Infectious Disease Note Subjective Subjective Doing better Not Hungry. No pain No F/C/S/N/V/rash + BM ROS ROS o/w neg Vital Sign Vital Signs Vital Signs Date Time Temp Pulse Resp B/P (MAP) Pulse Ox O2 Delivery O2 Flow Rate FiO2 11/07/19 07:56 98.6 105 18 174/111 (132) 100 Room Air 98.6 Physical Exam PHYSICAL EXAM GENERAL: Alert, in bed. NAD HEENT: Normocephalic, atraumatic, nml conj. OC/Op -clear NECK: Supple, no lymphadenopathy, no thyromegaly. LUNGS: Decreased breath sounds at the bases, otherwise, clear. HEART: S1, S2, tachycardia. No murmurs. ABDOMEN: Soft, nontender.Obese EXTREMITIES: No cyanosis, no clubbing, mild generalized edema. MUSCULOSKELETAL: Previous left knee surgery. Incision scar intact. No effusion. No surrounding erythema, no fluctuance. DERMATOLOGIC: Warm, dry. No generalized rash. NEUROLOGIC: Cooperative. Alert, oriented x3 Labs Lab Laboratory Tests Test 11/06/19 11:22 11/06/19 18:36 11/07/19 04:15 11/07/19 06:12 Glucose (Fingerstick) 187 mg/dL (70-99) 156 mg/dL (70-99) 226 mg/dL (70-99) White Blood Count 6.5 x10^3/uL (4.0-11.0) Red Blood Count 3.60 x10^6/uL (4.30-5.70) Hemoglobin 8.7 g/dL (13.0-17.5) Hematocrit 27.5 % (39.0-53.0) Mean Corpuscular Volume 76 fL (79-100) Mean Corpuscular Hemoglobin 24 pg (25-35) Mean Corpuscular Hemoglobin Concent 32 g/dL (31-37) Red Cell Distribution Width 22.5 % (11.5-14.5) Platelet Count 363 x10^3/uL (140-400) Neutrophils (%) (Auto) 68 % (31-73) Lymphocytes (%) (Auto) 17 % (24-48) Monocytes (%) (Auto) 12 % (0-9) Eosinophils (%) (Auto) 3 % (0-3) Basophils (%) (Auto) 1 % (0-3) Neutrophils # (Auto) 4.4 x10^3/uL (1.8-7.7) Lymphocytes # (Auto) 1.1 x10^3/uL (1.0-4.8) Monocytes # (Auto) 0.8 x10^3/uL (0.0-1.1) Eosinophils # (Auto) 0.2 x10^3/uL (0.0-0.7) Basophils # (Auto) 0.1 x10^3/uL (0.0-0.2) Sodium Level 142 mmol/L (136-145) Potassium Level 4.5 mmol/L (3.5-5.1) Chloride Level 109 mmol/L (98-107) Carbon Dioxide Level 21 mmol/L (21-32) Anion Gap 12 (6-14) Blood Urea Nitrogen 20 mg/dL (8-26) Creatinine 0.9 mg/dL (0.7-1.3) Estimated GFR (Cockcroft-Gault) 89.3 BUN/Creatinine Ratio 22 (6-20) Glucose Level 222 mg/dL (70-99) Calcium Level 8.4 mg/dL (8.5-10.1) Phosphorus Level 4.0 mg/dL (2.6-4.7) Magnesium Level 2.1 mg/dL (1.8-2.4) Total Bilirubin 0.4 mg/dL (0.2-1.0) Aspartate Amino Transf (AST/SGOT) 83 U/L (15-37) Alanine Aminotransferase (ALT/SGPT) 121 U/L (16-63) Alkaline Phosphatase 196 U/L (46-116) Total Protein 5.8 g/dL (6.4-8.2) Albumin 2.0 g/dL (3.4-5.0) Albumin/Globulin Ratio 0.5 (1.0-1.7) Micro CT head 11/05 Impression: 1. No acute intracranial abnormality. 2. Mild nonspecific white matter changes, most often due to chronic microvascular ischemia, unchanged. Microbiology 11/04/19 Blood Culture - Preliminary, Resulted NO GROWTH AFTER 1 DAY 10/30/19 Urine Culture - Final, Complete Objective Assessment Fever - resolved- could be from underlying pancreatic pseudocyst Septic shock POA from strep group B bacteremia better Group B strep bacteremia 10/29 POA source likely GI - repeat Blood cult 11/01 and 11/03 neg Blood cultures 10/31 staph hemolyticus possible contaminant 1/2 Encephalopathy present on admission - -Neuro eval 11/05 [facility] eval reviewed - better today knows year and place Acute respiratory failure status post intubation in the ED, - extubated Pneumothorax stable Diabetic ketoacidosis. Acute kidney injury with underlying CKD.- better Coagulopathy. Status post vitamin K Nausea and vomiting, chronically since last surgery with gallbladder. GI bleed Recent Pancreatitis, status post laparoscopic cholecystectomy on 09/14/2019.;now with pseudocyst/fluid collection Weight loss due to poor p.o. 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 Currently well healed. Hypertension. Bipolar disorder. Anemia Thrombocytopenia High BNP and troponin leak Intolerance to Daptomycin with nausea, tolerated it twice for weeks in the past Last year. on chronic suppressive clindamycin Plan Plan of Care Continue meropenem 10/31 Started linezolid 11/03 and micafungin 11/03 DC Daptomycin 11/03 (allergy) f/u repeat blood culture Pulmonary ,hematology GI team following/Neurology Monitor labs Continue supportive care. Will need to restart prophylactic abx at discharge Discussed with nursing staff and family VELIA NATH MD Nov 07, 2019 08:46
[2019-11-07] MEDS: NYSTATIN TOPICAL POWDER 15GM BOTTLE. TP SCH ×2 (09:22→22:01)
[2019-11-07] MEDS: INSULIN GLARGINE SYRINGE. SQ SCH ×2 (09:38→22:13)
--- NOTE | 2019-11-07 09:41 | PDOC ---
[facility] PROGRESS NOTE Chief Complaint Chief Complaint Sepsis respiratory failure DKA Bacteremia, gram-positive cocci, 1/3 bottles. Recent laparoscopic cholecystectomy about 6 weeks ago Acute on chronic kidney injury. hypophosphatemia Elevated INR, likely secondary to DIC DM2 Small moderate left pneumothorax, incompletely evaluated. Interval development of a 6.3 cm pseudocyst along the pancreatic body. Another 6 cm fluid collection along the medial aspect of the hepatic caudate lobe also likely reflects a pseudocyst. Right colonic wall thickening. Correlate for colitis. rim calcified 10 mm mass along the left kidney medially may be a complicated cyst but is indeterminate. Sonographic follow-up could be performed in 6 months. severe protein-caloric malnutrition History of Present Illness History of Present Illness 11/07/2019 Patient seen and examined Resting in bed Strange BSD Discussed with RN and patient's mother Chart reviewed 11/06/2019 Patient seen and examined Resting in bed Discussed with RN and patient's mother Chart reviewed 11/04/2019 Patient seen and examined in ICU Strange BSD NG tube intermittent suction remains critically ill Discussed with RN and patient's mother Chart reviewed Vitals/I&O Vitals/I&O: Vital Signs Date Time Temp Pulse Resp B/P (MAP) Pulse Ox O2 Delivery O2 Flow Rate FiO2 11/07/19 07:56 98.6 105 18 174/111 (132) 100 Room Air 98.6 I & O 11/06/19 11/06/19 11/07/19 15:00 23:00 07:00 Intake Total 0 ml 0 ml Output Total 550 ml 175 ml Balance -550 ml -175 ml 0 ml Physical Exam Physical Exam: GENERAL: Alert, in bed. NAD HEENT: Normocephalic, atraumatic, nml conj. OC/Op -clear NECK: Supple, no lymphadenopathy, no thyromegaly. LUNGS: Decreased breath sounds at the bases, otherwise, clear. HEART: S1, S2, tachycardia. No murmurs. ABDOMEN: Soft, nontender.Obese EXTREMITIES: No cyanosis, no clubbing, mild generalized edema. MUSCULOSKELETAL: Previous left knee surgery. Incision scar intact. No effusion. No surrounding erythema, no fluctuance. DERMATOLOGIC: Warm, dry. No generalized rash. NEUROLOGIC: Cooperative. Alert, oriented x3 General: Alert, Cooperative, No acute distress Heart: Normal S1, Normal S2 Lungs: Clear Abdomen: Soft, No tenderness Extremities: Other (Mild generalized edema) Skin: No rashes, No significant lesion Labs Labs: Laboratory Tests Test 11/06/19 11:22 11/06/19 18:36 11/07/19 04:15 11/07/19 06:12 Glucose (Fingerstick) 187 mg/dL (70-99) 156 mg/dL (70-99) 226 mg/dL (70-99) White Blood Count 6.5 x10^3/uL (4.0-11.0) Red Blood Count 3.60 x10^6/uL (4.30-5.70) Hemoglobin 8.7 g/dL (13.0-17.5) Hematocrit 27.5 % (39.0-53.0) Mean Corpuscular Volume 76 fL (79-100) Mean Corpuscular Hemoglobin 24 pg (25-35) Mean Corpuscular Hemoglobin Concent 32 g/dL (31-37) Red Cell Distribution Width 22.5 % (11.5-14.5) Platelet Count 363 x10^3/uL (140-400) Neutrophils (%) (Auto) 68 % (31-73) Lymphocytes (%) (Auto) 17 % (24-48) Monocytes (%) (Auto) 12 % (0-9) Eosinophils (%) (Auto) 3 % (0-3) Basophils (%) (Auto) 1 % (0-3) Neutrophils # (Auto) 4.4 x10^3/uL (1.8-7.7) Lymphocytes # (Auto) 1.1 x10^3/uL (1.0-4.8) Monocytes # (Auto) 0.8 x10^3/uL (0.0-1.1) Eosinophils # (Auto) 0.2 x10^3/uL (0.0-0.7) Basophils # (Auto) 0.1 x10^3/uL (0.0-0.2) Sodium Level 142 mmol/L (136-145) Potassium Level 4.5 mmol/L (3.5-5.1) Chloride Level 109 mmol/L (98-107) Carbon Dioxide Level 21 mmol/L (21-32) Anion Gap 12 (6-14) Blood Urea Nitrogen 20 mg/dL (8-26) Creatinine 0.9 mg/dL (0.7-1.3) Estimated GFR (Cockcroft-Gault) 89.3 BUN/Creatinine Ratio 22 (6-20) Glucose Level 222 mg/dL (70-99) Calcium Level 8.4 mg/dL (8.5-10.1) Phosphorus Level 4.0 mg/dL (2.6-4.7) Magnesium Level 2.1 mg/dL (1.8-2.4) Total Bilirubin 0.4 mg/dL (0.2-1.0) Aspartate Amino Transf (AST/SGOT) 83 U/L (15-37) Alanine Aminotransferase (ALT/SGPT) 121 U/L (16-63) Alkaline Phosphatase 196 U/L (46-116) Total Protein 5.8 g/dL (6.4-8.2) Albumin 2.0 g/dL (3.4-5.0) Albumin/Globulin Ratio 0.5 (1.0-1.7) Review of Systems Review of Systems: Pertinent as per HPI otherwise 10 point review of system is negative Assessment and Plan Assessmemt and Plan Problems Medical Problems: (1) DKA (diabetic ketoacidoses) Status: Acute (2) Hypokalemia Status: Acute (3) Respiratory failure Status: Acute (4) Severe sepsis Status: Acute (5) Suspected 2019-nCoV infection Status: Acute ASSESSMENT Sepsis respiratory failure DKA Bacteremia, gram-positive cocci, 1/3 bottles. Recent laparoscopic cholecystectomy about 6 weeks ago Acute on chronic kidney injury. hypophosphatemia Elevated INR, likely secondary to DIC DM2 Small moderate left pneumothorax, incompletely evaluated. Interval development of a 6.3 cm pseudocyst along the pancreatic body. Another 6 cm fluid collection along the medial aspect of the hepatic caudate lobe also likely reflects a pseudocyst. Right colonic wall thickening. Correlate for colitis. rim calcified 10 mm mass along the left kidney medially may be a complicated cyst but is indeterminate. Sonographic follow-up could be performed in 6 months. severe protein-caloric malnutrition PLAN Continue IV antibiotics per ID PT/OT Speech therapy TPN Wound care Trend labs DVT prophylaxis Full Code Comment Review of Relevant I have reviewed the following items blaze (where applicable) has been applied. Medications: Current Medications Medications (Trade) Dose Ordered Sig/Edilma Route PRN Reason Start Time Stop Time Status Last Admin Dose Admin Sodium Acetate 70 meq/Sodium Phosphate 12 mmol/ Potassium Chloride 50 meq/ Magnesium Sulfate 16 meq/Calcium Gluconate 10 meq/ Multivitamins 10 ml/Chromium/ Copper/Manganese/ Seleni/Zn 1 ml/ Insulin Human Regular 15 unit/ Total Parenteral Nutrition/Amino Acids/Dextrose/ Fat Emulsion Intravenous 1,800 ml @ 75 mls/hr TPN CONT IV 11/06/19 22:00 11/07/19 21:59 11/07/19 05:55 Justicifation of Admission Dx: Justifications for Admission: Justification of Admission Dx: Yes Comminuty Aquired Pneumonia: Hemodynamic Instability Acute Renal Failure: RF Can't Be Managed Outpt Sepsis: Altered Mental Status DKA: DKA VISHAL KATZ III DO Nov 07, 2019 09:41
[2019-11-07 11:00] VITALS: BP 152/109
--- NOTE | 2019-11-07 11:43 | PDOC ---
PULMONARY PROGRESS NOTES Subjective extubated 11/03 doing well ,on RA Vitals Vital Signs Date Time Temp Pulse Resp B/P (MAP) Pulse Ox O2 Delivery O2 Flow Rate FiO2 11/07/19 07:56 98.6 105 18 174/111 (132) 100 Room Air 98.6 General: Alert, No acute distress Lungs: Clear Cardiovascular: S1 Abdomen: Soft, Other Extremities: No Edema Skin: Warm Labs Laboratory Tests Test 11/05/19 11:44 11/05/19 18:25 11/06/19 00:20 11/06/19 03:40 Glucose (Fingerstick) 288 mg/dL (70-99) 257 mg/dL (70-99) 265 mg/dL (70-99) White Blood Count 6.0 x10^3/uL (4.0-11.0) Red Blood Count 3.38 x10^6/uL (4.30-5.70) Hemoglobin 8.3 g/dL (13.0-17.5) Hematocrit 25.4 % (39.0-53.0) Mean Corpuscular Volume 75 fL (79-100) Mean Corpuscular Hemoglobin 25 pg (25-35) Mean Corpuscular Hemoglobin Concent 33 g/dL (31-37) Red Cell Distribution Width 22.0 % (11.5-14.5) Platelet Count 220 x10^3/uL (140-400) Neutrophils (%) (Auto) 67 % (31-73) Lymphocytes (%) (Auto) 18 % (24-48) Monocytes (%) (Auto) 12 % (0-9) Eosinophils (%) (Auto) 2 % (0-3) Basophils (%) (Auto) 1 % (0-3) Neutrophils # (Auto) 4.0 x10^3/uL (1.8-7.7) Lymphocytes # (Auto) 1.1 x10^3/uL (1.0-4.8) Monocytes # (Auto) 0.7 x10^3/uL (0.0-1.1) Eosinophils # (Auto) 0.1 x10^3/uL (0.0-0.7) Basophils # (Auto) 0.1 x10^3/uL (0.0-0.2) Test 11/06/19 05:25 11/06/19 11:22 11/06/19 18:36 11/07/19 04:15 Glucose (Fingerstick) 231 mg/dL (70-99) 187 mg/dL (70-99) 156 mg/dL (70-99) White Blood Count 6.5 x10^3/uL (4.0-11.0) Red Blood Count 3.60 x10^6/uL (4.30-5.70) Hemoglobin 8.7 g/dL (13.0-17.5) Hematocrit 27.5 % (39.0-53.0) Mean Corpuscular Volume 76 fL (79-100) Mean Corpuscular Hemoglobin 24 pg (25-35) Mean Corpuscular Hemoglobin Concent 32 g/dL (31-37) Red Cell Distribution Width 22.5 % (11.5-14.5) Platelet Count 363 x10^3/uL (140-400) Neutrophils (%) (Auto) 68 % (31-73) Lymphocytes (%) (Auto) 17 % (24-48) Monocytes (%) (Auto) 12 % (0-9) Eosinophils (%) (Auto) 3 % (0-3) Basophils (%) (Auto) 1 % (0-3) Neutrophils # (Auto) 4.4 x10^3/uL (1.8-7.7) Lymphocytes # (Auto) 1.1 x10^3/uL (1.0-4.8) Monocytes # (Auto) 0.8 x10^3/uL (0.0-1.1) Eosinophils # (Auto) 0.2 x10^3/uL (0.0-0.7) Basophils # (Auto) 0.1 x10^3/uL (0.0-0.2) Sodium Level 142 mmol/L (136-145) Potassium Level 4.5 mmol/L (3.5-5.1) Chloride Level 109 mmol/L (98-107) Carbon Dioxide Level 21 mmol/L (21-32) Anion Gap 12 (6-14) Blood Urea Nitrogen 20 mg/dL (8-26) Creatinine 0.9 mg/dL (0.7-1.3) Estimated GFR (Cockcroft-Gault) 89.3 BUN/Creatinine Ratio 22 (6-20) Glucose Level 222 mg/dL (70-99) Calcium Level 8.4 mg/dL (8.5-10.1) Phosphorus Level 4.0 mg/dL (2.6-4.7) Magnesium Level 2.1 mg/dL (1.8-2.4) Total Bilirubin 0.4 mg/dL (0.2-1.0) Aspartate Amino Transf (AST/SGOT) 83 U/L (15-37) Alanine Aminotransferase (ALT/SGPT) 121 U/L (16-63) Alkaline Phosphatase 196 U/L (46-116) Total Protein 5.8 g/dL (6.4-8.2) Albumin 2.0 g/dL (3.4-5.0) Albumin/Globulin Ratio 0.5 (1.0-1.7) Test 11/07/19 06:12 11/07/19 11:37 Glucose (Fingerstick) 226 mg/dL (70-99) 189 mg/dL (70-99) Laboratory Tests Test 11/06/19 18:36 11/07/19 04:15 11/07/19 06:12 11/07/19 11:37 Glucose (Fingerstick) 156 mg/dL (70-99) 226 mg/dL (70-99) 189 mg/dL (70-99) White Blood Count 6.5 x10^3/uL (4.0-11.0) Red Blood Count 3.60 x10^6/uL (4.30-5.70) Hemoglobin 8.7 g/dL (13.0-17.5) Hematocrit 27.5 % (39.0-53.0) Mean Corpuscular Volume 76 fL (79-100) Mean Corpuscular Hemoglobin 24 pg (25-35) Mean Corpuscular Hemoglobin Concent 32 g/dL (31-37) Red Cell Distribution Width 22.5 % (11.5-14.5) Platelet Count 363 x10^3/uL (140-400) Neutrophils (%) (Auto) 68 % (31-73) Lymphocytes (%) (Auto) 17 % (24-48) Monocytes (%) (Auto) 12 % (0-9) Eosinophils (%) (Auto) 3 % (0-3) Basophils (%) (Auto) 1 % (0-3) Neutrophils # (Auto) 4.4 x10^3/uL (1.8-7.7) Lymphocytes # (Auto) 1.1 x10^3/uL (1.0-4.8) Monocytes # (Auto) 0.8 x10^3/uL (0.0-1.1) Eosinophils # (Auto) 0.2 x10^3/uL (0.0-0.7) Basophils # (Auto) 0.1 x10^3/uL (0.0-0.2) Sodium Level 142 mmol/L (136-145) Potassium Level 4.5 mmol/L (3.5-5.1) Chloride Level 109 mmol/L (98-107) Carbon Dioxide Level 21 mmol/L (21-32) Anion Gap 12 (6-14) Blood Urea Nitrogen 20 mg/dL (8-26) Creatinine 0.9 mg/dL (0.7-1.3) Estimated GFR (Cockcroft-Gault) 89.3 BUN/Creatinine Ratio 22 (6-20) Glucose Level 222 mg/dL (70-99) Calcium Level 8.4 mg/dL (8.5-10.1) Phosphorus Level 4.0 mg/dL (2.6-4.7) Magnesium Level 2.1 mg/dL (1.8-2.4) Total Bilirubin 0.4 mg/dL (0.2-1.0) Aspartate Amino Transf (AST/SGOT) 83 U/L (15-37) Alanine Aminotransferase (ALT/SGPT) 121 U/L (16-63) Alkaline Phosphatase 196 U/L (46-116) Total Protein 5.8 g/dL (6.4-8.2) Albumin 2.0 g/dL (3.4-5.0) Albumin/Globulin Ratio 0.5 (1.0-1.7) Medications Active Scripts Medications Dose Route/Sig Max Daily Dose Days Date Category Dose Instructions Humalog (Insulin Lispro) 100 Unit/1 Ml Insuln.pen 0 Units SQ QIDACHS 14 09/16/19 Rx Culturelle (Lactobacillus Rhamnosus Gg) 1 Each Cap.sprink 1 Cap PO BID 30 09/16/19 Rx Pantoprazole Sodium (Pantoprazole Sodium) 40 Mg Tablet.dr 40 Mg PO DAILYAC 09/16/19 Rx Dok (Docusate Sodium) 100 Mg Capsule 100 Mg PO PRN BID PRN 30 09/16/19 Rx Klor-Con M20 (Potassium Chloride) 20 Meq Tab.er.prt 20 Meq PO DAILYWBKFT 14 09/16/19 Rx Proair Hfa (Albuterol Sulfate) 8.5 Gm Hfa.aer.ad 2.5 Mg NEB PRN Q4HRS PRN 14 09/16/19 Rx Clindamycin Hcl 300 Mg Capsule 600 Mg PO BID 09/11/19 Reported Lidocaine PATCH (Lidocaine) 1 Each Adh..patch 1 Each TP DAILY 03/12/19 Reported REMOVE AFTER 12 HOURS Lisinopril 5 Mg Tablet 1 Tab PO DAILY PRN 03/12/19 Reported Clonazepam 1 Mg Tablet 1 Mg PO BID 03/12/19 Reported Clover Carbonate 300 Mg Tablet 1 Tab PO BID 08/08/18 Reported Zanaflex (Tizanidine Hcl) 4 Mg Capsule 1 Cap PO TID PRN 08/25/15 Reported Janumet 50-1,000 Mg Tablet (Sitagliptin Phos/Metformin Hcl) 1 Each Tablet 1 Tab PO BID 01/17/15 Reported Doxepin Hcl 50 Mg Capsule 300 Mg PO HS 01/17/15 Reported Comments cxr 10/31 reviewed. no ptx BLOOD CULTURE LC Final Final GRAM POSITIVE COCCI FINAL ID= [STAPHYLOCOCCUS HAEMOLYTICUS MR] STAPHYLOCOCCUS HAEMOLYTICUS MR ANTIMICROBIAL SUSCEPTIBILITY Final Comment POS [place] TYPE 38 STAPHYLOCOCCUS HAEMOLYTICUS MR ANTIBIOTIC RESULT INTERPRETATION AZITHROMYCIN >4 R CLINDAMYCIN >4 R CIPROFLOXACIN >2 R DAPTOMYCIN <=0.5 S ERYTHROMYCIN >4 R GENTAMICIN >8 R LINEZOLID <=1 S LEVOFLOXACIN >4 R OXACILLIN >2 R PENICILLIN >2 R RIFAMPIN <=1 S TRIMETHOPRIM/SULFAMETHOXAZOLE >2/38 R TETRACYCLINE >8 R VANCOMYCIN 1 S Unless otherwise specified, Testing Performed by: [address] [address] For Inquires, the Physician may contact the Microbiology department at [phone] Impression . IMPRESSION: 1. Acute hypoxemic respiratory failure secondary to acute metabolic acidosis. extubated 11/03 2. Diabetic ketoacidosis. resolved 3. Septic shock.resolved 4. Bacteremia, gram-positive cocci, / bottles. FINAL ID= [STAPHYLOCOCCUS HAEMOLYTICUS MR] 5. Recent laparoscopic cholecystectomy. 6. Acute on chronic kidney injury. 7. COVID-19, suspect. 8. Tobacco dependent. 9. Chronic obstructive pulmonary disease, unknown FEV1. 10. Small left-sided pneumo small seen on ct abd, not seen on f/u cxr 10/31 11. New pseudocyst fluid collection, seen on CT abdomen, per GI. CT abdomen pelvis IMPRESSION: 1. Small moderate left pneumothorax, incompletely evaluated. 2. Interval development of a 6.3 cm pseudocyst along the pancreatic body. 3. Another 6 cm fluid collection along the medial aspect of the hepatic caudate lobe also likely reflects a pseudocyst. 4. Right colonic wall thickening. Correlate for colitis. 5. A rim calcified 10 mm mass along the left kidney medially may be a complicated cyst but is indeterminate. Sonographic follow-up could be performed in 6 months. Plan . Spoke with at bedside Doing well since extubated on RA PT/OT/ SPEECH to follow Follow GI input antibiotics per ID Monitor blood sugars Monitor H&H 10/31 chest x-ray shows no pneumothorax stable pulmonary status. will see HAMMAD VASQUEZ MD Nov 07, 2019 11:43
--- NOTE | 2019-11-07 12:14 | PDOC ---
G I PROGRESS NOTE Subjective Still seems encephalopathic, though marginally more with it. Not swallowing reliably; needs prompting from Mom. Does have some voluntary swallows though occasionally drooling oral secretion. Physical Exam Lungs clear. RRR Abdomen soft, not distended. Review of Relevant I have reviewed the following items blaze (where applicable) has been applied. Labs Laboratory Tests Test 11/05/19 18:25 11/06/19 00:20 11/06/19 03:40 11/06/19 05:25 Glucose (Fingerstick) 257 mg/dL (70-99) 265 mg/dL (70-99) 231 mg/dL (70-99) White Blood Count 6.0 x10^3/uL (4.0-11.0) Red Blood Count 3.38 x10^6/uL (4.30-5.70) Hemoglobin 8.3 g/dL (13.0-17.5) Hematocrit 25.4 % (39.0-53.0) Mean Corpuscular Volume 75 fL (79-100) Mean Corpuscular Hemoglobin 25 pg (25-35) Mean Corpuscular Hemoglobin Concent 33 g/dL (31-37) Red Cell Distribution Width 22.0 % (11.5-14.5) Platelet Count 220 x10^3/uL (140-400) Neutrophils (%) (Auto) 67 % (31-73) Lymphocytes (%) (Auto) 18 % (24-48) Monocytes (%) (Auto) 12 % (0-9) Eosinophils (%) (Auto) 2 % (0-3) Basophils (%) (Auto) 1 % (0-3) Neutrophils # (Auto) 4.0 x10^3/uL (1.8-7.7) Lymphocytes # (Auto) 1.1 x10^3/uL (1.0-4.8) Monocytes # (Auto) 0.7 x10^3/uL (0.0-1.1) Eosinophils # (Auto) 0.1 x10^3/uL (0.0-0.7) Basophils # (Auto) 0.1 x10^3/uL (0.0-0.2) Test 11/06/19 11:22 11/06/19 18:36 11/07/19 04:15 11/07/19 06:12 Glucose (Fingerstick) 187 mg/dL (70-99) 156 mg/dL (70-99) 226 mg/dL (70-99) White Blood Count 6.5 x10^3/uL (4.0-11.0) Red Blood Count 3.60 x10^6/uL (4.30-5.70) Hemoglobin 8.7 g/dL (13.0-17.5) Hematocrit 27.5 % (39.0-53.0) Mean Corpuscular Volume 76 fL (79-100) Mean Corpuscular Hemoglobin 24 pg (25-35) Mean Corpuscular Hemoglobin Concent 32 g/dL (31-37) Red Cell Distribution Width 22.5 % (11.5-14.5) Platelet Count 363 x10^3/uL (140-400) Neutrophils (%) (Auto) 68 % (31-73) Lymphocytes (%) (Auto) 17 % (24-48) Monocytes (%) (Auto) 12 % (0-9) Eosinophils (%) (Auto) 3 % (0-3) Basophils (%) (Auto) 1 % (0-3) Neutrophils # (Auto) 4.4 x10^3/uL (1.8-7.7) Lymphocytes # (Auto) 1.1 x10^3/uL (1.0-4.8) Monocytes # (Auto) 0.8 x10^3/uL (0.0-1.1) Eosinophils # (Auto) 0.2 x10^3/uL (0.0-0.7) Basophils # (Auto) 0.1 x10^3/uL (0.0-0.2) Sodium Level 142 mmol/L (136-145) Potassium Level 4.5 mmol/L (3.5-5.1) Chloride Level 109 mmol/L (98-107) Carbon Dioxide Level 21 mmol/L (21-32) Anion Gap 12 (6-14) Blood Urea Nitrogen 20 mg/dL (8-26) Creatinine 0.9 mg/dL (0.7-1.3) Estimated GFR (Cockcroft-Gault) 89.3 BUN/Creatinine Ratio 22 (6-20) Glucose Level 222 mg/dL (70-99) Calcium Level 8.4 mg/dL (8.5-10.1) Phosphorus Level 4.0 mg/dL (2.6-4.7) Magnesium Level 2.1 mg/dL (1.8-2.4) Total Bilirubin 0.4 mg/dL (0.2-1.0) Aspartate Amino Transf (AST/SGOT) 83 U/L (15-37) Alanine Aminotransferase (ALT/SGPT) 121 U/L (16-63) Alkaline Phosphatase 196 U/L (46-116) Total Protein 5.8 g/dL (6.4-8.2) Albumin 2.0 g/dL (3.4-5.0) Albumin/Globulin Ratio 0.5 (1.0-1.7) Test 11/07/19 11:37 Glucose (Fingerstick) 189 mg/dL (70-99) Laboratory Tests Test 11/06/19 18:36 11/07/19 04:15 11/07/19 06:12 11/07/19 11:37 Glucose (Fingerstick) 156 mg/dL (70-99) 226 mg/dL (70-99) 189 mg/dL (70-99) White Blood Count 6.5 x10^3/uL (4.0-11.0) Red Blood Count 3.60 x10^6/uL (4.30-5.70) Hemoglobin 8.7 g/dL (13.0-17.5) Hematocrit 27.5 % (39.0-53.0) Mean Corpuscular Volume 76 fL (79-100) Mean Corpuscular Hemoglobin 24 pg (25-35) Mean Corpuscular Hemoglobin Concent 32 g/dL (31-37) Red Cell Distribution Width 22.5 % (11.5-14.5) Platelet Count 363 x10^3/uL (140-400) Neutrophils (%) (Auto) 68 % (31-73) Lymphocytes (%) (Auto) 17 % (24-48) Monocytes (%) (Auto) 12 % (0-9) Eosinophils (%) (Auto) 3 % (0-3) Basophils (%) (Auto) 1 % (0-3) Neutrophils # (Auto) 4.4 x10^3/uL (1.8-7.7) Lymphocytes # (Auto) 1.1 x10^3/uL (1.0-4.8) Monocytes # (Auto) 0.8 x10^3/uL (0.0-1.1) Eosinophils # (Auto) 0.2 x10^3/uL (0.0-0.7) Basophils # (Auto) 0.1 x10^3/uL (0.0-0.2) Sodium Level 142 mmol/L (136-145) Potassium Level 4.5 mmol/L (3.5-5.1) Chloride Level 109 mmol/L (98-107) Carbon Dioxide Level 21 mmol/L (21-32) Anion Gap 12 (6-14) Blood Urea Nitrogen 20 mg/dL (8-26) Creatinine 0.9 mg/dL (0.7-1.3) Estimated GFR (Cockcroft-Gault) 89.3 BUN/Creatinine Ratio 22 (6-20) Glucose Level 222 mg/dL (70-99) Calcium Level 8.4 mg/dL (8.5-10.1) Phosphorus Level 4.0 mg/dL (2.6-4.7) Magnesium Level 2.1 mg/dL (1.8-2.4) Total Bilirubin 0.4 mg/dL (0.2-1.0) Aspartate Amino Transf (AST/SGOT) 83 U/L (15-37) Alanine Aminotransferase (ALT/SGPT) 121 U/L (16-63) Alkaline Phosphatase 196 U/L (46-116) Total Protein 5.8 g/dL (6.4-8.2) Albumin 2.0 g/dL (3.4-5.0) Albumin/Globulin Ratio 0.5 (1.0-1.7) Microbiology 11/04/19 Blood Culture - Preliminary, Resulted 10/30/19 Urine Culture - Final, Complete Vitals/I & O Vital Sign - Last 24 Hours 11/06/19 11/06/19 11/06/19 11/06/19 15:00 19:00 20:00 23:00 Temp 97.4 98.5 97.7 97.4 98.5 97.7 Pulse 101 103 98 Resp 18 20 20 B/P (MAP) 142/90 (107) 138/97 (111) 160/103 (122) Pulse Ox 97 96 100 O2 Delivery Room Air Room Air Room Air Room Air 11/07/19 11/07/1920 03:00 07:56 11:00 Temp 98.5 98.6 98.6 98.5 98.6 98.6 Pulse 101 105 98 Resp 20 18 18 B/P (MAP) 123/95 (104) 174/111 (132) 152/109 (123) Pulse Ox 100 100 100 O2 Delivery Room Air Room Air Room Air Intake and Output 11/06/19 11/06/19 11/07/19 15:00 23:00 07:00 Intake Total 0 ml 0 ml Output Total 550 ml 175 ml Balance -550 ml -175 ml [address] head reviewed. Problem List Problems Medical Problems: (1) DKA (diabetic ketoacidoses) Status: Acute (2) Hypokalemia Status: Acute (3) Respiratory failure Status: Acute (4) Severe sepsis Status: Acute (5) Suspected 2019-nCoV infection Status: Acute Assessment Group B strep bacteremia/sepsis, source? Encephalopathic, neurology following. Plan of Care Note Continue support. Hopefully mental status will improve. Justicifation of Admission Dx: Justifications for Admission: Justification of Admission Dx: Yes Comminuty Aquired Pneumonia: Hemodynamic Instability Acute Renal Failure: RF Can't Be Managed Outpt Sepsis: Altered Mental Status DKA: DKA BRIANNE HAYNES MD Nov 07, 2019 12:14
[2019-11-07] MEDS: TPN PER PHARMACY MC PRN (13:09)
--- NOTE | 2019-11-07 13:15 | NUR ---
Pharmacy TPN Dosing Note S: FLORECITAPATTYANASTACIA is a 49 year old M Currently receiving Central Continuous TPN started 11/01/19 B:Pertinent PMH: NPO, critical illness Height: 5 feet, 7 inches Weight: 94.8 kg Current diet: NPO LABS: Sodium: 142 Potassium: 4.5 Chloride: 109 Calcium: 8.4 Corrected Calcium: 10.00 Magnesium: 2.1 CO2: 21 SCr: 0.9 Glucose: 156-226 Albumin: 2.0 AST: 82 ALT: 121 TPN FORMULA: TPN TYPE: Central Continuous AMINO ACIDS: 75 gm DEXTROSE: 225 gm LIPIDS: 20 gm SODIUM ACETATE: 70 mEq SODIUM PHOSPHATE: 12 mmol POTASSIUM CHLORIDE: 50 mEq MAGNESIUM: 16 mEq CALCIUM: 10 mEq INSULIN: 15 units MULTIPLE VITAMIN: 10 ml TRACE ELEMENTS: 1 ml(s) TPN PLAN: Continue same. R: Continue TPN Will monitor electrolytes, glucose, and tolerance to TPN. Adamaris Watters Naa, 11/07/19 [id number]
--- NOTE | 2019-11-07 14:35 | NUR ---
[facility] following. Coordinated care with RN and CM. Reviewed chart. Spoke with Faiza from [facility] and pt's insurance approved LTAC. [facility] is waiting on a bed and Faiza stated it will likely be 11/09/2019. [facility] called pt's mother Elizabeth ([phone]) to update. RN, JOSE LUIS, and Dr. Melton updated on status of discharge plan. SANDOVAL to continue following. Addendum: 11/07/19 at 1444 by MICHOACANO NICK Pt's mother is considering PEG.
[2019-11-07 15:00] VITALS: BP 151/93
--- NOTE | 2019-11-07 17:22 | PDOC ---
PROGRESS NOTES Assessment Problems Medical Problems: (1) DKA (diabetic ketoacidoses)-resolved. He has had a few episodes of hypoglycemia. Status: Acute (2) Hypokalemia Status: Acute (3) Respiratory failure-resolved, no longer requiring mechanical ventilation. Status: Acute (4) Severe sepsis-resolved with appropriate treatment. Status: Acute (5) Suspected 2019-nCoV infection-negative Status: Acute 6. Concern for stroke-exam continues to be nonfocal. Smile appears much more symmetric today. Movements and sensation were symmetric. CT scan of the head was negative. No evidence for stroke. Plan 1. One of the issues is dysphagia and diarrhea. He is currently receiving TPN. He has been working with speech therapy. If the ability to swallow is not improving then I would consider a PEG for enteral feeding if he is able to tolerate. He does not appear to have pancreatitis as the lipase on admission was normal. If he is having more abdominal symptoms then this may need to be repeated. 2. He is cognitively slow likely from his health issues provoking and encephalopathy. He had sepsis syndrome, respiratory failure, kidney failure and prolonged ventilation. He is cognitively slow to respond but is able to respond and answer questions. The CT scan did not reveal structural damage. The encephalopathy can gradually improved. He would be more appropriate for an acute care rehab. 3. It is important to activate him as much as possible. Today he did sit up and was able to bear weight once he got on his feet. Subjective I do not think I am in any pain. I am not sure. Objective Vital Signs Date Time Temp Pulse Resp B/P (MAP) Pulse Ox O2 Delivery O2 Flow Rate FiO2 11/07/19 15:00 98.4 98 20 151/93 (112) 99 Room Air 98.4 Intake and Output 11/07/19 07:00 Intake Total 0 ml Output Total 725 ml Balance -725 ml Intake Oral 0 ml Output Urine Total 725 ml PHYSICAL EXAM He was lying on his side having some spasms of his abdomen. He was alert and awake. He was able to respond to questions and commands but there was a delay. The eyes were conjugate. Visual baig were intact. Pupils were 3 mm and reactive. Facial sensation was intact. Smile was symmetric. Hearing was intact to finger rub. The tongue was midline with full motion. Muscle bulk was symmetric. Tone was not spastic or rigid. Power was fairly symmetric with senior designer. Overall the proximal muscles were generally weak. Sensation was intact to light touch. He withdrew his feet to plantar stimulation symmetrically. Review of Relevant I have reviewed the following items blaze (where applicable) has been applied. Labs Laboratory Tests Test 11/05/19 18:25 11/06/19 00:20 11/06/19 03:40 11/06/19 05:25 Glucose (Fingerstick) 257 mg/dL (70-99) 265 mg/dL (70-99) 231 mg/dL (70-99) White Blood Count 6.0 x10^3/uL (4.0-11.0) Red Blood Count 3.38 x10^6/uL (4.30-5.70) Hemoglobin 8.3 g/dL (13.0-17.5) Hematocrit 25.4 % (39.0-53.0) Mean Corpuscular Volume 75 fL (79-100) Mean Corpuscular Hemoglobin 25 pg (25-35) Mean Corpuscular Hemoglobin Concent 33 g/dL (31-37) Red Cell Distribution Width 22.0 % (11.5-14.5) Platelet Count 220 x10^3/uL (140-400) Neutrophils (%) (Auto) 67 % (31-73) Lymphocytes (%) (Auto) 18 % (24-48) Monocytes (%) (Auto) 12 % (0-9) Eosinophils (%) (Auto) 2 % (0-3) Basophils (%) (Auto) 1 % (0-3) Neutrophils # (Auto) 4.0 x10^3/uL (1.8-7.7) Lymphocytes # (Auto) 1.1 x10^3/uL (1.0-4.8) Monocytes # (Auto) 0.7 x10^3/uL (0.0-1.1) Eosinophils # (Auto) 0.1 x10^3/uL (0.0-0.7) Basophils # (Auto) 0.1 x10^3/uL (0.0-0.2) Test 11/06/19 11:22 11/06/19 18:36 11/07/19 04:15 11/07/19 06:12 Glucose (Fingerstick) 187 mg/dL (70-99) 156 mg/dL (70-99) 226 mg/dL (70-99) White Blood Count 6.5 x10^3/uL (4.0-11.0) Red Blood Count 3.60 x10^6/uL (4.30-5.70) Hemoglobin 8.7 g/dL (13.0-17.5) Hematocrit 27.5 % (39.0-53.0) Mean Corpuscular Volume 76 fL (79-100) Mean Corpuscular Hemoglobin 24 pg (25-35) Mean Corpuscular Hemoglobin Concent 32 g/dL (31-37) Red Cell Distribution Width 22.5 % (11.5-14.5) Platelet Count 363 x10^3/uL (140-400) Neutrophils (%) (Auto) 68 % (31-73) Lymphocytes (%) (Auto) 17 % (24-48) Monocytes (%) (Auto) 12 % (0-9) Eosinophils (%) (Auto) 3 % (0-3) Basophils (%) (Auto) 1 % (0-3) Neutrophils # (Auto) 4.4 x10^3/uL (1.8-7.7) Lymphocytes # (Auto) 1.1 x10^3/uL (1.0-4.8) Monocytes # (Auto) 0.8 x10^3/uL (0.0-1.1) Eosinophils # (Auto) 0.2 x10^3/uL (0.0-0.7) Basophils # (Auto) 0.1 x10^3/uL (0.0-0.2) Sodium Level 142 mmol/L (136-145) Potassium Level 4.5 mmol/L (3.5-5.1) Chloride Level 109 mmol/L (98-107) Carbon Dioxide Level 21 mmol/L (21-32) Anion Gap 12 (6-14) Blood Urea Nitrogen 20 mg/dL (8-26) Creatinine 0.9 mg/dL (0.7-1.3) Estimated GFR (Cockcroft-Gault) 89.3 BUN/Creatinine Ratio 22 (6-20) Glucose Level 222 mg/dL (70-99) Calcium Level 8.4 mg/dL (8.5-10.1) Phosphorus Level 4.0 mg/dL (2.6-4.7) Magnesium Level 2.1 mg/dL (1.8-2.4) Total Bilirubin 0.4 mg/dL (0.2-1.0) Aspartate Amino Transf (AST/SGOT) 83 U/L (15-37) Alanine Aminotransferase (ALT/SGPT) 121 U/L (16-63) Alkaline Phosphatase 196 U/L (46-116) Total Protein 5.8 g/dL (6.4-8.2) Albumin 2.0 g/dL (3.4-5.0) Albumin/Globulin Ratio 0.5 (1.0-1.7) Test 11/07/19 11:37 Glucose (Fingerstick) 189 mg/dL (70-99) Laboratory Tests Test 11/06/19 18:36 11/07/19 04:15 11/07/19 06:12 11/07/19 11:37 Glucose (Fingerstick) 156 mg/dL (70-99) 226 mg/dL (70-99) 189 mg/dL (70-99) White Blood Count 6.5 x10^3/uL (4.0-11.0) Red Blood Count 3.60 x10^6/uL (4.30-5.70) Hemoglobin 8.7 g/dL (13.0-17.5) Hematocrit 27.5 % (39.0-53.0) Mean Corpuscular Volume 76 fL (79-100) Mean Corpuscular Hemoglobin 24 pg (25-35) Mean Corpuscular Hemoglobin Concent 32 g/dL (31-37) Red Cell Distribution Width 22.5 % (11.5-14.5) Platelet Count 363 x10^3/uL (140-400) Neutrophils (%) (Auto) 68 % (31-73) Lymphocytes (%) (Auto) 17 % (24-48) Monocytes (%) (Auto) 12 % (0-9) Eosinophils (%) (Auto) 3 % (0-3) Basophils (%) (Auto) 1 % (0-3) Neutrophils # (Auto) 4.4 x10^3/uL (1.8-7.7) Lymphocytes # (Auto) 1.1 x10^3/uL (1.0-4.8) Monocytes # (Auto) 0.8 x10^3/uL (0.0-1.1) Eosinophils # (Auto) 0.2 x10^3/uL (0.0-0.7) Basophils # (Auto) 0.1 x10^3/uL (0.0-0.2) Sodium Level 142 mmol/L (136-145) Potassium Level 4.5 mmol/L (3.5-5.1) Chloride Level 109 mmol/L (98-107) Carbon Dioxide Level 21 mmol/L (21-32) Anion Gap 12 (6-14) Blood Urea Nitrogen 20 mg/dL (8-26) Creatinine 0.9 mg/dL (0.7-1.3) Estimated GFR (Cockcroft-Gault) 89.3 BUN/Creatinine Ratio 22 (6-20) Glucose Level 222 mg/dL (70-99) Calcium Level 8.4 mg/dL (8.5-10.1) Phosphorus Level 4.0 mg/dL (2.6-4.7) Magnesium Level 2.1 mg/dL (1.8-2.4) Total Bilirubin 0.4 mg/dL (0.2-1.0) Aspartate Amino Transf (AST/SGOT) 83 U/L (15-37) Alanine Aminotransferase (ALT/SGPT) 121 U/L (16-63) Alkaline Phosphatase 196 U/L (46-116) Total Protein 5.8 g/dL (6.4-8.2) Albumin 2.0 g/dL (3.4-5.0) Albumin/Globulin Ratio 0.5 (1.0-1.7) Microbiology 11/04/19 Blood Culture - Preliminary, Resulted 10/30/19 Urine Culture - Final, Complete Medications Current Medications Midazolam HCl 100 ml @ 1 mls/hr 1X ONCE IV Last administered on 10/30/19at 10:40; Start 10/30/19 at 10:30; Stop 11/01/19 at 08:11; Status DC Midazolam HCl 50 mg/Sodium Chloride 50 ml @ 0 mls/hr 1X ONCE IV ; Start 10/30/19 at 10:30; Stop 10/30/19 at 10:31; Status UNV Etomidate (Amidate) 20 mg 1X ONCE IV Last administered on 10/30/19at 10:38; Start 10/30/19 at 10:30; Stop 10/30/19 at 10:32; Status DC Succinylcholine Chloride (Anectine) 100 mg 1X ONCE IV Last administered on 10/30/19at 10:38; Start 10/30/19 at 10:30; Stop 10/30/19 at 10:32; Status DC Norepinephrine Bitartrate 8 mg/ Dextrose 258 ml @ 13.177 mls/ hr 1X ONCE IV Last administered on 10/30/19at 10:39; Start 10/30/19 at 10:25; Stop 10/31/19 at 05:59; Status DC Piperacillin Sod/ Tazobactam Sod 3.375 gm/Sodium Chloride 50 ml @ 100 mls/hr 1X ONCE IV Last administered on 10/30/19at 10:42; Start 10/30/19 at 11:00; Stop 10/30/19 at 11:29; Status DC Rocuronium [place] (Zemuron) 10 mg 1X ONCE IV ; Start 10/30/19 at 10:45; Stop 10/30/19 at 10:46; Status Cancel Sodium Chloride 1,000 ml @ 1,000 mls/hr 1X ONCE IV Last administered on 10/30/19at 10:43; Start 10/30/19 at 10:45; Stop 10/30/19 at 11:44; Status DC Sodium Chloride 1,000 ml @ 1,000 mls/hr 1X ONCE IV Last administered on 10/30/19at 10:43; Start 10/30/19 at 10:45; Stop 10/30/19 at 11:44; Status DC Rocuronium [place] (Zemuron) 50 mg 1X ONCE IV Last administered on 10/30/19at 10:45; Start 10/30/19 at 10:45; Stop 10/30/19 at 10:46; Status DC Potassium Chloride/Water 100 ml @ 100 mls/hr Q1H IV Last administered on 10/30/19at 12:56; Start 10/30/19 at 12:00; Stop 10/30/19 at 13:59; Status DC Insulin Human Regular 100 ml @ 0 mls/hr 1X ONCE IV Last administered on 10/30/19at 12:55; Start 10/30/19 at 12:00; Stop 10/30/19 at 12:01; Status DC Sodium Chloride 1,000 ml @ 1,000 mls/hr 1X ONCE IV Last administered on 10/30/19at 12:45; Start 10/30/19 at 12:15; Stop 10/30/19 at 13:14; Status DC Ondansetron HCl (Zofran) 4 mg PRN Q8HRS PRN IV NAUSEA/VOMITING; Start 10/30/19 at 12:30; Stop 10/31/19 at 12:29; Status DC Sodium Chloride 1,000 ml @ 125 mls/hr Q8H IV Last administered on 10/30/19at 15:20; Start 10/30/19 at 12:25; Stop 10/31/19 at 07:13; Status DC Dexmedetomidine HCl 400 mcg/ Sodium Chloride 100 ml @ 0 mls/hr CONT PRN IV SEE COMMENTS Last administered on 11/04/19at 06:04; Start 10/30/19 at 15:00; Stop 11/06/19 at 11:25; Status DC Fentanyl Citrate (Fentanyl 2ml Vial) 25 mcg PRN Q1HR PRN IV PAIN; Start 10/30/19 at 15:00; Status UNV Lorazepam (Ativan Inj) 0.5 mg PRN Q2HRS PRN IV AGITATION; Start 10/30/19 at 1 5:00; Status UNV Sodium Chloride 500 ml @ 500 mls/hr 1X PRN PRN IV COMMENTS; Start 10/30/19 at 15:00 Atropine Sulfate (ATROPINE 0.5mg SYRINGE) 0.5 mg PRN Q5MIN PRN IV SEE COMMENTS; Start 10/30/19 at 15:00 Midazolam HCl 100 ml @ 1 mls/hr CONT PRN IV SEE COMMENTS Last administered on 11/02/19at 08:30; Start 10/30/19 at 17:00; Stop 11/06/19 at 11:25; Status DC Pantoprazole Sodium (PROTONIX VIAL for IV PUSH) 40 mg DAILYAC IVP Last administered on 10/31/19at 07:23; Start 10/31/19 at 07:30; Stop 10/31/19 at 11:55; Status DC Pantoprazole Sodium (PROTONIX VIAL for IV PUSH) 40 mg 1X ONCE IVP Last administered on 10/30/19at 22:00; Start 10/30/19 at 18:45; Stop 10/30/19 at 18:47; Status DC Phytonadione (Vitamin K Ampule) 5 mg 1X ONCE SQ Last administered on 10/30/19at 20:01; Start 10/30/19 at 18:45; Stop 10/30/19 at 18:47; Status DC Fentanyl Citrate 30 ml @ 0 mls/hr CONT PRN IV SEE PROTOCOL Last administered on 11/04/19at 06:15; Start 10/30/19 at 19:00; Stop 11/06/19 at 11:26; Status DC Dextrose/Sodium Chloride 1,000 ml @ 250 mls/hr Q4H IV Last administered on 11/01/19at 12:40; Start 10/30/19 at 19:30; Stop 11/01/19 at 17:29; Status DC Potassium Phosphate 13.6 mmol/Sodium Chloride 254.5333 ml @ 127.... Q2H IV Last administered on 10/30/19at 22:00; Start 10/30/19 at 20:00; Stop 10/30/19 at 23:59; Status DC Piperacillin Sod/ Tazobactam Sod 2.25 gm/Sodium Chloride 50 ml @ 100 mls/hr Q6HRS IV Last administered on 10/31/19at 12:28; Start 10/31/19 at 00:00; Stop 10/31/19 at 14:01; Status DC Daptomycin 540 mg/ Sodium Chloride 50 ml @ 100 mls/hr ONCE ONCE IV Last administered on 10/30/19at 22:09; Start 10/30/19 at 22:00; Stop 10/30/19 at 22:29; Status DC Norepinephrine Bitartrate 8 mg/ Dextrose 258 ml @ 17.554 mls/ hr CONT PRN IV PER PROTOCOL Last administered on 11/03/19at 00:09; Start 10/30/19 at 22:15; Stop 11/06/19 at 11:26; Status DC Potassium Chloride/Water 100 ml @ 100 mls/hr Q1H IV Last administered on 10/31/19at 01:30; Start 10/30/19 at 23:30; Stop 10/31/19 at 02:29; Status DC Dextrose (Dextrose 50%-Water Syringe) 25 gm PRN Q10MIN PRN IV HYPOGLYCEMIA Last administered on 10/31/19at 02:39; Start 10/31/19 at 02:30 Potassium Chloride/Water 100 ml @ 100 mls/hr Q1H IV Last administered on 10/31/19at 04:39; Start 10/31/19 at 03:30; Stop 10/31/19 at 05:29; Status DC Insulin Human Regular 100 unit/ Sodium Chloride 101 ml @ 0 mls/hr CONT PRN IV SEE I/O RECORD Last administered on 11/01/19at 14:58; Start 10/31/19 at 03:15; Stop 11/04/19 at 08:38; Status DC Potassium Chloride/Water 100 ml @ 100 mls/hr Q1H IV Last administered on 10/31/19at 08:27; Start 10/31/19 at 07:30; Stop 10/31/19 at 09:29; Status DC Potassium Phosphate 13.6 mmol/Sodium Chloride 254.5333 ml @ 127.... Q2H IV Last administered on 10/31/19at 13:18; Start 10/31/19 at 11:00; Stop 10/31/19 at 14:59; Status DC Pantoprazole Sodium (PROTONIX VIAL for IV PUSH) 40 mg [id number] IVP Last administered on 11/04/19at 06:07; Start 10/31/19 at 18:00; Stop 11/04/19 at 16:29; Status DC Phytonadione (Vitamin K Ampule) 10 mg 1X ONCE SQ Last administered on at 12:29; Start 10/31/19 at 12:00; Stop 10/31/19 at 12:01; Status DC Linezolid/Dextrose 300 ml @ 300 mls/hr Q12HR IV Last administered on 11/02/19at 08:13; Start 10/31/19 at 14:00; Stop 11/02/19 at 08:50; Status DC Piperacillin Sod/ Tazobactam Sod 3.375 gm/Sodium Chloride 50 ml @ 100 mls/hr Q6HRS IV Last administered on 10/31/19at 18:06; Start 10/31/19 at 18:00; Stop 10/31/19 at 18:32; Status DC Acetaminophen (Tylenol Supp) 650 mg PRN Q6HRS PRN GA MILD PAIN / TEMP > 100.3'F Last administered on 11/04/19at 00:18; Start 10/31/19 at 16:00 Potassium Chloride/Water 100 ml @ 100 mls/hr Q1H IV Last administered on 10/31/19at 19:07; Start 10/31/19 at 18:00; Stop 10/31/19 at 19:59; Status DC Magnesium Sulfate 100 ml @ 25 mls/hr 1X ONCE IV Last administered on 10/31/19at 18:07; Start 10/31/19 at 18:00; Stop 10/31/19 at 21:59; Status DC Meropenem 500 mg/ Sodium Chloride 50 ml @ 100 mls/hr Q6HRS IV Last administered on 11/07/19at 13:06; Start 11/01/19 at 00:00 Potassium Chloride/Water 100 ml @ 100 mls/hr Q1H IV Last administered on 10/31/19at 23:45; Start 10/31/19 at 22:00; Stop 10/31/19 at 23:59; Status DC Potassium Chloride/Water 100 ml @ 100 mls/hr Q1H IV Last administered on 11/01/19at 03:45; Start 11/01/19 at 02:45; Stop 11/01/19 at 04:44; Status DC Potassium Phosphate 15 mmol/ Sodium Chloride 255 ml @ 62.5 mls/hr 1X ONCE IV Last administered on 11/01/19at 02:48; Start 11/01/19 at 02:45; Stop 11/01/19 at 06:49; Status DC Potassium Phosphate 13.6 mmol/Sodium Chloride 254.5333 ml @ 127.... 1X ONCE IV Last administered on 11/01/19at 09:17; Start 11/01/19 at 09:00; Stop 11/01/19 at 10:59; Status DC Info (Tpn Per Pharmacy) 1 each PRN DAILY PRN MC SEE COMMENTS Last administered on 11/07/19at 13:09; Start 11/01/19 at 11:00 Sodium Acetate 90 meq/Potassium Chloride 50 meq/ Potassium Phosphate 13.6 mmol/Magnesium Sulfate 10 meq/ Calcium Gluconate 10 meq/ Multivitamins 10 ml/Chromium/ Copper/Manganese/ Seleni/Zn 1 ml/ Total Parenteral Nutrition/Amino Acids/Dextrose/ Fat Emulsion Intravenous 1,512 ml @ 63 mls/hr TPN CONT IV Last administered on 11/01/19at 21:26; Start 11/01/19 at 22:00; Stop 11/02/19 at 21:59; Status DC Potassium Phosphate 13.6 mmol/Sodium Chloride 254.5333 ml @ 127.... 1X ONCE IV Last administered on 11/01/19at 13:06; Start 11/01/19 at 13:00; Stop 11/01/19 at 14:59; Status DC Insulin Glargine (Lantus Syringe) 20 unit 1X ONCE SQ Last administered on 11/01/19at 17:45; Start 11/01/19 at 18:00; Stop 11/01/19 at 18:01; Status DC Insulin Glargine (Lantus Syringe) 20 unit BID SQ Last administered on 11/07/19at 09:38; Start 11/02/19 at 09:00 Insulin Human Lispro (HumaLOG) 0-7 UNITS Q6HRS SQ Last administered on 10/10 12/29at 13:15; Start 11/02/19 at 00:00 Dextrose (Dextrose 50%-Water Syringe) 12.5 gm PRN Q15MIN PRN IV SEE COMMENTS; Start 11/01/19 at 17:30 Magnesium Sulfate 100 ml @ 25 mls/hr 1X ONCE IV Last administered on 11/01/19at 17:46; Start 11/01/19 at 18:00; Stop 11/01/19 at 21:59; Status DC Sodium Chloride 1,000 ml @ 125 mls/hr Q8H IV Last administered on 11/01/19at 17:45; Start 11/01/19 at 18:00; Status Hold Sodium Phosphate 15 mmol/Sodium Chloride 105 ml @ 105 mls/hr 1X ONCE IV Last administered on 11/02/19at 08:36; Start 11/02/19 at 09:00; Stop 11/02/19 at 09:59; Status DC Clindamycin Phosphate 50 ml @ 100 mls/hr Q8HRS IV Last administered on 11/04/19at 06:05; Start 11/02/19 at 14:00; Stop 11/04/19 at 06:59; Status DC Sodium Acetate 70 meq/Sodium Phosphate 18 mmol/ Potassium Chloride 50 meq/ Magnesium Sulfate 10 meq/Calcium Gluconate 10 meq/ Multivitamins 10 ml/Chromium/ Copper/Manganese/ Seleni/Zn 1 ml/ Total Parenteral Nutrition/Amino Acids/Dextrose/ Fat Emulsion Intravenous 1,512 ml @ 63 mls/hr TPN CONT IV Last administered on 11/02/19at 21:48; Start 11/02/19 at 22:00; Stop 11/03/19 at 21:59; Status DC Sodium Acetate 70 meq/Sodium Phosphate 24 mmol/ Potassium Chloride 50 meq/ Magnesium Sulfate 16 meq/Calcium Gluconate 10 meq/ Multivitamins 10 ml/Chromium/ Copper/Manganese/ Seleni/Zn 1 ml/ Total Parenteral Nutrition/Amino Acids/Dextrose/ Fat Emulsion Intravenous 1,512 ml @ 63 mls/hr TPN CONT IV Last administered on 11/03/19at 21:17; Start 11/03/19 at 22:00; Stop 11/04/19 at 21:59; Status DC Daptomycin 450 mg/ Sodium Chloride 50 ml @ 100 mls/hr Q24H IV ; Start 11/04/19 at 09:00; Stop 11/04/19 at 07:23; Status DC Micafungin Sodium 100 mg/Dextrose 100 ml @ 100 mls/hr Q24H IV Last administered on 11/07/19at 08:19; Start 11/04/19 at 08:00 Linezolid/Dextrose 300 ml @ 300 mls/hr Q12HR IV Last administered on 11/07/19at 09:22; Start 11/04/19 at 09:00 Sodium Acetate 70 meq/Sodium Phosphate 24 mmol/ Potassium Chloride 50 meq/ Magnesium Sulfate 16 meq/Calcium Gluconate 10 meq/ Multivitamins 10 ml/Chromium/ Copper/Manganese/ Seleni/Zn 1 ml/ Total Parenteral Nutrition/Amino Acids/Dextrose/ Fat Emulsion Intravenous 1,800 ml @ 75 mls/hr TPN CONT IV Last administered on 11/04/19at 21:11; Start 11/04/19 at 22:00; Stop 11/05/19 at 21:59; Status DC Albuterol Sulfate (Ventolin Neb Soln) 2.5 mg PRN Q4HRS PRN NEB WHEEZING; Start 11/04/19 at 16:30 Docusate Sodium (Colace) 100 mg PRN BID PRN PO HARD STOOLS; Start 11/04/19 at 16:30 Lactobacillus Rhamnosus (Culturelle) 1 cap BID PO Last administered on 11/05/19at 09:03; Start 11/04/19 at 21:00 Lisinopril (Prinivil) 5 mg DAILY PO Last administered on 11/05/19at 09:03; Start 11/05/19 at 09:00 Pantoprazole Sodium (Protonix) 40 mg DAILYAC PO Last administered on 11/05/19at 09:03; Start 11/05/19 at 07:30 Potassium Chloride (Klor-Con) 20 meq DAILYWBKFT PO ; Start 11/05/19 at 08:00 Non-Formulary Medication (Doxepin Hcl ) 300 mg HS PO ; Start 11/04/19 at 21:00 Casas Carbonate (Lithobid) 300 mg BID PO Last administered on 11/05/19at 09:03; Start 11/04/19 at 21:00 Tizanidine HCl (Zanaflex) 4 mg PRN Q8HRS PRN PO MUSCLE SPASMS; Start 11/04/19 at 16:45 Clonazepam (KlonoPIN) 1 mg PRN BID PRN PO ANXIETY / AGITATION; Start 11/04/19 at 16:30 Acetaminophen (Tylenol) 650 mg PRN Q6HRS PRN PO MILD PAIN / TEMP > 100.3'F; Start 11/04/19 at 16:30 Nystatin (Nystop) 1 elmer BID TP Last administered on 11/07/19at 09:22; Start 11/04/19 at 21:00 Sodium Acetate 70 meq/Sodium Phosphate 12 mmol/ Potassium Chloride 50 meq/ Magnesium Sulfate 16 meq/Calcium Gluconate 10 meq/ Multivitamins 10 ml/Chromium/ Copper/Manganese/ Seleni/Zn 1 ml/ Insulin Human Regular 10 unit/ Total Parenteral Nutrition/Amino Acids/Dextrose/ Fat Emulsion Intravenous 1,800 ml @ 75 mls/hr TPN CONT IV Last administered on 11/05/19at 22:32; Start 11/05/19 at 22:00; Stop 11/06/19 at 21:59; Status DC Sodium Acetate 70 meq/Sodium Phosphate 12 mmol/ Potassium Chloride 50 meq/ Magnesium Sulfate 16 meq/Calcium Gluconate 10 meq/ Multivitamins 10 ml/Chromium/ Copper/Manganese/ Seleni/Zn 1 ml/ Insulin Human Regular 15 unit/ Total Parenter al Nutrition/Amino Acids/Dextrose/ Fat Emulsion Intravenous 1,800 ml @ 75 mls/hr TPN CONT IV Last administered on 11/07/19at 05:55; Start 11/06/19 at 22:00; Stop 11/07/19 at 21:59 Hydralazine HCl (Apresoline Inj) 10 mg PRN Q6HRS PRN IVP ELEVATED BP, SEE COMMENTS; Start 11/06/19 at 17:00 Sodium Acetate 70 meq/Sodium Phosphate 12 mmol/ Potassium Chloride 50 meq/ Magnesium Sulfate 16 meq/Calcium Gluconate 10 meq/ Multivitamins 10 ml/Chromium/ Copper/Manganese/ Seleni/Zn 1 ml/ Insulin Human Regular 15 unit/ Total Parenteral Nutrition/Amino Acids/Dextrose/ Fat Emulsion Intravenous 1,800 ml @ 75 mls/hr TPN CONT IV ; Start 11/07/19 at 22:00; Stop 11/08/19 at 21:59 Active Scripts Active Humalog (Insulin Lispro) 100 Unit/1 Ml Insuln.pen 0 Units SQ QIDACHS 14 Days Culturelle (Lactobacillus Rhamnosus Gg) 1 Each Cap.sprink 1 Cap PO BID 30 Days Pantoprazole Sodium (Pantoprazole Sodium) 40 Mg Tablet.dr 40 Mg PO DAILYAC 30 Days Dok (Docusate Sodium) 100 Mg Capsule 100 Mg PO PRN BID PRN 30 Days Klor-Con M20 (Potassium Chloride) 20 Meq Tab.er.prt 20 Meq PO DAILYWBKFT 14 Days Proair Hfa (Albuterol Sulfate) 8.5 Gm Hfa.aer.ad 2.5 Mg NEB PRN Q4HRS PRN 14 Days Reported Clindamycin Hcl 300 Mg Capsule 600 Mg PO BID Lidocaine PATCH (Lidocaine) 1 Each Adh..patch 1 Each TP DAILY REMOVE AFTER 12 HOURS Lisinopril 5 Mg Tablet 1 Tab PO DAILY Clonazepam 1 Mg Tablet 1 Mg PO BID [place] Carbonate 300 Mg Tablet 1 Tab PO BID Zanaflex (Tizanidine Hcl) 4 Mg Capsule 1 Cap PO TID PRN Janumet 50-1,000 Mg Tablet (Sitagliptin Phos/Metformin Hcl) 1 Each Tablet 1 Tab PO BID Doxepin Hcl 50 Mg Capsule 300 Mg PO HS Vitals/I & O Vital Sign - Last 24 Hours 11/06/19 11/06/19 11/06/19 11/07/19 19:00 20:00 23:00 03:00 Temp 98.5 97.7 98.5 98.5 97.7 98.5 Pulse 103 98 101 Resp 20 20 20 B/P (MAP) 138/97 (111) 160/103 (122) 123/95 (104) Pulse Ox 96 100 100 O2 Delivery Room Air Room Air Room Air Room Air 11/07/19 11/07/19 11/07/19 11/07/19 07:56 08:00 11:00 15:00 Temp 98.6 98.6 98.4 98.6 98.6 98.4 Pulse 105 98 98 Resp 18 18 20 B/P (MAP) 174/111 (132) 152/109 (123) 151/93 (112) Pulse Ox 100 100 99 O2 Delivery Room Air Room Air Room Air Room Air Intake and Output 11/06/19 11/06/19 11/07/19 15:00 23:00 07:00 Intake Total 0 ml 0 ml Output Total 550 ml 175 ml Balance -550 ml -175 ml 0 ml Justicifation of Admission Dx: Justifications for Admission: Justification of Admission Dx: Yes Comminuty Aquired Pneumonia: Hemodynamic Instability Acute Renal Failure: RF Can't Be Managed Outpt Sepsis: Altered Mental Status DKA: SUNITHA WINTER MD Nov 07, 2019 17:22
[2019-11-07 19:00] VITALS: BP 156/111
[2019-11-07] MEDS: DOXEPIN 150 MG PO SCH (20:52)
[2019-11-07] MEDS ORDERED: TOTAL PARENTERAL NUTRITION IV SCH ×11 (22:00)
[2019-11-07] MEDS ORDERED: AMINO ACID IV SCH ×11 (22:00)
[2019-11-07] MEDS ORDERED: DEXTROSE 70% IV SCH ×11 (22:00)
[2019-11-07] MEDS ORDERED: [UNRECOGNIZED DRUG - OTHER] IV SCH ×11 (22:00)
[2019-11-07] MEDS: MORPHINE SULFATE 4 MG/ML VIAL. IV PRN (22:15)
[2019-11-07 23:00] VITALS: BP 165/99
[2019-11-08] MEDS: MEROPENEM 500 MG in IV NORMAL SALINE 50ML 50 ML IV SCH ×4 (00:53→18:33)
[2019-11-08] MEDS: INSULIN LISPRO 300 UNITS/3 ML VIAL. SQ SCH ×4 (00:58→18:31)
[2019-11-08 03:00] VITALS: BP 162/110
[2019-11-08] MEDS: MORPHINE SULFATE 4 MG/ML VIAL. IV PRN ×4 (03:52→23:10)
[2019-11-08 07:00] VITALS: BP 135/108
[2019-11-08] MEDS: PANTOPRAZOLE 40 MG TABLET.DR. PO SCH (07:30)
[2019-11-08] MEDS: POTASSIUM CHLORIDE 20 MEQ TABLET.ER. PO SCH (08:00)
[2019-11-08] MEDS: NYSTATIN TOPICAL POWDER 15GM BOTTLE. TP SCH ×2 (08:24→23:15)
[2019-11-08] MEDS: MICAFUNGIN 100 MG in IV DEXTROSE 5% 100ML 100 ML IV SCH (08:25)
--- NOTE | 2019-11-08 08:46 | PDOC ---
Infectious Disease Note Subjective Subjective Cont to improve. a litte Hungry. No pain No F/C/S/N/V/rash + BM ROS ROS o/w neg Vital Sign Vital Signs Vital Signs Date Time Temp Pulse Resp B/P (MAP) Pulse Ox O2 Delivery O2 Flow Rate FiO2 11/08/19 04:30 99 Room Air 11/08/19 03:00 98.0 98 18 162/110 (127) 98.0 Physical Exam PHYSICAL EXAM GENERAL: Alert, in bed. NAD - lloks better HEENT: Normocephalic, atraumatic, nml conj. OC/Op -clear NECK: Supple, no lymphadenopathy, no thyromegaly. LUNGS: Decreased breath sounds at the bases, otherwise, clear. HEART: S1, S2, tachycardia. No murmurs. ABDOMEN: Soft, nontender.Obese EXTREMITIES: No cyanosis, no clubbing, mild generalized edema. MUSCULOSKELETAL: Previous left knee surgery. Incision scar intact. No effusion. No surrounding erythema, no fluctuance. DERMATOLOGIC: Warm, dry. No generalized rash. NEUROLOGIC: Cooperative. Alert, oriented x3 Left subclavian - clean Labs Lab Laboratory Tests Test 11/07/19 11:37 11/07/19 21:57 11/08/19 06:27 11/08/19 08:25 Glucose (Fingerstick) 189 mg/dL (70-99) 158 mg/dL (70-99) 158 mg/dL (70-99) 167 mg/dL (70-99) Micro CT head 11/05 Impression: 1. No acute intracranial abnormality. 2. Mild nonspecific white matter changes, most often due to chronic microvascular ischemia, unchanged. Microbiology 11/04/19 Blood Culture - Preliminary, Resulted NO GROWTH AFTER 1 DAY 10/30/19 Urine Culture - Final, Complete Objective Assessment Fever - resolved- could be from underlying pancreatic pseudocyst Septic shock POA from strep group B bacteremia better Group B strep bacteremia 10/29 POA source likely GI - repeat Blood cult 11/01 and 11/03 neg Blood cultures 10/31 staph hemolyticus possible contaminant 1/2 Encephalopathy present on admission - -Neuro eval 11/05 [employer] eval reviewed - better today knows year and place Acute respiratory failure status post intubation in the ED, - extubated Pneumothorax stable Diabetic ketoacidosis. Acute kidney injury with underlying CKD.- better Coagulopathy. Status post vitamin K Nausea and vomiting, chronically since last surgery with gallbladder. GI bleed Recent Pancreatitis, status post laparoscopic cholecystectomy on 09/14/2019.;now with pseudocyst/fluid collection Weight loss due to poor p.o. 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 Currently well healed. Hypertension. Bipolar disorder. Anemia Thrombocytopenia High BNP and troponin leak Intolerance to Daptomycin with nausea, tolerated it twice for weeks in the past Last year. on chronic suppressive clindamycin Plan Plan of Care Continue meropenem 10/31 Started linezolid 11/03 and micafungin 11/03 DC Daptomycin 11/03 (allergy) f/u repeat blood culture Pulmonary ,hematology GI team following/Neurology Monitor labs Continue supportive care. Will need to restart prophylactic abx at discharge Discussed with nursing staff and family VELIA NATH MD Nov 08, 2019 08:46
[2019-11-08] MEDS: LISINOPRIL 5 MG TABLET. PO SCH (08:47)
[2019-11-08] MEDS: LACTOBACILLUS RHAMNOSUS GG 1 CAPSULE. PO SCH ×2 (08:47→20:38)
[2019-11-08] MEDS: LITHIUM CARBONATE ER 300 MG TABLET.ER PO SCH ×2 (08:47→20:38)
[2019-11-08] MEDS: INSULIN GLARGINE SYRINGE. SQ SCH ×2 (09:41→23:09)
[2019-11-08 11:00] VITALS: BP 156/110
[2019-11-08] MEDS: TPN PER PHARMACY MC PRN (11:17)
--- NOTE | 2019-11-08 11:57 | PDOC ---
[facility] PROGRESS NOTE Chief Complaint Chief Complaint Sepsis respiratory failure DKA Bacteremia, gram-positive cocci, 1/3 bottles. Recent laparoscopic cholecystectomy about 6 weeks ago Acute on chronic kidney injury. hypophosphatemia Elevated INR, likely secondary to DIC DM2 Small moderate left pneumothorax, incompletely evaluated. Interval development of a 6.3 cm pseudocyst along the pancreatic body. Another 6 cm fluid collection along the medial aspect of the hepatic caudate lobe also likely reflects a pseudocyst. Right colonic wall thickening. Correlate for colitis. rim calcified 10 mm mass along the left kidney medially may be a complicated cyst but is indeterminate. Sonographic follow-up could be performed in 6 months. severe protein-caloric malnutrition History of Present Illness History of Present Illness 11/08/2019 Patient seen and examined Resting in bed Strange BSD TPN Discussed with RN and patient's mother Discussed with states YONATAN patient seems to be improving Chart reviewed 11/07/2019 Patient seen and examined Resting in bed Strange BSD Discussed with RN and patient's mother Chart reviewed 11/06/2019 Patient seen and examined Resting in bed Discussed with RN and patient's mother Chart reviewed 11/04/2019 Patient seen and examined in ICU Strange BSD NG tube intermittent suction remains critically ill Discussed with RN and patient's mother Chart reviewed Vitals/I&O Vitals/I&O: Vital Signs Date Time Temp Pulse Resp B/P (MAP) Pulse Ox O2 Delivery O2 Flow Rate FiO2 11/08/19 11:00 98.3 97 16 156/110 (125) 99 Room Air 98.3 I & O 11/07/19 11/07/19 11/08/19 15:00 23:00 07:00 Intake Total 0 ml 0 ml Output Total 900 ml 1000 ml Balance 0 ml -900 ml -1000 ml Physical Exam Physical Exam: GENERAL: Alert, in bed. NAD - lloks better HEENT: Normocephalic, atraumatic, nml conj. OC/Op -clear NECK: Supple, no lymphadenopathy, no thyromegaly. LUNGS: Decreased breath sounds at the bases, otherwise, clear. HEART: S1, S2, tachycardia. No murmurs. ABDOMEN: Soft, nontender.Obese EXTREMITIES: No cyanosis, no clubbing, mild generalized edema. MUSCULOSKELETAL: Previous left knee surgery. Incision scar intact. No effusion. No surrounding erythema, no fluctuance. DERMATOLOGIC: Warm, dry. No generalized rash. NEUROLOGIC: Cooperative. Alert, oriented x3 Left subclavian - clean General: Alert, Cooperative, No acute distress Heart: Normal S1, Normal S2 Lungs: Clear Abdomen: Soft, No tenderness, No masses Extremities: No clubbing, No cyanosis, Other (Mild generalized edema) Skin: No rashes, No significant lesion Labs Labs: Laboratory Tests Test 11/07/19 21:57 11/08/19 06:27 11/08/19 08:25 Glucose (Fingerstick) 158 mg/dL (70-99) 158 mg/dL (70-99) 167 mg/dL (70-99) Assessment and Plan Assessmemt and Plan Problems Medical Problems: (1) DKA (diabetic ketoacidoses) Status: Acute (2) Hypokalemia Status: Acute (3) Respiratory failure Status: Acute (4) Severe sepsis Status: Acute (5) Suspected 2019-nCoV infection Status: Acute ASSESSMENT Sepsis respiratory failure DKA Bacteremia, gram-positive cocci, 1/3 bottles. Recent laparoscopic cholecystectomy about 6 weeks ago Acute on chronic kidney injury. hypophosphatemia Elevated INR, likely secondary to DIC DM2 Small moderate left pneumothorax, incompletely evaluated. Interval development of a 6.3 cm pseudocyst along the pancreatic body. Another 6 cm fluid collection along the medial aspect of the hepatic caudate lobe also likely reflects a pseudocyst. Right colonic wall thickening. Correlate for colitis. rim calcified 10 mm mass along the left kidney medially may be a complicated cyst but is indeterminate. Sonographic follow-up could be performed in 6 months. severe protein-caloric malnutrition PLAN [facility] Continue IV antibiotics per ID PT/OT/ST TPN Hoping to advance diet soon pending recommendations by Wound care Trend labs DVT prophylaxis Full Code Comment Review of Relevant I have reviewed the following items blaze (where applicable) has been applied. Medications: Current Medications Medications (Trade) Dose Ordered Sig/Edilma Route PRN Reason Start Time Stop Time Status Last Admin Dose Admin Sodium Acetate 70 meq/Sodium Phosphate 12 mmol/ Potassium Chloride 50 meq/ Magnesium Sulfate 16 meq/Calcium Gluconate 10 meq/ Multivitamins 10 ml/Chromium/ Copper/Manganese/ Seleni/Zn 1 ml/ Insulin Human Regular 15 unit/ Total Parenteral Nutrition/Amino Acids/Dextrose/ Fat Emulsion Intravenous 1,800 ml @ 75 mls/hr TPN CONT IV 11/07/19 22:00 11/08/19 21:59 11/07/19 22:00 Morphine Sulfate (Morphine Sulfate) 4 mg PRN Q2HR PRN IV PAIN 11/07/19 18:45 11/08/19 03:52 Justicifation of Admission Dx: Justifications for Admission: Justification of Admission Dx: Yes Comminuty Aquired Pneumonia: Hemodynamic Instability Acute Renal Failure: RF Can't Be Managed Outpt Sepsis: Altered Mental Status DKA: DKA VISHAL KATZ III DO Nov 08, 2019 11:57
--- NOTE | 2019-11-08 12:00 | SNU/HH DC ---
DISCHARGE ORDERS DISCHARGE INFORMATION: FINAL DIAGNOSIS Problems Medical Problems: (1) DKA (diabetic ketoacidoses) Status: Acute (2) Hypokalemia Status: Acute (3) Respiratory failure Status: Acute (4) Severe sepsis Status: Acute (5) Suspected 2019-nCoV infection Status: Acute CONDITION ON DISCHARGE: Stable CODE STATUS: Code Status: Full HALF-WAY: SNF STAY <30 DAYS: No HOSPICE: HOSPICE: No HOSPICE EVAL & TREAT: No LTAC: ADMIT TO LTAC: Yes POST DISCHARGE ORDERS: ACTIVITY ORDERS: Activity as tolerated WEIGHT BEARING STATUS: No restrictions BATHING ORDERS: No Tub Bath until see DIET AFTER DISCHARGE: ADA WOUND/INCISION CARE: Keep wound/cast CDI CHECKS AFTER DISCHARGE: CHECKS AFTER DISCHARGE: Check blood press - daily TREATMENT/EQUIPMENT ORDERS: ADAPTIVE EQUIPMENT NEEDED: None Physical Therapy For: Evalulation/Treatment Occupational Therapy For: Evaluation/Treatment DISCHARGE MEDICATIONS: Home Meds Active Scripts Insulin Lispro (HUMALOG) 100 Unit/1 Ml Insuln.pen, 0 UNITS SQ QIDACHS for DIABETES for 14 Days, #1 EACH Prov:JAMAL MORRIS MD 09/16/19 Lactobacillus Rhamnosus Gg (CULTURELLE) 1 Each Cap.sprink, 1 CAP PO BID for SUPPLEMENT for 30 Days, #60 CAP Prov:JAMAL MORRIS MD 09/16/19 Pantoprazole Sodium (PANTOPRAZOLE SODIUM ) 40 Mg Tablet.dr, 40 MG PO DAILYAC for GERD for 30 Days, #30 TAB.SR Prov:JAMAL MORRIS MD 09/16/19 Docusate Sodium (DOK) 100 Mg Capsule, 100 MG PO PRN BID PRN for HARD STOOLS for 30 Days, #30 CAP Prov:JAMAL MORRIS MD 09/16/19 Potassium Chloride (KLOR-CON M20) 20 Meq Tab.er.prt, 20 MEQ PO DAILYWBKFT for SUPPLEMENT for 14 Days, #14 TAB.SR Prov:JAMAL MORRIS MD 09/16/19 Albuterol Sulfate (Proair Hfa) 8.5 Gm Hfa.aer.ad, 2.5 MG NEB PRN Q4HRS PRN for WHEEZING for 14 Days, #1 INHALER Prov:JAMAL MORRIS MD 09/16/19 Reported Medications Clindamycin Hcl (CLINDAMYCIN HCL) 300 Mg Capsule, 600 MG PO BID for knee infection, CAP 09/11/19 Lidocaine (Lidocaine PATCH ) 1 Each Adh..patch, 1 EACH TP DAILY for FOR LOCAL PAIN, PATCH REMOVE AFTER 12 HOURS 03/12/19 Lisinopril (LISINOPRIL) 5 Mg Tablet, 1 TAB PO DAILY, #30 TAB 5 Refills 03/12/19 Clonazepam (CLONAZEPAM) 1 Mg Tablet, 1 MG PO BID for FOR ANXIETY, TAB 03/12/19 Blanchard Carbonate (LITHIUM CARBONATE) 300 Mg Tablet, 1 TAB PO BID for BIPOLAR, #60 TAB 1 Refill 08/08/18 Tizanidine Hcl (ZANAFLEX) 4 Mg Capsule, 1 CAP PO TID PRN for MUSCLE SPASTICITY, #90 CAP 08/25/15 Sitagliptin Phos/Metformin Hcl (JANUMET 50-1,000 MG TABLET) 1 Each Tablet, 1 TAB PO BID for diabetes 01/17/15 Doxepin Hcl (DOXEPIN HCL) 50 Mg Capsule, 300 MG PO HS for sleep/anxiety 01/17/15 VISHAL KATZ III DO Nov 08, 2019 11:59
--- NOTE | 2019-11-08 12:28 | PDOC ---
[facility] PROGRESS NOTE Subjective Indicates may try to eat. Mom says has been doing better. Objective Speech thinks progressing. Physical Exam Lungs clear RRR Abdomen soft, not tender nor distended. Review of Relevant I have reviewed the following items blaze (where applicable) has been applied. Labs Laboratory Tests Test 11/06/19 18:36 11/06/19 20:57 11/07/19 00:28 11/07/19 04:15 Glucose (Fingerstick) 156 mg/dL (70-99) 198 mg/dL (70-99) 205 mg/dL (70-99) White Blood Count 6.5 x10^3/uL (4.0-11.0) Red Blood Count 3.60 x10^6/uL (4.30-5.70) Hemoglobin 8.7 g/dL (13.0-17.5) Hematocrit 27.5 % (39.0-53.0) Mean Corpuscular Volume 76 fL (79-100) Mean Corpuscular Hemoglobin 24 pg (25-35) Mean Corpuscular Hemoglobin Concent 32 g/dL (31-37) Red Cell Distribution Width 22.5 % (11.5-14.5) Platelet Count 363 x10^3/uL (140-400) Neutrophils (%) (Auto) 68 % (31-73) Lymphocytes (%) (Auto) 17 % (24-48) Monocytes (%) (Auto) 12 % (0-9) Eosinophils (%) (Auto) 3 % (0-3) Basophils (%) (Auto) 1 % (0-3) Neutrophils # (Auto) 4.4 x10^3/uL (1.8-7.7) Lymphocytes # (Auto) 1.1 x10^3/uL (1.0-4.8) Monocytes # (Auto) 0.8 x10^3/uL (0.0-1.1) Eosinophils # (Auto) 0.2 x10^3/uL (0.0-0.7) Basophils # (Auto) 0.1 x10^3/uL (0.0-0.2) Sodium Level 142 mmol/L (136-145) Potassium Level 4.5 mmol/L (3.5-5.1) Chloride Level 109 mmol/L (98-107) Carbon Dioxide Level 21 mmol/L (21-32) Anion Gap 12 (6-14) Blood Urea Nitrogen 20 mg/dL (8-26) Creatinine 0.9 mg/dL (0.7-1.3) Estimated GFR (Cockcroft-Gault) 89.3 BUN/Creatinine Ratio 22 (6-20) Glucose Level 222 mg/dL (70-99) Calcium Level 8.4 mg/dL (8.5-10.1) Phosphorus Level 4.0 mg/dL (2.6-4.7) Magnesium Level 2.1 mg/dL (1.8-2.4) Total Bilirubin 0.4 mg/dL (0.2-1.0) Aspartate Amino Transf (AST/SGOT) 83 U/L (15-37) Alanine Aminotransferase (ALT/SGPT) 121 U/L (16-63) Alkaline Phosphatase 196 U/L (46-116) Total Protein 5.8 g/dL (6.4-8.2) Albumin 2.0 g/dL (3.4-5.0) Albumin/Globulin Ratio 0.5 (1.0-1.7) Test 11/07/19 06:12 11/07/19 11:37 11/07/19 21:57 11/08/19 06:27 Glucose (Fingerstick) 226 mg/dL (70-99) 189 mg/dL (70-99) 158 mg/dL (70-99) 158 mg/dL (70-99) Test 11/08/19 08:25 11/08/19 12:01 Glucose (Fingerstick) 167 mg/dL (70-99) 205 mg/dL (70-99) Laboratory Tests Test 11/07/19 21:57 11/08/19 06:27 11/08/19 08:25 11/08/19 12:01 Glucose (Fingerstick) 158 mg/dL (70-99) 158 mg/dL (70-99) 167 mg/dL (70-99) 205 mg/dL (70-99) Microbiology 11/04/19 Blood Culture - Final, Complete 11/04/19 Antimicrobic Susceptibility - Final, Complete 10/30/19 Urine Culture - Final, Complete Vitals/I & O Vital Sign - Last 24 Hours 11/07/19 11/07/19 11/07/19 11/07/19 15:00 19:00 19:30 22:15 Temp 98.4 98.5 98.4 98.5 Pulse 98 97 Resp 20 18 B/P (MAP) 151/93 (112) 156/111 (126) Pulse Ox 99 99 99 O2 Delivery Room Air Room Air Room Air Room Air 11/07/19 11/07/19 11/08/19 11/08/19 23:00 23:00 03:00 03:52 Temp 98.2 98.0 98.2 98.0 Pulse 99 98 Resp 18 18 B/P (MAP) 165/99 (121) 162/110 (127) Pulse Ox 99 96 99 99 O2 Delivery Room Air Room Air Room Air Room Air 11/08/19 11/08/19 11/08/19 11/08/19 04:30 07:00 11:00 11:53 Temp 98.1 98.3 98.1 98.3 Pulse 99 97 Resp 18 16 B/P (MAP) 135/108 (117) 156/110 (125) Pulse Ox 99 100 99 O2 Delivery Room Air Room Air Room Air Room Air Intake and Output 11/07/19 11/07/19 11/08/19 15:00 23:00 07:00 Intake Total 0 ml 0 ml Output Total 900 ml 1000 ml Balance 0 ml -900 ml -1000 ml Problem List Problems Medical Problems: (1) DKA (diabetic ketoacidoses) Status: Acute (2) Hypokalemia Status: Acute (3) Respiratory failure Status: Acute (4) Severe sepsis Status: Acute (5) Suspected 2019-nCoV infection Status: Acute Assessment Group B strep sepsis--source? Pancreatic pseudocysts--need to monitor/address if do not resolve spontaneously. Chronic anemia, felt ACD. Plan of Care Note Continue support. If still here in one week, re-CT. Justicifation of Admission Dx: Justifications for Admission: Justification of Admission Dx: Yes Comminuty Aquired Pneumonia: Hemodynamic Instability Acute Renal Failure: RF Can't Be Managed Outpt Sepsis: Altered Mental Status DKA: DKA BRIANNE HAYNES MD Nov 08, 2019 12:28
[2019-11-08 15:00] VITALS: BP 130/88
--- NOTE | 2019-11-08 16:34 | NUR ---
Pharmacy TPN Dosing Note S: FLORECITAYVONNEFLORECITAANASTACIA is a 49 year old M Currently receiving Central Continuous TPN started 11/01/19 B:Pertinent PMH: NPO, critical illness Height: 5 feet, 7 inches Weight: 94.8 kg Current diet: NPO LABS: Sodium: 142 (11/06) Potassium: 4.5 (11/06) Chloride: 109 (11/06) Calcium: 8.4 Corrected Calcium: 10.00 Magnesium: 2.1 (11/06) CO2: 21 SCr: 0.9 Glucose: 158-167 Albumin: 2.0 AST: 83 (11/06) ALT: 121 (11/06) TPN FORMULA: TPN TYPE: Central Continuous AMINO ACIDS: 75 gm DEXTROSE: 225 gm LIPIDS: 20 gm SODIUM CHLORIDE: - mEq SODIUM ACETATE: 70 mEq SODIUM PHOSPHATE: 12 mmol POTASSIUM CHLORIDE: 50 mEq POTASSIUM ACETATE: - mEq POTASSIUM PHOSPHATE: - mmol MAGNESIUM: 16 mEq CALCIUM: 10 mEq INSULIN: 15 units MULTIPLE VITAMIN: 10 ml TRACE ELEMENTS: 1 ml(s) TPN PLAN: -Continue macros per admitting counselor recommendations -No BMP today due to stability. BG 158-167. -Plan for no changes in TPN today. -BMP, Mag and Phos ordered for 11/09/19. R: Continue current TPN formulation with no changes at this time. Will monitor electrolytes, glucose, and tolerance to TPN. CHANDLER BRONSON, [facility], 11/08/19 [id number]
--- NOTE | 2019-11-08 16:54 | PDOC ---
PROGRESS NOTES Assessment Problems Medical Problems: 1. Encephalopathy-he is processing appears to be gradually improving. The delay with question to response is shorter. 2. History of pancreatitis-the lipase was not elevated on this admission. Once he regains his swallowing a trial of eating is reasonable. Speech therapy is working with him. 3. Sepsis syndrome-resolved 4. Respiratory failure-resolved 5. Nutritional deficiency-currently receiving TPN. If he was able to regain the swallowing ability or the use of his gut for enteral feeding that he could potentially go to a acute rehab instead of an LTAC. Plan 1. Speech therapy may attempt feeding tomorrow. 2. Encephalopathy will hopefully improve as activity is gradually increased. I encouraged him to increase his activity even in the bed. 3. Continue with physical and occupational therapy efforts at increasing activity. 4. No evidence for stroke. Subjective I hurt all over. My belly does not hurt. Objective Vital Signs Date Time Temp Pulse Resp B/P (MAP) Pulse Ox O2 Delivery O2 Flow Rate FiO2 11/08/19 16:23 Room Air 11/08/19 15:00 98.0 99 20 130/88 (102) 99 98.0 Intake and Output 11/08/19 06:59 Intake Total 0 ml Output Total 1900 ml Balance -1900 ml Intake Oral 0 ml Output Urine Total 1900 ml PHYSICAL EXAM He was alert, awake and cooperative. There was a delay when I would verbalize until he responded. He was able to follow commands reliably. The eyes were conjugate and face symmetric. Movements were symmetric and well coordinated with [id number] and fine tapping. There was no arm drift. Review of Relevant I have reviewed the following items blaze (where applicable) has been applied. Labs Laboratory Tests Test 11/06/19 18:36 11/06/19 20:57 11/07/19 00:28 11/07/19 04:15 Glucose (Fingerstick) 156 mg/dL (70-99) 198 mg/dL (70-99) 205 mg/dL (70-99) White Blood Count 6.5 x10^3/uL (4.0-11.0) Red Blood Count 3.60 x10^6/uL (4.30-5.70) Hemoglobin 8.7 g/dL (13.0-17.5) Hematocrit 27.5 % (39.0-53.0) Mean Corpuscular Volume 76 fL (79-100) Mean Corpuscular Hemoglobin 24 pg (25-35) Mean Corpuscular Hemoglobin Concent 32 g/dL (31-37) Red Cell Distribution Width 22.5 % (11.5-14.5) Platelet Count 363 x10^3/uL (140-400) Neutrophils (%) (Auto) 68 % (31-73) Lymphocytes (%) (Auto) 17 % (24-48) Monocytes (%) (Auto) 12 % (0-9) Eosinophils (%) (Auto) 3 % (0-3) Basophils (%) (Auto) 1 % (0-3) Neutrophils # (Auto) 4.4 x10^3/uL (1.8-7.7) Lymphocytes # (Auto) 1.1 x10^3/uL (1.0-4.8) Monocytes # (Auto) 0.8 x10^3/uL (0.0-1.1) Eosinophils # (Auto) 0.2 x10^3/uL (0.0-0.7) Basophils # (Auto) 0.1 x10^3/uL (0.0-0.2) Sodium Level 142 mmol/L (136-145) Potassium Level 4.5 mmol/L (3.5-5.1) Chloride Level 109 mmol/L (98-107) Carbon Dioxide Level 21 mmol/L (21-32) Anion Gap 12 (6-14) Blood Urea Nitrogen 20 mg/dL (8-26) Creatinine 0.9 mg/dL (0.7-1.3) Estimated GFR (Cockcroft-Gault) 89.3 BUN/Creatinine Ratio 22 (6-20) Glucose Level 222 mg/dL (70-99) Calcium Level 8.4 mg/dL (8.5-10.1) Phosphorus Level 4.0 mg/dL (2.6-4.7) Magnesium Level 2.1 mg/dL (1.8-2.4) Total Bilirubin 0.4 mg/dL (0.2-1.0) Aspartate Amino Transf (AST/SGOT) 83 U/L (15-37) Alanine Aminotransferase (ALT/SGPT) 121 U/L (16-63) Alkaline Phosphatase 196 U/L (46-116) Total Protein 5.8 g/dL (6.4-8.2) Albumin 2.0 g/dL (3.4-5.0) Albumin/Globulin Ratio 0.5 (1.0-1.7) Test 11/07/19 06:12 11/07/19 11:37 11/07/19 21:57 11/08/19 06:27 Glucose (Fingerstick) 226 mg/dL (70-99) 189 mg/dL (70-99) 158 mg/dL (70-99) 158 mg/dL (70-99) Test 11/08/19 08:25 11/08/19 12:01 Glucose (Fingerstick) 167 mg/dL (70-99) 205 mg/dL (70-99) Laboratory Tests Test 11/07/19 21:57 11/08/19 06:27 11/08/19 08:25 11/08/19 12:01 Glucose (Fingerstick) 158 mg/dL (70-99) 158 mg/dL (70-99) 167 mg/dL (70-99) 205 mg/dL (70-99) Microbiology 11/04/19 Blood Culture - Final, Complete 11/04/19 Antimicrobic Susceptibility - Final, Complete 10/30/19 Urine Culture - Final, Complete Medications Current Medications Midazolam HCl 100 ml @ 1 mls/hr 1X ONCE IV Last administered on 10/30/19at 10:40; Start 10/30/19 at 10:30; Stop 11/01/19 at 08:11; Status DC Midazolam HCl 50 mg/Sodium Chloride 50 ml @ 0 mls/hr 1X ONCE IV ; Start 10/30/19 at 10:30; Stop 10/30/19 at 10:31; Status UNV Etomidate (Amidate) 20 mg 1X ONCE IV Last administered on 10/30/19at 10:38; Start 10/30/19 at 10:30; Stop 10/30/19 at 10:32; Status DC Succinylcholine Chloride (Anectine) 100 mg 1X ONCE IV Last administered on 10/30/19at 10:38; Start 10/30/19 at 10:30; Stop 10/30/19 at 10:32; Status DC Norepinephrine Bitartrate 8 mg/ Dextrose 258 ml @ 13.177 mls/ hr 1X ONCE IV Last administered on 10/30/19at 10:39; Start 10/30/19 at 10:25; Stop 10/31/19 at 05:59; Status DC Piperacillin Sod/ Tazobactam Sod 3.375 gm/Sodium Chloride 50 ml @ 100 mls/hr 1X ONCE IV Last administered on 10/30/19at 10:42; Start 10/30/19 at 11:00; Stop 10/30/19 at 11:29; Status DC Rocuronium [place] (Zemuron) 10 mg 1X ONCE IV ; Start 10/30/19 at 10:45; Stop 10/30/19 at 10:46; Status Cancel Sodium Chloride 1,000 ml @ 1,000 mls/hr 1X ONCE IV Last administered on 10/30/19at 10:43; Start 10/30/19 at 10:45; Stop 10/30/19 at 11:44; Status DC Sodium Chloride 1,000 ml @ 1,000 mls/hr 1X ONCE IV Last administered on 10/30/19at 10:43; Start 10/30/19 at 10:45; Stop 10/30/19 at 11:44; Status DC Rocuronium [place] (Zemuron) 50 mg 1X ONCE IV Last administered on 10/30/19at 10:45; Start 10/30/19 at 10:45; Stop 10/30/19 at 10:46; Status DC Potassium Chloride/Water 100 ml @ 100 mls/hr Q1H IV Last administered on 10/30/19at 12:56; Start 10/30/19 at 12:00; Stop 10/30/19 at 13:59; Status DC Insulin Human Regular 100 ml @ 0 mls/hr 1X ONCE IV Last administered on 10/30/19at 12:55; Start 10/30/19 at 12:00; Stop 10/30/19 at 12:01; Status DC Sodium Chloride 1,000 ml @ 1,000 mls/hr 1X ONCE IV Last administered on 10/30/19at 12:45; Start 10/30/19 at 12:15; Stop 10/30/19 at 13:14; Status DC Ondansetron HCl (Zofran) 4 mg PRN Q8HRS PRN IV NAUSEA/VOMITING; Start 10/30/19 at 12:30; Stop 10/31/19 at 12:29; Status DC Sodium Chloride 1,000 ml @ 125 mls/hr Q8H IV Last administered on 10/30/19at 15:20; Start 10/30/19 at 12:25; Stop 10/31/19 at 07:13; Status DC Dexmedetomidine HCl 400 mcg/ Sodium Chloride 100 ml @ 0 mls/hr CONT PRN IV SEE COMMENTS Last administered on 11/04/19at 06:04; Start 10/30/19 at 15:00; Stop 11/06/19 at 11:25; Status DC Fentanyl Citrate (Fentanyl 2ml Vial) 25 mcg PRN Q1HR PRN IV PAIN; Start 10/30/19 at 15:00; Status UNV Lorazepam (Ativan Inj) 0.5 mg PRN Q2HRS PRN IV AGITATION; Start 10/30/19 at 15:00; Status UNV Sodium Chloride 500 ml @ 500 mls/hr 1X PRN PRN IV COMMENTS; Start 10/30/19 at 15:00 Atropine Sulfate (ATROPINE 0.5mg SYRINGE) 0.5 mg PRN Q5MIN PRN IV SEE COMMENTS; Start 10/30/19 at 15:00 Midazolam HCl 100 ml @ 1 mls/hr CONT PRN IV SEE COMMENTS Last administered on 11/02/19at 08:30; Start 10/30/19 at 17:00; Stop 11/06/19 at 11:25; Status DC Pantoprazole Sodium (PROTONIX VIAL for IV PUSH) 40 mg DAILYAC IVP Last administered on 10/31/19at 07:23; Start 10/31/19 at 07:30; Stop 10/31/19 at 11:55; Status DC Pantoprazole Sodium (PROTONIX VIAL for IV PUSH) 40 mg 1X ONCE IVP Last admini stered on 10/30/19at 22:00; Start 10/30/19 at 18:45; Stop 10/30/19 at 18:47; Status DC Phytonadione (Vitamin K Ampule) 5 mg 1X ONCE SQ Last administered on 10/30/19at 20:01; Start 10/30/19 at 18:45; Stop 10/30/19 at 18:47; Status DC Fentanyl Citrate 30 ml @ 0 mls/hr CONT PRN IV SEE PROTOCOL Last administered on 11/04/19at 06:15; Start 10/30/19 at 19:00; Stop 11/06/19 at 11:26; Status DC Dextrose/Sodium Chloride 1,000 ml @ 250 mls/hr Q4H IV Last administered on 11/01/19at 12:40; Start 10/30/19 at 19:30; Stop 11/01/19 at 17:29; Status DC Potassium Phosphate 13.6 mmol/Sodium Chloride 254.5333 ml @ 127.... Q2H IV Last administered on 10/30/19at 22:00; Start 10/30/19 at 20:00; Stop 10/30/19 at 23:59; Status DC Piperacillin Sod/ Tazobactam Sod 2.25 gm/Sodium Chloride 50 ml @ 100 mls/hr Q6HRS IV Last administered on 10/31/19at 12:28; Start 10/31/19 at 00:00; Stop 10/31/19 at 14:01; Status DC Daptomycin 540 mg/ Sodium Chloride 50 ml @ 100 mls/hr ONCE ONCE IV Last administered on 10/30/19at 22:09; Start 10/30/19 at 22:00; Stop 10/30/19 at 22:29; Status DC Norepinephrine Bitartrate 8 mg/ Dextrose 258 ml @ 17.554 mls/ hr CONT PRN IV PER PROTOCOL Last administered on 11/03/19at 00:09; Start 10/30/19 at 22:15; Stop 11/06/19 at 11:26; Status DC Potassium Chloride/Water 100 ml @ 100 mls/hr Q1H IV Last administered on 10/31/19at 01:30; Start 10/30/19 at 23:30; Stop 10/31/19 at 02:29; Status DC Dextrose (Dextrose 50%-Water Syringe) 25 gm PRN Q10MIN PRN IV HYPOGLYCEMIA Last administered on 10/31/19at 02:39; Start 10/31/19 at 02:30 Potassium Chloride/Water 100 ml @ 100 mls/hr Q1H IV Last administered on 10/31/19at 04:39; Start 10/31/19 at 03:30; Stop 10/31/19 at 05:29; Status DC Insulin Human Regular 100 unit/ Sodium Chloride 101 ml @ 0 mls/hr CONT PRN IV SEE I/O RECORD Last administered on 11/01/19at 14:58; Start 10/31/19 at 03:15; Stop 11/04/19 at 08:38; Status DC Potassium Chloride/Water 100 ml @ 100 mls/hr Q1H IV Last administered on 10/31/19at 08:27; Start 10/31/19 at 07:30; Stop 10/31/19 at 09:29; Status DC Potassium Phosphate 13.6 mmol/Sodium Chloride 254.5333 ml @ 127.... Q2H IV Last administered on 10/31/19at 13:18; Start 10/31/19 at 11:00; Stop 10/31/19 at 14:59; Status DC Pantoprazole Sodium (PROTONIX VIAL for IV PUSH) 40 mg [id number] IVP Last administ ered on 11/04/19at 06:07; Start 10/31/19 at 18:00; Stop 11/04/19 at 16:29; Status DC Phytonadione (Vitamin K Ampule) 10 mg 1X ONCE SQ Last administered on 10/31/19at 12:29; Start 10/31/19 at 12:00; Stop 10/31/19 at 12:01; Status DC Linezolid/Dextrose 300 ml @ 300 mls/hr Q12HR IV Last administered on 11/02/19at 08:13; Start 10/31/19 at 14:00; Stop 11/02/19 at 08:50; Status DC Piperacillin Sod/ Tazobactam Sod 3.375 gm/Sodium Chloride 50 ml @ 100 mls/hr Q6HRS IV Last administered on 10/31/19at 18:06; Start 10/31/19 at 18:00; Stop 10/31/19 at 18:32; Status DC Acetaminophen (Tylenol Supp) 650 mg PRN Q6HRS PRN ND MILD PAIN / TEMP > 100.3'F Last administered on 11/04/19at 00:18; Start 10/31/19 at 16:00 Potassium Chloride/Water 100 ml @ 100 mls/hr Q1H IV Last administered on 10/31/19at 19:07; Start 10/31/19 at 18:00; Stop 10/31/19 at 19:59; Status DC Magnesium Sulfate 100 ml @ 25 mls/hr 1X ONCE IV Last administered on 10/31/19at 18:07; Start 10/31/19 at 18:00; Stop 10/31/19 at 21:59; Status DC Meropenem 500 mg/ Sodium Chloride 50 ml @ 100 mls/hr Q6HRS IV Last administered on 11/08/19at 11:52; Start 11/01/19 at 00:00 Potassium Chloride/Water 100 ml @ 100 mls/hr Q1H IV Last administered on 10/31/19at 23:45; Start 10/31/19 at 22:00; Stop 10/31/19 at 23:59; Status DC Potassium Chloride/Water 100 ml @ 100 mls/hr Q1H IV Last administered on 11/01/19at 03:45; Start 11/01/19 at 02:45; Stop 11/01/19 at 04:44; Status DC Potassium Phosphate 15 mmol/ Sodium Chloride 255 ml @ 62.5 mls/hr 1X ONCE IV Last administered on 11/01/19at 02:48; Start 11/01/19 at 02:45; Stop 11/01/19 at 06:49; Status DC Potassium Phosphate 13.6 mmol/Sodium Chloride 254.5333 ml @ 127.... 1X ONCE IV Last administered on 11/01/19at 09:17; Start 11/01/19 at 09:00; Stop 11/01/19 at 10:59; Status DC Info (Tpn Per Pharmacy) 1 each PRN DAILY PRN MC SEE COMMENTS Last administered on 11/08/19at 11:17; Start 11/01/19 at 11:00 Sodium Acetate 90 meq/Potassium Chloride 50 meq/ Potassium Phosphate 13.6 mmol/Magnesium Sulfate 10 meq/ Calcium Gluconate 10 meq/ Multivitamins 10 ml/Chromium/ Copper/Manganese/ Seleni/Zn 1 ml/ Total Parenteral Nutrition/Amino Acids/Dextrose/ Fat Emulsion Intravenous 1,512 ml @ 63 mls/hr TPN CONT IV Last administered on 11/01/19at 21:26; Start 11/01/19 at 22:00; Stop 11/02/19 at 21:59; Status DC Potassium Phosphate 13.6 mmol/Sodium Chloride 254.5333 ml @ 127.... 1X ONCE IV Last administered on 11/01/19at 13:06; Start 11/01/19 at 13:00; Stop 11/01/19 at 14:59; Status DC Insulin Glargine (Lantus Syringe) 20 unit 1X ONCE SQ Last administered on 11/01/19at 17:45; Start 11/01/19 at 18:00; Stop 11/01/19 at 18:01; Status DC Insulin Glargine (Lantus Syringe) 20 unit BID SQ Last administered on 11/08/19at 09:41; Start 11/02/19 at 09:00 Insulin Human Lispro (HumaLOG) 0-7 UNITS Q6HRS SQ Last administered on 11/08/19at 12:05; Start 11/02/19 at 00:00 Dextrose (Dextrose 50%-Water Syringe) 12.5 gm PRN Q15MIN PRN IV SEE COMMENTS; Start 11/01/19 at 17:30 Magnesium Sulfate 100 ml @ 25 mls/hr 1X ONCE IV Last administered on 11/01/19at 17:46; Start 11/01/19 at 18:00; Stop 11/01/19 at 21:59; Status DC Sodium Chloride 1,000 ml @ 125 mls/hr Q8H IV Last administered on 11/01/19at 17:45; Start 11/01/19 at 18:00; Status Hold Sodium Phosphate 15 mmol/Sodium Chloride 105 ml @ 105 mls/hr 1X ONCE IV Last administered on 11/02/19at 08:36; Start 11/02/19 at 09:00; Stop 11/02/19 at 09:59; Status DC Clindamycin Phosphate 50 ml @ 100 mls/hr Q8HRS IV Last administered on 11/04/19at 06:05; Start 11/02/19 at 14:00; Stop 11/04/19 at 06:59; Status DC Sodium Acetate 70 meq/Sodium Phosphate 18 mmol/ Potassium Chloride 50 meq/ Magnesium Sulfate 10 meq/Calcium Gluconate 10 meq/ Multivitamins 10 ml/Chromium/ Copper/Manganese/ Seleni/Zn 1 ml/ Total Parenteral Nutrition/Amino Acids/Dextrose/ Fat Emulsion Intravenous 1,512 ml @ 63 mls/hr TPN CONT IV Last administered on 11/02/19at 21:48; Start 11/02/19 at 22:00; Stop 11/03/19 at 21:59; Status DC Sodium Acetate 70 meq/Sodium Phosphate 24 mmol/ Potassium Chloride 50 meq/ Magnesium Sulfate 16 meq/Calcium Gluconate 10 meq/ Multivitamins 10 ml/Chromium/ Copper/Manganese/ Seleni/Zn 1 ml/ Total Parenteral Nutrition/Amino Acids/Dextrose/ Fat Emulsion Intravenous 1,512 ml @ 63 mls/hr TPN CONT IV Last administered on 11/03/19at 21:17; Start 11/03/19 at 22:00; Stop 11/04/19 at 21:59; Status DC Daptomycin 450 mg/ Sodium Chloride 50 ml @ 100 mls/hr Q24H IV ; Start 11/04/19 at 09:00; Stop 11/04/19 at 07:23; Status DC Micafungin Sodium 100 mg/Dextrose 100 ml @ 100 mls/hr Q24H IV Last administered on 11/08/19at 08:25; Start 11/04/19 at 08:00 Linezolid/Dextrose 300 ml @ 300 mls/hr Q12HR IV Last administered on 11/08/19at 09:36; Start 11/04/19 at 09:00 Sodium Acetate 70 meq/Sodium Phosphate 24 mmol/ Potassium Chloride 50 meq/ Magnesium Sulfate 16 meq/Calcium Gluconate 10 meq/ Multivitamins 10 ml/Chromium/ Copper/Manganese/ Seleni/Zn 1 ml/ Total Parenteral Nutrition/Amino Acids/Dextrose/ Fat Emulsion Intravenous 1,800 ml @ 75 mls/hr TPN CONT IV Last administered on 11/04/19at 21:11; Start 11/04/19 at 22:00; Stop 11/05/19 at 21:59; Status DC Albuterol Sulfate (Ventolin Neb Soln) 2.5 mg PRN Q4HRS PRN NEB WHEEZING; Start 11/04/19 at 16:30 Docusate Sodium (Colace) 100 mg PRN BID PRN PO HARD STOOLS; Start 11/04/19 at 16:30 Lactobacillus Rhamnosus (Culturelle) 1 cap BID PO Last administered on 11/05/19at 09:03; Start 11/04/19 at 21:00 Lisinopril (Prinivil) 5 mg DAILY PO Last administered on 11/05/19at 09:03; Start 11/05/19 at 09:00 Pantoprazole Sodium (Protonix) 40 mg DAILYAC PO Last administered on 11/05/19at 09:03; Start 11/05/19 at 07:30 Potassium Chloride (Klor-Con) 20 meq DAILYWBKFT PO ; Start 11/05/19 at 08:00 Non-Formulary Medication (Doxepin Hcl ) 300 mg HS PO ; Start 11/04/19 at 21:00 [place] Carbonate (Lithobid) 300 mg BID PO Last administered on 11/05/19at 09:03; Start 11/04/19 at 21:00 Tizanidine HCl (Zanaflex) 4 mg PRN Q8HRS PRN PO MUSCLE SPASMS; Start 11/04/19 at 16:45 Clonazepam (KlonoPIN) 1 mg PRN BID PRN PO ANXIETY / AGITATION; Start 11/04/19 at 16:30 Acetaminophen (Tylenol) 650 mg PRN Q6HRS PRN PO MILD PAIN / TEMP > 100.3'F; Start 11/04/19 at 16:30 Nystatin (Nystop) 1 [place] BID TP Last administered on 11/08/19at 08:24; Start 11/04/19 at 21:00 Sodium Acetate 70 meq/Sodium Phosphate 12 mmol/ Potassium Chloride 50 meq/ Magnesium Sulfate 16 meq/Calcium Gluconate 10 meq/ Multivitamins 10 ml/Chromium/ Copper/Manganese/ Seleni/Zn 1 ml/ Insulin Human Regular 10 unit/ Total Parenteral Nutrition/Amino Acids/Dextrose/ Fat Emulsion Intravenous 1,800 ml @ 75 mls/hr TPN CONT IV Last administered on 11/05/19at 22:32; Start 11/05/19 at 22:00; Stop 11/06/19 at 21:59; Status DC Sodium Acetate 70 meq/Sodium Phosphate 12 mmol/ Potassium Chloride 50 meq/ M agnesium Sulfate 16 meq/Calcium Gluconate 10 meq/ Multivitamins 10 ml/Chromium/ Copper/Manganese/ Seleni/Zn 1 ml/ Insulin Human Regular 15 unit/ Total Parenteral Nutrition/Amino Acids/Dextrose/ Fat Emulsion Intravenous 1,800 ml @ 75 mls/hr TPN CONT IV Last administered on 11/07/19at 05:55; Start 11/06/19 at 22:00; Stop 11/07/19 at 21:59; Status DC Hydralazine HCl (Apresoline Inj) 10 mg PRN Q6HRS PRN IVP ELEVATED BP, SEE COMMENTS; Start 11/06/19 at 17:00 Sodium Acetate 70 meq/Sodium Phosphate 12 mmol/ Potassium Chloride 50 meq/ Magnesium Sulfate 16 meq/Calcium Gluconate 10 meq/ Multivitamins 10 ml/Chromium/ Copper/Manganese/ Seleni/Zn 1 ml/ Insulin Human Regular 15 unit/ Total Parenteral Nutrition/Amino Acids/Dextrose/ Fat Emulsion Intravenous 1,800 ml @ 75 mls/hr TPN CONT IV Last administered on 11/07/19at 22:00; Start 11/07/19 at 22:00; Stop 11/08/19 at 21:59 Morphine Sulfate (Morphine Sulfate) 4 mg PRN Q2HR PRN IV PAIN Last administered on 11/08/19at 16:23; Start 11/07/19 at 18:45 Sodium Acetate 70 meq/Sodium Phosphate 12 mmol/ Potassium Chloride 50 meq/ Magnesium Sulfate 16 meq/Calcium Gluconate 10 meq/ Multivitamins 10 ml/Chromium/ Copper/Manganese/ Seleni/Zn 1 ml/ Insulin Human Regular 15 unit/ Total Parenteral Nutrition/Amino Acids/Dextrose/ Fat Emulsion Intravenous 1,800 ml @ 75 mls/hr TPN CONT IV ; Start 11/08/19 at 22:00; Stop 11/09/19 at 21:59 Active Scripts Active Humalog (Insulin Lispro) 100 Unit/1 Ml Insuln.pen 0 Units SQ QIDACHS 14 Days Culturelle (Lactobacillus Rhamnosus Gg) 1 Each Cap.sprink 1 Cap PO BID 30 Days Pantoprazole Sodium (Pantoprazole Sodium) 40 Mg Tablet.dr 40 Mg PO DAILYAC 30 Days Dok (Docusate Sodium) 100 Mg Capsule 100 Mg PO PRN BID PRN 30 Days Klor-Con M20 (Potassium Chloride) 20 Meq Tab.er.prt 20 Meq PO DAILYWBKFT 14 Days Proair Hfa (Albuterol Sulfate) 8.5 Gm Hfa.aer.ad 2.5 Mg NEB PRN Q4HRS PRN 14 Days Reported Clindamycin Hcl 300 Mg Capsule 600 Mg PO BID Lidocaine PATCH (Lidocaine) 1 Each Adh..patch 1 Each TP DAILY REMOVE AFTER 12 HOURS Lisinopril 5 Mg Tablet 1 Tab PO DAILY Clonazepam 1 Mg Tablet 1 Mg PO BID [place] Carbonate 300 Mg Tablet 1 Tab PO BID Zanaflex (Tizanidine Hcl) 4 Mg Capsule 1 Cap PO TID PRN Janumet 50-1,000 Mg Tablet (Sitagliptin Phos/Metformin Hcl) 1 Each Tablet 1 Tab PO BID Doxepin Hcl 50 Mg Capsule 300 Mg PO HS Vitals/I & O Vital Sign - Last 24 Hours 11/07/19 11/07/19 11/07/19 11/07/19 19:00 19:30 22:15 23:00 Temp 98.5 98.5 Pulse 97 Resp 18 B/P (MAP) 156/111 (126) Pulse Ox 99 99 99 O2 Delivery Room Air Room Air Room Air Room Air 11/07/19 11/08/19 11/08/19 11/08/19 23:00 03:00 03:52 04:30 Temp 98.2 98.0 98.2 98.0 Pulse 99 98 Resp 18 18 B/P (MAP) 165/99 (121) 162/110 (127) Pulse Ox 96 99 99 99 O2 Delivery Room Air Room Air Room Air Room Air 11/08/19 11/08/19 11/08/19 11/08/19 07:00 07:55 11:00 11:53 Temp 98.1 98.3 98.1 98.3 Pulse 99 97 Resp 18 16 B/P (MAP) 135/108 (117) 156/110 (125) Pulse Ox 100 99 O2 Delivery Room Air Room Air Room Air Room Air 11/08/19 11/08/19 11/08/19 12:25 15:00 16:23 Temp 98.0 98.0 Pulse 99 Resp 20 B/P (MAP) 130/88 (102) Pulse Ox 99 O2 Delivery Room Air Room Air Room Air Intake and Output 11/07/19 11/07/19 11/08/19 14:59 22:59 06:59 Intake Total 0 ml 0 ml Output Total 900 ml 1000 ml Balance 0 ml -900 ml -1000 ml Justicifation of Admission Dx: Justifications for Admission: Justification of Admission Dx: Yes Comminuty Aquired Pneumonia: Hemodynamic Instability Acute Renal Failure: RF Can't Be Managed Outpt Sepsis: Altered Mental Status DKA: SUNITHA WINTER MD Nov 08, 2019 16:54
--- NOTE | 2019-11-08 16:56 | NUR ---
SANDOVAL following. Coordinated care with RN and reviewed chart. SANDOVAL faxed updated clinicals to Faiza at [facility]. SANDOVAL waiting on a bed and Faiza stated a bed will likely be available tomorrow, 11/09/2019. SANDOVAL to continue following. Addendum: 11/08/19 at 1711 by IMCHOACANO NICK SANDOVAL contacted by pt's asking about insurance approval for LTACH. SANDOVAL provided contact number for [facility].
[2019-11-08 19:00] VITALS: BP 131/94
[2019-11-08] MEDS: DOXEPIN 150 MG PO SCH (20:38)
[2019-11-08] MEDS ORDERED: TOTAL PARENTERAL NUTRITION IV SCH ×11 (22:00)
[2019-11-08] MEDS ORDERED: AMINO ACID IV SCH ×11 (22:00)
[2019-11-08] MEDS ORDERED: [UNRECOGNIZED DRUG - OTHER] IV SCH ×11 (22:00)
[2019-11-08] MEDS ORDERED: DEXTROSE 70% IV SCH ×11 (22:00)
[2019-11-08 23:00] VITALS: BP 122/84
[2019-11-09] MEDS: MEROPENEM 500 MG in IV NORMAL SALINE 50ML 50 ML IV SCH ×5 (00:36→23:24)
[2019-11-09 03:00] VITALS: BP 132/82
[2019-11-09] MEDS: MORPHINE SULFATE 4 MG/ML VIAL. IV PRN ×7 (04:20→23:25)
[2019-11-09 04:28] LABS: CALCIUM 8.1 mg/dL (8.5-10.1); CREATININE 0.8 mg/dL (0.7-1.3); GFR 102.3; MAGNESIUM 2.3 mg/dL (1.8-2.4); PHOSPHORUS 3.8 mg/dL (2.6-4.7); POTASSIUM 3.7 mmol/L (3.5-5.1)
[2019-11-09] MEDS: INSULIN LISPRO 300 UNITS/3 ML VIAL. SQ SCH ×4 (06:29→17:11)
[2019-11-09 07:15] VITALS: BP 148/96
[2019-11-09] MEDS: PANTOPRAZOLE 40 MG TABLET.DR. PO SCH (07:30)
[2019-11-09] MEDS: POTASSIUM CHLORIDE 20 MEQ TABLET.ER. PO SCH (08:00)
[2019-11-09] MEDS: MICAFUNGIN 100 MG in IV DEXTROSE 5% 100ML 100 ML IV SCH (08:34)
[2019-11-09] MEDS: LACTOBACILLUS RHAMNOSUS GG 1 CAPSULE. PO SCH ×2 (08:45→20:09)
[2019-11-09] MEDS: LISINOPRIL 5 MG TABLET. PO SCH (08:45)
[2019-11-09] MEDS: LITHIUM CARBONATE ER 300 MG TABLET.ER PO SCH ×2 (08:45→20:09)
[2019-11-09] MEDS: NYSTATIN TOPICAL POWDER 15GM BOTTLE. TP SCH ×2 (09:56→20:17)
[2019-11-09] MEDS: INSULIN GLARGINE SYRINGE. SQ SCH ×2 (10:03→20:27)
--- NOTE | 2019-11-09 10:45 | PDOC ---
PULMONARY PROGRESS NOTES Subjective extubated 11/03 doing well ,on RA Vitals Vital Signs Date Time Temp Pulse Resp B/P (MAP) Pulse Ox O2 Delivery O2 Flow Rate FiO2 11/09/19 09:15 Room Air 11/09/19 07:15 98.1 93 18 148/96 (113) 100 98.1 General: Alert, No acute distress Lungs: Clear Cardiovascular: S1 Abdomen: Soft, Other Extremities: No Edema Skin: Warm Labs Laboratory Tests Test 11/07/19 11:37 11/07/19 21:57 11/08/19 06:27 11/08/19 08:25 Glucose (Fingerstick) 189 mg/dL (70-99) 158 mg/dL (70-99) 158 mg/dL (70-99) 167 mg/dL (70-99) Test 11/08/19 12:01 11/08/19 18:16 11/09/19 00:31 11/09/19 03:30 Glucose (Fingerstick) 205 mg/dL (70-99) 121 mg/dL (70-99) 181 mg/dL (70-99) Sodium Level 133 mmol/L (136-145) Potassium Level 3.7 mmol/L (3.5-5.1) Chloride Level 107 mmol/L (98-107) Carbon Dioxide Level 17 mmol/L (21-32) Anion Gap 9 (6-14) Blood Urea Nitrogen 21 mg/dL (8-26) Creatinine 0.8 mg/dL (0.7-1.3) Estimated GFR (Cockcroft-Gault) 102.3 Glucose Level 179 mg/dL (70-99) Calcium Level 8.1 mg/dL (8.5-10.1) Phosphorus Level 3.8 mg/dL (2.6-4.7) Magnesium Level 2.3 mg/dL (1.8-2.4) Test 11/09/19 06:20 11/09/19 09:31 Glucose (Fingerstick) 152 mg/dL (70-99) 138 mg/dL (70-99) Laboratory Tests Test 11/08/19 12:01 11/08/19 18:16 11/09/19 00:31 11/09/19 03:30 Glucose (Fingerstick) 205 mg/dL (70-99) 121 mg/dL (70-99) 181 mg/dL (70-99) Sodium Level 133 mmol/L (136-145) Potassium Level 3.7 mmol/L (3.5-5.1) Chloride Level 107 mmol/L (98-107) Carbon Dioxide Level 17 mmol/L (21-32) Anion Gap 9 (6-14) Blood Urea Nitrogen 21 mg/dL (8-26) Creatinine 0.8 mg/dL (0.7-1.3) Estimated GFR (Cockcroft-Gault) 102.3 Glucose Level 179 mg/dL (70-99) Calcium Level 8.1 mg/dL (8.5-10.1) Phosphorus Level 3.8 mg/dL (2.6-4.7) Magnesium Level 2.3 mg/dL (1.8-2.4) Test 11/09/19 06:20 11/09/19 09:31 Glucose (Fingerstick) 152 mg/dL (70-99) 138 mg/dL (70-99) Medications Active Scripts Medications Dose Route/Sig Max Daily Dose Days Date Category Dose Instructions Humalog (Insulin Lispro) 100 Unit/1 Ml Insuln.pen 0 Units SQ QIDACHS 09/16/19 Rx Culturelle (Lactobacillus Rhamnosus Gg) 1 Each Cap.sprink 1 Cap PO BID 30 09/16/19 Rx Pantoprazole Sodium (Pantoprazole Sodium) 40 Mg Tablet.dr 40 Mg PO DAILYAC 30 09/16/19 Rx Dok (Docusate Sodium) 100 Mg Capsule 100 Mg PO PRN BID PRN 30 09/16/19 Rx Klor-Con M20 (Potassium Chloride) 20 Meq Tab.er.prt 20 Meq PO DAILYWBKFT 14 09/16/19 Rx Proair Hfa (Albuterol Sulfate) 8.5 Gm Hfa.aer.ad 2.5 Mg NEB PRN Q4HRS PRN 09/16/19 Rx Clindamycin Hcl 300 Mg Capsule 600 Mg PO BID 09/11/19 Reported Lidocaine PATCH (Lidocaine) 1 Each Adh..patch 1 Each TP DAILY 03/12/19 Reported REMOVE AFTER 12 HOURS Lisinopril 5 Mg Tablet 1 Tab PO DAILY PRN 03/12/19 Reported Clonazepam 1 Mg Tablet 1 Mg PO BID 03/12/19 Reported Chardon Carbonate 300 Mg Tablet 1 Tab PO BID 08/08/18 Reported Zanaflex (Tizanidine Hcl) 4 Mg Capsule 1 Cap PO TID PRN 08/25/15 Reported Janumet 50-1,000 Mg Tablet (Sitagliptin Phos/Metformin Hcl) 1 Each Tablet 1 Tab PO BID 01/17/15 Reported Doxepin Hcl 50 Mg Capsule 300 Mg PO HS 01/17/15 Reported Comments cxr 10/31 reviewed. no ptx BLOOD CULTURE LC Final Final GRAM POSITIVE COCCI FINAL ID= [STAPHYLOCOCCUS HAEMOLYTICUS MR] STAPHYLOCOCCUS HAEMOLYTICUS MR ANTIMICROBIAL SUSCEPTIBILITY Final Comment POS ARIANA TYPE 38 STAPHYLOCOCCUS HAEMOLYTICUS MR ANTIBIOTIC RESULT INTERPRETATION AZITHROMYCIN >4 R CLINDAMYCIN >4 R CIPROFLOXACIN >2 R DAPTOMYCIN <=0.5 S ERYTHROMYCIN >4 R GENTAMICIN >8 R LINEZOLID <=1 S LEVOFLOXACIN >4 R OXACILLIN >2 R PENICILLIN >2 R RIFAMPIN <=1 S TRIMETHOPRIM/SULFAMETHOXAZOLE >2 R TETRACYCLINE >8 R VANCOMYCIN 1 S Unless otherwise specified, Testing Performed by: [address] [address] For Inquires, the Physician may contact the Microbiology department at [phone] Impression . IMPRESSION: 1. Acute hypoxemic respiratory failure secondary to acute metabolic acidosis. extubated 11/03 2. Diabetic ketoacidosis. resolved 3. Septic shock.resolved 4. Bacteremia, gram-positive cocci, 1/3 bottles. FINAL ID= [STAPHYLOCOCCUS HAEMOLYTICUS MR] 5. Recent laparoscopic cholecystectomy. 6. Acute on chronic kidney injury. 7. COVID-19, suspect. 8. Tobacco dependent. 9. Chronic obstructive pulmonary disease, unknown FEV1. 10. Small left-sided pneumo small seen on ct abd, not seen on f/u cxr 10/31 11. New pseudocyst fluid collection, seen on CT abdomen, per GI. CT abdomen pelvis IMPRESSION: 1. Small moderate left pneumothorax, incompletely evaluated. 2. Interval development of a 6.3 cm pseudocyst along the pancreatic body. 3. Another 6 cm fluid collection along the medial aspect of the hepatic caudate lobe also likely reflects a pseudocyst. 4. Right colonic wall thickening. Correlate for colitis. 5. A rim calcified 10 mm mass along the left kidney medially may be a complicated cyst but is indeterminate. Sonographic follow-up could be performed in 6 months. Plan . Spoke with at bedside Doing well since extubated on RA PT/OT/ SPEECH to follow Follow GI input antibiotics per ID Monitor blood sugars Monitor H&H 10/31 chest x-ray shows no pneumothorax stable pulmonary status. will see HAMMAD VASQUEZ MD Nov 09, 2019 10:44
--- NOTE | 2019-11-09 10:52 | PDOC ---
Infectious Disease Note Subjective Subjective Cont to improve. Improving Appetite. No pain Eating better No F/C/S/N/V/rash + BM ROS ROS o/w neg Vital Sign Vital Signs Vital Signs Date Time Temp Pulse Resp B/P (MAP) Pulse Ox O2 Delivery O2 Flow Rate FiO2 11/09/19 09:15 Room Air 11/09/19 07:15 98.1 93 18 148/96 (113) 100 98.1 Physical Exam PHYSICAL EXAM GENERAL: Alert, in bed. NAD - looks better HEENT: Normocephalic, atraumatic, nml conj. OC/Op -clear NECK: Supple, no lymphadenopathy, no thyromegaly. LUNGS: Decreased breath sounds at the bases, otherwise, clear. HEART: S1, S2, tachycardia. No murmurs. ABDOMEN: Soft, nontender.Obese EXTREMITIES: No cyanosis, no clubbing, mild generalized edema. MUSCULOSKELETAL: Previous left knee surgery. Incision scar intact. No effusion. No surrounding erythema, no fluctuance. DERMATOLOGIC: Warm, dry. No generalized rash. NEUROLOGIC: Cooperative. Alert, oriented x3 Left subclavian - clean Labs Lab Laboratory Tests Test 11/08/19 12:01 11/08/19 18:16 11/09/19 00:31 11/09/19 03:30 Glucose (Fingerstick) 205 mg/dL (70-99) 121 mg/dL (70-99) 181 mg/dL (70-99) Sodium Level 133 mmol/L (136-145) Potassium Level 3.7 mmol/L (3.5-5.1) Chloride Level 107 mmol/L (98-107) Carbon Dioxide Level 17 mmol/L (21-32) Anion Gap 9 (6-14) Blood Urea Nitrogen 21 mg/dL (8-26) Creatinine 0.8 mg/dL (0.7-1.3) Estimated GFR (Cockcroft-Gault) 102.3 Glucose Level 179 mg/dL (70-99) Calcium Level 8.1 mg/dL (8.5-10.1) Phosphorus Level 3.8 mg/dL (2.6-4.7) Magnesium Level 2.3 mg/dL (1.8-2.4) Test 11/09/19 06:20 11/09/19 09:31 Glucose (Fingerstick) 152 mg/dL (70-99) 138 mg/dL (70-99) Micro CT head 11/05 Impression: 1. No acute intracranial abnormality. 2. Mild nonspecific white matter changes, most often due to chronic microvascular ischemia, unchanged. 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 Acute kidney injury with underlying CKD.- better Coagulopathy. Status post vitamin K Nausea and vomiting, chronically since last surgery with gallbladder. GI bleed Recent Pancreatitis, status post laparoscopic cholecystectomy on 09/14/2019.;now with pseudocyst/fluid collection Weight loss due to poor p.o. 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 Currently well healed. Hypertension. Bipolar disorder. Anemia Thrombocytopenia High BNP and troponin leak Intolerance to Daptomycin with nausea, tolerated it twice for weeks in the past Last year. on chronic suppressive clindamycin Plan Plan of Care Continue meropenem 10/31 through 11/10 Started linezolid 11/03 change to po continue through 11/13 and micafungin 11/03 through 11/16 DC Daptomycin 11/03 (allergy) f/u repeat blood culture Pulmonary ,hematology GI team following/Neurology Monitor labs Continue supportive care. Will need to restart prophylactic abx after IV discontinued Discussed with nursing staff and family VELIA NATH MD Nov 09, 2019 10:52
[2019-11-09 11:04] VITALS: BP 123/87
--- NOTE | 2019-11-09 11:20 | PDOC ---
[facility] PROGRESS NOTE Chief Complaint Chief Complaint Sepsis respiratory failure DKA Bacteremia, gram-positive cocci, 1/3 bottles. Recent laparoscopic cholecystectomy about 6 weeks ago Acute on chronic kidney injury. hypophosphatemia Elevated INR, likely secondary to DIC DM2 Small moderate left pneumothorax, incompletely evaluated. Interval development of a 6.3 cm pseudocyst along the pancreatic body. Another 6 cm fluid collection along the medial aspect of the hepatic caudate lobe also likely reflects a pseudocyst. Right colonic wall thickening. Correlate for colitis. rim calcified 10 mm mass along the left kidney medially may be a complicated cyst but is indeterminate. Sonographic follow-up could be performed in 6 months. severe protein-caloric malnutrition History of Present Illness History of Present Illness 11/09/2019 Patient seen and examined Resting in bed Strange BSD Speech seems to be improving Diet has advanced to Dysphagia III per ST Discussed with RN and patient's mother Chart reviewed 11/08/2019 Patient seen and examined Resting in bed Strange BSD TPN Discussed with RN and patient's mother Discussed with ST, states patient seems to be improving Chart reviewed 11/07/2019 Patient seen and examined Resting in bed Strange BSD Discussed with RN and patient's mother Chart reviewed 11/06/2019 Patient seen and examined Resting in bed Discussed with RN and patient's mother Chart reviewed 11/04/2019 Patient seen and examined in ICU Strange BSD NG tube intermittent suction remains critically ill Discussed with RN and patient's mother Chart reviewed Vitals/I&O Vitals/I&O: Vital Signs Date Time Temp Pulse Resp B/P (MAP) Pulse Ox O2 Delivery O2 Flow Rate FiO2 11/09/19 11:04 98.0 94 16 123/87 (99) 100 Room Air 98.0 I & O 11/08/19 11/08/19 11/09/19 15:00 23:00 07:00 Intake Total 0 ml Output Total 1400 ml 1000 ml Balance -1400 ml 0 ml -1000 ml Physical Exam Physical Exam: GENERAL: Alert, in bed. NAD - looks better HEENT: Normocephalic, atraumatic, nml conj. OC/Op -clear NECK: Supple, no lymphadenopathy, no thyromegaly. LUNGS: Decreased breath sounds at the bases, otherwise, clear. HEART: S1, S2, tachycardia. No murmurs. ABDOMEN: Soft, nontender.Obese EXTREMITIES: No cyanosis, no clubbing, mild generalized edema. MUSCULOSKELETAL: Previous left knee surgery. Incision scar intact. No effusion. No surrounding erythema, no fluctuance. DERMATOLOGIC: Warm, dry. No generalized rash. NEUROLOGIC: Cooperative. Alert, oriented x3 Left subclavian - clean General: Alert, Cooperative, No acute distress Heart: Normal S1, Normal S2 Lungs: Clear Abdomen: Soft, No tenderness, No masses Extremities: No clubbing, No cyanosis, No tenderness/swelling Skin: No rashes, No significant lesion Labs Labs: Laboratory Tests Test 11/08/19 12:01 11/08/19 18:16 11/09/19 00:31 11/09/19 03:30 Glucose (Fingerstick) 205 mg/dL (70-99) 121 mg/dL (70-99) 181 mg/dL (70-99) Sodium Level 133 mmol/L (136-145) Potassium Level 3.7 mmol/L (3.5-5.1) Chloride Level 107 mmol/L (98-107) Carbon Dioxide Level 17 mmol/L (21-32) Anion Gap 9 (6-14) Blood Urea Nitrogen 21 mg/dL (8-26) Creatinine 0.8 mg/dL (0.7-1.3) Estimated GFR (Cockcroft-Gault) 102.3 Glucose Level 179 mg/dL (70-99) Calcium Level 8.1 mg/dL (8.5-10.1) Phosphorus Level 3.8 mg/dL (2.6-4.7) Magnesium Level 2.3 mg/dL (1.8-2.4) Test 11/09/19 06:20 11/09/19 09:31 Glucose (Fingerstick) 152 mg/dL (70-99) 138 mg/dL (70-99) Assessment and Plan Assessmemt and Plan Problems Medical Problems: (1) DKA (diabetic ketoacidoses) Status: Acute (2) Hypokalemia Status: Acute (3) Respiratory failure Status: Acute (4) Severe sepsis Status: Acute (5) Suspected 2019-nCoV infection Status: Acute ASSESSMENT Sepsis respiratory failure DKA Bacteremia, gram-positive cocci, 1/3 bottles. Recent laparoscopic cholecystectomy about 6 weeks ago Acute on chronic kidney injury. hypophosphatemia Elevated INR, likely secondary to DIC DM2 Small moderate left pneumothorax, incompletely evaluated. Interval development of a 6.3 cm pseudocyst along the pancreatic body. Another 6 cm fluid collection along the medial aspect of the hepatic caudate lobe also likely reflects a pseudocyst. Right colonic wall thickening. Correlate for colitis. rim calcified 10 mm mass along the left kidney medially may be a complicated cyst but is indeterminate. Sonographic follow-up could be performed in 6 months. severe protein-caloric malnutrition PLAN [facility] Continue IV antibiotics per ID PT/OT/ST TPN Dysphagia III diet Encourage PO intake Wound care DVT prophylaxis Full Code Appreciate subspecialty input Comment Review of Relevant I have reviewed the following items blaze (where applicable) has been applied. Medications: Current Medications Medications (Trade) Dose Ordered Sig/Edilma Route PRN Reason Start Time Stop Time Status Last Admin Dose Admin Sodium Acetate 70 meq/Sodium Phosphate 12 mmol/ Potassium Chloride 50 meq/ Magnesium Sulfate 16 meq/Calcium Gluconate 10 meq/ Multivitamins 10 ml/Chromium/ Copper/Manganese/ Seleni/Zn 1 ml/ Insulin Human Regular 15 unit/ Total Parenteral Nutrition/Amino Acids/Dextrose/ Fat Emulsion Intravenous 1,800 ml @ 75 mls/hr TPN CONT IV 11/08/19 22:00 11/09/19 21:59 11/08/19 23:09 Justicifation of Admission Dx: Justifications for Admission: Justification of Admission Dx: Yes Comminuty Aquired Pneumonia: Hemodynamic Instability Acute Renal Failure: RF Can't Be Managed Outpt Sepsis: Altered Mental Status DKA: DKA VISHAL KATZ III DO Nov 09, 2019 11:20
[2019-11-09] MEDS: TPN PER PHARMACY MC PRN (13:25)
--- NOTE | 2019-11-09 14:01 | PDOC ---
G I PROGRESS NOTE Subjective Mom says trying to eat. No complaints. Physical Exam Lungs clear anteriorly. RRR Abdomen soft, not tender nor distended. Review of Relevant I have reviewed the following items blaze (where applicable) has been applied. Labs Laboratory Tests Test 11/07/19 21:57 11/08/19 06:27 11/08/19 08:25 11/08/19 12:01 Glucose (Fingerstick) 158 mg/dL (70-99) 158 mg/dL (70-99) 167 mg/dL (70-99) 205 mg/dL (70-99) Test 11/08/19 18:16 11/09/19 00:31 11/09/19 03:30 11/09/19 06:20 Glucose (Fingerstick) 121 mg/dL (70-99) 181 mg/dL (70-99) 152 mg/dL (70-99) Sodium Level 133 mmol/L (136-145) Potassium Level 3.7 mmol/L (3.5-5.1) Chloride Level 107 mmol/L (98-107) Carbon Dioxide Level 17 mmol/L (21-32) Anion Gap 9 (6-14) Blood Urea Nitrogen 21 mg/dL (8-26) Creatinine 0.8 mg/dL (0.7-1.3) Estimated GFR (Cockcroft-Gault) 102.3 Glucose Level 179 mg/dL (70-99) Calcium Level 8.1 mg/dL (8.5-10.1) Phosphorus Level 3.8 mg/dL (2.6-4.7) Magnesium Level 2.3 mg/dL (1.8-2.4) Test 11/09/19 09:31 11/09/19 12:22 Glucose (Fingerstick) 138 mg/dL (70-99) 167 mg/dL (70-99) Laboratory Tests Test 11/08/19 18:16 11/09/19 00:31 11/09/19 03:30 11/09/19 06:20 Glucose (Fingerstick) 121 mg/dL (70-99) 181 mg/dL (70-99) 152 mg/dL (70-99) Sodium Level 133 mmol/L (136-145) Potassium Level 3.7 mmol/L (3.5-5.1) Chloride Level 107 mmol/L (98-107) Carbon Dioxide Level 17 mmol/L (21-32) Anion Gap 9 (6-14) Blood Urea Nitrogen 21 mg/dL (8-26) Creatinine 0.8 mg/dL (0.7-1.3) Estimated GFR (Cockcroft-Gault) 102.3 Glucose Level 179 mg/dL (70-99) Calcium Level 8.1 mg/dL (8.5-10.1) Phosphorus Level 3.8 mg/dL (2.6-4.7) Magnesium Level 2.3 mg/dL (1.8-2.4) Test 11/09/19 09:31 11/09/19 12:22 Glucose (Fingerstick) 138 mg/dL (70-99) 167 mg/dL (70-99) Microbiology 11/04/19 Blood Culture - Final, Complete 11/04/19 Antimicrobic Susceptibility - Final, Complete 10/30/19 Urine Culture - Final, Complete Vitals/I & O Vital Sign - Last 24 Hours 11/08/19 11/08/19 11/08/19 11/08/19 15:00 16:23 17:00 19:00 Temp 98.0 98.1 98.0 98.1 Pulse 99 88 Resp 20 18 B/P (MAP) 130/88 (102) 131/94 (106) Pulse Ox 99 100 O2 Delivery Room Air Room Air Room Air Room Air 11/08/19 11/08/19 11/08/19 11/08/19 20:00 23:00 23:10 23:42 Temp 98.0 98.0 Pulse 96 Resp 18 B/P (MAP) 122/84 (97) Pulse Ox 100 O2 Delivery Room Air Room Air Room Air Room Air 11/09/19 11/09/19 11/09/19 11/09/19 03:00 04:20 04:52 07:15 Temp 98.3 98.1 98.3 98.1 Pulse 91 93 Resp 18 18 B/P (MAP) 132/82 (99) 148/96 (113) Pulse Ox 99 100 O2 Delivery Room Air Room Air Room Air Room Air 11/09/19 11/09/19 11/09/19 11/09/19 08:34 09:15 10:55 11:04 Temp 98.0 98.0 Pulse 94 Resp 16 B/P (MAP) 123/87 (99) Pulse Ox 100 O2 Delivery Room Air Room Air Room Air Room Air 11/09/19 11/09/19 11:30 13:01 O2 Delivery Room Air Room Air Intake and Output 11/08/19 11/08/19 11/09/19 15:00 23:00 07:00 Intake Total 0 ml Output Total 1400 ml 1000 ml Balance -1400 ml 0 ml -1000 ml Problem List Problems Medical Problems: (1) DKA (diabetic ketoacidoses) Status: Acute (2) Hypokalemia Status: Acute (3) Respiratory failure Status: Acute (4) Severe sepsis Status: Acute (5) Suspected 2019-nCoV infection Status: Acute Assessment Group B strep sepsis, source? DKA, resolved. Pancreatic pseudocysts. Plan of Care Note Encourage PO. CT in 3-4 weeks. Justicifation of Admission Dx: Justifications for Admission: Justification of Admission Dx: Yes Comminuty Aquired Pneumonia: Hemodynamic Instability Acute Renal Failure: RF Can't Be Managed Outpt Sepsis: Altered Mental Status DKA: DKA BRIANNE HAYNES MD Nov 09, 2019 14:01
--- NOTE | 2019-11-09 14:45 | NUR ---
Wound/Ostomy Care Wound Type/Assessment: sacrum pressure ulcer stage II Treatment Recommendations/Plan: cleanse wound and continue to apply calazime TID PRN, turn Q2, P-500 Education provided: offloading wound by turning to side if tolerated Offloading surface/device: wc cushion Discharge Recommendations for dressings: will re-eval on 11/18
[2019-11-09 15:15] VITALS: BP 105/78
--- NOTE | 2019-11-09 15:54 | NUR ---
SW following. Coordinated care with RN and CM. Reviewed chart. Spoke with Faiza from [facility] and [facility] SANDOVAL coordinated care with Dr. Melton. Discharge orders phoned and faxed to Faiza with [facility], , (fax). SANDOVAL arranged for wc transport via [facility]. SANDOVAL phoned and faxed completed medical necessity form, , (fax). SANDOVAL updated packet of clinicals to send with pt. Spoke with pt's mom who is agreeable to the discharge. RN to call report. No further SW needs at this time. Addendum: 11/09/19 at 1605 by MICHOACANO NICK Faiza from [facility] called to say that the patient that was to discharge did not and that they now do not have a bed for patient. SANDOVAL notified RN and pt's mom of cancelled discharge per no bed availability at [facility]. SW cancelled transportation with [facility]. Pt added to the weekend discharge list. Faiza from [facility] has all discharge paperwork needed and can arrange for transportation.
[2019-11-09 19:00] VITALS: BP 98/68
[2019-11-09] MEDS: LINEZOLID 600 MG TABLET PO SCH (20:09)
[2019-11-09] MEDS: DOXEPIN 150 MG PO SCH (20:15)
--- NOTE | 2019-11-09 20:54 | DS ---
DATE OF DISCHARGE: 11/09/2019 ADMISSION DIAGNOSES: Diabetic ketoacidosis, respiratory failure, sepsis, metabolic encephalopathy. DISCHARGE DIAGNOSES: Resolving diabetic ketoacidosis, resolving metabolic encephalopathy, resolving dysphagia, malnutrition, resolving sepsis. HOSPITAL COURSE: The patient is a pleasant 49-year-old male who presented with DKA with sepsis. He was quite sick. He went to the ICU. We gave him IV antibiotics and fluids and insulin and eventually was able to go to the ICU, but he was very encephalopathic for quite some time. He actually was having difficulty with swallowing. He failed a swallow study several times. Over the past 48 hours, he has suddenly gotten a lot better. We have been giving him TPN, but today he has been eating some. He has now passed his swallow study. I saw and examined him. Heart tones are normal. Lungs are clear. We plan to discharge to [facility] for continued rehabilitation. DISPOSITION: [facility]. ACTIVITY: As tolerated. DIET: Soft mechanical. MEDICATIONS: Please see the MRAD. TOTAL TIME: 34 minutes. VISHAL KATZ DO DR: FRAN/ritesh JOB#: [id number] / [id number]
[2019-11-09 23:00] VITALS: BP 90/64
[2019-11-10] MEDS: MORPHINE SULFATE 4 MG/ML VIAL. IV PRN ×4 (02:06→15:02)
[2019-11-10 03:00] VITALS: BP 92/54
[2019-11-10] MEDS: PANTOPRAZOLE 40 MG TABLET.DR. PO SCH (05:14)
[2019-11-10] MEDS: MEROPENEM 500 MG in IV NORMAL SALINE 50ML 50 ML IV SCH ×2 (05:14→11:37)
[2019-11-10 07:00] VITALS: BP 111/67
[2019-11-10] MEDS: INSULIN LISPRO 300 UNITS/3 ML VIAL. SQ SCH ×3 (07:30→16:30)
[2019-11-10] MEDS: INSULIN GLARGINE SYRINGE. SQ SCH (08:22)
--- NOTE | 2019-11-10 08:27 | PDOC ---
Infectious Disease Note Subjective Subjective Cont to improve. Improving Appetite. No pain No loose stool Eating better No F/C/S/N/V/rash + BM Vital Sign Vital Signs Vital Signs Date Time Temp Pulse Resp B/P (MAP) Pulse Ox O2 Delivery O2 Flow Rate FiO2 11/10/19 05:43 18 96 Room Air 15.0 11/10/19 03:00 98.1 93 92/54 (67) 98.1 Physical Exam PHYSICAL EXAM GENERAL: Alert, in bed. NAD - looks better HEENT: Normocephalic, atraumatic, nml conj. OC/Op -clear NECK: Supple, no lymphadenopathy, no thyromegaly. LUNGS: Decreased breath sounds at the bases, otherwise, clear. HEART: S1, S2, tachycardia. No murmurs. ABDOMEN: Soft, nontender.Obese EXTREMITIES: No cyanosis, no clubbing, mild generalized edema. MUSCULOSKELETAL: Previous left knee surgery. Incision scar intact. No effusion. No surrounding erythema, no fluctuance. DERMATOLOGIC: Warm, dry. No generalized rash. NEUROLOGIC: Cooperative. Alert, oriented x3 Left subclavian - clean Labs Lab Laboratory Tests Test 11/09/19 09:31 11/09/19 12:22 11/09/19 17:04 11/09/19 20:22 Glucose (Fingerstick) 138 mg/dL (70-99) 167 mg/dL (70-99) 92 mg/dL (70-99) 78 mg/dL (70-99) Test 11/10/19 08:17 Glucose (Fingerstick) 52 mg/dL (70-99) Micro CT head 11/05 Impression: 1. No acute intracranial abnormality. 2. Mild nonspecific white matter changes, most often due to chronic microvascular ischemia, unchanged. 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 Acute kidney injury with underlying CKD.- better Coagulopathy. Status post vitamin K Nausea and vomiting, chronically since last surgery with gallbladder. GI bleed Recent Pancreatitis, status post laparoscopic cholecystectomy on 09/14/2019.;now with pseudocyst/fluid collection Weight loss due to poor p.o. 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 Currently well heale d. Hypertension. Bipolar disorder. Anemia Thrombocytopenia High BNP and troponin leak Intolerance to Daptomycin with nausea, tolerated it twice for weeks in the past Last year. on chronic suppressive clindamycin Plan Plan of Care Continue meropenem 10/31 through 11/10 Started linezolid 11/03 change to po continue through 11/13 and micafungin 11/03 through 11/16 DC Daptomycin 11/03 (allergy) f/u repeat blood culture Pulmonary ,hematology GI team following/Neurology Monitor labs Continue supportive care. Will need to restart prophylactic abx after IV discontinued Discussed with nursing staff and family VELIA NATH MD Nov 10, 2019 08:27
[2019-11-10] MEDS: LACTOBACILLUS RHAMNOSUS GG 1 CAPSULE. PO SCH (08:34)
[2019-11-10] MEDS: LINEZOLID 600 MG TABLET PO SCH (08:34)
[2019-11-10] MEDS: LITHIUM CARBONATE ER 300 MG TABLET.ER PO SCH (08:35)
[2019-11-10] MEDS: LISINOPRIL 5 MG TABLET. PO SCH (08:35)
[2019-11-10] MEDS: POTASSIUM CHLORIDE 20 MEQ TABLET.ER. PO SCH (08:35)
[2019-11-10] MEDS: NYSTATIN TOPICAL POWDER 15GM BOTTLE. TP SCH (08:36)
[2019-11-10] MEDS: MICAFUNGIN 100 MG in IV DEXTROSE 5% 100ML 100 ML IV SCH (08:36)
[2019-11-10 11:00] VITALS: BP 99/60
--- NOTE | 2019-11-10 11:20 | PDOC ---
[facility] PROGRESS NOTE Chief Complaint Chief Complaint Sepsis respiratory failure DKA Bacteremia, gram-positive cocci, 1/3 bottles. Recent laparoscopic cholecystectomy about 6 weeks ago Acute on chronic kidney injury. hypophosphatemia Elevated INR, likely secondary to DIC DM2 Small moderate left pneumothorax, incompletely evaluated. Interval development of a 6.3 cm pseudocyst along the pancreatic body. Another 6 cm fluid collection along the medial aspect of the hepatic caudate lobe also likely reflects a pseudocyst. Right colonic wall thickening. Correlate for colitis. rim calcified 10 mm mass along the left kidney medially may be a complicated cyst but is indeterminate. Sonographic follow-up could be performed in 6 months. severe protein-caloric malnutrition History of Present Illness History of Present Illness 11/10/2019 Patient seen and examined Patient ate some breakfast this morning Diet has advanced to Dysphagia III per ST Discussed with patient's and mother Ready to discharge today Discussed with RN Chart reviewed 11/09/2019 Patient seen and examined Resting in bed Strange BSD Speech seems to be improving Diet has advanced to Dysphagia III per ST Discussed with RN and patient's mother Chart reviewed 11/08/2019 Patient seen and examined Resting in bed Strange BSD TPN Discussed with RN and patient's mother Discussed with ST, states patient seems to be improving Chart reviewed 11/07/2019 Patient seen and examined Resting in bed Strange BSD Discussed with RN and patient's mother Chart reviewed 11/06/2019 Patient seen and examined Resting in bed Discussed with RN and patient's mother Chart reviewed 11/04/2019 Patient seen and examined in ICU Strange BSD NG tube intermittent suction remains critically ill Discussed with RN and patient's mother Chart reviewed Vitals/I&O Vitals/I&O: Vital Signs Date Time Temp Pulse Resp B/P (MAP) Pulse Ox O2 Delivery O2 Flow Rate FiO2 11/10/19 10:13 Room Air 11/10/19 08:35 80 111/67 11/10/19 07:00 16 93 11/10/19 05:43 15.0 11/10/19 03:00 98.1 98.1 I & O 11/09/19 11/09/19 11/10/19 15:00 23:00 07:00 Intake Total 240 ml 480 ml Output Total 400 ml Balance -160 ml 480 ml Physical Exam Physical Exam: GENERAL: Alert, in bed. NAD - looks better HEENT: Normocephalic, atraumatic, nml conj. OC/Op -clear NECK: Supple, no lymphadenopathy, no thyromegaly. LUNGS: Decreased breath sounds at the bases, otherwise, clear. HEART: S1, S2, tachycardia. No murmurs. ABDOMEN: Soft, nontender.Obese EXTREMITIES: No cyanosis, no clubbing, mild generalized edema. MUSCULOSKELETAL: Previous left knee surgery. Incision scar intact. No effusion. No surrounding erythema, no fluctuance. DERMATOLOGIC: Warm, dry. No generalized rash. NEUROLOGIC: Cooperative. Alert, oriented x3 Left subclavian - clean General: Alert, Oriented X3, Cooperative, No acute distress Heart: Normal S1, Normal S2 Lungs: Clear Abdomen: Soft, No tenderness, No masses Extremities: No clubbing, No cyanosis, No tenderness/swelling Skin: No rashes, No significant lesion Labs Labs: Laboratory Tests Test 11/09/19 12:22 11/09/19 17:04 11/09/19 20:22 11/10/19 08:17 Glucose (Fingerstick) 167 mg/dL (70-99) 92 mg/dL (70-99) 78 mg/dL (70-99) 52 mg/dL (70-99) Test 11/10/19 11:04 Glucose (Fingerstick) 83 mg/dL (70-99) Assessment and Plan Assessmemt and Plan Problems Medical Problems: (1) DKA (diabetic ketoacidoses) Status: Acute (2) Hypokalemia Status: Acute (3) Respiratory failure Status: Acute (4) Severe sepsis Status: Acute (5) Suspected 2019-nCoV infection Status: Acute ASSESSMENT Sepsis respiratory failure DKA Bacteremia, gram-positive cocci, 1/3 bottles. Recent laparoscopic cholecystectomy about 6 weeks ago Acute on chronic kidney injury. hypophosphatemia Elevated INR, likely secondary to DIC DM2 Small moderate left pneumothorax, incompletely evaluated. Interval development of a 6.3 cm pseudocyst along the pancreatic body. Another 6 cm fluid collection along the medial aspect of the hepatic caudate lobe also likely reflects a pseudocyst. Right colonic wall thickening. Correlate for colitis. rim calcified 10 mm mass along the left kidney medially may be a complicated cyst but is indeterminate. Sonographic follow-up could be performed in 6 months. severe protein-caloric malnutrition PLAN Plan [facility] PT/OT/ST Dysphagia III diet Encourage PO intake Monitor blood sugar Wound care DVT prophylaxis Full Code Appreciate subspecialty input Comment Review of Relevant I have reviewed the following items blaze (where applicable) has been applied. Medications: Current Medications Medications (Trade) Dose Ordered Sig/Edilma Route PRN Reason Start Time Stop Time Status Last Admin Dose Admin Linezolid (Zyvox) 600 mg BID PO 11/09/19 21:00 11/10/19 08:34 Justicifation of Admission Dx: Justifications for Admission: Justification of Admission Dx: Yes Comminuty Aquired Pneumonia: Hemodynamic Instability Acute Renal Failure: RF Can't Be Managed Outpt Sepsis: Altered Mental Status DKA: DKA VISHAL KATZ III DO Nov 10, 2019 11:20
--- NOTE | 2019-11-10 11:21 | PDOC ---
PULMONARY PROGRESS NOTES Subjective extubated 11/03 doing well, denies sob, cough, on RA Vitals Vital Signs Date Time Temp Pulse Resp B/P (MAP) Pulse Ox O2 Delivery O2 Flow Rate FiO2 11/10/19 11:00 97.6 92 16 99/60 (73) 100 Room Air 97.6 11/10/19 05:43 15.0 General: Alert, No acute distress Lungs: Clear Cardiovascular: S1 Abdomen: Soft, Other Extremities: No Edema Skin: Warm Labs Laboratory Tests Test 11/08/19 12:01 11/08/19 18:16 11/09/19 00:31 11/09/19 03:30 Glucose (Fingerstick) 205 mg/dL (70-99) 121 mg/dL (70-99) 181 mg/dL (70-99) Sodium Level 133 mmol/L (136-145) Potassium Level 3.7 mmol/L (3.5-5.1) Chloride Level 107 mmol/L (98-107) Carbon Dioxide Level 17 mmol/L (21-32) Anion Gap 9 (6-14) Blood Urea Nitrogen 21 mg/dL (8-26) Creatinine 0.8 mg/dL (0.7-1.3) Estimated GFR (Cockcroft-Gault) 102.3 Glucose Level 179 mg/dL (70-99) Calcium Level 8.1 mg/dL (8.5-10.1) Phosphorus Level 3.8 mg/dL (2.6-4.7) Magnesium Level 2.3 mg/dL (1.8-2.4) Test 11/09/19 06:20 11/09/19 09:31 11/09/19 12:22 11/09/19 17:04 Glucose (Fingerstick) 152 mg/dL (70-99) 138 mg/dL (70-99) 167 mg/dL (70-99) 92 mg/dL (70-99) Test 11/09/19 20:22 11/10/19 08:17 11/10/19 11:04 Glucose (Fingerstick) 78 mg/dL (70-99) 52 mg/dL (70-99) 83 mg/dL (70-99) Laboratory Tests Test 11/09/19 12:22 11/09/19 17:04 11/09/19 20:22 11/10/19 08:17 Glucose (Fingerstick) 167 mg/dL (70-99) 92 mg/dL (70-99) 78 mg/dL (70-99) 52 mg/dL (70-99) Test 11/10/19 11:04 Glucose (Fingerstick) 83 mg/dL (70-99) Medications Active Scripts Medications Dose Route/Sig Max Daily Dose Days Date Category Dose Instructions Humalog (Insulin Lispro) 100 Unit/1 Ml Insuln.pen 0 Units SQ QIDACHS 09/16/19 Rx Culturelle (Lactobacillus Rhamnosus Gg) 1 Each Cap.sprink 1 Cap PO BID 30 09/16/19 Rx Pantoprazole Sodium (Pantoprazole Sodium) 40 Mg Tablet.dr 40 Mg PO DAILYAC 09/16/19 Rx Dok (Docusate Sodium) 100 Mg Capsule 100 Mg PO PRN BID PRN 09/16/19 Rx Klor-Con M20 (Potassium Chloride) 20 Meq Tab.er.prt 20 Meq PO DAILYWBKFT 09/16/19 Rx Proair Hfa (Albuterol Sulfate) 8.5 Gm Hfa.aer.ad 2.5 Mg NEB PRN Q4HRS PRN 09/16/19 Rx Clindamycin Hcl 300 Mg Capsule 600 Mg PO BID 09/11/19 Reported Lidocaine PATCH (Lidocaine) 1 Each Adh..patch 1 Each TP DAILY 03/12/19 Reported REMOVE AFTER 12 HOURS Lisinopril 5 Mg Tablet 1 Tab PO DAILY PRN 03/12/19 Reported Clonazepam 1 Mg Tablet 1 Mg PO BID 03/12/19 Reported [place] Carbonate 300 Mg Tablet 1 Tab PO BID 08/08/18 Reported Zanaflex (Tizanidine Hcl) 4 Mg Capsule 1 Cap PO TID PRN 08/25/15 Reported Janumet 50-1,000 Mg Tablet (Sitagliptin Phos/Metformin Hcl) 1 Each Tablet 1 Tab PO BID 01/17/15 Reported Doxepin Hcl 50 Mg Capsule 300 Mg PO HS 01/17/15 Reported Comments cxr 10/31 reviewed. no ptx BLOOD CULTURE LC Final Final GRAM POSITIVE COCCI FINAL ID= [STAPHYLOCOCCUS HAEMOLYTICUS MR] STAPHYLOCOCCUS HAEMOLYTICUS MR ANTIMICROBIAL SUSCEPTIBILITY Final Comment POS [place] TYPE 38 STAPHYLOCOCCUS HAEMOLYTICUS MR ANTIBIOTIC RESULT INTERPRETATION AZITHROMYCIN >4 R CLINDAMYCIN >4 R CIPROFLOXACIN >2 R DAPTOMYCIN <=0.5 S ERYTHROMYCIN >4 R GENTAMICIN >8 R LINEZOLID <=1 S LEVOFLOXACIN >4 R OXACILLIN >2 R PENICILLIN >2 R RIFAMPIN <=1 S TRIMETHOPRIM/SULFAMETHOXAZOLE >2/38 R TETRACYCLINE >8 R VANCOMYCIN 1 S Unless otherwise specified, Testing Performed by: [facility] [address] [place] [address] For Inquires, the Physician may contact the Microbiology department at [phone] Impression . IMPRESSION: 1. Acute hypoxemic respiratory failure secondary to acute metabolic acidosis. extubated 11/03 2. Diabetic ketoacidosis. resolved 3. Septic shock.resolved 4. Bacteremia, gram-positive cocci, 04/13 bottles. FINAL ID= [STAPHYLOCOCCUS HAEM OLYTICUS MR] 5. Recent laparoscopic cholecystectomy. 6. Acute on chronic kidney injury. 7. COVID-19, suspect. 8. Tobacco dependent. 9. Chronic obstructive pulmonary disease, unknown FEV1. 10. Small left-sided pneumo small seen on ct abd, not seen on f/u cxr 10/31 11. New pseudocyst fluid collection, seen on CT abdomen, per GI. CT abdomen pelvis IMPRESSION: 1. Small moderate left pneumothorax, incompletely evaluated. 2. Interval development of a 6.3 cm pseudocyst along the pancreatic body. 3. Another 6 cm fluid collection along the medial aspect of the hepatic caudate lobe also likely reflects a pseudocyst. 4. Right colonic wall thickening. Correlate for colitis. 5. A rim calcified 10 mm mass along the left kidney medially may be a complicated cyst but is indeterminate. Sonographic follow-up could be performed in 6 months. Plan . discussed w his mother and Doing well since extubated on RA PT/OT/ SPEECH to follow Follow GI input antibiotics per ID Monitor blood sugars Monitor H&H 10/31 chest x-ray shows no pneumothorax stable pulmonary status. to [facility] CHARLETTE LANGFORD MD Nov 10, 2019 11:21
--- NOTE | 2019-11-10 11:58 | PDOC ---
[facility] PROGRESS NOTE Subjective Sleeping, did not awaken. MOM says needs much encouragement to eat. Objective Ate better yesterday. Physical Exam No PE Review of Relevant I have reviewed the following items blaze (where applicable) has been applied. Labs Laboratory Tests Test 11/08/19 12:01 11/08/19 18:16 11/09/19 00:31 11/09/19 03:30 Glucose (Fingerstick) 205 mg/dL (70-99) 121 mg/dL (70-99) 181 mg/dL (70-99) Sodium Level 133 mmol/L (136-145) Potassium Level 3.7 mmol/L (3.5-5.1) Chloride Level 107 mmol/L (98-107) Carbon Dioxide Level 17 mmol/L (21-32) Anion Gap 9 (6-14) Blood Urea Nitrogen 21 mg/dL (8-26) Creatinine 0.8 mg/dL (0.7-1.3) Estimated GFR (Cockcroft-Gault) 102.3 Glucose Level 179 mg/dL (70-99) Calcium Level 8.1 mg/dL (8.5-10.1) Phosphorus Level 3.8 mg/dL (2.6-4.7) Magnesium Level 2.3 mg/dL (1.8-2.4) Test 11/09/19 06:20 11/09/19 09:31 11/09/19 12:22 11/09/19 17:04 Glucose (Fingerstick) 152 mg/dL (70-99) 138 mg/dL (70-99) 167 mg/dL (70-99) 92 mg/dL (70-99) Test 11/09/19 20:22 11/10/19 08:17 11/10/19 11:04 Glucose (Fingerstick) 78 mg/dL (70-99) 52 mg/dL (70-99) 83 mg/dL (70-99) Laboratory Tests Test 11/09/19 12:22 11/09/19 17:04 11/09/19 20:22 11/10/19 08:17 Glucose (Fingerstick) 167 mg/dL (70-99) 92 mg/dL (70-99) 78 mg/dL (70-99) 52 mg/dL (70-99) Test 11/10/19 11:04 Glucose (Fingerstick) 83 mg/dL (70-99) Microbiology 11/04/19 Blood Culture - Final, Complete 11/04/19 Antimicrobic Susceptibility - Final, Complete 10/30/19 Urine Culture - Final, Complete Vitals/I & O Vital Sign - Last 24 Hours 11/09/19 11/09/19 11/09/19 11/09/19 13:01 13:45 15:15 15:33 Temp 97.8 97.8 Pulse 102 Resp 18 B/P (MAP) 105/78 (87) Pulse Ox 95 O2 Delivery Room Air Room Air Room Air Room Air 11/09/19 11/09/19 11/09/19 11/09/19 16:15 19:00 19:00 20:00 Temp 98.1 98.1 98.1 98.1 Pulse 94 94 Resp 18 18 B/P (MAP) 98/68 (78) 98/68 (78) Pulse Ox 97 97 O2 Delivery Room Air Room Air Room Air 11/09/19 11/09/19 11/09/19 11/09/19 20:10 20:40 23:00 23:25 Temp 97.8 97.8 Pulse 94 Resp 18 18 16 18 B/P (MAP) 90/64 (73) Pulse Ox 95 95 96 95 O2 Delivery Room Air Room Air Room Air Room Air O2 Flow Rate 15.0 15.0 11/09/19 11/10/19 11/10/19 11/10/19 23:55 02:06 02:36 03:00 Temp 98.1 98.1 Pulse 93 Resp 18 18 18 18 B/P (MAP) 92/54 (67) Pulse Ox 95 95 95 96 O2 Delivery Room Air Room Air Room Air O2 Flow Rate 15.0 11/10/19 11/10/19 11/10/19 11/10/19 05:13 05:43 07:00 08:00 Pulse 80 Resp 18 18 16 B/P (MAP) 111/67 (82) Pulse Ox 96 96 93 O2 Delivery Room Air Room Air Room Air Room Air O2 Flow Rate 15.0 15.0 11/10/19 11/10/19 11/10/19 11/10/19 08:35 09:21 10:13 11:00 Temp 97.6 97.6 Pulse 80 92 Resp 16 B/P (MAP) 111/67 99/60 (73) Pulse Ox 100 O2 Delivery Room Air Room Air Room Air Intake and Output 11/09/19 11/09/19 11/10/19 15:00 23:00 07:00 Intake Total 240 ml 480 ml Output Total 400 ml Balance -160 ml 480 ml Problem List Problems Medical Problems: (1) DKA (diabetic ketoacidoses) Status: Acute (2) Hypokalemia Status: Acute (3) Respiratory failure Status: Acute (4) Severe sepsis Status: Acute (5) Suspected 2019-nCoV infection Status: Acute Assessment DKA, resolved. Group B Strep sepsis--source? Chronic anemia--ACD by numbers. Mental status wavers. Plan of Care Note Continue support. Encourage PO. Justicifation of Admission Dx: Justifications for Admission: Justification of Admission Dx: Yes Comminuty Aquired Pneumonia: Hemodynamic Instability Acute Renal Failure: RF Can't Be Managed Outpt Sepsis: Altered Mental Status DKA: DKA BRIANNE HAYNES MD Nov 10, 2019 11:58
[2019-11-10 15:00] VITALS: BP 89/65
--- NOTE | 2019-11-10 17:17 | NUR ---
Discharge Note: PT DISCHARGED TO [facility]. PT LEFT FACILITY VIA EMS TRANSPORT AT 1650. PT STABLE AND ALERT UPON DISCHARGE. PT DISCHARGED WITH TL CENTRAL LINE TO L SUBCLAV., DRESSING WAS C/D/I AND PORTS WERE CAPPED AND PATENT. REPORT CALLED TO SYLVIE VELAZQUEZ AT [facility]. ALL QUESTIONS ANSWERED. PT DISCHARGED WITH HOME MEDICATION WITH EMS AND HOSPITAL PACKET WITH DISCHARGE INSTRUCTIONS, DISCHARGE MEDICATIONS, AND FOLLOW-UP CARE. PT LEFT WITH ALL PERSONAL BELONGINGS WITH MOTHER. ANASTACIA RESENDEZ Discharge instructions and discharge home medications reviewed with Patient and a copy given. All questions have been answered and understanding verbalized.
[2019-11-10] MEDS ORDERED: INSULIN GLARGINE SYRINGE. SQ SCH (21:00)
== END 2019-11-10 16:50 | disposition home or self-care (01) | DRG 870 ==
LOC: ER 10:01 → ED HOLD 11:26 → 1 WEST ICU 12:49 → 5 NORTH 11-05 15:47
PROVIDERS: ADMIT Internal Medicine; ATTEND Internal Medicine
PROC: 5A1955Z Respiratory Ventilation, Greater than 96 Consecutive Hours (ICD-10-PCS; principal; 2019-10-30)
PROC: 0BH17EZ Insertion of Endotracheal Airway into Trachea, Via Natural or Artificial Opening (ICD-10-PCS; 2019-10-30)
DX: A40.9 Streptococcal sepsis, unspecified (principal); J96.01 Acute respiratory failure with hypoxia; E11.10 Type 2 diabetes mellitus with ketoacidosis without coma; E43 Unspecified severe protein-calorie malnutrition; G93.41 Metabolic encephalopathy; J18.9 Pneumonia, unspecified organism; R65.21 Severe sepsis with septic shock; J44.0 Chronic obstructive pulmonary disease with (acute) lower respiratory infection; N17.9 Acute kidney failure, unspecified; D68.9 Coagulation defect, unspecified; B96.89 Other specified bacterial agents as the cause of diseases classified elsewhere; D50.9 Iron deficiency anemia, unspecified; D72.810 Lymphocytopenia; E03.9 Hypothyroidism, unspecified; E11.22 Type 2 diabetes mellitus with diabetic chronic kidney disease; Z68.32 Body mass index [BMI] 32.0-32.9, adult; E83.39 Other disorders of phosphorus metabolism; E87.6 Hypokalemia; F17.210 Nicotine dependence, cigarettes, uncomplicated; F31.9 Bipolar disorder, unspecified; F41.9 Anxiety disorder, unspecified; G47.33 Obstructive sleep apnea (adult) (pediatric); I12.9 Hypertensive chronic kidney disease with stage 1 through stage 4 chronic kidney disease, or unspecified chronic kidney disease; M17.0 Bilateral primary osteoarthritis of knee; N18.9 Chronic kidney disease, unspecified; R13.10 Dysphagia, unspecified; Z20.828 Contact with and (suspected) exposure to other viral communicable diseases; Z79.891 Long term (current) use of opiate analgesic; Z82.49 Family history of ischemic heart disease and other diseases of the circulatory system; Z83.3 Family history of diabetes mellitus; Z85.828 Personal history of other malignant neoplasm of skin; Z86.14 Personal history of Methicillin resistant Staphylococcus aureus infection; Z90.49 Acquired absence of other specified parts of digestive tract; Z96.653 Presence of artificial knee joint, bilateral; G89.29 Other chronic pain; K21.9 Gastro-esophageal reflux disease without esophagitis; Z88.8 Allergy status to other drugs, medicaments and biological substances; D69.6 Thrombocytopenia, unspecified
CPT/HCPCS: 31500; 36415; 36556; 36600; 51702; 70450; 71045; 74176; 80048; 80053; 80076; 81001; 82010; 82248; 82805; 82962; 83605; 83690; 83735; 83880; 84100; 84478; 84484; 85025; 85379; 85384; 85610; 85730; 87040; 87077; 87086; 87186; 87205; 87493; 93005; 94002; 94003; 94760; 96361; 96365; 96368; 96375; C9113; J0330; J0610; J0878; J1815; J2020; J2185; J2248; J2250; J2270; J2543; J3010; J3430; J3475; J3480; J3490; J7030; J7042; J7050; J7060; 92526-GN; 92610-GN; 97110-GP; 97116-GP; 97530-GO; 97530-GP; 99291-25; G0378; U0003-CS

== ENCOUNTER → 2020-04-16 | Outpatient (CLI) | payer BC, MEDICARE ==
[~2020-04-16] MED LIST changes: +APIX2.5T PO; -CLIN300C8 PO; +CLIN300C9 PO; +ONDA4TAB7 PO
--- NOTE | 2020-04-16 12:02 | PDOC ---
Progress Note - Pain Clinic Date of Service: DOS: DATE: 04/16/20 TIME: 11:56 Diagnosis: Dx: Lumbar degenerative disc disease with lumbar spinal stenosis and lumbar spondylosis History or Present Illness: HPI: 50-year-old male returns to follow-up status post medication management patient not been seen since October 2019 as he has been hospitalized with pancreatitis and received a common duct stent which was removed about 1 month ago. Patient reports he been in and out of the hospital so frequently he did not have any ability to follow-up on any outpatient appointments as he has been taking medication chronically oxycodone as well as Zanaflex and using Lidoderm patches. Patient reports while he was in the hospital however they were able to take care of these needs with inpatient pharmacies and he has made what he had from October last until recently. Patient reports he is feeling somewhat better but still has significant pain in the low back and especially the knees. Patient has had a significant weight loss secondary to his inability to eat secondary to his pancreatitis and treatment associated with that however his diabetes has changed and resolved to a moderate extent and he is no longer taking some of his psychiatric medications and reports he feels clearer mentally. Patient reports no side effects with his medication and about a 75% improvement with the medications overall without any significant side effects. Reports still significant pain in the low back bilateral hips and lower extremities with walking weightbearing and changing positions. Patient reports he is doing physical therapy 3 times a week currently and continues this as well as he does have some significant fatigue from hospitalization and some atrophy. Physical Exam: VS: Blood pressure is 100/65 pulse 80 respirations 16 temperature 98.4 F weight is 156 pounds PE: PHYSICAL EXAMINATION: GENERAL: The patient is awake, alert, oriented, appropriate, very pleasant demeanor HEENT: Shows normocephalic, atraumatic. Extraocular movements are intact and symmetrical. Oral cavity: Mucous membranes moist and pink. NECK: Shows anterior throat supple without palpable lymphadenopathy noted. Swallow reflex symmetrical. CHEST: Shows normal on inspection. Breath sounds are clear bilaterally, distant but no rales rhonchi or wheezes auscultated. HEART: Shows S1, S2 clear. No murmurs auscultated. ABDOMEN: Soft, nontender, nondistended, obese. No palpable organomegaly is noted. No rebound or guarding demonstrated. BACK: Shows spine grossly in the midline. Normal-appearing cervical lordotic curvature. There is slightly increased thoracic kyphosis, some minor flattening of the lumbar lordotic curvature. Lumbar paraspinous muscles show symmetrical on inspection, on palpation shows some moderate tenderness diffusely throughout the upper, middle and lower distribution of the paraspinous muscles bilaterally, but without specific trigger points, without radiation of pain. The patient has good rotational motion of the lumbar spine, both laterally as well as extension and flexion without significant difficulty. No tenderness over the spinous processes, sacrum or sacroiliac regions. EXTREMITIES: Lower extremities show deep tendon reflexes 1+ in the patellar and tendo calcaneus tendons. Motor exam is 4 on a scale of 5 with right dorsiflexion, extension, quadriceps and hamstring flexion and 4/5 on the left. Peripheral pulses are 1+ posterior tibial. No peripheral edema is noted bilaterally. Patient's left knee shows larger in size compared to the right with well-healed surgical scars over each knee. SKIN: Shows warm and dry, good turgor. No edema. No sores, rashes or bruising throughout. Procedure: Procedure: Options were discussed with the patient. Patient chart reviewed as her current medication regimen updated current review of systems updated today as well. We will refill patient's medication oxycodone as well as Zanaflex and Lidoderm patches with instructions side effects were discussed with each medication. She has had appropriate K tracts reporting appropriate urinalyses to date. We will renew patient's narcotic contract today. Patient will follow up in approximately 2 months or sooner as necessary. Medication Injected: Med Injected: None Condition at Discharge: Condition at Discharge: Condition at discharge is stable. KFOI BYRD MD Apr 16, 2020 12:02
== END | disposition home or self-care (01) ==
LOC: PNCL 11:03
PROVIDERS: ATTEND Anesthesiology
DX: M51.36 Other intervertebral disc degeneration, lumbar region (principal); M47.816 Spondylosis without myelopathy or radiculopathy, lumbar region; M48.061 Spinal stenosis, lumbar region without neurogenic claudication; Z98.890 Other specified postprocedural states; Z91.041 Radiographic dye allergy status; Z88.8 Allergy status to other drugs, medicaments and biological substances
CPT/HCPCS: G0463

== ENCOUNTER 2020-04-22 19:07 | Inpatient (IN) | payer BC, MEDICARE ==
[~2020-04-22] VITALS: Ht 170.2 cm; Wt 61.2 kg
[~2020-04-22 19:07] MED LIST changes: -LISI-338 PO; +LISI-517 PO
[2020-04-22] MEDS ORDERED: IV RINGERS,LACTATED 500ML 500 ML IV ONE (19:15)
--- NOTE | 2020-04-22 19:49 | ED.ADGEN ---
Past Medical History Past Medical History: Anxiety, Bipolar, Depression, Diabetes-Type II, Hypertension, Other Additional Past Medical Histor: chronic back pain Past Surgical History: Cholecystectomy, Knee Replacement, Other Additional Past Surgical Histo: cardiac cath, skin cancer removal, L KNEE SCOPE Smoking Status: Never Smoker Alcohol Use: Rarely Drug Use: None General Adult EDM: Chief Complaint: ABDOMINAL PAIN HPI: HPI: Patient is a 50 year old male brought in by EMS for nausea, vomiting and diarrhea since yesterday. His emesis has been brown but denies any blood. Diarrhea is nonbloody nonbilious. Denies any fevers. Was tested for Covid but has not had it yet. Denies any positive contacts but knows people he has not been in contact who tested positive. Denies any fevers, cough. Has a history of pancreatitis and stents placed. Review of Systems: Review of Systems: All other systems within normal limits except for as noted in the HPI Current Medications: Current Medications Medications (Trade) Dose Ordered Sig/Edilma Start Time Stop Time Status Last Admin Dose Admin Diphenhydramine HCl (Benadryl) 25 mg 1X ONCE 04/22/20 22:45 04/22/20 22:46 DC 04/22/20 22:39 25 MG Lorazepam (Ativan Inj) 2 mg 1X ONCE 04/22/20 20:30 04/22/20 20:31 DC 04/22/20 20:36 2 MG Ondansetron HCl (Zofran) 4 mg 1X ONCE 04/22/20 19:15 04/22/20 19:17 DC 04/22/20 20:33 4 MG Potassium Chloride/Sodium Chloride 1,000 ml @ 125 mls/hr Q8H ONCE 04/22/20 21:45 04/23/20 05:44 04/22/20 21:46 125 MLS/HR Prochlorperazine Edisylate (Compazine) 10 mg 1X ONCE 04/22/20 21:45 04/22/20 21:46 DC 04/22/20 21:45 10 MG Ringer's Solution 500 ml @ 500 mls/hr 1X ONCE 04/22/20 19:15 04/22/20 20:14 DC 04/22/20 19:15 500 MLS/HR Sodium Chloride 1,000 ml @ 1,000 mls/hr 1X ONCE 04/22/20 21:45 04/22/20 22:44 DC 04/22/20 21:52 1,000 MLS/HR Allergies: Allergies: Allergies Coded Allergies Type Severity Reaction Last Updated Verified daptomycin Allergy Intermediate chills, nausea 08/09/19 Yes ketamine Allergy Intermediate 09/13/19 Yes I S O L A T I O N *CONTACT* Allergy Unknown Unknown 08/14/19 Yes Physical Exam: PE: Constitutional: Well developed, well nourished,acute distress, non-toxic appearance, cachectic. [] HENT: Normocephalic, atraumatic, bilateral external ears normal, nose normal. [] Eyes: PERRLA, conjunctiva normal, no discharge. [] Neck: No rigidity, supple, no stridor. [] Cardiovascular: Tachycardic, regular rhythm, brisk cap refill [] Lungs & Thorax: Tachypnea [] Abdomen: Soft, nondistended generalized tenderness. Skin: Warm, dry, no erythema, no rash. [] Back: No tenderness, no CVA tenderness. [] Extremities: No deformities, range of motion grossly intact, no lower extremity edema [] Neurologic: Alert and oriented X 3, no focal deficits noted. [] Psychologic: Affect normal, judgement normal, mood normal. [] Current Patient Data: Labs: Laboratory Tests Test 04/22/20 19:14 04/22/20 19:50 Sodium Level 135 mmol/L (136-145) L Potassium Level 2.8 mmol/L (3.5-5.1) *L Chloride Level 97 mmol/L (98-107) L Carbon Dioxide Level 18 mmol/L (21-32) L Anion Gap 20 (6-14) H Blood Urea Nitrogen 19 mg/dL (8-26) Creatinine 2.1 mg/dL (0.7-1.3) H Estimated GFR (Cockcroft-Gault) 33.5 BUN/Creatinine Ratio 9 (6-20) Glucose Level 205 mg/dL (70-99) H Calcium Level 9.2 mg/dL (8.5-10.1) Phosphorus Level 5.2 mg/dL (2.6-4.7) H Magnesium Level 2.1 mg/dL (1.8-2.4) Total Bilirubin 0.9 mg/dL (0.2-1.0) Aspartate Amino Transferase (AST) 29 U/L (15-37) Alanine Aminotransferase (ALT) 13 U/L (16-63) L Alkaline Phosphatase 222 U/L (46-116) H Total Protein 6.6 g/dL (6.4-8.2) Albumin 2.2 g/dL (3.4-5.0) L Albumin/Globulin Ratio 0.5 (1.0-1.7) L Lipase 38 U/L (73-393) L White Blood Count 13.5 x10^3/uL (4.0-11.0) H Red Blood Count 4.79 x10^6/uL (4.30-5.70) Hemoglobin 12.7 g/dL (13.0-17.5) L Hematocrit 38.7 % (39.0-53.0) L Mean Corpuscular Volume 81 fL (79-100) Mean Corpuscular Hemoglobin 27 pg (25-35) Mean Corpuscular Hemoglobin Concent 33 g/dL (31-37) Red Cell Distribution Width 17.5 % (11.5-14.5) H Platelet Count 442 x10^3/uL (140-400) H Neutrophils (%) (Auto) 92 % (31-73) H Lymphocytes (%) (Auto) 5 % (24-48) L Monocytes (%) (Auto) 3 % (0-9) Eosinophils (%) (Auto) 0 % (0-3) Basophils (%) (Auto) 0 % (0-3) Neutrophils # (Auto) 12.4 x10^3/uL (1.8-7.7) H Lymphocytes # (Auto) 0.7 x10^3/uL (1.0-4.8) L Monocytes # (Auto) 0.4 x10^3/uL (0.0-1.1) Eosinophils # (Auto) 0.0 x10^3/uL (0.0-0.7) Basophils # (Auto) 0.0 x10^3/uL (0.0-0.2) Segmented Neutrophils % 93 % (35-66) H Lymphocytes % 5 % (24-48) L Monocytes % 2 % (0-10) Platelet Estimate Increased (ADEQUATE) Anisocytosis Slight Lactic Acid Level 8.5 mmol/L (0.4-2.0) *H Troponin I Quantitative 0.115 ng/mL (0.000-0.055) Ethyl Alcohol Level < 10 mg/dL (0-10) Laboratory Tests 04/22/20 19:50 Laboratory Tests 04/22/20 19:14 Vital Signs: Vital Signs Date Time Temp Pulse Resp B/P (MAP) Pulse Ox O2 Delivery O2 Flow Rate FiO2 04/22/20 23:30 118 20 107/72 (84) 100 Room Air 04/22/20 22:30 2.0 04/22/20 19:10 97.7 97.7 EKG: EKG: Sinus tach cardia, heart rate 120 bpm, indeterminate axis, no ST elevation or depression, no ectopy, normal intervals. [] Heart Score: Risk Factors: Risk Factors: DM, Current or recent (<one month) smoker, HTN, HLP, family history of CAD, obesity. Risk Scores: Score 0 - 3: 2.5% MACE over next 6 weeks - Discharge Home Score 4 - 6: 20.3% MACE over next 6 weeks - Admit for Clinical Observation Score 7 - 10: 72.7% MACE over next 6 weeks - Early Invasive Strategies Radiology/Procedures: Radiology/Procedures: EXAM: CT Abdomen and Pelvis without IV contrast CLINICAL HISTORY: Vomiting COMPARISON: 10/31/2019 TECHNIQUE: Helical CT of the abdomen and pelvis without intravenous contrast. Axial, coronal and sagittal reformatted images were generated. PQRS compliance statement - One or more of the following individualized dose reduction techniques were utilized for this study: 1. Automated exposure control 2. Adjustment of the mA and/or kV according to patient size 3. Use of iterative reconstruction technique FINDINGS: Lack of intravenous contrast limits evaluation of solid organs, vasculature, and lymph nodes. Examination is limited by motion artifact as well. Lower chest: Lung bases are clear. Trace pericardial effusion. Abdomen and Pelvis: Hepatic hypoattenuation, likely fatty liver. Cholecystectomy clips are seen. No biliary ductal dilatation. Pancreas is unremarkable. Spleen is normal in appearance. Adrenal glands are unremarkable. Calcified left interpolar renal lesion is seen. Punctate nonobstructing left interpolar renal calculus. No hydronephrosis or hydroureter. Bladder is unremarkable. Left common iliac vein stent is seen. Atherosclerotic calcifications of aorta and iliacs, particularly the internal iliac arteries. Appendix is not seen. Mild colonic stool content. No small or large bowel dilatation. No bowel obstruction. No abdominal or pelvic ascites. Left common femoral iliac chain lymph node measures 1.8 x 1.2 cm. Prominent retroperitoneal lymph nodes are seen. Small fat-containing left inguinal hernia. Bones: Degenerative changes of the spine are seen. Hip joint degenerative changes are noted. IMPRESSION: Marked hepatic hypoattenuation, fatty liver. Pelvic lymphadenopathy, uncertain clinical significance, possibly reactive. No bowel obstruction. [] Course & Med Decision Making: Course & Med Decision Making Pertinent Labs and Imaging studies reviewed. (See chart for details) [] Dragon Disclaimer: Dragon Disclaimer: This electronic medical record was generated, in whole or in part, using a voice recognition dictation system. Departure Departure Impression: Primary Impression: Dehydration Additional Impressions: Person under investigation for COVID-19 Nausea vomiting and diarrhea Disposition: ADMITTED INPT THIS HOSP Admitting Physician: SHANTELLE Condition: GUARDED Referrals: BAMBI SHEA APRN (PCP) Problem Qualifiers GRACE DYE MD Apr 22, 2020 19:48
[2020-04-22 20:27] LABS: BASO % 0 % (0-3); EOS % 0 % (0-3); HEMATOCRIT 38.7 % (39.0-53.0); HEMOGLOBIN 12.7 g/dL (13.0-17.5); LYMPH # 0.7 x10^3/uL (1.0-4.8); LYMPH % 5 % (24-48); MEAN CORPUSCULAR HEMOGLOBIN 27 pg (25-35); MEAN CORPUSCULAR HGB CONC 33 g/dL (31-37); MEAN CORPUSCULAR VOLUME 81 fL (79-100); MONO # 0.4 x10^3/uL (0.0-1.1); MONO % 3 % (0-9); NEUT # 12.4 x10^3/uL (1.8-7.7); NEUT % 92 % (31-73); PLATELET COUNT 442 x10^3/uL (140-400); RED BLOOD COUNT 4.79 x10^6/uL (4.30-5.70); RED CELL DISTRIBUTION WIDTH 17.5 % (11.5-14.5); WHITE BLOOD COUNT 13.5 x10^3/uL (4.0-11.0)
[2020-04-22] MEDS: ONDANSETRON PF 4 MG/2 ML VIAL. IVP ONE ×2 (20:32→20:33)
[2020-04-22 20:58] LABS: % LYMPHS 5 % (24-48); % MONOS 2 % (0-10); % SEGS 93 % (35-66); ANISOCYTOSIS SLIGHT; PLT ESTIMATE INCREASED (ADEQUATE)
[2020-04-22 21:00] LABS: ALBUMIN 2.2 g/dL (3.4-5.0); ALBUMIN/GLOBULIN RATIO 0.5 (1.0-1.7); CALCIUM 9.2 mg/dL (8.5-10.1); CREATININE 2.1 mg/dL (0.7-1.3); GFR 33.5; MAGNESIUM 2.1 mg/dL (1.8-2.4); PHOSPHORUS 5.2 mg/dL (2.6-4.7); TOTAL BILIRUBIN 0.9 mg/dL (0.2-1.0); TOTAL PROTEIN 6.6 g/dL (6.4-8.2)
[2020-04-22 21:13] LABS: POTASSIUM 2.8 mmol/L (3.5-5.1)
[2020-04-22] MEDS ORDERED: IV NORMAL SALINE 1000ML BAG 1,000 ML IV ONE (21:45)
[2020-04-22] MEDS ORDERED: PROCHLORPERAZINE 10 MG/2 ML VIAL. IV ONE (21:45)
[2020-04-22] MEDS ORDERED: diphenhydrAMINE 50 MG/ML VIAL IVP ONE (22:45)
--- NOTE | 2020-04-22 23:02 | RAD ---
EXAM: CT Abdomen and Pelvis without IV contrast CLINICAL HISTORY: Vomiting COMPARISON: 10/31/2019 TECHNIQUE: Helical CT of the abdomen and pelvis without intravenous contrast. Axial, coronal and sagi ttal reformatted images were generated. PQRS compliance statement - One or more of the following individualized dose reduction techniques wer e utilized for this study: 1. Automated exposure control 2. Adjustment of the mA and/or kV according to patient size 3. Use of iterative reconstruction technique FINDINGS: Lack of intravenous contrast limits evaluation of solid organs, vasculature, and lymph nodes. Examina tion is limited by motion artifact as well. Lower chest: Lung bases are clear. Trace pericardial effusion. Abdomen and Pelvis: Hepatic hypoattenuation, likely fatty liver. Cholecystectomy clips are seen. No biliary ductal dilata tion. Pancreas is unremarkable. Spleen is normal in appearance. Adrenal glands are unremarkable. Calcified left interpolar renal lesion is seen. Punctate nonobstructing left interpolar renal calculu s. No hydronephrosis or hydroureter. Bladder is unremarkable. Left common iliac vein stent is seen. A therosclerotic calcifications of aorta and iliacs, particularly the internal iliac arteries. Appendix is not seen. Mild colonic stool content. No small or large bowel dilatation. No bowel obstru ction. No abdominal or pelvic ascites. Left common femoral iliac chain lymph node measures 1.8 x 1.2 cm. Pro minent retroperitoneal lymph nodes are seen. Small fat-containing left inguinal hernia. Bones: Degenerative changes of the spine are seen. Hip joint degenerative changes are noted. IMPRESSION: Marked hepatic hypoattenuation, fatty liver. Pelvic lymphadenopathy, uncertain clinical significance, possibly reactive. No bowel obstruction. Electronically signed by: Jose Khoury MD (04/22/2020 11:00 PM) YUDY
[2020-04-22] MEDS ORDERED: POTASSIUM CHLORIDE 20MEQ 100 ML IV ONE (23:45)
[2020-04-22] MEDS ORDERED: IV RINGERS,LACTATED 1000ML 1,000 ML IV ONE (23:45)
[2020-04-22] MEDS ORDERED: ONDANSETRON PF 4 MG/2 ML VIAL. IV PRN (23:45)
[2020-04-22] MEDS ORDERED: ACETAMINOPHEN 325 MG TABLET. PO PRN (23:45)
[2020-04-22] MEDS ORDERED: fentaNYL PF VIAL 100 MCG/2 ML VIAL IV PRN (23:45)
[2020-04-23 02:51] VITALS: BP 93/54
--- NOTE | 2020-04-23 03:07 | NUR ---
ADMIT: RECEIVED PT FROM ED PT ALERT AND ORIENTED X4 , PT VERY WEAK UNABLE TO MOVE FROM GURNEY TO BED. PLACED CONTINUITY CLERK ON PT SHOWS ST. NO FEVER NOTED IV FLUID INFUSING WITH KCL REPLACEMENT. ORIENTED PT TO ROOM . PLACED PT ON FALL RISK STATUS AND EDUCATED PT ON POC, PT VERBALIZED UNDERSTANDING. PT C/O NAUSEA , EMESIS NOT NOTED AT TIME OF THIS ADMIT.
[2020-04-23] MEDS: ONDANSETRON PF 4 MG/2 ML VIAL. IVP PRN ×2 (03:29→08:18)
[2020-04-23] MEDS: MORPHINE SULFATE 4 MG/ML VIAL. IV PRN ×4 (03:38→18:03)
--- NOTE | 2020-04-23 04:06 | EKG ---
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
--- NOTE | 2020-04-23 05:58 | NUR ---
ULTRA SOUND COMPLETED OF LOWER EXTREMITIES , PT POSITIVE FRO DVT OF LEFT LEG. CALLED PLACED TO DR KATZ TO INFORM OF RESULTS, ANSWERING SERVICE CALLED AT 0600, WAITING FOR CALL BACK.
[2020-04-23 07:00] VITALS: BP_SYST 151; BP_SYST 98; BP_DIAS 106; BP_DIAS 63
--- NOTE | 2020-04-23 07:14 | RAD ---
Left Lower Extremity Venous Doppler Ultrasound History: Swelling, previous DVT, patient on Eliquis Comparison: None Procedure: Color flow, duplex, spectral analysis and 2D images are obtained with and without compress ion in the area of the common femoral vein, superficial femoral vein - femoral vein junction, main fe moral vein (superficial femoral vein) and popliteal vein. Veins of the proximal calf are also imaged. Findings: There is occlusive thrombus throughout the left lower extremity. Impression: Extensive occlusive left lower extremity deep venous thrombosis. Electronically signed by: Gage Faith III, MD (04/23/2020 7:12 AM) [facility]
[2020-04-23 09:17] LABS: CREATININE 1.9 mg/dL (0.7-1.3); GFR 37.6; POTASSIUM 3.1 mmol/L (3.5-5.1)
[2020-04-23 09:26] LABS: PROTHROMBIN TIME PATIENT 18.4 SEC (11.7-14.0)
[2020-04-23 10:19] LABS: LI 0.7 mmol/L (0.6-1.2)
--- NOTE | 2020-04-23 10:53 | PDOC2 ---
CONSULT Date of Service Date of Service DATE: 04/23/20 TIME: 10:44 Reason for Consult Reason for Consult: Left leg swelling, deep vein thrombosis Referring Physician Referring Physician: Dr. Melton Identification/Chief Complaint Chief Complaint Vomiting and diarrhea Left leg swelling Source Source: Patient History of Present Illness Reason for Visit: This is a 50 year old male brought in by EMS for nausea, vomiting and diarrhea since yesterday. He was noted to have left leg swelling upon admission. Venous Ultrasound suggest occlusive thrombus throughout the left lower extremity. CT shows left iliac vein stent, he states this was placed 4 months ago. He is uncertain how long his leg has been swollen. He denies any discomfort. He currently takes Eliquis at home. Past Medical History Cardiovascular: HTN Heme/Onc: No pertinent hx Hepatobiliary: No pertinent hx Psych: No pertinent hx, Bipolar, Other Rheumatologic: No pertinent hx Endocrine: Hypothyroidism Past Surgical History Past Surgical History: Cholecystectomy, Total knee replacement Family History Family History: No Significant, High Cholestrol, Hypertension Social History ALCOHOL: rare Drugs: None Current Problem List Problem List Problems Medical Problems: (1) Dehydration Status: Acute (2) Nausea vomiting and diarrhea Status: Acute (3) Person under investigation for COVID-19 Status: Acute Current Medications Current Medications Current Medications Ringer's Solution 500 ml @ 500 mls/hr 1X ONCE IV Last administered on 04/22/20at 19:15; Start 04/22/20 at 19:15; Stop 04/22/20 at 20:14; Status DC Ondansetron HCl (Zofran) 4 mg 1X ONCE IVP Last administered on 04/22/20at 20:33; Start 04/22/20 at 19:15; Stop 04/22/20 at 19:17; Status DC Lorazepam (Ativan Inj) 2 mg 1X ONCE IVP Last administered on 04/22/20at 20:36; Start 04/22/20 at 20:30; Stop 04/22/20 at 20:31; Status DC Prochlorperazine Edisylate (Compazine) 10 mg 1X ONCE IV Last administered on 04/22/20at 21:45; Start 04/22/20 at 21:45; Stop 04/22/20 at 21:46; Status DC Sodium Chloride 1,000 ml @ 1,000 mls/hr 1X ONCE IV Last administered on at 21:52; Start 04/22/20 at 21:45; Stop 04/22/20 at 22:44; Status DC Potassium Chloride/Sodium Chloride 1,000 ml @ 125 mls/hr Q8H ONCE IV Last administered on 04/22/20at 21:46; Start 04/22/20 at 21:45; Stop 04/23/20 at 05:44; Status DC Diphenhydramine HCl (Benadryl) 25 mg 1X ONCE IVP Last administered on 04/22/20at 22:39; Start 04/22/20 at 22:45; Stop 04/22/20 at 22:46; Status DC Ondansetron HCl (Zofran) 4 mg PRN Q8HRS PRN IV NAUSEA/VOMITING Last administered on 04/22/20at 23:46; Start 04/22/20 at 23:45; Stop 04/23/20 at 02:11; Status DC Morphine Sulfate (Morphine Sulfate) 4 mg PRN Q2HR PRN IV PAIN Last administered on 04/23/20at 03:38; Start 04/22/20 at 23:45; Stop 04/23/20 at 23:44 Fentanyl Citrate (Fentanyl 2ml Vial) 50 mcg PRN Q1HR PRN IV PAIN; Start 04/22/20 at 23:45; Stop 04/23/20 at 23:44 Acetaminophen (Tylenol) 650 mg PRN Q4HRS PRN PO FEVER > 100.3'F; Start 04/22/20 at 23:45; Stop 04/23/20 at 23:44 Ringer's Solution 1,000 ml @ 125 mls/hr 1X ONCE IV Last administered on 04/23/20at 03:29; Start 04/22/20 at 23:45; Stop 04/23/20 at 07:44; Status DC Potassium Chloride/Water 100 ml @ 50 mls/hr 1X ONCE IV Last administered on 04/23/20at 00:04; Start 04/22/20 at 23:45; Stop 04/23/20 at 01:44; Status DC Lorazepam (Ativan Inj) 1 mg PRN Q4HRS PRN IVP ANXIETY / AGITATION Last administered on 04/23/20at 01:48; Start 04/22/20 at 23:45 Ondansetron HCl (Zofran) 4 mg PRN Q4HRS PRN IVP NAUSEA/VOMITING Last administered on 04/23/20at 08:18; Start 04/23/20 at 02:15 Enoxaparin Sodium (Lovenox 60mg Syringe) 60 mg Q12HR SQ Last administered on 04/23/20at 08:18; Start 04/23/20 at 09:00 Apixaban (Eliquis) 2.5 mg DAILY PO ; Start 04/24/20 at 09:00; Status UNV Active Scripts Active Proair Hfa (Albuterol Sulfate) 8.5 Gm Hfa.aer.ad 2.5 Mg NEB PRN Q4HRS PRN 14 Days Reported Percocet 7.5-325 Mg Tablet (Oxycodone/Acetaminophen) 1 Each Tablet 1 Tab PO PRN Q6HRS PRN Zofran (Ondansetron Hcl) 4 Mg Tablet 1 Tab PO Q6HRS Eliquis (Apixaban) 2.5 Mg Tablet Unknown Dose PO UNK Lidocaine PATCH (Lidocaine) 1 Each Adh..patch 1 Each TP DAILY REMOVE AFTER 12 HOURS Clonazepam 1 Mg Tablet 1 Mg PO BID [place] Carbonate 300 Mg Tablet 1 Tab PO BID Zanaflex (Tizanidine Hcl) 4 Mg Capsule 1 Cap PO TID PRN Allergies Allergies: Coded Allergies: daptomycin (Verified Allergy, Intermediate, chills, nausea , 08/09/19) ketamine (Verified Allergy, Intermediate, 09/13/19) I S O L A T I O N *CONTACT* (Verified Allergy, Unknown, Unknown, 08/14/19) mrsa ROS Review of System Constitutional: Denies fever or chills Eyes: Denies any visual disturbances HENT: Denies nasal congestion or sore throat Respiratory: Denies cough or shortness of breath Cardiovascular: Denies any palpitations or chest pain GI: Positive for nausea, vomiting, and diarrhea : Denies dysuria or hematuria Musculoskeletal: As per HPI Integument: As per HPI Neurologic: No gross deficits Physical Exam Physical Exam Gen.: Alert and oriented -3. Cardiac: Heart rate regular. Normal carotid pulses. Lungs: CTA, nonlabored respirations. Abdomen: Soft, nontender, nondistended, no palpable masses. Extremities:2+ palpable femoral pulses, triphasic distal pulses bilaterally. Skin: Mild cyanotic appearance of bilateral toes. Moderate swelling with erythema left calf and foot. Neurological: Motor and sensation intact Vitals VITALS Vital Signs Date Time Temp Pulse Resp B/P (MAP) Pulse Ox O2 Delivery O2 Flow Rate FiO2 04/23/20 08:00 Room Air 04/23/20 07:00 98.6 83 19 98/63 (75) 90 98.6 04/22/20 22:30 2.0 Labs Labs Laboratory Tests Test 04/22/20 19:14 04/22/20 19:50 04/22/20 23:40 04/23/20 02:25 Sodium Level 135 mmol/L (136-145) Potassium Level 2.8 mmol/L (3.5-5.1) Chloride Level 97 mmol/L (98-107) Carbon Dioxide Level 18 mmol/L (21-32) Anion Gap 20 (6-14) Blood Urea Nitrogen 19 mg/dL (8-26) Creatinine 2.1 mg/dL (0.7-1.3) Estimated GFR (Cockcroft-Gault) 33.5 BUN/Creatinine Ratio 9 (6-20) Glucose Level 205 mg/dL (70-99) Calcium Level 9.2 mg/dL (8.5-10.1) Phosphorus Level 5.2 mg/dL (2.6-4.7) Magnesium Level 2.1 mg/dL (1.8-2.4) Total Bilirubin 0.9 mg/dL (0.2-1.0) Aspartate Amino Transf (AST/SGOT) 29 U/L (15-37) Alanine Aminotransferase (ALT/SGPT) 13 U/L (16-63) Alkaline Phosphatase 222 U/L (46-116) Total Protein 6.6 g/dL (6.4-8.2) Albumin 2.2 g/dL (3.4-5.0) Albumin/Globulin Ratio 0.5 (1.0-1.7) Lipase 38 U/L (73-393) White Blood Count 13.5 x10^3/uL (4.0-11.0) Red Blood Count 4.79 x10^6/uL (4.30-5.70) Hemoglobin 12.7 g/dL (13.0-17.5) Hematocrit 38.7 % (39.0-53.0) Mean Corpuscular Volume 81 fL (79-100) Mean Corpuscular Hemoglobin 27 pg (25-35) Mean Corpuscular Hemoglobin Concent 33 g/dL (31-37) Red Cell Distribution Width 17.5 % (11.5-14.5) Platelet Count 442 x10^3/uL (140-400) Neutrophils (%) (Auto) 92 % (31-73) Lymphocytes (%) (Auto) 5 % (24-48) Monocytes (%) (Auto) 3 % (0-9) Eosinophils (%) (Auto) 0 % (0-3) Basophils (%) (Auto) 0 % (0-3) Neutrophils # (Auto) 12.4 x10^3/uL (1.8-7.7) Lymphocytes # (Auto) 0.7 x10^3/uL (1.0-4.8) Monocytes # (Auto) 0.4 x10^3/uL (0.0-1.1) Eosinophils # (Auto) 0.0 x10^3/uL (0.0-0.7) Basophils # (Auto) 0.0 x10^3/uL (0.0-0.2) Segmented Neutrophils % 93 % (35-66) Lymphocytes % 5 % (24-48) Monocytes % 2 % (0-10) Platelet Estimate Increased (ADEQUATE) Anisocytosis Slight Lactic Acid Level 8.5 mmol/L (0.4-2.0) 0.8 mmol/L (0.4-2.0) Troponin I Quantitative 0.115 ng/mL (0.000-0.055) 0.136 ng/mL (0.000-0.055) Ethyl Alcohol Level < 10 mg/dL (0-10) Test 04/23/20 08:20 Prothrombin Time 18.4 SEC (11.7-14.0) Prothromb Time International Ratio 1.6 (0.8-1.1) Sodium Level 141 mmol/L (136-145) Potassium Level 3.1 mmol/L (3.5-5.1) Chloride Level 104 mmol/L (98-107) Carbon Dioxide Level 19 mmol/L (21-32) Anion Gap 18 (6-14) Blood Urea Nitrogen 22 mg/dL (8-26) Creatinine 1.9 mg/dL (0.7-1.3) Estimated GFR (Cockcroft-Gault) 37.6 Glucose Level 160 mg/dL (70-99) Calcium Level 8.0 mg/dL (8.5-10.1) [place] Level 0.7 mmol/L (0.6-1.2) [place] Last Dose Date 04/20/20 [place] Last Dose Time 0800 Laboratory Tests Test 04/22/20 19:14 04/22/20 19:50 04/22/20 23:40 04/23/20 02:25 Sodium Level 135 mmol/L (136-145) Potassium Level 2.8 mmol/L (3.5-5.1) Chloride Level 97 mmol/L (98-107) Carbon Dioxide Level 18 mmol/L (21-32) Anion Gap 20 (6-14) Blood Urea Nitrogen 19 mg/dL (8-26) Creatinine 2.1 mg/dL (0.7-1.3) Estimated GFR (Cockcroft-Gault) 33.5 BUN/Creatinine Ratio 9 (6-20) Glucose Level 205 mg/dL (70-99) Calcium Level 9.2 mg/dL (8.5-10.1) Phosphorus Level 5.2 mg/dL (2.6-4.7) Magnesium Level 2.1 mg/dL (1.8-2.4) Total Bilirubin 0.9 mg/dL (0.2-1.0) Aspartate Amino Transf (AST/SGOT) 29 U/L (15-37) Alanine Aminotransferase (ALT/SGPT) 13 U/L (16-63) Alkaline Phosphatase 222 U/L (46-116) Total Protein 6.6 g/dL (6.4-8.2) Albumin 2.2 g/dL (3.4-5.0) Albumin/Globulin Ratio 0.5 (1.0-1.7) Lipase 38 U/L (73-393) White Blood Count 13.5 x10^3/uL (4.0-11.0) Red Blood Count 4.79 x10^6/uL (4.30-5.70) Hemoglobin 12.7 g/dL (13.0-17.5) Hematocrit 38.7 % (39.0-53.0) Mean Corpuscular Volume 81 fL (79-100) Mean Corpuscular Hemoglobin 27 pg (25-35) Mean Corpuscular Hemoglobin Concent 33 g/dL (31-37) Red Cell Distribution Width 17.5 % (11.5-14.5) Platelet Count 442 x10^3/uL (140-400) Neutrophils (%) (Auto) 92 % (31-73) Lymphocytes (%) (Auto) 5 % (24-48) Monocytes (%) (Auto) 3 % (0-9) Eosinophils (%) (Auto) 0 % (0-3) Basophils (%) (Auto) 0 % (0-3) Neutrophils # (Auto) 12.4 x10^3/uL (1.8-7.7) Lymphocytes # (Auto) 0.7 x10^3/uL (1.0-4.8) Monocytes # (Auto) 0.4 x10^3/uL (0.0-1.1) Eosinophils # (Auto) 0.0 x10^3/uL (0.0-0.7) Basophils # (Auto) 0.0 x10^3/uL (0.0-0.2) Segmented Neutrophils % 93 % (35-66) Lymphocytes % 5 % (24-48) Monocytes % 2 % (0-10) Platelet Estimate Increased (ADEQUATE) Anisocytosis Slight Lactic Acid Level 8.5 mmol/L (0.4-2.0) 0.8 mmol/L (0.4-2.0) Troponin I Quantitative 0.115 ng/mL (0.000-0.055) 0.136 ng/mL (0.000-0.055) Ethyl Alcohol Level < 10 mg/dL (0-10) Test 04/23/20 08:20 Prothrombin Time 18.4 SEC (11.7-14.0) Prothromb Time International Ratio 1.6 (0.8-1.1) Sodium Level 141 mmol/L (136-145) Potassium Level 3.1 mmol/L (3.5-5.1) Chloride Level 104 mmol/L (98-107) Carbon Dioxide Level 19 mmol/L (21-32) Anion Gap 18 (6-14) Blood Urea Nitrogen 22 mg/dL (8-26) Creatinine 1.9 mg/dL (0.7-1.3) Estimated GFR (Cockcroft-Gault) 37.6 Glucose Level 160 mg/dL (70-99) Calcium Level 8.0 mg/dL (8.5-10.1) [place] Level 0.7 mmol/L (0.6-1.2) [place] Last Dose Date 04/20/20 [place] Last Dose Time 0800 Assessment/Plan Assessment/Plan 50 year old male with extensive left lower extremity deep vein thrombosis, he has history of left iliac stent placement. Recommend thrombolysis, discussed with IR. Currently his Cr. 1.9, Nephrology has been consulted, will plan IR procedure when there is improvement in his renal function. Continue Lovenox, leg elevation and compression. Addendum Agree with the above note. Pt seen and examined on 04/23/2020 with Marcus Obrien. 50 year old male with a history of left leg venous disease who underwent venous thrombolysis and iliac vein stenting stenting at [facility] 01/22/2020. He was seen in follow up on 03/12/2020 by myself in the office and duplex showed no residual venous thrombus within the leg. He presents now with nausea and left leg swelling. Duplex scan of the left leg shows extensive DVT including the common femoral vein. He has symptoms of moderate left leg swelling in the calf and foot. His feet have purplish discoloration however strong doppler DP/PT pulses. Recommend full anticoagulation. Consult IR for possible left leg venous thrombolysis. Compression stocking. MARCUS Scott MD, APRN Apr 23, 2020 10:53 KRANTHI HOLLINS MD Apr 23, 2020 11:03
[2020-04-23 11:00] VITALS: BP 120/72
--- NOTE | 2020-04-23 12:30 | PDOC1 ---
History and Physical Date of Admission Date of Admission DATE: 04/23/20 TIME: 12:29 Past Medical History Past Medical History Past Medical History Past Medical History: Anxiety, Bipolar, Depression, Diabetes-Type II, Hypertension, Other Additional Past Medical Histor: chronic back pain Past Surgical History: Cholecystectomy, Knee Replacement, Other Additional Past Surgical Histo: cardiac cath, skin cancer removal, L KNEE SCOPE Smoking Status: Never Smoker Alcohol Use: Rarely Drug Use: None Past Medical History Past Medical History: Anxiety, Bipolar, Depression, Diabetes-Type II, Hypertension, Other Additional Past Medical Histor: chronic back pain Past Surgical History: Cholecystectomy, Knee Replacement, Other Additional Past Surgical Histo: cardiac cath, skin cancer removal, L KNEE SCOPE Smoking Status: Light Tobacco Smoker Alcohol Use: Rarely Drug Use: None FHX HTN Cardiovascular: HTN Heme/Onc: No pertinent hx Hepatobiliary: No pertinent hx Psych: No pertinent hx, Bipolar, Other Rheumatologic: No pertinent hx Endocrine: Hypothyroidism Past Surgical History Past Surgical History: Cholecystectomy, Total knee replacement Family History Family History: No Significant, High Cholestrol, Hypertension Social History ALCOHOL: rare Drugs: None Current Problem List Problem List Problems Medical Problems: (1) Dehydration Status: Acute (2) Nausea vomiting and diarrhea Status: Acute (3) Person under investigation for COVID-19 Status: Acute Current Medications Current Medications Current Medications Ringer's Solution 500 ml @ 500 mls/hr 1X ONCE IV Last administered on 04/22/20at 19:15; Start 04/22/20 at 19:15; Stop 04/22/20 at 20:14; Status DC Ondansetron HCl (Zofran) 4 mg 1X ONCE IVP Last administered on 04/22/20at 20:33; Start 04/22/20 at 19:15; Stop 04/22/20 at 19:17; Status DC Lorazepam (Ativan Inj) 2 mg 1X ONCE IVP Last administered on 04/22/20at 20:36; Start 04/22/20 at 20:30; Stop 04/22/20 at 20:31; Status DC Prochlorperazine Edisylate (Compazine) 10 mg 1X ONCE IV Last administered on 04/22/20at 21:45; Start 04/22/20 at 21:45; Stop 04/22/20 at 21:46; Status DC Sodium Chloride 1,000 ml @ 1,000 mls/hr 1X ONCE IV Last administered on 04/22/20at 21:52; Start 04/22/20 at 21:45; Stop 04/22/20 at 22:44; Status DC Potassium Chloride/Sodium Chloride 1,000 ml @ 125 mls/hr Q8H ONCE IV Last administered on 04/22/20at 21:46; Start 04/22/20 at 21:45; Stop 04/23/20 at 05:44; Status DC Diphenhydramine HCl (Benadryl) 25 mg 1X ONCE IVP Last administered on 04/22/20at 22:39; Start 04/22/20 at 22:45; Stop 04/22/20 at 22:46; Status DC Ondansetron HCl (Zofran) 4 mg PRN Q8HRS PRN IV NAUSEA/VOMITING Last administered on 04/22/20at 23:46; Start 04/22/20 at 23:45; Stop 04/23/20 at 02:11; Status DC Morphine Sulfate (Morphine Sulfate) 4 mg PRN Q2HR PRN IV PAIN Last administered on 04/23/20at 03:38; Start 04/22/20 at 23:45; Stop 04/23/20 at 23:44 Fentanyl Citrate (Fentanyl 2ml Vial) 50 mcg PRN Q1HR PRN IV PAIN; Start 04/22/20 at 23:45; Stop 04/23/20 at 23:44 Acetaminophen (Tylenol) 650 mg PRN Q4HRS PRN PO FEVER > 100.3'F; Start 04/22/20 at 23:45; Stop 04/23/20 at 23:44 Ringer's Solution 1,000 ml @ 125 mls/hr 1X ONCE IV Last administered on at 03:29; Start 04/22/20 at 23:45; Stop 04/23/20 at 07:44; Status DC Potassium Chloride/Water 100 ml @ 50 mls/hr 1X ONCE IV Last administered on 04/23/20at 00:04; Start 04/22/20 at 23:45; Stop 04/23/20 at 01:44; Status DC Lorazepam (Ativan Inj) 1 mg PRN Q4HRS PRN IVP ANXIETY / AGITATION Last administered on 04/23/20at 01:48; Start 04/22/20 at 23:45 Ondansetron HCl (Zofran) 4 mg PRN Q4HRS PRN IVP NAUSEA/VOMITING Last administered on 04/23/20at 08:18; Start 04/23/20 at 02:15 Enoxaparin Sodium (Lovenox 60mg Syringe) 60 mg Q12HR SQ Last administered on 04/23/20at 08:18; Start 04/23/20 at 09:00 Apixaban (Eliquis) 2.5 mg DAILY PO ; Start 04/24/20 at 09:00; Status UNV Active Scripts Active Proair Hfa (Albuterol Sulfate) 8.5 Gm Hfa.aer.ad 2.5 Mg NEB PRN Q4HRS PRN 14 Days Reported Percocet 7.5-325 Mg Tablet (Oxycodone/Acetaminophen) 1 Each Tablet 1 Tab PO PRN Q6HRS PRN Zofran (Ondansetron Hcl) 4 Mg Tablet 1 Tab PO Q6HRS Eliquis (Apixaban) 2.5 Mg Tablet Unknown Dose PO UNK Lidocaine PATCH (Lidocaine) 1 Each Adh..patch 1 Each TP DAILY REMOVE AFTER 12 HOURS Clonazepam 1 Mg Tablet 1 Mg PO BID Olmito And Olmito Carbonate 300 Mg Tablet 1 Tab PO BID Zanaflex (Tizanidine Hcl) 4 Mg Capsule 1 Cap PO TID PRN Allergies Allergies: Coded Allergies: daptomycin (Verified Allergy, Intermediate, chills, nausea , 08/09/19) ketamine (Verified Allergy, Intermediate, 09/13/19) I S O L A T I O N *CONTACT* (Verified Allergy, Unknown, Unknown, 08/14/19) mrsa Vitals Vitals Vital Signs Date Time Temp Pulse Resp B/P (MAP) Pulse Ox O2 Delivery O2 Flow Rate FiO2 04/23/20 11:00 98.6 128 17 120/72 (88) 93 Room Air 98.6 04/22/20 22:30 2.0 Labs Labs Laboratory Tests Test 04/22/20 19:14 04/22/20 19:50 04/22/20 23:40 04/23/20 02:25 Sodium Level 135 mmol/L (136-145) Potassium Level 2.8 mmol/L (3.5-5.1) Chloride Level 97 mmol/L (98-107) Carbon Dioxide Level 18 mmol/L (21-32) Anion Gap 20 (6-14) Blood Urea Nitrogen 19 mg/dL (8-26) Creatinine 2.1 mg/dL (0.7-1.3) Estimated GFR (Cockcroft-Gault) 33.5 BUN/Creatinine Ratio 9 (6-20) Glucose Level 205 mg/dL (70-99) Calcium Level 9.2 mg/dL (8.5-10.1) Phosphorus Level 5.2 mg/dL (2.6-4.7) Magnesium Level 2.1 mg/dL (1.8-2.4) Total Bilirubin 0.9 mg/dL (0.2-1.0) Aspartate Amino Transf (AST/SGOT) 29 U/L (15-37) Alanine Aminotransferase (ALT/SGPT) 13 U/L (16-63) Alkaline Phosphatase 222 U/L (46-116) Total Protein 6.6 g/dL (6.4-8.2) Albumin 2.2 g/dL (3.4-5.0) Albumin/Globulin Ratio 0.5 (1.0-1.7) Lipase 38 U/L (73-393) White Blood Count 13.5 x10^3/uL (4.0-11.0) Red Blood Count 4.79 x10^6/uL (4.30-5.70) Hemoglobin 12.7 g/dL (13.0-17.5) Hematocrit 38.7 % (39.0-53.0) Mean Corpuscular Volume 81 fL (79-100) Mean Corpuscular Hemoglobin 27 pg (25-35) Mean Corpuscular Hemoglobin Concent 33 g/dL (31-37) Red Cell Distribution Width 17.5 % (11.5-14.5) Platelet Count 442 x10^3/uL (140-400) Neutrophils (%) (Auto) 92 % (31-73) Lymphocytes (%) (Auto) 5 % (24-48) Monocytes (%) (Auto) 3 % (0-9) Eosinophils (%) (Auto) 0 % (0-3) Basophils (%) (Auto) 0 % (0-3) Neutrophils # (Auto) 12.4 x10^3/uL (1.8-7.7) Lymphocytes # (Auto) 0.7 x10^3/uL (1.0-4.8) Monocytes # (Auto) 0.4 x10^3/uL (0.0-1.1) Eosinophils # (Auto) 0.0 x10^3/uL (0.0-0.7) Basophils # (Auto) 0.0 x10^3/uL (0.0-0.2) Segmented Neutrophils % 93 % (35-66) Lymphocytes % 5 % (24-48) Monocytes % 2 % (0-10) Platelet Estimate Increased (ADEQUATE) Anisocytosis Slight Lactic Acid Level 8.5 mmol/L (0.4-2.0) 0.8 mmol/L (0.4-2.0) Troponin I Quantitative 0.115 ng/mL (0.000-0.055) 0.136 ng/mL (0.000-0.055) Ethyl Alcohol Level < 10 mg/dL (0-10) Test 04/23/20 08:20 04/23/20 11:23 Prothrombin Time 18.4 SEC (11.7-14.0) Prothromb Time International Ratio 1.6 (0.8-1.1) Sodium Level 141 mmol/L (136-145) Potassium Level 3.1 mmol/L (3.5-5.1) Chloride Level 104 mmol/L (98-107) Carbon Dioxide Level 19 mmol/L (21-32) Anion Gap 18 (6-14) Blood Urea Nitrogen 22 mg/dL (8-26) Creatinine 1.9 mg/dL (0.7-1.3) Estimated GFR (Cockcroft-Gault) 37.6 Glucose Level 160 mg/dL (70-99) Calcium Level 8.0 mg/dL (8.5-10.1) Olmito And Olmito Level 0.7 mmol/L (0.6-1.2) Olmito And Olmito Last Dose Date 04/20/20 Olmito And Olmito Last Dose Time 0800 SARS-CoV-2 Antigen (Rapid) Negative (NEGATIVE) Laboratory Tests Test 04/22/20 19:14 04/22/20 19:50 04/22/20 23:40 04/23/20 02:25 Sodium Level 135 mmol/L (136-145) Potassium Level 2.8 mmol/L (3.5-5.1) Chloride Level 97 mmol/L (98-107) Carbon Dioxide Level 18 mmol/L (21-32) Anion Gap 20 (6-14) Blood Urea Nitrogen 19 mg/dL (8-26) Creatinine 2.1 mg/dL (0.7-1.3) Estimated GFR (Cockcroft-Gault) 33.5 BUN/Creatinine Ratio 9 (6-20) Glucose Level 205 mg/dL (70-99) Calcium Level 9.2 mg/dL (8.5-10.1) Phosphorus Level 5.2 mg/dL (2.6-4.7) Magnesium Level 2.1 mg/dL (1.8-2.4) Total Bilirubin 0.9 mg/dL (0.2-1.0) Aspartate Amino Transf (AST/SGOT) 29 U/L (15-37) Alanine Aminotransferase (ALT/SGPT) 13 U/L (16-63) Alkaline Phosphatase 222 U/L (46-116) Total Protein 6.6 g/dL (6.4-8.2) Albumin 2.2 g/dL (3.4-5.0) Albumin/Globulin Ratio 0.5 (1.0-1.7) Lipase 38 U/L (73-393) White Blood Count 13.5 x10^3/uL (4.0-11.0) Red Blood Count 4.79 x10^6/uL (4.30-5.70) Hemoglobin 12.7 g/dL (13.0-17.5) Hematocrit 38.7 % (39.0-53.0) Mean Corpuscular Volume 81 fL (79-100) Mean Corpuscular Hemoglobin 27 pg (25-35) Mean Corpuscular Hemoglobin Concent 33 g/dL (31-37) Red Cell Distribution Width 17.5 % (11.5-14.5) Platelet Count 442 x10^3/uL (140-400) Neutrophils (%) (Auto) 92 % (31-73) Lymphocytes (%) (Auto) 5 % (24-48) Monocytes (%) (Auto) 3 % (0-9) Eosinophils (%) (Auto) 0 % (0-3) Basophils (%) (Auto) 0 % (0-3) Neutrophils # (Auto) 12.4 x10^3/uL (1.8-7.7) Lymphocytes # (Auto) 0.7 x10^3/uL (1.0-4.8) Monocytes # (Auto) 0.4 x10^3/uL (0.0-1.1) Eosinophils # (Auto) 0.0 x10^3/uL (0.0-0.7) Basophils # (Auto) 0.0 x10^3/uL (0.0-0.2) Segmented Neutrophils % 93 % (35-66) Lymphocytes % 5 % (24-48) Monocytes % 2 % (0-10) Platelet Estimate Increased (ADEQUATE) Anisocytosis Slight Lactic Acid Level 8.5 mmol/L (0.4-2.0) 0.8 mmol/L (0.4-2.0) Troponin I Quantitative 0.115 ng/mL (0.000-0.055) 0.136 ng/mL (0.000-0.055) Ethyl Alcohol Level < 10 mg/dL (0-10) Test 04/23/20 08:20 04/23/20 11:23 Prothrombin Time 18.4 SEC (11.7-14.0) Prothromb Time International Ratio 1.6 (0.8-1.1) Sodium Level 141 mmol/L (136-145) Potassium Level 3.1 mmol/L (3.5-5.1) Chloride Level 104 mmol/L (98-107) Carbon Dioxide Level 19 mmol/L (21-32) Anion Gap 18 (6-14) Blood Urea Nitrogen 22 mg/dL (8-26) Creatinine 1.9 mg/dL (0.7-1.3) Estimated GFR (Cockcroft-Gault) 37.6 Glucose Level 160 mg/dL (70-99) Calcium Level 8.0 mg/dL (8.5-10.1) Olmito And Olmito Level 0.7 mmol/L (0.6-1.2) Olmito And Olmito Last Dose Date 04/20/20 Olmito And Olmito Last Dose Time 0800 SARS-CoV-2 Antigen (Rapid) Negative (NEGATIVE) Images Images Left Lower Extremity Venous Doppler Ultrasound History: Swelling, previous DVT, patient on Eliquis Comparison: None Procedure: Color flow, duplex, spectral analysis and 2D images are obtained with and without compression in the area of the common femoral vein, superficial femoral vein - femoral vein junction, main femoral vein (superficial femoral vein) and popliteal vein. Veins of the proximal calf are also imaged. Findings: There is occlusive thrombus throughout the left lower extremity. Impression: Extensive occlusive left lower extremity deep venous thrombosis. Electronically signed by: Gina Mcintosh III, MD (04/23/2020 7:12 AM) [facility] DICTATED and SIGNED BY: GINA MCINTOSH III, MD DATE: 04/23/20 [id number] EXAM: CT Abdomen and Pelvis without IV contrast CLINICAL HISTORY: Vomiting COMPARISON: 10/31/2019 TECHNIQUE: Helical CT of the abdomen and pelvis without intravenous contrast. Axial, coronal and sagittal reformatted images were generated. PQRS compliance statement - One or more of the following individualized dose reduction techniques were utilized for this study: 1. Automated exposure control 2. Adjustment of the mA and/or kV according to patient size 3. Use of iterative reconstruction technique FINDINGS: Lack of intravenous contrast limits evaluation of solid organs, vasculature, and lymph nodes. Examination is limited by motion artifact as well. Lower chest: Lung bases are clear. Trace pericardial effusion. Abdomen and Pelvis: Hepatic hypoattenuation, likely fatty liver. Cholecystectomy clips are seen. No biliary ductal dilatation. Pancreas is unremarkable. Spleen is normal in appearance. Adrenal glands are unremarkable. Calcified left interpolar renal lesion is seen. Punctate nonobstructing left interpolar renal calculus. No hydronephrosis or hydroureter. Bladder is unremarkable. Left common iliac vein stent is seen. Atherosclerotic calcifications of aorta and iliacs, particularly the internal iliac arteries. Appendix is not seen. Mild colonic stool content. No small or large bowel dilatation. No bowel obstruction. No abdominal or pelvic ascites. Left common femoral iliac chain lymph node measures 1.8 x 1.2 cm. Prominent retroperitoneal lymph nodes are seen. Small fat-containing left inguinal hernia. Bones: Degenerative changes of the spine are seen. Hip joint degenerative changes are noted. IMPRESSION: Marked hepatic hypoattenuation, fatty liver. Pelvic lymphadenopathy, uncertain clinical significance, possibly reactive. No bowel obstruction. Electronically signed by: Jose Colón MD (04/22/2020 11:00 PM) [facility] DICTATED and SIGNED BY: JOSE COLÓN MD VTE Prophylaxis Ordered VTE Prophylaxis Devices: Yes VTE Pharmacological Prophylaxi: Yes Assessment/Plan Assessment/Plan Impression: Dehydration Additional Impressions: Person under investigation for COVID-19 Nausea vomiting and diarrhea Extensive occlusive left lower extremity deep venous thrombosis. DIABETES Bipolar disease PLAN ADMITTED GI CONSULT Justifications for Admission Other Justification JAMAL MORRIS MD Apr 23, 2020 12:30
--- NOTE | 2020-04-23 14:28 | PDOC2 ---
GI CONSULT Date of Service: DATE: 04/23/20 TIME: 14:04 Reason For Consult: vomiting HPI: HPI: 50 y/o male who we've seen in the past for n/v. Now admitted w/ LLE DVT. H/o same w/ iliac stent on Eliquis. Vascular surgery and IR are following w/ plans for thrombectomy tomorrow. Nurse says might have been off Eliquis due to vomiting. GI-carnes, had gallstone pancreatitis in 09/2019 - s/p cholecystectomy then. The next month was admitted w/ strep bacteremia/resp failure - imaging at that time noted pancreatic pseudocysts. Since then, apparently underwent endoscopic drainage of pseudocyst w/ stent and necrosectomy at . History is challenging - he's vomiting and not feeling well. He tells me vomiting started yesterday w/o precipitating events. Denies bleeding and abdominal pain but does have low back pain. Also denies diarrhea and constipation. Tells me he was eating well before vomiting started. He has lost significant weight since I last saw. Per previous encounters, h/o reflux in his 20s when he chewed tobacco. Reported previous normal EGD, no previous colonoscopy. Fatty liver on imaging. No PUD history. H/o chronic pain and ACD. He can't remember what he takes for pain at home. He says he takes nothing for his stomach but also names Zofran. PMH: PMH: HTN, ANALIA, DM (in DKA here in past), hypothyroidism, bipolar, MSRA, anemia, strep bacteremia w/ resp failure, PVD, vit D deficiency, pneumothorax tonsillectomy, bilateral knee replacement, left knee I&D, vasectomy, cardiac cath, cholecystectomy, pancreatic pseudocyst drainage and necrosectomy, left iliac stent FH: Family History: No pertinent hx (per previous encounters denies GI cancers, pancreatitis, GB disease) Social History: Smoke: <1 pack per day ALCOHOL: rare Drugs: None ROS: A bit difficult to obtain - actively vomiting. Vitals: Vitals: Vital Signs Date Time Temp Pulse Resp B/P (MAP) Pulse Ox O2 Delivery O2 Flow Rate FiO2 04/23/20 13:51 Room Air 04/23/20 11:00 98.6 128 17 120/72 (88) 93 98.6 04/22/20 22:30 2.0 Labs: Labs: Laboratory Tests Test 04/22/20 19:14 04/22/20 19:50 04/22/20 23:40 04/23/20 02:25 Sodium Level 135 mmol/L (136-145) Potassium Level 2.8 mmol/L (3.5-5.1) Chloride Level 97 mmol/L (98-107) Carbon Dioxide Level 18 mmol/L (21-32) Anion Gap 20 (6-14) Blood Urea Nitrogen 19 mg/dL (8-26) Creatinine 2.1 mg/dL (0.7-1.3) Estimated GFR (Cockcroft-Gault) 33.5 BUN/Creatinine Ratio 9 (6-20) Glucose Level 205 mg/dL (70-99) Calcium Level 9.2 mg/dL (8.5-10.1) Phosphorus Level 5.2 mg/dL (2.6-4.7) Magnesium Level 2.1 mg/dL (1.8-2.4) Total Bilirubin 0.9 mg/dL (0.2-1.0) Aspartate Amino Transf (AST/SGOT) 29 U/L (15-37) Alanine Aminotransferase (ALT/SGPT) 13 U/L (16-63) Alkaline Phosphatase 222 U/L (46-116) Total Protein 6.6 g/dL (6.4-8.2) Albumin 2.2 g/dL (3.4-5.0) Albumin/Globulin Ratio 0.5 (1.0-1.7) Lipase 38 U/L (73-393) White Blood Count 13.5 x10^3/uL (4.0-11.0) Red Blood Count 4.79 x10^6/uL (4.30-5.70) Hemoglobin 12.7 g/dL (13.0-17.5) Hematocrit 38.7 % (39.0-53.0) Mean Corpuscular Volume 81 fL (79-100) Mean Corpuscular Hemoglobin 27 pg (25-35) Mean Corpuscular Hemoglobin Concent 33 g/dL (31-37) Red Cell Distribution Width 17.5 % (11.5-14.5) Platelet Count 442 x10^3/uL (140-400) Neutrophils (%) (Auto) 92 % (31-73) Lymphocytes (%) (Auto) 5 % (24-48) Monocytes (%) (Auto) 3 % (0-9) Eosinophils (%) (Auto) 0 % (0-3) Basophils (%) (Auto) 0 % (0-3) Neutrophils # (Auto) 12.4 x10^3/uL (1.8-7.7) Lymphocytes # (Auto) 0.7 x10^3/uL (1.0-4.8) Monocytes # (Auto) 0.4 x10^3/uL (0.0-1.1) Eosinophils # (Auto) 0.0 x10^3/uL (0.0-0.7) Basophils # (Auto) 0.0 x10^3/uL (0.0-0.2) Segmented Neutrophils % 93 % (35-66) Lymphocytes % 5 % (24-48) Monocytes % 2 % (0-10) Platelet Estimate Increased (ADEQUATE) Anisocytosis Slight Lactic Acid Level 8.5 mmol/L (0.4-2.0) 0.8 mmol/L (0.4-2.0) Troponin I Quantitative 0.115 ng/mL (0.000-0.055) 0.136 ng/mL (0.000-0.055) Ethyl Alcohol Level < 10 mg/dL (0-10) Test 04/23/20 08:20 04/23/20 11:23 Prothrombin Time 18.4 SEC (11.7-14.0) Prothromb Time International Ratio 1.6 (0.8-1.1) Sodium Level 141 mmol/L (136-145) Potassium Level 3.1 mmol/L (3.5-5.1) Chloride Level 104 mmol/L (98-107) Carbon Dioxide Level 19 mmol/L (21-32) Anion Gap 18 (6-14) Blood Urea Nitrogen 22 mg/dL (8-26) Creatinine 1.9 mg/dL (0.7-1.3) Estimated GFR (Cockcroft-Gault) 37.6 Glucose Level 160 mg/dL (70-99) Calcium Level 8.0 mg/dL (8.5-10.1) Trinity Level 0.7 mmol/L (0.6-1.2) Trinity Last Dose Date 04/20/20 Trinity Last Dose Time 0800 SARS-CoV-2 Antigen (Rapid) Negative (NEGATIVE) Allergies: Coded Allergies: daptomycin (Verified Allergy, Intermediate, chills, nausea , 08/09/19) ketamine (Verified Allergy, Intermediate, 09/13/19) I S O L A T I O N *CONTACT* (Verified Allergy, Unknown, Unknown, 08/14/19) mrsa Medications: Current Medications Medications (Trade) Dose Ordered Sig/Edilma Route PRN Reason Start Time Stop Time Status Last Admin Dose Admin Ringer's Solution 500 ml @ 500 mls/hr 1X ONCE IV 04/22/20 19:15 04/22/20 20:14 DC 04/22/20 19:15 Ondansetron HCl (Zofran) 4 mg 1X ONCE IVP 04/22/20 19:15 04/22/20 19:17 DC 04/22/20 20:33 Lorazepam (Ativan Inj) 2 mg 1X ONCE IVP 04/22/20 20:30 04/22/20 20:31 DC 04/22/20 20:36 Prochlorperazine Edisylate (Compazine) 10 mg 1X ONCE IV 04/22/20 21:45 04/22/20 21:46 DC 04/22/20 21:45 Sodium Chloride 1,000 ml @ 1,000 mls/hr 1X ONCE IV 04/22/20 21:45 04/22/20 22:44 DC 04/22/20 21:52 Potassium Chloride/Sodium Chloride 1,000 ml @ 125 mls/hr Q8H ONCE IV 04/22/20 21:45 04/23/20 05:44 DC 04/22/20 21:46 Diphenhydramine HCl (Benadryl) 25 mg 1X ONCE IVP 04/22/20 22:45 04/22/20 22:46 DC 04/22/20 22:39 Ondansetron HCl (Zofran) 4 mg PRN Q8HRS PRN IV NAUSEA/VOMITING 04/22/20 23:45 04/23/20 02:11 DC 04/22/20 23:46 Morphine Sulfate (Morphine Sulfate) 4 mg PRN Q2HR PRN IV PAIN 04/22/20 23:45 04/23/20 23:44 04/23/20 13:51 Ringer's Solution 1,000 ml @ 125 mls/hr 1X ONCE IV 04/22/20 23:45 04/23/20 07:44 DC 04/23/20 03:29 Potassium Chloride/Water 100 ml @ 50 mls/hr 1X ONCE IV 04/22/20 23:45 04/23/20 01:44 DC 04/23/20 00:04 Lorazepam (Ativan Inj) 1 mg PRN Q4HRS PRN IVP ANXIETY / AGITATION 04/22/20 23:45 04/23/20 01:48 Ondansetron HCl (Zofran) 4 mg PRN Q4HRS PRN IVP NAUSEA/VOMITING 04/23/20 02:15 04/23/20 08:18 Enoxaparin Sodium (Lovenox 60mg Syringe) 60 mg Q12HR SQ 04/23/20 09:00 04/23/20 08:18 Imaging: Imaging: CT A/P 04/23 FINDINGS: Lack of intravenous contrast limits evaluation of solid organs, vasculature, and lymph nodes. Examination is limited by motion artifact as well. Lower chest: Lung bases are clear. Trace pericardial effusion. Abdomen and Pelvis: Hepatic hypoattenuation, likely fatty liver. Cholecystectomy clips are seen. No biliary ductal dilatation. Pancreas is unremarkable. Spleen is normal in appearance. Adrenal glands are unremarkable. Calcified left interpolar renal lesion is seen. Punctate nonobstructing left interpolar renal calculus. No hydronephrosis or hydroureter. Bladder is unremarkable. Left common iliac vein stent is seen. Atherosclerotic calcifications of aorta and iliacs, particularly the internal iliac arteries. Appendix is not seen. Mild colonic stool content. No small or large bowel dilatation. No bowel obstruction. No abdominal or pelvic ascites. Left common femoral iliac chain lymph node measures 1.8 x 1.2 cm. Prominent retroperitoneal lymph nodes are seen. Small fat-containing left inguinal hernia. Bones: Degenerative changes of the spine are seen. Hip joint degenerative changes are noted. IMPRESSION: Marked hepatic hypoattenuation, fatty liver. Pelvic lymphadenopathy, uncertain clinical significance, possibly reactive. No bowel obstruction. LE US 04/22 Impression: Extensive occlusive left lower extremity deep venous thrombosis. PE: GEN: laying on left side, vomiting HEENT: Atraumatic, PERRL LUNGS: diminished/difficult exam HEART: tachycardic ABD: soft, non-distended, non-tender EXTREMITY/SKIN: left foot purple w/ edema NEURO/PSYCH: A & O 3 A/P: A/P: N/v, weight loss, LLE DVT Leukocytosis, ACD, hypokalemia, JAQUAN, lactic acidosis, mildly elevated troponin, elevated Alk Phos (noted in past) PVD w/ left iliac stent - compliant w/ Eliquis? H/o GERD CRC screen - none S/p cholecystectomy H/o gallstone pancreatitis and pancreatic pseudocysts s/p drainage and necrosectomy at 01/2020 Hepatic steatosis DM Chronic pain Rapid COVID test negative 04/23/20 -- We've seen for n/v in the past - ?gastroparesis ?viral Continue per IR and vascular re: DVT. Has regular diet ordered but actively vomiting when I saw - emesis dark brown - also has a piece of chocolate cake in emesis bucket. D/w Dr. Marrero - try IV PPI, NPO, IVF, check tox screen, and observe from GI standpoint. ADAN PEREZ Apr 23, 2020 14:28
[2020-04-23] MEDS ORDERED: PANTOPRAZOLE IV PUSH 40 MG VIAL. IVP SCH (14:30)
--- NOTE | 2020-04-23 14:51 | NUR ---
SW following for discharge planning. Spoke with RN and reviewed chart. Pt remains on room air, NPO, IV pain medications, COVID pending. Discharge plan is self-care. SW available as needed.
[2020-04-23 15:00] VITALS: BP 109/76
[2020-04-23] MEDS: PANTOPRAZOLE IV PUSH 40 MG VIAL. IVP SCH (16:30)
[2020-04-23] MEDS: AMINO AC 3%/ELECTROLYTE/GLYCER 1,000 ML IV SCH (18:02)
--- NOTE | 2020-04-23 18:15 | PDOC2 ---
CONSULT Date of Consult Date of Consult DATE: 04/23/20 TIME: 18:03 Reason for Consult Reason for Consult: JAQUAN Referring Physician Referring Physician: ALEXANDRA Identification/Chief Complaint Chief Complaint N/V/D Source Source: Chart review History of Present Illness Reason for Visit: THIS IS A 50 YR OLD WITH DEHYDRATION. HAS HAS N/V/D. GI EVALUATION ONGOING. HX OF GALLSTONE PANCREATITIS AND PANCREATIC PSEUDOCYST DRAINAGE AND ? STENT PLACEMENT WHICH WAS THEN LATER REMOVED. NO KNOWN CKD HX. CR IS 2.1 WITH K OF 2.8. IMAGING NOTABLE FOR CALCIFIED RIGHT RENAL MASS AND A NON OBSTRUCTING LEFT RENAL STONE. HE ALSO HAS AN AG MET ACIDOSIS. NO NEPHROTOXIN OR HEMODYNAMIC INSTABILITY NOTED. NO HX OF NEPHROLITHIASIS. HE ALSO HAS LLE EDEMA. HAS BEEN DX WITH LLE DVT. APPARENTLY HAS HAD LEFT ILIAC VEIN STENTING WHILE AT [facility] RECENTLY. DETAILS UNKNOWN. Past Medical History Cardiovascular: HTN Heme/Onc: No pertinent hx Hepatobiliary: No pertinent hx Psych: No pertinent hx, Bipolar, Other Rheumatologic: No pertinent hx Renal/: No pertinent hx Endocrine: Hypothyroidism Past Surgical History Past Surgical History: Cholecystectomy, Total knee replacement Family History Family History: No Significant, High Cholestrol, Hypertension Social History <1 pack per day ALCOHOL: rare Drugs: None Current Problem List Problem List Problems Medical Problems: (1) Dehydration Status: Acute (2) Nausea vomiting and diarrhea Status: Acute (3) Person under investigation for COVID-19 Status: Acute Current Medications Current Medications Current Medications Ringer's Solution 500 ml @ 500 mls/hr 1X ONCE IV Last administered on 04/22/20at 19:15; Start 04/22/20 at 19:15; Stop 04/22/20 at 20:14; Status DC Ondansetron HCl (Zofran) 4 mg 1X ONCE IVP Last administered on 04/22/20at 20:33; Start 04/22/20 at 19:15; Stop 04/22/20 at 19:17; Status DC Lorazepam (Ativan Inj) 2 mg 1X ONCE IVP Last administered on 04/22/20at 20:36; Start 04/22/20 at 20:30; Stop 04/22/20 at 20:31; Status DC Prochlorperazine Edisylate (Compazine) 10 mg 1X ONCE IV Last administered on 04/22/20at 21:45; Start 04/22/20 at 21:45; Stop 04/22/20 at 21:46; Status DC Sodium Chloride 1,000 ml @ 1,000 mls/hr 1X ONCE IV Last administered on 04/22/20at 21:52; Start 04/22/20 at 21:45; Stop 04/22/20 at 22:44; Status DC Potassium Chloride/Sodium Chloride 1,000 ml @ 125 mls/hr Q8H ONCE IV Last administered on 04/22/20at 21:46; Start 04/22/20 at 21:45; Stop 04/23/20 at 05:44; Status DC Diphenhydramine HCl (Benadryl) 25 mg 1X ONCE IVP Last administered on 04/22/20at 22:39; Start 04/22/20 at 22:45; Stop 04/22/20 at 22:46; Status DC Ondansetron HCl (Zofran) 4 mg PRN Q8HRS PRN IV NAUSEA/VOMITING Last administered on 04/22/20at 23:46; Start 04/22/20 at 23:45; Stop 04/23/20 at 02:11; Status DC Morphine Sulfate (Morphine Sulfate) 4 mg PRN Q2HR PRN IV PAIN Last administered on 04/23/20at 13:51; Start 04/22/20 at 23:45; Stop 04/23/20 at 23:44 Fentanyl Citrate (Fentanyl 2ml Vial) 50 mcg PRN Q1HR PRN IV PAIN; Start 04/22/20 at 23:45; Stop 04/23/20 at 23:44 Acetaminophen (Tylenol) 650 mg PRN Q4HRS PRN PO FEVER > 100.3'F; Start 04/22/20 at 23:45; Stop 04/23/20 at 23:44 Ringer's Solution 1,000 ml @ 125 mls/hr 1X ONCE IV Last administered on 04/23/20at 03:29; Start 04/22/20 at 23:45; Stop 04/23/20 at 07:44; Status DC Potassium Chloride/Water 100 ml @ 50 mls/hr 1X ONCE IV Last administered on 04/23/20at 00:04; Start 04/22/20 at 23:45; Stop 04/23/20 at 01:44; Status DC Lorazepam (Ativan Inj) 1 mg PRN Q4HRS PRN IVP ANXIETY / AGITATION Last administered on 04/23/20at 01:48; Start 04/22/20 at 23:45 Ondansetron HCl (Zofran) 4 mg PRN Q4HRS PRN IVP NAUSEA/VOMITING Last administered on 04/23/20at 08:18; Start 04/23/20 at 02:15 Enoxaparin Sodium (Lovenox 60mg Syringe) 60 mg Q12HR SQ Last administered on 04/23/20at 08:18; Start 04/23/20 at 09:00 Apixaban (Eliquis) 2.5 mg DAILY PO ; Start 04/24/20 at 09:00; Status UNV Pantoprazole Sodium (PROTONIX VIAL for IV PUSH) 40 mg DAILYAC IVP ; Start 04/11 06/29 at 14:30; Stop 04/23/20 at 14:33; Status DC Pantoprazole Sodium (PROTONIX VIAL for IV PUSH) 40 mg BIDAC IVP Last administ ered on 04/23/20at 16:30; Start 04/23/20 at 16:30 Amino Acids/ Glycerin/ Electrolytes 1,000 ml @ 80 mls/hr [id number] IV ; Start at 16:45 Active Scripts Active Proair Hfa (Albuterol Sulfate) 8.5 Gm Hfa.aer.ad 2.5 Mg NEB PRN Q4HRS PRN 14 Days Reported Percocet 7.5-325 Mg Tablet (Oxycodone/Acetaminophen) 1 Each Tablet 1 Tab PO PRN Q6HRS PRN Zofran (Ondansetron Hcl) 4 Mg Tablet 1 Tab PO Q6HRS Eliquis (Apixaban) 2.5 Mg Tablet Unknown Dose PO UNK Lidocaine PATCH (Lidocaine) 1 Each Adh..patch 1 Each TP DAILY REMOVE AFTER 12 HOURS Clonazepam 1 Mg Tablet 1 Mg PO BID [place] Carbonate 300 Mg Tablet 1 Tab PO BID Zanaflex (Tizanidine Hcl) 4 Mg Capsule 1 Cap PO TID PRN Allergies Allergies: Coded Allergies: daptomycin (Verified Allergy, Intermediate, chills, nausea , 08/09/19) ketamine (Verified Allergy, Intermediate, 09/13/19) I S O L A T I O N *CONTACT* (Verified Allergy, Unknown, Unknown, 08/14/19) mrsa ROS Review of System UNRELIABLE, CONFUSED Physical Exam General: Alert, Cooperative, No acute distress HEENT: Atraumatic Lungs: Clear to auscultation Heart: Regular rate Abdomen: Normal bowel sounds, Soft, Other Extremities: No clubbing, No cyanosis Skin: No rashes Neuro: Normal speech Psych/Mental Status: Mood NL MUSCULOSKELETAL: No joint tenderness, No deformity, Other (LLE EDEMA) Vitals VITALS Vital Signs Date Time Temp Pulse Resp B/P (MAP) Pulse Ox O2 Delivery O2 Flow Rate FiO2 04/23/20 15:00 98.8 124 19 109/76 (87) 92 Room Air 98.8 04/22/20 22:30 2.0 Labs Labs Laboratory Tests Test 04/22/20 19:14 04/22/20 19:50 04/22/20 23:40 04/23/20 02:25 Sodium Level 135 mmol/L (136-145) Potassium Level 2.8 mmol/L (3.5-5.1) Chloride Level 97 mmol/L (98-107) Carbon Dioxide Level 18 mmol/L (21-32) Anion Gap 20 (6-14) Blood Urea Nitrogen 19 mg/dL (8-26) Creatinine 2.1 mg/dL (0.7-1.3) Estimated GFR (Cockcroft-Gault) 33.5 BUN/Creatinine Ratio 9 (6-20) Glucose Level 205 mg/dL (70-99) Calcium Level 9.2 mg/dL (8.5-10.1) Phosphorus Level 5.2 mg/dL (2.6-4.7) Magnesium Level 2.1 mg/dL (1.8-2.4) Total Bilirubin 0.9 mg/dL (0.2-1.0) Aspartate Amino Transf (AST/SGOT) 29 U/L (15-37) Alanine Aminotransferase (ALT/SGPT) 13 U/L (16-63) Alkaline Phosphatase 222 U/L (46-116) Total Protein 6.6 g/dL (6.4-8.2) Albumin 2.2 g/dL (3.4-5.0) Albumin/Globulin Ratio 0.5 (1.0-1.7) Lipase 38 U/L (73-393) White Blood Count 13.5 x10^3/uL (4.0-11.0) Red Blood Count 4.79 x10^6/uL (4.30-5.70) Hemoglobin 12.7 g/dL (13.0-17.5) Hematocrit 38.7 % (39.0-53.0) Mean Corpuscular Volume 81 fL (79-100) Mean Corpuscular Hemoglobin 27 pg (25-35) Mean Corpuscular Hemoglobin Concent 33 g/dL (31-37) Red Cell Distribution Width 17.5 % (11.5-14.5) Platelet Count 442 x10^3/uL (140-400) Neutrophils (%) (Auto) 92 % (31-73) Lymphocytes (%) (Auto) 5 % (24-48) Monocytes (%) (Auto) 3 % (0-9) Eosinophils (%) (Auto) 0 % (0-3) Basophils (%) (Auto) 0 % (0-3) Neutrophils # (Auto) 12.4 x10^3/uL (1.8-7.7) Lymphocytes # (Auto) 0.7 x10^3/uL (1.0-4.8) Monocytes # (Auto) 0.4 x10^3/uL (0.0-1.1) Eosinophils # (Auto) 0.0 x10^3/uL (0.0-0.7) Basophils # (Auto) 0.0 x10^3/uL (0.0-0.2) Segmented Neutrophils % 93 % (35-66) Lymphocytes % 5 % (24-48) Monocytes % 2 % (0-10) Platelet Estimate Increased (ADEQUATE) Anisocytosis Slight Lactic Acid Level 8.5 mmol/L (0.4-2.0) 0.8 mmol/L (0.4-2.0) Troponin I Quantitative 0.115 ng/mL (0.000-0.055) 0.136 ng/mL (0.000-0.055) Ethyl Alcohol Level < 10 mg/dL (0-10) Test 04/23/20 08:20 04/23/20 11:23 Prothrombin Time 18.4 SEC (11.7-14.0) Prothromb Time International Ratio 1.6 (0.8-1.1) Sodium Level 141 mmol/L (136-145) Potassium Level 3.1 mmol/L (3.5-5.1) Chloride Level 104 mmol/L (98-107) Carbon Dioxide Level 19 mmol/L (21-32) Anion Gap 18 (6-14) Blood Urea Nitrogen 22 mg/dL (8-26) Creatinine 1.9 mg/dL (0.7-1.3) Estimated GFR (Cockcroft-Gault) 37.6 Glucose Level 160 mg/dL (70-99) Calcium Level 8.0 mg/dL (8.5-10.1) [place] Level 0.7 mmol/L (0.6-1.2) [place] Last Dose Date 04/20/20 [place] Last Dose Time 0800 SARS-CoV-2 Antigen (Rapid) Negative (NEGATIVE) Laboratory Tests Test 04/22/20 19:14 04/22/20 19:50 04/22/20 23:40 04/23/20 02:25 Sodium Level 135 mmol/L (136-145) Potassium Level 2.8 mmol/L (3.5-5.1) Chloride Level 97 mmol/L (98-107) Carbon Dioxide Level 18 mmol/L (21-32) Anion Gap 20 (6-14) Blood Urea Nitrogen 19 mg/dL (8-26) Creatinine 2.1 mg/dL (0.7-1.3) Estimated GFR (Cockcroft-Gault) 33.5 BUN/Creatinine Ratio 9 (6-20) Glucose Level 205 mg/dL (70-99) Calcium Level 9.2 mg/dL (8.5-10.1) Phosphorus Level 5.2 mg/dL (2.6-4.7) Magnesium Level 2.1 mg/dL (1.8-2.4) Total Bilirubin 0.9 mg/dL (0.2-1.0) Aspartate Amino Transf (AST/SGOT) 29 U/L (15-37) Alanine Aminotransferase (ALT/SGPT) 13 U/L (16-63) Alkaline Phosphatase 222 U/L (46-116) Total Protein 6.6 g/dL (6.4-8.2) Albumin 2.2 g/dL (3.4-5.0) Albumin/Globulin Ratio 0.5 (1.0-1.7) Lipase 38 U/L (73-393) White Blood Count 13.5 x10^3/uL (4.0-11.0) Red Blood Count 4.79 x10^6/uL (4.30-5.70) Hemoglobin 12.7 g/dL (13.0-17.5) Hematocrit 38.7 % (39.0-53.0) Mean Corpuscular Volume 81 fL (79-100) Mean Corpuscular Hemoglobin 27 pg (25-35) Mean Corpuscular Hemoglobin Concent 33 g/dL (31-37) Red Cell Distribution Width 17.5 % (11.5-14.5) Platelet Count 442 x10^3/uL (140-400) Neutrophils (%) (Auto) 92 % (31-73) Lymphocytes (%) (Auto) 5 % (24-48) Monocytes (%) (Auto) 3 % (0-9) Eosinophils (%) (Auto) 0 % (0-3) Basophils (%) (Auto) 0 % (0-3) Neutrophils # (Auto) 12.4 x10^3/uL (1.8-7.7) Lymphocytes # (Auto) 0.7 x10^3/uL (1.0-4.8) Monocytes # (Auto) 0.4 x10^3/uL (0.0-1.1) Eosinophils # (Auto) 0.0 x10^3/uL (0.0-0.7) Basophils # (Auto) 0.0 x10^3/uL (0.0-0.2) Segmented Neutrophils % 93 % (35-66) Lymphocytes % 5 % (24-48) Monocytes % 2 % (0-10) Platelet Estimate Increased (ADEQUATE) Anisocytosis Slight Lactic Acid Level 8.5 mmol/L (0.4-2.0) 0.8 mmol/L (0.4-2.0) Troponin I Quantitative 0.115 ng/mL (0.000-0.055) 0.136 ng/mL (0.000-0.055) Ethyl Alcohol Level < 10 mg/dL (0-10) Test 04/23/20 08:20 04/23/20 11:23 Prothrombin Time 18.4 SEC (11.7-14.0) Prothromb Time International Ratio 1.6 (0.8-1.1) Sodium Level 141 mmol/L (136-145) Potassium Level 3.1 mmol/L (3.5-5.1) Chloride Level 104 mmol/L (98-107) Carbon Dioxide Level 19 mmol/L (21-32) Anion Gap 18 (6-14) Blood Urea Nitrogen 22 mg/dL (8-26) Creatinine 1.9 mg/dL (0.7-1.3) Estimated GFR (Cockcroft-Gault) 37.6 Glucose Level 160 mg/dL (70-99) Calcium Level 8.0 mg/dL (8.5-10.1) [place] Level 0.7 mmol/L (0.6-1.2) [place] Last Dose Date 04/20/20 [place] Last Dose Time 0800 SARS-CoV-2 Antigen (Rapid) Negative (NEGATIVE) Assessment/Plan Assessment/Plan IMP JAQUAN WITH CR OF 2.1 EXTRACELLULAR VOLUME DEPLETION N/V/D PUI COVID 19 LLE DVT DM BIPOLAR CALCIFIED L RENAL LESION LEFT RENAL CALCULI-NON OBSTRUCTING PLAN CHECK UA HYDRATION GI EVALUATION VASCULAR SURGERY EVALUATION IDEALLY JAQUAN RESOLUTION PRIOR TO CONTRAST EXPOSURE WILL FOLLOW ELIZABETH ORTIZ MD Apr 23, 2020 18:15
[2020-04-23] MEDS ORDERED: POTASSIUM CHLORIDE 20MEQ 100 ML IV ONE (18:30)
[2020-04-23 20:04] VITALS: BP 90/58
[2020-04-23 23:06] VITALS: BP 103/65
[2020-04-24] VITALS (12 sets, daily range): BP systolic 87–105; BP diastolic 60–75
[2020-04-24] MEDS: ONDANSETRON PF 4 MG/2 ML VIAL. IVP PRN (01:53)
[2020-04-24] MEDS: AMINO AC 3%/ELECTROLYTE/GLYCER 1,000 ML IV SCH ×2 (05:06→17:45)
--- NOTE | 2020-04-24 08:14 | PDOC ---
PROGRESS NOTES Date of Service: DATE: 04/24/20 TIME: 08:14 Chief Complaint Chief Complaint VTE Prophylaxis Ordered VTE Prophylaxis Devices: Yes VTE Pharmacological Prophylaxi: Yes Assessment/Plan Assessment/Plan Impression: Dehydration Additional Impressions: Person under investigation for COVID-19 Nausea vomiting and diarrhea Extensive occlusive left lower extremity deep venous thrombosis. DIABETES Bipolar disease PLAN ADMITTED GI CONSULT Consult IR for possible left leg venous thrombolysis. nephrology consult vascular surgery consult Procedure Performed 04-24 LLE venogram, thrombectomy, Iliac vein stent, tunnelled central line History of Present Illness History of Present Illness Patient is a 50 year old male brought in by EMS for nausea, vomiting and diarrhea since 04-22 . His emesis has been brown but denies any blood. Diarrhea is nonbloody nonbilious. Denies any fevers. Was tested for Covid but has not had it yet. Denies any positive contacts but knows people he has not been in contact who tested positive. Denies any fevers, cough. Has a history of pancreatitis and stents placed. vascular surgery and IR are following w/ plans for thrombectomy 04-24 . he might have been off Eliquis due to vomiting. GI-carnes, had gallstone pancreatitis in 09/2019 - s/p cholecystectomy then. The next month was admitted w/ strep bacteremia/resp failure - imaging at that time noted pancreatic pseudocysts. Since then, apparently underwent endoscopic drainage of pseudocyst w/ stent and necrosectomy at . History is challenging - he's vomiting and not feeling well. Review of Systems: Review of Systems: All other systems within normal limits except for as noted in the HPI Vitals Vitals Vital Signs Date Time Temp Pulse Resp B/P (MAP) Pulse Ox O2 Delivery O2 Flow Rate FiO2 04/24/20 04:00 90/62 (71) 04/24/20 03:19 98.5 112 14 95 Nasal Cannula 2.0 98.5 Physical Exam Physical Exam swelling with erythema left calf and foot. General: Alert, Oriented X3, Cooperative, No acute distress, mild distress Heart: Regular rate Lungs: Clear Abdomen: Normal bowel sounds, Soft, Other Extremities: No clubbing, No cyanosis, Other (swelling with erythema left calf and foot.) Skin: No rashes Labs LABS Pre-Op Diagnosis DVT Post-Op Diagnosis same Procedure Performed LLE venogram, thrombectomy, Iliac vein stent, tunnelled central line Surgeon Jane EBL 260ml Anesthesia Type: Conscious Sedation Specimens Obtained none Findings Failed RUE PICC due to subclavian vein occlusion. Successful tunnelled R IJ central Line. LLE venogram demonstrates occlusive thrombus of the LLE from the popliteal to the IVC with non-occlusive thrombus extending into the IVC. Thrombus resolved s/p mechanical thrombectomy and angioplasty of SFV, CFV, EIV and CIV. Persistent external iliac vein stenosis excluded with stent with good result. Complications No immediatel Additional Remarks Recommend lifelong anticoagulation, 2-3 weeks of lovenox followed by conversion to DOAC if tolerated. SCD's in the hospital, compression stocking on discharge, maintenance of adequate hydration and increasing ambulation as tolerated. PATIENT: ANASTACIA RESENDEZ HACCOUNT: [id number] : 1970 LOCATION: ER AGE: 50 SEX: M EXAM STATUS: REG ER ORD. PHYSICIAN: GRACE DYE MD REASON: vomiting, DIFFICULTY COOPERATING/HOLDING BREATH FOR CT PROCEDURE: CT ABDOMEN PELVIS WO CONTRAST EXAM: CT Abdomen and Pelvis without IV contrast CLINICAL HISTORY: Vomiting COMPARISON: 10/31/2019 TECHNIQUE: Helical CT of the abdomen and pelvis without intravenous contrast. Axial, coronal and sagittal reformatted images were generated. PQRS compliance statement - One or more of the following individualized dose reduction techniques were utilized for this study: 1. Automated exposure control 2. Adjustment of the mA and/or kV according to patient size 3. Use of iterative reconstruction technique FINDINGS: Lack of intravenous contrast limits evaluation of solid organs, vasculature, and lymph nodes. Examination is limited by motion artifact as well. Lower chest: Lung bases are clear. Trace pericardial effusion. Abdomen and Pelvis: Hepatic hypoattenuation, likely fatty liver. Cholecystectomy clips are seen. No biliary ductal dilatation. Pancreas is unremarkable. Spleen is normal in appearance. Adrenal glands are unremarkable. Calcified left interpolar renal lesion is seen. Punctate nonobstructing left i nterpolar renal calculus. No hydronephrosis or hydroureter. Bladder is unremarkable. Left common iliac vein stent is seen. Atherosclerotic calcifications of aorta and iliacs, particularly the internal iliac arteries. Appendix is not seen. Mild colonic stool content. No small or large bowel dilatation. No bowel obstruction. No abdominal or pelvic ascites. Left common femoral iliac chain lymph node measures 1.8 x 1.2 cm. Prominent retroperitoneal lymph nodes are seen. Small fat-containing left inguinal hernia. Bones: Degenerative changes of the spine are seen. Hip joint degenerative changes are noted. IMPRESSION: Marked hepatic hypoattenuation, fatty liver. Pelvic lymphadenopathy, uncertain clinical significance, possibly reactive. No bowel obstruction. Electronically signed by: Jose Colón MD (04/22/2020 11:00 PM) [facility] DICTATED and SIGNED BY: JOSE COLÓN MD DATE: 04/22/20 [id number] Laboratory Tests Test 04/23/20 08:20 04/23/20 11:23 Prothrombin Time 18.4 SEC (11.7-14.0) Prothromb Time International Ratio 1.6 (0.8-1.1) Sodium Level 141 mmol/L (136-145) Potassium Level 3.1 mmol/L (3.5-5.1) Chloride Level 104 mmol/L (98-107) Carbon Dioxide Level 19 mmol/L (21-32) Anion Gap 18 (6-14) Blood Urea Nitrogen 22 mg/dL (8-26) Creatinine 1.9 mg/dL (0.7-1.3) Estimated GFR (Cockcroft-Gault) 37.6 Glucose Level 160 mg/dL (70-99) Calcium Level 8.0 mg/dL (8.5-10.1) [place] Level 0.7 mmol/L (0.6-1.2) [place] Last Dose Date 04/20/20 [place] Last Dose Time 0800 SARS-CoV-2 Antigen (Rapid) Negative (NEGATIVE) Assessment and Plan Assessmemt and Plan Problems Medical Problems: (1) Dehydration Status: Acute (2) Nausea vomiting and diarrhea Status: Acute (3) Person under investigation for COVID-19 Status: Acute Comment Review of Relevant I have reviewed the following items blaze (where applicable) has been applied. Labs Laboratory Tests Test 04/22/20 19:14 04/22/20 19:50 04/22/20 23:40 04/23/20 02:25 Sodium Level 135 mmol/L (136-145) Potassium Level 2.8 mmol/L (3.5-5.1) Chloride Level 97 mmol/L (98-107) Carbon Dioxide Level 18 mmol/L (21-32) Anion Gap 20 (6-14) Blood Urea Nitrogen 19 mg/dL (8-26) Creatinine 2.1 mg/dL (0.7-1.3) Estimated GFR (Cockcroft-Gault) 33.5 BUN/Creatinine Ratio 9 (6-20) Glucose Level 205 mg/dL (70-99) Calcium Level 9.2 mg/dL (8.5-10.1) Phosphorus Level 5.2 mg/dL (2.6-4.7) Magnesium Level 2.1 mg/dL (1.8-2.4) Total Bilirubin 0.9 mg/dL (0.2-1.0) Aspartate Amino Transf (AST/SGOT) 29 U/L (15-37) Alanine Aminotransferase (ALT/SGPT) 13 U/L (16-63) Alkaline Phosphatase 222 U/L (46-116) Total Protein 6.6 g/dL (6.4-8.2) Albumin 2.2 g/dL (3.4-5.0) Albumin/Globulin Ratio 0.5 (1.0-1.7) Lipase 38 U/L (73-393) White Blood Count 13.5 x10^3/uL (4.0-11.0) Red Blood Count 4.79 x10^6/uL (4.30-5.70) Hemoglobin 12.7 g/dL (13.0-17.5) Hematocrit 38.7 % (39.0-53.0) Mean Corpuscular Volume 81 fL (79-100) Mean Corpuscular Hemoglobin 27 pg (25-35) Mean Corpuscular Hemoglobin Concent 33 g/dL (31-37) Red Cell Distribution Width 17.5 % (11.5-14.5) Platelet Count 442 x10^3/uL (140-400) Neutrophils (%) (Auto) 92 % (31-73) Lymphocytes (%) (Auto) 5 % (24-48) Monocytes (%) (Auto) 3 % (0-9) Eosinophils (%) (Auto) 0 % (0-3) Basophils (%) (Auto) 0 % (0-3) Neutrophils # (Auto) 12.4 x10^3/uL (1.8-7.7) Lymphocytes # (Auto) 0.7 x10^3/uL (1.0-4.8) Monocytes # (Auto) 0.4 x10^3/uL (0.0-1.1) Eosinophils # (Auto) 0.0 x10^3/uL (0.0-0.7) Basophils # (Auto) 0.0 x10^3/uL (0.0-0.2) Segmented Neutrophils % 93 % (35-66) Lymphocytes % 5 % (24-48) Monocytes % 2 % (0-10) Platelet Estimate Increased (ADEQUATE) Anisocytosis Slight Lactic Acid Level 8.5 mmol/L (0.4-2.0) 0.8 mmol/L (0.4-2.0) Troponin I Quantitative 0.115 ng/mL (0.000-0.055) 0.136 ng/mL (0.000-0.055) Ethyl Alcohol Level < 10 mg/dL (0-10) Test 04/23/20 08:20 04/23/20 11:23 Prothrombin Time 18.4 SEC (11.7-14.0) Prothromb Time International Ratio 1.6 (0.8-1.1) Sodium Level 141 mmol/L (136-145) Potassium Level 3.1 mmol/L (3.5-5.1) Chloride Level 104 mmol/L (98-107) Carbon Dioxide Level 19 mmol/L (21-32) Anion Gap 18 (6-14) Blood Urea Nitrogen 22 mg/dL (8-26) Creatinine 1.9 mg/dL (0.7-1.3) Estimated GFR (Cockcroft-Gault) 37.6 Glucose Level 160 mg/dL (70-99) Calcium Level 8.0 mg/dL (8.5-10.1) [place] Level 0.7 mmol/L (0.6-1.2) [place] Last Dose Date 04/20/20 [place] Last Dose Time 0800 SARS-CoV-2 Antigen (Rapid) Negative (NEGATIVE) Laboratory Tests Test 04/23/20 08:20 04/23/20 11:23 Prothrombin Time 18.4 SEC (11.7-14.0) Prothromb Time International Ratio 1.6 (0.8-1.1) Sodium Level 141 mmol/L (136-145) Potassium Level 3.1 mmol/L (3.5-5.1) Chloride Level 104 mmol/L (98-107) Carbon Dioxide Level 19 mmol/L (21-32) Anion Gap 18 (6-14) Blood Urea Nitrogen 22 mg/dL (8-26) Creatinine 1.9 mg/dL (0.7-1.3) Estimated GFR (Cockcroft-Gault) 37.6 Glucose Level 160 mg/dL (70-99) Calcium Level 8.0 mg/dL (8.5-10.1) [place] Level 0.7 mmol/L (0.6-1.2) [place] Last Dose Date 04/20/20 [place] Last Dose Time 0800 SARS-CoV-2 Antigen (Rapid) Negative (NEGATIVE) Medications Current Medications Ringer's Solution 500 ml @ 500 mls/hr 1X ONCE IV Last administered on 04/22/20at 19:15; Start 04/22/20 at 19:15; Stop 04/22/20 at 20:14; Status DC Ondansetron HCl (Zofran) 4 mg 1X ONCE IVP Last administered on 04/22/20at 20:33; Start 04/22/20 at 19:15; Stop 04/22/20 at 19:17; Status DC Lorazepam (Ativan Inj) 2 mg 1X ONCE IVP Last administered on 04/22/20at 20:36; Start 04/22/20 at 20:30; Stop 04/22/20 at 20:31; Status DC Prochlorperazine Edisylate (Compazine) 10 mg 1X ONCE IV Last administered on 04/22/20at 21:45; Start 04/22/20 at 21:45; Stop 04/22/20 at 21:46; Status DC Sodium Chloride 1,000 ml @ 1,000 mls/hr 1X ONCE IV Last administered on 04/22/20at 21:52; Start 04/22/20 at 21:45; Stop 04/22/20 at 22:44; Status DC Potassium Chloride/Sodium Chloride 1,000 ml @ 125 mls/hr Q8H ONCE IV Last administered on 04/22/20at 21:46; Start 04/22/20 at 21:45; Stop 04/23/20 at 05:44; Status DC Diphenhydramine HCl (Benadryl) 25 mg 1X ONCE IVP Last administered on 04/22/20at 22:39; Start 04/22/20 at 22:45; Stop 04/22/20 at 22:46; Status DC Ondansetron HCl (Zofran) 4 mg PRN Q8HRS PRN IV NAUSEA/VOMITING Last administered on 04/22/20at 23:46; Start 04/22/20 at 23:45; Stop 04/23/20 at 02:11; Status DC Morphine Sulfate (Morphine Sulfate) 4 mg PRN Q2HR PRN IV PAIN Last administered on 04/23/20at 18:03; Start 04/22/20 at 23:45; Stop 04/23/20 at 23:44; Status DC Fentanyl Citrate (Fentanyl 2ml Vial) 50 mcg PRN Q1HR PRN IV PAIN; Start 04/22/20 at 23:45; Stop 04/23/20 at 23:44; Status DC Acetaminophen (Tylenol) 650 mg PRN Q4HRS PRN PO FEVER > 100.3'F; Start 04/22/20 at 23:45; Stop 04/23/20 at 23:44; Status DC Ringer's Solution 1,000 ml @ 125 mls/hr 1X ONCE IV Last administered on 04/23/20at 03:29; Start 04/22/20 at 23:45; Stop 04/23/20 at 07:44; Status DC Potassium Chloride/Water 100 ml @ 50 mls/hr 1X ONCE IV Last administered on 04/23/20at 00:04; Start 04/22/20 at 23:45; Stop 04/23/20 at 01:44; Status DC Lorazepam (Ativan Inj) 1 mg PRN Q4HRS PRN IVP ANXIETY / AGITATION Last administered on 04/23/20at 19:46; Start 04/22/20 at 23:45 Ondansetron HCl (Zofran) 4 mg PRN Q4HRS PRN IVP NAUSEA/VOMITING Last administered on 04/24/20at 01:53; Start 04/23/20 at 02:15 Enoxaparin Sodium (Lovenox 60mg Syringe) 60 mg Q12HR SQ Last administered on 04/23/20at 19:46; Start 04/23/20 at 09:00 Apixaban (Eliquis) 2.5 mg DAILY PO ; Start 04/24/20 at 09:00; Status UNV Pantoprazole Sodium (PROTONIX VIAL for IV PUSH) 40 mg DAILYAC IVP ; Start 04/23/20 at 14:30; Stop 04/23/20 at 14:33; Status DC Pantoprazole Sodium (PROTONIX VIAL for IV PUSH) 40 mg BIDAC IVP Last administered on 04/23/20at 16:30; Start 04/23/20 at 16:30 Amino Acids/ Glycerin/ Electrolytes 1,000 ml @ 80 mls/hr [id number] IV Last administered on 04/24/20at 05:06; Start 04/23/20 at 16:45 Potassium Chloride/Water 100 ml @ 50 mls/hr 1X ONCE IV Last administered on 04/23/20at 19:39; Start 04/23/20 at 18:30; Stop 04/23/20 at 20:29; Status DC Active Scripts Active Proair Hfa (Albuterol Sulfate) 8.5 Gm Hfa.aer.ad 2.5 Mg NEB PRN Q4HRS PRN 14 Days Reported Percocet 7.5-325 Mg Tablet (Oxycodone/Acetaminophen) 1 Each Tablet 1 Tab PO PRN Q6HRS PRN Zofran (Ondansetron Hcl) 4 Mg Tablet 1 Tab PO Q6HRS Eliquis (Apixaban) 2.5 Mg Tablet Unknown Dose PO UNK Lidocaine PATCH (Lidocaine) 1 Each Adh..patch 1 Each TP DAILY REMOVE AFTER 12 HOURS Clonazepam 1 Mg Tablet 1 Mg PO BID [place] Carbonate 300 Mg Tablet 1 Tab PO BID Zanaflex (Tizanidine Hcl) 4 Mg Capsule 1 Cap PO TID PRN Vitals/I & O Vital Sign - Last 24 Hours 04/23/20 04/23/20 04/23/20 04/23/20 11:00 13:51 14:27 15:00 Temp 98.6 98.8 98.6 98.8 Pulse 128 124 Resp 17 19 B/P (MAP) 120/72 (88) 109/76 (87) Pulse Ox 93 92 O2 Delivery Room Air Room Air Room Air Room Air 04/23/20 04/23/20 04/23/20 04/23/20 18:03 18:40 20:00 20:04 Temp 98.1 98.1 Pulse 118 Resp 18 B/P (MAP) 90/58 (69) O2 Delivery Room Air Room Air Nasal Cannula Room Air O2 Flow Rate 2.0 04/23/20 04/24/20 04/24/20 23:06 03:19 04:00 Temp 98.0 98.5 98.0 98.5 Pulse 118 112 Resp 16 14 B/P (MAP) 103/65 (78) 87/60 (69) 90/62 (71) Pulse Ox 95 O2 Delivery Room Air Nasal Cannula O2 Flow Rate 2.0 Intake and Output 04/23/20 04/23/20 04/24/20 15:00 23:00 07:00 Intake Total 1200 ml 150 ml 0 ml Output Total 300 ml 200 ml Balance 1200 ml -150 ml -200 ml Justicifation of Admission Dx: Justifications for Admission: Justification of Admission Dx: Yes Comminuty Aquired Pneumonia: Hemodynamic Instability Acute Renal Failure: RF Can't Be Managed Outpt Sepsis: Altered Mental Status DKA: JAMAL HORTON MD Apr 24, 2020 08:14
[2020-04-24] MEDS ORDERED: DOCUSATE SODIUM 100 MG CAPSULE. PO PRN (08:30)
[2020-04-24] MEDS ORDERED: 0.9 % SODIUM CHLORIDE 10 ML DISP.SYRIN. IV PRN (08:30)
[2020-04-24] MEDS ORDERED: ACETAMINOPHEN 650 MG SUPP.RECT. PR PRN (08:30)
[2020-04-24] MEDS ORDERED: IV NORMAL SALINE 1000ML BAG 1,000 ML IV ONE (08:30)
[2020-04-24] MEDS ORDERED: SODIUM PHOSPHATES 19/7GM 133 ML ENEMA. PR PRN (08:30)
[2020-04-24] MEDS ORDERED: ALBUTEROL SULFATE 2.5 MG/3 ML NEBU. NEB PRN (08:30)
[2020-04-24] MEDS ORDERED: guaiFENesin ORAL 200 MG/10 ML LIQUID. PO PRN (08:30)
[2020-04-24 08:51] LABS: HCO3 ABG 18 mmol/L (21-28); PCO2 ABG 26 mmHg (35-46); PO2 ABG 96 mmHg (75-108)
[2020-04-24 08:52] LABS: BASE EXCESS ABG -5 mmol/L (-3-3); SAT O2 ABG 97 % (92-99)
[2020-04-24] MEDS: POTASSIUM CHLORIDE 10MEQ 100 ML IV SCH ×4 (09:00→12:00)
[2020-04-24] MEDS ORDERED: APIXABAN 2.5 MG TABLET. PO SCH (09:00)
[2020-04-24] MEDS: PANTOPRAZOLE IV PUSH 40 MG VIAL. IVP SCH ×2 (09:08→16:30)
[2020-04-24 09:09] LABS: BASO % 0 % (0-3); EOS % 0 % (0-3); HEMATOCRIT 28.5 % (39.0-53.0); HEMOGLOBIN 9.2 g/dL (13.0-17.5); LYMPH # 0.8 x10^3/uL (1.0-4.8); LYMPH % 7 % (24-48); MEAN CORPUSCULAR HEMOGLOBIN 26 pg (25-35); MEAN CORPUSCULAR HGB CONC 32 g/dL (31-37); MEAN CORPUSCULAR VOLUME 81 fL (79-100); MONO # 0.4 x10^3/uL (0.0-1.1); MONO % 3 % (0-9); NEUT # 10.5 x10^3/uL (1.8-7.7); NEUT % 90 % (31-73); PLATELET COUNT 213 x10^3/uL (140-400); RED BLOOD COUNT 3.54 x10^6/uL (4.30-5.70); RED CELL DISTRIBUTION WIDTH 17.7 % (11.5-14.5); WHITE BLOOD COUNT 11.7 x10^3/uL (4.0-11.0)
[2020-04-24] MEDS: PIPERACILLIN/TAZOBACTAM 3.375 GM in IV NORMAL SALINE 50ML 50 ML IV SCH ×3 (09:09→18:00)
[2020-04-24] MEDS: ONDANSETRON PF 4 MG/2 ML VIAL. IV PRN (09:16)
[2020-04-24 09:26] LABS: CALCIUM 8.5 mg/dL (8.5-10.1); CREATININE 1.6 mg/dL (0.7-1.3); GFR 45.8; POTASSIUM 3.5 mmol/L (3.5-5.1)
[2020-04-24 09:32] LABS: ALBUMIN/GLOBULIN RATIO 0.5 (1.0-1.7); TOTAL BILIRUBIN 1.3 mg/dL (0.2-1.0); TOTAL PROTEIN 5.9 g/dL (6.4-8.2)
--- NOTE | 2020-04-24 09:43 | PDOC2 ---
DARRIN FARR MEDICAL TERRITORY MANAGER 04/24/20 0943: CARDIAC CONSULT DATE OF CONSULT Date of Consult DATE: 04/24/20 TIME: 09:41 REASON FOR CONSULT Reason for Consult: Elevated troponin REFERRING PHYSICIAN Referring Physician: Dr. Walter SOURCE Source: Chart review, Patient HISTORY OF PRESENT ILLNESS HISTORY OF PRESENT ILLNESS This is a 50 yo male who presented secondary to nausea/vomiting and diarrhea. Troponin noted to be mildly elevated, which prompted this consult. Denies any chest pain, palpitations, dizziness, diaphoresis, or SOA. Patient has a history of LLE DVT s/p iliac vein stenting at [facility] 01/28. Was on Eliquis, but thinks this was discontinued 2-3 weeks ago. Present LLE US shows extensive DVT. IR consulted for possible LLE venous thrombolysis. Is a difficult historian. PAST MEDICAL HISTORY Cardiovascular: HTN, Other (PVD w/ left iliac stent) Pulmonary: Other (ANALIA) GI: GERD Hepatobiliary: Other (pancreatitis ) Musculoskeletal: Osteoarthritis Endocrine: Diabetes, Hypothyroidism PAST SURGICAL HISTORY Past Surgical History: Tonsillectomy, Other (vasectomy ) FAMILY HISTORY Family History: Diabetes, Heart Disease, Hypertension SOCIAL HISTORY Social History Smoke: <1 pack per day ALCOHOL: rare Drugs: None Lives: with mother CURRENT MEDICATIONS CURRENT MEDICATIONS Current Medications Medications (Trade) Dose Ordered Sig/Edilma Route PRN Reason Start Time Stop Time Status Last Admin Dose Admin Pantoprazole Sodium (PROTONIX VIAL for IV PUSH) 40 mg BIDAC IVP 04/23/20 16:30 04/24/20 09:08 Amino Acids/ Glycerin/ Electrolytes 1,000 ml @ 80 mls/hr [id number] IV 04/23/20 16:45 04/24/20 05:06 Potassium Chloride/Water 100 ml @ 50 mls/hr 1X ONCE IV 04/23/20 18:30 04/23/20 20:29 DC 04/23/20 19:39 Sodium Chloride 1,000 ml @ 250 mls/hr 1X ONCE IV 04/24/20 08:30 04/24/20 12:29 04/24/20 09:08 Ondansetron HCl (Zofran) 4 mg PRN Q4HRS PRN IV NAUSEA/VOMITING 04/24/20 08:30 04/24/20 09:16 Piperacillin Sod/ Tazobactam Sod 3.375 gm/Sodium Chloride 50 ml @ 100 mls/hr Q6HRS IV 04/24/20 08:30 04/24/20 09:09 ALLERGIES ALLERGIES: Coded Allergies: daptomycin (Verified Allergy, Intermediate, chills, nausea , 08/09/19) ketamine (Verified Allergy, Intermediate, 09/13/19) I S O L A T I O N *CONTACT* (Verified Allergy, Unknown, Unknown, 08/14/19) mrsa ROS Review of System 14 point ROS conducted with pertinent positives noted above in HPI PHYSICAL EXAM General: Alert, Cooperative, No acute distress, Other (oriented to person and place ) HEENT: Atraumatic Lungs: Other (diminished bases) Heart: Regular rate (SR/ST) Abdomen: Soft Extremities: Normal pulses, Other (2+ LLE edema ) Skin: No significant lesion Neuro: Normal speech, Sensation intact, Other (tremor ) Psych/Mental Status: Mood NL MUSCULOSKELETAL: Osteoarthritic changes both hands VITALS/I&O VITALS/I&O: Vital Signs Date Time Temp Pulse Resp B/P (MAP) Pulse Ox O2 Delivery O2 Flow Rate FiO2 04/24/20 07:00 97.0 107 18 99/70 (80) Nasal Cannula 2.0 97.0 04/24/20 03:19 95 I & O 04/23/20 04/23/20 04/24/20 15:00 23:00 07:00 Intake Total 1200 ml 150 ml 0 ml Output Total 300 ml 200 ml Balance 1200 ml -150 ml -200 ml LABS Lab: Laboratory Tests Test 04/23/20 11:23 04/24/20 07:52 04/24/20 08:35 SARS-CoV-2 Antigen (Rapid) Negative (NEGATIVE) O2 Saturation 97 % (92-99) Arterial Blood pH 7.45 (7.35-7.45) Arterial Blood pCO2 at Patient Temp 26 mmHg (35-46) L Arterial Blood pO2 at Patient Temp 96 mmHg (75-108) Arterial Blood HCO3 18 mmol/L (21-28) L Arterial Blood Base Excess -5 mmol/L (-3-3) L FiO2 21/ra White Blood Count 11.7 x10^3/uL (4.0-11.0) H Red Blood Count 3.54 x10^6/uL (4.30-5.70) L Hemoglobin 9.2 g/dL (13.0-17.5) L Hematocrit 28.5 % (39.0-53.0) L Mean Corpuscular Volume 81 fL (79-100) Mean Corpuscular Hemoglobin 26 pg (25-35) Mean Corpuscular Hemoglobin Concent 32 g/dL (31-37) Red Cell Distribution Width 17.7 % (11.5-14.5) H Platelet Count 213 x10^3/uL (140-400) Neutrophils (%) (Auto) 90 % (31-73) H Lymphocytes (%) (Auto) 7 % (24-48) L Monocytes (%) (Auto) 3 % (0-9) Eosinophils (%) (Auto) 0 % (0-3) Basophils (%) (Auto) 0 % (0-3) Neutrophils # (Auto) 10.5 x10^3/uL (1.8-7.7) H Lymphocytes # (Auto) 0.8 x10^3/uL (1.0-4.8) L Monocytes # (Auto) 0.4 x10^3/uL (0.0-1.1) Eosinophils # (Auto) 0.0 x10^3/uL (0.0-0.7) Basophils # (Auto) 0.0 x10^3/uL (0.0-0.2) Sodium Level 138 mmol/L (136-145) Potassium Level 3.5 mmol/L (3.5-5.1) Chloride Level 104 mmol/L (98-107) Carbon Dioxide Level 20 mmol/L (21-32) L Anion Gap 14 (6-14) Blood Urea Nitrogen 24 mg/dL (8-26) Creatinine 1.6 mg/dL (0.7-1.3) H Estimated GFR (Cockcroft-Gault) 45.8 BUN/Creatinine Ratio 15 (6-20) Glucose Level 160 mg/dL (70-99) H Calcium Level 8.5 mg/dL (8.5-10.1) Total Bilirubin 1.3 mg/dL (0.2-1.0) H Aspartate Amino Transferase (AST) 66 U/L (15-37) H Alanine Aminotransferase (ALT) 24 U/L (16-63) Alkaline Phosphatase 152 U/L (46-116) H Total Protein 5.9 g/dL (6.4-8.2) L Albumin 2.0 g/dL (3.4-5.0) L Albumin/Globulin Ratio 0.5 (1.0-1.7) L Laboratory Tests 04/24/20 08:35 Laboratory Tests 04/24/20 08:35 ECHOCARDIOGRAM ECHOCARDIOGRAM 02/05/20 - 2D + DOPPLER ECHO Technically difficult study due to patient's heart rhythm and poor acoustic windows. Normal left ventricular size. Hyperdynamic systolic function. Estimated EF 65- 70%. Discrete wall motion abnormalities are difficult to assess given poor endocardial definition and off axis windows, but are probably normal. Unable to assess diastolic function. Qualitatively, the right ventricle appears normal in size. Probably normal systolic function. Normal left and right atrial sizes. The aortic valve is sclerotic with restricted leaflet motion. No stenosis by Doppler interrogation. Trivial regurgitation. Estimated pulmonary artery systolic pressure 19 mmHg. No prior studies available for comparison. ASSESSMENT/PLAN ASSESSMENT/PLAN 1. Nausea/vomiting, diarrhea 2. Leukocytosis, lactic acidosis 3. JAQUAN, dehydration 4. Mild troponin elevation; highest 0.136. Most probable type II, demand ischemia. Echo 01/28 with preserved LV systolic function 5. LLE DVT s/p iliac vein stenting at [facility] 01/28. Previous on Eliquis, but reports this was discontinued 2-3 weeks ago . Present LLE US shows extensive DVT. IR consulted for possible LLE venous thrombolysis 6. Hypokalemia; replaced 7. H/o gallstone pancreatitis, pancreatic pseudocysts s/p drainage and necrosectomy at 01/2020 8. Diabetes, II 9. PUI; COVID negative Recommendations Trend troponin ASA Anticoagulated with Lovenox Lipids Add low-dose BB when BP consistently adequate Consider outpatient ischemic evaluation Supportive care ADELAIDE TORO MD 04/24/20 1605: CARDIAC CONSULT ASSESSMENT/PLAN ASSESSMENT/PLAN Patient seen and examined. Agree with above nurse practitioner note. Supportive care. DARRIN FARR APRN Apr 24, 2020 09:43 ADELAIDE TORO MD Apr 24, 2020 16:05
[2020-04-24 10:22] LABS: MAGNESIUM 1.9 mg/dL (1.8-2.4)
[2020-04-24 10:46] LABS: CHOLESTEROL/HDL RATIO 6.1
--- NOTE | 2020-04-24 10:55 | PDOC ---
Date of Service: DATE: 04/24/20 TIME: 10:48 Subjective: Subjective: I saw earlier this morning. Not feeling well. Hasn't vomited more but might feel like it. Objective: Vital Signs: Vital Signs Date Time Temp Pulse Resp B/P (MAP) Pulse Ox O2 Delivery O2 Flow Rate FiO2 04/24/20 07:00 97.0 107 18 99/70 (80) Nasal Cannula 2.0 97.0 04/24/20 03:19 95 Labs: Laboratory Tests Test 04/23/20 11:23 04/24/20 07:52 04/24/20 08:35 SARS-CoV-2 Antigen (Rapid) Negative O2 Saturation 97 % Arterial Blood pH 7.45 Arterial Blood pCO2 at Patient Temp 26 mmHg Arterial Blood pO2 at Patient Temp 96 mmHg Arterial Blood HCO3 18 mmol/L Arterial Blood Base Excess -5 mmol/L FiO2 21/ra Phosphorus Level 2.0 mg/dL Magnesium Level 1.9 mg/dL White Blood Count 11.7 x10^3/uL Red Blood Count 3.54 x10^6/uL Hemoglobin 9.2 g/dL Hematocrit 28.5 % Mean Corpuscular Volume 81 fL Mean Corpuscular Hemoglobin 26 pg Mean Corpuscular Hemoglobin Concent 32 g/dL Red Cell Distribution Width 17.7 % Platelet Count 213 x10^3/uL Neutrophils (%) (Auto) 90 % Lymphocytes (%) (Auto) 7 % Monocytes (%) (Auto) 3 % Eosinophils (%) (Auto) 0 % Basophils (%) (Auto) 0 % Neutrophils # (Auto) 10.5 x10^3/uL Lymphocytes # (Auto) 0.8 x10^3/uL Monocytes # (Auto) 0.4 x10^3/uL Eosinophils # (Auto) 0.0 x10^3/uL Basophils # (Auto) 0.0 x10^3/uL Sodium Level 138 mmol/L Potassium Level 3.5 mmol/L Chloride Level 104 mmol/L Carbon Dioxide Level 20 mmol/L Anion Gap 14 Blood Urea Nitrogen 24 mg/dL Creatinine 1.6 mg/dL Estimated GFR (Cockcroft-Gault) 45.8 BUN/Creatinine Ratio 15 Glucose Level 160 mg/dL Lactic Acid Level 2.7 mmol/L Calcium Level 8.5 mg/dL Total Bilirubin 1.3 mg/dL Aspartate Amino Transf (AST/SGOT) 66 U/L Alanine Aminotransferase (ALT/SGPT) 24 U/L Alkaline Phosphatase 152 U/L Troponin I Quantitative 0.128 ng/mL Total Protein 5.9 g/dL Albumin 2.0 g/dL Albumin/Globulin Ratio 0.5 Triglycerides Level 240 mg/dL Cholesterol Level 104 mg/dL LDL Cholesterol, Calculated 39 mg/dL VLDL Cholesterol, Calculated 48 mg/dL Non-HDL Cholesterol Calculated 87 mg/dL HDL Cholesterol 17 mg/dL Cholesterol/HDL Ratio 6.1 PE: GEN: ill LUNGS: diminished anteriorly, some tachypnea HEART: mildly tachycardic ABD: soft, non-tender NEURO/PSYCH: forgetful A/P: LLE DVT - h/o PVD, left iliac stent N/v, weight loss Leukocytosis, JAQUAN, lactic acidosis, mildly elevated troponin ACD H/o GERD H/o gallstone pancreatitis and pancreatic pseudocysts s/p stent/cystogastrostomy/stent removal @ [facility] 01/2020 Rapid COVID test negative 04/23/20 -- ?thrombectomy today Continue IV PPI and NPO, will return later w/ Dr. Marrero. Justicifation of Admission Dx: Justifications for Admission: Justification of Admission Dx: Yes Comminuty Aquired Pneumonia: Hemodynamic Instability Acute Renal Failure: RF Can't Be Managed Outpt Sepsis: Altered Mental Status DKA: DKA ADAN PEREZ Apr 24, 2020 10:55
--- NOTE | 2020-04-24 11:52 | PDOC ---
Renal-Progress Notes Subjective Notes Notes NO NEW COMPLAINTS History of Present Illness Hx of present illness CONFUSED Vitals Vitals Vital Signs Date Time Temp Pulse Resp B/P (MAP) Pulse Ox O2 Delivery O2 Flow Rate FiO2 04/24/20 11:00 97.0 107 18 98/71 (80) Nasal Cannula 2.0 97.0 04/24/20 03:19 95 Weight Weight [ ] I.O. Intake and Output Intake and Output 04/24/20 07:00 Intake Total 1350 ml Output Total 500 ml Balance 850 ml Intake Oral 350 ml IV Total 1000 ml Output Urine Total 500 ml # Voids 2 Labs Labs Laboratory Tests Test 04/24/20 07:52 04/24/20 08:35 O2 Saturation 97 % (92-99) Arterial Blood pH 7.45 (7.35-7.45) Arterial Blood pCO2 at Patient Temp 26 mmHg (35-46) Arterial Blood pO2 at Patient Temp 96 mmHg (75-108) Arterial Blood HCO3 18 mmol/L (21-28) Arterial Blood Base Excess -5 mmol/L (-3-3) FiO2 21/ra Phosphorus Level 2.0 mg/dL (2.6-4.7) Magnesium Level 1.9 mg/dL (1.8-2.4) White Blood Count 11.7 x10^3/uL (4.0-11.0) Red Blood Count 3.54 x10^6/uL (4.30-5.70) Hemoglobin 9.2 g/dL (13.0-17.5) Hematocrit 28.5 % (39.0-53.0) Mean Corpuscular Volume 81 fL (79-100) Mean Corpuscular Hemoglobin 26 pg (25-35) Mean Corpuscular Hemoglobin Concent 32 g/dL (31-37) Red Cell Distribution Width 17.7 % (11.5-14.5) Platelet Count 213 x10^3/uL (140-400) Neutrophils (%) (Auto) 90 % (31-73) Lymphocytes (%) (Auto) 7 % (24-48) Monocytes (%) (Auto) 3 % (0-9) Eosinophils (%) (Auto) 0 % (0-3) Basophils (%) (Auto) 0 % (0-3) Neutrophils # (Auto) 10.5 x10^3/uL (1.8-7.7) Lymphocytes # (Auto) 0.8 x10^3/uL (1.0-4.8) Monocytes # (Auto) 0.4 x10^3/uL (0.0-1.1) Eosinophils # (Auto) 0.0 x10^3/uL (0.0-0.7) Basophils # (Auto) 0.0 x10^3/uL (0.0-0.2) Sodium Level 138 mmol/L (136-145) Potassium Level 3.5 mmol/L (3.5-5.1) Chloride Level 104 mmol/L (98-107) Carbon Dioxide Level 20 mmol/L (21-32) Anion Gap 14 (6-14) Blood Urea Nitrogen 24 mg/dL (8-26) Creatinine 1.6 mg/dL (0.7-1.3) Estimated GFR (Cockcroft-Gault) 45.8 BUN/Creatinine Ratio 15 (6-20) Glucose Level 160 mg/dL (70-99) Lactic Acid Level 2.7 mmol/L (0.4-2.0) Calcium Level 8.5 mg/dL (8.5-10.1) Total Bilirubin 1.3 mg/dL (0.2-1.0) Aspartate Amino Transf (AST/SGOT) 66 U/L (15-37) Alanine Aminotransferase (ALT/SGPT) 24 U/L (16-63) Alkaline Phosphatase 152 U/L (46-116) Troponin I Quantitative 0.128 ng/mL (0.000-0.055) Total Protein 5.9 g/dL (6.4-8.2) Albumin 2.0 g/dL (3.4-5.0) Albumin/Globulin Ratio 0.5 (1.0-1.7) Triglycerides Level 240 mg/dL (0-150) Cholesterol Level 104 mg/dL (0-200) LDL Cholesterol, Calculated 39 mg/dL (0-100) VLDL Cholesterol, Calculated 48 mg/dL (0-40) Non-HDL Cholesterol Calculated 87 mg/dL (0-129) HDL Cholesterol 17 mg/dL (40-60) Cholesterol/HDL Ratio 6.1 Review of Systems Constitutional: yes: alert, other (CONFUSED) Ears/Nose/Throat: Yes: no symptom reported Eyes: Yes: no symptom reported Pulmonary: Yes no symptom reported Cardiovascular: Yes no symptom reported Gastrointestional: Yes: no symptom reported Musculoskeletal: Yes: no symptom reported Skin: Yes no symptom reported Physical Exam General Appearance: no apparent distress Skin: warm Respiratory: bilateral CTA Abdomen: soft, bowel sounds present Genitourinary: bladder flat Extremities: pulses present, edema Neurology: alert, confused Musculoskeletal: Osteoarthritis Assessment Assessment IMP JAQUAN WITH CR OF 2.1 ON ADMIT AND NOW DOWN TO 1.6 EXTRACELLULAR VOLUME DEPLETION N/V/D PUI COVID 19 LLE DVT DM BIPOLAR CALCIFIED L RENAL LESION LEFT RENAL CALCULI-NON OBSTRUCTING PLAN HYDRATION GI EVALUATION VASCULAR SURGERY EVALUATION IDEALLY JAQUAN RESOLUTION PRIOR TO CONTRAST EXPOSURE WILL FOLLOW ELIZABETH ORTIZ MD Apr 24, 2020 11:52
--- NOTE | 2020-04-24 11:55 | EKG ---
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
--- NOTE | 2020-04-24 12:33 | PDOC ---
Provider Note Date of Service: DATE: 04/24/20 TIME: 12:31 Provider Note Provider Note Vascular 50 year old male with a history of left leg venous disease who underwent venous thrombolysis and iliac vein stenting stenting at [facility] 01/22/2020. He was seen in follow up on 03/12/[address] Godinez in the office and duplex showed no residual venous thrombus within the leg. He presents now with nausea and left leg swelling. Duplex scan of the left leg shows extensive DVT including the common femoral vein. He has symptoms of moderate left leg swelling in the calf and foot. His feet have purplish discoloration however strong doppler DP/PT pulses. Recommend full anticoagulation. IR plans thrombolysis today. Compression stocking. Justicifation of Admission Dx: Justifications for Admission: Justification of Admission Dx: Yes Comminuty Aquired Pneumonia: Hemodynamic Instability Acute Renal Failure: RF Can't Be Managed Outpt Sepsis: Altered Mental Status DKA: DKA MARCUS PEDERSON APRN Apr 24, 2020 12:33
[2020-04-24] MEDS ORDERED: IODIXANOL 320 MG/ML 100 ML VIAL. ONE (13:36)
[2020-04-24] MEDS ORDERED: LIDOCAINE WITH 8.4% SOD BICARB 3 ML DISP.SYRIN. ONE (13:36)
[2020-04-24] MEDS ORDERED: MIDAZOLAM HCL/PF 2 MG/2 ML VIAL. ONE (13:42)
[2020-04-24] MEDS ORDERED: fentaNYL PF VIAL 100 MCG/2 ML VIAL ONE (13:42)
[2020-04-24] MEDS ORDERED: HEPARIN for IV BOLUS 10,000 UNIT/10 ML VIAL. ONE (13:43)
[2020-04-24] MEDS ORDERED: LIDOCAINE 2%/EPI 1:100,000 20 ML VIAL. ONE (14:33)
[2020-04-24] MEDS ORDERED: HEPARIN for IV BOLUS 10,000 UNIT/10 ML VIAL. IV ONE (15:30)
[2020-04-24] MEDS ORDERED: IODIXANOL 320 MG/ML 100 ML VIAL. IART ONE (15:30)
[2020-04-24] MEDS ORDERED: MIDAZOLAM HCL/PF 2 MG/2 ML VIAL. IV ONE (15:30)
[2020-04-24] MEDS ORDERED: fentaNYL PF VIAL 100 MCG/2 ML VIAL IV ONE (15:30)
[2020-04-24] MEDS ORDERED: LIDOCAINE 1%/EPI 1:100,000 20 ML VIAL. INJ ONE (15:30)
[2020-04-24] MEDS ORDERED: LIDOCAINE WITH 8.4% SOD BICARB 3 ML DISP.SYRIN. IJ ONE (15:30)
[2020-04-24] MEDS ORDERED: IODIXANOL 320 MG/ML 50ML VIAL. ONE (15:48)
--- NOTE | 2020-04-24 16:17 | PDOC ---
MODERATE SEDATION ASSESSMENT RISKS/ALTERNATIVES Risks/Alternatives Risks and alternatives of this type of sedation and procedure discussed with: RISK/ALTERNATIVES: Patient H & P ON CHART H & P H & P on chart and reviewed for co-morbid conditions and appropriate labs. H&P ON CHART: Yes STATUS PREG STATUS ASSESSED: Yes MEDS/ALLERGIES REVIEWED Meds/Allergies Reviewed Medications and Allergies including time and route of recently administered narcotics and sedatives. MEDS/ALLERGIES REVIEWED: Yes ASA RATING ASA RATING: II AIRWAY ASSESSMENT Airway Assessment Airway patency, oral function limitations, presence of caps, crowns, dentures, partials, and ability to extend neck assessed. AIRWAY ASSESSMENT: Yes MALLAMPATI SCORE MALLAMPATI SCORE: II PRE-SEDATION ASSESSMENT PRE-SEDATION ASSESSMENT: Yes VU ARTIS MD Apr 24, 2020 16:17
--- NOTE | 2020-04-24 16:22 | PDOC ---
BRIEF OPERATIVE NOTE Pre-Op Diagnosis DVT Post-Op Diagnosis same Procedure Performed LLE venogram, thrombectomy, Iliac vein stent, tunnelled central line Surgeon Jane EBL 260ml Anesthesia Type: Conscious Sedation Specimens Obtained none Findings Failed RUE PICC due to subclavian vein occlusion. Successful tunnelled R IJ central Line. LLE venogram demonstrates occlusive thrombus of the LLE from the popliteal to the IVC with non-occlusive thrombus extending into the IVC. Thrombus resolved s/p mechanical thrombectomy and angioplasty of SFV, CFV, EIV and CIV. Persistent external iliac vein stenosis excluded with stent with good result. Complications No immediatel Additional Remarks Recommend lifelong anticoagulation, 2-3 weeks of lovenox followed by conversion to DOAC if tolerated. SCD's in the hospital, compression stocking on discharge, maintenance of adequate hydration and increasing ambulation as tolerated. VU ARTIS MD Apr 24, 2020 16:22
--- NOTE | 2020-04-24 16:39 | NUR ---
SW following for discharge planning. Spoke with RN and reviewed chart. Discharge plan remains home, self-care when stable. SW available as needed.
[2020-04-24] MEDS: fentaNYL PF VIAL 100 MCG/2 ML VIAL IVP PRN (18:35)
--- NOTE | 2020-04-24 21:26 | RAD ---
XR CHEST 1V History: Reason: hypotension/COVID ,. Shortest of breath Comparison: November 01, 2019 Findings: Right IJ central line with tip projecting over the lower SVC. No consolidation or pleural effusion. N o pneumothorax. Right glenohumeral DJD. Surgical clips right upper quadrant. Impression: 1. Right IJ central line with tip projecting over the lower SVC. No pneumothorax. Electronically signed by: Shamar Raines DO (04/24/2020 9:24 PM) RUBEN
[2020-04-25] MEDS: PIPERACILLIN/TAZOBACTAM 3.375 GM in IV NORMAL SALINE 50ML 50 ML IV SCH ×5 (01:13→23:55)
[2020-04-25] MEDS: AMINO AC 3%/ELECTROLYTE/GLYCER 1,000 ML IV SCH ×2 (02:23→18:45)
--- NOTE | 2020-04-25 04:06 | NUR ---
Pt turned during the noc multiple times. Questioned pt about pain and pt states not wanting any pain medication at the time. Pt also continues to pull electrodes off his chest and this nurse continue to reapply. Pt also has pulled out central line noted blood on his sheet with suture still intact on his chest. Removed suture and applied gauze and tape. Pt instructed on complications however unable to learn at this time. No further complaints linens changed and pt repositioned. Will continue to monitor.
[2020-04-25 04:35] VITALS: BP 125/56
[2020-04-25] MEDS: LORazepam 0.5 MG TABLET PO PRN (05:26)
[2020-04-25] MEDS: HYDROcodone/APAP 5/325MG 1 TAB TABLET PO PRN ×2 (05:27→15:59)
[2020-04-25 07:00] VITALS: BP 185/86
[2020-04-25] MEDS: PANTOPRAZOLE IV PUSH 40 MG VIAL. IVP SCH ×2 (07:30→17:23)
--- NOTE | 2020-04-25 08:51 | PDOC ---
PROGRESS NOTES Date of Service: DATE: 04/25/20 TIME: 08:51 Chief Complaint Chief Complaint VTE Prophylaxis Ordered VTE Prophylaxis Devices: Yes VTE Pharmacological Prophylaxi: Yes Assessment/Plan Assessment/Plan Impression: Dehydration abnormal weight loss Person under investigation for COVID-19 Nausea vomiting and diarrhea Extensive occlusive left lower extremity deep venous thrombosis. DIABETES Bipolar disease Leukocytosis, ACD, JAQUAN, lactic acidosis, elevated LFTs, mildly elevated troponin H/o GERD and pancreatic pseudocysts s/p cystogastrostomy @ , weight loss Pelvic lymphadenopathy, uncertain clinical significance, possibly reactive. PLAN ADMITTED GI CONSULT Consult IR for possible left leg venous thrombolysis. nephrology consult vascular surgery consult oncology consult Procedure Performed 04-24 LLE venogram, thrombectomy, Iliac vein stent, tunnelled central line History of Present Illness History of Present Illness Patient is a 50 year old male brought in by EMS for nausea, vomiting and diarrhea since 04-22 . His emesis has been brown but denies any blood. Diarrhea is nonbloody nonbilious. Denies any fevers. Was tested for Covid but has not had it yet. Denies any positive contacts but knows people he has not been in contact who tested positive. Denies any fevers, cough. Has a history of pancreatitis and stents placed. vascular surgery and IR are following w/ plans for thrombectomy 04-24 . he might have been off Eliquis due to vomiting. GI-carnes, had gallstone pancreatitis in 09/2019 - s/p cholecystectomy then. The next month was admitted w/ strep bacteremia/resp failure - imaging at that time noted pancreatic pseudocysts. Since then, apparently underwent endoscopic drainage of pseudocyst w/ stent and necrosectomy at . History is challenging - he's vomiting and not feeling well. Review of Systems: Review of Systems: All other systems within normal limits except for as noted in the HPI Vitals Vitals Vital Signs Date Time Temp Pulse Resp B/P (MAP) Pulse Ox O2 Delivery O2 Flow Rate FiO2 04/25/20 07:00 95.4 90 19 185/86 (119) 92 95.4 04/25/20 06:30 Room Air 04/25/20 00:00 2.0 Physical Exam Physical Exam swelling with erythema left calf and foot. General: Alert, Oriented X3, Cooperative, No acute distress, Other (oriented to person and place ) Heart: Regular rate (SR/ST), Normal S1 Lungs: Clear Abdomen: Soft Extremities: Normal pulses, Other (2+ LLE edema ) Skin: No significant lesion Labs LABS CLINICAL HISTORY: Vomiting COMPARISON: 10/31/2019 TECHNIQUE: Helical CT of the abdomen and pelvis without intravenous contrast. Axial, coronal and sagittal reformatted images were generated. PQRS compliance statement - One or more of the following individualized dose reduction techniques were utilized for this study: 1. Automated exposure control 2. Adjustment of the mA and/or kV according to patient size 3. Use of iterative reconstruction technique FINDINGS: Lack of intravenous contrast limits evaluation of solid organs, vasculature, and lymph nodes. Examination is limited by motion artifact as well. Lower chest: Lung bases are clear. Trace pericardial effusion. Abdomen and Pelvis: Hepatic hypoattenuation, likely fatty liver. Cholecystectomy clips are seen. No biliary ductal dilatation. Pancreas is unremarkable. Spleen is normal in appearance. Adrenal glands are unremarkable. Calcified left interpolar renal lesion is seen. Punctate nonobstructing left interpolar renal calculus. No hydronephrosis or hydroureter. Bladder is unremarkable. Left common iliac vein stent is seen. Atherosclerotic calcifications of aorta and iliacs, particularly the internal iliac arteries. Appendix is not seen. Mild colonic stool content. No small or large bowel dilatation. No bowel obstruction. No abdominal or pelvic ascites. Left common femoral iliac chain lymph node measures 1.8 x 1.2 cm. Prominent retroperitoneal lymph nodes are seen. Small fat-containing left inguinal hernia. Bones: Degenerative changes of the spine are seen. Hip joint degenerative changes are noted. IMPRESSION: Marked hepatic hypoattenuation, fatty liver. Pelvic lymphadenopathy, uncertain clinical significance, possibly reactive. No bowel obstruction. Electronically signed by: Jose Khoury MD (04/22/2020 11:00 PM) [facility] DICTATED and SIGNED BY: JOSE KHOURY MD DATE: 04/22/20 [id number] Laboratory Tests Test 04/24/20 13:18 Lactic Acid Level 2.8 mmol/L (0.4-2.0) Assessment and Plan Assessmemt and Plan Problems Medical Problems: (1) Dehydration Status: Acute (2) Nausea vomiting and diarrhea Status: Acute (3) Person under investigation for COVID-19 Status: Acute Comment Review of Relevant I have reviewed the following items blaze (where applicable) has been applied. Labs Laboratory Tests Test 04/23/20 11:23 04/24/20 07:52 04/24/20 08:35 04/24/20 13:18 Coronavirus (PCR) Not detected (Not Detected) SARS-CoV-2 Antigen (Rapid) Negative (NEGATIVE) O2 Saturation 97 % (92-99) Arterial Blood pH 7.45 (7.35-7.45) Arterial Blood pCO2 at Patient Temp 26 mmHg (35-46) Arterial Blood pO2 at Patient Temp 96 mmHg (75-108) Arterial Blood HCO3 18 mmol/L (21-28) Arterial Blood Base Excess -5 mmol/L (-3-3) FiO2 21/ra Phosphorus Level 2.0 mg/dL (2.6-4.7) Magnesium Level 1.9 mg/dL (1.8-2.4) White Blood Count 11.7 x10^3/uL (4.0-11.0) Red Blood Count 3.54 x10^6/uL (4.30-5.70) Hemoglobin 9.2 g/dL (13.0-17.5) Hematocrit 28.5 % (39.0-53.0) Mean Corpuscular Volume 81 fL (79-100) Mean Corpuscular Hemoglobin 26 pg (25-35) Mean Corpuscular Hemoglobin Concent 32 g/dL (31-37) Red Cell Distribution Width 17.7 % (11.5-14.5) Platelet Count 213 x10^3/uL (140-400) Neutrophils (%) (Auto) 90 % (31-73) Lymphocytes (%) (Auto) 7 % (24-48) Monocytes (%) (Auto) 3 % (0-9) Eosinophils (%) (Auto) 0 % (0-3) Basophils (%) (Auto) 0 % (0-3) Neutrophils # (Auto) 10.5 x10^3/uL (1.8-7.7) Lymphocytes # (Auto) 0.8 x10^3/uL (1.0-4.8) Monocytes # (Auto) 0.4 x10^3/uL (0.0-1.1) Eosinophils # (Auto) 0.0 x10^3/uL (0.0-0.7) Basophils # (Auto) 0.0 x10^3/uL (0.0-0.2) Sodium Level 138 mmol/L (136-145) Potassium Level 3.5 mmol/L (3.5-5.1) Chloride Level 104 mmol/L (98-107) Carbon Dioxide Level 20 mmol/L (21-32) Anion Gap 14 (6-14) Blood Urea Nitrogen 24 mg/dL (8-26) Creatinine 1.6 mg/dL (0.7-1.3) Estimated GFR (Cockcroft-Gault) 45.8 BUN/Creatinine Ratio 15 (6-20) Glucose Level 160 mg/dL (70-99) Lactic Acid Level 2.7 mmol/L (0.4-2.0) 2.8 mmol/L (0.4-2.0) Calcium Level 8.5 mg/dL (8.5-10.1) Total Bilirubin 1.3 mg/dL (0.2-1.0) Aspartate Amino Transf (AST/SGOT) 66 U/L (15-37) Alanine Aminotransferase (ALT/SGPT) 24 U/L (16-63) Alkaline Phosphatase 152 U/L (46-116) Troponin I Quantitative 0.128 ng/mL (0.000-0.055) Total Protein 5.9 g/dL (6.4-8.2) Albumin 2.0 g/dL (3.4-5.0) Albumin/Globulin Ratio 0.5 (1.0-1.7) Triglycerides Level 240 mg/dL (0-150) Cholesterol Level 104 mg/dL (0-200) LDL Cholesterol, Calculated 39 mg/dL (0-100) VLDL Cholesterol, Calculated 48 mg/dL (0-40) Non-HDL Cholesterol Calculated 87 mg/dL (0-129) HDL Cholesterol 17 mg/dL (40-60) Cholesterol/HDL Ratio 6.1 Laboratory Tests Test 04/24/20 13:18 Lactic Acid Level 2.8 mmol/L (0.4-2.0) Microbiology 04/24/20 Blood Culture - Preliminary, Resulted NO GROWTH AFTER 1 DAY Medications Current Medications Ringer's Solution 500 ml @ 500 mls/hr 1X ONCE IV Last administered on 04/22/20at 19:15; Start 04/22/20 at 19:15; Stop 04/22/20 at 20:14; Status DC Ondansetron HCl (Zofran) 4 mg 1X ONCE IVP Last administered on 04/22/20at 20:33; Start 04/22/20 at 19:15; Stop 04/22/20 at 19:17; Status DC Lorazepam (Ativan Inj) 2 mg 1X ONCE IVP Last administered on 04/22/20at 20:36; Start 04/22/20 at 20:30; Stop 04/22/20 at 20:31; Status DC Prochlorperazine Edisylate (Compazine) 10 mg 1X ONCE IV Last administered on 04/22/20at 21:45; Start 04/22/20 at 21:45; Stop 04/22/20 at 21:46; Status DC Sodium Chloride 1,000 ml @ 1,000 mls/hr 1X ONCE IV Last administered on 04/22/20at 21:52; Start 04/22/20 at 21:45; Stop 04/22/20 at 22:44; Status DC Potassium Chloride/Sodium Chloride 1,000 ml @ 125 mls/hr Q8H ONCE IV Last administered on 04/22/20at 21:46; Start 04/22/20 at 21:45; Stop 04/23/20 at 05:44; Status DC Diphenhydramine HCl (Benadryl) 25 mg 1X ONCE IVP Last administered on 04/22/20at 22:39; Start 04/22/20 at 22:45; Stop 04/22/20 at 22:46; Status DC Ondansetron HCl (Zofran) 4 mg PRN Q8HRS PRN IV NAUSEA/VOMITING Last administered on 04/22/20at 23:46; Start 04/22/20 at 23:45; Stop 04/23/20 at 02:11; Status DC Morphine Sulfate (Morphine Sulfate) 4 mg PRN Q2HR PRN IV PAIN Last administered on 04/23/20at 18:03; Start 04/22/20 at 23:45; Stop 04/23/20 at 23:44; Status DC Fentanyl Citrate (Fentanyl 2ml Vial) 50 mcg PRN Q1HR PRN IV PAIN; Start 04/22/20 at 23:45; Stop 04/23/20 at 23:44; Status DC Acetaminophen (Tylenol) 650 mg PRN Q4HRS PRN PO FEVER > 100.3'F; Start 04/22/20 at 23:45; Stop 04/23/20 at 23:44; Status DC Ringer's Solution 1,000 ml @ 125 mls/hr 1X ONCE IV Last administered on 04/23/20at 03:29; Start 04/22/20 at 23:45; Stop 04/23/20 at 07:44; Status DC Potassium Chloride/Water 100 ml @ 50 mls/hr 1X ONCE IV Last administered on 04/23/20at 00:04; Start 04/22/20 at 23:45; Stop 04/23/20 at 01:44; Status DC Lorazepam (Ativan Inj) 1 mg PRN Q4HRS PRN IVP ANXIETY / AGITATION Last administered on 04/23/20at 19:46; Start 04/22/20 at 23:45 Ondansetron HCl (Zofran) 4 mg PRN Q4HRS PRN IVP NAUSEA/VOMITING Last administered on 04/24/20at 01:53; Start 04/23/20 at 02:15; Stop 04/24/20 at 10:07; Status DC Enoxaparin Sodium (Lovenox 60mg Syringe) 60 mg Q12HR SQ Last administered on 04/24/20at 21:46; Start 04/23/20 at 09:00 Apixaban (Eliquis) 2.5 mg DAILY PO ; Start 04/24/20 at 09:00; Status UNV Pantoprazole Sodium (PROTONIX VIAL for IV PUSH) 40 mg DAILYAC IVP ; Start 04/23/20 at 14:30; Stop 04/23/20 at 14:33; Status DC Pantoprazole Sodium (PROTONIX VIAL for IV PUSH) 40 mg BIDAC IVP Last administered on 04/24/20at 16:30; Start 04/23/20 at 16:30 Amino Acids/ Glycerin/ Electrolytes 1,000 ml @ 80 mls/hr [id number] IV Last administered on 04/25/20at 02:23; Start 04/23/20 at 16:45 Potassium Chloride/Water 100 ml @ 50 mls/hr 1X ONCE IV Last administered on 04/23/20at 19:39; Start 04/23/20 at 18:30; Stop 04/23/20 at 20:29; Status DC Sodium Chloride 1,000 ml @ 250 mls/hr 1X ONCE IV Last administered on 04/24/20at 09:08; Start 04/24/20 at 08:30; Stop 04/24/20 at 12:29; Status DC Sodium Chloride (Normal Saline Flush) 3 ml QSHIFT PRN IV AFTER MEDS AND BLOOD DRAWS; Start 04/24/20 at 08:30 Ondansetron HCl (Zofran) 4 mg PRN Q4HRS PRN IV NAUSEA/VOMITING Last administered on 04/24/20at 09:16; Start 04/24/20 at 08:30 Acetaminophen (Tylenol Supp) 650 mg PRN Q4HRS PRN ID TEMP OVER 100.4F OR MILD PAIN; Start 04/24/20 at 08:30 Sodium Monofluorophosphate (Fleet Adult) 133 ml PRN DAILY PRN ID CONSTIPATION; Start 04/24/20 at 08:30 Docusate Sodium (Colace) 100 mg PRN BID PRN PO HARD STOOLS; Start 04/24/20 at 08:30 Albuterol Sulfate (Ventolin Neb Soln) 2.5 mg PRN Q4HRS PRN NEB SHORTNESS OF BREATH; Start 04/24/20 at 08:30 Guaifenesin (Robitussin) 200 mg PRN Q4HRS PRN PO COUGH; Start 04/24/20 at 08:30 Piperacillin Sod/ Tazobactam Sod 3.375 gm/Sodium Chloride 50 ml @ 100 mls/hr Q6HRS IV Last administered on 04/25/20at 01:13; Start 04/24/20 at 08:30 Potassium Chloride/Water 100 ml @ 100 mls/hr Q1H IV ; Start 04/24/20 at 09:00; Stop 04/24/20 at 12:59; Status DC Lidocaine HCl (Buffered Lidocaine 1%) 3 ml STK-MED ONCE .ROUTE ; Start 04/24/20 at 13:36; Stop 04/24/20 at 13:37; Status DC Iodixanol (Visipaque 320) 100 ml STK-MED ONCE .ROUTE ; Start 04/24/20 at 13:36; Stop 04/24/20 at 13:37; Status DC Heparin Sodium/ Sodium Chloride 500 ml @ As Directed STK-MED ONCE .ROUTE ; Start 04/24/20 at 13:37; Stop 04/24/20 at 13:37; Status DC Midazolam HCl (Versed) 2 mg STK-MED ONCE .ROUTE ; Start 04/24/20 at 13:42; Stop 04/24/20 at 13:43; Status DC Fentanyl Citrate (Fentanyl 2ml Vial) 100 mcg STK-MED ONCE .ROUTE ; Start 04/24/20 at 13:42; Stop 04/24/20 at 13:43; Status DC Heparin Sodium (Porcine) (Heparin Sodium) 10,000 unit STK-MED ONCE .ROUTE ; Start 04/24/20 at 13:43; Stop 04/24/20 at 13:43; Status DC Lidocaine/ Epinephrine (LIDOCAINE 2%-EPI 1:100,000 multi-dose) 20 ml STK-MED ONCE .ROUTE ; Start 04/24/20 at 14:33; Stop 04/24/20 at 14:33; Status DC Heparin Sodium/ Sodium Chloride 500 ml @ As Directed STK-MED ONCE .ROUTE ; Start 04/24/20 at 15:28; Stop 04/24/20 at 15:28; Status DC Heparin Sodium/ Sodium Chloride (HEPARIN for ARTERIAL LINE FLUSH) 1,000 unit 1X ONCE IART Last administered on 04/24/20at 15:30; Start 04/24/20 at 15:30; Stop 04/24/20 at 15:37; Status DC Heparin Sodium/ Sodium Chloride (HEPARIN for ARTERIAL LINE FLUSH) 1,000 unit 1X ONCE IART Last administered on 04/24/20at 15:30; Start 04/24/20 at 15:30; Stop 04/24/20 at 15:37; Status DC Lidocaine HCl (Buffered Lidocaine 1%) 6 ml 1X ONCE IJ Last administered on 04/24/20at 15:30; Start 04/24/20 at 15:30; Stop 04/24/20 at 15:37; Status DC Midazolam HCl (Versed) 1 mg 1X ONCE IV Last administered on 04/24/20at 15:30; Start 04/24/20 at 15:30; Stop 04/24/20 at 15:37; Status DC Fentanyl Citrate (Fentanyl 2ml Vial) 50 mcg 1X ONCE IV Last administered on 04/24/20at 15:30; Start 04/24/20 at 15:30; Stop 04/24/20 at 15:37; Status DC Heparin Sodium (Porcine) (Heparin Sodium) 5,000 unit 1X ONCE IV Last administered on 04/24/20at 15:30; Start 04/24/20 at 15:30; Stop 04/24/20 at 15:37; Status DC Lidocaine/ Epinephrine (LIDOCAINE 1%-EPI 1:100,000 Multi-Dose) 20 ml 1X ONCE INJ Last administered on 04/24/20at 15:30; Start 04/24/20 at 15:30; Stop 04/24/20 at 15:37; Status DC Iodixanol (Visipaque 320) 100 ml 1X ONCE IART Last administered on 04/24/20at 15:30; Start 04/24/20 at 15:30; Stop 04/24/20 at 15:37; Status DC Aspirin (Ecotrin) 81 mg DAILYWBKFT PO ; Start 04/25/20 at 08:00 Iodixanol (Visipaque 320) 50 ml STK-MED ONCE .ROUTE ; Start 04/24/20 at 15:48; Stop 04/24/20 at 15:48; Status DC Fentanyl Citrate (Fentanyl 2ml Vial) 50 mcg PRN Q2HR PRN IVP PAIN Last administered on 04/24/20at 18:35; Start 04/24/20 at 18:30 Lorazepam (Ativan) 0.5 mg PRN Q8HRS PRN PO ANXIETY / AGITATION Last administered on 04/25/20at 05:26; Start 04/25/20 at 05:00 Acetaminophen/ Hydrocodone Bitart (Lortab 5/325) 1 tab PRN Q6HRS PRN PO MODERATE PAIN 4-6 Last administered on 04/25/20at 05:27; Start 04/25/20 at 05:00 Amlodipine Besylate (Norvasc) 10 mg DAILY PO ; Start 04/25/20 at 09:00 Active Scripts Active Proair Hfa (Albuterol Sulfate) 8.5 Gm Hfa.aer.ad 2.5 Mg NEB PRN Q4HRS PRN 14 Days Reported Percocet 7.5-325 Mg Tablet (Oxycodone/Acetaminophen) 1 Each Tablet 1 Tab PO PRN Q6HRS PRN Zofran (Ondansetron Hcl) 4 Mg Tablet 1 Tab PO Q6HRS Eliquis (Apixaban) 2.5 Mg Tablet Unknown Dose PO UNK Lidocaine PATCH (Lidocaine) 1 Each Adh..patch 1 Each TP DAILY REMOVE AFTER 12 HOURS Clonazepam 1 Mg Tablet 1 Mg PO BID [place] Carbonate 300 Mg Tablet 1 Tab PO BID Zanaflex (Tizanidine Hcl) 4 Mg Capsule 1 Cap PO TID PRN Vitals/I & O Vital Sign - Last 24 Hours 04/24/20 04/24/20 04/24/20 04/24/20 11:00 15:30 16:22 17:15 Temp 97.0 97.0 Pulse 107 106 104 Resp 18 15 17 B/P (MAP) 98/71 (80) 102/69 (80) Pulse Ox 100 O2 Delivery Nasal Cannula Nasal Cannula O2 Flow Rate 2.0 2.0 04/24/20 04/24/20 04/24/20 04/24/20 17:30 17:45 18:35 18:45 Pulse 103 101 100 Resp 17 B/P (MAP) 99/73 (82) 101/73 (82) 102/71 (81) O2 Delivery Room Air 04/24/20 04/24/20 04/24/20 04/24/20 19:15 19:15 20:00 20:49 Temp 98.2 98.2 98.2 98.2 Pulse 97 97 Resp 24 20 B/P (MAP) 91/66 (74) 93/66 (75) O2 Delivery Nasal Cannula Room Air Nasal Cannula Nasal Cannula O2 Flow Rate 2.0 2.0 2.0 04/24/20 04/25/20 04/25/20 04/25/20 23:54 00:00 03:00 04:35 Temp 97.6 97.6 Pulse 83 84 91 Resp 18 18 B/P (MAP) 99/70 (80) 125/56 (79) Pulse Ox 91 O2 Delivery Nasal Cannula Nasal Cannula Room Air O2 Flow Rate 2.0 2.0 04/25/20 04/25/20 04/25/20 05:27 06:30 07:00 Temp 95.4 95.4 Pulse 90 Resp 19 B/P (MAP) 185/86 (119) Pulse Ox 92 O2 Delivery Nasal Cannula Room Air Intake and Output 04/24/20 04/24/20 04/25/20 15:00 23:00 07:00 Intake Total 0 ml Output Total 200 ml Balance -200 ml Nutrition Consultation Dietary Evaluation: Recommendations by RD: Dietary education by RD, PPN/TPN Comments: REC continue PPN at this time REC ADA/Cardiac diet when able to advance with Glucerna supplements D/c PPN when po intake is >50% of meals Expected Outcomes/Goals: to meet >75% est nutr needs via po intake Interpretation of weight loss: >10% in 6 months Malnutrition Findings: Food and Nutrition Intake (Sev: <50% est energy req 5days Body Fat Depletion (Non Severe: Mild Depletion Weight Status: Appropriate Justicifation of Admission Dx: Justifications for Admission: Justification of Admission Dx: Yes Comminuty Aquired Pneumonia: Hemodynamic Instability Acute Renal Failure: RF Can't Be Managed Outpt Sepsis: Altered Mental Status DKA: JAMAL HORTON MD Apr 25, 2020 08:51
[2020-04-25] MEDS: ASPIRIN ENTERIC COATED 81 MG TABLET.DR. PO SCH (08:56)
[2020-04-25 11:00] VITALS: BP 123/54
--- NOTE | 2020-04-25 11:11 | RAD ---
Procedure: Right upper extremity venogram, failed PICC line placement, ultrasound and fluoroscopic guided placement of a tunneled right IJ central line. Clinical Indication: Adult male requiring long-term venous access. Sedation: Local anesthesia only. Antibiotics: Antibiotic was administered intravenously within 1 hour of the procedure start time. Exposure: Kerma-Area Product: Gycm2 OR Fluoro Time: Less than 1 minute Images: 2 Sterility: All elements of maximal sterile barrier technique including the use of a cap, mask, sterile gown, sterile gloves, large sterile sheet, appropriate hand hygiene, and 2% chlorhexidine for cutaneous antisepsis (or acceptable alternative antiseptic per current guidelines) were followed for this procedure. Consent: The procedure was explained in its entirety to the patient or the patients designated vaccine customer representative by a member of the treatment team, including a discussion of the risks, benefits and commonly accepted alternatives to the procedure, as well as the expected consequences of no therapy whatsoever. Discussion of the risks included, but was not limited to, those that are most frequent and those that are rare but possibly severe or life-threatening, as well as the possibility of unforeseen complications. Technique and Findings: Following informed consent, the patient was prepped and draped in usual sterile fashion. Ultrasound interrogation of the right arm revealed patency of 2 paired brachial veins. 1% lidocaine was used to achieve local anesthesia. Under ultrasound guidance, a 21-gauge micropuncture needle was used to gain access to one of the paired brachial veins. A hardcopy ultrasound image was recorded. The needle was exchanged over wire for 5 [place] sheath. Attempts to advance a wire centrally were unsuccessful however. Contrast venography was then performed demonstrating occlusion of the subclavian vein, along with long segment severe narrowing of the axillary vein. Attempts recanalization were deemed to be futile. Consequently, the right chest was then prepped and draped in usual sterile fashion. Ultrasound interrogation of the right neck revealed patency of the right internal jugular vein. A Hardcopy ultrasound image was recorded. As a 21-gauge micropuncture needle was used to gain access to this vein. The needle was exchanged over wire for a peel-away sheath. The skin over the right anterior chest wall was then copiously anesthetized with 1% lidocaine plus epinephrine. A small dermatotomy was made. A dual-lumen tunneled central catheter was advanced through the subcutaneous tissues towards the right neck venotomy site then deployed under fluoroscopic guidance through the peel-away sheath such that the distal tip resided at the cavoatrial junction. Both lumens were flushed and found aspirated with ease. The catheter was then sutured to the skin and a small neck dermatotomy was closed with Dermabond. The sheath in the right brachial vein was removed and hemostasis was achieved with manual compression. Complications: No immediate Impression: 1. Ultrasound-guided venous access x2. 2. 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 3. Successful placement of a right IJ tunneled central venous catheter.
--- NOTE | 2020-04-25 11:21 | RAD ---
Procedure: Left lower extremity venography, mechanical dermatotomy, angioplasty and stenting of the external iliac vein and angioplasty of the superficial femoral vein. 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 Sedation: Conscious sedation was administered with a total intraprocedural [id number] time of 93 minutes. The patient was monitored by a qualified independent observer throughout the time of sedation. Please refer to the medical record for exact doses of medications utilized to achieve moderate sedation. Antibiotics: None Exposure: Kerma-Area Product: 114 Gycm2 OR Fluoro Time: Images: Contrast: 52 cc of Visipaque 320 contrast media Sterility: All elements of maximal sterile barrier technique including the use of a cap, mask, sterile gown, sterile gloves, large sterile sheet, appropriate hand hygiene, and 2% chlorhexidine for cutaneous antisepsis (or acceptable alternative antiseptic per current guidelines) were followed for this procedure. Consent: The procedure was explained in its entirety to the patient or the patients designated floor representative by a member of the treatment team, including a discussion of the risks, benefits and commonly accepted alternatives to the procedure, as well as the expected consequences of no therapy whatsoever. Discussion of the risks included, but was not limited to, those that are most frequent and those that are rare but possibly severe or life-threatening, as well as the possibility of unforeseen complications. Technique and Findings: Following informed consent, the patient was prepped and draped in usual sterile fashion. Ultrasound interrogation of the left popliteal fossa reveals occlusion of the left popliteal vein. A hardcopy ultrasound image was recorded as 21-gauge micropuncture was used to gain access to this vein. The needle was exchanged over wire for a 5 Turkmen sheath. Contrast venography was then performed showing occlusive thrombus throughout the entire superficial femoral vein, common femoral vein, and iliac veins including the long common iliac vein stent. Access across the stent and the IVC was performed and contrast venography was performed demonstrating a bulky then lung thrombus within the IVC which is nonocclusive. The patient was then given 5000 usual heparin intravenously. A 12 Turkmen penumbra mechanical thrombectomy device was then used to perform mechanical thrombolysis me throughout the iliofemoral system, yielding a large amount of organized thrombus. 260 cc of blood loss is recorded. A follow-up venogram demonstrates orthodox of patency throughout the venous system, with minimal residual thrombus throughout the superficial femoral vein save for an area of bulky eccentric thrombus at the high superficial femoral vein just below its junction with the common femoral vein. There is also a persistent area of circumferential thrombus within the external iliac vein, and bulky thrombus throughout the stent, though there is a flow channel through this thrombus. Angioplasty of the iliac vein stent was then performed using 14 mm x 40 mm and post balloon. This was also extended into the external iliac vein. A 10 mm x 80 mm angioplasty balloon was used to angioplasty the high superficial femoral vein at the area of abnormality. This resulted in significantly improved flow throughout the common iliac vein stent, with a moderate amount of residual thrombus that does not appear to be flow-limiting at this point. 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 Repeat angioplasty the high superficial femoral vein using a plunge technique resulted in some improvement through this area with better flow and less thrombus. The external iliac artery stenosis was treated with a 14 mm x 40 mm self expanding stent which was dilated 12 mm. This resulted in excellent angiographic appearance with no residual stenosis and brisk flow from the popliteal vein through the IVC. The sheath was then removed and hemostasis was achieved with manual compression. Complications: No immediate Impression: 1. Occlusive thrombus from the popliteal vein to the confluence of the IVC, with a bulky nonocclusive thrombus extending into the IVC. Following mechanical thrombectomy, multifocal angioplasty, and stent placement within the external iliac vein, there is orthodox of brisk flow throughout the venous system, with some nonflow limiting residual thrombus within the iliac stent. Recommend lifelong anticoagulation as this patient is high risk for recurrent stent thrombosis in the absence of antegrade relation.
--- NOTE | 2020-04-25 11:31 | PDOC ---
Date of Service: DATE: 04/25/20 TIME: 11:22 Subjective: Subjective: Doesn't feel good. I asked what was wrong and he said he doesn't really know. Going to try red jello. Objective: Objective: D/w nurse - no vomiting - tolerated broth and Sprite but didn't want orange jello. Vital Signs: Vital Signs Date Time Temp Pulse Resp B/P (MAP) Pulse Ox O2 Delivery O2 Flow Rate FiO2 04/25/20 08:56 90 185/86 04/25/20 08:00 Room Air 04/25/20 07:00 95.4 19 92 95.4 04/25/20 00:00 2.0 Labs: Laboratory Tests Test 04/24/20 13:18 Lactic Acid Level 2.8 mmol/L BLOOD CULTURE Preliminary NO GROWTH AFTER 1 DAY PE: GEN: tremulous LUNGS: diminished HEART: irregular ABD: soft, non-tender NEURO/PSYCH: lethargic/drowsy A/P: S/p LLE venogram, thrombectomy, Iliac vein stent, tunnelled central line 04/24/20 N/v - better? Leukocytosis, ACD, JAQUAN, lactic acidosis, elevated LFTs, mildly elevated troponin H/o GERD and pancreatic pseudocysts s/p cystogastrostomy @ [facility], weight loss COVID negative 04/23 -- Tolerating clears. Continue PPI - change to PO when reliably eating. Recheck labs. Other per Dr. Marrero. Justicifation of Admission Dx: Justifications for Admission: Justification of Admission Dx: Yes Comminuty Aquired Pneumonia: Hemodynamic Instability Acute Renal Failure: RF Can't Be Managed Outpt Sepsis: Altered Mental Status DKA: DKA ADAN PEREZ Apr 25, 2020 11:31
[2020-04-25] MEDS: ANTI-COAG MONITOR BY PHARMACY. MC PRN (13:07)
[2020-04-25 13:09] LABS: BASO % 0 % (0-3); EOS % 0 % (0-3); HEMOGLOBIN 7.4 g/dL (13.0-17.5); LYMPH # 0.8 x10^3/uL (1.0-4.8); LYMPH % 18 % (24-48); MEAN CORPUSCULAR HEMOGLOBIN 26 pg (25-35); MEAN CORPUSCULAR HGB CONC 32 g/dL (31-37); MEAN CORPUSCULAR VOLUME 81 fL (79-100); MONO # 0.2 x10^3/uL (0.0-1.1); MONO % 3 % (0-9); NEUT # 3.6 x10^3/uL (1.8-7.7); NEUT % 79 % (31-73); PLATELET COUNT 146 x10^3/uL (140-400); RED BLOOD COUNT 2.83 x10^6/uL (4.30-5.70); RED CELL DISTRIBUTION WIDTH 17.6 % (11.5-14.5); WHITE BLOOD COUNT 4.5 x10^3/uL (4.0-11.0)
--- NOTE | 2020-04-25 13:09 | PDOC ---
CARDIO Progress Notes Date and Time Date of Service 04/25/2020 Time of Evaluation 1230 Subjective Subjective: No Chest Pain, No shortness of breath, No Palpitations Vitals Vitals Vital Signs Date Time Temp Pulse Resp B/P (MAP) Pulse Ox O2 Delivery O2 Flow Rate FiO2 04/25/20 11:00 96.9 90 27 123/54 (77) 92 96.9 04/25/20 08:00 Room Air 04/25/20 00:00 2.0 Weight Weight [ ] Input and Output Intake and Output Intake and Output 04/25/20 07:00 Intake Total 0 ml Output Total 200 ml Balance -200 ml Intake Oral 0 ml Output Urine Total 200 ml # Voids 1 Laboratory Labs Laboratory Tests Test 04/24/20 13:18 Lactic Acid Level 2.8 mmol/L (0.4-2.0) Microbiology Micro Microbiology 04/24/20 Blood Culture - Preliminary, Resulted NO GROWTH AFTER 1 DAY Review of Systems Constitutional: yes: alert, other (CONFUSED) Ears/Nose/Throat: Yes: no symptom reported Eyes: Yes: no symptom reported Pulmonary: Yes no symptom reported Cardiovascular: Yes no symptom reported Gastrointestional: Yes: no symptom reported Musculoskeletal: Yes: no symptom reported Skin: Yes no symptom reported Physical Exam HEENT: Neck Supple W Full Motion Chest: Symmetric LUNGS: Other (diminished bases) Heart: RRR (SR) Abdomen: Soft N/T Extremities: Other (left leg tenderness, 2-3+ pitting edema) Neurology: alert, oriented, follow commands Assessment Assessment 1. Nausea/vomiting, diarrhea: better GI following 2. Leukocytosis, lactic acidosis. Covid neg 3. JAQUAN, dehydration. Improved 4. Mild troponin elevation; highest 0.136. Most probable type II, demand ischemia. Echo 01/28 with preserved LV systolic function 5. LLE extensive DVT extending to IVC: S/P mechanical thrombectomy and angioplasty of SFV, CFV, EIV and CIV. Persistent external iliac vein stenosis excluded with stent with good result. 6. Hypokalemia; replaced 7. H/o gallstone pancreatitis, pancreatic pseudocysts s/p drainage and necrosectomy at [facility] 01/2020 8. Diabetes, II. 9. DLP: LDL at 39. TG at 260 HDL 17 9. HTN: labile episodes Recommendations 1. Continue secondary prevention measures. Agree with norvasc. Reeval for ACEi/ARB as outpt 2. ASA.Anticoagulated with Lovenox. Further NOAC per vascular 3. Dietitian consult, diet modification better control BG prior. May Consider fish oil or fibrate 4. Consider outpatient ischemic evaluation Justicifation of Admission Dx: Justifications for Admission: Justification of Admission Dx: Yes Comminuty Aquired Pneumonia: Hemodynamic Instability Acute Renal Failure: RF Can't Be Managed Outpt Sepsis: Altered Mental Status DKA: JOSEPHINE DE PAZ [employer] Apr 25, 2020 13:09
[2020-04-25 13:16] LABS: ALBUMIN 1.8 g/dL (3.4-5.0); ALBUMIN/GLOBULIN RATIO 0.5 (1.0-1.7); CALCIUM 7.8 mg/dL (8.5-10.1); CREATININE 1.3 mg/dL (0.7-1.3); GFR 58.2; TOTAL BILIRUBIN 1.1 mg/dL (0.2-1.0); TOTAL PROTEIN 5.3 g/dL (6.4-8.2)
[2020-04-25 13:18] LABS: POTASSIUM 2.9 mmol/L (3.5-5.1)
--- NOTE | 2020-04-25 13:25 | PDOC ---
Renal-Progress Notes Subjective Notes Notes NO NEW COMPLAINTS History of Present Illness Hx of present illness STABLE Vitals Vitals Vital Signs Date Time Temp Pulse Resp B/P (MAP) Pulse Ox O2 Delivery O2 Flow Rate FiO2 04/25/20 11:00 96.9 90 27 123/54 (77) 92 96.9 04/25/20 08:00 Room Air 04/25/20 00:00 2.0 Weight Weight [ ] I.O. Intake and Output Intake and Output 04/25/20 06:59 Intake Total 0 ml Output Total 200 ml Balance -200 ml Intake Oral 0 ml Output Urine Total 200 ml # Voids 1 Labs Labs Laboratory Tests Test 04/25/20 12:30 White Blood Count 4.5 x10^3/uL (4.0-11.0) Red Blood Count 2.83 x10^6/uL (4.30-5.70) Hemoglobin 7.4 g/dL (13.0-17.5) Hematocrit 23.0 % (39.0-53.0) Mean Corpuscular Volume 81 fL (79-100) Mean Corpuscular Hemoglobin 26 pg (25-35) Mean Corpuscular Hemoglobin Concent 32 g/dL (31-37) Red Cell Distribution Width 17.6 % (11.5-14.5) Platelet Count 146 x10^3/uL (140-400) Neutrophils (%) (Auto) 79 % (31-73) Lymphocytes (%) (Auto) 18 % (24-48) Monocytes (%) (Auto) 3 % (0-9) Eosinophils (%) (Auto) 0 % (0-3) Basophils (%) (Auto) 0 % (0-3) Neutrophils # (Auto) 3.6 x10^3/uL (1.8-7.7) Lymphocytes # (Auto) 0.8 x10^3/uL (1.0-4.8) Monocytes # (Auto) 0.2 x10^3/uL (0.0-1.1) Eosinophils # (Auto) 0.0 x10^3/uL (0.0-0.7) Basophils # (Auto) 0.0 x10^3/uL (0.0-0.2) Sodium Level 140 mmol/L (136-145) Potassium Level 2.9 mmol/L (3.5-5.1) Chloride Level 107 mmol/L (98-107) Carbon Dioxide Level 20 mmol/L (21-32) Anion Gap 13 (6-14) Blood Urea Nitrogen 21 mg/dL (8-26) Creatinine 1.3 mg/dL (0.7-1.3) Estimated GFR (Cockcroft-Gault) 58.2 BUN/Creatinine Ratio 16 (6-20) Glucose Level 98 mg/dL (70-99) Calcium Level 7.8 mg/dL (8.5-10.1) Iron Level 88 ug/dL (65-175) Total Iron Binding Capacity 89 ug/dL (250-450) Iron Saturation 99 % (15-34) Total Bilirubin 1.1 mg/dL (0.2-1.0) Aspartate Amino Transf (AST/SGOT) 44 U/L (15-37) Alanine Aminotransferase (ALT/SGPT) 21 U/L (16-63) Alkaline Phosphatase 121 U/L (46-116) Total Protein 5.3 g/dL (6.4-8.2) Albumin 1.8 g/dL (3.4-5.0) Albumin/Globulin Ratio 0.5 (1.0-1.7) Micro Micro Microbiology 04/24/20 Blood Culture - Preliminary, Resulted NO GROWTH AFTER 1 DAY Review of Systems Constitutional: yes: alert, other (CONFUSED) Ears/Nose/Throat: Yes: no symptom reported Eyes: Yes: no symptom reported Pulmonary: Yes no symptom reported Cardiovascular: Yes no symptom reported Gastrointestional: Yes: no symptom reported Musculoskeletal: Yes: no symptom reported Skin: Yes no symptom reported Physical Exam General Appearance: no apparent distress Skin: warm Respiratory: bilateral CTA Abdomen: soft, bowel sounds present Genitourinary: bladder flat Extremities: pulses present, edema Neurology: alert, oriented, follow commands Musculoskeletal: Osteoarthritis Assessment Assessment IMP JAQUAN WITH CR OF 2.1 ON ADMIT AND NOW DOWN TO 1.6 EXTRACELLULAR VOLUME DEPLETION N/V/D PUI COVID 19 LLE DVT S/P LLE THROMBECTOMY AND ILIAC VEIN STENT DM BIPOLAR CALCIFIED L RENAL LESION LEFT RENAL CALCULI-NON OBSTRUCTING PLAN HYDRATION LABS IN AM WILL FOLLOW ELIZABETH ORTIZ MD Apr 25, 2020 13:25
[2020-04-25 13:52] LABS: BARBITURATES NEG (NEG); BENZODIAZEPINES POS (NEG); CANNABINOIDS NEG (NEG); COCAINE NEG (NEG); METHADONE NEG (NEG); OPIATES POS (NEG); PHENCYCLIDINE NEG (NEG)
[2020-04-25 13:54] LABS: AMPHETAMINE/METHAMPHETAMINE NEG (NEG)
[2020-04-25 13:57] LABS: BILIRUBIN,URINE SMALL (NEG); CLARITY,URINE CLEAR; COLOR,URINE YELLOW; NITRITE,URINE NEGATIVE (NEG); PROTEIN,URINE NEGATIVE (NEG-TRACE)
[2020-04-25 13:58] LABS: BACTERIA,URINE 0 /HPF (0-FEW); RBC,URINE 0 /HPF (0-2)
[2020-04-25] MEDS ORDERED: POTASSIUM CHLORIDE 10 MEQ TABLET.ER. PO ONE (14:00)
[2020-04-25] MEDS ORDERED: HEPARIN PF 500 UNIT/5 ML DISP.SYRIN. IVP ONE ×2 (14:44→15:30)
[2020-04-25] MEDS ORDERED: LIDOCAINE 2%/EPI 1:100,000 20 ML VIAL. ONE (14:44)
--- NOTE | 2020-04-25 14:47 | PDOC2 ---
CONSULT Date of Consult Date of Consult DATE: 04/25/20 TIME: 14:41 Reason for Consult Reason for Consult: Leukocytosis Referring Physician Referring Physician: Dr. Walter Identification/Chief Complaint Chief Complaint 50-year-old male presented to the ER on April 22, 2020 with complaints of nausea, vomiting, diarrhea, which started a day prior to admission. History of Present Illness Reason for Visit: 50-year-old male presented to the ER on April 22, 2020 with complaints of nausea, vomiting, diarrhea, which started a day prior to admission. He was found to have extensive left lower extremity DVT. CT showed left iliac vein stent. Patient had leukocytosis ,lactic acidosis and JAQUAN. He was started on empiric Zosyn. He had mild troponin elevation. For left lower extremity extensive DVT extending to IVC he underwent mechanical thrombectomy and angioplasty of SFV, CFV, EIV and CIV White count has normalized. Cultures remain negative. ID consult has been requested regarding further antibiotic management. Today patient says feels better. Denies fever, nausea, vomiting, shortness of breath, diarrhea, abdominal pain, rash Otherwise as above. Past Medical History Cardiovascular: HTN, Other (PVD w/ left iliac stent) Pulmonary: Other (ANALIA) GI: GERD Heme/Onc: No pertinent hx Hepatobiliary: Other (pancreatitis ) Psych: No pertinent hx, Bipolar, Other Musculoskeletal: Osteoarthritis, Other (History of bilateral total knee arthroplasty; history of recurrent left knee prosthetic joint infection) Rheumatologic: No pertinent hx Renal/: No pertinent hx Endocrine: Diabetes, Hypothyroidism Dermatology: Other (Multiple bruises both upper and lower extremity no evidence of infection) Past Surgical History Past Surgical History: Tonsillectomy, Other (vasectomy ) Family History Family History: Diabetes, Heart Disease, Hypertension Social History <1 pack per day ALCOHOL: rare Drugs: None Current Problem List Problem List Problems Medical Problems: (1) Dehydration Status: Acute (2) Nausea vomiting and diarrhea Status: Acute (3) Person under investigation for COVID-19 Status: Acute Current Medications Current Medications Current Medications Ringer's Solution 500 ml @ 500 mls/hr 1X ONCE IV Last administered on 04/22/20at 19:15; Start 04/22/20 at 19:15; Stop 04/22/20 at 20:14; Status DC Ondansetron HCl (Zofran) 4 mg 1X ONCE IVP Last administered on 04/22/20at 20:33; Start 04/22/20 at 19:15; Stop 04/22/20 at 19:17; Status DC Lorazepam (Ativan Inj) 2 mg 1X ONCE IVP Last administered on 04/22/20at 20:36; Start 04/22/20 at 20:30; Stop 04/22/20 at 20:31; Status DC Prochlorperazine Edisylate (Compazine) 10 mg 1X ONCE IV Last administered on 04/22/20at 21:45; Start 04/22/20 at 21:45; Stop 04/22/20 at 21:46; Status DC Sodium Chloride 1,000 ml @ 1,000 mls/hr 1X ONCE IV Last administered on 04/22/20at 21:52; Start 04/22/20 at 21:45; Stop 04/22/20 at 22:44; Status DC Potassium Chloride/Sodium Chloride 1,000 ml @ 125 mls/hr Q8H ONCE IV Last administered on 04/22/20at 21:46; Start 04/22/20 at 21:45; Stop 04/23/20 at 05:44; Status DC Diphenhydramine HCl (Benadryl) 25 mg 1X ONCE IVP Last administered on at 22:39; Start 04/22/20 at 22:45; Stop 04/22/20 at 22:46; Status DC Ondansetron HCl (Zofran) 4 mg PRN Q8HRS PRN IV NAUSEA/VOMITING Last administered on 04/22/20at 23:46; Start 04/22/20 at 23:45; Stop 04/23/20 at 02:11; Status DC Morphine Sulfate (Morphine Sulfate) 4 mg PRN Q2HR PRN IV PAIN Last administered on 04/23/20at 18:03; Start 04/22/20 at 23:45; Stop 04/23/20 at 23:44; Status DC Fentanyl Citrate (Fentanyl 2ml Vial) 50 mcg PRN Q1HR PRN IV PAIN; Start 04/22/20 at 23:45; Stop 04/23/20 at 23:44; Status DC Acetaminophen (Tylenol) 650 mg PRN Q4HRS PRN PO FEVER > 100.3'F; Start 04/22/20 at 23:45; Stop 04/23/20 at 23:44; Status DC Ringer's Solution 1,000 ml @ 125 mls/hr 1X ONCE IV Last administered on 04/23/20at 03:29; Start 04/22/20 at 23:45; Stop 04/23/20 at 07:44; Status DC Potassium Chloride/Water 100 ml @ 50 mls/hr 1X ONCE IV Last administered on 04/23/20at 00:04; Start 04/22/20 at 23:45; Stop 04/23/20 at 01:44; Status DC Lorazepam (Ativan Inj) 1 mg PRN Q4HRS PRN IVP ANXIETY / AGITATION Last administered on 04/23/20at 19:46; Start 04/22/20 at 23:45 Ondansetron HCl (Zofran) 4 mg PRN Q4HRS PRN IVP NAUSEA/VOMITING Last administered on 04/24/20at 01:53; Start 04/23/20 at 02:15; Stop 04/24/20 at 10:07; Status DC Enoxaparin Sodium (Lovenox 60mg Syringe) 60 mg Q12HR SQ Last administered on 04/25/20at 08:56; Start 04/23/20 at 09:00 Apixaban (Eliquis) 2.5 mg DAILY PO ; Start 04/24/20 at 09:00; Status UNV Pantoprazole Sodium (PROTONIX VIAL for IV PUSH) 40 mg DAILYAC IVP ; Start 04/23/20 at 14:30; Stop 04/23/20 at 14:33; Status DC Pantoprazole Sodium (PROTONIX VIAL for IV PUSH) 40 mg BIDAC IVP Last administered on 04/24/20at 16:30; Start 04/23/20 at 16:30 Amino Acids/ Glycerin/ Electrolytes 1,000 ml @ 80 mls/hr [id number] IV Last administered on 04/25/20at 02:23; Start 04/23/20 at 16:45 Potassium Chloride/Water 100 ml @ 50 mls/hr 1X ONCE IV Last administered on 04/23/20at 19:39; Start 04/23/20 at 18:30; Stop 04/23/20 at 20:29; Status DC Sodium Chloride 1,000 ml @ 250 mls/hr 1X ONCE IV Last administered on 04/24/20at 09:08; Start 04/24/20 at 08:30; Stop 04/24/20 at 12:29; Status DC Sodium Chloride (Normal Saline Flush) 3 ml QSHIFT PRN IV AFTER MEDS AND BLOOD DRAWS; Start 04/24/20 at 08:30 Ondansetron HCl (Zofran) 4 mg PRN Q4HRS PRN IV NAUSEA/VOMITING Last administered on 04/24/20at 09:16; Start 04/24/20 at 08:30 Acetaminophen (Tylenol Supp) 650 mg PRN Q4HRS PRN OH TEMP OVER 100.4F OR MILD PAIN; Start 04/24/20 at 08:30 Sodium Monofluorophosphate (Fleet Adult) 133 ml PRN DAILY PRN OH CONSTIPATION; Start 04/24/20 at 08:30 Docusate Sodium (Colace) 100 mg PRN BID PRN PO HARD STOOLS; Start 04/24/20 at 08:30 Albuterol Sulfate (Ventolin Neb Soln) 2.5 mg PRN Q4HRS PRN NEB SHORTNESS OF BREATH; Start 04/24/20 at 08:30 Guaifenesin (Robitussin) 200 mg PRN Q4HRS PRN PO COUGH; Start 04/24/20 at 08:30 Piperacillin Sod/ Tazobactam Sod 3.375 gm/Sodium Chloride 50 ml @ 100 mls/hr Q6HRS IV Last administered on 04/25/20at 01:13; Start 04/24/20 at 08:30 Potassium Chloride/Water 100 ml @ 100 mls/hr Q1H IV ; Start 04/24/20 at 09:00; Stop 04/24/20 at 12:59; Status DC Lidocaine HCl (Buffered Lidocaine 1%) 3 ml STK-MED ONCE .ROUTE ; Start 04/24/20 at 13:36; Stop 04/24/20 at 13:37; Status DC Iodixanol (Visipaque 320) 100 ml STK-MED ONCE .ROUTE ; Start 04/24/20 at 13:36; Stop 04/24/20 at 13:37; Status DC Heparin Sodium/ Sodium Chloride 500 ml @ As Directed STK-MED ONCE .ROUTE ; Start 04/24/20 at 13:37; Stop 04/24/20 at 13:37; Status DC Midazolam HCl (Versed) 2 mg STK-MED ONCE .ROUTE ; Start 04/24/20 at 13:42; Stop 04/24/20 at 13:43; Status DC Fentanyl Citrate (Fentanyl 2ml Vial) 100 mcg STK-MED ONCE .ROUTE ; Start 04/24/20 at 13:42; Stop 04/24/20 at 13:43; Status DC Heparin Sodium (Porcine) (Heparin Sodium) 10,000 unit STK-MED ONCE .ROUTE ; Start 04/24/20 at 13:43; Stop 04/24/20 at 13:43; Status DC Lidocaine/ Epinephrine (LIDOCAINE 2%-EPI 1:100,000 multi-dose) 20 ml STK-MED ONCE .ROUTE ; Start 04/24/20 at 14:33; Stop 04/24/20 at 14:33; Status DC Heparin Sodium/ Sodium Chloride 500 ml @ As Directed STK-MED ONCE .ROUTE ; Start 04/24/20 at 15:28; Stop 04/24/20 at 15:28; Status DC Heparin Sodium/ Sodium Chloride (HEPARIN for ARTERIAL LINE FLUSH) 1,000 unit 1X ONCE IART Last administered on 04/24/20at 15:30; Start 04/24/20 at 15:30; Stop 04/24/20 at 15:37; Status DC Heparin Sodium/ Sodium Chloride (HEPARIN for ARTERIAL LINE FLUSH) 1,000 unit 1X ONCE IART Last administered on 04/24/20at 15:30; Start 04/24/20 at 15:30; Stop 04/24/20 at 15:37; Status DC Lidocaine HCl (Buffered Lidocaine 1%) 6 ml 1X ONCE IJ Last administered on 04/24/20at 15:30; Start 04/24/20 at 15:30; Stop 04/24/20 at 15:37; Status DC Midazolam HCl (Versed) 1 mg 1X ONCE IV Last administered on 04/24/20at 15:30; Start 04/24/20 at 15:30; Stop 04/24/20 at 15:37; Status DC Fentanyl Citrate (Fentanyl 2ml Vial) 50 mcg 1X ONCE IV Last administered on 04/24/20at 15:30; Start 04/24/20 at 15:30; Stop 04/24/20 at 15:37; Status DC Heparin Sodium (Porcine) (Heparin Sodium) 5,000 unit 1X ONCE IV Last administered on 04/24/20at 15:30; Start 04/24/20 at 15:30; Stop 04/24/20 at 15:37; Status DC Lidocaine/ Epinephrine (LIDOCAINE 1%-EPI 1:100,000 Multi-Dose) 20 ml 1X ONCE INJ Last administered on 04/24/20at 15:30; Start 04/24/20 at 15:30; Stop 04/24/20 at 15:37; Status DC Iodixanol (Visipaque 320) 100 ml 1X ONCE IART Last administered on 04/24/20at 15:30; Start 04/24/20 at 15:30; Stop 04/24/20 at 15:37; Status DC Aspirin (Ecotrin) 81 mg DAILYWBKFT PO Last administered on 04/25/20at 08:56; Start 04/25/20 at 08:00 Iodixanol (Visipaque 320) 50 ml STK-MED ONCE .ROUTE ; Start 04/24/20 at 15:48; Stop 04/24/20 at 15:48; Status DC Fentanyl Citrate (Fentanyl 2ml Vial) 50 mcg PRN Q2HR PRN IVP PAIN Last administered on 04/24/20at 18:35; Start 04/24/20 at 18:30 Lorazepam (Ativan) 0.5 mg PRN Q8HRS PRN PO ANXIETY / AGITATION Last administered on 04/25/20at 05:26; Start 04/25/20 at 05:00 Acetaminophen/ Hydrocodone Bitart (Lortab 5/325) 1 tab PRN Q6HRS PRN PO MODERATE PAIN 4-6 Last administered on 04/25/20at 05:27; Start 04/25/20 at 05:00 Amlodipine Besylate (Norvasc) 10 mg DAILY PO Last administered on 04/25/20at 08:56; Start 04/25/20 at 09:00 Info (Anti-Coagulation Monitoring By Pharmacy) 1 each PRN DAILY PRN MC SEE COMMENTS Last administered on 04/25/20at 13:07; Start 04/25/20 at 13:00 Lactobacillus Rhamnosus (Culturelle) 1 cap BID PO ; Start 04/25/20 at 21:00 Potassium Chloride (Klor-Con) 30 meq 1X ONCE PO ; Start 04/25/20 at 14:00; Stop 04/25/20 at 14:01; Status DC Active Scripts Active Proair Hfa (Albuterol Sulfate) 8.5 Gm Hfa.aer.ad 2.5 Mg NEB PRN Q4HRS PRN 14 Days Reported Percocet 7.5-325 Mg Tablet (Oxycodone/Acetaminophen) 1 Each Tablet 1 Tab PO PRN Q6HRS PRN Zofran (Ondansetron Hcl) 4 Mg Tablet 1 Tab PO Q6HRS Eliquis (Apixaban) 2.5 Mg Tablet Unknown Dose PO UNK Lidocaine PATCH (Lidocaine) 1 Each Adh..patch 1 Each TP DAILY REMOVE AFTER 12 HOURS Clonazepam 1 Mg Tablet 1 Mg PO BID Gaastra Carbonate 300 Mg Tablet 1 Tab PO BID Zanaflex (Tizanidine Hcl) 4 Mg Capsule 1 Cap PO TID PRN Allergies Allergies: Coded Allergies: daptomycin (Verified Allergy, Intermediate, chills, nausea , 08/09/19) ketamine (Verified Allergy, Intermediate, 09/13/19) I S O L A T I O N *CONTACT* (Verified Allergy, Unknown, Unknown, 08/14/19) mrsa ROS Review of System Negative except for above in HPI Physical Exam General: Alert, No acute distress HEENT: Atraumatic, EOMI, Mucous membr. moist/pink Lungs: Clear to auscultation Heart: Normal S1, Normal S2, No murmurs Abdomen: Normal bowel sounds, Soft, No tenderness Extremities: No cyanosis, No edema Skin: No rashes Neuro: Other (Alert, awake, moves all 4 extremity) Vitals VITALS Vital Signs Date Time Temp Pulse Resp B/P (MAP) Pulse Ox O2 Delivery O2 Flow Rate FiO2 04/25/20 11:00 96.9 90 27 123/54 (77) 92 96.9 04/25/20 08:00 Room Air 04/25/20 00:00 2.0 Labs Labs Laboratory Tests Test 04/24/20 07:52 04/24/20 08:35 04/24/20 13:18 04/25/20 11:51 O2 Saturation 97 % (92-99) Arterial Blood pH 7.45 (7.35-7.45) Arterial Blood pCO2 at Patient Temp 26 mmHg (35-46) Arterial Blood pO2 at Patient Temp 96 mmHg (75-108) Arterial Blood HCO3 18 mmol/L (21-28) Arterial Blood Base Excess -5 mmol/L (-3-3) FiO2 21/ra Phosphorus Level 2.0 mg/dL (2.6-4.7) Magnesium Level 1.9 mg/dL (1.8-2.4) White Blood Count 11.7 x10^3/uL (4.0-11.0) Red Blood Count 3.54 x10^6/uL (4.30-5.70) Hemoglobin 9.2 g/dL (13.0-17.5) Hematocrit 28.5 % (39.0-53.0) Mean Corpuscular Volume 81 fL (79-100) Mean Corpuscular Hemoglobin 26 pg (25-35) Mean Corpuscular Hemoglobin Concent 32 g/dL (31-37) Red Cell Distribution Width 17.7 % (11.5-14.5) Platelet Count 213 x10^3/uL (140-400) Neutrophils (%) (Auto) 90 % (31-73) Lymphocytes (%) (Auto) 7 % (24-48) Monocytes (%) (Auto) 3 % (0-9) Eosinophils (%) (Auto) 0 % (0-3) Basophils (%) (Auto) 0 % (0-3) Neutrophils # (Auto) 10.5 x10^3/uL (1.8-7.7) Lymphocytes # (Auto) 0.8 x10^3/uL (1.0-4.8) Monocytes # (Auto) 0.4 x10^3/uL (0.0-1.1) Eosinophils # (Auto) 0.0 x10^3/uL (0.0-0.7) Basophils # (Auto) 0.0 x10^3/uL (0.0-0.2) Sodium Level 138 mmol/L (136-145) Potassium Level 3.5 mmol/L (3.5-5.1) Chloride Level 104 mmol/L (98-107) Carbon Dioxide Level 20 mmol/L (21-32) Anion Gap 14 (6-14) Blood Urea Nitrogen 24 mg/dL (8-26) Creatinine 1.6 mg/dL (0.7-1.3) Estimated GFR (Cockcroft-Gault) 45.8 BUN/Creatinine Ratio 15 (6-20) Glucose Level 160 mg/dL (70-99) Lactic Acid Level 2.7 mmol/L (0.4-2.0) 2.8 mmol/L (0.4-2.0) Calcium Level 8.5 mg/dL (8.5-10.1) Total Bilirubin 1.3 mg/dL (0.2-1.0) Aspartate Amino Transf (AST/SGOT) 66 U/L (15-37) Alanine Aminotransferase (ALT/SGPT) 24 U/L (16-63) Alkaline Phosphatase 152 U/L (46-116) Troponin I Quantitative 0.128 ng/mL (0.000-0.055) Total Protein 5.9 g/dL (6.4-8.2) Albumin 2.0 g/dL (3.4-5.0) Albumin/Globulin Ratio 0.5 (1.0-1.7) Triglycerides Level 240 mg/dL (0-150) Cholesterol Level 104 mg/dL (0-200) LDL Cholesterol, Calculated 39 mg/dL (0-100) VLDL Cholesterol, Calculated 48 mg/dL (0-40) Non-HDL Cholesterol Calculated 87 mg/dL (0-129) HDL Cholesterol 17 mg/dL (40-60) Cholesterol/HDL Ratio 6.1 Direct Bilirubin 0.7 mg/dL (0.0-0.2) Test 04/25/20 12:30 04/25/20 13:20 White Blood Count 4.5 x10^3/uL (4.0-11.0) Red Blood Count 2.84 x10^6/uL (4.30-5.70) Hemoglobin 7.4 g/dL (13.0-17.5) Hematocrit 23.0 % (39.0-53.0) Mean Corpuscular Volume 81 fL (79-100) Mean Corpuscular Hemoglobin 26 pg (25-35) Mean Corpuscular Hemoglobin Concent 32 g/dL (31-37) Red Cell Distribution Width 17.6 % (11.5-14.5) Platelet Count 146 x10^3/uL (140-400) Neutrophils (%) (Auto) 79 % (31-73) Lymphocytes (%) (Auto) 18 % (24-48) Monocytes (%) (Auto) 3 % (0-9) Eosinophils (%) (Auto) 0 % (0-3) Basophils (%) (Auto) 0 % (0-3) Neutrophils # (Auto) 3.6 x10^3/uL (1.8-7.7) Lymphocytes # (Auto) 0.8 x10^3/uL (1.0-4.8) Monocytes # (Auto) 0.2 x10^3/uL (0.0-1.1) Eosinophils # (Auto) 0.0 x10^3/uL (0.0-0.7) Basophils # (Auto) 0.0 x10^3/uL (0.0-0.2) Absolute Reticulocyte Count 0.012 x10^6/uL (0.020-0.120) Percent Reticulocyte Count 0.4 % (0.5-2.3) Immature Reticulocyte Fraction 0.21 (0.20-0.60) Sodium Level 140 mmol/L (136-145) Potassium Level 2.9 mmol/L (3.5-5.1) Chloride Level 107 mmol/L (98-107) Carbon Dioxide Level 20 mmol/L (21-32) Anion Gap 13 (6-14) Blood Urea Nitrogen 21 mg/dL (8-26) Creatinine 1.3 mg/dL (0.7-1.3) Estimated GFR (Cockcroft-Gault) 58.2 BUN/Creatinine Ratio 16 (6-20) Glucose Level 98 mg/dL (70-99) Calcium Level 7.8 mg/dL (8.5-10.1) Iron Level 88 ug/dL (65-175) Total Iron Binding Capacity 89 ug/dL (250-450) Iron Saturation 99 % (15-34) Total Bilirubin 1.1 mg/dL (0.2-1.0) Aspartate Amino Transf (AST/SGOT) 44 U/L (15-37) Alanine Aminotransferase (ALT/SGPT) 21 U/L (16-63) Alkaline Phosphatase 121 U/L (46-116) Total Protein 5.3 g/dL (6.4-8.2) Albumin 1.8 g/dL (3.4-5.0) Albumin/Globulin Ratio 0.5 (1.0-1.7) Procalcitonin 0.38 ng/mL (0.00-0.10) Urine Collection Type Unknown Urine Color Yellow Urine Clarity Clear Urine pH 6.0 (<5.0-8.0) Urine Specific Kermit >=1.030 (1.000-1.030) Urine Protein Negative mg/dL (NEG-TRACE) Urine Glucose (UA) Negative mg/dL (NEG) Urine Ketones (Stick) Trace mg/dL (NEG) Urine Blood Negative (NEG) Urine Nitrite Negative (NEG) Urine Bilirubin Small (NEG) Urine Urobilinogen Dipstick 1.0 mg/dL (0.2 mg/dL) Urine Leukocyte Esterase Small (NEG) Urine RBC 0 /HPF (0-2) Urine WBC 1-4 /HPF (0-4) Urine Renal Epithelial Cells Few /LPF Urine Bacteria 0 /HPF (0-FEW) Urine Mucus Slight /LPF Urine Opiates Screen Pos (NEG) Urine Methadone Screen Neg (NEG) Urine Barbiturates Neg (NEG) Urine Phencyclidine Screen Neg (NEG) Urine Amphetamine/Methamphetamine Neg (NEG) Urine Benzodiazepines Screen Pos (NEG) Urine Cocaine Screen Neg (NEG) Urine Cannabinoids Screen Neg (NEG) Urine Ethyl Alcohol Neg (NEG) Laboratory Tests Test 04/25/20 11:51 04/25/20 12:30 04/25/20 13:20 Direct Bilirubin 0.7 mg/dL (0.0-0.2) White Blood Count 4.5 x10^3/uL (4.0-11.0) Red Blood Count 2.84 x10^6/uL (4.30-5.70) Hemoglobin 7.4 g/dL (13.0-17.5) Hematocrit 23.0 % (39.0-53.0) Mean Corpuscular Volume 81 fL (79-100) Mean Corpuscular Hemoglobin 26 pg (25-35) Mean Corpuscular Hemoglobin Concent 32 g/dL (31-37) Red Cell Distribution Width 17.6 % (11.5-14.5) Platelet Count 146 x10^3/uL (140-400) Neutrophils (%) (Auto) 79 % (31-73) Lymphocytes (%) (Auto) 18 % (24-48) Monocytes (%) (Auto) 3 % (0-9) Eosinophils (%) (Auto) 0 % (0-3) Basophils (%) (Auto) 0 % (0-3) Neutrophils # (Auto) 3.6 x10^3/uL (1.8-7.7) Lymphocytes # (Auto) 0.8 x10^3/uL (1.0-4.8) Monocytes # (Auto) 0.2 x10^3/uL (0.0-1.1) Eosinophils # (Auto) 0.0 x10^3/uL (0.0-0.7) Basophils # (Auto) 0.0 x10^3/uL (0.0-0.2) Absolute Reticulocyte Count 0.012 x10^6/uL (0.020-0.120) Percent Reticulocyte Count 0.4 % (0.5-2.3) Immature Reticulocyte Fraction 0.21 (0.20-0.60) Sodium Level 140 mmol/L (136-145) Potassium Level 2.9 mmol/L (3.5-5.1) Chloride Level 107 mmol/L (98-107) Carbon Dioxide Level 20 mmol/L (21-32) Anion Gap 13 (6-14) Blood Urea Nitrogen 21 mg/dL (8-26) Creatinine 1.3 mg/dL (0.7-1.3) Estimated GFR (Cockcroft-Gault) 58.2 BUN/Creatinine Ratio 16 (6-20) Glucose Level 98 mg/dL (70-99) Calcium Level 7.8 mg/dL (8.5-10.1) Iron Level 88 ug/dL (65-175) Total Iron Binding Capacity 89 ug/dL (250-450) Iron Saturation 99 % (15-34) Total Bilirubin 1.1 mg/dL (0.2-1.0) Aspartate Amino Transf (AST/SGOT) 44 U/L (15-37) Alanine Aminotransferase (ALT/SGPT) 21 U/L (16-63) Alkaline Phosphatase 121 U/L (46-116) Total Protein 5.3 g/dL (6.4-8.2) Albumin 1.8 g/dL (3.4-5.0) Albumin/Globulin Ratio 0.5 (1.0-1.7) Procalcitonin 0.38 ng/mL (0.00-0.10) Urine Collection Type Unknown Urine Color Yellow Urine Clarity Clear Urine pH 6.0 (<5.0-8.0) Urine Specific Kermit >=1.030 (1.000-1.030) Urine Protein Negative mg/dL (NEG-TRACE) Urine Glucose (UA) Negative mg/dL (NEG) Urine Ketones (Stick) Trace mg/dL (NEG) Urine Blood Negative (NEG) Urine Nitrite Negative (NEG) Urine Bilirubin Small (NEG) Urine Urobilinogen Dipstick 1.0 mg/dL (0.2 mg/dL) Urine Leukocyte Esterase Small (NEG) Urine RBC 0 /HPF (0-2) Urine WBC 1-4 /HPF (0-4) Urine Renal Epithelial Cells Few /LPF Urine Bacteria 0 /HPF (0-FEW) Urine Mucus Slight /LPF Urine Opiates Screen Pos (NEG) Urine Methadone Screen Neg (NEG) Urine Barbiturates Neg (NEG) Urine Phencyclidine Screen Neg (NEG) Urine Amphetamine/Methamphetamine Neg (NEG) Urine Benzodiazepines Screen Pos (NEG) Urine Cocaine Screen Neg (NEG) Urine Cannabinoids Screen Neg (NEG) Urine Ethyl Alcohol Neg (NEG) Images Images CT abdomen and pelvis Marked hepatic hypoattenuation, fatty liver. Pelvic lymphadenopathy, uncertain clinical significance, possibly reactive. No bowel obstruction. Ultrasound left lower extremity Impression: Extensive occlusive left lower extremity deep venous thrombosis. XR CHEST 1V History: Reason: hypotension/COVID ,. Shortest of breath Comparison: November 01, 2019 Findings: Right IJ central line with tip projecting over the lower SVC. No consolidation or pleural effusion. No pneumothorax. Right glenohumeral DJD. Surgical clips right upper quadrant. Impression: 1. Right IJ central line with tip projecting over the lower SVC. No pneumothorax. Left lower extremity CT pending at this time Assessment/Plan Assessment/Plan Impression: Leukocytosis and lactic acidosis resolved source likely GI Nausea and vomiting resolved Diarrhea resolved JAQUAN likely dehydration improving Left lower extremity extensive DVT status post mechanical thrombectomy and angioplasty of SFV, CFV, PIV, CIV, Persistent external iliac vein stenosis excluded with stent with good results Hypokalemia improved History of gallstone pancreatitis, pancreatic pseudocyst status post drainage a nd necrosectomy at January 2020 Next diabetes mellitus type 2 next hypertension history of left knee prosthetic joint infection stable History of right TKA Weight loss Generalized debility Mild troponin elevation demand ischemia Recommendations: Continue Zosyn Maintain aspiration precautions Monitor labs Continue supportive care Discussed with nursing staff Thank you for allowing me to participate in this patient's care.If you have any questions please do not hesitate to contact me KYLAH DOUGLASS MD Apr 25, 2020 14:47
[2020-04-25 15:00] VITALS: BP 94/63
[2020-04-25] MEDS ORDERED: LIDOCAINE 2%/EPI 1:100,000 20 ML VIAL. IJ ONE (15:30)
--- NOTE | 2020-04-25 16:05 | NUR ---
SW following for discharge planning. Spoke with RN and reviewed chart. Discharge plan remains home, self-care when stable. SW available as needed.
[2020-04-25] MEDS: ONDANSETRON PF 4 MG/2 ML VIAL. IV PRN (16:15)
--- NOTE | 2020-04-25 16:26 | RAD ---
Procedure: Tunneled central line placement Clinical Indication: Adult male requiring central venous access. The previously placed access inadvertently pulled out. Sedation: Local anesthesia only Antibiotics: Antibiotic was administered intravenously within 1 hour of the procedure start time. Exposure: Kerma-Area Product: 0.2 Gycm2 Contrast: None Sterility: All elements of maximal sterile barrier technique including the use of a cap, mask, sterile gown, sterile gloves, large sterile sheet, appropriate hand hygiene, and 2% chlorhexidine for cutaneous antisepsis (or acceptable alternative antiseptic per current guidelines) were followed for this procedure. Consent: The procedure was explained in its entirety to the patient or the patients designated international representative by a member of the treatment team, including a discussion of the risks, benefits and commonly accepted alternatives to the procedure, as well as the expected consequences of no therapy whatsoever. Discussion of the risks included, but was not limited to, those that are most frequent and those that are rare but possibly severe or life-threatening, as well as the possibility of unforeseen complications. Technique and Findings: Following informed consent, the patient was prepped and draped in the usual sterile fashion. 1% lidocaine was used to achieve local anesthesia over the right neck. Ultrasound interrogation revealed patency and compressibility of the right internal jugular vein. A hardcopy ultrasound image was recorded as a 21-gauge micropuncture needle was used to gain access to this vein. The needle was exchanged over a wire for a 5 Turkmen peel-away sheath. The skin over the right anterior chest wall was then copiously anesthetized with 1% lidocaine. A small dermatotomy was made. A double lumen tunneled central line was then tunneled substantially towards the neck dermatotomy then deployed through the peel-away sheath under fluoroscopic guidance such that the distal tip resided at the cavoatrial junction. Both lumens flushed and aspirated with ease. The catheter was sutured to the skin. The dermatotomy over the neck was closed with Dermabond. Complications: No immediate Impression: 1. Fluoroscopic and ultrasound-guided placement of a tunneled cuffed right IJ central line as described.
[2020-04-25] MEDS: POTASSIUM CHLORIDE 10MEQ 100 ML IV SCH ×3 (17:23→19:13)
[2020-04-25 19:00] VITALS: BP 89/92
--- NOTE | 2020-04-25 20:52 | RAD ---
CT LOWER LEFT EXTREMITY WITHOUT CONTRAST History: Reason: Pain and swelling possible abscess / Spl. Instructions: / History: Comparison: None. Technique: Noncontrast CT imaging was performed of the right lower extremity. Coronal and sagittal re constructions were performed. Exposure: One or more of the following individualized dose reduction techniques were utilized for thi s examination: 1. Automated exposure control 2. Adjustment of the mA and/or kV according to patient size 3. Use of iterative reconstruction technique. Findings: Left total knee arthroplasty degrades adjacent structures due to beam hardening artifact. Diffuse lef t lower extremity subcutaneous edema. No loculated fluid collection to suggest abscess although lack of intravenous contrast degrades evaluation. Vascular calcifications. Internal fixation left lateral distal femur. No fracture. Mild tendinous str uctures are grossly intact. Posterior compartment regions of muscle atrophy. Impression: 1. Diffuse left lower extremity subcutaneous edema. No loculated fluid collection to suggest abscess although evaluation is degraded without IV contrast. If persistent clinical concern, follow-up ultra sound can further evaluate. 2. Left total knee arthroplasty. Electronically signed by: Shamar Raines DO (04/25/2020 8:49 PM) [facility]
[2020-04-25] MEDS: LACTOBACILLUS RHAMNOSUS GG 1 CAPSULE. PO SCH (21:00)
[2020-04-25 22:47] VITALS: BP 98/65
[2020-04-26 03:00] VITALS: BP 92/62
[2020-04-26] MEDS: PIPERACILLIN/TAZOBACTAM 3.375 GM in IV NORMAL SALINE 50ML 50 ML IV SCH ×4 (05:58→23:26)
[2020-04-26] MEDS: AMINO AC 3%/ELECTROLYTE/GLYCER 1,000 ML IV SCH ×2 (05:58→20:38)
[2020-04-26 06:56] LABS: CALCIUM 7.4 mg/dL (8.5-10.1); CREATININE 1.1 mg/dL (0.7-1.3); GFR 70.6; POTASSIUM 3.4 mmol/L (3.5-5.1)
[2020-04-26 07:00] VITALS: BP 91/58
[2020-04-26] MEDS: PANTOPRAZOLE IV PUSH 40 MG VIAL. IVP SCH ×2 (08:45→16:16)
[2020-04-26] MEDS: LACTOBACILLUS RHAMNOSUS GG 1 CAPSULE. PO SCH ×2 (08:45→20:38)
[2020-04-26] MEDS: ASPIRIN ENTERIC COATED 81 MG TABLET.DR. PO SCH (08:46)
[2020-04-26] MEDS: fentaNYL PF VIAL 100 MCG/2 ML VIAL IVP PRN ×2 (09:12→12:29)
--- NOTE | 2020-04-26 09:39 | CARD ---
MR#: [id number] Date of Study: 04/25/2020 Ordering Physician: JAMAL MORRIS, Referring Physician: JAMAL MORRIS, Tech: Kassandra Cary [facility] APPROVED REPORT EXAM: Two-dimensional and M-mode echocardiogram with Doppler and color Doppler. Other Information Quality : Technically LimitedHR: 104bpm Rhythm : NSRTechnically limited study due to body habitus, small intercostal spaces INDICATION Sepsis 2D DIMENSIONS RVDd3.0 (2.9-3.5cm)Left Atrium(2D)2.9 (1.6-4.0cm) IVSd1.2 (0.7-1.1cm)Aortic Root(2D)3.3 (2.0-3.7cm) LVDd3.6 (3.9-5.9cm)LVOT Diameter2.3 (1.8-2.4cm) PWd1.3 (0.7-1.1cm)LVDs2.1 (2.5-4.0cm) FS (%) 41.1 %SV39.3 ml LVEF(%)72.9 (>50%) Aortic Valve AoV Peak Freddie.129.9cm/sAoV VTI25.7cm AO Peak GR.6.8mmHgLVOT Peak Freddie.109.3cm/s AO Mean GR.3mmHgAVA (VMAX)3.42cm2 Mitral Valve MV E Jcpfwdvm61.0cm/sMV DECEL [id number] MV A Yusmsvel61.3cm/sE/A Ratio0.9 Pulmonary Valve PV Peak Dhynjqbr76.2cm/s Tricuspid Valve TR P. Ydnplzps741ct/sTR Peak Gr.17mmHg LEFT VENTRICLE The left ventricle is normal size. There is mild concentric left ventricular hypertrophy. The left ve ntricular systolic function is normal. The ejection fraction is estimated at 65%. There is normal LV segmental wall motion. Transmitral Doppler flow pattern is Grade I-abnormal relaxation pattern. RIGHT VENTRICLE The right ventricle is normal size. There is normal right ventricular wall thickness. The right ventr icular systolic function is normal. ATRIA The left atrium size is normal. The right atrium size is normal. The interatrial septum is intact wit h no evidence for an atrial septal defect or patent foramen ovale as noted on 2-D or Doppler imaging. AORTIC VALVE The aortic valve opens well. Doppler and Color Flow revealed mild aortic regurgitation. There is no s ignificant aortic valvular stenosis. There is small size aortic valvular vegetation. MITRAL VALVE The mitral valve is normal in structure and function. There is no evidence of mitral valve prolapse. There is no mitral valve stenosis. Doppler and Color Flow revealed no mitral valve regurgitation note d. TRICUSPID VALVE The tricuspid valve is normal in structure and function. Doppler and Color Flow revealed trace tricus pid regurgitation. Estimated PAP 20 mmHg. PULMONIC VALVE The pulmonary valve is normal in structure and function. Doppler and Color Flow revealed no pulmonic valvular regurgitation. GREAT VESSELS The aortic root is normal in size. The ascending aorta is normal in size. The IVC is normal in size a nd collapses >50% with inspiration. PERICARDIAL EFFUSION There is small pericardial effusion. Critical Notification Critical Value: No <Conclusion> The left ventricular systolic function is normal. The ejection fraction is estimated at 65%. There is normal LV segmental wall motion. Transmitral Doppler flow pattern is Grade I-abnormal relaxation pattern. Mild aortic regurgitation. Trace tricuspid regurgitation. Estimated PAP 20 mmHg. There is small pericardial effusion. Signed by : Chris Comer, Electronically Approved : 04/26/2020 09:39:24
--- NOTE | 2020-04-26 10:21 | PDOC ---
PROGRESS NOTES Date of Service: DATE: 04/26/20 TIME: 10:21 Chief Complaint Chief Complaint VTE Prophylaxis Ordered VTE Prophylaxis Devices: Yes VTE Pharmacological Prophylaxi: Yes Assessment/Plan Assessment/Plan Dehydration abnormal weight loss Person under investigation for COVID-19 Nausea vomiting and diarrhea Extensive occlusive left lower extremity deep venous thrombosis. DIABETES Bipolar disease Leukocytosis, ACD, JAQAUN, lactic acidosis, elevated LFTs, mildly elevated troponin H/o GERD and pancreatic pseudocysts s/p cystogastrostomy @ [facility], weight loss Pelvic lymphadenopathy, uncertain clinical significance, possibly reactive. Diffuse left lower extremity subcutaneous edema. No loculated fluid collection to suggest abscess although evaluation is degraded without IV contrast. PLAN ADMITTED GI CONSULT Consult IR for left leg venous thrombolysis. 04-24 nephrology consult vascular surgery following oncology consult ID CONSULT Continue iv zosyn BLOOD CULTURE Preliminary NO GROWTH AFTER 2 DAYS Procedure Performed 14 pod# 2 LLE venogram, thrombectomy, Iliac vein stent, tunnelled central line History of Present Illness History of Present Illness Patient is a 50 year old male brought in by EMS for nausea, vomiting and diarrhea since 04-22 . His emesis has been brown but denies any blood. Diarrhea is nonbloody nonbilious. Denies any fevers. Was tested for Covid but has not had it yet. Denies any positive contacts but knows people he has not been in contact who tested positive. Denies any fevers, cough. Has a history of pancreatitis and stents placed. vascular surgery and IR are following w/ plans for thrombectomy 04-24 . he might have been off Eliquis due to vomiting. GI-carnes, had gallstone pancreatitis in 09/2019 - s/p cholecystectomy then. The next month was admitted w/ strep bacteremia/resp failure - imaging at that time noted pancreatic pseudocysts. Since then, apparently underwent endoscopic fiorella juares of pseudocyst w/ stent and necrosectomy at . History is challenging - he's vomiting and not feeling well. Review of Systems: Review of Systems: All other systems within normal limits except for as noted in the HPI Vitals Vitals Vital Signs Date Time Temp Pulse Resp B/P (MAP) Pulse Ox O2 Delivery O2 Flow Rate FiO2 04/26/20 09:12 96 Room Air 2.0 04/26/20 08:46 94 91/58 04/26/20 07:00 99.4 16 99.4 Physical Exam Physical Exam swelling with erythema left calf and foot., slow to resolve General: Alert, Oriented X3, Cooperative, No acute distress Heart: Normal S1, Normal S2, No murmurs Lungs: Clear Abdomen: Normal bowel sounds, Soft, No tenderness Extremities: No cyanosis, No edema, Other (edema left foot and lower leg, calf) Skin: No rashes Labs LABS SPEC #: [id number] ZAC: 04/22/20 STATUS: RES REQ #: [id number] RECD: 04/24/[address] [facility] [address]: JAMAL MORRIS MD SOURCE: BLOOD ENTR: 04/24/[address] [facility] [address]: VISHAL KATZ III, DO SPDESC: MAUREEN,MIGUEL ORTIZ,ABMBI MOSER MD, APRN,BRIANNE Santiago MD ORDERED: SHANELLE COMMENTS: DRAWN IN ER Procedure Result BLOOD CULTURE Preliminary NO GROWTH AFTER 2 DAYS BAMBI SHEA APRN, MICHAEL F MD ORDERED: URINE CULTURE Procedure Result URINE CULTURE Final Final No Growth on 04/26/20 at 1306 Testing Performed by: [address] [address] For Inquires, the Physician may contact the Microbiology department at [phone] Unless otherwise specified, Testing Performed by: [address] [id number] For Inquires, the Physician may contact the Microbiology department at [phone] CT LOWER LEFT EXTREMITY WITHOUT CONTRAST History: Reason: Pain and swelling possible abscess / Spl. Instructions: / History: Comparison: None. Technique: Noncontrast CT imaging was performed of the right lower extremity. Coronal and sagittal reconstructions were performed. Exposure: One or more of the following individualized dose reduction techniques were utilized for this examination: 1. Automated exposure control 2. Adjustment of the mA and/or kV according to patient size 3. Use of iterative reconstruction technique. Findings: Left total knee arthroplasty degrades adjacent structures due to beam hardening artifact. Diffuse left lower extremity subcutaneous edema. No loculated fluid collection to suggest abscess although lack of intravenous contrast degrades evaluation. Vascular calcifications. Internal fixation left lateral distal femur. No fracture. Mild tendinous structures are grossly intact. Posterior compartment regions of muscle atrophy. Impression: 1. Diffuse left lower extremity subcutaneous edema. No loculated fluid collection to suggest abscess although evaluation is degraded without IV contrast. If persistent clinical concern, follow-up ultrasound can further evaluate. 2. Left total knee arthroplasty. Electronically signed by: Shaamr Riojas DO (04/25/2020 8:49 PM) [facility] DICTATED and SIGNED BY: SHAMAR RIOJAS DO DATE: 04/25/[id number] 0 Laboratory Tests Test 04/25/20 11:51 04/25/20 12:30 04/25/20 13:20 04/26/20 06:30 Direct Bilirubin 0.7 mg/dL (0.0-0.2) White Blood Count 4.5 x10^3/uL (4.0-11.0) Red Blood Count 2.84 x10^6/uL (4.30-5.70) Hemoglobin 7.4 g/dL (13.0-17.5) Hematocrit 23.0 % (39.0-53.0) Mean Corpuscular Volume 81 fL (79-100) Mean Corpuscular Hemoglobin 26 pg (25-35) Mean Corpuscular Hemoglobin Concent 32 g/dL (31-37) Red Cell Distribution Width 17.6 % (11.5-14.5) Platelet Count 146 x10^3/uL (140-400) Neutrophils (%) (Auto) 79 % (31-73) Lymphocytes (%) (Auto) 18 % (24-48) Monocytes (%) (Auto) 3 % (0-9) Eosinophils (%) (Auto) 0 % (0-3) Basophils (%) (Auto) 0 % (0-3) Neutrophils # (Auto) 3.6 x10^3/uL (1.8-7.7) Lymphocytes # (Auto) 0.8 x10^3/uL (1.0-4.8) Monocytes # (Auto) 0.2 x10^3/uL (0.0-1.1) Eosinophils # (Auto) 0.0 x10^3/uL (0.0-0.7) Basophils # (Auto) 0.0 x10^3/uL (0.0-0.2) Absolute Reticulocyte Count 0.012 x10^6/uL (0.020-0.120) Percent Reticulocyte Count 0.4 % (0.5-2.3) Immature Reticulocyte Fraction 0.21 (0.20-0.60) Sodium Level 140 mmol/L (136-145) 141 mmol/L (136-145) Potassium Level 2.9 mmol/L (3.5-5.1) 3.4 mmol/L (3.5-5.1) Chloride Level 107 mmol/L (98-107) 109 mmol/L (98-107) Carbon Dioxide Level 20 mmol/L (21-32) 21 mmol/L (21-32) Anion Gap 13 (6-14) 11 (6-14) Blood Urea Nitrogen 21 mg/dL (8-26) 18 mg/dL (8-26) Creatinine 1.3 mg/dL (0.7-1.3) 1.1 mg/dL (0.7-1.3) Estimated GFR (Cockcroft-Gault) 58.2 70.6 BUN/Creatinine Ratio 16 (6-20) Glucose Level 98 mg/dL (70-99) 146 mg/dL (70-99) Calcium Level 7.8 mg/dL (8.5-10.1) 7.4 mg/dL (8.5-10.1) Iron Level 88 ug/dL (65-175) Total Iron Binding Capacity 89 ug/dL (250-450) Iron Saturation 99 % (15-34) Total Bilirubin 1.1 mg/dL (0.2-1.0) Aspartate Amino Transf (AST/SGOT) 44 U/L (15-37) Alanine Aminotransferase (ALT/SGPT) 21 U/L (16-63) Alkaline Phosphatase 121 U/L (46-116) Total Protein 5.3 g/dL (6.4-8.2) Albumin 1.8 g/dL (3.4-5.0) Albumin/Globulin Ratio 0.5 (1.0-1.7) Procalcitonin 0.38 ng/mL (0.00-0.10) Urine Collection Type Unknown Urine Color Yellow Urine Clarity Clear Urine pH 6.0 (<5.0-8.0) Urine Specific Porum >=1.030 (1.000-1.030) Urine Protein Negative mg/dL (NEG-TRACE) Urine Glucose (UA) Negative mg/dL (NEG) Urine Ketones (Stick) Trace mg/dL (NEG) Urine Blood Negative (NEG) Urine Nitrite Negative (NEG) Urine Bilirubin Small (NEG) Urine Urobilinogen Dipstick 1.0 mg/dL (0.2 mg/dL) Urine Leukocyte Esterase Small (NEG) Urine RBC 0 /HPF (0-2) Urine WBC 1-4 /HPF (0-4) Urine Renal Epithelial Cells Few /LPF Urine Bacteria 0 /HPF (0-FEW) Urine Mucus Slight /LPF Urine Opiates Screen Pos (NEG) Urine Methadone Screen Neg (NEG) Urine Barbiturates Neg (NEG) Urine Phencyclidine Screen Neg (NEG) Urine Amphetamine/Methamphetamine Neg (NEG) Urine Benzodiazepines Screen Pos (NEG) Urine Cocaine Screen Neg (NEG) Urine Cannabinoids Screen Neg (NEG) Urine Ethyl Alcohol Neg (NEG) Troponin I Quantitative 0.038 ng/mL (0.000-0.055) Assessment and Plan Assessmemt and Plan Problems Medical Problems: (1) Dehydration Status: Acute (2) Nausea vomiting and diarrhea Status: Acute (3) Person under investigation for COVID-19 Status: Acute Comment Review of Relevant I have reviewed the following items blaze (where applicable) has been applied. Labs Laboratory Tests Test 04/24/20 13:18 04/25/20 11:51 04/25/20 12:30 04/25/20 13:20 Lactic Acid Level 2.8 mmol/L (0.4-2.0) Direct Bilirubin 0.7 mg/dL (0.0-0.2) White Blood Count 4.5 x10^3/uL (4.0-11.0) Red Blood Count 2.84 x10^6/uL (4.30-5.70) Hemoglobin 7.4 g/dL (13.0-17.5) Hematocrit 23.0 % (39.0-53.0) Mean Corpuscular Volume 81 fL (79-100) Mean Corpuscular Hemoglobin 26 pg (25-35) Mean Corpuscular Hemoglobin Concent 32 g/dL (31-37) Red Cell Distribution Width 17.6 % (11.5-14.5) Platelet Count 146 x10^3/uL (140-400) Neutrophils (%) (Auto) 79 % (31-73) Lymphocytes (%) (Auto) 18 % (24-48) Monocytes (%) (Auto) 3 % (0-9) Eosinophils (%) (Auto) 0 % (0-3) Basophils (%) (Auto) 0 % (0-3) Neutrophils # (Auto) 3.6 x10^3/uL (1.8-7.7) Lymphocytes # (Auto) 0.8 x10^3/uL (1.0-4.8) Monocytes # (Auto) 0.2 x10^3/uL (0.0-1.1) Eosinophils # (Auto) 0.0 x10^3/uL (0.0-0.7) Basophils # (Auto) 0.0 x10^3/uL (0.0-0.2) Absolute Reticulocyte Count 0.012 x10^6/uL (0.020-0.120) Percent Reticulocyte Count 0.4 % (0.5-2.3) Immature Reticulocyte Fraction 0.21 (0.20-0.60) Sodium Level 140 mmol/L (136-145) Potassium Level 2.9 mmol/L (3.5-5.1) Chloride Level 107 mmol/L (98-107) Carbon Dioxide Level 20 mmol/L (21-32) Anion Gap 13 (6-14) Blood Urea Nitrogen 21 mg/dL (8-26) Creatinine 1.3 mg/dL (0.7-1.3) Estimated GFR (Cockcroft-Gault) 58.2 BUN/Creatinine Ratio 16 (6-20) Glucose Level 98 mg/dL (70-99) Calcium Level 7.8 mg/dL (8.5-10.1) Iron Level 88 ug/dL (65-175) Total Iron Binding Capacity 89 ug/dL (250-450) Iron Saturation 99 % (15-34) Total Bilirubin 1.1 mg/dL (0.2-1.0) Aspartate Amino Transf (AST/SGOT) 44 U/L (15-37) Alanine Aminotransferase (ALT/SGPT) 21 U/L (16-63) Alkaline Phosphatase 121 U/L (46-116) Total Protein 5.3 g/dL (6.4-8.2) Albumin 1.8 g/dL (3.4-5.0) Albumin/Globulin Ratio 0.5 (1.0-1.7) Procalcitonin 0.38 ng/mL (0.00-0.10) Urine Collection Type Unknown Urine Color Yellow Urine Clarity Clear Urine pH 6.0 (<5.0-8.0) Urine Specific Porum >=1.030 (1.000-1.030) Urine Protein Negative mg/dL (NEG-TRACE) Urine Glucose (UA) Negative mg/dL (NEG) Urine Ketones (Stick) Trace mg/dL (NEG) Urine Blood Negative (NEG) Urine Nitrite Negative (NEG) Urine Bilirubin Small (NEG) Urine Urobilinogen Dipstick 1.0 mg/dL (0.2 mg/dL) Urine Leukocyte Esterase Small (NEG) Urine RBC 0 /HPF (0-2) Urine WBC 1-4 /HPF (0-4) Urine Renal Epithelial Cells Few /LPF Urine Bacteria 0 /HPF (0-FEW) Urine Mucus Slight /LPF Urine Opiates Screen Pos (NEG) Urine Methadone Screen Neg (NEG) Urine Barbiturates Neg (NEG) Urine Phencyclidine Screen Neg (NEG) Urine Amphetamine/Methamphetamine Neg (NEG) Urine Benzodiazepines Screen Pos (NEG) Urine Cocaine Screen Neg (NEG) Urine Cannabinoids Screen Neg (NEG) Urine Ethyl Alcohol Neg (NEG) Test 04/26/20 06:30 Sodium Level 141 mmol/L (136-145) Potassium Level 3.4 mmol/L (3.5-5.1) Chloride Level 109 mmol/L (98-107) Carbon Dioxide Level 21 mmol/L (21-32) Anion Gap 11 (6-14) Blood Urea Nitrogen 18 mg/dL (8-26) Creatinine 1.1 mg/dL (0.7-1.3) Estimated GFR (Cockcroft-Gault) 70.6 Glucose Level 146 mg/dL (70-99) Calcium Level 7.4 mg/dL (8.5-10.1) Troponin I Quantitative 0.038 ng/mL (0.000-0.055) Laboratory Tests Test 1/15/21 11:51 04/25/20 12:30 04/25/20 13:20 04/26/20 06:30 Direct Bilirubin 0.7 mg/dL (0.0-0.2) White Blood Count 4.5 x10^3/uL (4.0-11.0) Red Blood Count 2.84 x10^6/uL (4.30-5.70) Hemoglobin 7.4 g/dL (13.0-17.5) Hematocrit 23.0 % (39.0-53.0) Mean Corpuscular Volume 81 fL (79-100) Mean Corpuscular Hemoglobin 26 pg (25-35) Mean Corpuscular Hemoglobin Concent 32 g/dL (31-37) Red Cell Distribution Width 17.6 % (11.5-14.5) Platelet Count 146 x10^3/uL (140-400) Neutrophils (%) (Auto) 79 % (31-73) Lymphocytes (%) (Auto) 18 % (24-48) Monocytes (%) (Auto) 3 % (0-9) Eosinophils (%) (Auto) 0 % (0-3) Basophils (%) (Auto) 0 % (0-3) Neutrophils # (Auto) 3.6 x10^3/uL (1.8-7.7) Lymphocytes # (Auto) 0.8 x10^3/uL (1.0-4.8) Monocytes # (Auto) 0.2 x10^3/uL (0.0-1.1) Eosinophils # (Auto) 0.0 x10^3/uL (0.0-0.7) Basophils # (Auto) 0.0 x10^3/uL (0.0-0.2) Absolute Reticulocyte Count 0.012 x10^6/uL (0.020-0.120) Percent Reticulocyte Count 0.4 % (0.5-2.3) Immature Reticulocyte Fraction 0.21 (0.20-0.60) Sodium Level 140 mmol/L (136-145) 141 mmol/L (136-145) Potassium Level 2.9 mmol/L (3.5-5.1) 3.4 mmol/L (3.5-5.1) Chloride Level 107 mmol/L (98-107) 109 mmol/L (98-107) Carbon Dioxide Level 20 mmol/L (21-32) 21 mmol/L (21-32) Anion Gap 13 (6-14) 11 (6-14) Blood Urea Nitrogen 21 mg/dL (8-26) 18 mg/dL (8-26) Creatinine 1.3 mg/dL (0.7-1.3) 1.1 mg/dL (0.7-1.3) Estimated GFR (Cockcroft-Gault) 58.2 70.6 BUN/Creatinine Ratio 16 (6-20) Glucose Level 98 mg/dL (70-99) 146 mg/dL (70-99) Calcium Level 7.8 mg/dL (8.5-10.1) 7.4 mg/dL (8.5-10.1) Iron Level 88 ug/dL (65-175) Total Iron Binding Capacity 89 ug/dL (250-450) Iron Saturation 99 % (15-34) Total Bilirubin 1.1 mg/dL (0.2-1.0) Aspartate Amino Transf (AST/SGOT) 44 U/L (15-37) Alanine Aminotransferase (ALT/SGPT) 21 U/L (16-63) Alkaline Phosphatase 121 U/L (46-116) Total Protein 5.3 g/dL (6.4-8.2) Albumin 1.8 g/dL (3.4-5.0) Albumin/Globulin Ratio 0.5 (1.0-1.7) Procalcitonin 0.38 ng/mL (0.00-0.10) Urine Collection Type Unknown Urine Color Yellow Urine Clarity Clear Urine pH 6.0 (<5.0-8.0) Urine Specific Porum >=1.030 (1.000-1.030) Urine Protein Negative mg/dL (NEG-TRACE) Urine Glucose (UA) Negative mg/dL (NEG) Urine Ketones (Stick) Trace mg/dL (NEG) Urine Blood Negative (NEG) Urine Nitrite Negative (NEG) Urine Bilirubin Small (NEG) Urine Urobilinogen Dipstick 1.0 mg/dL (0.2 mg/dL) Urine Leukocyte Esterase Small (NEG) Urine RBC 0 /HPF (0-2) Urine WBC 1-4 /HPF (0-4) Urine Renal Epithelial Cells Few /LPF Urine Bacteria 0 /HPF (0-FEW) Urine Mucus Slight /LPF Urine Opiates Screen Pos (NEG) Urine Methadone Screen Neg (NEG) Urine Barbiturates Neg (NEG) Urine Phencyclidine Screen Neg (NEG) Urine Amphetamine/Methamphetamine Neg (NEG) Urine Benzodiazepines Screen Pos (NEG) Urine Cocaine Screen Neg (NEG) Urine Cannabinoids Screen Neg (NEG) Urine Ethyl Alcohol Neg (NEG) Troponin I Quantitative 0.038 ng/mL (0.000-0.055) Microbiology 04/24/20 Blood Culture - Preliminary, Resulted NO GROWTH AFTER 2 DAYS Medications Current Medications Ringer's Solution 500 ml @ 500 mls/hr 1X ONCE IV Last administered on 04/22/20at 19:15; Start 04/22/20 at 19:15; Stop 04/22/20 at 20:14; Status DC Ondansetron HCl (Zofran) 4 mg 1X ONCE IVP Last administered on 04/22/20at 20:33; Start 04/22/20 at 19:15; Stop 04/22/20 at 19:17; Status DC Lorazepam (Ativan Inj) 2 mg 1X ONCE IVP Last administered on 04/22/20at 20:36; Start 04/22/20 at 20:30; Stop 04/22/20 at 20:31; Status DC Prochlorperazine Edisylate (Compazine) 10 mg 1X ONCE IV Last administered on 04/22/20at 21:45; Start 04/22/20 at 21:45; Stop 04/22/20 at 21:46; Status DC Sodium Chloride 1,000 ml @ 1,000 mls/hr 1X ONCE IV Last administered on 04/22/20at 21:52; Start 04/22/20 at 21:45; Stop 04/22/20 at 22:44; Status DC Potassium Chloride/Sodium Chloride 1,000 ml @ 125 mls/hr Q8H ONCE IV Last administered on 04/22/20at 21:46; Start 04/22/20 at 21:45; Stop 04/23/20 at 05:44; Status DC Diphenhydramine HCl (Benadryl) 25 mg 1X ONCE IVP Last administered on 04/22/20at 22:39; Start 04/22/20 at 22:45; Stop 04/22/20 at 22:46; Status DC Ondansetron HCl (Zofran) 4 mg PRN Q8HRS PRN IV NAUSEA/VOMITING Last administered on 04/22/20at 23:46; Start 04/22/20 at 23:45; Stop 04/23/20 at 02:11; Status DC Morphine Sulfate (Morphine Sulfate) 4 mg PRN Q2HR PRN IV PAIN Last administered on 04/23/20at 18:03; Start 04/22/20 at 23:45; Stop 04/23/20 at 23:44; Status DC Fentanyl Citrate (Fentanyl 2ml Vial) 50 mcg PRN Q1HR PRN IV PAIN; Start 04/22/20 at 23:45; Stop 04/23/20 at 23:44; Status DC Acetaminophen (Tylenol) 650 mg PRN Q4HRS PRN PO FEVER > 100.3'F; Start 04/22/20 at 23:45; Stop 04/23/20 at 23:44; Status DC Ringer's Solution 1,000 ml @ 125 mls/hr 1X ONCE IV Last administered on 04/23/20at 03:29; Start 04/22/20 at 23:45; Stop 04/23/20 at 07:44; Status DC Potassium Chloride/Water 100 ml @ 50 mls/hr 1X ONCE IV Last administered on 04/23/20at 00:04; Start 04/22/20 at 23:45; Stop 04/23/20 at 01:44; Status DC Lorazepam (Ativan Inj) 1 mg PRN Q4HRS PRN IVP ANXIETY / AGITATION Last administered on 04/23/20at 19:46; Start 04/22/20 at 23:45 Ondansetron HCl (Zofran) 4 mg PRN Q4HRS PRN IVP NAUSEA/VOMITING Last administered on 04/24/20at 01:53; Start 04/23/20 at 02:15; Stop 04/24/20 at 10:07; Status DC Enoxaparin Sodium (Lovenox 60mg Syringe) 60 mg Q12HR SQ Last administered on 04/26/20at 08:48; Start 04/23/20 at 09:00 Apixaban (Eliquis) 2.5 mg DAILY PO ; Start 04/24/20 at 09:00; Status UNV Pantoprazole Sodium (PROTONIX VIAL for IV PUSH) 40 mg DAILYAC IVP ; Start 04/23/20 at 14:30; Stop 04/23/20 at 14:33; Status DC Pantoprazole Sodium (PROTONIX VIAL for IV PUSH) 40 mg BIDAC IVP Last administered on 04/26/20at 08:45; Start 04/23/20 at 16:30 Amino Acids/ Glycerin/ Electrolytes 1,000 ml @ 80 mls/hr [id number] IV Last administered on 04/26/20at 05:58; Start 04/23/20 at 16:45 Potassium Chloride/Water 100 ml @ 50 mls/hr 1X ONCE IV Last administered on 04/23/20at 19:39; Start 04/23/20 at 18:30; Stop 04/23/20 at 20:29; Status DC Sodium Chloride 1,000 ml @ 250 mls/hr 1X ONCE IV Last administered on 04/24/20at 09:08; Start 04/24/20 at 08:30; Stop 04/24/20 at 12:29; Status DC Sodium Chloride (Normal Saline Flush) 3 ml QSHIFT PRN IV AFTER MEDS AND BLOOD DRAWS; Start 04/24/20 at 08:30 Ondansetron HCl (Zofran) 4 mg PRN Q4HRS PRN IV NAUSEA/VOMITING Last administered on 04/25/20at 16:15; Start 04/24/20 at 08:30 Acetaminophen (Tylenol Supp) 650 mg PRN Q4HRS PRN RI TEMP OVER 100.4F OR MILD PAIN; Start 04/24/20 at 08:30 Sodium Monofluorophosphate (Fleet Adult) 133 ml PRN DAILY PRN RI CONSTIPATION; Start 04/24/20 at 08:30 Docusate Sodium (Colace) 100 mg PRN BID PRN PO HARD STOOLS Last administered on 04/25/20at 15:59; Start 04/24/20 at 08:30 Albuterol Sulfate (Ventolin Neb Soln) 2.5 mg PRN Q4HRS PRN NEB SHORTNESS OF BREATH; Start 04/24/20 at 08:30 Guaifenesin (Robitussin) 200 mg PRN Q4HRS PRN PO COUGH; Start 04/24/20 at 08:30 Piperacillin Sod/ Tazobactam Sod 3.375 gm/Sodium Chloride 50 ml @ 100 mls/hr Q6HRS IV Last administered on 04/26/20at 05:58; Start 04/24/20 at 08:30 Potassium Chloride/Water 100 ml @ 100 mls/hr Q1H IV ; Start 04/24/20 at 09:00; Stop 04/24/20 at 12:59; Status DC Lidocaine HCl (Buffered Lidocaine 1%) 3 ml STK-MED ONCE .ROUTE ; Start 04/24/20 at 13:36; Stop 04/24/20 at 13:37; Status DC Iodixanol (Visipaque 320) 100 ml STK-MED ONCE .ROUTE ; Start 04/24/20 at 13:36; Stop 04/24/20 at 13:37; Status DC Heparin Sodium/ Sodium Chloride 500 ml @ As Directed STK-MED ONCE .ROUTE ; Start 04/24/20 at 13:37; Stop 04/24/20 at 13:37; Status DC Midazolam HCl (Versed) 2 mg STK-MED ONCE .ROUTE ; Start 04/24/20 at 13:42; Stop 04/24/20 at 13:43; Status DC Fentanyl Citrate (Fentanyl 2ml Vial) 100 mcg STK-MED ONCE .ROUTE ; Start 04/24/20 at 13:42; Stop 04/24/20 at 13:43; Status DC Heparin Sodium (Porcine) (Heparin Sodium) 10,000 unit STK-MED ONCE .ROUTE ; Start 04/24/20 at 13:43; Stop 04/24/20 at 13:43; Status DC Lidocaine/ Epinephrine (LIDOCAINE 2%-EPI 1:100,000 multi-dose) 20 ml STK-MED ONCE .ROUTE ; Start 04/24/20 at 14:33; Stop 04/24/20 at 14:33; Status DC Heparin Sodium/ Sodium Chloride 500 ml @ As Directed STK-MED ONCE .ROUTE ; Start 04/24/20 at 15:28; Stop 04/24/20 at 15:28; Status DC Heparin Sodium/ Sodium Chloride (HEPARIN for ARTERIAL LINE FLUSH) 1,000 unit 1X ONCE IART Last administered on 04/24/20at 15:30; Start 04/24/20 at 15:30; Stop 04/24/20 at 15:37; Status DC Heparin Sodium/ Sodium Chloride (HEPARIN for ARTERIAL LINE FLUSH) 1,000 unit 1X ONCE IART Last administered on 04/24/20at 15:30; Start 04/24/20 at 15:30; Stop 04/24/20 at 15:37; Status DC Lidocaine HCl (Buffered Lidocaine 1%) 6 ml 1X ONCE IJ Last administered on 04/24/20at 15:30; Start 04/24/20 at 15:30; Stop 04/24/20 at 15:37; Status DC Midazolam HCl (Versed) 1 mg 1X ONCE IV Last administered on 04/24/20at 15:30; Start 04/24/20 at 15:30; Stop 04/24/20 at 15:37; Status DC Fentanyl Citrate (Fentanyl 2ml Vial) 50 mcg 1X ONCE IV Last administered on 04/24/20at 15:30; Start 04/24/20 at 15:30; Stop 04/24/20 at 15:37; Status DC Heparin Sodium (Porcine) (Heparin Sodium) 5,000 unit 1X ONCE IV Last administered on 04/24/20at 15:30; Start 04/24/20 at 15:30; Stop 04/24/20 at 15:37; Status DC Lidocaine/ Epinephrine (LIDOCAINE 1%-EPI 1:100,000 Multi-Dose) 20 ml 1X ONCE INJ Last administered on 04/24/20at 15:30; Start 04/24/20 at 15:30; Stop 04/24/20 at 15:37; Status DC Iodixanol (Visipaque 320) 100 ml 1X ONCE IART Last administered on 04/24/20at 1 5:30; Start 04/24/20 at 15:30; Stop 04/24/20 at 15:37; Status DC Aspirin (Ecotrin) 81 mg DAILYWBKFT PO Last administered on 04/26/20at 08:46; Start 04/25/20 at 08:00 Iodixanol (Visipaque 320) 50 ml STK-MED ONCE .ROUTE ; Start 04/24/20 at 15:48; Stop 04/24/20 at 15:48; Status DC Fentanyl Citrate (Fentanyl 2ml Vial) 50 mcg PRN Q2HR PRN IVP PAIN Last administered on 04/26/20at 09:12; Start 04/24/20 at 18:30 Lorazepam (Ativan) 0.5 mg PRN Q8HRS PRN PO ANXIETY / AGITATION Last administered on 04/25/20at 05:26; Start 04/25/20 at 05:00 Acetaminophen/ Hydrocodone Bitart (Lortab 5/325) 1 tab PRN Q6HRS PRN PO MODERATE PAIN 4-6 Last administered on 04/25/20at 15:59; Start 04/25/20 at 05:00 Amlodipine Besylate (Norvasc) 10 mg DAILY PO Last administered on 04/25/20at 08 :56; Start 04/25/20 at 09:00 Info (Anti-Coagulation Monitoring By Pharmacy) 1 each PRN DAILY PRN MC SEE COMMENTS Last administered on 04/25/20at 13:07; Start 04/25/20 at 13:00 Lactobacillus Rhamnosus (Culturelle) 1 cap BID PO Last administered on 04/26/20a t 08:45; Start 04/25/20 at 21:00 Potassium Chloride (Klor-Con) 30 meq 1X ONCE PO Last administered on 04/25/20at 15:59; Start 04/25/20 at 14:00; Stop 04/25/20 at 14:01; Status DC Lidocaine/ Epinephrine (LIDOCAINE 2%-EPI 1:100,000 multi-dose) 20 ml STK-MED ONCE .ROUTE ; Start 04/25/20 at 14:44; Stop 04/25/20 at 14:44; Status DC Heparin Sodium (Porcine) (Hep Lock Adult) 500 unit STK-MED ONCE IVP ; Start 04/25/20 at 14:44; Stop 04/25/20 at 14:44; Status DC Lidocaine/ Epinephrine (LIDOCAINE 2%-EPI 1:100,000 multi-dose) 20 ml 1X ONCE IJ Last administered on 04/25/20at 15:30; Start 04/25/20 at 15:30; Stop 04/25/20 at 15:31; Status DC Heparin Sodium (Porcine) (Hep Lock Adult) 500 unit 1X ONCE IVP Last administered on 04/25/20at 15:30; Start 04/25/20 at 15:30; Stop 04/25/20 at 15:31; Status DC Potassium Chloride/Water 100 ml @ 100 mls/hr Q1H IV Last administered on 04/25/20at 19:13; Start 04/25/20 at 16:30; Stop 04/25/20 at 19:29; Status DC Active Scripts Active Proair Hfa (Albuterol Sulfate) 8.5 Gm Hfa.aer.ad 2.5 Mg NEB PRN Q4HRS PRN 14 Days Reported Percocet 7.5-325 Mg Tablet (Oxycodone/Acetaminophen) 1 Each Tablet 1 Tab PO PRN Q6HRS PRN Zofran (Ondansetron Hcl) 4 Mg Tablet 1 Tab PO Q6HRS Eliquis (Apixaban) 2.5 Mg Tablet Unknown Dose PO UNK Lidocaine PATCH (Lidocaine) 1 Each Adh..patch 1 Each TP DAILY REMOVE AFTER 12 HOURS Clonazepam 1 Mg Tablet 1 Mg PO BID [place] Carbonate 300 Mg Tablet 1 Tab PO BID Zanaflex (Tizanidine Hcl) 4 Mg Capsule 1 Cap PO TID PRN Vitals/I & O Vital Sign - Last 24 Hours 04/25/20 04/25/20 04/25/20 04/25/20 11:00 15:00 15:59 17:00 Temp 96.9 98.3 96.9 98.3 Pulse 90 99 Resp 27 23 B/P (MAP) 123/54 (77) 94/63 (73) Pulse Ox 92 79 O2 Delivery Room Air Room Air 04/25/20 04/25/20 04/25/20 04/26/20 19:00 20:00 22:47 03:00 Temp 97.8 98.6 98.8 97.8 98.6 98.8 Pulse 89 87 68 Resp 18 18 18 B/P (MAP) 89/92 (91) 98/65 (76) 92/62 (72) Pulse Ox 99 96 96 O2 Delivery Room Air Room Air Room Air Room Air O2 Flow Rate 2.0 2.0 2.0 2.0 04/26/20 04/26/20 04/26/20 07:00 08:46 09:12 Temp 99.4 99.4 Pulse 94 94 Resp 16 B/P (MAP) 91/58 (69) 91/58 Pulse Ox 96 96 O2 Delivery Room Air Room Air O2 Flow Rate 2.0 Intake and Output 04/25/20 04/25/20 04/26/20 15:00 23:00 07:00 Intake Total 400 ml 150 ml 0 ml Balance 400 ml 150 ml 0 ml Nutrition Consultation Dietary Evaluation: Recommendations by RD: Dietary education by RD, PPN/TPN Comments: REC continue PPN at this time REC ADA/Cardiac diet when able to advance with Glucerna supplements D/c PPN when po intake is >50% of meals Expected Outcomes/Goals: to meet >75% est nutr needs via po intake Interpretation of weight loss: >10% in 6 months Malnutrition Findings: Food and Nutrition Intake (Sev: <50% est energy req 5days Body Fat Depletion (Non Severe: Mild Depletion Weight Status: Appropriate Justicifation of Admission Dx: Justifications for Admission: Justification of Admission Dx: Yes Comminuty Aquired Pneumonia: Hemodynamic Instability Acute Renal Failure: RF Can't Be Managed Outpt Sepsis: Altered Mental Status DKA: DKA JAMAL MORRIS MD Apr 26, 2020 10:21
[2020-04-26 11:08] VITALS: BP 92/58
--- NOTE | 2020-04-26 11:23 | PDOC ---
Infectious Disease Note Subjective: Subjective pt feels a little better more alert today on ra Vital Signs: Vital Signs Vital Signs Date Time Temp Pulse Resp B/P (MAP) Pulse Ox O2 Delivery O2 Flow Rate FiO2 04/26/20 11:08 98.8 86 16 92/58 (69) 99 Room Air 98.8 04/26/20 09:12 2.0 Physical Exam: PHYSICAL EXAM General: Alert, No acute distress HEENT: Atraumatic, EOMI, Mucous membr. moist/pink Lungs: Clear to auscultation Heart: Normal S1, Normal S2, No murmurs Abdomen: Normal bowel sounds, Soft, No tenderness Extremities: No cyanosis, No edema MSK: TKA sites well-healed Skin: No rashes Neuro: Alert awake moves all 4 extremities Medications: Inpatient Meds: Current Medications Medications (Trade) Dose Ordered Sig/Edilma Start Time Stop Time Status Last Admin Dose Admin Acetaminophen (Tylenol Supp) 650 mg PRN Q4HRS PRN 04/24/20 08:30 Acetaminophen (Tylenol) 650 mg PRN Q4HRS PRN 04/22/20 23:45 04/23/20 23:44 DC Acetaminophen/ Hydrocodone Bitart (Lortab 5/325) 1 tab PRN Q6HRS PRN 04/25/20 05:00 04/25/20 15:59 1 TAB Albuterol Sulfate (Ventolin Neb Soln) 2.5 mg PRN Q4HRS PRN 04/24/20 08:30 Amino Acids/ Glycerin/ Electrolytes 1,000 ml @ 80 mls/hr [id number] 04/23/20 16:45 04/26/20 05:58 80 MLS/HR Amlodipine Besylate (Norvasc) 10 mg DAILY 04/25/20 09:00 04/25/20 08:56 10 MG Apixaban (Eliquis) 2.5 mg DAILY 04/24/20 09:00 UNV Aspirin (Ecotrin) 81 mg [id number] 04/25/20 08:00 04/26/20 08:46 81 MG Diphenhydramine HCl (Benadryl) 25 mg 1X ONCE 04/22/20 22:45 04/22/20 22:46 DC 04/22/20 22:39 25 MG Docusate Sodium (Colace) 100 mg PRN BID PRN 04/24/20 08:30 04/25/20 15:59 100 MG Enoxaparin Sodium (Lovenox 60mg Syringe) 60 mg Q12HR 04/23/20 09:00 04/26/20 08:48 60 MG Fentanyl Citrate (Fentanyl 2ml Vial) 50 mcg PRN Q2HR PRN 04/24/20 18:30 04/26/20 09:12 50 MCG Guaifenesin (Robitussin) 200 mg PRN Q4HRS PRN 04/24/20 08:30 Heparin Sodium (Porcine) (Hep Lock Adult) 500 unit 1X ONCE 04/25/20 15:30 04/25/20 15:31 DC 04/25/20 15:30 500 UNIT Heparin Sodium (Porcine) (Heparin Sodium) 5,000 unit 1X ONCE 04/24/20 15:30 04/24/20 15:37 DC 04/24/20 15:30 5,000 UNIT Heparin Sodium/ Sodium Chloride (HEPARIN for ARTERIAL LINE FLUSH) 1,000 unit 1X ONCE 04/24/20 15:30 04/24/20 15:37 DC 04/24/20 15:30 1,000 UNIT Info (Anti-Coagulation Monitoring By Pharmacy) 1 each PRN DAILY PRN 04/25/20 13:00 04/25/20 13:07 1 EACH Iodixanol (Visipaque 320) 50 ml STK-MED ONCE 04/24/20 15:48 04/24/20 15:48 DC Lactobacillus Rhamnosus (Culturelle) 1 cap BID 04/25/20 21:00 04/26/20 08:45 1 CAP Lidocaine HCl (Buffered Lidocaine 1%) 6 ml 1X ONCE 04/24/20 15:30 04/24/20 15:37 DC 04/24/20 15:30 4 ML Lidocaine/ Epinephrine (LIDOCAINE 1%-EPI 1:100,000 Multi-Dose) 20 ml 1X ONCE 04/24/20 15:30 04/24/20 15:37 DC 04/24/20 15:30 9 ML Lidocaine/ Epinephrine (LIDOCAINE 2%-EPI 1:100,000 multi-dose) 20 ml 1X ONCE 04/25/20 15:30 04/25/20 15:31 DC 04/25/20 15:30 7 ML Lorazepam (Ativan Inj) 1 mg PRN Q4HRS PRN 04/22/20 23:45 04/23/20 19:46 1 MG Lorazepam (Ativan) 0.5 mg PRN Q8HRS PRN 04/25/20 05:00 04/25/20 05:26 0.5 MG Midazolam HCl (Versed) 1 mg 1X ONCE 04/24/20 15:30 04/24/20 15:37 DC 04/24/20 15:30 1 MG Morphine Sulfate (Morphine Sulfate) 4 mg PRN Q2HR PRN 04/22/20 23:45 04/23/20 23:44 DC 04/23/20 18:03 4 MG Ondansetron HCl (Zofran) 4 mg PRN Q4HRS PRN 04/24/20 08:30 04/25/20 16:15 4 MG Pantoprazole Sodium (PROTONIX VIAL for IV PUSH) 40 mg BIDAC 04/23/20 16:30 04/26/20 08:45 40 MG Piperacillin Sod/ Tazobactam Sod 3.375 gm/Sodium Chloride 50 ml @ 100 mls/hr Q6HRS 04/24/20 08:30 04/26/20 05:58 100 MLS/HR Potassium Chloride/Sodium Chloride 1,000 ml @ 125 mls/hr Q8H ONCE 04/22/20 21:45 04/23/20 05:44 DC 04/22/20 21:46 125 MLS/HR Potassium Chloride/Water 100 ml @ 100 mls/hr Q1H 04/26/20 11:00 04/26/20 12:59 Potassium Chloride (Klor-Con) 30 meq 1X ONCE 04/25/20 14:00 04/25/20 14:01 DC 04/25/20 15:59 30 MEQ Prochlorperazine Edisylate (Compazine) 10 mg 1X ONCE 04/22/20 21:45 04/22/20 21:46 DC 04/22/20 21:45 10 MG Ringer's Solution 1,000 ml @ 125 mls/hr 1X ONCE 04/22/20 23:45 04/23/20 07:44 DC 04/23/20 03:29 125 MLS/HR Sodium Monofluorophosphate (Fleet Adult) 133 ml PRN DAILY PRN 04/24/20 08:30 Sodium Chloride (Normal Saline Flush) 3 ml QSHIFT PRN 04/24/20 08:30 Labs: Lab Laboratory Tests Test 04/25/20 11:51 04/25/20 12:30 04/25/20 13:20 04/26/20 06:30 Direct Bilirubin 0.7 mg/dL (0.0-0.2) White Blood Count 4.5 x10^3/uL (4.0-11.0) Red Blood Count 2.84 x10^6/uL (4.30-5.70) Hemoglobin 7.4 g/dL (13.0-17.5) Hematocrit 23.0 % (39.0-53.0) Mean Corpuscular Volume 81 fL (79-100) Mean Corpuscular Hemoglobin 26 pg (25-35) Mean Corpuscular Hemoglobin Concent 32 g/dL (31-37) Red Cell Distribution Width 17.6 % (11.5-14.5) Platelet Count 146 x10^3/uL (140-400) Neutrophils (%) (Auto) 79 % (31-73) Lymphocytes (%) (Auto) 18 % (24-48) Monocytes (%) (Auto) 3 % (0-9) Eosinophils (%) (Auto) 0 % (0-3) Basophils (%) (Auto) 0 % (0-3) Neutrophils # (Auto) 3.6 x10^3/uL (1.8-7.7) Lymphocytes # (Auto) 0.8 x10^3/uL (1.0-4.8) Monocytes # (Auto) 0.2 x10^3/uL (0.0-1.1) Eosinophils # (Auto) 0.0 x10^3/uL (0.0-0.7) Basophils # (Auto) 0.0 x10^3/uL (0.0-0.2) Absolute Reticulocyte Count 0.012 x10^6/uL (0.020-0.120) Percent Reticulocyte Count 0.4 % (0.5-2.3) Immature Reticulocyte Fraction 0.21 (0.20-0.60) Sodium Level 140 mmol/L (136-145) 141 mmol/L (136-145) Potassium Level 2.9 mmol/L (3.5-5.1) 3.4 mmol/L (3.5-5.1) Chloride Level 107 mmol/L (98-107) 109 mmol/L (98-107) Carbon Dioxide Level 20 mmol/L (21-32) 21 mmol/L (21-32) Anion Gap 13 (6-14) 11 (6-14) Blood Urea Nitrogen 21 mg/dL (8-26) 18 mg/dL (8-26) Creatinine 1.3 mg/dL (0.7-1.3) 1.1 mg/dL (0.7-1.3) Estimated GFR (Cockcroft-Gault) 58.2 70.6 BUN/Creatinine Ratio 16 (6-20) Glucose Level 98 mg/dL (70-99) 146 mg/dL (70-99) Calcium Level 7.8 mg/dL (8.5-10.1) 7.4 mg/dL (8.5-10.1) Iron Level 88 ug/dL (65-175) Total Iron Binding Capacity 89 ug/dL (250-450) Iron Saturation 99 % (15-34) Total Bilirubin 1.1 mg/dL (0.2-1.0) Aspartate Amino Transf (AST/SGOT) 44 U/L (15-37) Alanine Aminotransferase (ALT/SGPT) 21 U/L (16-63) Alkaline Phosphatase 121 U/L (46-116) Total Protein 5.3 g/dL (6.4-8.2) Albumin 1.8 g/dL (3.4-5.0) Albumin/Globulin Ratio 0.5 (1.0-1.7) Procalcitonin 0.38 ng/mL (0.00-0.10) Urine Collection Type Unknown Urine Color Yellow Urine Clarity Clear Urine pH 6.0 (<5.0-8.0) Urine Specific [place] >=1.030 (1.000-1.030) Urine Protein Negative mg/dL (NEG-TRACE) Urine Glucose (UA) Negative mg/dL (NEG) Urine Ketones (Stick) Trace mg/dL (NEG) Urine Blood Negative (NEG) Urine Nitrite Negative (NEG) Urine Bilirubin Small (NEG) Urine Urobilinogen Dipstick 1.0 mg/dL (0.2 mg/dL) Urine Leukocyte Esterase Small (NEG) Urine RBC 0 /HPF (0-2) Urine WBC 1-4 /HPF (0-4) Urine Renal Epithelial Cells Few /LPF Urine Bacteria 0 /HPF (0-FEW) Urine Mucus Slight /LPF Urine Opiates Screen Pos (NEG) Urine Methadone Screen Neg (NEG) Urine Barbiturates Neg (NEG) Urine Phencyclidine Screen Neg (NEG) Urine Amphetamine/Methamphetamine Neg (NEG) Urine Benzodiazepines Screen Pos (NEG) Urine Cocaine Screen Neg (NEG) Urine Cannabinoids Screen Neg (NEG) Urine Ethyl Alcohol Neg (NEG) Troponin I Quantitative 0.038 ng/mL (0.000-0.055) Objective: Assessment: Leukocytosis and lactic acidosis resolved source likely GI Nausea and vomiting resolved Possible aspiration Diarrhea resolved JAQUAN likely dehydration improving Left lower extremity extensive DVT status post mechanical thrombectomy and angioplasty of SFV, CFV, PIV, CIV, 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 stiology, GI following Generalized debility Mild troponin elevation demand ischemia Plan: Plan of Care Cont zosyn for now Maintain aspiration precautions Monitor labs Continue supportive care Discussed with nursing staff KYLAH DOUGLASS MD Apr 26, 2020 11:23
[2020-04-26] MEDS: POTASSIUM CHLORIDE 20MEQ 100 ML IV SCH ×2 (11:45→12:27)
[2020-04-26] MEDS ORDERED: IV NORMAL SALINE 1000ML BAG 1,000 ML IV ONE (15:15)
[2020-04-26 15:28] VITALS: BP 80/56
[2020-04-26 19:00] VITALS: BP 99/58
[2020-04-26 22:53] VITALS: BP 99/60
[2020-04-27] VITALS (11 sets, daily range): BP systolic 87–136; BP diastolic 52–74
[2020-04-27] MEDS: fentaNYL PF VIAL 100 MCG/2 ML VIAL IVP PRN (01:36)
[2020-04-27] MEDS: PIPERACILLIN/TAZOBACTAM 3.375 GM in IV NORMAL SALINE 50ML 50 ML IV SCH (06:09)
[2020-04-27 07:05] LABS: BASO % 0 % (0-3); EOS % 1 % (0-3); LYMPH # 0.5 x10^3/uL (1.0-4.8); LYMPH % 17 % (24-48); MEAN CORPUSCULAR HEMOGLOBIN 27 pg (25-35); MEAN CORPUSCULAR HGB CONC 32 g/dL (31-37); MEAN CORPUSCULAR VOLUME 82 fL (79-100); MONO # 0.1 x10^3/uL (0.0-1.1); MONO % 3 % (0-9); NEUT # 2.4 x10^3/uL (1.8-7.7); NEUT % 80 % (31-73); PLATELET COUNT 88 x10^3/uL (140-400); RED CELL DISTRIBUTION WIDTH 18.1 % (11.5-14.5)
[2020-04-27 07:10] LABS: HEMATOCRIT 18.9 % (39.0-53.0); HEMOGLOBIN 6.1 g/dL (13.0-17.5)
[2020-04-27 07:25] LABS: ALBUMIN 1.4 g/dL (3.4-5.0); ALBUMIN/GLOBULIN RATIO 0.4 (1.0-1.7); CALCIUM 7.5 mg/dL (8.5-10.1); CREATININE 0.8 mg/dL (0.7-1.3); GFR 101.9; POTASSIUM 3.5 mmol/L (3.5-5.1); TOTAL BILIRUBIN 0.6 mg/dL (0.2-1.0); TOTAL PROTEIN 4.6 g/dL (6.4-8.2)
--- NOTE | 2020-04-27 07:47 | PDOC ---
Infectious Disease Note Subjective: Subjective pt sleepy but arousable appears weak does not answer most of the questions on ra d/w RN Vital Signs: Vital Signs Vital Signs Date Time Temp Pulse Resp B/P (MAP) Pulse Ox O2 Delivery O2 Flow Rate FiO2 04/27/20 02:51 97.7 91 18 136/54 (81) 94 Room Air 97.7 04/26/20 12:29 2.0 Physical Exam: PHYSICAL EXAM swelling with erythema left calf and foot., slow to resolve Medications: Inpatient Meds: Current Medications Medications (Trade) Dose Ordered Sig/Edilma Start Time Stop Time Status Last Admin Dose Admin Acetaminophen (Tylenol Supp) 650 mg PRN Q4HRS PRN 04/24/20 08:30 Acetaminophen (Tylenol) 650 mg PRN Q4HRS PRN 04/22/20 23:45 04/23/20 23:44 DC Acetaminophen/ Hydrocodone Bitart (Lortab 5/325) 1 tab PRN Q6HRS PRN 04/25/20 05:00 04/25/20 15:59 1 TAB Albuterol Sulfate (Ventolin Neb Soln) 2.5 mg PRN Q4HRS PRN 04/24/20 08:30 Amino Acids/ Glycerin/ Electrolytes 1,000 ml @ 80 mls/hr [id number] 04/23/20 16:45 04/26/20 20:38 80 MLS/HR Amlodipine Besylate (Norvasc) 10 mg DAILY 04/25/20 09:00 04/25/20 08:56 10 MG Apixaban (Eliquis) 2.5 mg DAILY 04/24/20 09:00 UNV Aspirin (Ecotrin) 81 mg [id number] 04/25/20 08:00 04/26/20 08:46 81 MG Diphenhydramine HCl (Benadryl) 25 mg 1X ONCE 04/22/20 22:45 04/22/20 22:46 DC 04/22/20 22:39 25 MG Docusate Sodium (Colace) 100 mg PRN BID PRN 04/24/20 08:30 04/25/20 15:59 100 MG Enoxaparin Sodium (Lovenox 60mg Syringe) 60 mg Q12HR 04/23/20 09:00 04/26/20 20:38 60 MG Fentanyl Citrate (Fentanyl 2ml Vial) 50 mcg PRN Q2HR PRN 04/24/20 18:30 04/27/20 01:36 50 MCG Guaifenesin (Robitussin) 200 mg PRN Q4HRS PRN 04/24/20 08:30 Heparin Sodium (Porcine) (Hep Lock Adult) 500 unit 1X ONCE 04/25/20 15:30 04/25/20 15:31 DC 04/25/20 15:30 500 UNIT Heparin Sodium (Porcine) (Heparin Sodium) 5,000 unit 1X ONCE 04/24/20 15:30 04/24/20 15:37 DC 04/24/20 15:30 5,000 UNIT Heparin Sodium/ Sodium Chloride (HEPARIN for ARTERIAL LINE FLUSH) 1,000 unit 1X ONCE 04/24/20 15:30 04/24/20 15:37 DC 04/24/20 15:30 1,000 UNIT Info (Anti-Coagulation Monitoring By Pharmacy) 1 each PRN DAILY PRN 04/25/20 13:00 04/25/20 13:07 1 EACH Iodixanol (Visipaque 320) 50 ml STK-MED ONCE 04/24/20 15:48 04/24/20 15:48 DC Lactobacillus Rhamnosus (Culturelle) 1 cap BID 04/25/20 21:00 04/26/20 20:38 1 CAP Lidocaine HCl (Buffered Lidocaine 1%) 6 ml 1X ONCE 04/24/20 15:30 04/24/20 15:37 DC 04/24/20 15:30 4 ML Lidocaine/ Epinephrine (LIDOCAINE 1%-EPI 1:100,000 Multi-Dose) 20 ml 1X ONCE 04/24/20 15:30 04/24/20 15:37 DC 04/24/20 15:30 9 ML Lidocaine/ Epinephrine (LIDOCAINE 2%-EPI 1:100,000 multi-dose) 20 ml 1X ONCE 04/25/20 15:30 04/25/20 15:31 DC 04/25/20 15:30 7 ML Lorazepam (Ativan Inj) 1 mg PRN Q4HRS PRN 04/22/20 23:45 04/27/20 01:38 1 MG Lorazepam (Ativan) 0.5 mg PRN Q8HRS PRN 04/25/20 05:00 04/25/20 05:26 0.5 MG Midazolam HCl (Versed) 1 mg 1X ONCE 04/24/20 15:30 04/24/20 15:37 DC 04/24/20 15:30 1 MG Morphine Sulfate (Morphine Sulfate) 4 mg PRN Q2HR PRN 04/22/20 23:45 04/23/20 23:44 DC 04/23/20 18:03 4 MG Ondansetron HCl (Zofran) 4 mg PRN Q4HRS PRN 04/24/20 08:30 04/25/20 16:15 4 MG Pantoprazole Sodium (PROTONIX VIAL for IV PUSH) 40 mg BIDAC 04/23/20 16:30 04/26/20 16:16 40 MG Piperacillin Sod/ Tazobactam Sod 3.375 gm/Sodium Chloride 50 ml @ 100 mls/hr Q6HRS 04/24/20 08:30 04/27/20 06:09 100 MLS/HR Potassium Chloride/Sodium Chloride 1,000 ml @ 125 mls/hr Q8H ONCE 04/22/20 21:45 04/23/20 05:44 DC 04/22/20 21:46 125 MLS/HR Potassium Chloride/Water 100 ml @ 100 mls/hr Q1H 04/26/20 11:00 04/26/20 12:59 DC 04/26/20 12:27 100 MLS/HR Potassium Chloride (Klor-Con) 30 meq 1X ONCE 04/25/20 14:00 04/25/20 14:01 DC 04/25/20 15:59 30 MEQ Prochlorperazine Edisylate (Compazine) 10 mg 1X ONCE 04/22/20 21:45 04/22/20 21:46 DC 04/22/20 21:45 10 MG Ringer's Solution 1,000 ml @ 125 mls/hr 1X ONCE 04/22/20 23:45 04/23/20 07:44 DC 04/23/20 03:29 125 MLS/HR Sodium Monofluorophosphate (Fleet Adult) 133 ml PRN DAILY PRN 04/24/20 08:30 Sodium Chloride 1,000 ml @ 1,000 mls/hr 1X ONCE 04/26/20 15:15 04/26/20 16:14 DC 04/26/20 15:15 1,000 MLS/HR Sodium Chloride (Normal Saline Flush) 3 ml QSHIFT PRN 04/24/20 08:30 Labs: Lab Laboratory Tests Test 04/27/20 06:35 White Blood Count 3.0 x10^3/uL (4.0-11.0) Red Blood Count 2.30 x10^6/uL (4.30-5.70) Hemoglobin 6.1 g/dL (13.0-17.5) Hematocrit 18.9 % (39.0-53.0) Mean Corpuscular Volume 82 fL (79-100) Mean Corpuscular Hemoglobin 27 pg (25-35) Mean Corpuscular Hemoglobin Concent 32 g/dL (31-37) Red Cell Distribution Width 18.1 % (11.5-14.5) Platelet Count 88 x10^3/uL (140-400) Neutrophils (%) (Auto) 80 % (31-73) Lymphocytes (%) (Auto) 17 % (24-48) Monocytes (%) (Auto) 3 % (0-9) Eosinophils (%) (Auto) 1 % (0-3) Basophils (%) (Auto) 0 % (0-3) Neutrophils # (Auto) 2.4 x10^3/uL (1.8-7.7) Lymphocytes # (Auto) 0.5 x10^3/uL (1.0-4.8) Monocytes # (Auto) 0.1 x10^3/uL (0.0-1.1) Eosinophils # (Auto) 0.0 x10^3/uL (0.0-0.7) Basophils # (Auto) 0.0 x10^3/uL (0.0-0.2) Sodium Level 144 mmol/L (136-145) Potassium Level 3.5 mmol/L (3.5-5.1) Chloride Level 114 mmol/L (98-107) Carbon Dioxide Level 21 mmol/L (21-32) Anion Gap 9 (6-14) Blood Urea Nitrogen 13 mg/dL (8-26) Creatinine 0.8 mg/dL (0.7-1.3) Estimated GFR (Cockcroft-Gault) 101.9 BUN/Creatinine Ratio 16 (6-20) Glucose Level 118 mg/dL (70-99) Calcium Level 7.5 mg/dL (8.5-10.1) Total Bilirubin 0.6 mg/dL (0.2-1.0) Aspartate Amino Transf (AST/SGOT) 27 U/L (15-37) Alanine Aminotransferase (ALT/SGPT) 14 U/L (16-63) Alkaline Phosphatase 81 U/L (46-116) Total Protein 4.6 g/dL (6.4-8.2) Albumin 1.4 g/dL (3.4-5.0) Albumin/Globulin Ratio 0.4 (1.0-1.7) Objective: Assessment: Anemia source ? 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 stiology, GI following Generalized debility Mild troponin elevation demand ischemia Plan: Plan of Care DC Zosyn Monitor off antibiotics Awaiting PRBC today Maintain aspiration precautions Monitor labs Continue supportive care Prognosis poor Discussed with nursing staff KYLAH DOUGLASS MD Apr 27, 2020 07:47
[2020-04-27] MEDS: PANTOPRAZOLE IV PUSH 40 MG VIAL. IVP SCH ×2 (08:58→17:29)
[2020-04-27] MEDS: LACTOBACILLUS RHAMNOSUS GG 1 CAPSULE. PO SCH ×2 (08:58→20:40)
[2020-04-27] MEDS: ASPIRIN ENTERIC COATED 81 MG TABLET.DR. PO SCH (08:59)
[2020-04-27] MEDS: AMINO AC 3%/ELECTROLYTE/GLYCER 1,000 ML IV SCH ×2 (08:59→20:39)
--- NOTE | 2020-04-27 10:57 | PDOC ---
PROGRESS NOTES Date of Service: DATE: 04/27/20 TIME: 10:57 Chief Complaint Chief Complaint VTE Prophylaxis Ordered VTE Prophylaxis Devices: Yes VTE Pharmacological Prophylaxi: Yes Assessment/Plan Assessment/Plan Dehydration abnormal weight loss Person under investigation for COVID-19 Nausea vomiting and diarrhea Extensive occlusive left lower extremity deep venous thrombosis. DIABETES Bipolar disease Leukocytosis, ACD, JAQUAN, lactic acidosis, elevated LFTs, mildly elevated troponin H/o GERD and pancreatic pseudocysts s/p cystogastrostomy @ [facility], weight loss Pelvic lymphadenopathy, uncertain clinical significance, possibly reactive. Diffuse left lower extremity subcutaneous edema. No loculated fluid collection to suggest abscess although evaluation is degraded without IV contrast. pancytopenia PLAN ADMITTED GI CONSULT Consult IR for left leg venous thrombolysis. 04-24 nephrology consult vascular surgery following oncology consult ID CONSULT D/C iv zosyn pathology for peripheral smear BLOOD CULTURE Preliminary NO GROWTH AFTER 2 DAYS Procedure Performed -14 pod# 3 LLE venogram, thrombectomy, Iliac vein stent, tunnelled central line 04-27 APPEARS WEAK, APPETITE FAIR HGB 6.1 TRANSFUSE 1 UNIT PRBC'S D/W RN, oncolohy consult pending History of Present Illness History of Present Illness Patient is a 50 year old male brought in by EMS for nausea, vomiting and diarrhea since 04-22 . His emesis has been brown but denies any blood. Diarrhea is nonbloody nonbilious. Denies any fevers. Was tested for Covid but has not had it yet. Denies any positive contacts but knows people he has not been in contact who tested positive. Denies any fevers, cough. Has a history of pancreatitis and stents placed. vascular surgery and IR are following w/ plans for thrombectomy 04-24 . he might have been off Eliquis due to vomiting. GI-[facility], had gallstone pancreatitis in 09/2019 - s/p cholecystectomy then. The next month was admitted w/ strep bacteremia/resp failure - imaging at that time noted pancreatic pseudocysts. Since then, apparently underwent endoscopic drainage of pseudocyst w/ stent and necrosectomy at . History is challenging - he's vomiting and not feeling well. Review of Systems: Review of Systems: All other systems within normal limits except for as noted in the HPI Vitals Vitals Vital Signs Date Time Temp Pulse Resp B/P (MAP) Pulse Ox O2 Delivery O2 Flow Rate FiO2 04/27/20 09:00 90 97/52 04/27/20 07:59 97.1 20 97 Room Air 97.1 04/26/20 12:29 2.0 Physical Exam Physical Exam swelling with erythema left calf and foot., slow to resolve General: Alert, Oriented X3, Cooperative, No acute distress Heart: Normal S1, Normal S2, No murmurs Lungs: Clear Abdomen: Normal bowel sounds, Soft, No tenderness Extremities: No cyanosis, No edema, Other (edema left foot and lower leg, calf) Skin: No rashes Labs LABS Laboratory Tests Test 04/27/20 06:35 White Blood Count 3.0 x10^3/uL (4.0-11.0) Red Blood Count 2.30 x10^6/uL (4.30-5.70) Hemoglobin 6.1 g/dL (13.0-17.5) Hematocrit 18.9 % (39.0-53.0) Mean Corpuscular Volume 82 fL (79-100) Mean Corpuscular Hemoglobin 27 pg (25-35) Mean Corpuscular Hemoglobin Concent 32 g/dL (31-37) Red Cell Distribution Width 18.1 % (11.5-14.5) Platelet Count 88 x10^3/uL (140-400) Neutrophils (%) (Auto) 80 % (31-73) Lymphocytes (%) (Auto) 17 % (24-48) Monocytes (%) (Auto) 3 % (0-9) Eosinophils (%) (Auto) 1 % (0-3) Basophils (%) (Auto) 0 % (0-3) Neutrophils # (Auto) 2.4 x10^3/uL (1.8-7.7) Lymphocytes # (Auto) 0.5 x10^3/uL (1.0-4.8) Monocytes # (Auto) 0.1 x10^3/uL (0.0-1.1) Eosinophils # (Auto) 0.0 x10^3/uL (0.0-0.7) Basophils # (Auto) 0.0 x10^3/uL (0.0-0.2) Sodium Level 144 mmol/L (136-145) Potassium Level 3.5 mmol/L (3.5-5.1) Chloride Level 114 mmol/L (98-107) Carbon Dioxide Level 21 mmol/L (21-32) Anion Gap 9 (6-14) Blood Urea Nitrogen 13 mg/dL (8-26) Creatinine 0.8 mg/dL (0.7-1.3) Estimated GFR (Cockcroft-Gault) 101.9 BUN/Creatinine Ratio 16 (6-20) Glucose Level 118 mg/dL (70-99) Calcium Level 7.5 mg/dL (8.5-10.1) Total Bilirubin 0.6 mg/dL (0.2-1.0) Aspartate Amino Transf (AST/SGOT) 27 U/L (15-37) Alanine Aminotransferase (ALT/SGPT) 14 U/L (16-63) Alkaline Phosphatase 81 U/L (46-116) Total Protein 4.6 g/dL (6.4-8.2) Albumin 1.4 g/dL (3.4-5.0) Albumin/Globulin Ratio 0.4 (1.0-1.7) Assessment and Plan Assessmemt and Plan Problems Medical Problems: (1) Dehydration Status: Acute (2) Nausea vomiting and diarrhea Status: Acute (3) Person under investigation for COVID-19 Status: Acute Comment Review of Relevant I have reviewed the following items blaze (where applicable) has been applied. Labs Laboratory Tests Test 04/25/20 11:51 04/25/20 12:30 04/25/20 13:20 04/26/20 06:30 Direct Bilirubin 0.7 mg/dL (0.0-0.2) White Blood Count 4.5 x10^3/uL (4.0-11.0) Red Blood Count 2.84 x10^6/uL (4.30-5.70) Hemoglobin 7.4 g/dL (13.0-17.5) Hematocrit 23.0 % (39.0-53.0) Mean Corpuscular Volume 81 fL (79-100) Mean Corpuscular Hemoglobin 26 pg (25-35) Mean Corpuscular Hemoglobin Concent 32 g/dL (31-37) Red Cell Distribution Width 17.6 % (11.5-14.5) Platelet Count 146 x10^3/uL (140-400) Neutrophils (%) (Auto) 79 % (31-73) Lymphocytes (%) (Auto) 18 % (24-48) Monocytes (%) (Auto) 3 % (0-9) Eosinophils (%) (Auto) 0 % (0-3) Basophils (%) (Auto) 0 % (0-3) Neutrophils # (Auto) 3.6 x10^3/uL (1.8-7.7) Lymphocytes # (Auto) 0.8 x10^3/uL (1.0-4.8) Monocytes # (Auto) 0.2 x10^3/uL (0.0-1.1) Eosinophils # (Auto) 0.0 x10^3/uL (0.0-0.7) Basophils # (Auto) 0.0 x10^3/uL (0.0-0.2) Absolute Reticulocyte Count 0.012 x10^6/uL (0.020-0.120) Percent Reticulocyte Count 0.4 % (0.5-2.3) Immature Reticulocyte Fraction 0.21 (0.20-0.60) Sodium Level 140 mmol/L (136-145) 141 mmol/L (136-145) Potassium Level 2.9 mmol/L (3.5-5.1) 3.4 mmol/L (3.5-5.1) Chloride Level 107 mmol/L (98-107) 109 mmol/L (98-107) Carbon Dioxide Level 20 mmol/L (21-32) 21 mmol/L (21-32) Anion Gap 13 (6-14) 11 (6-14) Blood Urea Nitrogen 21 mg/dL (8-26) 18 mg/dL (8-26) Creatinine 1.3 mg/dL (0.7-1.3) 1.1 mg/dL (0.7-1.3) Estimated GFR (Cockcroft-Gault) 58.2 70.6 BUN/Creatinine Ratio 16 (6-20) Glucose Level 98 mg/dL (70-99) 146 mg/dL (70-99) Calcium Level 7.8 mg/dL (8.5-10.1) 7.4 mg/dL (8.5-10.1) Iron Level 88 ug/dL (65-175) Total Iron Binding Capacity 89 ug/dL (250-450) Iron Saturation 99 % (15-34) Total Bilirubin 1.1 mg/dL (0.2-1.0) Aspartate Amino Transf (AST/SGOT) 44 U/L (15-37) Alanine Aminotransferase (ALT/SGPT) 21 U/L (16-63) Alkaline Phosphatase 121 U/L (46-116) Total Protein 5.3 g/dL (6.4-8.2) Albumin 1.8 g/dL (3.4-5.0) Albumin/Globulin Ratio 0.5 (1.0-1.7) Procalcitonin 0.38 ng/mL (0.00-0.10) Urine Collection Type Unknown Urine Color Yellow Urine Clarity Clear Urine pH 6.0 (<5.0-8.0) Urine Specific [place] >=1.030 (1.000-1.030) Urine Protein Negative mg/dL (NEG-TRACE) Urine Glucose (UA) Negative mg/dL (NEG) Urine Ketones (Stick) Trace mg/dL (NEG) Urine Blood Negative (NEG) Urine Nitrite Negative (NEG) Urine Bilirubin Small (NEG) Urine Urobilinogen Dipstick 1.0 mg/dL (0.2 mg/dL) Urine Leukocyte Esterase Small (NEG) Urine RBC 0 /HPF (0-2) Urine WBC 1-4 /HPF (0-4) Urine Renal Epithelial Cells Few /LPF Urine Bacteria 0 /HPF (0-FEW) Urine Mucus Slight /LPF Urine Opiates Screen Pos (NEG) Urine Methadone Screen Neg (NEG) Urine Barbiturates Neg (NEG) Urine Phencyclidine Screen Neg (NEG) Urine Amphetamine/Methamphetamine Neg (NEG) Urine Benzodiazepines Screen Pos (NEG) Urine Cocaine Screen Neg (NEG) Urine Cannabinoids Screen Neg (NEG) Urine Ethyl Alcohol Neg (NEG) Troponin I Quantitative 0.038 ng/mL (0.000-0.055) Test 04/27/20 06:35 White Blood Count 3.0 x10^3/uL (4.0-11.0) Red Blood Count 2.30 x10^6/uL (4.30-5.70) Hemoglobin 6.1 g/dL (13.0-17.5) Hematocrit 18.9 % (39.0-53.0) Mean Corpuscular Volume 82 fL (79-100) Mean Corpuscular Hemoglobin 27 pg (25-35) Mean Corpuscular Hemoglobin Concent 32 g/dL (31-37) Red Cell Distribution Width 18.1 % (11.5-14.5) Platelet Count 88 x10^3/uL (140-400) Neutrophils (%) (Auto) 80 % (31-73) Lymphocytes (%) (Auto) 17 % (24-48) Monocytes (%) (Auto) 3 % (0-9) Eosinophils (%) (Auto) 1 % (0-3) Basophils (%) (Auto) 0 % (0-3) Neutrophils # (Auto) 2.4 x10^3/uL (1.8-7.7) Lymphocytes # (Auto) 0.5 x10^3/uL (1.0-4.8) Monocytes # (Auto) 0.1 x10^3/uL (0.0-1.1) Eosinophils # (Auto) 0.0 x10^3/uL (0.0-0.7) Basophils # (Auto) 0.0 x10^3/uL (0.0-0.2) Sodium Level 144 mmol/L (136-145) Potassium Level 3.5 mmol/L (3.5-5.1) Chloride Level 114 mmol/L (98-107) Carbon Dioxide Level 21 mmol/L (21-32) Anion Gap 9 (6-14) Blood Urea Nitrogen 13 mg/dL (8-26) Creatinine 0.8 mg/dL (0.7-1.3) Estimated GFR (Cockcroft-Gault) 101.9 BUN/Creatinine Ratio 16 (6-20) Glucose Level 118 mg/dL (70-99) Calcium Level 7.5 mg/dL (8.5-10.1) Total Bilirubin 0.6 mg/dL (0.2-1.0) Aspartate Amino Transf (AST/SGOT) 27 U/L (15-37) Alanine Aminotransferase (ALT/SGPT) 14 U/L (16-63) Alkaline Phosphatase 81 U/L (46-116) Total Protein 4.6 g/dL (6.4-8.2) Albumin 1.4 g/dL (3.4-5.0) Albumin/Globulin Ratio 0.4 (1.0-1.7) Laboratory Tests Test 04/27/20 06:35 White Blood Count 3.0 x10^3/uL (4.0-11.0) Red Blood Count 2.30 x10^6/uL (4.30-5.70) Hemoglobin 6.1 g/dL (13.0-17.5) Hematocrit 18.9 % (39.0-53.0) Mean Corpuscular Volume 82 fL (79-100) Mean Corpuscular Hemoglobin 27 pg (25-35) Mean Corpuscular Hemoglobin Concent 32 g/dL (31-37) Red Cell Distribution Width 18.1 % (11.5-14.5) Platelet Count 88 x10^3/uL (140-400) Neutrophils (%) (Auto) 80 % (31-73) Lymphocytes (%) (Auto) 17 % (24-48) Monocytes (%) (Auto) 3 % (0-9) Eosinophils (%) (Auto) 1 % (0-3) Basophils (%) (Auto) 0 % (0-3) Neutrophils # (Auto) 2.4 x10^3/uL (1.8-7.7) Lymphocytes # (Auto) 0.5 x10^3/uL (1.0-4.8) Monocytes # (Auto) 0.1 x10^3/uL (0.0-1.1) Eosinophils # (Auto) 0.0 x10^3/uL (0.0-0.7) Basophils # (Auto) 0.0 x10^3/uL (0.0-0.2) Sodium Level 144 mmol/L (136-145) Potassium Level 3.5 mmol/L (3.5-5.1) Chloride Level 114 mmol/L (98-107) Carbon Dioxide Level 21 mmol/L (21-32) Anion Gap 9 (6-14) Blood Urea Nitrogen 13 mg/dL (8-26) Creatinine 0.8 mg/dL (0.7-1.3) Estimated GFR (Cockcroft-Gault) 101.9 BUN/Creatinine Ratio 16 (6-20) Glucose Level 118 mg/dL (70-99) Calcium Level 7.5 mg/dL (8.5-10.1) Total Bilirubin 0.6 mg/dL (0.2-1.0) Aspartate Amino Transf (AST/SGOT) 27 U/L (15-37) Alanine Aminotransferase (ALT/SGPT) 14 U/L (16-63) Alkaline Phosphatase 81 U/L (46-116) Total Protein 4.6 g/dL (6.4-8.2) Albumin 1.4 g/dL (3.4-5.0) Albumin/Globulin Ratio 0.4 (1.0-1.7) Microbiology 04/25/20 Urine Culture - Final, Complete 04/24/20 Blood Culture - Preliminary, Resulted NO GROWTH AFTER 3 DAYS Medications Current Medications Ringer's Solution 500 ml @ 500 mls/hr 1X ONCE IV Last administered on 04/22/20at 19:15; Start 04/22/20 at 19:15; Stop 04/22/20 at 20:14; Status DC Ondansetron HCl (Zofran) 4 mg 1X ONCE IVP Last administered on 04/22/20at 20:33; Start 04/22/20 at 19:15; Stop 04/22/20 at 19:17; Status DC Lorazepam (Ativan Inj) 2 mg 1X ONCE IVP Last administered on 04/22/20at 20:36; Start 04/22/20 at 20:30; Stop 04/22/20 at 20:31; Status DC Prochlorperazine Edisylate (Compazine) 10 mg 1X ONCE IV Last administered on 04/22/20at 21:45; Start 04/22/20 at 21:45; Stop 04/22/20 at 21:46; Status DC Sodium Chloride 1,000 ml @ 1,000 mls/hr 1X ONCE IV Last administered on 04/22/20at 21:52; Start 04/22/20 at 21:45; Stop 04/22/20 at 22:44; Status DC Potassium Chloride/Sodium Chloride 1,000 ml @ 125 mls/hr Q8H ONCE IV Last administered on 04/22/20at 21:46; Start 04/22/20 at 21:45; Stop 04/23/20 at 05:44; Status DC Diphenhydramine HCl (Benadryl) 25 mg 1X ONCE IVP Last administered on 04/22/20at 22:39; Start 04/22/20 at 22:45; Stop 04/22/20 at 22:46; Status DC Ondansetron HCl (Zofran) 4 mg PRN Q8HRS PRN IV NAUSEA/VOMITING Last ad ministered on 04/22/20at 23:46; Start 04/22/20 at 23:45; Stop 04/23/20 at 02:11; Status DC Morphine Sulfate (Morphine Sulfate) 4 mg PRN Q2HR PRN IV PAIN Last administered on 04/23/20at 18:03; Start 04/22/20 at 23:45; Stop 04/23/20 at 23:44; Status DC Fentanyl Citrate (Fentanyl 2ml Vial) 50 mcg PRN Q1HR PRN IV PAIN; Start 04/22/20 at 23:45; Stop 04/23/20 at 23:44; Status DC Acetaminophen (Tylenol) 650 mg PRN Q4HRS PRN PO FEVER > 100.3'F; Start 04/22/20 at 23:45; Stop 04/23/20 at 23:44; Status DC Ringer's Solution 1,000 ml @ 125 mls/hr 1X ONCE IV Last administered on 04/23/20at 03:29; Start 04/22/20 at 23:45; Stop 04/23/20 at 07:44; Status DC Potassium Chloride/Water 100 ml @ 50 mls/hr 1X ONCE IV Last administered on 04/23/20at 00:04; Start 04/22/20 at 23:45; Stop 04/23/20 at 01:44; Status DC Lorazepam (Ativan Inj) 1 mg PRN Q4HRS PRN IVP ANXIETY / AGITATION Last administered on 04/27/20at 01:38; Start 04/22/20 at 23:45 Ondansetron HCl (Zofran) 4 mg PRN Q4HRS PRN IVP NAUSEA/VOMITING Last administered on 04/24/20at 01:53; Start 04/23/20 at 02:15; Stop 04/24/20 at 10:07; Status DC Enoxaparin Sodium (Lovenox 60mg Syringe) 60 mg Q12HR SQ Last administered on 04/26/20at 20:38; Start 04/23/20 at 09:00 Apixaban (Eliquis) 2.5 mg DAILY PO ; Start 04/24/20 at 09:00; Status UNV Pantoprazole Sodium (PROTONIX VIAL for IV PUSH) 40 mg DAILYAC IVP ; Start 04/23/20 at 14:30; Stop 04/23/20 at 14:33; Status DC Pantoprazole Sodium (PROTONIX VIAL for IV PUSH) 40 mg BIDAC IVP Last administered on 04/27/20at 08:58; Start 04/23/20 at 16:30 Amino Acids/ Glycerin/ Electrolytes 1,000 ml @ 80 mls/hr [id number] IV Last administered on 04/27/20at 08:59; Start 04/23/20 at 16:45 Potassium Chloride/Water 100 ml @ 50 mls/hr 1X ONCE IV Last administered on 04/23/20at 19:39; Start 04/23/20 at 18:30; Stop 04/23/20 at 20:29; Status DC Sodium Chloride 1,000 ml @ 250 mls/hr 1X ONCE IV Last administered on 1at 09:08; Start 04/24/20 at 08:30; Stop 04/24/20 at 12:29; Status DC Sodium Chloride (Normal Saline Flush) 3 ml QSHIFT PRN IV AFTER MEDS AND BLOOD DRAWS; Start 04/24/20 at 08:30 Ondansetron HCl (Zofran) 4 mg PRN Q4HRS PRN IV NAUSEA/VOMITING Last admini stered on 04/25/20at 16:15; Start 04/24/20 at 08:30 Acetaminophen (Tylenol Supp) 650 mg PRN Q4HRS PRN DC TEMP OVER 100.4F OR MILD PAIN; Start 04/24/20 at 08:30 Sodium Monofluorophosphate (Fleet Adult) 133 ml PRN DAILY PRN DC CONSTIPATION; Start 04/24/20 at 08:30 Docusate Sodium (Colace) 100 mg PRN BID PRN PO HARD STOOLS Last administered on 04/25/20at 15:59; Start 04/24/20 at 08:30 Albuterol Sulfate (Ventolin Neb Soln) 2.5 mg PRN Q4HRS PRN NEB SHORTNESS OF BREATH; Start 04/24/20 at 08:30 Guaifenesin (Robitussin) 200 mg PRN Q4HRS PRN PO COUGH; Start 04/24/20 at 08:30 Piperacillin Sod/ Tazobactam Sod 3.375 gm/Sodium Chloride 50 ml @ 100 mls/hr Q6HRS IV Last administered on 04/27/20at 06:09; Start 04/24/20 at 08:30; Stop 04/27/20 at 08:14; Status DC Potassium Chloride/Water 100 ml @ 100 mls/hr Q1H IV ; Start 04/24/20 at 09:00; Stop 04/24/20 at 12:59; Status DC Lidocaine HCl (Buffered Lidocaine 1%) 3 ml STK-MED ONCE .ROUTE ; Start 04/24/20 at 13:36; Stop 04/24/20 at 13:37; Status DC Iodixanol (Visipaque 320) 100 ml STK-MED ONCE .ROUTE ; Start 04/24/20 at 13:36; Stop 04/24/20 at 13:37; Status DC Heparin Sodium/ Sodium Chloride 500 ml @ As Directed STK-MED ONCE .ROUTE ; Start 04/24/20 at 13:37; Stop 04/24/20 at 13:37; Status DC Midazolam HCl (Versed) 2 mg STK-MED ONCE .ROUTE ; Start 04/24/20 at 13:42; Stop 04/24/20 at 13:43; Status DC Fentanyl Citrate (Fentanyl 2ml Vial) 100 mcg STK-MED ONCE .ROUTE ; Start 04/24/20 at 13:42; Stop 04/24/20 at 13:43; Status DC Heparin Sodium (Porcine) (Heparin Sodium) 10,000 unit STK-MED ONCE .ROUTE ; Start 04/24/20 at 13:43; Stop 04/24/20 at 13:43; Status DC Lidocaine/ Epinephrine (LIDOCAINE 2%-EPI 1:100,000 multi-dose) 20 ml STK-MED ONCE .ROUTE ; Start 04/24/20 at 14:33; Stop 04/24/20 at 14:33; Status DC Heparin Sodium/ Sodium Chloride 500 ml @ As Directed STK-MED ONCE .ROUTE ; Start 04/24/20 at 15:28; Stop 04/24/20 at 15:28; Status DC Heparin Sodium/ Sodium Chloride (HEPARIN for ARTERIAL LINE FLUSH) 1,000 unit 1X ONCE IART Last administered on 04/24/20at 15:30; Start 04/24/20 at 15:30; Stop 04/24/20 at 15:37; Status DC Heparin Sodium/ Sodium Chloride (HEPARIN for ARTERIAL LINE FLUSH) 1,000 unit 1X ONCE IART Last administered on 04/24/20at 15:30; Start 04/24/20 at 15:30; Stop 04/24/20 at 15:37; Status DC Lidocaine HCl (Buffered Lidocaine 1%) 6 ml 1X ONCE IJ Last administered on 04/24/20at 15:30; Start 04/24/20 at 15:30; Stop 04/24/20 at 15:37; Status DC Midazolam HCl (Versed) 1 mg 1X ONCE IV Last administered on 04/24/20at 15:30; Start 04/24/20 at 15:30; Stop 04/24/20 at 15:37; Status DC Fentanyl Citrate (Fentanyl 2ml Vial) 50 mcg 1X ONCE IV Last administered on 04/24/20at 15:30; Start 04/24/20 at 15:30; Stop 04/24/20 at 15:37; Status DC Heparin Sodium (Porcine) (Heparin Sodium) 5,000 unit 1X ONCE IV Last admi nistered on 04/24/20at 15:30; Start 04/24/20 at 15:30; Stop 04/24/20 at 15:37; Status DC Lidocaine/ Epinephrine (LIDOCAINE 1%-EPI 1:100,000 Multi-Dose) 20 ml 1X ONCE INJ Last administered on 04/24/20at 15:30; Start 04/24/20 at 15:30; Stop 04/24/20 at 15:37; Status DC Iodixanol (Visipaque 320) 100 ml 1X ONCE IART Last administered on 04/24/20at 15:30; Start 04/24/20 at 15:30; Stop 04/24/20 at 15:37; Status DC Aspirin (Ecotrin) 81 mg [id number] PO Last administered on 04/27/20at 08:59; Start 04/25/20 at 08:00 Iodixanol (Visipaque 320) 50 ml STK-MED ONCE .ROUTE ; Start 04/24/20 at 15:48; Stop 04/24/20 at 15:48; Status DC Fentanyl Citrate (Fentanyl 2ml Vial) 50 mcg PRN Q2HR PRN IVP PAIN Last administered on 04/27/20at 01:36; Start 04/24/20 at 18:30 Lorazepam (Ativan) 0.5 mg PRN Q8HRS PRN PO ANXIETY / AGITATION Last administered on 04/25/20at 05:26; Start 04/25/20 at 05:00 Acetaminophen/ Hydrocodone Bitart (Lortab 5/325) 1 tab PRN Q6HRS PRN PO MODERATE PAIN 4-6 Last administered on 04/25/20at 15:59; Start 04/25/20 at 05:00 Amlodipine Besylate (Norvasc) 10 mg DAILY PO Last administered on 04/25/20at 08:56; Start 04/25/20 at 09:00 Info (Anti-Coagulation Monitoring By Pharmacy) 1 each PRN DAILY PRN MC SEE COMMENTS Last administered on 04/25/20at 13:07; Start 04/25/20 at 13:00 Lactobacillus Rhamnosus (Culturelle) 1 cap BID PO Last administered on 04/27/20at 08:58; Start 04/25/20 at 21:00 Potassium Chloride (Klor-Con) 30 meq 1X ONCE PO Last administered on 04/25/20at 15:59; Start 04/25/20 at 14:00; Stop 04/25/20 at 14:01; Status DC Lidocaine/ Epinephrine (LIDOCAINE 2%-EPI 1:100,000 multi-dose) 20 ml STK-MED ONCE .ROUTE ; Start 04/25/20 at 14:44; Stop 04/25/20 at 14:44; Status DC Heparin Sodium (Porcine) (Hep Lock Adult) 500 unit STK-MED ONCE IVP ; Start 04/25/20 at 14:44; Stop 04/25/20 at 14:44; Status DC Lidocaine/ Epinephrine (LIDOCAINE 2%-EPI 1:100,000 multi-dose) 20 ml 1X ONCE IJ Last administered on 04/25/20at 15:30; Start 04/25/20 at 15:30; Stop 04/25/20 at 15:31; Status DC Heparin Sodium (Porcine) (Hep Lock Adult) 500 unit 1X ONCE IVP Last administered on 04/25/20at 15:30; Start 04/25/20 at 15:30; Stop 04/25/20 at 15:31; Status DC Potassium Chloride/Water 100 ml @ 100 mls/hr Q1H IV Last administered on 04/25/20at 19:13; Start 04/25/20 at 16:30; Stop 04/25/20 at 19:29; Status DC Potassium Chloride/Water 100 ml @ 100 mls/hr Q1H IV Last administered on 04/26/20at 12:27; Start 04/26/20 at 11:00; Stop 04/26/20 at 12:59; Status DC Sodium Chloride 1,000 ml @ 1,000 mls/hr 1X ONCE IV Last administered on at 15:15; Start 04/26/20 at 15:15; Stop 04/26/20 at 16:14; Status DC Active Scripts Active Proair Hfa (Albuterol Sulfate) 8.5 Gm Hfa.aer.ad 2.5 Mg NEB PRN Q4HRS PRN 14 Days Reported Percocet 7.5-325 Mg Tablet (Oxycodone/Acetaminophen) 1 Each Tablet 1 Tab PO PRN Q6HRS PRN Zofran (Ondansetron Hcl) 4 Mg Tablet 1 Tab PO Q6HRS Eliquis (Apixaban) 2.5 Mg Tablet Unknown Dose PO UNK Lidocaine PATCH (Lidocaine) 1 Each Adh..patch 1 Each TP DAILY REMOVE AFTER 12 HOURS Clonazepam 1 Mg Tablet 1 Mg PO BID [place] Carbonate 300 Mg Tablet 1 Tab PO BID Zanaflex (Tizanidine Hcl) 4 Mg Capsule 1 Cap PO TID PRN Vitals/I & O Vital Sign - Last 24 Hours 04/26/20 04/26/20 04/26/20 04/26/20 11:08 12:29 15:28 19:00 Temp 98.8 98.7 97.8 98.8 98.7 97.8 Pulse 86 78 84 Resp 16 18 16 B/P (MAP) 92/58 (69) 80/56 (64) 99/58 (72) Pulse Ox 99 99 91 94 O2 Delivery Room Air Room Air Room Air Room Air O2 Flow Rate 2.0 04/26/20 04/27/20 04/27/20 04/27/20 22:53 01:36 02:06 02:51 Temp 97.8 97.7 97.8 97.7 Pulse 86 91 Resp 17 18 B/P (MAP) 99/60 (73) 136/54 (81) Pulse Ox 95 94 O2 Delivery Room Air Room Air Room Air Room Air 04/27/20 04/27/20 07:59 09:00 Temp 97.1 97.1 Pulse 90 90 Resp 20 B/P (MAP) 97/52 (67) 97/52 Pulse Ox 97 O2 Delivery Room Air Intake and Output 04/26/20 04/26/20 04/27/20 15:00 23:00 07:00 Intake Total 0 ml 0 ml 0 ml Output Total 1 ml Balance 0 ml -1 ml 0 ml Nutrition Consultation Dietary Evaluation: Recommendations by RD: Dietary education by RD, PPN/TPN Comments: REC continue PPN at this time REC ADA/Cardiac diet when able to advance with Glucerna supplements D/c PPN when po intake is >50% of meals Expected Outcomes/Goals: to meet >75% est nutr needs via po intake Interpretation of weight loss: >10% in 6 months Malnutrition Findings: Food and Nutrition Intake (Sev: <50% est energy req 5days Body Fat Depletion (Non Severe: Mild Depletion Weight Status: Appropriate Justicifation of Admission Dx: Justifications for Admission: Justification of Admission Dx: Yes Comminuty Aquired Pneumonia: Hemodynamic Instability Acute Renal Failure: RF Can't Be Managed Outpt Sepsis: Altered Mental Status DKA: DKA JAMAL MORRIS MD Apr 27, 2020 10:57
[2020-04-27 16:22] LABS: HEMATOCRIT 21.2 % (39.0-53.0)
[2020-04-27] MEDS ORDERED: ONDANSETRON ODT 4 MG TAB.RAPDIS. PO PRN (16:45)
[2020-04-27] MEDS ORDERED: ALBUTEROL SULFATE 2.5 MG/3 ML NEBU. NEB PRN (16:45)
[2020-04-27] MEDS: LIDOCAINE (700MG/PATCH) PATCH. TP SCH (17:33)
[2020-04-27] MEDS: ALBUMIN HUMAN 25% 100 ML IV SCH (20:39)
[2020-04-27] MEDS: APIXABAN 2.5 MG TABLET. PO SCH (20:40)
[2020-04-27] MEDS: clonazePAM 0.5 MG TABLET PO SCH (20:40)
[2020-04-27] MEDS: PATCH REMOVAL. MC SCH (20:41)
[2020-04-28] VITALS (11 sets, daily range): BP systolic 93–155; BP diastolic 52–102
[2020-04-28] MEDS: HYDROcodone/APAP 5/325MG 1 TAB TABLET PO PRN ×2 (05:02→22:18)
[2020-04-28] MEDS: AMINO AC 3%/ELECTROLYTE/GLYCER 1,000 ML IV SCH ×2 (05:04→13:54)
[2020-04-28 08:20] LABS: BASO % 0 % (0-3); EOS % 2 % (0-3); HEMATOCRIT 22.9 % (39.0-53.0); HEMOGLOBIN 7.6 g/dL (13.0-17.5); LYMPH # 0.5 x10^3/uL (1.0-4.8); LYMPH % 22 % (24-48); MEAN CORPUSCULAR HEMOGLOBIN 28 pg (25-35); MEAN CORPUSCULAR HGB CONC 33 g/dL (31-37); MEAN CORPUSCULAR VOLUME 86 fL (79-100); MONO # 0.1 x10^3/uL (0.0-1.1); MONO % 3 % (0-9); NEUT # 1.7 x10^3/uL (1.8-7.7); NEUT % 74 % (31-73); PLATELET COUNT 75 x10^3/uL (140-400); RED BLOOD COUNT 2.67 x10^6/uL (4.30-5.70); RED CELL DISTRIBUTION WIDTH 16.3 % (11.5-14.5); WHITE BLOOD COUNT 2.3 x10^3/uL (4.0-11.0)
[2020-04-28 08:37] LABS: ALBUMIN 1.6 g/dL (3.4-5.0); ALBUMIN/GLOBULIN RATIO 0.6 (1.0-1.7); CALCIUM 7.3 mg/dL (8.5-10.1); CREATININE 0.6 mg/dL (0.7-1.3); POTASSIUM 3.1 mmol/L (3.5-5.1); TOTAL BILIRUBIN 0.7 mg/dL (0.2-1.0); TOTAL PROTEIN 4.4 g/dL (6.4-8.2)
[2020-04-28] MEDS: LACTOBACILLUS RHAMNOSUS GG 1 CAPSULE. PO SCH ×2 (09:41→22:17)
[2020-04-28] MEDS: ASPIRIN ENTERIC COATED 81 MG TABLET.DR. PO SCH (09:41)
[2020-04-28] MEDS: LIDOCAINE (700MG/PATCH) PATCH. TP SCH (09:41)
[2020-04-28] MEDS: APIXABAN 2.5 MG TABLET. PO SCH ×2 (09:41→22:17)
[2020-04-28] MEDS: PANTOPRAZOLE IV PUSH 40 MG VIAL. IVP SCH (09:42)
[2020-04-28] MEDS: clonazePAM 0.5 MG TABLET PO SCH ×2 (09:43→22:17)
--- NOTE | 2020-04-28 10:03 | PDOC ---
Infectious Disease Note Subjective: Subjective pt sleepy but arousable appears weak denies any complaints s/p one unit prbc on ra d/w RN Vital Signs: Vital Signs Vital Signs Date Time Temp Pulse Resp B/P (MAP) Pulse Ox O2 Delivery O2 Flow Rate FiO2 04/28/20 07:00 98.1 82 18 155/62 (93) 95 Room Air 98.1 04/28/20 06:17 2.0 Physical Exam: PHYSICAL EXAM General: Thin cachectic male on room air in no acute distress HEENT: Atraumatic, EOMI, Mucous membr. moist/pink Lungs: Clear to auscultation Heart: Normal S1, Normal S2, No murmurs Abdomen: Normal bowel sounds, Soft, No tenderness Extremities: No cyanosis,Lower ext edema, no warmth Skin: No generalized rashes MSK; generalized weakness Neuro:sleepy but arousable moves all 4 extremities Medications: Inpatient Meds: Current Medications Medications (Trade) Dose Ordered Sig/Edilma Start Time Stop Time Status Last Admin Dose Admin Acetaminophen (Tylenol Supp) 650 mg PRN Q4HRS PRN 04/24/20 08:30 Acetaminophen (Tylenol) 650 mg PRN Q4HRS PRN 04/22/20 23:45 04/23/20 23:44 DC Acetaminophen/ Hydrocodone Bitart (Lortab 5/325) 1 tab PRN Q6HRS PRN 04/25/20 05:00 04/28/20 05:02 1 TAB Albumin Human 100 ml @ 100 mls/hr BID 04/27/20 21:00 04/29/20 11:00 04/27/20 20:39 100 MLS/HR Albuterol Sulfate (Ventolin Neb Soln) 2.5 mg PRN Q4HRS PRN 04/27/20 16:45 UNV Amino Acids/ Glycerin/ Electrolytes 1,000 ml @ 100 mls/hr Q10H 04/23/20 16:45 04/28/20 05:04 100 MLS/HR Amlodipine Besylate (Norvasc) 10 mg DAILY 04/25/20 09:00 04/25/20 08:56 10 MG Apixaban (Eliquis) 2.5 mg BID 04/27/20 21:00 04/27/20 20:40 2.5 MG Aspirin (Ecotrin) 81 mg DAILYWBKFT 04/25/20 08:00 04/27/20 08:59 81 MG Clonazepam (KlonoPIN) 1 mg BID 04/27/20 21:00 04/27/20 20:40 1 MG Diphenhydramine HCl (Benadryl) 25 mg 1X ONCE 04/22/20 22:45 04/22/20 22:46 DC 04/22/20 22:39 25 MG Docusate Sodium (Colace) 100 mg PRN BID PRN 04/24/20 08:30 04/25/20 15:59 100 MG Enoxaparin Sodium (Lovenox 60mg Syringe) 60 mg Q12HR 04/23/20 09:00 04/27/20 16:30 DC 04/26/20 20:38 60 MG Fentanyl Citrate (Fentanyl 2ml Vial) 50 mcg PRN Q2HR PRN 04/24/20 18:30 04/27/20 01:36 50 MCG Guaifenesin (Robitussin) 200 mg PRN Q4HRS PRN 04/24/20 08:30 Heparin Sodium (Porcine) (Hep Lock Adult) 500 unit 1X ONCE 04/25/20 15:30 04/25/20 15:31 DC 04/25/20 15:30 500 UNIT Heparin Sodium (Porcine) (Heparin Sodium) 5,000 unit 1X ONCE 04/24/20 15:30 04/24/20 15:37 DC 04/24/20 15:30 5,000 UNIT Heparin Sodium/ Sodium Chloride (HEPARIN for ARTERIAL LINE FLUSH) 1,000 unit 1X ONCE 04/24/20 15:30 04/24/20 15:37 DC 04/24/20 15:30 1,000 UNIT Info (Anti-Coagulation Monitoring By Pharmacy) 1 each PRN DAILY PRN 04/25/20 13:00 04/25/20 13:07 1 EACH Iodixanol (Visipaque 320) 50 ml STK-MED ONCE 04/24/20 15:48 04/24/20 15:48 DC Lactobacillus Rhamnosus (Culturelle) 1 cap BID 04/25/20 21:00 04/27/20 20:40 1 CAP Lidocaine (Lidoderm) 1 patch DAILY 04/27/20 17:00 04/27/20 17:33 1 PATCH Lidocaine HCl (Buffered Lidocaine 1%) 6 ml 1X ONCE 04/24/20 15:30 04/24/20 15:37 DC 04/24/20 15:30 4 ML Lidocaine/ Epinephrine (LIDOCAINE 1%-EPI 1:100,000 Multi-Dose) 20 ml 1X ONCE 04/24/20 15:30 04/24/20 15:37 DC 04/24/20 15:30 9 ML Lidocaine/ Epinephrine (LIDOCAINE 2%-EPI 1:100,000 multi-dose) 20 ml 1X ONCE 04/25/20 15:30 04/25/20 15:31 DC 04/25/20 15:30 7 ML Lorazepam (Ativan Inj) 1 mg PRN Q4HRS PRN 04/22/20 23:45 04/27/20 01:38 1 MG Lorazepam (Ativan) 0.5 mg PRN Q8HRS PRN 04/25/20 05:00 04/25/20 05:26 0.5 MG Midazolam HCl (Versed) 1 mg 1X ONCE 04/24/20 15:30 04/24/20 15:37 DC 04/24/20 15:30 1 MG Miscellaneous (Lidoderm Patch Removal) 1 ea QHS 04/27/20 21:00 04/27/20 20:41 1 EA Morphine Sulfate (Morphine Sulfate) 4 mg PRN Q2HR PRN 04/22/20 23:45 04/23/20 23:44 DC 04/23/20 18:03 4 MG Ondansetron HCl (Zofran Odt) 4 mg PRN Q6HRS PRN 04/27/20 16:45 Ondansetron HCl (Zofran) 4 mg PRN Q4HRS PRN 04/24/20 08:30 04/25/20 16:15 4 MG Oxycodone/ Acetaminophen (Percocet 7.5/ 325) 1 tab PRN Q6HRS PRN 04/27/20 16:45 Pantoprazole Sodium (PROTONIX VIAL for IV PUSH) 40 mg BIDAC 04/23/20 16:30 04/27/20 17:29 40 MG Piperacillin Sod/ Tazobactam Sod 3.375 gm/Sodium Chloride 50 ml @ 100 mls/hr Q6HRS 04/24/20 08:30 04/27/20 08:14 DC 04/27/20 06:09 100 MLS/HR Potassium Chloride/Sodium Chloride 1,000 ml @ 125 mls/hr Q8H ONCE 04/22/20 21:45 04/23/20 05:44 DC 04/22/20 21:46 125 MLS/HR Potassium Chloride/Water 100 ml @ 100 mls/hr Q1H 04/26/20 11:00 04/26/20 12:59 DC 04/26/20 12:27 100 MLS/HR Potassium Chloride (Klor-Con) 30 meq 1X ONCE 04/25/20 14:00 04/25/20 14:01 DC 04/25/20 15:59 30 MEQ Prochlorperazine Edisylate (Compazine) 10 mg 1X ONCE 04/22/20 21:45 04/22/20 21:46 DC 04/22/20 21:45 10 MG Ringer's Solution 1,000 ml @ 125 mls/hr 1X ONCE 04/22/20 23:45 04/23/20 07:44 DC 04/23/20 03:29 125 MLS/HR Sodium Monofluorophosphate (Fleet Adult) 133 ml PRN DAILY PRN 04/24/20 08:30 Sodium Chloride 1,000 ml @ 1,000 mls/hr 1X ONCE 04/26/20 15:15 04/26/20 16:14 DC 04/26/20 15:15 1,000 MLS/HR Sodium Chloride (Normal Saline Flush) 3 ml QSHIFT PRN 04/24/20 08:30 Labs: Lab Laboratory Tests Test 04/27/20 16:10 04/28/20 07:50 Hemoglobin 7.0 g/dL (13.0-17.5) 7.6 g/dL (13.0-17.5) Hematocrit 21.2 % (39.0-53.0) 22.9 % (39.0-53.0) Mean Corpuscular Hemoglobin Concent 33 g/dL (31-37) 33 g/dL (31-37) White Blood Count 2.3 x10^3/uL (4.0-11.0) Red Blood Count 2.67 x10^6/uL (4.30-5.70) Mean Corpuscular Volume 86 fL (79-100) Mean Corpuscular Hemoglobin 28 pg (25-35) Red Cell Distribution Width 16.3 % (11.5-14.5) Platelet Count 75 x10^3/uL (140-400) Neutrophils (%) (Auto) 74 % (31-73) Lymphocytes (%) (Auto) 22 % (24-48) Monocytes (%) (Auto) 3 % (0-9) Eosinophils (%) (Auto) 2 % (0-3) Basophils (%) (Auto) 0 % (0-3) Neutrophils # (Auto) 1.7 x10^3/uL (1.8-7.7) Lymphocytes # (Auto) 0.5 x10^3/uL (1.0-4.8) Monocytes # (Auto) 0.1 x10^3/uL (0.0-1.1) Eosinophils # (Auto) 0.0 x10^3/uL (0.0-0.7) Basophils # (Auto) 0.0 x10^3/uL (0.0-0.2) Sodium Level 144 mmol/L (136-145) Potassium Level 3.1 mmol/L (3.5-5.1) Chloride Level 113 mmol/L (98-107) Carbon Dioxide Level 21 mmol/L (21-32) Anion Gap 10 (6-14) Blood Urea Nitrogen 11 mg/dL (8-26) Creatinine 0.6 mg/dL (0.7-1.3) Estimated GFR (Cockcroft-Gault) 142.0 BUN/Creatinine Ratio 18 (6-20) Glucose Level 118 mg/dL (70-99) Calcium Level 7.3 mg/dL (8.5-10.1) Total Bilirubin 0.7 mg/dL (0.2-1.0) Aspartate Amino Transf (AST/SGOT) 22 U/L (15-37) Alanine Aminotransferase (ALT/SGPT) 12 U/L (16-63) Alkaline Phosphatase 70 U/L (46-116) Total Protein 4.4 g/dL (6.4-8.2) Albumin 1.6 g/dL (3.4-5.0) Albumin/Globulin Ratio 0.6 (1.0-1.7) Micro CT left lower extremity impression: 1. Diffuse left lower extremity subcutaneous edema. No loculated fluid collection to suggest abscess although evaluation is degraded without IV contrast. If persistent clinical concern, follow-up ultrasound can further evaluate. 2. Left total knee arthroplasty. Urine culture negative Blood culture negative Objective: Assessment: Pancytopenia etiology unclear at this time Leukocytosis and lactic acidosis resolved source likely GI;resolved, now leucopenia Nausea and vomiting resolved Diarrhea resolved JAQUAN likely dehydration improving Left lower extremity extensive DVT status post mechanical thrombectomy and angioplasty of SFV, CFV, PIV, CIV, 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 stiology, GI following Generalized debility Mild troponin elevation demand ischemia Plan: Plan of Care Monitor off antibiotics at this time s/p PRBCs obtain CMV,EBV,PARVO ab, cmv ,ebv anne pcr not available at this center Maintain aspiration precautions consider hematology consult Monitor labs Continue supportive care Prognosis poor Discussed with nursing staff KYLAH DOUGLASS MD Apr 28, 2020 10:03
--- NOTE | 2020-04-28 10:29 | PDOC ---
Date of Service: DATE: 04/28/20 TIME: 10:24 Subjective: Subjective: Says feeling "pretty good." Asks is he could have another room - can't say why except wants to have visitors. Says tolerating clears - not sure if he wants to eat more but maybe. Denies bleeding, denies pain. Objective: Objective: D/w nurse - no bleeding or vomiting. Vital Signs: Vital Signs Date Time Temp Pulse Resp B/P (MAP) Pulse Ox O2 Delivery O2 Flow Rate FiO2 04/28/20 09:42 82 155/62 04/28/20 07:00 98.1 18 95 Room Air 98.1 04/28/20 06:17 2.0 Labs: Laboratory Tests Test 04/27/20 16:10 04/28/20 07:50 Hemoglobin 7.0 g/dL 7.6 g/dL Hematocrit 21.2 % 22.9 % Mean Corpuscular Hemoglobin Concent 33 g/dL 33 g/dL White Blood Count 2.3 x10^3/uL Red Blood Count 2.67 x10^6/uL Mean Corpuscular Volume 86 fL Mean Corpuscular Hemoglobin 28 pg Red Cell Distribution Width 16.3 % Platelet Count 75 x10^3/uL Neutrophils (%) (Auto) 74 % Lymphocytes (%) (Auto) 22 % Monocytes (%) (Auto) 3 % Eosinophils (%) (Auto) 2 % Basophils (%) (Auto) 0 % Neutrophils # (Auto) 1.7 x10^3/uL Lymphocytes # (Auto) 0.5 x10^3/uL Monocytes # (Auto) 0.1 x10^3/uL Eosinophils # (Auto) 0.0 x10^3/uL Basophils # (Auto) 0.0 x10^3/uL Sodium Level 144 mmol/L Potassium Level 3.1 mmol/L Chloride Level 113 mmol/L Carbon Dioxide Level 21 mmol/L Anion Gap 10 Blood Urea Nitrogen 11 mg/dL Creatinine 0.6 mg/dL Estimated GFR (Cockcroft-Gault) 142.0 BUN/Creatinine Ratio 18 Glucose Level 118 mg/dL Calcium Level 7.3 mg/dL Total Bilirubin 0.7 mg/dL Aspartate Amino Transf (AST/SGOT) 22 U/L Alanine Aminotransferase (ALT/SGPT) 12 U/L Alkaline Phosphatase 70 U/L Total Protein 4.4 g/dL Albumin 1.6 g/dL Albumin/Globulin Ratio 0.6 URINE CULTURE Final Final No Growth on 04/26/20 at 1306 Imaging: LE CT Impression: 1. Diffuse left lower extremity subcutaneous edema. No loculated fluid collection to suggest abscess although evaluation is degraded without IV contrast. If persistent clinical concern, follow-up ultrasound can further evaluate. 2. Left total knee arthroplasty. PE: GEN: chronically ill LUNGS: CTAB HEART: RRR ABD: soft, non-tender NEURO/PSYCH: probably some confusion A/P: S/p LLE venogram, thrombectomy, Iliac vein stent, tunnelled central line 04/24/20 - on Eliquis and ASA N/v - better, taking some clears - h/o weight loss Pancytopenia - required pRBC x 2 units, no obvious bleeding H/o GERD and pancreatic pseudocysts s/p cystogastrostomy @ [facility] COVID negative 04/23 -- Not a great historian. Try full liquids. PO PPI. Justicifation of Admission Dx: Justifications for Admission: Justification of Admission Dx: Yes Comminuty Aquired Pneumonia: Hemodynamic Instability Acute Renal Failure: RF Can't Be Managed Outpt Sepsis: Altered Mental Status DKA: DKA ADAN PEREZ Apr 28, 2020 10:29
--- NOTE | 2020-04-28 13:30 | NUR ---
SW following for discharge planning. Spoke with RN and reviewed chart. Discharge plan remains home, self-care when stable. Pt will resume out-patient PT/OT. SANDOVAL met with pt and pt's mother today, 04/28. Pt on room air, IV pain medication, full liquid diet. PT recommendation is SNU. Pt and family refusing SNU and HH as well as palliative care in the home. Pt lives with his but sometimes stays with his mother. Continue to work toward advancing diet. SW available as needed.
[2020-04-28] MEDS: ALBUMIN HUMAN 25% 100 ML IV SCH ×2 (13:37→22:18)
--- NOTE | 2020-04-28 14:00 | PDOC ---
[employer] PROGRESS NOTE Date of Service DOS: DATE: 04/28/20 TIME: 13:58 Chief Complaint Chief Complaint A/P: Dehydration abnormal weight loss Person under investigation for COVID-19 Nausea vomiting and diarrhea Extensive occlusive left lower extremity deep venous thrombosis. DIABETES Bipolar disease Leukocytosis, ACD, JAQUAN, lactic acidosis, elevated LFTs, mildly elevated troponin H/o GERD and pancreatic pseudocysts s/p cystogastrostomy @ [facility], weight loss Pelvic lymphadenopathy, uncertain clinical significance, possibly reactive. Diffuse left lower extremity subcutaneous edema. No loculated fluid collection to suggest abscess although evaluation is degraded without IV contrast. pancytopenia Recurrent pancreatitis PLAN ADMITTED GI CONSULT Consult IR for left leg venous thrombolysis. 04-24 nephrology consult vascular surgery following oncology consult ID CONSULT D/C iv zosyn pathology for peripheral smear BLOOD CULTURE Preliminary NO GROWTH AFTER 2 DAYS D/W RN, oncolohy consult pending History of Present Illness History of Present Illness Mr Reyes is a 50 year old male brought in by EMS for nausea, vomiting and diarrhea since 04-22 . His emesis has been brown but denies any blood. Diarrhea is nonbloody nonbilious. Denies any fevers. Was tested for Covid but has not had it yet. Denies any positive contacts but knows people he has not been in contact who tested positive. Denies any fevers, cough. Has a history of pancreatitis and stents placed. He was started on empiric Zosyn. He had mild troponin elevation. For left lower extremity extensive DVT extending to IVC he underwent mechanical thrombectomy and angioplasty of SFV, CFV, EIV and CIV GI-carnes, had gallstone pancreatitis in 09/2019 - s/p cholecystectomy then. The next month was admitted w/ strep bacteremia/resp failure - imaging at that time noted pancreatic pseudocysts. Since then, apparently underwent endoscopic drainage of pseudocyst w/ stent and necrosectomy at . 04/24: LLE venogram, thrombectomy, Iliac vein stent, tunnelled central line 04-27: APPEARS WEAK, APPETITE FAIR HGB 6.1 TRANSFUSE 1 UNIT PRBC'S He has also been noted per his mother, bedside of a prior CVA noted at [facility]. He has lost over 100#, from 240# over a year ago, now with multiple hospitalizations with pancreatitis over the past year. Hb to 7.6 post- transfusion, WBC 2.3, K 3.1 today. Not eating much. Mother requesting parenteral nutrition. Vitals/I&O Vitals/I&O: Vital Signs Date Time Temp Pulse Resp B/P (MAP) Pulse Ox O2 Delivery O2 Flow Rate FiO2 04/28/20 11:00 97.9 86 18 101/66 (78) 98 Room Air 97.9 04/28/20 06:17 2.0 I & O 04/27/20 04/27/20 04/28/20 15:00 23:00 07:00 Intake Total 415 ml 150 ml Balance 415 ml 150 ml Physical Exam Physical Exam: General: Thin cachectic male on room air in no acute distress HEENT: Atraumatic, EOMI, Mucous membr. moist/pink Lungs: Clear to auscultation Heart: Normal S1, Normal S2, No murmurs Abdomen: Normal bowel sounds, Soft, No tenderness Extremities: No cyanosis,Lower ext edema, no warmth Skin: No generalized rashes MSK; generalized weakness Neuro:sleepy but arousable moves all 4 extremities General: Alert, Oriented X3, Cooperative, No acute distress Heart: Normal S1, Normal S2, No murmurs Lungs: Clear Abdomen: Normal bowel sounds, Soft, No tenderness Extremities: No cyanosis, No edema, Other (edema left foot and lower leg, calf) Skin: No rashes Labs Labs: Laboratory Tests Test 04/27/20 16:10 04/28/20 07:50 Hemoglobin 7.0 g/dL (13.0-17.5) 7.6 g/dL (13.0-17.5) Hematocrit 21.2 % (39.0-53.0) 22.9 % (39.0-53.0) Mean Corpuscular Hemoglobin Concent 33 g/dL (31-37) 33 g/dL (31-37) White Blood Count 2.3 x10^3/uL (4.0-11.0) Red Blood Count 2.67 x10^6/uL (4.30-5.70) Mean Corpuscular Volume 86 fL (79-100) Mean Corpuscular Hemoglobin 28 pg (25-35) Red Cell Distribution Width 16.3 % (11.5-14.5) Platelet Count 75 x10^3/uL (140-400) Neutrophils (%) (Auto) 74 % (31-73) Lymphocytes (%) (Auto) 22 % (24-48) Monocytes (%) (Auto) 3 % (0-9) Eosinophils (%) (Auto) 2 % (0-3) Basophils (%) (Auto) 0 % (0-3) Neutrophils # (Auto) 1.7 x10^3/uL (1.8-7.7) Lymphocytes # (Auto) 0.5 x10^3/uL (1.0-4.8) Monocytes # (Auto) 0.1 x10^3/uL (0.0-1.1) Eosinophils # (Auto) 0.0 x10^3/uL (0.0-0.7) Basophils # (Auto) 0.0 x10^3/uL (0.0-0.2) Sodium Level 144 mmol/L (136-145) Potassium Level 3.1 mmol/L (3.5-5.1) Chloride Level 113 mmol/L (98-107) Carbon Dioxide Level 21 mmol/L (21-32) Anion Gap 10 (6-14) Blood Urea Nitrogen 11 mg/dL (8-26) Creatinine 0.6 mg/dL (0.7-1.3) Estimated GFR (Cockcroft-Gault) 142.0 BUN/Creatinine Ratio 18 (6-20) Glucose Level 118 mg/dL (70-99) Calcium Level 7.3 mg/dL (8.5-10.1) Total Bilirubin 0.7 mg/dL (0.2-1.0) Aspartate Amino Transf (AST/SGOT) 22 U/L (15-37) Alanine Aminotransferase (ALT/SGPT) 12 U/L (16-63) Alkaline Phosphatase 70 U/L (46-116) Total Protein 4.4 g/dL (6.4-8.2) Albumin 1.6 g/dL (3.4-5.0) Albumin/Globulin Ratio 0.6 (1.0-1.7) Assessment and Plan Assessmemt and Plan Problems Medical Problems: (1) Dehydration Status: Acute (2) Nausea vomiting and diarrhea Status: Acute (3) Person under investigation for COVID-19 Status: Acute Comment Review of Relevant I have reviewed the following items blaze (where applicable) has been applied. Medications: Current Medications Medications (Trade) Dose Ordered Sig/Edilma Route PRN Reason Start Time Stop Time Status Last Admin Dose Admin Apixaban (Eliquis) 2.5 mg BID PO 04/27/20 21:00 04/28/20 09:41 Lidocaine (Lidoderm) 1 patch DAILY TP 04/27/20 17:00 04/28/20 09:41 Clonazepam (KlonoPIN) 1 mg BID PO 04/27/20 21:00 04/28/20 09:43 Albumin Human 100 ml @ 100 mls/hr BID IV 04/27/20 21:00 04/29/20 11:00 04/28/20 13:37 Miscellaneous (Lidoderm Patch Removal) 1 ea QHS 04/27/20 21:00 04/27/20 20:41 Justifications for Admission General Conditions Poss tachycardia?: Yes Justification for admission: Patient has tachycardia (> 100 beats per minute) which is not readily corrected by appropriate treatment within 12 to 24 hours. dehydration Other Justification MILAD BUSBY MD Apr 28, 2020 14:00
[2020-04-28 14:15] LABS: IMMUNOGLOBULIN A 378 mg/dL (90-386); IMMUNOGLOBULIN G 1128 mg/dL (603-1613); IMMUNOGLOBULIN M 99 mg/dL (20-172)
[2020-04-28] MEDS ORDERED: POTASSIUM BICARB 20 MEQ EFFERVESCENT TABLET. PO ONE (14:45)
[2020-04-28] MEDS: TPN PER PHARMACY MC PRN (15:08)
--- NOTE | 2020-04-28 15:13 | NUR ---
Pharmacy TPN Dosing Note S: FLORECITAYVONNEFLORECITAMarcelinaANASTACIA Edouard is a 50 year old M Currently receiving Central Continuous TPN started 04/28/20 B:Pertinent PMH: PANCREATIC CANCER/WEIGHT LOST Height: 5 feet, 7 inches Weight: 61.2 kg Current diet: PPN LABS: Sodium: 144 Potassium: 3.1 Chloride: 113 Calcium: Corrected Calcium: Magnesium: CO2: 21 SCr: 0.6 Glucose: 118 Albumin: 1.6 AST: 22 ALT: 12 TPN FORMULA: TPN TYPE: Central Continuous AMINO ACIDS: 60 gm DEXTROSE: 195 gm LIPIDS: 20 gm SODIUM CHLORIDE: mEq SODIUM ACETATE: 70 mEq SODIUM PHOSPHATE: mmol POTASSIUM CHLORIDE: 50 mEq POTASSIUM ACETATE: mEq POTASSIUM PHOSPHATE: 13.6 mmol MAGNESIUM: 10 mEq CALCIUM: 10 mEq INSULIN: units MULTIPLE VITAMIN: 5 ml TRACE ELEMENTS: 1 ml(s) TPN PLAN: START HOUSE TPN. BMP/LYTES TOMORROW R: Begin TPN AT 63ML/HR Will monitor electrolytes, glucose, and tolerance to TPN. AXEL NATARAJAN [facility], 04/28/20 [id number]
[2020-04-28] MEDS: PATCH REMOVAL. MC SCH (20:45)
[2020-04-28] MEDS ORDERED: AMINO ACID IV SCH (22:00)
[2020-04-28] MEDS ORDERED: DEXTROSE 70% IV SCH (22:00)
[2020-04-28] MEDS ORDERED: TOTAL PARENTERAL NUTRITION IV SCH (22:00)
[2020-04-28] MEDS ORDERED: [UNRECOGNIZED DRUG - OTHER] IV SCH (22:00)
[2020-04-29 03:00] VITALS: BP 106/76
[2020-04-29] MEDS: PANTOPRAZOLE 40 MG TABLET.DR. PO SCH (05:44)
[2020-04-29 06:26] LABS: HEMATOCRIT 21.9 % (39.0-53.0); HEMOGLOBIN 7.2 g/dL (13.0-17.5); RED BLOOD COUNT 2.57 x10^6/uL (4.30-5.70); RED CELL DISTRIBUTION WIDTH 16.2 % (11.5-14.5)
[2020-04-29 06:28] LABS: CALCIUM 7.7 mg/dL (8.5-10.1); CREATININE 0.6 mg/dL (0.7-1.3)
[2020-04-29 06:38] LABS: MAGNESIUM 1.6 mg/dL (1.8-2.4); PHOSPHORUS 1.1 mg/dL (2.6-4.7)
[2020-04-29 07:00] VITALS: BP 105/67
[2020-04-29] MEDS: ALBUMIN HUMAN 25% 100 ML IV SCH (09:02)
[2020-04-29] MEDS: ASPIRIN ENTERIC COATED 81 MG TABLET.DR. PO SCH (09:02)
[2020-04-29] MEDS: APIXABAN 2.5 MG TABLET. PO SCH ×2 (09:03→22:00)
[2020-04-29] MEDS: LIDOCAINE (700MG/PATCH) PATCH. TP SCH (09:03)
[2020-04-29] MEDS: clonazePAM 0.5 MG TABLET PO SCH ×2 (09:03→22:00)
[2020-04-29] MEDS: LACTOBACILLUS RHAMNOSUS GG 1 CAPSULE. PO SCH ×2 (09:04→22:00)
--- NOTE | 2020-04-29 10:01 | PDOC ---
Date of Service: DATE: 04/29/20 TIME: 09:54 Subjective: Subjective: Says someone is going to bring him Halley. Says tolerated liquids yesterday w/o n/v or abd pain. Might be hungry today. Says he had a job interview scheduled for today and is wondering if he needs to cancel it. Says he wants out of here. Objective: Objective: D/w pt's mother w/ Dr. Marrero yesterday afternoon - concerned w/ ongoing n/v, weight loss - wanted to tray advancing diet. Says head was imaged at and CT noted past strokes. Also described several 'scopes done re: pancreatitis, pseudocysts, etc. Now on TPN. Vital Signs: Vital Signs Date Time Temp Pulse Resp B/P (MAP) Pulse Ox O2 Delivery O2 Flow Rate FiO2 04/29/20 09:02 92 105/67 04/29/20 07:00 97.9 18 92 Room Air 97.9 04/28/20 23:18 2.0 Labs: Laboratory Tests Test 04/29/20 05:50 White Blood Count 2.0 x10^3/uL Red Blood Count 2.57 x10^6/uL Hemoglobin 7.2 g/dL Hematocrit 21.9 % Mean Corpuscular Volume 85 fL Mean Corpuscular Hemoglobin 28 pg Mean Corpuscular Hemoglobin Concent 33 g/dL Red Cell Distribution Width 16.2 % Platelet Count 76 x10^3/uL Sodium Level 141 mmol/L Potassium Level 3.0 mmol/L Chloride Level 109 mmol/L Carbon Dioxide Level 23 mmol/L Anion Gap 9 Blood Urea Nitrogen 9 mg/dL Creatinine 0.6 mg/dL Estimated GFR (Cockcroft-Gault) 142.0 Glucose Level 126 mg/dL Calcium Level 7.7 mg/dL Phosphorus Level 1.1 mg/dL Magnesium Level 1.6 mg/dL BLOOD CULTURE Final NO GROWTH AFTER 5 DAYS PE: GEN: chronically ill - breakfast tray untouched LUNGS: CTAB HEART: RRR ABD: non-tender, quiet BS NEURO/PSYCH: alert but forgetful A/P: S/p LLE thrombectomy, iliac vein stent N/v - chronic Pancytopenia H/o GERD and pancreatic pseudocysts s/p cystogastrostomy @ [facility] negative 04/23 -- Discussed w/ nursing yesterday and today - okay w/ GI to [facility]. Justicifation of Admission Dx: Justifications for Admission: Justification of Admission Dx: Yes Comminuty Aquired Pneumonia: Hemodynamic Instability Acute Renal Failure: RF Can't Be Managed Outpt Sepsis: Altered Mental Status DKA: DKA ADAN PEREZ Apr 29, 2020 10:01
--- NOTE | 2020-04-29 10:24 | PDOC ---
Infectious Disease Note Subjective: Subjective pt sleepy but arousable appears weak denies any complaints s/p one unit prbc on ra d/w RN Vital Signs: Vital Signs Vital Signs Date Time Temp Pulse Resp B/P (MAP) Pulse Ox O2 Delivery O2 Flow Rate FiO2 04/29/20 09:02 92 105/67 04/29/20 08:30 Room Air 04/29/20 07:00 97.9 18 92 97.9 04/28/20 23:18 2.0 Physical Exam: PHYSICAL EXAM General: Thin cachectic male on room air in no acute distress HEENT: Atraumatic, EOMI, Mucous membr. moist/pink Lungs: Clear to auscultation Heart: Normal S1, Normal S2, No murmurs Abdomen: Normal bowel sounds, Soft, No tenderness Extremities: No cyanosis,Lower ext edema, no warmth Skin: No generalized rashes MSK; generalized weakness Neuro:sleepy but arousable moves all 4 extremities Medications: Inpatient Meds: Current Medications Medications (Trade) Dose Ordered Sig/Edilma Start Time Stop Time Status Last Admin Dose Admin Acetaminophen (Tylenol Supp) 650 mg PRN Q4HRS PRN 04/24/20 08:30 Acetaminophen (Tylenol) 650 mg PRN Q4HRS PRN 04/22/20 23:45 04/23/20 23:44 DC Acetaminophen/ Hydrocodone Bitart (Lortab 5/325) 1 tab PRN Q6HRS PRN 04/25/20 05:00 04/28/20 22:18 1 TAB Albumin Human 100 ml @ 100 mls/hr BID 04/27/20 21:00 04/29/20 11:00 04/29/20 09:02 100 MLS/HR Albuterol Sulfate (Ventolin Neb Soln) 2.5 mg PRN Q4HRS PRN 04/27/20 16:45 UNV Amino Acids/ Glycerin/ Electrolytes 1,000 ml @ 100 mls/hr Q10H 04/23/20 16:45 04/28/20 21:59 DC 04/28/20 13:54 100 MLS/HR Amlodipine Besylate (Norvasc) 10 mg DAILY 04/25/20 09:00 04/29/20 09:02 10 MG Apixaban (Eliquis) 2.5 mg BID 04/27/20 21:00 04/29/20 09:03 2.5 MG Aspirin (Ecotrin) 81 mg [id number] 04/25/20 08:00 04/29/20 09:02 81 MG Clonazepam (KlonoPIN) 1 mg BID 04/27/20 21:00 04/29/20 09:03 1 MG Diphenhydramine HCl (Benadryl) 25 mg 1X ONCE 04/22/20 22:45 04/22/20 22:46 DC 04/22/20 22:39 25 MG Docusate Sodium (Colace) 100 mg PRN BID PRN 04/24/20 08:30 04/25/20 15:59 100 MG Enoxaparin Sodium (Lovenox 60mg Syringe) 60 mg Q12HR 04/23/20 09:00 04/27/20 16:30 DC 04/26/20 20:38 60 MG Fentanyl Citrate (Fentanyl 2ml Vial) 50 mcg PRN Q2HR PRN 04/24/20 18:30 04/27/20 01:36 50 MCG Guaifenesin (Robitussin) 200 mg PRN Q4HRS PRN 04/24/20 08:30 Heparin Sodium (Porcine) (Hep Lock Adult) 500 unit 1X ONCE 04/25/20 15:30 04/25/20 15:31 DC 04/25/20 15:30 500 UNIT Heparin Sodium (Porcine) (Heparin Sodium) 5,000 unit 1X ONCE 04/24/20 15:30 04/24/20 15:37 DC 04/24/20 15:30 5,000 UNIT Heparin Sodium/ Sodium Chloride (HEPARIN for ARTERIAL LINE FLUSH) 1,000 unit 1X ONCE 04/24/20 15:30 04/24/20 15:37 DC 04/24/20 15:30 1,000 UNIT Info (Anti-Coagulation Monitoring By Pharmacy) 1 each PRN DAILY PRN 04/25/20 13:00 04/25/20 13:07 1 EACH Info (Tpn Per Pharmacy) 1 each PRN DAILY PRN 04/28/20 14:45 04/28/20 15:08 1 EACH Iodixanol (Visipaque 320) 50 ml STK-MED ONCE 04/24/20 15:48 04/24/20 15:48 DC Lactobacillus Rhamnosus (Culturelle) 1 cap BID 04/25/20 21:00 1/19/21 09:04 1 CAP Lidocaine (Lidoderm) 1 patch DAILY 04/27/20 17:00 04/29/20 09:03 1 PATCH Lidocaine HCl (Buffered Lidocaine 1%) 6 ml 1X ONCE 04/24/20 15:30 04/24/20 15:37 DC 04/24/20 15:30 4 ML Lidocaine/ Epinephrine (LIDOCAINE 1%-EPI 1:100,000 Multi-Dose) 20 ml 1X ONCE 04/24/20 15:30 04/24/20 15:37 DC 04/24/20 15:30 9 ML Lidocaine/ Epinephrine (LIDOCAINE 2%-EPI 1:100,000 multi-dose) 20 ml 1X ONCE 04/25/20 15:30 04/25/20 15:31 DC 04/25/20 15:30 7 ML Lorazepam (Ativan Inj) 1 mg PRN Q4HRS PRN 04/22/20 23:45 04/27/20 01:38 1 MG Lorazepam (Ativan) 0.5 mg PRN Q8HRS PRN 04/25/20 05:00 04/25/20 05:26 0.5 MG Midazolam HCl (Versed) 1 mg 1X ONCE 04/24/20 15:30 04/24/20 15:37 DC 04/24/20 15:30 1 MG Miscellaneous (Lidoderm Patch Removal) 1 ea QHS 04/27/20 21:00 04/28/20 20:45 1 EA Morphine Sulfate (Morphine Sulfate) 4 mg PRN Q2HR PRN 04/22/20 23:45 04/23/20 23:44 DC 04/23/20 18:03 4 MG Ondansetron HCl (Zofran Odt) 4 mg PRN Q6HRS PRN 04/27/20 16:45 Ondansetron HCl (Zofran) 4 mg PRN Q4HRS PRN 04/24/20 08:30 04/25/20 16:15 4 MG Oxycodone/ Acetaminophen (Percocet 7.5/ 325) 1 tab PRN Q6HRS PRN 04/27/20 16:45 Pantoprazole Sodium (PROTONIX VIAL for IV PUSH) 40 mg BIDAC 04/23/20 16:30 04/28/20 10:32 DC 04/28/20 09:42 40 MG Pantoprazole Sodium (Protonix) 40 mg DAILYAC 04/29/20 07:30 04/29/20 05:44 40 MG Piperacillin Sod/ Tazobactam Sod 3.375 gm/Sodium Chloride 50 ml @ 100 mls/hr Q6HRS 04/24/20 08:30 04/27/20 08:14 DC 04/27/20 06:09 100 MLS/HR Potassium Bicarbonate (Potassium Effervescent Tablet) 40 meq 1X ONCE 04/28/20 14:45 04/28/20 14:46 DC Potassium Chloride/Sodium Chloride 1,000 ml @ 125 mls/hr Q8H ONCE 04/22/20 21:45 04/23/20 05:44 DC 04/22/20 21:46 125 MLS/HR Potassium Chloride/Water 100 ml @ 100 mls/hr Q1H 04/26/20 11:00 04/26/20 12:59 DC 04/26/20 12:27 100 MLS/HR Potassium Chloride (Klor-Con) 30 meq 1X ONCE 04/25/20 14:00 04/25/20 14:01 DC 04/25/20 15:59 30 MEQ Prochlorperazine Edisylate (Compazine) 10 mg 1X ONCE 04/22/20 21:45 04/22/20 21:46 DC 04/22/20 21:45 10 MG Ringer's Solution 1,000 ml @ 125 mls/hr 1X ONCE 04/22/20 23:45 04/23/20 07:44 DC 04/23/20 03:29 125 MLS/HR Sodium Monofluorophosphate (Fleet Adult) 133 ml PRN DAILY PRN 04/24/20 08:30 Sodium Acetate 70 meq/Potassium Chloride 50 meq/ Potassium Phosphate 13.6 mmol/Magnesium Sulfate 10 meq/ Calcium Gluconate 10 meq/ Multivitamins 5 ml/Zinc/Copper/ Manganese/ Selenium 1 ml/ Total Parenteral Nutrition/Amino Acids/Dextrose/ Fat Emulsion Intravenous 1,512 ml @ 63 mls/hr TPN CONT 04/28/20 22:00 04/29/20 21:59 04/28/20 22:28 63 MLS/HR Sodium Chloride 1,000 ml @ 1,000 mls/hr 1X ONCE 04/26/20 15:15 04/26/20 16:14 DC 04/26/20 15:15 1,000 MLS/HR Sodium Chloride (Normal Saline Flush) 3 ml QSHIFT PRN 04/24/20 08:30 Labs: Lab Laboratory Tests Test 04/29/20 05:50 White Blood Count 2.0 x10^3/uL (4.0-11.0) Red Blood Count 2.57 x10^6/uL (4.30-5.70) Hemoglobin 7.2 g/dL (13.0-17.5) Hematocrit 21.9 % (39.0-53.0) Mean Corpuscular Volume 85 fL (79-100) Mean Corpuscular Hemoglobin 28 pg (25-35) Mean Corpuscular Hemoglobin Concent 33 g/dL (31-37) Red Cell Distribution Width 16.2 % (11.5-14.5) Platelet Count 76 x10^3/uL (140-400) Sodium Level 141 mmol/L (136-145) Potassium Level 3.0 mmol/L (3.5-5.1) Chloride Level 109 mmol/L (98-107) Carbon Dioxide Level 23 mmol/L (21-32) Anion Gap 9 (6-14) Blood Urea Nitrogen 9 mg/dL (8-26) Creatinine 0.6 mg/dL (0.7-1.3) Estimated GFR (Cockcroft-Gault) 142.0 Glucose Level 126 mg/dL (70-99) Calcium Level 7.7 mg/dL (8.5-10.1) Phosphorus Level 1.1 mg/dL (2.6-4.7) Magnesium Level 1.6 mg/dL (1.8-2.4) Micro CT left lower extremity impression: 1. Diffuse left lower extremity subcutaneous edema. No loculated fluid collection to suggest abscess although evaluation is degraded without IV contrast. If persistent clinical concern, follow-up ultrasound can further evaluate. 2. Left total knee arthroplasty. 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 stiology, GI following Generalized debility Mild troponin elevation demand ischemia Plan: Plan of Care Monitor off antibiotics at this time F/U CMV,EBV,PARVO ab, cmv ,ebv anne pcr not available at this center consider hematology consult Maintain aspiration precautions Monitor labs Continue supportive care Prognosis poor Discussed with nursing staff KYLAH DOUGLASS MD Apr 29, 2020 10:24
[2020-04-29 11:00] VITALS: BP_SYST 110; BP_SYST 118; BP_DIAS 52; BP_DIAS 88
--- NOTE | 2020-04-29 11:43 | NUR ---
SW following for discharge planning. Spoke with RN and reviewed chart. Pt started on TPN. Pt remains on room air. Pt and family refusing HH and SNU on discharge. Discharge plan remains home, self-care when stable. Pt at high risk for readmission. SW following.
--- NOTE | 2020-04-29 12:11 | PDOC2 ---
CONSULT Date of Consult Date of Consult DATE: 04/29/20 TIME: 11:52 Reason for Consult Reason for Consult: Abnormal weight loss, possible occult malignancy Referring Physician Referring Physician: Dr. Walter Identification/Chief Complaint Chief Complaint Left leg DVT Source Source: Chart review, Patient History of Present Illness Reason for Visit: Chang Reyes is a 50-year-old male who has been admitted to the hospital for evaluation management of left leg DVT. Patient initially presented to the [facility] emergency room on 04/22/2020 reporting intractable nausea and vomiting and diarrhea. Patient has had prior symptoms before and has had recurrent pancreatitis. He was found to have an extensive left lower extremity DVT on Doppler ultrasound obtained at the time of admission. He also received CT of the abdomen and pelvis at the time of his hospitalization which showed fatty liver but no abdominal masses. Following his hospitalization, he was seen by vascular surgery and underwent mechanical thrombectomy and angioplasty of SFV, CFV, EIV and CIV in interventional radiology on 04/24/2020. Fluoroscopy during thrombectomy showed occlusive thrombus from the popliteal vein to the confluence of the IVC, with a bulky nonocclusive thrombus extending into the IVC. Following mechanical thrombectomy, multifocal angioplasty, and stent placement within the external iliac vein, there was jewish of brisk flow throughout the venous system, with some nonflow limiting residual thrombus within the iliac stent. Of note, the patient has a known history of prior left leg DVT. He underwent venous thrombolysis and iliac vein stenting stenting at [facility] 01/22/2020. Patient reported recent intractable nausea and vomiting and had been unable to take his medications including Eliquis prior to this hospitalization Past Medical History Cardiovascular: HTN, Other (PVD w/ left iliac stent) Pulmonary: Other (ANALIA) GI: GERD Heme/Onc: No pertinent hx Hepatobiliary: Other (pancreatitis ) Psych: No pertinent hx, Bipolar, Other Musculoskeletal: Osteoarthritis, Other (History of bilateral total knee arthroplasty; history of recurrent left knee prosthetic joint infection) Rheumatologic: No pertinent hx Renal/: No pertinent hx Endocrine: Diabetes, Hypothyroidism Dermatology: Other (Multiple bruises both upper and lower extremity no evidence of infection) Past Surgical History Past Surgical History: Tonsillectomy, Other (vasectomy ) Family History Family History: Diabetes, Heart Disease, Hypertension Social History <1 pack per day ALCOHOL: rare Drugs: None Current Problem List Problem List Problems Medical Problems: (1) Dehydration Status: Acute (2) Nausea vomiting and diarrhea Status: Acute (3) Person under investigation for COVID-19 Status: Acute Current Medications Current Medications Current Medications Ringer's Solution 500 ml @ 500 mls/hr 1X ONCE IV Last administered on 04/22/20at 19:15; Start 04/22/20 at 19:15; Stop 04/22/20 at 20:14; Status DC Ondansetron HCl (Zofran) 4 mg 1X ONCE IVP Last administered on 04/22/20at 20:33; Start 04/22/20 at 19:15; Stop 04/22/20 at 19:17; Status DC Lorazepam (Ativan Inj) 2 mg 1X ONCE IVP Last administered on 04/22/20at 20:36; Start 04/22/20 at 20:30; Stop 04/22/20 at 20:31; Status DC Prochlorperazine Edisylate (Compazine) 10 mg 1X ONCE IV Last administered on 04/22/20at 21:45; Start 04/22/20 at 21:45; Stop 04/22/20 at 21:46; Status DC Sodium Chloride 1,000 ml @ 1,000 mls/hr 1X ONCE IV Last administered on 04/22/20at 21:52; Start 04/22/20 at 21:45; Stop 04/22/20 at 22:44; Status DC Potassium Chloride/Sodium Chloride 1,000 ml @ 125 mls/hr Q8H ONCE IV Last administered on 04/22/20at 21:46; Start 04/22/20 at 21:45; Stop 04/23/20 at 05:44; Status DC Diphenhydramine HCl (Benadryl) 25 mg 1X ONCE IVP Last administered on 04/22/20at 22:39; Start 04/22/20 at 22:45; Stop 04/22/20 at 22:46; Status DC Ondansetron HCl (Zofran) 4 mg PRN Q8HRS PRN IV NAUSEA/VOMITING Last administered on 04/22/20at 23:46; Start 04/22/20 at 23:45; Stop 04/23/20 at 02:11; Status DC Morphine Sulfate (Morphine Sulfate) 4 mg PRN Q2HR PRN IV PAIN Last administered on 04/23/20at 18:03; Start 04/22/20 at 23:45; Stop 04/23/20 at 23:44; Status DC Fentanyl Citrate (Fentanyl 2ml Vial) 50 mcg PRN Q1HR PRN IV PAIN; Start 04/22/20 at 23:45; Stop 04/23/20 at 23:44; Status DC Acetaminophen (Tylenol) 650 mg PRN Q4HRS PRN PO FEVER > 100.3'F; Start 04/22/20 at 23:45; Stop 04/23/20 at 23:44; Status DC Ringer's Solution 1,000 ml @ 125 mls/hr 1X ONCE IV Last administered on 04/23/20at 03:29; Start 04/22/20 at 23:45; Stop 04/23/20 at 07:44; Status DC Potassium Chloride/Water 100 ml @ 50 mls/hr 1X ONCE IV Last administered on 04/23/20at 00:04; Start 04/22/20 at 23:45; Stop 04/23/20 at 01:44; Status DC Lorazepam (Ativan Inj) 1 mg PRN Q4HRS PRN IVP ANXIETY / AGITATION Last administered on 04/27/20at 01:38; Start 04/22/20 at 23:45 Ondansetron HCl (Zofran) 4 mg PRN Q4HRS PRN IVP NAUSEA/VOMITING Last administered on 04/24/20at 01:53; Start 04/23/20 at 02:15; Stop 04/24/20 at 10:07; Status DC Enoxaparin Sodium (Lovenox 60mg Syringe) 60 mg Q12HR SQ Last administered on 04/26/20at 20:38; Start 04/23/20 at 09:00; Stop 04/27/20 at 16:30; Status DC Apixaban (Eliquis) 2.5 mg DAILY PO ; Start 04/24/20 at 09:00; Status UNV Pantoprazole Sodium (PROTONIX VIAL for IV PUSH) 40 mg DAILYAC IVP ; Start 04/23/20 at 14:30; Stop 04/23/20 at 14:33; Status DC Pantoprazole Sodium (PROTONIX VIAL for IV PUSH) 40 mg BIDAC IVP Last administered on 04/28/20at 09:42; Start 04/23/20 at 16:30; Stop 04/28/20 at 10:32; Status DC Amino Acids/ Glycerin/ Electrolytes 1,000 ml @ 100 mls/hr Q10H IV Last a dministered on 04/28/20at 13:54; Start 04/23/20 at 16:45; Stop 04/28/20 at 21:59; Status DC Potassium Chloride/Water 100 ml @ 50 mls/hr 1X ONCE IV Last administered on 04/23/20at 19:39; Start 04/23/20 at 18:30; Stop 04/23/20 at 20:29; Status DC Sodium Chloride 1,000 ml @ 250 mls/hr 1X ONCE IV Last administered on 04/24/20at 09:08; Start 04/24/20 at 08:30; Stop 04/24/20 at 12:29; Status DC Sodium Chloride (Normal Saline Flush) 3 ml QSHIFT PRN IV AFTER MEDS AND BLOOD DRAWS; Start 04/24/20 at 08:30 Ondansetron HCl (Zofran) 4 mg PRN Q4HRS PRN IV NAUSEA/VOMITING Last administered on 04/25/20at 16:15; Start 04/24/20 at 08:30 Acetaminophen (Tylenol Supp) 650 mg PRN Q4HRS PRN GA TEMP OVER 100.4F OR MILD PAIN; Start 04/24/20 at 08:30 Sodium Monofluorophosphate (Fleet Adult) 133 ml PRN DAILY PRN GA CONSTIPATION; Start 04/24/20 at 08:30 Docusate Sodium (Colace) 100 mg PRN BID PRN PO HARD STOOLS Last administered on 04/25/20at 15:59; Start 04/24/20 at 08:30 Albuterol Sulfate (Ventolin Neb Soln) 2.5 mg PRN Q4HRS PRN NEB SHORTNESS OF BREATH; Start 04/24/20 at 08:30 Guaifenesin (Robitussin) 200 mg PRN Q4HRS PRN PO COUGH; Start 04/24/20 at 08:30 Piperacillin Sod/ Tazobactam Sod 3.375 gm/Sodium Chloride 50 ml @ 100 mls/hr Q6HRS IV Last administered on 04/27/20at 06:09; Start 04/24/20 at 08:30; Stop 04/27/20 at 08:14; Status DC Potassium Chloride/Water 100 ml @ 100 mls/hr Q1H IV ; Start 04/24/20 at 09:00; Stop 04/24/20 at 12:59; Status DC Lidocaine HCl (Buffered Lidocaine 1%) 3 ml STK-MED ONCE .ROUTE ; Start 04/24/20 at 13:36; Stop 04/24/20 at 13:37; Status DC Iodixanol (Visipaque 320) 100 ml STK-MED ONCE .ROUTE ; Start 04/24/20 at 13:36; Stop 04/24/20 at 13:37; Status DC Heparin Sodium/ Sodium Chloride 500 ml @ As Directed STK-MED ONCE .ROUTE ; Start 04/24/20 at 13:37; Stop 04/24/20 at 13:37; Status DC Midazolam HCl (Versed) 2 mg STK-MED ONCE .ROUTE ; Start 04/24/20 at 13:42; Stop 04/24/20 at 13:43; Status DC Fentanyl Citrate (Fentanyl 2ml Vial) 100 mcg STK-MED ONCE .ROUTE ; Start 04/24/20 at 13:42; Stop 04/24/20 at 13:43; Status DC Heparin Sodium (Porcine) (Heparin Sodium) 10,000 unit STK-MED ONCE .ROUTE ; Start 04/24/20 at 13:43; Stop 04/24/20 at 13:43; Status DC Lidocaine/ Epinephrine (LIDOCAINE 2%-EPI 1:100,000 multi-dose) 20 ml STK-MED ONCE .ROUTE ; Start 04/24/20 at 14:33; Stop 04/24/20 at 14:33; Status DC Heparin Sodium/ Sodium Chloride 500 ml @ As Directed STK-MED ONCE .ROUTE ; Start 04/24/20 at 15:28; Stop 04/24/20 at 15:28; Status DC Heparin Sodium/ Sodium Chloride (HEPARIN for ARTERIAL LINE FLUSH) 1,000 unit 1X ONCE IART Last administered on 04/24/20at 15:30; Start 04/24/20 at 15:30; Stop 04/24/20 at 15:37; Status DC Heparin Sodium/ Sodium Chloride (HEPARIN for ARTERIAL LINE FLUSH) 1,000 unit 1X ONCE IART Last administered on 04/24/20at 15:30; Start 04/24/20 at 15:30; Stop 04/24/20 at 15:37; Status DC Lidocaine HCl (Buffered Lidocaine 1%) 6 ml 1X ONCE IJ Last administered on 04/24/20at 15:30; Start 04/24/20 at 15:30; Stop 04/24/20 at 15:37; Status DC Midazolam HCl (Versed) 1 mg 1X ONCE IV Last administered on 04/24/20at 15:30; Start 04/24/20 at 15:30; Stop 04/24/20 at 15:37; Status DC Fentanyl Citrate (Fentanyl 2ml Vial) 50 mcg 1X ONCE IV Last administered on 04/24/20at 15:30; Start 04/24/20 at 15:30; Stop 04/24/20 at 15:37; Status DC Heparin Sodium (Porcine) (Heparin Sodium) 5,000 unit 1X ONCE IV Last administered on 04/24/20at 15:30; Start 04/24/20 at 15:30; Stop 04/24/20 at 15:37; Status DC Lidocaine/ Epinephrine (LIDOCAINE 1%-EPI 1:100,000 Multi-Dose) 20 ml 1X ONCE INJ Last administered on 04/24/20at 15:30; Start 04/24/20 at 15:30; Stop 04/24/20 at 15:37; Status DC Iodixanol (Visipaque 320) 100 ml 1X ONCE IART Last administered on 04/24/20at 15:30; Start 04/24/20 at 15:30; Stop 04/24/20 at 15:37; Status DC Aspirin (Ecotrin) 81 mg DAILYWBKFT PO Last administered on 04/29/20at 09:02; Start 04/25/20 at 08:00 Iodixanol (Visipaque 320) 50 ml STK-MED ONCE .ROUTE ; Start 04/24/20 at 15:48; Stop 04/24/20 at 15:48; Status DC Fentanyl Citrate (Fentanyl 2ml Vial) 50 mcg PRN Q2HR PRN IVP PAIN Last administered on 04/27/20at 01:36; Start 04/24/20 at 18:30 Lorazepam (Ativan) 0.5 mg PRN Q8HRS PRN PO ANXIETY / AGITATION Last administered on 04/25/20at 05:26; Start 04/25/20 at 05:00 Acetaminophen/ Hydrocodone Bitart (Lortab 5/325) 1 tab PRN Q6HRS PRN PO MODERATE PAIN 4-6 Last administered on 04/28/20at 22:18; Start 04/25/20 at 05:00 Amlodipine Besylate (Norvasc) 10 mg DAILY PO Last administered on 04/29/20at 09:02; Start 04/25/20 at 09:00 Info (Anti-Coagulation Monitoring By Pharmacy) 1 each PRN DAILY PRN MC SEE COMMENTS Last administered on 04/25/20at 13:07; Start 04/25/20 at 13:00 Lactobacillus Rhamnosus (Culturelle) 1 cap BID PO Last administered on 04/29/20at 09:04; Start 04/25/20 at 21:00 Potassium Chloride (Klor-Con) 30 meq 1X ONCE PO Last administered on 04/25/20at 15:59; Start 04/25/20 at 14:00; Stop 04/25/20 at 14:01; Status DC Lidocaine/ Epinephrine (LIDOCAINE 2%-EPI 1:100,000 multi-dose) 20 ml STK-MED ONCE .ROUTE ; Start 04/25/20 at 14:44; Stop 04/25/20 at 14:44; Status DC Heparin Sodium (Porcine) (Hep Lock Adult) 500 unit STK-MED ONCE IVP ; Start 04/25/20 at 14:44; Stop 04/25/20 at 14:44; Status DC Lidocaine/ Epinephrine (LIDOCAINE 2%-EPI 1:100,000 multi-dose) 20 ml 1X ONCE IJ Last administered on 04/25/20at 15:30; Start 04/25/20 at 15:30; Stop 04/25/20 at 15:31; Status DC Heparin Sodium (Porcine) (Hep Lock Adult) 500 unit 1X ONCE IVP Last administered on 04/25/20at 15:30; Start 04/25/20 at 15:30; Stop 04/25/20 at 15:31; Status DC Potassium Chloride/Water 100 ml @ 100 mls/hr Q1H IV Last administered on 04/25/20at 19:13; Start 04/25/20 at 16:30; Stop 04/25/20 at 19:29; Status DC Potassium Chloride/Water 100 ml @ 100 mls/hr Q1H IV Last administered on 04/26/20at 12:27; Start 04/26/20 at 11:00; Stop 04/26/20 at 12:59; Status DC Sodium Chloride 1,000 ml @ 1,000 mls/hr 1X ONCE IV Last administered on 04/26/20at 15:15; Start 04/26/20 at 15:15; Stop 04/26/20 at 16:14; Status DC Apixaban (Eliquis) 2.5 mg BID PO Last administered on 04/29/20at 09:03; Start 04/27/20 at 21:00 Albuterol Sulfate (Ventolin Neb Soln) 2.5 mg PRN Q4HRS PRN NEB WHEEZING; Start 04/27/20 at 16:45; Status UNV Lidocaine (Lidoderm) 1 patch DAILY TP Last administered on 04/29/20at 09:03; Start 04/27/20 at 17:00 Oxycodone/ Acetaminophen (Percocet 7.5/ 325) 1 tab PRN Q6HRS PRN PO PAIN; Start 04/27/20 at 16:45 Clonazepam (KlonoPIN) 1 mg BID PO Last administered on 04/29/20at 09:03; Start 04/27/20 at 21:00 Ondansetron HCl (Zofran Odt) 4 mg PRN Q6HRS PRN PO NAUSEA/VOMITING; Start 04/27/20 at 16:45 Albumin Human 100 ml @ 100 mls/hr BID IV Last administered on 04/29/20at 09:02; Start 04/27/20 at 21:00; Stop 04/29/20 at 11:00; Status DC Miscellaneous (Lidoderm Patch Removal) 1 ea QHS MC Last administered on 04/28/20at 20:45; Start 04/27/20 at 21:00 Pantoprazole Sodium (Protonix) 40 mg DAILYAC PO Last administered on 04/29/20at 05:44; Start 04/29/20 at 07:30 Info (Tpn Per Pharmacy) 1 each PRN DAILY PRN MC SEE COMMENTS Last administered on 04/28/20at 15:08; Start 04/28/20 at 14:45 Potassium Bicarbonate (Potassium Effervescent Tablet) 40 meq 1X ONCE PO ; Start 04/28/20 at 14:45; Stop 04/28/20 at 14:46; Status DC Sodium Acetate 70 meq/Potassium Chloride 50 meq/ Potassium Phosphate 13.6 mmol/Magnesium Sulfate 10 meq/ Calcium Gluconate 10 meq/ Multivitamins 5 ml/Zinc/Copper/ Manganese/ Selenium 1 ml/ Total Parenteral Nutrition/Amino Acids/Dextrose/ Fat Emulsion Intravenous 1,512 ml @ 63 mls/hr TPN CONT IV Last administered on 04/28/20at 22:28; Start 04/28/20 at 22:00; Stop 04/29/20 at 21:59 Active Scripts Active Proair Hfa (Albuterol Sulfate) 8.5 Gm Hfa.aer.ad 2.5 Mg NEB PRN Q4HRS PRN 14 Days Reported Percocet 7.5-325 Mg Tablet (Oxycodone/Acetaminophen) 1 Each Tablet 1 Tab PO PRN Q6HRS PRN Zofran (Ondansetron Hcl) 4 Mg Tablet 1 Tab PO Q6HRS Eliquis (Apixaban) 2.5 Mg Tablet Unknown Dose PO UNK Lidocaine PATCH (Lidocaine) 1 Each Adh..patch 1 Each TP DAILY REMOVE AFTER 12 HOURS Clonazepam 1 Mg Tablet 1 Mg PO BID [place] Carbonate 300 Mg Tablet 1 Tab PO BID Zanaflex (Tizanidine Hcl) 4 Mg Capsule 1 Cap PO TID PRN Allergies Allergies: Coded Allergies: daptomycin (Verified Allergy, Intermediate, chills, nausea , 08/09/19) ketamine (Verified Allergy, Intermediate, 09/13/19) I S O L A T I O N *CONTACT* (Verified Allergy, Unknown, Unknown, 08/14/19) mrsa ROS General: YES: Fatigue, Malaise PSYCHOLOGICAL ROS: No: Hallucinations, Hostility Eyes: No Eye Pain, No Itchy Eyes HEENT: No: Oral lesions, Sinus pain ALLERGY AND IMMUNOLOGY: No: Nasal Congestion, Post Nasal Drip Hematological and Lymphatic: No: Brusing, Night Sweats ENDOCRINE: YES: Malaise/lethargy; No: Mood Swings Breast: No Nipple discharge Respiratory: No: Shortness of breath, SOB with excertion Cardiovascular: No Paroxysmal Noc. Dyspnea, No Edema Gastrointestinal: No Diarrhea, No Constipation Musculoskeletal: No Joint Swelling, No Muscle Pain Neurological: No Headaches Skin: No Mottling, No Nail Changes Physical Exam General: Alert HEENT: Atraumatic Lungs: Clear to auscultation Heart: Regular rate Abdomen: Normal bowel sounds, Soft Extremities: No clubbing Skin: No breakdown Psych/Mental Status: Mental status NL MUSCULOSKELETAL: No deformity Vitals VITALS Vital Signs Date Time Temp Pulse Resp B/P (MAP) Pulse Ox O2 Delivery O2 Flow Rate FiO2 04/29/20 11:00 97.6 89 18 118/88 (98) 92 Room Air 97.6 04/28/20 23:18 2.0 Labs Labs Laboratory Tests Test 04/27/20 16:10 04/28/20 07:50 04/29/20 05:50 Hemoglobin 7.0 g/dL (13.0-17.5) 7.6 g/dL (13.0-17.5) 7.2 g/dL (13.0-17.5) Hematocrit 21.2 % (39.0-53.0) 22.9 % (39.0-53.0) 21.9 % (39.0-53.0) Mean Corpuscular Hemoglobin Concent 33 g/dL (31-37) 33 g/dL (31-37) 33 g/dL (31-37) White Blood Count 2.3 x10^3/uL (4.0-11.0) 2.0 x10^3/uL (4.0-11.0) Red Blood Count 2.67 x10^6/uL (4.30-5.70) 2.57 x10^6/uL (4.30-5.70) Mean Corpuscular Volume 86 fL (79-100) 85 fL (79-100) Mean Corpuscular Hemoglobin 28 pg (25-35) 28 pg (25-35) Red Cell Distribution Width 16.3 % (11.5-14.5) 16.2 % (11.5-14.5) Platelet Count 75 x10^3/uL (140-400) 76 x10^3/uL (140-400) Neutrophils (%) (Auto) 74 % (31-73) Lymphocytes (%) (Auto) 22 % (24-48) Monocytes (%) (Auto) 3 % (0-9) Eosinophils (%) (Auto) 2 % (0-3) Basophils (%) (Auto) 0 % (0-3) Neutrophils # (Auto) 1.7 x10^3/uL (1.8-7.7) Lymphocytes # (Auto) 0.5 x10^3/uL (1.0-4.8) Monocytes # (Auto) 0.1 x10^3/uL (0.0-1.1) Eosinophils # (Auto) 0.0 x10^3/uL (0.0-0.7) Basophils # (Auto) 0.0 x10^3/uL (0.0-0.2) Sodium Level 144 mmol/L (136-145) 141 mmol/L (136-145) Potassium Level 3.1 mmol/L (3.5-5.1) 3.0 mmol/L (3.5-5.1) Chloride Level 113 mmol/L (98-107) 109 mmol/L (98-107) Carbon Dioxide Level 21 mmol/L (21-32) 23 mmol/L (21-32) Anion Gap 10 (6-14) 9 (6-14) Blood Urea Nitrogen 11 mg/dL (8-26) 9 mg/dL (8-26) Creatinine 0.6 mg/dL (0.7-1.3) 0.6 mg/dL (0.7-1.3) Estimated GFR (Cockcroft-Gault) 142.0 142.0 BUN/Creatinine Ratio 18 (6-20) Glucose Level 118 mg/dL (70-99) 126 mg/dL (70-99) Calcium Level 7.3 mg/dL (8.5-10.1) 7.7 mg/dL (8.5-10.1) Total Bilirubin 0.7 mg/dL (0.2-1.0) Aspartate Amino Transf (AST/SGOT) 22 U/L (15-37) Alanine Aminotransferase (ALT/SGPT) 12 U/L (16-63) Alkaline Phosphatase 70 U/L (46-116) Total Protein 4.4 g/dL (6.4-8.2) Albumin 1.6 g/dL (3.4-5.0) Albumin/Globulin Ratio 0.6 (1.0-1.7) Phosphorus Level 1.1 mg/dL (2.6-4.7) Magnesium Level 1.6 mg/dL (1.8-2.4) Laboratory Tests Test 04/29/20 05:50 White Blood Count 2.0 x10^3/uL (4.0-11.0) Red Blood Count 2.57 x10^6/uL (4.30-5.70) Hemoglobin 7.2 g/dL (13.0-17.5) Hematocrit 21.9 % (39.0-53.0) Mean Corpuscular Volume 85 fL (79-100) Mean Corpuscular Hemoglobin 28 pg (25-35) Mean Corpuscular Hemoglobin Concent 33 g/dL (31-37) Red Cell Distribution Width 16.2 % (11.5-14.5) Platelet Count 76 x10^3/uL (140-400) Sodium Level 141 mmol/L (136-145) Potassium Level 3.0 mmol/L (3.5-5.1) Chloride Level 109 mmol/L (98-107) Carbon Dioxide Level 23 mmol/L (21-32) Anion Gap 9 (6-14) Blood Urea Nitrogen 9 mg/dL (8-26) Creatinine 0.6 mg/dL (0.7-1.3) Estimated GFR (Cockcroft-Gault) 142.0 Glucose Level 126 mg/dL (70-99) Calcium Level 7.7 mg/dL (8.5-10.1) Phosphorus Level 1.1 mg/dL (2.6-4.7) Magnesium Level 1.6 mg/dL (1.8-2.4) Assessment/Plan Assessment/Plan Assessment: Recurrent left lower extremity DVT H/o gallstone pancreatitis, pancreatic pseudocysts s/p drainage and necrosectomy at 01/2020 Protein calorie malnutrition Thrombocytopenia, acute Normocytic anemia Leukopenia, acute and likely reactive NSTEMI, type II Recommendations: -Would agree with IR and vascular surgery recommendations for indefinite anticoagulation given significant clot burden. Since he was off Eliquis at the time of his new episode of DVT, do not feel that this represents failure of Eliquis -We will check for antiphospholipid syndrome with lupus anticoagulant, antibeta- 2 glycoprotein antibody, anticardiolipin antibodies and this would affect the choice of anticoagulation. -Suspect that thrombocytopenia is secondary to Zosyn given correlation with initiation of antibiotics. 4 T score assessment indicates low probability of HIT given lack of exposure to heparin prior to his current hospitalization. I recommend checking CBC daily to monitor platelet count. We will also check iron studies, B12, reticulocyte count -Continue with supportive care for protein calorie malnutrition per primary service -Management of GI symptoms from chronic pancreatitis by gastroenterology service -Management of type II NSTEMI per cardiology service -We will continue to follow ID recommendations. Monitoring off antibiotics at this time Ant Wilkinson MD Medical Oncology/Hematology Ph: [phone] OLGA WILKINSON MD Apr 29, 2020 12:11
[2020-04-29] MEDS: TPN PER PHARMACY MC PRN ×2 (12:43→13:00)
--- NOTE | 2020-04-29 13:01 | NUR ---
Pharmacy TPN Dosing Note S: FLORECITAPATTYANASTACIA is a 50 year old M Currently receiving Central Continuous TPN started 04/28/20 B:Pertinent PMH: PANCREATIC CANCER/WEIGHT LOST Height: 5 feet, 7 inches Weight: 61.2 kg Current diet: CLD LABS: Sodium: 141 Potassium: 3 Chloride: 109 Calcium: 7.7 Corrected Calcium: 9.62 Magnesium: 1.6 CO2: 23 SCr: 0.6 Glucose: 126 Albumin: 1.6 AST: 22 ALT: 12 TPN FORMULA: TPN TYPE: Central Continuous AMINO ACIDS: 60 gm DEXTROSE: 195 gm LIPIDS: 20 gm SODIUM CHLORIDE: mEq SODIUM ACETATE: 70 mEq SODIUM PHOSPHATE: mmol POTASSIUM CHLORIDE: 50 mEq POTASSIUM ACETATE: 50 mEq POTASSIUM PHOSPHATE: 27.2 mmol MAGNESIUM: 22 mEq CALCIUM: 10 mEq INSULIN: units MULTIPLE VITAMIN: 5 ml TRACE ELEMENTS: 1 ml(s) TPN PLAN: Keep macros the same per interventional radiology tech rec. Refeeding lytes dropped; gave riders of Kphos 30 mmol (44 meq potassium) and 2 g (16 meq) magnesium sulfate. Increased both in TPN. Changed KCl to KAc for acid-base balance. BMP/phos/mag/trig in AM. Pt has GI soft diet ordered with good intake this AM. R: Continue TPN ABOVE. Will monitor electrolytes, glucose, and tolerance to TPN. MICHAEL PEREIRA [facility], 04/29/20 [id number]
--- NOTE | 2020-04-29 13:27 | PDOC ---
[employer] PROGRESS NOTE Date of Service DOS: DATE: 04/29/20 TIME: 13:16 Chief Complaint Chief Complaint A/P: Dehydration abnormal weight loss Person under investigation for COVID-19 Nausea vomiting and diarrhea Extensive occlusive left lower extremity deep venous thrombosis. DIABETES Bipolar disease Leukocytosis, ACD, JAQUAN, lactic acidosis, elevated LFTs, mildly elevated troponin H/o GERD and pancreatic pseudocysts s/p cystogastrostomy @ [facility], weight loss Pelvic lymphadenopathy, uncertain clinical significance, possibly reactive. Diffuse left lower extremity subcutaneous edema. No loculated fluid collection to suggest abscess although evaluation is degraded without IV contrast. pancytopenia Recurrent pancreatitis PLAN ADMITTED GI CONSULT Consult IR for left leg venous thrombolysis. 04-24 nephrology consult vascular surgery following oncology consult ID CONSULT D/C iv zosyn pathology for peripheral smear BLOOD CULTURE Preliminary NO GROWTH AFTER 2 DAYS D/W RN, oncolohy consult pending History of Present Illness History of Present Illness Mr Reyes is a 50 year old male brought in by EMS for nausea, vomiting and diarrhea since 04-22 . His emesis has been brown but denies any blood. Diarrhea is nonbloody nonbilious. Denies any fevers. Was tested for Covid but has not had it yet. Denies any positive contacts but knows people he has not been in contact who tested positive. Denies any fevers, cough. Has a history of pancreatitis and stents placed. He was started on empiric Zosyn. He had mild troponin elevation. For left lower extremity extensive DVT extending to IVC he underwent mechanical thrombectomy and angioplasty of SFV, CFV, EIV and CIV GI-carnes, had gallstone pancreatitis in 09/2019 - s/p cholecystectomy then. The next month was admitted w/ strep bacteremia/resp failure - imaging at that time noted pancreatic pseudocysts. Since then, apparently underwent endoscopic drainage of pseudocyst w/ stent and necrosectomy at . 04/24: LLE venogram, thrombectomy, Iliac vein stent, tunnelled central line 04-27: APPEARS WEAK, APPETITE FAIR HGB 6.1 TRANSFUSE 1 UNIT PRBC'S He has also been noted per his mother, bedside of a prior CVA noted at [facility]. He has lost over 100#, from 240# over a year ago, now with multiple hospitalizations with pancreatitis over the past year. Hb to 7.6 post-transfu nelson, WBC 2.3, K 3.1 today. Not eating much. Mother requesting parenteral nutrition. 04/28: Patient seen and evaluated. Hemoglobin 7.2, will continue to monitor and transfuse as necessary. S/P mechanical thrombectomy, multifocal angioplasty, and stent placement within external iliac vein. Hem/Onc evaluated patient today and agrees with recommendations for indefinite anticoagulation given significant clot burden. Hypercoagulable work-up to follow. Vitals/I&O Vitals/I&O: Vital Signs Date Time Temp Pulse Resp B/P (MAP) Pulse Ox O2 Delivery O2 Flow Rate FiO2 04/29/20 11:00 97.6 89 18 118/88 (98) 92 Room Air 97.6 04/28/20 23:18 2.0 I & O 04/28/20 04/28/20 04/29/20 15:00 23:00 07:00 Intake Total 300 ml 420 ml Balance 300 ml 420 ml Physical Exam Physical Exam: General: Thin cachectic male on room air in no acute distress HEENT: Atraumatic, EOMI, Mucous membr. moist/pink Lungs: Clear to auscultation Heart: Normal S1, Normal S2, No murmurs Abdomen: Normal bowel sounds, Soft, No tenderness Extremities: No cyanosis,Lower ext edema, no warmth Skin: No generalized rashes MSK; generalized weakness Neuro:sleepy but arousable moves all 4 extremities General: Alert Heart: Regular rate Lungs: Clear Abdomen: Normal bowel sounds, Soft Extremities: No clubbing Skin: No breakdown Labs Labs: Laboratory Tests Test 04/29/20 05:50 White Blood Count 2.0 x10^3/uL (4.0-11.0) Red Blood Count 2.57 x10^6/uL (4.30-5.70) Hemoglobin 7.2 g/dL (13.0-17.5) Hematocrit 21.9 % (39.0-53.0) Mean Corpuscular Volume 85 fL (79-100) Mean Corpuscular Hemoglobin 28 pg (25-35) Mean Corpuscular Hemoglobin Concent 33 g/dL (31-37) Red Cell Distribution Width 16.2 % (11.5-14.5) Platelet Count 76 x10^3/uL (140-400) Sodium Level 141 mmol/L (136-145) Potassium Level 3.0 mmol/L (3.5-5.1) Chloride Level 109 mmol/L (98-107) Carbon Dioxide Level 23 mmol/L (21-32) Anion Gap 9 (6-14) Blood Urea Nitrogen 9 mg/dL (8-26) Creatinine 0.6 mg/dL (0.7-1.3) Estimated GFR (Cockcroft-Gault) 142.0 Glucose Level 126 mg/dL (70-99) Calcium Level 7.7 mg/dL (8.5-10.1) Phosphorus Level 1.1 mg/dL (2.6-4.7) Magnesium Level 1.6 mg/dL (1.8-2.4) Assessment and Plan Assessmemt and Plan Problems Medical Problems: (1) Dehydration Status: Acute (2) Nausea vomiting and diarrhea Status: Acute (3) Person under investigation for COVID-19 Status: Acute Comment Review of Relevant I have reviewed the following items blaze (where applicable) has been applied. Medications: Current Medications Medications (Trade) Dose Ordered Sig/Edilma Route PRN Reason Start Time Stop Time Status Last Admin Dose Admin Pantoprazole Sodium (Protonix) 40 mg DAILYAC PO 04/29/20 07:30 04/29/20 05:44 Info (Tpn Per Pharmacy) 1 each PRN DAILY PRN MC SEE COMMENTS 04/28/20 14:45 04/29/20 13:00 Sodium Acetate 70 meq/Potassium Chloride 50 meq/ Potassium Phosphate 13.6 mmol/Magnesium Sulfate 10 meq/ Calcium Gluconate 10 meq/ Multivitamins 5 ml/Zinc/Copper/ Manganese/ Selenium 1 ml/ Total Parenteral Nutrition/Amino Acids/Dextrose/ Fat Emulsion Intravenous 1,512 ml @ 63 mls/hr TPN CONT IV 04/28/20 22:00 04/29/20 21:59 04/28/20 22:28 Justifications for Admission General Conditions Poss tachycardia?: Yes Justification for admission: Patient has tachycardia (> 100 beats per minute) which is not readily corrected by appropriate treatment within 12 to 24 hours. dehydration Other Justification MEERA GUZMAN MD Apr 29, 2020 13:27
[2020-04-29] MEDS: POTASSIUM PHOSPHATE DIBASIC 13.6 MMOL in IV NS 250 ML IV SCH ×2 (13:47→15:54)
[2020-04-29] MEDS: ANTI-COAG MONITOR BY PHARMACY. MC PRN (13:57)
--- NOTE | 2020-04-29 14:45 | PDOC ---
[employer] PROGRESS NOTE Date of Service DOS: DATE: 04/29/20 TIME: 14:41 Chief Complaint Chief Complaint A/P: Dehydration abnormal weight loss Person under investigation for COVID-19 Nausea vomiting and diarrhea Extensive occlusive left lower extremity deep venous thrombosis. DIABETES Bipolar disease Leukocytosis, ACD, JAQUAN, lactic acidosis, elevated LFTs, mildly elevated troponin H/o GERD and pancreatic pseudocysts s/p cystogastrostomy @ [facility], weight loss Pelvic lymphadenopathy, uncertain clinical significance, possibly reactive. Diffuse left lower extremity subcutaneous edema. No loculated fluid collection to suggest abscess although evaluation is degraded without IV contrast. pancytopenia Recurrent pancreatitis PLAN ADMITTED GI CONSULT Consult IR for left leg venous thrombolysis. 04-24 nephrology consult vascular surgery following oncology consult ID CONSULT D/C iv zosyn pathology for peripheral smear BLOOD CULTURE Preliminary NO GROWTH AFTER 2 DAYS D/W RN, oncolohy consult pending History of Present Illness History of Present Illness Mr Reyes is a 50 year old male brought in by EMS for nausea, vomiting and diarrhea since 04-22 . His emesis has been brown but denies any blood. Diarrhea is nonbloody nonbilious. Denies any fevers. Was tested for Covid but has not had it yet. Denies any positive contacts but knows people he has not been in contact who tested positive. Denies any fevers, cough. Has a history of pancreatitis and stents placed. He was started on empiric Zosyn. He had mild troponin elevation. For left lower extremity extensive DVT extending to IVC he underwent mechanical thrombectomy and angioplasty of SFV, CFV, EIV and CIV GI-carnes, had gallstone pancreatitis in 09/2019 - s/p cholecystectomy then. The next month was admitted w/ strep bacteremia/resp failure - imaging at that time noted pancreatic pseudocysts. Since then, apparently underwent endoscopic drainage of pseudocyst w/ stent and necrosectomy at . 04/24: LLE venogram, thrombectomy, Iliac vein stent, tunnelled central line 04-27: APPEARS WEAK, APPETITE FAIR HGB 6.1 TRANSFUSE 1 UNIT PRBC'S 04/28: He has also been noted per his mother, bedside of a prior CVA noted at [facility]. He has lost over 100#, from 240# over a year ago, now with multiple hospitalizations with pancreatitis over the past year. Hb to 7.6 post- transfusion, WBC 2.3, K 3.1 today. Not eating much. Mother requesting parenteral nutrition. 04/29: Patient seen and evaluated. Hemoglobin 7.2, will continue to monitor and transfuse as necessary. S/P mechanical thrombectomy, multifocal angioplasty, and stent placement within external iliac vein. Hem/Onc evaluated patient today and agrees with recommendations for indefinite anticoagulation given significant clot burden. Hypercoagulable work-up to follow, this may be able to complete complete outpatient. Poor appetite and weight loss has been noted, but this is not uncommon for this patient. He has had EGD but never had colonoscopy. Will defer CRC screening to GI. Vitals/I&O Vitals/I&O: Vital Signs Date Time Temp Pulse Resp B/P (MAP) Pulse Ox O2 Delivery O2 Flow Rate FiO2 04/29/20 11:00 97.6 89 18 118/88 (98) 92 Room Air 97.6 04/28/20 23:18 2.0 I & O 04/28/20 04/28/20 04/29/20 15:00 23:00 07:00 Intake Total 300 ml 420 ml Balance 300 ml 420 ml Physical Exam Physical Exam: General: Thin cachectic male on room air in no acute distress HEENT: Atraumatic, EOMI, Mucous membr. moist/pink Lungs: Clear to auscultation Heart: Normal S1, Normal S2, No murmurs Abdomen: Normal bowel sounds, Soft, No tenderness Extremities: No cyanosis,Lower ext edema, no warmth Skin: No generalized rashes MSK; generalized weakness Neuro:sleepy but arousable moves all 4 extremities General: Alert Heart: Regular rate Lungs: Clear Abdomen: Normal bowel sounds, Soft Extremities: No clubbing, No cyanosis, Other (+1 pitting edema to left lower extremity) Skin: No breakdown Labs Labs: Laboratory Tests Test 04/29/20 05:50 White Blood Count 2.0 x10^3/uL (4.0-11.0) Red Blood Count 2.57 x10^6/uL (4.30-5.70) Hemoglobin 7.2 g/dL (13.0-17.5) Hematocrit 21.9 % (39.0-53.0) Mean Corpuscular Volume 85 fL (79-100) Mean Corpuscular Hemoglobin 28 pg (25-35) Mean Corpuscular Hemoglobin Concent 33 g/dL (31-37) Red Cell Distribution Width 16.2 % (11.5-14.5) Platelet Count 76 x10^3/uL (140-400) Sodium Level 141 mmol/L (136-145) Potassium Level 3.0 mmol/L (3.5-5.1) Chloride Level 109 mmol/L (98-107) Carbon Dioxide Level 23 mmol/L (21-32) Anion Gap 9 (6-14) Blood Urea Nitrogen 9 mg/dL (8-26) Creatinine 0.6 mg/dL (0.7-1.3) Estimated GFR (Cockcroft-Gault) 142.0 Glucose Level 126 mg/dL (70-99) Calcium Level 7.7 mg/dL (8.5-10.1) Phosphorus Level 1.1 mg/dL (2.6-4.7) Magnesium Level 1.6 mg/dL (1.8-2.4) Assessment and Plan Assessmemt and Plan Problems Medical Problems: (1) Dehydration Status: Acute (2) Nausea vomiting and diarrhea Status: Acute (3) Person under investigation for COVID-19 Status: Acute Comment Review of Relevant I have reviewed the following items blaze (where applicable) has been applied. Medications: Current Medications Medications (Trade) Dose Ordered Sig/Edilma Route PRN Reason Start Time Stop Time Status Last Admin Dose Admin Pantoprazole Sodium (Protonix) 40 mg DAILYAC PO 04/29/20 07:30 04/29/20 05:44 Info (Tpn Per Pharmacy) 1 each PRN DAILY PRN MC SEE COMMENTS 04/28/20 14:45 04/29/20 13:00 Sodium Acetate 70 meq/Potassium Chloride 50 meq/ Potassium Phosphate 13.6 mmol/Magnesium Sulfate 10 meq/ Calcium Gluconate 10 meq/ Multivitamins 5 ml/Zinc/Copper/ Manganese/ Selenium 1 ml/ Total Parenteral Nutrition/Amino Acids/Dextrose/ Fat Emulsion Intravenous 1,512 ml @ 63 mls/hr TPN CONT IV 04/28/20 22:00 04/29/20 21:59 04/28/20 22:28 Potassium Phosphate 13.6 mmol/Sodium Chloride 254.5333 ml @ 127.... Q2H IV 04/29/20 14:00 04/29/20 17:59 04/29/20 13:47 Justifications for Admission General Conditions Poss tachycardia?: Yes Justification for admission: Patient has tachycardia (> 100 beats per minute) which is not readily corrected by appropriate treatment within 12 to 24 hours. dehydration Other Justification MEERA GUZMAN MD Apr 29, 2020 14:45
[2020-04-29 15:00] VITALS: BP 90/60
[2020-04-29] MEDS: HYDROcodone/APAP 5/325MG 1 TAB TABLET PO PRN (18:23)
[2020-04-29] MEDS: LORazepam 0.5 MG TABLET PO PRN (18:23)
[2020-04-29 19:00] VITALS: BP 112/81
[2020-04-29] MEDS ORDERED: MAGNESIUM SULFATE 2GM 50 ML IV ONE (19:00)
[2020-04-29] MEDS: PATCH REMOVAL. MC SCH (21:00)
[2020-04-29] MEDS ORDERED: TOTAL PARENTERAL NUTRITION IV SCH (22:00)
[2020-04-29] MEDS ORDERED: [UNRECOGNIZED DRUG - OTHER] IV SCH (22:00)
[2020-04-29] MEDS ORDERED: DEXTROSE 70% IV SCH (22:00)
[2020-04-29] MEDS ORDERED: AMINO ACID IV SCH (22:00)
[2020-04-29 23:00] VITALS: BP 105/77
[2020-04-30 03:00] VITALS: BP 114/87
[2020-04-30] MEDS: oxyCODONE/APAP 7.5/325 1 TAB TABLET PO PRN ×2 (05:27→13:05)
[2020-04-30] MEDS: PANTOPRAZOLE 40 MG TABLET.DR. PO SCH (05:27)
[2020-04-30] MEDS: LORazepam 0.5 MG TABLET PO PRN (05:27)
[2020-04-30 06:42] LABS: CALCIUM 7.3 mg/dL (8.5-10.1); CREATININE 0.5 mg/dL (0.7-1.3); GFR 175.3; MAGNESIUM 1.8 mg/dL (1.8-2.4); POTASSIUM 3.3 mmol/L (3.5-5.1)
[2020-04-30 07:00] VITALS: BP 111/83
--- NOTE | 2020-04-30 07:06 | PDOC ---
[employer] PROGRESS NOTE Date of Service DOS: DATE: 04/30/20 TIME: 06:59 Chief Complaint Chief Complaint A/P: Dehydration Abnormal weight loss Nausea vomiting and diarrhea Recurrent left lower extremity DVT - Extensive occlusive left lower extremity deep venous thrombosis. DM2 Bipolar disease Leukocytosis, ACD JAQUAN - vasomotor nephropathy Lactic acidosis Elevated LFTs NSTEMI, type II - Elevated troponin H/o GERD and pancreatic pseudocysts s/p cystogastrostomy @ [facility], weight loss Pelvic lymphadenopathy, uncertain clinical significance, possibly reactive. Recurrent pancreatitis H/o gallstone pancreatitis, pancreatic pseudocysts s/p drainage and necrosectomy at 01/2020 Severe Protein calorie malnutrition Thrombocytopenia, acute Normocytic anemia Leukopenia, acute and likely reactive PLAN ADMITTED GI CONSULT Consult IR for left leg venous thrombolysis. 04-24 nephrology consult vascular surgery following oncology consult ID CONSULT D/C iv zosyn pathology for peripheral smear BLOOD CULTURE Preliminary NO GROWTH AFTER 2 DAYS D/W RN, oncolohy consult pending History of Present Illness History of Present Illness Mr Reyes is a 50 year old male brought in by EMS for nausea, vomiting and diarrhea since 04-22 . His emesis has been brown but denies any blood. Diarrhea is nonbloody nonbilious. Denies any fevers. Was tested for Covid but has not had it yet. Denies any positive contacts but knows people he has not been in contact who tested positive. Denies any fevers, cough. Has a history of pancreatitis and stents placed. He was started on empiric Zosyn. He had mild troponin elevation. For left lower extremity extensive DVT extending to IVC he underwent mechanical thrombectomy and angioplasty of SFV, CFV, EIV and CIV Recently with gallstone pancreatitis in 09/2019 - s/p cholecystectomy then. The next month was admitted w/ strep bacteremia/resp failure - imaging at that time noted pancreatic pseudocysts. Since then, apparently underwent endoscopic drainage of pseudocyst w/ stent and necrosectomy at 01/2020. 04/24: LLE venogram, thrombectomy, Iliac vein stent, tunnelled central line 04/27: APPEARS WEAK, APPETITE FAIR HGB 6.1 TRANSFUSE 1 UNIT PRBC'S 04/28: He has also been noted per his mother, bedside of a prior CVA noted at [facility]. He has lost over 100#, from 240# over a year ago, now with multiple hospitalizations with pancreatitis over the past year. Hb to 7.6 post- transfusion, WBC 2.3, K 3.1 today. Not eating much. Mother requesting parenteral nutrition. 04/29: Patient seen and evaluated. Hemoglobin 7.2, will continue to monitor and transfuse as necessary. S/P mechanical thrombectomy, multifocal angioplasty, and stent placement within external iliac vein. Hem/Onc evaluated patient today and agrees with recommendations for indefinite anticoagulation given significant clot burden. Hypercoagulable work-up to follow, this may be able to complete complete outpatient. Poor appetite and weight loss has been noted, but this is not uncommon for this patient. He has had EGD but never had colonoscopy. Will defer CRC screening to GI. Afebrile overnight. Reticulocyte count low [place] level improved magnesium 1.8 potassium 3.3. Eliquis dose increased to 5 mg unclear why he was on 2 5 mg at home. Vitals/I&O Vitals/I&O: Vital Signs Date Time Temp Pulse Resp B/P (MAP) Pulse Ox O2 Delivery O2 Flow Rate FiO2 04/30/20 06:27 18 99 Room Air 04/30/20 03:00 98.2 90 114/87 (96) 98.2 I & O 04/29/20 04/29/20 04/30/20 15:00 23:00 07:00 Intake Total 200 ml 400 ml Output Total 300 ml 300 ml Balance -100 ml 100 ml Physical Exam Physical Exam: General: Thin cachectic male on room air in no acute distress HEENT: Atraumatic, EOMI, Mucous membr. moist/pink Lungs: Clear to auscultation Heart: Normal S1, Normal S2, No murmurs Abdomen: Normal bowel sounds, Soft, No tenderness Extremities: No cyanosis,Lower ext edema, no warmth Skin: No generalized rashes MSK; generalized weakness Neuro:sleepy but arousable moves all 4 extremities General: Alert Heart: Regular rate Lungs: Clear Abdomen: Normal bowel sounds, Soft Extremities: No clubbing, No cyanosis, Other (+1 pitting edema to left lower extremity) Skin: No breakdown Labs Labs: Laboratory Tests Test 04/30/20 06:00 Red Blood Count 2.60 x10^6/uL (4.30-5.70) Absolute Reticulocyte Count x10^6/uL (0.020-0.120) Percent Reticulocyte Count < 0.2 % (0.5-2.3) Immature Reticulocyte Fraction (0.20-0.60) Sodium Level 141 mmol/L (136-145) Potassium Level 3.3 mmol/L (3.5-5.1) Chloride Level 108 mmol/L (98-107) Carbon Dioxide Level 26 mmol/L (21-32) Anion Gap 7 (6-14) Blood Urea Nitrogen 8 mg/dL (8-26) Creatinine 0.5 mg/dL (0.7-1.3) Estimated GFR (Cockcroft-Gault) 175.3 Glucose Level 132 mg/dL (70-99) Calcium Level 7.3 mg/dL (8.5-10.1) Phosphorus Level 2.0 mg/dL (2.6-4.7) Magnesium Level 1.8 mg/dL (1.8-2.4) Iron Level 24 ug/dL (65-175) Total Iron Binding Capacity 57 ug/dL (250-450) Iron Saturation 42 % (15-34) Ferritin 288 ng/mL (26-388) Triglycerides Level 81 mg/dL (0-150) Assessment and Plan Assessmemt and Plan Problems Medical Problems: (1) Dehydration Status: Acute (2) Nausea vomiting and diarrhea Status: Acute (3) Person under investigation for COVID-19 Status: Acute Comment Review of Relevant I have reviewed the following items blaze (where applicable) has been applied. Medications: Current Medications Medications (Trade) Dose Ordered Sig/Edilma Route PRN Reason Start Time Stop Time Status Last Admin Dose Admin Pantoprazole Sodium (Protonix) 40 mg DAILYAC PO 04/29/20 07:30 04/30/20 05:27 Potassium Phosphate 13.6 mmol/Sodium Chloride 254.5333 ml @ 127.... Q2H IV 04/29/20 14:00 04/29/20 17:59 DC 04/29/20 15:54 Sodium Acetate 70 meq/Potassium Acetate 50 meq/ Potassium Phosphate 27.2 mmol/Magnesium Sulfate 22 meq/ Calcium Gluconate 10 meq/ Multivitamins 5 ml/Zinc/Copper/ Manganese/ Selenium 1 ml/ Total Parenteral Nutrition/Amino Acids/Dextrose/ Fat Emulsion Intravenous 1,512 ml @ 63 mls/hr TPN CONT IV 04/29/20 22:00 04/30/20 21:59 04/29/20 22:01 Magnesium Sulfate 50 ml @ 25 mls/hr ONCE ONCE IV 04/29/20 19:00 04/29/20 20:59 DC 04/29/20 18:23 Justifications for Admission General Conditions Poss tachycardia?: Yes Justification for admission: Patient has tachycardia (> 100 beats per minute) which is not readily corrected by appropriate treatment within 12 to 24 hours. dehydration Other Justification MILAD BUSBY MD Apr 30, 2020 07:06
[2020-04-30] MEDS ORDERED: clonazePAM 0.5 MG TABLET PO PRN (07:15)
[2020-04-30] MEDS: LACTOBACILLUS RHAMNOSUS GG 1 CAPSULE. PO SCH ×2 (08:05→21:21)
[2020-04-30] MEDS: ASPIRIN ENTERIC COATED 81 MG TABLET.DR. PO SCH (08:05)
[2020-04-30] MEDS: APIXABAN 2.5 MG TABLET. PO SCH (08:06)
[2020-04-30] MEDS: LIDOCAINE (700MG/PATCH) PATCH. TP SCH (08:13)
--- NOTE | 2020-04-30 10:10 | PDOC ---
Date of Service: DATE: 04/30/20 TIME: 10:05 Subjective: Subjective: Not too hungry but ate some potatoes. Can't remember what he ate yesterday. Wants to go home. No vomiting. Objective: Objective: No GI concerns per nurse. Stools charted. Vital Signs: Vital Signs Date Time Temp Pulse Resp B/P (MAP) Pulse Ox O2 Delivery O2 Flow Rate FiO2 04/30/20 09:00 91 111/83 04/30/20 07:00 97.7 17 97 Room Air 97.7 Labs: Laboratory Tests Test 04/30/20 06:00 Red Blood Count 2.60 x10^6/uL Absolute Reticulocyte Count x10^6/uL Percent Reticulocyte Count < 0.2 % Immature Reticulocyte Fraction Sodium Level 141 mmol/L Potassium Level 3.3 mmol/L Chloride Level 108 mmol/L Carbon Dioxide Level 26 mmol/L Anion Gap 7 Blood Urea Nitrogen 8 mg/dL Creatinine 0.5 mg/dL Estimated GFR (Cockcroft-Gault) 175.3 Glucose Level 132 mg/dL Calcium Level 7.3 mg/dL Phosphorus Level 2.0 mg/dL Magnesium Level 1.8 mg/dL Iron Level 24 ug/dL Total Iron Binding Capacity 57 ug/dL Iron Saturation 42 % Ferritin 288 ng/mL Triglycerides Level 81 mg/dL Vitamin B12 Level 492 pg/mL PE: GEN: NAD - sitting up in bed LUNGS: clear HEART: RRR ABD: soft, non-tender NEURO/PSYCH: forgetful A/P: S/p LLE thrombectomy, iliac vein stent N/v - chronic - taking some PO Pancytopenia, low retic count - heme/onc following H/o recurrent lactic acidosis, encephalopathy H/o GERD and pancreatic pseudocysts s/p cystogastrostomy @ [facility] - on PPI COVID negative 04/23 -- Encouraged PO. Justicifation of Admission Dx: Justifications for Admission: Justification of Admission Dx: Yes Comminuty Aquired Pneumonia: Hemodynamic Instability Acute Renal Failure: RF Can't Be Managed Outpt Sepsis: Altered Mental Status DKA: DKA ADAN PEREZ Apr 30, 2020 10:10
--- NOTE | 2020-04-30 10:27 | PDOC ---
Infectious Disease Note Subjective: Subjective Pt denies any complaints d/w RN Vital Signs: Vital Signs Vital Signs Date Time Temp Pulse Resp B/P (MAP) Pulse Ox O2 Delivery O2 Flow Rate FiO2 04/30/20 09:00 91 111/83 04/30/20 07:00 97.7 17 97 Room Air 97.7 Physical Exam: PHYSICAL EXAM General: Thin cachectic male on room air in no acute distress HEENT: Atraumatic, EOMI, Mucous membr. moist/pink Lungs: Clear to auscultation Heart: Normal S1, Normal S2, No murmurs Abdomen: Normal bowel sounds, Soft, No tenderness Extremities: No cyanosis,Lower ext edema, no warmth Skin: No generalized rashes MSK; generalized weakness Neuro:sleepy but arousable moves all 4 extremities Medications: Inpatient Meds: Current Medications Medications (Trade) Dose Ordered Sig/Edilma Start Time Stop Time Status Last Admin Dose Admin Acetaminophen (Tylenol Supp) 650 mg PRN Q4HRS PRN 04/24/20 08:30 Acetaminophen (Tylenol) 650 mg PRN Q4HRS PRN 04/22/20 23:45 04/23/20 23:44 DC Acetaminophen/ Hydrocodone Bitart (Lortab 5/325) 1 tab PRN Q6HRS PRN 04/25/20 05:00 04/29/20 18:23 1 TAB Albumin Human 100 ml @ 100 mls/hr BID 04/27/20 21:00 04/29/20 11:00 DC 04/29/20 09:02 100 MLS/HR Albuterol Sulfate (Ventolin Neb Soln) 2.5 mg PRN Q4HRS PRN 04/27/20 16:45 UNV Amino Acids/ Glycerin/ Electrolytes 1,000 ml @ 100 mls/hr Q10H 04/23/20 16:45 04/28/20 21:59 DC 04/28/20 13:54 100 MLS/HR Amlodipine Besylate (Norvasc) 10 mg DAILY 04/25/20 09:00 04/29/20 09:02 10 MG Apixaban (Eliquis) 5 mg BID 04/30/20 21:00 Aspirin (Ecotrin) 81 mg DAILYWBKFT 04/25/20 08:00 04/30/20 08:05 81 MG Clonazepam (KlonoPIN) 1 mg PRN BID PRN 04/30/20 07:15 Diphenhydramine HCl (Benadryl) 25 mg 1X ONCE 04/22/20 22:45 04/22/20 22:46 DC 04/22/20 22:39 25 MG Docusate Sodium (Colace) 100 mg PRN BID PRN 04/24/20 08:30 04/25/20 15:59 100 MG Enoxaparin Sodium (Lovenox 60mg Syringe) 60 mg Q12HR 04/23/20 09:00 04/27/20 16:30 DC 04/26/20 20:38 60 MG Fentanyl Citrate (Fentanyl 2ml Vial) 50 mcg PRN Q2HR PRN 04/24/20 18:30 04/27/20 01:36 50 MCG Guaifenesin (Robitussin) 200 mg PRN Q4HRS PRN 04/24/20 08:30 Heparin Sodium (Porcine) (Hep Lock Adult) 500 unit 1X ONCE 04/25/20 15:30 04/25/20 15:31 DC 04/25/20 15:30 500 UNIT Heparin Sodium (Porcine) (Heparin Sodium) 5,000 unit 1X ONCE 04/24/20 15:30 04/24/20 15:37 DC 04/24/20 15:30 5,000 UNIT Heparin Sodium/ Sodium Chloride (HEPARIN for ARTERIAL LINE FLUSH) 1,000 unit 1X ONCE 04/24/20 15:30 04/24/20 15:37 DC 04/24/20 15:30 1,000 UNIT Info (Anti-Coagulation Monitoring By Pharmacy) 1 each PRN DAILY PRN 04/25/20 13:00 04/29/20 13:57 1 EACH Info (Tpn Per Pharmacy) 1 each PRN DAILY PRN 04/28/20 14:45 04/29/20 13:00 1 EACH Iodixanol (Visipaque 320) 50 ml STK-MED ONCE 04/24/20 15:48 04/24/20 15:48 DC Lactobacillus Rhamnosus (Culturelle) 1 cap BID 04/25/20 21:00 04/30/20 08:05 1 CAP Lidocaine (Lidoderm) 1 patch DAILY 04/27/20 17:00 04/30/20 08:13 1 PATCH Lidocaine HCl (Buffered Lidocaine 1%) 6 ml 1X ONCE 04/24/20 15:30 04/24/20 15:37 DC 04/24/20 15:30 4 ML Lidocaine/ Epinephrine (LIDOCAINE 1%-EPI 1:100,000 Multi-Dose) 20 ml 1X ONCE 04/24/20 15:30 04/24/20 15:37 DC 04/24/20 15:30 9 ML Lidocaine/ Epinephrine (LIDOCAINE 2%-EPI 1:100,000 multi-dose) 20 ml 1X ONCE 04/25/20 15:30 04/25/20 15:31 DC 04/25/20 15:30 7 ML Lorazepam (Ativan Inj) 1 mg PRN Q4HRS PRN 04/22/20 23:45 04/27/20 01:38 1 MG Lorazepam (Ativan) 0.5 mg PRN Q8HRS PRN 04/25/20 05:00 04/30/20 05:27 0.5 MG Magnesium Sulfate 50 ml @ 25 mls/hr ONCE ONCE 04/29/20 19:00 04/29/20 20:59 DC 04/29/20 18:23 25 MLS/HR Midazolam HCl (Versed) 1 mg 1X ONCE 04/24/20 15:30 04/24/20 15:37 DC 04/24/20 15:30 1 MG Miscellaneous (Lidoderm Patch Removal) 1 ea QHS 04/27/20 21:00 04/29/20 21:00 1 EA Morphine Sulfate (Morphine Sulfate) 4 mg PRN Q2HR PRN 04/22/20 23:45 04/23/20 23:44 DC 04/23/20 18:03 4 MG Ondansetron HCl (Zofran Odt) 4 mg PRN Q6HRS PRN 04/27/20 16:45 Ondansetron HCl (Zofran) 4 mg PRN Q4HRS PRN 04/24/20 08:30 04/25/20 16:15 4 MG Oxycodone/ Acetaminophen (Percocet 7.5/ 325) 1 tab PRN Q6HRS PRN 04/27/20 16:45 04/30/20 05:27 1 TAB Pantoprazole Sodium (PROTONIX VIAL for IV PUSH) 40 mg BIDAC 04/23/20 16:30 04/28/20 10:32 DC 04/28/20 09:42 40 MG Pantoprazole Sodium (Protonix) 40 mg DAILYAC 04/29/20 07:30 04/30/20 05:27 40 MG Piperacillin Sod/ Tazobactam Sod 3.375 gm/Sodium Chloride 50 ml @ 100 mls/hr Q6HRS 04/24/20 08:30 04/27/20 08:14 DC 04/27/20 06:09 100 MLS/HR Potassium Bicarbonate (Potassium Effervescent Tablet) 40 meq 1X ONCE 04/28/20 14:45 04/28/20 14:46 DC Potassium Chloride/Sodium Chloride 1,000 ml @ 125 mls/hr Q8H ONCE 04/22/20 21:45 04/23/20 05:44 DC 04/22/20 21:46 125 MLS/HR Potassium Chloride/Water 100 ml @ 100 mls/hr Q1H 04/26/20 11:00 04/26/20 12:59 DC 04/26/20 12:27 100 MLS/HR Potassium Phosphate 13.6 mmol/Sodium Chloride 254.5333 ml @ 127.... Q2H 04/29/20 14:00 04/29/20 17:59 DC 04/29/20 15:54 127.267 MLS/HR Potassium Chloride (Klor-Con) 30 meq 1X ONCE 04/25/20 14:00 04/25/20 14:01 DC 04/25/20 15:59 30 MEQ Prochlorperazine Edisylate (Compazine) 10 mg 1X ONCE 04/22/20 21:45 04/22/20 21:46 DC 04/22/20 21:45 10 MG Ringer's Solution 1,000 ml @ 125 mls/hr 1X ONCE 04/22/20 23:45 04/23/20 07:44 DC 04/23/20 03:29 125 MLS/HR Sodium Monofluorophosphate (Fleet Adult) 133 ml PRN DAILY PRN 04/24/20 08:30 Sodium Acetate 70 meq/Potassium Acetate 50 meq/ Potassium Phosphate 27.2 mmol/Magnesium Sulfate 22 meq/ Calcium Gluconate 10 meq/ Multivitamins 5 ml/Zinc/Copper/ Manganese/ Selenium 1 ml/ Total Parenteral Nutrition/Amino Acids/Dextrose/ Fat Emulsion Intravenous 1,512 ml @ 63 mls/hr TPN CONT 04/29/20 22:00 04/30/20 21:59 04/29/20 22:01 63 MLS/HR Sodium Acetate 70 meq/Potassium Chloride 50 meq/ Potassium Phosphate 13.6 mmol/Magnesium Sulfate 10 meq/ Calcium Gluconate 10 meq/ Multivitamins 5 ml/Zinc/Copper/ Manganese/ Selenium 1 ml/ Total Parenteral Nutrition/Amino Acids/Dextrose/ Fat Emulsion Intravenous 1,512 ml @ 63 mls/hr TPN CONT 04/28/20 22:00 04/29/20 21:59 DC 04/28/20 22:28 63 MLS/HR Sodium Chloride 1,000 ml @ 1,000 mls/hr 1X ONCE 04/26/20 15:15 04/26/20 16:14 DC 04/26/20 15:15 1,000 MLS/HR Sodium Chloride (Normal Saline Flush) 3 ml QSHIFT PRN 04/24/20 08:30 Labs: Lab Laboratory Tests Test 04/30/20 06:00 Red Blood Count 2.60 x10^6/uL (4.30-5.70) Absolute Reticulocyte Count x10^6/uL (0.020-0.120) Percent Reticulocyte Count < 0.2 % (0.5-2.3) Immature Reticulocyte Fraction (0.20-0.60) Sodium Level 141 mmol/L (136-145) Potassium Level 3.3 mmol/L (3.5-5.1) Chloride Level 108 mmol/L (98-107) Carbon Dioxide Level 26 mmol/L (21-32) Anion Gap 7 (6-14) Blood Urea Nitrogen 8 mg/dL (8-26) Creatinine 0.5 mg/dL (0.7-1.3) Estimated GFR (Cockcroft-Gault) 175.3 Glucose Level 132 mg/dL (70-99) Calcium Level 7.3 mg/dL (8.5-10.1) Phosphorus Level 2.0 mg/dL (2.6-4.7) Magnesium Level 1.8 mg/dL (1.8-2.4) Iron Level 24 ug/dL (65-175) Total Iron Binding Capacity 57 ug/dL (250-450) Iron Saturation 42 % (15-34) Ferritin 288 ng/mL (26-388) Triglycerides Level 81 mg/dL (0-150) Vitamin B12 Level 492 pg/mL (247-911) Micro CT left lower extremity impression: 1. Diffuse left lower extremity subcutaneous edema. No loculated fluid collection to suggest abscess although evaluation is degraded without IV contrast. If persistent clinical concern, follow-up ultrasound can further evaluate. 2. Left total knee arthroplasty. 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 stiology, possible malignancy Generalized debility Mild troponin elevation demand ischemia Plan: Plan of Care Monitor off antibiotics at this time F/U EBV,PARVO ab, Oncology and GI team following Discussed with nursing staff KYLAH DOUGLASS MD Apr 30, 2020 10:27
[2020-04-30 11:00] VITALS: BP 101/68
[2020-04-30] MEDS: POTASSIUM BICARB 10 MEQ EFFERVESCENT TABLET. PEG ONE ×2 (11:15→15:03)
[2020-04-30] MEDS: ANTI-COAG MONITOR BY PHARMACY. MC PRN (11:33)
[2020-04-30] MEDS: TPN PER PHARMACY MC PRN (12:07)
--- NOTE | 2020-04-30 12:10 | NUR ---
Pharmacy TPN Dosing Note S: FLORECITAYVONNEFLORECITAMarcelinaANASTACIA Edouard is a 50 year old M Currently receiving Central Continuous TPN started 04/28/20 B:Pertinent PMH: PANCREATIC CANCER/WEIGHT LOST Height: 5 feet, 7 inches Weight: 61.2 kg Current diet: GI Soft LABS: Sodium: 141 Potassium: 3.3 Chloride: 108 Calcium: 7.3 Corrected Calcium: 9.22 Magnesium: 1.8 CO2: 26 SCr: 0.5 Glucose: 181 Albumin: 1.6 AST: 22 ALT: 12 TPN FORMULA: TPN TYPE: Central Continuous AMINO ACIDS: 60 gm DEXTROSE: 195 gm LIPIDS: 20 gm SODIUM ACETATE: 70 mEq POTASSIUM CHLORIDE: 50 mEq POTASSIUM ACETATE: 50 mEq POTASSIUM PHOSPHATE: 32 mmol MAGNESIUM: 22 mEq CALCIUM: 10 mEq MULTIPLE VITAMIN: 5 ml TRACE ELEMENTS: 1 ml(s) TPN PLAN: Increase KPhos to 32 mMol/bag due to low PO4 and K+ levels, R: Change TPN Will monitor electrolytes, glucose, and tolerance to TPN. Miguel A Hines [facility], 04/30/20 1210
--- NOTE | 2020-04-30 13:14 | NUR ---
SW following for discharge planning. Spoke with RN and reviewed chart. Pt remains on TPN. Pt on room air. Spoke with pt and pt's mother today and they are agreeable to a referral for home infusion for the TPN. Patient stated no preference in provider. Patient choice of vendor form completed. Referral faxed to [facility]. SW following.
[2020-04-30 15:00] VITALS: BP 110/84
[2020-04-30] MEDS: tiZANidine 4 MG TABLET. PO PRN (15:03)
[2020-04-30 15:19] LABS: PARVO IGM 0.1 index (0.0-0.8)
[2020-04-30] MEDS ORDERED: MAGNESIUM SULFATE 1GM 100 ML IV ONE (15:30)
[2020-04-30] MEDS ORDERED: DEXTROSE 50% 25 GM / 50ML DISP.SYRIN. IV PRN (17:15)
[2020-04-30] MEDS: INSULIN LISPRO 300 UNITS/3 ML VIAL. SQ SCH (17:30)
[2020-04-30 19:00] VITALS: BP 100/77
[2020-04-30] MEDS: PATCH REMOVAL. MC SCH (21:00)
[2020-04-30] MEDS: APIXABAN 5 MG TABLET. PO SCH (21:21)
[2020-04-30] MEDS: LITHIUM CARBONATE ER 300 MG TABLET.ER PO SCH (21:21)
[2020-04-30] MEDS ORDERED: [UNRECOGNIZED DRUG - OTHER] IV SCH (22:00)
[2020-04-30] MEDS ORDERED: AMINO ACID IV SCH (22:00)
[2020-04-30] MEDS ORDERED: TOTAL PARENTERAL NUTRITION IV SCH (22:00)
[2020-04-30] MEDS ORDERED: DEXTROSE 70% IV SCH (22:00)
[2020-04-30 22:52] VITALS: BP 102/76
[2020-05-01] MEDS: tiZANidine 4 MG TABLET. PO PRN ×2 (01:57→17:45)
[2020-05-01 02:34] VITALS: BP 102/67
[2020-05-01 05:25] LABS: CALCIUM 7.5 mg/dL (8.5-10.1); CREATININE 0.5 mg/dL (0.7-1.3); GFR 175.3; PHOSPHORUS 2.2 mg/dL (2.6-4.7); POTASSIUM 3.9 mmol/L (3.5-5.1)
[2020-05-01 07:00] VITALS: BP 90/67
[2020-05-01] MEDS: INSULIN LISPRO 300 UNITS/3 ML VIAL. SQ SCH ×3 (08:00→17:12)
[2020-05-01] MEDS: LITHIUM CARBONATE ER 300 MG TABLET.ER PO SCH ×2 (08:29→21:12)
[2020-05-01] MEDS: APIXABAN 5 MG TABLET. PO SCH ×2 (08:29→21:13)
[2020-05-01] MEDS: LACTOBACILLUS RHAMNOSUS GG 1 CAPSULE. PO SCH ×2 (08:30→21:12)
[2020-05-01] MEDS: ASPIRIN ENTERIC COATED 81 MG TABLET.DR. PO SCH (08:30)
[2020-05-01] MEDS: PANTOPRAZOLE 40 MG TABLET.DR. PO SCH (08:30)
[2020-05-01] MEDS: LIDOCAINE (700MG/PATCH) PATCH. TP SCH (08:31)
--- NOTE | 2020-05-01 08:52 | PDOC ---
Infectious Disease Note Subjective: Subjective Pt denies any complaints Denies fever, nausea, vomiting, shortness of breath, diarrhea, abdominal pain, rash Otherwise as above Discussed with RN On TPN Vital Signs: Vital Signs Vital Signs Date Time Temp Pulse Resp B/P (MAP) Pulse Ox O2 Delivery O2 Flow Rate FiO2 05/01/20 08:34 66 90/67 05/01/20 07:00 98.2 16 99 Room Air 98.2 Physical Exam: PHYSICAL EXAM General: Thin cachectic male on room air in no acute distress HEENT: Atraumatic, EOMI, Mucous membr. moist/pink Chest wall right central line site looks clean Lungs: Clear to auscultation Heart: Normal S1, Normal S2, No murmurs Abdomen: Normal bowel sounds, Soft, No tenderness Extremities: No cyanosis,Lower ext edema, no warmth Skin: No generalized rashes MSK; generalized weakness Neuro:sleepy but arousable moves all 4 extremities Medications: Inpatient Meds: Current Medications Medications (Trade) Dose Ordered Sig/Edilma Start Time Stop Time Status Last Admin Dose Admin Acetaminophen (Tylenol Supp) 650 mg PRN Q4HRS PRN 04/24/20 08:30 Acetaminophen (Tylenol) 650 mg PRN Q4HRS PRN 04/22/20 23:45 04/23/20 23:44 DC Acetaminophen/ Hydrocodone Bitart (Lortab 5/325) 1 tab PRN Q6HRS PRN 04/25/20 05:00 04/29/20 18:23 1 TAB Albumin Human 100 ml @ 100 mls/hr BID 04/27/20 21:00 04/29/20 11:00 DC 04/29/20 09:02 100 MLS/HR Albuterol Sulfate (Ventolin Neb Soln) 2.5 mg PRN Q4HRS PRN 04/27/20 16:45 UNV Amino Acids/ Glycerin/ Electrolytes 1,000 ml @ 100 mls/hr Q10H 04/23/20 16:45 04/28/20 21:59 DC 04/28/20 13:54 100 MLS/HR Amlodipine Besylate (Norvasc) 10 mg DAILY 04/25/20 09:00 04/29/20 09:02 10 MG Apixaban (Eliquis) 5 mg BID 04/30/20 21:00 05/01/20 08:29 5 MG Aspirin (Ecotrin) 81 mg DAILYWBKFT 04/25/20 08:00 05/01/20 08:30 81 MG Clonazepam (KlonoPIN) 1 mg PRN BID PRN 04/30/20 07:15 Dextrose (Dextrose 50%-Water Syringe) 12.5 gm PRN Q15MIN PRN 04/30/20 17:15 Diphenhydramine HCl (Benadryl) 25 mg 1X ONCE 04/22/20 22:45 04/22/20 22:46 DC 04/22/20 22:39 25 MG Docusate Sodium (Colace) 100 mg PRN BID PRN 04/24/20 08:30 04/25/20 15:59 100 MG Enoxaparin Sodium (Lovenox 60mg Syringe) 60 mg Q12HR 04/23/20 09:00 04/27/20 16:30 DC 04/26/20 20:38 60 MG Fentanyl Citrate (Fentanyl 2ml Vial) 50 mcg PRN Q2HR PRN 04/24/20 18:30 04/27/20 01:36 50 MCG Guaifenesin (Robitussin) 200 mg PRN Q4HRS PRN 04/24/20 08:30 Heparin Sodium (Porcine) (Hep Lock Adult) 500 unit 1X ONCE 04/25/20 15:30 04/25/20 15:31 DC 04/25/20 15:30 500 UNIT Heparin Sodium (Porcine) (Heparin Sodium) 5,000 unit 1X ONCE 04/24/20 15:30 04/24/20 15:37 DC 04/24/20 15:30 5,000 UNIT Heparin Sodium/ Sodium Chloride (HEPARIN for ARTERIAL LINE FLUSH) 1,000 unit 1X ONCE 04/24/20 15:30 04/24/20 15:37 DC 04/24/20 15:30 1,000 UNIT Info (Anti-Coagulation Monitoring By Pharmacy) 1 each PRN DAILY PRN 04/25/20 13:00 04/30/20 11:33 1 EACH Info (Tpn Per Pharmacy) 1 each PRN DAILY PRN 04/28/20 14:45 04/30/20 12:07 1 EACH Insulin Human Lispro (HumaLOG) 0-7 UNITS TIDWMEALS 04/30/20 18:00 04/30/20 17:30 4 UNITS Iodixanol (Visipaque 320) 50 ml STK-MED ONCE 04/24/20 15:48 04/24/20 15:48 DC Lactobacillus Rhamnosus (Culturelle) 1 cap BID 04/25/20 21:00 05/01/20 08:30 1 CAP Lidocaine (Lidoderm) 1 patch DAILY 04/27/20 17:00 05/01/20 08:31 1 PATCH Lidocaine HCl (Buffered Lidocaine 1%) 6 ml 1X ONCE 04/24/20 15:30 04/24/20 15:37 DC 04/24/20 15:30 4 ML Lidocaine/ Epinephrine (LIDOCAINE 1%-EPI 1:100,000 Multi-Dose) 20 ml 1X ONCE 04/24/20 15:30 04/24/20 15:37 DC 04/24/20 15:30 9 ML Lidocaine/ Epinephrine (LIDOCAINE 2%-EPI 1:100,000 multi-dose) 20 ml 1X ONCE 04/25/20 15:30 04/25/20 15:31 DC 04/25/20 15:30 7 ML [place] Carbonate (Lithobid) 300 mg BID 04/30/20 21:00 05/01/20 08:29 300 MG Lorazepam (Ativan Inj) 1 mg PRN Q4HRS PRN 04/22/20 23:45 04/27/20 01:38 1 MG Lorazepam (Ativan) 0.5 mg PRN Q8HRS PRN 04/25/20 05:00 04/30/20 05:27 0.5 MG Magnesium Sulfate 50 ml @ 25 mls/hr ONCE ONCE 04/29/20 19:00 04/29/20 20:59 DC 04/29/20 18:23 25 MLS/HR Magnesium Sulfate/ Dextrose 100 ml @ 100 mls/hr 1X ONCE 04/30/20 15:30 04/30/20 16:29 DC 04/30/20 16:42 100 MLS/HR Midazolam HCl (Versed) 1 mg 1X ONCE 04/24/20 15:30 04/24/20 15:37 DC 04/24/20 15:30 1 MG Miscellaneous (Lidoderm Patch Removal) 1 ea QHS 04/27/20 21:00 04/30/20 21:00 1 EA Morphine Sulfate (Morphine Sulfate) 4 mg PRN Q2HR PRN 04/22/20 23:45 1/13/21 23:44 DC 04/23/20 18:03 4 MG Ondansetron HCl (Zofran Odt) 4 mg PRN Q6HRS PRN 04/27/20 16:45 Ondansetron HCl (Zofran) 4 mg PRN Q4HRS PRN 04/24/20 08:30 04/25/20 16:15 4 MG Oxycodone/ Acetaminophen (Percocet 7.5/ 325) 1 tab PRN Q6HRS PRN 04/27/20 16:45 04/30/20 13:05 1 TAB Pantoprazole Sodium (PROTONIX VIAL for IV PUSH) 40 mg BIDAC 04/23/20 16:30 04/28/20 10:32 DC 04/28/20 09:42 40 MG Pantoprazole Sodium (Protonix) 40 mg DAILYAC 04/29/20 07:30 05/01/20 08:30 40 MG Piperacillin Sod/ Tazobactam Sod 3.375 gm/Sodium Chloride 50 ml @ 100 mls/hr Q6HRS 04/24/20 08:30 04/27/20 08:14 DC 04/27/20 06:09 100 MLS/HR Potassium Bicarbonate (Potassium Effervescent Tablet) 40 meq 1X ONCE 04/30/20 11:15 04/30/20 11:16 DC 04/30/20 15:03 40 MEQ Potassium Chloride/Sodium Chloride 1,000 ml @ 125 mls/hr Q8H ONCE 04/22/20 21:45 04/23/20 05:44 DC 04/22/20 21:46 125 MLS/HR Potassium Chloride/Water 100 ml @ 100 mls/hr Q1H 04/26/20 11:00 04/26/20 12:59 DC 04/26/20 12:27 100 MLS/HR Potassium Phosphate 13.6 mmol/Sodium Chloride 254.5333 ml @ 127.... Q2H 04/29/20 14:00 04/29/20 17:59 DC 04/29/20 15:54 127.267 MLS/HR Potassium Chloride (Klor-Con) 30 meq 1X ONCE 04/25/20 14:00 04/25/20 14:01 DC 04/25/20 15:59 30 MEQ Prochlorperazine Edisylate (Compazine) 10 mg 1X ONCE 04/22/20 21:45 04/22/20 21:46 DC 04/22/20 21:45 10 MG Ringer's Solution 1,000 ml @ 125 mls/hr 1X ONCE 04/22/20 23:45 04/23/20 07:44 DC 04/23/20 03:29 125 MLS/HR Sodium Monofluorophosphate (Fleet Adult) 133 ml PRN DAILY PRN 04/24/20 08:30 Sodium Acetate 70 meq/Potassium Acetate 50 meq/ Potassium Phosphate 27.2 mmol/Magnesium Sulfate 22 meq/ Calcium Gluconate 10 meq/ Multivitamins 5 ml/Zinc/Copper/ Manganese/ Selenium 1 ml/ Total Parenteral Nutrition/Amino Acids/Dextrose/ Fat Emulsion Intravenous 1,512 ml @ 63 mls/hr TPN CONT 04/29/20 22:00 04/30/20 21:59 DC 04/29/20 22:01 63 MLS/HR Sodium Acetate 70 meq/Potassium Acetate 50 meq/ Potassium Phosphate 32 mmol/ Magnesium Sulfate 22 meq/Calcium Gluconate 10 meq/ Multivitamins 5 ml/Zinc/Copper/ Manganese/ Selenium 1 ml/ Total Parenteral Nutrition/Amino Acids/Dextrose/ Fat Emulsion Intravenous 1,512 ml @ 63 mls/hr TPN CONT 04/30/20 22:00 05/01/20 21:59 04/30/20 21:26 63 MLS/HR Sodium Acetate 70 meq/Potassium Chloride 50 meq/ Potassium Phosphate 13.6 mmol/Magnesium Sulfate 10 meq/ Calcium Gluconate 10 meq/ Multivitamins 5 ml/Zinc/Copper/ Manganese/ Selenium 1 ml/ Total Parenteral Nutrition/Amino Acids/Dextrose/ Fat Emulsion Intravenous 1,512 ml @ 63 mls/hr TPN CONT 04/28/20 22:00 04/29/20 21:59 DC 04/28/20 22:28 63 MLS/HR Sodium Chloride 1,000 ml @ 1,000 mls/hr 1X ONCE 04/26/20 15:15 04/26/20 16:14 DC 04/26/20 15:15 1,000 MLS/HR Sodium Chloride (Normal Saline Flush) 3 ml QSHIFT PRN 04/24/20 08:30 Tizanidine HCl (Zanaflex) 4 mg PRN Q8HRS PRN 04/30/20 15:00 05/01/20 01:57 4 MG Labs: Lab Laboratory Tests Test 04/30/20 11:14 04/30/20 16:53 05/01/20 05:00 05/01/20 07:25 Glucose (Fingerstick) 181 mg/dL (70-99) 242 mg/dL (70-99) 153 mg/dL (70-99) Sodium Level 139 mmol/L (136-145) Potassium Level 3.9 mmol/L (3.5-5.1) Chloride Level 106 mmol/L (98-107) Carbon Dioxide Level 28 mmol/L (21-32) Anion Gap 5 (6-14) Blood Urea Nitrogen 8 mg/dL (8-26) Creatinine 0.5 mg/dL (0.7-1.3) Estimated GFR (Cockcroft-Gault) 175.3 Glucose Level 143 mg/dL (70-99) Calcium Level 7.5 mg/dL (8.5-10.1) Phosphorus Level 2.2 mg/dL (2.6-4.7) Magnesium Level 2.0 mg/dL (1.8-2.4) Micro CT left lower extremity impression: 1. Diffuse left lower extremity subcutaneous edema. No loculated fluid collection to suggest abscess although evaluation is degraded without IV contrast. If persistent clinical concern, follow-up ultrasound can further evaluate. 2. Left total knee arthroplasty. Urine culture negative Blood culture negative Objective: Assessment: Pancytopenia Leukocytosis and lactic acidosis resolved source likely GI;resolved, now leucopenia Nausea and vomiting resolved Diarrhea resolved JAQUAN likely dehydration resolved Left lower extremity extensive DVT status post mechanical thrombectomy and angioplasty of SFV, CFV, PIV, CIV, 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 stiology, possible malignancy Generalized debility Mild troponin elevation demand ischemia On TPN Plan: Plan of Care Monitor off antibiotics at this time F/U EBV Oncology and GI team following Central line tester per GI team Discussed with nursing staff KYLAH DOUGLASS MD May 01, 2020 08:52
--- NOTE | 2020-05-01 10:19 | PDOC ---
Date of Service: DATE: 05/01/20 TIME: 10:14 Subjective: Subjective: Ate breakfast okay, wants to go home. Objective: Vital Signs: Vital Signs Date Time Temp Pulse Resp B/P (MAP) Pulse Ox O2 Delivery O2 Flow Rate FiO2 05/01/20 08:34 66 90/67 05/01/20 07:00 98.2 16 99 Room Air 98.2 Labs: Laboratory Tests Test 04/30/20 11:14 04/30/20 16:53 05/01/20 05:00 05/01/20 07:25 Glucose (Fingerstick) 181 mg/dL 242 mg/dL 153 mg/dL Sodium Level 139 mmol/L Potassium Level 3.9 mmol/L Chloride Level 106 mmol/L Carbon Dioxide Level 28 mmol/L Anion Gap 5 Blood Urea Nitrogen 8 mg/dL Creatinine 0.5 mg/dL Estimated GFR (Cockcroft-Gault) 175.3 Glucose Level 143 mg/dL Calcium Level 7.5 mg/dL Phosphorus Level 2.2 mg/dL Magnesium Level 2.0 mg/dL PE: GEN: NAD - breakfast tray ~80% consumed - scooted down in bed LUNGS: CTAB HEART: RRR ABD: non-tender NEURO/PSYCH: appropriate, flat A/P: Chronic n/v - better S/p LLE thrombectomy, iliac vein stent - on Eliquis and ASA Pancytopenia, low retic count - heme/onc following H/o recurrent lactic acidosis, encephalopathy H/o GERD and pancreatic pseudocysts s/p cystogastrostomy @ [facility] COVID negative 04/23 -- Eating - ?stop TPN? Encouraged PO, continue PPI. Justicifation of Admission Dx: Justifications for Admission: Justification of Admission Dx: Yes Comminuty Aquired Pneumonia: Hemodynamic Instability Acute Renal Failure: RF Can't Be Managed Outpt Sepsis: Altered Mental Status DKA: DKA ADAN PEREZ May 01, 2020 10:19
[2020-05-01 11:00] VITALS: BP 96/69
[2020-05-01] MEDS: ANTI-COAG MONITOR BY PHARMACY. MC PRN (11:15)
--- NOTE | 2020-05-01 11:54 | NUR ---
SANDOVAL following for discharge planning. Spoke with RN and reviewed chart. Coordinated care with [facility] and it will be $80 per day for pt for home TPN if needed. SW following. Addendum: 05/01/20 at 1237 by MICHOACANO NICK Pt will not need TPN on discharge per Dr. Griffiths. SANDOVAL notified [facility]. Discharge plan is home, self-care as pt and family decline HH, palliative care, and SNU.
--- NOTE | 2020-05-01 12:40 | PDOC ---
[employer] PROGRESS NOTE Date of Service DOS: DATE: 05/01/20 TIME: 12:44 Chief Complaint Chief Complaint A/P: Dehydration Abnormal weight loss Nausea vomiting and diarrhea Recurrent left lower extremity DVT - Extensive occlusive left lower extremity deep venous thrombosis. DM2 Bipolar disease Leukocytosis, ACD JAQUAN - vasomotor nephropathy Lactic acidosis Elevated LFTs NSTEMI, type II - Elevated troponin H/o GERD and pancreatic pseudocysts s/p cystogastrostomy @ [facility], weight loss Pelvic lymphadenopathy, uncertain clinical significance, possibly reactive. Recurrent pancreatitis H/o gallstone pancreatitis, pancreatic pseudocysts s/p drainage and necrosectomy at 01/2020 Severe Protein calorie malnutrition Thrombocytopenia, acute Normocytic anemia Leukopenia, acute and likely reactive PLAN ADMITTED GI CONSULT Consult IR for left leg venous thrombolysis. 04-24 nephrology consult vascular surgery following oncology consult ID CONSULT D/C iv zosyn pathology for peripheral smear BLOOD CULTURE Preliminary NO GROWTH AFTER 2 DAYS D/W RN, oncolohy consult pending History of Present Illness History of Present Illness Mr Reyes is a 50 year old male brought in by EMS for nausea, vomiting and diarrhea since 04-22 . His emesis has been brown but denies any blood. Diarrhea is nonbloody nonbilious. Denies any fevers. Was tested for Covid but has not had it yet. Denies any positive contacts but knows people he has not been in contact who tested positive. Denies any fevers, cough. Has a history of pancreatitis and stents placed. He was started on empiric Zosyn. He had mild troponin elevation. For left lower extremity extensive DVT extending to IVC he underwent mechanical thrombectomy and angioplasty of SFV, CFV, EIV and CIV Recently with gallstone pancreatitis in 09/2019 - s/p cholecystectomy then. The next month was admitted w/ strep bacteremia/resp failure - imaging at that time noted pancreatic pseudocysts. Since then, apparently underwent endoscopic drainage of pseudocyst w/ stent and necrosectomy at 01/2020. 04/24: LLE venogram, thrombectomy, Iliac vein stent, tunnelled central line 04/27: APPEARS WEAK, APPETITE FAIR HGB 6.1 TRANSFUSE 1 UNIT PRBC'S 04/28: He has also been noted per his mother, bedside of a prior CVA noted at [facility]. He has lost over 100#, from 240# over a year ago, now with multiple hospitalizations with pancreatitis over the past year. Hb to 7.6 post- transfusion, WBC 2.3, K 3.1 today. Not eating much. Mother requesting parenteral nutrition. 04/29: Patient seen and evaluated. Hemoglobin 7.2, will continue to monitor and transfuse as necessary. S/P mechanical thrombectomy, multifocal angioplasty, and stent placement within external iliac vein. Hem/Onc evaluated patient today and agrees with recommendations for indefinite anticoagulation given significant clot burden. Hypercoagulable work-up to follow, this may be able to complete complete outpatient. Poor appetite and weight loss has been noted, but this is not uncommon for this patient. He has had EGD but never had colonoscopy. Will defer CRC screening to GI. 04/30: Afebrile overnight. Reticulocyte count low Mary level improved magnesium 1.8 potassium 3.3. Eliquis dose increased to 5 mg unclear why he was on 2 5 mg at home. Afebrile. Appetite is better. Complaining of right hip pain though he was able to stand today. Feels better up in chair. Therapy recommending skilled however his mother wants him to go home. Discussed doing hip x-ray and continuing t herapy and likely discharge in the next 24 hours Vitals/I&O Vitals/I&O: Vital Signs Date Time Temp Pulse Resp B/P (MAP) Pulse Ox O2 Delivery O2 Flow Rate FiO2 05/01/20 11:00 98.1 74 18 96/69 (78) 100 Room Air 98.1 I & O 04/30/20 04/30/20 05/01/20 14:55 22:55 06:55 Output Total 0 ml 0 ml Balance 0 ml 0 ml Physical Exam Physical Exam: General: Thin cachectic male on room air in no acute distress HEENT: Atraumatic, EOMI, Mucous membr. moist/pink Chest wall right central line site looks clean Lungs: Clear to auscultation Heart: Normal S1, Normal S2, No murmurs Abdomen: Normal bowel sounds, Soft, No tenderness Extremities: No cyanosis,Lower ext edema, no warmth Skin: No generalized rashes MSK; generalized weakness Neuro:sleepy but arousable moves all 4 extremities General: Alert Heart: Regular rate Lungs: Clear Abdomen: Normal bowel sounds, Soft Extremities: No clubbing, No cyanosis, Other (+1 pitting edema to left lower extremity) Skin: No breakdown Labs Labs: Laboratory Tests Test 04/30/20 16:53 05/01/20 05:00 05/01/20 07:25 05/01/20 11:34 Glucose (Fingerstick) 242 mg/dL (70-99) 153 mg/dL (70-99) 141 mg/dL (70-99) Sodium Level 139 mmol/L (136-145) Potassium Level 3.9 mmol/L (3.5-5.1) Chloride Level 106 mmol/L (98-107) Carbon Dioxide Level 28 mmol/L (21-32) Anion Gap 5 (6-14) Blood Urea Nitrogen 8 mg/dL (8-26) Creatinine 0.5 mg/dL (0.7-1.3) Estimated GFR (Cockcroft-Gault) 175.3 Glucose Level 143 mg/dL (70-99) Calcium Level 7.5 mg/dL (8.5-10.1) Phosphorus Level 2.2 mg/dL (2.6-4.7) Magnesium Level 2.0 mg/dL (1.8-2.4) Assessment and Plan Assessmemt and Plan Problems Medical Problems: (1) Dehydration Status: Acute (2) Nausea vomiting and diarrhea Status: Acute (3) Person under investigation for COVID-19 Status: Acute Comment Review of Relevant I have reviewed the following items blaze (where applicable) has been applied. Medications: Current Medications Medications (Trade) Dose Ordered Sig/Edilma Route PRN Reason Start Time Stop Time Status Last Admin Dose Admin Apixaban (Eliquis) 5 mg BID PO 04/30/20 21:00 05/01/20 08:29 Sodium Acetate 70 meq/Potassium Acetate 50 meq/ Potassium Phosphate 32 mmol/ Magnesium Sulfate 22 meq/Calcium Gluconate 10 meq/ Multivitamins 5 ml/Zinc/Copper/ Manganese/ Selenium 1 ml/ Total Parenteral Nutrition/Amino Acids/Dextrose/ Fat Emulsion Intravenous 1,512 ml @ 63 mls/hr TPN CONT IV 04/30/20 22:00 05/01/20 21:59 04/30/20 21:26 [place] Carbonate (Lithobid) 300 mg BID PO 04/30/20 21:00 05/01/20 08:29 Tizanidine HCl (Zanaflex) 4 mg PRN Q8HRS PRN PO MUSCLE SPASMS 04/30/20 15:00 05/01/20 01:57 Magnesium Sulfate/ Dextrose 100 ml @ 100 mls/hr 1X ONCE IV 04/30/20 15:30 04/30/20 16:29 DC 04/30/20 16:42 Insulin Human Lispro (HumaLOG) 0-7 UNITS TIDWMEALS SQ 04/30/20 18:00 04/30/20 17:30 Justifications for Admission General Conditions Poss tachycardia?: Yes Justification for admission: Patient has tachycardia (> 100 beats per minute) which is not readily corrected by appropriate treatment within 12 to 24 hours. dehydration Other Justification MILAD BUSBY MD May 01, 2020 12:40
[2020-05-01 12:49] LABS: HEMATOCRIT 21.5 % (39.0-53.0); HEMOGLOBIN 7.2 g/dL (13.0-17.5); RED BLOOD COUNT 2.55 x10^6/uL (4.30-5.70); RED CELL DISTRIBUTION WIDTH 16.8 % (11.5-14.5); WHITE BLOOD COUNT 2.3 x10^3/uL (4.0-11.0)
[2020-05-01] MEDS: TPN PER PHARMACY MC PRN (14:25)
--- NOTE | 2020-05-01 14:31 | NUR ---
Pharmacy TPN Dosing Note S: BEARMarcelinaANASTACIA Edouard is a 50 year old M Currently receiving Central Continuous TPN started 04/28/20 B:Pertinent PMH: PANCREATIC CANCER/WEIGHT LOST Height: 5 feet, 7 inches Weight: 61.2 kg Current diet: GI Soft LABS: Sodium: 139 Potassium: 3.9 Chloride: 106 Calcium: 7.5 Corrected Calcium: 9.42 Magnesium: 2.0 CO2: 28 SCr: 0.5 Glucose: 141 Albumin: 1.6 AST: 22 ALT: 12 TPN FORMULA: TPN TYPE: Central Continuous AMINO ACIDS: 60 gm DEXTROSE: 195 gm LIPIDS: 20 gm SODIUM ACETATE: 70 mEq SODIUM PHOSPHATE: 5 mmol POTASSIUM CHLORIDE: 50 mEq POTASSIUM ACETATE: 50 mEq POTASSIUM PHOSPHATE: 32 mmol MAGNESIUM: 22 mEq CALCIUM: 10 mEq MULTIPLE VITAMIN: 5 ml TRACE ELEMENTS: 1 ml(s) TPN PLAN: Add 5 mMol of [place]AP[place]4 due to low phosphorus level. R: Change TPN Will monitor electrolytes, glucose, and tolerance to TPN. Miguel A Hines [facility], 05/01/20 0318
[2020-05-01 15:00] VITALS: BP 105/78
--- NOTE | 2020-05-01 17:05 | RAD ---
Single view pelvis and two-view right hip dated 05/01/2020. No comparison available. Clinical indication: Right groin pain. FINDINGS: AP view pelvis and two-view right hip show normal bony alignment. No displaced fracture. Mild hypertr ophic change of the bilateral hip joint. No periostitis or bone destruction. Spondylotic changes the lower lumbar spine. Vascular stent at the left iliac region. IMPRESSION: 1. No acute radiographic abnormality. 2. Mild bilateral hip DJD. Electronically signed by: Adam Dejesus MD (05/01/2020 5:02 PM) [id number]
[2020-05-01] MEDS: oxyCODONE/APAP 7.5/325 1 TAB TABLET PO PRN (17:45)
[2020-05-01 19:00] VITALS: BP 97/63
[2020-05-01] MEDS: PATCH REMOVAL. MC SCH (21:00)
[2020-05-01] MEDS ORDERED: [UNRECOGNIZED DRUG - OTHER] IV SCH (22:00)
[2020-05-01] MEDS ORDERED: DEXTROSE 70% IV SCH (22:00)
[2020-05-01] MEDS ORDERED: TOTAL PARENTERAL NUTRITION IV SCH (22:00)
[2020-05-01] MEDS ORDERED: AMINO ACID IV SCH (22:00)
[2020-05-01 23:07] VITALS: BP 93/64
[2020-05-02] VITALS (9 sets, daily range): BP systolic 95–105; BP diastolic 62–80
[2020-05-02] MEDS: oxyCODONE/APAP 7.5/325 1 TAB TABLET PO PRN (00:46)
[2020-05-02] MEDS: tiZANidine 4 MG TABLET. PO PRN ×2 (04:06→14:40)
[2020-05-02] MEDS: LORazepam 0.5 MG TABLET PO PRN (04:06)
[2020-05-02] MEDS: PANTOPRAZOLE 40 MG TABLET.DR. PO SCH ×2 (06:17→08:05)
[2020-05-02 06:39] LABS: CALCIUM 7.7 mg/dL (8.5-10.1); CREATININE 0.5 mg/dL (0.7-1.3); GFR 175.3
[2020-05-02 06:51] LABS: BASO % 0 % (0-3); EOS # 0.1 x10^3/uL (0.0-0.7); EOS % 3 % (0-3); HEMATOCRIT 21.1 % (39.0-53.0); LYMPH # 1.3 x10^3/uL (1.0-4.8); LYMPH % 43 % (24-48); MEAN CORPUSCULAR HEMOGLOBIN 28 pg (25-35); MEAN CORPUSCULAR HGB CONC 33 g/dL (31-37); MEAN CORPUSCULAR VOLUME 85 fL (79-100); MONO # 0.4 x10^3/uL (0.0-1.1); MONO % 12 % (0-9); NEUT # 1.3 x10^3/uL (1.8-7.7); NEUT % 42 % (31-73); PLATELET COUNT 93 x10^3/uL (140-400); RED BLOOD COUNT 2.48 x10^6/uL (4.30-5.70); RED CELL DISTRIBUTION WIDTH 17.1 % (11.5-14.5)
[2020-05-02 07:03] LABS: POTASSIUM 4.7 mmol/L (3.5-5.1)
[2020-05-02 07:06] LABS: HEMOGLOBIN 6.9 g/dL (13.0-17.5)
--- NOTE | 2020-05-02 07:17 | NUR ---
pg sent to Dr. Griffiths RE low Hgb.
[2020-05-02] MEDS: INSULIN LISPRO 300 UNITS/3 ML VIAL. SQ SCH ×3 (08:00→16:33)
[2020-05-02] MEDS: APIXABAN 5 MG TABLET. PO SCH (08:04)
[2020-05-02] MEDS: LITHIUM CARBONATE ER 300 MG TABLET.ER PO SCH (08:04)
[2020-05-02] MEDS: LACTOBACILLUS RHAMNOSUS GG 1 CAPSULE. PO SCH (08:04)
[2020-05-02] MEDS: ASPIRIN ENTERIC COATED 81 MG TABLET.DR. PO SCH (08:04)
[2020-05-02] MEDS: LIDOCAINE (700MG/PATCH) PATCH. TP SCH (08:05)
--- NOTE | 2020-05-02 09:04 | PDOC ---
Infectious Disease Note Subjective: Subjective Patient without complaints Vital Signs: Vital Signs Vital Signs Date Time Temp Pulse Resp B/P (MAP) Pulse Ox O2 Delivery O2 Flow Rate FiO2 05/02/20 07:00 96.5 73 18 96/62 (73) 99 Room Air 96.5 Physical Exam: PHYSICAL EXAM General: Thin cachectic male on room air in no acute distress HEENT: Atraumatic, EOMI, Mucous membr. moist/pink Chest wall right central line site looks clean Lungs: Clear to auscultation Heart: Normal S1, Normal S2, No murmurs Abdomen: Normal bowel sounds, Soft, No tenderness Extremities: No cyanosis,Lower ext edema, no warmth Skin: No generalized rashes MSK; generalized weakness Neuro:sleepy but arousable moves all 4 extremities Medications: Inpatient Meds: Current Medications Medications (Trade) Dose Ordered Sig/Edilma Start Time Stop Time Status Last Admin Dose Admin Acetaminophen (Tylenol Supp) 650 mg PRN Q4HRS PRN 04/24/20 08:30 Acetaminophen (Tylenol) 650 mg PRN Q4HRS PRN 04/22/20 23:45 04/23/20 23:44 DC Acetaminophen/ Hydrocodone Bitart (Lortab 5/325) 1 tab PRN Q6HRS PRN 04/25/20 05:00 04/29/20 18:23 1 TAB Albumin Human 100 ml @ 100 mls/hr BID 04/27/20 21:00 04/29/20 11:00 DC 04/29/20 09:02 100 MLS/HR Albuterol Sulfate (Ventolin Neb Soln) 2.5 mg PRN Q4HRS PRN 04/27/20 16:45 UNV Amino Acids/ Glycerin/ Electrolytes 1,000 ml @ 100 mls/hr Q10H 04/23/20 16:45 04/28/20 21:59 DC 04/28/20 13:54 100 MLS/HR Amlodipine Besylate (Norvasc) 10 mg DAILY 04/25/20 09:00 04/29/20 09:02 10 MG Apixaban (Eliquis) 5 mg BID 04/30/20 21:00 05/02/20 08:04 5 MG Aspirin (Ecotrin) 81 mg DAILYWBKFT 04/25/20 08:00 05/02/20 08:04 81 MG Clonazepam (KlonoPIN) 1 mg PRN BID PRN 04/30/20 07:15 Dextrose (Dextrose 50%-Water Syringe) 12.5 gm PRN Q15MIN PRN 04/30/20 17:15 Diphenhydramine HCl (Benadryl) 25 mg 1X ONCE 04/22/20 22:45 04/22/20 22:46 DC 04/22/20 22:39 25 MG Docusate Sodium (Colace) 100 mg PRN BID PRN 04/24/20 08:30 04/25/20 15:59 100 MG Enoxaparin Sodium (Lovenox 60mg Syringe) 60 mg Q12HR 04/23/20 09:00 04/27/20 16:30 DC 04/26/20 20:38 60 MG Fentanyl Citrate (Fentanyl 2ml Vial) 50 mcg PRN Q2HR PRN 04/24/20 18:30 04/27/20 01:36 50 MCG Guaifenesin (Robitussin) 200 mg PRN Q4HRS PRN 04/24/20 08:30 Heparin Sodium (Porcine) (Hep Lock Adult) 500 unit 1X ONCE 04/25/20 15:30 04/25/20 15:31 DC 04/25/20 15:30 500 UNIT Heparin Sodium (Porcine) (Heparin Sodium) 5,000 unit 1X ONCE 04/24/20 15:30 04/24/20 15:37 DC 04/24/20 15:30 5,000 UNIT Heparin Sodium/ Sodium Chloride (HEPARIN for ARTERIAL LINE FLUSH) 1,000 unit 1X ONCE 04/24/20 15:30 04/24/20 15:37 DC 04/24/20 15:30 1,000 UNIT Info (Anti-Coagulation Monitoring By Pharmacy) 1 each PRN DAILY PRN 04/25/20 13:00 05/01/20 11:15 1 EACH Info (Tpn Per Pharmacy) 1 each PRN DAILY PRN 04/28/20 14:45 05/01/20 14:25 1 EACH Insulin Human Lispro (HumaLOG) 0-7 UNITS TIDWMEALS 04/30/20 18:00 05/01/20 17:12 4 UNITS Iodixanol (Visipaque 320) 50 ml STK-MED ONCE 04/24/20 15:48 04/24/20 15:48 DC Lactobacillus Rhamnosus (Culturelle) 1 cap BID 04/25/20 21:00 05/02/20 08:04 1 CAP Lidocaine (Lidoderm) 1 patch DAILY 04/27/20 17:00 05/02/20 08:05 1 PATCH Lidocaine HCl (Buffered Lidocaine 1%) 6 ml 1X ONCE 04/24/20 15:30 04/24/20 15:37 DC 04/24/20 15:30 4 ML Lidocaine/ Epinephrine (LIDOCAINE 1%-EPI 1:100,000 Multi-Dose) 20 ml 1X ONCE 04/24/20 15:30 04/24/20 15:37 DC 04/24/20 15:30 9 ML Lidocaine/ Epinephrine (LIDOCAINE 2%-EPI 1:100,000 multi-dose) 20 ml 1X ONCE 04/25/20 15:30 04/25/20 15:31 DC 04/25/20 15:30 7 ML [place] Carbonate (Lithobid) 300 mg BID 04/30/20 21:00 05/02/20 08:04 300 MG Lorazepam (Ativan Inj) 1 mg PRN Q4HRS PRN 04/22/20 23:45 04/27/20 01:38 1 MG Lorazepam (Ativan) 0.5 mg PRN Q8HRS PRN 04/25/20 05:00 05/02/20 04:06 0.5 MG Magnesium Sulfate 50 ml @ 25 mls/hr ONCE ONCE 04/29/20 19:00 04/29/20 20:59 DC 04/29/20 18:23 25 MLS/HR Magnesium Sulfate/ Dextrose 100 ml @ 100 mls/hr 1X ONCE 04/30/20 15:30 04/30/20 16:29 DC 04/30/20 16:42 100 MLS/HR Midazolam HCl (Versed) 1 mg 1X ONCE 04/24/20 15:30 04/24/20 15:37 DC 04/24/20 15:30 1 MG Miscellaneous (Lidoderm Patch Removal) 1 ea QHS 04/27/20 21:00 05/01/20 21:00 1 EA Morphine Sulfate (Morphine Sulfate) 4 mg PRN Q2HR PRN 04/22/20 23:45 04/23/20 23:44 DC 04/23/20 18:03 4 MG Ondansetron HCl (Zofran Odt) 4 mg PRN Q6HRS PRN 04/27/20 16:45 Ondansetron HCl (Zofran) 4 mg PRN Q4HRS PRN 04/24/20 08:30 04/25/20 16:15 4 MG Oxycodone/ Acetaminophen (Percocet 7.5/ 325) 1 tab PRN Q6HRS PRN 04/27/20 16:45 05/02/20 00:46 1 TAB Pantoprazole Sodium (PROTONIX VIAL for IV PUSH) 40 mg BIDAC 04/23/20 16:30 04/28/20 10:32 DC 04/28/20 09:42 40 MG Pantoprazole Sodium (Protonix) 40 mg DAILYAC 04/29/20 07:30 05/02/20 08:05 40 MG Piperacillin Sod/ Tazobactam Sod 3.375 gm/Sodium Chloride 50 ml @ 100 mls/hr Q6HRS 04/24/20 08:30 04/27/20 08:14 DC 04/27/20 06:09 100 MLS/HR Potassium Bicarbonate (Potassium Effervescent Tablet) 40 meq 1X ONCE 04/30/20 11:15 04/30/20 11:16 DC 04/30/20 15:03 40 MEQ Potassium Chloride/Sodium Chloride 1,000 ml @ 125 mls/hr Q8H ONCE 04/22/20 21:45 04/23/20 05:44 DC 04/22/20 21:46 125 MLS/HR Potassium Chloride/Water 100 ml @ 100 mls/hr Q1H 04/26/20 11:00 04/26/20 12:59 DC 04/26/20 12:27 100 MLS/HR Potassium Phosphate 13.6 mmol/Sodium Chloride 254.5333 ml @ 127.... Q2H 04/29/20 14:00 04/29/20 17:59 DC 04/29/20 15:54 127.267 MLS/HR Potassium Chloride (Klor-Con) 30 meq 1X ONCE 04/25/20 14:00 04/25/20 14:01 DC 04/25/20 15:59 30 MEQ Prochlorperazine Edisylate (Compazine) 10 mg 1X ONCE 04/22/20 21:45 04/22/20 21:46 DC 04/22/20 21:45 10 MG Ringer's Solution 1,000 ml @ 125 mls/hr 1X ONCE 04/22/20 23:45 04/23/20 07:44 DC 04/23/20 03:29 125 MLS/HR Sodium Monofluorophosphate (Fleet Adult) 133 ml PRN DAILY PRN 04/24/20 08:30 Sodium Acetate 70 meq/Potassium Acetate 50 meq/ Potassium Phosphate 27.2 mmol/Magnesium Sulfate 22 meq/ Calcium Gluconate 10 meq/ Multivitamins 5 ml/Zinc/Copper/ Manganese/ Selenium 1 ml/ Total Parenteral Nutrition/Amino Acids/Dextrose/ Fat Emulsion Intravenous 1,512 ml @ 63 mls/hr TPN CONT 04/29/20 22:00 04/30/20 21:59 DC 04/29/20 22:01 63 MLS/HR Sodium Acetate 70 meq/Potassium Acetate 50 meq/ Potassium Phosphate 32 mmol/ Magnesium Sulfate 22 meq/ Multivitamins 5 ml/Zinc/Copper/ Manganese/ Selenium 1 ml/ Sodium Phosphate 5 mmol/Total Parenteral Nutrition/Amino Acids/Dextrose/ Fat Emulsion Intravenous 1,512 ml @ 63 mls/hr TPN CONT 05/01/20 22:00 05/02/20 21:59 05/01/20 23:04 63 MLS/HR Sodium Acetate 70 meq/Potassium Acetate 50 meq/ Potassium Phosphate 32 mmol/ Magnesium Sulfate 22 meq/Calcium Gluconate 10 meq/ Multivitamins 5 ml/Zinc/Copper/ Manganese/ Selenium 1 ml/ Total Parenteral Nutrition/Amino Acids/Dextrose/ Fat Emulsion Intravenous 1,512 ml @ 63 mls/hr TPN CONT 04/30/20 22:00 05/01/20 14:27 DC 04/30/20 21:26 63 MLS/HR Sodium Acetate 70 meq/Potassium Chloride 50 meq/ Potassium Phosphate 13.6 mmol/Magnesium Sulfate 10 meq/ Calcium Gluconate 10 meq/ Multivitamins 5 ml/Zinc/Copper/ Manganese/ Selenium 1 ml/ Total Parenteral Nutrition/Amino Acids/Dextrose/ Fat Emulsion Intravenous 1,512 ml @ 63 mls/hr TPN CONT 04/28/20 22:00 04/29/20 21:59 DC 04/28/20 22:28 63 MLS/HR Sodium Chloride 1,000 ml @ 1,000 mls/hr 1X ONCE 04/26/20 15:15 04/26/20 16:14 DC 04/26/20 15:15 1,000 MLS/HR Sodium Chloride (Normal Saline Flush) 3 ml QSHIFT PRN 04/24/20 08:30 Tizanidine HCl (Zanaflex) 4 mg PRN Q8HRS PRN 04/30/20 15:00 05/02/20 04:06 4 MG Labs: Lab Laboratory Tests Test 05/01/20 11:00 05/01/20 11:34 05/01/20 16:29 05/01/20 21:12 White Blood Count 2.3 x10^3/uL (4.0-11.0) Red Blood Count 2.55 x10^6/uL (4.30-5.70) Hemoglobin 7.2 g/dL (13.0-17.5) Hematocrit 21.5 % (39.0-53.0) Mean Corpuscular Volume 84 fL (79-100) Mean Corpuscular Hemoglobin 28 pg (25-35) Mean Corpuscular Hemoglobin Concent 34 g/dL (31-37) Red Cell Distribution Width 16.8 % (11.5-14.5) Platelet Count 82 x10^3/uL (140-400) Glucose (Fingerstick) 141 mg/dL (70-99) 200 mg/dL (70-99) 154 mg/dL (70-99) Test 05/02/20 06:20 White Blood Count 3.0 x10^3/uL (4.0-11.0) Red Blood Count 2.48 x10^6/uL (4.30-5.70) Hemoglobin 6.9 g/dL (13.0-17.5) Hematocrit 21.1 % (39.0-53.0) Mean Corpuscular Volume 85 fL (79-100) Mean Corpuscular Hemoglobin 28 pg (25-35) Mean Corpuscular Hemoglobin Concent 33 g/dL (31-37) Red Cell Distribution Width 17.1 % (11.5-14.5) Platelet Count 93 x10^3/uL (140-400) Neutrophils (%) (Auto) 42 % (31-73) Lymphocytes (%) (Auto) 43 % (24-48) Monocytes (%) (Auto) 12 % (0-9) Eosinophils (%) (Auto) 3 % (0-3) Basophils (%) (Auto) 0 % (0-3) Neutrophils # (Auto) 1.3 x10^3/uL (1.8-7.7) Lymphocytes # (Auto) 1.3 x10^3/uL (1.0-4.8) Monocytes # (Auto) 0.4 x10^3/uL (0.0-1.1) Eosinophils # (Auto) 0.1 x10^3/uL (0.0-0.7) Basophils # (Auto) 0.0 x10^3/uL (0.0-0.2) Sodium Level 139 mmol/L (136-145) Potassium Level 4.7 mmol/L (3.5-5.1) Chloride Level 107 mmol/L (98-107) Carbon Dioxide Level 27 mmol/L (21-32) Anion Gap 5 (6-14) Blood Urea Nitrogen 9 mg/dL (8-26) Creatinine 0.5 mg/dL (0.7-1.3) Estimated GFR (Cockcroft-Gault) 175.3 Glucose Level 131 mg/dL (70-99) Calcium Level 7.7 mg/dL (8.5-10.1) Micro CT left lower extremity impression: 1. Diffuse left lower extremity subcutaneous edema. No loculated fluid collection to suggest abscess although evaluation is degraded without IV contrast. If persistent clinical concern, follow-up ultrasound can further evaluate. 2. Left total knee arthroplasty. Urine culture negative Blood culture negative Objective: Assessment: Pancytopenia Leukocytosis and lactic acidosis resolved source likely GI;resolved, now leucopenia Nausea and vomiting resolved Diarrhea resolved JAQUAN likely dehydration resolved Left lower extremity extensive DVT status post mechanical thrombectomy and angioplasty of SFV, CFV, PIV, CIV, 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
--- NOTE | 2020-05-02 09:37 | PDOC ---
Date of Service: DATE: 05/02/20 TIME: 09:29 Subjective: Subjective: Says he ate biscuits and gravy and eggs for breakfast. Denies n/v and abd pain. Wants to know what the plan is. Objective: Objective: Remains on TPN. Vital Signs: Vital Signs Date Time Temp Pulse Resp B/P (MAP) Pulse Ox O2 Delivery O2 Flow Rate FiO2 05/02/20 07:00 96.5 73 18 96/62 (73) 99 Room Air 96.5 Labs: Laboratory Tests Test 05/01/20 11:00 05/01/20 11:34 05/01/20 16:29 05/01/20 21:12 White Blood Count 2.3 x10^3/uL Red Blood Count 2.55 x10^6/uL Hemoglobin 7.2 g/dL Hematocrit 21.5 % Mean Corpuscular Volume 84 fL Mean Corpuscular Hemoglobin 28 pg Mean Corpuscular Hemoglobin Concent 34 g/dL Red Cell Distribution Width 16.8 % Platelet Count 82 x10^3/uL Glucose (Fingerstick) 141 mg/dL 200 mg/dL 154 mg/dL Test 05/02/20 06:20 White Blood Count 3.0 x10^3/uL Red Blood Count 2.48 x10^6/uL Hemoglobin 6.9 g/dL Hematocrit 21.1 % Mean Corpuscular Volume 85 fL Mean Corpuscular Hemoglobin 28 pg Mean Corpuscular Hemoglobin Concent 33 g/dL Red Cell Distribution Width 17.1 % Platelet Count 93 x10^3/uL Neutrophils (%) (Auto) 42 % Lymphocytes (%) (Auto) 43 % Monocytes (%) (Auto) 12 % Eosinophils (%) (Auto) 3 % Basophils (%) (Auto) 0 % Neutrophils # (Auto) 1.3 x10^3/uL Lymphocytes # (Auto) 1.3 x10^3/uL Monocytes # (Auto) 0.4 x10^3/uL Eosinophils # (Auto) 0.1 x10^3/uL Basophils # (Auto) 0.0 x10^3/uL Sodium Level 139 mmol/L Potassium Level 4.7 mmol/L Chloride Level 107 mmol/L Carbon Dioxide Level 27 mmol/L Anion Gap 5 Blood Urea Nitrogen 9 mg/dL Creatinine 0.5 mg/dL Estimated GFR (Cockcroft-Gault) 175.3 Glucose Level 131 mg/dL Calcium Level 7.7 mg/dL Imaging: Hip/Pelvis X-Ray 05/01 IMPRESSION: 1. No acute radiographic abnormality. 2. Mild bilateral hip DJD. PE: GEN: NAD - flat in bed eating candy LUNGS: CTAB HEART: RRR ABD: soft, non-tender NEURO/PSYCH: A & O 3 A/P: N/v - resolved - on PPI S/p LLE thrombectomy, iliac vein stent - on Eliquis and ASA Pancytopenia - Hgb to 6.9 w/o obvious bleeding - another transfusion ordered H/o GERD and pancreatic pseudocysts COVID negative 04/23 -- DC soon? Consider outpt scopes down the road. Justicifation of Admission Dx: Justifications for Admission: Justification of Admission Dx: Yes Comminuty Aquired Pneumonia: Hemodynamic Instability Acute Renal Failure: RF Can't Be Managed Outpt Sepsis: Altered Mental Status DKA: DKA ADAN PEREZ May 02, 2020 09:37
--- NOTE | 2020-05-02 09:47 | NUR ---
SW following. Discussed with RN, pt from home, room air, regular diet. Pt is not going to need TPN at discharge. Pt getting blood today. Possible discharge home after hgn rechecked. Pt and family declining all services at discharge. Pt is a high risk readmission. SW will continue to follow.
--- NOTE | 2020-05-02 11:19 | PDOC ---
[employer] PROGRESS NOTE Date of Service DOS: DATE: 05/02/20 TIME: 11:18 Chief Complaint Chief Complaint A/P: Dehydration Abnormal weight loss Nausea vomiting and diarrhea Recurrent left lower extremity DVT - Extensive occlusive left lower extremity deep venous thrombosis. DM2 Bipolar disease Leukocytosis, ACD JAQUAN - vasomotor nephropathy Lactic acidosis Elevated LFTs NSTEMI, type II - Elevated troponin H/o GERD and pancreatic pseudocysts s/p cystogastrostomy @ , weight loss Pelvic lymphadenopathy, uncertain clinical significance, possibly reactive. Recurrent pancreatitis H/o gallstone pancreatitis, pancreatic pseudocysts s/p drainage and necrosectomy at 01/2020 Severe Protein calorie malnutrition Thrombocytopenia, acute Normocytic anemia - will need 1u PRBC Leukopenia, acute and likely reactive PLAN ADMITTED GI CONSULT Consult IR for left leg venous thrombolysis. 04-24 nephrology consult vascular surgery following oncology consult ID CONSULT D/C iv zosyn pathology for peripheral smear BLOOD CULTURE Preliminary NO GROWTH AFTER 2 DAYS D/W RN History of Present Illness History of Present Illness Mr Reyes is a 50 year old male brought in by EMS for nausea, vomiting and diarrhea since 04-22 . His emesis has been brown but denies any blood. Diarrhea is nonbloody nonbilious. Denies any fevers. Was tested for Covid but has not had it yet. Denies any positive contacts but knows people he has not been in contact who tested positive. Denies any fevers, cough. Has a history of pancreatitis and stents placed. He was started on empiric Zosyn. He had mild troponin elevation. For left lower extremity extensive DVT extending to IVC he underwent mechanical thrombectomy and angioplasty of SFV, CFV, EIV and CIV Recently with gallstone pancreatitis in 09/2019 - s/p cholecystectomy then. The next month was admitted w/ strep bacteremia/resp failure - imaging at that time noted pancreatic pseudocysts. Since then, apparently underwent endoscopic drainage of pseudocyst w/ stent and necrosectomy at 01/2020. 04/24: LLE venogram, thrombectomy, Iliac vein stent, tunnelled central line 04/27: APPEARS WEAK, APPETITE FAIR HGB 6.1 TRANSFUSE 1 UNIT PRBC'S 04/28: He has also been noted per his mother, bedside of a prior CVA noted at [facility]. He has lost over 100#, from 240# over a year ago, now with multiple hospitalizations with pancreatitis over the past year. Hb to 7.6 post- transfusion, WBC 2.3, K 3.1 today. Not eating much. Mother requesting parenteral nutrition. 04/29: Patient seen and evaluated. Hemoglobin 7.2, will continue to monitor and transfuse as necessary. S/P mechanical thrombectomy, multifocal angioplasty, and stent placement within external iliac vein. Hem/Onc evaluated patient today and agrees with recommendations for indefinite anticoagulation given significant clot burden. Hypercoagulable work-up to follow, this may be able to complete complete outpatient. Poor appetite and weight loss has been noted, but this is not uncommon for this patient. He has had EGD but never had colonoscopy. Will defer CRC screening to GI. 04/30: Afebrile overnight. Reticulocyte count low [place] level improved magnesium 1.8 potassium 3.3. Eliquis dose increased to 5 mg unclear why he was on 2 5 mg at home. 05/01: Afebrile. Appetite is better. Complaining of right hip pain though he was able to stand today. Feels better up in chair. Therapy recommending skilled however his mother wants him to go home. Discussed doing hip x-ray and continuing therapy and likely discharge in the next 24 hours Afebrile. Right hip x-ray with mild DJD. Hb 6.9. Feeling weak. Still asking to go home. Vitals/I&O Vitals/I&O: Vital Signs Date Time Temp Pulse Resp B/P (MAP) Pulse Ox O2 Delivery O2 Flow Rate FiO2 05/02/20 11:00 98.3 93 18 100/69 (79) 90 Room Air 98.3 I & O 05/01/20 05/01/20 05/02/20 15:00 23:00 07:00 Intake Total 180 ml 240 ml Output Total 400 ml Balance -220 ml 240 ml Physical Exam Physical Exam: General: Thin cachectic male on room air in no acute distress HEENT: Atraumatic, EOMI, Mucous membr. moist/pink Chest wall right central line site looks clean Lungs: Clear to auscultation Heart: Normal S1, Normal S2, No murmurs Abdomen: Normal bowel sounds, Soft, No tenderness Extremities: No cyanosis,Lower ext edema, no warmth Skin: No generalized rashes MSK; generalized weakness Neuro:sleepy but arousable moves all 4 extremities General: Alert Heart: Regular rate Lungs: Clear Abdomen: Normal bowel sounds, Soft Extremities: No clubbing, No cyanosis, Other (+1 pitting edema to left lower extremity) Skin: No breakdown Labs Labs: Laboratory Tests Test 05/01/20 11:34 05/01/20 16:29 05/01/20 21:12 05/02/20 06:20 Glucose (Fingerstick) 141 mg/dL (70-99) 200 mg/dL (70-99) 154 mg/dL (70-99) White Blood Count 3.0 x10^3/uL (4.0-11.0) Red Blood Count 2.48 x10^6/uL (4.30-5.70) Hemoglobin 6.9 g/dL (13.0-17.5) Hematocrit 21.1 % (39.0-53.0) Mean Corpuscular Volume 85 fL (79-100) Mean Corpuscular Hemoglobin 28 pg (25-35) Mean Corpuscular Hemoglobin Concent 33 g/dL (31-37) Red Cell Distribution Width 17.1 % (11.5-14.5) Platelet Count 93 x10^3/uL (140-400) Neutrophils (%) (Auto) 42 % (31-73) Lymphocytes (%) (Auto) 43 % (24-48) Monocytes (%) (Auto) 12 % (0-9) Eosinophils (%) (Auto) 3 % (0-3) Basophils (%) (Auto) 0 % (0-3) Neutrophils # (Auto) 1.3 x10^3/uL (1.8-7.7) Lymphocytes # (Auto) 1.3 x10^3/uL (1.0-4.8) Monocytes # (Auto) 0.4 x10^3/uL (0.0-1.1) Eosinophils # (Auto) 0.1 x10^3/uL (0.0-0.7) Basophils # (Auto) 0.0 x10^3/uL (0.0-0.2) Sodium Level 139 mmol/L (136-145) Potassium Level 4.7 mmol/L (3.5-5.1) Chloride Level 107 mmol/L (98-107) Carbon Dioxide Level 27 mmol/L (21-32) Anion Gap 5 (6-14) Blood Urea Nitrogen 9 mg/dL (8-26) Creatinine 0.5 mg/dL (0.7-1.3) Estimated GFR (Cockcroft-Gault) 175.3 Glucose Level 131 mg/dL (70-99) Calcium Level 7.7 mg/dL (8.5-10.1) Assessment and Plan Assessmemt and Plan Problems Medical Problems: (1) Dehydration Status: Acute (2) Nausea vomiting and diarrhea Status: Acute (3) Person under investigation for COVID-19 Status: Acute Comment Review of Relevant I have reviewed the following items blaze (where applicable) has been applied. Medications: Current Medications Medications (Trade) Dose Ordered Sig/Edilma Route PRN Reason Start Time Stop Time Status Last Admin Dose Admin Sodium Acetate 70 meq/Potassium Acetate 50 meq/ Potassium Phosphate 32 mmol/ Magnesium Sulfate 22 meq/ Multivitamins 5 ml/Zinc/Copper/ Manganese/ Selenium 1 ml/ Sodium Phosphate 5 mmol/Total Parenteral Nutrition/Amino Acids/Dextrose/ Fat Emulsion Intravenous 1,512 ml @ 63 mls/hr TPN CONT IV 05/01/20 22:00 05/02/20 21:59 05/01/20 23:04 Justifications for Admission General Conditions Poss tachycardia?: Yes Justification for admission: Patient has tachycardia (> 100 beats per minute) which is not readily corrected by appropriate treatment within 12 to 24 hours. dehydration Other Justification MILAD BUSBY MD May 02, 2020 11:19
[2020-05-02] MEDS ORDERED: APIX5TAB PO (13:19)
[2020-05-02] MEDS ORDERED: PANT40TA77 PO (13:19)
--- NOTE | 2020-05-02 13:22 | SNU/HH DC ---
DISCHARGE WITH HOME HEALTH DISCHARGE INFORMATION: Discharge Date: May 02, 2020 Final Diagnosis: Problems Medical Problems: (1) Dehydration Status: Acute (2) Nausea vomiting and diarrhea Status: Acute (3) Person under investigation for COVID-19 Status: Acute Condition on Discharge: Stable CODE STATUS: Code Status: Full HOME HEALTH: Face to Face: I certify this patient is under my care and that I, or a nurse practitioner or physician's front end assistant working with me, had a face to face encounter that meets the physician face to face encounter requirements with this patient on 05/02. Medical Complications: DJD, Other (Bipolar disorder) Intermediate For: Assess/Skilled Observatio, Medication Management, Pain Management RN For Eval/Treatment: Yes Physical Therapy For: Evalulation/Treatment Occupational Therapy For: Evaluation/Treatment Pt Meets Homebound Status: Unsteady balance w/ amb,, Psychological condition POST DISCHARGE ORDERS: Activity Instructions for Disc: No restrictions, Resume previous activity, Activity as tolerated Weight Bearing Status after Di: No restrictions, Full weight bearing, As tolerated Bathing Instructions: No Tub Bath until see DIET AFTER DISCHARGE: Regular Wound/Incision Care: No wound care needed CHECKS AFTER DISCHARGE: Checks after discharge: Check blood press - daily, Check blood sugar, ac/hs, Check your Temp as needed Comment: attempted PICC site TREATMENT/EQUIPMENT ORDERS: Adaptive Equipment Issued: None CERTIFICATION STATEMENT: Certification Statement: Certification Statement: Based on the above finding, I certify that this patient is confined to the home and needs intermittent group home care, physical therapy and/or speech therapy, or continues to need occupational therapy.~ This patient is under my care, and I have initiated the establishment of the plan of care.~ This patient will be followed by myself or a community physician who will periodically review the plan of care. Home Meds Active Scripts Pantoprazole Sodium (PANTOPRAZOLE SODIUM ) 40 Mg Tablet., 40 MG PO DAILYAC for Gastritis for 30 Days, #30 TAB.SR 5 Refills Prov:MILAD BUSBY MD 05/02/20 Apixaban (ELIQUIS) 5 Mg Tablet, 5 MG PO BID for DVT for 30 Days, #60 TAB 5 Refills Prov:MILAD BUSBY MD 05/02/20 Albuterol Sulfate (Proair Hfa) 8.5 Gm Hfa.aer.ad, 2.5 MG NEB PRN Q4HRS PRN for WHEEZING for 14 Days, #1 INHALER Prov:JAMAL MORRIS MD 09/16/19 Reported Medications Oxycodone/Apap 7.5-325 (PERCOCET 7.5-325 MG TABLET ) 1 Each Tablet, 1 TAB PO PRN Q6HRS PRN for PAIN, TAB 0 Refills 04/16/20 Ondansetron Hcl (ZOFRAN) 4 Mg Tablet, 1 TAB PO Q6HRS for nausea, #20 TAB 04/16/20 Lidocaine (Lidocaine PATCH ) 1 Each Adh..patch, 1 EACH TP DAILY for FOR LOCAL PAIN, PATCH REMOVE AFTER 12 HOURS 03/12/19 Clonazepam (CLONAZEPAM) 1 Mg Tablet, 1 MG PO BID for FOR ANXIETY, TAB 03/12/19 [place] Carbonate (LITHIUM CARBONATE) 300 Mg Tablet, 1 TAB PO BID for BIPOLAR, #60 TAB 1 Refill 08/08/18 Tizanidine Hcl (ZANAFLEX) 4 Mg Capsule, 1 CAP PO TID PRN for MUSCLE SPASTICITY, #90 CAP 08/25/15 Discontinued Reported Medications Apixaban (ELIQUIS) 2.5 Mg Tablet, PO unk for thin the blood, TAB 04/16/20 MILAD BUSBY MD May 02, 2020 13:22
[2020-05-02] MEDS: HYDROcodone/APAP 5/325MG 1 TAB TABLET PO PRN (14:40)
[2020-05-02 16:18] LABS: HEMATOCRIT 23.8 % (39.0-53.0); HEMOGLOBIN 7.9 g/dL (13.0-17.5); RED BLOOD COUNT 2.77 x10^6/uL (4.30-5.70); RED CELL DISTRIBUTION WIDTH 16.3 % (11.5-14.5); WHITE BLOOD COUNT 3.5 x10^3/uL (4.0-11.0)
--- NOTE | 2020-05-02 18:41 | NUR ---
pt discharged home with family. meds and follow up reviewed. power picc to right chest removed, cath intact. scripts for zofran, protonix, and proair inhaler called to [facility] per mother request. pt stable upon DC
--- NOTE | 2020-05-03 07:28 | PDOC3 ---
Discharge Summary Visit Information Date of Admission: Apr 22, 2020 Date of Discharge: May 02, 2020 Admitting Diagnosis: LLE DVT Final Diagnosis Problems Medical Problems: (1) Dehydration Status: Acute (2) Nausea vomiting and diarrhea Status: Acute (3) Person under investigation for COVID-19 Status: Acute Brief Hospital Course Allergies Allergies Coded Allergies Type Severity Reaction Last Updated Verified daptomycin Allergy Intermediate chills, nausea 08/09/19 Yes ketamine Allergy Intermediate 09/13/19 Yes Vital Signs Vital Signs Date Time Temp Pulse Resp B/P (MAP) Pulse Ox O2 Delivery O2 Flow Rate FiO2 05/02/20 16:08 99.0 96 18 95/72 99.0 05/02/20 14:58 100 Room Air 05/02/20 14:40 2.0 Lab Results Laboratory Tests Test 05/01/20 07:25 05/01/20 11:00 05/01/20 11:34 05/01/20 16:29 Glucose (Fingerstick) 153 mg/dL (70-99) 141 mg/dL (70-99) 200 mg/dL (70-99) White Blood Count 2.3 x10^3/uL (4.0-11.0) Red Blood Count 2.55 x10^6/uL (4.30-5.70) Hemoglobin 7.2 g/dL (13.0-17.5) Hematocrit 21.5 % (39.0-53.0) Mean Corpuscular Volume 84 fL (79-100) Mean Corpuscular Hemoglobin 28 pg (25-35) Mean Corpuscular Hemoglobin Concent 34 g/dL (31-37) Red Cell Distribution Width 16.8 % (11.5-14.5) Platelet Count 82 x10^3/uL (140-400) Test 05/01/20 21:12 05/02/20 06:20 05/02/20 12:06 05/02/20 16:08 Glucose (Fingerstick) 154 mg/dL (70-99) 212 mg/dL (70-99) 112 mg/dL (70-99) White Blood Count 3.0 x10^3/uL (4.0-11.0) Red Blood Count 2.48 x10^6/uL (4.30-5.70) Hemoglobin 6.9 g/dL (13.0-17.5) Hematocrit 21.1 % (39.0-53.0) Mean Corpuscular Volume 85 fL (79-100) Mean Corpuscular Hemoglobin 28 pg (25-35) Mean Corpuscular Hemoglobin Concent 33 g/dL (31-37) Red Cell Distribution Width 17.1 % (11.5-14.5) Platelet Count 93 x10^3/uL (140-400) Neutrophils (%) (Auto) 42 % (31-73) Lymphocytes (%) (Auto) 43 % (24-48) Monocytes (%) (Auto) 12 % (0-9) Eosinophils (%) (Auto) 3 % (0-3) Basophils (%) (Auto) 0 % (0-3) Neutrophils # (Auto) 1.3 x10^3/uL (1.8-7.7) Lymphocytes # (Auto) 1.3 x10^3/uL (1.0-4.8) Monocytes # (Auto) 0.4 x10^3/uL (0.0-1.1) Eosinophils # (Auto) 0.1 x10^3/uL (0.0-0.7) Basophils # (Auto) 0.0 x10^3/uL (0.0-0.2) Sodium Level 139 mmol/L (136-145) Potassium Level 4.7 mmol/L (3.5-5.1) Chloride Level 107 mmol/L (98-107) Carbon Dioxide Level 27 mmol/L (21-32) Anion Gap 5 (6-14) Blood Urea Nitrogen 9 mg/dL (8-26) Creatinine 0.5 mg/dL (0.7-1.3) Estimated GFR (Cockcroft-Gault) 175.3 Glucose Level 131 mg/dL (70-99) Calcium Level 7.7 mg/dL (8.5-10.1) Phosphorus Level 3.4 mg/dL (2.6-4.7) Test 05/02/20 16:15 White Blood Count 3.5 x10^3/uL (4.0-11.0) Red Blood Count 2.77 x10^6/uL (4.30-5.70) Hemoglobin 7.9 g/dL (13.0-17.5) Hematocrit 23.8 % (39.0-53.0) Mean Corpuscular Volume 86 fL (79-100) Mean Corpuscular Hemoglobin 29 pg (25-35) Mean Corpuscular Hemoglobin Concent 33 g/dL (31-37) Red Cell Distribution Width 16.3 % (11.5-14.5) Platelet Count 98 x10^3/uL (140-400) Laboratory Tests Test 05/02/20 12:06 05/02/20 16:08 05/02/20 16:15 Glucose (Fingerstick) 212 mg/dL (70-99) 112 mg/dL (70-99) White Blood Count 3.5 x10^3/uL (4.0-11.0) Red Blood Count 2.77 x10^6/uL (4.30-5.70) Hemoglobin 7.9 g/dL (13.0-17.5) Hematocrit 23.8 % (39.0-53.0) Mean Corpuscular Volume 86 fL (79-100) Mean Corpuscular Hemoglobin 29 pg (25-35) Mean Corpuscular Hemoglobin Concent 33 g/dL (31-37) Red Cell Distribution Width 16.3 % (11.5-14.5) Platelet Count 98 x10^3/uL (140-400) Brief Hospital Course Mr Reyes is a 50 year old male brought in by EMS for nausea, vomiting and diarrhea since 04-22 . His emesis has been brown but denies any blood. Diarrhea is nonbloody nonbilious. Denies any fevers. Was tested for Covid but has not had it yet. Denies any positive contacts but knows people he has not been in contact who tested positive. Denies any fevers, cough. Has a history of pancreatitis and stents placed. He was started on empiric Zosyn. He had mild troponin elevation. For left lower extremity extensive DVT extending to IVC he underwent mechanical thrombectomy and angioplasty of SFV, CFV, EIV and CIV Recently with gallstone pancreatitis in 09/2019 - s/p cholecystectomy then. The next month was admitted w/ strep bacteremia/resp failure - imaging at that time noted pancreatic pseudocysts. Since then, apparently underwent endoscopic drainage of pseudocyst w/ stent and necrosectomy at 01/2020. 04/24: LLE venogram, thrombectomy, Iliac vein stent, tunnelled central line 04/27: APPEARS WEAK, APPETITE FAIR HGB 6.1 TRANSFUSE 1 UNIT PRBC'S 04/28: He has also been noted per his mother, bedside of a prior CVA noted at [facility]. He has lost over 100#, from 240# over a year ago, now with multiple hospitalizations with pancreatitis over the past year. Hb to 7.6 post- transfusion, WBC 2.3, K 3.1 today. Not eating much. Mother requesting parenteral nutrition. 04/29: Patient seen and evaluated. Hemoglobin 7.2, will continue to monitor and transfuse as necessary. S/P mechanical thrombectomy, multifocal angioplasty, and stent placement within external iliac vein. Hem/Onc evaluated patient today and agrees with recommendations for indefinite anticoagulation given significant clot burden. Hypercoagulable work-up to follow, this may be able to complete complete outpatient. Poor appetite and weight loss has been noted, but this is not uncommon for this patient. He has had EGD but never had colonoscopy. Will defer CRC screening to GI. 04/30: Afebrile overnight. Reticulocyte count low [place] level improved magnesium 1.8 potassium 3.3. Eliquis dose increased to 5 mg unclear why he was on 2 5 mg at home. 05/01: Afebrile. Appetite is better. Complaining of right hip pain though he was able to stand today. Feels better up in chair. Therapy recommending skilled however his mother wants him to go home. Discussed doing hip x-ray and continuing therapy and likely discharge in the next 24 hours Afebrile. Right hip x-ray with mild DJD. Hb 6.9. Transfused 1u PRBC, improved to 7.6. Able to ambulate with walker. He and his mother wish for discharge home, are insistent against home health. Advised to f/u with hematology outpatient as well as vascular surgery. Problem list: Dehydration Abnormal weight loss Nausea vomiting and diarrhea Recurrent left lower extremity DVT - Extensive occlusive left lower extremity deep venous thrombosis. DM2 Bipolar disease Leukocytosis, ACD JAQUAN - vasomotor nephropathy Lactic acidosis Elevated LFTs NSTEMI, type II - Elevated troponin H/o GERD and pancreatic pseudocysts s/p cystogastrostomy @ [facility], weight loss Pelvic lymphadenopathy, uncertain clinical significance, possibly reactive. Recurrent pancreatitis H/o gallstone pancreatitis, pancreatic pseudocysts s/p drainage and necrosectomy at 01/2020 Severe Protein calorie malnutrition Thrombocytopenia, acute Normocytic anemia - will need 1u PRBC Leukopenia, acute and likely reactive Consults: GI, nephrology, vascular surgery, oncology, ID Greater than 30 minutes spent on d/c home Discharge Information Condition at Discharge: Improved Follow Up: Weeks Disposition/Orders: D/C to Home Scheduled Apixaban (Eliquis) 5 Mg Tablet, 5 MG PO BID for DVT for 30 Days, #60 Ref 5 Prescribed by: MILAD BUSBY MD on 05/02/20 1319 Clonazepam (Clonazepam) 1 Mg Tablet, 1 MG PO BID for FOR ANXIETY, (Reported) Entered as Reported by: CHEL GREENBERG RN on 03/12/19829 Last Action: Converted on 04/27/201632 by JAMAL MORRIS MD Lidocaine (Lidocaine PATCH ) 1 Each Adh..patch, 1 EACH TP DAILY for FOR LOCAL PAIN, (Reported) REMOVE AFTER 12 HOURS Entered as Reported by: CHEL GREENBERG RN on 03/12/19829 Last Action: Continued on 04/27/201632 by JAMAL MORRIS MD [place] Carbonate ([place] Carbonate) 300 Mg Tablet, 1 TAB PO BID for BIPOLAR, #60 Ref 1 (Reported) Entered as Reported by: KARLENE MAGALLANES on 08/08/18 1342 Last Action: Converted on 04/30/20 1439 by MILAD BUSBY MD Ondansetron Hcl (Zofran) 4 Mg Tablet, 1 TAB PO Q6HRS for nausea, #20 (Reported) Entered as Reported by: ZAINA MARIN on 04/16/20 1613 Last Action: Converted on 04/27/201632 by JAMAL MORRIS MD Pantoprazole Sodium (Pantoprazole Sodium ) 40 Mg Tablet.dr, 40 MG PO DAILYAC for Gastritis for 30 Days, #30 Ref 5 Prescribed by: MILAD BUSBY MD on 05/02/20 1319 Scheduled PRN Albuterol Sulfate (Proair Hfa) 8.5 Gm Hfa.aer.ad, 2.5 MG NEB PRN Q4HRS PRN for WHEEZING for 14 Days, #1 Prescribed by: JAMAL MORRIS MD on 09/16/19 1406 Last Action: Continued on 04/27/201632 by JAMAL MORRIS MD Oxycodone/Apap 7.5-325 (Percocet 7.5-325 Mg Tablet ) 1 Each Tablet, 1 TAB PO PRN Q6HRS PRN for PAIN, Ref 0 (Reported) Entered as Reported by: ZAINA MARIN on 04/16/20 161 Last Action: Continued on 04/27/201632 by JAMAL MORRIS MD Tizanidine Hcl (Zanaflex) 4 Mg Capsule, 1 CAP PO TID PRN for MUSCLE SPASTICITY, #90 (Reported) Entered as Reported by: ZAINA MARIN on 08/25/15 1352 Last Action: Converted on 04/30/20 143 by MILAD BUSBY MD Discontinued Medications Apixaban (Eliquis) 2.5 Mg Tablet, Unknown Dose PO unk for thin the blood, (Reported) Entered as Reported by: ZAINA MARIN on 04/16/201611 Last Action: Reviewed on 04/27/201631 by JAMAL MORRIS MD Justicifation of Admission Dx: Justifications for Admission: Justification of Admission Dx: Yes Comminuty Aquired Pneumonia: Hemodynamic Instability Acute Renal Failure: RF Can't Be Managed Outpt Sepsis: Altered Mental Status DKA: MILAD SANFORD MD May 03, 2020 07:28
[2020-05-04 10:01] LABS: CARDIOLIPIN ANTIBODIES SEE SEPARATE REPORT; LUPUS ANTICOAGULANT SEE SEPARATE REPORT
== END 2020-05-02 18:00 | disposition home or self-care (01) | DRG 270 ==
LOC: ER 19:07 → 6 SOUTH 23:35 → 5 NORTH 04-27 19:04
PROVIDERS: ADMIT Internal Medicine; ATTEND Internal Medicine
PROC: 047L3ZZ Dilation of Left Femoral Artery, Percutaneous Approach (ICD-10-PCS; principal; 2020-04-24)
PROC: 06CG3ZZ Extirpation of Matter from Left External Iliac Vein, Percutaneous Approach (ICD-10-PCS; 2020-04-24)
PROC: 047J3DZ Dilation of Left External Iliac Artery with Intraluminal Device, Percutaneous Approach (ICD-10-PCS; 2020-04-24)
PROC: 06CN3ZZ Extirpation of Matter from Left Femoral Vein, Percutaneous Approach (ICD-10-PCS; 2020-04-24)
PROC: B51CYZZ Fluoroscopy of Left Lower Extremity Veins using Other Contrast (ICD-10-PCS; 2020-04-24)
PROC: B51M1ZZ Fluoroscopy of Right Upper Extremity Veins using Low Osmolar Contrast (ICD-10-PCS; 2020-04-24)
PROC: 0JH63XZ Insertion of Tunneled Vascular Access Device into Chest Subcutaneous Tissue and Fascia, Percutaneous Approach (ICD-10-PCS; 2020-04-24)
PROC: 02HV33Z Insertion of Infusion Device into Superior Vena Cava, Percutaneous Approach (ICD-10-PCS; 2020-04-24)
PROC: B5181ZA Fluoroscopy of Superior Vena Cava using Low Osmolar Contrast, Guidance (ICD-10-PCS; 2020-04-24)
PROC: B548ZZA Ultrasonography of Superior Vena Cava, Guidance (ICD-10-PCS; 2020-04-24)
PROC: 0JH63XZ Insertion of Tunneled Vascular Access Device into Chest Subcutaneous Tissue and Fascia, Percutaneous Approach (ICD-10-PCS; 2020-04-25)
PROC: 02HV33Z Insertion of Infusion Device into Superior Vena Cava, Percutaneous Approach (ICD-10-PCS; 2020-04-25)
PROC: B5181ZA Fluoroscopy of Superior Vena Cava using Low Osmolar Contrast, Guidance (ICD-10-PCS; 2020-04-25)
PROC: B548ZZA Ultrasonography of Superior Vena Cava, Guidance (ICD-10-PCS; 2020-04-25)
PROC: 30233N1 Transfusion of Nonautologous Red Blood Cells into Peripheral Vein, Percutaneous Approach (ICD-10-PCS; 2020-04-27)
DX: I82.412 Acute embolism and thrombosis of left femoral vein (principal); I21.A1 Myocardial infarction type 2; E43 Unspecified severe protein-calorie malnutrition; K85.10 Biliary acute pancreatitis without necrosis or infection; N17.0 Acute kidney failure with tubular necrosis; E87.2 Acidosis; D61.818 Other pancytopenia; K86.1 Other chronic pancreatitis; I82.422 Acute embolism and thrombosis of left iliac vein; I82.402 Acute embolism and thrombosis of unspecified deep veins of left lower extremity; E86.0 Dehydration; Z20.822 Contact with and (suspected) exposure to COVID-19; R19.7 Diarrhea, unspecified; F31.9 Bipolar disorder, unspecified; F41.9 Anxiety disorder, unspecified; G89.29 Other chronic pain; G47.33 Obstructive sleep apnea (adult) (pediatric); K21.9 Gastro-esophageal reflux disease without esophagitis; Z96.653 Presence of artificial knee joint, bilateral; I10 Essential (primary) hypertension; E03.9 Hypothyroidism, unspecified; E11.51 Type 2 diabetes mellitus with diabetic peripheral angiopathy without gangrene; E55.9 Vitamin D deficiency, unspecified; F17.210 Nicotine dependence, cigarettes, uncomplicated; E87.6 Hypokalemia; K76.0 Fatty (change of) liver, not elsewhere classified; N20.0 Calculus of kidney; D50.0 Iron deficiency anemia secondary to blood loss (chronic); Z90.49 Acquired absence of other specified parts of digestive tract; Z85.828 Personal history of other malignant neoplasm of skin; Z88.8 Allergy status to other drugs, medicaments and biological substances; Z82.49 Family history of ischemic heart disease and other diseases of the circulatory system; Z83.3 Family history of diabetes mellitus; Z86.718 Personal history of other venous thrombosis and embolism; Z95.820 Peripheral vascular angioplasty status with implants and grafts; Z98.52 Vasectomy status; Z68.21 Body mass index [BMI] 21.0-21.9, adult
CPT/HCPCS: 36415; 36558; 36600; 37187; 37238; 71045; 73502; 73700; 74176; 75820; 76937; 77001; 80048; 80053; 80061; 80178; 80307; 81001; 82248; 82607; 82728; 82784; 82805; 82962; 83540; 83550; 83605; 83690; 83735; 84100; 84145; 84478; 84484; 85007; 85014; 85018; 85025; 85027; 85045; 85610; 86146; 86147; 86334; 86335; 86644; 86645; 86747; 86850; 86900; 86901; 86920; 87040; 87086; 87426; 87496; 87798; 93005; 93306; 93971; 96361; 96365; 96367; 96375; 99152; 99153; A4215; C1725; C1751; C1892; C1894; C9113; G0480; J0610; J0780; J1200; J1642; J1644; J1650; J2060; J2250; J2270; J2405; J2543; J3010; J3475; J3480; J3490; J7030; J7050; J7120; P9016; P9046; Q9967; U0003; 70330; 97110-GO; 97110-GP; 97530-GO; 97530-GP; 97535-GO; 99285-25; G0378

== ENCOUNTER → 2020-06-04 | Outpatient (CLI) | payer BC, MEDICARE ==
[2020-05-02 16:08] VITALS: BP 95/72
[~2020-06-04] MED LIST changes: +APIX5TAB PO
--- NOTE | 2020-06-05 08:20 | RAD ---
Exam Date: 06/04/2020 4:10 PM XR KNEE _3 [id number] Indication: Reason: LEFT KNEE PAIN.SWELLING / Spl. Instructions: / History: COMPARISON: CT from April 25, 2020 FINDINGS/ IMPRESSION: Left total knee arthroplasty with longstem components noted. Lateral fixation plate and screws partia lly visualized across the distal femur. Patella resurfacing noted. No evidence for hardware failure o r loosening. No acute fracture or dislocation. Soft tissue swelling is noted. Vascular calcifications are noted. Alignment is maintained. Electronically signed by: Rah Garber MD (06/05/2020 8:18 AM) [id number]
== END ==
LOC: RAD 15:52
PROVIDERS: ATTEND Nurse Practitioner Family
DX: R22.42 Localized swelling, mass and lump, left lower limb (principal); Z96.652 Presence of left artificial knee joint
CPT/HCPCS: 73562

== ENCOUNTER → 2020-08-01 | Outpatient (CLI) | payer BC, MEDICARE ==
[2020-05-02 16:08] VITALS: BP 95/72
--- NOTE | 2020-08-01 12:26 | PDOC ---
Progress Note - Pain Clinic Date of Service: DOS: DATE: 08/01/20 TIME: 12:19 Diagnosis: Dx: Lumbar degenerative disc disease lumbar spinal stenosis lumbar spondylosis History or Present Illness: HPI: 50-year-old male returns for follow-up status post medication management with oxycodone and Zanaflex, and Lidoderm patches. Patient returns today and is somewhat lethargic but is alert once questions and is appropriate however maintains falling asleep during the interview and exam. Patient's caregiver who is with him today reports he did have a full breakfast today also has had fluids to drink some using the bathroom regularly for him still has significant pain reported in the low back itself. Patient had a lumbar epidural steroid injections in the past and has been managed with medication management since that time. Patient was hospitalized for pancreatitis and has been somewhat lethargic since that time but is more lethargic on presentation today. Patient blood sugar checked in the office today 382. With checking patient's blood pressure showed highest of about 76/34 on multiple checks and manual blood pressure measurement as well. Again patient is appropriate in responses when questioned and is alert when questioned however between questioning patient does doze off and appears more lethargic than on previous visits. We will send him to the emergency department for intravenous fluid and observation as well as laboratory evaluation and blood sugar control. Physical Exam: VS: Blood pressure is initially 116/89 rechecked 67/34 on multiple checks and manual blood pressure. Pulse 101 respiration 16 temperature 90.4 F weight is 150 pounds PE: PHYSICAL EXAMINATION: GENERAL: The patient is awake, alert, but requires multiple questioning and loud vocal stimulation to respond appropriately. HEENT: Shows normocephalic, atraumatic. Extraocular movements are intact and symmetrical. NECK: Shows anterior throat supple without palpable lymphadenopathy noted. Swallow reflex symmetrical. CHEST: Shows normal on inspection. Breath sounds are clear bilaterally but distant and patient is unable to take a full excursion with breathing secondary to lethargy. HEART: Shows S1, S2 clear. No murmurs auscultated. ABDOMEN: Soft, nontender, nondistended. No palpable organomegaly is noted. No rebound or guarding demonstrated. BACK: Shows spine grossly in the midline. Normal-appearing cervical lordotic curvature. There is slightly increased thoracic kyphosis, some minor flattening of the lumbar lordotic curvature. Lumbar paraspinous muscles show symmetrical on inspection, on palpation shows some moderate tenderness diffusely throughout the upper, middle and lower distribution of the paraspinous muscles without specific trigger points, without radiation of pain. The patient has good rotational motion of the lumbar spine, both laterally as well as extension and flexion without significant difficulty. No tenderness over the spinous processes, sacrum or sacroiliac regions. EXTREMITIES: Lower extremities show deep tendon reflexes 1+ in the patellar and tendo calcaneus tendons. Motor exam is 4 on a scale of 5 with right dorsiflexion, extension, quadriceps and hamstring flexion and 4/5 on the left. Peripheral pulses are 1+ posterior tibial. No peripheral edema is noted bilaterally. Lower extremities are warm and dry. SKIN: Shows warm and dry, good turgor. No edema. No sores, rashes or bruising throughout. Procedure: Procedure: Options were discussed with the patient patient's caregiver we will send him to the emergency department today for intravenous fluids and laboratory assessment for electrolytes etc. and blood glucose management. Patient's caregiver was given refill prescription for the patient with instructions side effects to be aware of discussed. Patient has had appropriate K tracts reporting to date as well as appropriate urinalyses to date and will make this a 2-month refill. Patient return in approximate 2 months or sooner as necessary pending ER evaluation today. Medication Injected: Med Injected: None Condition at Discharge: Condition at Discharge: Discharged to emergency department for intravenous fluid and evaluation with electrolytes and blood glucose management. KOFI BYRD MD Aug 01, 2020 12:26
--- NOTE | 2020-08-01 13:18 | NUR ---
Pt seen in pain clinic today accompanied by for routine medication management appointment. pt taken to exam room by WC by Prachi Kim RN. Pt reported feeling very hot and was provided with a bottled water and then became verbally unresponsive and slumped over in WC. states that he has these "panic attacks" every few days where he will tense up and then become unresponsive. At home they give him a clonazepam (dose unspecified) and he takes a nap for several hours and wakes up "fine." NIBP at onset of syncopal episode in L arm 75/31, P 45, skin pale, cool, clammy, and diaphoretic. Pt will open eyes to loud voices but will not verbally respond. YPLV=597 @ 1211. Attempted a second NIBP, which failed. Manual BP 65/30, pulse not palpable radially. Due to persistent hypotension and unresponsiveness, Dr. Johnson strongly urged patient's to take him to the ED. Prachi Wilks RN called ED to notify of imminent arrival. Raymond Reyes RT and myself accompanied patient and to ED by Wheelchair. Pt maintained posture in WC, and spontaneous movement during transport. Taken to triage room 3.
== END | disposition home or self-care (01) ==
LOC: PNCL 11:14
PROVIDERS: ATTEND Anesthesiology
DX: M51.36 Other intervertebral disc degeneration, lumbar region (principal); M48.061 Spinal stenosis, lumbar region without neurogenic claudication; M47.816 Spondylosis without myelopathy or radiculopathy, lumbar region; I10 Essential (primary) hypertension; G47.30 Sleep apnea, unspecified; E66.9 Obesity, unspecified; K21.9 Gastro-esophageal reflux disease without esophagitis; M19.90 Unspecified osteoarthritis, unspecified site; E11.9 Type 2 diabetes mellitus without complications; M10.9 Gout, unspecified; M81.0 Age-related osteoporosis without current pathological fracture; E03.9 Hypothyroidism, unspecified; F41.9 Anxiety disorder, unspecified; F32.9 Major depressive disorder, single episode, unspecified; Z90.49 Acquired absence of other specified parts of digestive tract; Z98.890 Other specified postprocedural states; Z79.84 Long term (current) use of oral hypoglycemic drugs; Z79.899 Other long term (current) drug therapy; Z87.891 Personal history of nicotine dependence; Z88.8 Allergy status to other drugs, medicaments and biological substances
CPT/HCPCS: 99212; G0463

== ENCOUNTER → 2020-08-29 | Outpatient (CLI) | payer BC, MEDICARE ==
[2020-08-16 15:00] VITALS: BP 111/81
[2020-08-29 12:44] LABS: CREATININE 0.9 mg/dL (0.7-1.3)
== END ==
LOC: LAB 11:46
PROVIDERS: ATTEND Internal Medicine Infectious Disease
DX: M25.562 Pain in left knee (principal)
CPT/HCPCS: 36415; 82550; 82565; 84520; 85651

== ENCOUNTER 2020-10-01 08:17 | Outpatient (CLI) | payer BC, MEDICARE ==
[~2020-10-01] VITALS: Ht 165.1 cm; Wt 68.0 kg
[2020-10-01] MEDS ORDERED: DOXY-96 PO (08:37)
[2020-10-01 08:40] VITALS: BP 126/85
[2020-10-01 09:35] LABS: PROTHROMBIN TIME PATIENT 16.7 SEC (11.7-14.0)
[2020-10-01] MEDS ORDERED: LIDOCAINE 2%/EPI 1:100,000 20 ML VIAL. ONE (09:35)
[2020-10-01] MEDS ORDERED: LIDOCAINE 2%/EPI 1:100,000 20 ML VIAL. INJ ONE (10:00)
[2020-10-01 10:20] VITALS: BP 120/82
[2020-10-01 10:35] VITALS: BP 118/81
[2020-10-01 11:05] VITALS: BP 121/65
--- NOTE | 2020-10-01 11:18 | NUR ---
Dressing intact, no bleeding. Instructions provided on site care. Patient and mother verbalized understanding. Advised to keep head elevated for two hours post to decrease risk of bleeding. Told to continue all home medications. Patient taken to private vehicle by his mother via wheelchair. All belongings taken w/ patient at time of d/c.
--- NOTE | 2020-10-02 08:59 | RAD ---
Procedure: Fluoroscopic guided removal of a tunneled central venous catheter Clinical Indication: Adult male with tunneled central venous catheter, no longer requiring infusion t herapy. Sedation: Local anesthesia only Antibiotics: None Fluoro Exposure: Kerma-Area Product: 2 mGycm2 Sterility: The procedure was performed in its entirety using appropriate elements of sterile techniqu e. Consent: The procedure was explained in its entirety to the patient or the patients designated repres entative by a member of the treatment team, including a discussion of the risks, benefits and commonl y accepted alternatives to the procedure, as well as the expected consequences of not performing the procedure. Discussion of the risks included, but was not limited to, those that are most frequent an d those that are rare but possibly severe or life-threatening, as well as the possibility of unforese en complications. Time Out: Immediately prior to initiation a procedural pause was conducted in the presence of the mem bers of the treatment team to verify correct patient identity, correct procedure, correct side if elmer licable, correct patient position, availability of specialized equipment, review of patients allergie s, and assessment of current level of consciousness and arousability. Technique and Findings: Following informed consent, the patient was prepped and draped in usual steri le fashion. Preliminary fluoroscopic spot view revealed an intact tunneled central line. 1 percent li docaine was used to achieve local anesthesia over the exit site, and blunt dissection techniques were used to free the cuff. The catheter was then removed in its entirety. The pocket was irrigated with normal saline and left close by secondary intention. Completion fluoroscopic spot view revealed no ra diopaque residual foreign body. Complications: No immediate Impression: 1. Fluoroscopic guided removal of tunneled central venous catheter as described. Electronically signed by: Walter Lara MD (10/02/2020 8:56 AM) [id number]
== END 2020-10-01 11:15 | disposition home or self-care (01) ==
LOC: INTRAD 08:17
PROVIDERS: ATTEND Internal Medicine Infectious Disease
DX: Z45.2 Encounter for adjustment and management of vascular access device (principal); I10 Essential (primary) hypertension; E66.9 Obesity, unspecified; K21.9 Gastro-esophageal reflux disease without esophagitis; M19.90 Unspecified osteoarthritis, unspecified site; M10.9 Gout, unspecified; E11.9 Type 2 diabetes mellitus without complications; E03.9 Hypothyroidism, unspecified; M81.0 Age-related osteoporosis without current pathological fracture; F41.9 Anxiety disorder, unspecified; F32.9 Major depressive disorder, single episode, unspecified; Z99.2 Dependence on renal dialysis; Z90.49 Acquired absence of other specified parts of digestive tract; Z98.890 Other specified postprocedural states; Z79.899 Other long term (current) drug therapy; Z87.891 Personal history of nicotine dependence; Z88.8 Allergy status to other drugs, medicaments and biological substances
CPT/HCPCS: 36415; 36589; 77001; 85610; J3490

== ENCOUNTER → 2020-12-03 | Outpatient (CLI) | payer BC, MEDICARE ==
[~2020-12-03] MED LIST changes: +DOCU-148 PO; -DOCU-153 PO; +DOXY-96 PO; -DOXY100C2 PO; +DOXY100C3 PO; -LISI2.5T PO; +LISI2.5T12 PO; +MIRT-36 PO
--- NOTE | 2020-12-03 14:49 | PDOC ---
Progress Note - Pain Clinic Date of Service: DOS: DATE: 12/03/20 TIME: 14:45 Diagnosis: Dx: Lumbar degenerative disease with lumbar spinal stenosis and lumbar spondylosis History or Present Illness: HPI: 50-year-old male returns for follow-up status post medication management with oxycodone Zanaflex and Lidoderm patches. Patient ports to be doing very well with this regimen he was recently hospitalized for some pancreatitis and has been discharged and is doing better patient is using a walker today instead of a wheelchair reports that he feels somewhat better his pain medication is decreasing his pain significantly in the event that he watches his activity very closely he can control his pain fairly well patient reports about a overall 70% improvement with the medication without any specific side effects. Patient reports his pain a 10 on scale 10 is worse with past week 8 on average 6 its least is an 8 today patient reports aching sharp stabbing in the low back mainly more on the right side than the left but present bilaterally patient reports it can be unbearable is on her feet for more than 10 to 15 minutes when he must sit and rest but then the pain decreases fairly significant patient reports it does awaken her from sleep about every 5 to 6 days is right side. Patient reports no new motor or sensory deficits no side effects once again with his medications he has had appropriate K tracks report as well as appropriate urinalyses to date. Physical Exam: VS: Blood pressure is [id number] pulse 94 respirations 18 temperature 97.8 F height 5 feet 7 inches weight is 140 pounds PE: PHYSICAL EXAMINATION: GENERAL: The patient is awake, alert, oriented, appropriate, very pleasant in demeanor HEENT: Shows normocephalic, atraumatic. Extraocular movements are intact and symmetrical. Oral cavity: Mucous membranes moist and pink. NECK: Shows anterior throat supple without palpable lymphadenopathy noted. Swallow reflex symmetrical. CHEST: Shows normal on inspection. Breath sounds are clear bilaterally, distant but no rales or rhonchi. HEART: Shows S1, S2 clear. No murmurs auscultated. ABDOMEN: Soft, nontender, nondistended, obese. No palpable organomegaly is noted. BACK: Shows spine grossly in the midline. Normal-appearing cervical lordotic curvature. There is mildly increased thoracic kyphosis, some flattening of the lumbar lordotic curvature. Lumbar paraspinous muscles show symmetrical on inspection, on palpation shows some moderate tenderness diffusely throughout the upper, middle and lower distribution of the paraspinous muscles without specific trigger points, without radiation of pain. The patient has good rotational motion of the lumbar spine, both laterally as well as extension and flexion with mild tenderness with extension and rightward and left lateral rotation but better with forward flexion 45 degrees which is performed fully. No tenderness over the spinous processes, sacrum or sacroiliac regions. EXTREMITIES: Lower extremities show deep tendon reflexes 1+ in the patellar and tendo calcaneus tendons. Motor exam is 4 on a scale of 5 with right dorsiflexion, extension, quadriceps and hamstring flexion and 4/5 on the left. Peripheral pulses are 1+ posterior tibial. No peripheral edema is noted bilaterally. Lower extremities are warm and dry to touch, equal in color and appearance. SKIN: Shows warm and dry, good turgor. No edema. No sores, rashes or bruising throughout. Procedure: Procedure: Options were discussed with the patient. Patient chart was reviewed his current medication regimen updated current review of systems updated today as well. We will refill patient's medication for 1 month. Oxycodone as patient has had appropriate K tracks portables appropriate urinalyses to date. Patient given instructions well side effects aware of the medications and will follow up for telemedicine visits in approximately 4 weeks as scheduled. Medication Injected: Med Injected: None Condition at Discharge: Condition at Discharge: Condition at discharge is stable. KOFI BYRD MD Dec 03, 2020 14:49
== END ==
LOC: PNCL 13:38
PROVIDERS: ATTEND Anesthesiology
DX: M48.061 Spinal stenosis, lumbar region without neurogenic claudication (principal); M47.816 Spondylosis without myelopathy or radiculopathy, lumbar region; M51.36 Other intervertebral disc degeneration, lumbar region
CPT/HCPCS: 99212; G0463

== ENCOUNTER → 2021-01-12 | Outpatient (CLI) | payer BC, MEDICARE ==
[~2021-01-12] MED LIST changes: +BENA1TAB48 PO; -BENA1TAB5 PO; +CLIN-94 PO; -CLIN300C9 PO; -LISI-517 PO; +LISI5TAB15 PO; +POTA-121 PO; -POTA20TA4 PO; +TIZA-75 PO; -TIZA4TAB2 PO
--- NOTE | 2021-01-12 15:42 | PDOC ---
Progress Note - Pain Clinic Date of Service: DOS: DATE: 01/12/21 TIME: 15:40 Diagnosis: Dx: Lumbar spinal stenosis with lumbar spondylosis and lumbar degenerative disc disease History or Present Illness: HPI: Telemedicine visit with patient today with identity verified with date of as well as full name, total time spent :12 minutes 50-year-old male via telemedicine visit today requesting refill of oxycodone 7.5 mg. Patient ports he doing very well with this and has had a very stable regimen with the medication without side effects in controlling his pain fairly well about 65 to 70% on most days. Patient reports he has been increase his activity over the past few weeks but is had some increased pain with that in the low back and bilateral lower extremities but very tolerable also his knee is painful but he is wearing a brace on the knee now which is helpful in decreasing the pain as well. Patient reports no side effects with the medication has had appropriate K tracks reporting as well as appropriate urinalyses to date. We will electronically prescribe patient's oxycodone with instructions side effects aware discussed with the medication. Patient will follow up in approximate 4 weeks as scheduled. Physical Exam: PE: KOFI BYRD MD Jan 12, 2021 15:42
--- NOTE | 2021-01-12 16:16 | NUR ---
Pt called for refill of pain med and muscle relaxer refills for his chronic pain. Pt. denies any new problems or side effects from prescribed meds. Pain level 7/10 today. Verified pt. pharmacy and next appt in the pain clinic on Jan. Raymond Bentley RN
== END | disposition home or self-care (01) ==
LOC: PNCL 12:07
PROVIDERS: ATTEND Anesthesiology
DX: M51.36 Other intervertebral disc degeneration, lumbar region (principal); M47.816 Spondylosis without myelopathy or radiculopathy, lumbar region; M48.061 Spinal stenosis, lumbar region without neurogenic claudication; I10 Essential (primary) hypertension; G47.30 Sleep apnea, unspecified; E66.9 Obesity, unspecified; M19.90 Unspecified osteoarthritis, unspecified site; E11.9 Type 2 diabetes mellitus without complications; E03.9 Hypothyroidism, unspecified; K21.9 Gastro-esophageal reflux disease without esophagitis; M81.0 Age-related osteoporosis without current pathological fracture; Z90.49 Acquired absence of other specified parts of digestive tract; Z98.890 Other specified postprocedural states; Z79.899 Other long term (current) drug therapy; Z87.891 Personal history of nicotine dependence; Z88.8 Allergy status to other drugs, medicaments and biological substances
CPT/HCPCS: G0463

== ENCOUNTER → 2021-02-05 | Outpatient (CLI) | payer BC, MEDICARE ==
--- NOTE | 2021-02-05 13:13 | PDOC ---
Progress Note - Pain Clinic Date of Service: DOS: DATE: 02/05/21 TIME: 13:09 Diagnosis: Dx: Lumbar degenerative disc disease with lumbar spinal stenosis and lumbar spondylosis History or Present Illness: HPI: 50-year-old male returns for follow-up status post medication management with oxycodone also Zanaflex and Lidoderm patches. Patient reports he is doing very well is been on very stable regimen with the medication without any specific side effects. Patient reports still significant pain in the low back but fairly well controlled with the medications patient reports about 75% or so most times. Patient reports his pain is a 10 on scale 10 is worst average 9 its least is a 9 today patient describes aching sharp burning in the back constant with activity better with sitting or laying down generally does not awaken her from sleep at night. Patient reports he is getting more strength as he is doing physical therapy exercises on his own in the low back and the lower extremities with better ability to increase distance walking. Patient reports no bowel or bladder incontinence, no motor deficits. Physical Exam: VS: Blood pressure is 124/82 pulse 69 respirations 18 temperature 98.3 F height 5 feet 7 inches weight is 140 pounds PE: PHYSICAL EXAMINATION: GENERAL: The patient is awake, alert, oriented, appropriate, very pleasant in demeanor HEENT: Shows normocephalic, atraumatic. Extraocular movements are intact and symmetrical. Oral cavity: Mucous membranes moist and pink. NECK: Shows anterior throat supple without palpable lymphadenopathy noted. Swallow reflex symmetrical. CHEST: Shows normal on inspection. Breath sounds are clear bilaterally, distant but no rales or rhonchi auscultated. HEART: Shows S1, S2 clear. No murmurs auscultated. ABDOMEN: Soft, nontender, nondistended, obese. No palpable organomegaly is noted. BACK: Shows spine grossly in the midline. Normal-appearing cervical lordotic curvature. There is mild increased thoracic kyphosis, some flattening of the lumbar lordotic curvature. Lumbar paraspinous muscles show symmetrical on inspection, on palpation shows some moderate tenderness diffusely throughout the upper, middle and lower distribution of the paraspinous muscles, but without specific trigger points, without radiation of pain. The patient has good rotational motion of the lumbar spine, both laterally as well as extension and flexion without significant difficulty. No tenderness over the spinous processes, sacrum or sacroiliac regions. EXTREMITIES: Lower extremities show deep tendon reflexes 1+ in the patellar and tendo calcaneus tendons. Motor exam is 4 on a scale of 5 with right dorsiflexion, extension, quadriceps and hamstring flexion and 4/5 on the left. Peripheral pulses are 1+ posterior tibial. No peripheral edema is noted bilaterally. Lower extremities are warm and dry. SKIN: Shows warm and dry, good turgor. No edema. No sores, rashes or bruising throughout. Procedure: Procedure: Options were discussed with the patient. Patient's old chart was reviewed as was his current medication regimen updated, and current review of systems updated today as well. Patient has had appropriate K tracks reporting as well as appropriate urinalyses to date. We will refill patient's medication via electronic prescription oxycodone with instructions side effects to be aware of discussed with the patient. Patient will follow up in approximate 4 weeks as scheduled. Medication Injected: Med Injected: None Condition at Discharge: Condition at Discharge: Condition at discharge is stable. KOFI BYRD MD Feb 05, 2021 13:13
== END | disposition home or self-care (01) ==
LOC: PNCL 12:32
PROVIDERS: ATTEND Anesthesiology
DX: M51.36 Other intervertebral disc degeneration, lumbar region (principal); M48.061 Spinal stenosis, lumbar region without neurogenic claudication; M47.816 Spondylosis without myelopathy or radiculopathy, lumbar region; I10 Essential (primary) hypertension; G47.30 Sleep apnea, unspecified; E66.9 Obesity, unspecified; K21.9 Gastro-esophageal reflux disease without esophagitis; M19.90 Unspecified osteoarthritis, unspecified site; M10.9 Gout, unspecified; E03.9 Hypothyroidism, unspecified; E11.9 Type 2 diabetes mellitus without complications; F41.9 Anxiety disorder, unspecified; F32.9 Major depressive disorder, single episode, unspecified; Z87.891 Personal history of nicotine dependence; Z79.899 Other long term (current) drug therapy; Z98.890 Other specified postprocedural states; Z88.8 Allergy status to other drugs, medicaments and biological substances; Z82.49 Family history of ischemic heart disease and other diseases of the circulatory system; Z83.3 Family history of diabetes mellitus
CPT/HCPCS: 99212; G0463

== ENCOUNTER → 2021-03-03 | Outpatient (CLI) | payer BC, MEDICARE ==
--- NOTE | 2021-03-03 14:37 | NUR ---
Patient called states he needs a medication refill, verified name, , pharmacy. Patient denied any new medication or changes, new allergies, or constipation. Verified next appointment denied constipation. Ktracts ok . Call transferred to Dr Johnson.
--- NOTE | 2021-03-03 17:19 | PDOC ---
Progress Note - Pain Clinic Date of Service: DOS: DATE: 03/03/21 TIME: 17:17 Diagnosis: Dx: Lumbar degenerative disease lumbar spinal stenosis and lumbar spondylosis History or Present Illness: HPI: Telemedicine visit today with patient identification to date of as well as full name, total time spent 11 minutes. 50-year-old male via telemedicine visit today requesting refill for medication of oxycodone 7.5 mg patient has been on a very stable regimen for extended period of time and does well with this with about a 70+ percent improvement with the pain. Patient reports still some significant pain in the low back into the hips lower extremities but fairly well controlled with the medication slightly more pain on the right hip over the past few days as we have had some colder weather last week he was noticing the pain more but is not been taking his medications any more frequently reports that he is fairly well controlled he is doing some stretching and strength exercises as well as heat application to the low back and right hip which helps also. Patient reports no side effect with medication he has had appropriate K tracks report as well as appropriate urinalyses to date as well. We will refill patient's oxycodone 7.5 mg via electronic prescription, patient was given instructions well side effects aware with the medication with follow-up in approximate 4 weeks as scheduled. Physical Exam: PE: KOFI BYRD MD Mar 03, 2021 17:19
== END | disposition home or self-care (01) ==
LOC: PNCL 09:10
PROVIDERS: ATTEND Anesthesiology
DX: M51.36 Other intervertebral disc degeneration, lumbar region (principal); M48.061 Spinal stenosis, lumbar region without neurogenic claudication; M47.816 Spondylosis without myelopathy or radiculopathy, lumbar region; I10 Essential (primary) hypertension; G47.30 Sleep apnea, unspecified; E66.9 Obesity, unspecified; K21.9 Gastro-esophageal reflux disease without esophagitis; M19.90 Unspecified osteoarthritis, unspecified site; M81.0 Age-related osteoporosis without current pathological fracture; E03.9 Hypothyroidism, unspecified; E11.9 Type 2 diabetes mellitus without complications; F41.9 Anxiety disorder, unspecified; F32.9 Major depressive disorder, single episode, unspecified; M10.9 Gout, unspecified; Z87.891 Personal history of nicotine dependence; Z99.2 Dependence on renal dialysis; Z79.899 Other long term (current) drug therapy; Z98.890 Other specified postprocedural states; Z90.49 Acquired absence of other specified parts of digestive tract; Z82.49 Family history of ischemic heart disease and other diseases of the circulatory system; Z88.8 Allergy status to other drugs, medicaments and biological substances
CPT/HCPCS: 99212; G0463

== ENCOUNTER → 2021-04-02 | Outpatient (CLI) | payer BC, MEDICARE ==
[2021-03-24 10:34] VITALS: BP 140/85
[~2021-04-02] MED LIST changes: +AMOX1TAB11 PO; +LIDO700A21 TD; +LINE600T12 PO
--- NOTE | 2021-04-02 13:46 | PDOC ---
Progress Note - Pain Clinic Date of Service: DOS: DATE: 04/02/21 TIME: 13:42 Diagnosis: Dx: Lumbar degenerative disc disease with lumbar spinal stenosis and lumbar spondylosis History or Present Illness: HPI: 51-year-old male returns status post medication management oxycodone patient reporting only about a 50% improvement with the pain medication his pain in his back is becoming much more noticeable in the low back and radiates bilateral lower extremities mostly the posterior gluteus and posterior thighs worse with walking and standing patient reports its been getting worse over the past several weeks not the result of any specific new injury or accident that he is aware of patient also has some significant pain in his knees which he reports that he can "live with" but the back pain is getting worse and radiating pain into the upper legs is getting worse patient reports is a 10 on scale 10 is wors t 9 on average 9 at its least is a 9 today patient scribes aching and sharp shooting can be dull in the back tingling and stabbing in the legs can be constant unbearable with standing and walking. Patient reports it wakes him from sleep several times a night does not have any bowel or bladder incontinence but is becoming more noticeable with walking and standing is better with sitting and laying down but again awakening from sleep frequently. Patient reports no side effects with his medication has been tolerating that very well however does not working as well as it has in the past. Physical Exam: VS: Blood pressure is 146/97 pulse 90 respirations 18 temperature 98.5 F weight is 2 1 6 pounds PE: PHYSICAL EXAMINATION: GENERAL: The patient is awake, alert, oriented, appropriate, very pleasant in demeanor HEENT: Shows normocephalic, atraumatic. Extraocular movements are intact and symmetrical. Full mae and mustache. Oral cavity: Mucous membranes moist and pink. NECK: Shows anterior throat supple without palpable lymphadenopathy noted. Swallow reflex symmetrical. CHEST: Shows normal on inspection. Breath sounds are clear bilaterally, distant but no rales or rhonchi. HEART: Shows S1, S2 clear. No murmurs auscultated. ABDOMEN: Soft, nontender, nondistended. No palpable organomegaly is noted. BACK: Shows spine grossly in the midline. Normal-appearing cervical lordotic curvature. There is increased thoracic kyphosis, some flattening of the lumbar lordotic curvature. Lumbar paraspinous muscles show symmetrical on inspection, on palpation shows some moderate tenderness diffusely throughout the upper, middle and lower distribution of the paraspinous muscles, but without specific trigger points, without radiation of pain. The patient has good rotational motion of the lumbar spine, both laterally as well as extension and flexion w ithout significant difficulty. EXTREMITIES: Lower extremities show deep tendon reflexes 1 to in the patellar and tendo calcaneus tendons. Motor exam is 4 on a scale of 5 with right dorsiflexion, extension, quadriceps and hamstring flexion and 4/5 on the left. Peripheral pulses are 1+ posterior tibial. No peripheral edema is noted bilaterally. Lower extremities are warm and dry. SKIN: Shows warm and dry, good turgor. No edema. No sores, rashes or bruising throughout. Procedure: Procedure: Options were discussed with patient. Patient's old chart was reviewed his current medication regimen updated current review of systems updated today as well. We will obtain MRI scan of patient's lumbar spine as he has had a significant increase in pain in the low back with radicular quality to the bilateral lower extremities. Also will refill patient's oxycodone as patient is had appropriate K tracks report as well as appropriate urinalyses to date. Patient was given instructions well side effects aware of with his medication. Patient will follow up after MRI scan is completed. Medication Injected: Med Injected: None Condition at Discharge: Condition at Discharge: Condition at discharge is stable. KOFI BYRD MD Apr 02, 2021 13:46
== END | disposition home or self-care (01) ==
LOC: PNCL 12:59
PROVIDERS: ATTEND Anesthesiology
DX: M51.36 Other intervertebral disc degeneration, lumbar region (principal); M48.061 Spinal stenosis, lumbar region without neurogenic claudication; M47.816 Spondylosis without myelopathy or radiculopathy, lumbar region; I10 Essential (primary) hypertension; E66.9 Obesity, unspecified; G47.30 Sleep apnea, unspecified; K21.9 Gastro-esophageal reflux disease without esophagitis; E11.9 Type 2 diabetes mellitus without complications; E03.9 Hypothyroidism, unspecified; F41.9 Anxiety disorder, unspecified; F32.9 Major depressive disorder, single episode, unspecified; Z87.891 Personal history of nicotine dependence; Z90.49 Acquired absence of other specified parts of digestive tract; Z98.890 Other specified postprocedural states; Z79.899 Other long term (current) drug therapy; Z88.8 Allergy status to other drugs, medicaments and biological substances
CPT/HCPCS: 99212; G0463

== ENCOUNTER → 2021-04-08 | Outpatient (CLI) | payer BC, MEDICARE ==
[2021-03-24 10:34] VITALS: BP 140/85
--- NOTE | 2021-04-08 15:40 | KCIC ---
EXAM: Lumbar spine MRI without contrast. HISTORY: Radiculopathy. TECHNIQUE: Multiplanar, multisequence magnetic resonance imaging of the lumbar spine was performed wi thout contrast. COMPARISON: None. FINDINGS: There is mild lumbar scoliosis. There is 4 mm grade 1 anterolisthesis of L4 on L5 and retro listhesis of L5 on S1. There is degenerative endplate remodeling with disc space narrowing, osteophyt osis and Schmorl's node formation at L5-S1. There is disc desiccation at L4-L5 and L5-S1. There is no suspicious osseous lesion. There is no acute or subacute fracture. The conus terminates at L1. At L1-L2, there is no stenosis. At L2-L3, there is no stenosis. At L3-L4, there is a disc bulge and endplate remodeling. There is mild bilateral facet arthropathy. T here is minimal bilateral foraminal stenosis. At L4-L5, there is a disc bulge and endplate remodeling. There is moderate to severe bilateral facet arthropathy. There is mild central canal stenosis. At L5-S1, there is a shallow broad-based right paracentral to right lateral recess disc protrusion ross perimposed on a disc bulge and endplate osteophytosis. There is mild retrolisthesis. There is mild bi lateral foraminal stenosis with abutment or near abutment the exiting L5 nerve roots. There is narrow ing of the right lateral recess and abutment the traversing right S1 nerve root. There is mild centra l canal stenosis. IMPRESSION: 1. L5-S1: Shallow broad-based right paracentral to right lateral recess disc protrusion resulting in effacement of the right lateral recess and abutment the traversing right S1 nerve root. There is also a disc bulge and endplate osteophytosis at this level contributing to mild bilateral foraminal steno sis and abutment or near abutment the exiting L5 nerve roots and mild central canal stenosis. 2. Minimal degenerative change at additional lumbar levels, described above. Electronically signed by: Jackeline Nunez MD (04/08/2021 3:37 PM) [id number]
== END | disposition home or self-care (01) ==
LOC: KCIC MRI 13:12
PROVIDERS: ATTEND Anesthesiology
DX: M47.26 Other spondylosis with radiculopathy, lumbar region (principal); M48.061 Spinal stenosis, lumbar region without neurogenic claudication; I10 Essential (primary) hypertension; G47.30 Sleep apnea, unspecified; E66.9 Obesity, unspecified; K21.9 Gastro-esophageal reflux disease without esophagitis; M81.0 Age-related osteoporosis without current pathological fracture; M19.90 Unspecified osteoarthritis, unspecified site; E11.9 Type 2 diabetes mellitus without complications; E03.9 Hypothyroidism, unspecified; F41.9 Anxiety disorder, unspecified; F32.9 Major depressive disorder, single episode, unspecified; Z87.891 Personal history of nicotine dependence; Z79.899 Other long term (current) drug therapy; Z90.49 Acquired absence of other specified parts of digestive tract; Z98.890 Other specified postprocedural states; Z88.8 Allergy status to other drugs, medicaments and biological substances
CPT/HCPCS: 72148

== ENCOUNTER → 2021-04-13 | Outpatient (CLI) | payer BC, MEDICARE ==
[2021-03-24 10:34] VITALS: BP 140/85
[2021-04-13 15:48] LABS: BASO # 0.1 x10^3/uL (0.0-0.2); BASO % 1 % (0-3); EOS # 0.3 x10^3/uL (0.0-0.7); EOS % 5 % (0-3); HEMATOCRIT 34.7 % (39.0-53.0); HEMOGLOBIN 10.8 g/dL (13.0-17.5); LYMPH # 1.3 x10^3/uL (1.0-4.8); LYMPH % 21 % (24-48); MEAN CORPUSCULAR HEMOGLOBIN 24 pg (25-35); MEAN CORPUSCULAR HGB CONC 31 g/dL (31-37); MEAN CORPUSCULAR VOLUME 77 fL (79-100); MONO # 0.5 x10^3/uL (0.0-1.1); MONO % 8 % (0-9); NEUT # 4.1 x10^3/uL (1.8-7.7); NEUT % 66 % (31-73); PLATELET COUNT 245 x10^3/uL (140-400); RED BLOOD COUNT 4.51 x10^6/uL (4.30-5.70); RED CELL DISTRIBUTION WIDTH 17.3 % (11.5-14.5); WHITE BLOOD COUNT 6.3 x10^3/uL (4.0-11.0)
== END ==
LOC: LAB 15:34
PROVIDERS: ATTEND Internal Medicine Infectious Disease
DX: T84.54XA Infection and inflammatory reaction due to internal left knee prosthesis, initial encounter (principal); A49.9 Bacterial infection, unspecified
CPT/HCPCS: 36415; 85025

== ENCOUNTER → 2021-04-27 | Outpatient (CLI) | payer BC, MEDICARE ==
[2021-04-24 11:11] VITALS: BP 116/78
--- NOTE | 2021-04-27 13:40 | NUR ---
Patient called requesting a medication refill . Verified name ,, pharmacy, medications, next appointment. Patient denies any new medical problems, constipation or new allergies. patient states his pain is at a 8-9. Ktracts is correct. call transferred to Dr Johnson.,
--- NOTE | 2021-05-04 12:35 | PDOC ---
Progress Note - Pain Clinic Date of Service: DOS: DATE: 04/27/21 TIME: 12:29 Diagnosis: Dx: Lumbar degenerative disease with lumbar spinal stenosis and lumbar spondylosis History or Present Illness: HPI: 51-year-old male via telemedicine visit with identity verified with full name as well as full date of , total time spent 12 minutes Patient calls requesting a refill medication oxycodone 7.5 mg patient is doing very well with his has been on a very stable regimen with this medication without any significant side effects. Patient reports approximately 75% improvement with the medications most days but occasionally only down about 50% improvement but still significant reduction in pain per his estimation. Patient reports still pain in the low back and into the bilateral lower extremities worse with walking standing changing positions as well as try to stay more active and has been exercising daily mostly with stretching. Patient has had appropriate K tracks portables appropriate urinalyses as well to date. We will refill patient's medication oxycodone 7.5 mg with instructions side effects aware discussed for a 30-day supply. Patient will follow up in approximate 30 days as scheduled. Physical Exam: PE: KOFI BYRD MD May 04, 2021 12:35
== END | disposition home or self-care (01) ==
LOC: PNCL 13:36
PROVIDERS: ATTEND Anesthesiology
DX: M51.36 Other intervertebral disc degeneration, lumbar region (principal); M47.816 Spondylosis without myelopathy or radiculopathy, lumbar region; M48.061 Spinal stenosis, lumbar region without neurogenic claudication; I10 Essential (primary) hypertension; G47.30 Sleep apnea, unspecified; E66.9 Obesity, unspecified; K21.9 Gastro-esophageal reflux disease without esophagitis; E11.9 Type 2 diabetes mellitus without complications; E03.9 Hypothyroidism, unspecified; M19.90 Unspecified osteoarthritis, unspecified site; M81.0 Age-related osteoporosis without current pathological fracture; M10.9 Gout, unspecified; Z87.891 Personal history of nicotine dependence; Z79.899 Other long term (current) drug therapy; Z98.890 Other specified postprocedural states; Z88.8 Allergy status to other drugs, medicaments and biological substances
CPT/HCPCS: 99212; G0463

== ENCOUNTER → 2021-05-28 | Outpatient (CLI) | payer BC, MEDICARE ==
[2021-05-01 10:53] VITALS: BP 110/67
--- NOTE | 2021-05-28 13:38 | PDOC ---
Progress Note - Pain Clinic Date of Service: DOS: DATE: 05/28/21 TIME: 13:31 Diagnosis: Dx: Lumbar degenerative disease lumbar spinal stenosis and lumbar spondylosis History or Present Illness: HPI: 51-year-old male returns for follow-up status post medication management with oxycodone 7.5 mg. Patient reports has been doing very well has been on very stable regimen we discussed over the phone with him about a week ago that he had to prescriptions of oxycodone 5mg show up on his K tracks reporting from [facility] emergency department one of 10 pills one of 12pills and reminded him that this was a violation of his narcotic contract. Patient reports there was some confusion when he was discharged his picked up the prescriptions and fill them without looking at them and indeed we did verify that with the patient's spouse as well as his mother. Patient reports he is aware of these under contract with our practice and was not in any way trying to violate this. Patient has had appropriate K tracks reporting in the past as well as well as appropriate urinalyses to date. We discussed this further and will allow an additional chance to remain with the practice as he is currently. Patient voices understanding that if this occurs again that opportunity will not be renewed. Patient reports pain in the low back specially the left leg and left knee has had multiple surgeries and recent revision of the left knee surgery in April as noted. Patient reports a still significant pain and is in a wheelchair today with resting support on the left leg to maintain no flexion of the knee with full leg brace as well. Patient reports also low back pain and some left shoulder pain which has had before but again very well controlled with the oxycodone without any significant side effects. Patient reports about a 60 to 70% improvement with the oxycodone with the back and the shoulder knee as well about 50% improved but still effective and without any side effects. Physical Exam: VS: Blood pressure is 29/70 pulse 94 respirations 18 temperature 97.9 F height and weight were deferred secondary to patient being in wheelchair. PE: PHYSICAL EXAMINATION: GENERAL: The patient is awake, alert, oriented, appropriate, very pleasant in de meanor HEENT: Shows normocephalic, atraumatic. Extraocular movements are intact and symmetrical. Oral cavity: Mucous membranes moist and pink. NECK: Shows anterior throat supple without palpable lymphadenopathy noted. Swallow reflex symmetrical. CHEST: Shows normal on inspection. Breath sounds are clear bilaterally, coarse but no rales rhonchi or wheezes auscultated. HEART: Shows S1, S2 clear. No murmurs auscultated. ABDOMEN: Soft, nontender, nondistended. No palpable organomegaly is noted. BACK: Shows spine grossly in the midline. Normal-appearing cervical lordotic curvature. There is slightly increased thoracic kyphosis, some minor flattening of the lumbar lordotic curvature. Lumbar paraspinous muscles show symmetrical on inspection, on palpation shows some moderate tenderness diffusely throughout the upper, middle and lower distribution of the paraspinous muscles, but without specific trigger points, without radiation of pain. The patient has good rotational motion of the lumbar spine, both laterally as well as extension and flexion without significant difficulty. No tenderness over the spinous processes, sacrum or sacroiliac regions. EXTREMITIES: Lower extremities show deep tendon reflexes 1+ right in the patellar and tendo calcaneus tendon. Motor exam is 4 on a scale of 5 with right dorsiflexion, extension, quadriceps and hamstring flexion. Left lower extremity in straight full leg brace. Peripheral pulses are 1+ posterior tibial. No peripheral edema is noted bilaterally. Lower extremities are warm and dry. SKIN: Shows warm and dry, good turgor. No edema. No sores, rashes or bruising throughout. Procedure: Procedure: Options were discussed with the patient. Patient is alert with use of current medication regimen updated current review of systems updated today as well. We will prescribe electronically, oxycodone 7.5mg 1 tablet every 6 hours as needed pain #120 patient was given instructions well side effects beware with the medication. Also will have urinalysis drawn today as part of routine screening. Patient will follow up in approximate 30 days as scheduled. Medication Injected: Med Injected: None Condition at Discharge: Condition at Discharge: Condition at discharge is stable. KOFI BYRD MD May 28, 2021 13:38
== END | disposition home or self-care (01) ==
LOC: PNCL 13:01
PROVIDERS: ATTEND Anesthesiology
DX: M51.36 Other intervertebral disc degeneration, lumbar region (principal); M47.26 Other spondylosis with radiculopathy, lumbar region; M48.061 Spinal stenosis, lumbar region without neurogenic claudication; I10 Essential (primary) hypertension; G47.30 Sleep apnea, unspecified; E66.9 Obesity, unspecified; K21.9 Gastro-esophageal reflux disease without esophagitis; M19.90 Unspecified osteoarthritis, unspecified site; E11.9 Type 2 diabetes mellitus without complications; E03.9 Hypothyroidism, unspecified; F41.9 Anxiety disorder, unspecified; F32.9 Major depressive disorder, single episode, unspecified; M10.9 Gout, unspecified; Z79.899 Other long term (current) drug therapy; Z98.890 Other specified postprocedural states; Z87.891 Personal history of nicotine dependence; Z72.89 Other problems related to lifestyle; Z88.8 Allergy status to other drugs, medicaments and biological substances
CPT/HCPCS: 99212; G0463

== ENCOUNTER → 2021-06-30 | Outpatient (CLI) | payer BC, MEDICARE ==
[2021-05-01 10:53] VITALS: BP 110/67
--- NOTE | 2021-06-30 13:06 | PDOC ---
Progress Note - Pain Clinic Date of Service: DOS: DATE: 06/30/21 TIME: 13:02 Diagnosis: Dx: Lumbar degenerative disc disease with lumbar spondylosis and spinal stenosis History or Present Illness: HPI: Telemedicine visit today with patient's identity verified with full name as well as full date of , total time spent 11 minutes, telephone voice only. 51-year-old via telemedicine visit today requesting refill of oxycodone 7.5 mg. Patient reports he is doing very well with this and his bout of 70% improvement and reduction in pain overall. Patient reports still some pain in the bilateral shoulder as well as the mid back and low back has recently returned from a vacation to [place] which the activity was increasing the pain fairly significantly but now is back to baseline level, but well-tolerated with medications at current level. Patient has had appropriate K tracks report as well as appropriate urinalyses as well to date. We discussed options and will refill patient's medication for a 30-day supply. Patient was given instructions well side effects aware with the medication with follow-up in approximate 30 days as scheduled. Physical Exam: PE: KOFI BYRD MD Jun 30, 2021 13:06
--- NOTE | 2021-06-30 13:39 | NUR ---
Pt. called clinic requesting refill on his Percocet. Pt. states no new health issues at this time. No new allergies, or side effects from med. Pharmacy and next appt verified. K trax checked. Pt states avg pain level is 7-8/10. Pt aware that Dr. Johnson will contact him with a televisit prior to E-scribing his med. Pt. V/U SBear Bentley RN
== END | disposition home or self-care (01) ==
LOC: PNCL 12:03
PROVIDERS: ATTEND Anesthesiology
DX: M47.816 Spondylosis without myelopathy or radiculopathy, lumbar region (principal); M51.36 Other intervertebral disc degeneration, lumbar region; M48.061 Spinal stenosis, lumbar region without neurogenic claudication; I10 Essential (primary) hypertension; G47.30 Sleep apnea, unspecified; E66.9 Obesity, unspecified; E03.9 Hypothyroidism, unspecified; E11.9 Type 2 diabetes mellitus without complications; M19.90 Unspecified osteoarthritis, unspecified site; M81.0 Age-related osteoporosis without current pathological fracture; F41.9 Anxiety disorder, unspecified; F32.9 Major depressive disorder, single episode, unspecified; K21.9 Gastro-esophageal reflux disease without esophagitis; Z87.891 Personal history of nicotine dependence; Z79.899 Other long term (current) drug therapy; Z98.890 Other specified postprocedural states; Z72.89 Other problems related to lifestyle; Z88.8 Allergy status to other drugs, medicaments and biological substances
CPT/HCPCS: 99212; G0463

== ENCOUNTER → 2021-07-23 | Outpatient (CLI) | payer BC, MEDICARE ==
[2021-05-01 10:53] VITALS: BP 110/67
--- NOTE | 2021-07-23 14:04 | PDOC ---
Progress Note - Pain Clinic Date of Service: DOS: DATE: 07/23/21 TIME: 14:01 Diagnosis: Dx: Lumbar degenerative disease with lumbar spinal stenosis and lumbar spondylosis History or Present Illness: HPI: 51-year-old male returns for follow-up status post medication management with oxycodone, 7.5 mg. Patient reports he is doing very well just with about a 70% improvement with the medications without significant side effects no constipation no dizziness no nausea no dysphoria or itching. Patient reports he still has significant pain in the low back which has been more noticeable recently but did get a new mattress a few days ago which he reports he is sleeping much better now and the medicine does help him sleep at night as well to decrease the pain. Patient reports no other side effects with the medication occasional constipation but is rare and usually can resolve this with increased hydration. Patient reports still significant pain rated a 9 on scale 10 is worse over the past week 8 on average 7 its least is a 7 today in the low back itself also the base of the neck and shoulders patient reports is sharp and cramping in the back stabbing in the neck at times can be constant with weightbearing walking ambulates using a wheelchair for most of his mobility and is in a wheelchair on presentation today. Physical Exam: VS: Blood pressure 147/99 pulse 101 respirations 18 temperature 98.2 F weight is deferred as patient is in wheelchair. PE: PHYSICAL EXAMINATION: GENERAL: The patient is awake, alert, oriented, appropriate, very pleasant in demeanor HEENT: Shows normocephalic, atraumatic. Extraocular movements are intact and symmetrical. NECK: Shows anterior throat supple without palpable lymphadenopathy noted. Swallow reflex symmetrical. CHEST: Shows normal on inspection. Breath sounds are clear bilaterally, coarse and distant but no rales or rhonchi or wheezes auscultated. HEART: Shows S1, S2 clear. No murmurs auscultated. ABDOMEN: Soft, nontender, nondistended. No palpable organomegaly is noted. BACK: Shows spine grossly in the midline. Normal-appearing cervical lordotic curvature. There is mildly increased thoracic kyphosis, some flattening of the lumbar lordotic curvature. Lumbar paraspinous muscles show symmetrical on inspection, on palpation shows some moderate tenderness diffusely throughout the upper, middle and lower distribution of the paraspinous muscles, but without specific trigger points, without radiation of pain. The patient has good rotational motion of the lumbar spine, both laterally as well as extension and flexion without significant difficulty. EXTREMITIES: Lower extremities show deep tendon reflexes 1+ in the patellar and tendo calcaneus tendons. Motor exam is 4 on a scale of 5 with right d orsiflexion, extension, quadriceps and hamstring flexion and 4/5 on the left. Peripheral pulses are 1+ posterior tibial. Patient has full leg brace for left knee immobilization. SKIN: Shows warm and dry, good turgor. No edema. No sores, rashes or bruising throughout. Procedure: Procedure: Options were discussed with the patient. Patient chart was reviewed his current medication regimen updated current review of systems updated today as well. We will refill patient's oxycodone 7.5 mg patient was given instructions well side effects beware with the medication. Patient has had appropriate K tracks report as well as appropriate urinalyses to date as well and we will refill this for 30-day prescription. Patient to follow-up in approximate 30 days as scheduled. Medication Injected: Med Injected: None Condition at Discharge: Condition at Discharge: Condition at discharge is stable. KOFI BYRD MD Jul 23, 2021 14:04
== END | disposition home or self-care (01) ==
LOC: PNCL 12:59
PROVIDERS: ATTEND Anesthesiology
DX: M47.816 Spondylosis without myelopathy or radiculopathy, lumbar region (principal); M48.061 Spinal stenosis, lumbar region without neurogenic claudication; I10 Essential (primary) hypertension; K21.9 Gastro-esophageal reflux disease without esophagitis; M19.90 Unspecified osteoarthritis, unspecified site; E66.9 Obesity, unspecified; E11.9 Type 2 diabetes mellitus without complications; E03.9 Hypothyroidism, unspecified; F41.9 Anxiety disorder, unspecified; F32.9 Major depressive disorder, single episode, unspecified; M81.0 Age-related osteoporosis without current pathological fracture; M10.9 Gout, unspecified; Z87.891 Personal history of nicotine dependence; Z72.89 Other problems related to lifestyle; Z98.890 Other specified postprocedural states; Z88.8 Allergy status to other drugs, medicaments and biological substances
CPT/HCPCS: 99212; G0463

== ENCOUNTER → 2021-08-24 | Outpatient (CLI) | payer BC, MEDICARE ==
[2021-05-01 10:53] VITALS: BP 110/67
--- NOTE | 2021-08-24 09:15 | NUR ---
Patient called requesting medication refill, verified name, , medications, pharmacy,and next appointment. patient denies constipation, new medical problems, states his pain is an8. Ktracts correct ,call transferred to Dr Johnson.
--- NOTE | 2021-08-24 13:04 | PDOC ---
Progress Note - Pain Clinic Date of Service: DOS: DATE: 08/24/21 TIME: 13:03 Diagnosis: Dx: Lumbar degenerative disc disease lumbar spinal stenosis and lumbar spondylosis History or Present Illness: HPI: Telemedicine visit today with patient standing verified with full name as well as full date of , total time spent 12 minutes, telephone voice only. 51-year-old male via telemedicine visit today requesting a refill of oxycodone. Patient has been on very stable regimen with the medication has had appropriate K tracks reporting as well as appropriate urinalyses to date and reports he does very well with his about a 60 to 70% improvement with the pain patient reports still some pain in the low back also in his postsurgical knee which he is having revised in about a month as he has had postoperative infection and extended antibiotic treatment with most recent visit to his orthopedist by his report with a sterile aspirate of the knee joint. Patient reports otherwise he is doing fairly well still significant pain within the knee as well as low back but is well managed with the oxycodone currently. We discussed follow-up in approximately 30 days as well as instructions and side effects beware with the medication. We will electronically prescribed 30-day prescription. KOFI BYRD MD August 24, 2021 13:04
== END | disposition home or self-care (01) ==
LOC: PNCL 08:52
PROVIDERS: ATTEND Anesthesiology
DX: M51.36 Other intervertebral disc degeneration, lumbar region (principal); M48.061 Spinal stenosis, lumbar region without neurogenic claudication; M47.816 Spondylosis without myelopathy or radiculopathy, lumbar region; I10 Essential (primary) hypertension; G47.30 Sleep apnea, unspecified; E66.9 Obesity, unspecified; K21.9 Gastro-esophageal reflux disease without esophagitis; M19.90 Unspecified osteoarthritis, unspecified site; F41.9 Anxiety disorder, unspecified; F32.9 Major depressive disorder, single episode, unspecified; E03.9 Hypothyroidism, unspecified; E11.9 Type 2 diabetes mellitus without complications; M10.9 Gout, unspecified; Z79.899 Other long term (current) drug therapy; Z98.890 Other specified postprocedural states; Z88.8 Allergy status to other drugs, medicaments and biological substances
CPT/HCPCS: 99212; G0463